=== PATIENT | male | born 1940 | race Caucasian/White ===

== ENCOUNTER → 2017-12-24 09:13 | Outpatient (CLI) | payer MEDICARE, SELFPAY ==
--- NOTE | 2017-12-24 09:21 | RAD_ITS ---
STUDY: X-RAY - LEFT SHOULDER REASON FOR EXAM: Male, 77 years old. Pain following recent fall. TECHNIQUE: 4 view(s) of the shoulder. COMPARISON: None. FINDINGS: There is mild degenerative arthrosis of the glenohumeral articulation. There is no widening of the coracoclavicular distance. There is widening of the AC joint, but without displacement of the clavicle or widening of the coracoclavicular distance, consistent with a Type II acromioclavicular joint separation. Normal acromion. Anchors are seen in the humeral head most likely secondary to prior rotator cuff surgery. Normal humeral head and visualized proximal humerus. The soft tissue structures are unremarkable. Normal visualized pulmonary apex. RAD/Shoulder min 2 Views IMPRESSION: Degenerative changes. 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 Electronically Signed: Riky Knapp MD at 12:51 EST Tel [phone], Service support ,
== END ==
PROVIDERS: Family Provider Family Medicine; PCP Family Medicine; Visit Provider Family Medicine
DX: S43.112A Subluxation of left acromioclavicular joint, initial encounter (principal); S46.012A Strain of muscle(s) and tendon(s) of the rotator cuff of left shoulder, initial encounter; S40.012A Contusion of left shoulder, initial encounter; W19.XXXA Unspecified fall, initial encounter; M19.012 Primary osteoarthritis, left shoulder
CPT/HCPCS: 73030

== ENCOUNTER → 2018-04-04 09:30 | Outpatient (CLI) | payer MEDICARE, SELFPAY ==
[2018-04-04 12:31] LABS: Microalbumin,Random Urine 8.6 mg/L (NO RANGE EST.); Microalbumin:Creatinine Ratio 5.6 mg/g CRE (<30 mg/g CRE)
[2018-04-04 12:41] LABS: Anion Gap 7 (5-15); BUN 23 mg/dL (7-18); BUN/Creat Ratio 24.9 RATIO (10-20); Calcium,Total 8.6 mg/dL (8.5-10.1); Chloride 107 mmol/L (98-107); Cholesterol 167 mg/dL (200); Creatinine, Serum 0.92 mg/dL (0.70-1.30); EST Glomerular Filtration Rate 84 mL/min (>60); Est Glom Filt Rate - Afr Amer 102 mL/min (>60); Glucose 91 mg/dL (74-106); High Density Lipoprotein 32 mg/dL; PSA,Total - Annual Screen 1.92 ng/mL (0.00-4.00); Potassium 4.1 mmol/L (3.5-5.1); Sodium Level 140 mmol/L (136-145); Triglycerides 128 mg/dL; Very Low Density Lipoprotein 26 mg/dL (5-40)
== END ==
PROVIDERS: Family Provider Family Medicine; PCP Family Medicine; Visit Provider Family Medicine
DX: Z12.5 Encounter for screening for malignant neoplasm of prostate (principal); I10 Essential (primary) hypertension
CPT/HCPCS: 36415; 80048; 80061; 82043; 82570; 84153; G0103

== ENCOUNTER → 2018-07-12 15:24 | Outpatient (CLI) | payer MEDICARE, SELFPAY | PROVIDERS: Family Provider Family Medicine; PCP Family Medicine; Visit Provider Family Medicine | DX: S46.811A Strain of other muscles, fascia and tendons at shoulder and upper arm level, right arm, initial encounter (principal); X58.XXXA Exposure to other specified factors, initial encounter; M19.011 Primary osteoarthritis, right shoulder | CPT/HCPCS: 73221 ==

== ENCOUNTER → 2018-09-26 14:01 | Outpatient (CLI) | payer MEDICARE, SELFPAY ==
[2018-09-26 15:57] LABS: PSA,Total- Diagnostic 2.48 ng/mL (0.0-4.0)
[2018-09-28 11:28] LABS: PSA, Free 0.04 ng/mL; PSA, Free % 2.1 % (.); PSA, Total Ultrasensitive 1.9 ng/mL (0.0-4.0)
== END ==
PROVIDERS: Family Provider Family Medicine; PCP Family Medicine; Visit Provider Family Medicine
DX: Z85.46 Personal history of malignant neoplasm of prostate (principal)
CPT/HCPCS: 36415; 84153; 84154

== ENCOUNTER → 2019-10-09 12:18 | Outpatient (CLI) | payer MEDICARE, SELFPAY ==
[2019-10-09 14:36] LABS: Absolute Neutrophil Count 3.7 X10^3/uL (2.0-7.7); Basophil# 0.04 X10^3/uL; Basophil% 0.6 % (0-1); Eosinophil# 0.16 X10^3/uL; Eosinophils% 2.5 % (0-5); Hematocrit 46.1 % (40-54); Hemoglobin 15.7 g/dL (13.0-16.5); Lymphocyte % 29.5 % (19-41); Mean Corp Hgb Conc 34.1 g/dL (32-36); Mean Corpuscular Hgb 31.9 pg (27.0-32.0); Mean Corpuscular Volume 93.7 fL (80-94); Mean Platelet Vol. 10.1 fl (6.2-12.0); Monocyte# 0.58 X10^3/uL; NRBC Flagged by Analyzer 0 % (0-5); Neutrophil # 3.74 X10^3/uL (2.7-7.7); Neutrophil % 58.2 % (47-70); Platelet Count 307 K/mm3 (150-450); RBC Distribution Width CV 12.6 % (11.6-14.6); RBC Distribution Width SD 43.4 fl (35.1-43.9); Red Blood Count 4.92 M/mm3 (4.6-6.2); White Blood Count 6.4 K/mm3 (4.4-11.0)
[2019-10-09 14:40] LABS: Microalbumin,Random Urine 5.4 mg/L (NO RANGE EST.)
[2019-10-09 15:20] LABS: ALB/GLOB Ratio 1.1 RATIO (0.9-2.4); AST(SGOT) 18 U/L (15-37); Alanine Aminotransfer ALT/SGPT 20 U/L (16-61); Albumin, Serum 3.8 g/dL (3.2-5.0); Alkaline Phosphatase 87 U/L (45-117); Anion Gap 9 (5-15); BUN 17 mg/dL (7-18); BUN/Creat Ratio 17.7 RATIO (10-20); Chloride 108 mmol/L (98-107); Creatinine, Serum 0.96 mg/dL (0.70-1.30); EST Glomerular Filtration Rate 80 mL/min (>60); Est Glom Filt Rate - Afr Amer 97 mL/min (>60); Globulin 3.6 g/dL (2.2-4.2); Glucose 79 mg/dL (74-106); PSA,Total- Diagnostic 3.63 ng/mL (0.0-4.0); Potassium 3.7 mmol/L (3.5-5.1); Protein, Total 7.4 g/dL (6.4-8.2); Sodium Level 141 mmol/L (136-145)
== END ==
PROVIDERS: Family Provider Family Medicine; PCP Family Medicine; Referring Provider Family Medicine; Visit Provider Family Medicine
DX: I10 Essential (primary) hypertension (principal); C61 Malignant neoplasm of prostate
CPT/HCPCS: 36415; 80053; 82043; 84153; 85025

== ENCOUNTER → 2020-03-14 10:06 | Outpatient (CLI) | payer MEDICARE, SELFPAY ==
[2020-03-14 12:19] LABS: PSA,Total- Diagnostic 4.54 ng/mL (0.0-4.0)
== END ==
PROVIDERS: PCP Family Medicine; Referring Provider Urology; Visit Provider Urology
DX: C61 Malignant neoplasm of prostate (principal)
CPT/HCPCS: 36415; 84153

== ENCOUNTER → 2020-04-02 12:26 | Outpatient (CLI) | payer MEDICARE, SELFPAY ==
--- NOTE | 2020-04-02 12:32 | CT_ITS ---
STUDY: CT ABDOMEN AND PELVIS WITH CONTRAST REASON FOR EXAM: Male, 80 years old. ELEVATED PSA -- BRACHYTHERAPY X15 YEARS AGO -- SURG-L4/L5 DISCECTOMY RADIATION DOSAGE (If Supplied By Facility): CTDIvol = ( 17.14 ) mGy, DLP = ( 1089.15 ) mGycm TECHNIQUE: Transaxial images were obtained from the dome of the diaphragm to the symphysis pubis without oral contrast. IV 100mL Isovue-300 was administered. Sagittal and coronal images were reconstructed. Individualized dose optimization techniques were used for this CT. COMPARISON: None. FINDINGS: Minimal increased linear markings in the posterior medial segments of both lower lobes suggestive of mild scarring. Coronary artery calcification. There is decreased attenuation of the liver consistent with steatosis. Normal gallbladder and extrahepatic biliary system. Normal spleen. Normal pancreas. Normal bilateral adrenal glands. Normal right kidney. Normal left kidney. Normal visualized stomach. Normal small intestine. There are multiple colonic diverticula consistent with diverticulosis. The appendix is visualized and appears normal. There is scattered atherosclerotic calcification of the abdominal aorta and major visceral branches, without a demonstrated aneurysm. Normal inferior vena cava. Normal retroperitoneum. Mild degree of diffuse bladder wall thickening although the urinary bladder is not completely distended. The prostate is not enlarged. 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 There is a small umbilical hernia containing fat. Small benign-appearing bilateral inguinal lymph nodes. There are diffuse degenerative changes of the visualized lumbar spine. 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 Sigmoid diverticulosis. Bladder wall thickening although the bladder is not completely distended at this time. Electronically Signed: Riky Knapp, at 13:15 EDT , Service support ,
[2020-04-02 13:01] LABS: CREATININE FINGERSTICK 0.7 mg/dL (0.70-1.30)
== END ==
PROVIDERS: PCP Family Medicine; Referring Provider Urology; Visit Provider Urology
DX: C61 Malignant neoplasm of prostate (principal)
CPT/HCPCS: 74177; Q9967

== ENCOUNTER → 2020-04-08 10:26 | Outpatient (CLI) | payer MEDICARE, SELFPAY ==
--- NOTE | 2020-04-08 10:38 | NM_ITS ---
CLINICAL: 80-year-old male with reported history of carcinoma of the prostate. WHOLE BODY 99m Tc MDP RADIONUCLIDE BONE SCINTIGRAPHY COMPARISON: CT of the abdomen-pelvis report 04/02/2020 FINDINGS: Following the intravenous administration of 25.0 mCi of 99m Tc MDP, whole body bone images reveal: 1. Increased radiopharmaceutical concentration is identified in the sternoclavicular and acromioclavicular compartments of both shoulders, mid cervical spine posteriorly on the left and right, ninth thoracic vertebra posteriorly on the left, the right elbow, left wrist, knees bilaterally, fifth lumbar vertebra and sacrum, right midfoot, the right ankle, forefoot bilaterally. 2. Subtle increased tracer concentration is observed in the left posterior lateral 10th-11th ribs. 3. The remaining skeletal structures are scintigraphically unremarkable with normal-appearing renal images and urinary bladder activity identified. There is calcification of the costochondral junction. NM/Bone Scan Whole Body IMPRESSION: 1. The increase in radiopharmaceutical concentration defined in the left posterior lateral 10th-11th ribs is consistent with trauma-fracture. 2. Degenerative arthritis appears expressed in the cervical and thoracic spine, lumbar spine and sacrum, bilateral shoulders, right elbow, left wrist, right-left knees, the right mid foot, right ankle and forefoot bilaterally. 3. There is no definitive typical scintigraphic evidence of diffuse axial skeletal metastatic disease on the current examination. Electronically Signed: Mamadou Blunt DO at 19:52 EDT Tel , Service support ,
== END ==
PROVIDERS: PCP Family Medicine; Referring Provider Urology; Visit Provider Urology
DX: C61 Malignant neoplasm of prostate (principal)
CPT/HCPCS: 78306

== ENCOUNTER → 2020-06-20 14:25 | Outpatient (CLI) | payer MEDICARE, SELFPAY ==
[2020-06-20 17:56] LABS: PSA,Total- Diagnostic 5.55 ng/mL (0.0-4.0)
== END ==
PROVIDERS: PCP Family Medicine; Referring Provider Urology; Visit Provider Urology
DX: C61 Malignant neoplasm of prostate (principal)
CPT/HCPCS: 36415; 84153

== ENCOUNTER → 2020-07-09 13:50 | Outpatient (CLI) | payer MEDICARE, SELFPAY ==
--- NOTE | 2020-07-09 14:30 | PET_ITS ---
EXAMINATION: 18F Fluciclovine PET/CT CLINICAL HISTORY: A 80-year-old male with reported history of carcinoma of the prostate presenting for restaging examination. COMPARISON EXAMINATION: None available. PROCEDURE: The patient received an intravenous bolus injection of 9.96 mCi of Axumin (fluciclovine F-18) via the right hand, on the imaging table with the patient in the supine position followed by an intravenous normal saline flush. The patient in the supine position with arms above the head, CT scan for attenuation correction was performed immediately following the bolus injection and left up for 1-2 minutes. The PET scan acquisition was begun within 3-5 minutes following injection from mid thigh to the base of the skull. The total scan time was registered between 20-30 minutes. Axumin (fluciclovine F-18) injection is indicated for positron emission tomography PET imaging in men with suspected prostate cancer recurrence based on elevation of the serum prostatic surface antigen (PSA) levels following prior treatment intervention. HEIGHT: 66 inches. WEIGHT: 198 lbs. REFERENCE SUVs: LIVER: 13.1 BONE MARROW: 2.4 BLOOD POOL: 1.5 FINDINGS: Head/Neck: There is symmetric radiopharmaceutical concentration defined in the bilateral parotid and submandibular glands. Facilitated uptake is noted in the midline skull base associated with physiologic tracer distribution within the pituitary gland. CHEST: There is no quantitative scintigraphic evidence of abnormal increased metabolism within the context of the bilateral hemithorax pulmonary parenchyma, right and left hemithoracic pleural interface, mediastinal structures and thoracic perihilum. No definitive abnormal increased metabolism is noted on review of three axis reconstructions on meticulous inspection of the chest. Normal mediastinal and cardiac blood pool distribution of the radiopharmaceutical is defined. Pertinent chest CT findings are as follows. There is atherosclerotic calcification defined in the thoracic aorta without evidence of dilatation-aneurysm formation. Coronary arterial calcification is observed. Bilateral axillary soft tissue densities with fatty hilus are non-tracer active. Scattered mediastinal soft tissue demonstrates no evidence of increased fluciclovine uptake. There are no parenchymal densities-nodules observed in the right and left hemithorax with discernible increase in radiopharmaceutical concentration. Abdomen/Pelvis: Normal physiologic distribution of the radiopharmaceutical is apparent in the hepatic and splenic parenchyma, pancreas, pancreatic head-tail, both renal units, bladder and visualized intestinal tract. Pertinent abdomen and pelvis CT findings are as follows. Seed placement is defined within the prostate gland without evidence of facilitated 18-F fluciclovine uptake. Colonic diverticulosis is noted without evidence of diverticulitis. Bilateral subcentimeter inguinal soft tissue densities with fatty hilus reveal no evidence of increased radiotracer distribution. There is atherosclerotic calcification defined in the abdominal aorta without evidence of dilatation-aneurysm formation. Pelvic arterial calcification is demonstrated. Skeletal: Degenerative changes are noted in the cervical, thoracic and lumbar spine. There are no sclerotic, mixed sclerotic-lytic and/or primarily lytic changes defined in the appendicular and axial skeletal structures manifesting an increase in radiopharmaceutical uptake. PET/PET/CT Tumor Base -Thigh Subs IMPRESSION: 1. NEGATIVE EXAMINATION. There is no definitive quantitative scintigraphic evidence of recurrent-metastatic/viable neoplasm attributed to the patient?s known prostate carcinoma. (Katherine et al, Journal of Nuclear Medicine 55:1986, 2014). Electronic Signature Mamadou Blunt D.O. Electronically Signed: Mamadou Blunt DO at 10:18 EDT Tel , Service support ,
== END ==
PROVIDERS: PCP Family Medicine; Referring Provider Urology; Visit Provider Urology
DX: C61 Malignant neoplasm of prostate (principal)
CPT/HCPCS: 78815; A9588

== ENCOUNTER → 2020-10-10 11:27 | Outpatient (CLI) | payer MEDICARE, SELFPAY | PROVIDERS: PCP Family Medicine; Referring Provider Urology; Visit Provider Urology | DX: R97.20 Elevated prostate specific antigen [PSA] (principal) | CPT/HCPCS: 36415; 84153 ==

== ENCOUNTER 2020-11-04 05:09 | Day surgery (SDC) | payer MEDICARE, SELFPAY ==
[2020-10-29 14:08] VITALS: BMI 31.8
--- NOTE | 2020-11-04 | COLBX_PTH ---
PATIENT: EMPERATRIZ EPPS LOC: EN U#:[id number] AGE/SX: 80/M ROOM: RE11/04/[address]: Dr. Gregor Crowley MD : 1940 BED: DIS: 11/04/2020 SPEC #: [id number] RECD: 11/04/20 12:28 STATUS: SHERON MARRY #: [id number] ILYA: 11/04/20 00:[address]: Gregor Crowley DEPT: SURGICAL PATHOLOGY RECD BY: Kilo Ingram ENTERED: 11/04/20 12:29 SP TYPE: COLON BX OT DR: Dr. Anurag Dolan MD Tissues: Sigmoid colon biopsy Procedures: Surgery Specimen Level IV HEADER OPERATION: Colonoscopy (MAC) PRE-OP DIAGNOSIS: Colon polyps TISSUE SUBMITTED: Proximal sigmoid biopsy MICROSCOPIC DIAGNOSIS Proximal sigmoid colon, biopsy: Acute colitis. See comment. AM:scott 11/05/20 COMMENT Acute inflammatory cells increased in the mucosa; however, no cryptitis or crypt abscesses are seen. The inflammatory cells are present in the stroma surrounding the glands. Clinical correlation is suggested. MICROSCOPIC DESCRIPTION Slides are reviewed. GROSS DESCRIPTION Received in fixative is one container labeled with the patient's name and designated proximal sigmoid biopsy. The specimen consists of multiple irregular fragments of light riojas soft tissue that in aggregate measure 0.8 x 0.3 x 0.1 cm. The specimen is totally submitted in one cassette. / AM:rg 11/04/20 TC:2 CPT: 15290
[2020-11-04 05:42] VITALS: BP 127/76; PULSE 70; RESP 16; TEMP 36.6; O2SAT 95; BMI 31.6
--- NOTE | 2020-11-04 05:55 | PCM.HP.BLA ---
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 Is patient in pain?: No Allergies No Known Allergies Allergy (Verified 10/29/20 14:11) Medications aspirin 81 mg tablet,delayed release 81 mg PO DAILY 10/29/20 [History Confirmed 10/29/20] bisoprolol fumarate 5 mg tablet 2.5 mg PO DAILY tab 10/29/20 [History Confirmed 10/29/20] ipratropium bromide 0.03 % nasal spray 2 spray INTRANASAL ONCE ml 10/29/20 [History Confirmed 10/29/20] omeprazole 40 mg capsule,delayed release 40 mg PO DAILY cap 10/29/20 [History Confirmed 10/29/20] quinapril 20 mg tablet 20 mg PO DAILY tab 10/29/20 [History Confirmed 10/29/20] PFS Medical History (Updated 10/29/20 @ 14:[address] Gregor Crowley MD) Personal history of colonic polyps (Acute) Hemorrhoids (Acute) Rheumatoid arthritis (Acute) Arthritis (Acute) Osteoarthritis of left knee (Acute) Melnedrez's palsy (Acute) GERD (gastroesophageal reflux disease) (Acute) Hx of malignant neoplasm of prostate (Acute) Hypertension (Chronic) Benign prostate hyperplasia (Acute) Hypercholesterolemia (Acute) Sleep disorder (Acute) Surgical History (Updated 10/29/20 @ 14:06 by Megan Omalley) Hx of colonoscopy (Acute) Hx of hemorrhoidectomy (Acute) Hx of rotator cuff surgery (Acute) Hx of discectomy (Acute) Family History Brother Prostate cancer CVA (cerebral vascular accident) Brother Leukemia Father Hypertension Myocardial infarction Mother CHF (congestive heart failure) Social History (Updated 10/29/20 @ 14:[address] Gregor Crowley MD) Smoking Status: Never smoker second hand exposure: No alcohol intake: current alcohol intake frequency: a few times a month substance use type: does not use caffeine: Yes what type of physical activity do you participate in: bicycling frequency: 3-4 times per week HPI HPI HPI: EMPERATRIZ EPPS, is a 80 M who presents to the office today for surgical consultation regarding surveillance colonoscopy. Patient is 80 years of age. By verbal report he had a colonoscopy performed 2014. By report a polyp was identified at that time. The patient currently does not have any bright red blood per rectum or melena. No abdominal pain. 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 He is very active. He is enjoying a good quality of life. He thinks his paternal grandfather had colon cancer. The patient is referred by Dr. Anurag Dolan and a written copy of my surgical consult and recommendations will return to him HPI HPI HPI: EMPERATRIZ EPPS, is a 80 M who presents to the office today for ROS General General: No weight change, appetite, fatigue, colon cancer or breast cancer Endo Endocrine: No thyroid disease, diabetes mellitus, thyroid cancer, Hair loss, heat intolerance or cold intolerance Skin Skin: No rash or changing moles Musc Musculoskeletal: Yes arthritis and rheumatoid arthritis; no back problems, gout or joint pain Cardio Cardiovascular: Yes high blood pressure; no murmur, pacemaker, heart disease, atrial fibrillation, heart attack, heart stent, palpitations, shortness of breat with exertion or chest pain Psych Psychiatric: No depression, anxiety or hearing voices Resp Respiratory: No shortness of breath, No sleep apnea, No cough, No COPD, No asthma, No emphysema, No wheezing Gastro Gastrointestinal: No abdominal pain, No nausea or vomiting, No diarrhea, No constipation, No blood in stool, Yes acid reflux, Yes hemorrhoids, No ulcers, No gallbladder problem, No black,tarry stools Armani Hematologic: No blood thinners, No blood disorders, No bleeding, No anemia, No blood clots Exam Const General: cooperative, healthy appearing, comfortable, no acute distress Nutritional Appearance: obese Orientation: alert, awake [facility] Head: normal to inspection Resp Effort & Inspection: normal respiratory effort Auscultation: clear to auscultation bilaterally Cardio Rate: regular rate Rhythm: regular rhythm Heart Sounds: no murmurs GI Palpation: soft, no hepatosplenomegaly Auscultation: normal bowel sounds Skin General: no rashes or lesions noted Neuro Cognition: normal cognition Extrem General: no calf tenderness Psych Thought Process: normal Assessment & Plan Problems 1. Personal history of colonic polyps Z86.010 Plan 80-year-old gentleman enjoying a very high quality of life. Reported personal history of colon polyp. I propose for him a colonoscopy with possible biopsy or polypectomy as indicated. He is aware of the technique, benefit, risk, alternatives. He has had an opportunity to ask and have questions answered. Previous colonoscopy was January 2015 by verbal report. Diverticulosis was identified. It was felt to be a sigmoid polyp was identified. Patient has a history of prostate cancer. April 02, 2020 at [facility] scan was obtained showing metallic radiation seen within a nonenlarged prostate. Sigmoid diverticulosis. I propose for the patient a colonoscopy with possible biopsy or polypectomy as indicated. He is aware of the technique, benefit, risk and alternatives. He has had an opportunity to ask and have questions answered. We will schedule procedure at his discretion. He performed well under previous IV sedation. Copy: Dr. Anurag Crowley M.D., F.A.C.S. I have re-examined the patient. There are no clinical changes since date of exam. Procedure Criteria Procedure Type: Elective COVID Risk Discussion: The surgeon/proceduralist and patient have discussed in detail the risk of exposure to and/or potential harm posed by the COVID-19 virus with having a surgery/procedure at this time versus the risk of delaying the surgery/procedure. It is not possible to know either the risk of delaying the surgery or procedure or chance of getting an infection with perfect accuracy, but a joint decision was made between the patient and the surgeon/proceduralist to proceed at this time with the scheduled surgery/procedure as indicated on the consent form.
[2020-11-04] MEDS: Lactated Ringers 1,000 ML 100 ML IV (05:58)
[2020-11-04 06:45] VITALS: BP 100/68; BP 127/76; PULSE 65; RESP 16; TEMP 36.2; O2SAT 95
[2020-11-04 06:50] VITALS: BP 103/71; BP 127/76; PULSE 64; RESP 16; O2SAT 95
--- NOTE | 2020-11-04 06:50 | OP.COLON_ITS ---
Patient Name: Sal Kaur Procedure Date: 11/04/2020 6:12 AM Date of : 1940 Age: 80 Procedure: Colonoscopy Indications: High risk colon cancer surveillance: Personal history of colonic polyps Providers: Gregor Crowley MD Referring MD: Anurag Dolan Medicines: See the Anesthesia note for documentation of the administered medications Patient Profile: Last Colonoscopy: January 2015. Complications: No immediate complications. Procedure: Pre-Anesthesia Assessment: - Prior to the procedure, a History and Physical was performed, and patient medications and allergies were reviewed. The patient's tolerance of previous anesthesia was also reviewed. The risks and benefits of the procedure and the sedation options and risks were discussed with the patient. All questions were answered, and informed consent was obtained. Prior Anticoagulants: The patient has taken no previous anticoagulant or antiplatelet agents. ASA Grade Assessment: II - A patient with mild systemic disease. After reviewing the risks and benefits, the patient was deemed in satisfactory condition to undergo the procedure. After I obtained informed consent, the scope was passed under direct vision. Throughout the procedure, the patient's blood pressure, pulse, and oxygen saturations were monitored continuously. The colonoscope was introduced through the anus and advanced to the cecum, identified by appendiceal orifice and ileocecal valve. The colonoscopy was performed without difficulty. The patient tolerated the procedure well. The quality of the bowel preparation was good. The ileocecal valve and the appendiceal orifice were photographed. Scope In: 6:29:16 AM Scope Withdrawal Time 0 hours 9 minutes 34 seconds Scope Out: 6:41:44 AM Total Procedure Duration Time 0 hours 12 minutes 28 seconds Findings: The digital rectal exam findings include non-thrombosed external hemorrhoids, non-thrombosed internal hemorrhoids, internal hemorrhoids that prolapse with straining, but spontaneously regress to the resting position (Grade II) and flat/ absent prostate. Multiple diverticula were found in the sigmoid colon and descending colon. A localized area of mildly erythematous mucosa was found in the proximal sigmoid colon. This was biopsied with a cold forceps for histology. The exam was otherwise without abnormality. Impression: - Non-thrombosed external hemorrhoids, non-thrombosed internal hemorrhoids, internal hemorrhoids that prolapse with straining, but spontaneously regress to the resting position (Grade II) and a surgically absent prostate found on digital rectal exam. - Diverticulosis in the sigmoid colon and in the descending colon. - Erythematous mucosa in the proximal sigmoid colon. Biopsied. - The examination was otherwise normal. Recommendation: - Discharge patient to home. - Resume previous diet. - Continue present medications. - Repeat colonoscopy is not recommended due to current age (66 years or older) for screening purposes. - Telephone my office for pathology results in 1 week. Procedure Code(s): --- Professional --- 26997, Colonoscopy, flexible; with biopsy, single or multiple Diagnosis Code(s): --- Professional --- Z86.010, Personal history of colonic polyps Z90.79, Acquired absence of other genital organ(s) K64.1, Second degree hemorrhoids K64.4, Residual hemorrhoidal skin tags K63.89, Other specified diseases of intestine K57.30, Diverticulosis of large intestine without perforation or abscess without bleeding CPT copyright 2017 [employer]. All rights reserved. The codes documented in this report are preliminary and upon java developer consultant review may be revised to meet current compliance requirements. Gregor Crowley MD 11/04/2020 6:49:29 AM This report has been signed electronically. Number of Addenda: 0 Note Initiated On: 11/04/2020 6:12 AM
--- NOTE | 2020-11-04 06:50 | OP.CCLET_ITS ---
11/04/2020 Anurag Dolan [address] [facility] [address] [place] [address] Re : Colonoscopy procedure for Sal Kaur Dear Dr. Dolan This procedure was performed on Wednesday, November 04, 2020. My impressions and recommendations are as follows: Impressions : - Non-thrombosed external hemorrhoids, non-thrombosed internal hemorrhoids, internal hemorrhoids that prolapse with straining, but spontaneously regress to the resting position (Grade II) and a surgically absent prostate found on digital rectal exam. - Diverticulosis in the sigmoid colon and in the descending colon. - Erythematous mucosa in the proximal sigmoid colon. Biopsied. - The examination was otherwise normal. Recommendations : - Discharge patient to home. - Resume previous diet. - Continue present medications. - Repeat colonoscopy is not recommended due to current age (66 years or older) for screening purposes. - Telephone my office for pathology results in 1 week. My findings are described in the full procedure note, which is enclosed. If I can be of further assistance, please feel free to contact me at Doctor phone number(s): Work: . Sincerely, Gregor Crowley MD 11/04/2020 6:49:29 AM This report has been signed electronically.
[2020-11-04 06:55] VITALS: BP 103/61; BP 127/76; PULSE 66; RESP 16; O2SAT 93
[2020-11-04 07:00] VITALS: BP 105/94; BP 127/76; PULSE 65; RESP 16; TEMP 36.7; O2SAT 93
[2020-11-04 07:25] VITALS: BP 127/76
== END 2020-11-04 07:30 | disposition home or self-care (01) ==
LOC: EN 05:09 → AC 05:11
PROVIDERS: PCP Family Medicine; Referring Provider Family Medicine; Visit Provider Surgery
PROC: 0DJD8ZZ Inspection of Lower Intestinal Tract, Via Natural or Artificial Opening Endoscopic (ICD-10-PCS; CPT 45378; principal; 2020-11-04 06:25)
DX: Z12.11 Encounter for screening for malignant neoplasm of colon (principal); Z86.010 Personal history of colon polyps; K64.1 Second degree hemorrhoids; K64.4 Residual hemorrhoidal skin tags; K57.30 Diverticulosis of large intestine without perforation or abscess without bleeding; K52.9 Noninfective gastroenteritis and colitis, unspecified; K21.9 Gastro-esophageal reflux disease without esophagitis; Z90.79 Acquired absence of other genital organ(s); Z85.46 Personal history of malignant neoplasm of prostate; Z80.0 Family history of malignant neoplasm of digestive organs; I10 Essential (primary) hypertension; E78.00 Pure hypercholesterolemia, unspecified; M06.9 Rheumatoid arthritis, unspecified; E66.9 Obesity, unspecified; Z68.31 Body mass index [BMI] 31.0-31.9, adult; Z79.82 Long term (current) use of aspirin; Z79.899 Other long term (current) drug therapy; Z20.828 Contact with and (suspected) exposure to other viral communicable diseases
CPT/HCPCS: 45380; 87426; 88305; C9803; J7120; J2405

== ENCOUNTER → 2021-02-12 11:52 | Outpatient (CLI) | payer MEDICARE, SELFPAY ==
[2021-02-12 15:50] LABS: PSA,Total- Diagnostic 5.84 ng/mL (0.0-4.0)
== END ==
PROVIDERS: PCP Family Medicine; Referring Provider Urology; Visit Provider Urology
DX: C61 Malignant neoplasm of prostate (principal)
CPT/HCPCS: 36415; 84153

== ENCOUNTER → 2021-04-23 13:48 | Outpatient (CLI) | payer MEDICARE, SELFPAY ==
[2021-04-14 15:59] VITALS: BMI 32.3
--- NOTE | 2021-04-23 13:51 | EKG12_ITS ---
Test Reason : PRE OP Blood Pressure : / mmHG Vent. Rate : 075 BPM Atrial Rate : 075 BPM P-R Int : 178 ms QRS Dur : 082 ms QT Int : 384 ms P-R-T Axes : 046 -01 022 degrees QTc Int : 428 ms Sinus rhythm with frequent Premature ventricular complexes Otherwise normal ECG Confirmed by JUVENCIO ANDREW, SHANNEN ([id number]), story editor KORTNEY MYERS ([id number]) on 04/24/2021 11:17:14 AM Referred By: Charles Bennett Confirmed By:SHANNEN HENNING MD
== END ==
PROVIDERS: PCP Family Medicine
DX: C43.71 Malignant melanoma of right lower limb, including hip (principal)
CPT/HCPCS: 93005

== ENCOUNTER 2021-06-01 18:59 | Emergency (ER) | payer MEDICARE, SELFPAY ==
[2021-05-29 14:37] VITALS: BMI 31.8
[2021-06-01] VITALS (10 sets, daily range): BP systolic 92–135; BP diastolic 50–85; PULSE 69–84; RESP 15–20; TEMP 36.8–37.9; O2SAT 95–99; BMI 31.3
--- NOTE | 2021-06-01 19:24 | EKG12_ITS ---
Test Reason : DYSRHYTHMIA Blood Pressure : / mmHG Vent. Rate : 078 BPM Atrial Rate : 078 BPM P-R Int : 168 ms QRS Dur : 086 ms QT Int : 384 ms P-R-T Axes : 041 -02 -05 degrees QTc Int : 437 ms Sinus rhythm with Premature atrial complexes Otherwise normal ECG Confirmed by NESTOR ANDREW, BEE ([id number]), dictionary editor KIMBERLY SANCHEZ ([id number]) on 06/04/2021 1:24:49 PM Referred By: MONA Confirmed By:BEE BAEZ MD
--- NOTE | 2021-06-01 19:26 | EX.ED.DYSGE1 ---
HPI History of Present Illness Chief Complaint: Fever Informant: patient and family Onset/Context/Timing Onset: Today Current Severity: Mild Maximum Severity: Mild Narrative Narrative: 81-year-old male being treated at [facility] for melanoma. He had a melanoma resected from his right foot. He did have metastatic spread regionally to his lymph nodes. He had a right inguinal lymph node resection. This was in early April. He has since developed an infection in his right groin. Was hospitalized for 5 days at and was discharged this past Wednesday. He is currently on oral Bactrim. He started getting a fever and feeling worse again today. He denies any cough. He denies any shortness of breath. He denies any abdominal pain. He denies any dysuria. He denies any diarrhea. Prior similar symptoms: Yes Recent Illness/Hospitalization: Yes PFSH PFS Medical History Arthritis Melendrez's palsy Benign prostate hyperplasia GERD (gastroesophageal reflux disease) Hemorrhoids Hx of malignant neoplasm of prostate Hypercholesterolemia Hypertension Malignant melanoma of right heel Osteoarthritis of left knee Personal history of colonic polyps Regional lymph node metastasis present Rheumatoid arthritis Sleep disorder Home Medications aspirin 81 mg tablet,delayed release 81 mg PO DAILY 10/29/20 [History Last Taken 10/28/20] bisoprolol fumarate 5 mg tablet 2.5 mg PO QHS tab 10/29/20 [History Last Taken Unknown] ipratropium bromide 21 mcg (0.03 %) nasal spray 2 spray INTRANASAL PRN PRN ml 10/29/20 [History Last Taken Unknown] omeprazole 40 mg capsule,delayed release 40 mg PO DAILY cap 10/29/20 [History Last Taken Unknown] quinapril 20 mg tablet 20 mg PO DAILY tab 10/29/20 [History Last Taken Unknown] Prostagenics 1 cap PO TID 10/31/20 [History Last Taken Unknown] multivitamin with minerals 1 ea PO DAILY 10/31/20 [History Last Taken Unknown] sulfamethoxazole 800 mg-trimethoprim 160 mg tablet 1 tab PO BID 05/29/21 [History Last Taken Unknown] tramadol 50 mg tablet 50 mg PO Q6H PRN 05/29/21 [History Last Taken Unknown] Allergy/AdvReac Type Severity Reaction Status Date / Time No Known Allergies Allergy Verified 05/29/21 14:48 Family History Brother Prostate cancer CVA (cerebral vascular accident) Brother Leukemia Father Hypertension Myocardial infarction Mother CHF (congestive heart failure) Surgical History Hx of colonoscopy Hx of discectomy Hx of hemorrhoidectomy Hx of rotator cuff surgery Social History Smoking Status: Never smoker second hand exposure: No alcohol intake: current alcohol intake frequency: a few times a month details: OCCASIONALLY substance use type: does not use well-balanced diet: about half the time caffeine: Yes Type: coffee Number of servings: 1 eating out: 1-3 times/week what type of physical activity do you participate in: bicycling frequency: 3-4 times per week duration: 15-30 minutes/day melany/synagogue: Anabaptism seatbelt use: always do you feel safe at home: Yes ROS ROS ED ROS Narrative Fever. Review of Systems ROS Unobtainable: Denies due to encephalopathy Constitutional Constitutional ED: Reports fever(s) Eyes Eyes: Denies change in vision ENT ENT ED: Denies ear pain Cardiovascular Cardiovascular: Denies chest pain Respiratory/Chest Respiratory/Chest: Denies cough or dyspnea Gastrointestinal Gastrointestinal: Denies abdominal pain, diarrhea, nausea or vomiting Genitourinary Genitourinary ED: Denies dysuria Musculoskeletal Musculoskeletal: Denies myalgias Integumentary Denies rash Neurologic Neurologic: Denies headache(s) Psychiatric Psychiatric: Denies depression Endocrine Endocrinology: Denies polyuria Allergic/Immunologic Allergic/Immunologic ED: Denies urticaria EXAM Physical Exam Narrative Exam Narrative: Older male no acute distress. Vital signs stable temperature 100.2. He does not look septic or toxic. He does not look dehydrated. HEENT exam unremarkable. Moist remembers. Neck nontender. Lungs clear to auscultation bilaterally. Heart regular rhythm rate in the 80s. Abdomen soft nontender. Normal bowel sounds no peritoneal signs. Moving all 4 extremities. He has a wound VAC on his right heel appears to be healing nicely there was a prior melanoma resection. His right groin has mild redness and tenderness when he has a known infection. Neurologically is awake and alert. Const Vital Signs: 06/01/21 18:59 06/01/21 19:02 06/01/21 19:17 Temperature 100.2 F H 100.2 F H Temperature Source Temporal Temporal Pulse Rate 84 84 Respiratory Rate 20 H 20 H Respiratory Effort Normal Non-Labored Respiratory Pattern Normal Blood Pressure 134/80 H 134/80 H Blood Pressure Mean 98 98 Pulse Ox 95 95 Oxygen Delivery Method Room Air Room Air 06/01/21 19:36 06/01/21 20:00 06/01/21 20:02 Temperature 100.3 F H 100.1 F H Temperature Source Temporal Temporal Pulse Rate 78 79 79 Respiratory Rate 16 15 Respiratory Effort Respiratory Pattern Blood Pressure 135/77 H Blood Pressure Mean 96 Pulse Ox 99 99 99 Oxygen Delivery Method Room Air Room Air Room Air 06/01/21 21:00 06/01/21 21:33 06/01/21 22:00 Temperature 98.3 F 98.3 F 98.3 F Temperature Source Temporal Temporal Temporal Pulse Rate 70 69 Respiratory Rate 15 16 Respiratory Effort Respiratory Pattern Blood Pressure 111/75 92/67 Blood Pressure Mean 87 75 Pulse Ox 99 99 Oxygen Delivery Method Room Air Room Air 06/01/21 22:24 06/01/21 23:00 Temperature 98.3 F Temperature Source Temporal Pulse Rate 71 Respiratory Rate 16 Respiratory Effort Respiratory Pattern Blood Pressure 116/50 L 116/85 H Blood Pressure Mean 72 95 Pulse Ox 95 Oxygen Delivery Method Room Air Positive well nourished and well developed General Appearance ED: well developed HEENT Reports moist mucous membranes trauma; Negative for tenderness Eyes PERRL and EOMs intact bilaterally Neck no lymphadenopathy, supple and no JVD General: Negative for tenderness Chest Wall inspection of chest normal and palpation of chest normal Resp normal respiratory effort and clear to auscultation bilaterally Cardio regular rate, regular rhythm, S1 normal heart sound, S2 normal heart sound and no murmurs GI normal to inspection, nondistended, normoactive bowel sounds, non-tender, non-distended and no masses Auscultation: normoactive bowel sounds Palpation: soft; Negative for tender Back/Spine no CVA tenderness Extremity normal to inspection Extremity Narrative: Right groin mildly tender. There is a surgical drain in place. There is a wound VAC on his right heel. Calves are nontender without edema or cords. Neuro oriented x3 and CN's II-XII intact bilaterally Sensorium / Orientation: alert; Negative for lethargic or stuporous Motor Exam: strength 5/5 throughout Psych mental status grossly normal Skin no rashes or lesions noted MDM MDM MDM Narrative Medical decision making narrative: 81-year-old male with a fever undergoing a septic work-up. I receive IV fluids and p.o. Tylenol. He has had a recent melanoma resection with an infected lymph node surgical site in his right groin. Repeat exam at 1144 patient is doing well. We discussed all his test results. He has a follow-up appointment scheduled with [facility] on Wednesday. Impression: Fever uncertain etiology History of right groin infection status post lymph node resection History of melanoma resection right foot Lab Data Attestation: I reviewed the patient's lab results. Lab results narrative: Labs are pretty unremarkable. White count of 6.9. Hemoglobin 12.8. PT/INR unremarkable. Electrolytes sodium 131. Normal gap is 7. Creatinine 1.31. Liver enzymes are normal. Lactic acid is normal at 1.2 and UA is normal. Chest x-ray unremarkable. Labs: Laboratory Results - last 24 hr 06/01/21 06/01/21 06/01/21 17:30 19:20 19:20 WBC 6.9 RBC 4.09 L Hgb 12.8 L Hct 37.6 L MCV 91.9 MCH 31.3 MCHC 34.0 RDW Std Deviation 42.9 RDW Coeff of Halley 12.7 Plt Count 454 H MPV 8.6 Immature Gran % (Auto) 0.300 Neut % (Auto) 79.7 H Lymph % (Auto) 11.5 L Lasalle % (Auto) 7.9 Eos % (Auto) 0.3 Baso % (Auto) 0.3 Absolute Neuts (auto) 5.5 Absolute Lymphs (auto) 0.79 L Nucleated RBC % 0 PT 14.4 INR 1.2 APTT 36.2 Sodium 131 L Potassium 4.1 Chloride 100 Carbon Dioxide 24.0 Anion Gap 7 BUN 14 Creatinine 1.31 H Estim Creat Clear Calc 40.59 Est GFR (MDRD) Af Amer 68 Est GFR (MDRD) Non-Af 56 L BUN/Creatinine Ratio 10.7 Glucose 126 H Lactic Acid Calcium 8.6 Total Bilirubin 0.40 AST 24 ALT 39 Alkaline Phosphatase 103 Total Protein 7.4 Albumin 3.1 L Globulin 4.3 H Albumin/Globulin Ratio 0.7 L Urine Color Urine Clarity Urine pH Ur Specific Kincaid Urine Protein Urine Glucose (UA) Urine Ketones Urine Occult Blood Urine Nitrite Urine Bilirubin Urine Urobilinogen Ur Leukocyte Esterase Urine RBC Urine WBC Ur Squamous Epith Cells Urine Bacteria Urine Mucus 06/01/21 06/01/21 19:20 20:10 WBC RBC Hgb Hct MCV MCH MCHC RDW Std Deviation RDW Coeff of Halley Plt Count MPV Immature Gran % (Auto) Neut % (Auto) Lymph % (Auto) Lasalle % (Auto) Eos % (Auto) Baso % (Auto) Absolute Neuts (auto) Absolute Lymphs (auto) Nucleated RBC % PT INR APTT Sodium Potassium Chloride Carbon Dioxide Anion Gap BUN Creatinine Estim Creat Clear Calc Est GFR (MDRD) Af Amer Est GFR (MDRD) Non-Af BUN/Creatinine Ratio Glucose Lactic Acid 1.2 Calcium Total Bilirubin AST ALT Alkaline Phosphatase Total Protein Albumin Globulin Albumin/Globulin Ratio Urine Color Yellow Urine Clarity Sl. Cloudy Urine pH 7.0 Ur Specific Kincaid 1.010 Urine Protein 15 H Urine Glucose (UA) Normal Urine Ketones Negative Urine Occult Blood 25 H Urine Nitrite Negative Urine Bilirubin Negative Urine Urobilinogen Normal Ur Leukocyte Esterase Negative Urine RBC 0 SEEN Urine WBC 0-5 SEEN Ur Squamous Epith Cells 0-5 SEEN Urine Bacteria RARE Urine Mucus 0 SEEN Radiography Chest X-Ray - ED: 1 View, Read by ED Physician, Read by Radiologist, Heart, Lungs, Mediastinum, Bony Structures, No Acute Disease and Chronic Changes Diagnostic Testing: Radiology Impression Chest X-Ray 06/01/21 19:38 IMPRESSION: No radiographic evidence of acute cardiopulmonary disease. at 2006 Reported and signed by: Devin Castro MD Electronically Signed: Devin Castro MD at 20:05 EDT Tel , Service support , Rhythm Strip Rhythm Strip: Sinus Rhythm Rate: 78 Ectopy: PAC(s) EKG Initial EKG: Attestation: I personally reviewed and interpreted this EKG as follows: Interpretation: Sinus Rhythm and No Acute Injury Pattern Comments: Sinus rhythm with PACs. Rate is 78. No acute signs of MS or ischemia. No old EKG available for comparison. Prior EKG tracings: not available for review Prior: No Prior Discharge Plan Triage Chief Complaint: Fever ED Provider: Tesfaye Mckeon Dx/Rx/DC Orders Instructions: ED FUO Adult Prescriptions: No Action omeprazole 40 mg capsule,delayed release(DR/EC) 40 mg PO DAILY RF: 0 bisoprolol fumarate 5 mg tablet 2.5 mg PO QHS RF: 0 ipratropium bromide 0.03 % spray,non-aerosol 2 spray INTRANASAL PRN PRN (Reason: Congestion) RF: 0 quinapril 20 mg tablet 20 mg PO DAILY RF: 0 aspirin [Adult Low Dose Aspirin] 81 mg tablet,delayed release (DR/EC) 81 mg PO DAILY RF: 0 tramadol 50 mg tablet 50 mg PO Q6H PRN (Reason: Pain) RF: 0 sulfamethoxazole-trimethoprim [Bactrim DS] 800-160 mg tablet 1 tab PO BID RF: 0 multivitamin with minerals 1 EACH tablet 1 ea PO DAILY RF: 0 Prostagenics 1 cap PO TID RF: 0 Primary Care Provider: Anurag Dolan Referrals: Anurag Dolan MD [Primary Care Provider] - As Needed Activity Restrictions/Additional Instructions: Plenty of fluids and rest. Tylenol for fever. Follow-up with your physician at on Wednesday. Return if feeling worse. Your test tonight looked real good. Disposition Disposition: Home, Self Care
[2021-06-01] MEDS: 0.9% Normal Saline 1,000 ML 999 ML IV (19:33)
[2021-06-01] MEDS: Acetaminophen 500 MG Tablet 1000 MG PO (19:33)
[2021-06-01 19:35] LABS: Absolute Lymphocyte Count 0.79 X10^3/uL (0.83-4.51); Absolute Neutrophil Count 5.5 X10^3/uL (2.0-7.7); Basophil# 0.02 X10^3/uL; Basophil% 0.3 % (0-1); Eosinophil# 0.02 X10^3/uL; Eosinophils% 0.3 % (0-5); Hematocrit 37.6 % (40-54); Hemoglobin 12.8 g/dL (13.0-16.5); Lymphocyte # 0.79 X10^3/ul (0.83-4.51); Lymphocyte % 11.5 % (19-41); Mean Corpuscular Hgb 31.3 pg (27.0-32.0); Mean Corpuscular Volume 91.9 fL (80-94); Mean Platelet Vol. 8.6 fl (6.2-12.0); Monocyte# 0.54 X10^3/uL; Monocyte% 7.9 % (0-10); NRBC Flagged by Analyzer 0 % (0-5); Neutrophil # 5.47 X10^3/uL (2.7-7.7); Neutrophil % 79.7 % (47-70); Platelet Count 454 K/mm3 (150-450); RBC Distribution Width CV 12.7 % (11.6-14.6); RBC Distribution Width SD 42.9 fl (35.1-43.9); Red Blood Count 4.09 M/mm3 (4.6-6.2); White Blood Count 6.9 K/mm3 (4.4-11.0)
--- NOTE | 2021-06-01 19:38 | RAD_ITS ---
HISTORY: fever EXAMINATION/TECHNIQUE: XR Chest 1 View: Portable upright AP chest x-ray COMPARISON: None FINDINGS: LINES/DEVICES: None. LUNGS: No consolidation, edema or effusion. No pneumothorax. MEDIASTINUM AND CARDIOVASCULAR STRUCTURES: Cardiac silhouette not enlarged. Central airways and mediastinal contour are unremarkable. BONES AND SOFT TISSUES: No acute bony abnormalities. RAD/Chest 1 View (Portable) IMPRESSION: No radiographic evidence of acute cardiopulmonary disease. at 2006 Reported and signed by: Devin Castro MD Electronically Signed: Devin Castro MD at 20:05 EDT Tel , Service support ,
[2021-06-01 19:46] LABS: ALB/GLOB Ratio 0.7 RATIO (0.9-2.4); AST(SGOT) 24 U/L (15-37); Alanine Aminotransfer ALT/SGPT 39 U/L (16-61); Albumin, Serum 3.1 g/dL (3.2-5.0); Alkaline Phosphatase 103 U/L (45-117); Anion Gap 7 (5-15); BUN 14 mg/dL (7-18); BUN/Creat Ratio 10.7 RATIO (10-20); Calcium,Total 8.6 mg/dL (8.5-10.1); Chloride 100 mmol/L (98-107); Creatinine, Serum 1.31 mg/dL (0.70-1.30); EST Glomerular Filtration Rate 56 mL/min (>60); Est Glom Filt Rate - Afr Amer 68 mL/min (>60); Estimated Creatinine Clearance 40.59 ml/min; Globulin 4.3 g/dL (2.2-4.2); Glucose 126 mg/dL (74-106); Potassium 4.1 mmol/L (3.5-5.1); Protein, Total 7.4 g/dL (6.4-8.2); Sodium Level 131 mmol/L (136-145)
[2021-06-01 19:51] LABS: International Normalized Ratio 1.2; Partial Thromboplast Time 36.2 Seconds (24.1-36.2); Prothrombin Time (Protime)PT. 14.4 SECONDS (11.7-14.9)
[2021-06-01 20:19] LABS: Lactic Acid 1.2 mmol/L (0.4-1.9)
[2021-06-01 20:23] LABS: Mucous, Urine 0 SEEN /hpf (<or=2+); Red Blood Cells-Urine 0 SEEN /hpf (0-5)
[2021-06-01 20:30] LABS: Color, Urine Yellow (Yellow); Glucose, Dipstick Normal (Normal); Ketone-Dipstick Negative (Negative); Leukocyte Esterase-Dipstick Negative /ul (Negative); Nitrite-Dipstick Negative (Negative); Occult Blood-Urine 25 /ul (Negative); Protein-Dipstick 15 mg/dl (Negative); Urine Bilirubin Dipstick Negative (Negative); Urine Clarity Sl. Cloudy (Clear); Urine Urobilinogen Normal (Normal)
[2021-06-01 20:43] LABS: Bacteria RARE /hpf (None Seen); Squamous Epithelial Cells - UA 0-5 SEEN /hpf (0-5); White Blood Cells 0-5 SEEN /hpf (0-5)
== END 2021-06-02 00:01 | disposition home or self-care (01) ==
PROVIDERS: Emergency Provider Emergency Medicine; PCP Family Medicine
DX: R50.9 Fever, unspecified (principal); I10 Essential (primary) hypertension; K21.9 Gastro-esophageal reflux disease without esophagitis; Z79.82 Long term (current) use of aspirin; Z79.899 Other long term (current) drug therapy
CPT/HCPCS: 71045; 80053; 81001; 83605; 85025; 85610; 85730; 87040; 87086; 93005; 96360; 96361; 99285; J7030; A4216

== ENCOUNTER 2021-06-19 09:48 | Day surgery (SDC) | payer MEDICARE, SELFPAY ==
[2021-06-10 09:47] VITALS: BMI 31.4
[2021-06-19] VITALS (9 sets, daily range): BP systolic 74–146; BP diastolic 51–76; PULSE 68–79; RESP 16–18; TEMP 36.1–36.4; O2SAT 94–98; BMI 30.3
--- NOTE | 2021-06-19 10:45 | PCM.HP.BLA ---
History and Physical Date of Admission: 06/19/21 Date of Service: 06/10/21 MR#:[id number]: EMPERATRIZ EPPS [facility] #:[id number]:1940 Provider:Rishi Franco/Sex: 81/M [facility] Int[facility] Vital Signs 06/10/21 09:44 06/10/21 09:47 Height 5 ft 6 in Weight: 188 lb BMI 30.3 31.4 BP 116/81 H Blood Pressure Location Rt brachial Position Sitting Respiration 16 Pulse 83 Pulse Source Monitor Temp 97.5 F L Temp Source Temporal Pulse Oximetry (%) 96 Oxygen Delivery Method room air Intake Visit Reasons: PORT PLACEMENT Chief Complaint: Discuss Port placement Dextrine Mixer Required: No Accompanied by: Daughter Is patient in pain?: No Allergies No Known Allergies Allergy (Verified 06/10/21 09:44) Medications aspirin 81 mg tablet,delayed release 81 mg PO DAILY 10/29/20 [History Confirmed 06/10/21] bisoprolol fumarate 5 mg tablet 2.5 mg PO QHS tab 10/29/20 [History Confirmed 06/10/21] ipratropium bromide 21 mcg (0.03 %) nasal spray 2 spray INTRANASAL PRN PRN ml 10/29/20 [History Confirmed 06/10/21] omeprazole 40 mg capsule,delayed release 40 mg PO DAILY cap 10/29/20 [History Confirmed 06/10/21] quinapril 20 mg tablet 20 mg PO DAILY tab 10/29/20 [History Confirmed 06/10/21] Prostagenics 1 cap PO TID 10/31/20 [History Confirmed 06/10/21] multivitamin with minerals 1 ea PO DAILY 10/31/20 [History Confirmed 06/10/21] acetaminophen 500 mg tablet 500 mg PO Q6H PRN 06/05/21 [History Confirmed 06/10/21] lidocaine-prilocaine 2.5 %-2.5 % topical cream 1 applic TOPICAL ONCE PRN 30 Days #30 g 06/05/21 [Rx Confirmed 06/10/21] PFSH Medical History Arthritis Melendrez's palsy Benign prostate hyperplasia GERD (gastroesophageal reflux disease) Hemorrhoids Hx of malignant neoplasm of prostate Hypercholesterolemia Hypertension Malignant melanoma of right heel Osteoarthritis of left knee Personal history of colonic polyps Regional lymph node metastasis present Rheumatoid arthritis Sleep disorder Surgical History History of root canal procedure Hx of colonoscopy Hx of discectomy Hx of hemorrhoidectomy Hx of rotator cuff surgery Family History Brother Prostate cancer CVA (cerebral vascular accident) Brother Leukemia Father Hypertension Myocardial infarction Mother CHF (congestive heart failure) Social History Smoking Status: Never smoker second hand exposure: No alcohol intake: current alcohol intake frequency: a few times a month details: OCCASIONALLY substance use type: does not use well-balanced diet: about half the time caffeine: Yes Type: coffee Number of servings: 1 eating out: 1-3 times/week what type of physical activity do you participate in: bicycling frequency: 3-4 times per week duration: 15-30 minutes/day melany/voodoo: Rastafari seatbelt use: always do you feel safe at home: Yes HPI HPI HPI: EMPERATRIZ EPPS, is a 81 M who presents to the office today for port placement due to malignant melanoma of the right heel with regional lymph node metastasis. Patient states he did suggest complete antibiotics on Wednesday due to infection in the groin were not the lymph nodes were taken. Patient currently has a wound VAC on his right heel states that it is healing well. Is seeing Dr. Souza for immunotherapy. ROS General General: Yes weight change and fatigue; No appetite, colon cancer, breast cancer or weakness HEENT HEENT: No difficulty swallowing, eye injury, eye surgery, swollen glands or hoarseness Endo Endocrine: No thyroid disease, diabetes mellitus, thyroid cancer, Hair loss, heat intolerance or cold intolerance Skin Skin: No rash or changing moles Musc Musculoskeletal: Yes arthritis; No back problems, rheumatoid arthritis, gout or joint pain Cardio Cardiovascular: Yes high blood pressure; No murmur, pacemaker, heart disease, atrial fibrillation, heart attack, heart stent, palpitations, shortness of breat with exertion or chest pain Psych Psychiatric: No depression, anxiety or hearing voices Resp Respiratory: No shortness of breath, No sleep apnea, No cough, No COPD, No asthma, No emphysema and No wheezing Gastro Gastrointestinal: No abdominal pain, Yes nausea or vomiting, No diarrhea, No constipation, No blood in stool, Yes acid reflux, Yes hemorrhoids, No ulcers, No gallbladder problem and No black,tarry stools Armani Hematologic: Yes blood thinners, No blood disorders, No bleeding, No anemia and No blood clots Additional Details: ASA 81mg Neuro Neurologic: Yes numbness, Yes tingling and No weakness Exam Const General: cooperative, healthy appearing, comfortable and no acute distress Neck Neck: normal visual inspection Chest Other: Normal palpation to the bilateral upper chest Resp Effort & Inspection: normal respiratory effort Cardio Rate: regular rate GI Inspection: non-distended Palpation: soft Musc Other: Right groin incision healing well some induration no obvious infection., Right heel with wound VAC in place Skin General: no rashes or lesions noted Neuro General: patient oriented x3 Psych Affect: normal affect COVID (Procedure Consent) Procedure Criteria Procedure Criteria: Yes Elective The surgeon/proceduralist and patient have discussed in detail the risk of exposure to and/or potential harm posed by the COVID-19 virus with having a surgery/procedure at this time versus the risk of delaying the surgery/procedure. It is not possible to know either the risk of delaying the surgery or procedure or chance of getting an infection with perfect accuracy, but a joint decision was made between the patient and the surgeon/proceduralist to proceed at this time with the scheduled surgery/procedure as indicated on the consent form. Assessment and Plan Assessment and Plan (1) Admission for fitting and adjustment of vascular catheter: Status: Acute (2) Malignant melanoma of right heel: Status: Acute (3) Regional lymph node metastasis present: Status: Acute Plan - Dr. Molly Nance MD: I have discussed above with the patient- Port-a-Cath placement. Right IJ possible left --we will plan for June 19 or . Patient is to follow-up with his surgeon on the in [place]. Patient has been counseled as to the risks/benefits of the procedure. I have explained the risks of the surgery, including but not limited to: infection, bleeding, injury to any blood vessels/nerves, injury to lungs (such as pneumothorax or hemothorax and need for chest tube), not having any access, nonfunctioning of port due to thrombosis, infection of port, etc. the patient understands and agrees to proceed. I have answered all the patient's questions to the patient?s satisfaction and the patient has no further questions. Molly Nance M.D. Pager: [phone] [facility] [address] [place] [address], [address] [place] [address] Office: [phone] Plan Details Follow Up: We will schedule port placement Coding Level of Care Code Off vis,new,level 3 Diagnoses Admission for fitting and adjustment of vascular catheter Z45.2 Malignant melanoma of right heel C43.71 Regional lymph node metastasis present C77.9 06/10/21 1022<Electronically signed by Molly Nance MD>Date Molly Nance MD
[2021-06-19] MEDS: Lactated Ringers 1,000 ML 100 ML IV ×2 (10:51→13:10)
[2021-06-19] MEDS: Cefazolin 2 GM in 0.9% Normal Saline 100 ML IV (11:51)
[2021-06-19] MEDS: Bupivacaine Mpf 0.5% 30 ML VIAL (12:20)
[2021-06-19] MEDS: Lidocaine 1% /Epi 1:100 (50ml) 50 ML VIAL (12:20)
--- NOTE | 2021-06-19 12:31 | PCM.OPRPT ---
Report of Operation Date of Procedure: 06/19/21 Pre-Operative Diagnosis: Z 45.2, malignant melanoma Post-Operative Diagnosis: Same Surgery/Procedure Performed:: 1. Placement of right IJ Port-A-Cath 2. Use of fluoroscopy 3. Use of ultrasound. Surgeon: Molly Nance Type of Anesthesia: General/Supplemental Anesthesiologist: Anurag Worthington Special Medications: Ancef 2 g IV x1 Specimen's removed: None Estimated Blood Loss (mL): < 10 cc Description of Procedure: After informed consent was given, the patient was brought to the operating room and placed in the supine position. Appropriate time out protocol was followed. Patient was then given IV conscious sedation for anesthesia. The patient's right upper chest and neck were then prepped with a surgical skin preparation and sterile surgical drapes were placed. After proper landmarks were ascertained, the skin at the upper right chest area was then infiltrated with 1:1 mixture of 1% lidocaine with epinephrine and 0.5% marcaine. A needle trocar was then inserted into the right internal jugular vein with ultrasound guidance-multiple vessels were viewed with u/s and the right IJ was chosen-- and there was good aspiration of venous blood. A wire was then threaded into the needle trocar and this was visualized under fluoroscopy to ensure that the wire was in the superior vena cava. Once this was done, then the needle trocar was removed. A small skin sriram was made with an 11 blade knife at the wire entrance site. The dilator with the introducer sheath attached was then placed over the wire into the right internal jugular vein via the Seldinger technique and this was visualized under fluoroscopy. The dilator and sheath were in proper position as visualized by fluoroscopy. A subcutaneous pocket was then created caudad to the catheter insertion site. A transverse skin incision was made after the skin and subcutaneous tissues were infiltrated with local anesthetic. Blunt dissection was then used to create a space large enough for placement of the subcutaneous port. The catheter was then tunneled into the subcutaneous pocket. The wire and dilator were then removed. The catheter was then threaded into the introducer sheath and was positioned with its tip at the junction of the superior vena cava and the right atrium as visualized under fluoroscopy. The excess catheter was transected. The catheter was then attached to the subcutaneous port using manufacturers guidelines. The catheter was flushed with a heparin saline mixture prior to placement. Hemostasis was carefully controlled with electrocautery. The port was sutured to the subcutaneous fascia using 2-0 Vicryl suture at two sites. The port was then placed in the subcutaneous pocket. The incision were reapproximated with interrupted subdermal 3-0 vicryl sutures. The skin was reapproximated with 3-0 nylon suture in a interrupted fashion. Steristrips were used for reinforcement of the skin closure at IJ insertion site and a sterile opsite dressings were applied. The patient tolerated the procedure well. Implants Used: [employer] PowerPort isp M.R.I. 6Fr Lot lot [id number] Grafts/Implants Used: [employer] PowerPort isp M.R.I. 6Fr Lot lot [id number] Complications none
--- NOTE | 2021-06-19 12:34 | EX.PCM.DISCH ---
Discharge Instructions Procedure Port-A-Cath Diet Discharge Diet: Light diet - advance as tolerated Activity May shower in (days): 5 (Keep port site clean and dry x5 days. Neck incision okay to get wet after 1 day. Okay to lower shower and upper sponge bath. OR okay to taper off port site with a Ziploc bag to shower) Lifting Restrictions: No lifting > 15 pounds for 3 days with the arm on the side of the port Dressing / Incision Call your doctor if your incision/area has: Continuous Slow Oozing, Sudden Increased Bleeding, Increased Pain/ Swelling, Increased Redness, Foul Smelling Discharge and Swelling at the incision site Call your doctor if you observe: Fever of 101 or Higher Change Dressing in: 2 days Follow Up Care Please Follow Up With: Molly Nance MD When: In 10 days for permanent suture removal?call office for appointment Test Results: Test results from this visit will be discussed in further detail at your follow-up appointment, if applicable. Discharge Plan Admission Attending Provider: Molly Nance Primary Care Provider: Anurag Dolan Discharge Orders/Prescriptions Prescriptions: Continued omeprazole 40 mg capsule,delayed release(DR/EC) 40 mg PO DAILY RF: 0 bisoprolol fumarate 5 mg tablet 2.5 mg PO QHS RF: 0 ipratropium bromide 0.03 % spray,non-aerosol 2 spray INTRANASAL PRN PRN (Reason: Congestion) RF: 0 quinapril 20 mg tablet 20 mg PO DAILY RF: 0 aspirin [Adult Low Dose Aspirin] 81 mg tablet,delayed release (DR/EC) 81 mg PO DAILY RF: 0 acetaminophen [Tylenol Extra Strength] 500 mg tablet 500 mg PO Q6H PRN (Reason: Pain) RF: 0 lidocaine-prilocaine 2.5-2.5 % cream 1 applic topical ONCE PRN (Reason: Port access ) 30 Days Qty: 30 RF: 2 multivitamin with minerals 1 EACH tablet 1 ea PO DAILY RF: 0 Prostagenics 1 cap PO BID RF: 0 glucosamine sulfate [Glucosamine] 500 mg Tablet 500 mg PO BID RF: 0 Referrals / Follow Up: Anurag Dolan MD [Primary Care Provider] - Disposition Disposition (needs filled in before D/C Order can be placed): Home, Self Care
--- NOTE | 2021-06-19 12:45 | RAD_ITS ---
STUDY: X-RAY CHEST REASON FOR EXAM: Male, 81 years old. Port -- pacu TECHNIQUE: Single AP portable view of the chest. COMPARISON: Comparison is made with prior study dated 06/01/2021. FINDINGS: A right-sided Port-A-Cath has been placed. The tip is at the junction of the superior vena cava and right atrium. The lungs are clear and expanded. There is no demonstrated pleural abnormality. Normal size heart. Normal mediastinum and jonah. Normal visualized pulmonary arteries. Normal visualized aortic arch and descending thoracic aorta. Normal visualized thoracic spine. Normal visualized ribs, clavicles, and shoulders. There is no demonstrated abnormality of the visualized soft tissue structures of the upper abdomen. RAD/CXR for Line Placement IMPRESSION: The tip of the right-sided portacatheter is at the junction of the superior vena cava and right atrium. Electronically Signed: Riky Knapp MD at 13:06 EDT , Service support ,
== END 2021-06-19 14:09 | disposition home or self-care (01) ==
LOC: SDC 09:48 → AC 09:53
PROVIDERS: PCP Family Medicine; Referring Provider Surgery; Visit Provider Surgery
PROC: (CPT 36561; principal; 2021-06-19 11:10)
DX: Z45.2 Encounter for adjustment and management of vascular access device (principal); C43.71 Malignant melanoma of right lower limb, including hip; C77.9 Secondary and unspecified malignant neoplasm of lymph node, unspecified; I10 Essential (primary) hypertension; E78.00 Pure hypercholesterolemia, unspecified; K21.9 Gastro-esophageal reflux disease without esophagitis; M06.9 Rheumatoid arthritis, unspecified; Z79.82 Long term (current) use of aspirin; Z79.899 Other long term (current) drug therapy
CPT/HCPCS: 00532; 36561; 71045; 77001; J7120

== ENCOUNTER → 2021-09-08 11:09 | Outpatient (CLI) | payer MEDICARE, SELFPAY ==
[2021-06-19 10:26] VITALS: BMI 30.3
--- NOTE | 2021-09-08 11:12 | US_ITS ---
STUDY: ULTRASOUND - US Lower Extremity, limited, joint or other nonvascular extremity 09/09/2021 5:07 PM REASON FOR EXAM: Male, 81 years old. LYMPH NODES R GROIN TECHNIQUE: A superficial ultrasound was performed with real-time and static chappell-scale imaging. COMPARISON: None. FINDINGS: There is no fluid collection. There is no abscess. Multiple right lymph nodes. These measure 10 x 7 mm, 10 x 8 mm, 11 x 9 mm, 20 x 8 mm, 19 x 10 mm, and 19 x 9 mm. US/Ext Non Vasc Limited/Soft Tiss IMPRESSION: Multiple right inguinal lymph nodes. Electronically Signed: Nigel Meredith MD at 17:09 EDT , Service support ,
== END ==
PROVIDERS: PCP Family Medicine
DX: C43.71 Malignant melanoma of right lower limb, including hip (principal)
CPT/HCPCS: 76882

== ENCOUNTER → 2021-10-22 12:26 | Outpatient (CLI) | payer MEDICARE, SELFPAY ==
--- NOTE | 2021-10-22 12:27 | MRI_ITS ---
EXAM: MR HEAD WITHOUT AND WITH INTRAVENOUS CONTRAST CLINICAL INDICATION: NEW ONSET BLURRING OF RIGHT EYE/ H/O MELANOMA TECHNIQUE: Multiplanar and multisequence MR images of the brain were obtained without and with intravenous contrast. This report was created using [employer] report [employer] technology. CONTRAST: IV 18ML Dotarem. COMPARISON: None. FINDINGS: BRAIN AND EXTRA-AXIAL SPACES: No diffusion restriction throughout the brain parenchyma. Abnormal T2 FLAIR hyperintensity foci in the subcortical white matter and periventricular white matter of both cerebral hemispheres, left more than right. Some of the left periventricular white matter T2 FLAIR hyperintense foci are perpendicular to the body of the left lateral ventricle. No intra- or extra-axial hemorrhage. No evidence of acute infarct. No intracranial mass or mass effect. There is preservation of the chappell/white matter interface. Posterior fossa structures are unremarkable. No hydrocephalus. Basal cisterns are patent. SELLA: Unremarkable. Normal sella turcica, pituitary gland, infundibular stalk, optic chiasm and hypothalamus. AUDITORY SYSTEM: Unremarkable. The internal auditory canals are patent. BONES/JOINTS: Unremarkable. No discrete lytic or blastic abnormalities. SINUSES: Unremarkable as visualized. Clear. MASTOID AIR CELLS: Unremarkable as visualized. Clear. ORBITS: Normal orbital globes, extraocular muscles and optic nerve sheath complexes. No abnormal enhancement of the optic nerve sheaths and optic nerves. VASCULATURE: Unremarkable as visualized. Normal flow voids in the major intracranial circulation. OTHER FINDINGS: No enhancing lesions following IV contrast administration. MRI/Brain W/WO Contrast IMPRESSION: 1. Abnormal white matter in both cerebral hemispheres. Considering his age, these are most likely chronic white matter ischemic changes rather than MS plaques. 2. No MRI evidence of intracranial metastatic disease or orbital metastatic disease. 3. No MRI evidence of active MS plaques. 4. Normal MRI of the orbits with and without contrast. 5. No MRI evidence of intracranial metastatic disease or orbital metastases. Electronically Signed: Mati Ahuja MD at 10:58 EST , Service support ,
[2021-10-22] MEDS: 0.9% Saline Lock 10 ML Syringe IV (13:31)
== END ==
PROVIDERS: PCP Family Medicine; Referring Provider Internal Medicine Hematology & Oncology; Visit Provider Internal Medicine Hematology & Oncology
DX: H53.8 Other visual disturbances (principal); C43.71 Malignant melanoma of right lower limb, including hip; C77.9 Secondary and unspecified malignant neoplasm of lymph node, unspecified
CPT/HCPCS: 70553; A9575; A4216

== ENCOUNTER → 2021-11-18 14:36 | Outpatient (CLI) | payer MEDICARE, SELFPAY ==
--- NOTE | 2021-11-18 14:39 | RAD_ITS ---
STUDY: X-RAY CHEST REASON FOR EXAM: Male, 81 years old. COUGH TECHNIQUE: PA and lateral views of the chest. COMPARISON: 06/19/2021 FINDINGS: Right IJ port remains. The lungs are clear and expanded. There is no demonstrated pleural abnormality. Normal size heart. Normal mediastinum and jonah. Normal visualized pulmonary arteries. Normal visualized aortic arch and descending thoracic aorta. There is no demonstrated abnormality of the visualized soft tissue structures of the upper abdomen. RAD/Chest PA and Lateral IMPRESSION: No acute abnormal cardiopulmonary finding. Electronically Signed: Aaron Ritchie MD at 5:38 EST Tel , Service support ,
== END ==
PROVIDERS: PCP Family Medicine; Referring Provider Nurse Practitioner Family; Visit Provider Nurse Practitioner Family
DX: R05.9 Cough, unspecified (principal)
CPT/HCPCS: 71046

== ENCOUNTER 2021-12-30 13:51 | Outpatient (CLI) | payer MEDICARE, SELFPAY ==
--- NOTE | 2021-12-30 14:15 | CT_ITS ---
STUDY: CT CHEST, ABDOMEN T PELVIS WITH CONTRAST REASON FOR EXAM: Male, 81 years old. MELANOMA ON RX RADIATION DOSAGE (If Supplied By Facility): CTDIvol = ( 14.64 ) mGy, DLP = ( 1386.71 ) mGycm TECHNIQUE: Transaxial imaging was performed following intravenous administration of IV 100mL Isovue-300. Individualized dose optimization techniques were used for this CT. COMPARISON: Comparison is made with prior CT scan of the abdomen and pelvis dated 04/02/2020 and prior PET scan dated 04/22/2021. FINDINGS: CHEST A right-sided Port-A-Cath is seen with the tip in the superior vena cava. Mild degree of emphysematous changes. Minimal scarring is seen in the posterior medial segment of the right lower lobe. There is no demonstrated pleural abnormality. There are calcifications of the coronary arteries. There are multiple small lymph nodes within the mediastinum, which are normal in size and morphology most compatible with reactive lymph hyperplasia. Normal hilar regions. Normal unenhanced pulmonary arteries. Normal aorta arch and descending thoracic aorta. There are degenerative changes of the thoracic spine. There is no demonstrated abnormality of the visualized upper abdomen. ABDOMEN Normal liver. Normal gallbladder and extrahepatic biliary system. Normal spleen. Normal pancreas. Normal bilateral adrenal glands. Normal right kidney. Normal left kidney. Normal visualized stomach. Normal small intestine. There are multiple colonic diverticula consistent with diverticulosis. The appendix is visualized and appears normal. There is diffuse atherosclerotic calcification of the abdominal aorta and its major visceral branches, without a demonstrated aneurysm. Normal inferior vena cava. Normal retroperitoneum. Normal abdominal wall. There are degenerative changes of the visualized lumbar spine. Loss of the normal lumbar lordosis. PELVIS Normal urinary bladder. Metallic seeds are seen within the prostate. The prostate is not enlarged. There is no pelvic fluid. There is no pelvic lymphadenopathy or mass lesion. Normal visualized pelvic arteries. CT/CT Chest, Abd, Pel w/Contrast IMPRESSION: Hyperinflation and mild emphysematous changes. No acute abnormality is seen. Electronically Signed: Riky Knapp MD at 14:40 EST ,
== END 2021-12-30 23:59 | disposition short-term general hospital (02) ==
PROVIDERS: PCP Family Medicine; Referring Provider Internal Medicine Hematology & Oncology; Visit Provider Internal Medicine Hematology & Oncology
DX: C43.71 Malignant melanoma of right lower limb, including hip (principal)
CPT/HCPCS: 71260; 74177; J7040; Q9967; A4216

== ENCOUNTER 2021-12-31 09:40 | Outpatient (RCR) | payer MEDICARE, SELFPAY ==
[2021-12-31 10:17] VITALS: BP 114/95; PULSE 73; RESP 16; TEMP 36.1; BMI 32.3
--- NOTE | 2021-12-31 12:21 | HP.PCM_ITS ---
History of Present Illness Date of Service: 12/31/21 Chief Complaint: Follow-up on the right heel wound History of Wound: 81-year-old white male, that had been treated for plantar wart to the right heel x2. The staff development coordinator rn then thought something was finally biopsied it and ended up being melanoma. Patient had a big extraction of the heel down to the dermis and sentinel nodes in the right groin removed. This was back in 2020 he then proceeded with a wound VAC that closed him and now he is closed with some dry skin over the area. Patient is concerned that this is not good tissue and that may be something is wrong with it. Patient does have some hardened skin and over it very thin callu s developing. I told the patient its more of an overactive skin I suggested he use these growth but nothing bad. Pads when he is walking that could be irritating it. And I also suggested he start smearing AmLactin cream on it to soften the skin. Otherwise it is closed and he is does not really need to come here anymore he can follow-up as needed. [facility] Medical History (Updated 12/31/21 @ 12:27 by Kylah López NP, [facility]) Alcohol use Arthritis Melendrez's palsy Benign prostate hyperplasia Cancer Cough Creatinine elevation CRF (chronic renal failure) Drug rash Encounter for immunotherapy Gastric reflux GERD (gastroesophageal reflux disease) Hemorrhoids History of brachytherapy Hx of malignant neoplasm of prostate Hypercholesterolemia Hypertension Hypothyroidism (acquired) Injury of back Malignant melanoma of right heel Non-smoker Open wound of right heel Osteoarthritis of left knee Personal history of colonic polyps Regional lymph node metastasis present Rheumatoid arthritis Sleep disorder Squamous cell carcinoma of skin Wears glasses Home Medications aspirin 81 mg tablet,delayed release 81 mg PO DAILY 10/29/20 [History Last Taken 10/28/20] bisoprolol fumarate 5 mg tablet 2.5 mg PO QHS tab 10/29/20 [History Last Taken Unknown] ipratropium bromide 21 mcg (0.03 %) nasal spray 2 spray INTRANASAL PRN PRN ml 10/29/20 [History Last Taken Unknown] omeprazole 40 mg capsule,delayed release 40 mg PO DAILY cap 10/29/20 [History Last Taken 06/19/21 08:00 40 MG] multivitamin with minerals 1 ea PO DAILY 10/31/20 [History Last Taken Unknown] acetaminophen 500 mg tablet 500 mg PO Q6H PRN 06/05/21 [History Last Taken Unknown] lidocaine-prilocaine 2.5 %-2.5 % topical cream 1 applic TOPICAL ONCE PRN 30 Days #30 g 06/05/21 [Rx Last Taken Unknown] triamcinolone acetonide 0.1 % topical cream applic TOPICAL 09/15/21 [History Last Taken Unknown] amlodipine 5 mg tablet 5 mg PO DAILY 10/06/21 [History Last Taken Unknown] glucosamine sulfate 500 mg tablet 500 mg PO DAILY tab 11/04/21 [History Last Taken Unknown] levothyroxine 75 mcg tablet 75 mcg PO DAILY #30 tab 11/04/21 [Rx Last Taken Un known] zinc 50 mg tablet 50 mg PO DAILY 12/29/21 [History Last Taken Unknown] Allergy/AdvReac Type Severity Reaction Status Date / Time No Known Allergies Allergy Verified 12/29/21 10:26 Family History Brother Prostate cancer CVA (cerebral vascular accident) Brother Leukemia Father Hypertension Myocardial infarction Mother CHF (congestive heart failure) Surgical History History of root canal procedure Hx of colonoscopy Hx of discectomy Hx of foot operation Hx of hemorrhoidectomy Hx of rotator cuff surgery Social History Smoking Status: Never smoker second hand exposure: No alcohol intake: current alcohol intake frequency: a few times a month details: OCCASIONALLY substance use type: does not use well-balanced diet: about half the time caffeine: Yes Type: coffee Number of servings: 1 eating out: 1-3 times/week what type of physical activity do you participate in: bicycling frequency: 3-4 times per week duration: 15-30 minutes/day melany/congregation: [employer] seatbelt use: always do you feel safe at home: Yes ROS Constitutional Constitutional: Reports systems reviewed and no addt'l complaints, except as documented Eyes Eyes: Reports systems reviewed and no addt'l complaints, except as documented ENT HEENT: Reports systems reviewed and no addt'l complaints, except as documented Cardiovascular Cardiovascular: Reports systems reviewed and no addt'l complaints, except as documented Respiratory/Chest Respiratory/Chest: Reports systems reviewed and no addt'l complaints, except as documented Gastrointestinal Gastrointestinal: Reports systems reviewed and no addt'l complaints, except as documented Genitourinary Genitourinary: Reports systems reviewed and no addt'l complaints, except as documented Musculoskeletal Musculoskeletal: Reports systems reviewed and no addt'l complaints, except as documented Integumentary Integumentary: Reports skin ulcer Neurologic Neurologic: Reports systems reviewed and no addt'l complaints, except as documented Psychiatric Psychiatric: Reports systems reviewed and no addt'l complaints, except as documented Endocrine Endocrinology: Reports systems reviewed and no addt'l complaints, except as documented Hematologic/Lymphatic Hematologic/Lymphatic: Reports systems reviewed and no addt'l complaints, except as documented Allergic/Immunologic Allergic/Immunologic: Reports systems reviewed and no addt'l complaints, except as documented Vital Signs Vital Signs Vital Signs: 12/31/21 10:17 Temperature 97 F L Temperature Source Temporal Pulse Rate 73 Respiratory Rate 16 Blood Pressure 114/95 H Blood Pressure Mean 101 Blood Pressure Source Monitor Blood Pressure Position Supine Blood Pressure Location Right Arm Oxygen Delivery Method Room Air Weight Weight: 200 lb Body Mass Index (BMI) 32.3 Physical Exam Const oriented x3 General Appearance: cooperative Exam Limitations: no limitations HEENT normocephalic Head and Scalp: normal to inspection Face and Sinus: normal facial exam Nose: external nose normal General Ear: hearing grossly impaired External Ear: external ears normal Mouth: oral and palatal mucosa normal Eyes PERRL General Eye: normal appearance of both eyes Neck full ROM General: normal visual inspection Resp normal respiratory effort Effort and Inspection: able to speak in complete sentences Auscultation: clear to auscultation bilaterally Cardio regular rate and regular rhythm Palpation: normal PMI Rate: regular rate Rhythm: regular rhythm GI Auscultation: normoactive bowel sounds Palpation: soft and no hepatosplenomegaly external exam normal Back/Spine Cervical Spine: cervical ROM normal Thoracic Spine / Upper Back: normal to inspection Lumbar Spine / Lower Back: normal to inspection Extremity normal to inspection General Extremity: normal exam except as noted Skin no rashes or lesions noted General Skin Exam: other Well-healed ulcer of the right heel with xerosis Neuro oriented x3 Psych Appearance: grossly normal Speech: normal speech Thought Content: normal thought content Judgement: judgement good Debridement Note Debridement Note Wound debrided: Right heel No debridement was completed: No debridement was completed today Post-Debridement Measurements and Additional Note: Post-Debridement Measurements/Treatment WC - Nurse 1 - General Ulcer Assessment Start: 12/31/21 10:16 Freq: Status: Active Protocol: SHAYNE Activity Type Activity Date Activity User E-Sign Co-Sign Detail Recorded Client Recorded Date Recorded By Document 12/31/21 10:[address] [facility] [id number] 12/31/21 10:[address] [facility] 12/31/21 10:17 WC - Today's Visit Information Type of service Initial Visit Arrival Mode Ambulatory Transfer Assistance None Patient Identification Verified (Name & Yes ) Patient Requires Transmission-Based No Precautions Height and Weight Height 5 ft 6 in Weight 200 lb Weight in Pounds 200.0 lbs Weight Measurement Method Estimated by Patient Body Mass Index (BMI) 32.3 BMI Classification Obese BSA - Sharon 2.00 Vital Signs Temperature (97.8 F-99.1 F) 97 F L Temperature Source Temporal Pulse Rate (60-100) 73 Pulse Location Monitor Respiratory Rate (12-18) 16 Respiratory rate source Observation Oxygen Delivery Method Room Air Blood Pressure (90/60-120/80) 114/95 H Blood Pressure Mean 101 Source Monitor Position Supine Blood Pressure Location Right Arm History Since Last Visit- (Skip if this is Patient's initial visit) Left Footwear Regular Shoe Right Footwear Regular Shoe Pain Scale: 0-10 Numeric Is Patient Pain Free? Yes Communication Assessment Preferred language Estonian Interior Wirer Required No Able to Read Yes Able to Write Yes Communication Tools None Right Hearing Abillity Normal Left Hearing Abillity Normal Visual Assistive Devices Glasses Teaching Assessment Preferences Verbal,Written, Audio/Visual, Demonstration Barriers to Learning None Readiness To Learn Excellent Willingness to Engage in Self Management High Activies Readiness to Engage in Self Management High Activities Anxiety Level Calm Cooperation Cooperative Perception Coherent Interest in Health Problem Asks Questions Education Importance Acknowledges Need Does Patient Smoke tobacco or other No substances Smoking Status Never smoker Is Patient Diabetic No Functional Assessment Recent Decline in Ability to Perform Denies Any Declines Culture/Samaritan/C[employer] Cultural/Samaritan Needs that may affect No Treatment Plan Teaching: Wound Center *Welcome to the Wound Center -Person Taught Patient -Teaching Method Discussion -Response to teaching Verbalize understanding Welcome to the Wound Care Center English BAHENA - Nurse 1 - General Ulcer Measurement Start: 12/31/21 10:16 Freq: Status: Active Protocol: Activity Type Activity Date Activity User E-Sign Co-Sign Detail Recorded Client Recorded Date Recorded By Document 12/31/21 10:17 BMF [id number] 12/31/21 10:25 BMF Edit Result 12/31/21 10:17 BMF (1) [id number] 12/31/21 10:35 BMF (1) #1- R HEEL - Wound Comment(s) => MT RN TO COMPLETE REMAINDER OF PT ASSESSMENTS 12/31/21 10:17 Wound Center Nurse 1 #1- R HEEL -Combined with other wound No -Current Size (cm) - Length 0.1 -Current Size (cm) - Width 0.1 -Current Size (cm) - Depth 0.1 -Total Square Cm 0.01 -Date of Last Picture (Recall this 12/31/21 field) -Photo Taken Yes -Epithelialization None Present -Tunneling No -Undermining/Tunneling No -Circular Undermining No -Exudate Amt None Present -Wound Margin Distinct, Outline Attached -Texture (Cee-wound Skin Appearance) Assessed,Callus ,Scarring -Moisture (Cee-wound Skin Appearance) Assessed,Dry/ Scaly -Color (Cee-wound Skin Appearance) Assessed -Temperature (Cee-wound Skin No Abnormality Appearance) (Pt Warm) -Tenderness on Palpation (Cee-wound No Skin Appearance) -Ulcer Cleansing Rinsed/ Irrigated with Saline -Foul Odor after Cleansing No -Anesthetic Used 5% Lidocaine Gel -Wound Comment(s) MT RN TO COMPLETE REMAINDER OF PT ASSESSMENTS WC - Nurse 2 - General Ulcer CM Notes Start: 12/31/21 10:16 Freq: Status: Active Protocol: Activity Type Activity Date Activity User E-Sign Co-Sign Detail Recorded Client Recorded Date Recorded By Document 12/31/21 11:03 MW [id number] 12/31/21 11:09 MW 12/31/21 11:03 Wound Center Nurse 2 -Time 11:03 -Correct Patient Yes -Correct Side, Site, Position Yes -Correct Procedure Yes -Procedure Performed No -Post Debridement (cm) - Length 0 -Post Debridement (cm) - Width 0 -Post Debridement (cm) - Depth 0 -Total Square (Post) (cm) 0 -Tunneling No -Undermining/Tunneling No -Circular Undermining No -Wound/Ulcer Outcome Healed- Epithelialized Pain Scale: 0-10 Numeric Is Patient Pain Free? Yes WC - Nurse 3 - General Ulcer D/C NN Start: 12/31/21 10:16 Freq: Status: Active Protocol: Activity Type Activity Date Activity User E-Sign Co-Sign Detail Recorded Client Recorded Date Recorded By Document 12/31/21 11:[address] [facility] [id number] 12/31/21 11:[address] [facility] 12/31/21 11:21 Wound Care Nurse 3 #1- R HEEL -Primary Dressing Applied Mepilex Border -Mepilex Border 1 Pain Scale: 0-10 Numeric Is Patient Pain Free? Yes WC - Visit Discharge Discharge Condition Stable Ambulatory Status Ambulatory Transportation Private Auto Lab / Micro Data Attestation: I reviewed the patient's lab results. Assessment/Plan Assessment/Plan (1) Malignant melanoma of right heel: CODE(S): C43.71 - Malignant melanoma of right lower limb, including hip (2) Open wound of right heel: CODE(S): S91.301A - Unspecified open wound, right foot, initial encounter QUALIFIERS: Encounter type: initial encounter Qualified Code(s): S91.301A - Unspecified open wound, right foot, initial encounter PLAN: Right heel resolved has developed some xerosis. Suggested heel pads, and AmLactin cream to the right heel every day. Patient is discharged from the wound center and can follow-up as needed
== END 2021-12-31 13:15 | disposition home or self-care (01) ==
LOC: WC 09:40
PROVIDERS: PCP Family Medicine; Visit Provider Nurse Practitioner
DX: Z09 Encounter for follow-up examination after completed treatment for conditions other than malignant neoplasm (principal); C79.89 Secondary malignant neoplasm of other specified sites; M06.9 Rheumatoid arthritis, unspecified; C43.71 Malignant melanoma of right lower limb, including hip; Z79.82 Long term (current) use of aspirin; I12.9 Hypertensive chronic kidney disease with stage 1 through stage 4 chronic kidney disease, or unspecified chronic kidney disease; E78.00 Pure hypercholesterolemia, unspecified; N18.9 Chronic kidney disease, unspecified; Z79.899 Other long term (current) drug therapy; N40.0 Benign prostatic hyperplasia without lower urinary tract symptoms; M19.90 Unspecified osteoarthritis, unspecified site; K21.9 Gastro-esophageal reflux disease without esophagitis; E03.9 Hypothyroidism, unspecified; Z79.890 Hormone replacement therapy; L85.3 Xerosis cutis
CPT/HCPCS: 99203; G0463

== ENCOUNTER 2022-02-20 18:19 | Observation (INO) | payer MEDICARE, SELFPAY ==
[2022-02-20 18:22] VITALS: BP 170/119; PULSE 84; PULSE 95; RESP 17; TEMP 36.5; O2SAT 95; O2SAT 97; BMI 32.4
--- NOTE | 2022-02-20 18:38 | EKG12_ITS ---
Test Reason : WEKANESS Blood Pressure : / mmHG Vent. Rate : 093 BPM Atrial Rate : 070 BPM P-R Int : 000 ms QRS Dur : 090 ms QT Int : 384 ms P-R-T Axes : 000 002 -44 degrees QTc Int : 477 ms Atrial fibrillation Nonspecific ST and T wave abnormality Prolonged QT Abnormal ECG Confirmed by JUVENCIO ANDREW, SHANNEN ([id number]), department editor KORTNEY MYERS ([id number]) on 02/24/2022 11:06:59 AM Referred By: Confirmed By:SHANNEN HENNING MD
--- NOTE | 2022-02-20 18:39 | EDS_ITS ---
HPI History of Present Illness Chief Complaint: Weakness Informant: patient Onset/Context/Timing Onset: Today Current Severity: Mild Maximum Severity: Moderate Narrative Narrative: Patient present secondary to weakness along with nausea and vomiting. He states he felt well when he went to bed last evening. When he woke up this morning he just felt off and weak. Approximate 2 hours prior to arrival he developed nausea and vomiting. He does report a slight dizziness or vertigo sensation when he first stands. He denies chest pain or palpitations. He denies abdominal pain. No urinary symptoms. [facility] Medical History Alcohol use Arthritis Melendrez's palsy Benign prostate hyperplasia Cancer Cough Creatinine elevation CRF (chronic renal failure) Drug rash Encounter for immunotherapy Gastric reflux GERD (gastroesophageal reflux disease) Hemorrhoids History of brachytherapy Hx of malignant neoplasm of prostate Hypercholesterolemia Hypertension Hypothyroidism (acquired) Injury of back Malignant melanoma of right heel Non-smoker Open wound of right heel Osteoarthritis of left knee Personal history of colonic polyps Regional lymph node metastasis present Rheumatoid arthritis Sleep disorder Squamous cell carcinoma of skin Wears glasses Home Medications aspirin 81 mg tablet,delayed release 81 mg PO DAILY 10/29/20 [History Last Taken 10/28/20] bisoprolol fumarate 5 mg tablet 2.5 mg PO QHS tab 10/29/20 [History Last Taken Unknown] ipratropium bromide 21 mcg (0.03 %) nasal spray 2 spray INTRANASAL PRN PRN ml 10/29/20 [History Last Taken Unknown] omeprazole 40 mg capsule,delayed release 40 mg PO DAILY cap 10/29/20 [History Last Taken 06/19/21 08:00 40 MG] multivitamin with minerals 1 ea PO DAILY 10/31/20 [History Last Taken Unknown] acetaminophen 500 mg tablet 500 mg PO Q6H PRN 06/05/21 [History Last Taken Unknown] triamcinolone acetonide 0.1 % topical cream 1 applic TOPICAL DAILY PRN 09/15/21 [History Last Taken Unknown] amlodipine 5 mg tablet 5 mg PO DAILY 10/06/21 [History Last Taken Unknown] glucosamine sulfate 500 mg tablet 500 mg PO DAILY tab 11/04/21 [History Last Taken Unknown] zinc 50 mg tablet 50 mg PO DAILY 12/29/21 [History Last Taken Unknown] calcium carbonate 600 mg calcium (1,500 mg) tablet 600 mg PO DAILY 01/20/22 [History Last Taken Unknown] lidocaine-prilocaine 2.5 %-2.5 % topical cream 1 applic TOPICAL ONCE PRN 30 Days #30 g 02/09/22 [Rx Last Taken Unknown] levothyroxine 112 mcg tablet 112 mcg PO DAILY #30 tab 02/10/22 [Rx Last Taken Unknown] Allergy/AdvReac Type Severity Reaction Status Date / Time No Known Allergies Allergy Verified 02/20/22 18:20 Family History Brother Prostate cancer CVA (cerebral vascular accident) Brother Leukemia Father Hypertension Myocardial infarction Mother CHF (congestive heart failure) Surgical History History of root canal procedure Hx of colonoscopy Hx of discectomy Hx of foot operation Hx of hemorrhoidectomy Hx of rotator cuff surgery Social History Smoking Status: Never smoker second hand exposure: No alcohol intake: current alcohol intake frequency: a few times a month details: OCCASIONALLY substance use type: does not use well-balanced diet: about half the time caffeine: Yes Type: coffee Number of servings: 1 eating out: 1-3 times/week what type of physical activity do you participate in: bicycling frequency: 3-4 times per week duration: 15-30 minutes/day melany/temple: Restoration seatbelt use: always do you feel safe at home: Yes ROS ROS ED Constitutional Constitutional ED: Denies chills or fever(s) Eyes Eyes: Denies change in vision ENT ENT ED: Denies sore throat Cardiovascular Cardiovascular: Denies chest pain Respiratory/Chest Respiratory/Chest: Denies cough or dyspnea Gastrointestinal Gastrointestinal: Reports nausea and vomiting; Denies abdominal pain or diarrhea Genitourinary Genitourinary ED: Denies dysuria Musculoskeletal Musculoskeletal: Denies back pain or neck pain Integumentary Denies rash Neurologic Neurologic: Reports weakness; Denies headache(s) Allergic/Immunologic Allergic/Immunologic ED: Denies urticaria EXAM Physical Exam Const Vital Signs: 02/20/22 18:22 02/20/22 19:54 Temperature 97.7 F L Temperature Source Oral Pulse Rate 95 87 Respiratory Rate 17 25 H Respiratory Effort Normal Non-Labored Respiratory Pattern Normal Blood Pressure 170/119 H 125/96 H Blood Pressure Mean 136 105 Pulse Ox 97 97 Oxygen Delivery Method Room Air Room Air Positive well nourished and well developed General Appearance ED: well developed HEENT Reports moist mucous membranes Eyes PERRL and EOMs intact bilaterally Neck supple Chest Wall inspection of chest normal and palpation of chest normal Resp normal respiratory effort and clear to auscultation bilaterally Cardio regular rate and regular rhythm GI non-tender Auscultation: normoactive bowel sounds Palpation: soft Extremity normal to inspection Neuro oriented x3 Sensorium / Orientation: alert Psych mental status grossly normal Skin no rashes or lesions noted MDM MDM MDM Narrative Medical decision making narrative: EKG, chest x-ray, urinalysis, lab work obtained. Patient given Reglan for nausea. Lab Data Attestation: I reviewed the patient's lab results. Labs: Laboratory Results - last 24 hr 02/20/22 02/20/22 02/20/22 18:40 19:40 19:40 WBC 6.9 RBC 4.29 L Hgb 14.4 Hct 39.7 L MCV 92.5 MCH 33.6 H MCHC 36.3 H RDW Std Deviation 39.8 RDW Coeff of Halley 11.8 Plt Count 292 MPV 9.2 Immature Gran % (Auto) 0.400 Neut % (Auto) 73.7 H Lymph % (Auto) 18.3 L [place] % (Auto) 5.6 Eos % (Auto) 1.6 Baso % (Auto) 0.4 Absolute Neuts (auto) 5.1 Absolute Lymphs (auto) 1.27 Nucleated RBC % 0 Sodium 137 Potassium 3.1 L Chloride 104 Carbon Dioxide 27.0 Anion Gap 6 BUN 19 H Creatinine 1.19 Estim Creat Clear Calc 43.93 Est GFR (MDRD) Af Amer 75 Est GFR (MDRD) Non-Af 62 BUN/Creatinine Ratio 16.0 Glucose 153 H Calcium 8.9 Total Bilirubin 0.50 Direct Bilirubin 0.14 AST 20 ALT 19 Alkaline Phosphatase 90 Troponin I High Sens 9 Total Protein 7.6 Albumin 3.7 Globulin 3.9 Lipase 79 Urine Color Yellow Urine Clarity Clear Urine pH 7.0 Ur Specific [place] 1.010 Urine Protein Negative Urine Glucose (UA) Normal Urine Ketones 5 H Urine Occult Blood Negative Urine Nitrite Negative Urine Bilirubin Negative Urine Urobilinogen Normal Ur Leukocyte Esterase Negative Urine RBC 0-5 SEEN Urine WBC 0 SEEN Ur Squamous Epith Cells 0 SEEN Urine Bacteria 0 SEEN Urine Mucus 0 SEEN Radiography Chest X-Ray - ED: 1 View, Read by ED Physician, Chronic Changes and No Infiltrates EKG Initial EKG: Attestation: I personally reviewed and interpreted this EKG as follows: Interpretation: Atrial Fibrillation (Atrial fibrillation with ventricular rate of 93 bpm. Nonspecific T wave flattening in the lateral leads.) Treatment and Re-Evaluation Narrative: On repeat evaluation patient feels improved. He denies nausea but states he still feels woozy. We discussed atrial fibrillation. He states he has had some palpitations in the past but is never been diagnosed with A. fib. Other lab work is remarkable only for potassium low at 3.1. Urinalysis negative. Patient will get IV potassium replacement as well as a dose of Lovenox. His heart rate is well controlled in the 80s. I will speak with hospitalist regarding admission. Discharge Plan Triage Chief Complaint: Weakness ED Provider: Mecca Fall Dx/Rx/DC Orders Clinical Impression: Atrial fibrillation, new onset, Vomiting, Hypokalemia Prescriptions: No Action omeprazole 40 mg capsule,delayed release(DR/EC) 40 mg PO DAILY RF: 0 bisoprolol fumarate 5 mg tablet 2.5 mg PO QHS RF: 0 ipratropium bromide 0.03 % spray,non-aerosol 2 spray INTRANASAL PRN PRN (Reason: Congestion) RF: 0 aspirin [Adult Low Dose Aspirin] 81 mg tablet,delayed release (DR/EC) 81 mg PO DAILY RF: 0 acetaminophen [Tylenol Extra Strength] 500 mg tablet 500 mg PO Q6H PRN (Reason: Pain) RF: 0 triamcinolone acetonide 0.1 % cream 1 applic topical DAILY PRN (Reason: affected area) RF: 0 amlodipine 5 mg tablet 5 mg PO DAILY RF: 0 zinc 50 mg tablet 50 mg PO DAILY RF: 0 calcium carbonate [Calcium 600] 600 mg calcium (1,500 mg) tablet 600 mg PO DAILY RF: 0 lidocaine-prilocaine 2.5-2.5 % cream 1 applic topical ONCE PRN (Reason: Port access ) 30 Days Qty: 30 RF: 2 multivitamin with minerals 1 EACH tablet 1 ea PO DAILY RF: 0 glucosamine sulfate [Glucosamine] 500 mg tablet 500 mg PO DAILY RF: 0 levothyroxine 112 mcg tablet 112 mcg PO DAILY Qty: 30 RF: 6 Primary Care Provider: Anurag Dolan Referrals: Anurag Dolan MD [Primary Care Provider] - Disposition Disposition: Acute Care Hospital [facility]
[2022-02-20 18:54] LABS: Bacteria 0 SEEN /hpf (None Seen); Mucous, Urine 0 SEEN /hpf (<or=2+); Squamous Epithelial Cells - UA 0 SEEN /hpf (0-5); White Blood Cells 0 SEEN /hpf (0-5)
[2022-02-20 18:58] LABS: Color, Urine Yellow (Yellow); Glucose, Dipstick Normal (Normal); Ketone-Dipstick 5 mg/dl (Negative); Leukocyte Esterase-Dipstick Negative /ul (Negative); Nitrite-Dipstick Negative (Negative); Occult Blood-Urine Negative /ul (Negative); Protein-Dipstick Negative (Negative); Urine Bilirubin Dipstick Negative (Negative); Urine Clarity Clear (Clear); Urine Urobilinogen Normal (Normal)
[2022-02-20 19:06] LABS: Red Blood Cells-Urine 0-5 SEEN /hpf (0-5)
[2022-02-20 19:49] LABS: Absolute Lymphocyte Count 1.27 X10^3/uL (0.83-4.51); Absolute Neutrophil Count 5.1 X10^3/uL (2.0-7.7); Basophil# 0.03 X10^3/uL; Basophil% 0.4 % (0-1); Eosinophil# 0.11 X10^3/uL; Eosinophils% 1.6 % (0-5); Hematocrit 39.7 % (40-54); Hemoglobin 14.4 g/dL (13.0-16.5); Lymphocyte # 1.27 X10^3/ul (0.83-4.51); Lymphocyte % 18.3 % (19-41); Mean Corp Hgb Conc 36.3 g/dL (32-36); Mean Corpuscular Hgb 33.6 pg (27.0-32.0); Mean Corpuscular Volume 92.5 fL (80-94); Mean Platelet Vol. 9.2 fl (6.2-12.0); Monocyte# 0.39 X10^3/uL; Monocyte% 5.6 % (0-10); NRBC Flagged by Analyzer 0 % (0-5); Neutrophil % 73.7 % (47-70); Platelet Count 292 K/mm3 (150-450); RBC Distribution Width CV 11.8 % (11.6-14.6); RBC Distribution Width SD 39.8 fl (35.1-43.9); Red Blood Count 4.29 M/mm3 (4.6-6.2); White Blood Count 6.9 K/mm3 (4.4-11.0)
[2022-02-20] MEDS: 0.9% Normal Saline 1,000 ML 150 ML IV (19:49)
[2022-02-20] MEDS: Metoclopramide 10 MG/2 ML Vial 5 MG IV (19:49)
[2022-02-20 19:54] VITALS: BP 125/96; PULSE 87; RESP 25; O2SAT 97
--- NOTE | 2022-02-20 19:57 | RAD_ITS ---
STUDY: AP PORTABLE UPRIGHT CHEST X-RAY OF 1952 HOURS ON 02/20/2022 REASON FOR EXAM: 82-year-old male with shortness of breath. TECHNIQUE: An AP portable upright chest x-ray was performed per protocol. COMPARISON: 11/18/2021. FINDINGS: Lordotic view. Normal osseous structures are age. Left ventricular cardiac configuration without cardiomegaly or heart failure. No pulmonary infiltrates, atelectasis, effusion, or pulmonary mass lesions. Right-sided Port-A-Cath with its distal tip in the distal superior vena cava. Mildly tortuous thoracic aorta. No interval change since the previous study of 11/18/2021. RAD/Chest 1 View (Portable) IMPRESSION: 1. Left ventricular cardiac progression without cardiomegaly or heart failure. 2. No other evidence of active cardiopulmonary disease. 3. Right-sided Port-A-Cath with its distal tip in the superior vena cava. 4. No interval change since previous study of 11/18/2021. Electronically Signed: Aaron Gil MD at 20:36 EDT ,
[2022-02-20 20:09] LABS: AST(SGOT) 20 U/L (15-37); Alanine Aminotransfer ALT/SGPT 19 U/L (16-61); Albumin, Serum 3.7 g/dL (3.2-5.0); Alkaline Phosphatase 90 U/L (45-117); Anion Gap 6 (5-15); BUN 19 mg/dL (7-18); Bilirubin, Direct 0.14 mg/dL (0.00-0.30); Calcium,Total 8.9 mg/dL (8.5-10.1); Chloride 104 mmol/L (98-107); Creatinine, Serum 1.19 mg/dL (0.70-1.30); EST Glomerular Filtration Rate 62 mL/min (>60); Est Glom Filt Rate - Afr Amer 75 mL/min (>60); Estimated Creatinine Clearance 43.93 ml/min; Globulin 3.9 g/dL (2.2-4.2); Glucose 153 mg/dL (74-106); Lipase 79 U/L (73-393); Potassium 3.1 mmol/L (3.5-5.1); Protein, Total 7.6 g/dL (6.4-8.2); Sodium Level 137 mmol/L (136-145); Troponin-I HS 9 pg/mL (3.0-78.0)
[2022-02-20 21:00] VITALS: BP 142/83; PULSE 75; RESP 16; TEMP 36.6; O2SAT 98
[2022-02-20 21:28] VITALS: BMI 32.4
--- NOTE | 2022-02-20 21:58 | HP.PCM.HOS_ITS ---
[facility] - General General Date of Admission: 02/20/22 Date of Service: 02/20/22 Chief Complaint: Nausea mainly dry heaving, vomiting. HPI Narrative EMPERATRIZ EPPS, is a 82 M with history of melanoma status post excision on Keytruda IV infusion every 3-week and prostate cancer being managed by oncologist was brought by EMS for weakness, nausea mainly driving and some vomiting. Patient not feeling good since morning. Patient also feeling dizzy and lightheaded and vertigo. Denies any focal symptoms of strokelike weakness, numbness, dysarthria, dysphagia, language deficit or blurry vision or loss of vision. Patient has history of Melendrez's palsy for long time. Left-sided facial droop. Patient also has hypothyroidism. In ED he was found to have A. fib with RVR. EMS vitals shows heart rate 116/min. No hypotension. No chest pain, shortness of breath, palpitation or irregular heartbeat. He denies previous history of A. fib but he states he had some dizziness in the past. Twelve-lead EKG shows A. fib with nonspecific ST-T abnormality at 93 bpm. QTc 477 ms. Patient not on anticoagulant at home, only takes baby aspirin. [facility] Medical History Alcohol use Arthritis Melendrez's palsy Benign prostate hyperplasia Cancer Cough Creatinine elevation CRF (chronic renal failure) Drug rash Encounter for immunotherapy Gastric reflux GERD (gastroesophageal reflux disease) Hemorrhoids History of brachytherapy Hx of malignant neoplasm of prostate Hypercholesterolemia Hypertension Hypothyroidism (acquired) Injury of back Malignant melanoma of right heel Non-smoker Open wound of right heel Osteoarthritis of left knee Personal history of colonic polyps Regional lymph node metastasis present Rheumatoid arthritis Sleep disorder Squamous cell carcinoma of skin Wears glasses Home Medications aspirin 81 mg tablet,delayed release 81 mg PO DAILY 10/29/20 [History Last Taken 10/28/20] bisoprolol fumarate 5 mg tablet 2.5 mg PO QHS tab 10/29/20 [History Last Taken Unknown] ipratropium bromide 21 mcg (0.03 %) nasal spray 2 spray INTRANASAL PRN PRN ml 10/29/20 [History Last Taken Unknown] omeprazole 40 mg capsule,delayed release 40 mg PO DAILY cap 10/29/20 [History Last Taken 06/19/21 08:00 40 MG] multivitamin with minerals 1 ea PO DAILY 10/31/20 [History Last Taken Unknown] acetaminophen 500 mg tablet 500 mg PO Q6H PRN 06/05/21 [History Last Taken Unknown] triamcinolone acetonide 0.1 % topical cream 1 applic TOPICAL DAILY PRN 09/15/21 [History Last Taken Unknown] amlodipine 5 mg tablet 5 mg PO DAILY 10/06/21 [History Last Taken Unknown] glucosamine sulfate 500 mg tablet 500 mg PO DAILY tab 11/04/21 [History Last Taken Unknown] zinc 50 mg tablet 50 mg PO DAILY 12/29/21 [History Last Taken Unknown] calcium carbonate 600 mg calcium (1,500 mg) tablet 600 mg PO DAILY 01/20/22 [History Last Taken Unknown] lidocaine-prilocaine 2.5 %-2.5 % topical cream 1 applic TOPICAL ONCE PRN 30 Days #30 g 02/09/22 [Rx Last Taken Unknown] levothyroxine 112 mcg tablet 112 mcg PO DAILY #30 tab 02/10/22 [Rx Last Taken Unknown] Allergy/AdvReac Type Severity Reaction Status Date / Time No Known Allergies Allergy Verified 02/20/22 18:20 Family History Brother Prostate cancer CVA (cerebral vascular accident) Brother Leukemia Father Hypertension Myocardial infarction Mother CHF (congestive heart failure) Surgical History History of root canal procedure Hx of colonoscopy Hx of discectomy Hx of foot operation Hx of hemorrhoidectomy Hx of rotator cuff surgery Social History Smoking Status: Never smoker second hand exposure: No alcohol intake: current alcohol intake frequency: a few times a month details: OCCASIONALLY substance use type: does not use well-balanced diet: about half the time caffeine: Yes Type: coffee Number of servings: 1 eating out: 1-3 times/week what type of physical activity do you participate in: bicycling frequency: 3-4 times per week duration: 15-30 minutes/day melany/druze: Oriental Orthodox seatbelt use: always do you feel safe at home: Yes ROS ROS Narrative Constitutional: Reports fatigue and weakness, dizziness and vertigo HEENT: Reports systems reviewed and no addt'l complaints, except as documented Respiratory/Chest: Denies chest pain, shortness of breath at rest or with exertion Gastrointestinal: Nausea, dry heaving. Small amount of vomiting. No abdominal pain. No GI bleed. Genitourinary: Denies burning urination or new urinary tract symptoms Musculoskeletal: No new joint pain and limited range of motion. Rheumatoid arthritis and degenerative joint arthritis. Neurologic: Melendrez's palsy. Denies seizure-like activity skin: Right heel melanoma excision scar. Endocrinology: Reports systems reviewed and no addt'l complaints, except as documented Hematologic/Lymphatic: Reports systems reviewed and no addt'l complaints, except as documented Rest 14 ROS are negative except as mentioned in HPI Vital Signs Vital Signs Vital Signs: 02/20/22 18:22 02/20/22 19:54 02/20/22 21:00 Temperature 97.7 F L 97.8 F Temperature Source Oral Temporal Pulse Rate 95 87 75 Respiratory Rate 17 25 H 16 Respiratory Effort Normal Non-Labored Respiratory Pattern Normal Blood Pressure 170/119 H 125/96 H 142/83 H Blood Pressure Mean 136 105 102 Pulse Ox 97 97 98 Oxygen Delivery Method Room Air Room Air Room Air Weight Weight: 200 lb 13.4 oz Body Mass Index (BMI) 32.4 Physical Exam Narrative General: Alert, Oriented x3, Cooperative HEENT: Atraumatic, PERRLA, EOMI, Normocephalic Oral: No Gingival or Mucosal Lesions/ Ulcerations Neck: Supple, No JVD, Negative Carotid Bruits Lungs: Air entry diminished in bilateral lung bases. No crepitation/rhonchi Cardiovascular: Irregular rate and rhythm, A. fib, heart rate is controlled, Normal S1, Normal S2, No murmurs Abdomen: Bowel Sounds Present, Soft, Non Tender, Non-Distended : No renal angle tenderness. No suprapubic tenderness. No dysuria or new lower urinary tract symptoms. Extremities: No edema, Capillary Refill Less than 3 Seconds Skin: Scar over right heel. Healed Musculoskeletal:, Degenerative changes at major joints hip and knees. No Tenderness to Palpation of Joints or Extremities Neurological: Left-sided facial droop. Melendrez's palsy. DTR 2+/4 and Symmetrical, Neuro grossly intact. Muscle strength 5/5 at major joints. NIH scale 1 from Melendrez's palsy. Psych/Mental Status: Normal Affect, Appropriate Results Lab / Micro Data Result Diagrams: 02/20/22 19:40 02/20/22 19:40 Labs: Laboratory Results - last 24 hr 02/20/22 18:40: Urine Color Yellow, Urine Clarity Clear, Urine pH 7.0, Ur Specific [place] 1.010, Urine Protein Negative, Urine Glucose (UA) Normal, Urine Ketones 5 H, Urine Occult Blood Negative, Urine Nitrite Negative, Urine Bilirubin Negative, Urine Urobilinogen Normal, Ur Leukocyte Esterase Negative, Urine RBC 0-5 SEEN, Urine WBC 0 SEEN, Ur Squamous Epith Cells 0 SEEN, Urine Bacteria 0 SEEN, Urine Mucus 0 SEEN 02/20/22 19:40: WBC 6.9, RBC 4.29 L, Hgb 14.4, Hct 39.7 L, MCV 92.5, MCH 33.6 H, MCHC 36.3 H, RDW Std Deviation 39.8, RDW Coeff of Halley 11.8, Plt Count 292, MPV 9.2, Immature Gran % (Auto) 0.400, Neut % (Auto) 73.7 H, Lymph % (Auto) 18.3 L, [place] % (Auto) 5.6, Eos % (Auto) 1.6, Baso % (Auto) 0.4, Absolute Neuts (auto) 5.1, Absolute Lymphs (auto) 1.27, Nucleated RBC % 0 02/20/22 19:40: Sodium 137, Potassium 3.1 L, Chloride 104, Carbon Dioxide 27.0, Anion Gap 6, BUN 19 H, Creatinine 1.19, Estim Creat Clear Calc 43.93, Est GFR (MDRD) Af Amer 75, Est GFR (MDRD) Non-Af 62, BUN/Creatinine Ratio 16.0, Glucose 153 H, Calcium 8.9, Total Bilirubin 0.50, Direct Bilirubin 0.14, AST 20, ALT 19, Alkaline Phosphatase 90, Troponin I High Sens 9, Total Protein 7.6, Albumin 3.7, Globulin 3.9, Lipase 79 Radiology Impression Chest X-Ray 02/20/22 19:57 IMPRESSION: 1. Left ventricular cardiac progression without cardiomegaly or heart failure. 2. No other evidence of active cardiopulmonary disease. 3. Right-sided Port-A-Cath with its distal tip in the superior vena cava. 4. No interval change since previous study of 11/18/2021. Electronically Signed: Aaron Gil MD at 20:36 EDT , Assessment & Plan Assessment/Plan (1) Atrial fibrillation, new onset: (2) Hypokalemia: PLAN: 1. A. fib with RVR, new onset: Patient is being admitted in PCU as observation. Patient does not have chest pain or shortness of breath or any new cardiopulmonary symptoms. Troponin is negative. Heart rate is controlled. Had 1 dose of therapeutic dose of Lovenox in ED. Started on Eliquis 5 mg p.o. twice daily. Discontinue baby aspirin. Discussed with the scale attendant Dr. Trotter and consult requested. Started metoprolol 12.5 mg p.o. twice daily. TSH, A1c tomorrow a.m. 2D echo tomorrow a.m. 2. Hypokalemia: Potassium is getting replaced. Serum magnesium and phosphorus ordered. 3. Hypothyroidism: TSH tomorrow a.m. Patient saw Dr. Martín Ventura for hypothyroidism in October 2021. Hyperglycemia 153 in BMP. Patient does not have history of diabetes. Last recorded 95 on 02/09/2022. 4. Prostate cancer, history of malignant melanoma status post resection on IV Keytruda. Patient follows Dr. Souza. He asked me about interaction of Keytruda with DOAC with Keytruda and I do not see any significant interaction with Xarelto or Eliquis. 5. Hypertension: Patient on bisoprolol which is on hold as patient started on metoprolol. 6. Rheumatoid arthritis, history of rotator cuff surgery, details went arthritis and Melendrez's palsy: Patient on multivitamin zinc glucosamine sulfate and calcium carbonate which is held because of nonformulary. VT prophylaxis: On apixaban. Living will/advanced directive/end of life care: Patient does have living will or advanced directive. After discussion of benefits/risks procedures involved with full code, DNR CC arrest and DNR CC, the patient opted for full code. Patient doesn't want artificial life support including intubation, tube feed, ventilator and/chest compression, central venous catheter, vasopressor and DC shock if needed Total time spent in [id number] encounter in discussion of advanced directive 16 minutes. Charges/Coding Visit Charges OBSV E&M: 23376 Initial observation care L3 Procedures Hospitalists Procedures: 75959 Advncd Care Plan 30 Min
[2022-02-20 22:21] LABS: Phosphorus 1.9 mg/dL (2.5-4.9)
[2022-02-20] MEDS: Potassium Chloride 10mEq/100mL 10 MEQ/100 ML IV.SOLN. 100 MEQ IV BOLUS ×2 (22:37→23:45)
[2022-02-20] MEDS: Potassium Chloride Oral Tablet 20 MEQ 40 MEQ PO (22:37)
[2022-02-20] MEDS: Enoxaparin 100 MG/ML Syringe 90 MG SC (22:37)
[2022-02-20 22:57] VITALS: PULSE 76
[2022-02-20] MEDS: Metoprolol Tartrate 25 MG Tablet 12.5 MG PO (22:57)
[2022-02-20 23:50] LABS: Troponin-I HS 11 pg/mL (3.0-78.0)
[2022-02-21] VITALS (16 sets, daily range): BP systolic 123–180; BP diastolic 85–99; PULSE 60–77; RESP 16–20; TEMP 36.5–37.2; O2SAT 95–100
[2022-02-21] MEDS: Potassium Chloride 10mEq/100mL 10 MEQ/100 ML IV.SOLN. 100 MEQ IV BOLUS ×2 (00:50→01:56)
[2022-02-21] MEDS: Lactated Ringers 1,000 ML 75 ML IV (02:52)
[2022-02-21] MEDS: Levothyroxine 112 MCG Tablet PO (05:19)
--- NOTE | 2022-02-21 05:55 | ECHOD_ITS ---
Reason For Study: AFIB W/ RVR Procedure This was a 2D Doppler, Color Flow transthoracic echocardiogram. Exam performed portable in patient room. Left Ventricle Normal left ventricle. The estimated ejection fraction is 55-60 %. Right Ventricle Normal right ventricle. Normal systolic function. Atria Normal left atrium. Normal right atrium. Mitral Valve The mitral valve is structurally normal. No prolapse or stenosis seen. Mild (1+) mitral valve insufficiency. Tricuspid Valve Normal tricuspid valve. No tricuspid valve insufficiency. Aortic Valve Moderate diffuse aortic valve calcification. Mild aortic stenosis. Pulmonic Valve The pulmonic valve is not well visualized. Great Vessels Normal aortic root. Pericardium/Pleural No pericardial effusion. MMode/2D Measurements & Calculations LVIDd: 4.6 cm IVSd: 0.87 cm LVOT diam: 2.0 cm LVIDs: 3.0 cm LVPWd: 0.85 cm LVOT area: 3.1 cm2 RVDd: 2.8 cm FS: 33.7 % Ao root diam: 4.1 cm LAV(MOD-bp): 72.0 ml LA A4 area: 24.2 cm2 LA dimension: 4.1 cm LAV(MOD-bp) Indexed: 36.0 ml/m2 LAV(MOD-sp2): 64.5 ml LAV(MOD-sp4): 65.2 ml RA A4 area: 19.8 cm2 Time Measurements MV dec time: 0.26 sec Doppler Measurements & Calculations MV E max william: 85.8 cm/sec Lat Peak E' William: 11.6 cm/sec Med Peak E' William: 6.2 cm/sec MV A max william: 79.0 cm/sec E/E' lat: 7.4 E/E' med: 13.8 MV E/A: 1.1 Ao V2 max: 189.5 cm/sec LV V1 max: 93.2 cm/sec SV(LVOT): 69.2 ml Ao max P.4 mmHg LV V1 max P.5 mmHg Ao V2 mean: 136.9 cm/sec LV V1 mean P.0 mmHg Ao mean P.3 mmHg LV V1 mean: 67.4 cm/sec Ao V2 VTI: 40.3 cm LV V1 VTI: 22.0 cm THEO(I,D): 1.7 cm2 THEO(V,D): 1.5 cm2 PA V2 max: 120.7 cm/sec TR max william: 275.9 cm/sec TR max P.4 mmHg ECHO/Echo Complete Interpretation Summary The estimated ejection fraction is 55-60 %. Normal LV systolic function Mild As mild MR Ordering Physician: Samuel Joel Referring Physician: GUS SIMS Performed By: Lorrie Turner, BASSAM, RVT
[2022-02-21 07:28] LABS: Anion Gap 4 (5-15); BUN 15 mg/dL (7-18); BUN/Creat Ratio 15.3 RATIO (10-20); Calcium,Total 8.2 mg/dL (8.5-10.1); Chloride 109 mmol/L (98-107); Cholesterol 193 mg/dL (200); Creatinine, Serum 0.98 mg/dL (0.70-1.30); EST Glomerular Filtration Rate 78 mL/min (>60); Est Glom Filt Rate - Afr Amer 94 mL/min (>60); Estimated Creatinine Clearance 53.35 ml/min; Glucose 105 mg/dL (74-106); High Density Lipoprotein 29 mg/dL; Potassium 3.4 mmol/L (3.5-5.1); Sodium Level 138 mmol/L (136-145); Thyroid Stim Hormone (TSH) 7.59 uIU/mL (0.358-3.74); Triglycerides 151 mg/dL; Very Low Density Lipoprotein 30 mg/dL (5-40)
[2022-02-21] MEDS: Aspirin E.C. 81 MG Tablet PO (08:11)
[2022-02-21] MEDS: APIXABAN 5 MG TABLET PO ×2 (08:11→21:37)
[2022-02-21] MEDS: amLODIPine 5 MG Tablet PO (08:11)
[2022-02-21] MEDS: Pantoprazole Sodium 40 MG Tablet PO (08:11)
[2022-02-21] MEDS: Metoprolol Tartrate 25 MG Tablet 12.5 MG PO ×2 (08:11→21:36)
[2022-02-21 08:24] LABS: T4 Free Direct 1.27 ng/dL (0.76-1.46)
[2022-02-21 09:21] LABS: Hemoglobin A1c 5.4 % (3.8-5.6)
[2022-02-21] MEDS: 0.9% Saline Lock 10 ML Syringe IV ×3 (09:36→16:25)
[2022-02-21] MEDS: Ondansetron 4 MG/2 ML Vial IV (09:48)
--- NOTE | 2022-02-21 10:59 | PCM.PN.HOSP ---
Documented by User: Donna Andrew ELECTRONIC SERVICE TECHNICIAN, ELECTRONIC SERVICE TECHNICIAN-C 02/21/22 11:05 Subjective Subjective Patient seen and examined. Reports dizziness with nausea and vomiting. Worse with moving head. Feels like the room is spinning. Denies chest pain, palpitations. Objective Data Objective Data Vital Signs: Vital Signs Temp Pulse Resp BP Pulse Ox 98.8 F 70 16 145/98 H 98 02/21/22 08:00 02/21/22 08:11 02/21/22 08:00 02/21/22 08:11 02/21/22 08:20 Oxygen Delivery Method Room Air Weight: 200 lb 13.458 oz Body Mass Index (BMI) 32.4 Intake & Output: Intake and Output for Last 24 Hours 02/19/22 02/20/22 02/21/22 23:59 23:59 23:59 Intake Total 100 / 650 2355 / 2355 Output Total 650 / 650 Balance 100 / 0 1705 / 1705 Lab / Micro Data Result Diagrams: 02/20/22 19:40 02/21/22 06:30 Labs: Laboratory Results - last 24 hr 02/20/22 18:40: Urine Color Yellow, Urine Clarity Clear, Urine pH 7.0, Ur Specific [place] 1.010, Urine Protein Negative, Urine Glucose (UA) Normal, Urine Ketones 5 H, Urine Occult Blood Negative, Urine Nitrite Negative, Urine Bilirubin Negative, Urine Urobilinogen Normal, Ur Leukocyte Esterase Negative, Urine RBC 0-5 SEEN, Urine WBC 0 SEEN, Ur Squamous Epith Cells 0 SEEN, Urine Bacteria 0 SEEN, Urine Mucus 0 SEEN 02/20/22 19:40: WBC 6.9, RBC 4.29 L, Hgb 14.4, Hct 39.7 L, MCV 92.5, MCH 33.6 H, MCHC 36.3 H, RDW Std Deviation 39.8, RDW Coeff of Halley 11.8, Plt Count 292, MPV 9.2, Immature Gran % (Auto) 0.400, Neut % (Auto) 73.7 H, Lymph % (Auto) 18.3 L, [place] % (Auto) 5.6, Eos % (Auto) 1.6, Baso % (Auto) 0.4, Absolute Neuts (auto) 5.1, Absolute Lymphs (auto) 1.27, Nucleated RBC % 0 02/20/22 19:40: Sodium 137, Potassium 3.1 L, Chloride 104, Carbon Dioxide 27.0, Anion Gap 6, BUN 19 H, Creatinine 1.19, Estim Creat Clear Calc 43.93, Est GFR (MDRD) Af Amer 75, Est GFR (MDRD) Non-Af 62, BUN/Creatinine Ratio 16.0, Glucose 153 H, Calcium 8.9, Total Bilirubin 0.50, Direct Bilirubin 0.14, AST 20, ALT 19, Alkaline Phosphatase 90, Troponin I High Sens 9, Total Protein 7.6, Albumin 3.7, Globulin 3.9, Lipase 79 02/20/22 19:40: Phosphorus 1.9 L, Magnesium 2.0 02/20/22 23:23: Troponin I High Sens 11 02/21/22 04:30: Free T4 1.27 02/21/22 06:30: Sodium 138, Potassium 3.4 L, Chloride 109 H, Carbon Dioxide 25.0, Anion Gap 4 L, BUN 15, Creatinine 0.98, Estim Creat Clear Calc 53.35, Est GFR (MDRD) Af Amer 94, Est GFR (MDRD) Non-Af 78, BUN/Creatinine Ratio 15.3, Glucose 105, Calcium 8.2 L, Triglycerides 151, Cholesterol 193, LDL Cholesterol 134 H, VLDL Cholesterol 30, HDL Cholesterol 29 L, TSH 7.59 H 02/21/22 06:30: Hemoglobin A1c 5.4 Radiography Diagnostic Testing: Radiology Impression Chest X-Ray 02/20/22 19:57 IMPRESSION: 1. Left ventricular cardiac progression without cardiomegaly or heart failure. 2. No other evidence of active cardiopulmonary disease. 3. Right-sided Port-A-Cath with its distal tip in the superior vena cava. 4. No interval change since previous study of 11/18/2021. Electronically Signed: Aaron Gil MD at 20:36 EDT , Physical Exam Const alert, oriented x3 and no apparent distress Constitutional Narrative: Nauseated Orientation / Consciousness: awake, oriented to person, oriented to place and oriented to time HEENT normocephalic and moist oral mucous membranes Eyes PERRL, EOMs intact bilaterally and conjunctivae normal Neck no lymphadenopathy Resp normal respiratory effort and clear to auscultation bilaterally Cardio regular rate, regular rhythm and no murmurs Peripheral Pulses: pulses 2+ throughout GI normal to inspection, nondistended, normoactive bowel sounds, non-tender and non-distended Extremity normal to inspection Skin no rashes or lesions noted Lesions: no lesions Rashes: no rashes Trauma: no lacerations or abrasions Neuro CN's II-XII intact bilaterally, no focal motor deficits, no sensory deficits noted and deep tendon reflexes 2+ bilaterally Psych mental status grossly normal and affect normal Assessment & Plan Assessment/Plan (1) Atrial fibrillation, new onset: PLAN: 1. New onset A. fib with RVR-converted to sinus rhythm. Continue metoprolol, Eliquis. Echocardiogram completed, report pending. 2. Hypokalemia-replace per protocol, trend BMP. 3. Vertigo with intractable nausea/vomiting-as needed antiemetics. As needed meclizine. PT/OT. If symptoms are persistent, may need additional imaging. 4. Hypothyroidism-TSH 7.5, free T4 1.2. Continue home Synthroid regimen. Continue outpatient follow-up with endocrinology. 5. Malignant melanoma status post resection/history of prostate cancer-follows with Dr. Souza. On Keytruda through May 2022 for melanoma. 6. Hypertension-transition to metoprolol for A. fib. Continue amlodipine. Stable. 7. Rheumatoid arthritis-not on regimen. As needed Tylenol. On glucosamine. 8. GERD-continue PPI. DVT prophylaxis- Eliquis This patient was seen by SONJA Kwong under the supervision of Dr. Griffith. Time spent examining patient, reviewing data and subsequent management of care: 13 Minutes Documented by User: Dr. Erica Griffith MD 02/21/22 14:26 Objective Data Lab / Micro Data Result Diagrams: 02/20/22 19:40 02/21/22 06:30
[2022-02-21] MEDS: Meclizine HCl 25 MG Tablet PO (11:36)
--- NOTE | 2022-02-21 13:45 | CON.PCM.CA_ITS ---
Assessment & Plan Assessment/Plan (1) CRF (chronic renal failure): QUALIFIERS: Chronic kidney disease stage: stage 3 (moderate) Chronic kidney disease stage 3 subtype: unspecified whether 3a or 3b Qualified Code(s): N18.30 - Chronic kidney disease, stage 3 unspecified (2) Hypothyroidism (acquired): (3) Malignant melanoma of right heel: (4) Atrial fibrillation, new onset: PLAN: This patient with multiple medical comorbidities, presented with symptoms of dizziness lightheadedness Mild palpitation He does not have active chest pain. Patient denies any prior cardiac history Noted to have atrial fibrillation with rapid ventricular rate Converted to normal sinus rhythm Cardiac care plan and recommendations; 1. The echo evaluation showed LV function preserved with mild AAS, mild MR Continue anticoagulation with Eliquis based on the creatinine clearance/dose adjustment 2. To continue on beta-ryder bisoprolol If he remains stable he can be evaluated with event monitor and myocardial perfusion study/Lexiscan sestamibi as an outpatient And to follow-up with the cardiology at [facility]. HPI Consult Data Date of Consult: 02/21/22 HPI Narrative Reason for Consultation: A. fib with RVR HPI Narrative: EMPERATRIZ EPPS, is a 82 M who presents [facility] Medical History Alcohol use Arthritis Melendrez's palsy Benign prostate hyperplasia Cancer Cough Creatinine elevation CRF (chronic renal failure) Drug rash Encounter for immunotherapy Gastric reflux GERD (gastroesophageal reflux disease) Hemorrhoids History of brachytherapy Hx of malignant neoplasm of prostate Hypercholesterolemia Hypertension Hypothyroidism (acquired) Injury of back Malignant melanoma of right heel Non-smoker Open wound of right heel Osteoarthritis of left knee Personal history of colonic polyps Regional lymph node metastasis present Rheumatoid arthritis Sleep disorder Squamous cell carcinoma of skin Wears glasses Home Medications aspirin 81 mg tablet,delayed release 81 mg PO DAILY 10/29/20 [History Last Taken 10/28/20] bisoprolol fumarate 5 mg tablet 2.5 mg PO QHS tab 10/29/20 [History Last Taken Unknown] ipratropium bromide 21 mcg (0.03 %) nasal spray 2 spray INTRANASAL PRN PRN ml 10/29/20 [History Last Taken Unknown] omeprazole 40 mg capsule,delayed release 40 mg PO DAILY cap 10/29/20 [History Last Taken 06/19/21 08:00 40 MG] multivitamin with minerals 1 ea PO DAILY 10/31/20 [History Last Taken Unknown] acetaminophen 500 mg tablet 500 mg PO Q6H PRN 06/05/21 [History Last Taken Unknown] triamcinolone acetonide 0.1 % topical cream 1 applic TOPICAL DAILY PRN 09/15/21 [History Last Taken Unknown] amlodipine 5 mg tablet 5 mg PO DAILY 10/06/21 [History Last Taken Unknown] glucosamine sulfate 500 mg tablet 500 mg PO DAILY tab 11/04/21 [History Last Taken Unknown] zinc 50 mg tablet 50 mg PO DAILY 12/29/21 [History Last Taken Unknown] calcium carbonate 600 mg calcium (1,500 mg) tablet 600 mg PO DAILY 01/20/22 [History Last Taken Unknown] lidocaine-prilocaine 2.5 %-2.5 % topical cream 1 applic TOPICAL ONCE PRN 30 Days #30 g 02/09/22 [Rx Last Taken Unknown] levothyroxine 112 mcg tablet 112 mcg PO DAILY #30 tab 02/10/22 [Rx Last Taken Unknown] Allergy/AdvReac Type Severity Reaction Status Date / Time No Known Allergies Allergy Verified 02/20/22 18:20 Family History Brother Prostate cancer CVA (cerebral vascular accident) Brother Leukemia Father Hypertension Myocardial infarction Mother CHF (congestive heart failure) Surgical History History of root canal procedure Hx of colonoscopy Hx of discectomy Hx of foot operation Hx of hemorrhoidectomy Hx of rotator cuff surgery Social History Smoking Status: Never smoker second hand exposure: No alcohol intake: current alcohol intake frequency: a few times a month details: OCCASIONALLY substance use type: does not use well-balanced diet: about half the time caffeine: Yes Type: coffee Number of servings: 1 eating out: 1-3 times/week what type of physical activity do you participate in: bicycling frequency: 3-4 times per week duration: 15-30 minutes/day melany/pentecostal: Nondenominational seatbelt use: always do you feel safe at home: Yes Physical Exam Narrative Patient seen evaluated at bedside Review of the cardiac telemetry showed underlying atrial fibrillation converted to normal sinus rhythm Cardiovascular exam S1-S2 regular, soft systolic murmur in the aortic valve area Chest exam clear to auscultation bilateral Abdomen soft Examination lower extremity no clubbing no lower extremity edema noted pedal pulses palpable Risk Stratification Risk Stratification Applicable: Yes Age >/= 65: Yes >/= 3 CAD Risk Factors (HTN, HLD, DM, family hx of CAD, or current smoker): No Aspirin Use in the Past 7 Days: Yes Severe Angina (>/= episodes in 24 hours): No EKG ST Changes >/= 0.5mm: No Positive Cardiac Marker: No SUNITHA Risk Stratification Score: 2 SUNITHA % Risk: 8% Risk Objective Data Vital Signs: Vital Signs Temp Pulse Resp BP Pulse Ox 98.8 F 70 16 145/98 H 98 02/21/22 08:00 02/21/22 08:11 02/21/22 08:00 02/21/22 08:11 02/21/22 08:20 Oxygen Delivery Method Room Air Weight: 200 lb 13.458 oz Body Mass Index (BMI) 32.4 Intake & Output: Intake and Output for Last 24 Hours 02/19/22 02/20/22 02/21/22 23:59 23:59 23:59 Intake Total 100 / 650 2775 / 2775 Output Total 650 / 650 Balance 100 / 0 2125 / 2125 Lab / Micro Data Result Diagrams: 02/20/22 19:40 02/21/22 06:30 Labs: Laboratory Results - last 24 hr 02/20/22 18:40: Urine Color Yellow, Urine Clarity Clear, Urine pH 7.0, Ur Specific [place] 1.010, Urine Protein Negative, Urine Glucose (UA) Normal, Urine Ketones 5 H, Urine Occult Blood Negative, Urine Nitrite Negative, Urine Bilirubin Negative, Urine Urobilinogen Normal, Ur Leukocyte Esterase Negative, Urine RBC 0-5 SEEN, Urine WBC 0 SEEN, Ur Squamous Epith Cells 0 SEEN, Urine Bacteria 0 SEEN, Urine Mucus 0 SEEN 02/20/22 19:40: WBC 6.9, RBC 4.29 L, Hgb 14.4, Hct 39.7 L, MCV 92.5, MCH 33.6 H, MCHC 36.3 H, RDW Std Deviation 39.8, RDW Coeff of Halley 11.8, Plt Count 292, MPV 9.2, Immature Gran % (Auto) 0.400, Neut % (Auto) 73.7 H, Lymph % (Auto) 18.3 L, [place] % (Auto) 5.6, Eos % (Auto) 1.6, Baso % (Auto) 0.4, Absolute Neuts (auto) 5.1, Absolute Lymphs (auto) 1.27, Nucleated RBC % 0 02/20/22 19:40: Sodium 137, Potassium 3.1 L, Chloride 104, Carbon Dioxide 27.0, Anion Gap 6, BUN 19 H, Creatinine 1.19, Estim Creat Clear Calc 43.93, Est GFR (MDRD) Af Amer 75, Est GFR (MDRD) Non-Af 62, BUN/Creatinine Ratio 16.0, Glucose 153 H, Calcium 8.9, Total Bilirubin 0.50, Direct Bilirubin 0.14, AST 20, ALT 19, Alkaline Phosphatase 90, Troponin I High Sens 9, Total Protein 7.6, Albumin 3.7, Globulin 3.9, Lipase 79 02/20/22 19:40: Phosphorus 1.9 L, Magnesium 2.0 02/20/22 23:23: Troponin I High Sens 11 02/21/22 04:30: Free T4 1.27 02/21/22 06:30: Sodium 138, Potassium 3.4 L, Chloride 109 H, Carbon Dioxide 25.0, Anion Gap 4 L, BUN 15, Creatinine 0.98, Estim Creat Clear Calc 53.35, Est GFR (MDRD) Af Amer 94, Est GFR (MDRD) Non-Af 78, BUN/Creatinine Ratio 15.3, Glucose 105, Calcium 8.2 L, Triglycerides 151, Cholesterol 193, LDL Cholesterol 134 H, VLDL Cholesterol 30, HDL Cholesterol 29 L, TSH 7.59 H 02/21/22 06:30: Hemoglobin A1c 5.4 Cardiology Labs/Tests 02/20/22 18:40: Urine Color Yellow, Urine Clarity Clear, Urine pH 7.0, Ur Specific [place] 1.010, Urine Protein Negative, Urine Glucose (UA) Normal, Urine Ketones 5 H, Urine Occult Blood Negative, Urine Nitrite Negative, Urine Bilirubin Negative, Urine Urobilinogen Normal, Ur Leukocyte Esterase Negative, Urine RBC 0-5 SEEN, Urine WBC 0 SEEN 02/20/22 19:40: WBC 6.9, RBC 4.29 L, Hgb 14.4, Hct 39.7 L, MCV 92.5, MCH 33.6 H, MCHC 36.3 H, Plt Count 292, MPV 9.2, Immature Gran % (Auto) 0.400, Neut % (Auto) 73.7 H, Lymph % (Auto) 18.3 L, [place] % (Auto) 5.6, Eos % (Auto) 1.6, Baso % (Auto) 0.4, Absolute Neuts (auto) 5.1, Nucleated RBC % 0 02/20/22 19:40: Sodium 137, Potassium 3.1 L, Chloride 104, Carbon Dioxide 27.0, Anion Gap 6, BUN 19 H, Creatinine 1.19, Est GFR (MDRD) Af Amer 75, Est GFR (MDRD) Non-Af 62, BUN/Creatinine Ratio 16.0, Glucose 153 H, Calcium 8.9, Total Bilirubin 0.50, Direct Bilirubin 0.14 02/20/22 19:40: Phosphorus 1.9 L, Magnesium 2.0 02/21/22 06:30: Sodium 138, Potassium 3.4 L, Chloride 109 H, Carbon Dioxide 25.0, Anion Gap 4 L, BUN 15, Creatinine 0.98, Est GFR (MDRD) Af Amer 94, Est GFR (MDRD) Non-Af 78, BUN/Creatinine Ratio 15.3, Glucose 105, Calcium 8.2 L, Triglycerides 151, Cholesterol 193, LDL Cholesterol 134 H, VLDL Cholesterol 30, HDL Cholesterol 29 L 02/21/22 06:30: Hemoglobin A1c 5.4 Rhythm: A. fib with RVR converted to sinus rhythm EKG: Underlying atrial fibrillation no significant ST?T abnormalities noted ECHO: LV function preserved ejection fraction 55-60% Mild Mild MR Radiography Diagnostic Testing: Radiology Impression Chest X-Ray 02/20/22 19:57 IMPRESSION: 1. Left ventricular cardiac progression without cardiomegaly or heart failure. 2. No other evidence of active cardiopulmonary disease. 3. Right-sided Port-A-Cath with its distal tip in the superior vena cava. 4. No interval change since previous study of 11/18/2021. Electronically Signed: Aaron Gil MD at 20:36 EDT , Echocardiogram 02/21/22 05:55 Interpretation Summary The estimated ejection fraction is 55-60 %. Normal LV systolic function Mild As mild MR Ordering Physician: Samuel Joel Referring Physician: GUS SIMS Performed By: Lorrie Turner, BASSAM, RVT
[2022-02-21] MEDS: proMETHazine 25 MG Tablet 12.5 MG PO (14:07)
--- NOTE | 2022-02-21 14:45 | CASEMGMT ---
RN CM GUEST RELATIONS ASSOCIATE CM to room to meet with patient for initial transition planning/care coordination assessment. RN SLIM introduced self and role at [facility]. Pt voices understanding and consents to assessment at this time. Pt resting in bed. Pt w/intermitent dizziness, but states is willing and able to speak w/RN CM at this time. Pt is A/O at this time and answers all questions appropriately. Care providers, pharmacy, and demographics verified/updated at this time. PCP: Dr Dolan Specialists:Dr Souza--oncology, Dr Figueredo-urology, Dr Mcgarry-nephrology, Dr Ventura-endocrinology [facility]erred Pharmacy: [facility] Insurance:[employer] [facility] Prescription Benefit: Yes. Pt to d/c home on Eliquis. 30-day savings card provided to pt and instructed on use. Pt made aware, if refills are not affordable, to discuss other options w/PCP. He voices understanding. Living Will/HPOA: has completed both LW and HPOA, who is his daughter, Mecca LNOK:Mecca Robles/Margaret JENSEN, Karey, Tariq Yoo Living Arrangements: Lives alone in one-story home w/1 step to enter. Independent prior to hospitalization. BrotherTariq, is traveling from [place] and plans to stay w/pt for awhile. Pt states, He'll stay as long as I need. Transportation: Pt states drives self and states no transportation concerns at this time. BrothTariq her, will take pt home @ d/c DME: Denies using any DME and denies needs. Has a cane available, but does not use. HHC/SNF: No hx of SNF. Has had HHC in the past. Denies need for HHC and no needs identified. [facility] form explained re: Observation status for treatment of A-Fib w/RVR. Explained hospitalization will be paid per his insurance policy for Outpatient billing and condition will continue to be evaluated for Inpt necessity. Also let pt know that [facility] sends paper in the billing packet with their phone number if questions arise. Discussed Pharmacy section of [facility] form and self administered medication guideline. Pt verbalizes understanding and does not have further questions. Form signed, copy made and placed in chart, and original given to pt. Pt wishes to return home. Pt states does not smoke and he drinks occasional ETOH--less than once a month. Advised pt to ask for CM if any further questions/concerns/needs arise. Voices understanding. PLAN: Home w/discharge plans in place. Cornelius NUGENTN RN CM
--- NOTE | 2022-02-21 15:12 | MRI_ITS ---
STUDY: MRI BRAIN WITHOUT CONTRAST REASON FOR EXAM: Male, 82 years old. r/o stroke TECHNIQUE: Standardized multiplanar fat and water weighted pulse sequences were obtained. COMPARISON: CT head 10/22/2021, MRI 10/22/2021. FINDINGS: No intracranial mass, mass effect, or midline shift. No hemorrhage, territorial infarct or acute ischemia. There is mild cerebral atrophy with widening of the extra-axial spaces and ventricular dilatation. Multiple T2 hyperintense foci in the periventricular and deep white matter, without significant change from the prior study. These are most consistent with microvascular ischemia given the patient''s age. Demyelination is less likely but not excluded. Normal bilateral basal ganglia. Normal thalami. There is no extra-axial fluid accumulation. Normal flow voids within the major intracranial circulation suggesting patency by spin echo criteria. Normal sella turcica, pituitary gland, infundibular stalk, optic chiasm and hypothalamus. Normal midbrain, jerson and medulla. Normal cerebellum. Normal basal cisterns. Normal bilateral temporal bones. Normal bilateral internal auditory canals. Normal visualized paranasal sinuses. Normal calvarium and skull base. Normal visualized soft tissue structures. MRI/Brain without Contrast IMPRESSION: No acute findings. Stable white matter lesions for which chronic vascular ischemia is favored over demyelination. Electronically Signed: Aby Head MD at 16:09 EDT Reading Location ID and State: [id number] / Tel , Service support ,
[2022-02-22] VITALS (10 sets, daily range): BP systolic 122–151; BP diastolic 72–99; PULSE 56–72; RESP 16–18; TEMP 36.6–37.3; O2SAT 94–99
[2022-02-22] MEDS: Levothyroxine 112 MCG Tablet PO (05:09)
[2022-02-22 06:59] LABS: Anion Gap 4 (5-15); BUN 15 mg/dL (7-18); BUN/Creat Ratio 12.8 RATIO (10-20); Calcium,Total 8.7 mg/dL (8.5-10.1); Chloride 111 mmol/L (98-107); Creatinine, Serum 1.17 mg/dL (0.70-1.30); EST Glomerular Filtration Rate 64 mL/min (>60); Est Glom Filt Rate - Afr Amer 77 mL/min (>60); Estimated Creatinine Clearance 44.68 ml/min; Glucose 89 mg/dL (74-106); Potassium 3.4 mmol/L (3.5-5.1); Sodium Level 139 mmol/L (136-145)
[2022-02-22] MEDS: Meclizine HCl 25 MG Tablet PO (08:08)
[2022-02-22] MEDS: Ondansetron 4 MG/2 ML Vial IV ×2 (08:15→21:04)
[2022-02-22] MEDS: 0.9% Saline Lock 10 ML Syringe IV ×3 (08:15→21:04)
[2022-02-22] MEDS: Pantoprazole Sodium 40 MG Tablet PO (08:16)
[2022-02-22] MEDS: Aspirin E.C. 81 MG Tablet PO (08:16)
[2022-02-22] MEDS: amLODIPine 5 MG Tablet PO (09:45)
[2022-02-22] MEDS: Metoprolol Tartrate 25 MG Tablet 12.5 MG PO (09:45)
[2022-02-22] MEDS: diazePAM 2 MG Tablet 4 MG PO ×3 (10:08→21:04)
[2022-02-22] MEDS: Potassium Chloride 10mEq/100mL 10 MEQ/100 ML IV.SOLN. 100 MEQ IV BOLUS ×2 (10:08→11:27)
[2022-02-22] MEDS: APIXABAN 5 MG TABLET PO ×2 (10:08→21:05)
--- NOTE | 2022-02-22 11:18 | PN.HOSP_ITS ---
Documented by User: Donna Andrew NP, PACKAGE COLLECTOR-C 02/22/22 11:29 Subjective Subjective Patient seen and examined. Continues to have intractable dizziness with nausea. Reports increased dizziness with any movement. He has only been drinking liquids as he is afraid if he eats he will vomit. Patient tearful as he states these symptoms are miserable. Denies chest pain, shortness of breath. Denies other symptoms or complaints. Objective Data Objective Data Vital Signs: Vital Signs Temp Pulse Resp BP Pulse Ox 98.1 F 70 16 147/72 H 99 02/22/22 09:44 02/22/22 09:45 02/22/22 09:44 02/22/22 09:45 02/22/22 09:44 Oxygen Delivery Method Room Air Weight: 201 lb 11.567 oz Body Mass Index (BMI) 32.4 Intake & Output: Intake and Output for Last 24 Hours 02/20/22 02/21/22 02/22/22 23:59 23:59 23:59 Intake Total 100 / 650 3890.0 / 4130.0 300 / 300 Output Total 1100 / 1750 1175 / 1175 Balance 100 / 0 2790.0 / 2380.0 -875 / -875 Lab / Micro Data Result Diagrams: 02/20/22 19:40 02/22/22 06:14 Labs: Laboratory Results - last 24 hr 02/22/22 06:14: Sodium 139, Potassium 3.4 L, Chloride 111 H, Carbon Dioxide 24.0, Anion Gap 4 L, BUN 15, Creatinine 1.17, Estim Creat Clear Calc 44.68, Est GFR (MDRD) Af Amer 77, Est GFR (MDRD) Non-Af 64, BUN/Creatinine Ratio 12.8, Glucose 89, Calcium 8.7 Radiography Diagnostic Testing: Radiology Impression Echocardiogram 02/21/22 05:55 Interpretation Summary The estimated ejection fraction is 55-60 %. Normal LV systolic function Mild As mild MR Ordering Physician: Samuel Joel Referring Physician: GUS SIMS Performed By: Lorrie Turner, BASSAM, RVT Brain MRI 02/21/22 15:12 IMPRESSION: No acute findings. Stable white matter lesions for which chronic vascular ischemia is favored over demyelination. Electronically Signed: Aby Head MD at 16:09 EDT , Physical Exam Const alert, oriented x3 and no apparent distress Constitutional Narrative: Appears uncomfortable, lying on left side to avoid vertigo symptoms Orientation / Consciousness: awake, oriented to person, oriented to place and oriented to time HEENT normocephalic Mouth: dry mucous membranes Eyes PERRL, EOMs intact bilaterally and conjunctivae normal Neck no lymphadenopathy Resp normal respiratory effort and clear to auscultation bilaterally Cardio regular rate, regular rhythm and no murmurs Peripheral Pulses: pulses 2+ throughout GI normal to inspection, nondistended, normoactive bowel sounds, non-tender and non-distended Extremity normal to inspection Skin no rashes or lesions noted Lesions: no lesions Rashes: no rashes Trauma: no lacerations or abrasions Neuro CN's II-XII intact bilaterally, no focal motor deficits, no sensory deficits noted and deep tendon reflexes 2+ bilaterally Psych Mood & Affect: tearful Assessment & Plan Assessment/Plan (1) Atrial fibrillation, new onset: (2) Vertigo: PLAN: 1. New onset A. fib with RVR-converted to sinus rhythm. Continue metoprolol, Eliquis. Echocardiogram demonstrates an EF of 55 to 60%. 2. Hypokalemia-replace per protocol, trend BMP. 3. Vertigo with intractable nausea/vomiting-as needed antiemetics. As needed meclizine, scheduled Valium. PT/OT. MRI of brain with stable white matter lesions, no acute findings. 4. Hypothyroidism-TSH 7.5, free T4 1.2. Continue home Synthroid regimen. Continue outpatient follow-up with endocrinology. 5. Malignant melanoma status post resection/history of prostate cancer-follows trang Souza. On Keytruda through May 2022 for melanoma. 6. Hypertension-transition to metoprolol for A. fib. Continue amlodipine. Stable. 7. Rheumatoid arthritis-not on regimen. As needed Tylenol. On glucosamine. 8. GERD-continue PPI. DVT prophylaxis- Eliquis This patient was seen by SONJA Kwong under the supervision of Dr. Griffith. Time spent examining patient, reviewing data and subsequent management of care: 12 Minutes Documented by User: Dr. Erica Griffith MD 02/22/22 13:23 Objective Data Lab / Micro Data Result Diagrams: 02/20/22 19:40 02/22/22 06:14
[2022-02-22 21:41] LABS: Magnesium 2.2 mg/dL (1.6-2.6); Phosphorus 2.5 mg/dL (2.5-4.9)
[2022-02-23] VITALS (9 sets, daily range): BP systolic 93–143; BP diastolic 58–88; PULSE 63–75; RESP 16–18; TEMP 36.2–37; O2SAT 92–98
[2022-02-23] MEDS: Na Biphos/Potassium Phosphate PACKET 1 PACKET PO ×2 (00:09→05:14)
[2022-02-23] MEDS: diazePAM 2 MG Tablet 4 MG PO (05:14)
[2022-02-23] MEDS: Levothyroxine 112 MCG Tablet PO (05:14)
[2022-02-23 07:52] LABS: Anion Gap 5 (5-15); BUN 16 mg/dL (7-18); BUN/Creat Ratio 12.5 RATIO (10-20); Calcium,Total 8.7 mg/dL (8.5-10.1); Chloride 109 mmol/L (98-107); Creatinine, Serum 1.28 mg/dL (0.70-1.30); EST Glomerular Filtration Rate 57 mL/min (>60); Est Glom Filt Rate - Afr Amer 69 mL/min (>60); Estimated Creatinine Clearance 40.84 ml/min; Glucose 94 mg/dL (74-106); Potassium 3.3 mmol/L (3.5-5.1); Sodium Level 140 mmol/L (136-145)
[2022-02-23] MEDS: amLODIPine 5 MG Tablet PO (08:49)
[2022-02-23] MEDS: APIXABAN 5 MG TABLET PO (08:50)
[2022-02-23] MEDS: Metoprolol Tartrate 25 MG Tablet 12.5 MG PO (08:50)
[2022-02-23] MEDS: Aspirin E.C. 81 MG Tablet PO (08:50)
[2022-02-23] MEDS: Pantoprazole Sodium 40 MG Tablet PO (08:50)
--- NOTE | 2022-02-23 10:32 | CASEMGMT ---
Addendum entered by Lela Villanueva 02/23/22 13:12: Pt also to be sent home home on Eliquis and med e-scribed to [facility]. Call to [facility] and per tech, pt's co-pay is $44. Pt was already provided with Eliquis 30day free trial card. Pt voices no further questions/concerns/needs. Shorty MON CM Original Note: Per therapy, pt would benefit from WW and OP vestibular therapy. Pt is agreeable to [facility](preferred provider for insurance) for WW and states would like [facility] for OP therapy. Orders faxed to [facility] and [facility] at this time. Pt voices no further questions/concerns/needs. Shorty MON CM
--- NOTE | 2022-02-23 10:56 | PCM.DC ---
Discharge Instructions Diet Discharge Diet: No restrictions Activity Discharge Activity: Return to Normal Activity Dressing / Incision Call your doctor if you observe: Shortness of breath, Dizziness and Chest pain Follow Up Care Test Results: Test results from this visit will be discussed in further detail at your follow-up appointment, if applicable. Discharge Plan Admission Admit Date/Time: 02/20/22 20:28 Primary Reason for Your Visit: New onset A. fib, vertigo Attending Provider: Anurag Parekh Primary Care Provider: Anurag Dolan Consulting Providers: Manuel Penny Instructions Additional Instructions / Restrictions: Outpatient vestibular therapy. Discharge Orders/Prescriptions Prescriptions: New Eliquis 5 mg Tablet 5 mg PO BID Qty: 60 RF: 0 meclizine 25 mg Tablet 25 mg PO TID PRN PRN (Reason: vertigo) Qty: 20 RF: 0 metoprolol tartrate 25 mg Tablet 12.5 mg PO BID 30 Days Qty: 30 RF: 0 ondansetron 4 mg tablet,disintegrating 4 mg PO Q8H PRN (Reason: nausea and vomiting) Qty: 10 RF: 0 Continued omeprazole 40 mg capsule,delayed release(DR/EC) 40 mg PO DAILY RF: 0 ipratropium bromide 0.03 % spray,non-aerosol 2 spray INTRANASAL PRN PRN (Reason: Congestion) RF: 0 aspirin [Adult Low Dose Aspirin] 81 mg tablet,delayed release (DR/EC) 81 mg PO DAILY RF: 0 acetaminophen [Tylenol Extra Strength] 500 mg tablet 500 mg PO Q6H PRN (Reason: Pain) RF: 0 triamcinolone acetonide 0.1 % cream 1 applic topical DAILY PRN (Reason: affected area) RF: 0 amlodipine 5 mg tablet 5 mg PO DAILY RF: 0 zinc 50 mg tablet 50 mg PO DAILY RF: 0 calcium carbonate [Calcium 600] 600 mg calcium (1,500 mg) tablet 600 mg PO DAILY RF: 0 lidocaine-prilocaine 2.5-2.5 % cream 1 applic topical ONCE PRN (Reason: Port access ) 30 Days Qty: 30 RF: 2 multivitamin with minerals 1 EACH tablet 1 ea PO DAILY RF: 0 glucosamine sulfate [Glucosamine] 500 mg tablet 500 mg PO DAILY RF: 0 levothyroxine 112 mcg tablet 112 mcg PO DAILY Qty: 30 RF: 6 Discontinued bisoprolol fumarate 5 mg tablet 2.5 mg PO QHS RF: 0 Referrals / Follow Up: Anurag Dolan MD [Primary Care Provider] - In 1 Week Ab Ventura MD [STAFF PHYSICIAN] - See Referral Note (As scheduled 04/07/22) Caterina Bosch PA [PHYSICIAN UROGYNAECOLOGIST] - Within 2 Weeks (Follow up with [facility] in 2 weeks. ) Disposition Disposition (needs filled in before D/C Order can be placed): Home, Self Care
--- NOTE | 2022-02-23 11:34 | DS.PCM_ITS ---
Documented by User: Donna Andrew NP, DEPUTY ADMINISTRATOR-C 02/23/22 11:40 Providers Date of Admission: 02/20/22 Date of Discharge: 02/23/22 Primary Care Physician: Dr. Anurag Dolan MD Consultations 02/20/22 22:18 Consult: Cardiology Routine Consulting Provider: Manuel Penny Reason for Consult: New onset A fib EMERGENT Consult: No MD Notified: Yes Date Notified: 02/20/22 Time Notified: 22:00 Method of Notification: Verbal Reason For Visit: AFIB WITH RVR Diagnosis Discharge Diagnosis (1) Atrial fibrillation, new onset: Status: Acute Code(s): I48.91 - Unspecified atrial fibrillation (2) Vertigo: Status: Acute Code(s): R42 - Dizziness and giddiness Medications at Discharge Home Medications aspirin 81 mg tablet,delayed release 81 mg PO DAILY 10/29/20 ipratropium bromide 21 mcg (0.03 %) nasal spray 2 spray INTRANASAL PRN PRN ml 10/29/20 omeprazole 40 mg capsule,delayed release 40 mg PO DAILY cap 10/29/20 multivitamin with minerals 1 ea PO DAILY 10/31/20 acetaminophen 500 mg tablet 500 mg PO Q6H PRN 06/05/21 triamcinolone acetonide 0.1 % topical cream 1 applic TOPICAL DAILY PRN 09/15/21 amlodipine 5 mg tablet 5 mg PO DAILY 10/06/21 glucosamine sulfate 500 mg tablet 500 mg PO DAILY tab 11/04/21 zinc 50 mg tablet 50 mg PO DAILY 12/29/21 calcium carbonate 600 mg calcium (1,500 mg) tablet 600 mg PO DAILY 01/20/22 lidocaine-prilocaine 2.5 %-2.5 % topical cream 1 applic TOPICAL ONCE PRN 30 Days #30 g 02/09/22 levothyroxine 112 mcg tablet 112 mcg PO DAILY #30 tab 02/10/22 apixaban [Eliquis] 5 mg PO BID #60 tab 02/23/22 meclizine 25 mg PO TID PRN PRN #20 tab 02/23/22 metoprolol tartrate 12.5 mg PO BID 30 Days #30 tab 02/23/22 ondansetron 4 mg PO Q8H PRN #10 tab 02/23/22 Hospital Course Operations None Procedures 2-D Echocardiogram Summary of Care Provided Hospital Course: Patient is an 82-year-old male admitted 02/20/2022 due to nausea and vomiting. 1. New onset A. fib with RVR-converted to sinus rhythm. Continue metoprolol, Eliquis. Echocardiogram demonstrates an EF of 55 to 60%. Follow-up with cardiology in 2 weeks. Cardiology recommends evaluation for event monitor and stress test as outpatient. 2. Hypokalemia-replace per protocol, trend BMP. 3. Vertigo with intractable nausea/vomiting-as needed antiemetics. As needed meclizine. MRI of brain with stable white matter lesions, no acute findings. Symptoms improved. Outpatient vestibular therapy. 4. Hypothyroidism-TSH 7.5, free T4 1.2. Continue home Synthroid regimen. Continue outpatient follow-up with endocrinology. 5. Malignant melanoma status post resection/history of prostate cancer-follows with Dr. Souza. On truda through May 2022 for melanoma. 6. Hypertension-transition to metoprolol for A. fib. Continue amlodipine. Stable. 7. Rheumatoid arthritis-not on regimen. On glucosamine. 8. GERD-continue PPI. Physical Exam Const alert, oriented x3 and no apparent distress Constitutional Narrative: Appears uncomfortable, lying on left side to avoid vertigo symptoms Orientation / Consciousness: awake, oriented to person, oriented to place and oriented to time HEENT normocephalic Mouth: dry mucous membranes Eyes PERRL, EOMs intact bilaterally and conjunctivae normal Neck no lymphadenopathy Resp normal respiratory effort and clear to auscultation bilaterally Cardio regular rate, regular rhythm and no murmurs Peripheral Pulses: pulses 2+ throughout GI normal to inspection, nondistended, normoactive bowel sounds, non-tender and non-distended Extremity normal to inspection Skin no rashes or lesions noted Lesions: no lesions Rashes: no rashes Trauma: no lacerations or abrasions Neuro CN's II-XII intact bilaterally, no focal motor deficits, no sensory deficits noted and deep tendon reflexes 2+ bilaterally Psych Mood & Affect: tearful Patient seen and examined prior to discharge. Physical assessment as noted above. Patient is stable for discharge with follow up recommendations as noted above. This patient was seen by SONJA Kwong under the supervision of Dr. Parekh. Time spent examining patient, reviewing data and subsequent management of care: 16 Minutes Weight / BMI Weight Weight: 197 lb 12.074 oz Body Mass Index (BMI) 32.4 ABG / Lab / Microbiology Data Result Diagrams: 02/20/22 19:40 02/23/22 06:45 Laboratory: Laboratory Results - last 24 hr 02/22/22 06:14: Phosphorus Cancelled, Magnesium Cancelled 02/22/22 21:14: Phosphorus 2.5, Magnesium 2.2 02/23/22 06:45: Sodium 140, Potassium 3.3 L, Chloride 109 H, Carbon Dioxide 26.0, Anion Gap 5, BUN 16, Creatinine 1.28, Estim Creat Clear Calc 40.84, Est GFR (MDRD) Af Amer 69, Est GFR (MDRD) Non-Af 57 L, BUN/Creatinine Ratio 12.5, Glucose 94, Calcium 8.7 D/C Instructions Discharge Diet: No restrictions Call your doctor if you observe: Shortness of breath, Dizziness and Chest pain Meaningful Use Info Meaningful Use Diagnoses (Choose all that apply): None applicable Discharge Plan Admission Admit Date/Time: 02/20/22 20:28 Primary Reason for Your Visit: New onset A. fib, vertigo Attending Provider: Anurag Parekh Primary Care Provider: Anurag Dolan Consulting Providers: Manuel Penny Instructions Patient Instructions: Understanding Atrial Fibrillation Additional Instructions / Restrictions: Outpatient vestibular therapy. Discharge Orders/Prescriptions Prescriptions: New Eliquis 5 mg Tablet 5 mg PO BID Qty: 60 RF: 0 meclizine 25 mg Tablet 25 mg PO TID PRN PRN (Reason: vertigo) Qty: 20 RF: 0 metoprolol tartrate 25 mg Tablet 12.5 mg PO BID 30 Days Qty: 30 RF: 0 ondansetron 4 mg tablet,disintegrating 4 mg PO Q8H PRN (Reason: nausea and vomiting) Qty: 10 RF: 0 Continued omeprazole 40 mg capsule,delayed release(DR/EC) 40 mg PO DAILY RF: 0 ipratropium bromide 0.03 % spray,non-aerosol 2 spray INTRANASAL PRN PRN (Reason: Congestion) RF: 0 aspirin [Adult Low Dose Aspirin] 81 mg tablet,delayed release (DR/EC) 81 mg PO DAILY RF: 0 acetaminophen [Tylenol Extra Strength] 500 mg tablet 500 mg PO Q6H PRN (Reason: Pain) RF: 0 triamcinolone acetonide 0.1 % cream 1 applic topical DAILY PRN (Reason: affected area) RF: 0 amlodipine 5 mg tablet 5 mg PO DAILY RF: 0 zinc 50 mg tablet 50 mg PO DAILY RF: 0 calcium carbonate [Calcium 600] 600 mg calcium (1,500 mg) tablet 600 mg PO DAILY RF: 0 lidocaine-prilocaine 2.5-2.5 % cream 1 applic topical ONCE PRN (Reason: Port access ) 30 Days Qty: 30 RF: 2 multivitamin with minerals 1 EACH tablet 1 ea PO DAILY RF: 0 glucosamine sulfate [Glucosamine] 500 mg tablet 500 mg PO DAILY RF: 0 levothyroxine 112 mcg tablet 112 mcg PO DAILY Qty: 30 RF: 6 Discontinued bisoprolol fumarate 5 mg tablet 2.5 mg PO QHS RF: 0 Referrals / Follow Up: Anurag Dolan MD [Primary Care Provider] - In 1 Week Ab Ventura MD [STAFF PHYSICIAN] - See Referral Note (As scheduled 04/07/22) Caterina Bosch PA [PHYSICIAN WELL SERVICE DERRICK WORKER] - Within 2 Weeks (Follow up with [facility] in 2 weeks. ) Disposition Disposition (needs filled in before D/C Order can be placed): Home, Self Care Documented by User: Dr. Anurag Parekh DO 02/23/22 15:06 Providers Date of Admission: 02/20/22 Reason For Visit: AFIB WITH RVR Medications at Discharge Home Medications aspirin 81 mg tablet,delayed release 81 mg PO DAILY 10/29/20 ipratropium bromide 21 mcg (0.03 %) nasal spray 2 spray INTRANASAL PRN PRN ml 10/29/20 omeprazole 40 mg capsule,delayed release 40 mg PO DAILY cap 10/29/20 multivitamin with minerals 1 ea PO DAILY 10/31/20 acetaminophen 500 mg tablet 500 mg PO Q6H PRN 06/05/21 triamcinolone acetonide 0.1 % topical cream 1 applic TOPICAL DAILY PRN 09/15/21 amlodipine 5 mg tablet 5 mg PO DAILY 10/06/21 glucosamine sulfate 500 mg tablet 500 mg PO DAILY tab 11/04/21 zinc 50 mg tablet 50 mg PO DAILY 12/29/21 calcium carbonate 600 mg calcium (1,500 mg) tablet 600 mg PO DAILY 01/20/22 lidocaine-prilocaine 2.5 %-2.5 % topical cream 1 applic TOPICAL ONCE PRN 30 Days #30 g 02/09/22 levothyroxine 112 mcg tablet 112 mcg PO DAILY #30 tab 02/10/22 apixaban [Eliquis] 5 mg PO BID #60 tab 02/23/22 meclizine 25 mg PO TID PRN PRN #20 tab 02/23/22 metoprolol tartrate 12.5 mg PO BID 30 Days #30 tab 02/23/22 ondansetron 4 mg PO Q8H PRN #10 tab 02/23/22 Hospital Course Operations None Procedures 2-D Echocardiogram Summary of Care Provided Minutes Spent on Discharge: 35 Hospital Course: Patient seen and examined independently. Data and vitals reviewed. I agree with the above note by the nurse practitioner. This is a 82-year-old male presents with dizziness. Symptoms were consistent with benign paroxysmal positional vertigo. MRI of his brain was negative for any stroke. Symptoms were consistent with benign paroxysmal positional vertigo. Patient was seen by therapy and overall his symptoms are better but not completely resolved. Patient still has some issues in regards to looking over his left shoulder. Does have residual left sided nystagmus with lateral gaze. Patient was kept here because he had new diagnosis of atrial fibrillation. Did convert to normal sinus rhythm. EF on echocardiogram was 55 to 60%. Cardiology saw the patient recommended event monitor as outpatient. Patient continue with metoprolol as well as rivaroxaban. Upon further discussion with the patient sounds like he may have had some transient episodes of A. fib with never diagnosed previously. Did discuss in detail with the patient and his brother about how anticoagulation does not literally thin the blood but inhibits parts of the coagulation cascade to make it less likely that he can form clots. Discussed the risks and benefits of anticoagulation with atrial fibrillation. Physical Exam Const alert HEENT normocephalic, head/scalp atraumatic and hearing grossly normal bilaterally HEENT Narrative: Left lateral nystagmus Resp normal respiratory effort, no retractions, no use of accessory muscles and clear to auscultation bilaterally Neuro oriented x3 Sensorium / Orientation: awake, alert and oriented to person ABG / Lab / Microbiology Data Result Diagrams: 02/20/22 19:40 02/23/22 06:45 Discharge Plan Admission Admit Date/Time: 02/20/22 20:28 Primary Reason for Your Visit: New onset A. fib, vertigo Attending Provider: Anruag Parekh Primary Care Provider: Anurag Dolan Consulting Providers: Manuel Penny Instructions Patient Instructions: Understanding Atrial Fibrillation Additional Instructions / Restrictions: Outpatient vestibular therapy. Discharge Orders/Prescriptions Prescriptions: New Eliquis 5 mg Tablet 5 mg PO BID Qty: 60 RF: 0 meclizine 25 mg Tablet 25 mg PO TID PRN PRN (Reason: vertigo) Qty: 20 RF: 0 metoprolol tartrate 25 mg Tablet 12.5 mg PO BID 30 Days Qty: 30 RF: 0 ondansetron 4 mg tablet,disintegrating 4 mg PO Q8H PRN (Reason: nausea and vomiting) Qty: 10 RF: 0 Continued omeprazole 40 mg capsule,delayed release(DR/EC) 40 mg PO DAILY RF: 0 ipratropium bromide 0.03 % spray,non-aerosol 2 spray INTRANASAL PRN PRN (Reason: Congestion) RF: 0 aspirin [Adult Low Dose Aspirin] 81 mg tablet,delayed release (DR/EC) 81 mg PO DAILY RF: 0 acetaminophen [Tylenol Extra Strength] 500 mg tablet 500 mg PO Q6H PRN (Reason: Pain) RF: 0 triamcinolone acetonide 0.1 % cream 1 applic topical DAILY PRN (Reason: affected area) RF: 0 amlodipine 5 mg tablet 5 mg PO DAILY RF: 0 zinc 50 mg tablet 50 mg PO DAILY RF: 0 calcium carbonate [Calcium 600] 600 mg calcium (1,500 mg) tablet 600 mg PO DAILY RF: 0 lidocaine-prilocaine 2.5-2.5 % cream 1 applic topical ONCE PRN (Reason: Port access ) 30 Days Qty: 30 RF: 2 multivitamin with minerals 1 EACH tablet 1 ea PO DAILY RF: 0 glucosamine sulfate [Glucosamine] 500 mg tablet 500 mg PO DAILY RF: 0 levothyroxine 112 mcg tablet 112 mcg PO DAILY Qty: 30 RF: 6 Discontinued bisoprolol fumarate 5 mg tablet 2.5 mg PO QHS RF: 0 Referrals / Follow Up: Anurag Dolan MD [Primary Care Provider] - In 1 Week Ab Ventura MD [STAFF PHYSICIAN] - See Referral Note (As scheduled 04/07/22) Caterina Bosch PA [PHYSICIAN WELL SERVICE DERRICK WORKER] - Within 2 Weeks (Follow up with [facility] in 2 weeks. ) Disposition Disposition (needs filled in before D/C Order can be placed): Home, Self Care Charges/Coding Visit Charges OBSV E&M: 64417 Observation care discharge
[2022-02-23] MEDS: Potassium Chloride Oral Tablet 20 MEQ 40 MEQ PO (12:31)
== END 2022-02-23 11:19 | disposition home or self-care (01) ==
LOC: ED 20:26 → PCU 20:56
PROVIDERS: Family Medicine; Nurse Practitioner Family; Admitting Provider Internal Medicine; Emergency Provider Emergency Medicine; PCP Family Medicine
DX: I48.0 Paroxysmal atrial fibrillation (principal); M06.9 Rheumatoid arthritis, unspecified; C43.71 Malignant melanoma of right lower limb, including hip; N18.30 Chronic kidney disease, stage 3 unspecified; R42 Dizziness and giddiness; E78.5 Hyperlipidemia, unspecified; E03.9 Hypothyroidism, unspecified; K21.9 Gastro-esophageal reflux disease without esophagitis; E87.6 Hypokalemia; I12.9 Hypertensive chronic kidney disease with stage 1 through stage 4 chronic kidney disease, or unspecified chronic kidney disease; R29.810 Facial weakness; M19.90 Unspecified osteoarthritis, unspecified site; N40.0 Benign prostatic hyperplasia without lower urinary tract symptoms; Z79.01 Long term (current) use of anticoagulants; Z79.899 Other long term (current) drug therapy; Z79.82 Long term (current) use of aspirin; Z79.890 Hormone replacement therapy
CPT/HCPCS: 36415; 70551; 71045; 80048; 80061; 80076; 81001; 83036; 83690; 83735; 84100; 84439; 84443; 84484; 85025; 93005; 93306; 96361; 96365; 96366; 96372; 96375; 96376; 97161; 97164; 97166; 99218; 99285; J7030; J7040; J7050; J7120; A4216; G0378; J2405

== ENCOUNTER 2022-03-10 10:30 | Outpatient (RCR) | payer MEDICARE, SELFPAY ==
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
--- NOTE | 2022-03-10 11:02 | HP.PTDCSUM ---
It has been my pleasure to treat EMPERATRIZ EPPS referred by Dr. Anurag Dolan MD, with the diagnosis of BPPV for a total of 2 visit(s). Discharge Date: 03/10/22 Please see the following information for a summary of their discharge status. Subjective: Pt is walking without his walker. He feels that he is back to normal. He feels that his eyesight was seeing double at times before this episode. He has some increase neck pain from moving his neck. As he is talking to me he is moving head horizontal and not getting dizzy. He is back to walking his miles back in. Neck pain Pain Intensity (Out of 10): 1 % Improvement: 99 Objective/Function: VOR X 1 horizontal and vertical X 45 seconds normal and no dizziness. Smooth pursuit vertical and horizontal X 45 seconds each improved and no dizziness. VOR Cx X 45 seconds no dizziness or issue. FGA: Goal 1:: I HEP Goal Progress: Goal Met Goal 2:: Be able to move head and eyes together R and L without feeling like he was going to fall over Goal Progress: Goal Met Goal 3:: Be able to turn 180 degrees to the L without veering and having to catch himself due to LOB Goal Progress: Goal Met Goal 4:: Increase CATSIB score by 20 points to decrease fall risk (at time of the eval CATSIB score was 90) Goal 5:: Improve FGA score by 5 points to decrease fall risk (score was 9 at eval) Goal Progress: Goal Met Goal 6:: Be able to move head and eyes in opposite direction without feeling of unsteadiness Goal Progress: Goal Met Plan: DC PT to HEP. Encourage pt to walk with head turns each day Discharge Comments: DC PT to HEP If there are questions or concerns regarding this patient's physical therapy, please feel free to call me at [phone]. Thank you for the referral of this patient. Sincerely, Sherlyn Parnell, MPT Balance/Gait/Functional tests - Balance/Special Test Scores Functional Gait Assessment Score: 28 % Disability: 6.6700 CATSIB Score (Max score 120 seconds): 90 Dizziness Score: 0
== END 2022-03-10 13:54 | disposition home or self-care (01) ==
LOC: PT 10:30
PROVIDERS: PCP Family Medicine; Referring Provider Nurse Practitioner Family; Visit Provider Family Medicine
DX: H81.10 Benign paroxysmal vertigo, unspecified ear (principal)
CPT/HCPCS: 97162; 97530

== ENCOUNTER → 2022-03-19 | Outpatient (CLI) | payer MEDICARE, SELFPAY | END | disposition home or self-care (01) | LOC: LABSPEC 15:30 | PROVIDERS: PCP Family Medicine; Referring Provider Family Medicine; Visit Provider Family Medicine | DX: Z20.822 Contact with and (suspected) exposure to COVID-19 (principal) | CPT/HCPCS: 87635; U0003; U0005 ==

== ENCOUNTER → 2022-03-27 | Outpatient (CLI) | payer MEDICARE, SELFPAY ==
--- NOTE | 2022-03-27 13:07 | STRESSREP ---
Stress Test Report Date: 03-27-2022 Procedure: Exercise tolerance test/imaging study Indications: Atrial fibrillation Consent: Per the patient Procedure: The patient exercised on a Greg protocol for 6 minutes and 30 seconds completing Stage II and 30 seconds of Stage III achieving a peak heart rate of 129 bpm (92% predicted maximal heart rate) with a peak blood pressure 150/70 mmHg and a peak MET capacity of 8 METs. The baseline ECG demonstrated sinus rhythm. The peak exercise ECG demonstrated somatic/motion artifact with no obvious ECG changes. There were occasional PVCs during exercise and recovery and a isolated multiform ventricular triplet during recovery. The functional capacity was considered good. There was no complaint of chest discomfort during exercise or recovery. The examination was discontinued secondary to dyspnea. Impression: 1. Technically adequate (percent predicted maximal heart rate greater than 85%) exercise tolerance test 2. Peak exercise ECG with somatic/motion artifact with no obvious ECG changes 3. There were occasional PVCs during exercise and recovery and an isolated multiform ventricular triplet during recovery 4. Nuclear images pending Myocardial perfusion imaging study: Technique: The patient was injected with 12.0 mCi of technetium 99m Cardiolite and subsequently rest SPECT Cardiolite nuclear imaging was obtained in the horizontal long, vertical long, and short axis views. The patient exercised on a Greg protocol for 6 minutes and 30 seconds completing Stage II and 30 seconds of Stage III achieving a peak heart rate of 129 bpm (92% predicted maximal heart rate) with a peak blood pressure 150/70 mmHg and a peak MET capacity of 8 METs. The patient was injected with 33.3 mCi of technetium 99m Cardiolite and subsequently stress SPECT Cardiolite nuclear imaging was obtained in the horizontal long, vertical long, and short axis views. A gated Cardiolite study at peak stress was obtained. Interpretation: Rest and stress SPECT Cardiolite nuclear imaging status post realignment, normalization, and attenuation correction, demonstrates the appearance of relative uniform tracer uptake and myocardial perfusion appearing within normal limits. There is end systolic thickening and brightening. The gated Cardiolite study demonstrates myocardial thickening and inward wall motion. The reported LVEF is 70%. Impression: 1. Rest and stress SPECT Cardiolite nuclear imaging demonstrate relative uniform tracer uptake and myocardial perfusion appearing within normal limits. 2. The gated Cardiolite study reports an LVEF of 70%. This note was generated with [employer] software. It may contain incorrect words, spelling, and punctuation that were not noted in checking the note before signing.
== END | disposition home or self-care (01) ==
LOC: CVS 06:52
PROVIDERS: PCP Family Medicine; Referring Provider Physician Assistant Medical; Visit Provider Physician Assistant Medical
DX: R07.9 Chest pain, unspecified (principal); I48.91 Unspecified atrial fibrillation
CPT/HCPCS: 78452; 93017; A9500; A4216

== ENCOUNTER 2022-06-25 11:00 | Outpatient (RCR) | payer MEDICARE, SELFPAY ==
--- NOTE | 2022-05-26 17:01 | HP.OTEVAL ---
Patient's Visit Information EMPERATRIZ EPPS is a 82 year old M, referred to Occupational Therapy by Dr. Charles Bennett MD, with a diagnosis of malignant melanoma of right leg/ lymphedema. Date of Evaluation: 05/26/22 Occupational Therapist: Caterina Pham, USHAR/Eitan, CHT - Subjective This 82 year old male was seen for OT eval with dx of malignant melanoma of right heal- pt states 03/28/21 pt underwent lymph node removal- pt states possible 2 removals from groin and one or two from the knee- pt states he feels swelling initiated about that time- pt is active and typically bikes 5 miles in AM and PM- pt ambulates with antalgic gait pattern states due to knee OA and since sx. pt would like to know what he can do to assist in mtg. the swelling. - Lymphedema (Circumferential Measure) Mid-foot: right 24.5cm left 24.5cm Ankle: right 26cm left 24cm Lower calf: right 25 left 22.5cm Largest calf: right 39cm left 37cm Below knee: right 36cm left 34cm Lower Exremity Comments: stage I - Lower Limb Functional Index Lower Extremity Functional Score: 64 - Goals Demonstrate a 20% reduction in edema by d/c: Yes Demonstrate adequate knowledge of self-massage by 2nd week: Yes Demonstrate adequate knowledge skin care/prec by 2nd week: Yes Demonstrate adequate knowledge therapeutic exercises by d/c: Yes Select approp compression garment w/donning/care/wear by d/c: Yes Voice need to replace compression garment every 4-6mo by dc: Yes - Rehabilitation General Assessment: pt demo with edema in right LE after lymph node removal- pt would benefit from skilled OT services 3-4 visits to ed. pt on lymph mtg and self mt. - pt agrees to POC. Rehabilitation Potential: Good - Anticipated Interventions Education re Diagnosis, Manual Lymph Drainage, Education re Life-long lymphedema Management, Education re Skin Care and Precautions, Education re Self Massage Techniques, Education re Correct Donning Tech,Care&Wearing Sched Comp Garments, Home Program - Visit Plan TEXT: Thank you for the opportunity to evaluate your patient. For Medicare and Medicare HMO plans, please review the plan of care and approve it. It will need to be FAXED BACK to us at [phone] for Medicare purposes. Please let me know if there are questions or concerns regarding this plan of care. Physician Signature: Date:
--- NOTE | 2022-05-27 09:13 | HP.PTEVAL_ITS ---
Patient's Visit Information EMPERATRIZ EPPS is a 82 year old M referred to Physical Therapy by Dr. Charles Bennett MD with a diagnosis of MALIGNANT MELANOMA OF RIGHT HEEL. Date of Evaluation: 05/26/22 Physical Therapist: Kodak Haines PT, Cert MDT, OCS - Visit Plan Frequency: 2x /Week Duration: 4 Weeks Plan: PT INTERVETIONS ROM/FLEXABILITY KNEE, STRENGTHNEING RLE ESPECIALLY HIP ,AND FUNCTIONAL STRENGTHNEING - Subjective This 82 y/o male presents to physical therapy right lower leg pain and weakness. Patient developed malignant melanoma bottom of heel calcaneus. Patient was seen by condenser winder, did a biopsy came back + with melanoma. Patient was to DR Bennett oncologist who on May 072020 removed malignant melonoma with excision moderate along with removal of lymph nodes behind knee and groin which showed trace. Developed infection 2 weeks after surgery developed in the groin . Patient was hospitalized for 4 days [facility] . Patient was in a boot for ~ ~ ~ 2 weeks and a wound vac on heel for 2 months. Seen doing good. Recently developed A-Fib ~ January 2022 was hospitalized 3 days. Patient has difficulty with walking , ,stairs one step at a time ,unable to squat and kneeling . Patient seen OT due to swelling in lower leg. Patient has difficulty sleeping. Patient enjoys biking. 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 SOCIAL: . C/O paresthesia/tingling h/o lumbar discectomy. Patient has DJD knee is contributing factor. - Pain Right Knee Pain Intensity (Out of 10): 4 Pain Intensity Range: 10 Comment: walking - Objective POSTURE: WFL. GAIT: antalgic gait right leg with decrease stance time. STAIRS: one step time with rails. NUERO: c/o paresthesia/tingling. PALPATION: tender knee medial lateral. EDEMA: mild effusion knee. AROM: supine knee flexion 0- 125 degrees ,0 -135 degrees. MMT: quads/hams 4/5 ,hip flexion 4/5,hip abduction 12.8 right ,ankle 4/5 - Balance/Special Test Scores CATSIB Score (Max score 120 seconds): 115 Lower Extremity Functional Score: 29 - Goals Goal 1:: This patient to be I with HEP Goal Time Frame: 4-6 Weeks Goal 2:: Patient to demonstrate 60 % improvement with improved function Goal Time Frame: 4-6 Weeks Goal 3:: This patient to increase strength of hip abductors by 5-10 peak force to improve gait Goal Time Frame: 4-6 Weeks Goal 4:: Patient to improve knee ROM by 5 decrease to ease with transfers sit- stand and stairs Goal Time Frame: 4-6 Weeks Goal 5:: Patient to improve LFES score by 5 points to improve QOL Goal Time Frame: 4-6 Weeks - Rehabilitation Potential Physical Therapy Diagnosis: This patient developed malignant melanoma thus had to get it excision large and removed 2 lymph nodes with current impairments with increase pain knee ,weakness right hip glut Medius impairs gait stairs and function thus benefit from skilled PT Rehabilitation Potential: Good - Anticipated Interventions Patient/Client Instruction: Educate patient on: Condition, Plan of Care For the Purpose of:: To decrease pain, To increase ROM, To improve muscle performance and motor function, To improve ability to perform ADL's, To increase tolerance to activity/condition/position, To improve ability of physical actions for home/community/work/leisure, To improve health of tissue, To decrease soft tissue restriction, To increase flexibility/ROM, To improve balance, To prevent re-injury Therapeutic Exercise to Include: Strength training, Balance training, Postural training, Flexibilty training, Passive ROM, Active ROM Comment: BLE For the Purpose of:: To decrease pain, To increase ROM, To improve muscle perfo rmance and motor function, To increase tolerance to activity/condition/position, To improve ability of physical actions for home/community/work/leisure, To improve health of tissue, To decrease soft tissue restriction, To increase flexibility/ROM Thank you for the opportunity to evaluate your patient. For Medicare and Medicare HMO plans, please review the plan of care and approve it. It will need to be FAXED BACK to us at [phone] for Medicare purposes. For Medicare only, by signing this I certify the plan of care. Please let me know if there are questions or concerns regarding this plan of care. Physician Signature: Date:
--- NOTE | 2022-06-25 10:59 | HP.PTDCSUM_ITS ---
It has been my pleasure to treat EMPERATRIZ EPPS referred by Dr. Charles Bennett MD, with the diagnosis of MALIGNANT MELANOMA OF RIGHT HEEL for a total of 5 visit(s). Discharge Date: 06/25/22 Please see the following information for a summary of their discharge status. Subjective: Doing good no pain Right Knee Pain Intensity (Out of 10): 1 % Improvement: 75 Objective/Function: EDEMA: mild effusion. AROM: 0-130 DEGREES. MMT: PEAK FORSEC BY 10 WITH HAMS/HIP. GAIT: RECIPROPCAL PATTERN Goal 1:: This patient to be I with HEP Goal 2:: Patient to demonstrate 60 % improvement with improved function Goal Progress: Goal Met Goal 3:: This patient to increase strength of hip abductors by 5-10 peak force to improve gait Goal Progress: Goal Met Goal 4:: Patient to improve knee ROM by 5 decrease to ease with transfers sit- stand and stairs Goal Progress: Goal Met Goal 5:: Patient to improve LFES score by 5 points to improve QOL Goal Progress: Goal Met Plan: D/C Discharge Comments: HEP If there are questions or concerns regarding this patient's physical therapy, please feel free to call me at [phone]. Thank you for the referral of this patient. Sincerely, Kodak Haines, PT, Cert MDT, OCS Balance/Gait/Functional tests - Balance/Special Test Scores CATSIB Score (Max score 120 seconds): 115 Lower Extremity Functional Score: 53
--- NOTE | 2022-06-25 11:26 | HP.OTDCSUM ---
It has been my pleasure to treat EMPERATRIZ EPPS under orders from Dr. Charles Bennett MD, for the diagnosis of malignant melanoma of right leg/ lymphedema for a total of 2 visit(s). Please see the following information for a summary of their discharge status. % Improvement: 80 Objective/Function: Pt has met OT goals and is d.c at this time Patient Goals: Learn how to Manage Lymphedema, Learn how to Apply Compression Stockings Demonstrate a 20% reduction in edema by d/c: Yes Demonstrate adequate knowledge of self-massage by 2nd week: Yes Demonstrate adequate knowledge skin care/prec by 2nd week: Yes Demonstrate adequate knowledge therapeutic exercises by d/c: Yes Select approp compression garment w/donning/care/wear by d/c: Yes Voice need to replace compression garment every 4-6mo by dc: Yes Plan: D/C Discharge Comments: Pt was seen for 2 visits for lymphedema- pt has met goals and is d.c at this time. pt states he is comfortable in his compression socks as well as demo understanding of his lymph stim ex and self manual lymph massage. pt agrees with d.c. If there are questions or concerns regarding this patient's occupational therapy, please fell free to call me at [phone]. Thank you for the referral of this patient. Sincerely, Caterina Pham, OTR/L, CHT
== END 2022-06-25 19:00 | disposition home or self-care (01) ==
LOC: OT 11:00
PROVIDERS: PCP Family Medicine
DX: C43.71 Malignant melanoma of right lower limb, including hip (principal)
CPT/HCPCS: 97110; 97162; 97166; 97530

== ENCOUNTER → 2022-07-07 | Outpatient (CLI) | payer MEDICARE, SELFPAY | END | disposition home or self-care (01) | LOC: PSN 10:55 | PROVIDERS: PCP Family Medicine; Referring Provider Physician Assistant Medical; Visit Provider Physician Assistant Medical | DX: I48.0 Paroxysmal atrial fibrillation (principal); I49.3 Ventricular premature depolarization | CPT/HCPCS: 93225; 93226 ==

== ENCOUNTER → 2022-07-08 | Outpatient (CLI) | payer MEDICARE, SELFPAY ==
--- NOTE | 2022-07-08 12:41 | CT_ITS ---
STUDY: CT CHEST, ABDOMEN T PELVIS WITH CONTRAST REASON FOR EXAM: Male, 82 years old. MELANOMA AND PROSTATE CANCER RESTAGING, END OF RX RADIATION DOSAGE (If Supplied By Facility): CTDIvol = ( 20.45 ) mGy, DLP = ( 2006.22 ) mGycm TECHNIQUE: Transaxial imaging was performed following intravenous administration of IV 100mL Isovue-370. Multiplanar coronal and sagittal images were reformatted. Individualized dose optimization techniques were used for this CT. COMPARISON: Comparison is made with prior examination dated 12/30/2021. FINDINGS: CHEST A right-sided portacatheter is seen with the tip in the superior vena cava. The lungs are normal. There is no demonstrated pleural abnormality. There are calcifications of the coronary arteries. There are multiple small lymph nodes within the mediastinum, which are normal in size and morphology most compatible with reactive lymph hyperplasia. Normal hilar regions. Normal unenhanced pulmonary arteries. Normal aorta arch and descending thoracic aorta. There are multi-level degenerative changes of the thoracic spine. There is no demonstrated abnormality of the visualized upper abdomen. ABDOMEN The visualized lung bases are unremarkable. Coronary artery calcification. Tiny cyst in the posterior aspect of the right lobe of the liver in the region of the dome. Normal gallbladder and extrahepatic biliary system. Normal spleen. Normal pancreas. Normal bilateral adrenal glands. There is a 1.9 cm cyst in the medial inferior pole of the right kidney. Normal left kidney. Normal visualized stomach. Normal small intestine. There are multiple colonic diverticula consistent with diverticulosis. The appendix is visualized and appears normal. There is diffuse atherosclerotic calcification of the abdominal aorta and its major visceral branches, without a demonstrated aneurysm. Normal inferior vena cava. Normal retroperitoneum. PELVIS Normal urinary bladder. 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 There is no pelvic fluid. There is no pelvic lymphadenopathy or mass lesion. Normal visualized pelvic arteries. Surgical clips are seen in the right inguinal region. Postoperative scarring is seen at that site. There are diffuse degenerative changes of the visualized lumbar spine. CT/CT Chest, Abd, Pel w/Contrast IMPRESSION: Stable examination. No acute abnormality is seen. Electronically Signed: Riky Knapp MD at 14:20 EDT ,
[2022-07-08] MEDS: 0.9% Saline Lock 10 ML Syringe IV (13:30)
== END | disposition home or self-care (01) ==
LOC: CT 12:41
PROVIDERS: PCP Family Medicine; Referring Provider Internal Medicine Hematology & Oncology; Visit Provider Internal Medicine Hematology & Oncology
DX: C43.71 Malignant melanoma of right lower limb, including hip (principal)
CPT/HCPCS: 71260; 74177; Q9967; A4216

== ENCOUNTER → 2022-07-23 | Outpatient (CLI) | payer MEDICARE, SELFPAY ==
--- NOTE | 2022-07-23 09:08 | NM_ITS ---
CLINICAL: Male, 82 years old. MELANOMA AND PROSTATE CANCER RESTAGING -- MELANOMA SPREAD TO RT CALCANEOUS AND LYMPH NODES IN RT GROIN -- RT KNEE PAIN WHOLE BODY NUCLEAR BONE SCAN TECHNIQUE: Following the IV administration of 26.8 mCi of Tc MDP, whole body bone imaging was performed with a gamma camera following a three hour delay. COMPARISON STUDIES : Comparison is made with prior examination of 04/08/2020. FINDINGS: Increased uptake seen in the 3 compartments of both knee joints suggestive of osteoarthritis. Mild degree of radiopharmaceutical uptake in the sternoclavicular joints more prominent on the right side as well as the cervical spine although there has been improvement as compared to prior study. This is suggestive of a osteoarthritis. Mild uptake is also seen in the mid and lower dorsal vertebrae suggestive of degenerative change. NM/Bone Scan Whole Body IMPRESSION: Findings suggestive of degenerative changes as described. No evidence of bony metastasis. Electronically Signed: Riky Knapp MD at 14:29 EDT ,
[2022-07-23] MEDS: 0.9% Saline Lock 10 ML Syringe IV (09:25)
== END | disposition home or self-care (01) ==
LOC: NM 09:07
PROVIDERS: PCP Family Medicine; Referring Provider Internal Medicine Hematology & Oncology; Visit Provider Internal Medicine Hematology & Oncology
DX: C43.71 Malignant melanoma of right lower limb, including hip (principal)
CPT/HCPCS: 78306; A9503; A4216

== ENCOUNTER → 2022-10-07 | Outpatient (CLI) | payer MEDICARE, SELFPAY | END | disposition home or self-care (01) | LOC: PSN 09:32 | PROVIDERS: PCP Family Medicine; Referring Provider Physician Assistant Medical; Visit Provider Physician Assistant Medical | DX: I48.0 Paroxysmal atrial fibrillation (principal); I49.3 Ventricular premature depolarization | CPT/HCPCS: 93225; 93226 ==

== ENCOUNTER → 2022-11-16 | Outpatient (CLI) | payer MEDICARE, SELFPAY ==
--- NOTE | 2022-11-16 | IMM_PTH ---
PATIENT: EMPERATRIZ EPPS LOC: [facility] U#:[id number] AGE/SX: 82/M ROOM: RE11/16/[address]: Dr. Molly Nance MD : 1940 BED: DIS: 11/16/2022 SPEC #: [id number] RECD: 11/17/22 12:34 STATUS: SHERON REQ #: [id number] ILYA: 11/16/22 00:[address]: Molly Nance DEPT: IMMUNOHISTOCHEMISTRY RECD BY: Ibeth Smith ENTERED: 11/17/22 12:35 SP TYPE: IMMUNO OTHR DR: Dr. Anurag Dolan MD Tissues: Inguinal lymph node, NOS Procedures: CD45 (add) KI-67 (add) MACRO (add) P53 (add) Vimentin (add) Pankeratin (initial) MELAN-A (add) S-100 (add) PHYSICIAN & INSTITUTION [address] [address] SPECIMEN INFORMATION: Tissue Source: Right groin lymph node tissue Clinical Info: History of right heel melanoma Specimen Number: [id number] CPT code: 13403, 02952 x7 METHODOLOGY: Deparaffinized sections of prefer/formalin-fixed tissue or PAP/DQ stained slides are incubated with monoclonal/polyclonal antibodies/oligonucleotide probes. Localization is made via biotin free immunoperoxidase method. Appropriate controls are performed and reacted as expected. Results on target cell population are indicated in the following table: RESULTS: ANTIBODY / CLONE RESULT AE1-3 (AE1/AE3/PCK26) negative CD45 (RP2/18) negative Vimentin (V9) positive Macro (HAM-56) negative Melan A (A103) positive S-100 (4C4.9) positive, dim P53 (DO-7) negative Ki-67 (30-9) positive, 40% These tests were developed and their performance characteristics determined by [facility]. They may not have been cleared or approved by the U.S. Food and Drug Administration. The FDA has determined that such clearance or approval is not necessary. The above immunohistochemical/dualISH markers are ordered and reviewed by the Pathologist. INTERPRETATION: Right groin lymph node tissue, biopsy: Consistent with metastatic malignant melanoma. AM:scott 11/18/2022
--- NOTE | 2022-11-16 12:35 | LYMN_PTH ---
PATIENT: EMPERATRIZ EPPS LOC: [facility] U#:[id number] AGE/SX: 82/M ROOM: RE11/16/[address]: Dr. Molly Nance MD : 1940 BED: DIS: 11/16/2022 SPEC #: [id number] RECD: 11/16/22 14:26 STATUS: SHERON REJanice #: [id number] ILYA: 11/16/22 12:[address]: Molly Nance DEPT: SURGICAL PATHOLOGY RECD BY: Ibeth Smith ENTERED: 11/17/22 08:56 SP TYPE: LYMPH NODE OTHR DR: Dr. Anurag Dolan MD Tissues: Inguinal lymph node, NOS Procedures: Surgery Specimen Level IV HEADER OPERATION: Biopsy right groin lymph node PRE-OP DIAGNOSIS: History right heel melanoma TISSUE SUBMITTED: Right groin lymph node tissue MICROSCOPIC DIAGNOSIS Right groin lymph node, needle core biopsy: Metastatic malignant melanoma. See comment. AM:scott 11/17/2022 COMMENT Immunohistochemistry ([id number]) supports the above diagnosis. This case was discussed with Dr. Nance by Dr. Bassett 11/17/22. Case has been reviewed in consultation with Dr. Bassett who concurs with the above diagnosis. ALEJANDRO:NAYLA MICROSCOPIC DESCRIPTION Slides are reviewed. GROSS DESCRIPTION Received in fixative is one container labeled with the patient's name and designated right groin lymph node tissue. The specimen consists of multiple irregular fragments of kjg-bdxswmml-otnhh soft tissue that in aggregate measure 2 x 0.2 x 0.1 cm. The specimen is totally submitted in one cassette. / NAYLA:scott 11/16/2022 TC:0 CPT: 76541 ADDENDUM ADDENDUM ADDENDUM ADDENDUM ADDENDUM ADDENDUM ADDENDUM ADDENDUM ADDENDUM ADDENDUM ADDENDUM ADDENDUM ADDENDUM ADDENDUM ADDENDUM ADDENDUM 12/14/2022 10:09 ADDENDUM 04/27/2025 08:31 ADDENDUM 12/14/2022 10:09 ADDENDUM 12/14/2022 10:09 ADDENDUM 12/14/2022 10:09 ADDENDUM 12/14/2022 10:09 [facility] FROM [employer] RESULT SUMMARY: Abnormal Immunotherapy Biomarkers: Tumor Mutation [place]: Low (1.6 Mutations / Mb) Microsatellite Instability: MSI Negative (3.2 % PERTINENT NEGATIVE RESULTS: The following genes are NEGATIVE for clinically relevant mutations. Mutational hotspots and surrounding exonic regions were interrogated for DNA level point mutations and indels (fusions not assayed). BAP1, BRAF, BRCA2, CDK4, CDKN2A, CTNNB1, EIF1AX, GNA11, GNAQ, GNAS, KIT, MAP2K1, MITF, NBN, NF1, NTRK1, PALB2, PDGFRA, PIK3CA, PTEN, RB1, SF3B1, SMO, SRC, TERT, TP53 Please see complete report in e-chart or EMR This addendum is added to incorporate an outside pathology consultation report. The case was examined at [facility] by Dr. Martinez (#[id number]) and the following diagnosis was rendered. A. Lymph node, right groin, needle core biopsy: Metastatic melanoma. See comment. COMMENT: Histologic sections show a proliferation of atypical epitheloid cells associated with lymphoid and fibroadipose tissue. The lesional cells are arranged in large nodules and sheets with a haphazard growth pattern. The cells display moderately enlarged ovoid nuclei, frequent prominent nucleoi, and a small amount of pale eosinophilic cytoplasm. There is scattered intracytoplasmic pigment as well as numerous associated pigmented macrophages. Please see complete above mentioned consultation report in EMR
== END | disposition home or self-care (01) ==
LOC: LABSPEC 14:40
PROVIDERS: PCP Family Medicine; Referring Provider Surgery; Visit Provider Surgery
DX: C43.71 Malignant melanoma of right lower limb, including hip (principal)
CPT/HCPCS: 88305; 88341; 88342

== ENCOUNTER → 2022-11-26 | Outpatient (CLI) | payer MEDICARE, SELFPAY ==
--- NOTE | 2022-11-26 13:28 | MRI_ITS ---
INDICATION: MELANOMA EXAMINATION: MRI - MR Brain WO/W Contrast TECHNIQUE: Multiplanar and multisequence MR images of the brain were obtained without and with gadolinium. IV Contrast Dosage and Agent: 18 cc Clariscan COMPARISON: 10/22/2021, 02/21/2022 FINDINGS: BRAIN PARENCHYMA: No MRI evidence of hemorrhage. No evidence of acute infarct. No intracranial mass or mass effect. Similar left more than right centrum semiovale FLAIR hyperintensities. There is preservation of the chappell/white matter interface. Normal sella turcica, pituitary gland, infundibular stalk, optic chiasm and hypothalamus. Posterior fossa structures are unremarkable. INTERNAL AUDITORY CANALS: The internal auditory canals are well visualized and patent. No mass identified. CSF SPACES: Appropriate for degree of cerebral volume loss. No hydrocephalus. Basal cisterns are patent. VASCULAR SYSTEM: Normal flow voids in the major intracranial circulation. CALVARIUM, SKULL BASE, PARANASAL SINUSES AND MASTOID AIR CELLS: Left mastoid effusion. ORBITS: Both globes, extraocular muscles, optic nerves and retrobulbar fat appear unremarkable. MRI/Brain W/WO Contrast IMPRESSION: No finding of intracranial metastasis. No acute abnormal finding in the brain. Electronically Signed: Aaron Ritchie MD at 18:44 EST ,
[2022-11-26] MEDS: 0.9% Saline Lock 10 ML Syringe IV (14:05)
== END | disposition home or self-care (01) ==
LOC: MRI 13:04
PROVIDERS: PCP Family Medicine; Referring Provider Internal Medicine Hematology & Oncology; Visit Provider Internal Medicine Hematology & Oncology
DX: C43.71 Malignant melanoma of right lower limb, including hip (principal)
CPT/HCPCS: 70553; A9575; A4216

== ENCOUNTER 2022-12-14 10:17 | Outpatient (CLI) | payer MEDICARE, SELFPAY ==
[2022-12-14 11:15] LABS: Hematocrit 39.9 % (40-54); Hemoglobin 13.4 g/dL (13.0-16.5); Mean Corp Hgb Conc 33.6 g/dL (32-36); Mean Corpuscular Hgb 31.5 pg (27.0-32.0); Mean Corpuscular Volume 93.9 fL (80-94); Mean Platelet Vol. 9.5 fl (6.2-12.0); Platelet Count 250 K/mm3 (150-450); RBC Distribution Width CV 12.4 % (11.6-14.6); RBC Distribution Width SD 42.8 fl (35.1-43.9); Red Blood Count 4.25 M/mm3 (4.6-6.2)
[2022-12-14 11:29] LABS: Anion Gap 7 (5-15); BUN 27 mg/dL (7-18); BUN/Creat Ratio 21.8 RATIO (10-20); Chloride 106 mmol/L (98-107); Creatinine, Serum 1.24 mg/dL (0.70-1.30); EST Glomerular Filtration Rate 59 mL/min (>60); Est Glom Filt Rate - Afr Amer 72 mL/min (>60); Glucose 94 mg/dL (74-106); Potassium 4.2 mmol/L (3.5-5.1); Sodium Level 139 mmol/L (136-145)
== END 2022-12-14 23:59 | disposition home or self-care (01) ==
LOC: MEDOUTP 10:18
PROVIDERS: PCP Family Medicine
DX: C43.71 Malignant melanoma of right lower limb, including hip (principal)
CPT/HCPCS: 36592; 80048; 85027; A4216

== ENCOUNTER 2022-12-21 09:57 | Outpatient (CLI) | payer MEDICARE, SELFPAY | END 2022-12-21 23:59 | disposition home or self-care (01) | LOC: LAB 09:59 | PROVIDERS: PCP Family Medicine; Visit Provider Family Medicine | DX: Z20.822 Contact with and (suspected) exposure to COVID-19 (principal) | CPT/HCPCS: 87635; U0003; U0005 ==

== ENCOUNTER 2023-01-18 10:25 | Emergency (ER) | payer MEDICARE, SELFPAY ==
[2023-01-18 10:26] VITALS: PULSE 72; RESP 14; TEMP 36.9; O2SAT 98; BMI 31.1
[2023-01-18 11:06] VITALS: BP 131/94; PULSE 69; RESP 18; O2SAT 98
[2023-01-18 11:11] LABS: Absolute Lymphocyte Count 0.65 X10^3/uL (0.83-4.51); Absolute Neutrophil Count 14.4 X10^3/uL (2.0-7.7); Basophil# 0.03 X10^3/uL; Basophil% 0.2 % (0-1); Eosinophil# 0.01 X10^3/uL; Eosinophils% 0.1 % (0-5); Hemoglobin 13.6 g/dL (13.0-16.5); Lymphocyte # 0.65 X10^3/ul (0.83-4.51); Mean Corpuscular Hgb 32.2 pg (27.0-32.0); Mean Corpuscular Volume 94.6 fL (80-94); Mean Platelet Vol. 9.3 fl (6.2-12.0); Monocyte# 1.07 X10^3/uL; Monocyte% 6.5 % (0-10); NRBC Flagged by Analyzer 0 % (0-5); Neutrophil # 14.42 X10^3/uL (2.7-7.7); Neutrophil % 87.9 % (47-70); Platelet Count 378 K/mm3 (150-450); RBC Distribution Width CV 12.1 % (11.6-14.6); RBC Distribution Width SD 42.3 fl (35.1-43.9); Red Blood Count 4.23 M/mm3 (4.6-6.2); White Blood Count 16.4 K/mm3 (4.4-11.0)
--- NOTE | 2023-01-18 11:20 | RAD_ITS ---
STUDY: X-RAY CHEST REASON FOR EXAM: Male, 83 years old. Pleuritic anterior left upper chest pain TECHNIQUE: PA and lateral views of the chest. COMPARISON: Comparison is made with prior study dated 02/20/2022. FINDINGS: A right-sided portacatheter is seen with the tip at the junction of the superior vena cava and right atrium. EKG electrodes are seen. Increased markings at the lung bases suggestive of a poor inspiratory effort. There is no demonstrated pleural abnormality. Normal size heart. Normal mediastinum and jonah. Normal visualized pulmonary arteries. There is atherosclerotic tortuosity of the aortic arch and descending thoracic aorta. There are diffuse degenerative changes of the visualized thoracic spine. Normal visualized ribs, clavicles, and shoulders. There is no demonstrated abnormality of the visualized soft tissue structures of the upper abdomen. RAD/Chest PA and Lateral IMPRESSION: Mild degree of increased markings at the lung bases suggestive of limited inspiratory effort. Electronically Signed: Riky Knapp MD at 12:33 EST ,
[2023-01-18 11:21] LABS: D-Dimer Quantitative (DVT/PE) 0.44 FEU/ug/m (0.27-0.49)
[2023-01-18 11:25] LABS: Anion Gap 7 (5-15); BUN 32 mg/dL (7-18); BUN/Creat Ratio 31.1 RATIO (10-20); Calcium,Total 9.2 mg/dL (8.5-10.1); Chloride 105 mmol/L (98-107); Creatinine, Serum 1.03 mg/dL (0.70-1.30); EST Glomerular Filtration Rate 74 mL/min (>60); Est Glom Filt Rate - Afr Amer 89 mL/min (>60); Glucose 123 mg/dL (74-106); Potassium 3.9 mmol/L (3.5-5.1); Sodium Level 137 mmol/L (136-145)
--- NOTE | 2023-01-18 12:19 | EDS_ITS ---
HPI History of Present Illness Chief Complaint: Upper Extremity Injury Detail of Chief Complaint: Anterior left upper chest pain and shoulder pain Informant: patient Occured/Mechanism Comment: Patient presents with atraumatic anterior upper left chest pain and shoulder pain that started yesterday. Onset/Context/Timing Context: Sudden Onset Timing: Intermittent Quality of Pain: Aching Location: Anterior left chest and shoulder Current Severity: Gone Maximum Severity: Moderate Worsened by: Movement of left upper extremity and breathing Relieved by: Remaining ill Associated Symptoms Associated Symptoms: Negative for Parasthesia, Weakness or Loss of Funtion Narrative Narrative: Patient is an 83-year-old male with history of melanoma left heel diagnosed several years ago. He had follow-up with his oncologist at [facility]. He felt a left inguinal node. The node was biopsied. He has recurrence of his melanoma. He had surgery within the past month. He presently is on no chemo or radiation. He does have a port right subclavian noted. He denies fever, chills night sweats. He denies weight loss or weight gain. He denies headache, visual, ocular auditory symptoms. He denies rhinorrhea, congestion, postnasal drainage sore throat. He denies cough. He denies [place] exertion, orthopnea or PND. He denies abdominal pain, nausea, vomit diarrhea. He denies dysuria, frequency, urgency or hematuria. Patient states there is no change in the color of the fluid noted in his [place]avan-Dawkins drains. He has 2. Tetanus Immunization: 5-10 years Prior similar symptoms: Yes Recent Illness/Hospitalization: Yes [facility] Medical History Alcohol use Arthritis Melendrez's palsy Benign prostate hyperplasia Cancer Cough Creatinine elevation CRF (chronic renal failure) Drug rash Encounter for immunotherapy Essential hypertension Gastric reflux GERD (gastroesophageal reflux disease) Hemorrhoids History of brachytherapy Hx of malignant neoplasm of prostate Hypercholesterolemia Hypertension Hypokalemia Hypothyroidism (acquired) Hypothyroidism (acquired) Injury of back Malignant melanoma of right heel Mitral valve insufficiency Non-smoker Open wound of right heel Osteoarthritis of left knee PAF (paroxysmal atrial fibrillation) Personal history of colonic polyps PVC (premature ventricular contraction) Regional lymph node metastasis present Rheumatoid arthritis Sleep disorder Squamous cell carcinoma of skin Wears glasses Home Medications ipratropium bromide 21 mcg (0.03 %) nasal spray 2 spray intranasal PRN PRN Congestion 10/29/20 [History Last Taken Unknown] omeprazole 40 mg capsule,delayed release 40 mg PO DAILY 10/29/20 [History Last Taken 06/19/21 08:00 40 MG] multivitamin with minerals 1 ea PO DAILY 10/31/20 [History Last Taken Unknown] acetaminophen 500 mg tablet (Tylenol Extra Strength) 500 mg PO Q6H PRN Pain 06/05/21 [History Last Taken Unknown] triamcinolone acetonide 0.1 % topical cream 1 applic topical DAILY PRN affected area 09/15/21 [History Last Taken Unknown] amlodipine 5 mg tablet 5 mg PO DAILY 10/06/21 [History Last Taken Unknown] zinc 50 mg tablet 50 mg PO DAILY 12/29/21 [History Last Taken Unknown] calcium carbonate 600 mg calcium (1,500 mg) tablet (Calcium) 600 mg PO DAILY 01/20/22 [History Last Taken Unknown] apixaban 5 mg tablet (Eliquis) 5 mg PO BID #60 tabs 03/13/22 [Rx Last Taken Unknown] glucosamine sulfate 500 mg tablet (Glucosamine) 1,000 mg PO DAILY 03/13/22 [History Last Taken Unknown] betamethasone dipropionate 0.05 % topical cream 1 applic topical DAILY 05/05/22 [History Last Taken Unknown] diphenhydramine HCl 25 mg capsule (Benadryl) 25 mg PO QHS PRN 07/15/22 [History Last Taken Unknown] fexofenadine 60 mg tablet (Amina Allergy) 60 mg PO DAILY PRN 07/15/22 [History Last Taken Unknown] metoprolol tartrate 25 mg tablet 25 mg PO BID this is a dose increase. [place]! #180 tabs 07/16/22 [Rx Last Taken Unknown] alfuzosin 10 mg tablet,extended release 24 hr 10 mg PO DAILY 09/28/22 [History Last Taken Unknown] acetylcysteine 600 mg capsule ea PO 10/13/22 [History Last Taken Unknown] aflibercept 2 mg/0.05 mL intravitreal solution for injection (Eylea) 2 mg intravitreal ONCE 10/14/22 [History Last Taken Unknown] levothyroxine 112 mcg tablet 112 mcg PO DAILY #30 tabs 11/06/22 [Rx Last Taken Unknown] camphor-menthol 0.5 %-0.5 % lotion (Sarna Original) 1 applic topical BID-TID PRN 11/12/22 [History Last Taken Unknown] cholecalciferol (vitamin D3) 25 mcg (1,000 unit) capsule 25 mcg PO DAILY 11/12/22 [History Last Taken Unknown] lidocaine-prilocaine 2.5 %-2.5 % topical cream 1 applic topical ONCE PRN Port access 30 days #30 grams 11/12/22 [Rx Last Taken Unknown] prednisone 20 mg tablet 60 mg PO DAILY #15 TABLETS 01/18/23 [Rx Last Taken Unknown] Allergy/AdvReac Type Severity Reaction Status Date / Time No Known Allergies Allergy Verified 01/18/23 10:30 Family History Brother Prostate cancer CVA (cerebral vascular accident) Brother Leukemia Father Hypertension Myocardial infarction Mother CHF (congestive heart failure) Surgical History History of root canal procedure Hx of colonoscopy Hx of discectomy Hx of foot operation Hx of hemorrhoidectomy Hx of rotator cuff surgery Social History Smoking Status: Never smoker second hand exposure: No alcohol intake: current alcohol intake frequency: a few times a month details: OCCASIONALLY substance use type: does not use well-balanced diet: about half the time caffeine: Yes Type: coffee Number of servings: 1 eating out: 1-3 times/week what type of physical activity do you participate in: bicycling frequency: 3-4 times per week duration: 15-30 minutes/day melany/lutheran: Adventist seatbelt use: always do you feel safe at home: Yes ROS ROS ED Constitutional Constitutional ED: Denies chills, fever(s), subjective, sweats or weight loss Eyes Eyes: Denies blurry vision, change in vision or diplopia ENT ENT ED: Denies ear pain, rhinorrhea or sore throat Cardiovascular Cardiovascular: Reports chest pain; Denies orthopnea, palpitations, paroxysmal nocturnal dyspnea or racing heartbeat Respiratory/Chest Respiratory/Chest: Denies cough, dyspnea, dyspnea on exertion, orthopnea or paroxysmal nocturnal dyspnea Gastrointestinal Gastrointestinal: Denies abdominal pain, diarrhea, nausea or vomiting Genitourinary Genitourinary ED: Denies dysuria, hematuria or urinary frequency Musculoskeletal Musculoskeletal: Reports other Details: Left shoulder pain with movement. ; Denies back pain, myalgias or neck pain Integumentary Denies Abrasions or rash Neurologic Neurologic: Denies headache(s), paresthesias or weakness Endocrine Endocrinology: Denies cold intolerance or heat intolerance Hematologic/Lymphatic Hematologic/Lymphatic: Denies easy bleeding, easy bruising or lymphadenopathy Allergic/Immunologic Allergic/Immunologic ED: Denies mouth swelling, tongue swelling or urticaria EXAM Physical Exam Const Vital Signs: 01/18/23 10:26 01/18/23 10:31 01/18/23 11:06 Temperature 98.5 F Temperature Source Oral Pulse Rate 72 69 Respiratory Rate 14 18 Respiratory Effort Normal Blood Pressure 131/94 H Blood Pressure Mean 106 Pulse Ox 98 98 Oxygen Delivery Method Room Air Room Air Positive well nourished, well developed and obese General Appearance ED: well developed and NAD; Negative for cyanotic or diaphoretic Nutritional Appearance: obese HEENT Reports moist mucous membranes HEENT Narrative: Ears normal. Nares patent. There is no drainage. Posterior pharynx is normal. normocephalic and atraumatic Eyes PERRL and EOMs intact bilaterally Neck full ROM and supple Neck Narrative: Trachea is midline. There is no cervical lymphadenopathy. Chest Wall inspection of chest normal and palpation of chest normal Chest Narrative: Patient reports reproducible chest pain anterior left upper chest and left shoulder. Resp normal respiratory effort and clear to auscultation bilaterally Effort and Inspection: pain with movement LUE Cardio regular rate, regular rhythm, S1 normal heart sound, S2 normal heart sound and no murmurs GI non-tender, non-distended and no masses Palpation: soft Back/Spine no CVA tenderness Cervical Spine: Negative for cervical spine tenderness Thoracic Spine / Upper Back: Negative for thoracic spinal tenderness Extremity normal to inspection and full ROM Extremity Narrative: Axillary, median, radial and ulnar function intact. Radial pulses palpable. Neuro oriented x3, CN's II-XII intact bilaterally and moves all extremities Sensorium / Orientation: alert Psych mental status grossly normal Skin General Skin Exam: Negative for petechiae Lesions: no lesions Rashes: no rashes Trauma: no lacerations or abrasions MDM MDM MDM Narrative Medical decision making narrative: With pleuritic chest pain recent surgery history of melanoma need to consider pulmonary embolus. Pretest probability low to moderate. For this reason D- dimer was ordered. CBC was obtained to assess for white count and differential as well as H&H. Basic metabolic panel was ordered. This was obtained to assess glucose, CO2 anion gap. This was obtained to determine if CTA is contraindicated if needed. Prior records were obtained to confirm patient's recent surgery and diagnosis of melanoma. Also to evaluate his lab results compared to most recent obtained at outside facility. EKG was not obtained since symptoms are not consistent with cardiac. Because patient is on long-term anticoagulant he was treated with prednisone for his pleurisy versus NSAIDs. Also, patient has prerenal azotemia. Lab Data Attestation: I reviewed the patient's lab results. Lab results narrative: White count is elevated which is nonspecific. D-dimer is normal at 0.44. Basic metabolic panel is remarked for glucose of 123 and a BUN/creatinine ratio of 31:1. Patient has evidence of prerenal azotemia. Labs: Laboratory Results - last 24 hr 01/18/23 01/18/23 01/18/23 11:05 11:05 11:05 WBC 16.4 H RBC 4.23 L Hgb 13.6 Hct 40.0 MCV 94.6 H MCH 32.2 H MCHC 34.0 RDW Std Deviation 42.3 RDW Coeff of Halley 12.1 Plt Count 378 MPV 9.3 Immature Gran % (Auto) 1.300 H Neut % (Auto) 87.9 H Lymph % (Auto) 4.0 L [place] % (Auto) 6.5 Eos % (Auto) 0.1 Baso % (Auto) 0.2 Absolute Neuts (auto) 14.4 H Absolute Lymphs (auto) 0.65 L Nucleated RBC % 0 D-Dimer Quant (PE/DVT) 0.44 Sodium 137 Potassium 3.9 Chloride 105 Carbon Dioxide 25.0 Anion Gap 7 BUN 32 H Creatinine 1.03 Estim Creat Clear Calc 49.90 Est GFR (MDRD) Af Amer 89 Est GFR (MDRD) Non-Af 74 BUN/Creatinine Ratio 31.1 H Glucose 123 H Calcium 9.2 Radiography Diagnostic Testin view chest x-ray reveals port right subclavian. There is no effusion, infiltrate or cephalization. Inspiration is limited. Cardiac silhouette and size unremarkable. There is no evidence of pneumothorax. Rhythm Strip Rhythm Strip: Sinus Rhythm Rate: 66 Ectopy: None Discharge Plan Triage Chief Complaint: Upper Extremity Injury Other Complaint: Chest Pain General Illness ED Provider: Samson Ngo Dx/Rx/DC Orders Clinical Impression: Pleuritic chest pain, Rheumatoid arthritis, Hypercholesterolemia, Hypertension, Acute pain of left shoulder, History of melanoma, Acute prerenal azotemia, Anticoagulant long-term use Instructions: ED Pleurisy Prescriptions: New prednisone 20 mg tablet 60 mg PO DAILY Qty: 15 0RF No Action omeprazole 40 mg capsule,delayed release(DR/EC) 40 mg PO DAILY ipratropium bromide 0.03 % spray,non-aerosol 2 spray INTRANASAL PRN PRN (Reason: Congestion) acetaminophen [Tylenol Extra Strength] 500 mg tablet 500 mg PO Q6H PRN (Reason: Pain) triamcinolone acetonide 0.1 % cream 1 applic topical DAILY PRN (Reason: affected area) amlodipine 5 mg tablet 5 mg PO DAILY zinc 50 mg tablet 50 mg PO DAILY calcium carbonate [Calcium 600] 600 mg calcium (1,500 mg) tablet 600 mg PO DAILY Eliquis 5 mg tablet 5 mg PO BID Qty: 60 11RF acetylcysteine 600 mg capsule PO Label Comments: TAKE 1 CAPSULE BY MOUTH TWICE DAILY fexofenadine [Amina Allergy] 60 mg tablet 60 mg PO DAILY PRN diphenhydramine HCl [Benadryl] 25 mg capsule 25 mg PO QHS PRN alfuzosin 10 mg tablet extended release 24 hr 10 mg PO DAILY Rx Instructions: administer after the same meal each day Eylea 2 mg/0.05 mL solution 2 mg intravitreal ONCE Sarna Original 0.5-0.5 % lotion 1 applic topical BID-TID PRN cholecalciferol (vitamin D3) 25 mcg (1,000 unit) capsule 25 mcg PO DAILY multivitamin with minerals 1 EACH tablet 1 ea PO DAILY betamethasone dipropionate 0.05 % Cream 1 applic TOPICAL DAILY glucosamine sulfate [Glucosamine] 500 mg tablet 1,000 mg PO DAILY metoprolol tartrate 25 mg tablet 25 mg PO BID Qty: 180 3RF levothyroxine 112 mcg tablet 112 mcg PO DAILY Qty: 30 11RF lidocaine-prilocaine 2.5-2.5 % cream 1 applic topical ONCE PRN (Reason: Port access ) 30 Days Qty: 30 2RF Primary Care Provider: Anurag Dolan Referrals: Anurag Dolan MD [Primary Care Provider] - 1 Week if not improving Disposition Disposition: Home, Self Care
== END 2023-01-18 13:01 | disposition home or self-care (01) ==
PROVIDERS: Emergency Provider Emergency Medicine; PCP Family Medicine; Visit Provider Emergency Medicine
DX: R07.81 Pleurodynia (principal); M06.012 Rheumatoid arthritis without rheumatoid factor, left shoulder; N18.9 Chronic kidney disease, unspecified; I12.9 Hypertensive chronic kidney disease with stage 1 through stage 4 chronic kidney disease, or unspecified chronic kidney disease; R79.89 Other specified abnormal findings of blood chemistry; E66.9 Obesity, unspecified; Z79.01 Long term (current) use of anticoagulants
CPT/HCPCS: 71046; 80048; 85025; 85379; 99285; A4216

== ENCOUNTER 2023-01-26 13:43 | Emergency (ER) | payer MEDICARE, SELFPAY ==
[2023-01-26] VITALS (8 sets, daily range): BP systolic 113–141; BP diastolic 79–84; PULSE 86–102; RESP 14–22; TEMP 36.1–36.8; O2SAT 91–98; BMI 30.9
--- NOTE | 2023-01-26 15:16 | EKG12_ITS ---
Test Reason : L SHOULDER PAIN Blood Pressure : / mmHG Vent. Rate : 086 BPM Atrial Rate : 086 BPM P-R Int : 156 ms QRS Dur : 084 ms QT Int : 344 ms P-R-T Axes : 040 -02 029 degrees QTc Int : 411 ms Sinus rhythm with occasional Premature ventricular complexes Low voltage QRS Borderline ECG Confirmed by NESTOR ANDREW, BEE ([id number]), editor sound KORTNEY YMERS ([id number]) on 01/28/2023 9:37:27 AM Referred By: Confirmed By:BEE BAEZ MD
--- NOTE | 2023-01-26 15:16 | CT_ITS ---
STUDY: CTA CHEST REASON FOR EXAM: Male, 83 years old. LEFT SIDED NECK AND CHEST PAIN RADIATION DOSAGE (If Supplied By Facility): CTDIvol = ( 14.23 ) mGy, DLP = ( 1050.27 ) mGycm TECHNIQUE: The examination was performed with the intravenous administration of IV 75mL Isovue-370. Post-processing of the angiographic images was performed, with multiplanar reformation and 3D reconstruction. Individualized dose optimization techniques were used for this CT. COMPARISON: 07/08/2022 FINDINGS: Right chest port. Normal enhancement of the main pulmonary artery and right and left pulmonary arteries. Normal enhancement of the bilateral peripheral pulmonary arteries. There is no demonstrated pulmonary embolism. Evaluation of the lower lobe pulmonary arteries is complicated by respiratory motion artifact. Normal thoracic aorta and visualized great vessels. There is no demonstrated aortic dissection. Normal heart and pericardium. Normal mediastinum. Normal hilar regions. Normal visualized trachea and bronchi. The lungs are well expanded. Normal pulmonary parenchyma. 9.2 x 5.6 x 7.7 cm left apical pleural fluid and gas collection, with associated left upper lobe compressive atelectasis, appears to communicate with a fluid distended left sternoclavicular joint. There is also a 4.7 cm left infraclavicular rim-enhancing fluid collection. Small left pleural effusion with overlying left lower lobe atelectasis. Normal thoracic vertebral alignment. Normal visualized upper abdomen. CT/CTA Chest W/WO Contrast IMPRESSION: 9.2 cm of apical pleural abscess may originate from a septic left sternoclavicular joint. Associated left empyema. 4.7 cm supraclavicular abscess. Normal CTA chest examination, without a demonstrated pulmonary embolism or arterial dissection. Electronically Signed: Aaron Ritchie MD at 18:23 EST ,
--- NOTE | 2023-01-26 15:19 | CT_ITS ---
INDICATION: LEFT SIDED NECK AND CHEST PAIN EXAMINATION: CT NECK WITH CONTRAST - CT Soft Tissue Neck W/ Contrast Injection TECHNIQUE: Helically acquired images were obtained of the neck following IV contrast. A radiation dose optimization technique was used for this scan. IV Contrast dosage and agent: 75 mL Isovue-370 COMPARISON: 07/08/2022; 01/18/2023 chest x-ray FINDINGS: NASOPHARYNX: Unremarkable. SUPRAHYOID NECK: Unremarkable oropharynx, oral cavity, parapharyngeal space, and retropharyngeal space. INFRAHYOID NECK: Unremarkable larynx, hypopharynx, and supraglottis. THYROID: No focal lesions. SALIVARY GLANDS: Unremarkable. LYMPH NODES: No cervical or supraclavicular lymphadenopathy. VASCULAR STRUCTURES: Unremarkable. VISUALIZED PORTIONS OF THE ORBITS, PARANASAL SINUSES, MASTOID AIR CELLS AND SKULL BASE: Unremarkable. BONES: Cervical spine degenerative change. THORACIC INLET: Partial visualization of anterior left pleural encapsulated fluid and gas collection. This appears to communicate with a rim-enhancing fluid collection in the left sternoclavicular joint. There is also a 4.7 x 1.7 x 2.3 cm left infraclavicular rim-enhancing fluid collection. CT/Soft Tissue Neck WITH Contrast IMPRESSION: Abscesses involving the left sternoclavicular joint, left infraclavicular soft tissues, and left pleural detailed above. Electronically Signed: Aaron Ritchie MD at 17:55 EST ,
--- NOTE | 2023-01-26 15:22 | EX.ED.GENINJ ---
HPI History of Present Illness Chief Complaint: Chest Other Narrative Narrative: Patient presents with left-sided chest pain shoulder and arm pain as well as left-sided neck pain. He was seen last week and had work-up for his chest pain however his pain is no better. He tells me he has no weakness in his arm or leg but just pain in his left arm along with the neck pain. The pain also extends into the left chest region. Patient also tells me that there is increased prominence in the proximal clavicle region. He has no difficulty breathing but he does have pain when he takes a deep breath. He has a history of malignant melanoma. [facility] Medical History Alcohol use Arthritis Melendrez's palsy Benign prostate hyperplasia Cancer Cough Creatinine elevation CRF (chronic renal failure) Drug rash Encounter for immunotherapy Essential hypertension Gastric reflux GERD (gastroesophageal reflux disease) Hemorrhoids History of brachytherapy Hx of malignant neoplasm of prostate Hypercholesterolemia Hypertension Hypokalemia Hypothyroidism (acquired) Hypothyroidism (acquired) Injury of back Malignant melanoma of right heel Mitral valve insufficiency Non-smoker Open wound of right heel Osteoarthritis of left knee PAF (paroxysmal atrial fibrillation) Personal history of colonic polyps PVC (premature ventricular contraction) Regional lymph node metastasis present Rheumatoid arthritis Sleep disorder Squamous cell carcinoma of skin Wears glasses Home Medications ipratropium bromide 21 mcg (0.03 %) nasal spray 2 spray intranasal PRN PRN Congestion 10/29/20 [History Last Taken Unknown] omeprazole 40 mg capsule,delayed release 40 mg PO DAILY 10/29/20 [History Last Taken 06/19/21 08:00 40 MG] multivitamin with minerals 1 ea PO DAILY 10/31/20 [History Last Taken Unknown] acetaminophen 500 mg tablet (Tylenol Extra Strength) 500 mg PO Q6H PRN Pain 06/05/21 [History Last Taken Unknown] triamcinolone acetonide 0.1 % topical cream 1 applic topical DAILY PRN affected area 09/15/21 [History Last Taken Unknown] amlodipine 5 mg tablet 5 mg PO DAILY 10/06/21 [History Last Taken Unknown] zinc 50 mg tablet 50 mg PO DAILY 12/29/21 [History Last Taken Unknown] calcium carbonate 600 mg calcium (1,500 mg) tablet (Calcium) 600 mg PO DAILY 01/20/22 [History Last Taken Unknown] apixaban 5 mg tablet (Eliquis) 5 mg PO BID #60 tabs 03/13/22 [Rx Last Taken Unknown] glucosamine sulfate 500 mg tablet (Glucosamine) 1,000 mg PO DAILY 03/13/22 [History Last Taken Unknown] betamethasone dipropionate 0.05 % topical cream 1 applic topical DAILY 05/05/22 [History Last Taken Unknown] diphenhydramine HCl 25 mg capsule (Benadryl) 25 mg PO QHS PRN 07/15/22 [History Last Taken Unknown] fexofenadine 60 mg tablet (Amina Allergy) 60 mg PO DAILY PRN 07/15/22 [History Last Taken Unknown] metoprolol tartrate 25 mg tablet 25 mg PO BID this is a dose increase. [place] #180 tabs 07/16/22 [Rx Last Taken Unknown] alfuzosin 10 mg tablet,extended release 24 hr 10 mg PO DAILY 09/28/22 [History Last Taken Unknown] acetylcysteine 600 mg capsule ea PO 10/13/22 [History Last Taken Unknown] aflibercept 2 mg/0.05 mL intravitreal solution for injection (Eylea) 2 mg intravitreal ONCE 10/14/22 [History Last Taken Unknown] levothyroxine 112 mcg tablet 112 mcg PO DAILY #30 tabs 11/06/22 [Rx Last Taken Unknown] camphor-menthol 0.5 %-0.5 % lotion (Sarna Original) 1 applic topical BID-TID PRN 11/12/22 [History Last Taken Unknown] cholecalciferol (vitamin D3) 25 mcg (1,000 unit) capsule 25 mcg PO DAILY 11/12/22 [History Last Taken Unknown] lidocaine-prilocaine 2.5 %-2.5 % topical cream 1 applic topical ONCE PRN Port access 30 days #30 grams 11/12/22 [Rx Last Taken Unknown] prednisone 20 mg tablet 60 mg PO DAILY #15 TABLETS 01/18/23 [Rx Last Taken Unknown] Allergy/AdvReac Type Severity Reaction Status Date / Time No Known Allergies Allergy Verified 01/26/23 13:48 Family History Brother Prostate cancer CVA (cerebral vascular accident) Brother Leukemia Father Hypertension Myocardial infarction Mother CHF (congestive heart failure) Surgical History History of root canal procedure Hx of colonoscopy Hx of discectomy Hx of foot operation Hx of hemorrhoidectomy Hx of rotator cuff surgery Social History Smoking Status: Never smoker second hand exposure: No alcohol intake: current alcohol intake frequency: a few times a month details: OCCASIONALLY substance use type: does not use well-balanced diet: about half the time caffeine: Yes Type: coffee Number of servings: 1 eating out: 1-3 times/week what type of physical activity do you participate in: bicycling frequency: 3-4 times per week duration: 15-30 minutes/day melany/mormon: Protestant seatbelt use: always do you feel safe at home: Yes ROS ROS ED ROS Narrative Past medical history: Reviewed Medications: Reviewed Social history: Noncontributory Review of systems: All systems negative except as indicated General: No fever Eyes: No visual changes ENT: No upper airway congestion, normal voice Neck: Neck pain as in HPI Cardiovascular: Chest pain as in HPI Respiratory: No shortness of breath or cough Gastrointestinal: No abdominal pain, nausea vomiting or diarrhea Genitourinary: No dysuria Musculoskeletal: Left arm pain Skin: No rash Neurological negative he tells me there is no weakness of his left arm and left leg, just left arm pain, no sensory deficits EXAM Physical Exam Narrative Exam Narrative: Physical exam General: Patient appears uncomfortable Head: Normocephalic, Atraumatic Eyes: Conjunctiva not pale ENT: Moist mucous membranes Neck: No C-spine tenderness, he is quite bit of pain over the left paraspinal muscles, left side and anterior part of his neck I do not see any deformities. He has a normal voice. Cardiovascular: Regular rate, Regular rhythm Chest wall: Exquisitely tender over the upper part of the left chest wall region there is a prominence over the proximal clavicle, that is somewhat different than the right. Respiratory: No distress, CTA bilaterally Abdomen: Soft, Nontender, Nondistended Back: Nontender, Normal Inspection. Negative for: CVA tenderness Extremities: Nontender, No edema Skin: Normal color, No rash Neurological: Alert, patient does have strength in his left upper extremity that is about the same as the right, however as I palpate the wrist to the extremity or move it it is quite tender throughout. Const Vital Signs: 01/26/23 13:44 01/26/23 14:55 01/26/23 14:58 Temperature 97.8 F 98.2 F Temperature Source Temporal Oral Pulse Rate 97 87 87 Respiratory Rate 18 16 18 Blood Pressure 113/83 H 118/82 H Blood Pressure Mean 93 94 Pulse Ox 98 96 96 Oxygen Delivery Method Room Air Room Air Room Air 01/26/23 18:03 01/26/23 18:38 Temperature 97 F L Temperature Source Temporal Pulse Rate 88 86 Respiratory Rate 18 14 Blood Pressure 124/81 H 122/84 H Blood Pressure Mean 95 96 Pulse Ox 96 91 Oxygen Delivery Method Room Air Room Air MDM MDM MDM Narrative Medical decision making narrative: A. Problems addressed Patient is found to have leukocytosis however it somewhat decreased from last week. Because of the amount of pain he had a CT of the chest and neck, this shows a significant intrathoracic abscess, see radiology report. Antibiotics were given. This hospital does not have a CT surgery therefore we will transfer. I talked to Dr. Oliver at [facility] who accepted the patient on the thoracic service. B. Amount and/or complexity of the data 1. CBC CMP ordered interpreted by me I discussed the patient with both daughters who were in the room 2. Independent interpretation of test Telemetry: Sinus rhythm with a rate in the 80s without ectopy 3. Discussion of management with thoracic surgeon see above C. 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 All these were ruled out. Lab Data Labs: Laboratory Results - last 24 hr 01/26/23 01/26/23 14:55 14:55 WBC 14.9 H RBC 3.62 L Hgb 11.4 L Hct 34.3 L MCV 94.8 H MCH 31.5 MCHC 33.2 RDW Std Deviation 47.4 H RDW Coeff of Halley 13.7 Plt Count 418 MPV 8.9 Sodium 138 Potassium 4.0 Chloride 107 Carbon Dioxide 24.0 Anion Gap 7 BUN 32 H Creatinine 0.95 Estim Creat Clear Calc 54.10 Est GFR (MDRD) Af Amer 98 Est GFR (MDRD) Non-Af 81 BUN/Creatinine Ratio 33.8 H Glucose 120 H Calcium 9.2 Total Bilirubin 0.50 AST 21 ALT 66 H Alkaline Phosphatase 219 H Troponin I High Sens 9 Total Protein 6.2 L Albumin 1.6 L Globulin 4.6 H Albumin/Globulin Ratio 0.3 L Radiography Diagnostic Testing: Clinical Impression(s) from Imaging Studies Chest CTA 01/26/23 15:16 IMPRESSION: 9.2 cm of apical pleural abscess may originate from a septic left sternoclavicular joint. Associated left empyema. 4.7 cm supraclavicular abscess. Normal CTA chest examination, without a demonstrated pulmonary embolism or arterial dissection. Electronically Signed: Aaron Ritchie MD at 18:23 EST , Soft Tissue Neck CT 01/26/23 15:19 IMPRESSION: Abscesses involving the left sternoclavicular joint, left infraclavicular soft tissues, and left pleural detailed above. Electronically Signed: Aaron Ritchie MD at 17:55 EST , EKG Initial EKG: Comments: Sinus rhythm with a rate of 86. Normal MN and QTc intervals. No ischemic changes. Interpreted by emergency doctor Discharge Plan Triage Chief Complaint: Chest Other ED Provider: Aaron Rivas Dx/Rx/DC Orders Clinical Impression: Abscess of thorax, Hx of melanoma of skin, Atrial fibrillation Prescriptions: No Action omeprazole 40 mg capsule,delayed release(DR/EC) 40 mg PO DAILY ipratropium bromide 0.03 % spray,non-aerosol 2 spray INTRANASAL PRN PRN (Reason: Congestion) acetaminophen [Tylenol Extra Strength] 500 mg tablet 500 mg PO Q6H PRN (Reason: Pain) triamcinolone acetonide 0.1 % cream 1 applic topical DAILY PRN (Reason: affected area) amlodipine 5 mg tablet 5 mg PO DAILY zinc 50 mg tablet 50 mg PO DAILY calcium carbonate [Calcium 600] 600 mg calcium (1,500 mg) tablet 600 mg PO DAILY Eliquis 5 mg tablet 5 mg PO BID Qty: 60 11RF acetylcysteine 600 mg capsule PO Label Comments: TAKE 1 CAPSULE BY MOUTH TWICE DAILY fexofenadine [Amina Allergy] 60 mg tablet 60 mg PO DAILY PRN diphenhydramine HCl [Benadryl] 25 mg capsule 25 mg PO QHS PRN alfuzosin 10 mg tablet extended release 24 hr 10 mg PO DAILY Rx Instructions: administer after the same meal each day Eylea 2 mg/0.05 mL solution 2 mg intravitreal ONCE Sarna Original 0.5-0.5 % lotion 1 applic topical BID-TID PRN cholecalciferol (vitamin D3) 25 mcg (1,000 unit) capsule 25 mcg PO DAILY multivitamin with minerals 1 EACH tablet 1 ea PO DAILY betamethasone dipropionate 0.05 % Cream 1 applic TOPICAL DAILY glucosamine sulfate [Glucosamine] 500 mg tablet 1,000 mg PO DAILY prednisone 20 mg tablet 60 mg PO DAILY Qty: 15 0RF metoprolol tartrate 25 mg tablet 25 mg PO BID Qty: 180 3RF levothyroxine 112 mcg tablet 112 mcg PO DAILY Qty: 30 11RF lidocaine-prilocaine 2.5-2.5 % cream 1 applic topical ONCE PRN (Reason: Port access ) 30 Days Qty: 30 2RF Primary Care Provider: Anurag Dolan Referrals: Anurag Dolan MD [Primary Care Provider] - Disposition Disposition: DC/Tx to Another Type of HCF
[2023-01-26] MEDS: Morphine 4 MG/ML Syringe IV (15:58)
[2023-01-26] MEDS: Ondansetron 4 MG/2 ML Vial IV (15:58)
[2023-01-26 16:11] LABS: Hematocrit 34.3 % (40-54); Hemoglobin 11.4 g/dL (13.0-16.5); Mean Corp Hgb Conc 33.2 g/dL (32-36); Mean Corpuscular Hgb 31.5 pg (27.0-32.0); Mean Corpuscular Volume 94.8 fL (80-94); Mean Platelet Vol. 8.9 fl (6.2-12.0); Platelet Count 418 K/mm3 (150-450); RBC Distribution Width CV 13.7 % (11.6-14.6); RBC Distribution Width SD 47.4 fl (35.1-43.9); Red Blood Count 3.62 M/mm3 (4.6-6.2); White Blood Count 14.9 K/mm3 (4.4-11.0)
[2023-01-26 16:36] LABS: ALB/GLOB Ratio 0.3 RATIO (0.9-2.4); AST(SGOT) 21 U/L (15-37); Alanine Aminotransfer ALT/SGPT 66 U/L (16-61); Albumin, Serum 1.6 g/dL (3.2-5.0); Alkaline Phosphatase 219 U/L (45-117); Anion Gap 7 (5-15); BUN 32 mg/dL (7-18); BUN/Creat Ratio 33.8 RATIO (10-20); Calcium,Total 9.2 mg/dL (8.5-10.1); Chloride 107 mmol/L (98-107); Creatinine, Serum 0.95 mg/dL (0.70-1.30); EST Glomerular Filtration Rate 81 mL/min (>60); Est Glom Filt Rate - Afr Amer 98 mL/min (>60); Globulin 4.6 g/dL (2.2-4.2); Glucose 120 mg/dL (74-106); Protein, Total 6.2 g/dL (6.4-8.2); Sodium Level 138 mmol/L (136-145); Troponin-I HS 9 pg/mL (3.0-78.0)
[2023-01-26] MEDS: HYDROmorphone 1 MG/ML Syringe IV (18:31)
[2023-01-26] MEDS: Benzonatate 100 MG Capsule PO (22:05)
[2023-01-27] VITALS: BP 102/63; PULSE 99; RESP 20; TEMP 37.3; O2SAT 96
== END 2023-01-27 00:18 | disposition other institution (70) ==
PROVIDERS: Emergency Provider Emergency Medicine; PCP Family Medicine; Visit Provider Emergency Medicine
DX: J86.9 Pyothorax without fistula (principal); I48.0 Paroxysmal atrial fibrillation; N18.9 Chronic kidney disease, unspecified
CPT/HCPCS: 36591; 70491; 71275; 80053; 84484; 85027; 87811; 93005; 96365; 96367; 96375; 99285; J7050; Q9967; A4216; J2405

== ENCOUNTER 2023-02-03 21:10 | Inpatient (IN) | payer MEDICARE, SELFPAY ==
[2023-02-03 21:41] VITALS: BP 137/94; PULSE 83; RESP 18; TEMP 36.9; O2SAT 96; BMI 29.9
--- NOTE | 2023-02-03 22:17 | PCM.HP.STD ---
HPI - General General Date of Admission: 02/03/23 Date of Service: 02/04/23 Chief Complaint: Here for rehabilitation, intravenous antibiotics. HPI Narrative 01/26/2023 EMPERATRIZ EPPS, is a 83 Male who presents to [facility] Emergency Department with left chest pain, left shoulder pain, left arm pain, left neck pain. WBC 14.9. CT chest showed large left intrathoracic abscess. Transfer to [facility]. 01/26/2023 Admit to [facility]. Large extra pleural apical abscess in communication with left sternoclavicular joint. Cellulitis overlying abscess. 01/27/2023 IR drainage of abscess, drain in place with purulent output, culture growing group B strep. 01/28/2023 1. Incision and drainage of left sternoclavicular abscess. 2. Debridement of left clavicle, left sternum. 3. Wound VAC placed. 01/30/2023 Wound debridement, closure anterior chest. FARNAZ in place draining cloudy serosanguinous fluid. 02/01/2023 PICC line placed left upper extremity. Plan 6 weeks of IV antibiotics. With FARNAZ drain in place. 02/03/2023 Admit to TCU with debility, here for rehabilitation, strengthening, intravenous antibiotics, prior to discharge home alone. [facility] Medical History (Updated 02/04/23 @ 00:01 by Sara Mcgraw) Alcohol use Arthritis Melendrez's palsy Benign prostate hyperplasia Cancer Cough Creatinine elevation CRF (chronic renal failure) Drug rash Encounter for immunotherapy Essential hypertension Gastric reflux GERD (gastroesophageal reflux disease) Hemorrhoids History of brachytherapy Hx of malignant neoplasm of prostate Hypercholesterolemia Hypertension Hypokalemia Hypothyroidism (acquired) Hypothyroidism (acquired) Injury of back Malignant melanoma of right heel Mitral valve insufficiency Non-smoker Open wound of right heel Osteoarthritis of left knee PAF (paroxysmal atrial fibrillation) Personal history of colonic polyps PVC (premature ventricular contraction) Regional lymph node metastasis present Rheumatoid arthritis Sleep disorder Squamous cell carcinoma of skin Wears glasses Home Medications omeprazole 40 mg capsule,delayed release 40 mg PO DAILY acid reflux 10/29/20 [History Last Taken 06/19/21 08:00 40 MG] multivitamin with minerals 1 ea PO BREAKFAST supplement 10/31/20 [History Last Taken Unknown] acetaminophen 500 mg tablet (Tylenol Extra Strength) 1,000 mg PO Q6H pain 06/05/21 [History Last Taken Unknown] amlodipine 5 mg tablet 5 mg PO DAILY blood pressure 10/06/21 [History Last Taken Unknown] calcium carbonate 600 mg calcium (1,500 mg) tablet (Calcium) 600 mg PO DAILY supplement 01/20/22 [History Last Taken Unknown] glucosamine sulfate 500 mg tablet (Glucosamine) 1,000 mg PO DAILY joint supplement 03/13/22 [History Last Taken Unknown] alfuzosin 10 mg tablet,extended release 24 hr 10 mg PO DAILY@1000 urinary retention 09/28/22 [History Last Taken Unknown] acetylcysteine 600 mg capsule 600 mg PO BID mucus 10/13/22 [History Last Taken Unknown] cholecalciferol (vitamin D3) 25 mcg (1,000 unit) capsule 25 mcg PO DAILY vitamin 11/12/22 [History Last Taken Unknown] apixaban 5 mg tablet (Eliquis) 5 mg PO BIDCM blood thinner 02/03/23 [History Last Taken Unknown] ceftriaxone 2 gram intravenous piggyback 2 g IV Q24H antibiotic 02/03/23 [History Last Taken 02/03/23 14:00] levothyroxine 112 mcg tablet 112 mcg PO DAILY thyroid 02/03/23 [History Last Taken Unknown] metoprolol tartrate 25 mg tablet 25 mg PO BID blood pressure/heart 02/03/23 [History Last Taken Unknown] oxycodone 5 mg tablet 5 mg PO Q4H PRN Pain 02/03/23 [History Last Taken Unknown] polyethylene glycol 3350 17 gram oral powder packet 17 g PO DAILY constipation 02/03/23 [History Last Taken Unknown] zinc 50 mg tablet 50 mg PO DAILY suppplement 02/03/23 [History Last Taken Unknown] Allergy/AdvReac Type Severity Reaction Status Date / Time No Known Allergies Allergy Verified 01/26/23 13:48 Family History Brother Prostate cancer CVA (cerebral vascular accident) Brother Leukemia Father Hypertension Myocardial infarction Mother CHF (congestive heart failure) Surgical History (Updated 02/03/23 @ 22:[address] Kevin Candelaria MD) History of incision and drainage History of root canal procedure Hx of colonoscopy Hx of discectomy Hx of foot operation Hx of hemorrhoidectomy Hx of rotator cuff surgery Social History (Updated 02/03/23 @ 22:[address] Kevin Candelaria MD) household members: none Smoking Status: Former smoker second hand exposure: No alcohol intake: current alcohol intake frequency: a few times a month details: OCCASIONALLY substance use type: does not use well-balanced diet: about half the time caffeine: Yes Type: coffee Number of servings: 1 eating out: 1-3 times/week what type of physical activity do you participate in: bicycling frequency: 3-4 times per week duration: 15-30 minutes/day melany/sikh: Rastafari seatbelt use: always do you feel safe at home: Yes ROS Constitutional Constitutional: Denies chills, fever(s) or weight gain ENT HEENT: Denies headache(s), nasal congestion or nasal discharge Cardiovascular Cardiovascular: Denies chest pain or palpitations Respiratory/Chest Respiratory/Chest: Denies cough, excessive phlegm production or shortness of breath with exertion Gastrointestinal Gastrointestinal: Denies abdominal pain, nausea or vomiting Genitourinary Genitourinary: Denies dysuria Musculoskeletal Musculoskeletal: Denies joint pain or joint swelling Integumentary Integumentary: Denies rash or wounds Neurologic Neurologic: Denies focal weakness, numbness or tingling Psychiatric Psychiatric: Denies anxiety, auditory hallucinations, depression, homicidal ideation or suicidal ideation Vital Signs Vital Signs Vital Signs: Weight Weight: 85.7 kg Body Mass Index (BMI) 29.9 Physical Exam Const alert General Appearance: cooperative HEENT normocephalic Eyes PERRL and EOMs intact bilaterally Neck supple, no JVD and no carotid bruits Chest Chest Narrative: Left upper chest clean, dry, sutures intact. FARNAZ drain with serosanguinous fluid. Resp normal respiratory effort, normal air movement and clear to auscultation bilaterally Cardio regular rate and regular rhythm GI normal to inspection, nondistended, normoactive bowel sounds, non-tender and non-distended Extremity normal capillary refill Extremity Narrative: Left upper extremity PICC line. General Extremity: Negative for edema Skin no rashes or lesions noted General Skin Exam: no breakdown Psych affect normal Appearance: appropriate Results Lab / Micro Data Result Diagrams: 02/04/23 05:11 02/04/23 05:11 Assessment & Plan Assessment/Plan (1) Debility: (2) Thoracic abscess: (3) Cellulitis of chest wall: (4) Metastatic melanoma: (5) Allergic rhinitis: (6) GERD (gastroesophageal reflux disease): (7) Hypertension: (8) Atrial fibrillation: (9) BPH (benign prostatic hyperplasia): (10) Macular degeneration: (11) Prostate cancer: (12) Hypothyroidism: (13) Rheumatoid arthritis: PLAN: Plan 83 year old male with below past medical history hospitalized for left apical thoracic abscess, status post incision and drainage 01/28/2023, admitted to TCU with debility, here for rehabilitation, strengthening, intravenous antibiotics, prior to discharge home alone. Debility - PT/OT. Pain - Tylenol 1000mg q6, Oxycodone 5mg q4h prn pain (4-10). Bowel - Miralax 17gm daily, senna/colace 1 tablet bid, Dulcolax 10mg pr x 1 prn, MOM 30ml po x 1 prn. Adult immunization - Administer pneumonia vaccine, covid19 vaccine, flu vaccine as appropriate. DVT prophylaxis - Not necessary, already on Eliquis. Hypertension - Metoprolol 25mg bid, Amlodipine 5mg daily. Atrial fibrillation - Metoprolol 25mg bid, Eliquis 5mg bid. Left thoracic abscess s/p incision/drainage - Ceftriaxone 2gm iv q24h thru 03/15/2023, consult Dr. Roach. Hypothyroidism - Levothyroxine 112mcg daily. GERD - Pantoprazole 40mg daily. BPH - Tamsulosin 0.4mg daily.
[2023-02-03 22:26] VITALS: BMI 29.9
[2023-02-03] MEDS: Acetaminophen 500 MG Tablet 1000 MG PO (23:27)
[2023-02-03] MEDS: oxyCODONE 5 MG Tablet PO (23:31)
[2023-02-04 05:02] VITALS: BP 126/83; PULSE 94
[2023-02-04] MEDS: Polyethylene Glycol 3350 17 GM PACKET PO (05:02)
[2023-02-04] MEDS: Levothyroxine 112 MCG Tablet PO (05:02)
[2023-02-04] MEDS: Metoprolol Tartrate 25 MG Tablet PO ×2 (05:02→17:19)
[2023-02-04] MEDS: amLODIPine 5 MG Tablet PO (05:02)
[2023-02-04] MEDS: Acetaminophen 500 MG Tablet 1000 MG PO ×3 (05:02→17:19)
[2023-02-04] MEDS: Pantoprazole Sodium 40 MG Tablet PO (05:02)
[2023-02-04] MEDS: Senna/Docusate Sodium 1 Tablet PO (05:10)
[2023-02-04 05:33] LABS: Absolute Lymphocyte Count 1.43 X10^3/uL (0.83-4.51); Absolute Neutrophil Count 3.2 X10^3/uL (2.0-7.7); Basophil# 0.04 X10^3/uL; Basophil% 0.7 % (0-1); Eosinophil# 0.48 X10^3/uL; Eosinophils% 8.3 % (0-5); Hematocrit 30.6 % (40-54); Lymphocyte # 1.43 X10^3/ul (0.83-4.51); Lymphocyte % 24.8 % (19-41); Mean Corp Hgb Conc 32.7 g/dL (32-36); Mean Corpuscular Hgb 32.2 pg (27.0-32.0); Mean Corpuscular Volume 98.4 fL (80-94); Mean Platelet Vol. 8.3 fl (6.2-12.0); Monocyte# 0.58 X10^3/uL; Monocyte% 10.1 % (0-10); NRBC Flagged by Analyzer 0 % (0-5); Neutrophil # 3.18 X10^3/uL (2.7-7.7); Neutrophil % 55.2 % (47-70); Platelet Count 646 K/mm3 (150-450); RBC Distribution Width SD 49.3 fl (35.1-43.9); Red Blood Count 3.11 M/mm3 (4.6-6.2); White Blood Count 5.8 K/mm3 (4.4-11.0)
[2023-02-04 05:58] LABS: Anion Gap 5 (5-15); BUN 12 mg/dL (7-18); BUN/Creat Ratio 10.8 RATIO (10-20); Chloride 105 mmol/L (98-107); Creatinine, Serum 1.11 mg/dL (0.70-1.30); EST Glomerular Filtration Rate 67 mL/min (>60); Est Glom Filt Rate - Afr Amer 82 mL/min (>60); Glucose 94 mg/dL (74-106); Potassium 3.4 mmol/L (3.5-5.1); Sodium Level 140 mmol/L (136-145)
[2023-02-04] MEDS: APIXABAN 5 MG TABLET PO ×2 (07:46→17:18)
[2023-02-04] MEDS: Potassium Chloride Oral Tablet 20 MEQ PO (08:43)
[2023-02-04 08:50] VITALS: PULSE 83; RESP 18; O2SAT 94
[2023-02-04] MEDS: Menthol/Lanolin/Calamine/Znox 113 GM Tube 1 APPLIC TOPICAL ×2 (08:57→20:42)
[2023-02-04] MEDS: Nystatin Powder 15gm Bottle 1 APPLIC TOPICAL (08:58)
[2023-02-04] MEDS: 0.9% Saline Lock 10 ML Syringe IV (09:17)
[2023-02-04] MEDS: Tuberculin,Purif.prot.deriv. 50 TU/ML Vial 0.1 ML ID (09:51)
--- NOTE | 2023-02-04 10:40 | PCM.CONS.GEN ---
Assessment & Plan Assessment/Plan (1) Metastatic melanoma: (2) Thoracic abscess: PLAN: With SC joint involvement. Now s/p OR 01/28/23 at . Reviewed records. Cxs with GBS. On ceftriaxone with stop date 03/12/23. Will need repeat CT chest prior to stopping abx. Will follow, thank you HPI Consult Data Date of Consult: 02/04/23 HPI Narrative Reason for Consultation: empyema HPI Narrative: EMPERATRIZ EPPS, is a 83 M with h/o metastatic melanoma on keytruda, presented 01/26 to [facility] ED with 1-2 weeks progressive L upper chest pain, swelling, redness. No inciting events. No issues with R chest port. Had some fever and chills. Some associated LUE weakness. C showed large abscess, empyema. Transferred to . Given vanc/zosyn, taken to IR drain placement 01/27 then OR 01/28 for I&D of abscess and sternum/clavicle. Cxs with GBS, discharge with picc on ceftriaxone for planned 6 week course. Drain still in place in chest. Feeling ok, no n/v/d, no fever. Full ROS performed and neg except as noted above. FORMERLY [facility], [facility]1983 Medical History Alcohol use Arthritis Melendrez's palsy Benign prostate hyperplasia Cancer Cough Creatinine elevation CRF (chronic renal failure) Drug rash Encounter for immunotherapy Essential hypertension Gastric reflux GERD (gastroesophageal reflux disease) Hemorrhoids History of brachytherapy Hx of malignant neoplasm of prostate Hypercholesterolemia Hypertension Hypokalemia Hypothyroidism (acquired) Hypothyroidism (acquired) Injury of back Malignant melanoma of right heel Mitral valve insufficiency Non-smoker Open wound of right heel Osteoarthritis of left knee PAF (paroxysmal atrial fibrillation) Personal history of colonic polyps PVC (premature ventricular contraction) Regional lymph node metastasis present Rheumatoid arthritis Sleep disorder Squamous cell carcinoma of skin Wears glasses Home Medications omeprazole 40 mg capsule,delayed release 40 mg PO DAILY acid reflux 10/29/20 [History Last Taken 06/19/21 08:00 40 MG] multivitamin with minerals 1 ea PO BREAKFAST supplement 10/31/20 [History Last Taken Unknown] acetaminophen 500 mg tablet (Tylenol Extra Strength) 1,000 mg PO Q6H pain 06/05/21 [History Last Taken Unknown] amlodipine 5 mg tablet 5 mg PO DAILY blood pressure 10/06/21 [History Last Taken Unknown] calcium carbonate 600 mg calcium (1,500 mg) tablet (Calcium) 600 mg PO DAILY supplement 01/20/22 [History Last Taken Unknown] glucosamine sulfate 500 mg tablet (Glucosamine) 1,000 mg PO DAILY joint supplement 03/13/22 [History Last Taken Unknown] alfuzosin 10 mg tablet,extended release 24 hr 10 mg PO DAILY@1000 urinary retention 09/28/22 [History Last Taken Unknown] acetylcysteine 600 mg capsule 600 mg PO BID mucus 10/13/22 [History Last Taken Unknown] cholecalciferol (vitamin D3) 25 mcg (1,000 unit) capsule 25 mcg PO DAILY vitamin 11/12/22 [History Last Taken Unknown] apixaban 5 mg tablet (Eliquis) 5 mg PO BIDCM blood thinner 02/03/23 [History Last Taken Unknown] ceftriaxone 2 gram intravenous piggyback 2 g IV Q24H antibiotic 02/03/23 [History Last Taken 02/03/23 14:00] levothyroxine 112 mcg tablet 112 mcg PO DAILY thyroid 02/03/23 [History Last Taken Unknown] metoprolol tartrate 25 mg tablet 25 mg PO BID blood pressure/heart 02/03/23 [History Last Taken Unknown] oxycodone 5 mg tablet 5 mg PO Q4H PRN Pain 02/03/23 [History Last Taken Unknown] polyethylene glycol 3350 17 gram oral powder packet 17 g PO DAILY constipation 02/03/23 [History Last Taken Unknown] zinc 50 mg tablet 50 mg PO DAILY suppplement 02/03/23 [History Last Taken Unknown] Allergy/AdvReac Type Severity Reaction Status Date / Time No Known Allergies Allergy Verified 01/26/23 13:48 Family History Brother Prostate cancer CVA (cerebral vascular accident) Brother Leukemia Father Hypertension Myocardial infarction Mother CHF (congestive heart failure) Surgical History (Updated 02/03/23 @ 22:[address] Kevin Candelaria MD) History of incision and drainage History of root canal procedure Hx of colonoscopy Hx of discectomy Hx of foot operation Hx of hemorrhoidectomy Hx of rotator cuff surgery Social History (Updated 02/03/23 @ 22:[address] Kevin Candelaria MD) household members: none Smoking Status: Former smoker second hand exposure: No alcohol intake: current alcohol intake frequency: a few times a month details: OCCASIONALLY substance use type: does not use well-balanced diet: about half the time caffeine: Yes Type: coffee Number of servings: 1 eating out: 1-3 times/week what type of physical activity do you participate in: bicycling frequency: 3-4 times per week duration: 15-30 minutes/day melany/mormonism: Orthodoxy seatbelt use: always do you feel safe at home: Yes Physical Exam Const alert, oriented x3 and no apparent distress General Appearance: cooperative HEENT normocephalic and head/scalp atraumatic Eyes PERRL and EOMs intact bilaterally Neck supple and No nodes Resp Auscultation: wheezes Cardio regular rate and regular rhythm GI soft to palpation, non-tender and non-distended Extremity General Extremity: Negative for edema Skin no rashes or lesions noted Skin Narrative: L chest incision healing well. R chest port and LUE picc, no inflammation Neuro CN's II-XII intact bilaterally Lab / Micro Data Attestation: I reviewed the patient's lab results. Result Diagrams: 02/04/23 05:11 02/04/23 05:11 Labs: Laboratory Results - last 24 hr 02/04/23 05:11: WBC 5.8, RBC 3.11 L, Hgb 10.0 L, Hct 30.6 L, MCV 98.4 H, MCH 32.2 H, MCHC 32.7, RDW Std Deviation 49.3 H, RDW Coeff of Halley 14.0, Plt Count 646 H, MPV 8.3, Immature Gran % (Auto) 0.900, Neut % (Auto) 55.2, Lymph % (Auto) 24.8, [place] % (Auto) 10.1 H, Eos % (Auto) 8.3 H, Baso % (Auto) 0.7, Absolute Neuts (auto) 3.2, Absolute Lymphs (auto) 1.43, Nucleated RBC % 0 02/04/23 05:11: Sodium 140, Potassium 3.4 L, Chloride 105, Carbon Dioxide 30.0, Anion Gap 5, BUN 12, Creatinine 1.11, Estim Creat Clear Calc 46.30, Est GFR (MDRD) Af Amer 82, Est GFR (MDRD) Non-Af 67, BUN/Creatinine Ratio 10.8, Glucose 94, Calcium 9.0 Micro: Microbiology 02/03/23 23:00 Nasal Secretion SARS-CoV-2 Antigen (Rapid) - Final
--- NOTE | 2023-02-04 11:25 | CASEMGMT ---
Social Work SW met with pt for initial assessment. SW discussed code status and MOLST form with pt and assisted in completing MOLST. Pt wishes are full code with intubation. MOLST placed in folder for physician and will be placed on pt chart. SW explained [employer] Medicare benefit briefly and that continued stay is not guaranteed. Visitor entering room and pt requesting that SW meet with him another day to discuss insurance benefit and returning home with IV ATB. SW will continue to follow for discharge planning and to assist with insurance information. ARABELLA Lehman
[2023-02-04 14:45] VITALS: BP 103/66; PULSE 80; RESP 16; TEMP 36.2; O2SAT 97
[2023-02-04 16:55] VITALS: O2SAT 95
[2023-02-04 17:18] VITALS: BP 133/79; PULSE 82
[2023-02-04 17:19] VITALS: BP 133/79; PULSE 82
[2023-02-04] MEDS: Tamsulosin HCl 0.4 MG Capsule PO (17:20)
[2023-02-04] MEDS: oxyCODONE 5 MG Tablet PO (20:41)
[2023-02-05] MEDS: Acetaminophen 500 MG Tablet 1000 MG PO ×5 (00:11→23:20)
[2023-02-05 05:53] VITALS: BP 116/79; PULSE 81
[2023-02-05] MEDS: Metoprolol Tartrate 25 MG Tablet PO ×2 (05:53→17:52)
[2023-02-05] MEDS: Levothyroxine 112 MCG Tablet PO (05:53)
[2023-02-05] MEDS: amLODIPine 5 MG Tablet PO (05:53)
[2023-02-05] MEDS: oxyCODONE 5 MG Tablet PO ×3 (05:54→23:20)
[2023-02-05] MEDS: Pantoprazole Sodium 40 MG Tablet PO (05:54)
[2023-02-05] MEDS: Senna/Docusate Sodium 1 Tablet PO ×2 (05:54→17:52)
[2023-02-05 06:25] LABS: Anion Gap 7 (5-15); BUN 14 mg/dL (7-18); BUN/Creat Ratio 13.5 RATIO (10-20); Calcium,Total 8.6 mg/dL (8.5-10.1); Chloride 107 mmol/L (98-107); Creatinine, Serum 1.04 mg/dL (0.70-1.30); EST Glomerular Filtration Rate 73 mL/min (>60); Est Glom Filt Rate - Afr Amer 88 mL/min (>60); Estimated Creatinine Clearance 49.42 ml/min; Glucose 98 mg/dL (74-106); Potassium 3.4 mmol/L (3.5-5.1); Sodium Level 144 mmol/L (136-145)
[2023-02-05] MEDS: APIXABAN 5 MG TABLET PO ×2 (08:38→17:52)
[2023-02-05] MEDS: Potassium Chloride Oral Tablet 20 MEQ PO (08:38)
[2023-02-05] MEDS: Menthol/Lanolin/Calamine/Znox 113 GM Tube 1 APPLIC TOPICAL ×2 (10:23→20:38)
[2023-02-05] MEDS: Nystatin Powder 15gm Bottle 1 APPLIC TOPICAL ×2 (10:23→20:38)
[2023-02-05] MEDS: 0.9% Saline Lock 10 ML Syringe IV (10:23)
--- NOTE | 2023-02-05 10:49 | NS ---
Provided copy of daily specials/first choice menu w/ instructions on how to order. Food dislikes: raisins and overly sweet foods.
--- NOTE | 2023-02-05 11:54 | NURSING ---
Grey Roll Man Note; Activity Asset: Alejandrina Huang also goes by 'Adalid He is independent in all his daily activities and is her for IV only. He has a tablet, smartphone and will use them daily. Adalid will watch tv, walk the halls and visit w/family and friends. 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
[2023-02-05 16:00] VITALS: BP 107/68; PULSE 87; RESP 16; TEMP 36.7; O2SAT 94
[2023-02-05 17:52] VITALS: PULSE 87
[2023-02-05] MEDS: Tamsulosin HCl 0.4 MG Capsule PO (17:53)
[2023-02-05 21:15] VITALS: O2SAT 96
[2023-02-06] MEDS: oxyCODONE 5 MG Tablet PO ×2 (05:44→17:49)
[2023-02-06 05:45] VITALS: BP 123/79; PULSE 76
[2023-02-06] MEDS: Senna/Docusate Sodium 1 Tablet PO ×2 (05:45→17:47)
[2023-02-06] MEDS: amLODIPine 5 MG Tablet PO (05:45)
[2023-02-06] MEDS: Levothyroxine 112 MCG Tablet PO (05:45)
[2023-02-06] MEDS: Pantoprazole Sodium 40 MG Tablet PO (05:45)
[2023-02-06] MEDS: Metoprolol Tartrate 25 MG Tablet PO ×2 (05:45→17:06)
[2023-02-06] MEDS: Acetaminophen 500 MG Tablet 1000 MG PO ×3 (05:46→17:47)
[2023-02-06] MEDS: Potassium Chloride Oral Tablet 20 MEQ PO (08:42)
[2023-02-06] MEDS: APIXABAN 5 MG TABLET PO ×2 (08:42→17:07)
[2023-02-06 09:45] VITALS: PULSE 68; RESP 18; O2SAT 96
[2023-02-06] MEDS: 0.9% Saline Lock 10 ML Syringe IV (09:45)
[2023-02-06] MEDS: Nystatin Powder 15gm Bottle 1 APPLIC TOPICAL ×2 (09:49→20:51)
[2023-02-06] MEDS: Menthol/Lanolin/Calamine/Znox 113 GM Tube 1 APPLIC TOPICAL ×2 (09:49→20:51)
--- NOTE | 2023-02-06 12:33 | NURSING ---
pt called stating that my drain is leaking yellow fluid, pt pants soiled, 40cc yellow fluid noted in bulb and emptied but also noted a large pinkish-whitish chunk of tissue blocking drain hole. able to remove tissue but could not get it expelled out of drain bulb. clean pants applied and split gauze placed around drain & suture site. pt getting ready to work with therapy. pt sitting in recliner chair visiting with friend.
[2023-02-06 15:38] VITALS: BP 137/72; PULSE 57; RESP 17; TEMP 36.6; O2SAT 97
[2023-02-06 17:06] VITALS: BP 137/72; PULSE 93
[2023-02-06] MEDS: Tamsulosin HCl 0.4 MG Capsule PO (17:07)
[2023-02-06 17:11] VITALS: PULSE 93
[2023-02-07] MEDS: Acetaminophen 500 MG Tablet 1000 MG PO ×4 (00:04→18:33)
[2023-02-07] MEDS: Senna/Docusate Sodium 1 Tablet PO (04:47)
[2023-02-07] MEDS: Levothyroxine 112 MCG Tablet PO (04:47)
[2023-02-07] MEDS: amLODIPine 5 MG Tablet PO (04:47)
[2023-02-07 04:48] VITALS: BP 117/77; PULSE 77
[2023-02-07] MEDS: Metoprolol Tartrate 25 MG Tablet PO ×2 (04:48→18:32)
[2023-02-07] MEDS: Pantoprazole Sodium 40 MG Tablet PO (04:49)
[2023-02-07] MEDS: 0.9% Saline Lock 10 ML Syringe IV ×2 (04:50→09:46)
[2023-02-07] MEDS: APIXABAN 5 MG TABLET PO ×2 (07:58→18:32)
[2023-02-07] MEDS: Potassium Chloride Oral Tablet 20 MEQ PO (07:58)
[2023-02-07] MEDS: Menthol/Lanolin/Calamine/Znox 113 GM Tube 1 APPLIC TOPICAL ×2 (09:40→22:48)
[2023-02-07] MEDS: Nystatin Powder 15gm Bottle 1 APPLIC TOPICAL ×2 (09:41→22:48)
--- NOTE | 2023-02-07 14:24 | NURSING ---
CLOTS AND SEDIMENT CLOGGING UP THE HOLES TO BOTH FARNAZ DRAIN BULBS. DRAIN TO RIGHT THIGH WAS LEAKING FLUID. FLUSHED HOLES TO BULBS WITH NS TO REMOVE DEBRE. WILL CONTINUE TO MONITOR.RN AWARE
[2023-02-07 16:00] VITALS: BP 107/73; PULSE 85; RESP 16; TEMP 36.9; O2SAT 94
[2023-02-07 18:32] VITALS: BP 107/73; PULSE 85
[2023-02-07] MEDS: Tamsulosin HCl 0.4 MG Capsule PO (18:32)
[2023-02-07 23:36] VITALS: PULSE 85; RESP 18
[2023-02-07 23:43] VITALS: BP 113/57; PULSE 85; RESP 18; TEMP 36.8; O2SAT 93
[2023-02-08] MEDS: Acetaminophen 500 MG Tablet 1000 MG PO ×3 (00:12→22:55)
[2023-02-08 05:58] VITALS: BP 112/65; PULSE 77
[2023-02-08] MEDS: Pantoprazole Sodium 40 MG Tablet PO (05:58)
[2023-02-08] MEDS: amLODIPine 5 MG Tablet PO (05:58)
[2023-02-08] MEDS: Senna/Docusate Sodium 1 Tablet PO ×2 (05:58→17:09)
[2023-02-08] MEDS: Metoprolol Tartrate 25 MG Tablet PO ×2 (05:58→17:08)
[2023-02-08] MEDS: oxyCODONE 5 MG Tablet PO ×3 (05:58→23:01)
[2023-02-08] MEDS: Levothyroxine 112 MCG Tablet PO (05:59)
[2023-02-08 06:24] LABS: Anion Gap 5 (5-15); BUN 27 mg/dL (7-18); BUN/Creat Ratio 30.3 RATIO (10-20); Calcium,Total 8.7 mg/dL (8.5-10.1); Chloride 108 mmol/L (98-107); Creatinine, Serum 0.89 mg/dL (0.70-1.30); EST Glomerular Filtration Rate 87 mL/min (>60); Est Glom Filt Rate - Afr Amer 105 mL/min (>60); Estimated Creatinine Clearance 57.75 ml/min; Glucose 92 mg/dL (74-106); Potassium 3.3 mmol/L (3.5-5.1); Sodium Level 143 mmol/L (136-145)
[2023-02-08] MEDS: APIXABAN 5 MG TABLET PO ×2 (09:37→17:09)
[2023-02-08] MEDS: Potassium Chloride Oral Tablet 20 MEQ PO ×2 (09:37→17:08)
[2023-02-08] MEDS: 0.9% Saline Lock 10 ML Syringe IV (09:42)
[2023-02-08] MEDS: Menthol/Lanolin/Calamine/Znox 113 GM Tube 1 APPLIC TOPICAL ×2 (09:45→23:01)
[2023-02-08 10:00] VITALS: PULSE 85; RESP 16; O2SAT 98
--- NOTE | 2023-02-08 10:27 | NUR.TO.PHY ---
Offered Covid 19 booster and provided education on vaccine. Resident refuses at this time.
[2023-02-08] MEDS: Nystatin Powder 15gm Bottle 1 APPLIC TOPICAL ×2 (10:30→23:01)
--- NOTE | 2023-02-08 11:35 | PCM.PN.DRR ---
TCU RX Drug Regimen Review Subjective: TCU Admission. 83 YOM presented to the ER with left shoulder/arm/neck pain. Hospitalized for left apical thoracic abscess, status post incision and drainage 01/28/2023. Admitted to TCU with debility for IV antibiotics, strengthening and rehabilitation. Objective: Allergies No Known Allergies Allergy (Verified 01/26/23 13:48) Current Medications Generic Name Dose Route Start Last Admin Trade Name Freq PRN Reason Stop Dose Admin Acetaminophen 1,000 mg 02/03/23 22:15 02/08/23 06:02 Acetaminophen 500 Mg Tablet PO Not Given Q6 SAAD Amlodipine Besylate 5 mg 02/04/23 06:00 02/08/23 05:58 Amlodipine 5 Mg Tablet PO 5 mg DAILY SAAD Administration Apixaban 5 mg 02/04/23 08:00 02/08/23 09:37 Apixaban 5 Mg Tablet PO 5 mg BIDCM SAAD Administration Bisacodyl 10 mg 02/03/23 22:43 Bisacodyl 10 Mg Suppository RC X1 PRN Constipation Calamine/Phenol 1 applic 02/04/23 10:00 02/08/23 09:45 Menthol/Lanolin/Calamine/Znox 113 Gm Tube TOPICAL 02/11/23 10:01 1 applic 1000,2200 SAAD Administration Protocol Heparin Sodium (Beef Lung) 50 units 02/03/23 22:20 Heparin Pf Lock 10 Units/Ml 50 Units/5 Ml Syringe IV UD PRN PICC Line Heparin Flush Sodium Chloride 250 mls @ 15 mls/hr 02/03/23 22:20 02/08/23 09:42 IV 15 mls/hr .[id number] PRN Administration Saline Flush Sodium Chloride 250 mls @ 15 mls/hr 02/03/23 22:20 IV .[id number] PRN Additional IVPB Infusion Ceftriaxone Sodium 2 gm/ 50 mls @ 100 mls/hr 02/04/23 10:00 02/08/23 11:05 Sodium Chloride IV Infused Q24 SAAD Infusion Levothyroxine Sodium 112 mcg 02/04/23 06:00 02/08/23 05:59 Levothyroxine 112 Mcg Tablet PO 112 mcg DAILY SAAD Administration Magnesium Hydroxide 30 ml 02/03/23 22:43 Magnesium Hydroxide 30 Ml Udc PO X1 PRN Constipation Metoprolol Tartrate 25 mg 02/04/23 06:00 02/08/23 05:58 Metoprolol Tartrate 25 Mg Tablet PO 25 mg BID SAAD Administration Nystatin 1 applic 02/04/23 10:00 02/08/23 10:30 Nystatin Powder 15gm Bottle TOPICAL 02/11/23 10:01 1 applic 1000,2200 SAAD Administration Protocol Oxycodone HCl 5 mg 02/03/23 22:07 02/08/23 10:29 Oxycodone 5 Mg Tablet PO 5 mg Q4H PRN PRN Administration Pain Score 4-10 Pantoprazole Sodium 40 mg 02/04/23 06:00 02/08/23 05:58 Pantoprazole Sodium 40 Mg Tablet PO 40 mg DAILY SAAD Administration Polyethylene Glycol 17 gm 02/04/23 06:00 02/08/23 05:54 Polyethylene Glycol 3350 17 Gm Packet PO Not Given DAILY [facility] Potassium Chloride 20 meq 02/08/23 08:00 02/08/23 09:37 Potassium Chloride Oral Tablet 20 Meq PO 20 meq BIDCM SAAD Administration Senna/Docusate Sodium 1 tablet 02/03/23 22:45 02/08/23 05:58 Senna/Docusate Sodium 1 Tablet PO 1 tablet BID [facility] Administration Sodium Chloride 10 - 40 ml 02/03/23 22:20 02/08/23 09:42 0.9% Saline Lock 10 Ml Syringe IV 30 ml UD PRN Administration Open End PICC Flush Sodium Chloride 10 - 40 ml 02/03/23 22:20 0.9 % Nacl (Sterile) Posiflush 10 Ml IV UD PRN Port access or dressing change Tamsulosin HCl 0.4 mg 02/04/23 17:30 02/07/23 18:32 Tamsulosin Hcl 0.4 Mg Capsule PO 0.4 mg DAILY@1730 [facility] Administration Tuberculin PPD 0.1 ml 02/11/23 10:00 Tuberculin,Purif.Prot.Deriv. 50 Tu/Ml Vial ID 02/11/23 10:01 X1 ONE Problem List (Last Reviewed 02/04/23 @ 10:[address] Gregor Roach MD) Rheumatoid arthritis (Acute) Hypothyroidism (Acute) Prostate cancer (Acute) Macular degeneration (Acute) BPH (benign prostatic hyperplasia) (Acute) Atrial fibrillation (Acute) Hypertension (Chronic) GERD (gastroesophageal reflux disease) (Acute) Allergic rhinitis (Acute) Metastatic melanoma (Acute) Cellulitis of chest wall (Acute) Thoracic abscess (Acute) Debility (Acute) Vital Signs Temp Pulse Resp BP Pulse Ox O2 Del Method 98.2 F 85 16 112/65 98 Room Air 02/07/23 23:43 02/08/23 10:00 02/08/23 10:00 02/08/23 05:58 02/08/23 10:00 02/08/23 10:00 Oxygen Delivery Method Room Air Weight: 85.7 kg Body Mass Index (BMI) 29.9 Sodium 143 mmol/L (136-145) 02/08/23 05:20 Potassium 3.3 mmol/L (3.5-5.1) L 02/08/23 05:20 Chloride 108 mmol/L (98-107) H 02/08/23 05:20 Carbon Dioxide 30.0 mmol/L (21.0-32.0) 02/08/23 05:20 Anion Gap 5 (5-15) 02/08/23 05:20 BUN 27 mg/dL (7-18) H 02/08/23 05:20 Creatinine 0.89 mg/dL (0.70-1.30) 02/08/23 05:20 Est GFR (MDRD) Af Amer 105 mL/min (>60) 02/08/23 05:20 Est GFR (MDRD) Non-Af 87 mL/min (>60) 02/08/23 05:20 BUN/Creatinine Ratio 30.3 RATIO (10-20) H 02/08/23 05:20 Glucose 92 mg/dL (74-106) 02/08/23 05:20 Assessment/Plan: 1. Pain: acetaminophen 1000mg PO Q6 and oxycodone 5mg PO Q4H PRN pain 4-10. Resident has had 9 doses of oxycodone for pain scores of 4-7 in the chest/shoulder/arm. Please continue to monitor for increased pain, PRN usage, constipation and respiratory depression. 2. Bowel: Miralax 17gm PO daily, senna/docusate 1T PO BID, bisacodyl 10mg RC x1 PRN constipation and MOM 30mL PO x1 PRN constipation. Resident has not had any PRN doses. Please consider changing Miralax from scheduled to PRN as the resident has refused 4 out of the last 5 doses. Thanks. Please continue to monitor for constipation (last documented bowel movement 02/06) and PRN usage. 3. Left thoracic abscess s/p I&D: ceftriaxone 2gm IV daily thru 03/15/23. ID consulted. Please continue to monitor for S/S of infection and diarrhea. 4. Hypertension/atrial fibrillation: metoprolol tartrate 25mg PO BID, amlodipine 5mg PO daily and apixaban 5mg PO BID. Please continue to monitor for S/S of bleeding, hemoglobin (last 10g/dL), BP (last 112/65), and HR (last 85). 5. Hypothyroidism: levothyroxine 112mcg PO daily. Please continue to monitor TSH (last 10/14/22) and S/S of hypo/hyperthyroidism. 6. GERD: pantoprazole 40mg PO daily. Please continue to monitor for S/S of GERD and diarrhea (BEERs criteria due to increased risk of C. diff infections). 7. BPH: tamsulosin 0.4mg PO daily. Please continue to monitor for S/S of BPH and BP. 8. Hypokalemia (per potassium 3.3mmol/L): potassium chloride 20mEq PO BID. Please continue to monitor potassium. Assessment/Plan for indications treated with psychotropic medications: None Medical chart and medication regimen reviewed. The following medication irregularities or issues were identified: 1. Please consider changing Miralax from scheduled to PRN as the resident has refused 4 out of the last 5 doses. Thanks. Date of Note:: 02/08/23
[2023-02-08 15:22] VITALS: BP 129/73; PULSE 85; RESP 18; TEMP 36.9; O2SAT 97
--- NOTE | 2023-02-08 16:04 | NURSING ---
Contacted Dr Oliver's office, spoke with nurse Veroniak. Notified them of several blood clots to chest drain tubing. Veronika stated as long as the tubing is still draining, that this is fine. Also questioned if Dr. Oliver wants sutures to chest to remain in place until the February 25 appt, they stated yes.
[2023-02-08 17:08] VITALS: PULSE 100
[2023-02-08] MEDS: Tamsulosin HCl 0.4 MG Capsule PO (17:08)
[2023-02-09] MEDS: oxyCODONE 5 MG Tablet PO ×2 (05:45→23:07)
[2023-02-09] MEDS: Levothyroxine 112 MCG Tablet PO (05:46)
[2023-02-09] MEDS: Senna/Docusate Sodium 1 Tablet PO ×2 (05:46→17:44)
[2023-02-09] MEDS: Pantoprazole Sodium 40 MG Tablet PO (05:46)
[2023-02-09] MEDS: Acetaminophen 500 MG Tablet 1000 MG PO ×4 (05:46→23:07)
[2023-02-09] MEDS: amLODIPine 5 MG Tablet PO (05:46)
[2023-02-09 05:47] VITALS: BP 125/83; PULSE 82
[2023-02-09] MEDS: Metoprolol Tartrate 25 MG Tablet PO ×2 (05:47→17:45)
[2023-02-09] MEDS: APIXABAN 5 MG TABLET PO ×2 (08:58→17:45)
[2023-02-09] MEDS: Potassium Chloride Oral Tablet 20 MEQ PO ×2 (08:58→17:45)
[2023-02-09] MEDS: Menthol/Lanolin/Calamine/Znox 113 GM Tube 1 APPLIC TOPICAL ×2 (08:59→23:10)
[2023-02-09] MEDS: 0.9% Saline Lock 10 ML Syringe IV (09:02)
[2023-02-09] MEDS: Nystatin Powder 15gm Bottle 1 APPLIC TOPICAL ×2 (09:06→23:10)
[2023-02-09 14:29] VITALS: BMI 30.2
[2023-02-09 15:35] VITALS: BP 124/68; PULSE 84; RESP 16; TEMP 36.3; O2SAT 96
[2023-02-09] MEDS: Tamsulosin HCl 0.4 MG Capsule PO (17:44)
[2023-02-09 17:45] VITALS: PULSE 84
[2023-02-09 21:30] VITALS: O2SAT 96
[2023-02-10] MEDS: Pantoprazole Sodium 40 MG Tablet PO (05:41)
[2023-02-10] MEDS: Polyethylene Glycol 3350 17 GM PACKET PO (05:41)
[2023-02-10] MEDS: Acetaminophen 500 MG Tablet 1000 MG PO ×4 (05:42→23:34)
[2023-02-10 05:43] VITALS: BP 125/86; PULSE 80
[2023-02-10] MEDS: amLODIPine 5 MG Tablet PO (05:43)
[2023-02-10] MEDS: Levothyroxine 112 MCG Tablet PO (05:43)
[2023-02-10] MEDS: Metoprolol Tartrate 25 MG Tablet PO ×2 (05:43→17:03)
[2023-02-10] MEDS: Senna/Docusate Sodium 1 Tablet PO ×2 (05:44→17:03)
[2023-02-10 06:38] LABS: Anion Gap 4 (5-15); BUN 28 mg/dL (7-18); BUN/Creat Ratio 30.2 RATIO (10-20); Calcium,Total 8.8 mg/dL (8.5-10.1); Chloride 111 mmol/L (98-107); Creatinine, Serum 0.93 mg/dL (0.70-1.30); EST Glomerular Filtration Rate 83 mL/min (>60); Est Glom Filt Rate - Afr Amer 100 mL/min (>60); Estimated Creatinine Clearance 55.26 ml/min; Glucose 103 mg/dL (74-106); Potassium 3.6 mmol/L (3.5-5.1); Sodium Level 143 mmol/L (136-145)
[2023-02-10] MEDS: Potassium Chloride Oral Tablet 20 MEQ PO ×2 (07:42→17:01)
[2023-02-10] MEDS: APIXABAN 5 MG TABLET PO ×2 (07:42→17:03)
--- NOTE | 2023-02-10 08:50 | NURSING ---
Voice Teacher Note; MDS Complete
[2023-02-10] MEDS: Nystatin Powder 15gm Bottle 1 APPLIC TOPICAL ×2 (10:08→20:56)
[2023-02-10] MEDS: Menthol/Lanolin/Calamine/Znox 113 GM Tube 1 APPLIC TOPICAL ×2 (10:08→20:56)
--- NOTE | 2023-02-10 13:49 | CASEMGMT ---
Social Work IDT met with patient and dtr via conference call for care plan meeting. Discussed patient's progress in PT/OT/SN. Educated to [facility] insurance with NRD 02/17 and continued stay is not guaranteed. Therapy will DC 02/17, as pt is adlib. Pt remains in IV ATB through 03/15. Inquired about having administering IV ATB himself, but pt declined and stated he was not comfortable. Pt states he does not have any assistance at home either. Discussed other options - DC home with HHC or DC home going to the infusion center without HHC. Pt requesting pricing for IV ABT at home. SW to refer to [facility]. Confirmed stop date is 03/12. SW to follow for DC planning. Jackie Escamilla, LONG TERM CARE PHLEBOTOMIST HYDROGRAPHIC SURVEYOR
[2023-02-10 15:36] VITALS: BP 123/70; PULSE 79; RESP 16; TEMP 36.4; O2SAT 94
--- NOTE | 2023-02-10 15:57 | CASEMGMT ---
Social Work BIMS () and PHQ-9 (09/24) completed for MDS assessment. SW explored positive responses. 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 Pt reports to food not tasting good, resulting i poor appetite. Pt is receiving IV ATB that could impact his taste buds and appetite. Pt reports to speaking differently (more hoarse) since intubation and having trouble concentrating on things. Pt explains that is another reason why he doesn't trust himself administering the ATB. SW offered ST consult to assist with exercises. Pt agreeable. Pt explained feeling nervous being home alone since he was alone when the incident occurred and had to call his cousin to come over. SW also explained and provided resources for medical alert buttons and watches since pt lives home alone. Pt appreciative. Pt expressed overall, he is improving with continued therapy and nursing assistance. ST order entered. Jackie Escamilla, ELECTRICAL SIGN WIRER THERAPY TEACHER
[2023-02-10 17:03] VITALS: PULSE 83
[2023-02-10] MEDS: Tamsulosin HCl 0.4 MG Capsule PO (17:03)
[2023-02-10] MEDS: oxyCODONE 5 MG Tablet PO (20:54)
--- NOTE | 2023-02-10 22:12 | NURSING ---
split gauze tape pulling at hair on legs around FARNAZ drain to RT groin. Removed, cleaned area with soap and H2O. applied fresh split gauze and wrapped with GELY wrap to hold dressing on. pt very satisfied with that instead of tape on skin. old split gauze dry, no drng noted. Emptied FARANZ drain 30cc yellow fluid.
[2023-02-11 05:33] VITALS: BP 127/79; PULSE 83
[2023-02-11] MEDS: Metoprolol Tartrate 25 MG Tablet PO ×2 (05:33→17:22)
[2023-02-11] MEDS: Pantoprazole Sodium 40 MG Tablet PO (05:34)
[2023-02-11] MEDS: amLODIPine 5 MG Tablet PO (05:34)
[2023-02-11] MEDS: Polyethylene Glycol 3350 17 GM PACKET PO (05:34)
[2023-02-11] MEDS: Levothyroxine 112 MCG Tablet PO (05:34)
[2023-02-11] MEDS: Senna/Docusate Sodium 1 Tablet PO ×2 (05:34→17:22)
[2023-02-11] MEDS: Acetaminophen 500 MG Tablet 1000 MG PO ×4 (05:47→23:11)
[2023-02-11 05:51] LABS: Absolute Lymphocyte Count 1.71 X10^3/uL (0.83-4.51); Absolute Neutrophil Count 2.4 X10^3/uL (2.0-7.7); Basophil# 0.06 X10^3/uL; Basophil% 1.1 % (0-1); Eosinophil# 0.78 X10^3/uL; Eosinophils% 13.7 % (0-5); Hematocrit 29.6 % (40-54); Hemoglobin 9.4 g/dL (13.0-16.5); Lymphocyte # 1.71 X10^3/ul (0.83-4.51); Lymphocyte % 30.1 % (19-41); Mean Corp Hgb Conc 31.8 g/dL (32-36); Mean Corpuscular Hgb 31.2 pg (27.0-32.0); Mean Corpuscular Volume 98.3 fL (80-94); Mean Platelet Vol. 8.7 fl (6.2-12.0); Monocyte# 0.76 X10^3/uL; Monocyte% 13.4 % (0-10); NRBC Flagged by Analyzer 0 % (0-5); Neutrophil # 2.35 X10^3/uL (2.7-7.7); Neutrophil % 41.2 % (47-70); Platelet Count 530 K/mm3 (150-450); RBC Distribution Width CV 13.7 % (11.6-14.6); RBC Distribution Width SD 48.7 fl (35.1-43.9); Red Blood Count 3.01 M/mm3 (4.6-6.2); White Blood Count 5.7 K/mm3 (4.4-11.0)
[2023-02-11 06:25] LABS: ALB/GLOB Ratio 0.5 RATIO (0.9-2.4); AST(SGOT) 16 U/L (15-37); Alanine Aminotransfer ALT/SGPT 22 U/L (16-61); Albumin, Serum 2.1 g/dL (3.2-5.0); Alkaline Phosphatase 104 U/L (45-117); Anion Gap 4 (5-15); BUN 27 mg/dL (7-18); BUN/Creat Ratio 27.5 RATIO (10-20); Calcium,Total 8.8 mg/dL (8.5-10.1); Chloride 109 mmol/L (98-107); Creatinine, Serum 0.98 mg/dL (0.70-1.30); EST Glomerular Filtration Rate 78 mL/min (>60); Est Glom Filt Rate - Afr Amer 94 mL/min (>60); Estimated Creatinine Clearance 52.44 ml/min; Glucose 96 mg/dL (74-106); Potassium 3.5 mmol/L (3.5-5.1); Protein, Total 6.1 g/dL (6.4-8.2); Sodium Level 141 mmol/L (136-145)
[2023-02-11 07:15] LABS: Erythrocyte Sedimentation Rate 88 mm/hr (0-20)
[2023-02-11] MEDS: APIXABAN 5 MG TABLET PO ×2 (07:44→17:22)
[2023-02-11] MEDS: Potassium Chloride Oral Tablet 20 MEQ PO ×2 (07:45→17:22)
--- NOTE | 2023-02-11 08:34 | NURSING ---
Faxed all recent labs to Dr. Ponce.
--- NOTE | 2023-02-11 10:04 | NURSING ---
PT WANTING A SHOWER AND WAS GOING TO GET IN ONE TODAY. THIS NURSE STATED WE DONT HAVE ANY ORDERS ON WHEN HE IS ALLOWED TO GET ONE. THIS NURSE STATED SHE WOULD CALL HIS SURGEON AND FIND OUT. PT THANKED THIS NURSE. THIS NURSE MADE CALL TO ,GOT ANSWER MACHINE AND LEFT MESSAGE.
[2023-02-11] MEDS: Nystatin Powder 15gm Bottle 1 APPLIC TOPICAL (10:38)
[2023-02-11] MEDS: 0.9% Saline Lock 10 ML Syringe IV ×2 (10:48→12:31)
[2023-02-11] MEDS: Tuberculin,Purif.prot.deriv. 50 TU/ML Vial 0.1 ML ID (11:39)
[2023-02-11 15:46] VITALS: BP 116/71; PULSE 89; RESP 18; TEMP 36.3; O2SAT 95
[2023-02-11 17:22] VITALS: BP 116/71; PULSE 89
[2023-02-11] MEDS: Tamsulosin HCl 0.4 MG Capsule PO (17:22)
--- NOTE | 2023-02-11 17:55 | NURSING ---
PT CONTINUES TO HAVE A LARGE AMOUNT OF YELLOW DRAINAGE AT SITE OF FARNAZ TUBE IN GROIN AREA. HAD DR. VAZQUEZ LOOK AT IT. THIS NURSE AND PRIVATE EQUITY ASSOCIATE LEFT 3 MESSAGES TO OFFICE TODAY WITH NO RESPONSE. PT CALLED DR. MACIAS HIS SELF AT 1730 AND LEFT MESSAGE TO CALL TCU. WILL CONTINUE TO MONITOR.
[2023-02-11 21:00] VITALS: O2SAT 97
[2023-02-11] MEDS: oxyCODONE 5 MG Tablet PO (23:08)
[2023-02-12] MEDS: Acetaminophen 500 MG Tablet 1000 MG PO ×4 (06:20→23:28)
[2023-02-12] MEDS: Pantoprazole Sodium 40 MG Tablet PO (06:20)
[2023-02-12 06:21] VITALS: BP 121/83; PULSE 91
[2023-02-12] MEDS: Senna/Docusate Sodium 1 Tablet PO ×2 (06:21→17:49)
[2023-02-12] MEDS: amLODIPine 5 MG Tablet PO (06:21)
[2023-02-12] MEDS: Metoprolol Tartrate 25 MG Tablet PO ×2 (06:21→17:49)
[2023-02-12] MEDS: Levothyroxine 112 MCG Tablet PO (06:21)
[2023-02-12] MEDS: APIXABAN 5 MG TABLET PO ×2 (08:36→17:49)
[2023-02-12] MEDS: Potassium Chloride Oral Tablet 20 MEQ PO ×2 (08:37→17:49)
--- NOTE | 2023-02-12 08:47 | NURSING ---
Addendum entered by Ab Meyers 02/12/23 10:35: FAM FROM OFFICE CALLED BACK AND STATED THAT PT CAN SHOWER,ONLY LET WATER AND SOAP RUN OVER FARNAZ DRAIN AREAS AND MAKE SURE AREAS ARE SECURED. SHE ALSO STATED SHE WILL GET A HOLD OF DR. MACIAS AND SEE IF HE CAN SEE PT ON 02/25/23 WHEN PT COMES TO SEE DR. BOGGS FOR FOLLOW UPS AND WILL CALL BACK TO LET US KNOW TODAY OR WEDNESDAY. ALSO DISCUSSED FARNAZ DRAIN IN RIGHT GROIN THAT HAS BEEN LEAKING AROUND SITE. FAM STATED TO MILK THE TUBING WITH OUT PULLING DRAIN OUT, CAUSE SOME TIMES TISSUE WILL BLOCK THE OPENING OF TUBE. ALSO THE HOLE CAN GET BIGGER IN TIME. IF ANY PROBLEMS TO CALL BACK. RN AWARE Original Note: THIS NURSE CALLED OFFICE AGAIN AND NO ANSWER SO LEFT MESSAGE FOR THEM TO GET BACK WITH US DUE TO PT HAVING ISSUES WITH GROIN DRAIN AND NEED TO SCHEDULE A FOLLOW UP APPOINTMENT.
[2023-02-12] MEDS: 0.9% Saline Lock 10 ML Syringe IV (10:00)
[2023-02-12 10:35] VITALS: PULSE 89; RESP 17; O2SAT 98
[2023-02-12 15:55] VITALS: BP 113/78; PULSE 97; RESP 20; TEMP 36.8; O2SAT 97
--- NOTE | 2023-02-12 16:35 | CASEMGMT ---
Social Work Received return call from Anusha at [facility] with pricing of $125/wk for ATB and supply cost. Jackie Escamilla MANAGER CUSTOMS CHEMICAL APPLICATOR
[2023-02-12 17:49] VITALS: BP 113/78; PULSE 97
[2023-02-12] MEDS: Tamsulosin HCl 0.4 MG Capsule PO (17:49)
--- NOTE | 2023-02-12 18:40 | NURSING ---
Right FARNAZ drain emptied with 50ml clear straw yellow drainage. Right FARNAZ drain emptied with 15ml of serosanguineous drainage.
--- NOTE | 2023-02-12 20:01 | NURSING ---
Pt has +1 pitting edema noted to lower right extremity, around the wrist. IV patent and good blood return. No noted infiltration to IV site, no swelling to IV site. RN aware and noted
[2023-02-13 05:28] VITALS: BP 109/69; PULSE 87
[2023-02-13] MEDS: amLODIPine 5 MG Tablet PO (05:28)
[2023-02-13] MEDS: Metoprolol Tartrate 25 MG Tablet PO ×2 (05:28→16:46)
[2023-02-13] MEDS: Acetaminophen 500 MG Tablet 1000 MG PO ×3 (05:29→17:01)
[2023-02-13] MEDS: Pantoprazole Sodium 40 MG Tablet PO (05:29)
[2023-02-13] MEDS: Levothyroxine 112 MCG Tablet PO (05:29)
[2023-02-13] MEDS: Senna/Docusate Sodium 1 Tablet PO ×2 (05:29→16:46)
[2023-02-13] MEDS: Potassium Chloride Oral Tablet 20 MEQ PO ×2 (07:43→16:46)
[2023-02-13] MEDS: APIXABAN 5 MG TABLET PO ×2 (07:43→16:46)
[2023-02-13] MEDS: 0.9% Saline Lock 10 ML Syringe IV (09:56)
[2023-02-13] MEDS: oxyCODONE 5 MG Tablet PO (12:04)
[2023-02-13 15:57] VITALS: BP 111/61; PULSE 94; RESP 14; TEMP 36.9; O2SAT 92
[2023-02-13 16:46] VITALS: PULSE 94
[2023-02-13] MEDS: Tamsulosin HCl 0.4 MG Capsule PO (16:46)
[2023-02-14] MEDS: Acetaminophen 500 MG Tablet 1000 MG PO ×4 (00:12→18:32)
[2023-02-14] MEDS: oxyCODONE 5 MG Tablet PO ×2 (00:13→22:51)
[2023-02-14 07:00] VITALS: BP 118/76; PULSE 93
[2023-02-14] MEDS: Pantoprazole Sodium 40 MG Tablet PO (07:00)
[2023-02-14] MEDS: amLODIPine 5 MG Tablet PO (07:00)
[2023-02-14] MEDS: APIXABAN 5 MG TABLET PO ×2 (07:00→18:32)
[2023-02-14] MEDS: Metoprolol Tartrate 25 MG Tablet PO ×2 (07:00→18:35)
[2023-02-14] MEDS: Polyethylene Glycol 3350 17 GM PACKET PO (07:00)
[2023-02-14] MEDS: Levothyroxine 112 MCG Tablet PO (07:00)
[2023-02-14] MEDS: Senna/Docusate Sodium 1 Tablet PO ×2 (07:01→18:32)
[2023-02-14] MEDS: Potassium Chloride Oral Tablet 20 MEQ PO ×2 (09:11→18:32)
[2023-02-14 14:58] VITALS: BP 123/74; PULSE 94; RESP 16; TEMP 36.8; O2SAT 95
[2023-02-14] MEDS: Tamsulosin HCl 0.4 MG Capsule PO (18:32)
[2023-02-14 18:35] VITALS: BP 144/117; PULSE 97
[2023-02-14 23:10] VITALS: O2SAT 97
[2023-02-15] MEDS: Acetaminophen 500 MG Tablet 1000 MG PO ×4 (06:22→22:46)
[2023-02-15 06:23] VITALS: BP 118/73; PULSE 91
[2023-02-15] MEDS: Metoprolol Tartrate 25 MG Tablet PO ×2 (06:23→17:09)
[2023-02-15] MEDS: Pantoprazole Sodium 40 MG Tablet PO (06:23)
[2023-02-15] MEDS: amLODIPine 5 MG Tablet PO (06:24)
[2023-02-15] MEDS: Senna/Docusate Sodium 1 Tablet PO ×2 (06:24→17:10)
[2023-02-15] MEDS: Levothyroxine 112 MCG Tablet PO (06:24)
[2023-02-15] MEDS: APIXABAN 5 MG TABLET PO ×2 (08:17→17:10)
[2023-02-15] MEDS: Potassium Chloride Oral Tablet 20 MEQ PO ×2 (08:17→17:10)
--- NOTE | 2023-02-15 08:36 | NURSING ---
CALLED AFM NEWSPAPER CARRIERS SUPERVISOR TO TO SEE IF THE DOCTOR WILL SEE PT THE SAME DAY . FAM STATED IS ON VACATION AND WILL MASOUD HIM, SHE WILL GET BACK WITH US WHEN SHE HERES FROM HIM. HE MAY SEE PT DUE TO PT WILL BE 8 WEEKS OUT FROM SURGERY.
[2023-02-15] MEDS: 0.9% Saline Lock 10 ML Syringe IV ×3 (09:54→09:56)
[2023-02-15 10:11] VITALS: PULSE 86; RESP 18; O2SAT 98
[2023-02-15 14:35] VITALS: BP 117/63; PULSE 82; RESP 18; TEMP 36.6; O2SAT 93
--- NOTE | 2023-02-15 16:40 | CASEMGMT ---
Social Work SW spoke with pt to review pricing for IV ATB at home. Pt stated he used [facility] prior for SN 2x/wk. Pt will think about it further. SW left message with Anusha at [facility] to update. Will continue to follow. Jackie Escamilla, DRY CHAIN OFFBEARER COOK HELPER FRUIT
[2023-02-15 17:09] VITALS: BP 117/63; PULSE 81
[2023-02-15] MEDS: Tamsulosin HCl 0.4 MG Capsule PO (17:10)
[2023-02-15] MEDS: Glycerin/Hypromellose/PEG400 15 ml Bottle 2 DRP EACH EYE ×2 (18:32→22:47)
--- NOTE | 2023-02-15 22:15 | NURSING ---
PICC dressing changed. Lumen flushed well and blood return noted. No drainage, bleeding, redness, or edema noted. Patient tolerated fair.
--- NOTE | 2023-02-15 22:30 | NURSING ---
PICC line dressing changed.
[2023-02-16] MEDS: Levothyroxine 112 MCG Tablet PO (06:30)
[2023-02-16 06:31] VITALS: BP 137/82; PULSE 88
[2023-02-16] MEDS: Acetaminophen 500 MG Tablet 1000 MG PO ×4 (06:31→23:29)
[2023-02-16] MEDS: amLODIPine 5 MG Tablet PO (06:31)
[2023-02-16] MEDS: Pantoprazole Sodium 40 MG Tablet PO (06:31)
[2023-02-16] MEDS: Senna/Docusate Sodium 1 Tablet PO ×2 (06:31→17:43)
[2023-02-16] MEDS: Metoprolol Tartrate 25 MG Tablet PO ×2 (06:31→17:43)
[2023-02-16] MEDS: APIXABAN 5 MG TABLET PO ×2 (07:46→17:43)
[2023-02-16] MEDS: Glycerin/Hypromellose/PEG400 15 ml Bottle 2 DRP EACH EYE ×3 (07:46→17:41)
[2023-02-16] MEDS: Potassium Chloride Oral Tablet 20 MEQ PO ×2 (07:46→17:43)
--- NOTE | 2023-02-16 08:46 | NURSING ---
PT REQUESTING STAFF TO CALL TO SEE IF HE SHOULD GET HIS RETINOL INJECTION FOR MACULAR DEGENERATION. THIS NURSE CALLED DR. SARAH AND THEY SAID THEY WOULD CALL BACK TO LET US KNOW IF PT SHOULD WAIT OR MAKE APPOINTMENT. RN AWARE
--- NOTE | 2023-02-16 09:01 | MDS.RN ---
Information for the mds was obtained from review of the clinical record, interview of resident, staff, and direct observation of resident's care.
[2023-02-16] MEDS: 0.9% Saline Lock 10 ML Syringe IV (09:26)
[2023-02-16 11:15] VITALS: BMI 29.6
[2023-02-16 15:34] VITALS: BP 116/76; PULSE 84; RESP 18; TEMP 36.9; O2SAT 99
--- NOTE | 2023-02-16 16:52 | CASEMGMT ---
Social Work Pt presented to this worker's office and explained information about insurance coverage. Pt stated he called [facility] and was informed that he has SNF copays beginning day 21 at $196/day. ABA educated that IV ATB at home are $125/wk. Day 21 in TCU is 02/23. Pt is electing to DC home and will administer own IVs. Pt used [facility] prior for SN and requesting to use at DC. Pt denies therapy or DME needs. Family to transport. ABA entered nursing communication nonorder to begin teaching with pt. Spoke with Doreen at [facility] for infusion referral. Referred to [facility] via [employer]. Plan: DC home alone 02/23, IV ATB through [facility] Option Care, [facility] MAT Chakraborty
[2023-02-16 17:43] VITALS: BP 116/76; PULSE 84
[2023-02-16] MEDS: Tamsulosin HCl 0.4 MG Capsule PO (17:43)
--- NOTE | 2023-02-16 19:31 | DS.PCM_ITS ---
Providers Date of Admission: 02/03/23 Primary Care Physician: Dr. Anurag Dolan MD Consultations 02/03/23 22:43 Consult: Infectious Disease Routine Consulting Provider: Gregor Roach Reason for Consult: Left thoracic abscess s/p I&D, group B strep. EMERGENT Consult: No MD Notified: Yes Date Notified: 02/03/23 Time Notified: 22:44 Method of Notification: Text Reason For Visit: THORACIC ABSCESS Diagnosis Discharge Diagnosis (1) Metastatic melanoma: Status: Acute Code(s): C43.9 - Malignant melanoma of skin, unspecified (2) Thoracic abscess: Status: Acute Code(s): J86.9 - Pyothorax without fistula (3) Debility: Status: Acute Code(s): R53.81 - Other malaise (4) Cellulitis of chest wall: Status: Acute Code(s): L03.313 - Cellulitis of chest wall (5) Allergic rhinitis: Status: Acute Code(s): J30.9 - Allergic rhinitis, unspecified (6) GERD (gastroesophageal reflux disease): Status: Acute Code(s): K21.9 - Gastro-esophageal reflux disease without esophagitis (7) Hypertension: Status: Chronic Code(s): I10 - Essential (primary) hypertension (8) Atrial fibrillation: Status: Acute Code(s): I48.91 - Unspecified atrial fibrillation (9) BPH (benign prostatic hyperplasia): Status: Acute Code(s): N40.0 - Benign prostatic hyperplasia without lower urinary tract symptoms (10) Macular degeneration: Status: Acute Code(s): H35.30 - Unspecified macular degeneration (11) Prostate cancer: Status: Acute Code(s): C61 - Malignant neoplasm of prostate (12) Hypothyroidism: Status: Acute Code(s): E03.9 - Hypothyroidism, unspecified (13) Rheumatoid arthritis: Status: Acute Code(s): M06.9 - Rheumatoid arthritis, unspecified Plan 83 year old male with below past medical history hospitalized for left apical thoracic abscess, status post incision and drainage 01/28/2023, admitted to TCU with debility, here for rehabilitation, strengthening, intravenous antibiotics, prior to discharge home alone. * Debility - PT/OT. * Pain - Tylenol 1000mg q6, Oxycodone 5mg q4h prn pain (4-10). * Bowel - Miralax 17gm daily, senna/colace 1 tablet bid, Dulcolax 10mg pr x 1 prn, MOM 30ml po x 1 prn. * Adult immunization - Administer pneumonia vaccine, covid19 vaccine, flu vaccine as appropriate. * DVT prophylaxis - Not necessary, already on Eliquis. * Hypertension - Metoprolol 25mg bid, Amlodipine 5mg daily. * Atrial fibrillation - Metoprolol 25mg bid, Eliquis 5mg bid. * Left thoracic abscess s/p incision/drainage - Ceftriaxone 2gm iv q24h thru 03/15/2023, consult Dr. Roach. * Hypothyroidism - Levothyroxine 112mcg daily. * GERD - Pantoprazole 40mg daily. * BPH - Tamsulosin 0.4mg daily. Medications at Discharge Home Medications omeprazole 40 mg capsule,delayed release 40 mg PO DAILY acid reflux 10/29/20 acetaminophen 500 mg tablet (Tylenol Extra Strength) 1,000 mg PO Q6H pain 06/05/21 amlodipine 5 mg tablet 5 mg PO DAILY blood pressure 10/06/21 calcium carbonate 600 mg calcium (1,500 mg) tablet (Calcium) 600 mg PO DAILY supplement 01/20/22 alfuzosin 10 mg tablet,extended release 24 hr 10 mg PO DAILY@1000 urinary retention 09/28/22 apixaban 5 mg tablet (Eliquis) 5 mg PO BIDCM blood thinner 02/03/23 levothyroxine 112 mcg tablet 112 mcg PO DAILY thyroid 02/03/23 metoprolol tartrate 25 mg tablet 25 mg PO BID blood pressure/heart 02/03/23 polyethylene glycol 3350 17 gram oral powder packet 17 g PO DAILY constipation 02/03/23 oxycodone 5 mg tablet 5 mg PO Q4H PRN PRN Pain Score 4-10 7 days #42 tabs 02/16/23 peg [id number] 1 %-0.2 %-0.2 % eye drops (Artificial Tears (pg400 -hypromell-glycerin)) 2 drp EACH EYE Q1H PRN DRY EYES #0 mL 02/16/23 potassium chloride 20 mEq tablet,extended release(part/cryst) (Klor-Con M) 20 meq PO BIDCM 30 days #60 tabs 02/16/23 Hospital Course Operations - (See below.) Procedures None Summary of Care Provided Minutes Spent on Discharge: 35 Hospital Course: 83 year old male with below past medical history hospitalized for left apical thoracic abscess, status post incision and drainage 01/28/2023, admitted to TCU with debility, here for rehabilitation, strengthening, intravenous antibiotics, prior to discharge home alone. Discharge home alone 02/23/2023, IV ATB through [facility]. Physical Exam Const alert General Appearance: cooperative HEENT normocephalic Eyes PERRL and EOMs intact bilaterally Neck supple, no JVD and no carotid bruits Resp normal respiratory effort, normal air movement and clear to auscultation bilaterally Cardio regular rate and regular rhythm Cardio Narrative: Left upper chest drain. GI normal to inspection, nondistended, normoactive bowel sounds, non-tender and non-distended GI Narrative: Right groin drain. Extremity normal capillary refill Extremity Narrative: LUE PICC line. General Extremity: Negative for edema Skin no rashes or lesions noted General Skin Exam: no breakdown Psych affect normal Appearance: appropriate Weight / BMI Weight Weight: 84.623 kg Body Mass Index (BMI) 29.6 ABG / Lab / Microbiology Data Result Diagrams: 02/11/23 05:11 02/11/23 05:11 Microbiology: Microbiology 02/07/23 04:56 Nasal Secretion SARS-CoV-2 Antigen (Rapid) - Final 02/05/23 06:00 Nasal Secretion SARS-CoV-2 Antigen (Rapid) - Final 02/03/23 23:00 Nasal Secretion SARS-CoV-2 Antigen (Rapid) - Final D/C Instructions Discharge Diet: No restrictions Discharge Activity: Return to Normal Activity, May Shower and Use Walker Weight Bearing Status: Weight bearing as tolerated Call your doctor if you observe: Fever of 101 or Higher, Inability to urinate, Inability to have a bowel movement, Shortness of breath, Dizziness, Fainting spells, Swelling in the ankles, Chest pain and Uncontrolled pain Additional Instructions: Discharge home alone 02/23/2023, IV ATB through [facility], [facility]. Please Follow Up With: Dr. Oliver When: As scheduled. Meaningful Use Info Meaningful Use Diagnoses (Choose all that apply): None applicable Discharge Plan Admission Admit Date/Time: 02/03/23 21:10 Primary Reason for Your Visit: Debility. Attending Provider: Kevin Candelaria Chi Primary Care Provider: Anurag Dolan Consulting Providers: Gregor Roach Instructions Additional Instructions / Restrictions: Discharge home alone 02/23/2023, IV ATB through [facility]. Discharge Orders/Prescriptions Prescriptions: New oxycodone 5 mg Tablet 5 mg PO Q4H PRN PRN (Reason: Pain Score 4-10) 7 Days Qty: 42 0RF Artificial Tears(cz-iagy-maxh) 1-0.2-0.2 % Drops 2 drp EACH EYE Q1H PRN (Reason: DRY EYES) Qty: 0 0RF potassium chloride [Klor-Con M20] 20 mEq Tablet,Er Particles/Crystals 20 meq PO BIDCM 30 Days Qty: 60 0RF Continued omeprazole 40 mg capsule,delayed release(DR/EC) 40 mg PO DAILY acetaminophen [Tylenol Extra Strength] 500 mg tablet 1,000 mg PO Q6H amlodipine 5 mg tablet 5 mg PO DAILY calcium carbonate [Calcium 600] 600 mg calcium (1,500 mg) tablet 600 mg PO DAILY alfuzosin 10 mg tablet extended release 24 hr 10 mg PO DAILY@1000 Rx Instructions: administer after the same meal each day polyethylene glycol 3350 17 gram Powder In Packet 17 g PO DAILY levothyroxine 112 mcg tablet 112 mcg PO DAILY metoprolol tartrate 25 mg tablet 25 mg PO BID Eliquis 5 mg tablet 5 mg PO BIDCM Discontinued acetylcysteine 600 mg capsule 600 mg PO BID Label Comments: TAKE 1 CAPSULE BY MOUTH TWICE DAILY cholecalciferol (vitamin D3) 25 mcg (1,000 unit) capsule 25 mcg PO DAILY multivitamin with minerals 1 EACH tablet 1 ea PO BREAKFAST glucosamine sulfate [Glucosamine] 500 mg tablet 1,000 mg PO DAILY zinc 50 mg Tablet 50 mg PO DAILY oxycodone 5 mg Tablet 5 mg PO Q4H PRN (Reason: Pain) ceftriaxone 2 gram Piggyback 2 g IV Q24H Rx Instructions: stop date 03/15/23 Referrals / Follow Up: Anurag Dolan MD [Primary Care Provider] - (Please make appt luis after DC as Dr. Dolan will not follow [facility] orders until pt is seen in office - ARABELLA Mejia ) Disposition Disposition (needs filled in before D/C Order can be placed): Home Health Service
[2023-02-16 20:53] VITALS: PULSE 81; RESP 18; O2SAT 97
[2023-02-16 20:58] VITALS: BP 104/70; PULSE 81; RESP 18; TEMP 36.4; O2SAT 97
[2023-02-17 04:57] VITALS: BP 118/79; PULSE 89
[2023-02-17] MEDS: Pantoprazole Sodium 40 MG Tablet PO (04:57)
[2023-02-17] MEDS: Senna/Docusate Sodium 1 Tablet PO ×2 (04:57→17:06)
[2023-02-17] MEDS: Polyethylene Glycol 3350 17 GM PACKET PO (04:57)
[2023-02-17] MEDS: amLODIPine 5 MG Tablet PO (04:57)
[2023-02-17] MEDS: Metoprolol Tartrate 25 MG Tablet PO ×2 (04:57→17:06)
[2023-02-17] MEDS: Levothyroxine 112 MCG Tablet PO (05:00)
[2023-02-17] MEDS: Acetaminophen 500 MG Tablet 1000 MG PO ×3 (06:01→17:05)
[2023-02-17] MEDS: Potassium Chloride Oral Tablet 20 MEQ PO ×2 (08:16→17:05)
[2023-02-17] MEDS: APIXABAN 5 MG TABLET PO ×2 (08:16→17:05)
[2023-02-17] MEDS: Glycerin/Hypromellose/PEG400 15 ml Bottle 2 DRP EACH EYE (14:10)
[2023-02-17 14:33] VITALS: BP 105/69; PULSE 98; RESP 18; TEMP 36.9; O2SAT 94
--- NOTE | 2023-02-17 16:24 | CASEMGMT ---
Social Work SW recevied call from Chaz at [facility] ([phone]) and they are able to accept pt with start of care on 02/24. SW received call from Doreen at [facility] and they are able to accept pt and requested clinical information be sent on Wednesday. Pt updated and agreeable to discharge plan. ARABELLA Lehman
[2023-02-17] MEDS: Tamsulosin HCl 0.4 MG Capsule PO ×2 (17:05)
[2023-02-17 17:06] VITALS: PULSE 68
[2023-02-18] MEDS: Acetaminophen 500 MG Tablet 1000 MG PO ×4 (00:06→21:33)
[2023-02-18 05:58] LABS: Absolute Lymphocyte Count 1.58 X10^3/uL (0.83-4.51); Absolute Neutrophil Count 2.8 X10^3/uL (2.0-7.7); Basophil# 0.04 X10^3/uL; Basophil% 0.7 % (0-1); Eosinophil# 0.71 X10^3/uL; Eosinophils% 11.9 % (0-5); Hematocrit 31.3 % (40-54); Hemoglobin 10.3 g/dL (13.0-16.5); Lymphocyte # 1.58 X10^3/ul (0.83-4.51); Lymphocyte % 26.5 % (19-41); Mean Corp Hgb Conc 32.9 g/dL (32-36); Mean Corpuscular Hgb 31.4 pg (27.0-32.0); Mean Corpuscular Volume 95.4 fL (80-94); Mean Platelet Vol. 8.9 fl (6.2-12.0); Monocyte# 0.78 X10^3/uL; Monocyte% 13.1 % (0-10); NRBC Flagged by Analyzer 0 % (0-5); Neutrophil # 2.84 X10^3/uL (2.7-7.7); Neutrophil % 47.5 % (47-70); Platelet Count 340 K/mm3 (150-450); RBC Distribution Width CV 13.6 % (11.6-14.6); RBC Distribution Width SD 48.4 fl (35.1-43.9); Red Blood Count 3.28 M/mm3 (4.6-6.2)
[2023-02-18 06:37] VITALS: BP 117/70; PULSE 85
[2023-02-18] MEDS: Levothyroxine 112 MCG Tablet PO (06:37)
[2023-02-18] MEDS: Metoprolol Tartrate 25 MG Tablet PO ×2 (06:37→17:12)
[2023-02-18 06:38] LABS: ALB/GLOB Ratio 0.6 RATIO (0.9-2.4); AST(SGOT) 16 U/L (15-37); Alanine Aminotransfer ALT/SGPT 25 U/L (16-61); Albumin, Serum 2.5 g/dL (3.2-5.0); Alkaline Phosphatase 113 U/L (45-117); Anion Gap 4 (5-15); BUN 25 mg/dL (7-18); BUN/Creat Ratio 28.4 RATIO (10-20); Chloride 109 mmol/L (98-107); Creatinine, Serum 0.88 mg/dL (0.70-1.30); EST Glomerular Filtration Rate 88 mL/min (>60); Est Glom Filt Rate - Afr Amer 107 mL/min (>60); Globulin 4.1 g/dL (2.2-4.2); Glucose 102 mg/dL (74-106); Potassium 3.8 mmol/L (3.5-5.1); Protein, Total 6.6 g/dL (6.4-8.2); Sodium Level 140 mmol/L (136-145)
[2023-02-18] MEDS: Senna/Docusate Sodium 1 Tablet PO (06:38)
[2023-02-18] MEDS: Pantoprazole Sodium 40 MG Tablet PO (06:38)
[2023-02-18] MEDS: amLODIPine 5 MG Tablet PO (06:38)
[2023-02-18] MEDS: Glycerin/Hypromellose/PEG400 15 ml Bottle 2 DRP EACH EYE (06:44)
[2023-02-18 07:03] LABS: Erythrocyte Sedimentation Rate 54 mm/hr (0-20)
[2023-02-18] MEDS: APIXABAN 5 MG TABLET PO ×2 (08:08→17:10)
[2023-02-18] MEDS: Potassium Chloride Oral Tablet 20 MEQ PO ×2 (08:09→17:11)
--- NOTE | 2023-02-18 08:22 | NURSING ---
Labs faxed to Dr Ponce.
[2023-02-18] MEDS: 0.9% Saline Lock 10 ML Syringe IV (09:50)
[2023-02-18 10:05] VITALS: PULSE 89; RESP 18; O2SAT 97
--- NOTE | 2023-02-18 11:00 | NURSING ---
CALLED TO GET A PRESCRIPTION FOR PT ANTIBIOTIC FOR WHEN PT GOES HOME. STATED HE WILL WRITE IT TOMORROW..
[2023-02-18 13:57] VITALS: BP 120/74; PULSE 74; RESP 22; TEMP 36.6; O2SAT 96
[2023-02-18 17:12] VITALS: BP 120/74; PULSE 74
[2023-02-19 04:55] VITALS: BP 114/75; PULSE 82
[2023-02-19] MEDS: Metoprolol Tartrate 25 MG Tablet PO ×2 (04:55→17:47)
[2023-02-19] MEDS: amLODIPine 5 MG Tablet PO (04:55)
[2023-02-19] MEDS: Levothyroxine 112 MCG Tablet PO (04:56)
[2023-02-19] MEDS: Acetaminophen 500 MG Tablet 1000 MG PO ×3 (04:56→21:16)
[2023-02-19] MEDS: Pantoprazole Sodium 40 MG Tablet PO (04:56)
[2023-02-19] MEDS: APIXABAN 5 MG TABLET PO ×2 (08:24→17:47)
[2023-02-19] MEDS: Potassium Chloride Oral Tablet 20 MEQ PO ×2 (08:24→17:47)
[2023-02-19] MEDS: Glycerin/Hypromellose/PEG400 15 ml Bottle 2 DRP EACH EYE ×2 (13:14→17:51)
--- NOTE | 2023-02-19 13:55 | CASEMGMT ---
Social Work IV ATB order received from ID Dr. Alvarenga stated a test will be ordered to determine if pt needs continued IV ATB. SW faxed labs and order to [facility] and [facility]. Jackie Escamilla, [employer] DIRECTOR SOCIAL WELFARE
--- NOTE | 2023-02-19 14:06 | NURSING ---
Called insurance company and was connected from them to [employer] for auth for CT scans. Case #[id number], scans approved- authorization #[id number]
--- NOTE | 2023-02-19 14:28 | PCM.PN.ID ---
Physical Exam Narrative Feeling ok, no fever, no n/v/d, no SOB. Still with drainage from L chest tube. Const alert and no apparent distress Resp normal air movement and clear to auscultation bilaterally Cardio regular rate and regular rhythm GI soft to palpation, non-tender and non-distended Skin no rashes or lesions noted ID ID: Route of nutrition/ use of supplements: [] Nutritional Intake: [] IV Site: [] Young Catheter: [] Assessment & Plan Assessment/Plan (1) Metastatic melanoma: (2) Thoracic abscess: PLAN: With SC joint involvement. Now s/p OR 01/28/23 at . Cxs with GBS. On ceftriaxone with stop date 03/12/23. Will order CT chest and neck. Still with fair amount of drain output. Wrote rx for him to cont outpt ceftriaxone with weekly labs. Followup with me or prior ID in 2 weeks. Will follow
[2023-02-19 14:30] VITALS: BP 124/80; PULSE 91; RESP 14; TEMP 36.4; O2SAT 97
[2023-02-19 17:47] VITALS: BP 122/82; PULSE 84
[2023-02-19] MEDS: Senna/Docusate Sodium 1 Tablet PO (17:47)
[2023-02-19] MEDS: Tamsulosin HCl 0.4 MG Capsule PO (17:47)
[2023-02-19 21:00] VITALS: PULSE 85; RESP 16; O2SAT 98
[2023-02-19] MEDS: oxyCODONE 5 MG Tablet PO (21:13)
[2023-02-20 05:26] VITALS: BP 104/73; PULSE 80
[2023-02-20] MEDS: Pantoprazole Sodium 40 MG Tablet PO (05:26)
[2023-02-20] MEDS: Senna/Docusate Sodium 1 Tablet PO ×2 (05:26→17:51)
[2023-02-20] MEDS: Levothyroxine 112 MCG Tablet PO (05:26)
[2023-02-20] MEDS: Acetaminophen 500 MG Tablet 1000 MG PO ×3 (05:26→21:48)
[2023-02-20] MEDS: Metoprolol Tartrate 25 MG Tablet PO ×2 (05:26→17:51)
[2023-02-20] MEDS: Glycerin/Hypromellose/PEG400 15 ml Bottle 2 DRP EACH EYE ×2 (05:27→10:47)
[2023-02-20] MEDS: Potassium Chloride Oral Tablet 20 MEQ PO ×2 (07:59→17:51)
[2023-02-20] MEDS: amLODIPine 5 MG Tablet PO (07:59)
[2023-02-20] MEDS: APIXABAN 5 MG TABLET PO ×2 (07:59→17:51)
[2023-02-20 08:02] VITALS: PULSE 84; RESP 14; O2SAT 98
--- NOTE | 2023-02-20 10:57 | NURSING ---
Addendum entered by Christina Hoffmann 02/20/23 11:20: also sent CT results Original Note: last set of labs on 02/18 faxed at this time to ID Dr Ponce per his requst
--- NOTE | 2023-02-20 11:41 | NURSING ---
dr jasso updated on CT results, wants Dr Roach notified since he ordered them.
[2023-02-20 13:59] VITALS: BP 120/82; PULSE 90; RESP 18; TEMP 36.3; O2SAT 97
[2023-02-20 17:51] VITALS: BP 120/82; PULSE 90
[2023-02-20] MEDS: Tamsulosin HCl 0.4 MG Capsule PO (17:51)
[2023-02-20] MEDS: oxyCODONE 5 MG Tablet PO (21:47)
[2023-02-21 05:52] VITALS: BP 131/82; PULSE 89
[2023-02-21] MEDS: Acetaminophen 500 MG Tablet 1000 MG PO ×3 (05:52→20:32)
[2023-02-21] MEDS: Pantoprazole Sodium 40 MG Tablet PO (05:52)
[2023-02-21] MEDS: Senna/Docusate Sodium 1 Tablet PO ×2 (05:52→17:45)
[2023-02-21] MEDS: Metoprolol Tartrate 25 MG Tablet PO ×2 (05:52→17:45)
[2023-02-21] MEDS: Levothyroxine 112 MCG Tablet PO (05:53)
[2023-02-21] MEDS: 0.9% Saline Lock 10 ML Syringe IV (05:54)
[2023-02-21] MEDS: amLODIPine 5 MG Tablet PO (09:02)
[2023-02-21] MEDS: Potassium Chloride Oral Tablet 20 MEQ PO ×2 (09:02→17:40)
[2023-02-21] MEDS: APIXABAN 5 MG TABLET PO ×2 (09:02→17:43)
--- NOTE | 2023-02-21 10:47 | NURSING ---
0800-pt out at nurses desk c/o of lt chest incision site being more swollen, reddened and painful. pt with no fevers or drng from. sutures intact. garcía drain rehooked higher up on pt gown as nurse was concerned that was irritating from pulling at. will look up surgeons number on chart to see if want to see sooner for f/u.
--- NOTE | 2023-02-21 10:49 | NURSING ---
0830-spoke with brand ambassador promotional model from dr. farah at and told to have nurse take picture of site on his cell phone and text it to him for evaluation text received and recommended cbc with diff and if nothing acutely different then to keep same f/u appt after dc. pt wanting VAD to be accessed before going home and flushed stated, i dont use it but they flush it every month normally to keep it open dr. jasso paged for orders and cbc ordered.
[2023-02-21 11:35] LABS: Absolute Lymphocyte Count 1.72 X10^3/uL (0.83-4.51); Absolute Neutrophil Count 3.1 X10^3/uL (2.0-7.7); Basophil# 0.04 X10^3/uL; Basophil% 0.6 % (0-1); Eosinophil# 0.65 X10^3/uL; Eosinophils% 10.3 % (0-5); Hematocrit 33.3 % (40-54); Hemoglobin 10.9 g/dL (13.0-16.5); Lymphocyte # 1.72 X10^3/ul (0.83-4.51); Lymphocyte % 27.2 % (19-41); Mean Corp Hgb Conc 32.7 g/dL (32-36); Mean Corpuscular Hgb 31.5 pg (27.0-32.0); Mean Corpuscular Volume 96.2 fL (80-94); Mean Platelet Vol. 8.8 fl (6.2-12.0); Monocyte# 0.82 X10^3/uL; NRBC Flagged by Analyzer 0 % (0-5); Neutrophil # 3.08 X10^3/uL (2.7-7.7); Neutrophil % 48.6 % (47-70); Platelet Count 327 K/mm3 (150-450); RBC Distribution Width CV 13.6 % (11.6-14.6); RBC Distribution Width SD 48.1 fl (35.1-43.9); Red Blood Count 3.46 M/mm3 (4.6-6.2); White Blood Count 6.3 K/mm3 (4.4-11.0)
--- NOTE | 2023-02-21 12:28 | NURSING ---
Patient results from CBC reviewed, no drastic elevation of WBC, patient given results. Ok w/ results and ok w/ following up w/ surgeon post discharge on already scheduled day. Patient given tylenol for comfort measures.
[2023-02-21 13:26] VITALS: BP 109/71; PULSE 64; RESP 18; TEMP 36.6; O2SAT 92
[2023-02-21] MEDS: oxyCODONE 5 MG Tablet PO (13:30)
[2023-02-21] MEDS: Glycerin/Hypromellose/PEG400 15 ml Bottle 2 DRP EACH EYE ×2 (13:32→17:43)
[2023-02-21] MEDS: Tamsulosin HCl 0.4 MG Capsule PO (17:44)
[2023-02-21 17:45] VITALS: PULSE 82
--- NOTE | 2023-02-21 19:15 | NURSING ---
vad accessed to rt chest with no blood return noticed and unable to flush. per pt they had hard time before and one time they couldnt get
--- NOTE | 2023-02-21 20:38 | NURSING ---
Requested HS medication at this time
[2023-02-21 21:02] VITALS: PULSE 80; RESP 18; O2SAT 97
[2023-02-22 05:47] VITALS: BP 136/79; PULSE 87
[2023-02-22] MEDS: Levothyroxine 112 MCG Tablet PO (05:47)
[2023-02-22] MEDS: Acetaminophen 500 MG Tablet 1000 MG PO ×3 (05:47→20:51)
[2023-02-22] MEDS: Pantoprazole Sodium 40 MG Tablet PO (05:47)
[2023-02-22] MEDS: Senna/Docusate Sodium 1 Tablet PO (05:47)
[2023-02-22] MEDS: Metoprolol Tartrate 25 MG Tablet PO ×2 (05:47→17:20)
[2023-02-22] MEDS: Potassium Chloride Oral Tablet 20 MEQ PO ×2 (07:48→17:19)
[2023-02-22] MEDS: amLODIPine 5 MG Tablet PO (07:48)
[2023-02-22] MEDS: APIXABAN 5 MG TABLET PO ×2 (07:48→17:19)
[2023-02-22] MEDS: Glycerin/Hypromellose/PEG400 15 ml Bottle 2 DRP EACH EYE ×2 (07:54→17:22)
[2023-02-22] MEDS: 0.9% Saline Lock 10 ML Syringe IV ×2 (10:17→11:30)
--- NOTE | 2023-02-22 11:23 | NURSING ---
Teaching provided regarding PICC line infection assessment and how to flush. Patient reported feeling he would be unable to flush PICC himself unless extension tubing placed to PICC. Reported understanding on how to flush PICC line. This nurse also demonstrated how to prime IV tubing.
--- NOTE | 2023-02-22 12:54 | NURSING ---
Infusion center flushed port this AM and de-accessed.
[2023-02-22 15:17] VITALS: BP 120/75; PULSE 89; RESP 14; TEMP 36.6; O2SAT 95
--- NOTE | 2023-02-22 15:31 | PCM.PN.ID ---
Physical Exam Narrative Feeling ok, no dyspnea, still good drain output, no fever Const alert and no apparent distress Resp normal air movement and clear to auscultation bilaterally Cardio regular rate and regular rhythm GI soft to palpation, non-tender and non-distended Skin no rashes or lesions noted ID ID: Route of nutrition/ use of supplements: [] Nutritional Intake: [] IV Site: [] Young Catheter: [] Assessment & Plan Assessment/Plan (1) Metastatic melanoma: (2) Thoracic abscess: PLAN: With SC joint involvement. Now s/p OR 01/28/23 at . Cxs with GBS. On ceftriaxone with stop date 03/12/23. Repeat CT chest and neck shows ongoing collections. Still with fair amount of drain output. Wrote rx for him to cont outpt ceftriaxone with weekly labs. Followup with me or prior ID in 2 weeks. Sees surgeon later this week. Will follow
--- NOTE | 2023-02-22 16:18 | NURSING ---
Updated patient in room and daughter by phone of staff member that tested covid positive.
[2023-02-22] MEDS: Tamsulosin HCl 0.4 MG Capsule PO (17:19)
[2023-02-22 17:20] VITALS: BP 112/76; PULSE 94
[2023-02-23] MEDS: Acetaminophen 500 MG Tablet 1000 MG PO (06:34)
[2023-02-23 06:35] VITALS: BP 117/75; PULSE 95
[2023-02-23] MEDS: Metoprolol Tartrate 25 MG Tablet PO (06:35)
[2023-02-23] MEDS: Levothyroxine 112 MCG Tablet PO (06:35)
[2023-02-23] MEDS: Pantoprazole Sodium 40 MG Tablet PO (06:35)
[2023-02-23] MEDS: Senna/Docusate Sodium 1 Tablet PO (06:36)
[2023-02-23] MEDS: Glycerin/Hypromellose/PEG400 15 ml Bottle 2 DRP EACH EYE (06:37)
[2023-02-23] MEDS: APIXABAN 5 MG TABLET PO (07:54)
[2023-02-23] MEDS: amLODIPine 5 MG Tablet PO (07:55)
[2023-02-23] MEDS: Potassium Chloride Oral Tablet 20 MEQ PO (07:55)
[2023-02-23] MEDS: 0.9% Saline Lock 10 ML Syringe IV (09:36)
[2023-02-23 09:45] VITALS: PULSE 80; RESP 16; O2SAT 94
--- NOTE | 2023-02-23 10:43 | CASEMGMT ---
Social Work BIMS () and PHQ-9 (02/22) completed for MDS assessment. Jackie Escamilla MSW OCCUPATIONAL HEALTH RN
[2023-02-23 11:00] VITALS: BP 110/70; PULSE 84; RESP 18; TEMP 36.4; O2SAT 94
== END 2023-02-23 11:45 | disposition home health service (06) | DRG 602 ==
PROVIDERS: Admitting Provider Family Medicine Geriatric Medicine; PCP Family Medicine; Visit Provider Family Medicine Geriatric Medicine
DX: L03.313 Cellulitis of chest wall (principal); J86.9 Pyothorax without fistula; C43.9 Malignant melanoma of skin, unspecified; E03.9 Hypothyroidism, unspecified; E78.00 Pure hypercholesterolemia, unspecified; B95.1 Streptococcus, group B, as the cause of diseases classified elsewhere; I48.0 Paroxysmal atrial fibrillation; M06.9 Rheumatoid arthritis, unspecified; I12.9 Hypertensive chronic kidney disease with stage 1 through stage 4 chronic kidney disease, or unspecified chronic kidney disease; N18.9 Chronic kidney disease, unspecified; K21.9 Gastro-esophageal reflux disease without esophagitis; H35.30 Unspecified macular degeneration; E87.6 Hypokalemia; Z87.891 Personal history of nicotine dependence; Z79.01 Long term (current) use of anticoagulants; N40.0 Benign prostatic hyperplasia without lower urinary tract symptoms; Z79.899 Other long term (current) drug therapy; Z79.890 Hormone replacement therapy
CPT/HCPCS: 36415; 80048; 80053; 85025; 85652; 86140; 87426; 87811; 92507; 92524; 94667; 94668; 97110; 97116; 97162; 97166; 97530; 97535; J7050; A4216; J0696

== ENCOUNTER → 2023-02-19 | Outpatient (CLI) | payer MEDICARE, SELFPAY ==
--- NOTE | 2023-02-19 14:42 | CT_ITS ---
INDICATION: Empyema. EXAMINATION: CT CHEST WITH CONTRAST - CT Chest W/ Contrast Injection TECHNIQUE: Helically acquired images were obtained of the chest following IV contrast. A radiation dose optimization technique was used for this scan. IV Contrast dosage and agent: COMPARISON: None. FINDINGS: Mediport catheter right anterior chest wall. There is a left-sided central venous access catheter with its tip extending into the superior vena cava. There are 2 wires projecting in the left anterior chest wall question pacemaker wires. There is soft tissue density adjacent to the left clavicular head which could represent hematoma or phlegmon. Neoplastic disease cannot be excluded. This measures 4.48 x 3.16 cm. LUNGS, PLEURA AND LARGE AIRWAYS: Mild fibrosis anterior segment left upper lobe. Mild fibrosis posterior medial right lower lobe. No pleural effusion or thickening. No pneumothorax. THYROID: No thyroid lesions. HEART AND PERICARDIUM: Heart size is normal. No pericardial effusion. VESSELS: Thoracic aorta is not dilated. No aortic dissection. No obvious central pulmonary embolism although this study was not performed with the pulmonary embolism protocol. MEDIASTINUM AND MEG: AP window lymph node 0.8 x 1.0 cm. Left hilar lymph node 0.7 x 0.7 cm. Right hilar lymph node 1.1 x 1.0 cm. Esophagus is unremarkable. No hiatal hernia. UPPER ABDOMEN: No acute pathology. BONES: Partial fusion anteriorly at T9-10 which could be degenerative or developmental. Moderate degenerative disc disease with mild spondylosis mid and lower thoracic spine. CT/Chest WITH Contrast IMPRESSION: Mediport catheter right anterior chest wall. Soft tissue density left upper chest wall adjacent to the clavicular head. This measures 4.48 x 3.16 cm. This could represent hematoma, phlegmon or neoplastic disease. Pulmonary fibrosis as above. Borderline pathologic size mediastinal and hilar lymph nodes. These could be reactive, metastatic disease or lymphoma cannot be excluded. Correlation is advised. Consider PET/CT if clinically warranted. Degenerative changes of the thoracic spine. Electronically Signed: Kishan Davey MD, [place] at 15:47 EDT ,
--- NOTE | 2023-02-19 14:42 | CT_ITS ---
INDICATION: NECK ABSCESS EXAMINATION: CT NECK WITH CONTRAST - CT Soft Tissue Neck W/ Contrast Injection TECHNIQUE: Helically acquired images were obtained of the neck following IV contrast. A radiation dose optimization technique was used for this scan. IV Contrast dosage and agent: COMPARISON: None. FINDINGS: Skin marker projects at the level of the hyoid bone. In this region there is some mild cutaneous thickening but no evidence of discrete abscess or mass. This may represent dermatitis. However at the base of the neck extending into the upper chest region adjacent to the clavicular head there is a soft tissue density visualized. This measures 6.7 cm transverse by 3.9 cm AP. This appears more prominent than on the CT chest of cirrhosis measurement includes the lower neck region. Soft tissue density surrounds the drainage catheter. On chest CT this density was thought to represent 2 wires. This soft tissue density likely represents phlegmon less likely abscess. Neoplastic disease cannot be excluded. NASOPHARYNX: Unremarkable. SUPRAHYOID NECK: Unremarkable oropharynx, oral cavity, parapharyngeal space, and retropharyngeal space. INFRAHYOID NECK: Unremarkable larynx, hypopharynx, and supraglottis. THYROID: No focal lesions. SALIVARY GLANDS: Unremarkable. LYMPH NODES: No cervical or supraclavicular lymphadenopathy. VASCULAR STRUCTURES: Unremarkable. VISUALIZED PORTIONS OF THE ORBITS, PARANASAL SINUSES, MASTOID AIR CELLS AND SKULL BASE: Unremarkable. BONES: Diffuse degenerative disc disease throughout the cervical spine with severe loss of disc space height C4-T1 with diffuse disc osteophyte. THORACIC INLET: Clear lung apices. CT/Soft Tissue Neck WITH Contrast IMPRESSION: Findings most consistent with phlegmon less likely abscess or neoplastic disease left upper anterior chest wall extending to base of neck. Drainage catheter extends through the central portion of this process. Skin thickening subjacent to the skin marker right-sided neck. This may represent dermatitis. Degenerative changes of the cervical spine. Electronically Signed: Kishan Davey MD, [place] at 15:51 EDT ,
== END | disposition home or self-care (01) ==
LOC: CT 14:33
PROVIDERS: PCP Family Medicine; Visit Provider Family Medicine Geriatric Medicine
DX: J86.9 Pyothorax without fistula (principal); L02.11 Cutaneous abscess of neck
CPT/HCPCS: 70491; 71260; Q9967; A4216

== ENCOUNTER → 2023-03-11 | Outpatient (CLI) | payer MEDICARE, SELFPAY ==
[2023-03-11 11:54] LABS: BUN 21 mg/dL (7-18); Calcium,Total 9.4 mg/dL (8.5-10.1); Chloride 107 mmol/L (98-107); EST Glomerular Filtration Rate 76 mL/min (>60); Est Glom Filt Rate - Afr Amer 92 mL/min (>60); Glucose 82 mg/dL (74-106); Phosphorus 3.2 mg/dL (2.5-4.9); Potassium 4.3 mmol/L (3.5-5.1); Sodium Level 138 mmol/L (136-145)
[2023-03-11 11:58] LABS: PSA,Total- Diagnostic 7.85 ng/mL (0.0-4.0)
[2023-03-11 12:27] LABS: Free T3 1.9 pg/mL (2.18-3.98); T4 Free Direct 0.85 ng/dL (0.76-1.46); Thyroid Stim Hormone (TSH) 2.65 uIU/mL (0.358-3.74)
== END | disposition home or self-care (01) ==
LOC: MEDOUTP 11:05
PROVIDERS: Urology; PCP Family Medicine; Referring Provider Internal Medicine Nephrology; Visit Provider Internal Medicine Nephrology
DX: E03.9 Hypothyroidism, unspecified (principal); C61 Malignant neoplasm of prostate; N18.2 Chronic kidney disease, stage 2 (mild)
CPT/HCPCS: 36592; 80069; 84153; 84439; 84443; 84481; A4216

== ENCOUNTER → 2023-03-23 | Outpatient (CLI) | payer MEDICARE, SELFPAY ==
--- NOTE | 2023-03-23 07:57 | CT_ITS ---
STUDY: CT CHEST WITHOUT CONTRAST REASON FOR EXAM: Male, 83 years old. Abscess OF CHEST. History of squamous cell carcinoma. RADIATION DOSAGE (If Supplied By Facility): CTDIvol = ( 13.94 ) mGy, DLP = ( 480.79 ) mGycm TECHNIQUE: Transaxial imaging was performed without the administration of intravenous contrast material. Multiplanar coronal and sagittal images were reformatted. Individualized dose optimization techniques were used for this CT. COMPARISON: Comparison is made with prior study February 19, 2023. FINDINGS: CHEST A right-sided portacatheter is seen with the tip in the superior vena cava. There is a 5 cm x 6.5 cm soft tissue mass with destruction of the medial portion of the left clavicle. The previously seen on drainage catheter as been removed. Small benign-appearing bilateral axillary lymph nodes. The lungs are normal. There is no demonstrated pleural abnormality. There are calcifications of the coronary arteries. There are multiple small lymph nodes within the mediastinum, which are normal in size and morphology most compatible with reactive lymph hyperplasia. Normal hilar regions. Normal unenhanced pulmonary arteries. There is atherosclerotic calcification of the aortic arch with tortuosity and elongation of the aortic arch and descending thoracic aorta. There are multi-level degenerative changes of the thoracic spine. Heterogeneous appearance of the thoracic vertebrae. Correlation with a bone scan is recommended. There is no demonstrated abnormality of the visualized upper abdomen. CT/Chest without Contrast IMPRESSION: 5 cm x 6.5 cm soft tissue mass with distraction of the medial portion of the left clavicle. A neoplastic process should be ruled out. The remainder of the examination is unchanged. Electronically Signed: Riky Knapp MD at 14:39 EDT ,
== END | disposition home or self-care (01) ==
LOC: CT 07:55
PROVIDERS: PCP Family Medicine; Referring Provider Internal Medicine Infectious Disease; Visit Provider Internal Medicine Infectious Disease
DX: R22.2 Localized swelling, mass and lump, trunk (principal)
CPT/HCPCS: 71250

== ENCOUNTER → 2023-03-29 | Outpatient (CLI) | payer MEDICARE, SELFPAY ==
--- NOTE | 2023-03-29 14:10 | MRI_ITS ---
STUDY: MRI BRAIN WITH AND WITHOUT CONTRAST REASON FOR EXAM: Male, 83 years old. r/o mets; recurrent melanoma TECHNIQUE: Multiplanar multisequence imaging of the brain was performed without and following the administration of intravenous contrast. COMPARISON: 11/26/2022 FINDINGS: The ventricles, cisterns, and sulci are prominent for patients age. There is no restricted diffusion to suggest acute ischemia or infarction. No succeptibility artifict to suggest intracranial hemorrhage or mineralization. Major intracranial signal voids are preserved. Stable high T2 signal changes in the periventricular and deep white matter. There is no midline shift, mass effect, or extra axial fluid collections are seen. No CP angle or IAC mass is seen. The orbits are unremarkable. The sella turcica and craniovertebral junction are within normal limits. The visualized paranasal sinuses are clear. Stable left otomastoiditis changes. No abnormal enhancement is seen. MRI/Brain W/WO Contrast IMPRESSION: Stable changes of volume loss with chronic microvascular vascular ischemia. No acute intracranial findings or evidence of metastatic disease. Electronically Signed: Devin Castro MD at 15:54 EDT ,
== END | disposition home or self-care (01) ==
LOC: MRI 13:54
PROVIDERS: PCP Family Medicine; Referring Provider Nurse Practitioner Family; Visit Provider Nurse Practitioner Family
DX: C77.9 Secondary and unspecified malignant neoplasm of lymph node, unspecified (principal); C43.9 Malignant melanoma of skin, unspecified
CPT/HCPCS: 70553; A9575

== ENCOUNTER → 2023-04-29 | Outpatient (CLI) | payer MEDICARE, SELFPAY ==
--- NOTE | 2023-04-29 13:04 | CT_ITS ---
STUDY: CT CHEST WITHOUT CONTRAST REASON FOR EXAM: Male, 83 years old. Follow-up of left pulmonary abscess. RADIATION DOSAGE (If Supplied By Facility): CTDIvol = ( 13.42 ) mGy, DLP = ( 509.85 ) mGycm TECHNIQUE: Transaxial imaging was performed without the administration of intravenous contrast material. Individualized dose optimization techniques were used for this CT. COMPARISON: Comparison is made with prior study dated March 23, 2023. FINDINGS: CHEST A right-sided florence catheter seen with the tip in the superior vena cava. Persistent 6.4 cm x 3.7 cm soft tissue mass in the left anterior chest wall with destruction of the medial portion of the left clavicle. There is been minimal decrease in size of the mass. The lungs are normal. There is no demonstrated pleural abnormality. There are calcifications of the coronary arteries. Normal mediastinum. Normal hilar regions. Normal unenhanced pulmonary arteries. Normal aorta arch and descending thoracic aorta. There are multi-level degenerative changes of the thoracic spine. There is no demonstrated abnormality of the visualized upper abdomen. CT/Chest without Contrast IMPRESSION: Persistent soft tissue mass in the left anterior chest wall with a structure in the medial portion of the left clavicle. The soft tissue masses minimally decreased in size as compared to prior study. Electronically Signed: Riky Knapp MD at 13:50 EDT ,
== END | disposition home or self-care (01) ==
LOC: CT 13:03
PROVIDERS: PCP Family Medicine; Referring Provider Internal Medicine Infectious Disease; Visit Provider Internal Medicine Infectious Disease
DX: L02.213 Cutaneous abscess of chest wall (principal)
CPT/HCPCS: 71250

== ENCOUNTER 2023-05-06 12:00 | Outpatient (RCR) | payer MEDICARE, SELFPAY ==
--- NOTE | 2023-04-14 10:56 | HP.OTEVAL ---
Patient's Visit Information EMPERATRIZ EPPS is a 83 year old M, referred to Occupational Therapy by SONJA Tam, with a diagnosis of . Date of Evaluation: Occupational Therapist: Caterina Pham, BRICE/Eitan, CHT - Visit Plan TEXT: Thank you for the opportunity to evaluate your patient. For Medicare and Medicare HMO plans, please review the plan of care and approve it. It will need to be FAXED BACK to us at [phone] for Medicare purposes. Please let me know if there are questions or concerns regarding this plan of care. Physician Signature: Date:
--- NOTE | 2023-04-15 16:03 | HP.OTEVAL_ITS ---
Patient's Visit Information EMPERATRIZ EPPS is a 83 year old M, referred to Occupational Therapy by Kena Heredia, ASH-C, with a diagnosis of malignant melanoma. 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 10 days at [facility] due to infection and he also underwent lymph node removal 03/08 lymph node positive-. finished radiant on 04/12/23. pt states he had about a inch and a half off of is clavicle- and developed infection- now still on oral antibiotics-. is here to see therapist about mtg. LE lymphedema following the lymph node removal and radiation. pt reports swelling in groin and pelvis region will travel down his leg but swelling goes down at night and with elevation. pt want to know what more he can do to mtg swelling and his scar at his groin. - Lymphedema (Circumferential Measure) Below knee: right 32cm left 31cm Above knee: right 36cm left 34cm Mid-thigh: right 56cm left 54cm Groin: right 54cm left 52cm Lower Exremity Comments: waist 105 cm. buttocks 103. - Lower Limb Functional Index Lower Extremity Functional Score: 42 - Goals Demonstrate a 20% reduction in edema by d/c: Yes Demonstrate adequate knowledge of self-massage by 2nd week: Yes Demonstrate adequate knowledge skin care/prec by 2nd week: Yes Demonstrate adequate knowledge therapeutic exercises by d/c: Yes Select approp compression garment w/donning/care/wear by d/c: Yes Goal:: pt will demo understanding of scar mtg to decrease scar sensitivity. - Rehabilitation General Assessment: pt demo stage I lymphedema need for skilled OT services 1-2x week for 2 weeks to ed. pt on LE lymphedema- scar mtg. along with compression bike shorts and use of knee high compression socks. Therapist discussed in length beneficial ex., lymph ex, and self manual lymph massage. Today pt demo understanding and agree to POC. Rehabilitation Potential: Good - Anticipated Interventions A/AAROM/PROM, Scar Care, Education re Diagnosis, Education re Life-long lymphedema Management, Education re Skin Care and Precautions, Education re Self Massage Techniques, Education re Correct Donning Tech,Care&Wearing Sched Comp Ga rments, Home Program - Visit Plan Frequency: 1-2x /Week Duration: 2-4 Weeks TEXT: Thank you for the opportunity to evaluate your patient. For Medicare and Medicare HMO plans, please review the plan of care and approve it. It will need to be FAXED BACK to us at [phone] for Medicare purposes. Please let me know if there are questions or concerns regarding this plan of care. Physician Signature: Date:
--- NOTE | 2023-04-22 14:23 | HP.PTEVAL_ITS ---
Patient's Visit Information EMPERATRIZ EPPS is a 83 year old M referred to Physical Therapy by SONJA Tam with a diagnosis of Left shoulder and neck pain. Date of Evaluation: 04/22/23 Physical Therapist: Jack Hull - Visit Plan Frequency: 1-2x /Week Duration: 6 Weeks Plan: Continue with neck and RTC/scapular strengthening. Use manual therapy as needed. - Subjective Pt. is a 83 y.o. male who was diagnosed with melanoma on his right heel last March and then had lymph nodes removed removed from his groin. Pt. has been having infusions and PICC line in his left arm and developed an infection last past December and then in January he had surgery for the infection and had left clavicle resection. His PLOF includes history of left shoulder RTC repair over ten years ago. Pt. is right handed. He also gets occasional neck pain as well. Pt. denies any radicular symptoms down his left arm or chest pain. He has difficulty with reaching overhead, reaching out to the side, lifting things, pushing/pulling, carrying things, occasionally sleeping, and UE bathing. Pt. is retired. His goal with physical therapy is to improve his shoulder strength and decrease pain. Pt. denies any pain currently, at worst 3/10 and describes the pain as dull. His PMH includes A-fib, HBP controlled with medication, prostate cancer, melanoma, left RTC repair, hemorrhoidectomy, lymph nodes removed. Pt. lives alone in a condo. His hobbies include biking and flying. - Objective Posture- Good posture in standing. Palpation- Mild tenderness over left scapular area. Neck AROM- WFL for all motions. Mild pain with all motions. Left shoulder AROM flexion 175 degrees pain, abduction 182 degrees pain, ER 81 degrees, IR 70 degrees. Right shoulder AROM flexion 178 degrees, abduction 183 degrees, ER 80 degrees, IR 65 degrees. Left shoulder strength flexion 4/5, abduction 4/5, ER 3/5, IR 4+/5. Right shoulder strength flexion 5/5, abduction 4+/5, ER 5/5, IR 5/5. Special tests- Painful arc [+], Drop arm [-], Full can /Empty can [+], Barth Les [+], Infraspinatus test [+] - Balance/Special Test Scores Quick DASH Score: 25.0000 - Goals Goal 1:: Pt. will improve left shoulder strength to 4/5 for all motions in order to complete ADL's. Goal Time Frame: 4-6 Weeks Goal 2:: Pt. will be able to lift at least 15# overhead with left shoulder pain < 3/10. Goal Time Frame: 4-6 Weeks Goal 3:: Pt. will be able to reach overhead and out to the side with no left shoulder pain. Goal Time Frame: 4-6 Weeks Goal 4:: Pt. will be able to complete UE bathing with no left shoulder pain. Goal Time Frame: 4-6 Weeks Goal 5:: Pt. will rate left shoulder pain at worst at 3/10 with ADL's. Goal Time Frame: 4-6 Weeks Goal 6:: Pt. will improve Quick Dash score < 20% impairment in order to improve ADL's. Goal Time Frame: 4-6 Weeks - Rehabilitation Potential Physical Therapy Diagnosis: Decreased neck/shoulder strength and pain. Pt. presents at this time with full thickness tear of left RTC and cervicalgia. Rehabilitation Potential: Good - Anticipated Interventions Patient/Client Instruction: Educate patient on: Condition, Plan of Care For the Purpose of:: To decrease pain, To improve ability to perform ADL's, To improve performance and independence with ADL's, To assume or resume ADL's, To improve tolerance to ADL's Therapeutic Exercise to Include: Strength training, Postural training, Active ROM, Scapular Strength/Stabilization Comment: Continue with neck and RTC/scapular strengthening. For the Purpose of:: To decrease pain, To improve ability to perform ADL's, To improve performance and independence with ADL's, To assume or resume ADL's, To improve tolerance to ADL's Functional Training to Include: ADL Training For the Purpose of:: To decrease pain, To increase ROM, To improve ability to perform ADL's, To improve performance and independence with ADL's, To assume or resume ADL's, To improve tolerance to ADL's Manual Therapy Techniques to Include: Mobilization, Soft tissue mobilization For the Purpose of:: To decrease pain, To improve ability to perform ADL's, To improve performance and independence with ADL's, To assume or resume ADL's, To improve tolerance to ADL's Cryotherapy (ice pack, ice massage): Yes For the Purpose of:: To decrease pain, To decrease swelling/inflammation Thank you for the opportunity to evaluate your patient. For Medicare and Medicare HMO plans, please review the plan of care and approve it. It will need to be FAXED BACK to us at [phone] for Medicare purposes. For Medicare only, by signing this I certify the plan of care. Please let me know if there are questions or concerns regarding this plan of care. Physician Signature:_ Date:
== END 2023-05-06 19:00 | disposition home or self-care (01) ==
LOC: PT 12:00
PROVIDERS: PCP Family Medicine; Referring Provider Nurse Practitioner Family; Visit Provider Nurse Practitioner Family
DX: C43.71 Malignant melanoma of right lower limb, including hip (principal); C77.9 Secondary and unspecified malignant neoplasm of lymph node, unspecified; M25.512 Pain in left shoulder; M54.2 Cervicalgia
CPT/HCPCS: 97110; 97162; 97166; 97530

== ENCOUNTER → 2023-05-19 | Outpatient (CLI) | payer MEDICARE, SELFPAY ==
[2023-05-19] VITALS (7 sets, daily range): BP systolic 110–140; BP diastolic 73–90; PULSE 56–64; RESP 13–18; TEMP 36.4–36.6; O2SAT 94–98; BMI 30.9
--- NOTE | 2023-05-19 | IMM_PTH ---
PATIENT: EMPERATRIZ EPPS LOC: CT U#:[id number] AGE/SX: 83/M ROOM: RE05/19/[address]: Dr. Brianna Souza MD : 1940 BED: DIS: 05/19/2023 SPEC #: [id number] RECD: 05/20/23 12:47 STATUS: SHERON REQ #: [id number] ILYA: 05/19/23 00:[address]: Brianna Souza DEPT: IMMUNOHISTOCHEMISTRY RECD BY: Ibeth Smith ENTERED: 05/20/23 12:49 SP TYPE: IMMUNO OTHR DR: Dr. Anurag Dolan MD Tissues: Sternum, NOS Procedures: SMA (add) Jewel Ret (add) CD34 (add) CD45 (add) CK5-6 (add) CK8 (add) MIGUEL (add) KI-67 (add) P53 (add) Vimentin (add) NEUROFIL (add) Pankeratin (initial) P40 (add) CD68 (ADD) S-100 (add) PHYSICIAN & [address] [address] SPECIMEN INFORMATION: Tissue Source: Sternal mass Clinical Info: Sternal mass Specimen Number: [id number] CPT code: 04455, 22913 x14 METHODOLOGY: Deparaffinized sections of prefer/formalin-fixed tissue or PAP/DQ stained slides are incubated with monoclonal/polyclonal antibodies/oligonucleotide probes. Localization is made via biotin free immunoperoxidase method. Appropriate controls are performed and reacted as expected. Results on target cell population are indicated in the following table: RESULTS: ANTIBODY / CLONE RESULT AE1-3 (AE1/AE3/PCK26) negative CK8 (10unipZ47) negative CD45 (RP2/18) positive, rare lymphocytes Vimentin (V9) positive CD34 (QBEnd-10) positive, vessels only CD68 (KP-1) positive Actin (1A4) positive, focal S-100 (4C4.9) negative Neurofil (2F11) negative CALRET (polyclonal) negative CK5-6 (D5 & 1684) negative P40 (BC28) negative MIGUEL (E29) negative P53 (DO-7) negative Ki-67 (30-9) positive, focal These tests were developed and their performance characteristics determined by [facility]. They may not have been cleared or approved by the U.S. Food and Drug Administration. The FDA has determined that such clearance or approval is not necessary. The above immunohistochemical/dualISH markers are ordered and reviewed by the Pathologist. INTERPRETATION: Sternal mass, CT-guided biopsy: Consistent with benign fibrocollagenous tissue. No evidence of malignancy. AM:scott 05/24/2023 Case has been reviewed in consultation with Dr. Bassett who concurs with the above diagnosis. IDC:SJ
--- NOTE | 2023-05-19 | MISC_PTH ---
PATIENT: EMPERATRIZ EPPS LOC: [facility] U#:[id number] AGE/SX: 83/M ROOM: RE05/19/[address]: Dr. Brianna Suoza MD : 1940 BED: DIS: 05/19/2023 SPEC #: [id number] RECD: 05/19/23 12:48 STATUS: SHERON REJanice #: [id number] ILYA: 05/19/23 00:[address]: Brianna Souza DEPT: SURGICAL PATHOLOGY RECD BY: Kilo Ingram ENTERED: 05/19/23 12:50 SP TYPE: [facility] DR: Dr. Anurag Dolan MD Tissues: Sternal region Procedures: Surgery Specimen Level V HEADER OPERATION: CT-guided sternal mass biopsy PRE-OP DIAGNOSIS: Sternal mass TISSUE SUBMITTED: Sternal mass 18-gauge x4 MICROSCOPIC DIAGNOSIS Sternal mass, CT-guided biopsy: Collagenized tissue with degenerative change. Fibrous tissue with mild chronic inflammation, benign histiocytic reaction. No evidence of malignancy. See comment. AM:scott 05/20/2023 COMMENT Immunohistochemistry ([id number]) supports the above diagnosis. Case has been reviewed in consultation with Dr. Bassett who concurs with the above diagnosis. IDC:SJ MICROSCOPIC DESCRIPTION Slides are reviewed. GROSS DESCRIPTION Received is one container labeled with the patient's name and not further designated. The specimen consists of multiple elongated fragments of riojas tissue that in aggregate measure 1.2 x 0.2 x 0.1 cm. The specimen is totally submitted in one cassette. / AM:scott 05/19/2023 TC:5 CPT: 86184
[2023-05-19 08:02] LABS: Absolute Lymphocyte Count 0.89 X10^3/uL (0.83-4.51); Basophil# 0.04 X10^3/uL; Eosinophil# 0.71 X10^3/uL; Eosinophils% 17.5 % (0-5); Hematocrit 39.7 % (40-54); Hemoglobin 12.8 g/dL (13.0-16.5); Lymphocyte # 0.89 X10^3/ul (0.83-4.51); Lymphocyte % 21.9 % (19-41); Mean Corp Hgb Conc 32.2 g/dL (32-36); Mean Corpuscular Hgb 29.9 pg (27.0-32.0); Mean Corpuscular Volume 92.8 fL (80-94); Mean Platelet Vol. 8.8 fl (6.2-12.0); Monocyte# 0.44 X10^3/uL; Monocyte% 10.8 % (0-10); NRBC Flagged by Analyzer 0 % (0-5); Neutrophil # 1.97 X10^3/uL (2.7-7.7); Neutrophil % 48.6 % (47-70); Platelet Count 265 K/mm3 (150-450); RBC Distribution Width CV 13.3 % (11.6-14.6); RBC Distribution Width SD 45.4 fl (35.1-43.9); Red Blood Count 4.28 M/mm3 (4.6-6.2); White Blood Count 4.1 K/mm3 (4.4-11.0)
--- NOTE | 2023-05-19 08:05 | CT_ITS ---
PROCEDURE: CT-guided chest wall mass biopsy. DATE: 05/19/2023 INDICATION: 83-year-old male with left chest wall mass PHYSICIAN: Luc Plummer D.O. MEDICATIONS: 5 cc of 2% lidocaine was administered subcutaneously for local anesthesia. 1 mg of Versed and 50 mcg of fentanyl were utilized for sedation. Sedation start time: 9:05 AM. Sedation stop time: 9:35 AM. BIOPSY NEEDLE: 20 gauge Corvocet biopsy needle RADIATION DOSAGE (if supplied): Total exam DLP: 365.98 FINDINGS: The risks, benefits, and alternatives to the procedure were explained to the patient. The specific risks of bleeding, infection, and pneumothorax were detailed and accepted. Witnessed informed consent was obtained. The patient was placed in a supine position in the CT scanner. An initial side sawyer CT was performed to evaluate for approach of the lesion. A suitable approach was selected. The skin surface was prepared in the usual sterile fashion. 5 cc of local lidocaine was injected utilizing a 25-gauge injection needle. A 19-gauge introducer needle was then advanced into the mass utilizing CT fluoroscopic guidance. After confirmation of needle position within the mass, 4 core biopsy samples were obtained utilizing a 20-gauge Corvocet biopsy needle and sent to pathology for further testing. The needle was then withdrawn.. The patient tolerated the procedure well and remained in stable condition throughout the procedure. There were no immediate complications. The patient was discharged home in stable condition after [address]/Biopsy/Inj or Needle Placement IMPRESSION: Successful CT-guided left chest wall mass biopsy. Electronically Signed: Luc Plummer DO at 13:08 EDT ,
[2023-05-19 08:22] LABS: International Normalized Ratio 1.1; Prothrombin Time (Protime)PT. 13.8 SECONDS (11.7-14.9)
[2023-05-19 08:23] LABS: Partial Thromboplast Time 31.8 Seconds (24.1-36.2)
[2023-05-19] MEDS: fentaNYL 100 MCG/2 ML Ampul IV (09:05)
[2023-05-19] MEDS: Midazolam 2 MG/2 ML Syringe IV (09:05)
[2023-05-19] MEDS: Lidocaine 2% (20 ml mdv) 20 ML Vial INFILT (09:21)
[2023-05-19] MEDS: 0.9% Saline Lock 10 ML Syringe IV (10:20)
== END | disposition home or self-care (01) ==
PROVIDERS: PCP Family Medicine; Referring Provider Internal Medicine Hematology & Oncology; Visit Provider Internal Medicine Hematology & Oncology
DX: R22.2 Localized swelling, mass and lump, trunk (principal); C77.9 Secondary and unspecified malignant neoplasm of lymph node, unspecified; I48.0 Paroxysmal atrial fibrillation; E03.9 Hypothyroidism, unspecified; Z87.891 Personal history of nicotine dependence; Z85.46 Personal history of malignant neoplasm of prostate; Z79.01 Long term (current) use of anticoagulants
CPT/HCPCS: 21550; 36415; 77012; 85025; 85610; 85730; 88305; 88307; 88341; 88342; 99156; 99157; J7050; A4216

== ENCOUNTER → 2023-07-23 | Outpatient (CLI) | payer MEDICARE, SELFPAY ==
--- NOTE | 2023-07-23 08:44 | NM_ITS ---
CLINICAL: 83-year-old male with history of malignant melanoma. WHOLE BODY 99m Tc MDP RADIONUCLIDE BONE SCINTIGRAPHY COMPARISON: Previous whole body bone scintigraphy study dated 07/23/2022 FINDINGS: Following the intravenous administration of 26.7 mCi of 99m Tc MDP, whole body bone images reveal: 1. Newly visualized increased uptake is noted in the left proximal clavicle. 2. Enhanced uptake is redemonstrated in the acromioclavicular and sternoclavicular compartments of both shoulders, the glenohumeral compartment of the left shoulder, the left wrist, the cervical, thoracic and lumbar spine, both knees, the bilateral midfoot and right forefoot. 3. The remaining skeletal structures are scintigraphically unremarkable with normal-appearing renal images and urinary bladder activity identified. NM/Bone Scan Whole Body IMPRESSION: 1. The increase in tracer uptake noted in the left proximal clavicle may represent trauma-fracture. In the setting of malignant melanoma, plain film radiography correlation is recommended. 2. 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 3. Overall compared to the examination dated 07/23/2022, newly identified increased uptake noted in the left proximal clavicle warrants further radiologic investigation. Electronically Signed: Mamadou Blnut, at 10:14 EDT ,
[2023-07-23] MEDS: 0.9% Saline Lock 10 ML Syringe IV (08:58)
== END | disposition home or self-care (01) ==
LOC: NM 08:43
PROVIDERS: PCP Family Medicine; Referring Provider Internal Medicine Hematology & Oncology; Visit Provider Internal Medicine Hematology & Oncology
DX: C43.71 Malignant melanoma of right lower limb, including hip (principal)
CPT/HCPCS: 78306; A9503; A4216

== ENCOUNTER → 2023-07-27 | Outpatient (CLI) | payer MEDICARE, SELFPAY ==
--- NOTE | 2023-07-27 14:52 | CT_ITS ---
STUDY: CT CHEST, ABDOMEN T PELVIS WITH CONTRAST REASON FOR EXAM: Male, 83 years old. RESTAGING METS MELANOMA RADIATION DOSAGE (If Supplied By Facility): CTDIvol = ( 18.20 ) mGy, DLP = ( 1712.93 ) mGycm TECHNIQUE: Transaxial imaging was performed following intravenous administration of IV 100mL Isovue-300. Multiplanar coronal and sagittal images were reformatted. Individualized dose optimization techniques were used for this CT. COMPARISON: 04/29/2023. FINDINGS: CHEST There is a right-sided chest port in place. Previously seen left anterior chest mass at the sternoclavicular articulation is again demonstrated with hypodensity which may indicate neoplasm versus infectious process. Trace bilateral lower lobe bronchiectasis with mild bilateral lower lobe atelectasis. Otherwise normal lung parenchyma with no nodule or mass. There is no demonstrated pleural abnormality. Normal cardiac size with coronary artery calcifications. Normal mediastinum. Normal hilar regions. Normal unenhanced pulmonary arteries. Mild atherosclerosis of aorta with no aneurysm or dissection. Normal enhancement of the pulmonary arteries with no filling defect to suggest pulmonary embolus. Multilevel degenerative disease of the spine. Possible osteopenia. No distinct bony lesion or acute fracture seen. Upper abdominal structures are described in detail in the accompanying CT of the abdomen and pelvis report. ABDOMEN Lung bases as described above. The visualized portions of the heart are within normal limits. Multiple small low-attenuation lesions within the liver, largest averaging approximately 5.4 mm and difficult to characterize. Normal gallbladder and extrahepatic biliary system. Normal spleen. Normal pancreas. Normal bilateral adrenal glands. Mild bilateral perinephric stranding. Right upper renal simple cyst measuring 1.7 cm. Otherwise normal right kidney. Tiny low-attenuation structure measuring 6 mm in the upper pole of the left kidney consistent with a simple cyst. Otherwise normal left kidney. Normal visualized stomach. Normal small intestine. There are multiple colonic diverticula consistent with diverticulosis. The appendix is visualized and appears normal. There is diffuse atherosclerotic calcification of the abdominal aorta with elongation and tortuosity, but without a demonstrated aneurysm. Normal inferior vena cava. Normal retroperitoneum. Normal abdominal wall. Normal osseous structures. PELVIS Normal urinary bladder. Prostate metallic seed implants for the purpose of therapy. Normal visualized small intestine. Normal visualized colon. There is no pelvic fluid. There is no pelvic lymphadenopathy or mass lesion. There is diffuse atherosclerotic calcification of the pelvic arteries. There is a fluid collection at the level of the left anterior groin with thickened wall and mild enhancement measuring 4.9 x 2.2 x 8.0 cm. Normal osseous structures. CT/CT Chest, Abd, Pel w/Contrast IMPRESSION: The left anterior chest mass with hypodensity is unchanged which may indicate inflammatory process/abscess versus neoplasm. Mild bilateral lower lobe atelectasis otherwise no acute cardiopulmonary disease. Right anterior groin fluid collection with thickening of the wall and enhancement raising the concern of abscess measuring 4.9 x 2.2 x 8.0 cm. If indicated, this can be assessed with ultrasound. Indeterminate low-attenuation lesions within the liver, too small to characterize and largest measuring 5.4 mm. Follow-up recommended to evaluate stability. Diverticulosis with no signs of diverticulitis. No bowel obstruction. Electronically Signed: Jayna Cardona, at 20:28 EDT ,
[2023-07-27 15:21] LABS: EGFR FINGERSTICK > 60.0000 mL/min (>60)
[2023-07-27] MEDS: 0.9 % NaCl (Sterile) Posiflush 10 mL IV (15:30)
== END | disposition home or self-care (01) ==
LOC: CT 14:51
PROVIDERS: PCP Family Medicine; Referring Provider Internal Medicine Hematology & Oncology; Visit Provider Internal Medicine Hematology & Oncology
DX: C43.71 Malignant melanoma of right lower limb, including hip (principal)
CPT/HCPCS: 71260; 74177; Q9967; A4216

== ENCOUNTER → 2023-08-10 | Outpatient (CLI) | payer MEDICARE, SELFPAY ==
--- NOTE | 2023-08-10 10:19 | US_ITS ---
STUDY: SUPERFICIAL ULTRASOUND - RIGHT INGUINAL REGION REASON FOR EXAM: Male, 83 years old. Palpable lump, pain TECHNIQUE: A superficial ultrasound was performed with real-time and static chappell-scale imaging. COMPARISON: None. TECHNIQUE: Limited sonographic evaluation of the right inguinal region without and with compression. FINDINGS: There is a well-defined multiseptated fluid collection in the right inguinal region corresponding to the area of concern measuring 5.9 x 4.0 x 1.6 cm. There is no evidence of hyperemia to suspect inflammation, this area is separate from the common femoral artery and vein. There are no associated enlarged or abnormal lymph nodes, but patient reports history of previous surgery or lymph node removal from this area. This collection may be sequela from that procedure. US/Ext Non Vasc Limited/Soft Tiss IMPRESSION: Palpable lump corresponds to a multiseptated fluid collection measuring 5.9 x 4.0 x 1.6 cm, likely sequela from previous surgery to remove lymph nodes from the right inguinal region No sonographic evidence of abscess or hyperemia to suspect this is an acute inflammatory process Electronically Signed: Lopez Alvarado MD at 17:14 EDT ,
== END | disposition home or self-care (01) ==
LOC: US 10:18
PROVIDERS: PCP Family Medicine; Referring Provider Internal Medicine Hematology & Oncology; Visit Provider Internal Medicine Hematology & Oncology
DX: R19.09 Other intra-abdominal and pelvic swelling, mass and lump (principal)
CPT/HCPCS: 76882

== ENCOUNTER → 2023-09-15 | Outpatient (CLI) | payer MEDICARE, SELFPAY ==
[2023-09-15 14:31] LABS: PSA,Total - Annual Screen 5.65 ng/mL (0.00-4.00)
[2023-09-16 08:51] LABS: PSA,Total- Diagnostic 5.65 ng/mL (0.0-4.0)
== END | disposition home or self-care (01) ==
PROVIDERS: PCP Family Medicine; Referring Provider Registered Nurse; Visit Provider Registered Nurse
DX: C61 Malignant neoplasm of prostate (principal); Z12.5 Encounter for screening for malignant neoplasm of prostate
CPT/HCPCS: 36415; 36591; 84153; A4216; G0103

== ENCOUNTER → 2023-10-26 | Outpatient (CLI) | payer MEDICARE, SELFPAY ==
--- NOTE | 2023-10-26 12:57 | CT_ITS ---
STUDY: CT ABDOMEN AND PELVIS WITH CONTRAST REASON FOR EXAM: Male, 83 years old. METS MELANOMA F/U LIVER LESIONS -- IV CONTRAST ONLY RADIATION DOSAGE (If Supplied By Facility): CTDIvol = ( 15.87 ) mGy, DLP = ( 1110.54 ) mGycm TECHNIQUE: Transaxial images were obtained from the dome of the diaphragm to the symphysis pubis without oral contrast. IV 100mL Isovue-370 was administered. Sagittal and coronal images were reconstructed. Individualized dose optimization techniques were used for this CT. COMPARISON: Comparison is made with prior study dated July 27, 2023. FINDINGS: There is a new 1.1 cm x 1.1 cm noncalcified nodule in the left lower lobe abutting the left hemidiaphragm. Coronary artery calcification. Since prior study, there has been a progression of multiple hypodense nodules throughout both the right and left lobes of the liver in keeping with the patient''s history of metastatic deposits. The largest hypodense mass is in the central portion of the right lobe of the liver. This measures 4.5 cm x 2.4 cm. Peripheral enhancement is seen. Normal gallbladder and extrahepatic biliary system. Normal spleen. Normal pancreas. Normal bilateral adrenal glands. Normal right kidney. Normal left kidney. Normal visualized stomach. Normal small intestine. There are multiple colonic diverticula consistent with diverticulosis. The appendix is visualized and appears normal. There is diffuse atherosclerotic calcification of the abdominal aorta and its major visceral branches, without a demonstrated aneurysm. Normal inferior vena cava. Normal retroperitoneum. Normal urinary bladder. Metallic densities are seen within the prostate suggestive of a radiation seeds. Postsurgical changes are seen in the right groin. At the operative site, there is a 3.4 cm x 1.8 cm well-defined fluid collection most likely representing a postoperative seroma. Clinical correlation is recommended. This has decreased slightly as compared to prior study. There are diffuse degenerative changes of the visualized lumbar spine. CT/Abdomen/Pelvis WITH Contrast IMPRESSION: New 1.1 cm x 1.1 cm noncalcified nodule in the left lower lobe abutting the left hemidiaphragm. Progressive hepatic metastasis. Postoperative changes in the right groin as described. Electronically Signed: Riky Knapp MD at 7:57 EST ,
[2023-10-26 13:44] LABS: CREATININE FINGERSTICK < 0.9 mg/dL (0.70-1.30); EGFR FINGERSTICK > 60.0000 mL/min (>60)
== END | disposition home or self-care (01) ==
LOC: CT 12:57
PROVIDERS: PCP Family Medicine; Referring Provider Internal Medicine Hematology & Oncology; Visit Provider Internal Medicine Hematology & Oncology
DX: K76.9 Liver disease, unspecified (principal); C77.9 Secondary and unspecified malignant neoplasm of lymph node, unspecified; C43.71 Malignant melanoma of right lower limb, including hip
CPT/HCPCS: 74177; Q9967

== ENCOUNTER → 2023-11-03 | Outpatient (CLI) | payer MEDICARE, SELFPAY ==
[2023-11-03] VITALS (11 sets, daily range): BP systolic 88–149; BP diastolic 60–91; PULSE 63–72; RESP 14–19; TEMP 36.7; O2SAT 92–99; BMI 31.9
--- NOTE | 2023-11-03 | IMM_PTH ---
PATIENT: EMPERATRIZ EPPS LOC: CT U#:[id number] AGE/SX: 83/M ROOM: RE11/03/[address]: Dr. Brianna Souza MD : 1940 BED: DIS: 11/03/2023 SPEC #: [id number] RECD: 11/03/23 14:12 STATUS: SHERON REQ #: [id number] ILYA: 11/03/23 00:[address]: Brianna Souza DEPT: IMMUNOHISTOCHEMISTRY RECD BY: Ibeth Smith ENTERED: 11/03/23 14:14 SP TYPE: IMMUNO OTHR DR: Dr. Anurag Dolan MD Tissues: Liver, NOS Procedures: CK8 (add) KI-67 (add) P53 (add) Vimentin (add) Pankeratin (initial) MELAN-A (add) S-100 (add) PHYSICIAN & INSTITUTION [place] [id number] SPECIMEN INFORMATION: Tissue Source: Liver Clinical Info: Liver mass Specimen Number: [id number] CPT code: 95953, 33429 x6 METHODOLOGY: Deparaffinized sections of prefer/formalin-fixed tissue or PAP/DQ stained slides are incubated with monoclonal/polyclonal antibodies/oligonucleotide probes. Localization is made via biotin free immunoperoxidase method. Appropriate controls are performed and reacted as expected. Results on target cell population are indicated in the following table: RESULTS: ANTIBODY / CLONE RESULT AE1-3 (AE1/AE3/PCK26) negative CK8 ([id number]) negative Vimentin (V9) positive Melan A (A103) positive S-100 (4C4.9) negative P53 (DO-7) negative (null pattern) Ki-67 (30-9) positive, moderate These tests were developed and their performance characteristics determined by [facility]. They may not have been cleared or approved by the U.[place]. Food and Drug Administration. The FDA has determined that such clearance or approval is not necessary. The above immunohistochemical/dualISH markers are ordered and reviewed by the Pathologist. INTERPRETATION: Liver, CT-guided core biopsy: Metastatic malignant melanoma. NAYLA:scott 11/04/2023
--- NOTE | 2023-11-03 | ASPIGT_PTH ---
PATIENT: EMPERATRIZ EPPS LOC: CT U#:[id number] AGE/SX: 83/M ROOM: RE11/03/[address]: Dr. Brianna Souza MD : 1940 BED: DIS: 11/03/2023 SPEC #: [id number] RECD: 11/03/23 10:49 STATUS: SHERON REJanice #: [id number] ILYA: 11/03/23 00:[address]: Brianna Souza DEPT: SURGICAL PATHOLOGY RECD BY: Daisha Vanegas ENTERED: 11/03/23 10:49 SP TYPE: ASP RAD OTHR DR: Dr. Anurag Dolan MD Tissues: Liver, NOS Procedures: FNA Specimen Adequacy Special Stain Group II Surgery Specimen Level V Imprint (control) HEADER OPERATION: CT-guided core biopsy liver PRE-OP DIAGNOSIS: Liver mass TISSUE SUBMITTED: Liver 18-gauge x5 MICROSCOPIC DIAGNOSIS Liver, CT-guided core biopsy: Metastatic malignant melanoma. See comment. NAYLA:scott 11/04/2023 COMMENT The specimen is evaluated at the time of biopsy by Dr. Bassett. Immediate Evaluation = Malignant cells present. Immunohistochemistry ([id number]) supports the above diagnosis. Molecular studies on the tumor can be performed if clinically indicated. Please notify the laboratory if they are needed. Please make reference to previous specimen ([id number]) right groin lymph node, needle core biopsy with diagnosis of metastatic malignant melanoma. Case has been reviewed in consultation with Dr. Hernandez who concurs with the above diagnosis. IDC:AM MICROSCOPIC DESCRIPTION Slides are reviewed. GROSS DESCRIPTION Received in fixative is one container labeled with the patient's name and designated liver biopsy. The specimen consists of multiple irregular and elongated fragments of riojas tissue that in aggregate measure 1.0 x 0.5 x <0.1 cm. The specimen is totally submitted in one cassette. Two touch imprints are prepared at the time of core biopsy. / AM:scott 11/03/2023 TC:0 CPT: 13286, 55245
--- NOTE | 2023-11-03 08:56 | CT_ITS ---
PROCEDURE: CT DIRECTED CORE LIVER BIOPSY INDICATION: Male, 83 years old. METS MELANOMA RESTAGING PHYSICIAN: Dr. Ra Aparicio CONSENT: Written informed consent was obtained having explained the risks, benefits and alternatives in detail with the patient who accepted the risks and agreed to proceed. Laboratory review and clinical assessment was performed. CONSCIOUS SEDATION PROTOCOL: The Drugs used were: 2 mg Versed, IV., and 50 mcg Fentanyl, IV. The sedation time was: 20 minutes. Conscious sedation was started at 9:59 AM and terminated at 10:19 AM. The conscious sedation protocol was independently monitored. RADIATION DOSAGE (If Supplied By Facility): CTDIvol = ( 25 ) mGy, DLP = ( 661.0 ) mGycm Individualized dose optimization techniques were used for this CT. TECHNIQUE: Using CT image guidance with image documentation, a suitable location in the right lobe of the liver was identified. Using an anterior approach, puncture of the liver was uneventful with an 18-gauge core needle system. 4, 18-gauge core samples were obtained, and submitted in formalin to the pathologist for further assessment. Followup CT scan revealed no distinct sequelae. CT/Biopsy/Inj or Needle Placement IMPRESSION: 1. CT directed core needle biopsy of the liver, using CT image guidance with image documentation as described. 2. Conscious Sedation protocol utilized with independent monitoring. Electronically Signed: Riky Knapp MD at 10:55 EST ,
--- NOTE | 2023-11-03 08:56 | CT_ITS ---
STUDY: CT CHEST WITH CONTRAST REASON FOR EXAM: Male, 83 years old. METS MELANOMA RESTAGING -- IV CONTRAST ONLY RADIATION DOSAGE (If Supplied By Facility): CTDIvol = ( 14.46 ) mGy, DLP = ( 591.84 ) mGycm TECHNIQUE: Transaxial imaging was performed following intravenous administration of IV 100mL Isovue-300. Multiplanar coronal and sagittal images were reformatted. Individualized dose optimization techniques were used for this CT. COMPARISON: Comparison is made with prior study July 27, 2023. FINDINGS: CHEST A right-sided portacatheter is seen with the tip in the superior vena cava. The previously seen left anterior chest mass at the sternoclavicular junction has decreased in size. The lungs are normal. There is no demonstrated pleural abnormality. There are calcifications of the coronary arteries. There are small lymph nodes within the mediastinum, which are normal in size and morphology most compatible with reactive lymph hyperplasia. Normal hilar regions. Normal unenhanced pulmonary arteries. There is atherosclerotic calcification of the aortic arch. Heterogeneous appearance of the visualized thoracic and upper lumbar vertebrae suggests a possible metastasis. Multiple hypodense nodules are seen in both lobes of the liver in keeping with metastatic disease. CT/Chest WITH Contrast IMPRESSION: Diffuse liver metastasis. The previously seen mass in the right anterior chest wall at the level of the left sternoclavicular joint has decreased in size. Electronically Signed: Riky Knapp MD at 10:59 EST ,
[2023-11-03] MEDS: 0.9% Normal Saline (250mL Bag) 250 ML 15 ML IV (09:38)
[2023-11-03] MEDS: Midazolam 2 MG/2 ML Syringe IV (09:59)
[2023-11-03] MEDS: fentaNYL 100 MCG/2 ML Ampul IV (10:01)
[2023-11-03] MEDS: Lidocaine 2% (20 ml mdv) 20 ML Vial INFILT (10:12)
[2023-11-03] MEDS: 0.9 % NaCl (Sterile) Posiflush 10 mL IV (11:30)
[2023-11-03] MEDS: 0.9% Saline Lock 10 ML Syringe IV (11:30)
== END | disposition home or self-care (01) ==
LOC: CT 08:54
PROVIDERS: PCP Family Medicine; Referring Provider Internal Medicine Hematology & Oncology; Visit Provider Internal Medicine Hematology & Oncology
DX: C78.7 Secondary malignant neoplasm of liver and intrahepatic bile duct (principal); C78.00 Secondary malignant neoplasm of unspecified lung; C77.9 Secondary and unspecified malignant neoplasm of lymph node, unspecified; C43.9 Malignant melanoma of skin, unspecified; Z79.01 Long term (current) use of anticoagulants; K76.9 Liver disease, unspecified
CPT/HCPCS: 47000; 71260; 77012; 88172; 88305; 88307; 88313; 88341; 88342; 99156; J7050; Q9967; A4216

== ENCOUNTER → 2023-11-19 | Outpatient (CLI) | payer MEDICARE, SELFPAY ==
--- NOTE | 2023-11-19 07:13 | NM_ITS ---
CLINICAL: 83-year-old male with history of malignant melanoma. WHOLE BODY 99m Tc MDP RADIONUCLIDE BONE SCINTIGRAPHY COMPARISON: Previous whole body bone scintigraphy study dated 07/23/2023 FINDINGS: Following the intravenous administration of 27.0 mCi of 99m Tc MDP, whole body bone images reveal: 1. Increased radiopharmaceutical concentration remains apparent in the left proximal clavicle and caudal aspect of the left sacroiliac joint. 2. Facilitated uptake remains apparent in the mid cervical spine posteriorly on the left and right, the upper and lower thoracic and lower lumbar spine, the right elbow, left hand and wrist, knee articulations bilaterally, both ankles, the right-left mid and forefoot. 3. The remaining skeletal structures are scintigraphically unremarkable with normal-appearing renal images and urinary bladder activity identified. There is calcification of the bilateral costochondral junction. NM/Bone Scan Whole Body IMPRESSION: 1. The increase in radiopharmaceutical concentration identified in the left proximal clavicle and caudal aspect of the left sacroiliac joint may reflect limited osseous metastatic disease. If not previously obtained, correlation with plain film radiography may be of benefit. 2. 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 Electronically Signed: Mamadou Blunt DO at 11:20 EST ,
== END | disposition home or self-care (01) ==
LOC: NM 07:11
PROVIDERS: PCP Family Medicine; Referring Provider Internal Medicine Hematology & Oncology; Visit Provider Internal Medicine Hematology & Oncology
DX: C43.9 Malignant melanoma of skin, unspecified (principal); C78.00 Secondary malignant neoplasm of unspecified lung; C78.7 Secondary malignant neoplasm of liver and intrahepatic bile duct; C77.9 Secondary and unspecified malignant neoplasm of lymph node, unspecified; K76.9 Liver disease, unspecified
CPT/HCPCS: 78306; A9503; A4216

== ENCOUNTER → 2024-02-07 | Outpatient (CLI) | payer MEDICARE, SELFPAY ==
--- NOTE | 2024-02-07 08:47 | NM_ITS ---
CLINICAL: 84-year-old male with history of primary prostate carcinoma. WHOLE BODY 99m Tc MDP RADIONUCLIDE BONE SCINTIGRAPHY COMPARISON: Previous whole body bone scintigraphy study dated 11/19/2023 FINDINGS: Following the intravenous administration of 28.0 mCi of 99m Tc MDP, whole body bone images reveal: 1. Persistent increased tracer uptake is noted in the left proximal clavicle. 2. Enhanced tracer distribution is noted in the acromioclavicular and sternoclavicular compartments of both shoulders, glenohumeral compartment of the left shoulder, the left wrist, the knees bilaterally, the mid cervical spine posteriorly on the left and right, the ninth thoracic vertebra, the right hip involving the inferior acetabulum anteriorly. 3. The remaining skeletal structures are scintigraphically unremarkable with normal-appearing renal images and urinary bladder activity identified. The previously defined left sacroiliac increase in uptake is not apparent on the present evaluation. NM/Bone Scan Whole Body IMPRESSION: 1. The increase in radiopharmaceutical concentration redefined in the left proximal clavicle consistent with trauma-fracture. 2. Degenerative arthritis is currently demonstrated in the bilateral shoulders, the left wrist, both knee articulations, the cervical and thoracic spine, the right hip. 3. There is interim resolution of the prior defined left sacroiliac joint increase in tracer uptake. 4. Overall compared to the previous whole body bone scintigraphy study dated 11/19/2023, there is continued demonstration of diffuse degenerative arthritic change with interim resolution of the previously demonstrated left sacroiliac abnormality. Electronically Signed: Mamadou Blunt DO at 9:24 EDT ,
[2024-02-07] MEDS: 0.9% Saline Lock 10 ML Syringe IV (08:55)
== END | disposition home or self-care (01) ==
LOC: NM 08:47
PROVIDERS: PCP Family Medicine; Referring Provider Internal Medicine Hematology & Oncology; Visit Provider Internal Medicine Hematology & Oncology
DX: C43.71 Malignant melanoma of right lower limb, including hip (principal)
CPT/HCPCS: 78306; A9503

== ENCOUNTER → 2024-02-11 | Outpatient (CLI) | payer MEDICARE, SELFPAY ==
--- NOTE | 2024-02-11 07:58 | CT_ITS ---
STUDY: CT CHEST, ABDOMEN T PELVIS WITH CONTRAST REASON FOR EXAM: Male, 84 years old. F/U METS MELANOMA RADIATION DOSAGE (If Supplied By Facility): CTDIvol = ( 18.81 ) mGy, DLP = ( 1925.30 ) mGycm TECHNIQUE: Transaxial imaging was performed following intravenous administration of IV 100mL Isovue-370. Multiplanar coronal and sagittal images were reformatted. Individualized dose optimization techniques were used for this CT. COMPARISON: Comparison is made with prior study dated November 03, 2023 and July 27, 2023. FINDINGS: CHEST A right-sided portacatheter is seen with the tip in the superior vena cava. Interval decrease in size of the previously seen nodule in the posterolateral aspect of the left lower lobe abutting the minor fissure. There is no demonstrated pleural abnormality. There are calcifications of the coronary arteries. There are multiple small lymph nodes within the mediastinum, which are normal in size and morphology most compatible with reactive lymph hyperplasia. Normal hilar regions. Normal unenhanced pulmonary arteries. There is atherosclerotic calcification of the aortic arch. Stable heterogeneous appearance of the visualized thoracic vertebrae. ABDOMEN Multiple hypodense nodules are seen throughout the liver. These nodules have decreased in size and number as compared to prior examination. Normal gallbladder and extrahepatic biliary system. Normal spleen. There is diffuse atrophy of the pancreas. Normal bilateral adrenal glands. Stable right renal cyst. Normal left kidney. Normal visualized stomach. Normal small intestine. There are multiple colonic diverticula consistent with diverticulosis. The appendix is visualized and appears normal. There is scattered atherosclerotic calcification of the abdominal aorta, without a demonstrated aneurysm. Normal inferior vena cava. Normal retroperitoneum. Residual postoperative changes are seen in the right groin. The previously seen fluid collection has almost completely cleared. There are diffuse degenerative changes of the visualized lumbar spine. Straightening of the normal cervical lordosis. PELVIS Normal urinary bladder. Normal visualized small intestine. Normal visualized colon. There is no pelvic fluid. There is no pelvic lymphadenopathy or mass lesion. Normal visualized pelvic arteries. CT/CT Chest, Abd, Pel w/Contrast IMPRESSION: Interval decrease in size and number of the previously seen perihepatic lesions. Interval decrease in size of the previously seen nodule in the posterior aspect of the lingular segment of the left lower lobe. Electronically Signed: Riky Knapp MD at 13:22 EDT ,
--- OUTSIDE RECORDS SUMMARY | 2024-02-11 08:12 | XMS RPT_ITS | CCD ---
Author Name Unknown Address [address] [place] [address] Organization [facility] Care Team Providers Care Hot Knife Foxing Cutter Name Role Phone Remy Tejeda MD Unavailable Unknown, Referring Provider Unavailable Unav ailable Unavailable Unavailable Gus Dolan Unavailable Gus Dolan Unavailable Charles Bennett Unavailable Unavailable Adolfo Pond Unavailable Unavailable Kiki Walton Unavailable Unavailable Luis F Service - Surg Onc Unavailable Unava ilable María Boggs Unavailable GUS DOLAN MD Primary Care Physician Marcus PT, Shy Unavailable Unavailable Dr. Gus Dolan A Primary Care Unavailable Markus NGUYEN Attending Unavailable MD MARÍA BOGGS Referring Unavailable Dr. Gus Dolan Primary Care Unavailable MD COLLEEN,MPH CHARLES QUINTEROS Attending Un available MD COLLEEN,MPH CHARLES QUINTEROS Attending Un available Dr. Gus Dolan A Primary Care Unavailable MD COLLEEN,MPH CHARLES QUINTEROS Attending Un available Dr. Gus Dolan A Primary Care Unavailable MD COLLEEN,MPH CHARLES QUINTEROS Attending Un available Dr. Gus Dolan Primary Care Unavailable Dr. Gus Dolan A Primary Care Unavailable MD COLLEEN,MPH CHARLES QUINTEROS Attending Un available MD COLLEEN,MPH CHARLES QUINTEROS Attending Un available Dr. Gus Dolan Primary Care Unavailable MD COLLEEN,MPH CHARLES QUINTEROS Attending Un available Dr. Gus Dolan A Primary Care Unavailable MD COLLEEN,MPH CHARLES QUINTEROS Attending Un available Dr. Gus Dolan Primary Care Unavailable Dr. Gus Dolan Primary Care Unavailable Patient, Unavailable Referring Unavailable MD MARÍA BOGGS Admitting Unavailable MD MARÍA BOGGS Attending Unavailable Dr. Gus Dolan Referring Unavailable Dr. Gus Dolan A Primary Care Unavailable MD MARÍA BOGGS Attending Unavailable Dr. Gus Dolan Primary Care Unavailable MD MARÍA BOGGS Attending Unavailable MD COLLEEN,MPH CHARLES QUINTEROS Referring Un available MD COLLEEN,MPH CHARLES QUINTEROS Admitting Un available MD COLLEEN,MPH CHARLES QUINTEROS Attending Un available Dr. Gus Dolan Primary Care Unavailable Gus Dolan Primary Care Provider [phone] Aaron Baez MD Unavailable MAGDALENO ANDREW, GUS A Primary Care Unavailable TETO ANDREW, DR CHUCK Rogers Attending Unavailab Elma ANDREW, CHARLES Hubbard Attending Unavailable MAGDALENO ANDREW, GUS A Primary Care Unavailable MAGDALENO ANDREW, GUS A Primary Care Unavailable MAGDALENO ANDREW, GUS Rogers Attending Unavailable GILMAR ANDREW, DR MELANIE Ugalde Attending Tony DOLAN MD, GUS A Primary Care Unavailable TETO ANDREW, DR CHUCK Rogers Attending Unavailab Carrillo ANDREW, GUS A Primary Care Unavailable TETO ANDREW, DR CHUCK Rogers Attending Unavailab Carrillo ANDREW, GUS A Primary Care Unavailable GILMAR ANDREW, DR MELANIE Ugalde Attending Tony DOLAN MD, GUS A Primary Care Unavailable TETO ANDREW, DR CHUCK Rogers Attending Unavailab Carrillo ANDREW, GUS A Primary Care Unavailable KILO DOLAN Attending Unavailable GUS DOLAN Primary Care Unavailable STEPHANIE ARIAS Attending Unavailable AARON BAEZ Referring Unavailable GUS DOLAN Primary Care Unavailable Allergies Allergy Classification Reported Allergen(s) Allergy Type Date of Onset Reaction(s) Facility (3 sources) No Alert Propensity to adverse reactions to drug 1 [facility] (2 sources) pembrolizumab Drug Allergy 2 Itching [facility] Medications Current Medications Medication Drug Class(es) Dates Sig (Normalized) Sig (Original) acetaminophen 325 mg oral tablet (18 sources) Start: 01-26-2023 take 2 tablets by mouth every six hours acetaminophen 325 mg oral tablet ; 2 tab(s) orally every 6 hours Quantity: 0 Refills: 0 Ordered: 24-Dec-2022 Aspen Benton Start: 24-Dec-2022 Generic Substitution Allowed Completed/Discontinued Medications Medication Drug Class(es) Dates Sig (Normalized) Sig (Original) acetaminophen 325 mg / oxyCODONE hydrochloride 5 mg oral tablet (11 sources) Opioid Agonist Start: 05-06-2021 take 1 tablet by mouth every six hours as needed oxyCODONE-Acetam inophen 5-325 MG Oral Tablet TAKE 1 TABLET EVERY 6 HOURS NEEDED. Quantity: 20 Refills: 0 Ordered: 06-May-2021 Charles Bennett MPH Start : 06-May-2021 Active 24 hr alfuzosin hydrochloride 10 mg extended release oral tablet (9 sources) alpha-Adrenergic Ryder Start: 08-18-2022 take 1 tablet by mouth once daily Alfuzosin HCl ER 10 MG Oral Tablet Extended Release 24 Hour take 1 tablet by mouth once daily Quantity: 30 Refills: 0 Ordered: 30-Nov-2022 DO Start : 18-Aug-2022 Active amLODIPine 5 mg oral tablet (18 sources) Dihydropyridine Calcium Channel Ryder Start: 10-07-2021 take 1 tablet by mouth once daily amLODIPine Besylate 5 MG Oral Tablet TAKE 1 TABLET DAILY. Quantity: 0 Refills: 0 Ordered: 07-Oct-2021 DO Start : 07-Oct-2021 Active Problems Active Problems Problem Classification Problem Date Documented Date Episodic/Chronic Bacterial infection; unspecified site (2 sources) Streptococcus, group A, as the cause of diseases classified elsewhere; Translations: [Streptococcus, group B, as the cause of diseases classified elsewhere] Onset: 02-03-2023 Episodic Cancer of prostate (2 sources) Carcinoma of prostate; Translations: [Malignant neoplasm of prostate] Onset: 05-05-2023 05-05-2023 Chronic Cancer of prostate (1 source) Personal history of malignant neoplasm of prostate; Translations: [Personal history of malignant neoplasm of prostate] Onset: 02-03-2023 Episodic Cardiac dysrhythmias (15 sources) Paroxysmal atrial fibrillation; Translations: [Paroxysmal atrial fibrillation] Onset: 02-03-2023 01-27-2023 Chronic Chronic kidney disease (2 sources) Chronic kidney disease stage 2; Translations: [Chronic kidney disease, stage 2 (mild)] Onset: 05-05-2023 05-05-2023 Chronic Complications of surgical procedures or medical care (4 sources) Postoperative seroma; Translations: [Seroma complicating a procedure] Onset: 03-05-2023 Episodic Deficiency and other anemia (2 sources) Deficiency and other anemia 02-01-2023 Disorders of lipid metabolism (1 source) Hyperlipidemia, unspecified; Translations: [Hyperlipidemia, unspecified] Onset: 02-03-2023 Chronic Esophageal disorders (3 sources) Gastro-esophageal reflux disease without esophagitis; Translations: [Gastroesophageal reflux disease] Onset: 02-03-2023 05-05-2023 Chronic Essential hypertension (1 source) Essential (primary) hypertension; Translations: [Essential (primary) hypertension] Onset: 02-03-2023 Chronic Heart valve disorders (2 sources) Mitral valve regurgitation; Translations: [Nonrheumatic mitral (valve) insufficiency] Onset: 09-28-2022 05-05-2023 Chronic Hyperplasia of prostate (2 sources) Benign prostatic hyperplasia; Translations: [Benign prostatic hyperplasia without lower urinary tract symptoms] Onset: 05-25-2022 05-05-2023 Chronic Immunizations and screening for infectious disease (2 sources) Contact with or exposure to other viral diseases Onset: 05-26-2021 05-26-2021 Episodic Infective arthritis and osteomyelitis (except that caused by tuberculosis or sexually transmitted disease) (2 sources) Infective arthritis; Translations: [Pyogenic arthritis, shoulder region] Onset: 02-03-2023 01-28-2023 Episodic Melanomas of skin (20 sources) Malignant melanoma of heel; Translations: [Malignant melanoma of skin of lower limb, including hip] Onset: 06-02-2022 Chronic Other aftercare (1 source) [employer] customer service (current) use of anticoagulants; Translations: [intermodal customer service (current) use of anticoagulants] Onset: 02-03-2023 Episodic Other aftercare (1 source) [employer] customer service (current) use of systemic steroids; Translations: [intermodal customer service (current) use of systemic steroids] Onset: 02-03-2023 Episodic Other connective tissue disease (1 source) Disorder of rotator cuff; Translations: [Unspecified rotator cuff tear or rupture of right shoulder, not specified as traumatic] Onset: 07-25-2018 07-25-2018 Episodic Other connective tissue disease (2 sources) Seroma due to trauma; Translations: [Post-traumatic seroma] 05-26-2021 Episodic Other lower respiratory disease (1 source) Abscess of lung without pneumonia; Translations: [Abscess of lung without pneumonia] Onset: 02-03-2023 Episodic Other non-epithelial cancer of skin (1 source) Personal history of other malignant neoplasm of skin; Translations: [Personal history of other malignant neoplasm of skin] Onset: 12-24-2022 Episodic Other skin disorders (2 sources) Disorder of the skin and subcutaneous tissue, unspecified; Translations: [Disorder of the skin and subcutaneous tissue, unspecified] Onset: 12-24-2022 Episodic Residual codes; unclassified (3 sources) No current problems or disability; Translations: [Other specified conditions influencing health status] Onset: 05-06-2021 Episodic Residual codes; unclassified (1 source) Other specified postprocedural states; Translations: [Other specified postprocedural states] Onset: 02-25-2023 Episodic Retinal detachments; defects; vascular occlusion; and retinopathy (2 sources) Degenerative disorder of macula ; Translations: [Unspecified macular degeneration] Onset: 05-05-2023 05-05-2023 Chronic Rheumatoid arthritis and related disease (3 sources) Rheumatoid arthritis, unspecified; Translations: [Rheumatoid arthritis] Onset: 02-03-2023 05-05-2023 Chronic Screening and history of mental health and substance abuse codes (1 source) Personal history of nicotine dependence; Translations: [Personal history of nicotine dependence] Onset: 12-24-2022 Episodic Secondary malignancies (4 sources) 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; Translations: [Sec and unsp malig neoplasm of inguinal and lower limb nodes] Onset: 12-23-2022 Chronic Secondary malignancies (2 sources) Regional lymph node metastasis present ; Translations: [Secondary and unspecified malignant neoplasm of lymph node, unspecified] Onset: 04-13-2023 05-05-2023 Chronic Thyroid disorders (3 sources) Hypothyroidism, unspecified; Translations: [Unspecified acquired hypothyroidism] Onset: 02-03-2023 05-05-2023 Chronic Unclassified (4 sources) TRAUMATIC SEROMA OF THIGH, INITIAL ENCOUNTER T79.2XXA 05-24-2021 Past or Other Problems Problem Classification Problem Date Documented Da te Episodic/Chronic Abdominal hernia (2 sources) Umbilical hernia; Translations: [Umbilical hernia without obstruction or gangrene] Onset: 01-28-2015 05-05-2023 Episodic Deficiency and other anemia (4 sources) Iron deficiency anemia; Translations: [Iron deficiency anemia, unspecified] Onset: 05-05-2023 02-01-2023 Episodic Lymphadenitis (3 sources) Localized enlarged lymph nodes; Translations: [Inguinal lymphadenopathy] Onset: 11-10-2022 05-05-2023 Episodic Other aftercare (2 sources) senior living (current) use of antibiotics; Translations: [intermodal customer service (current) use of antibiotics] Onset: 03-08-2023 Episodic Other aftercare (2 sources) [employer] customer service (current) use of non-steroidal anti-inflammatories (NSAID); Translations: [inter[employer] customer service (current) use of non-steroidal anti-inflammatories (NSAID)] Onset: 03-08-2023 Episodic Other aftercare (2 sources) Encounter for adjustment and management of vascular access device; Translations: [Encounter for adjustment and management of vascular access device] Onset: 03-08-2023 Episodic Other connective tissue disease (2 sources) Contusion of thigh; Translations: [Post-traumatic seroma] Resolved: 05-24-2021 05-24-2021 Episodic Other nervous system disorders (2 sources) Melendrez's palsy; 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] Onset: 05-05-2023 05-05-2023 Episodic Other screening for suspected conditions (not mental disorders or infectious disease) (2 sources) Encounter for screening for other metabolic disorders; Translations: [Encounter for screening for other metabolic disorders] Onset: 03-01-2023 Episodic Residual codes; unclassified (2 sources) Other general symptoms and signs; Translations: [Other general symptoms and signs] Onset: 03-01-2023 Episodic Skin and subcutaneous tissue infections (18 sources) Cellulitis; Translations: [Cellulitis and abscess of unspecified sites] Onset: 02-25-2023 05-24-2021 Episodic Unclassified (1 source) Problem Unclassified (2 sources) POST OP INFECTION 05-24-2021 Results Test Name Value Interpretation Reference Range Facil ity Vital Signs Date Time Vital Sign Value Performing Clinician Facility 01-19-2024 09:01-0500 Body mass index (BMI) [Ratio] 31.57 kg/m2 Kilo Dolna MD Work Phone: [facility] [employer] 01-19-2024 09:01-0500 Body weight 90.08 kg Kilo Dolan MD Work Phone: [facility] [employer] 01-19-2024 09:01-0500 Diastolic blood pressure 86 mm[Hg] Kilo Dolan MD Work Phone: [facility] [employer] 01-19-2024 09:01-0500 Heart rate 61 /min Kilo Dolan MD Work Phone: [facility] [employer] 01-19-2024 09:01-0500 SaO2% (BldA) [Mass fraction] 97 % Kilo Dolan MD Work Phone: [facility] [employer] 01-19-2024 09:01-0500 Systolic blood pressure 110 mm[Hg] Kilo Dolan MD Work Phone: [facility] [employer] 05-05-2023 10:20-0400 Body mass index (BMI) [Ratio] 31.03 kg/m2 Stephanie O'Shell TEACHER ADVISOR - FILTER PRESS OPERATOR Work Phone: [facility] [employer] 05-05-2023 10:20-0400 Body weight 88.54 kg Stephanie O'Shell TEACHER ADVISOR - FILTER PRESS OPERATOR Work Phone: [facility] [employer] 05-05-2023 10:20-0400 Diastolic blood pressure 86 mm[Hg] Stephanie O'Shell TEACHER ADVISOR - FILTER PRESS OPERATOR Work Phone: [facility] [employer] 05-05-2023 10:20-0400 Heart rate 66 /min Stephanie O'Shell TEACHER ADVISOR - FILTER PRESS OPERATOR Work Phone: [facility] [employer] 05-05-2023 10:20-0400 SaO2% (BldA) [Mass fraction] 98 % Stephanie O'Shell TEACHER ADVISOR - FILTER PRESS OPERATOR Work Phone: [facility] [employer] 05-05-2023 10:20-0400 Systolic blood pressure 130 mm[Hg] Stephanie O'Shell TEACHER ADVISOR - FILTER PRESS OPERATOR Work Phone: [facility] [employer] 03-12-2023 10:40-0400 Body mass index (BMI) [Ratio] 31.99 kg/m2 Gus Sue [employer] Work Phone: [facility] DO Work Phone: 03-12-2023 10:40-0400 Body surface area Derived from formula 1.95 m2 Gus A [employer] Work Phone: [facility] [address] DO Work Phone: 03-12-2023 10:40-0400 Body temperature 97.9 [degF] Gus Sue [employer] Work Phone: [facility] [address] DO Work Phone: 03-12-2023 10:40-0400 Body weight 87.2 kg Gus A [employer] Work Phone: [facility] [address] DO Work Phone: 03-12-2023 10:40-0400 Diastolic blood pressure 80 mm[Hg] Gus Sue [employer] Work Phone: [facility] [address] DO Work Phone: 03-12-2023 10:40-0400 Heart rate 73 /min Gus Sue [employer] Work Phone: [facility] [address] DO Work Phone: 03-12-2023 10:40-0400 Respiratory rate 18 /min Gus Sue [employer] Work Phone: [facility] [address] DO Work Phone: 03-12-2023 10:40-0400 SaO2% (BldA) [Mass fraction] 97 % Gus A [employer] Work Phone: [facility] [address] DO Work Phone: 03-12-2023 10:40-0400 Systolic blood pressure 121 mm[Hg] Gus Sue [employer] Work Phone: [facility] DO Work Phone: 03-12-2023 10:40-0400 0 1 Gus Dolan Work Phone: [facility] Burnette DO Work Phone: Encounters Encounter Date Encounter Type Care Provider Facility Start: 01-19-2024 End: 01-19-2024 ambulatory KILO DOLAN [facility] Start: 01-19-2024 End: 01-19-2024 Office outpatient visit 25 minutes Kilo Dolan MD Work Phone: [facility] Procedures Date Procedure Procedure Detail Performing Clinician Start: 01-19-2024 Ecg routine ecg w/le ast 12 lds trcg only w/o i&r Kilo Dolan MD Work Phone: Start: 05-05-2023 Ecg routine ecg w/le ast 12 lds trcg only w/o i&r Kilo Dolan MD Work Phone: Start: 01-27-[address] Xuan Dolan Plan of Treatment Date Care Activity Detail Author Start: 11-30-2023 End: 11-30-2023 Patient encounter procedure 11/30/2023 1:00 PM EST Office Visit [facility] [address] [place] [address] Kilo Dolan MD [address] [place] [address] [phone] [facility] Start: 07-30-2023 COVID-19 Vaccine ( season) COVID-19 Vaccine ( season) [facility] Start: 07-30-2023 Influenza vaccination Influenza Vacc ine (#1) [facility] Start: 02-25-2023 [facility] Start: 01-08-2023 POV, Provider: Charles Bennett, Status: Pen, Time: 1:30 PM POV, Provider: Charles Bennett, Status: Pen, Time: 1:30 [facility] Work Phone: Start: 12-23-2022 [facility] Provider: Charles Bennett, Status: Pen, Time: 11:15 AM [facility], Provider: Charles Bennett, Status: Pen, Time: 11:15 AM [facility] Work Phone: Start: 11-10-2022 FUV, Provider: Charles Bennett, Status: Pen, Time: 11:00 AM [facility]UV, Provider: Charles Bennett, Status: Pen, Time: 11:00 AM [facility] Work Phone: Start: 05-12-2022 FUV, Provider: Charles Bennett, Status: Pen, Time: 10:30 AM FUV, Provider: Charles Bennett, Status: Pen, Time: 10:30 AM TU-Bqxtzay-Djbge Main Work Phone: Start: 01-13-2022 FUV, Provider: Charles Bennett, Status: Pen, Time: 10:30 AM FUV, Provider: Charles Bennett, Status: Pen, Time: 10:30 AM [facility] [address] Work Phone: Start: 12-05-2021 COVID-19 Vaccine (5 - Booster for Moderna series) COVID-19 Vaccine (5 - Booster for Moderna series) [facility] Start: 09-16-2021 FUV, Provider: Charles Bennett, Status: Pen, Time: 11:00 AM FUV, Provider: Charles Bennett, Status: Pen, Time: 11:00 AM JV-Lyxbxva-Iklja Main Work Phone: Start: 06-03-2021 Patient encounter procedure [facility] Start: 05-27-2021 POV, Provider: Charles Bennett, Status: Pen, Time: 9:30 AM POV, Provider: Charles Bennett, Status: Pen, Time: 9:30 AM AX-Qgjvpii-Pnxypmqb 150 Work Phone: Start: 05-24-2021 Functional Risk Scre en Request for COMPENSATION CONSULTING MANAGER Eval/Tx [facility] Functional Risk Screen Request for COMPENSATION CONSULTING MANAGER Eval/Tx [facility] Start: :47 Request Comments: Order entered from Admission Screens. [facility] Immunizations Immunization Date Immunization Notes Care Provider Rufina yesistephany 11-03-2022 zoster vaccine recombinant Gus A [employer] Work Phone: [facility] Work Phone: 09-11-2022 Fluzone High-Dose Quadrivalent 0.7 ML Intramuscular Suspension Prefilled Syringe Gus A [employer] Work Phone: [facility] Work Phone: 09-11-2022 zoster vaccine recombinant Gus A [employer] Work Phone: [facility] Work Phone: 09-11-2022 influenza virus vaccine, unspecified formulation Kilo Dolan MD Work Phone: [facility] 10-10-2021 Moderna COVID-19 Vaccine 100 MCG/0.5ML Intramuscular Suspension Gus A [employer] Work Phone: [facility] Work Phone: 08-26-2021 Fluzone High-Dose Quadrivalent 0.7 ML Intramuscular Suspension Prefilled Syringe Gus A [employer] Work Phone: [facility] Work Phone: 02-19-2021 COVID-19, mRNA, LNP- S, PF, 100 mcg or 50 mcg dose; Translations: [Moderna COVID-19 Vaccine] DR MELANIE SCHAFER MD [facility] Vaccine [facility] 01-22-2021 COVID-19, mRNA, LNP- S, PF, 100 mcg or 50 mcg dose; Translations: [Moderna COVID-19 Vaccine] DR MELANIE SCHAFER MD [facility] Vaccine [facility] 08-26-2020 Fluzone High-Dose Quadrivalent 0.7 ML Intramuscular Suspension Prefilled Syringe Gus A [employer] Work Phone: [facility] Work Phone: 08-22-2019 influenza, high dose seasonal, preservative-free Gus Sue Dolan Work Phone: [facility] Work Phone: 09-06-2018 influenza, high dose seasonal, preservative-free Gus Dolan Work Phone: [facility] Work Phone: 09-06-2018 pneumococcal conjuga te vaccine, 13 valent Gus A Magdaleno Work Phone: [facility] Work Phone: 09-30-2017 pneumococcal conjuga te vaccine, 13 valent Gus Dolan Work Phone: LF[facility]dmbvx[facility] Work Phone: 09-06-2017 influenza, high dose seasonal, preservative-free Gus Sue Dolan Work Phone: [facility] Work Phone: 10-01-2015 influenza, high dose seasonal, preservative-free Gus Dolan Work Phone: CE[facility] Work Phone: 01-19-2014 zoster vaccine, live Gus Dolan Work Phone: RX[facility]ghtmpt[facility] Work Phone: 10-18-2007 influenza virus vaccine, whole virus Gus Dolan Work Phone: CJ[facility]Mscbtmz[facility]Spq[facility] Work Phone: 1940 pneumococcal conjuga te vaccine, 7 valent Adolfo Pond Dept[facility] of [facility]atology No information available. [place] [facility] Work Phone: Payers Date Payer Category Payer Medicare [id number] 2021 Medicare [id number] 2021 Medicare [employer] SECURE [id number] 2021-Present [address] [place] [address] Medicare HMO [id number] 1941 Unknown [id number] [id number] 1941 Unknown [id number] [id number] 1941 Unknown [id number] [id number] 1941 Unknown [id number] 2.16.840.1.084877.3.579.2.356 1941 Unknown [id number] 2.16.840.1.481813.3.579.2.356 1941 Unknown [id number] 2.16.840.1.079661.3.579.2.356 1941 Unknown [id number] 2.16.840.1.322204.3.579.2.356 1941 Unknown [id number] 2.16.840.1.163572.3.579.2.356 1941 Unknown [id number] 2.16.840.1.900610.3.579.2.356 1941 Unknown [id number] 2.16.840.1.915859.3.579.2.356 1941 Unknown [id number] 2.16.840.1.283708.3.579.2.356 1941 Unknown [id number] 2.16.840.1.184502.3.579.2.356 1941 Unknown [id number] 2.16.840.1.584732.3.579.2.356 1941 Unknown [id number] 2.16.840.1.327314.3.579.2.627 1941 Unknown [id number] 2.16.840.1.413921.3.579.2.627 1941 Unknown [id number] 2.16.840.1.025336.3.579.2.627 1941 Unknown [id number] 2.16.840.1.984029.3.579.2.627 1941 Unknown [id number] [id number] 1941 Unknown [id number] [id number] Unknown Social History Date Type Detail Facility Start: 07-25-2018 End: 07-25-2018 Assertion Unknown if ever smoked [facility] Work Phone: Start: 1940 Sex Assigned At Male [facility] Start: 05-05-[address] [facility] Ex-smoker [facility] History of tobacco use Current smoker [facility] History of tobacco use Cigarette Smoker [facility] Start: 05-05-2023 Tobacco use and exposure Smokeless tobacco non-user [facility] Start: 05-05-2023 Alcohol intake Current drinke r of alcohol (finding) [facility] Start: 05-05-2023 Tobacco Comment Very rarely smoked S [facility] Start: 05-05-2023 Alcohol Comment no more than o nce a month [facility] Start: 1940 Sex Assigned At Not on file [facility] Start: 05-05-2023 Gender identity Not on file [facility] Start: 04-25-2023 End: 05-05-2023 Exposure to SARS-CoV-2 (event) Not sure [facility] Start: 05-05-2023 History of Social function [facility] [facility] Date Patient Goal Desired Activity /State Functional Status Date Assessment Result Facility Functional observable [facility] Mental Status Date Assessment Result Facility 01-29-2023 Cognitive functions 30-Jan-20 239:02 [facility] 05-26-2021 Cognitive functi ons [id number] [facility] Clinical Notes 03-04-2021 to 01-19-2024 Kilo Dolan MD - 01/19/2024 9:00 AM ESTAssessment & Plan Note - Stephanie Arias APRN - [facility] - 05/05/2023 11:01 AM Parris Arias APRN - [facility] - 05/05/2023 10:30 AM EDTPatient Instructions<item> Note Date & Type Note Facility 01-19-2024 History of Present illness Narrative [facility] Cardiology Note Chief Complaint: Chief Complaint Patient presents with 6 Month Follow-up History of Present Illness: Emperatriz Epps is a 84 y.o. male presenting for follow-up of PVCs atrial fibrillation and nocturnal bradycardia. From a cardiac standpoint he is feeling fine. He denies any significant palpitation. He had an awareness of the PVCs there were to 10% burden. There is no lightheadedness presyncope or syncope. Energy level is good. He is maintaining a beta-ryder not sure which 1 at low-dose. We reviewed again his Holter monitor demonstrating type I second-degree AV block at night. Past Medical History: Past Medical History: Diagnosis Date Melendrez's palsy BPH (benign prostatic hyperplasia) CKD (chronic kidney disease) stage 3 ETOH abuse GERD (gastroesophageal reflux disease) HTN (hypertension) Hypercholesteremia Hypothyroid Melanoma (HCC) right heel OA (osteoarthritis) of knee PAF (paroxysmal atrial fibrillation) ([facility]/HCC) (HCC) Past Surgical History Past Surgical History: Procedure Laterality Date HEMORRHOID SURGERY LUMBAR DISCECTOMY ROTATOR CUFF REPAIR Family History No family history on file. Social History Social History Tobacco Use Smoking status: Former Types: Cigarettes Smokeless tobacco: Never Tobacco comments: Very rarely smoked Substance Use Topics Alcohol use: Yes Comment: no more than once a month Allergies: Allergies Allergen Reactions Keytruda [Pembrolizumab] Itching Medications: Current Outpatient Medications: acetaminophen (Tylenol) 500 MG tablet, Take by mouth every 6 hours as needed for mild pain (1-3)., Disp: , Rfl: aflibercept (Eylea) 2 MG/0.05ML intra-ocular injection, 2 mg by Intravitreal route Once., Disp: , Rfl: alfuzosin ER (Uroxatral) 10 MG 24 hr tablet, Take 10 mg by mouth daily. Do not crush, chew, or split., Disp: , Rfl: amLODIPine (Norvasc) 5 MG tablet, Take 5 mg by mouth daily., Disp: , Rfl: calcium carbonate (Os-Jewel) 1250 (500 Ca) MG tablet, Take 600 mg by mouth daily., Disp: , Rfl: cholecalciferol (Vitamin D-3) 125 MCG (5000 UT) capsule, Take 1,000 Units by mouth daily. Vitamin D not D3, Disp: , Rfl: Eliquis 5 MG tablet, Take 5 mg by mouth in the morning and 5 mg before bedtime., Disp: , Rfl: glucosamine-chondroitin 500-400 MG tablet, Take 2 tablets by mouth 1 (one) time each day., Disp: , Rfl: ibuprofen 200 MG tablet, Take by mouth See administration instructions. prn, Disp: , Rfl: levothyroxine (Tirosint) 100 MCG capsule, Take by mouth every other day., Disp: , Rfl: levothyroxine (Tirosint) 112 MCG capsule, Take by mouth every other day., Disp: , Rfl: metoprolol tartrate (Lopressor) 25 MG tablet, Take 12.5 mg by mouth 2 times daily., Disp: , Rfl: Multiple Vitamins-Minerals (multivitamin with minerals) tablet, Take 2 tablets by mouth daily., Disp: , Rfl: NAC 600 MG capsule, Take 1 capsule by mouth in the morning and 1 capsule before bedtime., Disp: , Rfl: nivolumab (Opdivo) 100 mg/10 mL chemo injection, Infuse into a venous catheter Once., Disp: , Rfl: omeprazole (PriLOSEC) [address] capsule, Take 40 mg by mouth every morning (before breakfast). Do not crush or chew., Disp: , Rfl: triamcinolone (Kenalog) 0.1 % lotion, Apply topically as needed., Disp: , Rfl: zinc gluconate 50 MG tablet, Take 50 mg by mouth daily., Disp: , Rfl: bisoprolol (Zebeta) 5 MG tablet, Take 2.5 mg by mouth Nightly., Disp: , Rfl: cephalexin (Keflex) 250 MG capsule, Take 250 mg by mouth 3 times daily., Disp: , Rfl: ipratropium-albuterol (Combivent Respimat) 20-100 MCG/ACT inhaler, Inhale 1 puff 4 times daily as needed., Disp: , Rfl: Iron-Vitamin C 65-125 MG tablet, Take 65 mg by mouth daily., Disp: , Rfl: Review of Systems: Review of Systems Constitutional: Negative. Negative for activity change, chills, diaphoresis, fatigue and fever. HENT: Negative. Negative for nosebleeds and trouble swallowing. Eyes: Negative. Negative for discharge and visual disturbance. Respiratory: Negative. Negative for apnea, cough, chest tightness, shortness of breath and wheezing. Cardiovascular: Negative. Negative for chest pain, palpitations and leg swelling. Gastrointestinal: Negative. Negative for abdominal distention, abdominal pain, blood in stool, diarrhea, nausea and vomiting. Endocrine: Negative. Negative for cold intolerance and heat intolerance. Genitourinary: Negative. Negative for hematuria. Musculoskeletal: Negative. Negative for gait problem and myalgias. Skin: Negative. Negative for color change and rash. Neurological: Negative. Negative for dizziness, seizures, syncope, facial asymmetry, speech difficulty, weakness, light-headedness, numbness and headaches. Hematological: Negative. Does not bruise/bleed easily. Psychiatric/Behavioral: Negative. Negative for dysphoric mood. Physical Examination: Vitals: Vitals: 01/19/24 0901 BP: 110/86 BP Location: Right arm Patient Position: Sitting BP Cuff Size: Adult Pulse: 61 SpO2: 97% Weight: 198 lb 9.6 oz (90.1 kg) Body mass index is 31.57 kg/m . Physical Exam Vitals reviewed. Constitutional: Appearance: Normal appearance. HENT: Head: Normocephalic. Right Ear: External ear normal. Left Ear: External ear normal. Nose: Nose normal. Mouth/Throat: Mouth: Mucous membranes are moist. Eyes: Pupils: Pupils are equal, round, and reactive to light. Cardiovascular: Rate and Rhythm: Normal rate and regular rhythm. Heart sounds: No murmur heard. Pulmonary: Effort: No respiratory distress. Musculoskeletal: General: Normal range of motion. Right lower leg: No edema. Left lower leg: No edema. Skin: General: Skin is warm and dry. Coloration: Skin is not jaundiced. Neurological: General: No focal deficit present. Mental Status: He is alert. Motor: No weakness. Gait: Gait normal. Psychiatric: Mood and Affect: Mood normal. Behavior: Behavior normal. Thought Content: Thought content normal. Judgment: Judgment normal. Laboratory Tests: No results found for: WBC , HGB , HCT , MCV , PLT No results found for: GLUCOSE , CALCIUM , NA , K , CO2 , CL , BUN , CREATININE @LASTCMP@ No results found for: CHLPL , CHOL No results found for: TRIG No results found for: HDL No results found for: LDLCALC Assessment and Plan: PVCs: In 5 minutes of palpation auscultation I did not detect any. ECG demonstrates sinus rhythm without ectopy. He will continue his low-dose beta-rydre. He will contact our office later today so we can accurately notate which 1. Atrial fibrillation: Paroxysmal. Would not recommend antiarrhythmic drug. Would recommend continuing anticoagulation with Eliquis and his low-dose beta-ryder. Nocturnal bradycardia: Remains asymptomatic. ECG today is normal. He will now follow-up in [place] and establish with a engineering operator there. documented in this encounter [facility] 05-05-2023 Evaluation + Plan note Associated Problem(s): PVC (premature ventricular contraction) He denies any more palpitations. For now we will continue metoprolol tartrate 25 mg twice daily. He is questioning if he needs to continue following here or if he can just follow-up in [place] I have advised him that we will schedule a 6-month follow-up with Dr. Dolan and if he feels in 6 months that he remains stable from a cardiac standpoint he can cancel that appointment and continue following with his primary cardiology team. [facility] 05-05-2023 Miscellaneous Notes Associated Problem(s): PVC (premature ventricular contraction) He denies any more palpitations. For now we will continue metoprolol tartrate 25 mg twice daily. He is questioning if he needs to continue following here or if he can just follow-up in [place] I have advised him that we will schedule a 6-month follow-up with Dr. Dolan and if he feels in 6 months that he remains stable from a cardiac standpoint he can cancel that appointment and continue following with his primary cardiology team. Associated Problem(s): Paroxysmal atrial fibrillation (CMS/HCC) (HCC) He has not had recurrence even through his 4-week hospital stay with a strep infection into his clavicle bone. He denies any further palpitations at all. For now we will wait and watch and he will continue Eliquis 5 mg twice a day for stroke prevention. We will also continue low-dose metoprolol. documented in this encounter [facility] 05-05-2023 Evaluation + Plan note Associated Problem(s): Paroxysmal atrial fibrillation (CMS/HCC) (HCC) He has not had recurrence even through his 4-week hospital stay with a strep infection into his clavicle bone. He denies any further palpitations at all. For now we will wait and watch and he will continue Eliquis 5 mg twice a day for stroke prevention. We will also continue low-dose metoprolol. [facility] 05-05-2023 History of Present illness Narrative Images from the original note were not included. [facility] [address] [id number] Dept: [phone] Dept Loc: [phone] Visit type: Established : 1940 Reason for Visit: 6 Month Follow-up Assessment and Plan 1. PVC (premature ventricular contraction) Assessment & Plan: He denies any more palpitations. For now we will continue metoprolol tartrate 25 mg twice daily. He is questioning if he needs to continue following here or if he can just follow-up in [place] I have advised him that we will schedule a 6-month follow-up with Dr. Dolan and if he feels in 6 months that he remains stable from a cardiac standpoint he can cancel that appointment and continue following with his primary cardiology team. 2. PAF (paroxysmal atrial fibrillation) (CMS/HCC) ([facility]) - ECG 12 lead - CLINIC PERFORMED 3. Paroxysmal atrial fibrillation (CMS/HCC) ([facility]) Assessment & Plan: He has not had recurrence even through his 4-week hospital stay with a strep infection into his clavicle bone. He denies any further palpitations at all. For now we will wait and watch and he will continue Eliquis 5 mg twice a day for stroke prevention. We will also continue low-dose metoprolol. Follow up in about 6 months (around 11/04/2023), or JKS. Subjective Emperatriz Epps is a 82 y.o. male known to Dr Dolan who presented in Oct 2022 for evaluation of PVCs atrial fibrillation and abnormal Holter monitor. He is very pleasant gentleman who is status post melanoma resection from his right heel. He has intermittent palpitation intermittent sense of needing to catch his breath. He has had extensive evaluation under the direction of Dr. Baez. These records are reviewed in detail today with the patient. LV function is normal with an ejection fraction of 55 to 60% with 1+ MR. On a stress test he performed well achieving 93% of the age-predicted maximal heart rate. There is no ischemia. Ejection fraction was 70% by nuclear study. Holter monitor was obtained on 2 occasions most recently September 2022 demonstrating a 10% PVC burden and nocturnal bradycardia with sinus pause as well as type I second-degree AV block and 2 beats of 2-1 AV block at 3:25 AM. He had an episode of atrial fibrillation spontaneously converting to sinus rhythm. It was at this time he was placed on Eliquis and low-dose beta-blockade. He presents for his 6-month follow-up Emperatriz Epps for evaluation. He states from a cardiac standpoint he has no complaints. He states that his palpitations have completely resolved and he has not had any issues. He does share that since he was last seen he has had recurrence of his melanoma and also had lymph involvement in his right inguinal area which he underwent surgery and radiation. He then somehow developed an infection just under his left clavicle and had to have surgery and part of his clavicle removed and has been on oral antibiotics after spending 4 weeks in the hospital and a transitional care unit on IV antibiotics. He denies any recent fever or chills but states that his GI tract has had a rough time with the antibiotics and he is on probiotic treatment. He currently follows with a nurse practitioner in [place] that worked with Dr. Baez since he left. Review of Systems Constitutional: Negative for chills, diaphoresis and fever. HENT: Negative for nosebleeds. Eyes: Negative for visual disturbance. Respiratory: Negative for chest tightness, shortness of breath and wheezing. Cardiovascular: Negative for chest pain, palpitations and leg swelling. Gastrointestinal: Negative for abdominal pain, blood in stool and diarrhea. Genitourinary: Negative for hematuria. Musculoskeletal: Negative for myalgias. Neurological: Negative for dizziness and syncope. Hematological: Does not bruise/bleed easily. Allergies Allergen Reactions Keytruda [Pembrolizumab] Itching Outpatient Medications Prior to Visit Medication Sig Dispense Refill acetaminophen (Tylenol) 500 MG tablet Take by mouth every 6 hours as needed for mild pain (1-3). aflibercept (Eylea) 2 MG/0.05ML intra-ocular injection 2 mg by Intravitreal route Once. alfuzosin ER (Uroxatral) 10 MG 24 hr tablet Take 10 mg by mouth daily. Do not crush, chew, or split. amLODIPine (Norvasc) 5 MG tablet Take 5 mg by mouth daily. cephalexin (Keflex) 250 MG capsule Take 250 mg by mouth 3 times daily. cholecalciferol (Vitamin D-3) 125 MCG (5000 UT) capsule Take 1,000 Units by mouth daily. Vitamin D not D3 Eliquis 5 MG tablet Take 5 mg by mouth in the morning and 5 mg before bedtime. glucosamine-chondroitin 500-400 MG tablet Take 1 tablet by mouth in the morning and 1 tablet at noon and 1 tablet before bedtime. Iron-Vitamin C 65-125 MG tablet Take 65 mg by mouth daily. levothyroxine (Tirosint) 112 MCG capsule Take by mouth every morning (before breakfast). metoprolol tartrate (Lopressor) 25 MG tablet Take 25 mg by mouth in the morning and 25 mg before bedtime. Multiple Vitamins-Minerals (multivitamin with minerals) tablet Take 2 tablets by mouth daily. NAC 600 MG capsule Take 1 capsule by mouth in the morning and 1 capsule before bedtime. omeprazole (PriLOSEC) [address] capsule Take 40 mg by mouth every morning (before breakfast). Do not crush or chew. zinc gluconate 50 MG tablet Take 50 mg by mouth daily. aspirin 81 MG EC tablet Take 81 mg by mouth daily. bisoprolol (Zebeta) 5 MG tablet Take 2.5 mg by mouth Nightly. calcium carbonate (Os-Jewel) 1250 (500 Ca) MG tablet Take 600 mg by mouth daily. ipratropium-albuterol (Combivent Respimat) 20-100 MCG/ACT inhaler Inhale 1 puff 4 times daily as needed. triamcinolone (Kenalog) 0.1 % lotion Apply topically as needed. No facility-administered medications prior to visit. Past Medical History: Diagnosis Date Melendrez's palsy BPH (benign prostatic hyperplasia) CKD (chronic kidney disease) stage 3 ETOH abuse GERD (gastroesophageal reflux disease) HTN (hypertension) Hypercholesteremia Hypothyroid Melanoma (HCC) right heel OA (osteoarthritis) of knee PAF (paroxysmal atrial fibrillation) (CMS/HCC) (HCC) Social History Tobacco Use Smoking status: Former Types: Cigarettes Smokeless tobacco: Never Tobacco comments: Very rarely smoked Substance Use Topics Alcohol use: Yes Comment: no more than once a month Past Surgical History: Procedure Laterality Date HEMORRHOID SURGERY LUMBAR DISCECTOMY ROTATOR CUFF REPAIR No family history on file. Objective Vitals: 05/05/23 1020 BP: 130/86 BP Location: Right arm Patient Position: Sitting BP Cuff Size: Adult Pulse: 66 SpO2: 98% Weight: 195 lb 3.2 oz (88.5 kg) Physical Exam Constitutional: General: He is not in acute distress. Appearance: He is not diaphoretic. HENT: Head: Normocephalic. Nose: Nose normal. Mouth/Throat: Mouth: Mucous membranes are moist. Pharynx: No oropharyngeal exudate. Eyes: General: No scleral icterus. Right eye: No discharge. Left eye: No discharge. Neck: Thyroid: No thyromegaly. Vascular: No carotid bruit or JVD. Cardiovascular: Rate and Rhythm: Normal rate and regular rhythm. Pulses: Normal pulses. Heart sounds: Normal heart sounds. Pulmonary: Effort: Pulmonary effort is normal. Breath sounds: Normal breath sounds. Abdominal: General: Bowel sounds are normal. There is no distension. Palpations: There is no hepatomegaly. Tenderness: There is no abdominal tenderness. Musculoskeletal: General: Normal range of motion. Cervical back: Normal range of motion. Right lower leg: No edema. Left lower leg: No edema. Skin: General: Skin is warm and dry. Neurological: Mental Status: He is oriented to person, place, and time. Psychiatric: Mood and Affect: Mood normal. Behavior: Behavior normal. Data Reviewed and Summarized No results found for: EFBP, PLVEF, LVEFPHYS, LVEF2D, EF Review of tests/labs done/ordered within my specialty: EKG in office: His EKG reveals a normal sinus rhythm at 66 bpm. No PVCs are seen. Review of tests/labs done/ordered outside my specialty: Independent interpretation of tests: JEREMIAH Martinez CNP documented in this encounter [facility] 05-05-2023 Instructions JEREMIAH Martinez CNP - 05/05/2023 10:30 AM EDT No changes documented in this encounter [facility] 03-06-2023 History of Present illness Narrative 83-year-old man with right heel melanoma underwent wide local excision followed by right inguinal lymphadenectomy with sartorius flap for of 10 positive nodes course complicated by recurrent seroma for which pigtail catheter was placed on 03/06. He presents for drain/wound check. CARROLL Burnette DO Work Phone: 02-04-2023 Hospital Discharge instructions Vascular Access Port: top entry, single lumenVascular Access Port: right infraclavicular fossaLabs 1 (Modify Template):Lab Test(s): CBC with dif, Comprehensive Metabolic Panel, CRP, ESRDate To Be Drawn: weeklyFax Results To: [phone], Attn Dr Wagoner Care (Gold Form or Patient Managed):Line Care for Adults. Access Type: PICC. Site: Left. FLUSH INSTRUCTIONS. Heparin flush 10 unit/mL Injectable 5 mL intravenous every 8 hours and as needed- via PICC. Sodium Chloride 0.9% Injectable 10 mL Intravenous flush every 8 hours and as needed - via PICC. PICC/MIDLINE INSTRUCTIONS. Avoid using syringes smaller than 6 mLs. Notify MD of inability to obtain blood return or flush catheter. Notify MD if line becomes sluggish to draw or flush. Do not use arm that contains the line for BP or phlebotomy. Do not use PICC line w/ power injector unless PICC is power injectable. Warm compress to arm containing line, intermittently every 4 hours for 24 hours post insertion and as needed. Notify MD of pain and/or swelling in PICC arm, shoulder and/or neck. Notify MD of temp > 100.2 F, shortness of breath, elevated heart rate or abnormal rhythm. Notify MD of bleeding, swelling, purluent draining at exit site, and/or catheter dislodgement. Change transparent dressing, stat lock and biopatch every 7 days and as needed. Cleanse with chloraprep. Use betadine only if patient has allergy to chloraprep. Change 24 hours after initial insertion. Change transparent dressing and stat lock every 7 days and as needed. Gauze and tape dressing every 48 hours as needed. Flush PICC before and after intermittent medication infusion with 0.9% saline. Use SASH method for lines without fluids continuously infusing: Saline, Administer Med, Saline, Heparin flush. Measure mid-upper arm circumference. Measure external catheter length. GENERAL LINE CARE INSTRUCTIONS. Tubing change: every 4 days and as needed. Exception: lipids and blood products change within 24 hours of infusion. Cap change: every 7 days and as needed. Change within 24 hours of blood or lipid infusion. Gloves should be worn with handling of central venous catheter. Call Physician if presence of redness, swelling, drainage or purulence at insertion site. May draw labs from line.Drain/Tube Care 1:Type: FARNAZ (Donavan Dawkins)Site: groinSuction: continuous, selfCleanse With: soap and waterDress With: 2x2 gauze dressingOther Instructions: To empty the drain, open the cap, tip into cup and squeeze to empty. Squeeze drain flat then replace the cap. Please empty the drain and record its output _3_ times a day and bring these numbers to your follow up appointment. The drain output should decrease and the color of the drainage should become electric refrigerator servicer (red to pink to yellow). This drain is sutured into place. Keep the area around the drain clean and dry. You may use mild soap and water to cleanse around the drain. It is ok to shower; do not soak in a tub. Change the gauze around the drain as needed. Call the office if you notice drastic changes in drain output, bloody drain output, or redness/drainage around insertion site.Drain/Tube Care 2:Type: FARNAZ (Donavan Dawkins)Site: left anterior chestSuction: continuousCleanse With: soap and waterDress With: 2x2 gauze dressingOther Instructions: To empty the drain, open the cap, tip into cup and squeeze to empty. Squeeze drain flat then replace the cap. Please empty the drain and record its output _3_ times a day and bring these numbers to your follow up appointment. The drain output should decrease and the color of the drainage should become electric refrigerator servicer (red to pink to yellow). This drain is sutured into place. Keep the area around the drain clean and dry. You may use mild soap and water to cleanse around the drain. It is ok to shower; do not soak in a tub. Change the gauze around the drain as needed. Call the office if you notice drastic changes in drain output, bloody drain output, or redness/drainage around insertion site.Activity:- Continue increasing activity and using incentive spirometer, cough and deep breathe. - No pushing, pulling or lifting objects over 15 lbs for 3 weeks. - No flying for 3 weeks. - No jogging or heavy aerobics for 3 weeks. - No swimming or bath tub until incisions well healed, 1 week. - Notify Thoracic Surgery of redness, increased drainage, bleeding or other problems. - Take Roxicet 5 to 10 mL every 4-6 hours as needed for pain. - No driving while on pain medications (narcotics).Wound Care:- Wound Care: Cleanse incision site with soap and water daily. No dressing required; leave open to air. Do not use lotions, creams or tub soaks. - May shower 48 hours after last chest tube removal. - Surgical Incision Care: Maintain occlusive dressing intact on chest tube for 48 hours after last chest tube removal; then remove and apply band-aid if any oozing. - Enteral Feeding Water Flush: 60 ml via JT (Jejunostomy Tube) 3 times a day. - Enteral Feeding Water Flush: 20 ml via JT (Jejunostomy Tube) on demand , before and after each medication. - Surgical Incision Care: Cover site around j-tube with Dry Clean Dressing daily and as needed. Monitor for signs of oozing and infection, report any symptoms to Thoracic surgery.Patient Instructions:- Go to Emergency room for severe chest pain or shortness of breath. - Elevate head of bed at least 30 degrees. - If it feels like food is catching in your throat, call the office.Activity:- Activity as tolerated. - Continue increasing activity and using incentive spirometer, cough and deep breathe. - No flying for 3 weeks. - No jogging or heavy aerobics for 3 weeks. - No driving while on pain medications (narcotics). - No pushing, pulling or lifting objects over 15 lbs for 3 weeks.Wound Care:- Maintain occlusive dressing intact on chest tube sites for 48 hours after last chest tube removal, then remove. Apply dry band-aid if any oozing. - May shower 48 hours after last chest tube removal. - No swimming or bath tub until incisions well healed, 1 week. - Cleanse incisions with soap and water daily. No dressing required; leave open to air. Do not use lotions, creams or tub soaks. - Notify thoracic surgery of redness, increased drainage, bleeding or other problems.Patient Instructions:- Return to emergency room for severe chest pain or shortness of breath.Follow-Up - Primary Care Physician:Physician/Dept/Service: Primary Care PhysicianCall to Schedule in: 1 weekFollow-Up 2:Physician/Dept/Service: Dr. Boggs (thoracic surgery)Scheduled Date/Time: 25-Feb-2023 10:00Location: [address] floorPhone Number: [phone]: chest x-ray at 0930 followed by appointment at 1000, call office with questions pleaseCare Recommendation:I recommend that INPATIENT care is required at: SkilledEstimated Stay: 30 - 180 daysPrognosis: GoodRehab Potential/Function: MaintainTherapy Orders:Occupational Therapy Orders: Eval and Treat ([facility])Physical Therapy Orders: Eval and Treat ([facility])Provider Follow Up:Physician To Follow at Skilled/Rehab[facility] Send Summary: Discharge Summary Providers: Provider RoleProvider Name ReferringCorrect Info, Needed María Posada [facility] Service - Surg Onc Nurse PractitionerHorace Mcintosh Eric A Note Recipients: Correct Info, NeededMD Magdaleno Eric A, MD - [phone] [] Discharge: Summary: Admission Date: .27-Jan-2023 01:57:00 Discharge Date: 03-Feb-2023 Attending Physician at Discharge: María Boggs Admission Reason: SC joint abscess Final Discharge Diagnoses: SC joint abscess Procedures: Date: 27-Jan-2023 13:05:00 Procedure Name: Drain Placement Date: 28-Jan-2023 16:51:00 Procedure Name: 1. incision and drainage of left sternoclavicular abscess 2. debridement of left clavicle and sternum 3. wound vac placement Date: 30-Jan-2023 11:59:00 Procedure Name: 1. wound debridement 2. wound closure Condition at Discharge: Satisfactory Disposition at Discharge: Longterm Facility (SNF) Vital Signs: T PRBPMAPSpO2 [id number]% Date/Time02/03 9:173/8 9:173/8 9:1738 9:173/7 9:503/8 9:17 Range(35.9C - 37C ) (67 - 90 ) (16 - 18 ) (78 - 147 )/ (39 - 86 ) (64 - 100 ) (94% - 100% ) Highest temp of 37 C was recorded at 37 1:15 Date: Weight/Scale Type:Height: 01-Feb-2023 02:4988.6 kg / standing Hospital Course: 83 year old man with hx of recent melanoma surgery, RA, Recent COVID Infection, who presents with 1 week of pleuritic chest pain and fevers. CTA chest done at OSH reveals Large Extrapleural Apical abscess in communication with Left Sternoclavicular joint. Patient does have overlying cellulitis.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 Wednesday May not return to school/work. May not drive while taking narcotics. No pushing, pulling, or lifting objects greater than 10 pounds. Lymphedema exercises 3x day Nutrition/Diet: resume normal diet Wound Care: Wound Site: groin Wound Type: surgical incision Cleanse With: soap and water Instructions: no lotions, creams, or tub soaks Other Instructions: You have surgical glue over your incision. You may shower and use soap and water over your incision. Pat dry. The surgical glue with slowly dissolve and fall away. Drain/Tube Care: Type: FARNAZ (Donavan Dawkins) Site: groin Suction: continuous self Cleanse With: soap and water Dress With: 2x2 gauze dressing Other Instructions: To empty the drain, open the cap, tip into cup and squeeze to empty. Squeeze drain flat then replace the cap. Please empty the drain and record its output _3_ times a day and bring these numbers to your follow up appointment. The drain output should decrease and the color of the drainage should become electric refrigerator servicer (red to pink to yellow). This drain is sutured into place. Keep the area around the drain clean and dry. You may use mild soap and water to cleanse around the drain. It is ok to shower; do not soak in a tub. Change the gauze around the drain as needed. Call the office if you notice drastic changes in drain output, bloody drain output, or redness/drainage around insertion site. Additional Orders: Additional Instructions: Please send Dr. Bennett images of drains and wound on Wednesday12/26/2022 to determine resumption of Eliquis. Home Care Certification: Home Care Agency: Other (with phone number) [facility] Skilled Disciplines Ordered: RN/POWDER CUTTING OPERATOR Home Care Services: Home Care Skilled Service: assessment, drain care, follow up teaching, Rehab (PT/OT/SP eval and treat), wound care Follow Up Appointments: Follow-Up Appointment 01: Physician/Dept/Service: Dr Bennett Reason for Referral: post-op appointment Call to Schedule in: 2 weeks Discharge Medications: Home Medication omeprazole 40 mg oral delayed release capsule - 1 cap(s) orally once a day amLODIPine 5 mg oral tablet - 1 tab(s) orally once a day glucosamine 1000 mg oral capsule - 2 cap(s) orally once a day levothyroxine 112 mcg (0.112 mg) oral tablet - 1 tab(s) orally once a day multivitamin - 1 tab(s) orally once a day Zinc 140 mg (as elemental zinc 50 mg) oral tablet - 1 tab(s) orally once a day alfuzosin 10 mg oral tablet, extended release - 1 tab(s) orally once a day calcium (as carbonate) 600 mg oral tablet - 1 tab(s) orally once a day Metoprolol Tartrate 25 mg oral tablet - 1 tab(s) orally 2 times a day NAC 600 mg oral capsule - 1 cap(s) orally 2 times a day Vitamin D3 25 mcg (1000 intl units) oral tablet - 1 tab(s) orally once a day acetaminophen 325 mg oral tablet - 2 tab(s) orally every 6 hours apixaban 5 mg oral tablet - 1 tab(s) orally 2 times a day RESTART 12/31/22 PRN Medication traMADol 50 mg oral tablet - 1 tab(s) orally every 4 to 6 hours x 7 days, As Needed -for pain Dx: G89.18 DNR Status: Code StatusCode Status order at time of discharge: Full Code Electronic Signatures: Aspen Benton (TEACHER ADVISOR-FILTER PRESS OPERATOR) (Signed 24-Dec-2022 12:59) (more content not included)... [facility] 12-24-2022 Note Clinical Note - Phar devi v2: Education: Document TopicMedication Education MedicationMeds to Beds: Patient declines Meds to Beds service at discharge. Sources used to confirm home medication list: Med list pulled from ambulatory EMR. Electronic fill history, HIE ([facility] note on 12/08/22), and [place]ARRS were all checked. Patient was interviewed and had hand-written list in room. Additional comments: Patient had hand-written med list. Acetaminophen is in the OMR, because that is a future discharge medication. OARRS shows tramadol and oxycodone-acetaminophen were both filled in 04/2021 for short-courses. Medication reconciliation complete Please reach out via [employer] for questions Yves Mcgarry RPh, PharmD, PGY1 Director [employer] [facility] Is This Intervention Medication Reconciliation Relatedyes Time Oughyqel02-10 minutes Additional NotesHome Medications Review Status for Reconciliation: Complete Med Status: Patient Currently Takes Medications Drug Name: omeprazole 40 mg oral delayed release capsule Instructions: 1 cap(s) orally once a day Drug Name: amLODIPine 5 mg oral tablet Instructions: 1 tab(s) orally once a day Drug Name: apixaban 5 mg oral tablet Instructions: 1 tab(s) orally 2 times a day Drug Name: glucosamine 1000 mg oral capsule Instructions: 2 cap(s) orally once a day Drug Name: levothyroxine 112 mcg (0.112 mg) oral tablet Instructions: 1 tab(s) orally once a day Drug Name: multivitamin Instructions: 1 tab(s) orally once a day Drug Name: Zinc 140 mg (as elemental zinc 50 mg) oral tablet Instructions: 1 tab(s) orally once a day Drug Name: alfuzosin 10 mg oral tablet, extended release Instructions: 1 tab(s) orally once a day Drug Name: calcium (as carbonate) 600 mg oral tablet Instructions: 1 tab(s) orally once a day Drug Name: Metoprolol Tartrate 25 mg oral tablet Instructions: 1 tab(s) orally 2 times a day Drug Name: NAC 600 mg oral capsule Instructions: 1 cap(s) orally 2 times a day Drug Name: Vitamin D3 25 mcg (1000 intl units) oral tablet Instructions: 1 tab(s) orally once a day Allergy: Allergies Summary No Known Allergies Electronic Signatures: Yves Mcgarry ([facility]) (Signed 24-Dec-2022 10:06) Entered: Allergy, Education Authored: Education, Allergy Felicitas Madrid ([facility]) (Signed 28-Dec-2022 09:16) Co-Signer: Allergy, Education Last Updated: 28-Dec-2022 09:16 by Felicitas Madrid ([facility]) [facility] 12-23-2022 Note PROCEDURE DETAILS 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 Bennett Resident/Fellow/Other Electronic Warfare Technician: MD Shy Sharif, MS 4 Procedure: 1. Right inguinal lymph node dissection 2. Sartorius flap reconstruction 3. Excision of skin lesion - concerning for in transit lesion Anesthesia: GETA Estimated Blood Loss: 25 cc Findings: Palpable nodes in the right inguinal basin. Dermal pigmented lesion - concerning for in transit met Specimens(s) Collected: yes, Right inguinal silvia contents Right inguinal skin lesion Complications: None Drains and/or Catheters: 2x 19Fr flat drains Patient Returned To/Condition: PACU Operative Report: Indications: Mr. 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 He was found to have palpable clinical silvia recurrence in the right inguinal basin recently. Staging imaging did not identify any evidence of distant metastatic disease. He was recommended for right inguinal lymphadenectomy. He understood the risks, benefits, and alternatives. Informed consent was obtained. Description of the procedure: The patient was brought to the operating room and placed supine on the table. Lovenox was administered and sequential compression devices were applied. General anesthesia was smoothly induced. The operative sites were prepped and draped in the usual fashion. Timeout was performed and preoperative antibiotics given. A curvilinear incision was made in the right inguinal basin crossing the groin crease and excising the prior sentinel lymph node biopsy scar. The scar was left en bloc with the underlying silvia tissue. The skin was incised sharply and skin flaps were then raised in all directions. Superiorly this included dissection of all tissue about 5 cm above the inguinal ligament onto the external oblique fascia. Medially the spermatic cord was identified and preserved and then all tissue was dissected off of the adductor longus musculature down to the apex of the femoral triangle at which the sartorius and adductor longus cross. The distal aspect of the saphenous vein was also identified and ligated. Laterally the dissection carried to the lateral border of the sartorius muscle allowing clearance of all tissue. In the more superior part of the incision this dissection included all tissue out of the ASIS. It was in this lateral aspect of the dissection that we identified the palpable lymph node. This was dissected carefully ensuring clear margins however there was a pigmented tract of tissue that extended to the dermis about 3 cm adjacent to the prior sentinel node biopsy scar. As such the skin overlying this pigmented area was excised with a 5 mm margin and sent as a separate specimen. My intention is to rule out in-transit disease. At this point the tissue of the inguinal basin was then dissected off of the tensor fascia nicol up to the fossa ovalis where in the Femoral artery and vein were identified. Tissue was cleared off of the sartorius muscle including its fascia. The adductor longus was also cleared. The external oblique down to the inguinal ligament was also cleared of all tissue allowing meticulous dissection along the inguinal ligament anterior to the femoral vessels. This dissection proceeded medially to include [place]'s node and tissue medial to the femoral vein. The last portion of this dissection included ligation of the saphenous vein at its origin. Two 2-0 silk sutures were used for this ligation. At this point the wound was irrigated and hemostasis was assured. The sartorius muscle was then encircled and dissected at its origin along the iliac crest to allow for rotational flap. The lateral aspect of the sartorius muscle was incised and this allowed for flipping of the muscle medially to cover the femoral vessels. This was then sutured to the inguinal ligament with 2-0 PDS sutures. At this point 2 x 19 Palauan channel drains were placed into the resection cavity and connected to bulb suction. The skin was then closed with numerous 3-0 Vicryl deep dermal sutures followed by a 4-0 Monocryl suture for the skin. This closure was also repeated for the lateral skin excision site. Skin glue was used as a dressing. The entirety of the right lower extremity was wrapped with Kerlix and an Derrick bandage to give gentle compression from the foot to the lower thigh. A straight catheterization was performed at the end of the case without any difficulty. The patient tolerated the procedure well without any apparent intraoperative complications. All sponge, needle, and instrument counts were correct. As the attending surgeon I was scrubbed for all putnam portions of the procedure. Note (more content not included)... [facility] 12-23-2022 Note History & Physical R eviewed: I have reviewed the History and Physical dated: 08-Dec-2022 History and Physical reviewed and relevant findings noted. Patient examined to review pertinent physical findings.: No significant changes Home Medications Reviewed: no changes noted Allergies Reviewed: no changes noted ERAS (Enhanced Recovery After Surgery): ERAS Patient: no Consent: COVID-19 Consent: COVID-19 Risk ConsentSurgeon has reviewed putnam risks related to the risk of niraj COVID-19 and if they contract COVID-19 what the risks are. Electronic Signatures: Charles Bennett) (Signed 23-Dec-2022 13:30) Authored: History & Physical Reviewed, ERAS, Consent, Note Completion Last Updated: 23-Dec-2022 13:30 by Charles Bennett) [facility] 12-18-2022 Evaluation + Plan note Future Scheduled TestsCT Knee w/o Contrast Right 12/18/22 [facility] 12-13-2022 History of Present illness Narrative Mr. Epps presented as a 81-year-old male referred by Dr. 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 The patient reports that he has had a lesion on his heel for about a year that was treated as a plantar wart by his clock and watch hands painter. Due to lack of healing and an episode of bleeding 3 months ago, this was treated with biopsy and Curettage. The biopsy returned as malignant melanoma of at least 2.5 mm in depth. Ulceration was not identified although this was difficult to assess in the setting of prior treatments. Currently he has a 2 x 2.3 cm wound on his heel that is superficial and has been healing well. There does appear to be some residual pigmentation surrounding this biopsy site. The patient has not seen a wind tunnel mechanic but denies any other lesions of concern on his lower extremity or elsewhere on his body.Surgery 05/07/2021 wide excision right heel melanoma with a 2 cm margin, Integra graft placement, VAC placement. Right inguinal sentinel lymph node biopsy.Pathology residual melanoma at the right heel with a depth of 1.3 mm. No microsatellitosis. 1 of 2 inguinal sentinel lymph nodes were involved, 0.02 mm deposit with no extracapsular extension. 0/1 popliteal lymph nodes involvedCompleted adjuvant KeytrudaSurgery 12/23/2022 right inguinal lymphadenectomy with sartorius flap reconstruction; excision pigmented dermal lesionPathology 4 of 10 lymph nodes involved with melanoma. Extracapsular extension seen in the largest lesion. The dermal pigmented lesion did not represent in-transit disease02/25/2023 - Drain assessment. The patient returns after recent hospitalization with an intrathoracic abscess operated on by Dr. María Boggs. He is recovering well after that procedure. Continues on Antibiotics03/05/2023 -seroma drain placed to decompress the seroma cavity due to upcoming Radiation Therapy with Dr. Chuck Howell03/12/2023 drainage around the newly placed seroma catheter left concern for undrained fluid collections or and malfunctioning drain. He was seen in clinic today and his drain is not kinked and was flushed gently noting the there was easy return of fluid. He has no undrained fluid collections. There is some fluid that leaks around the drain with pressureROS:The patient has good performance status and is active daily.Cardiac: No chest pain, palpitations or heart attacksPulmonary: No asthma, bronchitis, or COPD. Left chest incision is well approximatedHEENT: right eye vision changeGI: No constipation, diarrhea, or bloody bowel movementsGU: No changes in his urinary habits recentlyMusculoskeletal: Ambulating well. Decreased right lower extremity edema. RIght knee is sore againSkin: Heel has healed very well. Multiple nonmelanoma skin cancers in the pastHeme: No bleeding or thrombosis issuesEndo: hypothyroidLymph: Right inguinal incision healed. Seroma catheter with some leakage noted. Skin breakdown due to tapePsych: No reported anxiety or depressionAll other systems reviewed and negativePhysical exam:General: No acute distress. Healthy appearingHEENT: Moist oral mucosa, normocephalicCV: RRR, Vitals reviewedPulmonary: No respiratory distress. No use of accessory muscles. No audible wheeze. Left chest incision is healing appropriately. Improved redness of the overlying skinLymphatics: No undrained fluid collection in the right groin. Expressible serous fluid around the drain site with pressure. The drain itself seems to be working.Skin: Skin breakdown around the drain due to tape injuryNeuro: No gross sensorimotor deficitsExtremities: Bilateral lower extremity edema is mild but improved since preop CB-Mtwxrfd-EqcyyubApex [facility] Center Work Phone: 12-06-2022 History of Present illness Narrative Mr. Epps presented as a 81-year-old male referred by Dr. 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 The patient reports that he has had a lesion on his heel for about a year that was treated as a plantar wart by his clock and watch hands painter. Due to lack of healing and an episode of bleeding 3 months ago, this was treated with biopsy and Curettage. The biopsy returned as malignant melanoma of at least 2.5 mm in depth. Ulceration was not identified although this was difficult to assess in the setting of prior treatments. Currently he has a 2 x 2.3 cm wound on his heel that is superficial and has been healing well. There does appear to be some residual pigmentation surrounding this biopsy site. The patient has not seen a wind tunnel mechanic but denies any other lesions of concern on his lower extremity or elsewhere on his body.Surgery 05/07/2021 wide excision right heel melanoma with a 2 cm margin, Integra graft placement, VAC placement. Right inguinal sentinel lymph node biopsy.Pathology residual melanoma at the right heel with a depth of 1.3 mm. No microsatellitosis. 1 of 2 inguinal sentinel lymph nodes were involved, 0.02 mm deposit with no extracapsular extension. 0/1 popliteal lymph nodes involvedCompleted adjuvant KeytrudaSurgery 12/23/2022 right inguinal lymphadenectomy with sartorius flap reconstruction; excision pigmented dermal lesionPathology 4 of 10 lymph nodes involved with melanoma. Extracapsular extension seen in the largest lesion. The dermal pigmented lesion did not represent in-transit disease02/25/2023 - Drain assessment. The patient returns after recent hospitalization with an intrathoracic abscess operated on by Dr. María Boggs. He is recovering well after that procedure. Continues on Antibiotics03/05/2023 - After recent inguinal drain removal, the patient developed a recurrent seroma. Asymptomatic.Due to upcoming Radiation Therapy with Dr. Chuck Howell, plan was for placement of a drain to decompress this cavityROS:The patient has good performance status and is active daily.Cardiac: No chest pain, palpitations or heart attacksPulmonary: No asthma, bronchitis, or COPD. Left chest incision is well approximatedHEENT: right eye vision changeGI: No constipation, diarrhea, or bloody bowel movementsGU: No changes in his urinary habits recentlyMusculoskeletal: Ambulating well. Decreased right lower extremity edema. RIght knee is sore againSkin: Heel has healed very well. Multiple nonmelanoma skin cancers in the pastHeme: No bleeding or thrombosis issuesEndo: hypothyroidLymph: Right inguinal incision healed. Large soft seroma palpablePsych: No reported anxiety or depressionAll other systems reviewed and negativePhysical exam:General: No acute distress. Healthy appearingHEENT: Moist oral mucosa, normocephalicCV: RRR, Vitals reviewedPulmonary: No respiratory distress. No use of accessory muscles. No audible wheeze. Left chest incision is healing appropriately. Some redness of the overlying skin.Lymphatics: Right inguinal incision is healed. Large soft palpable seroma noted.Skin: No rashes or lesionsNeuro: No gross sensorimotor deficitsExtremities: Bilateral lower extremity edema is mild but improved since preop QV-Vvrhaeq-AlxhywyApex Medical Center Work Phone: 09-08-2022 History of Present illness Narrative Mr. Epps presented as a 81-year-old male referred by Dr. 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 The patient reports that he has had a lesion on his heel for about a year that was treated as a plantar wart by his clock and watch hands painter. Due to lack of healing and an episode of bleeding 3 months ago, this was treated with biopsy and Curettage. The biopsy returned as malignant melanoma of at least 2.5 mm in depth. Ulceration was not identified although this was difficult to assess in the setting of prior treatments. Currently he has a 2 x 2.3 cm wound on his heel that is superficial and has been healing well. There does appear to be some residual pigmentation surrounding this biopsy site. The patient has not seen a wind tunnel mechanic but denies any other lesions of concern on his lower extremity or elsewhere on his body.Surgery 05/07/2021 wide excision right heel melanoma with a 2 cm margin, Integra graft placement, VAC placement. Right inguinal sentinel lymph node biopsy.Pathology residual melanoma at the right heel with a depth of 1.3 mm. No microsatellitosis. 1 of 2 inguinal sentinel lymph nodes were involved, 0.02 mm deposit with no extracapsular extension. 0/1 popliteal lymph nodes involvedCompleted adjuvant Keytruda12/08/2022 follow-up right inguinal melanoma recurrence. The patient had a whole-body PET/CT and brain MRI in [place] the identified PET avidity in the right inguinal basin concurrent with the palpable node. No other distant metastatic disease. Biopsy proved recurrence. The patient presents now for discussion of surgical planning.ROS:The patient has good performance status and is active daily.Cardiac: No chest pain, palpitations or heart attacksPulmonary: No asthma, bronchitis, or COPDHEENT: right eye vision changeGI: No constipation, diarrhea, or bloody bowel movementsGU: No changes in his urinary habits recentlyMusculoskeletal: Ambulating well. Bilateral lower extremity edema, right greater than left. MildSkin: Heel has healed very well. Multiple nonmelanoma skin cancers in the pastHeme: No bleeding or thrombosis issuesEndo: hypothyroidLymph: Right inguinal swellingPsych: No reported anxiety or depressionAll other systems reviewed and negativePhysical exam:General: No acute distress. Healthy appearingHEENT: Moist oral mucosa, normocephalicCV: RRR, Vitals reviewedPulmonary: No respiratory distress. No use of accessory muscles. No audible wheezeLymphatics: Palpable node lateral to the prior inguinal biopsy scar that is transverse just below the inguinal crease. No other palpable nodes.Skin: No rashes or lesionsNeuro: No gross sensorimotor deficitsExtremities: Bilateral lower extremity edema is mild. Compression socks are being used [facility]ofReg[facility] 8[facility] Work Phone: 02-11-2022 History of Present illness Narrative Mr. Epps presented as a 81-year-old male referred by Dr. 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 The patient reports that he has had a lesion on his heel for about a year that was treated as a plantar wart by his clock and watch hands painter. Due to lack of healing and an episode of bleeding 3 months ago, this was treated with biopsy and Curettage. The biopsy returned as malignant melanoma of at least 2.5 mm in depth. Ulceration was not identified although this was difficult to assess in the setting of prior treatments. Currently he has a 2 x 2.3 cm wound on his heel that is superficial and has been healing well. There does appear to be some residual pigmentation surrounding this biopsy site. The patient has not seen a wind tunnel mechanic but denies any other lesions of concern on his lower extremity or elsewhere on his body.Surgery 05/07/2021 wide excision right heel melanoma with a 2 cm margin, Integra graft placement, VAC placement. Right inguinal sentinel lymph node biopsy.Pathology residual melanoma at the right heel with a depth of 1.3 mm. No microsatellitosis. 1 of 2 inguinal sentinel lymph nodes were involved, 0.02 mm deposit with no extracapsular extension. 0/1 popliteal lymph nodes involved01/13/2022 - Routine follow up. The patient continues with Dr. Souza in Medical Oncology for Adjuvant Keytruda. 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 He has 2 more treatments remaining. He will have imaging likely in June. He will also be due for a surveillance ultrasound around that time for his right popliteal and inguinal basins. Notably, the patient also reports some increased ankle and lower leg swelling at the end of the day right greater than left. This has improved some compression hose that he purchased, but seems to have persisted. The patient was also hospitalized for new onset atrial fibrillation and is currently on Eliquis.ROS:The patient has good performance status and is active daily.Cardiac: No chest pain, palpitations or heart attacksPulmonary: No asthma, bronchitis, or COPDHEENT: right eye vision changeGI: No constipation, diarrhea, or bloody bowel movementsGU: No changes in his urinary habits recentlyMusculoskeletal: Ambulating well. Bilateral lower extremity edema, right greater than left. MildSkin: Heel has healed very well. Multiple biopsies of the skin noted since the last visit - NMSCHeme: No bleeding or thrombosis issuesEndo: hypothyroidLymph: No swollen lymph glandsPsych: No reported anxiety or depressionAll other systems reviewed and negativePhysical exam:General: No acute distress. Healthy appearingHEENT: Moist oral mucosa, normocephalicCV: RRR, Vitals reviewedPulmonary: No respiratory distress. No use of accessory muscles. No audible wheezeLymphatics: No palpable lymphadenopathy in the right popliteal or inguinal basinsSkin: Well healed heel wound by secondary intention. no evidence of pigmentation or nodularity to suggest in-transit diseaseNeuro: No gross sensorimotor deficitsExtremities: Bilateral lower extremity swelling which is new. This is mild however the right is greater than the left. The patient is wearing compression hose as a result and thinks this is VF-Fdrydkh-RwiwviiWest [facility] [id number] Work Phone: 02-09-2022 History of Present illness Narrative Mr. Epps presented as a 81-year-old male referred by Dr. 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 The patient reports that he has had a lesion on his heel for about a year that was treated as a plantar wart by his clock and watch hands painter. Due to lack of healing and an episode of bleeding 3 months ago, this was treated with biopsy and Curettage. The biopsy returned as malignant melanoma of at least 2.5 mm in depth. Ulceration was not identified although this was difficult to assess in the setting of prior treatments. Currently he has a 2 x 2.3 cm wound on his heel that is superficial and has been healing well. There does appear to be some residual pigmentation surrounding this biopsy site. The patient has not seen a wind tunnel mechanic but denies any other lesions of concern on his lower extremity or elsewhere on his body.Surgery 05/07/2021 wide excision right heel melanoma with a 2 cm margin, Integra graft placement, VAC placement. Right inguinal sentinel lymph node biopsy.Pathology residual melanoma at the right heel with a depth of 1.3 mm. No microsatellitosis. 1 of 2 inguinal sentinel lymph nodes were involved, 0.02 mm deposit with no extracapsular extension. 0/1 popliteal lymph nodes involved01/13/2022 - Routine follow up. The patient continues with Dr. Souza in Medical Oncology for Adjuvant Keytruda. 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 He has 2 more treatments remaining. He will have imaging likely in June. He will also be due for a surveillance ultrasound around that time for his right popliteal and inguinal basins. Notably, the patient also reports some increased ankle and lower leg swelling at the end of the day right greater than left. This has improved some compression hose that he purchased, but seems to have persisted. The patient was also hospitalized for new onset atrial fibrillation and is currently on Eliquis.ROS:The patient has good performance status and is active daily.Cardiac: No chest pain, palpitations or heart attacksPulmonary: No asthma, bronchitis, or COPDHEENT: right eye vision changeGI: No constipation, diarrhea, or bloody bowel movementsGU: No changes in his urinary habits recentlyMusculoskeletal: Ambulating well. Bilateral lower extremity edema, right greater than left. MildSkin: Heel has healed very well. Multiple biopsies of the skin noted since the last visit - NMSCHeme: No bleeding or thrombosis issuesEndo: hypothyroidLymph: No swollen lymph glandsPsych: No reported anxiety or depressionAll other systems reviewed and negativePhysical exam:General: No acute distress. Healthy appearingHEENT: Moist oral mucosa, normocephalicCV: RRR, Vitals reviewedPulmonary: No respiratory distress. No use of accessory muscles. No audible wheezeLymphatics: No palpable lymphadenopathy in the right popliteal or inguinal basinsSkin: Well healed heel wound by secondary intention. no evidence of pigmentation or nodularity to suggest in-transit diseaseNeuro: No gross sensorimotor deficitsExtremities: Bilateral lower extremity swelling which is new. This is mild however the right is greater than the left. The patient is wearing compression hose as a result and thinks this is NS-Ysjrweb-HrahnwhWest [facility] Services 2942 Work Phone: 10-23-2021 History of Present illness Narrative Mr. Epps presented as a 81-year-old male referred by Dr. 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 The patient reports that he has had a lesion on his heel for about a year that was treated as a plantar wart by his clock and watch hands painter. Due to lack of healing and an episode of bleeding 3 months ago, this was treated with biopsy and Curettage. The biopsy returned as malignant melanoma of at least 2.5 mm in depth. Ulceration was not identified although this was difficult to assess in the setting of prior treatments. Currently he has a 2 x 2.3 cm wound on his heel that is superficial and has been healing well. There does appear to be some residual pigmentation surrounding this biopsy site. The patient has not seen a wind tunnel mechanic but denies any other lesions of concern on his lower extremity or elsewhere on his body.Surgery 05/07/2021 wide excision right heel melanoma with a 2 cm margin, Integra graft placement, VAC placement. Right inguinal sentinel lymph node biopsy.Pathology residual melanoma at the right heel with a depth of 1.3 mm. No microsatellitosis. 1 of 2 inguinal sentinel lymph nodes were involved, 0.02 mm deposit with no extracapsular extension. 0/1 popliteal lymph nodes involved01/13/2022 - Routine follow up. The patient continues with Dr. Souza in Medical Oncology for Adjuvant Keytruda. 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 Still doing well overall. Recent CT 12/30/2021 report reviewed - no evidence for metastatic concerns. Multiple Derm visits and biopsies since my last visit - NMSCROS:The patient has good performance status and is active daily.Cardiac: No chest pain, palpitations or heart attacksPulmonary: No asthma, bronchitis, or COPDHEENT: right eye vision changeGI: No constipation, diarrhea, or bloody bowel movementsGU: No changes in his urinary habits recentlyMusculoskeletal: Ambulating well.Skin: Heel has healed very well. Multiple biopsies of the skin noted since the last visit - NMSCHeme: No bleeding or thrombosis issuesEndo: hypothyroidLymph: No swollen lymph glandsPsych: No reported anxiety or depressionAll other systems reviewed and negativePhysical exam:General: No acute distress. Healthy appearing 82-year-old manHEENT: Moist oral mucosa, normocephalicCV: RRR, Vitals reviewedPulmonary: No respiratory distress. No use of accessory muscles. No audible wheezeGI: Soft, non-distended.Lymphatics: No palpable lymphadenopathy in the right popliteal or inguinal basinsSkin: Well healed heel wound by secondary intention. Some callous. no evidence of pigmentation or nodularity to suggest in-transit diseaseNeuro: No gross sensorimotor deficitsExtremities: No leg swelling BR-Yfxdylq-EjejqpgWest River [facility] Services 0144 Work Phone: 10-22-2021 History of Present illness Narrative Mr. Epps presented as a 81-year-old male referred by Dr. 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 The patient reports that he has had a lesion on his heel for about a year that was treated as a plantar wart by his clock and watch hands painter. Due to lack of healing and an episode of bleeding 3 months ago, this was treated with biopsy and Curettage. The biopsy returned as malignant melanoma of at least 2.5 mm in depth. Ulceration was not identified although this was difficult to assess in the setting of prior treatments. Currently he has a 2 x 2.3 cm wound on his heel that is superficial and has been healing well. There does appear to be some residual pigmentation surrounding this biopsy site. The patient has not seen a wind tunnel mechanic but denies any other lesions of concern on his lower extremity or elsewhere on his body.Surgery 05/07/2021 wide excision right heel melanoma with a 2 cm margin, Integra graft placement, VAC placement. Right inguinal sentinel lymph node biopsy.Pathology residual melanoma at the right heel with a depth of 1.3 mm. No microsatellitosis. 1 of 2 inguinal sentinel lymph nodes were involved, 0.02 mm deposit with no extracapsular extension. 0/1 popliteal lymph nodes involved01/13/2022 - Routine follow up. The patient continues with Dr. Souza in Medical Oncology for Adjuvant Keytruda. 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 Still doing well overall. Recent CT 12/30/2021 report reviewed - no evidence for metastatic concerns. Multiple Derm visits and biopsies since my last visit - NMSCROS:The patient has good performance status and is active daily.Cardiac: No chest pain, palpitations or heart attacksPulmonary: No asthma, bronchitis, or COPDHEENT: right eye vision changeGI: No constipation, diarrhea, or bloody bowel movementsGU: No changes in his urinary habits recentlyMusculoskeletal: Ambulating well.Skin: Heel has healed very well. Multiple biopsies of the skin noted since the last visit - NMSCHeme: No bleeding or thrombosis issuesEndo: hypothyroidLymph: No swollen lymph glandsPsych: No reported anxiety or depressionAll other systems reviewed and negativePhysical exam:General: No acute distress. Healthy appearing 82-year-old manHEENT: Moist oral mucosa, normocephalicCV: RRR, Vitals reviewedPulmonary: No respiratory distress. No use of accessory muscles. No audible wheezeGI: Soft, non-distended.Lymphatics: No palpable lymphadenopathy in the right popliteal or inguinal basinsSkin: Well healed heel wound by secondary intention. Some callous. no evidence of pigmentation or nodularity to suggest in-transit diseaseNeuro: No gross sensorimotor deficitsExtremities: No leg swelling LO-Ybwscxp-Grsss Main Work Phone: 10-13-2021 History of Present illness Narrative Mr. Epps presented as a 81-year-old male referred by Dr. 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 The patient reports that he has had a lesion on his heel for about a year that was treated as a plantar wart by his clock and watch hands painter. Due to lack of healing and an episode of bleeding 3 months ago, this was treated with biopsy and Curettage. The biopsy returned as malignant melanoma of at least 2.5 mm in depth. Ulceration was not identified although this was difficult to assess in the setting of prior treatments. Currently he has a 2 x 2.3 cm wound on his heel that is superficial and has been healing well. There does appear to be some residual pigmentation surrounding this biopsy site. The patient has not seen a wind tunnel mechanic but denies any other lesions of concern on his lower extremity or elsewhere on his body.Surgery 05/07/2021 wide excision right heel melanoma with a 2 cm margin, Integra graft placement, VAC placement. Right inguinal sentinel lymph node biopsy.Pathology residual melanoma at the right heel with a depth of 1.3 mm. No microsatellitosis. 1 of 2 inguinal sentinel lymph nodes were involved, 0.02 mm deposit with no extracapsular extension. 0/1 popliteal lymph nodes involved01/13/2022 - Routine follow up. The patient continues with Dr. Souza in Medical Oncology for Adjuvant Keytruda. 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 Still doing well overall. Recent CT 12/30/2021 report reviewed - no evidence for metastatic concerns. Multiple Derm visits and biopsies since my last visit - NMSCROS:The patient has good performance status and is active daily.Cardiac: No chest pain, palpitations or heart attacksPulmonary: No asthma, bronchitis, or COPDHEENT: right eye vision changeGI: No constipation, diarrhea, or bloody bowel movementsGU: No changes in his urinary habits recentlyMusculoskeletal: Ambulating well.Skin: Heel has healed very well. Multiple biopsies of the skin noted since the last visit - NMSCHeme: No bleeding or thrombosis issuesEndo: hypothyroidLymph: No swollen lymph glandsPsych: No reported anxiety or depressionAll other systems reviewed and negativePhysical exam:General: No acute distress. Healthy appearing 82-year-old manHEENT: Moist oral mucosa, normocephalicCV: RRR, Vitals reviewedPulmonary: No respiratory distress. No use of accessory muscles. No audible wheezeGI: Soft, non-distended.Lymphatics: No palpable lymphadenopathy in the right popliteal or inguinal basinsSkin: Well healed heel wound by secondary intention. Some callous. no evidence of pigmentation or nodularity to suggest in-transit diseaseNeuro: No gross sensorimotor deficitsExtremities: No leg swelling YQ-Gxvg-Ysmqwxeg-Alyson hubbard Work Phone: 07-07-2021 History of Present illness Narrative Mr. Epps is a 81-year-old male referred by Dr. 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 The patient reports that he has had a lesion on his heel for about a year that was treated as a plantar wart by his clock and watch hands painter. Due to lack of healing and an episode of bleeding 3 months ago, this was treated with biopsy and Curettage. The biopsy returned as malignant melanoma of at least 2.5 mm in depth. Ulceration was not identified although this was difficult to assess in the setting of prior treatments. Currently he has a 2 x 2.3 cm wound on his heel that is superficial and has been healing well. There does appear to be some residual pigmentation surrounding this biopsy site. The patient has not seen a wind tunnel mechanic but denies any other lesions of concern on his lower extremity or elsewhere on his body.Surgery 05/07/2021 wide excision right heel melanoma with a 2 cm margin, Integra graft placement, VAC placement. Right inguinal sentinel lymph node biopsy.Pathology residual melanoma at the right heel with a depth of 1.3 mm. No microsatellitosis. 1 of 2 inguinal sentinel lymph nodes were involved, 0.02 mm deposit with no extracapsular extension. 0/1 popliteal lymph nodes [id number]/9/2021 - Routine Follow up. Reports that he is doing very well. heel wound has contracted well except for a small ulcer the size of a pencil eraser. No significant pain. No groin swelling.Recent ultrasound performed. I will need to obtain the images to evaluate the morphology of these nodes. Continues on immunotherapy with Dr. Souza. New changes in thyroid function, renal function, and right eye vision that are being evaluated.ROS:The patient has good performance status and is active daily.Cardiac: No chest pain, palpitations or heart attacksPulmonary: No asthma, bronchitis, or COPDHEENT: right eye vision changeGI: No constipation, diarrhea, or bloody bowel movementsGU: No changes in his urinary habits recentlyMusculoskeletal: Ambulating well.Skin: Healing heel wound with small residual ulcerHeme: No bleeding or thrombosis issuesEndo: hypothyroidLymph: No swollen lymph glandsPsych: No reported anxiety or depressionAll other systems reviewed and negativePhysical exam:General: No acute distress. Healthy appearing 81-year-old manHEENT: Moist oral mucosa, normocephalicCV: RRR, Vitals reviewedPulmonary: No respiratory distress. No use of accessory muscles. No audible wheezeGI: Soft, non-distended.Lymphatics: No palpable lymphadenopathy in the right popliteal or inguinal basinsSkin: 5x8mm ulceration remains on the posterior heel. Surrounding callous. No evidnece for surrounding pigmentation or nodularity.Neuro: No gross sensorimotor deficitsExtremities: No leg swelling KM-Qobypji-WnurblhWest River Health Services 4400 Work Phone: 05-07-2021 Note PROCEDURE DETAILS Preoperative Diagnosis: Right heel melanoma Postoperative Diagnosis: Right heel melanoma Surgeon: Dr. Bennett Resident/Fellow/Other Electronic Warfare Technician: Jose Procedure: Wide excision of melanoma, right heel, 2cm margins VAC Placement 5.5cm x 5.3cm wound Stonewall lymph node biopsy x2, right inguinal [place]wall lymph node biopsy x1, right popliteal Anesthesia: GETA Estimated Blood Loss: 20 Findings: Right heel melanoma excised with 2cm margins. Residual melanoma suspected. Popliteal and inguinal sentinel node drainage Specimens(s) Collected: yes, Right heel melanoma Short proximal 12:00; Long lateral 3:00, right inguinal lymph node x2, right popliteal lymph node Complications: None Additional Details: Right inguinal SLN #1 - blue, ct 32 SLN #2 - ct 60 Right popliteal SLN - ct 32 Patient Returned To/Condition: PACU/Satisfactory Operative Report: Indications: Mr. Epps is a 81-year-old male diagnosed with right heel melanoma. Biopsy demonstrated at least a 2.5 mm Breslow depth, nonulcerated specimen. The patient had residual disease surrounding this. He saw his medical oncologist Dr. Souza who understandably performed a PET/CT prior to surgery to rule out metastatic disease. This did not identify any distant metastatic disease and therefore the patient and I discussed options for local therapy with sentinel node biopsy. The patient also saw plastic surgery for consideration of wound closure options. Decision was made to perform an excision with 2 cm margins and placement of an Integra graft as well as a VAC dressing and to perform sentinel lymph node biopsy at the same time. The patient understood the risks, benefits, and alternatives to this recommendation. Informed consent was obtained. Lymphoscintigraphy and SPECT-CT was performed prior to the operation. Description of the procedure: The patient was brought to the operating room and placed supine on the table. Sequential compression devices were applied. General anesthesia was smoothly induced. Isosulfan blue was injected peritumorally in an intradermal fashion prior to the operation. The operative sites were prepped and draped in the usual fashion. Timeout was performed and preoperative antibiotics given. I began with the sentinel lymph node. Direction was turned to the right groin. Incision was made, dissection was carried deeply into the lymphatic basin. Using the probe, 1 sentinel lymph node was identified and excised at the location below the inguinal crease. An additional sentinel lymph node was identified above the inguinal crease and a separate transverse incision was made in this region so as to minimize the morbidity of an incision that would cross the crease. Once all the sentinel lymph nodes were removed, the wound was irrigated, hemostasis was assured, local anesthesia was infiltrated, and the wound was closed in layers. 3-0 vicryl was used for the Vik's fascia layer and the deep dermal layers. 4-0 monocryl was used on the skin. Surgical glue was applied as a dressing. At this point, the drapes were removed and the patient's position was changed to prone with all pressure points padded. He was reprepped and draped in sterile fashion. Due to the lymphoscintigraphy and SPECT-CT identifying a node in the popliteal fossa at the proximal aspect, an incision was made at the lateral aspect of the proximal popliteal fossa and dissection was carried into the lymphatic basin. Care was taken to avoid injury to the peroneal and sciatic nerves. Dissection identified the tibial artery and was able to isolate the lymphatic tissue surrounding this. 1 hot sentinel lymph node was identified in this region and excised in its entirety. Once all lymphatic tissue was removed the wound was irrigated and hemostasis was assured. Mati was used for additional hemostasis. The wound was then closed in layers with 3-0 Vicryl and the muscular fascial layer as well as in the deep dermal layer. 4-0 Monocryl was used in a subcuticular fashion for the skin. Skin glue was placed over top of the incision. I now directed my attention to the right heel. 2 cm. margins were marked around the primary melanoma. This resulted in a 5.5 x 5.3 cm wound markings. Skin incision was made with a knife and dissection carried to the deep subcutaneous tissues overlying the calcaneus.. The wound was irrigated and hemostasis was assured. At this point and Integra bilayer was obtained and placed over top of the wound. This was secured in place with 3-0 chromic sutures in interrupted fashion. This had good apposition to the base of the wound. An Adaptic was placed over top of this and then a wound VAC. The wound VAC was cut to fill the entirety of the wound and was secured in place with adhesive. At the end of the case the foot and VAC were wrapped with Kerlix and an Derrick bandage. The patient was put into a surg (more content not included)... [facility] 05-07[facility]2021 Note Pre-procedure Verifi cation and Time Out: Pre-Procedure Verification and Time Out: Procedure Locationprocedure area HUDDLE - Pre-procedure Verificationcompleted TIME OUT - Final Verificationcompleted DEBRIEFcompleted General Information: Anesthesia Critical Care: Non-Anesthesia Date/Time of Procedure: 07-May-2021 Post-Procedure Diagnosis: Melanoma Procedure Name: Radiotracer injection for lymphoscintigraphy Findings: grossly normal anatomy Procedure performed by: Electronic Warfare Technician(s): none Estimated Blood Loss (mL): none Specimen: no Indication(s): Melanoma lymphoscintigraphy Informed Consent: verbal consent obtained Procedure Details: Procedure Details: After obtaining verbal informed consent, timeout was performed. The dose of radiotracer was confirmed at 500 Ci in 0.4 mL of solution. The patient had EMLA placed on the heel for 5 minutes prior to the injection. The peritumoral skin was then cleansed with alcohol and 4 sites of injection were performed. Due to discomfort in this particular area, I suspect that 0.3 mL of the solution was able to be injected successfully. After the procedure the patient was in no distress. 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 Mr. Epps had a PET/CT Scan done on 04/22/21 with following assessment- 1. ABNORMAL EXAMINATION INDICATIVE OF MALIGNANT VIABLE NEOPLASM. 2. 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 3. No other quantitatively significant hypermetabolic abnormalities are noted. There is no definitive scintigraphic evidence of distant metastatic disease. Mr. Epps discussed treatment plan options with his oncologic surgeon, Dr. Charles Bennett, and has elected to have a wide excision of his right heel melanoma along with a sentinel lymph node biopsy for staging as recommended. Mr Epps states to otherwise be in his usual state of health with no recent fever, illness, hospitalizations, or injuries. Denies problems with anesthesia in the past such as PONV, prolonged sedation, awareness, dental damage, aspiration, cardiac arrest, difficult intubation, or unexpected hospital admissions. 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 Social History , father of 2 daughters. Former light cigarette smoker quit over 40 years ago. Allergies: No Known Allergies: Medications Prior to Admission: see EMR. Review of Systems: Eyes: COMMENTS: Glasses Cardiac: COMMENTS: Hypertension Gastrointestinal: COMMENTS: Gerd - stable on daily omeprazole taken in the evening. Genitourinary: COMMENTS: h/o prostate cancer treated with brachytherapy Musculoskeletal: COMMENTS: Osteoarthritis multiple sites, bilateral knee pain Skin: COMMENTS: Melanoma right heel - see HPI Allergic/Immunologic: COMMENTS: Seasonal allergies All Other Systems: All other systems reviewed and are negative Objective: Objective Information: Vitals reviewed and stable. Physical Exam by System: Constitutional: Alert/oriented x3, no distress Eyes: PERRL ENMT: pharynx clear no erythema or exudate noted Head/Neck: Normocephalic, neck supple, no apparent injury, thyroid without mass or tenderness, no carotid bruits detected Respiratory/Thorax: CTAB Cardiovascular: Regular rate and rhythm, no murmurs detected Gastrointestinal: Soft, non-tender, no rebound tenderness or guarding, no masses palpable Genitourinary: defer Musculoskeletal: No gross deformities Extremities: normal extremities, no pedal edema noted, DP pulses palpable Neurological: cranial nerves grossly intact Breast: defer Lymphatic: defer Psychological: Appropriate mood and behavior Skin: Warm and dry, no lesions, no rashes, good color Recent Lab Results: Results: I have reviewed these laboratory results: Coronavirus 2019, Screen Asymptomatic 05-May-2021 08:44:00 ResultValue Fluid Source Nasal, Nasopharyngeal Coronavirus 2019,PCR NOT DETECTED Reference Range: Not Detected . This assay is designed to detect the N, ORF1ab and/or S genes of SARS-CoV-2 via nucleic acid amplification. A Negative (NOT DETECTED) result does not preclude 2019-nCoV infection since the adequacy Assessment and Plan: Impression 1: Right heel acral lentiginous melanoma Plan for Impression 1: Wide excision right heel melanoma with sentinel lymph node biopsy and VAC placement Plan for Impression 2: Records reviewed including any recent labs +/or EKG. Patient evaluated, and record sent to anesthesia. Signatures/Attestation/Certificatio n: Note Completion: I am a: Advanced Practice Provider Attending Only - Shared Visit with Advanced Practice ProviderThis is a shared visit. I have reviewed the Advanced Practice Providers encounter note, approve the Advanced Practice Providers documentation, and provide the following additional information from my personal encounter. Comments/ Additional Findings Plan for Wide excision right heel melanoma and SLNB. Integra graft, and VAC placement. The [id number] had a PET/CT that did not identify distant disease. He was seen by Dr. Penaloza in Plastic Surgery for consideration of wound closure options. The (more content not included)... [facility] 04-12-2021 History of Present illness Narrative Evaluate right heel, H/O malignant melanoma of right heel. Combo case with Dr. Beltran.Patient presents for discussion of reconstructive options. He has diagnosis of malignant melanoma which will require excision by Dr. Beltran. He presents for review of surgical options. In brief this has been growing over the last months to year and biopsy shows lesion that will require resection with wide margins. He is otherwise quite healthy and active.He is a non smokerConstitutional: Patient is in no acute distress, conversant , well groomedEyes: anicteric sclerae, moist conjunctivae, EOMIENT/Face: Mucous membranes moist, Nares patent without evidence of external obstructionNeck: Trachea midline; Full range of motion at neckLungs: normal respiratory effort, no wheezing or abnormal breath sounds on room airMSK: No contractures or spasticity of upper or lower extremities, no gross muscle wasting noted in upper or lower extremitiesSkin: Normal temperature, turgor and texture; no lesions noted other than described, heel lesion with small area of ulceration, pigment changes noted, he has no other surgical scars on lower leg or footPsych: Appropriate affect, no aberrant thought process on discussion of primary complaintsDiagnosis: heel melanomaPlanned Intervention:We discussed options for reconstruction including secondary intention, grafting and flaps. I will discuss more with Dr. Bennett and will likely plan for a staged reconstruction. I will have the patient back in office prior to definitive reconstruction.A total of 30 minutes were spent with the patient during this encounter and over half of that time was spent on counseling and coordination of care. This included face to face time and non face to face time on day of visit reviewing medical history and chart.The indications and contraindications for the proposed intervention were discussed with the patient. The natural history of pathology if untreated was also reviewed with the patient. The option for no intervention was discussed with the patient, including the likely course if no intervention was performed.Risks of the intervention including bleeding, infection, damage to neurovascular structures, need for revision or re-operation were discussed. Risks of anesthesia up to and including mortality were reviewed. [facility] Work Phone: 03-24-2021 History of Present illness Narrative Mr. Epps is a 81-year-old male referred by Dr. 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 The patient reports that he has had a lesion on his heel for about a year that was treated as a plantar wart by his clock and watch hands painter. Due to lack of healing and an episode of bleeding 3 months ago, this was treated with biopsy and Curettage. The biopsy returned as malignant melanoma of at least 2.5 mm in depth. Ulceration was not identified although this was difficult to assess in the setting of prior treatments. Currently he has a 2 x 2.3 cm wound on his heel that is superficial and has been healing well. There does appear to be some residual pigmentation surrounding this biopsy site. The patient has not seen a wind tunnel mechanic but denies any other lesions of concern on his lower extremity or elsewhere on his body.Surgery 05/07/2021 wide excision right heel melanoma with a 2 cm margin, Integra graft placement, VAC placement. Right inguinal sentinel lymph node biopsy.Pathology residual melanoma at the right heel with a depth of 1.3 mm. No microsatellitosis. 1 of 2 inguinal sentinel lymph nodes were involved, 0.02 mm deposit with no extracapsular extension. 01 popliteal lymph nodes involved7/ wound check. The patient returns reporting improvement in his right groin swelling and erythema. Additionally his wound has been managed with a wound VAC on his heel which has not had any significant complications. He is very interested to have the VAC removed and be done with that form of therapy. He continues to work with Dr. Souza who will be treating with adjuvant immunotherapyROS:The patient has good performance status and is active daily.Cardiac: No chest pain, palpitations or heart attacksPulmonary: No asthma, bronchitis, or COPDHEENT: Seasonal allergies that cause sneezing fits every morningGI: No constipation, diarrhea, or bloody bowel movementsGU: No changes in his urinary habits recentlyMusculoskeletal: The patient continues with the surgical boot and VAC dressingSkin: Groin redness and swelling has resolved. Small swelling at the drain siteHeme: No bleeding or thrombosis issuesLymph: No swollen lymph glandsPsych: No reported anxiety or depressionAll other systems reviewed and negativePhysical exam:General: No acute distress. Healthy appearing 81-year-old manHEENT: Moist oral mucosa, normocephalicCV: RRR, Vitals reviewedPulmonary: No respiratory distress. No use of accessory muscles. No audible wheezeGI: Soft, non-distended.Lymphatics: Small swelling in the right groin without tenderness or erythema.Skin: The VAC was taken down and the heel wound was evaluated. The base of the wound is healing very well. He has a good base of granulation without evidence of infection. Redressed with vaseline gauzeNeuro: No gross sensorimotor deficitsExtremities: No leg swelling [facility] Work Phone: 03-23-2021 History of Present illness Narrative Mr. Epps is a 81-year-old male referred by Dr. 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 The patient reports that he has had a lesion on his heel for about a year that was treated as a plantar wart by his clock and watch hands painter. Due to lack of healing and an episode of bleeding 3 months ago, this was treated with biopsy and Curettage. The biopsy returned as malignant melanoma of at least 2.5 mm in depth. Ulceration was not identified although this was difficult to assess in the setting of prior treatments. Currently he has a 2 x 2.3 cm wound on his heel that is superficial and has been healing well. There does appear to be some residual pigmentation surrounding this biopsy site. The patient has not seen a wind tunnel mechanic but denies any other lesions of concern on his lower extremity or elsewhere on his body.Surgery 05/07/2021 wide excision right heel melanoma with a 2 cm margin, Integra graft placement, VAC placement. Right inguinal sentinel lymph node biopsy.Pathology residual melanoma at the right heel with a depth of 1.3 mm. No microsatellitosis. 1 of 2 inguinal sentinel lymph nodes were involved, 0.02 mm deposit with no extracapsular extension. 01 popliteal lymph nodes involved06/17/2021 wound check. The patient returns reporting improvement in his right groin swelling and erythema. Additionally his wound has been managed with a wound VAC on his heel which has not had any significant complications. He is very interested to have the VAC removed and be done with that form of therapy. He continues to work with Dr. Souza who will be treating with adjuvant immunotherapyROS:The patient has good performance status and is active daily.Cardiac: No chest pain, palpitations or heart attacksPulmonary: No asthma, bronchitis, or COPDHEENT: Seasonal allergies that cause sneezing fits every morningGI: No constipation, diarrhea, or bloody bowel movementsGU: No changes in his urinary habits recentlyMusculoskeletal: The patient continues with the surgical boot and VAC dressingSkin: Groin redness and swelling has resolved. Small swelling at the drain siteHeme: No bleeding or thrombosis issuesLymph: No swollen lymph glandsPsych: No reported anxiety or depressionAll other systems reviewed and negativePhysical exam:General: No acute distress. Healthy appearing 81-year-old manHEENT: Moist oral mucosa, normocephalicCV: RRR, Vitals reviewedPulmonary: No respiratory distress. No use of accessory muscles. No audible wheezeGI: Soft, non-distended.Lymphatics: Small swelling in the right groin without tenderness or erythema.Skin: The VAC was taken down and the heel wound was evaluated. The base of the wound is healing very well. He has a good base of granulation without evidence of infection. Redressed with vaseline gauzeNeuro: No gross sensorimotor deficitsExtremities: No leg swelling [facility] Work Phone: 03-04-2021 History of Present illness Narrative Mr. Epps is a 81-year-old male referred by Dr. 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 The patient reports that he has had a lesion on his heel for about a year that was treated as a plantar wart by his clock and watch hands painter. Due to lack of healing and an episode of bleeding 3 months ago, this was treated with biopsy and Curettage. The biopsy returned as malignant melanoma of at least 2.5 mm in depth. Ulceration was not identified although this was difficult to assess in the setting of prior treatments. Currently he has a 2 x 2.3 cm wound on his heel that is superficial and has been healing well. There does appear to be some residual pigmentation surrounding this biopsy site. The patient has not seen a wind tunnel mechanic but denies any other lesions of concern on his lower extremity or elsewhere on his body.Surgery 05/07/2021 wide excision right heel melanoma with a 2 cm margin, Integra graft placement, VAC placement. Right inguinal sentinel lymph node biopsy.Pathology residual melanoma at the right heel with a depth of 1.3 mm. No microsatellitosis. 1 of 2 inguinal sentinel lymph nodes were involved, 0.02 mm deposit with no extracapsular extension. 01 popliteal lymph nodes involved06/03/2021 post hospital visit. The patient was admitted to the hospital after her last clinic visit due to infection of his right groin. A seroma catheter was placed and he was treated with IV antibiotics. Cultures returned as MRSA and he was discharged home on Bactrim to which this was sensitive. The seroma catheter was putting out less than 15 mL/day and the erythema of the surrounding tissues has improved. The patient does report that he has occasional fevers up to 101F and was seen in the emergency room recently for evaluation of this noting a negative work-up per the patient's report.The patient continues with heel VAC dressings twice a week.The patient also saw Dr. Souza in medical oncology who will plan to start adjuvant immunotherapy after complete resolution of the groin infection.ROS:The patient has good performance status and is active daily.Cardiac: No chest pain, palpitations or heart attacksPulmonary: No asthma, bronchitis, or COPDHEENT: Seasonal allergies that cause sneezing fits every morningGI: No constipation, diarrhea, or bloody bowel movementsGU: No changes in his urinary habits recentlyMusculoskeletal: The patient continues with toe-touch weightbearing on the right lower extremity although he is allowed to put some weight on the heel.Skin: Groin redness and swelling has decreased. Right groin seroma catheterHeme: No bleeding or thrombosis issuesLymph: No swollen lymph glandsPsych: No reported anxiety or depressionAll other systems reviewed and negativePhysical exam:General: No acute distress. Healthy appearing 81-year-old manHEENT: Moist oral mucosa, normocephalicCV: RRR, Vitals reviewedPulmonary: No respiratory distress. No use of accessory muscles. No audible wheezeGI: Soft, non-distended.Lymphatics: The patient had a seroma catheter removed today due to low output. His surrounding tissues still have a small amount of fullness along the prior incision however no fluctuance. This appears to be induration. The surrounding skin is resolving its redness and is much better than at the time of discharge from the hospitalSkin: The VAC was taken down and the heel wound was evaluated. The base of the wound is healing very well. He has a good base of granulation without evidence of infection.Neuro: No gross sensorimotor deficitsExtremities: No leg swelling [id number] Work Phone: Evaluation note Skin: Right groin wi th worsening area of erythema and induration, tender to palpation. Right groin Seroma-Cath with serous output. Right groin incision well healed. Right popliteal incision well healed. Right heel with wound vac in place, holding suctionEyes: EOMI, sclera anictericRespiratory/Thorax: Nonlabored respirations on RAExtremities: No LE edemaGastrointestinal: Soft, nontender, nondistendedMusculoskeletal: MAENeurological: No focal deficitsCardiovascular: RRRConstitutional: Awake, alert, uncomfortable [facility] Evaluation note N/A Dept. of Dermato logy Evaluation note Skin: warm and dryEy es: clear scleraENMT: moist mucus membranesHead/Neck: midline tracheaRespiratory/Thorax: L chest jersey wiithout erythema, crepitus, or fluctuance. Thin serosang output in drain. Breathing and conversation unlaboured on room air.Extremities: no deformities, no edema. R groin incision well approximated w/o erythema, crepitus, or fluctance. c/d/i. R groin FARNAZ with serous output.Gastrointestinal: soft, nontender, non distendedGenitourinary: deferredMusculoskeletal: MAENeurological: AOx4, no focal deficitsPsychological: appropriate mood and affectCardiovascular: regularConstitutional: no acute distress, resting comfortably in bed. pleasant, conversant. [facility] Diagnosis PAF (paroxysmal atrial fibrillation) (HCC) Atrial fibrillation [facility] Narr[facility] No data available for this section [facility] Discharge instructions* Activity:activity as tolerated. May shower. May not return to school/work Instructions:. May not drive while taking narcotics. No pushing, pulling, or lifting objects greater than 10 pounds. Weight-bearing Instructions: weight-bearing as tolerated. * Wound Care 1:Wound Site: right heelChange Dressin times, a weekCleanse With: soap and waterCover With: wound vacInstructions: no lotions, creams, or tub soaks * VAC 1:Vac Site: right heelChange Dressin times a weekContact Layer: AdapticDressing Type: VAC granu foam dressingTarget Pressure: 125VAC Cycle: continuousWound Measurements: 5.0x5.5Date of Wound Measurements: 05/27/21 * Drain/Tube Care 1:Type: FARNAZ (Donavan Dawkins)Site: right groinSuction: continuous, selfCleanse With: soap and waterDress With: 2x2 gauze dressingOther Instructions: To empty the drain, open the cap, tipinto cup and squeeze to empty. Squeeze drain flat then replace the cap. Please empty the drain and record its output _3_ times a day and bring these numbers to your follow up appointment. The drain output should decrease and the color of the drainage should become electric refrigerator servicer (red to pink to yellow). This drain is sutured into place. Keep the area around the drain clean and dry. You may use mild soapand water to cleanse around the drain. It is ok to shower; do not soak in a tub. Change the gauze around the drain as needed. Call the office if you notice drastic changes in drain output, bloody drain output, or redness/drainage around insertion site. * Home Care Face to Face Certification:Home Care Services Needed: yesHome Care Agency: Other (with phone number), [facility] Ordered: RN/LPNFace to Face Encounter Completed: yesDate of Encounter: [id number] Necessity for Homecare (based on clinical findings):Short-term nursing care needed for incision/drain care s/p WE c/b groin seroma.Homebound Status: homeboundHomebound Due to: Pt is temporarily homebound requiring wound care and drain care.Face to Face Completed and Home Care Orders Reviewed: I certify that this patient is under my care. I have reviewed the information included in the face to face and certify that the home care services ordered are medically necessary for this patient. * Home Care Skilled Service:Home Care Skilled Service: assessment, drain care, follow up teaching, wound careAssessment: [facility] Visit: day after dischargeDrain Care: [facility] Visit: dayafter dischargeTeaching: [facility] Visit: day after dischargeWound Care: [facility] Visit: day after discharge * Follow Up Appointment 1:Physician/Dept/Service: Dr Stoddard for Referral: follow up appointmentScheduled Date/Time: 03-Jun-2021 14:30Location: [facility]: [address] [place] [address]Phone Number: [phone] [facility] No data available for this section [facility] Progress note No data available for this section [facility] Reason for referral (narrative)* Name Reason for referral FELICIANO WIGGINS Dept. of Dermatology Reason for referral (narrative)* Reason for Referral: incision and drainage of left sternoclavicular abscess, debridement of left clavicle and sternum [facility] Summary Purpose Family History No Family History Records FoundThere may be information available, but it has not been provided by the sender.No Family History Records FoundNo Family History Records FoundNo Family History Records FoundNo Family History Records FoundNo Family History Records Found Advance Directives No Advanced Directives Records FoundThere may be information available, but it has not been provided by the sender.No Advanced Directives Records FoundNo Advanced Directives Records FoundNo Advanced Directives Records FoundNo Advanced Directives Records FoundNo Advanced Directives Records Found Instructions Instruction Description Start Date Patient advised to follow-up with Primary Care Physician for BMI management. Assessments There may be information available, but it has not been provided by the sender. Review of System There may be information available, but it has not been provided by the sender. Chief Complaint Evaluate right heel, H/O malignant melanoma of right heel. Combo case with Dr. Beltran.Evaluate right heel, H/O malignant melanoma of right heel. Combo case with Dr. Beltran.Right heel melanomaRight heel melanomaRight heel melanoma Right heel melanomaRight heel melanomaRight heel melanomaRight heel melanoma Right heel melanomaRight heel melanomaRight heel melanoma* Right heel melanoma * Right inguinal silvia recurrence * Seroma after drain removal Drain check following seromaDrain check following seroma Additional Source Comments (unrecognized sect ion and content) No Status Records FoundNo Status Records FoundNo Status Records FoundNo Status Records FoundNo Status Records FoundNo Status Records Found INFORMATION SOURCE (unrecogn ized section and content) DATE CREATED AUTHOR AUTHOR'S ORGANIZ ATION 05/16/2021 [facility] DATE CREATED AUTHOR AUTHOR'S ORGANIZ ATION 03/13/2023 [facility] DATE CREATED AUTHOR AUTHOR'S ORGANIZ ATION 03/23/2023 [facility] DATE CREATED AUTHOR AUTHOR'S ORGANIZ ATION 11/12/2023 [facility] ([place]) DATE CREATED AUTHOR AUTHOR'S ORGANIZ ATION 01/26/2024 [facility] [employer] [facility] <item><item><item> Privacy Markings (unrecogniz ed section and content) Section Author: Dina Gan PROHIBITION ON REDISCLOSURE OF CONFIDENTIAL INFORMATION This notice accompanies a disclosure of information concerning a client made to you with the consent of such client. Section Author: Dina Gan PROHIBITION ON REDISCLOSURE OF CONFIDENTIAL INFORMATION This notice accompanies a disclosure of information concerning a client made to you with the consent of such client. Section Author: Dina Gan PROHIBITION ON REDISCLOSURE OF CONFIDENTIAL INFORMATION This notice accompanies a disclosure of information concerning a client made to you with the consent of such client. Patient Care team informatio n (unrecognized section and content) [employer] Relationship Specialty Start Date End Date Gus Dolan [address] [facility] [address] [place] [address] PCP - General 03/23/17 Aaron Baez MD [address] [place] [address] Consulting Physician Internal Medicine Cardiovascular Disease 11/17/22 Reason for Visit (unrecogniz ed section and content) Specialty Diagnoses / Procedures Referred By Contact Referred To Contact Cardiac Electrophysiology / Cardiology Diagnoses ventricular premature depolarization/PAF - referral Dr. Baez Procedures NEW PATIENT Aaron Baez MD [address] [place] [address] Kilo Dolan MD [address] [place] [address] Referral ID Status Reason Start Date Expiration Date Visits Re quested Visits Authorized [id number] Closed 11/09/2022 05/08/2023 1 1 FOR RECORDS PERTAINING TO PATIENTS WHO ARE OR HAVE BEEN ENROLLED IN A CHEMICAL DEPENDENCY/SUBSTANCEABUSE PROGRAM, SOME INFORMATION MAY BE OMITTED. This clinical summary was aggregated from multiple sources. Caution should be exercised in using it in the provision of clinical care. This summary normalizes information from multiple sources, and as a consequence, information in this document may materially change the coding, format and clinical context of patient data. In addition, data may be omitted in some cases. CLINICAL DECISIONS SHOULD BE BASED ON THE PRIMARY CLINICAL RECORDS. [employer] provides no warranty or guarantee of the accuracy or completeness of information in this document.
[2024-02-11] MEDS: 0.9% Saline Lock 10 ML Syringe IV (08:20)
== END | disposition home or self-care (01) ==
LOC: CT 07:57
PROVIDERS: PCP Family Medicine; Referring Provider Internal Medicine Hematology & Oncology; Visit Provider Internal Medicine Hematology & Oncology
DX: C43.71 Malignant melanoma of right lower limb, including hip (principal)
CPT/HCPCS: 71260; 74177; Q9967; A4216

== ENCOUNTER → 2024-05-11 | Outpatient (CLI) | payer MEDICARE, SELFPAY ==
--- NOTE | 2024-05-11 14:01 | RAD_ITS ---
STUDY: X-RAY - LEFT KNEE REASON FOR EXAM: Male, 84 years old. Injury and pain. TECHNIQUE: 2 view(s) of the knee. COMPARISON: None. FINDINGS: Marked osteopenia. Moderate to marked arthrosis of the medial compartment with osteophytes and subchondral sclerosis. Mild arthrosis of the lateral compartment. Mild arthrosis of the patellofemoral compartment. Tripartite patella. Small joint effusion. RAD/Knee 1 or 2 Views IMPRESSION: Osteopenia with tricompartmental arthrosis, most marked medially and tripartite patella, a normal variant. Small joint effusion. No acute finding. Electronically Signed: Carlos Robledo MD at 14:54 EDT ,
== END | disposition home or self-care (01) ==
LOC: RAD 14:01
PROVIDERS: PCP Family Medicine; Referring Provider Nurse Practitioner Family; Visit Provider Nurse Practitioner Family
DX: S89.92XA Unspecified injury of left lower leg, initial encounter (principal); M25.562 Pain in left knee
CPT/HCPCS: 73560

== ENCOUNTER → 2024-05-29 | Outpatient (CLI) | payer MEDICARE, SELFPAY ==
--- NOTE | 2024-05-29 13:51 | CT_ITS ---
STUDY: CT CHEST, ABDOMEN T PELVIS WITH CONTRAST REASON FOR EXAM: Male, 84 years old. Metastatic melanoma; assess response to treatment RADIATION DOSAGE (If Supplied By Facility): CTDIvol = ( 19.75 ) mGy, DLP = ( 1957.56 ) mGycm TECHNIQUE: Transaxial imaging was performed following intravenous administration of IV 100mL Isovue-300. The protocol utilizes one or more of the following dose reduction techniques: automated exposure control, adjustment of mA and/or kV according to patient size,and/or use of iterative reconstruction technique. COMPARISON: No relevant prior comparison study available FINDINGS: CHEST Minimal nodular changes in the right lower lobe measuring up to 2 mm. No evidence of focal pulmonary nodules. Mild atelectasis or scarring right lower lobe. No focal infiltrate is seen. There is no demonstrated pleural abnormality. Normal heart and pericardium. There are calcifications of the coronary arteries. Few small normal-sized nodes. Prominent right hilar node measuring about 1.5 cm and left hilar node measuring about 1.3 cm. No evidence of central pulmonary embolism. Tortuosity of the thoracic aorta without evidence of aneurysm. Mild degenerative changes of the spine. ABDOMEN Multiple liver lesions concerning for metastases, the largest measures about 2.8 cm. Normal gallbladder and extrahepatic biliary system. Unremarkable spleen. Small adjacent splenule. Normal pancreas. Normal bilateral adrenal glands. Simple cyst in the upper pole of the right kidney measuring about 2 cm for which no further follow-up exam is needed. No evidence of hydronephrosis. Normal visualized stomach. Normal small intestine. Colonic diverticulosis without evidence of acute diverticulitis. The appendix is visualized and appears normal. There is diffuse atherosclerotic calcification of the abdominal aorta with elongation and tortuosity, but without a demonstrated aneurysm. Normal inferior vena cava. Normal retroperitoneum. There is a right-sided inguinal hernia containing adipose tissue. Degenerative changes of the spine. PELVIS Impression thickening of the bladder wall likely due to underdistention. Cystitis cannot be excluded. Radiation seeds in the region of the prostate. There is no pelvic lymphadenopathy or mass lesion. CT/CT Chest, Abd, Pel w/Contrast IMPRESSION: 1. Multiple liver lesions concerning for metastases. 2. Slightly prominent bilateral hilar nodes.. 3. Diverticulosis without evidence of acute diverticulitis. 4. Thickening of the bladder wall likely due to underdistention. Cystitis is less likely. 5. Radiation seeds in the region of the prostate. Electronically Signed: Lizandro Aguilar MD at 15:08 EDT ,
[2024-05-29] MEDS: 0.9 % NaCl (Sterile) Posiflush 10 mL IV (14:25)
[2024-05-29] MEDS: 0.9% Saline Lock 10 ML Syringe IV ×2 (14:25→14:35)
== END | disposition home or self-care (01) ==
LOC: CT 13:51
PROVIDERS: PCP Family Medicine; Referring Provider Nurse Practitioner Family; Visit Provider Nurse Practitioner Family
DX: C43.71 Malignant melanoma of right lower limb, including hip (principal); C78.7 Secondary malignant neoplasm of liver and intrahepatic bile duct; C77.9 Secondary and unspecified malignant neoplasm of lymph node, unspecified; C43.9 Malignant melanoma of skin, unspecified
CPT/HCPCS: 71260; 74177; Q9967; A4216

== ENCOUNTER → 2024-06-02 | Outpatient (CLI) | payer MEDICARE, SELFPAY ==
--- NOTE | 2024-06-02 08:43 | NM_ITS ---
CLINICAL: 84-year-old male with history of primary prostate carcinoma and malignant melanoma. WHOLE BODY 99m Tc MDP RADIONUCLIDE BONE SCINTIGRAPHY COMPARISON: Previous whole body bone scintigraphy study dated 02/07/2024 FINDINGS: Following the intravenous administration of 25.4 mCi of 99m Tc MDP, whole body bone images reveal: 1. Increased tracer concentration is redefined in the left proximal clavicle and subtly asymmetrically apparent in the left sacroiliac joint. 2. Facilitated uptake remains apparent in the bilateral knees, the right-left mid and forefoot, the right and left wrist articulations, the left hand, the acromioclavicular and sternoclavicular compartments of both shoulders, the lateral glenohumeral compartment of the left shoulder, the 10th thoracic vertebra posteriorly on the left, the third through fifth lumbar vertebra, the mid to lower cervical spine posteriorly on the left. 3. The remaining skeletal structures are scintigraphically unremarkable with normal-appearing renal images and urinary bladder activity identified. NM/Bone Scan Whole Body IMPRESSION: 1. The increase in tracer uptake redefined in the left proximal clavicle is most consistent with trauma-fracture. Plain film radiography correlation may be of benefit. 2. Enhanced pharmaceutical demonstrated in the left sacroiliac joint may represent an inflammatory process. In the setting of known prostate carcinoma and malignant melanoma, correlation with plain film radiography is recommended. 3. Degenerative arthritis is defined in the right and left knee articulations, the bilateral mid and forefoot, the wrists bilaterally, left hand, both shoulders, the cervical, thoracic and lumbar spine. 4. Overall compared to the post recent whole body bone scintigraphy study dated 02/07/2024, there is minimal interval change. The film x-ray may be of assistance in the further evaluation of the left proximal clavicle and left sacroiliac joint. Electronically Signed: Mamadou Blunt DO at 10:24 EDT ,
[2024-06-02] MEDS: 0.9% Saline Lock 10 ML Syringe IV (08:58)
== END | disposition home or self-care (01) ==
LOC: NM 08:42
PROVIDERS: PCP Family Medicine; Referring Provider Nurse Practitioner Family; Visit Provider Nurse Practitioner Family
DX: C43.71 Malignant melanoma of right lower limb, including hip (principal); C78.7 Secondary malignant neoplasm of liver and intrahepatic bile duct; C77.9 Secondary and unspecified malignant neoplasm of lymph node, unspecified; C43.9 Malignant melanoma of skin, unspecified
CPT/HCPCS: 78306; A9503; A4216

== ENCOUNTER 2024-06-29 11:30 | Outpatient (RCR) | payer MEDICARE, SELFPAY ==
--- NOTE | 2024-05-22 12:58 | HP.PTEVAL ---
Patient's Visit Information Visit Information Visit Information: EMPERATRIZ EPPS is a 84 year old M referred to Physical Therapy by Dr. Anurag Dolan MD with a diagnosis of LEFT KNEE OSTEOARTHRITIS. Date of Evaluation: 05/22/24 Physical Therapist: Kodak Haines PT, Cert MDT, OCS Visit Plan Frequency: 2x /Week Duration: 4 Weeks Plan: PT INTERVENTIONS AQUATIC THERAPY WITH ROM ,FLEXABILITY ,STRENGTHENING QUADS/HAMS/HIP AND ACTIVITY MODIFICATION Subjective Subjective: This 84 y/o male presents physical therapy with left knee OA. Patient has knee pain for many years. 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 Patient seen DR recommended Aquatic PT . Patient pain global knee described as ache . Aggravating factors walking/standing and has difficulty with stairs. Patient is unable to squat /kneeling. Patient denies paresthesia/tingling. Patient Patient sleeping okay. Patient goals to decrease pain and walk better. Patient condition affects QOL and function. SOCIAL: lives assisted living VOVATION: retired Pain Left Knee: Pain Intensity (Out of 10): 6 Pain Intensity Range: 10 Right Knee: Pain Intensity (Out of 10): 4 Pain Intensity Range: 10 Objective Objective: POSTURE:mild forward hips/knees flexed GAIT: reciprocal pattern antalgic gait PALAPTION: medial/lateral joint line NEURO: denies paresthesia/tingling AROM: supine left knee flexion 5 -110 degrees ,right knee 5-125 degrees MMT: ( peak force) quas left 20.9 ,right 22.8 ,hamstrings left 13.8 ,right 10.7 ,hip flexion right 21.1 ,left 22.9 STAIRS: one step at a time Balance/Special Test Scores Lower Extremity Functional Score: 21 Goals Goal 1:: Patient to be I with HEP for knee Goal Time Frame: 4-6 Weeks Goal 2:: Patient to improve AROM supine knee flexion by 5-10 degrees to improve gait Goal Time Frame: 4-6 Weeks Goal 3:: Patient to demonstrate 40% improvement with less pain and improved function Goal Time Frame: 4-6 Weeks Goal 4:: Patient to improve peak force quads/hams by 5-10 # to improve function Goal Time Frame: 4-6 Weeks Goal 5:: Patient to improve LFES score by 5 points to improve QOL Goal Time Frame: 4-6 Weeks Rehabilitation Potential Physical Therapy Diagnosis: This patient has left knee pain due to DJD with pain decreased ROM ,weakness quads/hams ,impairs gait and stairs thus benefit from skilled PT Rehabilitation Potential: Good Anticipated Interventions Patient/Client Instruction: Educate patient on: Condition and Plan of Care For the Purpose of:: To decrease pain, To increase ROM, To improve muscle performance and motor function, To improve ability to perform ADL's, To increase tolerance to activity/condition/position, To improve ability of physical actions for home/community/work/leisure, To improve health of tissue, To decrease soft tissue restriction, To increase flexibility/ROM, To improve endurance, To improve balance and To improve tolerance to ADL's Therapeutic Exercise to Include: Strength training, Endurance training, Balance training, Postural training, In an aquatic setting, Passive ROM and Dynamic Lumbar Stabilization For the Purpose of:: To decrease pain, To increase ROM, To improve nutrient delivery to tissue, To increase oxygenation perfusion, To improve muscle performance and motor function, To increase tolerance to activity/condition/position, To improve ability of physical actions for home/community/work/leisure, To improve gait and locomotor functions, To improve health of tissue, To decrease soft tissue restriction and To increase flexibility/ROM Text: Thank you for the opportunity to evaluate your patient. For Medicare and Medicare HMO plans, please review the plan of care and approve it. It will need to be FAXED BACK to us at [phone] for Medicare purposes. For Medicare only, by signing this I certify the plan of care. Please let me know if there are questions or concerns regarding this plan of care. Physician Signature: Date:
--- NOTE | 2024-06-29 11:53 | HP.PTDCSUM ---
Discharge Summary D/C summary: It has been my pleasure to treat EMPERATRIZ EPPS referred by Dr. Anurag Dolan MD, with the diagnosis of LEFT KNEE OSTEOARTHRITIS for a total of 10 visit(s). Discharge Date: 06/29/24 Please see the following information for a summary of their discharge status. Subjective Subjective: Patient states knee is better Pain Left Knee: Pain Intensity (Out of 10): 2 Right Knee: Pain Intensity (Out of 10): 1 Overall Improvement % Improvement: 20 Objective Objective/Function: POSTURE:mild forward hips/knees flexed GAIT: reciprocal pattern antalgic gait PALAPTION: medial/lateral joint line NEURO: denies paresthesia/tingling AROM: supine left knee flexion 5 -125 degrees ,right knee 5-130 degrees MMT: ( peak force) quas left 54,7 ,right52.8 ,hamstrings left 43.8 ,right 44.8 ,hip flexion right 38.1 ,left 32.9 STAIRS: one step at a time Goals Goal 1:: Patient to be I with HEP for knee Goal Progress: Goal Met Goal 2:: Patient to improve AROM supine knee flexion by 5-10 degrees to improve gait Goal Progress: Goal Met Goal 3:: Patient to demonstrate 40% improvement with less pain and improved function Goal Progress: Goal Met Goal 4:: Patient to improve peak force quads/hams by 5-10 # to improve function Goal Progress: Goal Met Goal 5:: Patient to improve LFES score by 5 points to improve QOL Goal Progress: Goal Met Plan Plan: D/C D/C Information Discharge Comments: HEP d/c sentence: If there are questions or concerns regarding this patient's physical therapy, please feel free to call me at [phone]. Thank you for the referral of this patient. Sincerely, Kodak Haines, PT, Cert MDT, OCS Balance/Gait/Functional tests Balance/Special Test Scores Lower Extremity Functional Score: 43 Improvement % Improvement: 20
== END 2024-06-29 19:00 | disposition home or self-care (01) ==
LOC: PT 11:30
PROVIDERS: PCP Family Medicine; Referring Provider Family Medicine; Visit Provider Family Medicine
DX: M17.12 Unilateral primary osteoarthritis, left knee (principal)
CPT/HCPCS: 97113; 97162; 97530

== ENCOUNTER → 2024-08-30 | Outpatient (CLI) | payer MEDICARE, SELFPAY ==
--- NOTE | 2024-08-30 13:51 | CT_ITS ---
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 currently on immunotherapy TECHNIQUE: Helically acquired images were obtained of the chest, abdomen and pelvis with intravenous contrast. This CT exam was performed using one or more of the following dose reduction techniques: automated exposure control, adjustment of the mA and/or kV according to patient size, and/or use of iterative reconstruction technique. CONTRAST: IV 100mL Isovue-300 COMPARISON: 05/29/2024 FINDINGS: CHEST: LUNGS AND PLEURAL SPACES: Unremarkable. No mass. No consolidation or edema. No pleural effusion or thickening. No pneumothorax. HEART: Unremarkable. Heart size is normal. No pericardial effusion. MEDIASTINUM: There are small mediastinal lymph nodes which are stable. Esophagus is unremarkable. No hiatal hernia. THYROID: Unremarkable. No thyroid lesions. ABDOMEN: LIVER: Multiple hypodense masses are again seen throughout the liver the largest measuring 2.8 cm. GALLBLADDER AND BILE DUCTS: Unremarkable. No calcified gallstones. No gallbladder distention or wall edema. No intra- or extrahepatic biliary ductal dilation. PANCREAS: Unremarkable. No focal cystic or solid mass. SPLEEN: Unremarkable. Normal size without focal cystic or solid mass. ADRENALS: Unremarkable. No nodules. KIDNEYS AND URETERS: There is a low-density mass on the right kidney compatible with a cyst which is stable. No follow-up imaging is necessary. No hydronephrosis. STOMACH AND BOWEL: Unremarkable. No stomach or bowel distention. No focal inflammatory change. PELVIS: APPENDIX: No evidence of acute appendicitis. BLADDER: Unremarkable. REPRODUCTIVE: There are radioactive seeds in the prostate gland. CHEST, ABDOMEN and PELVIS: INTRAPERITONEAL SPACE: Unremarkable. No ascites or other fluid collection. No free air. BONES/JOINTS: Unremarkable. No suspicious lytic or blastic abnormality. SOFT TISSUES: Unremarkable. No discrete abdominal or pelvic wall hernia. VASCULATURE: Unremarkable. Aorta is non-dilated. No aortic dissection. No obvious central pulmonary embolism although this study was not performed with the pulmonary embolism protocol. LYMPH NODES: See above. CT/CT Chest, Abd, Pel w/Contrast IMPRESSION: 1. Multiple low-density masses seen throughout the liver which are stable from the reference exam compatible with metastatic disease. 2. There are stable small mediastinal lymph nodes. There has been no significant change from the reference. Electronically Signed: Daryl Torres MD at 16:11 EDT ,
[2024-08-30] MEDS: 0.9% Saline Lock 10 ML Syringe IV (14:20)
== END | disposition home or self-care (01) ==
LOC: CT 13:51
PROVIDERS: PCP Family Medicine; Referring Provider Internal Medicine Hematology & Oncology; Visit Provider Internal Medicine Hematology & Oncology
DX: C43.9 Malignant melanoma of skin, unspecified (principal); C78.7 Secondary malignant neoplasm of liver and intrahepatic bile duct; C77.9 Secondary and unspecified malignant neoplasm of lymph node, unspecified; Z85.46 Personal history of malignant neoplasm of prostate
CPT/HCPCS: 71260; 74177; Q9967; A4216

== ENCOUNTER → 2024-09-05 | Outpatient (CLI) | payer MEDICARE, SELFPAY ==
--- NOTE | 2024-09-05 08:50 | NM_ITS ---
CLINICAL: 84-year-old male with history of primary prostate carcinoma and malignant melanoma. WHOLE BODY 99m Tc MDP RADIONUCLIDE BONE SCINTIGRAPHY COMPARISON: Previous whole body bone scintigraphy study dated 06/02/2024 FINDINGS: Following the intravenous administration of 27.1 mCi of 99m Tc MDP, whole body bone images reveal: 1. Persistent increased uptake remains apparent in the left proximal clavicle and left sacroiliac joint. 2. Facilitated radiopharmaceutical concentration remains apparent in the acromioclavicular and sternoclavicular compartments of both shoulders, the glenohumeral compartment of the left shoulder, the left wrist, both knee articulations, the bilateral midfoot and forefoot. 3. The remaining skeletal structures are scintigraphically unremarkable with normal-appearing renal images and urinary bladder activity identified. NM/Bone Scan Whole Body IMPRESSION: 1. The increase in tracer uptake redefined in the left proximal clavicle and left sacroiliac joint may be further investigated with plain film radiography if not previously obtained. 2. Degenerative arthritis is redemonstrated in the bilateral shoulders, both knees, the left wrist, the right-left midfoot and forefoot. Electronically Signed: Mamadou Blunt DO at 13:20 EDT ,
== END | disposition home or self-care (01) ==
LOC: NM 08:49
PROVIDERS: PCP Family Medicine; Referring Provider Internal Medicine Hematology & Oncology; Visit Provider Internal Medicine Hematology & Oncology
DX: C78.7 Secondary malignant neoplasm of liver and intrahepatic bile duct (principal); C77.9 Secondary and unspecified malignant neoplasm of lymph node, unspecified; C61 Malignant neoplasm of prostate; C43.9 Malignant melanoma of skin, unspecified
CPT/HCPCS: 78306; A9503; A4216

== ENCOUNTER 2024-09-14 09:22 | Outpatient (CLI) | payer MEDICARE, SELFPAY | END 2024-09-14 23:59 | disposition home or self-care (01) | LOC: MEDOUTP 09:22 | PROVIDERS: PCP Family Medicine; Referring Provider Urology; Visit Provider Urology | DX: C61 Malignant neoplasm of prostate (principal) | CPT/HCPCS: 36591; 84153; A4216 ==

== ENCOUNTER → 2025-01-08 | Outpatient (CLI) | payer MEDICARE, SELFPAY ==
--- NOTE | 2025-01-08 10:30 | NM_ITS ---
PROCEDURE: BONE SCAN WHOLE BODY REASON FOR EXAM: Metastatic melanoma. Assess response to therapy. TECHNIQUE: Whole-body bone scan with anterior and posterior views. Imaging at 3.5 hours. RADIOPHARMACEUTICAL: 27 mCi Technetium-99m MDP IV COMPARISON: Whole-body bone scan 09/05/2024. FINDINGS: Bones: Stable degenerative changes are seen about the knees, left wrist, spine, sacroiliac joints, sternoclavicular joints, and acromioclavicular joints. Stable nonspecific increased uptake at the proximal left clavicle. No new or worsened osseous uptake is seen. Kidneys: Normal activity is identified at both kidneys. NM/Bone Scan Whole Body IMPRESSION: Stable examination. No new or worsened abnormality is seen [facility]. Reading Location: [id number]
[2025-01-08] MEDS: 0.9% Saline Lock 10 ML Syringe IV (10:46)
== END | disposition home or self-care (01) ==
LOC: NM 10:28
PROVIDERS: PCP Family Medicine; Referring Provider Nurse Practitioner Family; Visit Provider Nurse Practitioner Family
DX: C43.71 Malignant melanoma of right lower limb, including hip (principal); C78.7 Secondary malignant neoplasm of liver and intrahepatic bile duct; C77.9 Secondary and unspecified malignant neoplasm of lymph node, unspecified
CPT/HCPCS: 78306; A9503; A4216

== ENCOUNTER → 2025-01-11 | Outpatient (CLI) | payer MEDICARE, SELFPAY ==
--- NOTE | 2025-01-11 07:16 | CT_ITS ---
EXAM: CT Chest, Abdomen and Pelvis With Intravenous Contrast CLINICAL INDICATION: TECHNIQUE: Axial computed tomography images of the chest, abdomen and pelvis with intravenous contrast. This CT exam was performed using one or more of the following dose reduction techniques: automated exposure control, adjustment of the mA and/or kV according to patient size, and/or use of iterative reconstruction technique. COMPARISON: CT Chest Abdomen Pelvis dated 08/30/2024 FINDINGS: CHEST: LUNGS AND PLEURAL SPACES: 1.0 cm nodule of the lingula, stable. No consolidation. No significant effusion. No pneumothorax. No areas lung emphysema. HEART: Unremarkable. No cardiomegaly. No significant pericardial effusion. No significant coronary artery calcifications. MEDIASTINUM: Scattered mediastinal lymph nodes some of which are upper limits of normal in size and are most likely reactive lymph nodes. Small esophageal hiatal hernia. ABDOMEN: LIVER: Multiple hypodense lesions, too small to characterize with a isodense lesion in the right hepatic lobe measuring up to 2.4 cm, stable. Fatty infiltration of the liver. GALLBLADDER AND BILE DUCTS: Unremarkable. No calcified stones. No ductal dilation. PANCREAS: Unremarkable. No ductal dilation. No mass. SPLEEN: Unremarkable. No splenomegaly. ADRENALS: Unremarkable. No mass. KIDNEYS AND URETERS: Bilateral hyperdense lesions of the kidneys, largest measuring up to 1.6 cm, likely cyst. No hydronephrosis. No solid mass. STOMACH AND BOWEL: Mild constipation. Colonic diverticulosis without acute diverticulitis. No obstruction. PELVIS: APPENDIX: No findings to suggest acute appendicitis. BLADDER: Unremarkable. No mass. REPRODUCTIVE: Unremarkable as visualized. CHEST, ABDOMEN and PELVIS: INTRAPERITONEAL SPACE: Unremarkable. No significant fluid collection. No free air. BONES/JOINTS: Unremarkable. No acute fracture. No dislocation. SOFT TISSUES: Bilateral inguinal hernias. VASCULATURE: Scattered calcified atherosclerotic disease of aorta. No aortic aneurysm. LYMPH NODES: See above. CT/CT Chest, Abd, Pel w/Contrast IMPRESSION: 1. Multiple hypodense lesions, too small to characterize with a isodense lesio n in the right hepatic lobe measuring up to 2.4 cm, stable. 2. Scattered mediastinal lymph nodes some of which are upper limits of normal in size and are most likely reactive lymph nodes. 3. Small esophageal hiatal hernia. 4. 1.0 cm nodule of the lingula, stable. 5. No significant change from the prior exam. 6. Colonic diverticulosis without acute diverticulitis. Reading Location: [id number]
[2025-01-11] MEDS: 0.9 % NaCl (Sterile) Posiflush 10 mL IV (07:30)
== END | disposition home or self-care (01) ==
LOC: CT 07:14
PROVIDERS: PCP Family Medicine; Referring Provider Nurse Practitioner Family; Visit Provider Nurse Practitioner Family
DX: C43.71 Malignant melanoma of right lower limb, including hip (principal); C77.9 Secondary and unspecified malignant neoplasm of lymph node, unspecified
CPT/HCPCS: 71260; 74177; Q9967; A4216

== ENCOUNTER 2025-02-28 10:35 | Outpatient (CLI) | payer MEDICARE, SELFPAY ==
[2025-02-28 11:19] LABS: Hemoglobin 10.8 g/dL (13.0-16.5)
[2025-02-28 11:41] LABS: Anion Gap 12 (5-15); BUN 34 mg/dL (4-19); BUN/Creat Ratio 8.7 RATIO (10-20); Calcium,Total 9.2 mg/dL (7.6-11.0); Carbon Dioxide 19.4 mmol/L (21.0-32.0); Chloride 105 mmol/L (98-108); Creatinine, Serum 3.86 mg/dL (0.70-1.20); EST Glomerular Filtration Rate 15 (>60); Glucose 98 mg/dL (70-99); Potassium 4.1 mmol/L (3.3-5.1); Sodium Level 137 mmol/L (133-145)
== END 2025-02-28 23:59 | disposition home or self-care (01) ==
LOC: MEDOUTP 10:35
PROVIDERS: PCP Family Medicine; Referring Provider Internal Medicine Nephrology; Visit Provider Internal Medicine Nephrology
DX: N17.9 Acute kidney failure, unspecified (principal); Z45.2 Encounter for adjustment and management of vascular access device
CPT/HCPCS: 36591; 80048; 85018; A4216

== ENCOUNTER 2025-04-30 15:23 | Emergency (ER) | payer MEDICARE, SELFPAY ==
[2025-04-30 15:24] VITALS: BP 136/86; PULSE 100; RESP 18; TEMP 36.7; O2SAT 95
[2025-04-30 15:26] VITALS: BMI 30.6
--- NOTE | 2025-04-30 15:53 | EX.ED.DYSGE1 ---
HPI History of Present Illness Chief Complaint: Fever Narrative Narrative: 85-year-old male past medical history of melanoma, has a Mediport presents at the direction of his primary care provider, Dr. Dolan. This is secondary to him having fevers every morning for the last week. He states that where he resides, they have a nurse that can take vital signs. It was recommended that he come to the emergency department for further evaluation of his reported fevers every morning. He states his fever was as high as 101 ?F. He will take Tylenol, but stated that the nurse did not like or did not feel that it was controlling his fever. He states has had a cough with chills. He was tested for COVID yesterday which was negative. States he has problems with urinary frequency as well but this is secondary to drinking plenty of oral fluids. He presents for hydration of his daily fevers for a week. 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 Depression Melanoma Left shoulder pain Left flank pain Imbalance Mitral valve insufficiency PVC (premature ventricular contraction) PAF (paroxysmal atrial fibrillation) Hypothyroidism (acquired) Essential hypertension Hypokalemia Squamous cell carcinoma of skin Drug rash Cough Hypothyroidism (acquired) CRF (chronic renal failure) Creatinine elevation Open wound of right heel Encounter for immunotherapy Wears glasses Cancer Alcohol use Injury of back Gastric reflux Non-smoker History of brachytherapy Regional lymph node metastasis present Malignant melanoma of right heel Personal history of colonic polyps Hemorrhoids Rheumatoid arthritis Arthritis Osteoarthritis of left knee Melendrez's palsy GERD (gastroesophageal reflux disease) Hx of malignant neoplasm of prostate Hypertension Benign prostate hyperplasia Hypercholesterolemia Sleep disorder Home Medications ?Medication ?Instructions ?Recorded ?Last Taken ?Type omeprazole 40 mg capsule,delayed 40 mg PO DAILY acid reflux 10/29/20 04/30/25 History release amlodipine 5 mg tablet 5 mg PO DAILY blood pressure 10/06/21 04/30/25 History calcium carbonate (Calcium 600) 600 mg PO DAILY supplement 01/20/22 04/30/25 History alfuzosin 10 mg tablet,extended 10 mg PO QHS urinary retention 09/28/22 04/29/25 History release 24 hr peg [id number] 1 2 drp EACH EYE Q1H PRN DRY EYES #0 02/16/23 Unknown Rx %-0.2 %-0.2 % eye drops mL (Artificial Tears ([id number])) finasteride 5 mg tablet 5 mg PO QHS 10/12/23 04/29/25 History glucosamine sulfate 500 mg tablet 1,000 mg PO DAILY 10/28/23 04/30/25 History (Glucosamine) multivitamin 1 tab PO DAILY 10/28/23 04/30/25 History lidocaine-prilocaine 2.5 %-2.5 % 1 applic topical ONCE PRN Port 03/15/24 Unknown Rx topical cream access 30 days #30 grams triamcinolone acetonide 0.1 % 1 applic topical BID-TID 07/26/24 Unknown History topical cream acetaminophen 500 mg tablet 1,000 mg PO Q8H PRN PRN pain 12/21/24 Unknown History (Tylenol Extra Strength) bismuth subsalicylate 262 mg/15 mL 524 mg PO TID PRN diarrhea 12/21/24 Unknown History oral suspension (Pepto-Bismol) cholecalciferol (vitamin D3) 25 25 mcg PO QDAY 12/21/24 04/30/25 History mcg (1,000 unit) tablet diphenhydramine HCl 25 mg capsule 50 mg PO QHS PRN allergy symptoms 12/21/24 Unknown History (Allergy Relief (diphenhydramine)) levothyroxine 112 mcg tablet 112 mcg PO QDAY thyroid 12/21/24 04/30/25 History loratadine 10 mg tablet 10 mg PO QDAY PRN allergy symptoms 12/21/24 Unknown History apixaban 5 mg tablet (Eliquis) 2.5 mg PO BID blood thinner 03/09/25 04/30/25 History guaifenesin 1,200 mg tablet, 1,200 mg PO BID 03/09/25 04/30/25 History extended release 12 hr (Mucinex) ondansetron HCl 4 mg tablet 4 mg PO Q8H PRN nausea and vomiting 03/09/25 Unknown History Lactobacillus acidophilus 20 100 mmu cells PO TIDCM 03/12/25 04/30/25 History billion cell capsule (Florajen Acidophilus) cyproheptadine 4 mg tablet 4 mg PO QHS PRN insomnia 04/30/25 Unknown History melatonin 3 mg capsule 3 mg PO QHS 04/30/25 04/29/25 History metoprolol tartrate 25 mg tablet 25 mg PO DAILY blood pressure/heart 04/30/25 04/29/25 History prednisone 10 mg tablet 10 mg PO DAILY 04/30/25 Unknown History prednisone 20 mg tablet 20 mg PO QDAY 04/30/25 Unknown History sennosides 8.6 mg tablet 8.6 mg PO BID 04/30/25 04/30/25 History (Black-Draught Lax-Senna) Allergy/AdvReac Type Severity Reaction Status Date / Time No Known Allergies Allergy Verified 03/26/25 10:28 Family History Brother Prostate cancer CVA (cerebral vascular accident) Brother Leukemia Father Hypertension Myocardial infarction Mother CHF (congestive heart failure) Surgical History History of cataract extraction History of incision and drainage Hx of foot operation History of root canal procedure Hx of colonoscopy Hx of hemorrhoidectomy Hx of rotator cuff surgery Hx of discectomy Social History household members: none Smoking Status: Former smoker second hand exposure: No alcohol intake: current alcohol intake frequency: a few times a month details: OCCASIONALLY substance use type: does not use well-balanced diet: about half the time caffeine: Yes Type: coffee Number of servings: 1 eating out: 1-3 times/week what type of physical activity do you participate in: bicycling frequency: 3-4 times per week duration: 15-30 minutes/day melany/christianity: Restorationism seatbelt use: always do you feel safe at home: Yes ROS ROS ED ROS Narrative Review of systems positive for fever and chills. Fever happens every morning. Patient takes an antipyretic which she thinks was controlling his fever. Has had cough as well, no shortness of breath. No nausea or vomiting. Positive urinary frequency but no dysuria. No exacerbating or alleviating factors. EXAM Physical Exam Narrative Exam Narrative: Afebrile. Vital signs noted. Nontoxic-appearing. Cardiovascular examination of is a regular rate and rhythm. Lungs are clear to auscultation bilaterally. Abdomen is soft and nontender with normoactive bowel sounds. Positive Mediport right chest. Neurological examination nonfocal, nonlateralizing. Const Vital Signs: 04/30/25 15:24 04/30/25 15:45 04/30/25 17:56 Temperature 98.1 F 98.3 F Temperature Source Oral Oral Pulse Rate 100 85 Respiratory Rate 18 12 Respiratory Effort Normal Non-Labored Respiratory Pattern Normal Blood Pressure 136/86 H 138/87 H Blood Pressure Mean 102 104 Pulse Ox 95 99 Oxygen Delivery Method Room Air Room Air 04/30/25 17:57 Temperature 98.3 F Temperature Source Oral Pulse Rate 85 Respiratory Rate 12 Respiratory Effort Respiratory Pattern Blood Pressure 138/87 H Blood Pressure Mean 104 Pulse Ox 99 Oxygen Delivery Method Room Air MDM MDM MDM Narrative Medical decision making narrative: The differential diagnosis includes but not limited to viral syndrome versus pneumonia versus urinary tract infection. With concern for bacteremia as well, blood cultures will be taken. Chest x-ray in 2 views will be obtained as well as respiratory swab for COVID, influenza, and RSV. Patient is afebrile here. I will obtain basic laboratory work as well given his multiple comorbidities. Reviewed his laboratory work and he has normal white count of 5.8 with hemoglobin stable at 8.8, hematocrit 26.2. Platelet count 186. Potassium is slightly decreased at 3.1 which was replaced orally with 40 mill equivalents. BUN of 40 and creatinine 2.9, but in review of prior laboratories he has chronic kidney disease. He states this is from the medication that he had been taking. LFTs are grossly unremarkable. Urinalysis shows no evidence of infection with negative nitrites 0 bacteria and 0 WBCs. Chest x-ray interpreted by myself independently shows no evidence of consolidation or pneumonia. I reviewed the radiology report which confirms my independent interpretation. I reviewed his respiratory swabs and he is negative for COVID, influenza, and RSV. At this point in time, I am unsure as to the cause of his reported fever every morning, but he is afebrile here and his fever has been controlled. He states that he is generally fatigued, but I do not feel that his hypokalemia is at extreme that would cause his symptoms. Regardless, I do feel he can be discharged to follow-up with his primary care provider, and that he does not require hospitalization at this time. Return instructions to the emergency department were reviewed. Disposition is discharged home in stable condition. History & Record Review Discussion w/independent historian: Patient Lab Data Attestation: I reviewed the patient's lab results. Labs: Laboratory Results - last 24 hr 04/30/25 04/30/25 16:22 17:50 WBC 5.8 RBC 2.72 L Hgb 8.8 L Hct 26.2 L MCV 96.3 H MCH 32.4 H MCHC 33.6 RDW Std Deviation 51.2 H RDW Coeff of Halley 14.6 Plt Count 186 MPV 9.1 Immature Gran % (Auto) 0.900 Neut % (Auto) 90.0 H Lymph % (Auto) 6.8 L Marshall % (Auto) 2.3 Eos % (Auto) 0.0 Baso % (Auto) 0.0 Absolute Neuts (auto) 5.2 Absolute Lymphs (auto) 0.39 L Nucleated RBC % 0 Sodium 135 Potassium 3.1 L Chloride 103 Carbon Dioxide 21.0 Anion Gap 12 BUN 40 H Creatinine 2.90 H Estim Creat Clear Calc 19.50 L Est GFR (MDRD) Non-Af 21 L BUN/Creatinine Ratio 13.9 Glucose 183 H Calcium 8.6 Total Bilirubin 0.27 AST 14 ALT 17 Alkaline Phosphatase 73 Total Protein 5.5 L Albumin 3.1 L Globulin 2.5 Albumin/Globulin Ratio 1.3 Urine Color Yellow Urine Clarity Clear Urine pH 6.5 Ur Specific Gabbs 1.010 Urine Protein 30 H Urine Glucose (UA) Normal Urine Ketones Negative Urine Occult Blood 10 H Urine Nitrite Negative Urine Bilirubin Negative Urine Urobilinogen Normal Ur Leukocyte Esterase Negative Urine RBC 0 SEEN Urine WBC 0 SEEN Ur Squamous Epith Cells 0 SEEN Urine Bacteria 0 SEEN Urine Mucus 0 SEEN Radiography Diagnostic Testing: Clinical Impression(s) from Imaging Studies Chest X-Ray 04/30/25 16:55 IMPRESSION: No definite evidence for an acute cardiopulmonary abnormality. Linear opacities at the right lateral lung base are likely external to the patient, correlate with findings on exam. Reading Location: [id number] Discharge Plan Triage Chief Complaint: Fever ED Provider: Mati Castellano Dx/Rx/DC Orders Clinical Impression: Fever, Hypokalemia, Fatigue Instructions: ED FUO Adult, ED Hypokalemia Prescriptions: No Action omeprazole 40 mg capsule,delayed release(DR/EC) 40 mg PO DAILY acetaminophen [Tylenol Extra Strength] 500 mg tablet 1,000 mg PO Q8H PRN PRN (Reason: pain) amlodipine 5 mg tablet 5 mg PO DAILY calcium carbonate [Calcium 600] 600 mg calcium (1,500 mg) tablet 600 mg PO DAILY alfuzosin 10 mg tablet extended release 24 hr 10 mg PO QHS Rx Instructions: administer after the same meal each day finasteride 5 mg tablet 5 mg PO QHS multivitamin Tablet 1 tab PO DAILY glucosamine sulfate [Glucosamine] 500 mg tablet 1,000 mg PO DAILY Rx Instructions: administer with a meal levothyroxine 112 mcg tablet 112 mcg PO QDAY bismuth subsalicylate [Pepto-Bismol] 262 mg/15 mL suspension 524 mg PO TID PRN (Reason: diarrhea) Rx Instructions: do not exceed 8 doses in a 24 hour period cholecalciferol (vitamin D3) 25 mcg (1,000 unit) tablet 25 mcg PO QDAY diphenhydramine HCl [Allergy Relief(diphenhydramin)] 25 mg capsule 50 mg PO QHS PRN (Reason: allergy symptoms) loratadine 10 mg tablet 10 mg PO QDAY PRN (Reason: allergy symptoms) triamcinolone acetonide 0.1 % cream 1 applic topical BID-TID Florajen Acidophilus 20 billion cell capsule 100 mmu cells PO TIDCM guaifenesin [Mucinex] 1,200 mg tablet extended release 12hr 1,200 mg PO BID ondansetron HCl 4 mg tablet 4 mg PO Q8H PRN (Reason: nausea and vomiting) Eliquis 5 mg tablet 2.5 mg PO BID Artificial Tears([id number]) 1-0.2-0.2 % Drops 2 drp EACH EYE Q1H PRN (Reason: DRY EYES) Qty: 0 0RF cyproheptadine 4 mg tablet 4 mg PO QHS PRN (Reason: insomnia) melatonin 3 mg capsule 3 mg PO QHS prednisone 10 mg tablet 10 mg PO DAILY Rx Instructions: IN ADDITION TO 20MG PER [facility] MED LIST sennosides [Black-Draught Lax-Senna] 8.6 mg tablet 8.6 mg PO BID prednisone 20 mg tablet 20 mg PO QDAY Rx Instructions: IN ADDITION TO 10MG PER [facility] MED LIST metoprolol tartrate 25 mg tablet 25 mg PO DAILY lidocaine-prilocaine 2.5-2.5 % cream 1 applic topical ONCE PRN (Reason: Port access ) 30 Days Qty: 30 2RF Primary Care Provider: Anurag Dolan Referrals: Anurag Dolan MD [Primary Care Provider] - 3-5 Days if not improving Activity Restrictions/Additional Instructions: Follow-up with your primary care provider in 3 to 5 days if not improving. You may need to have your potassium rechecked as well. Your blood cultures and urine cultures are currently pending. If you do not hear from the hospital in a few days, assume that they are negative. Return with sustained high fever, new or worsening symptoms. Print Language: Mongolian Disposition Disposition: Home, Self Care
[2025-04-30 16:40] LABS: Absolute Lymphocyte Count 0.39 X10^3/uL (0.83-4.51); Absolute Neutrophil Count 5.2 X10^3/uL (2.0-7.7); Hematocrit 26.2 % (40-54); Hemoglobin 8.8 g/dL (13.0-16.5); Lymphocyte # 0.39 X10^3/ul (0.83-4.51); Lymphocyte % 6.8 % (19-41); Mean Corp Hgb Conc 33.6 g/dL (32-36); Mean Corpuscular Hgb 32.4 pg (27.0-32.0); Mean Corpuscular Volume 96.3 fL (80-94); Mean Platelet Vol. 9.1 fl (6.2-12.0); Monocyte# 0.13 X10^3/uL; Monocyte% 2.3 % (0-10); NRBC Flagged by Analyzer 0 % (0-5); POSITIVE DIFFERENTIAL YES; Platelet Count 186 K/mm3 (150-450); RBC Distribution Width CV 14.6 % (11.6-14.6); RBC Distribution Width SD 51.2 fl (35.1-43.9); Red Blood Count 2.72 M/mm3 (4.6-6.2); White Blood Count 5.8 K/mm3 (4.4-11.0)
[2025-04-30] MEDS: 0.9% Normal Saline (1000mL) 1,000 ML 1000 ML IV (16:42)
--- NOTE | 2025-04-30 16:55 | RAD_ITS ---
PROCEDURE: CHEST PA AND LATERAL 04/30/2025 REASON FOR EXAM: FEVER TECHNIQUE: Frontal and lateral views of the chest. COMPARISON: CT chest on 01/11/2025, chest radiograph 01/18/2023 FINDINGS: Hardware: Right chest port with tip terminating at the superior cavoatrial junction. Heart: Heart is not significantly enlarged. Mediastinum: The mediastinal contour is stable. Aortic atherosclerosis. Lungs: No focal consolidation or significant pleural effusion. Linear opacities projecting over the right lateral lung base are presumed external to the patient. Bones: Degenerative changes are identified within the thoracic spine. RAD/Chest PA and Lateral IMPRESSION: No definite evidence for an acute cardiopulmonary abnormality. Linear opacitie s at the right lateral lung base are likely external to the patient, correlate with findings on exam. Reading Location: [id number]
[2025-04-30 17:07] LABS: ALB/GLOB Ratio 1.3 RATIO (0.9-2.4); AST(SGOT) 14 U/L (<=37); Alanine Aminotransfer ALT/SGPT 17 U/L (<=46); Albumin, Serum 3.1 g/dL (3.4-4.8); Alkaline Phosphatase 73 U/L (40-129); Anion Gap 12 (5-15); BUN 40 mg/dL (4-19); BUN/Creat Ratio 13.9 RATIO (10-20); Calcium,Total 8.6 mg/dL (7.6-11.0); Chloride 103 mmol/L (98-108); EST Glomerular Filtration Rate 21 (>60); Globulin 2.5 g/dL (2.2-4.2); Glucose 183 mg/dL (70-99); Potassium 3.1 mmol/L (3.3-5.1); Protein, Total 5.5 g/dL (5.9-8.4); Sodium Level 135 mmol/L (133-145); Total Bilirubin 0.27 mg/dL (0.00-1.30)
[2025-04-30 17:56] VITALS: BP 138/87; PULSE 85; RESP 12; TEMP 36.8; O2SAT 99
[2025-04-30 17:57] VITALS: BP 138/87; PULSE 85; RESP 12; TEMP 36.8; O2SAT 99
[2025-04-30 17:59] LABS: Bacteria 0 SEEN /hpf (None Seen); Mucous, Urine 0 SEEN /hpf (<or=2+); Red Blood Cells-Urine 0 SEEN /hpf (0-5); Squamous Epithelial Cells - UA 0 SEEN /hpf (0-5); White Blood Cells 0 SEEN /hpf (0-5)
[2025-04-30 18:01] LABS: Color, Urine Yellow (Yellow); Glucose, Dipstick Normal (Normal); Ketone-Dipstick Negative (Negative); Leukocyte Esterase-Dipstick Negative /ul (Negative); Nitrite-Dipstick Negative (Negative); Occult Blood-Urine 10 /ul (Negative); Protein-Dipstick 30 mg/dl (Negative); Urine Bilirubin Dipstick Negative (Negative); Urine Clarity Clear (Clear); Urine Urobilinogen Normal (Normal); Urine pH 6.5 (5.0 - 8.0)
[2025-04-30] MEDS: Potassium Chloride Oral Tablet 20 MEQ 40 MEQ PO (18:46)
[2025-04-30 18:59] VITALS: BP 103/78; PULSE 68; RESP 15; TEMP 36.8; O2SAT 97
== END 2025-04-30 18:59 | disposition home or self-care (01) ==
PROVIDERS: Emergency Provider Emergency Medicine; PCP Family Medicine; Visit Provider Emergency Medicine
DX: R50.9 Fever, unspecified (principal); I48.0 Paroxysmal atrial fibrillation; E87.6 Hypokalemia; I12.9 Hypertensive chronic kidney disease with stage 1 through stage 4 chronic kidney disease, or unspecified chronic kidney disease; N18.9 Chronic kidney disease, unspecified; R53.83 Other fatigue; Z79.01 Long term (current) use of anticoagulants; Z79.899 Other long term (current) drug therapy; Z87.891 Personal history of nicotine dependence
CPT/HCPCS: 99283; 71046; 80053; 81001; 85025; 87040; 87086; 87631; A4216

== ENCOUNTER 2025-05-02 14:18 | Inpatient (IN) | payer MEDICARE, SELFPAY ==
[2025-05-02] VITALS (13 sets, daily range): BP systolic 110–155; BP diastolic 69–99; PULSE 74–104; RESP 16–22; TEMP 36.6–37.2; O2SAT 93–99; BMI 30.2; BMI 31.3
[2025-05-02 14:56] LABS: Absolute Neutrophil Count 4.8 X10^3/uL (2.0-7.7); Hematocrit 25.7 % (40-54); Hemoglobin 8.7 g/dL (13.0-16.5); Lymphocyte % 7.5 % (19-41); Mean Corp Hgb Conc 33.9 g/dL (32-36); Mean Corpuscular Hgb 32.6 pg (27.0-32.0); Mean Corpuscular Volume 96.3 fL (80-94); Mean Platelet Vol. 8.8 fl (6.2-12.0); Monocyte# 0.15 X10^3/uL; Monocyte% 2.8 % (0-10); NRBC Flagged by Analyzer 0 % (0-5); Neutrophil # 4.75 X10^3/uL (2.7-7.7); POSITIVE DIFFERENTIAL YES; Platelet Count 204 K/mm3 (150-450); RBC Distribution Width CV 14.6 % (11.6-14.6); RBC Distribution Width SD 51.1 fl (35.1-43.9); Red Blood Count 2.67 M/mm3 (4.6-6.2); White Blood Count 5.3 K/mm3 (4.4-11.0)
[2025-05-02 15:18] LABS: International Normalized Ratio 1.1; Prothrombin Time (Protime)PT. 14.2 SECONDS (11.7-14.9)
[2025-05-02 15:19] LABS: Partial Thromboplast Time 32.4 Seconds (24.1-36.2)
--- NOTE | 2025-05-02 15:34 | EKG12_ITS ---
Test Reason : Blood Pressure : */* mmHG Vent. Rate : 89 BPM Atrial Rate : 89 BPM P-R Int : 158 ms QRS Dur : 92 ms QT Int : 336 ms P-R-T Axes : 23 -19 9 degrees QTcB Int : 408 ms Normal sinus rhythm Normal ECG Confirmed by NASH ANDREW, ALFREDO ([id number]), state editor KORTNEY MYERS ([id number]) on 05/07/2025 6:19:57 AM Referred By: TB Confirmed By: ALFREDO CAO MD
--- NOTE | 2025-05-02 15:56 | EX.ED.DYSGE1 ---
HPI History of Present Illness Chief Complaint: Weakness Narrative Narrative: Patient is a 85-year-old male with past medical history of melanoma, hypertension, BPH, hypercholesteremia who presents to the emergency department chief complaint of generalized weakness. According to the patient he was here on Wednesday for a very similar instance and was ultimately sent home. He states that today he had a doctor's appointment and that he states that it took everything for him to make it there and back. He states that he has been having fevers off and on of the 100.5. Individual at bedside notes that he has no family numbers in town as his daughters are out of town. He states that when he saw the patient earlier today he looked extremely pale/white and seemed very weak. 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 Depression Melanoma Left shoulder pain Left flank pain Imbalance Mitral valve insufficiency PVC (premature ventricular contraction) PAF (paroxysmal atrial fibrillation) Hypothyroidism (acquired) Essential hypertension Hypokalemia Squamous cell carcinoma of skin Drug rash Cough Hypothyroidism (acquired) CRF (chronic renal failure) Creatinine elevation Open wound of right heel Encounter for immunotherapy Wears glasses Cancer Alcohol use Injury of back Gastric reflux Non-smoker History of brachytherapy Regional lymph node metastasis present Malignant melanoma of right heel Personal history of colonic polyps Hemorrhoids Rheumatoid arthritis Arthritis Osteoarthritis of left knee Melendrez's palsy GERD (gastroesophageal reflux disease) Hx of malignant neoplasm of prostate Hypertension Benign prostate hyperplasia Hypercholesterolemia Sleep disorder Home Medications ?Medication ?Instructions ?Recorded ?Last Taken ?Type omeprazole 40 mg capsule,delayed 40 mg PO DAILY acid reflux 10/29/20 04/30/25 History release amlodipine 5 mg tablet 5 mg PO DAILY blood pressure 10/06/21 04/30/25 History calcium carbonate (Calcium 600) 600 mg PO DAILY supplement 01/20/22 04/30/25 History alfuzosin 10 mg tablet,extended 10 mg PO QHS urinary retention 09/28/22 04/29/25 History release 24 hr peg [id number] 1 2 drp EACH EYE Q1H PRN DRY EYES #0 02/16/23 Unknown Rx %-0.2 %-0.2 % eye drops mL (Artificial Tears ([id number])) finasteride 5 mg tablet 5 mg PO QHS 10/12/23 04/29/25 History glucosamine sulfate 500 mg tablet 1,000 mg PO DAILY 10/28/23 04/30/25 History (Glucosamine) multivitamin 1 tab PO DAILY 10/28/23 04/30/25 History lidocaine-prilocaine 2.5 %-2.5 % 1 applic topical ONCE PRN Port 03/15/24 Unknown Rx topical cream access 30 days #30 grams triamcinolone acetonide 0.1 % 1 applic topical BID-TID 07/26/24 Unknown History topical cream acetaminophen 500 mg tablet 1,000 mg PO Q8H PRN pain 12/21/24 Unknown History (Tylenol Extra Strength) bismuth subsalicylate 262 mg/15 mL 524 mg PO TID PRN diarrhea 12/21/24 Unknown History oral suspension (Pepto-Bismol) cholecalciferol (vitamin D3) 25 25 mcg PO DAILY 12/21/24 04/30/25 History mcg (1,000 unit) tablet diphenhydramine HCl 25 mg capsule 50 mg PO QHS PRN allergy symptoms 12/21/24 Unknown History (Allergy Relief (diphenhydramine)) levothyroxine 112 mcg tablet 112 mcg PO DAILY thyroid 12/21/24 04/30/25 History loratadine 10 mg tablet 10 mg PO DAILY PRN allergy symptoms 12/21/24 Unknown History guaifenesin 1,200 mg tablet, 1,200 mg PO BID 03/09/25 04/30/25 History extended release 12 hr (Mucinex) ondansetron HCl 4 mg tablet 4 mg PO Q8H PRN nausea and vomiting 03/09/25 Unknown History Lactobacillus acidophilus 20 100 mmu cells PO TIDCM 03/12/25 04/30/25 History billion cell capsule (Florajen Acidophilus) cyproheptadine 4 mg tablet 4 mg PO QHS PRN insomnia 04/30/25 Unknown History melatonin 3 mg capsule 3 mg PO QHS 04/30/25 04/29/25 History metoprolol tartrate 25 mg tablet 25 mg PO DAILY blood pressure/heart 04/30/25 04/29/25 History prednisone 10 mg tablet 10 mg PO DAILY 04/30/25 Unknown History prednisone 20 mg tablet 20 mg PO QDAY 04/30/25 Unknown History sennosides 8.6 mg tablet 8.6 mg PO BID 04/30/25 04/30/25 History (Black-Draudestinyt Lax-Senna) apixaban 2.5 mg tablet (Eliquis) 2.5 mg PO BID 05/02/25 Unknown History Allergy/AdvReac Type Severity Reaction Status Date / Time No Known Allergies Allergy Verified 05/02/25 14:21 Family History Brother Prostate cancer CVA (cerebral vascular accident) Brother Leukemia Father Hypertension Myocardial infarction Mother CHF (congestive heart failure) Surgical History History of cataract extraction History of incision and drainage Hx of foot operation History of root canal procedure Hx of colonoscopy Hx of hemorrhoidectomy Hx of rotator cuff surgery Hx of discectomy Social History household members: none Smoking Status: Former smoker second hand exposure: No alcohol intake: current alcohol intake frequency: a few times a month details: OCCASIONALLY substance use type: does not use well-balanced diet: about half the time caffeine: Yes Type: coffee Number of servings: 1 eating out: 1-3 times/week what type of physical activity do you participate in: bicycling frequency: 3-4 times per week duration: 15-30 minutes/day melany/gnosticist: Taoist seatbelt use: always do you feel safe at home: Yes ROS ROS ED ROS Narrative Constitutional: Complains of fever and chills noted above denies headache, lightness, dizziness Eyes: Denies change in vision double vision blurry vision Cardiovascular: Denies chest pain or palpitations Respiratory: Complains of cough states that this is been going on for significant time Abdomen: Denies abdominal pain nausea vomit diarrhea : Denies urinary symptoms Neurological: Complains of generalized weakness as noted above denies numbness, tingling Musculoskeletal: Denies back pain Skin: Denies rashes or lesions EXAM Physical Exam Narrative Exam Narrative: General: Patient lying in bed rest comfortably did not appear to be acute distress Head: Atraumatic, normocephalic Eyes: PERRL bilaterally, EOMI bilaterally, no conjunctival injection noted Neck: Soft, supple, trachea midline Cardiovascular: Patient tachycardic with a regular rhythm no murmurs gallops rubs noted Respiratory: Clear to auscultation bilaterally Abdomen: Soft, nondistended, nontender to palpation Extremities: +4/5 strength noted in the bilateral upper and lower extremities, no pedal edema on exam Neurological: Patient following commands knew that he was at [facility] year is 2024. NIH of 0 GCS 15 Skin: Warm, dry, tact no rashes or lesions noted Const Vital Signs: 05/02/25 14:22 05/02/25 14:25 05/02/25 14:26 Temperature 98.9 F 98.9 F Temperature Source Oral Oral Pulse Rate 104 H 104 H Respiratory Rate 18 18 Respiratory Effort Respiratory Pattern Blood Pressure 135/70 H 135/70 H Blood Pressure Mean 91 91 Pulse Ox 94 94 Oxygen Delivery Method Room Air Room Air Room Air 05/02/25 14:26 05/02/25 15:34 05/02/25 16:18 Temperature Temperature Source Pulse Rate 90 Respiratory Rate 18 Respiratory Effort Respiratory Pattern Blood Pressure 130/86 H Blood Pressure Mean 100 Pulse Ox 98 93 Oxygen Delivery Method Room Air Room Air Room Air 05/02/25 16:27 05/02/25 16:27 05/02/25 17:00 Temperature 98.1 F 98.2 F Temperature Source Oral Oral Pulse Rate 85 94 Respiratory Rate 17 20 H Respiratory Effort Normal Respiratory Pattern Normal Blood Pressure 130/86 H 134/78 H Blood Pressure Mean 100 96 Pulse Ox 94 98 Oxygen Delivery Method Room Air Room Air 05/02/25 18:00 05/02/25 18:08 05/02/25 19:00 Temperature 98.1 F 98.1 F Temperature Source Oral Oral Pulse Rate 94 87 85 Respiratory Rate 19 H 22 H 17 Respiratory Effort Respiratory Pattern Blood Pressure 123/74 H 145/91 H 145/72 H Blood Pressure Mean 90 109 96 Pulse Ox 94 96 97 Oxygen Delivery Method Room Air Room Air Room Air MDM MDM MDM Narrative Medical decision making narrative: Patient is a 85-year-old male who presents to the Emergency Department chief complaint of generalized weakness, fevers and not feeling well. On the differential diagnosis includes but not limited to UTI, pneumonia, worsening metastatic melanoma, electrolyte abnormality, dehydration. Once workup is obtained reviewed he will be reevaluated. Patient be given 30 cc/kg bolus of IV fluids which was ordered at 1535 Patient's CBC reviewed showed no evidence leukocytosis white blood count normal at 5.3, hemoglobin 8.7, plate count of 204. Patient's absolute neutrophil count normal at 4.8, INR 1.1, PT of 14.2. Patient sodium is 136, Tessman normal at 3.6, creatinine was elevated at 3.05 which has worsened since his recent visit here in the emergency department on 04/30/2025. Patient's lactic acid elevated 2.2 repeat lactic acid increased to 2.7. Patient's AST and ALT were 18 and 19 respectively, troponin was 66 delta troponin pending. Patient's EKG was reviewed which showed sinus rhythm with a rate of 89 bpm this is likely secondary to his renal function and type II myocardial infarction. He does not have any chest pain. Patient TSH normal at 2.58, free T4 and T3 were 1 and 1.2 respectively. Patient's microscopic urinalysis pending however negative leukocyte esterase negative nitrates he does not have any urinary symptoms. Patient CT chest abdomen pelvis without contrast reviewed showed no acute abnormalities noted in the chest abdomen or pelvis stable thickening of the left fissure. Right inguinal region small density which is similar to prior and may represent scarring internal fluid cannot be excluded. Colonic diverticulosis dense colonic stool which may suggest constipation. Patient tested negative for COVID flu RSV. Reperfusion assessment was performed at 1800 patient remains normotensive therefore no vasopressors indicated. Patient was given vancomycin and cefepime at 1740. Will discuss case with hospitalist for admission for fevers of unknown etiology, generalized weakness, worsening renal function. Discussed case with hospitalist Dr. Mcgarry who accept patient for admission. Patient notified is agreeable to plan all question concerns answered. Lab Data Labs: Laboratory Results - last 24 hr 05/02/25 05/02/25 05/02/25 14:04 14:40 17:06 WBC 5.3 RBC 2.67 L Hgb 8.7 L Hct 25.7 L MCV 96.3 H MCH 32.6 H MCHC 33.9 RDW Std Deviation 51.1 H RDW Coeff of Halley 14.6 Plt Count 204 MPV 8.8 Immature Gran % (Auto) 0.700 Neut % (Auto) 89.0 H Lymph % (Auto) 7.5 L [place] % (Auto) 2.8 Eos % (Auto) 0.0 Baso % (Auto) 0.0 Absolute Neuts (auto) 4.8 Absolute Lymphs (auto) 0.40 L Nucleated RBC % 0 PT 14.2 INR 1.1 APTT 32.4 Sodium 136 Potassium 3.6 Chloride 105 Carbon Dioxide 18.9 L Anion Gap 13 BUN 36 H Creatinine 3.05 H Est GFR (MDRD) Non-Af 19 L BUN/Creatinine Ratio 11.7 Glucose 172 H Lactic Acid 2.2 H* 2.7 H* Calcium 9.3 Total Bilirubin 0.20 AST 18 ALT 19 Alkaline Phosphatase 74 Troponin T High Sens 66 H* Troponin T Hi Sens 2 Hr Total Protein 5.6 L Albumin 3.2 L Globulin 2.4 Albumin/Globulin Ratio 1.3 TSH 2.580 Cancelled Free T4 1.00 Cancelled Free T3 pg/dL 1.2 L Cancelled Urine Color Straw Urine Clarity Clear Urine pH 6.0 Ur Specific [place] 1.010 Urine Protein 15 H Urine Glucose (UA) Normal Urine Ketones Negative Urine Occult Blood 10 H Urine Nitrite Negative Urine Bilirubin Negative Urine Urobilinogen Normal Ur Leukocyte Esterase Negative Urine RBC 0-5 SEEN Urine WBC 0 SEEN Ur Squamous Epith Cells 0 SEEN Urine Bacteria 0 SEEN Urine Mucus 0 SEEN 05/02/25 18:05 WBC RBC Hgb Hct MCV MCH MCHC RDW Std Deviation RDW Coeff of Halley Plt Count MPV Immature Gran % (Auto) Neut % (Auto) Lymph % (Auto) [place] % (Auto) Eos % (Auto) Baso % (Auto) Absolute Neuts (auto) Absolute Lymphs (auto) Nucleated RBC % PT INR APTT Sodium Potassium Chloride Carbon Dioxide Anion Gap BUN Creatinine Est GFR (MDRD) Non-Af BUN/Creatinine Ratio Glucose Lactic Acid Calcium Total Bilirubin AST ALT Alkaline Phosphatase Troponin T High Sens Troponin T Hi Sens 2 Hr 60 H* Total Protein Albumin Globulin Albumin/Globulin Ratio TSH Free T4 Free T3 pg/dL Urine Color Urine Clarity Urine pH Ur Specific [place] Urine Protein Urine Glucose (UA) Urine Ketones Urine Occult Blood Urine Nitrite Urine Bilirubin Urine Urobilinogen Ur Leukocyte Esterase Urine RBC Urine WBC Ur Squamous Epith Cells Urine Bacteria Urine Mucus Radiography Diagnostic Testing: Clinical Impression(s) from Imaging Studies Chest/Abdomen/Pelvis CT 05/02/25 16:15 IMPRESSION: 1. No acute abnormalities of the chest, abdomen, or pelvis. 2. Stable thickening of the left fissure. 3. Right inguinal region small density which is similar to the prior and may represent scarring. Internal fluid can not be excluded. Further characterization with right inguinal hernia is recommended. 4. Colonic diverticulosis. 5. Dense colonic stool which may suggest constipation. 6. Additional chronic and ancillary findings as above. Reading Location: [place] [id number] Discharge Plan Triage Chief Complaint: Weakness ED Provider: Benjamin Mccoy Dx/Rx/DC Orders Clinical Impression: Fever, Acute kidney injury superimposed on chronic kidney disease, Acidosis, lactic, Suppression of immune system subtherapeutic, Myocardial infarction type 2 Prescriptions: No Action omeprazole 40 mg capsule,delayed release(DR/EC) 40 mg PO DAILY acetaminophen [Tylenol Extra Strength] 500 mg tablet 1,000 mg PO Q8H PRN (Reason: pain) amlodipine 5 mg tablet 5 mg PO DAILY calcium carbonate [Calcium 600] 600 mg calcium (1,500 mg) tablet 600 mg PO DAILY alfuzosin 10 mg tablet extended release 24 hr 10 mg PO QHS Rx Instructions: administer after the same meal each day finasteride 5 mg tablet 5 mg PO QHS multivitamin Tablet 1 tab PO DAILY glucosamine sulfate [Glucosamine] 500 mg tablet 1,000 mg PO DAILY Rx Instructions: administer with a meal levothyroxine 112 mcg tablet 112 mcg PO DAILY bismuth subsalicylate [Pepto-Bismol] 262 mg/15 mL suspension 524 mg PO TID PRN (Reason: diarrhea) Rx Instructions: do not exceed 8 doses in a 24 hour period cholecalciferol (vitamin D3) 25 mcg (1,000 unit) tablet 25 mcg PO DAILY diphenhydramine HCl [Allergy Relief(diphenhydramin)] 25 mg capsule 50 mg PO QHS PRN (Reason: allergy symptoms) loratadine 10 mg tablet 10 mg PO DAILY PRN (Reason: allergy symptoms) triamcinolone acetonide 0.1 % cream 1 applic topical BID-TID Florajen Acidophilus 20 billion cell capsule 100 mmu cells PO TIDCM guaifenesin [Mucinex] 1,200 mg tablet extended release 12hr 1,200 mg PO BID ondansetron HCl 4 mg tablet 4 mg PO Q8H PRN (Reason: nausea and vomiting) Artificial Tears([id number]) 1-0.2-0.2 % Drops 2 drp EACH EYE Q1H PRN (Reason: DRY EYES) Qty: 0 0RF cyproheptadine 4 mg tablet 4 mg PO QHS PRN (Reason: insomnia) melatonin 3 mg capsule 3 mg PO QHS prednisone 10 mg tablet 10 mg PO DAILY Rx Instructions: IN ADDITION TO 20MG PER [facility] MED LIST sennosides [Black-Draught Lax-Senna] 8.6 mg tablet 8.6 mg PO BID prednisone 20 mg tablet 20 mg PO QDAY Rx Instructions: IN ADDITION TO 10MG PER [facility] MED LIST metoprolol tartrate 25 mg tablet 25 mg PO DAILY Eliquis 2.5 mg tablet 2.5 mg PO BID lidocaine-prilocaine 2.5-2.5 % cream 1 applic topical ONCE PRN (Reason: Port access ) 30 Days Qty: 30 2RF Primary Care Provider: Anurag Dolan Referrals: Anurag Dolan MD [Primary Care Provider] - Print Language: Mohawk Disposition Disposition: Acute Care Hospital [facility]
[2025-05-02 15:57] LABS: ALB/GLOB Ratio 1.3 RATIO (0.9-2.4); AST(SGOT) 18 U/L (<=37); Alanine Aminotransfer ALT/SGPT 19 U/L (<=46); Albumin, Serum 3.2 g/dL (3.4-4.8); Alkaline Phosphatase 74 U/L (40-129); Anion Gap 13 (5-15); BUN 36 mg/dL (4-19); BUN/Creat Ratio 11.7 RATIO (10-20); Calcium,Total 9.3 mg/dL (7.6-11.0); Carbon Dioxide 18.9 mmol/L (21.0-32.0); Chloride 105 mmol/L (98-108); Creatinine, Serum 3.05 mg/dL (0.70-1.20); EST Glomerular Filtration Rate 19 (>60); Globulin 2.4 g/dL (2.2-4.2); Glucose 172 mg/dL (70-99); Potassium 3.6 mmol/L (3.3-5.1); Protein, Total 5.6 g/dL (5.9-8.4); Sodium Level 136 mmol/L (133-145)
[2025-05-02 15:58] LABS: Lactic Acid 2.7 mmol/L (0.0-2.0)
--- NOTE | 2025-05-02 16:15 | CT_ITS ---
PROCEDURE: CT CHEST, ABD, PELVIS WO CONT 05/02/2025 REASON FOR EXAM: FEVER, UNKONWN ETIOLOGY, LLQ PAIN TECHNIQUE: Chest, abdomen and pelvis CT without intravenous contrast. Coronal and Sagittal reconstruction series were provided. One or more dose reduction techniques were used (e.g., Automated exposure control, adjustment of the mA and/or kV according to patient size, use of iterative reconstruction technique. RADIATION DOSE SUMMARY: CTDlvol: 14.17+ 18.60 mGy DLP: 1499.81 mGycm COMPARISON: 01/11/2025 CT. FINDINGS: The peripheral soft tissues are unremarkable. Degenerative changes of the thoracic spine. The thyroid is unremarkable. The esophagus is normal in caliber. Mild atherosclerosis of a normal caliber thoracic aorta. No suspicious lymphadenopathy. Coronary artery calcifications are present. No pericardial effusion. Stable thickening of the left fissure. CT ABDOMEN / PELVIS: Noncontrast technique limits evaluation of the abdominal and pelvic viscera. Small fat containing umbilical hernia. Degenerative changes of the lumbar spine. Right inguinal region increased density which measures 29 x 8 mm which is similar to the prior and may represent scarring. Moderate atherosclerosis. Normal caliber abdominal aorta. No suspicious lymphadenopathy. Stable hypodense tiny lesions within the liver favored to be benign. Right kidney cyst. No hydroureteronephrosis. The urinary bladder is unremarkable. Prostatic seeds are present. Colonic diverticulosis. No surrounding inflammatory change. Dense colonic stool. CT/CT Chest, Abd, Pelvis WO Cont IMPRESSION: 1. No acute abnormalities of the chest, abdomen, or pelvis. 2. Stable thickening of the left fissure. 3. Right inguinal region small density which is similar to the prior and may re present scarring. Internal fluid can not be excluded. Further characterization with right inguinal hernia is recommended. 4. Colonic diverticulosis. 5. Dense colonic stool which may suggest constipation. 6. Additional chronic and ancillary findings as above. Reading Location: [place] [id number]
[2025-05-02] MEDS: 0.9% Normal Saline (1000mL) 1,000 ML 999 ML IV ×3 (16:38→19:36)
[2025-05-02 16:59] LABS: Lactic Acid 2.2 mmol/L (0.0-2.0); Troponin T High Sensitivity 66 ng/L (<=22)
[2025-05-02 17:10] LABS: Bacteria 0 SEEN /hpf (None Seen); Mucous, Urine 0 SEEN /hpf (<or=2+); Squamous Epithelial Cells - UA 0 SEEN /hpf (0-5); White Blood Cells 0 SEEN /hpf (0-5)
[2025-05-02 17:11] LABS: Glucose, Dipstick Normal (Normal); Ketone-Dipstick Negative (Negative); Leukocyte Esterase-Dipstick Negative /ul (Negative); Nitrite-Dipstick Negative (Negative); Occult Blood-Urine 10 /ul (Negative); Urine Bilirubin Dipstick Negative (Negative); Urine Clarity Clear (Clear); Urine Urobilinogen Normal (Normal)
[2025-05-02 17:37] LABS: Free T3 1.2 pg/mL (2.18-3.98)
[2025-05-02 18:07] LABS: Color, Urine Straw (Yellow); Protein-Dipstick 15 mg/dl (Negative)
[2025-05-02 18:46] LABS: Red Blood Cells-Urine 0-5 SEEN /hpf (0-5)
[2025-05-02] MEDS: Cefepime HCl 2 GM in 0.9% Normal Saline (100mL MB+) 100 ML IV (18:50)
[2025-05-02 18:51] LABS: Reflex Lactate? Y
[2025-05-02 18:58] LABS: Troponin T High Sens 2 HR 60 ng/L (<=22)
--- NOTE | 2025-05-02 19:10 | ED.RN ---
attempted to do med list. chanelle Stout in at this time. unable to access.
[2025-05-02] MEDS: Vancomycin HCl 2,000 MG in 0.9% Normal Saline (500mL Bag) 500 ML 250 MG IV (19:42)
[2025-05-02 20:14] LABS: Reflex Lactate? Y
--- NOTE | 2025-05-02 20:21 | PCM.HP.STD ---
HPI - General General Date of Admission: 05/02/25 Date of Service: 05/02/25 Chief Complaint: General malaise and fatigue HPI Narrative EMPERATRIZ EPPS, is a 85 M who presented to the emergency department at [facility] on 05/02/2025 with general malaise and fatigue. He has had fatigue ongoing since about mid December to mid January. He has a history of metastatic melanoma and had been on immunotherapy up until January at that point therapy was discontinued due to worsening renal function on biologics. He has not been on any therapy since that point in time. He had a follow-up at [facility] late in March to see if he was a candidate for any trials. He states he is not a candidate however the oncologist at [facility] Main ma[place]go thinks his disease process may be in remission at this time and is monitoring him with serial imaging. He did state about 1-1/2 to 2 weeks ago he started feeling a little bit worse. He had low-grade temperatures at home with a Tmax of 100.5. He has developed a cough and stated there was something going around at the assisted living environment he lives in that involves cough. He has had a persistent cough for about a week now and felt like he was getting a cold about 2 weeks ago. He has not been feeling well since that point in time and been fatigued since that he was diagnosed with renal failure related to his biologic therapy for his multiple myeloma. Vital signs at the time of presentation showed temperature of 98.9, heart rate 104, respiratory rate 18, blood pressure was 135/70 and pulse ox was 94% on room air. CBC shows a normal white count with a stable anemia. He does have a left shift with an 89.0% neutrophilia but he is on chronic steroids. His chemistry panel shows a mildly low serum bicarbonate normal anion gap. He has abnormal renal function with a BUN of 36 and a serum creatinine of 3.05 which is slightly up from 04/30/2025 at which time it was 2.9. Patient reported a clean clinic he was 2.75. Lactic acid was initially 2.7 with a repeat of 2.4. Liver functions are normal. His initial troponin was 66 with a repeat of 60 and the patient's not having any chest pain or other cardiac related symptoms. TSH was within normal limits. His UA is unremarkable. CT of the chest abdomen pelvis shows bronchiectasis with no significant acute abnormalities otherwise, stable thickening of the left fissure, colonic diverticulosis dense colonic stool. Given his immunosuppression, history of cancer I do feel he warrants admission for IV antibiotics and further workup at this time given he has had ongoing symptoms. 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 Depression Melanoma Left shoulder pain Left flank pain Imbalance Mitral valve insufficiency PVC (premature ventricular contraction) PAF (paroxysmal atrial fibrillation) Hypothyroidism (acquired) Essential hypertension Hypokalemia Squamous cell carcinoma of skin Drug rash Cough Hypothyroidism (acquired) CRF (chronic renal failure) Creatinine elevation Open wound of right heel Encounter for immunotherapy Wears glasses Cancer Alcohol use Injury of back Gastric reflux Non-smoker History of brachytherapy Regional lymph node metastasis present Malignant melanoma of right heel Personal history of colonic polyps Hemorrhoids Rheumatoid arthritis Arthritis Osteoarthritis of left knee Melendrez's palsy GERD (gastroesophageal reflux disease) Hx of malignant neoplasm of prostate Hypertension Benign prostate hyperplasia Hypercholesterolemia Sleep disorder Home Medications ?Medication ?Instructions ?Recorded ?Last Taken ?Type omeprazole 40 mg capsule,delayed 40 mg PO DAILY acid reflux 10/29/20 04/30/25 History release amlodipine 5 mg tablet 5 mg PO DAILY blood pressure 10/06/21 04/30/25 History calcium carbonate (Calcium 600) 600 mg PO DAILY supplement 01/20/22 04/30/25 History alfuzosin 10 mg tablet,extended 10 mg PO QHS urinary retention 09/28/22 04/29/25 History release 24 hr peg [id number] 1 2 drp EACH EYE Q1H PRN DRY EYES #0 02/16/23 Unknown Rx %-0.2 %-0.2 % eye drops mL (Artificial Tears ([id number])) finasteride 5 mg tablet 5 mg PO QHS 10/12/23 04/29/25 History glucosamine sulfate 500 mg tablet 1,000 mg PO DAILY 10/28/23 04/30/25 History (Glucosamine) multivitamin 1 tab PO DAILY 10/28/23 04/30/25 History lidocaine-prilocaine 2.5 %-2.5 % 1 applic topical ONCE PRN Port 03/15/24 Unknown Rx topical cream access 30 days #30 grams triamcinolone acetonide 0.1 % 1 applic topical BID-TID 07/26/24 Unknown History topical cream acetaminophen 500 mg tablet 1,000 mg PO Q8H PRN pain 12/21/24 Unknown History (Tylenol Extra Strength) bismuth subsalicylate 262 mg/15 mL 524 mg PO TID PRN diarrhea 12/21/24 Unknown History oral suspension (Pepto-Bismol) cholecalciferol (vitamin D3) 25 25 mcg PO DAILY 12/21/24 04/30/25 History mcg (1,000 unit) tablet diphenhydramine HCl 25 mg capsule 50 mg PO QHS PRN allergy symptoms 12/21/24 Unknown History (Allergy Relief (diphenhydramine)) levothyroxine 112 mcg tablet 112 mcg PO DAILY thyroid 12/21/24 04/30/25 History loratadine 10 mg tablet 10 mg PO DAILY PRN allergy symptoms 12/21/24 Unknown History guaifenesin 1,200 mg tablet, 1,200 mg PO BID 03/09/25 04/30/25 History extended release 12 hr (Mucinex) ondansetron HCl 4 mg tablet 4 mg PO Q8H PRN nausea and vomiting 03/09/25 Unknown History Lactobacillus acidophilus 20 100 mmu cells PO TIDCM 03/12/25 04/30/25 History billion cell capsule (Florajen Acidophilus) cyproheptadine 4 mg tablet 4 mg PO QHS PRN insomnia 04/30/25 Unknown History melatonin 3 mg capsule 3 mg PO QHS 04/30/25 04/29/25 History metoprolol tartrate 25 mg tablet 25 mg PO DAILY blood pressure/heart 04/30/25 04/29/25 History prednisone 10 mg tablet 10 mg PO DAILY 04/30/25 Unknown History prednisone 20 mg tablet 20 mg PO QDAY 04/30/25 Unknown History sennosides 8.6 mg tablet 8.6 mg PO BID 04/30/25 04/30/25 History (Black-Draught Lax-Senna) apixaban 2.5 mg tablet (Eliquis) 2.5 mg PO BID 05/02/25 Unknown History Allergy/AdvReac Type Severity Reaction Status Date / Time No Known Allergies Allergy Verified 05/02/25 14:21 Family History Brother Prostate cancer CVA (cerebral vascular accident) Brother Leukemia Father Hypertension Myocardial infarction Mother CHF (congestive heart failure) Surgical History History of cataract extraction History of incision and drainage Hx of foot operation History of root canal procedure Hx of colonoscopy Hx of hemorrhoidectomy Hx of rotator cuff surgery Hx of discectomy Social History household members: none Smoking Status: Former smoker second hand exposure: No alcohol intake: current alcohol intake frequency: a few times a month details: OCCASIONALLY substance use type: does not use well-balanced diet: about half the time caffeine: Yes Type: coffee Number of servings: 1 eating out: 1-3 times/week what type of physical activity do you participate in: bicycling frequency: 3-4 times per week duration: 15-30 minutes/day melany/adventist: Congregational seatbelt use: always do you feel safe at home: Yes ROS Constitutional Constitutional: Reports chills, fatigue, fever(s), malaise and weakness; Denies anorexia, change in weight, night sweats or other Eyes Eyes: Denies blurry vision, change in eye color, change in vision, discharge from eye(s), double vision, erythema, eye pain, loss of vision or other ENT HEENT: Denies abnormal hearing, dysphagia, ear pain, epistaxis, headache(s), hearing loss, nasal congestion, nasal discharge, post nasal drip, sinus pressure, sore throat or other Cardiovascular Cardiovascular: Reports edema; Denies chest pain, claudication, dyspnea on exertion, lightheadedness, orthopnea, palpitations, paroxysmal nocturnal dyspnea, rapid heart rate, syncope or other Respiratory/Chest Respiratory/Chest: Reports cough and wheezing; Denies dyspnea, excessive phlegm production, hemoptysis, productive cough, shortness of breath at rest, shortness of breath with exertion or other Gastrointestinal Gastrointestinal: Denies abdominal pain, coffee ground emesis, constipation, diarrhea, dyspepsia, hematemesis, hematochezia, loose stools, melena, nausea, vomiting or other Genitourinary Genitourinary: Reports urinary frequency; Denies burning urination, difficulty urinating, dysuria, hematuria, nocturia, urinary hesitancy, urinary incontinence, urinary urgency or other Musculoskeletal Musculoskeletal: Denies arthralgias, back pain, joint pain, joint stiffness, joint swelling, myalgias, neck pain or other Neurologic Neurologic: Denies abnormal gait, abnormal speech, confusion, disequilibrium, dizziness, focal weakness, headache(s), numbness, paresthesias, seizure-like activity, seizures, syncope, tingling, tremor(s) or other Psychiatric Psychiatric: Denies anxiety, depression, homicidal ideation, suicidal ideation or other Endocrine Endocrinology: Denies change in body appearance, cold intolerance, excessive sweating, heat intolerance, polydipsia, polyuria or other Hematologic/Lymphatic Hematologic/Lymphatic: Denies anemia, easy bleeding, easy bruising, lymphadenopathy or other Allergic/Immunologic Allergic/Immunologic: Denies rhinitis, hives, eczemia, asthma or other Vital Signs Vital Signs Vital Signs: 05/02/25 14:22 05/02/25 14:25 05/02/25 14:26 Temperature 98.9 F 98.9 F Temperature Source Oral Oral Pulse Rate 104 H 104 H Respiratory Rate 18 18 Respiratory Effort Respiratory Pattern Blood Pressure 135/70 H 135/70 H Blood Pressure Mean 91 91 Pulse Ox 94 94 Oxygen Delivery Method Room Air Room Air Room Air 05/02/25 14:26 05/02/25 15:34 05/02/25 16:18 Temperature Temperature Source Pulse Rate 90 Respiratory Rate 18 Respiratory Effort Respiratory Pattern Blood Pressure 130/86 H Blood Pressure Mean 100 Pulse Ox 98 93 Oxygen Delivery Method Room Air Room Air Room Air 05/02/25 16:27 05/02/25 16:27 05/02/25 17:00 Temperature 98.1 F 98.2 F Temperature Source Oral Oral Pulse Rate 85 94 Respiratory Rate 17 20 H Respiratory Effort Normal Respiratory Pattern Normal Blood Pressure 130/86 H 134/78 H Blood Pressure Mean 100 96 Pulse Ox 94 98 Oxygen Delivery Method Room Air Room Air 05/02/25 18:00 05/02/25 18:08 05/02/25 19:00 Temperature 98.1 F 98.1 F Temperature Source Oral Oral Pulse Rate 94 87 85 Respiratory Rate 19 H 22 H 17 Respiratory Effort Respiratory Pattern Blood Pressure 123/74 H 145/91 H 145/72 H Blood Pressure Mean 90 109 96 Pulse Ox 94 96 97 Oxygen Delivery Method Room Air Room Air Room Air 05/02/25 20:00 Temperature 98.3 F Temperature Source Oral Pulse Rate 92 Respiratory Rate 20 H Respiratory Effort Respiratory Pattern Blood Pressure 155/99 H Blood Pressure Mean 117 Pulse Ox 95 Oxygen Delivery Method Room Air Weight Weight: 86.1 kg Body Mass Index (BMI) 30.2 Physical Exam Const alert, oriented x3, no apparent distress and well nourished; Negative for average body habitus Constitutional Narrative: Obese, elderly, white male, sitting up in bed, family at bedside, appears nontoxic, appears comfortable, very pleasant General Appearance: cooperative HEENT normocephalic, head/scalp atraumatic, hearing grossly normal bilaterally and moist oral mucous membranes HEENT Narrative: Mallampati 2-3, no thrush Eyes EOMs intact bilaterally and conjunctivae normal Eyes Narrative: No scleral icterus Neck supple Neck Narrative: Trachea midline, no lymphadenopathy, no thyroid enlargement Resp normal respiratory effort, no retractions, no use of accessory muscles and No clear to auscultation bilaterally Resp Narrative: Scattered wheezes with at bases bilaterally with intermittent cough Auscultation: wheezes; Negative for rales or rhonchi Cardio regular rate, regular rhythm, S1 normal heart sound, S2 normal heart sound, no murmurs, no rub, no gallops and no clicks GI normal to inspection, nondistended, normoactive bowel sounds, soft to palpation and non-tender Extremity Extremity Narrative: 1+ right lower extremity edema that is pitting in nature, trace left lower extremity pitting edema Skin Skin Narrative: [facility] right upper chest is clean dry and intact and currently accessed, no drainage, no rashes Neuro oriented x3, moves all extremities and no focal motor deficits Neuro Narrative: Mild generalized weakness noted but no focal deficits Speech: speech normal Psych affect normal Psych Narrative: Extremely pleasant, eye contact is good, patient interacts appropriately Results Lab / Micro Data 05/02/25 14:40 05/02/25 14:40 Labs: Laboratory Results - last 24 hr 05/02/25 14:04: Lactic Acid 2.2 H*, Troponin T High Sens 66 H*, TSH 2.580, Free T4 1.00, Free T3 pg/dL 1.2 L 05/02/25 14:40: WBC 5.3, RBC 2.67 L, Hgb 8.7 L, Hct 25.7 L, MCV 96.3 H, MCH 32.6 H, MCHC 33.9, RDW Std Deviation 51.1 H, RDW Coeff of Halley 14.6, Plt Count 204, MPV 8.8, Immature Gran % (Auto) 0.700, Neut % (Auto) 89.0 H, Lymph % (Auto) 7.5 L, [place] % (Auto) 2.8, Eos % (Auto) 0.0, Baso % (Auto) 0.0, Absolute Neuts (auto) 4.8, Absolute Lymphs (auto) 0.40 L, Nucleated RBC % 0, PT 14.2, INR 1.1, APTT 32.4, Sodium 136, Potassium 3.6, Chloride 105, Carbon Dioxide 18.9 L, Anion Gap 13, BUN 36 H, Creatinine 3.05 H, Est GFR (MDRD) Non-Af 19 L, BUN/Creatinine Ratio 11.7, Glucose 172 H, Lactic Acid 2.7 H*, Calcium 9.3, Total Bilirubin 0.20, AST 18, ALT 19, Alkaline Phosphatase 74, Total Protein 5.6 L, Albumin 3.2 L, Globulin 2.4, Albumin/Globulin Ratio 1.3, TSH Cancelled, Free T4 Cancelled, Free T3 pg/dL Cancelled 05/02/25 17:06: Urine Color Straw, Urine Clarity Clear, Urine pH 6.0, Ur Specific [place] 1.010, Urine Protein 15 H, Urine Glucose (UA) Normal, Urine Ketones Negative, Urine Occult Blood 10 H, Urine Nitrite Negative, Urine Bilirubin Negative, Urine Urobilinogen Normal, Ur Leukocyte Esterase Negative, Urine RBC 0-5 SEEN, Urine WBC 0 SEEN, Ur Squamous Epith Cells 0 SEEN, Urine Bacteria 0 SEEN, Urine Mucus 0 SEEN 05/02/25 18:05: Troponin T Hi Sens 2 Hr 60 H* Micro: Microbiology 05/02/25 16:56 Mucosa - Nose SARS-CoV-2, Influenza & RSV (PCR) - Final Imaging Radiology Impression Chest/Abdomen/Pelvis CT 05/02/25 16:15 IMPRESSION: 1. No acute abnormalities of the chest, abdomen, or pelvis. 2. Stable thickening of the left fissure. 3. Right inguinal region small density which is similar to the prior and may represent scarring. Internal fluid can not be excluded. Further characterization with right inguinal hernia is recommended. 4. Colonic diverticulosis. 5. Dense colonic stool which may suggest constipation. 6. Additional chronic and ancillary findings as above. Reading Location: [place] [id number] Assessment & Plan Assessment/Plan (1) Acidosis, lactic: (2) Elevated troponin: (3) Cough: (4) Fever: (5) Fatigue: (6) Generalized weakness: PLAN: Plan Fever of unknown origin - Patient with low-grade fevers Tmax 100.5 - Seems that there was a respiratory infection going around at the assisted living place he resides - COVID/flu/RSV negative - Check respiratory viral panel - Blood and urine cultures are pending -check sputum if patient able to produce - Patient has been on prednisone so will not give any further for now as would like to avoid immunosuppression - Aggressive pulmonary toilet - I-S and Acapella Essential hypertension - Continue home amlodipine - Continue home metoprolol Bilateral lower extremity edema - Will check bilateral lower extremity Dopplers to rule out DVT as source of fever - Patient is on anticoagulation with apixaban however dose is reduced at 2.5 mg due to renal function and age Lactic acidosis - Etiology is unclear - Patient is not hypotensive - Does not appear to be on any medications that cause lactic acidosis - Patient was given some IV fluids and this is resolving Generalized weakness and fatigue - This has been ongoing since his renal function has been poor - Suspect may be related to decreased clearance of medications - PT/OT consultation Cough - Workup as above - Continue home Mucinex - Aerosols as ordered Metastatic malignant melanoma - Patient had been on a biologic agent but this was discontinued in January due to interstitial nephritis - Currently is following at [facility] and suspicion is he may be in remission - Current plan is to follow imaging serially - Current metastatic disease to 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 - Continue home afluzosin GERD - Continue home omeprazole Paroxysmal atrial fibrillation - Patient is currently in sinus rhythm - Continue home apixaban - continue metoprolol Hypothyroidism - Continue home levothyroxine CKD stage IV - Patient with recent diagnosis of interstitial nephritis from biologic agent - New baseline for serum creatinine may be around 3.0 - Previous baseline was about 1.4-1.6 - Patient has been on prednisone taper however this medication is not yet been verified will reinitiate if we can figure out what dose used to be on if he is still taking it DVT prophylaxis - Continue home apixaban CODE STATUS -DNR CCA okay for short-term intubation as clarified prior to admission Charges/Coding Visit Charges Inpatient E&M: 02826 Init Hosp L2
[2025-05-02 20:30] LABS: Lactic Acid 2.4 mmol/L (0.0-2.0)
[2025-05-02 21:15] LABS: Lactic Acid 1.8 mmol/L (0.0-2.0)
[2025-05-02 21:18] LABS: Troponin T High Sens 4 HR 56 ng/L (<=22)
--- OUTSIDE RECORDS SUMMARY | 2025-05-02 21:50 | XMS RPT_ITS | CCD ---
Author Organization [facility] Care Team Providers Care Hospitality Coordinator Name Role Phone Remy Tejeda MD Unavailable Unknown, Referring Provider Unavailable Unav ailable Unavailable Unavailable Anurag Dolan Unavailable Anurag Dolan Unavailable Hussein Bennett Unavailable Unavailable Adolfo Pond Unavailable Unavailable Kiki Walton Unavailable Unavailable Dr. Anurag Dolan Primary Care Provider Dr. Anurag Dolan Referring Provider [phone] Dr. Brianna Souza Attending Provider Dr. Ab Ventura Attending Provider Giovanna ORE DRESSING ENGINEER, ORE DRESSING ENGINEER-C Kena Attending Provider Dr. Mecca Fall Emergency Provider Dr. Samuel Joel Admit Provider Dr. Samuel Joel Attending Provider Dr. Samuel Joel Other Provider Dr. Manuel Penny Attending Provider Dr. Manuel Penny Other Provider Dr. Erica Griffith Other Provider Kamran ALEMAN, ASH-C Donna Attending Provider Dr. Anurag Dolan Primary Care Provider Dr. Anurag Dolan Referring Provider Dr. Brianna Souza Attending Provider Dr. Erica Griffith Attending Provider Dr. Anurag Parekh Attending Provider Dr. Anurag Parekh Other Provider Dr. Anurag Dolan Primary Care Provider Dr. Anurag Dolan Referring Provider Giovanna ORE DRESSING ENGINEER, ORE DRESSING ENGINEER-C Kena Attending Provider Hiro LION PA Caterina M Attending Provider Hiro LION PA Caterina Isaacs Referring Provider Hiro LION PA Caterina Isaacs Other Provider Dr. Bee Pickens Attending Provider Dr. Anurag Dolan Primary Care Provider Dr. Anurag Dolan Referring Provider Dr. Brianna Souza Attending Provider Dr. Ab Ventura Attending Provider Giovanna ORE DRESSING ENGINEER, ORE DRESSING ENGINEER-C Kena Attending Provider AMISHA Barbosa Attending Provider Dr. Anurag Dolan Primary Care Provider Dr. Anurag Dolan Referring Provider Dr. Brianna Souza Attending Provider Dr. Bee Pickens Attending Provider AMISHA Barbosa Referring Provider Dr. Anurag Dolan Primary Care Provider Dr. Anurag Dolan Referring Provider Dr. Brianna Souza Attending Provider AMISHA Barbosa Attending Provider Dr. Bee Pickens Attending Provider AMISHA Barbosa Referring Provider Dr. Anurag Dolan Primary Care Provider Dr. Anurag Dolan Referring Provider Hiro LION, AMISHA Isaacs Attending Provider Dr. Ab Ventura Attending Provider [phone] Dr. Brianna Souza Attending Provider Dr. Molly Nance Attending Provider Dr. Anurag Dolan Primary Care Provider Dr. Anurag Dolan Referring Provider [phone] Luis F Service - Surg Onc Unavailable Unava ilable María Boggs Unavailable Dr. Anurag Dolan Primary Care Provider Dr. Anurag Dolan Referring Provider Dr. Brianna Souza Attending Provider Dr. Molly Nance Attending Provider Dr. Elliot Howell Attending Provider [phone] ANURAG DOLAN MD A Primary Care Physician [facility] PT, Shy Unavailable Unavailable Dr. Anurag Dolan A Primary Care Unavailable Markus NGUYEN Attending Unavailable MD MARÍA BOGGS Referring Unavailable Dr. Anurag Dolan A Primary Care Unavailable MD COLLEEN,MPH HUSSEIN QUINTEROS Attending Un available MD COLLEEN,MPH HUSSEIN QUINTEROS Attending Un available Dr. Anurag Dolan A Primary Care Unavailable MD COLLEEN,MPH HUSSEIN QUINTEROS Attending Un available Dr. Anurag Dolan A Primary Care Unavailable MD COLLEEN,MPH HUSSEIN QUINTEROS Attending Un available Dr. Anurag Dolan A Primary Care Unavailable Dr. Anurag Dolan A Primary Care Unavailable MD COLLEEN,MPH HUSSEIN QUINTEROS Attending Un available MD COLLEEN,MPH HUSSEIN QUINTEROS Attending Un available Dr. Anurag Dolan A Primary Care Unavailable MD COLLEEN,MPH HUSSEIN QUINTEROS Attending Un available Dr. Anurag Dolan A Primary Care Unavailable MD COLLEEN,MPH HUSSEIN QUINTEROS Attending Un available Dr. Anurag Dolan A Primary Care Unavailable Dr. Anurag Dolan A Primary Care Unavailable Patient, Unavailable Referring Unavailable MD MARÍA BOGGS Admitting Unavailable MD MARÍA BOGGS Attending Unavailable Bethany, Dr. Anurag Rogers Referring Unavailable Bethany, Dr. Osborn A Primary Care Unavailable MD MARÍA BOGGS Attending Unavailable Bethany, Dr. Anurag Rogers Primary Care Unavailable MD MARÍA BOGGS Attending Unavailable MD COLLEEN,MPH HUSSEIN QUINTEROS Referring Un available MD COLLEEN,MPH HUSSEIN QUINTEROS Admitting Un available MD COLLEEN,MPH HUSSEIN QUINTEROS Attending Un available Bethany, Dr. Osborn A Primary Care Unavailable Bethany, Dr. Osborn Primary Care Provider Dr. Anurag Dolan Referring Provider Dr. Brianna Souza Attending Provider Dr. Elliot Howell Referring Provider Dr. Alfa Sprague Attending Provider Maya Gutiérrez Attending Provider Unavailable Giovanna ORE DRESSING ENGINEER, ORE DRESSING ENGINEER-C Kena Attending Provider Dr. Anurag Dolan Primary Care Provider [phone] Anurag Dolan Referring Provider Dr. Brianna Souza Attending Provider Anurag Dolan Primary Care Provider Celio ANDREW, Bee Daniels Unavailable Dr. Anurag Dolan Primary Care Provider [phone] Elliot Howell Attending Provider Dr. Elliot Howell Referring Provider Dr. nAurag Dolan Referring Provider Dr. Anurag Dolan Primary Care Provider Dr. Elliot Howell Attending Provider Dr. Elliot Howell Referring Provider Dr. Anurag Dolan Primary Care Provider [phone] Elliot Howell Attending Provider Dr. Elliot Howell Referring Provider Dr. Anurag Dolan Primary Care Provider Dr. Elliot Howell Attending Provider Dr. Anurag Dolan Primary Care Provider Dr. Anurag Dolan Referring Provider Dr. Brianna Souza Attending Provider AMISHA Barbosa Attending Provider Dr. Ab Ventura Attending Provider BETHANY ANDREW, ANURAG A Primary Care Unavailable MELISSA ANDREW, DR CHUCK Rogers Attending Garret Wills MD, HUSSEIN Reagan Attending Unavailable BETHANY ANDREW, ANURAG A Primary Care Unavailable BETHANY ANDREW, ANURAG A Primary Care Unavailable BETHANY ANDREW, ANURAG A Attending Unavailable GILMAR ANDREW, DR MELANIE Ugalde Attending Tony DOLAN MD, ANURAG A Primary Care Unavailable MELISSA ANDREW, DR CHUCK Rogers Attending Garret Vizcaino MD, ANURAG A Primary Care Unavailable MELISSA ANDREW, DR CHUCK Rogers Attending Unavailab Carrillo ANDREW, ANURAG A Primary Care Unavailable GILMAR ANDREW, DR MELANIE Ugalde Attending Tony DOLAN MD, ANURAG A Primary Care Unavailable MELISSA ANDREW, DR CHUCK Rogers Attending Garret Vizcaino MD, ANURAG A Primary Care Unavailable KILO DOLAN Attending Unavailable BETHANY, ANURAG Primary Care Unavailable STEPHANIE PACK Attending Unavailable BEE PICKENS Referring Unavailable BETHANY, ANURAG Primary Care Unavailable Dr. Anurag Dolan Primary Care Provider [phone] Anurag Dolan Referring Provider [phone] Dr. Brianna Souza Attending Provider Giovanna ORE DRESSING ENGINEER, ORE DRESSING ENGINEER-C Kena Attending Provider Dr. Anurag Dolan MD Primary Care Provider Dr. Anurag Dolan MD Referring Provider Dr. Ankush Lynch DO Attending Provider Dr. Ankush Simons MD Attending Provider Caterina Barbosa Attending Provider Giovanna ORE DRESSING ENGINEER-C, Kena Attending Provider Giovanna ORE DRESSING ENGINEER-C, Kena Referring Provider Harley ANDREW, Dr. Reed Attending Provider Sydney Kelly Attending Provider Unavailable Harley ANDREW, Dr. Reed Referring Provider Harry ANDREW, Dr. Jemal Ashraf Other Provider Dr. Nilda Mcgarry DO Attending Provider Dr. Nilda Mcgarry DO Referring Provider SELF, SELF Referring Unavailable Bethany ANDREW, Dr. Osborn Primary Care Provider [phone] Bethany ANDREW, Dr. Osborn Referring Provider [phone] Harley ANDREW, Dr. Reed Referring Provider Harry ANDREW, Dr. Jemal Ashraf Other Provider Bethany ANDREW, Anurag A Primary Care Provider Edis Rodrigez MD Unavailable Burgess MON, [facility] Unavailable Unavailable EDIS RODRIGEZ Referring Unavailabl e BETHANY, ANURAG A Primary Care Unavailable BETHANY, ANURAG A Primary Care Unavailable SELF Referring Unavailable SELF Referring Unavailable EDIS RODRIGEZ Attending Unavailabl e DOLAN, ANURAG A Primary Care Unavailable Bethany ANDREW, Dr. Osborn Primary Care Provider Giovanna ORE DRESSING ENGINEER-C, Kena Attending Provider Bethany ANDREW, Dr. Osborn Referring Provider Mati Castellano MD Emergency Provider [phone] Dolan, Anurag Attending Unavailable Dolan, Anurag Referring Unavailable Dolan, Anurag Primary Care Unavailable Chuck Irene Unavailable Dolan, Anurag Primary Care Unavailable Giovanna ORE DRESSING ENGINEER, Kena Referring Unavailable Giovanna ORE DRESSING ENGINEER, Kena Attending Unavailable Dolan, Anurag Primary Care Unavailable Brianna Souza Referring Unavailable Brianna Souza Attending Unavailable Dolan, Anurag Referring Unavailable Dolan, Anurag Primary Care Unavailable Ankush Lynch Attending Unavailable Mati Castellano Attending Unavailable Dolan, Anurag Primary Care Unavailable Dolan, Anurag Primary Care Unavailable Giovanna ORE DRESSING ENGINEER, Kena Referring Unavailable Giovanna ORE DRESSING ENGINEER, Kean Attending Unavailable Dolan, Anurag Primary Care Unavailable Giovanna ORE DRESSING ENGINEER, Kena Attending Unavailable Giovanna ORE DRESSING ENGINEER, Kena Referring Unavailable Dolan, Anurag Primary Care Unavailable Giovanna ORE DRESSING ENGINEER, Kena Referring Unavailable Giovanna ORE DRESSING ENGINEER, Kena Attending Unavailable Dolan, Anurag Primary Care Unavailable Isckarus, Mansour Referring Unavailable Isckarus, Mansour Attending Unavailable Dolan, Anurag Referring Unavailable Dolan, Anurag Primary Care Unavailable Giovanna ORE DRESSING ENGINEER, Kena Attending Unavailable Dolan, Anurag Referring Unavailable Isckarus, Mansour Attending Unavailable Dolan, Anurag Primary Care Unavailable Dolan, Anurag Referring Unavailable Isckarus, Mansour Attending Unavailable Dolan, Anurag Primary Care Unavailable Dolan, Anurag Referring Unavailable Dolan, Anurag Primary Care Unavailable Isckarus, Mansour Attending Unavailable Dolan, Anurag Referring Unavailable Dolan, Anurag Primary Care Unavailable Isckarus, Mansour Attending Unavailable Dolan, Anurag Referring Unavailable Dolan, Anurag Primary Care Unavailable Giovanna ORE DRESSING ENGINEER, Kena Attending Unavailable Dolan, Anurag Referring Unavailable Dolan, Anurag Primary Care Unavailable Ankush Simons Attending Unavailable Dolan, Anurag Referring Unavailable Dolan, Anurag Primary Care Unavailable Isckarus, Mansour Attending Unavailable Maximiliano Aguilar Attending Unavailable Dolan, Anurag Referring Unavailable Dolan, Anurag Primary Care Unavailable Jemal Mcdonald Consulting Unavailable Dolan, Anurag Primary Care Unavailable Isckarus, Donavanour Attending Unavailable Isckarus, Mansour Referring Unavailable Dolan, Anurag Primary Care Unavailable Sydney Kelly Attending Unavailable Dolan, Anurag Referring Unavailable Dolan, Anurag Primary Care Unavailable Ankush Lynch Attending Unavailable Dolan, Anurag Referring Unavailable Dolan, Anurag Primary Care Unavailable Isckarus, Mansour Attending Unavailable Nilda Mcgarry Attending Unavailable Zeferino Nilda Referring Unavailable Dolan, Anurag Primary Care Unavailable Dolan, Anurag Primary Care Unavailable Giovanna ORE DRESSING ENGINEER, Kena Referring Unavailable Giovanna ORE DRESSING ENGINEER, Kena Attending Unavailable Dolan, Anurag Referring Unavailable Dolan, Anurag Primary Care Unavailable Giovanna ORE DRESSING ENGINEER, Kena Attending Unavailable Erni Adair Consulting Unavailable Jemal Mcdonald Attending Unavailable Jemal Mcdonald Referring Unavailable Dolan, Anurag Primary Care Unavailable Dolan, Anurag Referring Unavailable Dolan, Anurag Primary Care Unavailable Caterina Barbosa Attending Unavail able Dolan, Anurag Referring Unavailable Dolan, Anurag Primary Care Unavailable Giovanna ORE DRESSING ENGINEER, Kena Attending Unavailable Dolan, Anurag Referring Unavailable Brianna Souza Attending Unavailable Dolan, Anurag Primary Care Unavailable Dolan, Anurag Referring Unavailable Dolan, Anurag Primary Care Unavailable Giovanna ORE DRESSING ENGINEER, Kena Attending Unavailable Dolan, Anurag Referring Unavailable Dolan, Anurag Primary Care Unavailable Giovanna ORE DRESSING ENGINEER, Kena Attending Unavailable Dolan, Anurag Referring Unavailable Brianna Souza Attending Unavailable Dolan, Anurag Primary Care Unavailable Ankush Lynch Attending Unavailable Dolan, Anurag Referring Unavailable Dolan, Anurag Primary Care Unavailable Allergies Allergy Classification Reported Allergen(s) Allergy Type Date of Onset Reaction(s) Facility (3 sources) No Alert Propensity to adverse reactions to drug 1 [facility] (2 sources) pembrolizumab Drug Allergy 2 [facility] (3 sources) environmental [Other] Propensity to adverse reactions 8 [facility] Work Phone: (1 source) OTHER; Translations: [OTHER] Propensity to adverse reactions (disorder) 8 [facility] Repository Medications Current Medications Medication Drug Class(es) Dates Sig (Normalized) Sig (Original) acetaminophen 500 mg oral tablet (20 sources) Start: 12-21-2024 take 2 tablets by mouth every eight hours as needed for pain Acetaminophen (Tylenol Extra Strength) 500 mg tablet Active 1000 mg PO EVERY 8 HOURS NEEDED as needed for pain December 21, 2024 12:34pm Start: 12-24-2022 take 2 tablets by mo uth every six hours acetaminophen 325 mg oral tablet ; 2 tab(s) orally every 6 hours Quantity: 0 Refills: 0 Ordered: 24-Dec-2022 Aspen Benton Start: 24-Dec-2022 Generic Substitution Allowed Start: 10-07-2021 Tylenol Extra Strength 500 MG Oral Tablet Quantity: 0 Refills: 0 Ordered: 07-Oct-2021 DO Start : 07-Oct-2021 Active Start: 06-05-2021 End: 12-21-2024 take 2 tablets by mouth every six hours as needed for pain Acetaminophen (Tylenol Extra Strength) 500 mg tablet Discontinued 1000 mg PO EVERY 6 HOURS as needed for pain August 25, 2023 1:33pm December 21, 2024 12:38pm Start: 06-05-2021 take 1 tablet by breanne th every six hours Acetaminophen (Tylenol Extra Strength) 500 mg tablet Active 500 MG PO EVERY 6 HOURS June 04, 2021 11:00pm Start: 05-26-2021 take 2 tablets by mo uth every six hours acetaminophen 325 mg oral tablet ; 2 tab(s) orally every 6 hours Quantity: 0 Refills: 0 Ordered: 26-May-2021 Aspen Benton Start: 26-May-2021 Generic Substitution Allowed take 1 tablet by breanne th every eight hours as needed acetaminophen (TYLENOL) 500 mg tablet Take 500 mg by mouth every 8 hours as needed. Active Tylenol ; 650 or ally 2 times a day Quantity: 0 Refills: 0 Ordered: 23-May-2021 Johana Guido Generic Substitution Allowed 0.05 ml aflibercept 40 mg/ml injection (8 sources) Vascular Endothelial Growth Factor Inhibitor Start: 10-14-2022 Aflibercept (Eylea) 2 mg/0.05 mL solution Active 2 MG INTRAVIT ONCE October 14, 2022 12:00am 120 actuat albuterol 0.1 mg/actuat / ipratropium bromide 0.02 mg/actuat inhalation spray (2 sources) Anticholinergic, beta2-Adrenergic Agonist take 20-100 ug by inhalation four times daily as needed ipratropium-albut fareed (Combivent Respimat) 20-100 MCG/ACT inhaler Inhale 1 puff 4 times daily as needed. 0 Active 24 hr alfuzosin hydrochloride 10 mg extended release oral tablet (20 sources) alpha-Adrenergic Ryder Start: 09-28-2022 take 1 tablet by mouth every twenty-four hours at mealtime Alfuzosin 10 mg tablet extended release 24 hr Active 10 mg PO AT BEDTIME September 28, 2022 12:00am administer after the same meal each day Start: 08-18-2022 End: 04-22-2025 take 10 mg by mouth once daily at mealtime Alfuzosin Active 10 MG PO DAILY@1000 September 28, 2022 12:00am administer after the same meal each day apixaban 5 mg oral tablet (20 sources) Factor Xa Inhibitor Start: 03-09-2025 take 2.5 mg by mouth twice daily Apixaban (Eliquis) 5 mg tablet Active 2.5 mg PO TWICE A DAY March 09, 2025 12:00am Start: 03-01-2025 take 1 tablet by breanne th twice daily apixaban (ELIQUIS) 2.5 mg tab(s) Take 2.5 mg by mouth two times a day. 03/01/2025 Active Start: 02-23-2022 End: 03-09-2025 take 1 tablet by mouth twice daily Apixaban (Eliquis) 5 mg tablet Discontinued 5 mg PO TWICE A DAY 180 October 01, 2023 1:20pm March 09, 2025 9:21am ascorbic acid 125 mg / iron carbonyl 65 mg oral tablet (2 sources) Vitamin C take 1 tablet by mouth once daily Iron-Vitamin C 65-125 MG tablet Take 65 mg by mouth daily. 0 Active betamethasone 0.5 mg/ml topical cream (10 sources) Corticosteroid Start: 05-05-2022 Betamethasone Dipropionate Active 1 APPLIC TOPICAL DAILY May 04, 2022 11:00pm Start: 04-21-2022 Betamethasone Dipropionate Aug 0.05 % External Cream APPLY CREAM TO THE BACK TWICE DAILY FOR 2 WEEKS, THEN DO NOT APPLY FOR ONE WEEK. Quantity: 100 Refills: 0 Ordered: 21-Apr-2022 DO Start : 21-Apr-2022 Active bismuth subsalicylate 17.5 mg/ml oral suspension (6 sources) Bismuth Start: 12-21-2024 Bismuth Subsal icylate (Pepto-Bismol) 262 mg/15 mL suspension Active 524 mg PO THREE TIMES A DAY as needed for diarrhea December 21, 2024 1:00am do not exceed 8 doses in a 24 hour period bismuth subsalic ylate (PEPTO-BISMOL ORAL) Take 40 mg by mouth as needed. Active calcium carbonate 1500 mg or al tablet (20 sources) Start: 09-13-2012 CALCIUM 600 TA BS 1 tablet daily CALCIUM CARBONATE TABS [id number] Shy Pacheco LPN Start: 01-31-2009 End: 04-22-2025 take 1 tablet by mouth once daily Calcium Carbonate (Calcium 600) 600 mg calcium (1,500 mg) tablet Active 600 mg PO DAILY January 20, 2022 1:00am calcium carbonat e (Os-Jewel) 1250 (500 Ca) MG tablet Take 600 mg by mouth daily. 0 Active camphor 5 mg/ml / menthol 5 mg/ml topical lotion (6 sources) Start: 11-12-2022 Camphor-Mentho l (Sarna Original) 0.5-0.5 % lotion Active 1 APPLIC TOPICAL 2 to 3 times per day November 12, 2022 12:00am cefTRIAXone (20 sources) Cephalosporin Antibacterial Start: 02-19-2023 Ceftriaxone Active 2 GM IV Q24H February 19, 2023 12:00am dx: empyema stop date 03/12/23 weekly bmp and cbc. Fax to [phone] Start: 02-03-2023 End: 02-16-2023 take 2 g intravenously every twenty-four hours Ceftriaxone Discontinued 2 GM IV Q24H February 03, 2023 12:00am February 16, 2023 6:35pm stop date 03/15/23 Start: 02-03-2023 End: 02-16-2023 take 2 g intravenously every twenty-four hours Ceftriaxone Discontinued 2 GM IV Q24H February 03, 2023 1:00am February 16, 2023 7:35pm stop date 03/15/23 Start: 02-02-2023 cefTRIAXone 2 g/50 [id number] dextrose intravenous solution ; intravenous every 24 hours for 6 weeks; stop date 03/15/2023* Quantity: 0 Refills: 0 Ordered: 02-Feb-2023 Kilo Yadav Start: 02-Feb-2023 Generic Substitution Allowed cephalexin 250 mg oral capsule (3 sources) Cephalosporin Antibacterial Start: 04-29-2023 take 250 mg by mouth every eight hours Cephalexin Active 250 MG PO Q8H April 29, 2023 12:00am take 1 capsule by [facility] three times daily cephalexin (Keflex) 250 MG capsule Take 250 mg by mouth 3 times daily. 0 Active cholecalciferol 0.025 mg oral tablet (20 sources) Vitamin D Start: 12-21-2024 take 1 tablet by mouth once daily Cholecalciferol (Vitamin D3) 25 mcg (1,000 unit) tablet Active 25 ug PO daily December 21, 2024 1:00am Start: 06-22-2024 End: 12-21-2024 take 1 capsule by mouth once daily Cholecalciferol (Vitamin D3) 50 mcg (2,000 unit) capsule Discontinued 25 ug PO DAILY June 22, 2024 10:49am December 21, 2024 12:33pm Start: 10-28-2023 End: 06-22-2024 take 1 capsule by mouth once daily Cholecalciferol (Vitamin D3) 50 mcg (2,000 unit) capsule Discontinued 50 ug PO DAILY October 28, 2023 1:00am June 22, 2024 10:49am Start: 11-12-2022 End: 02-16-2023 take 1 capsule by mouth once daily Cholecalciferol (Vitamin D3) 25 mcg (1,000 unit) capsule Discontinued 25 ug PO DAILY November 12, 2022 1:00am February 16, 2023 7:35pm take 1 tablet by mouth once chol ecalciferol (VITAMIN D) 1,000 unit tab tablet Take 1,000 Units by mouth every afternoon. Active take 1 capsule by [facility] once daily cholecalciferol (Vitamin D-3) 125 MCG (5000 UT) capsule Take 1,000 Units by mouth daily. Vitamin D not D3 0 Active chondroitin sulfates 400 mg / glucosamine sulfate 500 mg oral tablet (2 sources) take 2 tablets by mouth once daily glucosamine-chondroitin 500-400 MG tablet Take 2 tablets by mouth 1 (one) time each day. 0 Active glucosamine-lucía droitin 500-400 MG tablet Take 1 tablet by mouth in the morning and 1 tablet at noon and 1 tablet before bedtime. 0 Active cyproheptadine hydrochloride 4 mg oral tablet (4 sources) Start: 04-30-2025 take 1 tablet by mouth at bedtime as needed Cyproheptadine 4 mg tablet Active 4 mg PO AT BEDTIME as needed for insomnia April 30, 2025 12:00am take 1 tablet by mouth once cypr oheptadine (PERIACTIN) 4 mg tablet Take 4 mg by mouth one time only. Active diphenhydrAMINE hydrochloride 25 mg oral capsule (14 sources) Histamine-1 Receptor Antagonist Start: 12-21-2024 Diphenhydramine Hcl (Allergy Relief(Diphenhydramin)) 25 mg capsule Active 50 mg PO AT BEDTIME as needed for allergy symptoms December 21, 2024 1:00am Start: 07-15-2022 take 1 capsule by [facility] at bedtime Diphenhydramine Hcl (Benadryl) 25 mg capsule Active 25 MG PO AT BEDTIME July 14, 2022 11:00pm take 1 tablet by breanne th every six hours as needed diphenhydrAMINE (BENADRYL ALLERGY) 25 mg tablet Take 25 mg by mouth every 6 hours as needed. Active fexofenadine hydrochloride 60 mg oral tablet (20 sources) Histamine-1 Receptor Antagonist Start: 07-15-2022 take 1 tablet by mouth once daily Fexofenadine (Amina Allergy) 60 mg tablet Active 60 MG PO DAILY July 14, 2022 11:00pm Start: 05-25-2022 End: 06-22-2022 take 1 tablet by mouth twice daily as needed Fexofenadine (Amina Allergy) 60 mg tablet Discontinued 60 mg PO TWICE A DAY as needed for itching May 25, 2022 12:00am June 22, 2022 2:05pm Start: 05-12-2022 Fexofenadine H Cl - 180 MG Oral Tablet TAKE TABLET Quantity: 0 Refills: 0 Ordered: 12-May-2022 DO Start : 12-May-2022 Active finasteride 5 mg oral tablet (10 sources) 5-alpha Reductase Inhibitor Start: 10-12-2023 take 1 tablet by mouth at bedtime Finasteride 5 mg tablet Active 5 mg PO AT BEDTIME October 12, 2023 1:00am Start: 10-12-2023 Finasteride Ac tive MG PO October 12, 2023 12:00am gabapentin 600 mg oral tablet (1 source) Anti-epileptic Agent gabapentin 600 mg oral tablet ; 0.5 tab(s) orally once a day (in the morning) and 1 tablet at night Quantity: 0 Refills: 0 Ordered: 27-Jan-2023 Donna Acuna Generic Substitution Allowed glucosamine sulfate 500 mg oral tablet (20 sources) Start: take 2 tablets by mouth once daily Glucosamine Sulfate (Glucosamine) 500 mg tablet Active 1000 mg PO DAILY October 28, 2023 1:00am administer with a meal Start: 10-28-2023 take 1 tablet by breanne th once daily Glucosamine Sulfate (Glucosamine) 500 mg tablet Active 500 MG PO DAILY October 28, 2023 1:00am administer with a meal Start: 03-13-2022 End: 02-16-2023 take 2 tablets by mouth once daily Glucosamine Sulfate (Glucosamine) 500 mg tablet Discontinued 1000 mg PO DAILY March 13, 2022 9:26am February 16, 2023 7:35pm Start: 11-04-2021 End: 03-13-2022 take 1 tablet by mouth once daily Glucosamine Sulfate (Glucosamine) 500 mg tablet Discontinued 500 mg PO DAILY November 04, 2021 4:34pm March 13, 2022 9:31am Start: 06-13-2021 End: 11-04-2021 take 1 tablet by mouth twice daily Glucosamine Sulfate (Glucosamine) 500 mg Tablet Discontinued 500 mg PO TWICE A DAY June 13, 2021 12:00am November 04, 2021 4:35pm Start: 09-13-2012 GLUCOSAMINE BANDA LFATE 500 MG TABS 3 tablets daily GLUCOSAMINE SULFATE [id number] Shy Junior KUMAR Start: 06-27-2007 End: 04-22-2025 take 1 tablet by mouth three times daily Glucosamine Sulfate (GLUCOSAMINE) 500 mg ORAL Tab Take one tab three times daily 1 0 06/27/2007 04/22/2025 Discontinued Glucosamine 500 MG Oral Capsule TAKE DIRECTED. Quantity: 0 Refills: 0 Ordered: 26-Feb-2023 DO Active Glucosamine 500 MG Oral Capsule Quantity: 0 Refills: 0 Ordered: 08-Jan-2023 DO Active Glucosamine 500 MG Oral Capsule Quantity: 0 Refills: 0 Ordered: 10-Nov-2022 DO Active Glucosamine 500 MG Oral Capsule Quantity: 0 Refills: 0 Ordered: 21-Apr-2021 DO Active take 1 capsule by mo inh twice daily glucosamine 500 mg oral capsule ; 1 cap(s) orally 2 times a day Quantity: 0 Refills: 0 Ordered: 23-May-2021 Johana Guido Generic Substitution Allowed glycerin 2 mg/ml / hypromellose 2 mg/ml / polyethylene glycol 400 10 mg/ml ophthalmic solution (17 sources) Non-Standardized Chemical Allergen Start: 02-16-2023 Peg 472-[id number] n (Artificial Tears(Ru-Epvj-Mvfe)) 1-0.2-0.2 % Drops Active 2 NMA EACH EYE Q1H as needed for DRY EYES 0 February 16, 2023 12:00am Start: 02-16-2023 Peg 400-Hyprom ellose-Glycerin (Artificial Tears(Rp-Lupw-Ulcg)) 1-0.2-0.2 % Drops Active 2 DRP EACH EYE Q1H 0 February 16, 2023 12:00am 12 hr guaiFENesin 1200 mg extended release oral tablet (5 sources) Start: 03-09-2025 take 1 tablet by mouth twice daily, then take 1 tablet by mouth every twelve hours Guaifenesin (Mucinex) 1,200 mg tablet extended release 12hr Active 1200 mg PO TWICE A DAY March 09, 2025 12:00am guaiFENesin (MUC INEX) 600 mg 12 hr tablet Take 1,200 mg by mouth two times a day as needed for cold/allergy symptoms. Active lactobacillus acidophilus 46 0 mg oral capsule (19 sources) Start: 03-12-2025 Lactobacillus Acidophilus (Florajen Acidophilus) 20 billion cell capsule Active 100 NMA PO 3 TIMES DAILY WITH MEALS March 12, 2025 12:00am Start: 03-12-2025 Lactobacillus Acidophilus (Florajen Acidophilus) 20 billion cell capsule Active 100 NMA PO daily March 12, 2025 12:00am Start: 03-29-2023 End: 10-28-2023 Lactobacillus Acidophilus (P robiotic Acidophilus) 1.5 mg (250 million cell) capsule Discontinued 1000 NMA PO DAILY March 29, 2023 12:00am October 28, 2023 12:27pm take 1 capsule by [facility] at mealtime Lactobacillus acidophilus (FLORAJEN ACIDOPHILUS ORAL) Take 1 capsule by mouth with meals. Active levothyroxine sodium 0.112 mg oral tablet (20 sources) l-Thyroxine Start: 12-21-2024 take 1 tablet by mouth once daily Levothyroxine 112 mcg tablet Active 112 ug PO daily December 21, 2024 12:36pm Start: 01-06-2024 End: 12-21-2024 take 1 tablet by mouth every other day Levothyroxine 112 mcg tablet Discontinued 112 ug PO .QOD January 06, 2024 11:49am December 21, 2024 12:38pm Start: 01-06-2024 End: 12-21-2024 take 1 tablet by mouth every other day Levothyroxine 100 mcg tablet Discontinued 100 ug PO .QOD January 06, 2024 1:00am December 21, 2024 12:36pm Start: 02-10-2022 End: 01-06-2024 take 1 tablet by mouth once daily Levothyroxine 112 mcg tablet Discontinued 112 ug PO DAILY November 06, 2022 10:56am February 03, 2023 11:04pm Start: 11-04-2021 End: 02-10-2022 take 1 tablet by mouth once daily Levothyroxine 75 mcg tablet Discontinued 75 ug PO DAILY November 04, 2021 1:00am February 10, 2022 7:28am Start: 10-07-2021 Levothyroxine Sodium 25 MCG Oral Capsule Quantity: 0 Refills: 0 Ordered: 07-Oct-2021 DO Start : 07-Oct-2021 Active Start: 09-23-2021 End: 11-04-2021 take 1 tablet by mouth once daily Levothyroxine 25 mcg tablet Discontinued 25 ug PO DAILY September 23, 2021 12:00am November 04, 2021 4:59pm Take on an empty stomach levothyroxine (T irosint) 112 MCG capsule Take by mouth every other day. 0 Active levothyroxine (T irosint) 100 MCG capsule Take by mouth every other day. 0 Active levothyroxine (T irosint) 112 MCG capsule Take by mouth every morning (before breakfast). 0 Active take 1 tablet by once daily levothyroxine 112 mcg (0.112 mg) oral tablet ; 1 tab(s) orally once a day Quantity: 0 Refills: 0 Ordered: 24-Dec-2022 Yves Mcgarry Generic Substitution Allowed lidocaine 25 mg/ml / prilocaine 25 mg/ml topical cream (20 sources) Antiarrhythmic, Amide Local Anesthetic Start: 11-18-2023 End: 03-15-2024 Lidocaine-Prilocaine 2.5-2.5 % cream Active 1 NMA TOPICAL ONCE as needed for Port access March 15, 2024 3:26pm Start: 11-18-2023 Lidocaine-Pril ocaine Active 1 APPLIC TOPICAL ONCE November 18, 2023 2:12pm Start: 06-05-2021 End: 11-12-2022 Lidocaine-Prilocaine 2.5-2.5 % cream Discontinued 1 NMA TOPICAL ONCE as needed for Port access February 09, 2022 1:35pm November 12, 2022 2:29pm Start: 06-05-2021 End: 11-12-2022 Lidocaine-Prilocaine Discont inued 1 APPLIC TOPICAL ONCE February 09, 2022 1:35pm November 12, 2022 2:29pm lidocaine-priloc zohra (EMLA) 2.5-2.5 % cream 1 application as needed. Active loratadine 10 mg oral tablet (6 sources) Start: 12-21-2024 take 1 tablet by mouth once daily as needed Loratadine 10 mg tablet Active 10 mg PO daily as needed for allergy symptoms December 21, 2024 1:00am take 10 mg by mouth once daily l oratadine (CLARITIN) 5 mg/5 mL syrup Take 10 mg by mouth once daily. Active melatonin 3 mg oral capsule (4 sources) Start: 04-30-2025 take 1 capsule by mouth at bedtime Melatonin 3 mg capsule Active 3 mg PO AT BEDTIME April 30, 2025 12:00am take 1 capsule by [facility] once daily at bedtime melatonin 3 mg capsules Take 3 mg by breanne th daily at bedtime. Active metoprolol tartrate 25 mg oral tablet (20 sources) beta-Adrenergic Ryder Start: 04-30-2025 take 1 tablet by mouth once daily Metoprolol Tartrate 25 mg tablet Active 25 mg PO DAILY April 30, 2025 12:00am Start: 05-12-2022 End: 04-30-2025 take 1 tablet by mouth twice daily Metoprolol Tartrate 25 mg tablet Discontinued 25 mg PO TWICE A DAY July 16, 2022 2:41pm February 03, 2023 11:04pm Start: 02-23-2022 End: 07-10-2022 Metoprolol Tartrate 25 mg ta blet Discontinued 12.5 mg PO TWICE A DAY March 13, 2022 11:34am July 10, 2022 9:01am Start: 02-23-2022 End: 07-10-2022 take 12.5 mg by mouth twice daily Metoprolol Tartrate Discontinued 12.5 MG PO TWICE A DAY March 13, 2022 11:34am July 10, 2022 9:01am take 1 tablet by breanne th once daily in the evening metoprolol tartrate, short acting, (LOPRESSOR) 25 mg tablet Take 25 mg by mouth every evening. Active Multiple Vitamins-Minerals (multivitamin with minerals) tablet (2 sources) take 2 tablets by mouth once daily Multiple Vitamins-Minerals (multivitamin with minerals) tablet Take 2 tablets by mouth daily. 0 Active Multivitamin preparation (7 sources) Start: 10-28-2023 take 1 tablet by mouth once daily Multivitamin Active 1 TABLET PO DAILY October 28, 2023 1:00am Start: 10-28-2023 take 1 tablet by breanne th once daily Multivitamin Active 1 TABLET PO DAILY October 28, 2023 12:00am take 1 tablet by breanne th once daily Multiple Vitamins oral tablet ; 1 tab(s) orally once a day Quantity: 0 Refills: 0 Ordered: 27-Jan-2023 Donna Acuna Generic Substitution Allowed multivitamin Clem ntity: 0 Refills: 0 Ordered: 07-May-2021 Roque Travis Generic Substitution Allowed Multivitamin tablet (3 sources) Start: 10-28-2023 Multivitamin t ablet Active 1 {tbl} PO DAILY October 28, 2023 1:00am multivitamin tablet (3 sources) take 1 tablet by mouth once daily multivitamin tablet Take 1 tablet by mouth once daily. Active Multivitamin With Minerals (20 sources) Start: 10-31-2020 Multivitamin W ith Minerals Active 1 EACH PO DAILY October 31, 2020 9:23am Start: 10-31-2020 End: 02-16-2023 Multivitamin With Minerals D iscontinued 1 EACH PO WITH BREAKFAST October 31, 2020 12:00am February 16, 2023 6:35pm Start: 10-31-2020 End: 02-16-2023 Multivitamin With Minerals D iscontinued 1 EACH PO WITH BREAKFAST October 31, 2020 1:00am February 16, 2023 7:35pm Start: 10-31-2020 Multivitamin W ith Minerals Active 1 EACH PO DAILY October 31, 2020 12:00am Start: 10-31-2020 Multivitamin W ith Minerals Active 1 EACH PO DAILY October 31, 2020 1:00am 10 ml nivolumab 10 mg/ml injection (1 source) Programmed Receptor-1 Blocking Antibody nivolumab (Opdivo) 100 mg/10 mL chemo injection Infuse into a venous catheter Once. 0 Active ondansetron 4 mg oral tablet (20 sources) Serotonin-3 Receptor Antagonist Start: take 1 tablet by mouth every eight hours as needed for nausea and vomiting Ondansetron Hcl 4 mg tablet Active 4 mg PO Q8H as needed for nausea and vomiting March 09, 2025 12:00am Start: 02-23-2022 End: 03-13-2022 take 1 tablet by mouth every eight hours as needed for nausea and vomiting Ondansetron 4 mg tablet,disintegrating Discontinued 4 mg PO Q8H as needed for nausea and vomiting February 23, 2022 12:00am March 13, 2022 9:29am polyethylene glycol 3350 [id number] mg powder for oral solution (6 sources) Osmotic Laxative Start: 02-02-2023 take 17 g by mouth once daily Polyethylene Glycol 3350 Active 17 GM PO DAILY February 03, 2023 1:00am Polyvinyl Alcohol / Povidone (3 sources) take 1 drop(s) into the eye(s) once daily polyvinyl alcohol/povidone (ARTIFICIAL TEARS OPHTHALMIC) Use 1 drop in eyes once daily. Active microencapsulated potassium chloride 20 meq extended release oral tablet (20 sources) Start: 02-16-2023 Potassium Chlo ride (Klor-Con M20) 20 mEq Tablet,Er Particles/Crystals Active 20 MEQ PO TWICE DAILY WITH MEALS 60 February 16, 2023 12:00am Start: 03-02-2022 End: 06-22-2022 take 1 tablet by mouth once daily Potassium Chloride 10 mEq tablet,ER particles/crystals Discontinued 10 meq PO DAILY March 02, 2022 12:14pm June 22, 2022 2:06pm POTASSIUM-99 ORAL (3 sources) take 1 tablet by mouth once daily POTASSIUM-99 ORAL Take 1 tablet by mouth once daily. Active predniSONE 10 mg oral tablet (11 sources) Start: 04-30-2025 take 2 tablets by mouth once daily Prednisone 10 mg tablet Active 10 mg PO DAILY April 30, 2025 12:00am IN ADDITION TO 20MG PER [facility]CF MED LIST Start: 04-30-2025 take 10 mg by mouth once daily Prednisone 20 mg tablet Active 20 mg PO daily April 30, 2025 12:00am IN ADDITION TO 10MG PER ECF MED LIST Start: 03-07-2025 End: 04-30-2025 take 4 tablets by mouth once daily Prednisone 20 mg tablet Discontinued 80 mg PO daily March 07, 2025 11:19am April 30, 2025 4:12pm Start: 01-18-2023 take 60 mg by mouth once daily Prednisone Active 60 MG PO DAILY January 18, 2023 12:00am INV PREDNISONE 1 0 mg TABLET (IRB 23-471) Take 20 mg by mouth once daily. For Investigational Drug Use Only, PI: Charlie Sandra. Active prostagenix (2 sources) prostagenix ; 2 times a day Quantity: 0 Refills: 0 Ordered: 23-May-2021 Johana Guido Generic Substitution Allowed Sennosides (Black-Draught Lax-Senna) 8.6 mg tablet (1 source) Start: 04-30-2025 take 1 tablet by mouth twice daily Sennosides (Black-Draught Lax-Senna) 8.6 mg tablet Active 8.6 mg PO TWICE A DAY April 30, 2025 12:00am sennosides, halfway 8.6 mg oral tablet (3 sources) take 1 tablet by mouth twice daily Senna 8.6 mg tab Take 8.6 mg by mouth two times a day. Active triamcinolone acetonide 1 mg/ml topical cream (20 sources) Corticosteroid Start: 07-26-2024 Triamcinolone Acetonide 0.1 % cream Active 1 NMA TOPICAL 2 to 3 times per day July 26, 2024 12:00am Start: 10-07-2021 Triamcinolone Acetonide 0.1 % External Cream Quantity: 0 Refills: 0 Ordered: 07-Oct-2021 DO Start : 07-Oct-2021 Active Start: 09-15-2021 Triamcinolone Acetonide Active 1 APPLIC TOPICAL DAILY September 14, 2021 11:00pm triamcinolone ac etonide (KENALOG) 0.1 % cream Apply 1 application to affected area as needed. Active triamcinolone (K enalog) 0.1 % lotion Apply topically as needed. 0 Active Zinc Sulfate (1 source) take 1 tablet by once daily Zinc 140 mg (as elemental zinc 50 mg) oral tablet ; 1 tab(s) orally once a day Quantity: 0 Refills: 0 Ordered: 24-Dec-2022 Yves Mcgarry Generic Substitution Allowed Completed/Discontinued Medications Medication Drug Class(es) Dates Sig (Normalized) Sig (Original) acetaminophen 325 mg / oxyCODONE hydrochloride 5 mg oral tablet (11 sources) Opioid Agonist Start: 05-06-2021 take 1 tablet by mouth every six hours as needed oxyCODONE-Acetamino phen 5-325 MG Oral Tablet TAKE 1 TABLET EVERY 6 HOURS NEEDED. Quantity: 20 Refills: 0 Ordered: 06-May-2021 Colleen BLACK, Hussein Start : 06-May-2021 Active acetylcysteine 600 mg oral capsule (20 sources) Antidote, Mucolytic, Antidote for Acetaminophen Overdose Start: 09-18-2022 End: 02-16-2023 take 1 capsule by mouth twice daily Acetylcysteine 600 mg capsule Discontinued 600 mg PO TWICE A DAY October 13, 2022 1:00am February 16, 2023 7:34pm amLODIPine 5 mg oral tablet (20 sources) Dihydropyridine Calcium Channel Ryder Start: 10-07-2021 amLODIPine Besylate 5 MG Oral Tablet Quantity: 0 Refills: 0 Ordered: 07-Oct-2021 DO Start : 07-Oct-2021 Active Start: 10-06-2021 End: 04-22-2025 take 1 tablet by mouth once daily Amlodipine 5 mg tablet Active 5 mg PO DAILY October 06, 2021 1:00am Amoxicillin-Pot Clavulanate 500-125 mg tablet (2 sources) Start: 03-12-2025 End: 03-26-2025 Amoxicillin-Pot Clavulanate 500-125 mg tablet Discontinued {tbl} PO March 12, 2025 12:00am March 26, 2025 10:29am aspirin 81 mg delayed release oral tablet (20 sources) Nonsteroidal Anti-inflammatory Drug Start: 10-07-2021 Aspirin EC 81 MG Ora l Tablet Delayed Release Quantity: 0 Refills: 0 Ordered: 07-Oct-2021 DO Start : 07-Oct-2021 Active Start: 09-13-2012 ADULT ASPIRIN REGIMEN 81 MG TBEC 1 tablet daily ASPIRIN [id number] Shy Pacheco LPN Start: 01-30-2008 End: 04-22-2025 Aspirin (Adult Low Dose Aspi rin) 81 mg tablet,delayed release (DR/EC) Discontinued 81 mg PO DAILY October 29, 2020 1:00am March 13, 2022 9:27am bisoprolol fumarate 5 mg oral tablet (20 sources) beta-Adrenergic Ryder Start: 01-02-2021 Bisopr olol Fumarate 5 MG Oral Tablet Quantity: 45 Refills: 0 Ordered: 26-Mar-2021 DO Start : 02-Jan-2021 Active Start: 10-29-2020 End: 01-19-2024 take 2.5 mg by mouth at bedtime Bisoprolol Fumarate 5 mg tablet Discontinued 2.5 mg PO AT BEDTIME October 29, 2020 1:00am February 23, 2022 11:30am Start: 10-29-2020 End: 02-23-2022 take 2.5 mg by mouth at bedtime Bisoprolol Fumarate Di scontinued 2.5 MG PO AT BEDTIME October 29, 2020 1:00am February 23, 2022 11:30am Start: 07-04-2018 BISOPROLOL FUM ARATE 5 MG TABS 1/2 tablet at bedtime BISOPROLOL FUMARATE [id number] Shy Pacheco LPN Start: 01-14-2015 End: 04-22-2025 take 1 tablet by mouth once daily bisoprolol (ZEBETA) 5 mg tablet Indications: Special screening for malignant neoplasms, colon Take 5 mg by mouth once daily. 01/14/2015 04/22/2025 Discontinued Bromfenac 0.07 % drops (3 sources) Start: 06-08-2024 End: 07-26-2024 take 0.07 drop(s) into the eye(s) once daily Bromfenac 0.07 % drops Discontinued 1 NMA OPHTHALMIC DAILY June 08, 2024 12:00am July 26, 2024 10:19am left eye Ceftriaxone 2 gram Piggyback (3 sources) Start: 02-03-2023 End: 02-16-2023 take 2 g intravenously every twenty-four hours Ceftriaxone 2 gram Piggyback Discontinued 2 g IV Q24H February 03, 2023 1:00am February 16, 2023 7:35pm stop date 03/15/23 dextromethorphan hydrobromide 3 mg/ml / promethazine hydrochloride 1.25 mg/ml oral solution (3 sources) Phenothiazine, Uncompetitive D-fkfhyg-S-aspart ate Receptor Antagonist, Sigma-1 Agonist Start: 12-21-2024 End: 04-30-2025 take 1 mL by mouth every six hours as needed for nausea Promethazine-Dm 6.25-15 mg/5 mL syrup Discontinued 5 mL PO EVERY 6 HOURS as needed for nausea December 21, 2024 1:00am April 30, 2025 4:12pm doxycycline hyclate 100 mg oral capsule (20 sources) Tetracycline-clas s Drug Start: 01-03-2023 take 1 capsule by mouth every twelve hours Doxycycline Hyclate 100 MG Oral Capsule TAKE 1 CAPSULE EVERY 12 HOURS UNTIL GONE. Quantity: 14 Refills: 0 Ordered: 03-Jan-2023 Colleen BLACK, Hussein Start : 03-Jan-2023 Active Start: 12-08-2021 End: 12-29-2021 take 1 capsule by mouth twice daily Doxycycline Hyclate 100 mg capsule Discontinued 100 mg PO TWICE A DAY December 08, 2021 1:00am December 29, 2021 11:30am Rx by PCP, will finish on evening of 12/09/21 Ecotrin TBEC (10 sources) Ecotrin TBEC Quantity: 0 Refills: 0 Ordered: 21-Apr-2021 DO Active ferrous sulfate 325 mg oral tablet (14 sources) Start: 3 End: 3 take 1 tablet by mouth once daily Ferrous Sulfate (Iron) 325 mg (65 mg iron) tablet Discontinued 325 mg PO DAILY March 29, 2023 12:00am August 25, 2023 1:35pm ibuprofen 200 mg oral tablet (2 sources) Nonsteroidal Anti-inflammatory Drug Start: 2 IBUPROFEN 200 MG TABS as directed as needed IBUPROFEN [id number] Shy Pacheco LPN ibuprofen 200 MG tablet Take by mouth See administration instructions. prn 0 Active ipratropium bromide 0.021 mg/actuat metered dose nasal spray (20 sources) Anticholinergic Start: 10-07-2021 Ipratropium Br omide 0.03 % Nasal Solution Quantity: 0 Refills: 0 Ordered: 07-Oct-2021 DO Start : 07-Oct-2021 Active Start: 10-07-2021 Ipratropium Br omide 0.03 % Nasal Solution Quantity: 0 Refills: 0 Ordered: 07-Oct-2021 DO Start : 07-Oct-2021 Active Start: 10-29-2020 Ipratropium Br omide Active 2 SPRAY INTRANASAL NEEDED October 29, 2020 12:00am ketorolac tromethamine 5 mg/ml ophthalmic solution (6 sources) Nonsteroidal Anti-inflammatory Drug, Cyclooxygenase Inhibitor Start: 12-21-2024 End: 04-30-2025 Ketorolac 0.5 % drops Discontinued NMA OPHTHALMIC as needed December 21, 2024 1:57pm April 30, 2025 4:12pm Start: 07-26-2024 End: 12-21-2024 Ketorolac 0.5 % drops Discon tinued NMA OPHTHALMIC July 26, 2024 12:00am December 21, 2024 1:58pm levocetirizine dihydrochloride 5 mg oral tablet (3 sources) Histamine-1 Receptor Antagonist Start: 11-08-2024 End: 12-21-2024 take 1 tablet by mouth once daily Levocetirizine 5 mg tablet Discontinued 5 mg PO daily November 08, 2024 1:00am December 21, 2024 12:38pm lidocaine 0.05 mg/mg topical ointment (15 sources) Antiarrhythmic, Amide Local Anesthetic Start: 05-02-2021 Lidocaine 5 % External Ointment APPLY TO AFFECTED AREAS DIRECTED. Quantity: 1 Refills: 0 Ordered: 02-May-2021 Hussein Bennett MPH Start : 02-May-2021 Active apply to right heel 15 minutes prior to heel injection lidocaine 5% top ical ointment Quantity: 0 Refills: 0 Ordered: 07-May-2021 Roque Travis Status: Other Generic Substitution Allowed lisinopril 20 mg oral tablet (1 source) Angiotensin Converting Enzyme Inhibitor Start: 01-31-2009 End: 04-22-2025 LISINOPRIL 20 MG TAB Take one(1) tablet daily. 0 01/31/2009 04/22/2025 Discontinued meclizine hydrochloride 25 mg oral tablet (20 sources) Antiemetic Start: 02-23-2022 End: 06-15-2022 take 1 tablet by mouth three times daily as needed Meclizine 25 mg Tablet Discontinued 25 mg PO 3 TIMES DAILY NEEDED as needed for vertigo February 23, 2022 12:00am June 15, 2022 10:15am mometasone furoate 0.001 mg/mg topical ointment (1 source) Corticosteroid Start: 01-22-2015 End: 04-22-2025 mometasone (ELOCON) 0.1 % ointment Indications: Special screening for malignant neoplasms, colon Apply 1 application to affected area once daily. 01/22/2015 04/22/2025 Discontinued Multi Vitamin Mens TABS (20 sources) Multi Vitamin Me ns TABS TAKE 1 TABLET DAILY. Quantity: 0 Refills: 0 Ordered: 26-Feb-2023 DO Active Multi Vitamin Me ns TABS Quantity: 0 Refills: 0 Ordered: 10-Nov-2022 DO Active Multi Vitamin Me ns TABS Quantity: 0 Refills: 0 Ordered: 21-Apr-2021 DO Active Multivitamin With Minerals 1 EACH tablet (3 sources) Start: 10-31-2020 End: 02-16-2023 take 1 tablet by mouth at breakfast Multivitamin With Minerals 1 EACH tablet Discontinued 1 NMA PO WITH BREAKFAST October 31, 2020 1:00am February 16, 2023 7:35pm ofloxacin 3 mg/ml ophthalmic solution (3 sources) Quinolone Antimicrobial Start: 06-08-2024 End: 07-26-2024 take 0.3 drop(s) into the eye(s) four times daily Ofloxacin 0.3 % drops Discontinued 0 OPHTHALMIC .COMPLEX June 08, 2024 12:00am July 26, 2024 10:19am left eye 4 times a day for cataract [place]-3 Fatty Acids-Vitamin E (FISH OIL) 1,000 mg cap (1 source) End: 04-22-2025 [place]-3 Fatty Acids-Vitamin E (FISH OIL) 1,000 mg cap Indications: Special screening for malignant neoplasms, colon Take 1 capsule by mouth. 04/22/2025 Discontinued omeprazole 40 mg delayed release oral capsule (20 sources) Proton Pump Inhibitor Start: 12-26-2020 Omeprazole 40 MG Oral Capsule Delayed Release Quantity: 90 Refills: 0 Ordered: 26-Mar-2021 DO Start : 26-Dec-2020 Active Start: 09-13-2012 [facility] 1 capsule [facility] once daily Omeprazole 40 mg capsule,delayed release(DR/EC) Active 40 mg PO DAILY October 29, 2020 1:00am Start: 01-31-2009 End: 04-22-2025 omeprazole magnesium(PRILOSE C OTC 20 MG TAB) Take 40 mg by mouth every morning. 0 01/31/2009 04/22/2025 Discontinued oxyCODONE hydrochloride 5 mg oral tablet (20 sources) Opioid Agonist Start: 02-02-2023 End: 02-16-2023 take 1 tablet by mouth every four hours as needed for pain Oxycodone 5 mg Tablet Discontinued 5 mg PO Q4H as needed for Pain February 03, 2023 1:00am February 16, 2023 7:35pm potassium 99 mg extended release oral tablet (2 sources) Start: 03-07-2025 End: 04-30-2025 Potassium 99 mg tablet Discontinued mg PO March 07, 2025 12:00am April 30, 2025 4:12pm Prostagenics (20 sources) Start: 10-31-2020 End: 10-06-2021 take 1 capsule by mouth twice daily Prostagenics Discontinued 1 CAP PO TWICE A DAY October 31, 2020 9:23am October 06, 2021 11:45am Start: 10-31-2020 End: 10-06-2021 Prostagenics Discontinued 1 NMA PO TWICE A DAY October 31, 2020 1:00am October 06, 2021 11:45am Start: 10-31-2020 End: 10-06-2021 take 1 capsule by mouth twice daily Prostagenics Discontinued 1 CAP PO TWICE A DAY October 31, 2020 12:00am October 06, 2021 10:45am Start: 10-31-2020 End: 10-06-2021 take 1 capsule by mouth twice daily Prostagenics Discontinued 1 CAP PO TWICE A DAY October 31, 2020 1:00am October 06, 2021 11:45am quinapril 20 mg oral tablet (20 sources) Angiotensin Converting Enzyme Inhibitor Start: 02-24-2021 Quinapril HCl - 20 M G Oral Tablet Quantity: 90 Refills: 0 Ordered: 24-Feb-2021 DO Start : 24-Feb-2021 Active Start: 07-04-2018 End: 10-06-2021 take 1 tablet by mouth once daily Quinapril 20 mg tablet Discontinued 20 mg PO DAILY October 29, 2020 1:00am October 06, 2021 11:44am sulfamethoxazole 800 mg / trimethoprim 160 mg oral tablet (20 sources) Dihydrofolate Reductase Inhibitor Antibacterial, Sulfonamide Antimicrobial Start: 05-27-2021 End: 06-10-2021 Sulfamethoxazole-Trimethopri m (Bactrim Ds) 800-160 mg tablet Discontinued 1 {tbl} PO TWICE A DAY May 29, 2021 12:00am June 10, 2021 9:43am Comment on above: Avoid prolonged or e xcessive exposure to direct and/or artificial sunlight while taking this medication.Finish all this medication unless otherwise directed by prescriber.Medication should be taken with plenty of water. traMADol hydrochloride 50 mg oral tablet (20 sources) Opioid Agonist Start: 05-26-2021 End: 06-10-2021 take 1 tablet by mouth every six hours as needed for pain Tramadol 50 mg tablet Discontinued 50 mg PO EVERY 6 HOURS as needed for Pain May 29, 2021 12:00am June 10, 2021 9:43am Comment on above: Caution federal law prohibits the transfer of this drug to any person other than the person for whom it was prescribed.May cause drowsiness. Alcohol may intensify this effect. Use care when operating dangerous machinery.Obtain medical advice before taking any non-prescription drugs as some may affect the action of this medication. Zinc (20 sources) Start: 02-03-2023 End: 02-16-2023 take 1 tablet by mouth once daily Zinc 50 mg Tablet Discontinued 50 mg PO DAILY February 03, 2023 1:00am February 16, 2023 7:35pm Start: 02-03-2023 End: 02-16-2023 take 50 mg by mouth once daily Zinc Discontinued 50 MG PO DAILY February 03, 2023 12:00am February 16, 2023 6:35pm Start: 02-03-2023 End: 02-16-2023 take 50 mg by mouth once daily Zinc Discontinued 50 MG PO DAILY February 03, 2023 1:00am February 16, 2023 7:35pm Start: 12-29-2021 take 50 mg by mouth once daily Zinc Active 50 MG PO DAILY December 29, 2021 11:30am Start: 12-29-2021 take 50 mg by mouth once daily Zinc Active 50 MG PO DAILY December 29, 2021 12:00am Start: 12-29-2021 take 50 mg by mouth once daily Zinc Active 50 MG PO DAILY December 29, 2021 1:00am zinc gluconate 50 mg oral tablet (19 sources) Start: 05-12-2022 End: 04-30-2025 take 1 tablet by mouth once daily Zinc Gluconate 50 mg tablet Discontinued 50 mg PO DAILY October 28, 2023 1:00am April 30, 2025 4:12pm Zinc Oxide (20 sources) Start: 04-13-2022 End: 06-15-2022 Zinc Oxide ointment Discontinued 1 NMA TOPICAL TWICE A DAY as needed for Rash April 13, 2022 12:00am June 15, 2022 10:16am Start: 04-13-2022 End: 06-15-2022 Zinc Oxide Discontinued 1 AP PLIC TOPICAL TWICE A DAY April 12, 2022 11:00pm June 15, 2022 9:16am Start: 04-13-2022 End: 06-15-2022 Zinc Oxide Discontinued 1 AP PLIC TOPICAL TWICE A DAY April 13, 2022 12:00am June 15, 2022 10:16am Problems Active Problems Problem Classification Problem Date Documented Date Episodic/Chronic Abdominal pain (17 sources) Left flank pain; Translations: [Unspecified abdominal pain] 03-29-2023 Episodic Acute and unspecified renal failure (19 sources) Prerenal azotemia; Translations: [Unspecified kidney failure] 01-18-2023 Chronic Acute and unspecified renal failure (9 sources) Acute renal failure syndrome; Translations: [Acute kidney failure, unspecified] Onset: 03-01-2025 03-12-2025 Episodic Administrative/socia l admission (2 sources) Counseling, unspecified; Translations: [Counseling NOS] 11-10-2023 Episodic Allergic reactions (20 sources) Eruption due to drug; Translations: [Generalized skin eruption due to drugs and medicaments taken internally] Episodic Comment on above: Unlikely andry Shelby ersists months after cessation of therapy Bacterial infection; unspecified site (2 sources) Streptococcus, group A, as the cause of diseases classified elsewhere; Translations: [Streptococcus, group B, as the cause of diseases classified elsewhere] Onset: 02-03-2023 Episodic Blindness and vision defects (20 sources) Blurring of visual image; Translations: [Other visual disturbances] Episodic Cancer of prostate (20 sources) Malignant tumor of prostate; Translations: [Malignant neoplasm of prostate] Onset: 06-27-2007 02-03-2023 Chronic Cardiac dysrhythmias (20 sources) Atrial fibrillation; Translations: [Unspecified atrial fibrillation] Onset: 02-03-2023 Chronic Chronic kidney disease (17 sources) Chronic renal failure; Translations: [Chronic kidney disease, unspecified] Onset: 05-05-2023 Chronic Complications of surgical procedures or medical care (4 sources) Postoperative seroma; Translations: [Seroma complicating a procedure] Onset: 03-05-2023 Episodic Conditions associated with dizziness or vertigo (20 sources) Vertigo; Translations: [Dizziness and giddiness] Episodic Deficiency and other anemia (2 sources) Deficiency and other anemia 02-01-2023 Disorders of lipid metabolism (20 sources) Hypercholesterolemia; Translations: [Pure hypercholesterolemia, unspecified] Onset: 02-03-2023 11-04-2020 Chronic Esophageal disorders (20 sources) Gastroesophageal reflux disease; Translations: [Gastro-esophageal reflux disease without esophagitis] Onset: 02-03-2023 11-04-2020 Chronic Essential hypertension (20 sources) Hypertensive disorder; Translations: [Essential (primary) hypertension] Onset: 02-03-2023 Chronic Comment on above: CONTROLLED ON MED Fever of unknown origin (1 source) Fever; Translations: [Fever, unspecified] 04-30-2025 Episodic Fluid and electrolyte disorders (20 sources) Hypokalemia; Translations: [Hypokalemia] Onset: 04-11-2025 Episodic Heart valve disorders (20 sources) Mitral valve regurgitation; Translations: [Nonrheumatic mitral (valve) insufficiency] Onset: 09-28-2022 Chronic Hemorrhoids (20 sources) Hemorrhoids; Translations: [Unspecified hemorrhoids] Onset: 01-26-2007 11-04-2020 Episodic Hyperplasia of prostate (20 sources) Benign prostatic hyperplasia; Translations: [Benign prostatic hyperplasia without lower urinary tract symptoms] Onset: 05-25-2022 11-04-2020 Chronic Immunizations and screening for infectious disease (2 sources) Contact with or exposure to other viral diseases Onset: 05-26-2021 05-26-2021 Episodic Infective arthritis and osteomyelitis (except that caused by tuberculosis or sexually transmitted disease) (2 sources) Infective arthritis; Translations: [Pyogenic arthritis, shoulder region] Onset: 02-03-2023 01-28-2023 Episodic Lymphadenitis (20 sources) Inguinal lymphadenopathy; Translations: [Localized enlarged lymph nodes] Onset: 11-10-2022 Episodic Maintenance chemotherapy; radiotherapy (1 source) Encounter for antineoplastic chemotherapy; Translations: [Encounter for antineoplastic chemotherapy] Onset: 04-11-2025 Chronic Malaise and fatigue (20 sources) Asthenia; Translations: [Other malaise] 02-03-2023 Episodic Melanomas of skin (20 sources) Malignant melanoma of heel; Translations: [Malignant melanoma of skin of lower limb, including hip] Onset: 06-02-2022 Chronic Melanomas of skin (20 sources) H/O Malignant melanoma; Translations: [Personal history of malignant melanoma of skin] 01-18-2023 Episodic Nausea and vomiting (4 sources) Vomiting; Translations: [Vomiting, unspecified] Episodic Nephritis; nephrosis; renal sclerosis (5 sources) Nephritis; Translations: [Unspecified nephritic syndrome with unspecified morphologic changes] Onset: 04-11-2025 03-08-2025 Chronic Nonspecific chest pain (20 sources) Chest pain; Translations: [Chest pain, unspecified] Episodic Open wounds of extremities (20 sources) Open wound, heel; Translations: [Unspecified open wound, right foot, initial encounter] Episodic Osteoarthritis (20 sources) Arthritis; Translations: [Unspecified osteoarthritis, unspecified site] 11-04-2020 Chronic Other aftercare (20 sources) Patient encounter status; Translations: [Encounter for adjustment and management of vascular access device] 07-01-2021 Episodic Other aftercare (19 sources) Long-term current use of anticoagulant; Translations: [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) use of anticoagulants] 01-18-2023 Episodic Other aftercare (1 source) 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) use of anticoagulants; Translations: [correction (current) use of anticoagulants] Onset: 02-03-2023 Episodic Other aftercare (1 source) 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) use of systemic steroids; Translations: [correction (current) use of systemic steroids] Onset: 02-03-2023 Episodic Other and unspecified benign neoplasm (20 sources) History of polyp of colon; Translations: [Personal history of colonic polyps] 10-29-2020 Episodic Other connective tissue disease (1 source) Disorder of rotator cuff; Translations: [Unspecified rotator cuff tear or rupture of right shoulder, not specified as traumatic] Onset: 07-25-2018 07-25-2018 Episodic Other connective tissue disease (2 sources) Seroma due to trauma; Translations: [Post-traumatic seroma] 05-26-2021 Episodic Other diseases of bladder and urethra (3 sources) Bladder neck obstruction; Translations: [Bladder-neck obstruction] Onset: 06-27-2007 03-27-2025 Chronic Other injuries and conditions due to external causes (3 sources) Injury of left knee; Translations: [Unspecified injury of left lower leg, initial encounter] 05-11-2024 Episodic Other liver diseases (6 sources) Lesion of liver; Translations: [Liver disease, unspecified] 08-05-2023 Chronic Other liver diseases (4 sources) Liver disease, unspecified; Translations: [Other specified disorders of liver] 08-05-2023 Chronic Other lower respiratory disease (20 sources) Cough; Translations: [Cough] Episodic Other lower respiratory disease (19 sources) Pleuritic pain; Translations: [Pleurodynia] 01-18-2023 Episodic Other lower respiratory disease (1 source) Abscess of lung without pneumonia; Translations: [Abscess of lung without pneumonia] Onset: 02-03-2023 Episodic Other nervous system disorders (20 sources) Melendrez's palsy; 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] Onset: 05-05-2023 10-06-2021 Episodic Comment on above: Right face Other nervous system disorders (14 sources) Impairment of balance; Translations: [Other abnormalities of gait and mobility] 03-29-2023 Episodic Other nervous system disorders (3 sources) Other abnormalities of gait and mobility; Translations: [Abnormality of gait] 03-29-2023 Episodic Other non-epithelial cancer of skin (1 source) Personal history of other malignant neoplasm of skin; Translations: [Personal history of other malignant neoplasm of skin] Onset: 12-24-2022 Episodic Other non-traumatic joint disorders (8 sources) Shoulder pain; Translations: [Pain in left shoulder] 01-18-2023 Episodic Other non-traumatic joint disorders (20 sources) Pain in left shoulder; Translations: [Acute pain of left shoulder] 01-26-2023 Episodic Other screening for suspected conditions (not mental disorders or infectious disease) (20 sources) Prerenal azotemia; Translations: [Other specified abnormal findings of blood chemistry] Onset: 03-01-2023 08-26-2021 Episodic Other skin disorders (2 sources) Disorder of the skin and subcutaneous tissue, unspecified; Translations: [Disorder of the skin and subcutaneous tissue, unspecified] Onset: 12-24-2022 Episodic Other upper respiratory disease (17 sources) Allergic rhinitis; Translations: [Allergic rhinitis, unspecified] 02-03-2023 Chronic Other upper respiratory disease (6 sources) Allergic rhinitis, unspecified; Translations: [Allergic rhinitis, cause unspecified] 02-23-2023 Chronic Pleurisy; pneumothorax; pulmonary collapse (20 sources) Abscess of thorax; Translations: [Pyothorax without fistula] 01-26-2023 Episodic Residual codes; unclassified (3 sources) No current problems or disability; Translations: [Other specified conditions influencing health status] Onset: 05-06-2021 Episodic Residual codes; unclassified (20 sources) H/O Spinal surgery; Translations: [Other specified postprocedural states] 11-04-2020 Episodic Residual codes; unclassified (20 sources) Sleep disorder; Translations: [Sleep disorder, unspecified] 11-04-2020 Episodic Residual codes; unclassified (20 sources) History of colonoscopy; Translations: [Other specified postprocedural states] 06-13-2021 Episodic Comment on above: 02/13/2015, 11/04/20 Residual codes; unclassified (9 sources) Encounter for other specified prophylactic measures; Translations: [Need for prophylactic immunotherapy] Episodic Residual codes; unclassified (1 source) Other specified postprocedural states; Translations: [Other specified postprocedural states] Onset: 02-25-2023 Episodic Residual codes; unclassified (3 sources) Creatinine level - finding 09-15-2021 Episodic Comment on above: May be due Keytruda. Discussed holding therapy, Pt declined. Retinal detachments; defects; vascular occlusion; and retinopathy (20 sources) Degenerative disorder of macula ; Translations: [Unspecified macular degeneration] Onset: 05-05-2023 02-03-2023 Chronic Rheumatoid arthritis and related disease (20 sources) Rheumatoid arthritis; Translations: [Rheumatoid arthritis, unspecified] Onset: 02-03-2023 11-04-2020 Chronic Screening and history of mental health and substance abuse codes (1 source) Personal history of nicotine dependence; Translations: [Personal history of nicotine dependence] Onset: 12-24-2022 Episodic Secondary malignancies (20 sources) Regional lymph node metastasis present ; Translations: [Secondary and unspecified malignant neoplasm of lymph node, unspecified] Onset: 04-13-2023 03-23-2022 Chronic Secondary malignancies (20 sources) Secondary and unspecified malignant neoplasm of lymph node, unspecified; Translations: [Secondary and unspecified malignant neoplasm of lymph nodes, site unspecified] Onset: 12-21-2024 Chronic Secondary malignancies (4 sources) 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; Translations: [Sec and unsp malig neoplasm of inguinal and lower limb nodes] Onset: 12-23-2022 Chronic Secondary malignancies (16 sources) Metastatic malignant melanoma ; Translations: [Secondary and unspecified malignant neoplasm of lymph node, unspecified] 03-02-2023 Chronic Secondary malignancies (1 source) Secondary malignant neoplasm of lung; Translations: [Secondary malignant neoplasm of unspecified lung] 10-28-2023 Chronic Secondary malignancies (20 sources) Secondary malignant neoplasm of liver; Translations: [Secondary malignant neoplasm of liver and intrahepatic bile duct] 10-28-2023 Chronic Secondary malignancies (20 sources) Secondary malignant neoplasm of liver and intrahepatic bile duct; Translations: [Malignant neoplasm of liver, secondary] Onset: 12-21-2024 10-28-2023 Chronic Secondary malignancies (1 source) Secondary malignant neoplasm of unspecified lung; Translations: [Secondary malignant neoplasm of lung] 10-28-2023 Chronic Skin and subcutaneous tissue infections (20 sources) Cellulitis; Translations: [Cellulitis and abscess of unspecified sites] Onset: 02-25-2023 05-24-2021 Episodic Thyroid disorders (20 sources) Acquired hypothyroidism; Translations: [Hypothyroidism, unspecified] Onset: 02-03-2023 Chronic Unclassified (4 sources) TRAUMATIC SEROMA OF THIGH, INITIAL ENCOUNTER T79.2XXA 05-24-2021 Comment on above: TRAUMATIC SEROMA OF THIGH, INITIAL ENCOUNTER T79.2XXA Unclassified (2 sources) POST OP VISIT PER ASPEN 05-27-2021 Comment on above: POST OP VISIT PER KEV MONTEIRO Unclassified (2 sources) Close exposure to severe acute respiratory syndrome coronavirus 2 (SARS-CoV-2) 05-26-2021 Unclassified (2 sources) Seroma due to trauma 05-26-2021 Unclassified (2 sources) THORACIC ABSCESS; DR. BOGGS: 01-28-23: DEBRIDEMENT, NEGATIVE PRESSURE WOUND THERAPY, DEBR/SEE SOARIAN 01-29-2023 Comment on above: THORACIC ABSCESS; DR Bruce BOGGS: 01-28-23: DEBRIDEMENT, NEGATIVE PRESSURE WOUND THERAPY, DEBR/SEE SOARIAN Unclassified (1 source) POV, CXR PRIOR AT 9:30 AM 02-01-2023 Comment on above: POV, CXR PRIOR AT 9: 30 AM Unclassified (1 source) Septic arthritis of sternoclavicular joint 01-28-2023 Unclassified (1 source) Contact with and (suspected) exposure to COVID-19; Translations: [Contact with and (suspected) exposure to COVID-19] Onset: 02-03-2023 Unclassified (1 source) Personal history of COVID-19; Translations: [Personal history of COVID-19] Onset: 02-03-2023 Unclassified (2 sources) Creatinine level - finding; Translations: [High creatinine] 09-15-2021 Unclassified (2 sources) R79.89 - Other specified abnormal findings of blood chemistry,N05.9 - Unspecified nephritic syndrome with unspecified morphologic changes Unclassified (2 sources) C78.7 - Secondary malignant neoplasm of liver and intrahepatic bile duct,C43.9 - Malignant melanoma of skin, unspecified,C77.9 - Secondary and unspecified malignant neoplasm of lymph node, unspecified,C43.71 - Malignant melanoma of right lower limb, including hip Past or Other Problems Problem Classification Problem Date Documented Da te Episodic/Chronic Abdominal hernia (5 sources) Umbilical hernia; Translations: [Umbilical hernia without obstruction or gangrene] Onset: 01-28-2015 05-05-2023 Episodic Cancer of prostate (20 sources) History of malignant neoplasm of prostate; Translations: [Personal history of malignant neoplasm of prostate] Onset: 02-03-2023 Episodic Deficiency and other anemia (4 sources) Iron deficiency anemia; Translations: [Iron deficiency anemia, unspecified] Onset: 05-05-2023 02-01-2023 Episodic Other aftercare (2 sources) 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) use of antibiotics; Translations: [correction (current) use of antibiotics] Onset: 03-08-2023 Episodic Other aftercare (2 sources) correction (current) use of non-steroidal anti-inflammatories (NSAID); Translations: [correction (current) use of non-steroidal anti-inflammatories (NSAID)] Onset: 03-08-2023 Episodic Other aftercare (2 sources) Encounter for adjustment and management of vascular access device; Translations: [Encounter for adjustment and management of vascular access device] Onset: 03-08-2023 Episodic Other connective tissue disease (2 sources) Contusion of thigh; Translations: [Post-traumatic seroma] Resolved: 05-24-2021 05-24-2021 Episodic Other injuries and conditions due to external causes (1 source) Unspecified injury of left lower leg, initial encounter; Translations: [Unspecified injury of left lower leg, initial encounter] Onset: 05-16-2024 Episodic Other non-traumatic joint disorders (4 sources) Pain in left knee; Translations: [Left knee pain] Onset: 05-11-2024 05-11-2024 Episodic Residual codes; unclassified (2 sources) Other general symptoms and signs; Translations: [Other general symptoms and signs] Onset: 03-01-2023 Episodic Unclassified (1 source) Problem Unclassified (2 sources) POST OP INFECTION 05-24-2021 Comment on above: POST OP INFECTION Unclassified (1 source) THORACIC ABSCESS 01-29-2023 Comment on above: THORACIC ABSCESS Results Test Name Value Interpretation Reference Range Facility Absolute lymphocyte countOrd ered By: Mati Castellano on 04-30-2025 Lymphocytes Auto (Unsp spec) [#/Vol] 0.39 10*3/uL Low 0.83-4.51 [facility] Absolute neutrophil countOrd ered By: Mati Castellano on 04-30-2025 Neutrophils (Bld) [#/Vol] 5.2 10*3/uL 2.0-7.7 [facility] Anion gap in Serum or Plasma Ordered By: Mati Castellano on 04-30-2025 Anion gap [Moles/Vol] 12 mmol/L 5-15 [facility] Automated lymphocyte count a s percentage of total leukocytesOrdered By: Mati Castellano on 04-30-2025 Lymphocytes/100 WBC Auto (Unsp spec) 6.8 % Low 19-41 [facility] BUN/creatinine ratioOrdered By: Mati Castellano on 04-30-2025 Urea nitrogen/Creatinine [Mass ratio] 13.9 mg/mg 10-20 [facility] Basophil percentageOrdered B y: Mati Castellano on 04-30-2025 Basophils/100 WBC (Bld) 0.0 % 0-[address] [facility] Bilirubin Test strip Ql (U)O rdered By: Mati Gray on 04-30-2025 Bilirubin Ql (U) Negative Negative [facility] Bilirubin, totalOrdered By: Mati Personvincent on 04-30-2025 Bilirubin [Mass/Vol] 0.27 mg/dL 0.00-1.30 [facility] CBC W/Diff, Automatedon Absolute Lymph 0.39 X10 3/uL Low 0.83-4.51 [facility] Comment on above: Performed By: #### L 100.0100, L500.4050 ####[facility] [address] [place], [address] Absolute Neut 5.2 X10 3/uL Normal 2.0-7.7 [facility] Comment on above: Performed By: #### L 100.0100, L500.4050 ####[facility] [address] [place], [address] Basophils/100 WBC (Bld) 0.0 % Normal 0-[address] [facility] Comment on above: Performed By: #### L 100.0100, L500.4050 ####[facility] [address] [place], [address] Eosinophils/100 WBC (Bld) 0.0 % Normal 0-5 [facility] Comment on above: Performed By: #### L 100.0100, L500.4050 ####[facility] [address] [place], [address] Erythrocyte distribution width (RBC) [Ratio] 14.6 % Normal 11.6-14.6 [facility] Comment on above: Performed By: #### L 100.0100, L500.4050 ####[facility] [address] [place], [address] Hematocrit (Bld) [Volume fraction] 26.2 % Low 40-54 [facility] Comment on above: Performed By: #### L 100.0100, L500.4050 ####[facility] [address] [place], [address] Hemoglobin (Bld) [Mass/Vol] 8.8 g/dL Low 13.0-16.5 [facility] Comment on above: Performed By: #### L 100.0100, L500.4050 ####[facility] [address] [place], [address] IG% 0.900 Normal 0.0-0.9 [facility] Comment on above: Result Comment: IG% - Immature Granulocytes (promyelocytes, myelocytes andmetamyelocytes) > 1% indicates that a LEFT SHIFT is Present. Performed By: #### L 100.0100, L500.4050 ####[facility] [address] [place], [address] Lymphocytes/100 WBC (Bld) 6.8 % Low 19-41 [facility] Comment on above: Performed By: #### L 100.0100, L500.4050 ####[facility] [address] [place], [address] MCH (RBC) [Entitic mass] 32.4 pg High 27.0-32.0 [facility] Comment on above: Performed By: #### L 100.0100, L500.4050 ####[facility] [address] [place], [address] MCHC (RBC) [Mass/Vol] 33.6 g/dL Normal 32-36 [facility] Comment on above: Performed By: #### L 100.0100, L500.4050 ####[facility] [address] [place], [address] MCV (RBC) [Entitic vol] 96.3 fL High 80-[address] [facility] Comment on above: Performed By: #### L 100.0100, L500.4050 ####[facility] [address] [place], [address] Monocytes/100 WBC (Bld) 2.3 % Normal 0-[address] [facility] Comment on above: Performed By: #### L 100.0100, L500.4050 ####[facility] [address] [place], [address] Neutrophils/100 WBC (Bld) 90.0 % High 47-70 [facility] Comment on above: Performed By: #### L 100.0100, L500.4050 ####[facility] [address] [place], [address] Nucleated RBC (Bld) [#/Vol] 0 10*3/uL Normal 0-5 [facility] Comment on above: Performed By: #### L 100.0100, L500.4050 ####[facility] [address] [place], [address] Platelet mean volume (Bld) [Entitic vol] 9.1 fL Normal 6.2-12.0 [facility] Comment on above: Performed By: #### L 100.0100, L500.4050 ####[facility] [address] [place], [address] Platelets (Bld) [#/Vol] 186 10*3/uL Normal 150-450 [facility] Comment on above: Performed By: #### L 100.0100, L500.4050 ####[facility] [address] [place], [address] RBC (Bld) [#/Vol] 2.72 10*6/uL Low 4.6-6.2 [facility] Comment on above: Performed By: #### L 100.0100, L500.4050 ####[facility] [address] [place], [address] RDW SD 51.2 fl High 35.1-43.9 [facility] Comment on above: Performed By: #### L 100.0100, L500.4050 ####[facility] [address] [place], [address] WBC (Bld) [#/Vol] 5.8 10*3/uL Normal 4.4-11.0 [facility] Comment on above: Performed By: #### L 100.0100, L500.4050 ####[facility] [address] [place], [address] Carbon dioxide, total [Moles /volume] in Central venous bloodOrdered By: Mati Castellano on 04-30-2025 CO2 [Moles/Vol] 21.0 mmol/L 21.0-32.0 [facility] Chest PA and Lateralon 04-30 Chest PA and Lateral Normal [facility] Chloride assayOrdered By: Eric Castellano on 04-30-2025 Chloride [Moles/Vol] 103 mmol/L 98-108 [facility] Comprehensive Metabolic Prof ilon 04-30-2025 Albumin [Mass/Vol] 3.1 g/dL Low 3.4-4.8 [facility] Comment on above: Performed By: #### L 100.0100, L500.4050 ####[facility] [address] [place], [address] Albumin/Globulin [Mass ratio] 1.3 {ratio} Normal 0.9-2.4 [facility] Comment on above: Performed By: #### L 100.0100, L500.4050 ####[facility] [address] [place], [address] ALK PHOS 73 U/L Normal 40-129 [facility] Comment on above: Performed By: #### L 100.0100, L500.4050 ####[facility] [address] [place], [address] ALT [Catalytic activity/Vol] 17 U/L Normal <=46 [facility] Comment on above: Performed By: #### L 100.0100, L500.4050 ####[facility] [address] [place], [address] AST [Catalytic activity/Vol] 14 U/L Normal <=37 [facility] Comment on above: Performed By: #### L 100.0100, L500.4050 ####[facility] [address] [place], [address] Bilirubin [Mass/Vol] 0.27 mg/dL Normal 0.00-1.30 [facility] Comment on above: Performed By: #### L 100.0100, L500.4050 ####[facility] [address] [place], [address] BUN/CRE 13.9 RATIO Normal 10-20 [facility] Comment on above: Performed By: #### L 100.0100, L500.4050 ####[facility] [address] [place], [address] Calcium [Mass/Vol] 8.6 mg/dL Normal 7.6-11.0 [facility] Comment on above: Performed By: #### L 100.0100, L500.4050 ####[facility] [address] [place], [address] Chloride [Moles/Vol] 103 mmol/L Normal 98-108 [facility] Comment on above: Performed By: #### L 100.0100, L500.4050 ####[facility] [address] [place], [address] CO2 [Moles/Vol] 21.0 mmol/L Normal 21.0-32.0 [facility] Comment on above: Performed By: #### L 100.0100, L500.4050 ####[facility] [address] [place], [address] Creatinine [Mass/Vol] 2.90 mg/dL High 0.70-1.20 [facility] Comment on above: Performed By: #### L 100.0100, L500.4050 ####[facility] [address] [place], [address] ECRCL 19.50 ml/min Low 50-250 [facility] Comment on above: Performed By: #### L 100.0100, L500.4050 ####[facility] [address] [place], [address] GAP 12 Normal 5-15 [facility] Comment on above: Performed By: #### L 100.0100, L500.4050 ####[facility] [address] [place], [address] GFR/1.73 sq M.predicted among non-blacks MDRD (S/P/Bld) [Vol rate/Area] 21 mL/min/{1.73_m2} Low >60 [facility] Comment on above: Result Comment: mL/m in/1.73m2 CKD-EPI Creatinine Equation (2020) Performed By: #### L 100.0100, L500.4050 ####[facility] [address] [place], [address] Globulin (S) [Mass/Vol] 2.5 g/dL Normal 2.2-4.2 [facility] Comment on above: Performed By: #### L 100.0100, L500.4050 ####[facility] [address] [place], [address] Glucose [Mass/Vol] 183 mg/dL High 70-99 [facility] Comment on above: Performed By: #### L 100.0100, L500.4050 ####[facility] [address] [place], [address] Potassium [Moles/Vol] 3.1 mmol/L Low 3.3-5.1 [facility] Comment on above: Performed By: #### L 100.0100, L500.4050 ####[facility] [address] [place], [address] Sodium [Moles/Vol] 135 mmol/L Normal 133-145 [facility] Comment on above: Performed By: #### L 100.0100, L500.4050 ####[facility] [address] [place], [address] T PROT 5.5 g/dL Low 5.9-8.4 [facility] Comment on above: Performed By: #### L 100.0100, L500.4050 ####[facility] [address] [place], [address] Urea nitrogen [Mass/Vol] 40 mg/dL High 4-19 [facility] Comment on above: Performed By: #### L 100.0100, L500.4050 ####[facility] [address] [place], [address] Emergency Department Summary on 04-30-2025 Emergency Department Summary Normal [facility] Eosinophil percentageOrdered By: Mati Castellano on 04-30-2025 Eosinophils/100 WBC (Bld) 0.0 % 0-5 [facility] Erythrocyte distribution wid th ratioOrdered By: Mati Castellano on 04-30-2025 Erythrocyte distribution width (RBC) [Ratio] 14.6 % 11.6-14.6 [facility] Erythrocyte distribution wid th standard deviationOrdered By: Mati Castellano on 04-30-2025 Erythrocyte distribution width (RBC) [Ratio] 51.2 fl High 35.1-43.9 [facility] Glomerular filtration rate ( GFR) estimation/1.73 sq m using serum, plasma, or whole bOrdered By: Mati Castellano on 04-30-2025 GFR/1.73 sq M.predicted among non-blacks MDRD (S/P/Bld) [Vol rate/Area] 21 mL/min/{1.73_m2} Low >60 [facility] Comment on above: mL/min/1.73m2 CKD-EP I Creatinine Equation (2020) Hematocrit Auto (Bld) [Volum e fraction]Ordered By: Mati Castellano on 04-30-2025 Hematocrit (Bld) [Volume fraction] 26.2 % Low 40-54 [facility] Hemoglobin measurementOrdere d By: Mati Castellano on 04-30-2025 Hemoglobin (Bld) [Mass/Vol] 8.8 g/dL Low 13.0-16.5 [facility] Immature granulocytes/100 WB C Auto (Bld)Ordered By: Mati Castellano on 04-30-2025 Immature granulocytes/100 WBC (Bld) 0.900 % 0.0-0.9 [facility] Comment on above: IG% - Immature Granu locytes (promyelocytes, myelocytes and metamyelocytes) > 1% indicates that a LEFT SHIFT is Present. Influenza virus A and B and SARS-CoV-2 (COVID-19) and Respiratory syncytial virus RNAOrdered By: Mati Castellano on 04-30-2025 SARS-CoV-2 (COVID-19) RNA KACIE+probe Ql (Unsp spec) [facility] Ketones Test strip Ql (U)Ord ered By: Mati Castellano on 04-30-2025 Ketones Ql (U) Negative Negative [facility] Laboratory - Chemistry and C hemistry - challengeOrdered By: Mati Castellano on 04-30-2025 AST [Catalytic activity/Vol] 14 U/L <38 [facility] M100.678on 04-30-2025 M100.678 Pending SARS-CoV-2 (COVID 19) Negative INFLUENZA A Negative INFLUENZA B Negative RSV PCR Negative Normal [facility] Comment on above: Performed By: #### M 100.678 ####[facility] [address] [place], [place], [id number] MCV (mean corpuscular volume ) determinationOrdered By: Mati Castellano on 04-30-2025 MCV (RBC) [Entitic vol] 96.3 fL High 80-[address] [facility] Mean corpuscular hemoglobin (MCH) determinationOrdered By: Mati Castellano on 04-30-2025 MCH (RBC) [Entitic mass] 32.4 pg High 27.0-32.0 [facility] Mean corpuscular hemoglobin concentration (MCHC) determinationOrdered By: Mati Castellano on 04-30-2025 MCHC (RBC) [Mass/Vol] 33.6 g/dL 32-36 [facility] Mean platelet volume determi nationOrdered By: Mati Castellano on 04-30-2025 Platelet mean volume (Bld) [Entitic vol] 9.1 fL 6.2-12.0 [facility] Microscopic analysis of urin e for red blood cells (RBC)Ordered By: Mati Castellano on 04-30-2025 Microscopic analysis of urine for red blood cells (RBC) 0 SEEN /hpf 0-5 [facility] Monocyte percentageOrdered B y: Mati Castellano on 04-30-2025 Monocytes/100 WBC (Bld) 2.3 % 0-[address] [facility] Mucus LM Ql (Urine sed)Order ed By: Mati Castellano on 04-30-2025 Mucus Ql (Urine sed) 0 SEEN /hpf [facility] Neutrophil percentageOrdered By: Mati Castellano on 04-30-2025 Neutrophils/100 WBC (Bld) 90.0 % High 47-70 [facility] Nitrite Test strip Ql (U)Ord ered By: Mati Castellano on 04-30-2025 Nitrite Ql (U) Negative Negative [facility] Nucleated red blood cell per centageOrdered By: Mati Castellano on 04-30-2025 Nucleated RBC/100 WBC (Bld) [Ratio] 0 % 0-5 [facility] Platelet countOrdered By: Eric Castellano on 04-30-2025 Platelets (Bld) [#/Vol] 186 10*3/uL 150-450 [facility] Potassium measurement (mass/ volume)Ordered By: Mati Castellano on 04-30-2025 Potassium (Unsp spec) [Mass/Vol] 3.1 mmol/L Low 3.3-5.1 [facility] Protein Test strip Ql (U)Ord ered By: Mati Castellano on 04-30-2025 Protein Ql (U) 30 mg/dl High Negative [facility] RBC Auto (Bld) [#/Vol]Ordere d By: Mati Castellano on 04-30-2025 RBC (Bld) [#/Vol] 2.72 10*6/uL Low 4.6-6.2 [facility] Serum creatinine measurement (mass/volume)Ordered By: Mati Castellano on 04-30-2025 Creatinine [Mass/Vol] 2.90 mg/dL High 0.70-1.20 [facility] Serum globulin measurementOr dered By: Mati Castellano on 04-30-2025 Globulin (S) [Mass/Vol] 2.5 g/dL 2.2-4.[address] [facility] Serum glucose measurement (m ass/volume)Ordered By: Mati Castellano on 04-30-2025 Glucose [Mass/Vol] 183 mg/dL High 70-99 [facility] Serum or plasma alanine oro otransferase (ALT) measurementOrdered By: Mati Castellano on 04-30-2025 ALT [Catalytic activity/Vol] 17 U/L <47 [facility] Serum or plasma albumin arian urement (mass/volume)Ordered By: Mati Castellano on 04-30-2025 Albumin [Mass/Vol] 3.1 g/dL Low 3.4-4.8 [facility] Serum or plasma albumin/glob ulin mass ratioOrdered By: Mati Castellano on 04-30-2025 Albumin/Globulin [Mass ratio] 1.3 {ratio} 0.9-2.4 [facility] Serum or plasma alkaline leidy sphatase measurementOrdered By: Mati Castellano on 04-30-2025 ALP [Catalytic activity/Vol] 73 U/L 40-129 [facility] Serum or plasma calcium arian urement (mass/volume)Ordered By: Mati Castellano on 04-30-2025 Calcium [Mass/Vol] 8.6 mg/dL 7.6-11.0 [facility] Serum or plasma urea nitroge n measurement (mass/volume)Ordered By: Mati Castellano on 06-02-2025 Urea nitrogen [Mass/Vol] 40 mg/dL High 4-19 [facility] Sodium levelOrdered By: Mati Castellano on 04-30-2025 Sodium [Moles/Vol] 135 mmol/L 133-145 [facility] Squamous epithelial cells de tection in urine sediment by light microscopyOrdered By: Mati Castellano on 04-30-2025 Epithelial cells.squamous LM Ql (Urine sed) 0 SEEN /hpf 0-5 [facility] Total proteinOrdered By: Manuela Castellano on 04-30-2025 Protein [Mass/Vol] 5.5 g/dL Low 5.9-8.4 [facility] Urinalysis, Completeon 04-30 BACTERIA 0 SEEN Normal None Seen [facility] Comment on above: Order Comment: CLEAN CATCH Performed By: #### L 400.0001 ####[facility] [address] [place], [address] EPI,SQUAMOUS 0 SEEN Normal 0-5 [facility] Comment on above: Order Comment: CLEAN CATCH Performed By: #### L 400.0001 ####[facility] [address] [place], [address] Mucus Ql (Urine sed) 0 SEEN Normal [facility] Comment on above: Order Comment: CLEAN CATCH Performed By: #### L 400.0001 ####[facility] [address] [place], [address] RBC 0 SEEN Normal 0-[address] [place] [address] Comment on above: Order Comment: CLEAN CATCH Performed By: #### L 400.0001 ####[facility] [address] [place], [address] WBC 0 SEEN Normal 0-[address] [place] [address] Comment on above: Order Comment: CLEAN CATCH Performed By: #### L 400.0001 ####[facility] [address] [place], [address] Urine clarityOrdered By: Manuela Castellano on 04-30-2025 Clarity (U) Clear Clear [facility] Urine color determinationOrd ered By: Mati Castellano on 04-30-2025 Color (U) Yellow Yellow [facility] Urine glucose detectionOrder ed By: Mati Castellano on 04-30-2025 Glucose Ql (U) Normal mg/dl Normal [facility] Urine leukocyte esterase det ection by dipstickOrdered By: Mati Castellano on 04-30-2025 Leukocyte esterase Test strip Ql (U) Negative Negative [facility] Urine pHOrdered By: Mati stewart on 04-30-2025 pH (U) 6.5 [pH] 5.0 - 8.0 [facility] Urine sediment bacteria coun t by microscopy (number/high power field)Ordered By: Mati Castellano on 04-30-2025 Bacteria LM.HPF (Urine sed) [#/Area] 0 /[HPF] None Seen [facility] Urine specific gravity measu rementOrdered By: Mati Castellano on 04-30-2025 Specific gravity (U) [Rel density] 1.010 1.002-1.03 0 [facility] Urine urobilinogen measureme ntOrdered By: Mati Castellano on 04-30-2025 Urobilinogen Ql (U) Normal mg/dl Normal [facility] White blood cell (WBC) count Ordered By: Mati Castellano on 04-30-2025 WBC (Bld) [#/Vol] 5.8 10*3/uL 4.4-11.0 [facility] White blood cell countOrdere d By: Mati Castellano on 04-30-2025 White blood cell count 0 SEEN /hpf 0-[address] [facility] Basic metabolic 2000 panelon 04-27-2025 Anion gap [Moles/Vol] 11 mmol/L Normal 8-15 [facility] Comment on above: Order Comment: Speci men Type: BLOOD SPECIMEN Ordering Facility: [facility] Address: [address] [place] [address] Performed By: #### 2 4321-2 #### [facility] CLIA [id number] [address] [place] [address] [place] Calcium [Mass/Vol] 9.1 mg/dL Normal 8.5-10.2 [facility] Comment on above: Order Comment: Speci men Type: BLOOD SPECIMEN Ordering Facility: [facility] Address: [address] [place] [address] Performed By: #### 2 4321-2 #### [facility] CLIA [id number] [address] [place] [address] [place] Chloride [Moles/Vol] 106 mmol/L Normal 98-107 [facility] Comment on above: Order Comment: Speci men Type: BLOOD SPECIMEN Ordering Facility: [facility] Address: [address] [place] [address] Performed By: #### 2 4321-2 #### [facility] CLIA [id number] [address] [place] [address] [place] CO2 [Moles/Vol] 20 mmol/L Low 22-30 [facility] Comment on above: Order Comment: Speci men Type: BLOOD SPECIMEN Ordering Facility: [facility] Address: [address] [place] [address] Performed By: #### 2 4321-2 #### [facility] CLIA [id number] [address] [place] [address] [place] Creatinine [Mass/Vol] 2.75 mg/dL High 0.73-1.22 [facility] Comment on above: Order Comment: Speci men Type: BLOOD SPECIMEN Ordering Facility: [facility] Address: [address] [place] [address] Performed By: #### 2 4321-2 #### [facility] CLIA [id number] [address] [place] [address] [place] Creatinine and Glomerular filtration rate.predicted panel (S/P/Bld) 22 mL/min/1.73m??? Low >=60 [facility] Comment on above: Order Comment: Speci men Type: BLOOD SPECIMEN Ordering Facility: [facility] Address: [address] [place] [address] Result Comment: Margarita mated Glomerular Filtration Rate (eGFR) is calculated using the 2020 CKD-EPI creatinine equation. This equation utilizes serum creatinine, sex, and age as parameters. The creatinine assay has traceable calibration to isotope dilution-mass spectrometry. Refer to KDIGO guidelines for clinical interpretation. In patients with unstable renal function, e.g. those with acute kidney injury, the eGFR may not accurately reflect actual GFR. Performed By: #### 2 4321-2 #### [facility] CLIA [id number] [address] [place] [address] [place] Glucose [Mass/Vol] 105 mg/dL High 74-99 [facility] Comment on above: Order Comment: Mona snyder Type: BLOOD SPECIMEN Ordering Facility: [facility] Address: [address] [place] [address] Result Comment: The [place] Diabetes Association (ADA) provides guidance for cutoff values for fasting glucose and random glucose. The ADA defines fasting as no caloric intake for at least 8 hours. Fasting plasma glucose results between 100 to 125 mg/dL indicate increased risk for diabetes (prediabetes). Fasting plasma glucose results greater than or equal to 126 mg/dL meet the criteria for diagnosis of diabetes. In the absence of unequivocal hyperglycemia, results should be confirmed by repeat testing. In a patient with classic symptoms of hyperglycemia or hyperglycemic crisis, random plasma glucose results greater than or equal to 200 mg/dL meet the criteria for diagnosis of diabetes. Reference: Standards of Medical Care in Diabetes 2016, [place] Diabetes Association. Diabetes Care. 2016.39(Suppl 1). Performed By: #### 2 4321-2 #### [facility] CLIA [id number] [address] [place] [address] [place] Potassium [Moles/Vol] 3.2 mmol/L Low 3.7-5.1 [facility] Comment on above: Order Comment: Mona snyder Type: BLOOD SPECIMEN Ordering Facility: [facility] Address: [address] [place] [address] Performed By: #### 2 4321-2 #### [facility] CLIA [id number] [address] [place] [address] [place] Sodium [Moles/Vol] 137 mmol/L Normal 136-144 [facility] Comment on above: Order Comment: Specso snyder Type: BLOOD SPECIMEN Ordering Facility: [facility] Address: [address] [place], [place] [address] Performed By: #### 2 4321-2 #### [facility] CLIA [id number] [address] [place] [address] [place] Urea nitrogen [Mass/Vol] 44 mg/dL High 9-24 [facility] Comment on above: Order Comment: Speci men Type: BLOOD SPECIMEN Ordering Facility: [facility] Address: [address] [place] [address] Performed By: #### 2 4321-2 #### [facility] CLIA [id number] [address] [place] [address] [facility] CNPKaycee 04-26-2025 [facility] Telephone ([place]MAC[place]) -------- EMPERATRIZ EPPS ([id number]) 1940 M Date Time Provider Department 04/26/25 EDIS RODRIGEZ During your visit today, we recorded the following information about you: Lianna Eldridge 04/26/2025 9:05 AM Signed Emperatriz Epps is calling Edis Rodrigez 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 He states he should be having labs done weekly. Would like a call back. Patient has been identified by name and birthdate. Requesting response back: [phone] (work) [phone] (cell) Lianna Eldridge April 26, 2025 Celeste Denny, ELIESER 04/26/2025 10:27 AM Signed RN[facility] returned the patient's call. He is supposed to get a BMP weekly per provider but there is no order for it. Patient was assured that an order will be pended to the provider for his approval. Patient will go and get lab completed tomorrow. RN[facility] pended an order for standing BMP and routed it to the provider for his approval. 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 - apixaban (ELIQUIS) 2.5 mg tab(s) Take 2.5 mg by mouth two times a day. - polyvinyl alcohol/povidone (ARTIFICIAL TEARS OPHTHALMIC) Use 1 drop in eyes once daily. - diphenhydrAMINE (BENADRYL ALLERGY) 25 mg tablet Take 25 mg by mouth every 6 hours as needed. - cyproheptadine (PERIACTIN) 4 mg tablet Take 4 mg by mouth one time only. - finasteride (PROSCAR) 5 mg tablet Take 5 mg by mouth daily at bedtime. - Lactobacillus acidophilus (FLORAJEN ACIDOPHILUS ORAL) Take 1 capsule by mouth with meals. - levothyroxine (LEVOXYL) 112 mcg tablet Take 112 mcg by mouth daily before breakfast. - lidocaine-prilocaine (EMLA) 2.5-2.5 % cream 1 application as needed. - loratadine (CLARITIN) 5 mg/5 mL syrup Take 10 mg by mouth once daily. - melatonin 3 mg capsules Take 3 mg by mouth daily at bedtime. - metoprolol tartrate, short acting, (LOPRESSOR) 25 mg tablet Take 25 mg by mouth every evening. - guaiFENesin (MUCINEX) 600 mg 12 hr tablet Take 1,200 mg by mouth two times a day as needed for cold/allergy symptoms. - ondansetron (ZOFRAN) 4 mg tablet Take 4 mg by mouth every 8 hours as needed. - bismuth subsalicylate (PEPTO-BISMOL ORAL) Take 40 mg by mouth as needed. - POTASSIUM-99 ORAL Take 1 tablet by mouth once daily. - INV PREDNISONE 10 mg TABLET (IRB 23-471) Take 20 mg by mouth once daily. For Investigational Drug Use Only, PI: Charlie Sandra. - Senna 8.6 mg tab Take 8.6 mg by mouth two times a day. - triamcinolone acetonide (KENALOG) 0.1 % cream Apply 1 application to affected area as needed. - cholecalciferol (VITAMIN D) 1,000 unit tab tablet Take 1,000 Units by mouth every afternoon. - multivitamin tablet Take 1 tablet by mouth once daily. 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] 06/27/2007 BLADDER NECK OBSTRUCTION [N32.0] 06/27/2007 Umbilical hernia without mention of obstruction*01/28/2015 Encounter Status:Closed by CELESTE DENNY on 04/26/25 Normal [facility] CBC W Auto Differential pane l (Bld)on 04-20-2025 Basophils (Bld) [#/Vol] [facility] C [facility] Basophils/100 WBC (Bld) 0 % C [facility] Differential cell count method Nom (Bld) Auto [facility] Eosinophils (Bld) [#/Vol] [facility] Eosinophils/100 WBC (Bld) 0 % [facility] Erythrocyte distribution width (RBC) [Ratio] 15.1 % High 11.5 - 15.0 % [facility] Hematocrit (Bld) [Volume fraction] 29.8 % Low 39.0 - 51.0 % [facility] Hemoglobin (Bld) [Mass/Vol] 9.9 g/dL Low 13.0 - 17.0 g/dL [facility] Immature granulocytes (Bld) [#/Vol] 0.08 10*3/uL [facility] Immature granulocytes/100 WBC (Bld) 1 % [facility] Interpretation and review of laboratory results Abnormal [facility] Lymphocytes (Bld) [#/Vol] 0.34 10*3/uL Low [facility] Lymphocytes/100 WBC (Bld) 4.4 % [facility] MCH (RBC) [Entitic mass] 31.8 pg 26. 0 - 34.0 pg [facility] MCHC (RBC) [Mass/Vol] 33.2 g/dL 30.5 - 36.0 g/dL [facility] MCV (RBC) [Entitic vol] 95.8 fL 80.0 - 100.0 fL [facility] Monocytes (Bld) [#/Vol] 0.14 10*3/uL [facility] Monocytes/100 WBC (Bld) 1.8 % [facility] Neut[facility] (Bld) [#/Vol] 7.22 10*3/uL [facility] Neutrophils/100 WBC (Bld) 92.8 % [facility] Nucleated RBC (Bld) [#/Vol] NINF [facility] Nucleated RBC/100 WBC (Bld) [Ratio] 0 % /100 WBC [facility] Platelet mean volume (Bld) [Entitic vol] 9.3 fL 9.0 - 12.7 fL [facility] Platelets (Bld) [#/Vol] 174 10*3/uL [facility] RBC (Bld) [#/Vol] 3.11 10*6/uL Low 4.20 - 6.00 m/uL [facility] WBC (Bld) [#/Vol] 7.78 10*3/uL [facility] [facility] Bas[facility] (Bld) [#/Vol] 10*3/uL Normal <0.11 [facility] [place] Comment on above: Order Comment: Speci men Type: BLOOD SPECIMEN Ordering Facility: [facility] Address: [address] [place] [address] Performed By: #### 5 7021-8 #### [facility] [id number] [address] [place] [address] [facility] Basophils/100 WBC (Bld) 0.0 % Normal [facility] [place] Comment on above: Order Comment: Speci men Type: BLOOD SPECIMEN Ordering Facility: [facility] Address: [address] [place] [address] Performed By: #### 5 7021-8 #### [facility] [place] [id number] [address] [id number] [address] [place] Differential cell count method Nom (Bld) Auto Normal [facility] Comment on above: Order Comment: Speci men Type: BLOOD SPECIMEN Ordering Facility: [facility] Address: [address] [place] [address] Performed By: #### 5 7021-8 #### [facility] [id number] [address] [place] [address] [place] Eosinophils (Bld) [#/Vol] 10*3/uL Normal <0.46 [facility] Comment on above: Order Comment: Speci men Type: BLOOD SPECIMEN Ordering Facility: [facility] Address: [address] [place] [address] Performed By: #### 5 7021-8 #### [facility] [id number] [address] [place] [address] [place] Eosinophils/100 WBC (Bld) 0.0 % Normal [facility] Comment on above: Order Comment: Speci men Type: BLOOD SPECIMEN Ordering Facility: [facility] Address: [address] [place] [address] Performed By: #### 5 7021-8 #### [facility] [id number] [address] [place] [address] [place] Erythrocyte distribution width (RBC) [Ratio] 15.1 % High 11.5-15.0 [facility] Comment on above: Order Comment: Speci men Type: BLOOD SPECIMEN Ordering Facility: [facility] Address: [address] [place] [address] Performed By: #### 5 7021-8 #### [facility] [id number] [address] [place] [address] [place] Hematocrit (Bld) [Volume fraction] 29.8 % Low 39.0-51.0 [facility] Comment on above: Order Comment: Speci men Type: BLOOD SPECIMEN Ordering Facility: [facility] Address: [address] [place] [address] Performed By: #### 5 7021-8 #### [facility] [id number] [address] [place] [address] [place] Hemoglobin (Bld) [Mass/Vol] 9.9 g/dL Low 13.0-17.0 [facility] Comment on above: Order Comment: Speci men Type: BLOOD SPECIMEN Ordering Facility: [facility] Address: [address] [place] [address] Performed By: #### 5 7021-8 #### [facility] [id number] [address] [place] [address] [place] Immature granulocytes (Bld) [#/Vol] 0.08 10*3/uL Normal <0.10 [facility] Comment on above: Order Comment: Speci men Type: BLOOD SPECIMEN Ordering Facility: [facility] Address: [address] [place] [address] Performed By: #### 5 7021-8 #### [facility] [place] [id number] [address] [place] [address] [place] Immature granulocytes/100 WBC (Bld) 1.0 % Normal [facility] Comment on above: Order Comment: Speci men Type: BLOOD SPECIMEN Ordering Facility: [facility] Address: [address] [place] [address] Performed By: #### 5 7021-8 #### [facility] [id number] [address] [place] [address] [place] Lymphocytes (Bld) [#/Vol] 0.34 10*3/uL Low 1.00-4.00 [facility] Comment on above: Order Comment: Speci men Type: BLOOD SPECIMEN Ordering Facility: [facility] Address: [address] [place] [address] Performed By: #### 5 7021-8 #### [facility] [id number] [address] [place] [address] [place] Lymphocytes/100 WBC (Bld) 4.4 % Normal [facility] Comment on above: Order Comment: Speci men Type: BLOOD SPECIMEN Ordering Facility: [facility] Address: [address] [place] [address] Performed By: #### 5 7021-8 #### [facility] [id number] [address] [place] [address] [place] MCH (RBC) [Entitic mass] 31.8 pg Normal 26.0-34.0 [facility] Comment on above: Order Comment: Speci men Type: BLOOD SPECIMEN Ordering Facility: [facility] Address: [address] [place] [address] Performed By: #### 5 7021-8 #### [facility] [id number] [address] [place] [address] [place] MCHC (RBC) [Mass/Vol] 33.2 g/dL Normal 30.5-36.0 [facility] Comment on above: Order Comment: Speci men Type: BLOOD SPECIMEN Ordering Facility: [facility] Address: [address] [place] [address] Performed By: #### 5 7021-8 #### [facility] [id number] [address] [place] [address] [place] MCV (RBC) [Entitic vol] 95.8 fL Normal 80.0-100.0 [facility] [place] Comment on above: Order Comment: Speci men Type: BLOOD SPECIMEN Ordering Facility: [facility] Address: [address] [place] [address] Performed By: #### 5 7021-8 #### [facility] [id number] [address] [place] [address] [place] Monocytes (Bld) [#/Vol] 0.14 10*3/uL Normal <0.87 [facility] Comment on above: Order Comment: Speci men Type: BLOOD SPECIMEN Ordering Facility: [facility] Address: [address] [place] [address] Performed By: #### 5 7021-8 #### [facility] [id number] [address] [place] [address] [place] Monocytes/100 WBC (Bld) 1.8 % Normal [facility] Comment on above: Order Comment: Speci men Type: BLOOD SPECIMEN Ordering Facility: [facility] Address: [address] [place] [address] Performed By: #### 5 7021-8 #### [facility] [id number] [address] [place] [address] [place] Neutrophils (Bld) [#/Vol] 7.22 10*3/uL Normal 1.45-7.50 [facility] Comment on above: Order Comment: Speci men Type: BLOOD SPECIMEN Ordering Facility: [facility] Address: [address] [place] [address] Performed By: #### 5 7021-8 #### [facility] [id number] [address] [place] [address] [place] Neutrophils/100 WBC (Bld) 92.8 % Normal [facility] Comment on above: Order Comment: Speci men Type: BLOOD SPECIMEN Ordering Facility: [facility] Address: [address] [place] [address] Performed By: #### 5 7021-8 #### [facility] [id number] [address] [place] [address] [place] Nucleated RBC (Bld) [#/Vol] 10*3/uL Normal <0.01 [facility] Comment on above: Order Comment: Speci men Type: BLOOD SPECIMEN Ordering Facility: [facility] Address: [address] [place] [address] Performed By: #### 5 7021-8 #### [facility] [place] [id number] [address] [place] [address] [place] Nucleated RBC/100 WBC (Bld) [Ratio] 0.0 /100 WBC Normal [facility] Comment on above: Order Comment: Speci men Type: BLOOD SPECIMEN Ordering Facility: [facility] Address: [address] [place] [address] Performed By: #### 5 7021-8 #### [facility] [id number] [address] [place] [address] [place] Platelet mean volume (Bld) [Entitic vol] 9.3 fL Normal 9.0-12.7 [facility] Comment on above: Order Comment: Speci men Type: BLOOD SPECIMEN Ordering Facility: [facility] Address: [address] [place] [address] Performed By: #### 5 7021-8 #### [facility] [id number] [address] [place] [address] [place] Platelets (Bld) [#/Vol] 174 10*3/uL Normal 150-400 [facility] Comment on above: Order Comment: Speci men Type: BLOOD SPECIMEN Ordering Facility: [facility] Address: [address] [place] [address] Performed By: #### 5 7021-8 #### [facility] [id number] [address] [place] [address] [place] RBC (Bld) [#/Vol] 3.11 10*6/uL Low 4.20-6.00 [facility] Comment on above: Order Comment: Speci men Type: BLOOD SPECIMEN Ordering Facility: [facility] Address: [address] [place] [address] Performed By: #### 5 7021-8 #### [facility] [id number] [address] [place] [address] [place] WBC (Bld) [#/Vol] 7.78 10*3/uL Normal 3.70-11.00 [facility] Comment on above: Order Comment: Speci men Type: BLOOD SPECIMEN Ordering Facility: [facility] Address: [address] [place] [address] Performed By: #### 5 7021-8 #### [facility] [place] [id number] [address] [place] [address] [place] [address] [place] CNOVSPon 04-20-2025 CNOVSP Visit (SP) Office ([facility]) -------- EMPERATRIZ EPPS ([id number]) 1940 M Date Time Provider Department 04/20/25 1:00 PM EDIS RODRIGEZ [facility] During your visit today, we recorded the following information about you: Temperature Pulse Respiration Blood pressure 98.2 degrees 74/minute 20/minute 141/87 Weight Height 89.8 kg 1.711 m Maryan Yadav RN 04/22/2025 2:14 PM Signed Additional intake questions: Has the patient had fever, nausea, vomiting, diarrhea, constipation, fatigue for > 1 week? No Does the patient have a decreased appetite? No Does patient want to see a Hydrogeologist? No (yes to any of above refer patient to schedulers for dietitian appointment) ) Does patient have any new or increased numbness or tingling of extremities? No Is patient interested in fertility information? No Does patient need any prescription refills? No Does patient have an advanced directive in place? No, Patient refused referral to Social Work or Resource Center Electronically Signed By: ELIESER Adhikari James Michael, MD 04/22/2025 2:14 PM Signed [facility] Patient name: Emperatriz Epps Date of service: 04/20/25 Reason for evaluation: Request for medical oncology opinion by Self for metastatic melanoma. Diagnosis Metastatic Melanoma Oncology History 05/07/2021- WLE And SLNB - Heel lesion, acral melanoma, 2.5 mm, non ulcerated, 1/4 lymph nodes positive (.02 mm), T3N1a May 2021- May 2022- Adjuvant Pembrolizumab Dec 23, 2022- R inguinal lymph node dissection 03/08 lymph nodes positive for metastatic melanoma recurrence, with extracapsular extension March 16- April 12, 2023- Adjuvant RT to inguinal lymph node basin 4800 cGy Sep 2023 - Bx of liver lesion positive for metastatic melanoma Nov 18 2023- Jan 27 2024- Ipilimumab + Nivolumab with MS in liver January 2024- Dec 2024- Nivolumab monotherapy, 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 Mr Epps was dx with stage IIIa melanoma in 2020 followed by regional recurrence in 2022, and metastatic recurrence in the liver in Sep. He has had a significant partial response in the liver after ipi/nivo and was on maintenance nivolumab for a year until he developed nephritis and therapy has been on hold since Dec 2024 as he is completing a steroid taper. He has had general fatigue. 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 Prostate cancer Hemorrhoids Osteoarthritis Unspecified essential hypertension Essential hypertension Surgical History PAST SURGICAL HISTORY Procedure Laterality Date COLONOSCOP W/ OR W/O [facility] 2002 COLONOSCOP W/ OR W/O [facility] 02-13-15 HEMORRHOID;BAND LIGAT, SNGL/MUL 2012 Hemorrhoidectomy HEMORRHOIDECT INTER/EXTER SIMP 1994 LAMINECTOMY,LUMBAR 2000 Laminectomy, lumbar L4-L5 RADIATION TREATMENT MANAGEMENT 12/01/2005 Radiation therapy Prostate cancer REPAIR ROTATOR CUFF,ACUTE Rotator cuff repair-- left VASECTOMY Family History FAMILY HISTORY Problem Relation Age of Onset Allergies Brother Ischemic Heart Disease Mother Hypertension Mother Psychiatry Brother Social History Social History Tobacco Use Smoking status: Never Substance Use Topics Alcohol use: Yes Comment: occasional Drug use: No Medications Current Outpatient Medications Medication Sig Dispense Refill acetaminophen (TYLENOL) 500 mg tablet Take 500 mg by mouth every 8 hours as needed. apixaban (ELIQUIS) 2.5 mg tab(s) Take 2.5 mg by mouth two times a day. polyvinyl alcohol/povidone (ARTIFICIAL TEARS OPHTHALMIC) Use 1 drop in eyes once daily. diphenhydrAMINE (BENADRYL ALLERGY) 25 mg tablet Take 25 mg by mouth every 6 hours as needed. cyproheptadine (PERIACTIN) 4 mg tablet Take 4 mg by mouth one time only. finasteride (PROSCAR) 5 mg tablet Take 5 mg by mouth daily at bedtime. Lactobacillus acidophilus (FLORAJEN ACIDOPHILUS ORAL) Take 1 capsule by mouth with meals. levothyroxine (LEVOXYL) 112 mcg tablet Take 112 mcg by mouth daily before breakfast. lidocaine-prilocaine (EMLA) 2.5-2.5 % cream 1 application as needed. loratadine (CLARITIN) 5 mg/5 mL syrup Take 10 mg by mouth once daily. melatonin 3 mg capsules Take 3 mg by mouth daily at bedtime. metoprolol tartrate, short acting, (LOPRESSOR) 25 mg tablet Take 25 mg by mouth every evening. guaiFENesin (MUCINEX) 600 mg 12 hr tablet Take 1,200 mg by mouth two times a day as needed for cold/allergy symptoms. ondansetron (ZOFRAN) 4 mg tablet Take 4 mg by (more content not included)... Normal [facility] Comprehensive metabolic 2000 panelon 04-20-2025 Albumin [Mass/Vol] 3.6 g/dL Low 3.9 - 4.9 g/dL [facility] ALP [Catalytic activity/Vol] 77 U/L 38 - 113 U/L [facility] ALT [Catalytic activity/Vol] 18 U/L 10 - 54 U/L [facility] Anion gap [Moles/Vol] 14 mmol/L 8 - 15 mmol/L [facility] AST [Catalytic activity/Vol] 12 U/L Low 14 - 40 U/L [facility] Bilirubin [Mass/Vol] 0.4 mg/dL 0.2 - 1 .3 mg/dL [facility] Calcium [Mass/Vol] 8.2 mg/dL Low 8.5 - 10. 2 mg/dL [facility] Chloride [Moles/Vol] 108 mmol/L High 98 - 10 7 mmol/L [facility] CO2 [Moles/Vol] 19 mmol/L Low 22 - 30 mmol/L [facility] Creatinine [Mass/Vol] 2.78 mg/dL High 0.73 - 1.22 mg/dL [facility] GFR/1.73 sq M.predicted among non-blacks MDRD (S/P/Bld) [Vol rate/Area] 22 mL/min/{1.73_m2} Low - PINF [facility] Comment on above: Estimated Glomerular Filtration Rate (eGFR) is calculated using the 2020 CKD-EPI creatinine equation. This equation utilizes serum creatinine, sex, and age as parameters. The creatinine assay has traceable calibration to isotope dilution-mass spectrometry. Refer to KDIGO guidelines for clinical interpretation. In patients with unstable renal function, e.g. those with acute kidney injury, the eGFR may not accurately reflect actual GFR. Glucose [Mass/Vol] 152 mg/dL High 74 - 99 mg/dL [facility] Comment on above: The [place] Diab[employer] s Association (ADA) provides guidance for cutoff values for fasting glucose and random glucose. The ADA defines fasting as no caloric intake for at least 8 hours. Fasting plasma glucose results between 100 to 125 mg/dL indicate increased risk for diabetes (prediabetes). Fasting plasma glucose results greater than or equal to 126 mg/dL meet the criteria for diagnosis of diabetes. In the absence of unequivocal hyperglycemia, results should be confirmed by repeat testing. In a patient with classic symptoms of hyperglycemia or hyperglycemic crisis, random plasma glucose results greater than or equal to 200 mg/dL meet the criteria for diagnosis of diabetes. Reference: Standards of Medical Care in Diabetes 2016, [place] Diabetes Association. Diabetes Care. 2016.39(Suppl 1). Interpretation and review of laboratory results Abnormal [facility] Potassium [Moles/Vol] 3.4 mmol/L Low 3.7 - 5.1 mmol/L [facility] Protein [Mass/Vol] 6 g/dL Low 6.3 - 8.0 g/dL [facility] Sodium [Moles/Vol] 141 mmol/L 136 - 144 mmol/L [facility] Urea nitrogen [Mass/Vol] 45 mg/dL High 9 - 24 mg/dL [facility] Albumin [Mass/Vol] 3.6 g/dL Low 3.9-4.9 [facility] Comment on above: Order Comment: Speci men Type: BLOOD SPECIMEN Ordering Facility: [facility] Address: [facility] [place] [address] Performed By: #### 2 4323-8 #### [facility] CLIA [id number] [address] [place] [address] [place] ALP [Catalytic activity/Vol] 77 U/L Normal 38-113 [facility] Comment on above: Order Comment: Speci men Type: BLOOD SPECIMEN Ordering Facility: [facility] Address: [address] [place] [address] Performed By: #### 2 4323-8 #### [facility] [place] [id number] [address] [place] [address] [place] ALT [Catalytic activity/Vol] 18 U/L Normal 10-54 [facility] Comment on above: Order Comment: Speci men Type: BLOOD SPECIMEN Ordering Facility: [facility] Address: [address] [place] [address] Performed By: #### 2 4323-8 #### [facility] [id number] [address] [place] [address] [place] Anion gap [Moles/Vol] 14 mmol/L Normal 8-15 [facility] Comment on above: Order Comment: Speci men Type: BLOOD SPECIMEN Ordering Facility: [facility] Address: [address] [place] [address] Performed By: #### 2 4323-8 #### [facility] [id number] [address] [place] [address] [place] AST [Catalytic activity/Vol] 12 U/L Low 14-40 [facility] Comment on above: Order Comment: Speci men Type: BLOOD SPECIMEN Ordering Facility: [facility] Address: [address] [place] [address] Performed By: #### 2 4323-8 #### [facility] [id number] [address] [place] [address] [place] Bilirubin [Mass/Vol] 0.4 mg/dL Normal 0.2-1.3 [facility] Comment on above: Order Comment: Speci men Type: BLOOD SPECIMEN Ordering Facility: [facility] Address: [address] [place] [address] Performed By: #### 2 4323-8 #### [facility] [id number] [address] [place] [address] [place] Calcium [Mass/Vol] 8.2 mg/dL Low 8.5-10.2 [facility] Comment on above: Order Comment: Speci men Type: BLOOD SPECIMEN Ordering Facility: [facility] Address: [address] [place] [address] Performed By: #### 2 4323-8 #### [facility] [id number] [address] [place] [address] [place] Chloride [Moles/Vol] 108 mmol/L High 98-107 [facility] Comment on above: Order Comment: Speci men Type: BLOOD SPECIMEN Ordering Facility: [facility] Address: [address] [place] [address] Performed By: #### 2 4323-8 #### [facility] [id number] [address] [place] [address] [place] CO2 [Moles/Vol] 19 mmol/L Low 22-30 [facility] Comment on above: Order Comment: Speci men Type: BLOOD SPECIMEN Ordering Facility: [facility] Address: [address] [place] [address] Performed By: #### 2 4323-8 #### [facility] [id number] [address] [place] [address] [place] Creatinine [Mass/Vol] 2.78 mg/dL High 0.73-1.22 [facility] Comment on above: Order Comment: Speci men Type: BLOOD SPECIMEN Ordering Facility: [facility] Address: [address] [place], [place] [address] Performed By: #### 2 4323-8 #### [facility] [id number] [address] [place], [place] [id number] [place] Creatinine and Glomerular filtration rate.predicted panel (S/P/Bld) 22 mL/min/1.73m??? Low >=60 [facility] Comment on above: Order Comment: Mona snyder Type: BLOOD SPECIMEN Ordering Facility: [facility] Address: [address] [place] [address] Result Comment: Margarita mated Glomerular Filtration Rate (eGFR) is calculated using the 2020 CKD-EPI creatinine equation. This equation utilizes serum creatinine, sex, and age as parameters. The creatinine assay has traceable calibration to isotope dilution-mass spectrometry. Refer to KDIGO guidelines for clinical interpretation. In patients with unstable renal function, e.g. those with acute kidney injury, the eGFR may not accurately reflect actual GFR. Performed By: #### 2 4323-8 #### [facility] CLIA [id number] [address] [place] [address] [place] Glucose [Mass/Vol] 152 mg/dL High 74-99 [facility] Comment on above: Order Comment: Mona snyder Type: BLOOD SPECIMEN Ordering Facility: [facility] Address: [address] [place] [address] Result Comment: The [place] Diabetes Association (ADA) provides guidance for cutoff values for fasting glucose and random glucose. The ADA defines fasting as no caloric intake for at least 8 hours. Fasting plasma glucose results between 100 to 125 mg/dL indicate increased risk for diabetes (prediabetes). Fasting plasma glucose results greater than or equal to 126 mg/dL meet the criteria for diagnosis of diabetes. In the absence of unequivocal hyperglycemia, results should be confirmed by repeat testing. In a patient with classic symptoms of hyperglycemia or hyperglycemic crisis, random plasma glucose results greater than or equal to 200 mg/dL meet the criteria for diagnosis of diabetes. Reference: Standards of Medical Care in Diabetes 2016, [place] [employer] Association. [facility]. 2016.39(Suppl 1). Performed By: #### 2 4323-8 #### [facility] CLIA [id number] [address] [place] [address] [place] Potassium [Moles/Vol] 3.4 mmol/L Low 3.7-5.1 [facility] Comment on above: Order Comment: Speci men Type: BLOOD SPECIMEN Ordering Facility: [facility] Address: [address] [place] [address] Performed By: #### 2 4323-8 #### [facility] [id number] [address] [place] [address] [place] Protein [Mass/Vol] 6.0 g/dL Low 6.3-8.0 [facility] Comment on above: Order Comment: Speci men Type: BLOOD SPECIMEN Ordering Facility: [facility] Address: [address] [place] [address] Performed By: #### 2 4323-8 #### [facility] [id number] [address] [place] [address] [place] Sodium [Moles/Vol] 141 mmol/L Normal 136-144 [facility] Comment on above: Order Comment: Speci men Type: BLOOD SPECIMEN Ordering Facility: [facility] Address: [address] [place] [address] Performed By: #### 2 4323-8 #### [facility] [id number] [address] [place] [address] [place] Urea nitrogen [Mass/Vol] 45 mg/dL High 9-24 [facility] Comment on above: Order Comment: Speci men Type: BLOOD SPECIMEN Ordering Facility: [facility] Address: [address] [place] [address] Performed By: #### 2 4323-8 #### [facility] [id number] [address] [place] [address] [place] LACTATE DEHYDROGENASEon 03-30 LDH [Catalytic activity/Vol] 318 U/L High 135 - 225 U/L [facility] LDH SerPl-cCncon 04-20-2025 LDH [Catalytic activity/Vol] 318 U/L High 135-225 [facility] Comment on above: Order Comment: Speci men Type: BLOOD SPECIMEN Ordering Facility: [facility] Address: [address] [place] [address] Performed By: #### 2 532-0 #### [facility] CLIA [id number] [address] [place] [address] [place] LDH [Catalytic activity/Vol] on 04-20-2025 Interpretation and review of laboratory results Abnormal [facility] OUTSIDE SURG PATH SLIDE REVI EWon 04-18-2025 AP DISCLAIMER Normal [facility] Comment on above: Order Comment: Speci men Type: FORMALIN-FIXED PARAFFIN-EMBEDDED TISSUE SPECIMEN Ordering Facility: AP Outside Review Address: , , Result Comment: Adolfo smith Developed Test (LDT) Disclaimer: Performance characteristics of immunohistochemical, immunofluorescent, and chromogenic in-situ hybridization tests have been determined by the performing laboratory within [facility]'s [facility] Pathology and Laboratory Medicine Department ([facility], [facility], [facility], [facility], [facility], [facility], or [facility]) in a manner consistent with CLIA requirements. One or more of these tests may not have been cleared or approved by the FDA. [facility] is regulated under CLIA as qualified to perform high-complexity testing. These tests are used for clinical purposes. These should not be regarded as investigational or for research. Positive and negative controls stain appropriately. Performed By: #### L [id number] #### [facility] CLIA [id number] [address] [place] [address] [place] [facility] CLIA [id number] [address] [place] [address] [place] CASE REPORT Normal [facility] Comment on above: Order Comment: Speci men Type: FORMALIN-FIXED PARAFFIN-EMBEDDED TISSUE SPECIMEN Ordering Facility: [facility] Outside Review Address: , , Result Comment: Surg ica Pathology Report Case: [id number] Authorizing Provider: Edis Rodrigez MD Collected: 04/18/2025 11:39 AM Ordering Location: [facility] Received: 04/18/2025 11:35 AM [facility] Pathologist: Monalisa Martinez MD Specimen: Slide(s), 11 SLIDES, [id number] Performed By: #### L [id number] #### [facility] CLIA [id number] [address] [facility] CLIA [id number] [address] [place] [address] DIAGNOSIS COMMENT Normal [facility] Comment on above: Order Comment: Speci men Type: FORMALIN-FIXED PARAFFIN-EMBEDDED TISSUE SPECIMEN Ordering Facility: [facility] Outside Review Address: , , Result Comment: A. H istologic sections show a proliferation of atypical epithelioid cells associated with lymphoid and fibroadipose tissue. The lesional cells are arranged in large nodules and sheets with a haphazard growth pattern. The cells display moderately enlarged ovoid nuclei, frequent prominent nucleoli, and a small amount of pale eosinophilic cytoplasm. There is scattered intracytoplasmic pigment as well as numerous associated pigmented macrophages. The enclosed immunohistochemical stains are reviewed at the [facility] along with the provided appropriate controls. The neoplastic cells are strongly and diffusely positive for MART-1, weakly positive for S100, and negative for pancytokeratin. CD45 highlights inflammatory cells. Overall, these features are consistent with metastatic melanoma. Per the provided addendum report, molecular testing was negative for clinically relevant point mutations (including in the BRAF, KIT and NF1 genes), showed a low tumor mutation burden (1.6 mutations/MB), and showed microsatellite stability. Performed By: #### L [id number] #### [facility] [place] [id number] [address] [place] [address] OF [facility] CLIA [id number] [address] [place] [address] FINAL DIAGNOSIS Normal [facility] Comment on above: Order Comment: Speci men Type: FORMALIN-FIXED PARAFFIN-EMBEDDED TISSUE SPECIMEN Ordering Facility: [facility] Outside Review Address: , , Result Comment: Marguerite Laird ymph node, right groin, needle core biopsy ([id number], 11/16/2022): - Metastatic melanoma, see comment. /ANA 04/26/2025 at 1414 EDT Performed By: #### L [id number] #### [facility] CLIA [id number] OF [facility] CLIA [id number] [address] [place] [address] FINAL PERFORMING LAB Normal [facility] Comment on above: Order Comment: Speci men Type: FORMALIN-FIXED PARAFFIN-EMBEDDED TISSUE SPECIMEN Ordering Facility: Outside Review Address: , , Result Comment: Diag nostic interpretation performed at: [facility], [address] [place] [address], [place] [address] CLIA# [id number] Data Entry Operator: Jean Claude Villa MD Performed By: #### L [id number] #### [facility] CLIA [id number] [address] STATES OF [facility] CLIA [id number] [address] [place] [address] Absolute lymphocyte countOrd ered By: Brianna Souza on 04-11-2025 Lymphocytes Auto (Unsp spec) [#/Vol] 0.49 10*3/uL Low 0.83-4.51 [facility] Absolute neutrophil countOrd ered By: Brianna Souza on 04-11-2025 Neutrophils (Bld) [#/Vol] 5.7 10*3/uL 2.0-7.7 [facility] Anion gap in Serum or Plasma Ordered By: Brianna Souza on 04-11-2025 Anion gap [Moles/Vol] 10 mmol/L - [facility] Automated lymphocyte count a s percentage of total leukocytesOrdered By: Brianna Souza on 04-11-2025 Lymphocytes/100 WBC Auto (Unsp spec) 7.3 % Low -41 [facility] BUN/creatinine ratioOrdered By: Brianna Souza on 04-11-2025 Urea nitrogen/Creatinine [Mass ratio] 15.9 mg/mg - [facility] Basic Metabolic Profile (BMP )on 04-11-2025 BUN/CRE 15.9 RATIO Normal 10-20 [facility] Comment on above: Performed By: #### L 100.0100, L501.5200, L500.2500, L501.2300 ####[facility] [address] [place], [address] Calcium [Mass/Vol] 8.1 mg/dL Normal 7.6-11.0 [facility] Comment on above: Performed By: #### L 100.0100, L501.5200, L500.2500, L501.2300 ####[facility] [address] [place], [address] Chloride [Moles/Vol] 110 mmol/L High 98-108 [facility] Comment on above: Performed By: #### L 100.0100, L501.5200, L500.2500, L501.2300 ####[facility] [address] [place], [address] CO2 [Moles/Vol] 17.2 mmol/L Low 21.0-32.0 [facility] Comment on above: Performed By: #### L 100.0100, L501.5200, L500.2500, L501.2300 ####[facility] [address] [place], [address] Creatinine [Mass/Vol] 3.01 mg/dL High 0.70-1.20 [facility] Comment on above: Performed By: #### L 100.0100, L501.5200, L500.2500, L501.2300 ####[facility] [address] [place], [address] ECRCL 19.37 ml/min Low 50-250 [facility] Comment on above: Performed By: #### L 100.0100, L501.5200, L500.2500, L501.2300 ####[facility] [address] [place], [address] GAP 10 Normal 5-15 [facility] Comment on above: Performed By: #### L 100.0100, L501.5200, L500.2500, L501.2300 ####[facility] [address] [place], [address] GFR/1.73 sq M.predicted among non-blacks MDRD (S/P/Bld) [Vol rate/Area] 20 mL/min/{1.73_m2} Low >60 [facility] Comment on above: Result Comment: mL/m in/1.73m2 CKD-EPI Creatinine Equation (2020) Performed By: #### L 100.0100, L501.5200, L500.2500, L501.2300 ####[facility] [address] [place], [address] Glucose [Mass/Vol] 116 mg/dL High 70-99 [facility] Comment on above: Performed By: #### L 100.0100, L501.5200, L500.2500, L501.2300 ####[facility] [address] [place], [address] Potassium [Moles/Vol] 3.3 mmol/L Normal 3.3-5.1 [facility] Comment on above: Performed By: #### L 100.0100, L501.5200, L500.2500, L501.2300 ####[facility] [address] [place], [address] Sodium [Moles/Vol] 137 mmol/L Normal 133-145 [facility] Comment on above: Performed By: #### L 100.0100, L501.5200, L500.2500, L501.2300 ####[facility] [address] [place], [address] Urea nitrogen [Mass/Vol] 48 mg/dL High 4-19 [facility] Comment on above: Performed By: #### L 100.0100, L501.5200, L500.2500, L501.2300 ####[facility] [address] [place], [address] Basophil percentageOrdered B y: Brianna Souza on 04-11-2025 Basophils/100 WBC (Bld) 0.1 % 0-[address] [facility] CBC W/Diff, Automatedon 03-29 Absolute Lymph 0.49 X10 3/uL Low 0.83-4.51 [facility] Comment on above: Performed By: #### L 100.0100, L501.5200, L500.2500, L501.2300 ####[facility] [address] [place], [address] Absolute Neut 5.7 X10 3/uL Normal 2.0-7.7 [facility] Comment on above: Performed By: #### L 100.0100, L501.5200, L500.2500, L501.2300 ####[facility] [address] [place], [address] Basophils/100 WBC (Bld) 0.1 % Normal 0-[address] [facility] Comment on above: Performed By: #### L 100.0100, L501.5200, L500.2500, L501.2300 ####[facility] [address] [place], [address] Eosinophils/100 WBC (Bld) 0.3 % Normal 0-5 [facility] Comment on above: Performed By: #### L 100.0100, L501.5200, L500.2500, L501.2300 ####[facility] [address] [place], [address] Erythrocyte distribution width (RBC) [Ratio] 14.6 % Normal 11.6-14.6 [facility] Comment on above: Performed By: #### L 100.0100, L501.5200, L500.2500, L501.2300 ####[facility] [address] [place], [address] Hematocrit (Bld) [Volume fraction] 27.9 % Low 40-54 [facility] Comment on above: Performed By: #### L 100.0100, L501.5200, L500.2500, L501.2300 ####[facility] [address] [place], [address] Hemoglobin (Bld) [Mass/Vol] 9.4 g/dL Low 13.0-16.5 [facility] Comment on above: Performed By: #### L 100.0100, L501.5200, L500.2500, L501.2300 ####[facility] [address] [place], [address] IG% 1.200 High 0.0-0.9 [facility] Comment on above: Result Comment: IG% - Immature Granulocytes (promyelocytes, myelocytes andmetamyelocytes) > 1% indicates that a LEFT SHIFT is Present. Performed By: #### L 100.0100, L501.5200, L500.2500, L501.2300 ####[facility] [address] [place], [address] Lymphocytes/100 WBC (Bld) 7.3 % Low 19-41 [facility] Comment on above: Performed By: #### L 100.0100, L501.5200, L500.2500, L501.2300 ####[facility] [address] [place], [address] MCH (RBC) [Entitic mass] 32.4 pg High 27.0-32.0 [facility] Comment on above: Performed By: #### L 100.0100, L501.5200, L500.2500, L501.2300 ####[facility] [address] [place], [address] MCHC (RBC) [Mass/Vol] 33.7 g/dL Normal 32-36 [facility] Comment on above: Performed By: #### L 100.0100, L501.5200, L500.2500, L501.2300 ####[facility] [address] [place], [address] MCV (RBC) [Entitic vol] 96.2 fL High 80-94 [facility] Comment on above: Performed By: #### L 100.0100, L501.5200, L500.2500, L501.2300 ####[facility] [address] [place], [address] Monocytes/100 WBC (Bld) 6.1 % Normal 0-10 [facility] Comment on above: Performed By: #### L 100.0100, L501.5200, L500.2500, L501.2300 ####[facility] [address] [place], [address] Neutrophils/100 WBC (Bld) 85.0 % High 47-70 [facility] Comment on above: Performed By: #### L 100.0100, L501.5200, L500.2500, L501.2300 ####[facility] [address] [place], [address] Nucleated RBC (Bld) [#/Vol] 0 10*3/uL Normal 0-5 [facility] Comment on above: Performed By: #### L 100.0100, L501.5200, L500.2500, L501.2300 ####[facility] [address] [place], [address] Platelet mean volume (Bld) [Entitic vol] 8.8 fL Normal 6.2-12.0 [facility] Comment on above: Performed By: #### L 100.0100, L501.5200, L500.2500, L501.2300 ####[facility] [address] [place], [address] Platelets (Bld) [#/Vol] 163 10*3/uL Normal 150-450 [facility] Comment on above: Performed By: #### L 100.0100, L501.5200, L500.2500, L501.2300 ####[facility] [address] [place], [address] RBC (Bld) [#/Vol] 2.90 10*6/uL Low 4.6-6.2 [facility] Comment on above: Performed By: #### L 100.0100, L501.5200, L500.2500, L501.2300 ####[facility] [address] [place], [address] RDW SD 51.3 fl High 35.1-43.9 [facility] Comment on above: Performed By: #### L 100.0100, L501.5200, L500.2500, L501.2300 ####[facility] [address] [place], [address] WBC (Bld) [#/Vol] 6.7 10*3/uL Normal 4.4-11.0 [facility] Comment on above: Performed By: #### L 100.0100, L501.5200, L500.2500, L501.2300 ####[facility] [address] [place], [address] Carbon dioxide, total [Moles /volume] in Central venous bloodOrdered By: Brianna Souza on 04-11-2025 CO2 [Moles/Vol] 17.2 mmol/L Low 21.0-32.0 [facility] Chloride assayOrdered By: Balta Souza on 04-11-2025 Chloride [Moles/Vol] 110 mmol/L High 98-108 [facility] Eosinophil percentageOrdered By: Brianna Souza on 04-11-2025 Eosinophils/100 WBC (Bld) 0.3 % 0-5 [facility] Erythrocyte distribution wid th ratioOrdered By: Brianna Souza on 04-11-2025 Erythrocyte distribution width (RBC) [Ratio] 14.6 % 11.6-14.6 [facility] Erythrocyte distribution wid th standard deviationOrdered By: Brianna Souza on 04-11-2025 Erythrocyte distribution width (RBC) [Ratio] 51.3 fl High 35.1-43.9 [facility] Glomerular filtration rate ( GFR) estimation/1.73 sq m using serum, plasma, or whole bOrdered By: [facility] on 04-11-2025 GFR/1.73 sq M.predicted among non-blacks MDRD (S/P/Bld) [Vol rate/Area] 20 mL/min/{1.73_m2} Low >60 [facility] Comment on above: mL/min/1.73m2 CKD-EP I Creatinine Equation (2020) Hematocrit Auto (Bld) [Volum e fraction]Ordered By: Brianna Souza on 04-11-2025 Hematocrit (Bld) [Volume fraction] 27.9 % Low 40-54 [facility] Hemoglobin measurementOrdere d By: [facility] on 04-11-2025 Hemoglobin (Bld) [Mass/Vol] 9.4 g/dL Low 13.0-16.5 [facility] Immature granulocytes/100 WB C Auto (Bld)Ordered By: Brianna Souza on 04-11-2025 Immature granulocytes/100 WBC (Bld) 1.200 % High 0.0-0.9 [facility] Comment on above: IG% - Immature Granu locytes (promyelocytes, myelocytes and metamyelocytes) > 1% indicates that a LEFT SHIFT is Present. MCV (mean corpuscular volume ) determinationOrdered By: Brianna Souza on 04-11-2025 MCV (RBC) [Entitic vol] 96.2 fL High 80-[address] [facility] Magnesiumon 04-11-2025 Magnesium [Mass/Vol] 2.2 mg/dL Normal 1.5-2.2 [facility] Comment on above: Performed By: #### L 100.0100, L501.5200, L500.2500, L501.2300 ####[facility] [address] [place], [place], [address] Magnesium measurement (mass/ volume)Ordered By: Brianna Souza on 04-11-2025 Magnesium (Unsp spec) [Mass/Vol] 2.2 mg/dL 1.5-2.2 [facility] Mean corpuscular hemoglobin (MCH) determinationOrdered By: Brianna Souza on 04-11-2025 MCH (RBC) [Entitic mass] 32.4 pg High 27.0-32.0 [facility] Mean corpuscular hemoglobin concentration (MCHC) determinationOrdered By: Brianna Souza on 04-11-2025 MCHC (RBC) [Mass/Vol] 33.7 g/dL 32-36 [facility] Mean platelet volume determi nationOrdered By: Brianna Souza on 04-11-2025 Platelet mean volume (Bld) [Entitic vol] 8.8 fL 6.2-12.0 [facility] Monocyte percentageOrdered B y: Brianna Souza on 04-11-2025 Monocytes/100 WBC (Bld) 6.1 % 0-[address] [facility] Neutrophil percentageOrdered By: Brianna Souza on 04-11-2025 Neutrophils/100 WBC (Bld) 85.0 % High 47-70 [facility] Nucleated red blood cell per centageOrdered By: Brianna Souza on 04-11-2025 Nucleated RBC/100 WBC (Bld) [Ratio] 0 % 0-5 [facility] Oncology Visit Reporton 03-29 Oncology Visit Report Normal [facility] Phosphoruson 04-11-2025 Phosphate [Mass/Vol] 2.7 mg/dL Normal 2.7-4.5 [facility] Comment on above: Performed By: #### L 100.0100, L501.5200, L500.2500, L501.2300 ####[facility] [address] [place], [address] Platelet countOrdered By: Balta Souza on 04-11-2025 Platelets (Bld) [#/Vol] 163 10*3/uL 150-450 [facility] Potassium measurement (mass/ volume)Ordered By: Brianna Souza on 04-11-2025 Potassium (Unsp spec) [Mass/Vol] 3.3 mmol/L 3.3-5.1 [facility] RBC Auto (Bld) [#/Vol]Ordere d By: Brianna Souza on 04-11-2025 RBC (Bld) [#/Vol] 2.90 10*6/uL Low 4.6-6.2 [facility] Serum creatinine measurement (mass/volume)Ordered By: Brianna Souza on 04-11-2025 Creatinine [Mass/Vol] 3.01 mg/dL High 0.70-1.20 [facility] Serum glucose measurement (m ass/volume)Ordered By: [facility] on 04-11-2025 Glucose [Mass/Vol] 116 mg/dL High 70-99 [facility] Serum or plasma calcium arian urement (mass/volume)Ordered By: Brianna Souza on 04-11-2025 Calcium [Mass/Vol] 8.1 mg/dL 7.6-11.0 [facility] Serum or plasma urea nitroge n measurement (mass/volume)Ordered By: Brianna Souza on 04-11-2025 Urea nitrogen [Mass/Vol] 48 mg/dL High 4-19 [facility] Sodium levelOrdered By: Donavan Souza on 04-11-2025 Sodium [Moles/Vol] 137 mmol/L 133-145 [facility] White blood cell (WBC) count Ordered By: Brianna Souza on 04-11-2025 WBC (Bld) [#/Vol] 6.7 10*3/uL 4.4-11.0 [facility] CBC W/Diff, Automatedon 02-28 Absolute Lymph 0.74 X10 3/uL Low 0.83-4.51 [facility] Comment on above: Performed By: #### L 500.4050, L100.0100 ####[facility] [address] [place], [address] Absolute Neut 9.2 X10 3/uL High 2.0-7.7 [facility] Comment on above: Performed By: #### L 500.4050, L100.0100 ####[facility] [address] [place], [address] Basophils/100 WBC (Bld) 0.0 % Normal 0-[address] [facility] Comment on above: Performed By: #### L 500.4050, L100.0100 ####[facility] [address] [place], [address] Eosinophils/100 WBC (Bld) 0.1 % Normal 0-5 [facility] Comment on above: Performed By: #### L 500.4050, L100.0100 ####[facility] [address] [place], [address] Erythrocyte distribution width (RBC) [Ratio] 13.5 % Normal 11.6-14.6 [facility] Comment on above: Performed By: #### L 500.4050, L100.0100 ####[facility] [address] [place], [address] Hematocrit (Bld) [Volume fraction] 28.3 % Low 40-54 [facility] Comment on above: Performed By: #### L 500.4050, L100.0100 ####[facility] [address] [place], [address] Hemoglobin (Bld) [Mass/Vol] 9.7 g/dL Low 13.0-16.5 [facility] Comment on above: Performed By: #### L 500.4050, L100.0100 ####[facility] [address] [place], [address] IG% 0.500 Normal 0.0-0.9 [facility] Comment on above: Result Comment: IG% - Immature Granulocytes (promyelocytes, myelocytes andmetamyelocytes) > 1% indicates that a LEFT SHIFT is Present. Performed By: #### L 500.4050, L100.0100 ####[facility] [address] [place], [address] Lymphocytes/100 WBC (Bld) 7.0 % Low 19-41 [facility] Comment on above: Performed By: #### L 500.4050, L100.0100 ####[facility] [address] [place], [address] MCH (RBC) [Entitic mass] 32.8 pg High 27.0-32.0 [facility] Comment on above: Performed By: #### L 500.4050, L100.0100 ####[facility] [address] [place], [address] MCHC (RBC) [Mass/Vol] 34.3 g/dL Normal 32-36 [facility] Comment on above: Performed By: #### L 500.4050, L100.0100 ####[facility] [address] [place], [address] MCV (RBC) [Entitic vol] 95.6 fL High 80-[address] [facility] Comment on above: Performed By: #### L 500.4050, L100.0100 ####[facility] [address] [place], [address] Monocytes/100 WBC (Bld) 4.6 % Normal 0-10 [facility] Comment on above: Performed By: #### L 500.4050, L100.0100 ####[facility] [address] [place], [address] Neutrophils/100 WBC (Bld) 87.8 % High 47-70 [facility] Comment on above: Performed By: #### L 500.4050, L100.0100 ####[facility] [address] [place], [address] Nucleated RBC (Bld) [#/Vol] 0 10*3/uL Normal 0-5 [facility] Comment on above: Performed By: #### L 500.4050, L100.0100 ####[facility] [address] [place], [address] Platelet mean volume (Bld) [Entitic vol] 9.6 fL Normal 6.2-12.0 [facility] Comment on above: Performed By: #### L 500.4050, L100.0100 ####[facility] [address] [place], [address] Platelets (Bld) [#/Vol] 161 10*3/uL Normal 150-450 [facility] Comment on above: Performed By: #### L 500.4050, L100.0100 ####[facility] [address] [place], [address] RBC (Bld) [#/Vol] 2.96 10*6/uL Low 4.6-6.2 [facility] Comment on above: Performed By: #### L 500.4050, L100.0100 ####[facility] [address] [place], [address] RDW SD 47.5 fl High 35.1-43.9 [facility] Comment on above: Performed By: #### L 500.4050, L100.0100 ####[facility] [address] [place], [address] WBC (Bld) [#/Vol] 10.5 10*3/uL Normal 4.4-11.0 [facility] Comment on above: Performed By: #### L 500.4050, L100.0100 ####[facility] [address] [place], [address] Comprehensive Metabolic Prof ilon 03-26-2025 Albumin [Mass/Vol] 3.4 g/dL Normal 3.4-4.8 [facility] Comment on above: Performed By: #### L 500.4050, L100.0100 ####[facility] [address] [place], [address] Albumin/Globulin [Mass ratio] 1.4 {ratio} Normal 0.9-2.4 [facility] Comment on above: Performed By: #### L 500.4050, L100.0100 ####[facility] [address] [place], [address] ALK PHOS 59 U/L Normal 40-129 [facility] Comment on above: Performed By: #### L 500.4050, L100.0100 ####[facility] [address] [place], [address] ALT [Catalytic activity/Vol] 19 U/L Normal <=46 [facility] Comment on above: Performed By: #### L 500.4050, L100.0100 ####[facility] [address] [place], [address] AST [Catalytic activity/Vol] 16 U/L Normal <=37 [facility] Comment on above: Performed By: #### L 500.4050, L100.0100 ####[facility] [address] [place], [address] Bilirubin [Mass/Vol] 0.36 mg/dL Normal 0.00-1.30 [facility] Comment on above: Performed By: #### L 500.4050, L100.0100 ####[facility] [address] [place], [address] BUN/CRE 21.5 RATIO High 10-20 [facility] Comment on above: Performed By: #### L 500.4050, L100.0100 ####[facility] [address] [place], [address] Calcium [Mass/Vol] 8.1 mg/dL Normal 7.6-11.0 [facility] Comment on above: Performed By: #### L 500.4050, L100.0100 ####[facility] [address] [place], [address] Chloride [Moles/Vol] 110 mmol/L High 98-108 [facility] Comment on above: Performed By: #### L 500.4050, L100.0100 ####[facility] [address] [place], [address] CO2 [Moles/Vol] 13.3 mmol/L Low 21.0-32.0 [facility] Comment on above: Performed By: #### L 500.4050, L100.0100 ####[facility] [address] [place], [address] Creatinine [Mass/Vol] 3.37 mg/dL High 0.70-1.20 [facility] Comment on above: Performed By: #### L 500.4050, L100.0100 ####[facility] [address] [place], [address] ECRCL 17.30 ml/min Low 50-250 [facility] Comment on above: Performed By: #### L 500.4050, L100.0100 ####[facility] [address] [place], [address] GAP 12 Normal 5-15 [facility] Comment on above: Performed By: #### L 500.4050, L100.0100 ####[facility] [address] [place], [address] GFR/1.73 sq M.predicted among non-blacks MDRD (S/P/Bld) [Vol rate/Area] 17 mL/min/{1.73_m2} Low >60 [facility] Comment on above: Result Comment: mL/m in/1.73m2 CKD-EPI Creatinine Equation (2020) Performed By: #### L 500.4050, L100.0100 ####[facility] [address] [place], [address] Globulin (S) [Mass/Vol] 2.4 g/dL Normal 2.2-4.[address] [facility] Comment on above: Performed By: #### L 500.4050, L100.0100 ####[facility] [address] [place], [address] Glucose [Mass/Vol] 132 mg/dL High 70-99 [facility] Comment on above: Performed By: #### L 500.4050, L100.0100 ####[facility] [address] [place], [address] Potassium [Moles/Vol] 3.4 mmol/L Normal 3.3-5.1 [facility] Comment on above: Performed By: #### L 500.4050, L100.0100 ####[facility] [address] [place], [address] Sodium [Moles/Vol] 136 mmol/L Normal 133-145 [facility] Comment on above: Performed By: #### L 500.4050, L100.0100 ####[facility] [address] [place], [address] T PROT 5.7 g/dL Low 5.9-8.4 [facility] Comment on above: Performed By: #### L 500.4050, L100.0100 ####[facility] [address] [place], [address] Urea nitrogen [Mass/Vol] 72 mg/dL High 4-19 [facility] Comment on above: Performed By: #### L 500.4050, L100.0100 ####[facility] [address] [place], [address] Magnesiumon 03-26-2025 Magnesium [Mass/Vol] 2.1 mg/dL Normal 1.5-2.2 [facility] Comment on above: Performed By: #### L 501.5200, L501.2300 ####[facility] [address] [place], [place], [address] Oncology Visit Reporton 02-28 Oncology Visit Report Normal [facility] Phosphoruson 03-26-2025 Phosphate [Mass/Vol] 3.9 mg/dL Normal 2.7-4.5 [facility] Comment on above: Performed By: #### L 501.5200, L501.2300 ####[facility] [address] [place], [address] Bilirubin, totalOrdered By: Brianna Souza on 03-22-2025 Bilirubin [Mass/Vol] 0.36 mg/dL 0.00-1.30 [facility] Laboratory - Chemistry and C hemistry - challengeOrdered By: Brianna Souza on 03-22-2025 AST [Catalytic activity/Vol] 16 U/L <38 [facility] Serum globulin measurementOr dered By: Brianna Souza on 03-22-2025 Globulin (S) [Mass/Vol] 2.4 g/dL 2.2-4.2 [facility] Serum or plasma alanine oro otransferase (ALT) measurementOrdered By: Brianna Souza on 03-22-2025 ALT [Catalytic activity/Vol] 19 U/L <47 [facility] Serum or plasma albumin arian urement (mass/volume)Ordered By: Brianna Souza on 03-22-2025 Albumin [Mass/Vol] 3.4 g/dL 3.4-4.8 [facility] Serum or plasma albumin/glob ulin mass ratioOrdered By: Brianna Souza on 03-22-2025 Albumin/Globulin [Mass ratio] 1.4 {ratio} 0.9-2.4 [facility] Serum or plasma alkaline leidy sphatase measurementOrdered By: Brianna Souza on 03-22-2025 ALP [Catalytic activity/Vol] 59 U/L 40-129 [facility] Total proteinOrdered By: Rohit Souza on 03-22-2025 Protein [Mass/Vol] 5.7 g/dL Low 5.9-8.4 [facility] Basic Metabolic Profile (BMP )on 03-12-2025 BUN/CRE 16.0 RATIO Normal 10-20 [facility] Comment on above: Performed By: #### L 500.2500 ####[facility] [address] [place], [address] Calcium [Mass/Vol] 8.4 mg/dL Normal 7.6-11.0 [facility] Comment on above: Performed By: #### L 500.2500 ####[facility] [address] [place], [address] Chloride [Moles/Vol] 112 mmol/L High 98-108 [facility] Comment on above: Performed By: #### L 500.2500 ####[facility] [address] [place], [address] CO2 [Moles/Vol] 14.8 mmol/L Low 21.0-32.0 [facility] Comment on above: Performed By: #### L 500.2500 ####[facility] [address] [place], [address] Creatinine [Mass/Vol] 4.67 mg/dL High 0.70-1.20 [facility] Comment on above: Performed By: #### L 500.2500 ####[facility] [address] [place], [address] ECRCL 12.30 ml/min Low 50-250 [facility] Comment on above: Performed By: #### L 500.2500 ####[facility] [address] [place], [address] GAP 11 Normal 5-15 [facility] Comment on above: Performed By: #### L 500.2500 ####[facility] [address] [place], [address] GFR/1.73 sq M.predicted among non-blacks MDRD (S/P/Bld) [Vol rate/Area] 12 mL/min/{1.73_m2} Low >60 [facility] Comment on above: Result Comment: mL/m in/1.73m2 CKD-EPI Creatinine Equation (2020) Performed By: #### L 500.2500 ####[facility] [address] [place], [address] Glucose [Mass/Vol] 126 mg/dL High 70-99 [facility] Comment on above: Performed By: #### L 500.2500 ####[facility] [address] [place], [address] Potassium [Moles/Vol] 4.6 mmol/L Normal 3.3-5.1 [facility] Comment on above: Performed By: #### L 500.2500 ####[facility] [address] [place], [address] Sodium [Moles/Vol] 137 mmol/L Normal 133-145 [facility] Comment on above: Performed By: #### L 500.2500 ####[facility] [address] [place], [address] Urea nitrogen [Mass/Vol] 75 mg/dL High 4-19 [facility] Comment on above: Performed By: #### L 500.2500 ####[facility] [address] [place], [address] Oncology Visit Reporton 02-27 Oncology Visit Report Normal [facility] Basic Metabolic Profile (BMP )on 03-09-2025 BUN/CRE 10.6 RATIO Normal 10-20 [facility] Comment on above: Performed By: #### L 500.2500 ####[facility] [address] [place], [address] Calcium [Mass/Vol] 8.8 mg/dL Normal 7.6-11.0 [facility] Comment on above: Performed By: #### L 500.2500 ####[facility] [address] [place], [address] Chloride [Moles/Vol] 107 mmol/L Normal 98-108 [facility] Comment on above: Performed By: #### L 500.2500 ####[facility] [address] [place], [address] CO2 [Moles/Vol] 15.4 mmol/L Low 21.0-32.0 [facility] Comment on above: Performed By: #### L 500.2500 ####[facility] [address] [place], [address] Creatinine [Mass/Vol] 5.57 mg/dL High 0.70-1.20 [facility] Comment on above: Performed By: #### L 500.2500 ####[facility] [address] [place], [address] ECRCL 10.31 ml/min Low 50-250 [facility] Comment on above: Performed By: #### L 500.2500 ####[facility] [address] [place], [address] GAP 14 Normal 5-15 [facility] Comment on above: Performed By: #### L 500.2500 ####[facility] [address] [place], [address] GFR/1.73 sq M.predicted among non-blacks MDRD (S/P/Bld) [Vol rate/Area] 9 mL/min/{1.73_m2} Low >60 [facility] Comment on above: Result Comment: mL/m in/1.73m2 CKD-EPI Creatinine Equation (2020) Performed By: #### L 500.2500 ####[facility] [address] [place], [address] Glucose [Mass/Vol] 158 mg/dL High 70-99 [facility] Comment on above: Performed By: #### L 500.2500 ####[facility] [address] [place], [address] Potassium [Moles/Vol] 4.6 mmol/L Normal 3.3-5.1 [facility] Comment on above: Performed By: #### L 500.2500 ####[facility] [address] [place], [address] Sodium [Moles/Vol] 136 mmol/L Normal 133-145 [facility] Comment on above: Performed By: #### L 500.2500 ####[facility] [address] [place], [address] Urea nitrogen [Mass/Vol] 59 mg/dL High 4-19 [facility] Comment on above: Performed By: #### L 500.2500 ####[facility] [address] [place], [address] Basic Metabolic Profile (BMP )on 03-08-2025 BUN/CRE 8.0 RATIO Low 10-20 [facility] Comment on above: Performed By: #### L 500.2500 ####[facility] [address] [place], [address] Calcium [Mass/Vol] 8.8 mg/dL Normal 7.6-11.0 [facility] Comment on above: Performed By: #### L 500.2500 ####[facility] [address] [place], [address] Chloride [Moles/Vol] 102 mmol/L Normal 98-108 [facility] Comment on above: Performed By: #### L 500.2500 ####[facility] [address] [place], [address] CO2 [Moles/Vol] 15.1 mmol/L Low 21.0-32.0 [facility] Comment on above: Performed By: #### L 500.2500 ####[facility] [address] [place], [address] Creatinine [Mass/Vol] 5.91 mg/dL High 0.70-1.20 [facility] Comment on above: Performed By: #### L 500.2500 ####[facility] [address] [place], [address] ECRCL 9.72 ml/min Invalid Interpretation Code 50-250 [facility] Comment on above: Performed By: #### L 500.2500 ####[facility] [address] [place], [address] GAP 15 Normal 5-15 [facility] Comment on above: Performed By: #### L 500.2500 ####[facility] [address] [place], [address] GFR/1.73 sq M.predicted among non-blacks MDRD (S/P/Bld) [Vol rate/Area] 9 mL/min/{1.73_m2} Low >60 [facility] Comment on above: Result Comment: mL/m in/1.73m2 CKD-EPI Creatinine Equation (2020) Performed By: #### L 500.2500 ####[facility] [address] [place], [address] Glucose [Mass/Vol] 210 mg/dL High 70-99 [facility] Comment on above: Performed By: #### L 500.2500 ####[facility] [address] [place], [address] Potassium [Moles/Vol] 4.5 mmol/L Normal 3.3-5.1 [facility] Comment on above: Performed By: #### L 500.2500 ####[facility] [address] [place], [address] Sodium [Moles/Vol] 132 mmol/L Low 133-145 [facility] Comment on above: Performed By: #### L 500.2500 ####[facility] [address] [place], [address] Urea nitrogen [Mass/Vol] 48 mg/dL High 4-19 [facility] Comment on above: Performed By: #### L 500.2500 ####[facility] [address] [place], [address] Protein Electroph, Son 03-08 Albumin [Mass/Vol] 3.3 g/dL Normal 2.9-4.4 [facility] Comment on above: Order Comment: Order Date: 03/05/25Order Info: 0060-1 - PROEL Performed By: #### L 3100.3450, L100.0100 ####[facility] [address] [place], [address] Albumin/Globulin [Mass ratio] 0.9 {ratio} Normal 0.7-1.7 [facility] Comment on above: Order Comment: Order Date: 03/05/25Order Info: 0060-1 - PROEL Performed By: #### L 3100.3450, L100.0100 ####[facility] [address] [place], [address] ALPHA-1 GLOBUL 0.3 g/dL Normal 0.0-0.4 [facility] Comment on above: Order Comment: Order Date: 03/05/25Order Info: 0060-1 - PROEL Performed By: #### L 3100.3450, L100.0100 ####[facility] [address] [place], [address] ALPHA-2 GLOBUL 0.8 g/dL Normal 0.4-1.0 [facility] Comment on above: Order Comment: Order Date: 03/05/25Order Info: 0060-1 - PROEL Performed By: #### L 3100.3450, L100.0100 ####[facility] [address] [place], [address] BETA GLOBULIN 0.9 g/dL Normal 0.7-1.3 [facility] Comment on above: Order Comment: Order Date: 03/05/25Order Info: 0060-1 - PROEL Performed By: #### L 3100.3450, L100.0100 ####[facility] [address] [place], [address] GAMMA GLOBULIN 1.6 g/dL Normal 0.4-1.8 [facility] Comment on above: Order Comment: Order Date: 03/05/25Order Info: 0060-1 - PROEL Performed By: #### L 3100.3450, L100.0100 ####[facility] [address] [place], [address] Globulin (S) [Mass/Vol] 3.5 g/dL Normal 2.2-3.9 [facility] Comment on above: Order Comment: Order Date: 03/05/25Order Info: 0060-1 - PROEL Performed By: #### L 3100.3450, L100.0100 ####[facility] [address] [place], [address] INTERPRETATION Comment Normal . [facility] Comment on above: Order Comment: Order Date: 03/05/25Order Info: 0060-1 - PROEL Result Comment: Prot ein electrophoresis scan will follow via computer,mail, or outsoles channel opener delivery. Performed By: #### L 3100.3450, L100.0100 ####[facility] [address] [place], [address] M-SPIKE Not Observed Normal Not Observed [facility] Comment on above: Order Comment: Order Date: 03/05/25Order Info: 0060-1 - PROEL Performed By: #### L 3100.3450, L100.0100 ####[facility] [address] [place], [address] NOTE: Comment Normal . [facility] Comment on above: Order Comment: Order Date: 03/05/25Order Info: 0060-1 - PROEL Result Comment: The SPE pattern appears unremarkable. Evidence ofmonoclonal protein is not apparent.Performed at: [address] [id number] Director: Jair Lewis PhD, Phone: [phone] Performed By: #### L 3100.3450, L100.0100 ####[facility] [address] [place], [address] Protein [Mass/Vol] 6.8 g/dL Normal 6.0-8.5 [facility] Comment on above: Order Comment: Order Date: 03/05/25Order Info: 0060- - PROEL Performed By: #### L 3100.3450, L100.0100 ####[facility] [address] [place], [address] Albumin Elph [Mass/Vol]Order ed By: Anurag Dolan on 03-07-2025 Albumin [Mass/Vol] 3.3 g/dL 2.9-4.4 [facility] Basic Metabolic Profile (BMP )on 03-07-2025 BUN/CRE 7.7 RATIO Low 10-20 [facility] Comment on above: Order Comment: Order Date: 03/05/25Order Info: 0790-1 - RENAL Performed By: #### L 500.2500, L501.2300, L506.1001 ####[facility] [facility] [address] [place], [address] Calcium [Mass/Vol] 8.6 mg/dL Normal 7.6-11.0 [facility] Comment on above: Order Comment: Order Date: 03/05/25Order Info: 0790-1 - RENAL Performed By: #### L 500.2500, L501.2300, L506.1001 ####[facility] [address] [place], [address] Chloride [Moles/Vol] 101 mmol/L Normal 98-108 [facility] Comment on above: Order Comment: Order Date: 03/05/25Order Info: 0790-1 - RENAL Performed By: #### L 500.2500, L501.2300, L506.1001 ####[facility] [address] [place], [address] CO2 [Moles/Vol] 19.1 mmol/L Low 21.0-32.0 [facility] Comment on above: Order Comment: Order Date: 03/05/25Order Info: 0790-1 - RENAL Performed By: #### L 500.2500, L501.2300, L506.1001 ####[facility] [address] [place], [address] Creatinine [Mass/Vol] 5.72 mg/dL High 0.70-1.20 [facility] Comment on above: Order Comment: Order Date: 03/05/25Order Info: 0790-1 - RENAL Performed By: #### L 500.2500, L501.2300, L506.1001 ####[facility] [address] [place], [address] ECRCL 10.04 ml/min Low 50-250 [facility] Comment on above: Order Comment: Order Date: 03/05/25Order Info: 0790-1 - RENAL Performed By: #### L 500.2500, L501.2300, L506.1001 ####[facility] [address] [place], [address] GAP 12 Normal 5-15 [facility] Comment on above: Order Comment: Order Date: 03/05/25Order Info: 0790-1 - RENAL Performed By: #### L 500.2500, L501.2300, L506.1001 ####[facility] [address] [place], [address] GFR/1.73 sq M.predicted among non-blacks MDRD (S/P/Bld) [Vol rate/Area] 9 mL/min/{1.73_m2} Low >60 [facility] Comment on above: Order Comment: Order Date: 03/05/25Order Info: 0790-1 - RENAL Result Comment: mL/m in/1.73m2 CKD-EPI Creatinine Equation (2020) Performed By: #### L 500.2500, L501.2300, L506.1001 ####[facility] [address] [place], [address] Glucose [Mass/Vol] 112 mg/dL High 70-99 [facility] Comment on above: Order Comment: Order Date: 03/05/25Order Info: 0790-1 - RENAL Performed By: #### L 500.2500, L501.2300, L506.1001 ####[facility] [address] [place], [address] Potassium [Moles/Vol] 4.3 mmol/L Normal 3.3-5.1 [facility] Comment on above: Order Comment: Order Date: 03/05/25Order Info: 0790-1 - RENAL Performed By: #### L 500.2500, L501.2300, L506.1001 ####[facility] [address] [place], [address] Sodium [Moles/Vol] 132 mmol/L Low 133-145 [facility] Comment on above: Order Comment: Order Date: 03/05/25Order Info: 0790-1 - RENAL Performed By: #### L 500.2500, L501.2300, L506.1001 ####[facility] [address] [place], [address] Urea nitrogen [Mass/Vol] 44 mg/dL High 4-19 [facility] Comment on above: Order Comment: Order Date: 03/05/25Order Info: 0790-1 - RENAL Performed By: #### L 500.2500, L501.2300, L506.1001 ####[facility] [address] [place], [address] CBC W/Diff, Automatedon 04-0 9-2025 Absolute Lymph 1.40 X10 3/uL Normal 0.83-4.51 [facility] Comment on above: Order Comment: Order Date: 03/05/25Order Info: 0184-1 - CBCD Performed By: #### L 3100.3450, L100.0100 ####[facility] [address] [place], [address] Absolute Neut 5.1 X10 3/uL Normal 2.0-7.7 [facility] Comment on above: Order Comment: Order Date: 03/05/25Order Info: 0184-1 - CBCD Performed By: #### L 3100.3450, L100.0100 ####[facility] [address] [place], [address] Basophils/100 WBC (Bld) 0.4 % Normal 0-[address] [facility] Comment on above: Order Comment: Order Date: 03/05/25Order Info: 0184-1 - CBCD Performed By: #### L 3100.3450, L100.0100 ####[facility] [address] [place], [address] Eosinophils/100 WBC (Bld) 8.0 % High 0-5 [facility] Comment on above: Order Comment: Order Date: 03/05/25Order Info: 0184-1 - CBCD Performed By: #### L 3100.3450, L100.0100 ####[facility] [address] [place], [address] Erythrocyte distribution width (RBC) [Ratio] 12.3 % Normal 11.6-14.6 [facility] Comment on above: Order Comment: Order Date: 03/05/25Order Info: 0184-1 - CBCD Performed By: #### L 3100.3450, L100.0100 ####[facility] [address] [place], [address] Hematocrit (Bld) [Volume fraction] 29.3 % Low 40-54 [facility] Comment on above: Order Comment: Order Date: 03/05/25Order Info: 0184-1 - CBCD Performed By: #### L 3100.3450, L100.0100 ####[facility] [address] [place], [address] Hemoglobin (Bld) [Mass/Vol] 9.9 g/dL Low 13.0-16.5 [facility] Comment on above: Order Comment: Order Date: 03/05/25Order Info: 018- - CBCD Performed By: #### L 3100.3450, L100.0100 ####[facility] [address] [place], [address] IG% 0.200 Normal 0.0-0.9 [facility] Comment on above: Order Comment: Order Date: 03/05/25Order Info: 0184-1 - CBCD Result Comment: IG% - Immature Granulocytes (promyelocytes, myelocytes andmetamyelocytes) > 1% indicates that a LEFT SHIFT is Present. Performed By: #### L 3100.3450, L100.0100 ####[facility] [address] [place], [address] Lymphocytes/100 WBC (Bld) 17.5 % Low 19-41 [facility] Comment on above: Order Comment: Order Date: 03/05/25Order Info: 0184-1 - CBCD Performed By: #### L 3100.3450, L100.0100 ####[facility] [address] [place], [address] MCH (RBC) [Entitic mass] 32.1 pg High 27.0-32.0 [facility] Comment on above: Order Comment: Order Date: 03/05/25Order Info: 0184-1 - CBCD Performed By: #### L 3100.3450, L100.0100 ####[facility] [address] [place], [address] MCHC (RBC) [Mass/Vol] 33.8 g/dL Normal 32-36 [facility] Comment on above: Order Comment: Order Date: 03/05/25Order Info: 0184-1 - CBCD Performed By: #### L 3100.3450, L100.0100 ####[facility] [address] [place], [address] MCV (RBC) [Entitic vol] 95.1 fL High 80-94 [facility] Comment on above: Order Comment: Order Date: 03/05/25Order Info: 0184-1 - CBCD Performed By: #### L 3100.3450, L100.0100 ####[facility] [address] [place], [address] Monocytes/100 WBC (Bld) 10.2 % High 0-10 [facility] Comment on above: Order Comment: Order Date: 03/05/25Order Info: 0184-1 - CBCD Performed By: #### L 3100.3450, L100.0100 ####[facility] [address] [place], [address] Neutrophils/100 WBC (Bld) 63.7 % Normal 47-70 [facility] Comment on above: Order Comment: Order Date: 03/05/25Order Info: 0184-1 - CBCD Performed By: #### L 3100.3450, L100.0100 ####[facility] [address] [place], [address] Nucleated RBC (Bld) [#/Vol] 0 10*3/uL Normal 0-5 [facility] Comment on above: Order Comment: Order Date: 03/05/25Order Info: 0184-1 - CBCD Performed By: #### L 3100.3450, L100.0100 ####[facility] [address] [place], [address] Platelet mean volume (Bld) [Entitic vol] 9.0 fL Normal 6.2-12.0 [facility] Comment on above: Order Comment: Order Date: 03/05/25Order Info: 0184-1 - CBCD Performed By: #### L 3100.3450, L100.0100 ####[facility] [address] [place], [address] Platelets (Bld) [#/Vol] 261 10*3/uL Normal 150-450 [facility] Comment on above: Order Comment: Order Date: 03/05/25Order Info: 0184-1 - CBCD Performed By: #### L 3100.3450, L100.0100 ####[facility] [address] [place], [address] RBC (Bld) [#/Vol] 3.08 10*6/uL Low 4.6-6.2 [facility] Comment on above: Order Comment: Order Date: 03/05/25Order Info: 0184-1 - CBCD Performed By: #### L 3100.3450, L100.0100 ####[facility] [address] [place], [address] RDW SD 42.7 fl Normal 35.1-43.9 [facility] Comment on above: Order Comment: Order Date: 03/05/25Order Info: 0184-1 - CBCD Performed By: #### L 3100.3450, L100.0100 ####[facility] [address] [place], [address] WBC (Bld) [#/Vol] 8.0 10*3/uL Normal 4.4-11.0 [facility] Comment on above: Order Comment: Order Date: 03/05/25Order Info: 0184-1 - CBCD Performed By: #### L 3100.3450, L100.0100 ####[facility] [address] [place], [place], [id number] No Panel InformationOrdered By: Anurag Dolan on 03-07-2025 Addendum Document Comment . [facility] Comment on above: The SPE pattern appe ars unremarkable. Evidence ofmonoclonal protein is not apparent.Performed at: - [facility] [id number] Director: Jair Lewis PhD, Phone: [phone] Oncology Visit Reporton Oncology Visit Report Normal [facility] Phosphoruson 03-07-2025 Phosphate [Mass/Vol] 4.5 mg/dL Normal 2.7-4.5 [facility] Comment on above: Order Comment: Order Date: 03/05/25Order Info: 0790-1 - RENAL Performed By: #### L 500.2500, L501.2300, L506.1001 ####[facility] [address] [place], [place], [id number] Protein Fractions Elph [Inte rp]Ordered By: Anurag Dolan on 03-07-2025 Protein Fractions [Interp] Comment . [facility] Comment on above: Protein electrophore sis scan will follow via computer,mail, or outsoles channel opener delivery. Serum albumin to globulin ra abelardo by protein electrophoresisOrdered By: Anurag Dolan on 03-07-2025 Albumin/Globulin Elph [Mass ratio] 0.9 0.7-1.7 [facility] Serum globulin measurement ( mass/volume)Ordered By: Anurag Dolan on 03-07-2025 Globulin (S) [Mass/Vol] 3.5 g/dL 2.2-3.[address] [facility] Serum or plasma beta globuli n measurement by electrophoresis (mass/volume)Ordered By: Anurag Dolan on 03-07-2025 Beta globulin Elph [Mass/Vol] 0.9 g/dL 0.7-1.3 [facility] Serum or plasma protein arian urement (mass/volume)Ordered By: Anurag Dolan on 03-07-2025 Protein [Mass/Vol] 6.8 g/dL 6.0-8.5 [facility] Serum or plasma protein mono clonal measurement by electrophoresis (mass/volume)Ordered By: Anurag Dolan on 03-07-2025 Protein.monoclonal Elph [Mass/Vol] Not Observed g/dL Not Observed [facility] Vitamin D,25 Hydroxyon 03-07 Vitamin D 25-OH 49.9 ng/mL Normal 30-100 [facility] Comment on above: Order Comment: Order Date: 03/05/25Order Info: 0790-1 - RENAL Result Comment: Katrin min D StatusDeficiency: <20 ng/mL (50nmol/L)Insufficiency: 20-30 ng/mL (50-75 nmol/L)Sufficiency: 30-100 ng/mL (75-250 nmol/L)Toxicity: >100 ng/mL (>250 nmol/L) Performed By: #### L 500.2500, L501.2300, L506.1001 ####[facility] [address] [place], [address] Anion gap in Serum or Plasma Ordered By: Nilda Mcgarry on 02-28-2025 Anion gap [Moles/Vol] 12 mmol/L 5-15 [facility] BUN/creatinine ratioOrdered By: Nidla Mcgarry on 02-28-2025 Urea nitrogen/Creatinine [Mass ratio] 8.7 mg/mg Low 10-20 [facility] Basic Metabolic Profile (BMP )on 02-28-2025 BUN/CRE 8.7 RATIO Low 10-20 [facility] Comment on above: Performed By: #### L 100.1300, L500.2500 ####[facility] [address] [place], [address] Calcium [Mass/Vol] 9.2 mg/dL Normal 7.6-11.0 [facility] Comment on above: Performed By: #### L 100.1300, L500.2500 ####[facility] [address] [place], [address] Chloride [Moles/Vol] 105 mmol/L Normal 98-108 [facility] Comment on above: Performed By: #### L 100.1300, L500.2500 ####[facility] [address] [place], [address] CO2 [Moles/Vol] 19.4 mmol/L Low 21.0-32.0 [facility] Comment on above: Performed By: #### L 100.1300, L500.2500 ####[facility] [address] [place], [address] Creatinine [Mass/Vol] 3.86 mg/dL High 0.70-1.20 [facility] Comment on above: Performed By: #### L 100.1300, L500.2500 ####[facility] [address] [place], [address] GAP 12 Normal 5-15 [facility] Comment on above: Performed By: #### L 100.1300, L500.2500 ####[facility] [address] [place], [address] GFR/1.73 sq M.predicted among non-blacks MDRD (S/P/Bld) [Vol rate/Area] 15 mL/min/{1.73_m2} Low >60 [facility] Comment on above: Result Comment: mL/m in/1.73m2 CKD-EPI Creatinine Equation (2020) Performed By: #### L 100.1300, L500.2500 ####[facility] [address] [place], [address] Glucose [Mass/Vol] 98 mg/dL Normal 70-99 [facility] Comment on above: Performed By: #### L 100.1300, L500.2500 ####[facility] [address] [place], [address] Potassium [Moles/Vol] 4.1 mmol/L Normal 3.3-5.1 [facility] Comment on above: Performed By: #### L 100.1300, L500.2500 ####[facility] [address] [place], [address] Sodium [Moles/Vol] 137 mmol/L Normal 133-145 [facility] Comment on above: Performed By: #### L 100.1300, L500.2500 ####[facility] [address] [place], [address] Urea nitrogen [Mass/Vol] 34 mg/dL High 4-19 [facility] Comment on above: Performed By: #### L 100.1300, L500.2500 ####[facility] [address] [place], [address] Carbon dioxide, total [Moles /volume] in Central venous bloodOrdered By: Nilda Mcgarry on 02-28-2025 CO2 [Moles/Vol] 19.4 mmol/L Low 21.0-32.0 [facility] Chloride assayOrdered By: Rafa Mcgarry on 02-28-2025 Chloride [Moles/Vol] 105 mmol/L 98-108 [facility] GFR/1.73 sq M.predicted yue g non-blacks MDRD (S/P/Bld) [Vol rate/Area]Ordered By: Nilda Mcgarry on 02-28-2025 Estimated GFR (MDRD) Non-Af Amer 15 Low >60 [facility] Comment on above: mL/min/1.73m2 CKD-EP I Creatinine Equation (2020) Glomerular filtration rate ( GFR) estimation/1.73 sq m using serum, plasma, or whole bOrdered By: Nilda Mcgarry on 02-28-2025 GFR/1.73 sq M.predicted among non-blacks MDRD (S/P/Bld) [Vol rate/Area] 15 mL/min/{1.73_m2} Low >60 [facility] Comment on above: mL/min/1.73m2 CKD-EP I Creatinine Equation (2020) Hemoglobinon 02-28-2025 Hemoglobin (Bld) [Mass/Vol] 10.8 g/dL Low 13.0-16.5 [facility] Comment on above: Performed By: #### L 100.1300, L500.2500 ####[facility] [address] [place], [address] Hemoglobin measurementOrdere d By: Nilda Mcgarry on 02-28-2025 Hemoglobin (Bld) [Mass/Vol] 10.8 g/dL Low 13.0-16.5 [facility] Potassium (Unsp spec) [Mass/ Vol]Ordered By: Nilda Mcgarry on 02-28-2025 Potassium [Moles/Vol] 4.1 mmol/L 3.3-5.1 [facility] Potassium measurement (mass/ volume)Ordered By: Nilda Mcgarry on 02-28-2025 Potassium (Unsp spec) [Mass/Vol] 4.1 mmol/L 3.3-5.1 [facility] Serum creatinine measurement (mass/volume)Ordered By: Nilda Mcgarry on 02-28-2025 Creatinine [Mass/Vol] 3.86 mg/dL High 0.70-1.20 [facility] Serum glucose measurement (m ass/volume)Ordered By: Nilda Mcgarry on 02-28-2025 Glucose [Mass/Vol] 98 mg/dL 70-99 [facility] Serum or plasma calcium arian urement (mass/volume)Ordered By: Nilda Mcgarry on 02-28-2025 Calcium [Mass/Vol] 9.2 mg/dL 7.6-11.0 [facility] Serum or plasma urea nitroge n measurement (mass/volume)Ordered By: Nilda Mcgarry on 02-28-2025 Urea nitrogen [Mass/Vol] 34 mg/dL High 4-19 [facility] Sodium levelOrdered By: Mercedes Mcgarry on 02-28-2025 Sodium [Moles/Vol] 137 mmol/L 133-145 [facility] CBC W/Diff, Automatedon 01-28 Absolute Neut Normal 2.0-7.7 [facility] Comment on above: Result Comment: LABS WERE NOT NEEDED Performed By: #### L 500.4050, L100.0100 ####[facility] [address] [place], [address] HCT Normal 40-54 [facility] Comment on above: Result Comment: LABS WERE NOT NEEDED Performed By: #### L 500.4050, L100.0100 ####[facility] [address] [place], [address] HGB Normal 13.0-16.5 [facility] Comment on above: Result Comment: LABS WERE NOT NEEDED Performed By: #### L 500.4050, L100.0100 ####[facility] [address] [place], [address] MCH Normal 27.0-32.0 [facility] Comment on above: Result Comment: LABS WERE NOT NEEDED Performed By: #### L 500.4050, L100.0100 ####[facility] [address] [place], [address] MCHC Normal 32-36 [facility] Comment on above: Result Comment: LABS WERE NOT NEEDED Performed By: #### L 500.4050, L100.0100 ####[facility] [address] [place], [address] MCV Normal 80-94 [facility] Comment on above: Result Comment: LABS WERE NOT NEEDED Performed By: #### L 500.4050, L100.0100 ####[facility] [address] [place], [address] NEUT% Normal 47-70 [facility] Comment on above: Result Comment: LABS WERE NOT NEEDED Performed By: #### L 500.4050, L100.0100 ####[facility] [address] [place], [address] PLT Normal 150-450 [facility] Comment on above: Result Comment: LABS WERE NOT NEEDED Performed By: #### L 500.4050, L100.0100 ####[facility] [address] [place], [address] RBC Normal 4.6-6.2 [facility] Comment on above: Result Comment: LABS WERE NOT NEEDED Performed By: #### L 500.4050, L100.0100 ####[facility] [address] [place], [address] RDW CV Normal 11.6-14.6 [facility] Comment on above: Result Comment: LABS WERE NOT NEEDED Performed By: #### L 500.4050, L100.0100 ####[facility] [address] [place], [address] RDW SD Normal 35.1-43.9 [facility] Comment on above: Result Comment: LABS WERE NOT NEEDED Performed By: #### L 500.4050, L100.0100 ####[facility] [address] [place], [address] WBC Normal 4.4-11.0 [facility] Comment on above: Result Comment: LABS WERE NOT NEEDED Performed By: #### L 500.4050, L100.0100 ####[facility] [address] [place], [address] Comprehensive Metabolic Prof ilon 02-22-2025 ALB Normal 3.4-4.8 [facility] Comment on above: Result Comment: LABS WERE NOT NEEDED Performed By: #### L 500.4050, L100.0100 ####[facility] [address] [place], [address] ALK PHOS Normal 40-129 [facility] Comment on above: Result Comment: LABS WERE NOT NEEDED Performed By: #### L 500.4050, L100.0100 ####[facility] [address] [place], [address] ALT Normal <=46 [facility] Comment on above: Result Comment: LABS WERE NOT NEEDED Performed By: #### L 500.4050, L100.0100 ####[facility] [address] [place], [address] AST Normal <=37 [facility] Comment on above: Result Comment: LABS WERE NOT NEEDED Performed By: #### L 500.4050, L100.0100 ####[facility] [address] [place], [address] BUN Normal 4-19 [facility] Comment on above: Result Comment: LABS WERE NOT NEEDED Performed By: #### L 500.4050, L100.0100 ####[facility] [address] [place], [address] BUN/CRE Normal 10-20 [facility] Comment on above: Result Comment: LABS WERE NOT NEEDED Performed By: #### L 500.4050, L100.0100 ####[facility] [address] [place], [address] Calcium Normal 7.6-11.0 [facility] Comment on above: Result Comment: LABS WERE NOT NEEDED Performed By: #### L 500.4050, L100.0100 ####[facility] [address] [place], [address] CL Normal 98-108 [facility] Comment on above: Result Comment: LABS WERE NOT NEEDED Performed By: #### L 500.4050, L100.0100 ####[facility] [address] [place], [address] CO2 Normal 21.0-32.0 [facility] Comment on above: Result Comment: LABS WERE NOT NEEDED Performed By: #### L 500.4050, L100.0100 ####[facility] [address] [place], [address] CREAT,SERUM Normal 0.70-1.20 [facility] Comment on above: Result Comment: LABS WERE NOT NEEDED Performed By: #### L 500.4050, L100.0100 ####[facility] [address] [place], [address] eGFR Normal >60 [facility] Comment on above: Result Comment: LABS WERE NOT NEEDED Performed By: #### L 500.4050, L100.0100 ####[facility] [address] [place], [address] GAP Normal 5-15 [facility] Comment on above: Result Comment: LABS WERE NOT NEEDED Performed By: #### L 500.4050, L100.0100 ####[facility] [address] [place], [address] GLU Normal 70-99 [facility] Comment on above: Result Comment: LABS WERE NOT NEEDED Performed By: #### L 500.4050, L100.0100 ####[facility] [address] [place], [address] Potassium Normal 3.3-5.1 [facility] Comment on above: Result Comment: LABS WERE NOT NEEDED Performed By: #### L 500.4050, L100.0100 ####[facility] [address] [place], [address] T BILI Normal 0.00-1.30 [facility] Comment on above: Result Comment: LABS WERE NOT NEEDED Performed By: #### L 500.4050, L100.0100 ####[facility] [address] [place], [address] T PROT Normal 5.9-8.4 [facility] Comment on above: Result Comment: LABS WERE NOT NEEDED Performed By: #### L 500.4050, L100.0100 ####[facility] [address] [place], [address] Comprehensive Metabolic Profil Normal 133-145 [facility] Comment on above: Result Comment: LABS WERE NOT NEEDED Performed By: #### L 500.4050, L100.0100 ####[facility] [address] [place], [place], [id number] Anion gap in Serum or Plasma Ordered By: Brianna Souza on 02-20-2025 Anion gap [Moles/Vol] 9 mmol/L 5-15 [facility] BUN/creatinine ratioOrdered By: Brianna Souza on 02-20-2025 Urea nitrogen/Creatinine [Mass ratio] 11.7 mg/mg - [facility] Basic Metabolic Profile (BMP )on 02-20-2025 BUN/CRE 11.7 RATIO Normal - [facility] Comment on above: Performed By: #### L 500.2500 ####[facility] [address] [place], [place], [id number] Urea nitrogen [Mass/Vol] 35 mg/dL High - [facility] Comment on above: Performed By: #### L 500.2500 ####[facility] [address] [place], [place], [id number] Bilirubin Test strip Ql (U)O rdered By: Kena Heredia on 02-20-2025 Bilirubin Ql (U) Negative Negative [facility] Carbon dioxide, total [Moles /volume] in Central venous bloodOrdered By: Brianna Souza on 02-20-2025 CO2 [Moles/Vol] 21.8 mmol/L 21.0-32.0 [facility] Chloride assayOrdered By: Balta Souza on 02-20-2025 Chloride [Moles/Vol] 105 mmol/L 98-108 [facility] Epithelial cells.squamous LM Ql (Urine sed)Ordered By: Kena Heredia on 02-20-2025 Epithelial cells.squamous LM.HPF (Urine sed) [#/Area] 0 /[HPF] 0-5 [facility] Estimation of creatinine becky aranceOrdered By: Brianna Souza on 02-20-2025 Estimated Creatinine Clearance Calc 19.37 ml/min Low 50-250 [facility] GFR/1.73 sq M.predicted yue g non-blacks MDRD (S/P/Bld) [Vol rate/Area]Ordered By: Brianna Souza on 02-20-2025 Estimated GFR (MDRD) Non-Af Amer 20 Low >60 [facility] Comment on above: mL/min/1.73m2 CKD-EP I Creatinine Equation (2020) Glucose Ql (U)Ordered By: Jude Heredia on 02-20-2025 Urine Glucose (UA) Normal mg/dl Normal [facility] Ketones Test strip Ql (U)Ord ered By: Kena Heredia on 02-20-2025 Ketones Ql (U) Negative Negative [facility] Microscopic analysis of urin e for red blood cells (RBC)Ordered By: Kena Heredia on 02-20-2025 Microscopic analysis of urine for red blood cells (RBC) 0 SEEN /hpf 0-5 [facility] Urine RBC 0 SEEN /hpf 0-5 [facility] Mucus LM Ql (Urine sed)Order ed By: Kena Heredia on 02-20-2025 Mucus Ql (Urine sed) 0 SEEN /hpf [facility] Nitrite Test strip Ql (U)Ord ered By: Kena Heredia on 02-20-2025 Nitrite Ql (U) Negative Negative [facility] Potassium (Unsp spec) [Mass/ Vol]Ordered By: Brianna Souza on 02-20-2025 Potassium [Moles/Vol] 3.6 mmol/L 3.3-5.1 [facility] Protein Test strip Ql (U)Ord ered By: Kena Heredia on 02-20-2025 Protein Ql (U) 15 mg/dl High Negative [facility] Serum creatinine measurement (mass/volume)Ordered By: Brianna Souza on 02-20-2025 Creatinine [Mass/Vol] 2.99 mg/dL High 0.70-1.20 [facility] Serum glucose measurement (m ass/volume)Ordered By: Brianna Souza on 02-20-2025 Glucose [Mass/Vol] 121 mg/dL High 70-99 [facility] Serum or plasma calcium arian urement (mass/volume)Ordered By: Brianna Souza on 02-20-2025 Calcium [Mass/Vol] 8.6 mg/dL 7.6-11.0 [facility] Serum or plasma urea nitroge n measurement (mass/volume)Ordered By: Brianna Souza on 02-20-2025 Urea nitrogen [Mass/Vol] 35 mg/dL High 4-19 [facility] Sodium levelOrdered By: Donavan Souza on 02-20-2025 Sodium [Moles/Vol] 136 mmol/L 133-145 [facility] Squamous epithelial cells de tection in urine sediment by light microscopyOrdered By: Kena Heredia on 02-20-2025 Epithelial cells.squamous LM Ql (Urine sed) 0 SEEN /hpf 0-5 [facility] Urinalysis, Completeon 02-20 RBC 0 SEEN Normal 0-5 [facility] Comment on above: Order Comment: DRE CTOR TO SPECIFY Performed By: #### L 400.0001 ####[facility] [address] [place], [address] WBC 0-5 SEEN Normal 0-5 [facility] Comment on above: Order Comment: DRE CTOR TO SPECIFY Performed By: #### L 400.0001 ####[facility] [address] [place], [address] BACTERIA 0 SEEN Normal None Seen [facility] Comment on above: Order Comment: DRE CTOR TO SPECIFY Performed By: #### L 400.0001 ####[facility] [address] [place], [address] EPI,SQUAMOUS 0 SEEN Normal 0-5 [facility] Comment on above: Order Comment: DRE CTOR TO SPECIFY Performed By: #### L 400.0001 ####[facility] [address] [place], [address] Mucus Ql (Urine sed) 0 SEEN Normal [facility] Comment on above: Order Comment: DRE CTOR TO SPECIFY Performed By: #### L 400.0001 ####[facility] [address] [place], [place], [address] Urine blood detectionOrdered By: Kena Heredia on 02-20-2025 Urine Occult Blood Negative Negative [facility] Urine clarityOrdered By: Neel Heredia on 02-20-2025 Clarity (U) Clear Clear [facility] Urine color determinationOrd ered By: Kena Heredia on 02-20-2025 Color (U) Straw Yellow [facility] Urine glucose detectionOrder ed By: Kena Heredia on 02-20-2025 Glucose Ql (U) Normal mg/dl Normal [facility] Urine leukocyte esterase det ection by dipstickOrdered By: Kena Heredia on 02-20-2025 Leukocyte esterase Test strip Ql (U) 25 /ul High Negative [facility] Urine pHOrdered By: Kena ohng on 02-20-2025 pH (U) 6.0 [pH] 5.0 - 8.0 [facility] Urine sediment bacteria coun t by microscopy (number/high power field)Ordered By: Kena Heredia on 02-20-2025 Bacteria LM.HPF (Urine sed) [#/Area] 0 /[HPF] None Seen [facility] Urine specific gravity measu rementOrdered By: Kena Heredia on 02-20-2025 Specific gravity (U) [Rel density] 1.010 1.002-1.03 0 [facility] Urine urobilinogen measureme ntOrdered By: Kena Heredia on 02-20-2025 Urobilinogen Ql (U) Normal mg/dl Normal [facility] Urobilinogen Ql (U)Ordered B y: Kena Heredia on 02-20-2025 Urine Urobilinogen Normal mg/dl Normal [facility] White blood cell countOrdere d By: Kena Heredia on 02-20-2025 Urine WBC 0-5 SEEN /hpf 0-5 [facility] White blood cell count 0-5 SEEN /hpf 0-5 [facility] Absolute neutrophil countOrd ered By: Brianna Souza on 02-15-2025 Neutrophils (Bld) [#/Vol] 4.2 10*3/uL 2.0-7.7 [facility] Basophil percentageOrdered B y: Brianna Souza on 02-15-2025 Basophils/100 WBC (Bld) 0.9 % 0-[address] [facility] Bilirubin, totalOrdered By: Brianna Souza on 02-15-2025 Bilirubin [Mass/Vol] 0.33 mg/dL 0.00-1.30 [facility] CBC W/Diff, Automatedon 01-28 0-2024 Absolute Lymph 0.94 X10 3/uL Normal 0.83-4.51 [facility] Comment on above: Performed By: #### L 509.6001, L100.0100, L506.0400, L501.9520, L500.4050 ####[facility] [address] [place], [address] Absolute Neut 4.2 X10 3/uL Normal 2.0-7.7 [facility] Comment on above: Performed By: #### L 509.6001, L100.0100, L506.0400, L501.9520, L500.4050 ####[facility] [address] [place], [address] Basophils/100 WBC (Bld) 0.9 % Normal 0-[address] [facility] Comment on above: Performed By: #### L 509.6001, L100.0100, L506.0400, L501.9520, L500.4050 ####[facility] [address] [place], [address] Eosinophils/100 WBC (Bld) 18.9 % High 0-5 [facility] Comment on above: Performed By: #### L 509.6001, L100.0100, L506.0400, L501.9520, L500.4050 ####[facility] [address] [place], [address] Erythrocyte distribution width (RBC) [Ratio] 12.2 % Normal 11.6-14.6 [facility] Comment on above: Performed By: #### L 509.6001, L100.0100, L506.0400, L501.9520, L500.4050 ####[facility] [address] [place], [address] Hematocrit (Bld) [Volume fraction] 33.4 % Low 40-54 [facility] Comment on above: Performed By: #### L 509.6001, L100.0100, L506.0400, L501.9520, L500.4050 ####[facility] [address] [place], [address] Hemoglobin (Bld) [Mass/Vol] 11.5 g/dL Low 13.0-16.5 [facility] Comment on above: Performed By: #### L 509.6001, L100.0100, L506.0400, L501.9520, L500.4050 ####[facility] [address] [place], [address] IG% 0.400 Normal 0.0-0.9 [facility] Comment on above: Result Comment: IG% - Immature Granulocytes (promyelocytes, myelocytes andmetamyelocytes) > 1% indicates that a LEFT SHIFT is Present. Performed By: #### L 509.6001, L100.0100, L506.0400, L501.9520, L500.4050 ####[facility] [address] [place], [address] Lymphocytes/100 WBC (Bld) 13.4 % Low 19-41 [facility] Comment on above: Performed By: #### L 509.6001, L100.0100, L506.0400, L501.9520, L500.4050 ####[facility] [address] [place], [address] MCH (RBC) [Entitic mass] 32.8 pg High 27.0-32.0 [facility] Comment on above: Performed By: #### L 509.6001, L100.0100, L506.0400, L501.9520, L500.4050 ####[facility] [address] [place], [address] MCHC (RBC) [Mass/Vol] 34.4 g/dL Normal 32-36 [facility] Comment on above: Performed By: #### L 509.6001, L100.0100, L506.0400, L501.9520, L500.4050 ####[facility] [address] [place], [address] MCV (RBC) [Entitic vol] 95.2 fL High 80-[address] [facility] Comment on above: Performed By: #### L 509.6001, L100.0100, L506.0400, L501.9520, L500.4050 ####[facility] [address] [place], [address] Monocytes/100 WBC (Bld) 7.1 % Normal 0-10 [facility] Comment on above: Performed By: #### L 509.6001, L100.0100, L506.0400, L501.9520, L500.4050 ####[facility] [address] [place], [address] Neutrophils/100 WBC (Bld) 59.3 % Normal 47-70 [facility] Comment on above: Performed By: #### L 509.6001, L100.0100, L506.0400, L501.9520, L500.4050 ####[facility] [address] [place], [address] Nucleated RBC (Bld) [#/Vol] 0 10*3/uL Normal 0-5 [facility] Comment on above: Performed By: #### L 509.6001, L100.0100, L506.0400, L501.9520, L500.4050 ####[facility] [address] [place], [address] Platelet mean volume (Bld) [Entitic vol] 8.8 fL Normal 6.2-12.0 [facility] Comment on above: Performed By: #### L 509.6001, L100.0100, L506.0400, L501.9520, L500.4050 ####[facility] [address] [place], [address] Platelets (Bld) [#/Vol] 291 10*3/uL Normal 150-450 [facility] Comment on above: Performed By: #### L 509.6001, L100.0100, L506.0400, L501.9520, L500.4050 ####[facility] [address] [place], [address] RBC (Bld) [#/Vol] 3.51 10*6/uL Low 4.6-6.2 [facility] Comment on above: Performed By: #### L 509.6001, L100.0100, L506.0400, L501.9520, L500.4050 ####[facility] [address] [place], [address] RDW SD 42.3 fl Normal 35.1-43.9 [facility] Comment on above: Performed By: #### L 509.6001, L100.0100, L506.0400, L501.9520, L500.4050 ####[facility] [address] [place], [address] WBC (Bld) [#/Vol] 7.0 10*3/uL Normal 4.4-11.0 [facility] Comment on above: Performed By: #### L 509.6001, L100.0100, L506.0400, L501.9520, L500.4050 ####[facility] [address] [place], [address] Absolute Neut Normal 2.0-7.7 [facility] Comment on above: Result Comment: ON O THER ORDER Performed By: #### L 100.0100, L500.4050 ####[facility] [address] [place], [address] HCT Normal 40-54 [facility] Comment on above: Result Comment: ON O THER ORDER Performed By: #### L 100.0100, L500.4050 ####[facility] [address] [place], [address] HGB Normal 13.0-16.5 [facility] Comment on above: Result Comment: ON O THER ORDER Performed By: #### L 100.0100, L500.4050 ####[facility] [address] [place], [address] MCH Normal 27.0-32.0 [facility] Comment on above: Result Comment: ON O THER ORDER Performed By: #### L 100.0100, L500.4050 ####[facility] [address] [place], [address] MCHC Normal 32-36 [facility] Comment on above: Result Comment: ON O THER ORDER Performed By: #### L 100.0100, L500.4050 ####[facility] [address] [place], [address] MCV Normal 80-94 [facility] Comment on above: Result Comment: ON O THER ORDER Performed By: #### L 100.0100, L500.4050 ####[facility] [address] [place], [address] NEUT% Normal 47-70 [facility] Comment on above: Result Comment: ON O THER ORDER Performed By: #### L 100.0100, L500.4050 ####[facility] [address] [place], [address] PLT Normal 150-450 [facility] Comment on above: Result Comment: ON O THER ORDER Performed By: #### L 100.0100, L500.4050 ####[facility] [address] [place], [address] RBC Normal 4.6-6.2 [facility] Comment on above: Result Comment: ON O THER ORDER Performed By: #### L 100.0100, L500.4050 ####[facility] [address] [place], [address] RDW CV Normal 11.6-14.6 [facility] Comment on above: Result Comment: ON O THER ORDER Performed By: #### L 100.0100, L500.4050 ####[facility] [address] [place], [address] RDW SD Normal 35.1-43.9 [facility] Comment on above: Result Comment: ON O THER ORDER Performed By: #### L 100.0100, L500.4050 ####[facility] [address] [place], [address] WBC Normal 4.4-11.0 [facility] Comment on above: Result Comment: ON O THER ORDER Performed By: #### L 100.0100, L500.4050 ####[facility] [address] [place], [address] Comprehensive Metabolic Prof [facility] 02-15-2025 Albumin [Mass/Vol] 3.8 g/dL Normal 3.4-4.8 [facility] Comment on above: Performed By: #### L 509.6001, L100.0100, L506.0400, L501.9520, L500.4050 ####[facility] [address] [place], [address] Albumin/Globulin [Mass ratio] 1.1 {ratio} Normal 0.9-2.4 [facility] Comment on above: Performed By: #### L 509.6001, L100.0100, L506.0400, L501.9520, L500.4050 ####[facility] [address] [place], [address] ALK PHOS 99 U/L Normal 40-129 [facility] Comment on above: Performed By: #### L 509.6001, L100.0100, L506.0400, L501.9520, L500.4050 ####[facility] [address] [place], [address] ALT [Catalytic activity/Vol] U/L Normal <=46 [facility] Comment on above: Performed By: #### L 509.6001, L100.0100, L506.0400, L501.9520, L500.4050 ####[facility] [address] [place], [address] AST [Catalytic activity/Vol] 15 U/L Normal <=37 [facility] Comment on above: Performed By: #### L 509.6001, L100.0100, L506.0400, L501.9520, L500.4050 ####[facility] [address] [place], [address] Bilirubin [Mass/Vol] 0.33 mg/dL Normal 0.00-1.30 [facility] Comment on above: Performed By: #### L 509.6001, L100.0100, L506.0400, L501.9520, L500.4050 ####[facility] [address] [place], [address] BUN/CRE 9.5 RATIO Low 10-20 [facility] Comment on above: Performed By: #### L 509.6001, L100.0100, L506.0400, L501.9520, L500.4050 ####[facility] [address] [place], [address] Calcium [Mass/Vol] 9.0 mg/dL Normal 7.6-11.0 [facility] Comment on above: Performed By: #### L 509.6001, L100.0100, L506.0400, L501.9520, L500.4050 ####[facility] [address] [place], [address] Chloride [Moles/Vol] 105 mmol/L Normal 98-108 [facility] Comment on above: Performed By: #### L 509.6001, L100.0100, L506.0400, L501.9520, L500.4050 ####[facility] [address] [place], [address] CO2 [Moles/Vol] 21.9 mmol/L Normal 21.0-32.0 [facility] Comment on above: Performed By: #### L 509.6001, L100.0100, L506.0400, L501.9520, L500.4050 ####[facility] [address] [place], [address] Creatinine [Mass/Vol] 2.71 mg/dL High 0.70-1.20 [facility] Comment on above: Performed By: #### L 509.6001, L100.0100, L506.0400, L501.9520, L500.4050 ####[facility] [address] [place], [address] ECRCL 21.38 ml/min Low 50-250 [facility] Comment on above: Performed By: #### L 509.6001, L100.0100, L506.0400, L501.9520, L500.4050 ####[facility] [address] [place], [address] GAP 11 Normal 5-15 [facility] Comment on above: Performed By: #### L 509.6001, L100.0100, L506.0400, L501.9520, L500.4050 ####[facility] [address] [place], [address] GFR/1.73 sq M.predicted among non-blacks MDRD (S/P/Bld) [Vol rate/Area] 22 mL/min/{1.73_m2} Low >60 [facility] Comment on above: Result Comment: mL/m in/1.73m2 CKD-EPI Creatinine Equation (2020) Performed By: #### L 509.6001, L100.0100, L506.0400, L501.9520, L500.4050 ####[facility] [address] [place], [address] Globulin (S) [Mass/Vol] 3.4 g/dL Normal 2.2-4.2 [facility] Comment on above: Performed By: #### L 509.6001, L100.0100, L506.0400, L501.9520, L500.4050 ####[facility] [address] [place], [address] Glucose [Mass/Vol] 132 mg/dL High 70-99 [facility] Comment on above: Performed By: #### L 509.6001, L100.0100, L506.0400, L501.9520, L500.4050 ####[facility] [address] [place], [address] Potassium [Moles/Vol] 3.8 mmol/L Normal 3.3-5.1 [facility] Comment on above: Performed By: #### L 509.6001, L100.0100, L506.0400, L501.9520, L500.4050 ####[facility] [address] [place], [address] Sodium [Moles/Vol] 138 mmol/L Normal 133-145 [facility] Comment on above: Performed By: #### L 509.6001, L100.0100, L506.0400, L501.9520, L500.4050 ####[facility] [address] [place], [address] T PROT 7.2 g/dL Normal 5.9-8.4 [facility] Comment on above: Performed By: #### L 509.6001, L100.0100, L506.0400, L501.9520, L500.4050 ####[facility] [address] [place], [address] Urea nitrogen [Mass/Vol] 26 mg/dL High 4-19 [facility] Comment on above: Performed By: #### L 509.6001, L100.0100, L506.0400, L501.9520, L500.4050 ####[facility] [address] [place], [address] ALB Normal 3.4-4.8 [facility] Comment on above: Result Comment: ON O THER ORDER Performed By: #### L 100.0100, L500.4050 ####[facility] [address] [place], [address] ALK PHOS Normal 40-129 [facility] Comment on above: Result Comment: ON O THER ORDER Performed By: #### L 100.0100, L500.4050 ####[facility] [address] [place], [address] ALT Normal <=46 [facility] Comment on above: Result Comment: ON O THER ORDER Performed By: #### L 100.0100, L500.4050 ####[facility] [address] [place], [address] AST Normal <=37 [facility] Comment on above: Result Comment: ON O THER ORDER Performed By: #### L 100.0100, L500.4050 ####[facility] [address] [place], [address] BUN Normal 4-19 [facility] Comment on above: Result Comment: ON O THER ORDER Performed By: #### L 100.0100, L500.4050 ####[facility] [address] [place], [address] BUN/CRE Normal 10-20 [facility] Comment on above: Result Comment: ON O THER ORDER Performed By: #### L 100.0100, L500.4050 ####[facility] [address] [place], [address] Calcium Normal 7.6-11.0 [facility] Comment on above: Result Comment: ON O THER ORDER Performed By: #### L 100.0100, L500.4050 ####[facility] [address] [place], [address] CL Normal 98-108 [facility] Comment on above: Result Comment: ON O THER ORDER Performed By: #### L 100.0100, L500.4050 ####[facility] [address] [place], [address] CO2 Normal 21.0-32.0 [facility] Comment on above: Result Comment: ON O THER ORDER Performed By: #### L 100.0100, L500.4050 ####[facility] [address] [place], [address] CREAT,SERUM Normal 0.70-1.20 [facility] Comment on above: Result Comment: ON O THER ORDER Performed By: #### L 100.0100, L500.4050 ####[facility] [address] [place], [address] eGFR Normal >60 [facility] Comment on above: Result Comment: ON O THER ORDER Performed By: #### L 100.0100, L500.4050 ####[facility] [address] [place], [address] GAP Normal 5-15 [facility] Comment on above: Result Comment: ON O THER ORDER Performed By: #### L 100.0100, L500.4050 ####[facility] [address] [place], [address] GLU Normal 70-99 [facility] Comment on above: Result Comment: ON O THER ORDER Performed By: #### L 100.0100, L500.4050 ####[facility] [address] [place], [address] Potassium Normal 3.3-5.1 [facility] Comment on above: Result Comment: ON O THER ORDER Performed By: #### L 100.0100, L500.4050 ####[facility] [address] [place], [address] T BILI Normal 0.00-1.30 [facility] Comment on above: Result Comment: ON O THER ORDER Performed By: #### L 100.0100, L500.4050 ####[facility] [address] [place], [address] T PROT Normal 5.9-8.4 [facility] Comment on above: Result Comment: ON O THER ORDER Performed By: #### L 100.0100, L500.4050 ####[facility] [address] [place], [address] Comprehensive Metabolic Profil Normal 133-145 [facility] Comment on above: Result Comment: ON O THER ORDER Performed By: #### L 100.0100, L500.4050 ####[facility] [address] [place], [address] Eosinophil percentageOrdered By: Brianna Souza on 02-15-2025 Eosinophils/100 WBC (Bld) 18.9 % High 0-5 [facility] Erythrocyte distribution wid th (RBC) [Ratio][facility]: [facility] 02-[facility]-2025 Erythrocyte distribution width (RBC) [Entitic vol] 42.3 fL 35.1-43.9 [facility] Erythrocyte distribution wid th ratioOrdered By: [facility] on 02-15-2025 Erythrocyte distribution width (RBC) [Ratio] 12.2 % 11.6-14.6 [facility] Hematocrit Auto (Bld) [Volum e fraction]Ordered By: [facility] on 02-15-2025 Hematocrit (Bld) [Volume fraction] 33.4 % Low 40-54 [facility] Hemoglobin measurementOrdere d By: [facility] on 02-15-2025 Hemoglobin (Bld) [Mass/Vol] 11.5 g/dL Low 13.0-16.5 [facility] Immature granulocytes/100 WB C Auto (Bld)Ordered By: [facility] on 02-15-2025 Immature granulocytes/100 WBC (Bld) 0.400 % 0.0-0.9 [facility] Comment on above: IG% - Immature Granu locytes (promyelocytes, myelocytes and metamyelocytes) > 1% indicates that a LEFT SHIFT is Present. L509.6001on 02-15-2025 CORTISOL 9.37 ug/dL Normal 6.02-18.40 [facility] Comment on above: Performed By: #### L 509.6001, L100.0100, L506.0400, L501.9520, L500.4050 ####[facility] [address] [place], [address] Laboratory - Chemistry and C hemistry - challengeOrdered By: [facility] on 02-15-2025 AST [Catalytic activity/Vol] 15 U/L <38 [facility] Lymphocytes Auto (Unsp spec) [#/Vol]Ordered By: [facility] on 02-15-2025 Lymphocytes (Bld) [#/Vol] 0.94 10*3/uL 0.83-4.51 [facility] Lymphocytes/100 WBC Auto (Un sp spec)Ordered By: Brianna Souza on 02-15-2025 Lymphocytes/100 WBC (Bld) 13.4 % Low 19-41 [facility] MCV (mean corpuscular volume ) determinationOrdered By: Brianna Souza on 02-15-2025 MCV (RBC) [Entitic vol] 95.2 fL High 80-[address] [facility] Mean corpuscular hemoglobin (MCH) determinationOrdered By: Brianna Souza on 02-15-2025 MCH (RBC) [Entitic mass] 32.8 pg High 27.0-32.0 [facility] Mean corpuscular hemoglobin concentration (MCHC) determinationOrdered By: Brianna Souza on 02-15-2025 MCHC (RBC) [Mass/Vol] 34.4 g/dL 32-36 [facility] Mean platelet volume determi nationOrdered By: Brianna Souza on 02-15-2025 Platelet mean volume (Bld) [Entitic vol] 8.8 fL 6.2-12.0 [facility] Monocyte percentageOrdered B y: Brianna Souza on 02-15-2025 Monocytes/100 WBC (Bld) 7.1 % 0-[address] [facility] Neutrophil percentageOrdered By: Brianna Souza on 02-15-2025 Neutrophils/100 WBC (Bld) 59.3 % 47-70 [facility] No Panel InformationOrdered By: Brianna Souza on 02-15-2025 Cortisol AM Sample 9.37 ug/dL 6.02-18.40 [facility] Nucleated red blood cell per centageOrdered By: Brianna Souza on 02-15-2025 Nucleated RBC/100 WBC (Bld) [Ratio] 0 % 0-5 [facility] Oncology Visit Reporton 01-28 Oncology Visit Report Normal [facility] Platelet countOrdered By: Balta Souza on 02-15-2025 Platelets (Bld) [#/Vol] 291 10*3/uL 150-450 [facility] RBC Auto (Bld) [#/Vol]Ordere d By: Brianna Souza on 02-15-2025 RBC (Bld) [#/Vol] 3.51 10*6/uL Low 4.6-6.2 [facility] Serum globulin measurementOr dered By: Brianna Souza on 02-15-2025 Globulin (S) [Mass/Vol] 3.4 g/dL 2.2-4.2 [facility] Serum or plasma alanine oro otransferase (ALT) measurementOrdered By: Brianna Souza on 02-15-2025 ALT [Catalytic activity/Vol] U/L <47 [facility] Serum or plasma albumin arian urement (mass/volume)Ordered By: Brianna Souza on 02-15-2025 Albumin [Mass/Vol] 3.8 g/dL 3.4-4.8 [facility] Serum or plasma albumin/glob ulin mass ratioOrdered By: Brianna Souza on 02-15-2025 Albumin/Globulin [Mass ratio] 1.1 {ratio} 0.9-2.4 [facility] Serum or plasma alkaline leidy sphatase measurementOrdered By: Brianna Souza on 02-15-2025 ALP [Catalytic activity/Vol] 99 U/L 40-129 [facility] T4 Free Directon 02-15-2025 T4 FREE DIRECT 1.20 ng/dL Normal 0.76-1.46 [facility] Comment on above: Performed By: #### L 509.6001, L100.0100, L506.0400, L501.9520, L500.4050 ####[facility] [address] [place], [address] T4 freeOrdered By: Brianna carter on 02-15-2025 Free T4 [Mass/Vol] 1.20 ng/dL 0.76-1.46 [facility] TSH DL <= 0.005 mIU/L QnOrde red By: Brianna Souza on 02-15-2025 Thyroid Stimulating Hormone (TSH) 7.480 uIU/mL High 0.300-4.20 0 [facility] TSH Qn 7.480 uIU/mL High 0.300-4.20 0 [facility] Thyroid Stim Hormone (TSH)on 02-15-2025 TSH 7.480 uIU/mL High 0.300-4.20 0 [facility] Comment on above: Performed By: #### L 509.6001, L100.0100, L506.0400, L501.9520, L500.4050 ####[facility] [address] [place], [address] Total proteinOrdered By: Rohit Souza on 02-15-2025 Protein [Mass/Vol] 7.2 g/dL 5.9-8.4 [facility] White blood cell (WBC) count Ordered By: Brianna Peacockilia on 02-15-2025 WBC (Bld) [#/Vol] 7.0 10*3/uL 4.4-11.0 [facility] CBC W/Diff, Automatedon 2 Absolute Lymph 0.83 X10 3/uL Normal 0.83-4.51 [facility] Comment on above: Performed By: #### L 100.0100, L500.4050 ####[facility] [address] [place], [address] Absolute Neut 4.2 X10 3/uL Normal 2.0-7.7 [facility] Comment on above: Performed By: #### L 100.0100, L500.4050 ####[facility] [address] [place], [address] Basophils/100 WBC (Bld) 0.5 % Normal 0-[address] [facility] Comment on above: Performed By: #### L 100.0100, L500.4050 ####[facility] [address] [place], [address] Eosinophils/100 WBC (Bld) 8.0 % High 0-5 [facility] Comment on above: Performed By: #### L 100.0100, L500.4050 ####[facility] [address] [place], [address] Erythrocyte distribution width (RBC) [Ratio] 12.6 % Normal 11.6-14.6 [facility] Comment on above: Performed By: #### L 100.0100, L500.4050 ####[facility] [address] [place], [address] Hematocrit (Bld) [Volume fraction] 34.6 % Low 40-54 [facility] Comment on above: Performed By: #### L 100.0100, L500.4050 ####[facility] [address] [place], [address] Hemoglobin (Bld) [Mass/Vol] 11.9 g/dL Low 13.0-16.5 [facility] Comment on above: Performed By: #### L 100.0100, L500.4050 ####[facility] [address] [place], [address] IG% 0.300 Normal 0.0-0.9 [facility] Comment on above: Result Comment: IG% - Immature Granulocytes (promyelocytes, myelocytes andmetamyelocytes) > 1% indicates that a LEFT SHIFT is Present. Performed By: #### L 100.0100, L500.4050 ####[facility] [address] [place], [address] Lymphocytes/100 WBC (Bld) 13.8 % Low 19-41 [facility] Comment on above: Performed By: #### L 100.0100, L500.4050 ####[facility] [address] [place], [address] MCH (RBC) [Entitic mass] 32.9 pg High 27.0-32.0 [facility] Comment on above: Performed By: #### L 100.0100, L500.4050 ####[facility] [address] [place], [address] MCHC (RBC) [Mass/Vol] 34.4 g/dL Normal 32-36 [facility] Comment on above: Performed By: #### L 100.0100, L500.4050 ####[facility] [address] [place], [address] MCV (RBC) [Entitic vol] 95.6 fL High 80-[address] [facility] Comment on above: Performed By: #### L 100.0100, L500.4050 ####[facility] [address] [place], [address] Monocytes/100 WBC (Bld) 8.0 % Normal 0-10 [facility] Comment on above: Performed By: #### L 100.0100, L500.4050 ####[facility] [address] [place], [address] Neutrophils/100 WBC (Bld) 69.4 % Normal 47-70 [facility] Comment on above: Performed By: #### L 100.0100, L500.4050 ####[facility] [address] [place], [address] Nucleated RBC (Bld) [#/Vol] 0 10*3/uL Normal 0-5 [facility] Comment on above: Performed By: #### L 100.0100, L500.4050 ####[facility] [address] [place], [address] Platelet mean volume (Bld) [Entitic vol] 9.4 fL Normal 6.2-12.0 [facility] Comment on above: Performed By: #### L 100.0100, L500.4050 ####[facility] [address] [place], [address] Platelets (Bld) [#/Vol] 265 10*3/uL Normal 150-450 [facility] Comment on above: Performed By: #### L 100.0100, L500.4050 ####[facility] [address] [place], [address] RBC (Bld) [#/Vol] 3.62 10*6/uL Low 4.6-6.2 [facility] Comment on above: Performed By: #### L 100.0100, L500.4050 ####[facility] [address] [place], [address] RDW SD 44.1 fl High 35.1-43.9 [facility] Comment on above: Performed By: #### L 100.0100, L500.4050 ####[facility] [address] [place], [address] WBC (Bld) [#/Vol] 6.0 10*3/uL Normal 4.4-11.0 [facility] Comment on above: Performed By: #### L 100.0100, L500.4050 ####[facility] [address] [place], [address] Comprehensive Metabolic Prof [facility] 01-18-2025 Albumin [Mass/Vol] 3.3 g/dL Normal 3.2-5.0 [facility] Comment on above: Performed By: #### L 100.0100, L500.4050 ####[facility] [address] [place], [address] Albumin/Globulin [Mass ratio] 0.9 {ratio} Normal 0.9-2.4 [facility] Comment on above: Performed By: #### L 100.0100, L500.4050 ####[facility] [address] [place], [address] ALK P 96 U/L Normal 45-117 [facility] Comment on above: Performed By: #### L 100.0100, L500.4050 ####[facility] [address] [place], [address] ALT [Catalytic activity/Vol] 14 U/L Low 16-61 [facility] Comment on above: Performed By: #### L 100.0100, L500.4050 ####[facility] [address] [place], [address] AST [Catalytic activity/Vol] 13 U/L Low 15-37 [facility] Comment on above: Performed By: #### L 100.0100, L500.4050 ####[facility] [address] [place], [address] Bilirubin [Mass/Vol] 0.50 mg/dL Normal 0.20-1.00 [facility] Comment on above: Result Comment: For patients on eltrombopag therapy, use of Dimension [place] TBIL is not recommended. Performed By: #### L 100.0100, L500.4050 ####[facility] [address] [place], [address] BUN/CRE 10.7 RATIO Normal 10-20 [facility] Comment on above: Performed By: #### L 100.0100, L500.4050 ####[facility] [address] [place], [address] CA,Total 9.0 mg/dL Normal 8.5-10.1 [facility] Comment on above: Performed By: #### L 100.0100, L500.4050 ####[facility] [address] [place], [address] Chloride [Moles/Vol] 110 mmol/L High 98-107 [facility] Comment on above: Performed By: #### L 100.0100, L500.4050 ####[facility] [address] [place], [address] CO2 [Moles/Vol] 24.0 mmol/L Normal 21.0-32.0 [facility] Comment on above: Performed By: #### L 100.0100, L500.4050 ####[facility] [address] [place], [address] Creatinine [Mass/Vol] 1.97 mg/dL High 0.70-1.30 [facility] Comment on above: Result Comment: The validity of the calculated GFR GFRAA in patients over70 years has not been determined. Clinical correlation isessential. Performed By: #### L 100.0100, L500.4050 ####[facility] [address] [place], [address] ECRCL 29.81 ml/min Normal [facility] Comment on above: Performed By: #### L 100.0100, L500.4050 ####[facility] [address] [place], [address] EST GFR - AA 42 mL/min Low >60 [facility] Comment on above: Result Comment: Afri can [place] GFR Calc Performed By: #### L 100.0100, L500.4050 ####[facility] [address] [place], [address] GAP 8 Normal 5-15 [facility] Comment on above: Performed By: #### L 100.0100, L500.4050 ####[facility] [address] [place], [address] GFR/1.73 sq M.predicted among non-blacks MDRD (S/P/Bld) [Vol rate/Area] 35 mL/min/{1.73_m2} Low >60 [facility] Comment on above: Result Comment: Non- GFR Calc Performed By: #### L 100.0100, L500.4050 ####[facility] [address] [place], [address] Globulin (S) [Mass/Vol] 3.7 g/dL Normal 2.2-4.2 [facility] Comment on above: Performed By: #### L 100.0100, L500.4050 ####[facility] [address] [place], [address] Glucose [Mass/Vol] 136 mg/dL High 74-106 [facility] Comment on above: Result Comment: Fast ing Glucose result greater than or equal to 126 mg/dLsuggests DIABETES MELLITUS per A.D.A. criteria. Performed By: #### L 100.0100, L500.4050 ####[facility] [address] [place], [address] Potassium [Moles/Vol] 3.1 mmol/L Low 3.5-5.1 [facility] Comment on above: Performed By: #### L 100.0100, L500.4050 ####[facility] [address] [place], [address] Sodium [Moles/Vol] 141 mmol/L Normal 136-145 [facility] Comment on above: Performed By: #### L 100.0100, L500.4050 ####[facility] [address] [place], [address] T PROT 7.0 g/dL Normal 6.4-8.2 [facility] Comment on above: Performed By: #### L 100.0100, L500.4050 ####[facility] [address] [place], [address] Urea nitrogen [Mass/Vol] 21 mg/dL High 7-18 [facility] Comment on above: Performed By: #### L 100.0100, L500.4050 ####[facility] [address] [place], [address] Estimated glomerular filtrat ion rate (GFR) AmericanOrdered By: Brianna Souza on 01-18-2025 Estimated GFR (MDRD) Amer 42 mL/min Low >60 [facility] Comment on above: GFR Calc Oncology Visit Reporton 12-31 Oncology Visit Report Normal [facility] CT Chest, Abd, Pel w/Contras ton 01-11-2025 CT Chest, Abd, Pel w/Contrast Normal [facility] Bone Scan Whole Bodyon 01-08 Bone Scan Whole Body Normal [facility] CBC W/Diff, Automatedon 11-30 Absolute Lymph 1.71 X10 3/uL Normal 0.83-4.51 [facility] Comment on above: Performed By: #### L 100.0100, L500.4050 ####[facility] [address] [place], [address] Absolute Neut 3.5 X10 3/uL Normal 2.0-7.7 [facility] Comment on above: Performed By: #### L 100.0100, L500.4050 ####[facility] [address] [place], [address] Basophils/100 WBC (Bld) 0.8 % Normal 0-[address] [facility] Comment on above: Performed By: #### L 100.0100, L500.4050 ####[facility] [address] [place], [address] Eosinophils/100 WBC (Bld) 8.3 % High 0-5 [facility] [facility] Comment on above: Performed By: #### L 100.0100, L500.4050 ####[facility] [address] [place], [address] Erythrocyte distribution width (RBC) [Ratio] 12.7 % Normal 11.6-14.6 [facility] Comment on above: Performed By: #### L 100.0100, L500.4050 ####[facility] [address] [place], [address] Hematocrit (Bld) [Volume fraction] 36.4 % Low 40-54 [facility] Comment on above: Performed By: #### L 100.0100, L500.4050 ####[facility] [address] [place], [address] Hemoglobin (Bld) [Mass/Vol] 12.7 g/dL Low 13.0-16.5 [facility] Comment on above: Performed By: #### L 100.0100, L500.4050 ####[facility] [address] [place], [address] IG% 0.300 Normal 0.0-0.9 [facility] Comment on above: Result Comment: IG% - Immature Granulocytes (promyelocytes, myelocytes andmetamyelocytes) > 1% indicates that a LEFT SHIFT is Present. Performed By: #### L 100.0100, L500.4050 ####[facility] [address] [place], [address] Lymphocytes/100 WBC (Bld) 26.7 % Normal 19-41 [facility] Comment on above: Performed By: #### L 100.0100, L500.4050 ####[facility] [address] [place], [address] MCH (RBC) [Entitic mass] 32.9 pg High 27.0-32.0 [facility] Comment on above: Performed By: #### L 100.0100, L500.4050 ####[facility] [address] [place], [address] MCHC (RBC) [Mass/Vol] 34.9 g/dL Normal 32-36 [facility] Comment on above: Performed By: #### L 100.0100, L500.4050 ####[facility] [address] [place], [address] MCV (RBC) [Entitic vol] 94.3 fL High 80-94 [facility] Comment on above: Performed By: #### L 100.0100, L500.4050 ####[facility] [address] [place], [address] Monocytes/100 WBC (Bld) 9.5 % Normal 0-10 [facility] Comment on above: Performed By: #### L 100.0100, L500.4050 ####[facility] [address] [place], [address] Neutrophils/100 WBC (Bld) 54.4 % Normal 47-70 [facility] Comment on above: Performed By: #### L 100.0100, L500.4050 ####[facility] [address] [place], [address] Nucleated RBC (Bld) [#/Vol] 0 10*3/uL Normal 0-5 [facility] Comment on above: Performed By: #### L 100.0100, L500.4050 ####[facility] [address] [place], [address] Platelet mean volume (Bld) [Entitic vol] 9.3 fL Normal 6.2-12.0 [facility] Comment on above: Performed By: #### L 100.0100, L500.4050 ####[facility] [address] [place], [address] Platelets (Bld) [#/Vol] 272 10*3/uL Normal 150-450 [facility] Comment on above: Performed By: #### L 100.0100, L500.4050 ####[facility] [address] [place], [address] RBC (Bld) [#/Vol] 3.86 10*6/uL Low 4.6-6.2 [facility] Comment on above: Performed By: #### L 100.0100, L500.4050 ####[facility] [address] [place], [address] RDW SD 43.7 fl Normal 35.1-43.9 [facility] Comment on above: Performed By: #### L 100.0100, L500.4050 ####[facility] [address] [place], [address] WBC (Bld) [#/Vol] 6.4 10*3/uL Normal 4.4-11.0 [facility] Comment on above: Performed By: #### L 100.0100, L500.4050 ####[facility] [address] [place], [address] Cardiology Visit Reporton Cardiology Visit Report Normal [facility] Comprehensive Metabolic Prof ilon 12-21-2024 Albumin [Mass/Vol] 3.5 g/dL Normal 3.2-5.0 [facility] Comment on above: Performed By: #### L 100.0100, L500.4050 ####[facility] [address] [place], [address] Albumin/Globulin [Mass ratio] 0.9 {ratio} Normal 0.9-2.4 [facility] Comment on above: Performed By: #### L 100.0100, L500.4050 ####[facility] [address] [place], [address] ALK P 88 U/L Normal 45-117 [facility] Comment on above: Performed By: #### L 100.0100, L500.4050 ####[facility] [address] [place], [address] ALT [Catalytic activity/Vol] 15 U/L Low 16-61 [facility] Comment on above: Performed By: #### L 100.0100, L500.4050 ####[facility] [address] [place], [address] AST [Catalytic activity/Vol] 14 U/L Low 15-37 [facility] Comment on above: Performed By: #### L 100.0100, L500.4050 ####[facility] [address] [place], [address] Bilirubin [Mass/Vol] 0.50 mg/dL Normal 0.20-1.00 [facility] Comment on above: Result Comment: For patients on eltrombopag therapy, use of Dimension [place] TBIL is not recommended. Performed By: #### L 100.0100, L500.4050 ####[facility] [address] [place], [address] BUN/CRE 11.7 RATIO Normal 10-20 [facility] Comment on above: Performed By: #### L 100.0100, L500.4050 ####[facility] [address] [place], [address] CA,Total 9.3 mg/dL Normal 8.5-10.1 [facility] Comment on above: Performed By: #### L 100.0100, L500.4050 ####[facility] [address] [place], [address] Chloride [Moles/Vol] 108 mmol/L High 98-107 [facility] Comment on above: Performed By: #### L 100.0100, L500.4050 ####[facility] [address] [place], [address] CO2 [Moles/Vol] 27.0 mmol/L Normal 21.0-32.0 [facility] Comment on above: Performed By: #### L 100.0100, L500.4050 ####[facility] [address] [place], [address] Creatinine [Mass/Vol] 1.79 mg/dL High 0.70-1.30 [facility] Comment on above: Result Comment: The validity of the calculated GFR GFRAA in patients over70 years has not been determined. Clinical correlation isessential. Performed By: #### L 100.0100, L500.4050 ####[facility] [address] [place], [address] ECRCL 33.39 ml/min Normal [facility] Comment on above: Performed By: #### L 100.0100, L500.4050 ####[facility] [address] [place], [address] EST GFR - AA 47 mL/min Low >60 [facility] Comment on above: Result Comment: Afri can [place] GFR Calc Performed By: #### L 100.0100, L500.4050 ####[facility] [address] [place], [address] GAP 5 Normal 5-15 [facility] Comment on above: Performed By: #### L 100.0100, L500.4050 ####[facility] [address] [place], [address] GFR/1.73 sq M.predicted among non-blacks MDRD (S/P/Bld) [Vol rate/Area] 39 mL/min/{1.73_m2} Low >60 [facility] Comment on above: Result Comment: Non- GFR Calc Performed By: #### L 100.0100, L500.4050 ####[facility] [address] [place], [address] Globulin (S) [Mass/Vol] 3.8 g/dL Normal 2.2-4.2 [facility] Comment on above: Performed By: #### L 100.0100, L500.4050 ####[facility] [address] [place], [address] Glucose [Mass/Vol] 84 mg/dL Normal 74-106 [facility] Comment on above: Performed By: #### L 100.0100, L500.4050 ####[facility] [address] [place], [address] Potassium [Moles/Vol] 3.4 mmol/L Low 3.5-5.1 [facility] Comment on above: Performed By: #### L 100.0100, L500.4050 ####[facility] [address] [place], [address] Sodium [Moles/Vol] 140 mmol/L Normal 136-145 [facility] Comment on above: Performed By: #### L 100.0100, L500.4050 ####[facility] [address] [place], [address] T PROT 7.3 g/dL Normal 6.4-8.2 [facility] Comment on above: Performed By: #### L 100.0100, L500.4050 ####[facility] [address] [place], [address] Urea nitrogen [Mass/Vol] 21 mg/dL High 7-18 [facility] Comment on above: Performed By: #### L 100.0100, L500.4050 ####[facility] [address] [place], [address] Oncology Visit Reporton 11-30 Oncology Visit Report Normal [facility] CBC W/Diff, Automatedon 10-30 Absolute Lymph 1.24 X10 3/uL Normal 0.83-4.51 [facility] Comment on above: Performed By: #### L 500.4050, L100.0100 ####[facility] [address] [place], [address] Absolute Neut 2.6 X10 3/uL Normal 2.0-7.7 [facility] Comment on above: Performed By: #### L 500.4050, L100.0100 ####[facility] [address] [place], [address] Basophils/100 WBC (Bld) 0.8 % Normal 0-[address] [facility] Comment on above: Performed By: #### L 500.4050, L100.0100 ####[facility] [address] [place], [address] Eosinophils/100 WBC (Bld) 10.7 % High 0-5 [facility] Comment on above: Performed By: #### L 500.4050, L100.0100 ####[facility] [address] [place], [address] Erythrocyte distribution width (RBC) [Ratio] 13.2 % Normal 11.6-14.6 [facility] Comment on above: Performed By: #### L 500.4050, L100.0100 ####[facility] [address] [place], [address] Hematocrit (Bld) [Volume fraction] 35.4 % Low 40-54 [facility] Comment on above: Performed By: #### L 500.4050, L100.0100 ####[facility] [address] [place], [address] Hemoglobin (Bld) [Mass/Vol] 12.3 g/dL Low 13.0-16.5 [facility] Comment on above: Performed By: #### L 500.4050, L100.0100 ####[facility] [address] [place], [address] IG% 0.600 Normal 0.0-0.9 [facility] Comment on above: Result Comment: IG% - Immature Granulocytes (promyelocytes, myelocytes andmetamyelocytes) > 1% indicates that a LEFT SHIFT is Present. Performed By: #### L 500.4050, L100.0100 ####[facility] [address] [place], [address] Lymphocytes/100 WBC (Bld) 24.6 % Normal 19-41 [facility] Comment on above: Performed By: #### L 500.4050, L100.0100 ####[facility] [address] [place], [address] MCH (RBC) [Entitic mass] 32.9 pg High 27.0-32.0 [facility] Comment on above: Performed By: #### L 500.4050, L100.0100 ####[facility] [address] [place], [address] MCHC (RBC) [Mass/Vol] 34.7 g/dL Normal 32-36 [facility] Comment on above: Performed By: #### L 500.4050, L100.0100 ####[facility] [address] [place], [address] MCV (RBC) [Entitic vol] 94.7 fL High 80-[address] [facility] Comment on above: Performed By: #### L 500.4050, L100.0100 ####[facility] [address] [place], [address] Monocytes/100 WBC (Bld) 11.5 % High 0-[address] [facility] Comment on above: Performed By: #### L 500.4050, L100.0100 ####[facility] [address] [place], [address] Neutrophils/100 WBC (Bld) 51.8 % Normal 47-70 [facility] Comment on above: Performed By: #### L 500.4050, L100.0100 ####[facility] [address] [place], [address] Nucleated RBC (Bld) [#/Vol] 0 10*3/uL Normal 0-5 [facility] Comment on above: Performed By: #### L 500.4050, L100.0100 ####[facility] [address] [place], [address] Platelet mean volume (Bld) [Entitic vol] 9.3 fL Normal 6.2-12.0 [facility] Comment on above: Performed By: #### L 500.4050, L100.0100 ####[facility] [address] [place], [address] Platelets (Bld) [#/Vol] 244 10*3/uL Normal 150-450 [facility] Comment on above: Performed By: #### L 500.4050, L100.0100 ####[facility] [address] [place], [address] RBC (Bld) [#/Vol] 3.74 10*6/uL Low 4.6-6.2 [facility] Comment on above: Performed By: #### L 500.4050, L100.0100 ####[facility] [address] [place], [address] RDW SD 45.4 fl High 35.1-43.9 [facility] Comment on above: Performed By: #### L 500.4050, L100.0100 ####[facility] [address] [place], [address] WBC (Bld) [#/Vol] 5.1 10*3/uL Normal 4.4-11.0 [facility] Comment on above: Performed By: #### L 500.4050, L100.0100 ####[facility] [address] [place], [address] CORTISOL SERUMon 11-23-2024 CORTISOL 6.80 ug/dL Normal 3.44-22.45 [facility] Comment on above: Result Comment: Adul t (AM) 5.27 - 22.45 ug/dL Adult (PM) 3.44 - 16.76 ug/dL Performed By: #### L 509.6000, L501.9520, L506.0400 ####[facility] [address] [place], [address] Comprehensive Metabolic Prof ilon 11-23-2024 Albumin [Mass/Vol] 3.4 g/dL Normal 3.2-5.0 [facility] Comment on above: Performed By: #### L 500.4050, L100.0100 ####[facility] [address] [place], [address] Albumin/Globulin [Mass ratio] 1.0 {ratio} Normal 0.9-2.4 [facility] Comment on above: Performed By: #### L 500.4050, L100.0100 ####[facility] [address] [place], [address] ALK P 86 U/L Normal 45-117 [facility] Comment on above: Performed By: #### L 500.4050, L100.0100 ####[facility] [address] [place], [address] ALT [Catalytic activity/Vol] 17 U/L Normal 16-61 [facility] Comment on above: Performed By: #### L 500.4050, L100.0100 ####[facility] [address] [place], [address] AST [Catalytic activity/Vol] 14 U/L Low 15-37 [facility] Comment on above: Performed By: #### L 500.4050, L100.0100 ####[facility] [address] [place], [address] Bilirubin [Mass/Vol] 0.40 mg/dL Normal 0.20-1.00 [facility] Comment on above: Result Comment: For patients on eltrombopag therapy, use of Dimension [place] TBIL is not recommended. Performed By: #### L 500.4050, L100.0100 ####[facility] [address] [place], [address] BUN/CRE 14.1 RATIO Normal 10-20 [facility] Comment on above: Performed By: #### L 500.4050, L100.0100 ####[facility] [address] [place], [address] CA,Total 9.0 mg/dL Normal 8.5-10.1 [facility] Comment on above: Performed By: #### L 500.4050, L100.0100 ####[facility] [address] [place], [address] Chloride [Moles/Vol] 107 mmol/L Normal 98-107 [facility] Comment on above: Performed By: #### L 500.4050, L100.0100 ####[facility] [address] [place], [address] CO2 [Moles/Vol] 30.0 mmol/L Normal 21.0-32.0 [facility] Comment on above: Performed By: #### L 500.4050, L100.0100 ####[facility] [address] [place], [address] Creatinine [Mass/Vol] 1.49 mg/dL High 0.70-1.30 [facility] Comment on above: Result Comment: The validity of the calculated GFR GFRAA in patients over70 years has not been determined. Clinical correlation isessential. Performed By: #### L 500.4050, L100.0100 ####[facility] [address] [place], [address] ECRCL 40.49 ml/min Normal [facility] Comment on above: Performed By: #### L 500.4050, L100.0100 ####[facility] [address] [place], [address] EST GFR - AA 58 mL/min Low >60 [facility] Comment on above: Result Comment: Afri can [place] GFR Calc Performed By: #### L 500.4050, L100.0100 ####[facility] [address] [place], [address] GAP 3 Low 5-15 [facility] Comment on above: Performed By: #### L 500.4050, L100.0100 ####[facility] [address] [place], [address] GFR/1.73 sq M.predicted among non-blacks MDRD (S/P/Bld) [Vol rate/Area] 48 mL/min/{1.73_m2} Low >60 [facility] Comment on above: Result Comment: Non- GFR Calc Performed By: #### L 500.4050, L100.0100 ####[facility] [address] [place], [address] Globulin (S) [Mass/Vol] 3.5 g/dL Normal 2.2-4.[address] [facility] Comment on above: Performed By: #### L 500.4050, L100.0100 ####[facility] [address] [place], [address] Glucose [Mass/Vol] 117 mg/dL High 74-106 [facility] Comment on above: Result Comment: Fast ing Glucose result from 100 to 125 mg/dLsuggests IMPAIRED HOMEOSTASIS per A.D.A. criteria. Performed By: #### L 500.4050, L100.0100 ####[facility] [address] [place], [address] Potassium [Moles/Vol] 3.2 mmol/L Low 3.5-5.1 [facility] Comment on above: Performed By: #### L 500.4050, L100.0100 ####[facility] [address] [place], [address] Sodium [Moles/Vol] 139 mmol/L Normal 136-145 [facility] Comment on above: Performed By: #### L 500.4050, L100.0100 ####[facility] [address] [place], [address] T PROT 6.9 g/dL Normal 6.4-8.2 [facility] Comment on above: Performed By: #### L 500.4050, L100.0100 ####[facility] [address] [place], [address] Urea nitrogen [Mass/Vol] 21 mg/dL High 7-18 [facility] Comment on above: Performed By: #### L 500.4050, L100.0100 ####[facility] [address] [place], [address] Cortisol [Mass/Vol]Ordered B y: Brianna Souza on 11-23-2024 Cortisol 6.80 ug/dL 3.44-22.45 [facility] Comment on above: Adult (AM) 5.27 - 22 .45 ug/dL Adult (PM) 3.44 - 16.76 ug/dL Oncology Visit Reporton 10-30 Oncology Visit Report Normal [facility] Serum or plasma cortisol karon surement (mass/volume)Ordered By: Brianna Souza on 11-23-2024 Cortisol [Mass/Vol] 6.80 ug/dL 3.44-22.45 [facility] Comment on above: Adult (AM) 5.27 - 22 .45 ug/dL Adult (PM) 3.44 - 16.76 ug/dL T4 Free Directon 11-23-2024 T4 FREE DIRECT 0.97 ng/dL Normal 0.76-1.46 [facility] Comment on above: Performed By: #### L 509.6000, L501.9520, L506.0400 ####[facility] [address] [place], [address] Thyroid Stim Hormone (TSH)on 11-23-2024 TSH 9.840 uIU/mL High 0.358-3.74 0 [facility] Comment on above: Performed By: #### L 509.6000, L501.9520, L506.0400 ####[facility] [address] [place], [address] Orthopedic Visit Reporton Orthopedic Visit Report Normal [facility] CBC W/Diff, Automatedon 09-30 Absolute Lymph 1.21 X10 3/uL Normal 0.83-4.51 [facility] Comment on above: Performed By: #### L 501.5200, L501.2300, L100.0100, L509.6000, L500.4050 ####[facility] [address] [place], [address] Absolute Neut 2.7 X10 3/uL Normal 2.0-7.7 [facility] Comment on above: Performed By: #### L 501.5200, L501.2300, L100.0100, L509.6000, L500.4050 ####[facility] [address] [place], [address] Basophils/100 WBC (Bld) 0.8 % Normal 0-[address] [facility] Comment on above: Performed By: #### L 501.5200, L501.2300, L100.0100, L509.6000, L500.4050 ####[facility] [address] [place], [address] Eosinophils/100 WBC (Bld) 11.1 % High 0-5 [facility] Comment on above: Performed By: #### L 501.5200, L501.2300, L100.0100, L509.6000, L500.4050 ####[facility] [address] [place], [address] Erythrocyte distribution width (RBC) [Ratio] 13.0 % Normal 11.6-14.6 [facility] Comment on above: Performed By: #### L 501.5200, L501.2300, L100.0100, L509.6000, L500.4050 ####[facility] [address] [place], [address] Hematocrit (Bld) [Volume fraction] 35.0 % Low 40-54 [facility] Comment on above: Performed By: #### L 501.5200, L501.2300, L100.0100, L509.6000, L500.4050 ####[facility] [address] [place], [address] Hemoglobin (Bld) [Mass/Vol] 12.3 g/dL Low 13.0-16.5 [facility] Comment on above: Performed By: #### L 501.5200, L501.2300, L100.0100, L509.6000, L500.4050 ####[facility] [address] [place], [address] IG% 0.200 Normal 0.0-0.9 [facility] Comment on above: Result Comment: IG% - Immature Granulocytes (promyelocytes, myelocytes andmetamyelocytes) > 1% indicates that a LEFT SHIFT is Present. Performed By: #### L 501.5200, L501.2300, L100.0100, L509.6000, L500.4050 ####[facility] [address] [place], [address] Lymphocytes/100 WBC (Bld) 24.0 % Normal 19-41 [facility] Comment on above: Performed By: #### L 501.5200, L501.2300, L100.0100, L509.6000, L500.4050 ####[facility] [address] [place], [address] MCH (RBC) [Entitic mass] 32.5 pg High 27.0-32.0 [facility] Comment on above: Performed By: #### L 501.5200, L501.2300, L100.0100, L509.6000, L500.4050 ####[facility] [address] [place], [address] MCHC (RBC) [Mass/Vol] 35.1 g/dL Normal 32-36 [facility] Comment on above: Performed By: #### L 501.5200, L501.2300, L100.0100, L509.6000, L500.4050 ####[facility] [address] [place], [address] MCV (RBC) [Entitic vol] 92.6 fL Normal 80-[address] [facility] Comment on above: Performed By: #### L 501.5200, L501.2300, L100.0100, L509.6000, L500.4050 ####[facility] [address] [place], [address] Monocytes/100 WBC (Bld) 10.9 % High 0-[address] [facility] Comment on above: Performed By: #### L 501.5200, L501.2300, L100.0100, L509.6000, L500.4050 ####[facility] [address] [place], [address] Neutrophils/100 WBC (Bld) 53.0 % Normal 47-70 [facility] Comment on above: Performed By: #### L 501.5200, L501.2300, L100.0100, L509.6000, L500.4050 ####[facility] [address] [place], [address] Nucleated RBC (Bld) [#/Vol] 0 10*3/uL Normal 0-5 [facility] Comment on above: Performed By: #### L 501.5200, L501.2300, L100.0100, L509.6000, L500.4050 ####[facility] [address] [place], [address] Platelet mean volume (Bld) [Entitic vol] 9.2 fL Normal 6.2-12.0 [facility] Comment on above: Performed By: #### L 501.5200, L501.2300, L100.0100, L509.6000, L500.4050 ####[facility] [address] [place], [address] Platelets (Bld) [#/Vol] 246 10*3/uL Normal 150-450 [facility] Comment on above: Performed By: #### L 501.5200, L501.2300, L100.0100, L509.6000, L500.4050 ####[facility] [address] [place], [address] RBC (Bld) [#/Vol] 3.78 10*6/uL Low 4.6-6.2 [facility] Comment on above: Performed By: #### L 501.5200, L501.2300, L100.0100, L509.6000, L500.4050 ####[facility] [address] [place], [address] RDW SD 44.3 fl High 35.1-43.9 [facility] Comment on above: Performed By: #### L 501.5200, L501.2300, L100.0100, L509.6000, L500.4050 ####[facility] [address] [place], [address] WBC (Bld) [#/Vol] 5.1 10*3/uL Normal 4.4-11.0 [facility] Comment on above: Performed By: #### L 501.5200, L501.2300, L100.0100, L509.6000, L500.4050 ####[facility] [address] [place], [address] Absolute Neut Normal 2.0-7.7 [facility] Comment on above: Result Comment: DUPL ICATE TO INTERNAL ORDERS Performed By: #### L 100.0100, L500.4050 ####[facility] [address] [place], [address] HCT Normal 40-54 [facility] Comment on above: Result Comment: DUPL ICATE TO INTERNAL ORDERS Performed By: #### L 100.0100, L500.4050 ####[facility] [address] [place], [address] HGB Normal 13.0-16.5 [facility] Comment on above: Result Comment: DUPL ICATE TO INTERNAL ORDERS Performed By: #### L 100.0100, L500.4050 ####[facility] [address] [place], [address] MCH Normal 27.0-32.0 [facility] Comment on above: Result Comment: DUPL ICATE TO INTERNAL ORDERS Performed By: #### L 100.0100, L500.4050 ####[facility] [address] [place], [address] MCHC Normal 32-36 [facility] Comment on above: Result Comment: DUPL ICATE TO INTERNAL ORDERS Performed By: #### L 100.0100, L500.4050 ####[facility] [address] [place], [address] MCV Normal 80-94 [facility] Comment on above: Result Comment: DUPL ICATE TO INTERNAL ORDERS Performed By: #### L 100.0100, L500.4050 ####[facility] [address] [place], [address] NEUT% Normal 47-70 [facility] Comment on above: Result Comment: DUPL ICATE TO INTERNAL ORDERS Performed By: #### L 100.0100, L500.4050 ####[facility] [address] [place], [address] PLT Normal 150-450 [facility] Comment on above: Result Comment: DUPL ICATE TO INTERNAL ORDERS Performed By: #### L 100.0100, L500.4050 ####[facility] [address] [place], [address] RBC Normal 4.6-6.2 [facility] Comment on above: Result Comment: DUPL ICATE TO INTERNAL ORDERS Performed By: #### L 100.0100, L500.4050 ####[facility] [address] [place], [address] RDW CV Normal 11.6-14.6 [facility] Comment on above: Result Comment: DUPL ICATE TO INTERNAL ORDERS Performed By: #### L 100.0100, L500.4050 ####[facility] [address] [place], [address] RDW SD Normal 35.1-43.9 [facility] Comment on above: Result Comment: DUPL ICATE TO INTERNAL ORDERS Performed By: #### L 100.0100, L500.4050 ####[facility] [address] [place], [address] WBC Normal 4.4-11.0 [facility] Comment on above: Result Comment: DUPL ICATE TO INTERNAL ORDERS Performed By: #### L 100.0100, L500.4050 ####[facility] [address] [place], [address] CORTISOL SERUMon 10-25-2024 CORTISOL 9.30 ug/dL Normal 3.44-22.45 [facility] Comment on above: Result Comment: Adul t (AM) 5.27 - 22.45 ug/dL Adult (PM) 3.44 - 16.76 ug/dL Performed By: #### L 501.5200, L501.2300, L100.0100, L509.6000, L500.4050 ####[facility] [address] [place], [address] Comprehensive Metabolic Prof ilon 10-25-2024 Albumin [Mass/Vol] 3.5 g/dL Normal 3.2-5.0 [facility] Comment on above: Performed By: #### L 501.5200, L501.2300, L100.0100, L509.6000, L500.4050 ####[facility] [address] [place], [address] Albumin/Globulin [Mass ratio] 1.0 {ratio} Normal 0.9-2.4 [facility] Comment on above: Performed By: #### L 501.5200, L501.2300, L100.0100, L509.6000, L500.4050 ####[facility] [address] [place], [address] ALK P 86 U/L Normal 45-117 [facility] Comment on above: Performed By: #### L 501.5200, L501.2300, L100.0100, L509.6000, L500.4050 ####[facility] [address] [place], [address] ALT [Catalytic activity/Vol] 17 U/L Normal 16-61 [facility] Comment on above: Performed By: #### L 501.5200, L501.2300, L100.0100, L509.6000, L500.4050 ####[facility] [address] [place], [address] AST [Catalytic activity/Vol] 18 U/L Normal 15-37 [facility] Comment on above: Performed By: #### L 501.5200, L501.2300, L100.0100, L509.6000, L500.4050 ####[facility] [address] [place], [address] Bilirubin [Mass/Vol] 0.40 mg/dL Normal 0.20-1.00 [facility] Comment on above: Result Comment: For patients on eltrombopag therapy, use of Dimension [place] TBIL is not recommended. Performed By: #### L 501.5200, L501.2300, L100.0100, L509.6000, L500.4050 ####[facility] [address] [place], [address] BUN/CRE 14.4 RATIO Normal 10-20 [facility] Comment on above: Performed By: #### L 501.5200, L501.2300, L100.0100, L509.6000, L500.4050 ####[facility] [address] [place], [address] CA,Total 8.5 mg/dL Normal 8.5-10.1 [facility] Comment on above: Performed By: #### L 501.5200, L501.2300, L100.0100, L509.6000, L500.4050 ####[facility] [address] [place], [address] Chloride [Moles/Vol] 109 mmol/L High 98-107 [facility] Comment on above: Performed By: #### L 501.5200, L501.2300, L100.0100, L509.6000, L500.4050 ####[facility] [address] [place], [address] CO2 [Moles/Vol] 27.0 mmol/L Normal 21.0-32.0 [facility] Comment on above: Performed By: #### L 501.5200, L501.2300, L100.0100, L509.6000, L500.4050 ####[facility] [address] [place], [address] Creatinine [Mass/Vol] 1.46 mg/dL High 0.70-1.30 [facility] Comment on above: Result Comment: The validity of the calculated GFR GFRAA in patients over70 years has not been determined. Clinical correlation isessential. Performed By: #### L 501.5200, L501.2300, L100.0100, L509.6000, L500.4050 ####[facility] [address] [place], [address] ECRCL 41.12 ml/min Normal [facility] Comment on above: Performed By: #### L 501.5200, L501.2300, L100.0100, L509.6000, L500.4050 ####[facility] [address] [place], [address] EST GFR - AA 59 mL/min Low >60 [facility] Comment on above: Result Comment: Afri can [place] GFR Calc Performed By: #### L 501.5200, L501.2300, L100.0100, L509.6000, L500.4050 ####[facility] [address] [place], [address] GAP 4 Low 5-15 [facility] Comment on above: Performed By: #### L 501.5200, L501.2300, L100.0100, L509.6000, L500.4050 ####[facility] [address] [place], [address] GFR/1.73 sq M.predicted among non-blacks MDRD (S/P/Bld) [Vol rate/Area] 49 mL/min/{1.73_m2} Low >60 [facility] Comment on above: Result Comment: Non- GFR Calc Performed By: #### L 501.5200, L501.2300, L100.0100, L509.6000, L500.4050 ####[facility] [address] [place], [address] Globulin (S) [Mass/Vol] 3.5 g/dL Normal 2.2-4.[address] [facility] Comment on above: Performed By: #### L 501.5200, L501.2300, L100.0100, L509.6000, L500.4050 ####[facility] [address] [place], [address] Glucose [Mass/Vol] 94 mg/dL Normal 74-106 [facility] Comment on above: Performed By: #### L 501.5200, L501.2300, L100.0100, L509.6000, L500.4050 ####[facility] [address] [place], [address] Potassium [Moles/Vol] 3.1 mmol/L Low 3.5-5.1 [facility] Comment on above: Performed By: #### L 501.5200, L501.2300, L100.0100, L509.6000, L500.4050 ####[facility] [address] [place], [address] Sodium [Moles/Vol] 140 mmol/L Normal 136-145 [facility] Comment on above: Performed By: #### L 501.5200, L501.2300, L100.0100, L509.6000, L500.4050 ####[facility] [address] [place], [address] T PROT 7.0 g/dL Normal 6.4-8.2 [facility] Comment on above: Performed By: #### L 501.5200, L501.2300, L100.0100, L509.6000, L500.4050 ####[facility] [address] [place], [address] Urea nitrogen [Mass/Vol] 21 mg/dL High 7-18 [facility] Comment on above: Performed By: #### L 501.5200, L501.2300, L100.0100, L509.6000, L500.4050 ####[facility] [address] [place], [address] ALB Normal 3.2-5.0 [facility] Comment on above: Result Comment: DUPL ICATE TO INTERNAL ORDERS Performed By: #### L 100.0100, L500.4050 ####[facility] [address] [place], [address] ALK P Normal 45-117 [facility] Comment on above: Result Comment: DUPL ICATE TO INTERNAL ORDERS Performed By: #### L 100.0100, L500.4050 ####[facility] [address] [place], [address] ALT Normal 16-61 [facility] Comment on above: Result Comment: DUPL ICATE TO INTERNAL ORDERS Performed By: #### L 100.0100, L500.4050 ####[facility] [address] [place], [address] AST Normal 15-37 [facility] Comment on above: Result Comment: DUPL ICATE TO INTERNAL ORDERS Performed By: #### L 100.0100, L500.4050 ####[facility] [address] [place], [address] BUN Normal 7-18 [facility] Comment on above: Result Comment: DUPL ICATE TO INTERNAL ORDERS Performed By: #### L 100.0100, L500.4050 ####[facility] [address] [place], [address] BUN/CRE Normal 10-20 [facility] Comment on above: Result Comment: DUPL ICATE TO INTERNAL ORDERS Performed By: #### L 100.0100, L500.4050 ####[facility] [address] [place], [address] CA,Total Normal 8.5-10.1 [facility] Comment on above: Result Comment: DUPL ICATE TO INTERNAL ORDERS Performed By: #### L 100.0100, L500.4050 ####[facility] [address] [place], [address] CL Normal 98-107 [facility] Comment on above: Result Comment: DUPL ICATE TO INTERNAL ORDERS Performed By: #### L 100.0100, L500.4050 ####[facility] [address] [place], [address] CO2 Normal 21.0-32.0 [facility] Comment on above: Result Comment: DUPL ICATE TO INTERNAL ORDERS Performed By: #### L 100.0100, L500.4050 ####[facility] [address] [place], [address] CREAT,SERUM Normal 0.70-1.30 [facility] Comment on above: Result Comment: DUPL ICATE TO INTERNAL ORDERS Performed By: #### L 100.0100, L500.4050 ####[facility] [address] [place], [address] EST GFR Normal >60 [facility] Comment on above: Result Comment: DUPL ICATE TO INTERNAL ORDERS Performed By: #### L 100.0100, L500.4050 ####[facility] [address] [place], [address] EST GFR - AA Normal >60 [facility] Comment on above: Result Comment: DUPL ICATE TO INTERNAL ORDERS Performed By: #### L 100.0100, L500.4050 ####[facility] [address] [place], [address] GAP Normal 5-15 [facility] Comment on above: Result Comment: DUPL ICATE TO INTERNAL ORDERS Performed By: #### L 100.0100, L500.4050 ####[facility] [address] [place], [address] GLU Normal 74-106 [facility] Comment on above: Result Comment: DUPL ICATE TO INTERNAL ORDERS Performed By: #### L 100.0100, L500.4050 ####[facility] [address] [place], [address] Potassium Normal 3.5-5.1 [facility] Comment on above: Result Comment: DUPL ICATE TO INTERNAL ORDERS Performed By: #### L 100.0100, L500.4050 ####[facility] [address] [place], [address] T BILI Normal 0.20-1.00 [facility] Comment on above: Result Comment: DUPL ICATE TO INTERNAL ORDERS Performed By: #### L 100.0100, L500.4050 ####[facility] [address] [place], [address] T PROT Normal 6.4-8.2 [facility] Comment on above: Result Comment: DUPL ICATE TO INTERNAL ORDERS Performed By: #### L 100.0100, L500.4050 ####[facility] [address] [place], [address] Comprehensive Metabolic Profil Normal 136-145 [facility] Comment on above: Result Comment: DUPL ICATE TO INTERNAL ORDERS Performed By: #### L 100.0100, L500.4050 ####[facility] [address] [place], [address] Magnesiumon 10-25-2024 Magnesium [Mass/Vol] 2.2 mg/dL Normal 1.6-2.6 [facility] Comment on above: Performed By: #### L 501.5200, L501.2300, L100.0100, L509.6000, L500.4050 ####[facility] [address] [place], [address] Magnesium measurementOrdered By: Brianna Souza on 10-25-2024 Magnesium [Mass/Vol] 2.2 mg/dL 1.6-2.6 [facility] Oncology Visit Reporton 09-30 Oncology Visit Report Normal [facility] Phosphoruson 10-25-2024 Phosphate [Mass/Vol] 3.0 mg/dL Normal 2.5-4.9 [facility] Comment on above: Performed By: #### L 501.5200, L501.2300, L100.0100, L509.6000, L500.4050 ####[facility] [address] [place], [address] Phosphorus measurementOrdere d By: Brianna Souza on 10-25-2024 Phosphorus Level 3.0 mg/dL 2.5-4.9 [facility] CBC W/Diff, Automatedon 10-3 Absolute Lymph 1.35 X10 3/uL Normal 0.83-4.51 [facility] Comment on above: Performed By: #### L 100.0100, L500.4050 ####[facility] [address] [place], [address] Absolute Neut 2.4 X10 3/uL Normal 2.0-7.7 [facility] Comment on above: Performed By: #### L 100.0100, L500.4050 ####[facility] [address] [place], [address] Basophils/100 WBC (Bld) 0.8 % Normal 0-[address] [facility] Comment on above: Performed By: #### L 100.0100, L500.4050 ####[facility] [address] [place], [address] Eosinophils/100 WBC (Bld) 13.0 % High 0-5 [facility] Comment on above: Performed By: #### L 100.0100, L500.4050 ####[facility] [address] [place], [address] Erythrocyte distribution width (RBC) [Ratio] 12.9 % Normal 11.6-14.6 [facility] Comment on above: Performed By: #### L 100.0100, L500.4050 ####[facility] [address] [place], [address] Hematocrit (Bld) [Volume fraction] 34.8 % Low 40-54 [facility] Comment on above: Performed By: #### L 100.0100, L500.4050 ####[facility] [address] [place], [address] Hemoglobin (Bld) [Mass/Vol] 11.9 g/dL Low 13.0-16.5 [facility] Comment on above: Performed By: #### L 100.0100, L500.4050 ####[facility] [address] [place], [address] IG% 0.200 Normal 0.0-0.9 [facility] Comment on above: Result Comment: IG% - Immature Granulocytes (promyelocytes, myelocytes andmetamyelocytes) > 1% indicates that a LEFT SHIFT is Present. Performed By: #### L 100.0100, L500.4050 ####[facility] [address] [place], [address] Lymphocytes/100 WBC (Bld) 28.0 % Normal 19-41 [facility] Comment on above: Performed By: #### L 100.0100, L500.4050 ####[facility] [address] [place], [address] MCH (RBC) [Entitic mass] 32.4 pg High 27.0-32.0 [facility] Comment on above: Performed By: #### L 100.0100, L500.4050 ####[facility] [address] [place], [address] MCHC (RBC) [Mass/Vol] 34.2 g/dL Normal 32-36 [facility] Comment on above: Performed By: #### L 100.0100, L500.4050 ####[facility] [address] [place], [address] MCV (RBC) [Entitic vol] 94.8 fL High 80-[address] [facility] Comment on above: Performed By: #### L 100.0100, L500.4050 ####[facility] [address] [place], [address] Monocytes/100 WBC (Bld) 8.7 % Normal 0-10 [facility] Comment on above: Performed By: #### L 100.0100, L500.4050 ####[facility] [address] [place], [address] Neutrophils/100 WBC (Bld) 49.3 % Normal 47-70 [facility] Comment on above: Performed By: #### L 100.0100, L500.4050 ####[facility] [address] [place], [address] Nucleated RBC (Bld) [#/Vol] 0 10*3/uL Normal 0-5 [facility] Comment on above: Performed By: #### L 100.0100, L500.4050 ####[facility] [address] [place], [address] Platelet mean volume (Bld) [Entitic vol] 9.1 fL Normal 6.2-12.0 [facility] Comment on above: Performed By: #### L 100.0100, L500.4050 ####[facility] [address] [place], [address] Platelets (Bld) [#/Vol] 217 10*3/uL Normal 150-450 [facility] Comment on above: Performed By: #### L 100.0100, L500.4050 ####[facility] [address] [place], [address] RBC (Bld) [#/Vol] 3.67 10*6/uL Low 4.6-6.2 [facility] Comment on above: Performed By: #### L 100.0100, L500.4050 ####[facility] [address] [place], [address] RDW SD 44.6 fl High 35.1-43.9 [facility] Comment on above: Performed By: #### L 100.0100, L500.4050 ####[facility] [address] [place], [address] WBC (Bld) [#/Vol] 4.8 10*3/uL Normal 4.4-11.0 [facility] Comment on above: Performed By: #### L 100.0100, L500.4050 ####[facility] [address] [place], [address] Comprehensive Metabolic Prof [facility] 09-28-2024 Albumin [Mass/Vol] 3.2 g/dL Normal 3.2-5.0 [facility] Comment on above: Performed By: #### L 100.0100, L500.4050 ####[facility] [address] [place], [address] Albumin/Globulin [Mass ratio] 1.0 {ratio} Normal 0.9-2.4 [facility] Comment on above: Performed By: #### L 100.0100, L500.4050 ####[facility] [address] [place], [address] ALK P 78 U/L Normal 45-117 [facility] Comment on above: Performed By: #### L 100.0100, L500.4050 ####[facility] [address] [place], [address] ALT [Catalytic activity/Vol] 20 U/L Normal 16-61 [facility] Comment on above: Performed By: #### L 100.0100, L500.4050 ####[facility] [address] [place], [address] AST [Catalytic activity/Vol] 16 U/L Normal 15-37 [facility] Comment on above: Performed By: #### L 100.0100, L500.4050 ####[facility] [address] [place], [address] Bilirubin [Mass/Vol] 0.50 mg/dL Normal 0.20-1.00 [facility] Comment on above: Result Comment: For patients on eltrombopag therapy, use of Dimension [place] TBIL is not recommended. Performed By: #### L 100.0100, L500.4050 ####[facility] [address] [place], [address] BUN/CRE 16.8 RATIO Normal 10-20 [facility] Comment on above: Performed By: #### L 100.0100, L500.4050 ####[facility] [address] [place], [address] CA,Total 8.5 mg/dL Normal 8.5-10.1 [facility] Comment on above: Performed By: #### L 100.0100, L500.4050 ####[facility] [address] [place], [address] Chloride [Moles/Vol] 108 mmol/L High 98-107 [facility] Comment on above: Performed By: #### L 100.0100, L500.4050 ####[facility] [address] [place], [address] CO2 [Moles/Vol] 25.0 mmol/L Normal 21.0-32.0 [facility] Comment on above: Performed By: #### L 100.0100, L500.4050 ####[facility] [address] [place], [address] Creatinine [Mass/Vol] 1.37 mg/dL High 0.70-1.30 [facility] Comment on above: Result Comment: The validity of the calculated GFR GFRAA in patients over70 years has not been determined. Clinical correlation isessential. Performed By: #### L 100.0100, L500.4050 ####[facility] [address] [place], [address] ECRCL 43.30 ml/min Normal [facility] Comment on above: Performed By: #### L 100.0100, L500.4050 ####[facility] [address] [place], [address] EST GFR - AA 64 mL/min Normal >60 [facility] Comment on above: Result Comment: Afri can [place] GFR Calc Performed By: #### L 100.0100, L500.4050 ####[facility] [address] [place], [address] GAP 6 Normal 5-15 [facility] Comment on above: Performed By: #### L 100.0100, L500.4050 ####[facility] [address] [place], [address] GFR/1.73 sq M.predicted among non-blacks MDRD (S/P/Bld) [Vol rate/Area] 53 mL/min/{1.73_m2} Low >60 [facility] Comment on above: Result Comment: Non- GFR Calc Performed By: #### L 100.0100, L500.4050 ####[facility] [address] [place], [address] Globulin (S) [Mass/Vol] 3.1 g/dL Normal 2.2-4.[address] [facility] Comment on above: Performed By: #### L 100.0100, L500.4050 ####[facility] [address] [place], [address] Glucose [Mass/Vol] 120 mg/dL High 74-106 [facility] Comment on above: Result Comment: Fast ing Glucose result from 100 to 125 mg/dLsuggests IMPAIRED HOMEOSTASIS per A.D.A. criteria. Performed By: #### L 100.0100, L500.4050 ####[facility] [address] [place], [address] Potassium [Moles/Vol] 3.3 mmol/L Low 3.5-5.1 [facility] Comment on above: Performed By: #### L 100.0100, L500.4050 ####[facility] [address] [place], [address] Sodium [Moles/Vol] 139 mmol/L Normal 136-145 [facility] Comment on above: Performed By: #### L 100.0100, L500.4050 ####[facility] [address] [place], [address] T PROT 6.3 g/dL Low 6.4-8.2 [facility] Comment on above: Performed By: #### L 100.0100, L500.4050 ####[facility] [address] [place], [address] Urea nitrogen [Mass/Vol] 23 mg/dL High 7-18 [facility] Comment on above: Performed By: #### L 100.0100, L500.4050 ####[facility] [address] [place], [address] Oncology Visit Reporton 08-31 Oncology Visit Report Normal [facility] PSA,Total- Diagnosticon 08-29 PSA, DIAGNOSTIC 4.30 ng/mL High 0.0-4.0 [facility] Comment on above: Result Comment: This test was performed using the TPSA assay method for the[facility]. Values obtained with differentassay methods cannot be used interchangably.When changing PSA assays in the course of monitoring apatient, additional sequential testing should be carriedout to confirm baseline values. Performed By: #### L 501.9972 ####[facility] [address] [place], [address] Bone Scan Whole Bodyon 09-05 Bone Scan Whole Body Normal [facility] CBC W/Diff, Automatedon 10- Absolute Lymph 1.22 X10 3/uL Normal 0.83-4.51 [facility] Comment on above: Performed By: #### L 100.0100, L500.4050 ####[facility] [address] [place], [address] Absolute Neut 3.2 X10 3/uL Normal 2.0-7.7 [facility] Comment on above: Performed By: #### L 100.0100, L500.4050 ####[facility] [address] [place], [address] Basophils/100 WBC (Bld) 0.8 % Normal 0-[address] [facility] Comment on above: Performed By: #### L 100.0100, L500.4050 ####[facility] [address] [place], [address] Eosinophils/100 WBC (Bld) 5.1 % High 0-5 [facility] Comment on above: Performed By: #### L 100.0100, L500.4050 ####[facility] [address] [place], [address] Erythrocyte distribution width (RBC) [Ratio] 12.7 % Normal 11.6-14.6 [facility] Comment on above: Performed By: #### L 100.0100, L500.4050 ####[facility] [address] [place], [address] Hematocrit (Bld) [Volume fraction] 37.1 % Low 40-54 [facility] Comment on above: Performed By: #### L 100.0100, L500.4050 ####[facility] [address] [place], [address] Hemoglobin (Bld) [Mass/Vol] 12.7 g/dL Low 13.0-16.5 [facility] Comment on above: Performed By: #### L 100.0100, L500.4050 ####[facility] [address] [place], [address] IG% 0.400 Normal 0.0-0.9 [facility] Comment on above: Result Comment: IG% - Immature Granulocytes (promyelocytes, myelocytes andmetamyelocytes) > 1% indicates that a LEFT SHIFT is Present. Performed By: #### L 100.0100, L500.4050 ####[facility] [address] [place], [address] Lymphocytes/100 WBC (Bld) 23.1 % Normal 19-41 [facility] Comment on above: Performed By: #### L 100.0100, L500.4050 ####[facility] [address] [place], [address] MCH (RBC) [Entitic mass] 31.8 pg Normal 27.0-32.0 [facility] Comment on above: Performed By: #### L 100.0100, L500.4050 ####[facility] [address] [place], [address] MCHC (RBC) [Mass/Vol] 34.2 g/dL Normal 32-36 [facility] Comment on above: Performed By: #### L 100.0100, L500.4050 ####[facility] [address] [place], [address] MCV (RBC) [Entitic vol] 93.0 fL Normal 80-[address] [facility] Comment on above: Performed By: #### L 100.0100, L500.4050 ####[facility] [address] [place], [address] Monocytes/100 WBC (Bld) 10.8 % High 0-[address] [facility] Comment on above: Performed By: #### L 100.0100, L500.4050 ####[facility] [address] [place], [address] Neutrophils/100 WBC (Bld) 59.8 % Normal 47-70 [facility] Comment on above: Performed By: #### L 100.0100, L500.4050 ####[facility] [address] [place], [address] Nucleated RBC (Bld) [#/Vol] 0 10*3/uL Normal 0-5 [facility] Comment on above: Performed By: #### L 100.0100, L500.4050 ####[facility] [address] [place], [address] Platelet mean volume (Bld) [Entitic vol] 9.2 fL Normal 6.2-12.0 [facility] Comment on above: Performed By: #### L 100.0100, L500.4050 ####[facility] [address] [place], [address] Platelets (Bld) [#/Vol] 216 10*3/uL Normal 150-450 [facility] Comment on above: Performed By: #### L 100.0100, L500.4050 ####[facility] [address] [place], [address] RBC (Bld) [#/Vol] 3.99 10*6/uL Low 4.6-6.2 [facility] Comment on above: Performed By: #### L 100.0100, L500.4050 ####[facility] [address] [place], [address] RDW SD 43.2 fl Normal 35.1-43.9 [facility] Comment on above: Performed By: #### L 100.0100, L500.4050 ####[facility] [address] [place], [address] WBC (Bld) [#/Vol] 5.3 10*3/uL Normal 4.4-11.0 [facility] Comment on above: Performed By: #### L 100.0100, L500.4050 ####[facility] [address] [place], [address] Comprehensive Metabolic Prof ilon 08-31-2024 Albumin [Mass/Vol] 3.5 g/dL Normal 3.2-5.0 [facility] Comment on above: Performed By: #### L 100.0100, L500.4050 ####[facility] [address] [place], [address] Albumin/Globulin [Mass ratio] 1.0 {ratio} Normal 0.9-2.4 [facility] Comment on above: Performed By: #### L 100.0100, L500.4050 ####[facility] [address] [place], [address] ALK P 85 U/L Normal 45-117 [facility] Comment on above: Performed By: #### L 100.0100, L500.4050 ####[facility] [address] [place], [address] ALT [Catalytic activity/Vol] 18 U/L Normal 16-61 [facility] Comment on above: Performed By: #### L 100.0100, L500.4050 ####[facility] [address] [place], [address] AST [Catalytic activity/Vol] 17 U/L Normal 15-37 [facility] Comment on above: Performed By: #### L 100.0100, L500.4050 ####[facility] [address] [place], [address] Bilirubin [Mass/Vol] 0.50 mg/dL Normal 0.20-1.00 [facility] Comment on above: Result Comment: For patients on eltrombopag therapy, use of Dimension [place] TBIL is not recommended. Performed By: #### L 100.0100, L500.4050 ####[facility] [address] [place], [address] BUN/CRE 13.2 RATIO Normal 10-20 [facility] Comment on above: Performed By: #### L 100.0100, L500.4050 ####[facility] [address] [place], [address] CA,Total 9.1 mg/dL Normal 8.5-10.1 [facility] Comment on above: Performed By: #### L 100.0100, L500.4050 ####[facility] [address] [place], [address] Chloride [Moles/Vol] 107 mmol/L Normal 98-107 [facility] Comment on above: Performed By: #### L 100.0100, L500.4050 ####[facility] [address] [place], [address] CO2 [Moles/Vol] 26.0 mmol/L Normal 21.0-32.0 [facility] Comment on above: Performed By: #### L 100.0100, L500.4050 ####[facility] [address] [place], [address] Creatinine [Mass/Vol] 1.29 mg/dL Normal 0.70-1.30 [facility] Comment on above: Result Comment: The validity of the calculated GFR GFRAA in patients over70 years has not been determined. Clinical correlation isessential. Performed By: #### L 100.0100, L500.4050 ####[facility] [address] [place], [address] ECRCL 47.23 ml/min Normal [facility] Comment on above: Performed By: #### L 100.0100, L500.4050 ####[facility] [address] [place], [address] EST GFR - AA 68 mL/min Normal >60 [facility] Comment on above: Result Comment: Afri can [place] GFR Calc Performed By: #### L 100.0100, L500.4050 ####[facility] [address] [place], [address] GAP 5 Normal 5-15 [facility] Comment on above: Performed By: #### L 100.0100, L500.4050 ####[facility] [address] [place], [address] GFR/1.73 sq M.predicted among non-blacks MDRD (S/P/Bld) [Vol rate/Area] 56 mL/min/{1.73_m2} Low >60 [facility] Comment on above: Result Comment: Non- GFR Calc Performed By: #### L 100.0100, L500.4050 ####[facility] [address] [place], [address] Globulin (S) [Mass/Vol] 3.5 g/dL Normal 2.2-4.[address] [facility] Comment on above: Performed By: #### L 100.0100, L500.4050 ####[facility] [address] [place], [address] Glucose [Mass/Vol] 107 mg/dL High 74-106 [facility] Comment on above: Result Comment: Fast ing Glucose result from 100 to 125 mg/dLsuggests IMPAIRED HOMEOSTASIS per A.D.A. criteria. Performed By: #### L 100.0100, L500.4050 ####[facility] [address] [place], [address] Potassium [Moles/Vol] 3.4 mmol/L Low 3.5-5.1 [facility] Comment on above: Performed By: #### L 100.0100, L500.4050 ####[facility] [address] [place], [address] Sodium [Moles/Vol] 138 mmol/L Normal 136-145 [facility] Comment on above: Performed By: #### L 100.0100, L500.4050 ####[facility] [address] [place], [address] T PROT 7.0 g/dL Normal 6.4-8.2 [facility] Comment on above: Performed By: #### L 100.0100, L500.4050 ####[facility] [address] [place], [address] Urea nitrogen [Mass/Vol] 17 mg/dL Normal 7-18 [facility] Comment on above: Performed By: #### L 100.0100, L500.4050 ####[facility] [address] [place], [address] Magnesiumon 08-31-2024 Magnesium [Mass/Vol] 2.3 mg/dL Normal 1.6-2.6 [facility] Comment on above: Performed By: #### L 501.5200, L501.2300 ####[facility] [address] [place], [address] Oncology Visit Reporton Oncology Visit Report Normal [facility] Phosphoruson 08-31-2024 Phosphate [Mass/Vol] 3.3 mg/dL Normal 2.5-4.9 [facility] Comment on above: Performed By: #### L 501.5200, L501.2300 ####[facility] [address] [place], [address] CT Chest, Abd, Pel w/Contras ton 08-30-2024 CT Chest, Abd, Pel w/Contrast Normal [facility] CBC W/Diff, Automatedon 09-0 5-2024 Absolute Lymph 1.04 X10 3/uL Normal 0.83-4.51 [facility] Comment on above: Performed By: #### L 500.4050, L100.0100 ####[facility] [address] [place], [address] Absolute Neut 3.4 X10 3/uL Normal 2.0-7.7 [facility] Comment on above: Performed By: #### L 500.4050, L100.0100 ####[facility] [address] [place], [address] Basophils/100 WBC (Bld) 0.6 % Normal 0-[address] [facility] Comment on above: Performed By: #### L 500.4050, L100.0100 ####[facility] [address] [place], [address] Eosinophils/100 WBC (Bld) 4.6 % Normal 0-5 [facility] Comment on above: Performed By: #### L 500.4050, L100.0100 ####[facility] [address] [place], [address] Erythrocyte distribution width (RBC) [Ratio] 12.5 % Normal 11.6-14.6 [facility] Comment on above: Performed By: #### L 500.4050, L100.0100 ####[facility] [address] [place], [address] Hematocrit (Bld) [Volume fraction] 35.3 % Low 40-54 [facility] Comment on above: Performed By: #### L 500.4050, L100.0100 ####[facility] [address] [place], [address] Hemoglobin (Bld) [Mass/Vol] 12.0 g/dL Low 13.0-16.5 [facility] Comment on above: Performed By: #### L 500.4050, L100.0100 ####[facility] [address] [place], [address] IG% 0.200 Normal 0.0-0.9 [facility] Comment on above: Result Comment: IG% - Immature Granulocytes (promyelocytes, myelocytes andmetamyelocytes) > 1% indicates that a LEFT SHIFT is Present. Performed By: #### L 500.4050, L100.0100 ####[facility] [address] [place], [address] Lymphocytes/100 WBC (Bld) 20.1 % Normal 19-41 [facility] Comment on above: Performed By: #### L 500.4050, L100.0100 ####[facility] [address] [place], [address] MCH (RBC) [Entitic mass] 32.6 pg High 27.0-32.0 [facility] Comment on above: Performed By: #### L 500.4050, L100.0100 ####[facility] [address] [place], [address] MCHC (RBC) [Mass/Vol] 34.0 g/dL Normal 32-36 [facility] Comment on above: Performed By: #### L 500.4050, L100.0100 ####[facility] [address] [place], [address] MCV (RBC) [Entitic vol] 95.9 fL High 80-[address] [facility] Comment on above: Performed By: #### L 500.4050, L100.0100 ####[facility] [address] [place], [address] Monocytes/100 WBC (Bld) 9.7 % Normal 0-[address] [facility] Comment on above: Performed By: #### L 500.4050, L100.0100 ####[facility] [address] [place], [address] Neutrophils/100 WBC (Bld) 64.8 % Normal 47-70 [facility] Comment on above: Performed By: #### L 500.4050, L100.0100 ####[facility] [address] [place], [address] Nucleated RBC (Bld) [#/Vol] 0 10*3/uL Normal 0-5 [facility] Comment on above: Performed By: #### L 500.4050, L100.0100 ####[facility] [address] [place], [address] Platelet mean volume (Bld) [Entitic vol] 8.8 fL Normal 6.2-12.0 [facility] Comment on above: Performed By: #### L 500.4050, L100.0100 ####[facility] [address] [place], [address] Platelets (Bld) [#/Vol] 237 10*3/uL Normal 150-450 [facility] Comment on above: Performed By: #### L 500.4050, L100.0100 ####[facility] [address] [place], [address] RBC (Bld) [#/Vol] 3.68 10*6/uL Low 4.6-6.2 [facility] Comment on above: Performed By: #### L 500.4050, L100.0100 ####[facility] [address] [place], [address] RDW SD 43.8 fl Normal 35.1-43.9 [facility] Comment on above: Performed By: #### L 500.4050, L100.0100 ####[facility] [address] [place], [address] WBC (Bld) [#/Vol] 5.2 10*3/uL Normal 4.4-11.0 [facility] Comment on above: Performed By: #### L 500.4050, L100.0100 ####[facility] [address] [place], [address] Comprehensive Metabolic Prof ilon 08-03-2024 Albumin [Mass/Vol] 3.1 g/dL Low 3.2-5.0 [facility] Comment on above: Performed By: #### L 500.4050, L100.0100 ####[facility] [address] [place], [address] Albumin/Globulin [Mass ratio] 0.9 {ratio} Normal 0.9-2.4 [facility] Comment on above: Performed By: #### L 500.4050, L100.0100 ####[facility] [address] [place], [address] ALK P 89 U/L Normal 45-117 [facility] Comment on above: Performed By: #### L 500.4050, L100.0100 ####[facility] [address] [place], [address] ALT [Catalytic activity/Vol] 18 U/L Normal 16-61 [facility] Comment on above: Performed By: #### L 500.4050, L100.0100 ####[facility] [address] [place], [address] AST [Catalytic activity/Vol] 15 U/L Normal 15-37 [facility] Comment on above: Performed By: #### L 500.4050, L100.0100 ####[facility] [address] [place], [address] Bilirubin [Mass/Vol] 0.40 mg/dL Normal 0.20-1.00 [facility] Comment on above: Result Comment: For patients on eltrombopag therapy, use of Dimension [place] TBIL is not recommended. Performed By: #### L 500.4050, L100.0100 ####[facility] [address] [place], [address] BUN/CRE 12.6 RATIO Normal 10-20 [facility] Comment on above: Performed By: #### L 500.4050, L100.0100 ####[facility] [address] [place], [address] CA,Total 8.6 mg/dL Normal 8.5-10.1 [facility] Comment on above: Performed By: #### L 500.4050, L100.0100 ####[facility] [address] [place], [address] Chloride [Moles/Vol] 107 mmol/L Normal 98-107 [facility] Comment on above: Performed By: #### L 500.4050, L100.0100 ####[facility] [address] [place], [address] CO2 [Moles/Vol] 27.0 mmol/L Normal 21.0-32.0 [facility] Comment on above: Performed By: #### L 500.4050, L100.0100 ####[facility] [address] [place], [address] Creatinine [Mass/Vol] 1.27 mg/dL Normal 0.70-1.30 [facility] Comment on above: Result Comment: The validity of the calculated GFR GFRAA in patients over70 years has not been determined. Clinical correlation isessential. Performed By: #### L 500.4050, L100.0100 ####[facility] [address] [place], [address] ECRCL 47.97 ml/min Normal [facility] Comment on above: Performed By: #### L 500.4050, L100.0100 ####[facility] [address] [place], [address] EST GFR - AA 70 mL/min Normal >60 [facility] Comment on above: Result Comment: Afri can [place] GFR Calc Performed By: #### L 500.4050, L100.0100 ####[facility] [address] [place], [address] GAP 4 Low 5-15 [facility] Comment on above: Performed By: #### L 500.4050, L100.0100 ####[facility] [address] [place], [address] GFR/1.73 sq M.predicted among non-blacks MDRD (S/P/Bld) [Vol rate/Area] 58 mL/min/{1.73_m2} Low >60 [facility] Comment on above: Result Comment: Non- GFR Calc Performed By: #### L 500.4050, L100.0100 ####[facility] [address] [place], [address] Globulin (S) [Mass/Vol] 3.5 g/dL Normal 2.2-4.2 [facility] Comment on above: Performed By: #### L 500.4050, L100.0100 ####[facility] [address] [place], [address] Glucose [Mass/Vol] 110 mg/dL High 74-106 [facility] Comment on above: Result Comment: Fast ing Glucose result from 100 to 125 mg/dLsuggests IMPAIRED HOMEOSTASIS per A.D.A. criteria. Performed By: #### L 500.4050, L100.0100 ####[facility] [address] [place], [address] Potassium [Moles/Vol] 3.6 mmol/L Normal 3.5-5.1 [facility] Comment on above: Performed By: #### L 500.4050, L100.0100 ####[facility] [address] [place], [address] Sodium [Moles/Vol] 138 mmol/L Normal 136-145 [facility] Comment on above: Performed By: #### L 500.4050, L100.0100 ####[facility] [address] [place], [address] T PROT 6.6 g/dL Normal 6.4-8.2 [facility] Comment on above: Performed By: #### L 500.4050, L100.0100 ####[facility] [address] [place], [address] Urea nitrogen [Mass/Vol] 16 mg/dL Normal 7-18 [facility] Comment on above: Performed By: #### L 500.4050, L100.0100 ####[facility] [address] [place], [address] Oncology Visit Reporton Oncology Visit Report Normal [facility] Orthopedic Visit Reporton Orthopedic Visit Report Normal [facility] CBC W/Diff, Automatedon Absolute Lymph 1.25 X10 3/uL Normal 0.83-4.51 [facility] Comment on above: Performed By: #### L 500.4050, L501.9520, L506.0400, L100.0100, L509.6000 ####[facility] [address] [place], [address] Absolute Neut 2.7 X10 3/uL Normal 2.0-7.7 [facility] Comment on above: Performed By: #### L 500.4050, L501.9520, L506.0400, L100.0100, L509.6000 ####[facility] [address] [place], [address] Basophils/100 WBC (Bld) 0.6 % Normal 0-[address] [facility] Comment on above: Performed By: #### L 500.4050, L501.9520, L506.0400, L100.0100, L509.6000 ####[facility] [address] [place], [address] Eosinophils/100 WBC (Bld) 10.9 % High 0-5 [facility] Comment on above: Performed By: #### L 500.4050, L501.9520, L506.0400, L100.0100, L509.6000 ####[facility] [address] [place], [address] Erythrocyte distribution width (RBC) [Ratio] 12.6 % Normal 11.6-14.6 [facility] Comment on above: Performed By: #### L 500.4050, L501.9520, L506.0400, L100.0100, L509.6000 ####[facility] [address] [place], [address] Hematocrit (Bld) [Volume fraction] 36.3 % Low 40-54 [facility] Comment on above: Performed By: #### L 500.4050, L501.9520, L506.0400, L100.0100, L509.6000 ####[facility] [address] [place], [address] Hemoglobin (Bld) [Mass/Vol] 12.5 g/dL Low 13.0-16.5 [facility] Comment on above: Performed By: #### L 500.4050, L501.9520, L506.0400, L100.0100, L509.6000 ####[facility] [address] [place], [address] IG% 0.200 Normal 0.0-0.9 [facility] Comment on above: Result Comment: IG% - Immature Granulocytes (promyelocytes, myelocytes andmetamyelocytes) > 1% indicates that a LEFT SHIFT is Present. Performed By: #### L 500.4050, L501.9520, L506.0400, L100.0100, L509.6000 ####[facility] [address] [place], [address] Lymphocytes/100 WBC (Bld) 24.8 % Normal 19-41 [facility] Comment on above: Performed By: #### L 500.4050, L501.9520, L506.0400, L100.0100, L509.6000 ####[facility] [address] [place], [address] MCH (RBC) [Entitic mass] 33.0 pg High 27.0-32.0 [facility] Comment on above: Performed By: #### L 500.4050, L501.9520, L506.0400, L100.0100, L509.6000 ####[facility] [address] [place], [address] MCHC (RBC) [Mass/Vol] 34.4 g/dL Normal 32-36 [facility] Comment on above: Performed By: #### L 500.4050, L501.9520, L506.0400, L100.0100, L509.6000 ####[facility] [address] [place], [address] MCV (RBC) [Entitic vol] 95.8 fL High 80-[address] [facility] Comment on above: Performed By: #### L 500.4050, L501.9520, L506.0400, L100.0100, L509.6000 ####[facility] [address] [place], [address] Monocytes/100 WBC (Bld) 10.3 % High 0-[address] [facility] Comment on above: Performed By: #### L 500.4050, L501.9520, L506.0400, L100.0100, L509.6000 ####[facility] [address] [place], [address] Neutrophils/100 WBC (Bld) 53.2 % Normal 47-70 [facility] Comment on above: Performed By: #### L 500.4050, L501.9520, L506.0400, L100.0100, L509.6000 ####[facility] [address] [place], [address] Nucleated RBC (Bld) [#/Vol] 0 10*3/uL Normal 0-5 [facility] Comment on above: Performed By: #### L 500.4050, L501.9520, L506.0400, L100.0100, L509.6000 ####[facility] [address] [place], [address] Platelet mean volume (Bld) [Entitic vol] 9.0 fL Normal 6.2-12.0 [facility] Comment on above: Performed By: #### L 500.4050, L501.9520, L506.0400, L100.0100, L509.6000 ####[facility] [address] [place], [address] Platelets (Bld) [#/Vol] 246 10*3/uL Normal 150-450 [facility] Comment on above: Performed By: #### L 500.4050, L501.9520, L506.0400, L100.0100, L509.6000 ####[facility] [address] [place], [address] RBC (Bld) [#/Vol] 3.79 10*6/uL Low 4.6-6.2 [facility] Comment on above: Performed By: #### L 500.4050, L501.9520, L506.0400, L100.0100, L509.6000 ####[facility] [address] [place], [address] RDW SD 43.6 fl Normal 35.1-43.9 [facility] Comment on above: Performed By: #### L 500.4050, L501.9520, L506.0400, L100.0100, L509.6000 ####[facility] [address] [place], [address] WBC (Bld) [#/Vol] 5.0 10*3/uL Normal 4.4-11.0 [facility] Comment on above: Performed By: #### L 500.4050, L501.9520, L506.0400, L100.0100, L509.6000 ####[facility] [address] [place], [address] CORTISOL SERUMon 07-06-2024 CORTISOL 4.50 ug/dL Normal 3.44-22.45 [facility] Comment on above: Result Comment: Adul t (AM) 5.27 - 22.45 ug/dL Adult (PM) 3.44 - 16.76 ug/dLPlease note revised CORTISOL reference range ftzkzzzey13/25/2020. Performed By: #### L 500.4050, L501.9520, L506.0400, L100.0100, L509.6000 ####[facility] [address] [place], [address] Comprehensive Metabolic Prof ilon 07-06-2024 Albumin [Mass/Vol] 3.4 g/dL Normal 3.2-5.0 [facility] Comment on above: Performed By: #### L 500.4050, L501.9520, L506.0400, L100.0100, L509.6000 ####[facility] [address] [place], [address] Albumin/Globulin [Mass ratio] 1.0 {ratio} Normal 0.9-2.4 [facility] Comment on above: Performed By: #### L 500.4050, L501.9520, L506.0400, L100.0100, L509.6000 ####[facility] [address] [place], [address] ALK P 84 U/L Normal 45-117 [facility] Comment on above: Performed By: #### L 500.4050, L501.9520, L506.0400, L100.0100, L509.6000 ####[facility] [address] [place], [address] ALT [Catalytic activity/Vol] 15 U/L Low 16-61 [facility] Comment on above: Performed By: #### L 500.4050, L501.9520, L506.0400, L100.0100, L509.6000 ####[facility] [address] [place], [address] AST [Catalytic activity/Vol] 15 U/L Normal 15-37 [facility] Comment on above: Performed By: #### L 500.4050, L501.9520, L506.0400, L100.0100, L509.6000 ####[facility] [address] [place], [address] Bilirubin [Mass/Vol] 0.50 mg/dL Normal 0.20-1.00 [facility] Comment on above: Result Comment: For patients on eltrombopag therapy, use of Dimension [place] TBIL is not recommended. Performed By: #### L 500.4050, L501.9520, L506.0400, L100.0100, L509.6000 ####[facility] [address] [place], [address] BUN/CRE 15.2 RATIO Normal 10-20 [facility] Comment on above: Performed By: #### L 500.4050, L501.9520, L506.0400, L100.0100, L509.6000 ####[facility] [address] [place], [address] CA,Total 8.8 mg/dL Normal 8.5-10.1 [facility] Comment on above: Performed By: #### L 500.4050, L501.9520, L506.0400, L100.0100, L509.6000 ####[facility] [address] [place], [address] Chloride [Moles/Vol] 106 mmol/L Normal 98-107 [facility] Comment on above: Performed By: #### L 500.4050, L501.9520, L506.0400, L100.0100, L509.6000 ####[facility] [address] [place], [address] CO2 [Moles/Vol] 26.0 mmol/L Normal 21.0-32.0 [facility] Comment on above: Performed By: #### L 500.4050, L501.9520, L506.0400, L100.0100, L509.6000 ####[facility] [address] [place], [address] Creatinine [Mass/Vol] 1.25 mg/dL Normal 0.70-1.30 [facility] Comment on above: Result Comment: The validity of the calculated GFR GFRAA in patients over70 years has not been determined. Clinical correlation isessential. Performed By: #### L 500.4050, L501.9520, L506.0400, L100.0100, L509.6000 ####[facility] [address] [place], [address] ECRCL 48.24 ml/min Normal [facility] Comment on above: Performed By: #### L 500.4050, L501.9520, L506.0400, L100.0100, L509.6000 ####[facility] [address] [place], [address] EST GFR - AA 71 mL/min Normal >60 [facility] Comment on above: Result Comment: Afri can [place] GFR Calc Performed By: #### L 500.4050, L501.9520, L506.0400, L100.0100, L509.6000 ####[facility] [address] [place], [address] GAP 6 Normal 5-15 [facility] Comment on above: Performed By: #### L 500.4050, L501.9520, L506.0400, L100.0100, L509.6000 ####[facility] [address] [place], [address] GFR/1.73 sq M.predicted among non-blacks MDRD (S/P/Bld) [Vol rate/Area] 59 mL/min/{1.73_m2} Low >60 [facility] Comment on above: Result Comment: Non- GFR Calc Performed By: #### L 500.4050, L501.9520, L506.0400, L100.0100, L509.6000 ####[facility] [address] [place], [address] Globulin (S) [Mass/Vol] 3.5 g/dL Normal 2.2-4.2 [facility] Comment on above: Performed By: #### L 500.4050, L501.9520, L506.0400, L100.0100, L509.6000 ####[facility] [address] [place], [address] Glucose [Mass/Vol] 100 mg/dL Normal 74-106 [facility] Comment on above: Result Comment: Fast ing Glucose result from 100 to 125 mg/dLsuggests IMPAIRED HOMEOSTASIS per A.D.A. criteria. Performed By: #### L 500.4050, L501.9520, L506.0400, L100.0100, L509.6000 ####[facility] [address] [place], [address] Potassium [Moles/Vol] 3.7 mmol/L Normal 3.5-5.1 [facility] Comment on above: Performed By: #### L 500.4050, L501.9520, L506.0400, L100.0100, L509.6000 ####[facility] [address] [place], [address] Sodium [Moles/Vol] 138 mmol/L Normal 136-145 [facility] Comment on above: Performed By: #### L 500.4050, L501.9520, L506.0400, L100.0100, L509.6000 ####[facility] [address] [place], [address] T PROT 6.9 g/dL Normal 6.4-8.2 [facility] Comment on above: Performed By: #### L 500.4050, L501.9520, L506.0400, L100.0100, L509.6000 ####[facility] [address] [place], [address] Urea nitrogen [Mass/Vol] 19 mg/dL High 7-18 [facility] Comment on above: Performed By: #### L 500.4050, L501.9520, L506.0400, L100.0100, L509.6000 ####[facility] [address] [place], [address] Magnesiumon 07-06-2024 Magnesium [Mass/Vol] 2.4 mg/dL Normal 1.6-2.6 [facility] Comment on above: Performed By: #### L 501.5200, L501.2300 ####[facility] [address] [place], [address] Oncology Visit Reporton 08-0 Oncology Visit Report Normal [facility] Phosphoruson 07-06-2024 Phosphate [Mass/Vol] 3.0 mg/dL Normal 2.5-4.9 [facility] Comment on above: Performed By: #### L 501.5200, L501.2300 ####[facility] [address] [place], [address] T4 Free Directon 07-06-2024 T4 FREE DIRECT 1.05 ng/dL Normal 0.76-1.46 [facility] Comment on above: Performed By: #### L 500.4050, L501.9520, L506.0400, L100.0100, L509.6000 ####[facility] [address] [place], [address] Thyroid Stim Hormone (TSH)on 07-06-2024 TSH 3.10 uIU/mL Normal 0.358-3.74 [facility] Comment on above: Performed By: #### L 500.4050, L501.9520, L506.0400, L100.0100, L509.6000 ####[facility] [address] [place], [address] PT D/C Summary (1)on 024 PT D/C Summary (1) Normal [facility] Cardiology Visit Reporton Cardiology Visit Report Normal [facility] CBC W/Diff, Automatedon 05-29 Absolute Lymph 1.16 X10 3/uL Normal 0.83-4.51 [facility] Comment on above: Performed By: #### L 500.4050, L506.0400, L501.9520, L509.6000, L100.0100 ####[facility] [address] [place], [address] Absolute Neut 2.8 X10 3/uL Normal 2.0-7.7 [facility] Comment on above: Performed By: #### L 500.4050, L506.0400, L501.9520, L509.6000, L100.0100 ####[facility] [address] [place], [address] Basophils/100 WBC (Bld) 0.8 % Normal 0-[address] [facility] Comment on above: Performed By: #### L 500.4050, L506.0400, L501.9520, L509.6000, L100.0100 ####[facility] [address] [place], [address] Eosinophils/100 WBC (Bld) 13.2 % High 0-5 [facility] Comment on above: Performed By: #### L 500.4050, L506.0400, L501.9520, L509.6000, L100.0100 ####[facility] [address] [place], [address] Erythrocyte distribution width (RBC) [Ratio] 12.9 % Normal 11.6-14.6 [facility] Comment on above: Performed By: #### L 500.4050, L506.0400, L501.9520, L509.6000, L100.0100 ####[facility] [address] [place], [address] Hematocrit (Bld) [Volume fraction] 34.3 % Low 40-54 [facility] Comment on above: Performed By: #### L 500.4050, L506.0400, L501.9520, L509.6000, L100.0100 ####[facility] [address] [place], [address] Hemoglobin (Bld) [Mass/Vol] 11.8 g/dL Low 13.0-16.5 [facility] Comment on above: Performed By: #### L 500.4050, L506.0400, L501.9520, L509.6000, L100.0100 ####[facility] [address] [place], [address] IG% 0.400 Normal 0.0-0.9 [facility] Comment on above: Result Comment: IG% - Immature Granulocytes (promyelocytes, myelocytes andmetamyelocytes) > 1% indicates that a LEFT SHIFT is Present. Performed By: #### L 500.4050, L506.0400, L501.9520, L509.6000, L100.0100 ####[facility] [address] [place], [address] Lymphocytes/100 WBC (Bld) 22.3 % Normal 19-41 [facility] Comment on above: Performed By: #### L 500.4050, L506.0400, L501.9520, L509.6000, L100.0100 ####[facility] [address] [place], [address] MCH (RBC) [Entitic mass] 32.3 pg High 27.0-32.0 [facility] Comment on above: Performed By: #### L 500.4050, L506.0400, L501.9520, L509.6000, L100.0100 ####[facility] [address] [place], [address] MCHC (RBC) [Mass/Vol] 34.4 g/dL Normal 32-36 [facility] Comment on above: Performed By: #### L 500.4050, L506.0400, L501.9520, L509.6000, L100.0100 ####[facility] [address] [place], [address] MCV (RBC) [Entitic vol] 94.0 fL Normal 80-[address] [facility] Comment on above: Performed By: #### L 500.4050, L506.0400, L501.9520, L509.6000, L100.0100 ####[facility] [address] [place], [address] Monocytes/100 WBC (Bld) 9.2 % Normal 0-[address] [facility] Comment on above: Performed By: #### L 500.4050, L506.0400, L501.9520, L509.6000, L100.0100 ####[facility] [address] [place], [address] Neutrophils/100 WBC (Bld) 54.1 % Normal 47-70 [facility] Comment on above: Performed By: #### L 500.4050, L506.0400, L501.9520, L509.6000, L100.0100 ####[facility] [address] [place], [address] Nucleated RBC (Bld) [#/Vol] 0 10*3/uL Normal 0-5 [facility] Comment on above: Performed By: #### L 500.4050, L506.0400, L501.9520, L509.6000, L100.0100 ####[facility] [address] [place], [address] Platelet mean volume (Bld) [Entitic vol] 9.1 fL Normal 6.2-12.0 [facility] Comment on above: Performed By: #### L 500.4050, L506.0400, L501.9520, L509.6000, L100.0100 ####[facility] [address] [place], [address] Platelets (Bld) [#/Vol] 252 10*3/uL Normal 150-450 [facility] Comment on above: Performed By: #### L 500.4050, L506.0400, L501.9520, L509.6000, L100.0100 ####[facility] [address] [place], [address] RBC (Bld) [#/Vol] 3.65 10*6/uL Low 4.6-6.2 [facility] Comment on above: Performed By: #### L 500.4050, L506.0400, L501.9520, L509.6000, L100.0100 ####[facility] [address] [place], [address] RDW SD 44.5 fl High 35.1-43.9 [facility] Comment on above: Performed By: #### L 500.4050, L506.0400, L501.9520, L509.6000, L100.0100 ####[facility] [address] [place], [address] WBC (Bld) [#/Vol] 5.2 10*3/uL Normal 4.4-11.0 [facility] Comment on above: Performed By: #### L 500.4050, L506.0400, L501.9520, L509.6000, L100.0100 ####[facility] [address] [place], [address] CORTISOL SERUMon 06-08-2024 CORTISOL 6.90 ug/dL Normal 3.44-22.45 [facility] Comment on above: Result Comment: Adul t (AM) 5.27 - 22.45 ug/dL Adult (PM) 3.44 - 16.76 ug/dLPlease note revised CORTISOL reference range [id number]/25/2020. Performed By: #### L 500.4050, L506.0400, L501.9520, L509.6000, L100.0100 ####[facility] [address] [place], [address] Comprehensive Metabolic Prof ilon 06-08-2024 Albumin [Mass/Vol] 3.2 g/dL Normal 3.2-5.0 [facility] Comment on above: Performed By: #### L 500.4050, L506.0400, L501.9520, L509.6000, L100.0100 ####[facility] [address] [place], [address] Albumin/Globulin [Mass ratio] 0.9 {ratio} Normal 0.9-2.4 [facility] Comment on above: Performed By: #### L 500.4050, L506.0400, L501.9520, L509.6000, L100.0100 ####[facility] [address] [place], [address] ALK P 83 U/L Normal 45-117 [facility] Comment on above: Performed By: #### L 500.4050, L506.0400, L501.9520, L509.6000, L100.0100 ####[facility] [address] [place], [address] ALT [Catalytic activity/Vol] 16 U/L Normal 16-61 [facility] Comment on above: Performed By: #### L 500.4050, L506.0400, L501.9520, L509.6000, L100.0100 ####[facility] [address] [place], [address] AST [Catalytic activity/Vol] 16 U/L Normal 15-37 [facility] Comment on above: Performed By: #### L 500.4050, L506.0400, L501.9520, L509.6000, L100.0100 ####[facility] [address] [place], [address] Bilirubin [Mass/Vol] 0.50 mg/dL Normal 0.20-1.00 [facility] Comment on above: Result Comment: For patients on eltrombopag therapy, use of Dimension [place] TBIL is not recommended. Performed By: #### L 500.4050, L506.0400, L501.9520, L509.6000, L100.0100 ####[facility] [address] [place], [address] BUN/CRE 12.3 RATIO Normal 10-20 [facility] Comment on above: Performed By: #### L 500.4050, L506.0400, L501.9520, L509.6000, L100.0100 ####[facility] [address] [place], [address] CA,Total 8.6 mg/dL Normal 8.5-10.1 [facility] Comment on above: Performed By: #### L 500.4050, L506.0400, L501.9520, L509.6000, L100.0100 ####[facility] [address] [place], [address] Chloride [Moles/Vol] 106 mmol/L Normal 98-107 [facility] Comment on above: Performed By: #### L 500.4050, L506.0400, L501.9520, L509.6000, L100.0100 ####[facility] [address] [place], [address] CO2 [Moles/Vol] 26.0 mmol/L Normal 21.0-32.0 [facility] Comment on above: Performed By: #### L 500.4050, L506.0400, L501.9520, L509.6000, L100.0100 ####[facility] [address] [place], [address] Creatinine [Mass/Vol] 1.38 mg/dL High 0.70-1.30 [facility] Comment on above: Result Comment: The validity of the calculated GFR GFRAA in patients over70 years has not been determined. Clinical correlation isessential. Performed By: #### L 500.4050, L506.0400, L501.9520, L509.6000, L100.0100 ####[facility] [address] [place], [address] ECRCL 43.70 ml/min Normal [facility] Comment on above: Performed By: #### L 500.4050, L506.0400, L501.9520, L509.6000, L100.0100 ####[facility] [address] [place], [address] EST GFR - AA 63 mL/min Normal >60 [facility] Comment on above: Result Comment: Afri can [place] GFR Calc Performed By: #### L 500.4050, L506.0400, L501.9520, L509.6000, L100.0100 ####[facility] [address] [place], [address] GAP 7 Normal 5-15 [facility] Comment on above: Performed By: #### L 500.4050, L506.0400, L501.9520, L509.6000, L100.0100 ####[facility] [address] [place], [address] GFR/1.73 sq M.predicted among non-blacks MDRD (S/P/Bld) [Vol rate/Area] 52 mL/min/{1.73_m2} Low >60 [facility] Comment on above: Result Comment: Non- GFR Calc Performed By: #### L 500.4050, L506.0400, L501.9520, L509.6000, L100.0100 ####[facility] [address] [place], [address] Globulin (S) [Mass/Vol] 3.4 g/dL Normal 2.2-4.2 [facility] Comment on above: Performed By: #### L 500.4050, L506.0400, L501.9520, L509.6000, L100.0100 ####[facility] [address] [place], [address] Glucose [Mass/Vol] 121 mg/dL High 74-106 [facility] Comment on above: Result Comment: Fast ing Glucose result from 100 to 125 mg/dLsuggests IMPAIRED HOMEOSTASIS per A.D.A. criteria. Performed By: #### L 500.4050, L506.0400, L501.9520, L509.6000, L100.0100 ####[facility] [address] [place], [address] Potassium [Moles/Vol] 3.5 mmol/L Normal 3.5-5.1 [facility] Comment on above: Performed By: #### L 500.4050, L506.0400, L501.9520, L509.6000, L100.0100 ####[facility] [address] [place], [address] Sodium [Moles/Vol] 139 mmol/L Normal 136-145 [facility] Comment on above: Performed By: #### L 500.4050, L506.0400, L501.9520, L509.6000, L100.0100 ####[facility] [address] [place], [address] T PROT 6.6 g/dL Normal 6.4-8.2 [facility] Comment on above: Performed By: #### L 500.4050, L506.0400, L501.9520, L509.6000, L100.0100 ####[facility] [address] [place], [address] Urea nitrogen [Mass/Vol] 17 mg/dL Normal 7-18 [facility] Comment on above: Performed By: #### L 500.4050, L506.0400, L501.9520, L509.6000, L100.0100 ####[facility] [address] [place], [address] Oncology Visit Reporton 05-29 Oncology Visit Report Normal [facility] T4 Free Directon 06-08-2024 T4 FREE DIRECT 1.14 ng/dL Normal 0.76-1.46 [facility] Comment on above: Performed By: #### L 500.4050, L506.0400, L501.9520, L509.6000, L100.0100 ####[facility] [address] [place], [address] Thyroid Stim Hormone (TSH)on 06-08-2024 TSH 3.79 uIU/mL High 0.358-3.74 [facility] Comment on above: Performed By: #### L 500.4050, L506.0400, L501.9520, L509.6000, L100.0100 ####[facility] [address] [place], [address] Bone Scan Whole Bodyon 06-02 Bone Scan Whole Body Normal [facility] CT Chest, Abd, Pel w/Contras ton 05-29-2024 CT Chest, Abd, Pel w/Contrast Normal [facility] Inital Evaluation (1) - PTon 05-22-2024 Inital Evaluation (1) - PT Normal [facility] CBC W/Diff, Automatedon 04-29 Absolute Lymph 0.97 X10 3/uL Normal 0.83-4.51 [facility] Comment on above: Performed By: #### L 501.9520, L100.0100, L509.6000, L506.0400, L500.4050 ####[facility] [address] [place], [address] Absolute Neut 2.6 X10 3/uL Normal 2.0-7.7 [facility] Comment on above: Performed By: #### L 501.9520, L100.0100, L509.6000, L506.0400, L500.4050 ####[facility] [address] [place], [address] Basophils/100 WBC (Bld) 0.5 % Normal 0-[address] [facility] Comment on above: Performed By: #### L 501.9520, L100.0100, L509.6000, L506.0400, L500.4050 ####[facility] [address] [place], [address] Eosinophils/100 WBC (Bld) 7.1 % High 0-5 [facility] Comment on above: Performed By: #### L 501.9520, L100.0100, L509.6000, L506.0400, L500.4050 ####[facility] [address] [place], [address] Erythrocyte distribution width (RBC) [Ratio] 12.5 % Normal 11.6-14.6 [facility] Comment on above: Performed By: #### L 501.9520, L100.0100, L509.6000, L506.0400, L500.4050 ####[facility] [address] [place], [address] Hematocrit (Bld) [Volume fraction] 35.2 % Low 40-54 [facility] Comment on above: Performed By: #### L 501.9520, L100.0100, L509.6000, L506.0400, L500.4050 ####[facility] [address] [place], [address] Hemoglobin (Bld) [Mass/Vol] 12.0 g/dL Low 13.0-16.5 [facility] Comment on above: Performed By: #### L 501.9520, L100.0100, L509.6000, L506.0400, L500.4050 ####[facility] [address] [place], [address] IG% 0.200 Normal 0.0-0.9 [facility] Comment on above: Result Comment: IG% - Immature Granulocytes (promyelocytes, myelocytes andmetamyelocytes) > 1% indicates that a LEFT SHIFT is Present. Performed By: #### L 501.9520, L100.0100, L509.6000, L506.0400, L500.4050 ####[facility] [address] [place], [address] Lymphocytes/100 WBC (Bld) 22.1 % Normal 19-41 [facility] Comment on above: Performed By: #### L 501.9520, L100.0100, L509.6000, L506.0400, L500.4050 ####[facility] [address] [place], [address] MCH (RBC) [Entitic mass] 32.6 pg High 27.0-32.0 [facility] Comment on above: Performed By: #### L 501.9520, L100.0100, L509.6000, L506.0400, L500.4050 ####[facility] [address] [place], [address] MCHC (RBC) [Mass/Vol] 34.1 g/dL Normal 32-36 [facility] Comment on above: Performed By: #### L 501.9520, L100.0100, L509.6000, L506.0400, L500.4050 ####[facility] [address] [place], [address] MCV (RBC) [Entitic vol] 95.7 fL High 80-94 [facility] Comment on above: Performed By: #### L 501.9520, L100.0100, L509.6000, L506.0400, L500.4050 ####[facility] [address] [place], [address] Monocytes/100 WBC (Bld) 10.5 % High 0-[address] [facility] Comment on above: Performed By: #### L 501.9520, L100.0100, L509.6000, L506.0400, L500.4050 ####[facility] [address] [place], [address] Neutrophils/100 WBC (Bld) 59.6 % Normal 47-70 [facility] Comment on above: Performed By: #### L 501.9520, L100.0100, L509.6000, L506.0400, L500.4050 ####[facility] [address] [place], [address] Nucleated RBC (Bld) [#/Vol] 0 10*3/uL Normal 0-5 [facility] Comment on above: Performed By: #### L 501.9520, L100.0100, L509.6000, L506.0400, L500.4050 ####[facility] [address] [place], [address] Platelet mean volume (Bld) [Entitic vol] 9.0 fL Normal 6.2-12.0 [facility] Comment on above: Performed By: #### L 501.9520, L100.0100, L509.6000, L506.0400, L500.4050 ####[facility] [address] [place], [address] Platelets (Bld) [#/Vol] 264 10*3/uL Normal 150-450 [facility] Comment on above: Performed By: #### L 501.9520, L100.0100, L509.6000, L506.0400, L500.4050 ####[facility] [address] [place], [address] RBC (Bld) [#/Vol] 3.68 10*6/uL Low 4.6-6.2 [facility] Comment on above: Performed By: #### L 501.9520, L100.0100, L509.6000, L506.0400, L500.4050 ####[facility] [address] [place], [address] RDW SD 43.8 fl Normal 35.1-43.9 [facility] Comment on above: Performed By: #### L 501.9520, L100.0100, L509.6000, L506.0400, L500.4050 ####[facility] [address] [place], [address] WBC (Bld) [#/Vol] 4.4 10*3/uL Normal 4.4-11.0 [facility] Comment on above: Performed By: #### L 501.9520, L100.0100, L509.6000, L506.0400, L500.4050 ####[facility] [address] [place], [address] CORTISOL SERUMon 05-11-2024 CORTISOL 8.00 ug/dL Normal 3.44-22.45 [facility] Comment on above: Result Comment: Adul t (AM) 5.27 - 22.45 ug/dL Adult (PM) 3.44 - 16.76 ug/dLPlease note revised CORTISOL reference range [id number]/25/2020. Performed By: #### L 501.9520, L100.0100, L509.6000, L506.0400, L500.4050 ####[facility] [address] [place], [address] Comprehensive Metabolic Prof ilon 05-11-2024 Albumin [Mass/Vol] 3.3 g/dL Normal 3.2-5.0 [facility] Comment on above: Performed By: #### L 501.9520, L100.0100, L509.6000, L506.0400, L500.4050 ####[facility] [address] [place], [address] Albumin/Globulin [Mass ratio] 0.9 {ratio} Normal 0.9-2.4 [facility] Comment on above: Performed By: #### L 501.9520, L100.0100, L509.6000, L506.0400, L500.4050 ####[facility] [address] [place], [address] ALK P 88 U/L Normal 45-117 [facility] Comment on above: Performed By: #### L 501.9520, L100.0100, L509.6000, L506.0400, L500.4050 ####[facility] [address] [place], [address] ALT [Catalytic activity/Vol] 19 U/L Normal 16-61 [facility] Comment on above: Performed By: #### L 501.9520, L100.0100, L509.6000, L506.0400, L500.4050 ####[facility] [address] [place], [address] AST [Catalytic activity/Vol] 20 U/L Normal 15-37 [facility] Comment on above: Performed By: #### L 501.9520, L100.0100, L509.6000, L506.0400, L500.4050 ####[facility] [address] [place], [address] Bilirubin [Mass/Vol] 0.60 mg/dL Normal 0.20-1.00 [facility] Comment on above: Result Comment: For patients on eltrombopag therapy, use of Dimension [place] TBIL is not recommended. Performed By: #### L 501.9520, L100.0100, L509.6000, L506.0400, L500.4050 ####[facility] [address] [place], [address] BUN/CRE 12.2 RATIO Normal 10-20 [facility] Comment on above: Performed By: #### L 501.9520, L100.0100, L509.6000, L506.0400, L500.4050 ####[facility] [address] [place], [address] CA,Total 8.9 mg/dL Normal 8.5-10.1 [facility] Comment on above: Performed By: #### L 501.9520, L100.0100, L509.6000, L506.0400, L500.4050 ####[facility] [address] [place], [address] Chloride [Moles/Vol] 104 mmol/L Normal 98-107 [facility] Comment on above: Performed By: #### L 501.9520, L100.0100, L509.6000, L506.0400, L500.4050 ####[facility] [address] [place], [address] CO2 [Moles/Vol] 27.0 mmol/L Normal 21.0-32.0 [facility] Comment on above: Performed By: #### L 501.9520, L100.0100, L509.6000, L506.0400, L500.4050 ####[facility] [address] [place], [address] Creatinine [Mass/Vol] 1.31 mg/dL High 0.70-1.30 [facility] Comment on above: Result Comment: The validity of the calculated GFR GFRAA in patients over70 years has not been determined. Clinical correlation isessential. Performed By: #### L 501.9520, L100.0100, L509.6000, L506.0400, L500.4050 ####[facility] [address] [place], [address] ECRCL 45.95 ml/min Normal [facility] Comment on above: Performed By: #### L 501.9520, L100.0100, L509.6000, L506.0400, L500.4050 ####[facility] [address] [place], [address] EST GFR - AA 67 mL/min Normal >60 [facility] Comment on above: Result Comment: Afri can [place] GFR Calc Performed By: #### L 501.9520, L100.0100, L509.6000, L506.0400, L500.4050 ####[facility] [address] [place], [address] GAP 7 Normal 5-15 [facility] Comment on above: Performed By: #### L 501.9520, L100.0100, L509.6000, L506.0400, L500.4050 ####[facility] [address] [place], [address] GFR/1.73 sq M.predicted among non-blacks MDRD (S/P/Bld) [Vol rate/Area] 56 mL/min/{1.73_m2} Low >60 [facility] Comment on above: Result Comment: Non- GFR Calc Performed By: #### L 501.9520, L100.0100, L509.6000, L506.0400, L500.4050 ####[facility] [address] [place], [address] Globulin (S) [Mass/Vol] 3.5 g/dL Normal 2.2-4.2 [facility] Comment on above: Performed By: #### L 501.9520, L100.0100, L509.6000, L506.0400, L500.4050 ####[facility] [address] [place], [address] Glucose [Mass/Vol] 135 mg/dL High 74-106 [facility] Comment on above: Result Comment: Fast ing Glucose result greater than or equal to 126 mg/dLsuggests DIABETES MELLITUS per A.D.A. criteria. Performed By: #### L 501.9520, L100.0100, L509.6000, L506.0400, L500.4050 ####[facility] [address] [place], [address] Potassium [Moles/Vol] 3.5 mmol/L Normal 3.5-5.1 [facility] Comment on above: Performed By: #### L 501.9520, L100.0100, L509.6000, L506.0400, L500.4050 ####[facility] [address] [place], [address] Sodium [Moles/Vol] 138 mmol/L Normal 136-145 [facility] Comment on above: Performed By: #### L 501.9520, L100.0100, L509.6000, L506.0400, L500.4050 ####[facility] [address] [place], [address] T PROT 6.8 g/dL Normal 6.4-8.2 [facility] Comment on above: Performed By: #### L 501.9520, L100.0100, L509.6000, L506.0400, L500.4050 ####[facility] [address] [place], [address] Urea nitrogen [Mass/Vol] 16 mg/dL Normal 7-18 [facility] Comment on above: Performed By: #### L 501.9520, L100.0100, L509.6000, L506.0400, L500.4050 ####[facility] [address] [place], [address] Knee 1 or 2 Viewson 05-11-20 24 Knee 1 or 2 Views Normal [facility] Oncology Visit Reporton 04-29 Oncology Visit Report Normal [facility] T4 Free Directon 05-11-2024 T4 FREE DIRECT 1.00 ng/dL Normal 0.76-1.46 [facility] Comment on above: Performed By: #### L [id number], L100.0100, L509.6000, L506.0400, L500.4050 ####[facility] [id number] [place], [address] Thyroid Stim Hormone (TSH)on 05-11-2024 TSH 5.83 uIU/mL High 0.358-3.74 [facility] Comment on above: Performed By: #### L [id number], L100.0100, L509.6000, L506.0400, L500.4050 ####[facility] [id number] [place], [place], [id number] Diagnostic total prostate sp ecific antigen (PSA) measurementOrdered By: Erin Adair on 03-16-2024 Prostate Specific Antigen Total 3.09 ng/mL 0.0-4.0 [facility] Comment on above: This test was perfor med using the TPSA assay method for the[employer] chemistry system. Values obtained with differentassay methods cannot be used interchangably.When changing PSA assays in the course of monitoring apatient, additional sequential testing should be carriedout to confirm baseline values. Absolute lymphocyte countOrd ered By: Brianna Souza on 01-27-2024 Lymphocytes Auto (Unsp spec) [#/Vol] 1.22 10*3/uL 0.83-4.51 [facility] Automated lymphocyte count a s percentage of total leukocytesOrdered By: Brianna Souza on 01-27-2024 Lymphocytes/100 WBC Auto (Unsp spec) 30.3 % 19-41 [facility] Basophil percentageOrdered B y: Brianna Souza on 01-27-2024 Basophils/100 WBC (Bld) 0.7 % 0-[address] [facility] Bilirubin [Mass/Vol] 0.40 mg/dL 0.20-1.00 [facility] Comment on above: For patients on eltr ombopag therapy, use of Dimension [place] TBIL is not recommended. Chloride [Moles/Vol] 106 mmol/L 98-107 [facility] Eosinophils/100 WBC (Bld) 10.2 % 0-5 [facility] Glucose [Mass/Vol] 93 mg/dL 74-106 [facility] Hemoglobin (Bld) [Mass/Vol] 11.9 g/dL 13.0-16.5 [facility] Monocytes/100 WBC (Bld) 12.7 % 0-[address] [facility] Neutrophils (Bld) [#/Vol] 1.8 10*3/uL 2.0-7.7 [facility] Neutrophils/100 WBC (Bld) 45.9 % 47-70 [facility] Potassium [Moles/Vol] 3.7 mmol/L 3.5-5.1 [facility] Protein [Mass/Vol] 6.7 g/dL 6.4-8.2 [facility] Sodium [Moles/Vol] 137 mmol/L 136-145 [facility] WBC (Bld) [#/Vol] 4.0 10*3/uL 4.4-11.0 [facility] Determination of erythrocyte mean corpuscular volume (MCV)Ordered By: Brianna Souza on 01-27-2024 MCV (RBC) [Entitic vol] 94.0 fL 80-[address] [facility] Erythrocyte distribution wid th ratioOrdered By: [facility] Harley on 01-27-2024 Erythrocyte distribution width (RBC) [Ratio] 13.2 % 11.6-14.6 [facility] Erythrocyte distribution wid th standard deviationOrdered By: [facility] 01-27-2024 Erythrocyte distribution width (RBC) [Entitic vol] 45.2 fL 35.1-43.9 [facility] Hematocrit Auto (Bld) [Volum e fraction]Ordered By: [facility] Harley on 01-27-2024 Hematocrit (Bld) [Volume fraction] 34.3 % 40-54 [facility] Immature granulocytes/100 WB C Auto (Bld)Ordered By: [facility] Harley on 01-27-2024 Immature granulocytes/100 WBC (Bld) 0.200 % 0.0-0.9 [facility] Comment on above: IG% - Immature Granu locytes (promyelocytes, myelocytes and metamyelocytes) > 1% indicates that a LEFT SHIFT is Present. Laboratory - Chemistry and C hemistry - challengeOrdered By: Brianna Souza on 01-27-2024 Albumin/Globulin [Mass ratio] 0.9 {ratio} 0.9-2.4 [facility] ALP [Catalytic activity/Vol] 93 U/L 45-117 [facility] ALT [Catalytic activity/Vol] 24 U/L 16-61 [facility] CO2 [Moles/Vol] 27.0 mmol/L 21.0-32.0 [facility] Globulin (S) [Mass/Vol] 3.5 g/dL 2.2-4.2 [facility] Urea nitrogen/Creatinine [Mass ratio] 15.7 mg/mg 10-20 [facility] Laboratory - Hematology and Cell countsOrdered By: Brianna Souza on 01-27-2024 MCH (RBC) [Entitic mass] 32.6 pg 27.0-32.0 [facility] MCHC (RBC) [Mass/Vol] 34.7 g/dL 32-36 [facility] Nucleated RBC/100 WBC (Bld) [Ratio] 0 % 0-5 [facility] Platelet mean volume (Bld) [Entitic vol] 8.8 fL 6.2-12.0 [facility] Platelets (Bld) [#/Vol] 231 10*3/uL 150-450 [facility] No Panel InformationOrdered By: Brianna Souza on 01-27-2024 Estimated Creatinine Clearance Calc 47.05 ml/min [facility] Estimated GFR (MDRD) Amer 70 mL/min >60 [facility] Comment on above: GFR Calc Estimated GFR (MDRD) Non-Af Amer 58 mL/min >60 [facility] Comment on above: Non- GFR Calc RBC Auto (Bld) [#/Vol]Ordere d By: Brianna Souza on 01-27-2024 RBC (Bld) [#/Vol] 3.65 10*6/uL 4.6-6.2 [facility] Serum or plasma calcium arian urement (mass/volume)Ordered By: Brianna Souza on 01-27-2024 Calcium [Mass/Vol] 8.7 mg/dL 8.5-10.1 [facility] Serum or plasma cortisol karon surement (mass/volume)Ordered By: Brianna Souza on 01-27-2024 Cortisol [Mass/Vol] 8.90 ug/dL 3.44-22.45 [facility] Comment on above: Adult (AM) 5.27 - 22 .45 ug/dL Adult (PM) 3.44 - 16.76 ug/dLPlease note revised CORTISOL reference range effective 2020. Serum or plasma creatinine m easurement (mass/volume)Ordered By: Brianna Souza on 01-27-2024 Creatinine [Mass/Vol] 1.27 mg/dL 0.70-1.30 [facility] Comment on above: The validity of the calculated GFR & GFRAA in patients over 70 years has not been determined. Clinical correlation is essential. Serum or plasma thyroid stim ulating hormone (TSH) measurement (units/volume)Ordered By: Brianna Souza on 01-27-2024 TSH Qn 9.82 uIU/mL 0.358-3.74 [facility] Serum or plasma urea nitroge n measurement (mass/volume)Ordered By: Brianna Souza on 01-27-2024 Urea nitrogen [Mass/Vol] 20 mg/dL 7-18 [facility] Thin prep Papanicolaou smear with manual screeningOrdered By: [facility] on 01-27-2024 Thin prep Papanicolaou smear with manual screening 3.2 g/dL 3.2-5.0 [facility] Thin prep Papanicolaou smear with manual screening 20 U/L 15-37 [facility] Thin prep Papanicolaou smear with manual screening 4 5-15 [facility] Thin prep Papanicolaou smear with manual screening 0.96 ng/dL 0.76-1.46 [facility] 36on 01-19-2024 [address] [facility] 36 HAd to call pt back asking about other med's Confirmed off bisoprolol Taking lopressor [address] [facility] 36 Pt calling in with update on medication. Pt states he takes metoprolol 25 mg bid. Normal [facility] Office Visiton 01-19-2024 Follow-up visit [id number] VincentAndrasta ferris 1940 M Date Provider Department Center 01/19/2024 [id number]-[facility]AYBY[facility]ILO DOLAN [facility] [address] No family history on file Level of Service:29303 MS OFFICE/OUTPATIENT ESTABLISHED MOD MDM 30 MIN Reason for Visit and Comments: 6 Month Follow-up [671] Normal [facility] Progress Noteon 01-19-2024 Progress Note [facility] Cardiology Note Chief Complaint: Chief [...] knee PAF (paroxysmal atrial fibrillation) (CMS/HCC) (HCC) Past Surgical History Past Surgical History: [...] Examination: Vitals: Vitals: 01/19/24 0901 BP: 110/86 (more content not included)... Normal [facility] Basophil percentageOrdered B y: Brianna Souza on 01-06-2024 Basophil percentage 2.8 mg/dL 2.5-4.9 [facility] Laboratory - Chemistry and C hemistry - challengeOrdered By: [facility] on 01-06-2024 Magnesium [Mass/Vol] 2.1 mg/dL 1.6-2.6 [facility] Absolute lymphocyte countOrd ered By: [facility] on 10-28-2023 Lymphocytes Auto (Unsp spec) [#/Vol] 0.91 10*3/uL 0.83-4.51 [facility] Basophil percentageOrdered B y: [facility] Ayushjaime on 10-28-2023 Basophils/100 WBC (Bld) 0.6 % 0-1 [facility] Bilirubin [Mass/Vol] 0.60 mg/dL 0.20-1.00 [facility] Comment on above: For patients on eltr ombopag therapy, use of Dimension [place] TBIL is not recommended. Chloride [Moles/Vol] 106 mmol/L 98-107 [facility] Eosinophils/100 WBC (Bld) 4.5 % 0-5 [facility] Glucose [Mass/Vol] 124 mg/dL 74-106 [facility] Comment on above: Fasting Glucose resu lt from 100 to 125 mg/dL suggests IMPAIRED HOMEOSTASIS per A.D.A. criteria. Neutrophils (Bld) [#/Vol] 2.2 10*3/uL 2.0-7.7 [facility] Neutrophils/100 WBC (Bld) 60.9 % 47-70 [facility] Potassium [Moles/Vol] 3.5 mmol/L 3.5-5.1 [facility] Protein [Mass/Vol] 7.4 g/dL 6.4-8.2 [facility] Sodium [Moles/Vol] 141 mmol/L 136-145 [facility] WBC (Bld) [#/Vol] 3.5 10*3/uL 4.4-11.0 [facility] Blood erythrocytes count (nu mber/volume)Ordered By: Brianna Souza on 10-28-2023 RBC (Bld) [#/Vol] 4.04 10*6/uL 4.6-6.2 [facility] Blood hemoglobin measurement (mass/volume)Ordered By: Brianna Souza on 10-28-2023 Hemoglobin (Bld) [Mass/Vol] 13.1 g/dL 13.0-16.5 [facility] Blood lymphocytes/100 leukoc ytesOrdered By: Brianna Souza on 10-28-2023 Lymphocytes/100 WBC (Bld) 25.8 % 19-41 [facility] Blood monocytes/100 leukocyt esOrdered By: Brianna Souza on 10-28-2023 Monocytes/100 WBC (Bld) 7.9 % 0-[address] [facility] Blood platelet mean volumeOr dered By: Brianna Souza on 10-28-2023 Platelet mean volume (Bld) [Entitic vol] 8.9 fL 6.2-12.0 [facility] Determination of erythrocyte mean corpuscular volume (MCV)Ordered By: Brianna Souza on 10-28-2023 MCV (RBC) [Entitic vol] 95.8 fL 80-[address] [facility] Hematocrit Auto (Bld) [Volum e fraction]Ordered By: Brianna Souza on 10-28-2023 Hematocrit (Bld) [Volume fraction] 38.7 % 40-54 [facility] INR in Blood by Coagulation assayOrdered By: Brianna Souza on 10-28-2023 INR Coag (Bld) [Relative time] 1.3 {INR} [facility] Laboratory - Chemistry and C hemistry - challengeOrdered By: Brianna Souza on 10-28-2023 ALP [Catalytic activity/Vol] 116 U/L 45-117 [facility] ALT [Catalytic activity/Vol] 21 U/L 16-61 [facility] CO2 [Moles/Vol] 28.0 mmol/L 21.0-32.0 [facility] Globulin (S) [Mass/Vol] 4.0 g/dL 2.2-4.2 [facility] Urea nitrogen/Creatinine [Mass ratio] 17.6 mg/mg 10-20 [facility] Laboratory - CoagulationOrde red By: Brianna Souza on 10-28-2023 aPTT Coag (Bld) [Time] 37.7 s High 24.1-36.2 [facility] PT Coag (PPP) [Time] 15.9 s High 11.7-14.9 [facility] Laboratory - Hematology and Cell countsOrdered By: Brianna Souza on 10-28-2023 Erythrocyte distribution width (RBC) [Entitic vol] 43.5 fL 35.1-43.9 [facility] Erythrocyte distribution width (RBC) [Ratio] 12.4 % 11.6-14.6 [facility] Immature granulocytes/100 WBC (Bld) 0.300 % 0.0-0.9 [facility] Comment on above: IG% - Immature Granu locytes (promyelocytes, myelocytes and metamyelocytes) > 1% indicates that a LEFT SHIFT is Present. MCH (RBC) [Entitic mass] 32.4 pg 27.0-32.0 [facility] Nucleated RBC/100 WBC (Bld) [Ratio] 0 % 0-5 [facility] MCHC Auto (RBC) [Mass/Vol]Or dered By: Brianna Souza on 10-28-2023 MCHC (RBC) [Mass/Vol] 33.9 g/dL 32-36 [facility] No Panel InformationOrdered By: Brianna Souza on 10-28-2023 Estimated Creatinine Clearance Calc 49.30 ml/min [facility] Estimated GFR (MDRD) Amer 84 mL/min >60 [facility] Comment on above: GFR Calc Estimated GFR (MDRD) Non-Af Amer 69 mL/min >60 [facility] Comment on above: Non- GFR Calc Platelets bldOrdered By: Rohit Souza on 10-28-2023 Platelets (Bld) [#/Vol] 276 10*3/uL 150-450 [facility] Serum or plasma albumin arian urement (mass/volume)Ordered By: [facility] Sou[facility] on 10-28-2023 Albumin [Mass/Vol] 3.4 g/dL 3.2-5.0 [facility] Serum or plasma albumin/glob ulin mass ratioOrdered By: [facility] on 10-28-2023 Albumin/Globulin [Mass ratio] 0.8 {ratio} 0.9-2.4 [facility] Serum or plasma calcium arian urement (mass/volume)Ordered By: [facility] Harley on 10-28-2023 Calcium [Mass/Vol] 8.9 mg/dL 8.5-10.1 [facility] Serum or plasma creatinine m easurement (mass/volume)Ordered By: [facility] Harley on 10-28-2023 Creatinine [Mass/Vol] 1.08 mg/dL 0.70-1.30 [facility] Comment on above: The validity of the calculated GFR & GFRAA in patients over 70 years has not been determined. Clinical correlation is essential. Serum or plasma urea nitroge n measurement (mass/volume)Ordered By: [facility] Souza on 10-28-2023 Urea nitrogen [Mass/Vol] 19 mg/dL 7-18 [facility] Thin prep Papanicolaou smear with manual screeningOrdered By: [facility] on 10-28-2023 Thin prep Papanicolaou smear with manual screening 16 U/L 15-37 [facility] Thin prep Papanicolaou smear with manual screening 7 5-15 [facility] Basophil percentageOrdered B y: Brianna Souza on 10-26-2023 Basophil percentage < 0.9 mg/dL 0.70-1.30 [facility] No Panel InformationOrdered By: Brianna Souza on 10-26-2023 Bedside Estimated GFR (eGFR) > 60.0000 mL/min >60 [facility] No Panel InformationOrdered By: ASH Hernandez on 09-15-2023 Prostate Specific Antigen Screen 5.65 ng/mL 0.00-4.00 [facility] Comment on above: This test was perfor med using the TPSA assay method [facility] the[facility]. Values obtained with differentassay methods cannot be used interchangably.When changing PSA assays in the course of monitoring apatient, additional sequential testing should be carriedout to confirm baseline values. Prostate Specific Antigen Total 5.65 ng/mL 0.0-4.0 [facility] Comment on above: This test was perfor med using the TPSA assay method for the[employer] chemistry system. Values obtained with differentassay methods cannot be used interchangably.When changing PSA assays in the course of monitoring apatient, additional sequential testing should be carriedout to confirm baseline values. Absolute lymphocyte countOrd ered By: Brianna Souza on 08-05-2023 Lymphocytes Auto (Unsp spec) [#/Vol] 1.10 10*3/uL 0.83-4.51 [facility] Basophil percentageOrdered B y: Brianna Souza on 08-05-2023 Basophils/100 WBC (Bld) 0.7 % 0-1 [facility] Bilirubin [Mass/Vol] 0.70 mg/dL 0.20-1.00 [facility] Comment on above: For patients on eltr ombopag therapy, use of Dimension [place] TBIL is not recommended. Chloride [Moles/Vol] 110 mmol/L 98-107 [facility] Eosinophils/100 WBC (Bld) 5.2 % 0-5 [facility] Glucose [Mass/Vol] 92 mg/dL 74-106 [facility] Neutrophils (Bld) [#/Vol] 3.8 10*3/uL 2.0-7.7 [facility] Neutrophils/100 WBC (Bld) 65.3 % 47-70 [facility] Potassium [Moles/Vol] 4.0 mmol/L 3.5-5.1 [facility] Protein [Mass/Vol] 7.1 g/dL 6.4-8.2 [facility] Sodium [Moles/Vol] 140 mmol/L 136-145 [facility] WBC (Bld) [#/Vol] 5.8 10*3/uL 4.4-11.0 [facility] Blood erythrocytes count (nu mber/volume)Ordered By: Brianna Souza on 08-05-2023 RBC (Bld) [#/Vol] 3.90 10*6/uL 4.6-6.2 [facility] Blood hemoglobin measurement (mass/volume)Ordered By: Brianna Souza on 08-05-2023 Hemoglobin (Bld) [Mass/Vol] 12.5 g/dL 13.0-16.5 [facility] Blood lymphocytes/100 leukoc ytesOrdered By: Brianna Souza on 08-05-2023 Lymphocytes/100 WBC (Bld) 19.1 % 19-41 [facility] Blood monocytes/100 leukocyt esOrdered By: Brianna Souza on 08-05-2023 Monocytes/100 WBC (Bld) 9.4 % 0-[address] [facility] Blood platelet mean volumeOr dered By: Brianna Souza on 08-05-2023 Platelet mean volume (Bld) [Entitic vol] 9.2 fL 6.2-12.0 [facility] Determination of erythrocyte mean corpuscular volume (MCV)Ordered By: Brianna Souza on 08-05-2023 MCV (RBC) [Entitic vol] 95.9 fL 80-[address] [facility] Hematocrit Auto (Bld) [Volum e fraction]Ordered By: Brianna Souza on 08-05-2023 Hematocrit (Bld) [Volume fraction] 37.4 % 40-54 [facility] Laboratory - Chemistry and C hemistry - challengeOrdered By: [facility] on 08-05-2023 ALP [Catalytic activity/Vol] 95 U/L 45-117 [facility] ALT [Catalytic activity/Vol] 20 U/L 16-61 [facility] CO2 [Moles/Vol] 27.0 mmol/L 21.0-32.0 [facility] Globulin (S) [Mass/Vol] 3.7 g/dL 2.2-4.[address] [facility] Urea nitrogen/Creatinine [Mass ratio] 20.7 mg/mg 10-20 [facility] Laboratory - Hematology and Cell countsOrdered By: Brianna Souza on 08-05-2023 Erythrocyte distribution width (RBC) [Entitic vol] 47.2 fL 35.1-43.9 [facility] Erythrocyte distribution width (RBC) [Ratio] 13.4 % 11.6-14.6 [facility] Immature granulocytes/100 WBC (Bld) 0.300 % 0.0-0.9 [facility] Comment on above: IG% - Immature Granu locytes (promyelocytes, myelocytes and metamyelocytes) > 1% indicates that a LEFT SHIFT is Present. MCH (RBC) [Entitic mass] 32.1 pg 27.0-32.0 [facility] Nucleated RBC/100 WBC (Bld) [Ratio] 0 % 0-5 [facility] MCHC Auto (RBC) [Mass/Vol]Or dered By: Brianna Souza on 08-05-2023 MCHC (RBC) [Mass/Vol] 33.4 g/dL 32-36 [facility] No Panel InformationOrdered By: Brianna Souza on 08-05-2023 Estimated Creatinine Clearance Calc 54.89 ml/min [facility] Estimated GFR (MDRD) Amer 95 mL/min >60 [facility] Comment on above: GFR Calc Estimated GFR (MDRD) Non-Af Amer 79 mL/min >60 [facility] Comment on above: Non- GFR Calc Platelets bldOrdered By: Rohit Souza on 08-05-2023 Platelets (Bld) [#/Vol] 261 10*3/uL 150-450 [facility] Serum or plasma albumin arian urement (mass/volume)Ordered By: Brianna Souza on 08-05-2023 Albumin [Mass/Vol] 3.4 g/dL 3.2-5.0 [facility] Serum or plasma albumin/glob ulin mass ratioOrdered By: Brianna Souza on 08-05-2023 Albumin/Globulin [Mass ratio] 0.9 {ratio} 0.9-2.4 [facility] Serum or plasma calcium arian urement (mass/volume)Ordered By: Brianna Souza on 08-05-2023 Calcium [Mass/Vol] 8.7 mg/dL 8.5-10.1 [facility] Serum or plasma creatinine m easurement (mass/volume)Ordered By: Brianna Souza on 08-05-2023 Creatinine [Mass/Vol] 0.97 mg/dL 0.70-1.30 [facility] Comment on above: The validity of the calculated GFR & GFRAA in patients over 70 years has not been determined. Clinical correlation is essential. Serum or plasma urea nitroge n measurement (mass/volume)Ordered By: Brianna Souza on 08-05-2023 Urea nitrogen [Mass/Vol] 20 mg/dL 7-18 [facility] Thin prep Papanicolaou smear with manual screeningOrdered By: Brianna Souza on 08-05-2023 Thin prep Papanicolaou smear with manual screening 16 U/L 15-37 [facility] Thin prep Papanicolaou smear with manual screening 3 5-15 [facility] Basophil percentageOrdered B y: Brianna Souza on 07-27-2023 Creatinine [Mass/Vol] 1.0 mg/dL 0.70-1.30 [facility] No Panel InformationOrdered By: Brianna Souza on 07-27-2023 Bedside Estimated GFR (eGFR) > 60.0000 mL/min >60 [facility] Absolute lymphocyte countOrd ered By: Dr. Souza on 05-19-2023 Lymphocytes Auto (Unsp spec) [#/Vol] 0.89 10*3/uL 0.83-4.51 [facility] Basophil percentageOrdered B y: Dr. Souza on 05-19-2023 Basophils/100 WBC (Bld) 1.0 % 0-1 [facility] Eosinophils/100 WBC (Bld) 17.5 % 0-5 [facility] Neutrophils (Bld) [#/Vol] 2.0 10*3/uL 2.0-7.7 [facility] Neutrophils/100 WBC (Bld) 48.6 % 47-70 [facility] WBC (Bld) [#/Vol] 4.1 10*3/uL 4.4-11.0 [facility] Blood erythrocytes count (nu mber/volume)Ordered By: Dr. Souza on 05-19-2023 RBC (Bld) [#/Vol] 4.28 10*6/uL 4.6-6.2 [facility] Blood hemoglobin measurement (mass/volume)Ordered By: Dr. Souza on 05-19-2023 Hemoglobin (Bld) [Mass/Vol] 12.8 g/dL 13.0-16.5 [facility] Blood lymphocytes/100 leukoc ytesOrdered By: Dr. Souza on 05-19-2023 Lymphocytes/100 WBC (Bld) 21.9 % 19-41 [facility] Blood monocytes/100 leukocyt esOrdered By: Dr. Souza on 05-19-2023 Monocytes/100 WBC (Bld) 10.8 % 0-[address] [facility] Blood platelet mean volumeOr dered By: Dr. Souza on 05-19-2023 Platelet mean volume (Bld) [Entitic vol] 8.8 fL 6.2-12.0 [facility] Determination of erythrocyte mean corpuscular volume (MCV)Ordered By: Dr. Souza on 05-19-2023 MCV (RBC) [Entitic vol] 92.8 fL 80-[address] [facility] Hematocrit Auto (Bld) [Volum e fraction]Ordered By: Dr. Souza on 05-19-2023 Hematocrit (Bld) [Volume fraction] 39.7 % 40-54 [facility] INR in Blood by Coagulation assayOrdered By: Dr. Souza on 05-19-2023 INR Coag (Bld) [Relative time] 1.1 {INR} [facility] Laboratory - CoagulationOrde red By: Dr. Souza on 05-19-2023 aPTT Coag (Bld) [Time] 31.8 s 24.1-36.2 [facility] PT Coag (PPP) [Time] 13.8 s 11.7-14.9 [facility] Laboratory - Hematology and Cell countsOrdered By: Dr. Souza on 05-19-2023 Erythrocyte distribution width (RBC) [Entitic vol] 45.4 fL 35.1-43.9 [facility] Erythrocyte distribution width (RBC) [Ratio] 13.3 % 11.6-14.6 [facility] Immature granulocytes/100 WBC (Bld) 0.200 % 0.0-0.9 [facility] Comment on above: IG% - Immature Granu locytes (promyelocytes, myelocytes and metamyelocytes) > 1% indicates that a LEFT SHIFT is Present. MCH (RBC) [Entitic mass] 29.9 pg 27.0-32.0 [facility] Nucleated RBC/100 W[facility] (Bld) [[facility]] [facility] [Mass/Vol]Or dered By: Dr. Souza on 05-19-2023 MCHC (RBC) [Mass/Vol] 32.2 g/dL 32-36 [facility] Platelets bldOrdered By: Dr. Souza on 05-19-2023 Platelets (Bld) [#/Vol] 265 10*3/uL 150-450 [facility] Office Visiton 05-05-2023 Follow-up visit [id number] VincentAndrasta ew 1940 M Date Provider Department Center 05/05/2023 59531-QSTEPHANIE PACK [facility] [address] No family history on file Level of Service:94907 MS OFFICE/OUTPATIENT ESTABLISHED MOD MDM 30-39 MIN Reason for Visit and Comments: 6 Month Follow-up [671] Normal [facility] PATINSon 05-05-2023 PATINS No changes Normal [facility] Progress Noteon 05-05-2023 Progress Note He denies any more palpitations. For now we will continue metoprolol tartrate 25 mg twice daily. He is questioning if he needs to continue following here or if he can just follow-up in [place] I have advised him that we will schedule a 6-month follow-up with Dr. Dolan and if he feels in 6 months that he remains stable from a cardiac standpoint he can cancel that appointment and continue following with his primary cardiology team. Normal [facility] Progress Note He has not had recurrence even through his 4-week hospital stay with a strep infection into his clavicle bone. He denies any further palpitations at all. For now we will wait and watch and he will continue Eliquis 5 mg twice a day for stroke prevention. We will also continue low-dose metoprolol. Normal [facility] Progress Note [facility] [address] [address] Dept: [phone] Dept Loc: [phone] Visit type: Established : 1940 Reason for Visit: 6 Month Follow-up Assessment and Plan 1. PVC (premature ventricular contraction) Assessment & Plan: He denies any more palpitations. For now we will continue metoprolol tartrate 25 mg twice daily. He is questioning if he needs to continue following here or if he can just follow-up in [place] I have advised him that we will schedule a 6-month follow-up with Dr. Dolan and if he feels in 6 months that he remains stable from a cardiac standpoint he can cancel that appointment and continue following with his primary cardiology team. 2. PAF (paroxysmal atrial fibrillation) (CMS/HCC) ([facility]) - ECG 12 lead - CLINIC PERFORMED 3. Paroxysmal atrial fibrillation (CMS/HCC) ([facility]) Assessment & Plan: He has not had [...] extensive evaluation under the direction of Dr. Pickens. These records are reviewed in detail today [...] currently follows with a nurse practitioner in [place] that worked with Dr. Pickens since he left. Review of Systems Constitutional: [...] tartrate (Lopressor) 25 MG tablet Take 25 (more content not included)... Normal [facility] Absolute lymphocyte countOrd ered By: Dr. Souza on 04-29-2023 Lymphocytes Auto (Unsp spec) [#/Vol] 0.58 10*3/uL 0.83-4.51 [facility] Basophil percentageOrdered B y: Dr. Souza on 04-29-2023 Basophils/100 WBC (Bld) 0.7 % 0-[address] [facility] Bilirubin [Mass/Vol] 0.30 mg/dL 0.20-1.00 [facility] Comment on above: For patients on eltr ombopag therapy, use of Dimension [place] TBIL is not recommended. Chloride [Moles/Vol] 109 mmol/L 98-107 [facility] Eosinophils/100 WBC (Bld) 13.6 % 0-5 [facility] Glucose [Mass/Vol] 120 mg/dL 74-106 [facility] Comment on above: Fasting Glucose resu lt from 100 to 125 mg/dL suggests IMPAIRED HOMEOSTASIS per A.D.A. criteria. Neutrophils (Bld) [#/Vol] 2.3 10*3/uL 2.0-7.7 [facility] Neutrophils/100 WBC (Bld) 56.0 % 47-70 [facility] Potassium [Moles/Vol] 3.6 mmol/L 3.5-5.1 [facility] Protein [Mass/Vol] 6.6 g/dL 6.4-8.2 [facility] Sodium [Moles/Vol] 140 mmol/L 136-145 [facility] WBC (Bld) [#/Vol] 4.0 10*3/uL 4.4-11.0 [facility] Blood erythrocytes count (nu mber/volume)Ordered By: Dr. Souza on 04-29-2023 RBC (Bld) [#/Vol] 3.79 10*6/uL 4.6-6.2 [facility] Blood hemoglobin measurement (mass/volume)Ordered By: Dr. Souza on 04-29-2023 Hemoglobin (Bld) [Mass/Vol] 11.9 g/dL 13.0-16.5 [facility] Blood lymphocytes/100 leukoc ytesOrdered By: Dr. Souza on 04-29-2023 Lymphocytes/100 WBC (Bld) 14.4 % 19-41 [facility] Blood manual differential co mment interpretation (narrative result)Ordered By: Dr. Souza on 04-29-2023 Manual differential comment Dawson (Bld) [Interp] SCANNED [facility] Blood monocytes/100 leukocyt esOrdered By: Dr. Souza on 04-29-2023 Monocytes/100 WBC (Bld) 15.1 % 0-[address] [facility] Blood platelet mean volumeOr dered By: Dr. Souza on 04-29-2023 Platelet mean volume (Bld) [Entitic vol] 9.1 fL 6.2-12.0 [facility] Determination of erythrocyte mean corpuscular volume (MCV)Ordered By: Dr. Souza on 04-29-2023 MCV (RBC) [Entitic vol] 93.4 fL 80-[address] [facility] Hematocrit Auto (Bld) [Volum e fraction]Ordered By: Dr. Souza on 04-29-2023 Hematocrit (Bld) [Volume fraction] 35.4 % 40-54 [facility] Iron (Unsp spec) [Mass/Mass] Ordered By: Brianna Souza on 04-29-2023 Iron [Mass/Vol] 67 ug/dL 65-175 [facility] Iron measurement (mass/mass) Ordered By: Dr. Souza on 04-29-2023 Iron (Unsp spec) [Mass/Mass] 67 ug/dL 65-175 [facility] Iron saturation [Mass fracti on]Ordered By: Brianna Souza on 04-29-2023 Iron Saturation 30.6 % 15.0-55.0 [facility] Laboratory - Chemistry and C hemistry - challengeOrdered By: Dr. Souza on 04-29-2023 ALP [Catalytic activity/Vol] 106 U/L 45-117 [facility] ALT [Catalytic activity/Vol] 18 U/L 16-61 [facility] CO2 [Moles/Vol] 25.0 mmol/L 21.0-32.0 [facility] Cobalamin (Vitamin B12) [Mass/Vol] 340 pg/mL 211-911 [facility] Free T4 [Mass/Vol] 0.98 ng/dL 0.76-1.46 [facility] Globulin (S) [Mass/Vol] 3.6 g/dL 2.2-4.[address] [facility] Urea nitrogen/Creatinine [Mass ratio] 17.8 mg/mg 10-20 [facility] Laboratory - Hematology and Cell countsOrdered By: Dr. Souza on 04-29-2023 Erythrocyte distribution width (RBC) [Entitic vol] 46.7 fL 35.1-43.9 [facility] Erythrocyte distribution width (RBC) [Ratio] 13.7 % 11.6-14.6 [facility] Immature granulocytes/100 WBC (Bld) 0.200 % 0.0-0.9 [facility] Comment on above: IG% - Immature Granu locytes (promyelocytes, myelocytes and metamyelocytes) > 1% indicates that a LEFT SHIFT is Present. MCH (RBC) [Entitic mass] 31.4 pg 27.0-32.0 [facility] Nucleated RBC/100 WBC (Bld) [Ratio] 0 % 0-5 [facility] MCHC Auto (RBC) [Mass/Vol]Or dered By: Dr. Souza on 04-29-2023 MCHC (RBC) [Mass/Vol] 33.6 g/dL 32-36 [facility] Manual differential comment Dawson (Bld) [Interp]Ordered By: Brianna Souza on 04-29-2023 Differential Comment SCANNED [facility] No Panel InformationOrdered By: Dr. Souza on 04-29-2023 Estimated Creatinine Clearance Calc 52.72 ml/min [facility] Estimated GFR (MDRD) Amer 91 mL/min >60 [facility] Comment on above: GFR Calc Estimated GFR (MDRD) Non-Af Amer 75 mL/min >60 [facility] Comment on above: Non- GFR Calc Thyroid Stimulating Hormone (TSH) 1.36 uIU/mL 0.358-3.74 [facility] Total Iron Binding Capacity 219 ug/dL Low 250-450 [facility] Pathologist review Dawson (Unsp spec) [Interp]Ordered By: Brianna Souza on 04-29-2023 Differential Pathologist's Review Reviewed [facility] Comment on above: Previous reported re sult: May foll Edited by: RGOOD on 04/30/23:1403Leukopenia and Normocytic anemia.Luis Bassett M.D. 04/30/23 AMENDED REPORT 04/30/231402 PATH REV previously reported as: March shanna Platelets bldOrdered By: Dr. Souza on 04-29-2023 Platelets (Bld) [#/Vol] 229 10*3/uL 150-450 [facility] Review by pathologistOrdered By: Dr. Souza on 04-29-2023 Pathologist review Dawson ([facility] spec) [Interp] Reviewed [facility] Comment on above: Previous reported re sult: May foll Edited by: ROLY on 04/30/23:1403Leukopenia and Normocytic anemia.Luis Bassett M.D. 04/30/23 AMENDED REPORT 04/30/231402 PATH REV previously reported as: March shanna Serum or plasma albumin arian urement (mass/volume)Ordered By: Dr. Souza on 04-29-2023 Albumin [Mass/Vol] 3.0 g/dL 3.2-5.0 [facility] Serum or plasma albumin/glob ulin mass ratioOrdered By: Dr. Souza on 04-29-2023 Albumin/Globulin [Mass ratio] 0.8 {ratio} 0.9-2.4 [facility] Serum or plasma calcium arian urement (mass/volume)Ordered By: Dr. Souza on 04-29-2023 Calcium [Mass/Vol] 8.8 mg/dL 8.5-10.1 [facility] Serum or plasma cortisol karon surement (mass/volume)Ordered By: Dr. Souza on 04-29-2023 Cortisol [Mass/Vol] 7.90 ug/dL 3.44-22.45 [facility] Comment on above: Adult (AM) 5.27 - 22 .45 ug/dL Adult (PM) 3.44 - 16.76 ug/dLPlease note revised CORTISOL reference range effective 2020. Serum or plasma creatinine m easurement (mass/volume)Ordered By: Dr. Souza on 04-29-2023 Creatinine [Mass/Vol] 1.01 mg/dL 0.70-1.30 [facility] Comment on above: The validity of the calculated GFR & GFRAA in patients over 70 years has not been determined. Clinical correlation is essential. Serum or plasma ferritin karon surement (mass/volume)Ordered By: Dr. Souza on 04-29-2023 Ferritin [Mass/Vol] 45 ng/mL 26-388 [facility] Serum or plasma iron saturat ion measurement (mass fraction)Ordered By: Dr. Souza on 04-29-2023 Iron saturation [Mass fraction] 30.6 % 15.0-55.0 [facility] Serum or plasma urea nitroge n measurement (mass/volume)Ordered By: Dr. Souza on 04-29-2023 Urea nitrogen [Mass/Vol] 18 mg/dL 7-18 [facility] Thin prep Papanicolaou smear with manual screeningOrdered By: Dr. Souza on 04-29-2023 Thin prep Papanicolaou smear with manual screening 16 U/L 15-37 [facility] Thin prep Papanicolaou smear with manual screening 6 5-15 [facility] Absolute lymphocyte countOrd ered By: Kena Heredia on 03-29-2023 Lymphocytes Auto (Unsp spec) [#/Vol] 1.05 10*3/uL 0.83-4.51 [facility] Basophil percentageOrdered B y: Kena Heredia on 03-29-2023 Basophils/100 WBC (Bld) 0.4 % 0-[address] [facility] Bilirubin [Mass/Vol] 0.50 mg/dL 0.20-1.00 [facility] Comment on above: For patients on eltr ombopag therapy, use of Dimension [place] TBIL is not recommended. Chloride [Moles/Vol] 107 mmol/L 98-107 [facility] Eosinophils/100 WBC (Bld) 9.3 % 0-5 [facility] Glucose [Mass/Vol] 92 mg/dL 74-106 [facility] Neutrophils (Bld) [#/Vol] 2.9 10*3/uL 2.0-7.7 [facility] Neutrophils/100 WBC (Bld) 58.1 % 47-70 [facility] Potassium [Moles/Vol] 4.2 mmol/L 3.5-5.1 [facility] Protein [Mass/Vol] 7.1 g/dL 6.4-8.2 [facility] Sodium [Moles/Vol] 138 mmol/L 136-145 [facility] WBC (Bld) [#/Vol] 5.0 10*3/uL 4.4-11.0 [facility] Blood erythrocytes count (nu mber/volume)Ordered By: Kena Heredia on 03-29-2023 RBC (Bld) [#/Vol] 3.90 10*6/uL 4.6-6.2 [facility] Blood hemoglobin measurement (mass/volume)Ordered By: Kena Heredia on 03-29-2023 Hemoglobin (Bld) [Mass/Vol] 12.1 g/dL 13.0-16.5 [facility] Blood lymphocytes/100 leukoc ytesOrdered By: Kena Heredia on 03-29-2023 Lymphocytes/100 WBC (Bld) 20.9 % 19-41 [facility] Blood monocytes/100 leukocyt esOrdered By: Kena Heredia on 03-29-2023 Monocytes/100 WBC (Bld) 11.1 % 0-[address] [facility] Blood platelet mean volumeOr dered By: Kena Heredia on 03-29-2023 Platelet mean volume (Bld) [Entitic vol] 9.4 fL 6.2-12.0 [facility] Determination of erythrocyte mean corpuscular volume (MCV)Ordered By: Kena Heredia on 03-29-2023 MCV (RBC) [Entitic vol] 95.6 fL 80-[address] [facility] Hematocrit Auto (Bld) [Volum e fraction]Ordered By: Kena Heredia on 03-29-2023 Hematocrit (Bld) [Volume fraction] 37.3 % 40-54 [facility] Laboratory - Chemistry and C hemistry - challengeOrdered By: Kena Heredia on 03-29-2023 ALP [Catalytic activity/Vol] 109 U/L 45-117 [facility] ALT [Catalytic activity/Vol] 17 U/L 16-61 [facility] CO2 [Moles/Vol] 25.0 mmol/L 21.0-32.0 [facility] Globulin (S) [Mass/Vol] 3.9 g/dL 2.2-4.[address] [facility] Urea nitrogen/Creatinine [Mass ratio] 24.9 mg/mg 10-20 [facility] Laboratory - Hematology and Cell countsOrdered By: Kena Heredia on 03-29-2023 Erythrocyte distribution width (RBC) [Entitic vol] 47.2 fL 35.1-43.9 [facility] Erythrocyte distribution width (RBC) [Ratio] 13.4 % 11.6-14.6 [facility] Immature granulocytes/100 WBC (Bld) 0.200 % 0.0-0.9 [facility] Comment on above: IG% - Immature Granu locytes (promyelocytes, myelocytes and metamyelocytes) > 1% indicates that a LEFT SHIFT is Present. MCH (RBC) [Entitic mass] 31.0 pg 27.0-32.0 [facility] Nucleated RBC/100 WBC (Bld) [Ratio] 0 % 0-5 [facility] MCHC Auto (RBC) [Mass/Vol]Or dered By: Kena Heredia on 03-29-2023 MCHC (RBC) [Mass/Vol] 32.4 g/dL 32-36 [facility] No Panel InformationOrdered By: Kena Heredia on 03-29-2023 Estimated Creatinine Clearance Calc 55.47 ml/min [facility] Estimated GFR (MDRD) Amer 96 mL/min >60 [facility] Comment on above: GFR Calc Estimated GFR (MDRD) Non-Af Amer 80 mL/min >60 [facility] Comment on above: Non- GFR Calc Platelets bldOrdered By: Neel Heredia on 03-29-2023 Platelets (Bld) [#/Vol] 268 10*3/uL 150-450 [facility] Serum or plasma albumin arian urement (mass/volume)Ordered By: Kena Heredia on 03-29-2023 Albumin [Mass/Vol] 3.2 g/dL 3.2-5.0 [facility] Serum or plasma albumin/glob ulin mass ratioOrdered By: Kena Heredia on 03-29-2023 Albumin/Globulin [Mass ratio] 0.8 {ratio} 0.9-2.4 [facility] Serum or plasma calcium arian urement (mass/volume)Ordered By: Kena Heredia on 03-29-2023 Calcium [Mass/Vol] 9.3 mg/dL 8.5-10.1 [facility] Serum or plasma creatinine m easurement (mass/volume)Ordered By: Kena Heredia on 03-29-2023 Creatinine [Mass/Vol] 0.96 mg/dL 0.70-1.30 [facility] Comment on above: The validity of the calculated GFR & GFRAA in patients over 70 years has not been determined. Clinical correlation is essential. Serum or plasma urea nitroge n measurement (mass/volume)Ordered By: Kena Heredia on 03-29-2023 Urea nitrogen [Mass/Vol] 24 mg/dL 7-18 [facility] Thin prep Papanicolaou smear with manual screeningOrdered By: [facility] Hospital[facility] on [facility]23 Thin prep Papanicolaou smear with manual screening 14 U/L 15-37 [facility] Thin prep Papanicolaou smear with manual screening 6 5-15 [facility] Office Visit (Oncology Surge ry)on 03-12-2023 Follow-up visit Diagnoses/Problems Assessed Seroma of skin or subcutaneous tissue after non-dermatologic procedure (998.13) (L76.34) Orders Seroma of skin or subcutaneous tissue after non-dermatologic procedure Angio Consult for Body Angiography; Status:Active; Requested for:19Mar2023; Patient taking Metformin or Derivatives? : Unknown Radiologist to Determine Optimal Study : Y What are the patient's signs and symptoms? : right groin seroma needs sclerotherapy. Patient Discussion/Summary Mr. Epps is an exceptionally nice 83-year-old male from [facility] presenting with a right heel acral lentiginous melanoma. This is at least 2.5 mm in Breslow depth and there is evidence of residual pigmentation surrounding the biopsy site. The current wound is 2 x 2.5 cm in size. The patient has no clinically palpable lymphadenopathy. The patient's pathology was reviewed and dermatopathology and his case will be presented in multidisciplinary tumor board. The patient was seen by Dr. Souza in medical oncology and had a whole-body PET/CT which did not demonstrate metastatic disease. Surgery 05/07/2021?wide excision right heel melanoma with a 2 cm margin, Integra graft placement, VAC placement. Right inguinal sentinel lymph node biopsy. Pathology?residual melanoma at the right heel with a depth of 1.3 mm. No microsatellitosis. 1 of 2 inguinal sentinel lymph nodes were involved, 0.02 mm deposit with no extracapsular extension. 0/1 popliteal lymph nodes involved Surgery 12/23/2022?right inguinal lymphadenectomy with sartorius flap reconstruction; excision pigmented dermal lesion Pathology?4 of 10 lymph nodes involved with melanoma. Extracapsular extension seen in the largest lesion. The dermal pigmented lesion did not represent in-transit disease [ ] Keep drain in place and change the overlying dressing to prevent saturation and maceration of the surrounding skin. Will refer to Dr Ava Salazar in IR to perform sclerotherapy or other indicated procedures. Okay to proceed with RT with Dr. Howell while the drain is in place. [ ] Follow-up with Dr. Souza in medical oncology [ ] I will continue to be available for the patient at any time. The patient asked very appropriate questions that were answered to the best of my ability with the current information at hand. He knows to call with any questions or concerns that arise in the interim. A total of 20 minutes was spent evaluating the patient's drain and counseling the patient regarding the plan Chief Complaint Drain check following seroma History of Present IllnessMr. Epps presented as a 81-year-old male referred by Dr. 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 Due to lack of healing and an [...] site. The patient has not seen a caving guide but denies any other lesions of concern on his lower extremity or elsewhere on his body. Surgery 05/07/2021?wide excision right heel melanoma with a 2 cm margin, Integra graft placement, VAC placement. Right inguinal sentinel lymph node biopsy. Pathology?residual melanoma at the right heel with a depth of 1.3 mm. No microsatellitosis. 1 of 2 inguinal sentinel lymph nodes were involved, 0.02 mm deposit with no extracapsular extension. 0/1 popliteal lymph nodes involved Completed adjuvant Keytruda Surgery 12/23/2022?right inguinal lymphadenectomy with sartorius flap reconstruction; excision pigmented dermal lesion Pathology?4 of 10 lymph nodes involved with melanoma. Extracapsular extension seen in the largest lesion. The dermal pigmented lesion did not represent in-transit disease 02/25/2023 - Drain assessment. The patient returns after recent hospitalization with an intrathoracic abscess operated on by Dr. María Boggs. He is recovering well after that procedure. Continues on Antibiotics 03/05/2023 -seroma drain placed to decompress the seroma cavity due to upcoming Radiation Therapy with Dr. Chuck Howell 03/12/2023?drainage around the newly placed seroma catheter left concern for undrained fluid collections or and malfunctioning drain. He was seen in clinic today and his drain is not kinked and was flushed gently noting the there was easy return of fluid. He has no undrained fluid collections. There is some fluid that leaks around the drain with pressure ROS: The patient has good performance status and is active daily. Cardiac: No chest pain, palpitations or heart attacks Pu (more content not included)... Normal [facility] Tobacco Screening.on 023 Fall risk assessment a) No falls within the last year [facility] [employer]avo and Lisa [address] DO Work Phone: Tobacco use status [facility] b) No M -[employer]iqu[employer] Gustavo and Lisa [address] DO Work Phone: Tobacco Screening. Adult [facility] [employer] [address] DO Work Phone: Basophil percentageOrdered B y: Dr. Mcgarry on 03-11-2023 Basophil percentage 3.2 mg/dL 2.5-4.9 [facility] Chloride [Moles/Vol] 107 mmol/L 98-107 [facility] Glucose [Mass/Vol] 82 mg/dL 74-106 [facility] Potassium [Moles/Vol] 4.3 mmol/L 3.5-5.1 [facility] Sodium [Moles/Vol] 138 mmol/L 136-145 [facility] Laboratory - Chemistry and C hemistry - challengeOrdered By: Dr. Mcgarry on 03-11-2023 CO2 [Moles/Vol] 28.0 mmol/L 21.0-32.0 [facility] Urea nitrogen/Creatinine [Mass ratio] 21.0 mg/mg 10-20 [facility] Laboratory - Chemistry and C hemistry - challengeOrdered By: Dr. Dolan on 03-11-2023 Free T4 [Mass/Vol] 0.85 ng/dL 0.76-1.46 [facility] No Panel InformationOrdered By: Dr. Mcgarry on 03-11-2023 Estimated GFR (MDRD) Amer 92 mL/min >60 [facility] Comment on above: GFR Calc Estimated GFR (MDRD) Non-Af Amer 76 mL/min >60 [facility] Comment on above: Non- GFR Calc No Panel InformationOrdered By: Dr. Dolan on 03-11-2023 Free Triiodothyronine (T3) pg/dL 1.9 pg/mL 2.18-3.98 [facility] Thyroid Stimulating Hormone (TSH) 2.65 uIU/mL 0.358-3.74 [facility] No Panel InformationOrdered By: Dr. Mcdonald on 03-11-2023 Prostate Specific Antigen Total 7.85 ng/mL 0.0-4.0 [facility] Comment on above: This test was perfor med using the TPSA assay method [facility]. Values obtained with differentassay methods cannot be used interchangably.When changing PSA assays in the course of monitoring apatient, additional sequential testing should be carriedout to confirm baseline values. Serum or plasma albumin arian urement (mass/volume)Ordered By: Dr. Mcgarry on 03-11-2023 Albumin [Mass/Vol] 3.0 g/dL 3.2-5.0 [facility] Serum or plasma calcium arian urement (mass/volume)Ordered By: Dr. Mcgarry on 03-11-2023 Calcium [Mass/Vol] 9.4 mg/dL 8.5-10.1 [facility] Serum or plasma creatinine m easurement (mass/volume)Ordered By: Dr. Mcgarry on 03-11-2023 Creatinine [Mass/Vol] 1.00 mg/dL 0.70-1.30 [facility] Comment on above: The validity of the calculated GFR & GFRAA in patients over 70 years has not been determined. Clinical correlation is essential. Serum or plasma urea nitroge n measurement (mass/volume)Ordered By: Dr. Mcgarry on 03-11-2023 Urea nitrogen [Mass/Vol] 21 mg/dL 7-18 [facility] .Auto Diffon 03-08-2023 Basophil, Absolute 0.0 10 3/mcL Normal 0.0-0.3 [facility] ([place] Comment on above: Performed By: #### G FR, ADIFF, ANEU, CBC, BMP #### [address] [address] Basophils/100 WBC (Bld) 0.7 % Normal 0.0-2.5 [facility] ([place] Comment on above: Performed By: #### Alex FR, ADIFF, ANEU, CBC, BMP #### [address] [address] Eosinophil, Absolute 1.0 10 3/mcL High 0.0-0.7 [facility] ([place] Comment on above: Performed By: #### Alex FR, ADIFF, ANEU, CBC, BMP #### [address] [address] Eosinophils/100 WBC (Bld) 16.1 % High 0.0-6.0 [facility] ([place]) Comment on above: Performed By: #### G FR, ADIFF, ANEU, CBC, BMP #### [address] [address] Lymphocyte, Absolute 1.8 10 3/mcL Normal 0.9-4.3 [facility] ([place] Comment on above: Performed By: #### Alex FR, ADIFF, ANEU, CBC, BMP #### [address] [address] Lymphocytes/100 WBC (Bld) 29.3 % Normal 20.0-40.0 [facility] ([place] Comment on above: Performed By: #### G FR, ADIFF, ANEU, CBC, BMP #### [address] [address] Monocyte, Absolute 0.6 10 3/mcL Normal 0.1-1.4 [facility] ([place] Comment on above: Performed By: #### G FR, ADIFF, ANEU, CBC, BMP #### [address] [address] Monocytes/100 WBC (Bld) 10.1 % Normal 2.0-13.0 [facility] ([place] Comment on above: Performed By: #### G FR, ADIFF, ANEU, CBC, BMP #### [address] [address] Neutrophils/100 WBC (Bld) 43.8 % Low 50.0-75.0 [facility] ([place] Comment on above: Performed By: #### G FR, ADIFF, ANEU, CBC, BMP #### [address] [address] .GFRon 03-08-2023 GFR >60 Normal [facility] ([place] Comment on above: Result Comment: GFR Population mean for , Non- Americans Ages 20-29 = 116 mL/min/1.73 sq.m. Ages 30-39 = 107 mL/min/1.73 sq.m. Ages 40-49 = 99 mL/min/1.73 sq.m. Ages 50-59 = 93 mL/min/1.73 sq.m. Ages 60-69 = 85 mL/min/1.73 sq.m. Ages 70+ = 75 mL/min/1.73 sq.m. Chronic Kidney Disease: Less than 60 mL/min/1.73 square meters End Stage Renal Disease: Less than 15 mL/min/1.73 square meters Performed By: #### G FR, ADIFF, ANEU, CBC, BMP #### [address] [address] GFR Non- >60 Normal [facility] ([place] Comment on above: Result Comment: GFR Population mean for , Non- Americans Ages 20-29 = 116 mL/min/1.73 sq.m. Ages 30-39 = 107 mL/min/1.73 sq.m. Ages 40-49 = 99 mL/min/1.73 sq.m. Ages 50-59 = 93 mL/min/1.73 sq.m. Ages 60-69 = 85 mL/min/1.73 sq.m. Ages 70+ = 75 mL/min/1.73 sq.m. Chronic Kidney Disease: Less than 60 mL/min/1.73 square meters End Stage Renal Disease: Less than 15 mL/min/1.73 square meters Performed By: #### G FR, ADIFF, ANEU, CBC, BMP #### [address] [address] .NEUABSon 03-08-2023 Neutrophil, Absolute 2.7 10 3/mcL Normal 2.3-8.1 [facility] ([place] Comment on above: Performed By: #### G FR, ADIFF, ANEU, CBC, BMP #### [address] [address] [facility] BUN/Creatinine Ratio 18.4 ratio Normal 10.0-22.0 [facility] ([place] Comment on above: Performed By: #### G FR, ADIFF, ANEU, CBC, BMP #### [address] [address] Calcium [Mass/Vol] 9.1 mg/dL Normal 8.7-10.4 [facility] [place] Comment on above: Performed By: #### G FR, ADIFF, ANEU, CBC, BMP #### [address] [address] Chloride [Moles/Vol] 104 mmol/L Normal 98-110 [facility] ([place] Comment on above: Performed By: #### G FR, ADIFF, ANEU, CBC, BMP #### [address] [address] CO2 [Moles/Vol] 26 mmol/L Normal 22-32 [facility] ([place] Comment on above: Performed By: #### Alex TONEY, MATTHEW ANEU, CBC, BMP #### [address] [address] Creatinine [Mass/Vol] 0.98 mg/dL Normal 0.60-1.40 [facility] ([place]) Comment on above: Performed By: #### Alex TONEY, ADJUNIOR, ANEU, CBC, BMP #### [address] [address] Electrolyte Balance 9.0 mEq/L Normal 4.0-15.0 [facility] ([place]) Comment on above: Performed By: #### Alex TONEY, MATTHEW ANEU, CBC, BMP #### [address] [address] Glucose [Mass/Vol] 98 mg/dL Normal 82-115 [facility] [place] Comment on above: Performed By: #### Alex TONEY, MATTHEW, ANEU, CBC, BMP #### [address] [address] Potassium [Moles/Vol] 4.4 mmol/L Normal 3.5-5.0 [facility] ([place] Comment on above: Performed By: #### Alex FR, ADJUNIOR, ANEU, CBC, BMP #### [address] [address] Sodium [Moles/Vol] 139 mmol/L Normal 136-145 [facility] [place] Comment on above: Performed By: #### Alex FR, ADIFF, ANEU, CBC, BMP #### [address] [address] Urea nitrogen [Mass/Vol] 18.0 mg/dL Normal 8.0-22.0 [facility] ([place] Comment on above: Performed By: #### lAex FR, ADIFF, ANEU, CBC, BMP #### [address] [address] CBCon 03-08-2023 Erythrocyte distribution width (RBC) [Ratio] 14.0 % Normal 11.5-15.5 [facility] ([place] Comment on above: Performed By: #### G FR, ADIFF, ANEU, CBC, BMP #### [place] [address] Hematocrit (Bld) [Volume fraction] 32.5 % Low 40.0-52.0 [facility] ([place] Comment on above: Performed By: #### Alex FR, ADIFF, ANEU, CBC, BMP #### [place] [address] Hgb 10.9 G/dL Low 13.0-17.5 [facility] ([place] Comment on above: Performed By: #### Alex FR, ADIFF, ANEU, CBC, BMP #### [place] [address] MCH (RBC) [Entitic mass] 31.1 pg Normal 27.0-33.0 [facility] ([place] Comment on above: Performed By: #### Alex FR, ADIFF, ANEU, CBC, BMP #### [place] [address] MCHC 33.5 G/dL Normal 32.0-36.0 [facility] ([place] Comment on above: Performed By: #### Alex FR, ADIFF, ANEU, CBC, BMP #### [place] [address] MCV (RBC) [Entitic vol] 92.9 fL Normal 81.0-100.0 [facility] ([place] Comment on above: Performed By: #### Alex FR, ADIFF, ANEU, CBC, BMP #### [place] [address] Platelet 364 10 3/mcL Normal 150-450 [facility] ([place] Comment on above: Performed By: #### G FR, ADIFF, ANEU, CBC, BMP #### [place] [address] Platelet mean volume (Bld) [Entitic vol] 7.6 fL Normal 6.4-10.5 [facility] ([place] Comment on above: Performed By: #### G FR, ADIFF, ANEU, CBC, BMP #### [facility] [address] [place] [address] RBC 3.50 10 6/mcL Low 4.50-6.00 [facility] ([place] Comment on above: Performed By: #### G , MATTHEW ANEU, CBC, BMP #### [facility] [address] [place] [address] WBC 6.2 10 3/mcL Normal 4.5-10.8 [facility] ([place] Comment on above: Performed By: #### G FR, ADJUNIOR, ANEU, CBC, BMP #### [facility] [address] [place] [address] Blood Pressure Cuff Sizeon 0 03-05-2023 Fall risk assessment a) No falls within the last year [facility] Work Phone: Tobacco use status CPHS b) No M [facility] Work Phone: Blood Pressure Cuff Size Adult [facility] Work Phone: Office Visit (Oncology Surge ry)on 03-05-2023 Follow-up visit Diagnoses/Problems Assessed Postoperative seroma of subcutaneous tissue after non-dermatologic procedure (998.13) (L76.34) Patient Discussion/Summary Mr. Epps is an exceptionally nice 83-year-old male from [facility] presenting with a right heel acral lentiginous melanoma. This is at least 2.5 mm in Breslow depth and there is evidence of residual pigmentation surrounding the biopsy site. The current wound is 2 x 2.5 cm in size. The patient has no clinically palpable lymphadenopathy. The patient's pathology was reviewed and dermatopathology and his case will be presented in multidisciplinary tumor board. The patient was seen by Dr. Souza in medical oncology and had a whole-body PET/CT which did not demonstrate metastatic disease. Surgery 05/07/2021?wide excision right heel melanoma with a 2 cm margin, Integra graft placement, VAC placement. Right inguinal sentinel lymph node biopsy. Pathology?residual melanoma at the right heel with a depth of 1.3 mm. No microsatellitosis. 1 of 2 inguinal sentinel lymph nodes were involved, 0.02 mm deposit with no extracapsular extension. 0/1 popliteal lymph nodes involved Surgery 12/23/2022?right inguinal lymphadenectomy with sartorius flap reconstruction; excision pigmented dermal lesion Pathology?4 of 10 lymph nodes involved with melanoma. Extracapsular extension seen in the largest lesion. The dermal pigmented lesion did not represent in-transit disease [ ] Drain replaced for seroma. Okay to proceed with RT with Dr. Howell while the drain is in place. The patient will update me weekly on outputs to determine the appropriate time for drain removal [ ] Follow-up with Dr. Souza in medical oncology [ ] I will continue to be available for the patient at any time. The patient asked very appropriate questions that were answered to the best of my ability with the current information at hand. He knows to call with any questions or concerns that arise in the interim. A total of 30 minutes was spent evaluating the patient's seroma with ultrasound and placing his drain. Chief Complaint Right heel melanoma Right inguinal silvia recurrence Seroma after drain removal History of Present IllnessMr. Epps presented as a 81-year-old male referred by Dr. 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 Due to lack of healing and an [...] site. The patient has not seen a caving guide but denies any other lesions of concern on his lower extremity or elsewhere on his body. Surgery 05/07/2021?wide excision right heel melanoma with a 2 cm margin, Integra graft placement, VAC placement. Right inguinal sentinel lymph node biopsy. Pathology?residual melanoma at the right heel with a depth of 1.3 mm. No microsatellitosis. 1 of 2 inguinal sentinel lymph nodes were involved, 0.02 mm deposit with no extracapsular extension. 0/1 popliteal lymph nodes involved Completed adjuvant Keytruda Surgery 12/23/2022?right inguinal lymphadenectomy with sartorius flap reconstruction; excision pigmented dermal lesion Pathology?4 of 10 lymph nodes involved with melanoma. Extracapsular extension seen in the largest lesion. The dermal pigmented lesion did not represent in-transit disease 02/25/2023 - Drain assessment. The patient returns after recent hospitalization with an intrathoracic abscess operated on by Dr. María Boggs. He is recovering well after that procedure. Continues on Antibiotics 03/05/2023 - After recent inguinal drain removal, the patient developed a recurrent seroma. Asymptomatic.Due to upcoming Radiation Therapy with Dr. Chuck Howell, plan was for placement of a drain to decompress this cavity ROS: The patient has good performance status and is active daily. Cardiac: No chest pain, palpitations or heart attacks Pulmonary: No asthma, bronchitis, or COPD. Left chest incision is well approximated HEENT: right eye vision change GI: No constipation, diarrhea, or bloody bowel movements : No changes in his urinary habits recently Musculoskeletal: Ambulating well. Decreased right lower extremity edema. RIght knee is sore again Skin: Heel has healed very well. Multiple nonmelanoma skin cancers in the past Heme: No bleeding or thrombosis issues Endo: hypothyroid Lymph: Right inguinal incision healed. Large soft seroma palpable Psych: No reported anxiety or depression All other systems reviewed and negative Physical exa (more content not included)... Normal [facility] .Auto Diffon 03-01-2023 Basophil, Absolute 0.0 10 3/mcL Normal 0.0-0.2 [facility] ([place] Comment on above: Performed By: #### B MP, ADIFF, GFR, ANEU, CBC #### [address] [address] Basophils/100 WBC (Bld) 0.4 % Normal 0.0-2.5 [facility] ([place] Comment on above: Performed By: #### B MP, ADIFF, GFR, ANEU, CBC #### [address] [address] Eosinophil, Absolute 1.1 10 3/mcL High 0.0-0.4 [facility] ([place]) Comment on above: Performed By: #### B MP, ADIFF, GFR, ANEU, CBC #### [address] [address] Eosinophils/100 WBC (Bld) 14.5 % High 0.0-7.0 [facility] ([place] Comment on above: Performed By: #### B MP, ADIFF, GFR, ANEU, CBC #### [address] [address] Lymphocyte, Absolute 1.9 10 3/mcL Normal 0.8-3.9 [facility] ([place] Comment on above: Performed By: #### B MP, ADIFF, GFR, ANEU, CBC #### [address] [address] Lymphocytes/100 WBC (Bld) 24.3 % Normal 10.0-50.0 [facility] ([place] Comment on above: Performed By: #### B MP, ADIFF, GFR, ANEU, CBC #### [address] [address] Monocyte, Absolute 0.7 10 3/mcL Normal 0.2-1.0 [facility] ([place] Comment on above: Performed By: #### B MP, ADIFF, GFR, ANEU, CBC #### [address] [address] Monocytes/100 WBC (Bld) 9.1 % Normal 1.7-13.0 [facility] [place] Comment on above: Performed By: #### B MP, ADIFF, GFR, ANEU, CBC #### [address] [address] Neutrophils/100 WBC (Bld) 51.7 % Normal 37.0-80.0 [facility] ([place] Comment on above: Performed By: #### B MP, ADIFF, GFR, ANEU, CBC #### [address] [address] .GFRon 03-01-2023 GFR Non- 65 ml/min/1.73sqm Normal [facility] ([place] Comment on above: Result Comment: GFR Population mean for , Non- Americans Ages 20-29 = 116 mL/min/1.73 sq.m. Ages 30-39 = 107 mL/min/1.73 sq.m. Ages 40-49 = 99 mL/min/1.73 sq.m. Ages 50-59 = 93 mL/min/1.73 sq.m. Ages 60-69 = 85 mL/min/1.73 sq.m. Ages 70+ = 75 mL/min/1.73 sq.m. Chronic Kidney Disease: Less than 60 mL/min/1.73 square meters End Stage Renal Disease: Less than 15 mL/min/1.73 square meters Performed By: #### B MP, ADIFF, GFR, ANEU, CBC #### [address] [address] GFR 79 ml/min/1.73sqm Normal [facility] ([place] Comment on above: Result Comment: GFR Population mean for , Non- Americans Ages 20-29 = 116 mL/min/1.73 sq.m. Ages 30-39 = 107 mL/min/1.73 sq.m. Ages 40-49 = 99 mL/min/1.73 sq.m. Ages 50-59 = 93 mL/min/1.73 sq.m. Ages 60-69 = 85 mL/min/1.73 sq.m. Ages 70+ = 75 mL/min/1.73 sq.m. Chronic Kidney Disease: Less than 60 mL/min/1.73 square meters End Stage Renal Disease: Less than 15 mL/min/1.73 square meters Performed By: #### B MP, ADIFF, GFR, ANEU, CBC #### [address] [address] .NEUABSon 03-01-2023 Neutrophil, Absolute 4.1 10 3/mcL Normal 2.9-6.2 [facility] ([place] Comment on above: Performed By: #### B MP, ADIFF, GFR, ANEU, CBC #### [address] [address] BMPon 03-01-2023 BUN/Creatinine Ratio 12 ratio Normal 7-27 [facility] ([place] Comment on above: Performed By: #### B MP, ADIFF, GFR, ANEU, CBC #### [address] [address] Calcium [Mass/Vol] 8.7 mg/dL Normal 8.4-10.2 [facility] [place] Comment on above: Performed By: #### B MP, ADIFF, GFR, ANEU, CBC #### [place] [address] Chloride [Moles/Vol] 101 mmol/L Normal 98-107 [facility] ([place] Comment on above: Performed By: #### B MP, ADIFF, GFR, ANEU, CBC #### [place] [address] CO2 [Moles/Vol] 26 mmol/L Normal 23-31 [facility] ([place] Comment on above: Performed By: #### B MP, ADIFF, GFR, ANEU, CBC #### [place] [address] Creatinine [Mass/Vol] 1.08 mg/dL Normal 0.70-1.30 [facility] ([place]) Comment on above: Performed By: #### B MP, ADIFF, GFR, ANEU, CBC #### [place] [address] Electrolyte Balance 0.0 mEq/L Low 4.0-15.0 [facility] ([place] Comment on above: Performed By: #### B MP, ADIFF, GFR, ANEU, CBC #### [place] [address] Glucose [Mass/Vol] 118 mg/dL High 83-110 [facility] [place] Comment on above: Performed By: #### B MP, ADIFF, GFR, ANEU, CBC #### [place] [address] Potassium [Moles/Vol] 4.3 mmol/L Normal 3.5-5.1 [facility] ([place] Comment on above: Performed By: #### B MP, ADIFF, GFR, ANEU, CBC #### [place] [address] Sodium [Moles/Vol] 127 mmol/L Low 136-145 [facility] [place] Comment on above: Performed By: #### B MP, ADIFF, GFR, ANEU, CBC #### [place] [address] Urea nitrogen [Mass/Vol] 13 mg/dL Normal 7-18 [facility] ([place] Comment on above: Performed By: #### B MP, ADIFF, GFR, ANEU, CBC #### [place] [id number] CBCon 03-01-2023 Erythrocyte distribution width (RBC) [Ratio] 13.9 % Normal 11.5-14.5 [facility] ([place] Comment on above: Performed By: #### B MP, ADIFF, GFR, ANEU, CBC #### [place] [address] Hematocrit (Bld) [Volume fraction] 32.8 % Low 42.0-52.0 [facility] ([place] Comment on above: Performed By: #### B MP, ADIFF, GFR, ANEU, CBC #### [place] [address] Hgb 11.1 G/dL Low 14.0-18.0 [facility] ([place] Comment on above: Performed By: #### B MP, ADIFF, GFR, ANEU, CBC #### [place] [address] MCH (RBC) [Entitic mass] 30.9 pg Normal 27.0-31.2 [facility] ([place] Comment on above: Performed By: #### B MP, ADIFF, GFR, ANEU, CBC #### [place] [address] MCHC 33.8 G/dL Normal 31.8-35.4 [facility] ([place] Comment on above: Performed By: #### B MP, ADIFF, GFR, ANEU, CBC #### [place] [address] MCV (RBC) [Entitic vol] 91.7 fL Normal 80.0-94.0 [facility] [place] Comment on above: Performed By: #### B MP, ADIFF, GFR, ANEU, CBC #### [address] [address] Platelet 388 10 3/mcL Normal 130-400 [facility] ([place] Comment on above: Performed By: #### B MP, ADIFF, GFR, ANEU, CBC #### [address] [address] Platelet mean volume (Bld) [Entitic vol] 7.9 fL Normal 7.4-10.4 [facility] ([place] Comment on above: Performed By: #### B MP, ADIFF, GFR, ANEU, CBC #### [address] [address] RBC 3.57 10 6/mcL Low 4.04-6.13 [facility] ([place] Comment on above: Performed By: #### B MP, ADIFF, GFR, ANEU, CBC #### [address] [address] WBC 7.9 10 3/mcL Normal 4.6-10.8 [facility] ([place] Comment on above: Performed By: #### B MP, ADIFF, GFR, ANEU, CBC #### [address] [address] LABORATORYOrdered By: Rommel Gomez on 03-01-2023 Basophil, Absolute 0.0 103/mcL Invalid Interpretation Code 0.0 - 0.2 10^3/mcL AO Workflow SS Basophils/100 WBC (Bld) 0.4 % Invalid Interpretation Code 0.0 - 2.5 % AO Workflow SS Eosinophil, Absolute 1.1 103/mcL Invalid Interpretation Code 0.0 - 0.4 10^3/mcL AO Workflow SS Eosinophils/100 WBC (Bld) 14.5 % Invalid Interpretation Code 0.0 - 7.0 % AO Workflow SS Erythrocyte distribution width (RBC) [Ratio] 13.9 % Invalid Interpretation Code 11.5 - 14.5 % AO Workflow SS Hematocrit (Bld) [Volume fraction] 32.8 % Invalid Interpretation Code 42.0 - 52.0 % AO Workflow SS Hemoglobin (Bld) [Mass/Vol] 11.1 G/dL Invalid Interpretation Code 14.0 - 18.0 G/dL AO Workflow SS Lymphocyte, Absolute 1.9 103/mcL Invalid Interpretation Code 0.8 - 3.9 10^3/mcL AO Workflow SS Lymphocytes/100 WBC (Bld) 24.3 % Invalid Interpretation Code 10.0 - 50.0 % AO Workflow SS MCH (RBC) [Entitic mass] 30.9 pg Invalid Interpretation Code 27.0 - 31.2 pg AO Workflow SS MCHC 33.8 G/dL Invalid Interpretation Code 31.8 - 35.4 G/dL AO Workflow SS MCV (RBC) [Entitic vol] 91.7 fL Invalid Interpretation Code 80.0 - 94.0 fL AO Workflow SS Monocyte, Absolute 0.7 103/mcL Invalid Interpretation Code 0.2 - 1.0 10^3/mcL AO Workflow SS Monocytes/100 WBC (Bld) 9.1 % Invalid Interpretation Code 1.7 - 13.0 % AO Workflow SS Neutrophil, Absolute 4.1 103/mcL Invalid Interpretation Code 2.9 - 6.2 10^3/mcL AO Workflow SS Neutrophils/100 WBC (Bld) 51.7 % Invalid Interpretation Code 37.0 - 80.0 % AO Workflow SS Platelet mean volume (Bld) [Entitic vol] 7.9 fL Invalid Interpretation Code 7.4 - 10.4 fL AO Workflow SS Platelets (Bld) [#/Vol] 388 103/mcL Invalid Interpretation Code 130 - 400 10^3/mcL AO Workflow SS RBC (Bld) [#/Vol] 3.57 106/mcL Invalid Interpretation Code 4.04 - 6.13 10^6/mcL AO Workflow SS WBC (Bld) [#/Vol] 7.9 103/mcL Invalid Interpretation Code 4.6 - 10.8 10^3/mcL AO Workflow SS LABORATORYOrdered By: SYSTEM SYSTEM on 03-01-2023 Calcium [Mass/Vol] 8.7 mg/dL Invalid Interpretation Code 8.4 - 10.2 mg/dL AO ADM SS Chloride [Moles/Vol] 101 mmol/L Invalid Interpretation Code 98 - 107 mmol/L AO ADM SS CO2 [Moles/Vol] 26 mmol/L Invalid Interpretation Code 23 - 31 mmol/L AO ADM SS Creatinine [Mass/Vol] 1.08 mg/dL Invalid Interpretation Code 0.70 - 1.30 mg/dL AO ADM SS Electrolyte Balance 0.0 mEq/L Invalid Interpretation Code 4.0 - 15.0 mEq/L AO ADM SS GFR 79 ml/min/1.73sqm Invalid Interpretation Code AO Chemistry S GFR Non- 65 ml/min/1.73sqm Inval id Interpretation Code AO Chemistry S Glucose [Mass/Vol] 118 mg/dL Invalid Interpretation Code 83 - 110 mg/dL AO ADM SS Potassium [Moles/Vol] 4.3 mmol/L Invalid Interpretation Code 3.5 - 5.1 mmol/L AO ADM SS Sodium [Moles/Vol] 127 mmol/L Invalid Interpretation Code 136 - 145 mmol/L AO ADM SS Urea nitrogen [Mass/Vol] 13 mg/dL Invalid Interpretation Code 7 - 18 mg/dL AO ADM SS Urea nitrogen/Creatinine [Mass ratio] 12 ratio Invalid Interpretation Code 7 - 27 ratio AO ADM SS ID - Hospital Follow Upon ID - Hospital Follow Up Chief Complaint Visit For: Other A telephone visit (audio only) between the patient (at the originating site) and the provider (at the distant site) was utilized to provide this telehealth service. 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 Doing well after 20 day SNF stay and is now at home. No fevers, diarrhea, abd pain, rashes. Weekly safety labs stable. Seen recently by his thoracic surgeon (Dr. Boggs) 1 who removed drain and F/U CXR revealing improved RUL pleural involvement. Overall much better. Other issues are 1. Hx metastatic melanoma (primary heel lesion with + inguinal lymph nodes) for which he has received immunotherapy through 2. a L mediport (last infusion 06/19). Plan: 1. Continue ceftriaxone 2gms/day via R PICC through 03/12 to complete 6 wk course 2. PICC to be removed after last dose 01/12. 3. Continue with weekly CBC, BMP and ESR 4. Pt updated on his ID plan and he understands 5. Spoke with [facility] Pharmacist ([phone]) to confirm plan for antibiotics/picc/weekly labs. 6. F/U with ID as needed 1 Amended By: Mohamud Nguyen; Feb 26 2023 8:20 PM ESTActive Problems Abscess of sternal region (682.2) (L02.213) Cellulitis of right lower extremity (682.6) (L03.115) Malignant melanoma of right heel (172.7) (C43.71) Allergies No Known Drug Allergies Recorded By: Hussein Bennett; 04/22/2021 8:02:18 AM Current Meds Alfuzosin HCl ER 10 MG Oral Tablet Extended Release 24 Hour; take 1 tablet by mouth once daily; Therapy: 18Aug2022 to Recorded Rx By: HARRY; Dispense: 30 Days ; #:30; Refill: 0; GISELE = N; Record; Last Updated By: Toñito Watson; 01/08/2023 1:45:17 PM amLODIPine Besylate 5 MG Oral Tablet; TAKE 1 TABLET DAILY; Therapy: 07Oct2021 to Recorded Dispense: 0 Days ; #: Sufficient Tablet; Refill: 0; GISELE = N; Record; Last Updated By: Meghan Edmondson; 02/26/2023 2:40:54 PM Betamethasone Dipropionate Aug 0.05 % External Cream; APPLY CREAM TO THE BACK TWICE DAILY FOR 2 WEEKS, THEN DO NOT APPLY FOR ONE WEEK; Therapy: 21Apr2022 to Recorded Rx By: SHARDA; Dispense: 30 Days ; #:100; Refill: 0; GISELE = N; Record; Last Updated By: Toñito Watson; 01/08/2023 1:45:17 PM Eliquis 5 MG Oral Tablet; Take 1 tablet twice daily; Therapy: 12May2022 to Recorded Dispense: 0 Days ; #:180 Tablet; Refill: 3; GISELE = N; Record; Last Updated By: Meghan Edmondson; 02/26/2023 2:40:54 PM Glucosamine 500 MG Oral Capsule; TAKE DIRECTED; Therapy: (Recorded:26Feb2023) to Recorded Dispense: 0 Days ; #: Sufficient Capsule; Refill: 0; GISELE = N; Record; Last Updated By: Meghan Edmondson; 02/26/2023 2:40:53 PM Levothyroxine Sodium 112 MCG Oral Tablet; TAKE 1 TABLET BY MOUTH ONCE DAILY; Therapy: 06Nov2022 to Recorded Rx By: ; Dispense: 30 Days ; #:30; Refill: 0; GISELE = N; Record; Last Updated By: Meghan Edmondson; 02/26/2023 2:40:54 PM Multi Vitamin Mens TABS; TAKE 1 TABLET DAILY; Therapy: (Recorded:26Feb2023) to Recorded Dispense: 0 Days ; #: Sufficient Each; Refill: 0; GISELE = N; Record; Last Updated By: Meghan Edmondson; 02/26/2023 2:40:53 PM NAC 600 MG Oral Capsule; TAKE 1 CAPSULE BY MOUTH TWICE DAILY; Therapy: 18Sep2022 to Recorded Rx By: BETHANY; Dispense: 90 Days ; #:180; Refill: 0; GISELE = N; Record; Last Updated By: Cierra Wallace; 01/08/2023 12:13:33 PM Omeprazole 40 MG Oral Capsule Delayed Release; take 1 capsule by mouth once daily NEEDED; Therapy: 26Dec2020 to Recorded Rx By: BETHANY; Dispense: 0 Days ; #: Sufficient Capsule; Refill: 0; GISELE = N; Record; Last Updated By: Meghan Edmondson; 02/26/2023 2:40:53 PM oxyCODONE HCl - 5 MG Oral Tablet; TAKE 1 TABLET BY MOUTH EVERY 4 HOURS NEEDED FOR PAIN SCORE 4-10 FOR 7 DAYS; Therapy: 16Feb2023 to Recorded Rx By: GEORGE; Dispense: 7 Days ; #:42; Refill: 0; GISELE = N; Record; Last Updated By: Meghan Edmondson; 02/26/2023 2:40:54 PM Potassium Chloride Jaimie ER 20 MEQ Oral Tablet Extended Release; TAKE 1 TABLET BY MOUTH TWICE DAILY WITH MEALS FOR 30 DAYS; Therapy: 16Feb2023 to Recorded Rx By: GEORGE; Dispense: 30 Days ; #:60; Refill: 0; GISELE = N; Record; Last Updated By: Meghan Edmondson; 02/26/2023 2:40:54 PM Zinc 50 MG Oral Tablet; TAKE TABLET; Therapy: 12May2022 to Recorded Dispense: 0 Days ; #: Sufficient Tablet; Refill: 0; GISELE = N; Record; Last Updated By: Alena Merritt; 11/10/2022 11:11:03 AM Provider Impressions See HPI Time Time Stamp_: Prep time on date of the patient encounter: 10 minutes. Time spent directly with patient/family/caregiver : 30 minutes. Additional time spent on patient care activities: 10 minutes. Documentation time: 15 minutes. Total time on date of patient encounter: 65 minutes. 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 Epps is an exceptionally nice 83-year-old male from [facility] presenting with a right heel acral lentiginous melanoma. This is at least 2.5 mm in Breslow depth and there is evidence of residual pigmentation surrounding the biopsy site. The current wound is 2 x 2.5 cm in size. The patient has no clinically palpable lymphadenopathy. The patient's pathology was reviewed and dermatopathology and his case will be presented in multidisciplinary tumor board. The patient was seen by Dr. Souza in medical oncology and had a whole-body PET/CT which did not demonstrate metastatic disease. Surgery 05/07/2021?wide excision right heel melanoma with a 2 cm margin, Integra graft placement, VAC placement. Right inguinal sentinel lymph node biopsy. Pathology?residual melanoma at the right heel with a depth of 1.3 mm. No microsatellitosis. 1 of 2 inguinal sentinel lymph nodes were involved, 0.02 mm deposit with no extracapsular extension. 0/1 popliteal lymph nodes involved Surgery 12/23/2022?right inguinal lymphadenectomy with sartorius flap reconstruction; excision pigmented dermal lesion Pathology?4 of 10 lymph nodes involved with melanoma. Extracapsular extension seen in the largest lesion. The dermal pigmented lesion did not represent in-transit disease [ ] Final drain removed. The patient will return to Dr. Howell and radiation oncology for adjuvant radiation to the inguinal basin. [ ] Follow-up with Dr. Souza in medical oncology [ ] I will continue to be available for the patient at any time. He has my personal number and should not hesitate to call me The patient asked very appropriate questions that were answered to the best of my ability with the current information at hand. He knows to call with any questions or concerns that arise in the interim. A total of 12 minutes was spent evaluating the patient's case including discussing his hospitalization and recovery. He was counseled on returning to Dr. Howell for radiation Chief Complaint Right heel melanoma Right inguinal silvia recurrence - Presenting for Drain removal History of Present IllnessMr. Epps presented as a 81-year-old male referred by Dr. 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 Due to lack of healing and an [...] site. The patient has not seen a caving guide but denies any other lesions of concern on his lower extremity or elsewhere on his body. Surgery 05/07/2021?wide excision right heel melanoma with a 2 cm margin, Integra graft placement, VAC placement. Right inguinal sentinel lymph node biopsy. Pathology?residual melanoma at the right heel with a depth of 1.3 mm. No microsatellitosis. 1 of 2 inguinal sentinel lymph nodes were involved, 0.02 mm deposit with no extracapsular extension. 0/1 popliteal lymph nodes involved Completed adjuvant Keytruda Surgery 12/23/2022?right inguinal lymphadenectomy with sartorius flap reconstruction; excision pigmented dermal lesion Pathology?4 of 10 lymph nodes involved with melanoma. Extracapsular extension seen in the largest lesion. The dermal pigmented lesion did not represent in-transit disease 02/25/2023 - Drain assessment. The patient returns after recent hospitalization with an intrathoracic abscess operated on by Dr. María Boggs. He is recovering well after that procedure. One of the patient's 2 inguinal drains were removed in the hospital due to low output while he was recovering from the thoracic issue. He presents today for thoracic follow-up and his drain output for the remaining drain has been less than 30 mL/day. He does get some drainage around the tube. Overall doing well ROS: The patient has good performance status and is active daily. Cardiac: No chest pain, palpitations or heart attacks Pulmonary: No asthma, bronchitis, or COPD. Left chest incision is well approximated HEENT: right eye vision change GI: No constipation, diarrhea, or bloody bowel movements : No changes in his urinary habits recently Musculoskeletal: Ambulating well. Decreased right lower extremity edema Skin: Heel has healed very well. Multiple nonmelanoma skin cancers in the past Heme: No bleeding or thrombosis issues Endo: hypothyroid Lymph: Right inguinal incision healing appropriately. Single drain in place Psych: No reported anxiet (more content not included)... [facility] Office Visit (Thoracic and E sophageal Surgery)on 02-25-2023 Follow-up visit Diagnoses/Problems Assessed Abscess of sternal region (682.2) (L02.213) Provider Impressions Mr. EMPERATRIZ EPPS is a 83 year-old man who presents for postoperative evaluation after debridement of clavicle for sternoclavicular abscess. I believe the patient is making appropriate postoperative recovery. He is certainly clinically much better. Radiographic imaging suggest improved aeration at the left apex with minimal drain output. Therefore I removed the FARNAZ drain in the office today. I encouraged the patient to continue his antibiotics, which I believe are scheduled for another 14 days. I also encouraged him to follow-up with infectious disease regarding any ongoing antimicrobial treatment required. Assuming excellent ongoing recovery, I have asked the patient to follow-up in this office on an as-needed basis. Plan: Follow-up as needed Chief Complaint Sternal abscess History of Present IllnessMr. EMPERATRIZ EPPS is a 83 year-old man who presents for postoperative evaluation after debridement of clavicle for a sternoclavicular abscess. This patient presented to medical attention with an abscess near his left clavicle which extended into his pleural space. He was taken to the operating room in January 2023 for debridement. He was brought back to the operating room on 01/30/2023 for wound closure, and at that time a Jersey drain was left in the pleural space. Ultimately, he was discharged home with his Jersey drain in place and long-term antibiotic treatment. Since discharge, the patient reports feeling much better. He notes no pain. He denies fevers chills or sweats. His breathing is normal, and he reports now being able to take a deep breath without difficulty. FARNAZ drain outputs have been quite minimal. 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 Calcium 600 600 MG Oral TabletTAKE TABLET Doxycycline Hyclate 100 MG Oral CapsuleTAKE 1 CAPSULE EVERY 12 HOURS UNTIL GONE. Eliquis 5 MG Oral TabletTAKE TABLET Glucosamine 500 MG Oral Capsule Multi Vitamin Mens TABS NAC 600 MG Oral CapsuleTAKE 1 CAPSULE BY MOUTH TWICE DAILY Omeprazole 40 MG Oral Capsule Delayed Release Zinc 50 MG Oral TabletTAKE TABLET Vitals Vital Signs Recorded: 25Feb2023 10:13AM Vedhneqjxwx38.1 C Heart Rate91 Gbwlrlnnkkd35 Etvkwotr001 Ggayewidm31 Height5 ft 5 in Ahvnla639 lb 3 oz BMI Lpaqhhzhrv77.82 kg/m2 BSA Calculated1.91 Tobacco Useb) No Falls Screening (Age 18+)a) No falls within the last year O2 Squlqvhxqu84 Pain Scale1 Physical Exam The patient is well-appearing and in no acute distress. The trachea is midline and there is no crepitus. The lungs were clear to auscultation grossly. There was good effort and excursion. The heart had a regular rate and rhythm. The abdomen was soft, nontender and nondistended. The extremities had no edema or gross deformities. Mood and affect are appropriate. FARNAZ drain with scant thin serous material. Results/Data I reviewed the pathology result which shows group B strep. I reviewed her chest x-ray which shows improved aeration at the left lung apex Signatures Electronically signed by : María Boggs MD; Feb 25 2023 10:46AM EST (Author) Normal [facility] TH CHEST 2 VIEW PA AND LATon 02-25-2023 CHEST 2 VIEW PA AND LAT Patient Name: EMPERATRIZ EPPS STUDY: TH CHEST 2 VIEW PA AND LAT; INDICATION: POST-OP L02.213: Abscess of sternal region. COMPARISON: 02/03/2023. ACCESSION NUMBER(S): [id number] ORDERING CLINICIAN: MARÍA BOGGS FINDINGS: Right chest wall MediPort with tip in the cavoatrial junction. Left-sided chest tube noted in similar position, terminating in the left upper thorax. The cardiac silhouette size is within normal limits. There is no focal consolidation, edema or pneumothorax. No sizeable pleural effusion. Irregularity of the anterior cortex of the mid sternum which may represent postsurgical change. IMPRESSION: 1. No acute cardiopulmonary process. 2. Life-support devices positions as above. Electronically signed by: HEATH ARGUETA MD Normal [facility] Tobacco Screening.on 023 Fall risk assessment a) No falls within the last year [facility] Work Phone: Tobacco use status [facility] b) No [facility] Work Phone: COVID-19 virus antigen assay Ordered By: Dr. Candelaria on 02-23-2023 SARS-CoV-2 (COVID-19) Ag IA.rapid Ql (Resp) [facility] Absolute lymphocyte countOrd ered By: Dr. Candelaria on 02-21-2023 Lymphocytes Auto (Unsp spec) [#/Vol] 1.72 10*3/uL 0.83-4.51 [facility] Basophil percentageOrdered B y: Dr. Candelaria on 02-21-2023 Basophils/100 WBC (Bld) 0.6 % 0-[address] [facility] Eosinophils/100 WBC (Bld) 10.3 % 0-5 [facility] Neutrophils (Bld) [#/Vol] 3.1 10*3/uL 2.0-7.7 [facility] Neutrophils/100 WBC (Bld) 48.6 % 47-70 [facility] WBC (Bld) [#/Vol] 6.3 10*3/uL 4.4-11.0 [facility] Blood erythrocytes count (nu mber/volume)Ordered By: Dr. Candelaria on 02-21-2023 RBC (Bld) [#/Vol] 3.46 10*6/uL 4.6-6.2 [facility] Blood hemoglobin measurement (mass/volume)Ordered By: Dr. Candelaria on 02-21-2023 Hemoglobin (Bld) [Mass/Vol] 10.9 g/dL 13.0-16.5 [facility] Blood lymphocytes/100 leukoc ytesOrdered By: Dr. Candelaria on 02-21-2023 Lymphocytes/100 WBC (Bld) 27.2 % 19-41 [facility] Blood monocytes/100 leukocyt esOrdered By: Dr. Candelaria on 02-21-2023 Monocytes/100 WBC (Bld) 13.0 % 0-[address] [facility] Blood platelet mean volumeOr dered By: Dr. Candelaria on 02-21-2023 Platelet mean volume (Bld) [Entitic vol] 8.8 fL 6.2-12.0 [facility] Determination of erythrocyte mean corpuscular volume (MCV)Ordered By: Dr. Candelaria on 02-21-2023 MCV (RBC) [Entitic vol] 96.2 fL 80-[address] [facility] Hematocrit Auto (Bld) [Volum e fraction]Ordered By: Dr. Candelaria on 02-21-2023 Hematocrit (Bld) [Volume fraction] 33.3 % 40-54 [facility] Laboratory - Hematology and Cell countsOrdered By: Dr. Candelaria on 02-21-2023 Erythrocyte distribution width (RBC) [Entitic vol] 48.1 fL 35.1-43.9 [facility] Erythrocyte distribution width (RBC) [Ratio] 13.6 % 11.6-14.6 [facility] Immature granulocytes/100 WBC (Bld) 0.300 % 0.0-0.9 [facility] Comment on above: IG% - Immature Granu locytes (promyelocytes, myelocytes and metamyelocytes) > 1% indicates that a LEFT SHIFT is Present. MCH (RBC) [Entitic mass] 31.5 pg 27.0-32.0 [facility] Nucleated RBC/100 WBC (Bld) [Ratio] 0 % 0-5 [facility] MCHC Auto (RBC) [Mass/Vol]Or dered By: Dr. Candelaria on 02-21-2023 MCHC (RBC) [Mass/Vol] 32.7 g/dL 32-36 [facility] Platelets bldOrdered By: Dr. Candelaria on 02-21-2023 Platelets (Bld) [#/Vol] 327 10*3/uL 150-450 [facility] Basophil percentageOrdered B y: Dr. Candelaria on 02-18-2023 Bilirubin [Mass/Vol] 0.30 mg/dL 0.20-1.00 [facility] Comment on above: For patients on eltr ombopag therapy, use of Dimension [place] TBIL is not recommended. Chloride [Moles/Vol] 109 mmol/L 98-107 [facility] Glucose [Mass/Vol] 102 mg/dL 74-106 [facility] Comment on above: Fasting Glucose resu lt from 100 to 125 mg/dL suggests IMPAIRED HOMEOSTASIS per A.D.A. criteria. Potassium [Moles/Vol] 3.8 mmol/L 3.5-5.1 [facility] Protein [Mass/Vol] 6.6 g/dL 6.4-8.2 [facility] Sodium [Moles/Vol] 140 mmol/L 136-145 [facility] Erythrocyte sedimentation ra teOrdered By: Dr. Candelaria on 02-18-2023 ESR (Bld) [Velocity] 54 mm/h 0-20 [facility] Laboratory - Chemistry and C hemistry - challengeOrdered By: Dr. Candelaria on 02-18-2023 ALP [Catalytic activity/Vol] 113 U/L 45-117 [facility] ALT [Catalytic activity/Vol] 25 U/L 16-61 [facility] CO2 [Moles/Vol] 27.0 mmol/L 21.0-32.0 [facility] Globulin (S) [Mass/Vol] 4.1 g/dL 2.2-4.2 [facility] Urea nitrogen/Creatinine [Mass ratio] 28.4 mg/mg 10-20 [facility] No Panel InformationOrdered By: Dr. Candelaria on 02-18-2023 Estimated Creatinine Clearance Calc 58.40 ml/min [facility] Estimated GFR (MDRD) Amer 107 mL/min >60 [facility] Comment on above: GFR Calc Estimated GFR (MDRD) Non-Af Amer 88 mL/min >60 [facility] Comment on above: Non- GFR Calc Serum or plasma C reactive p rotein measurement (mass/volume)Ordered By: Dr. Candelaria on 02-18-2023 CRP [Mass/Vol] 23.00 mg/L 0.0-3.0 [facility] Comment on above: C-Reactive Protein ( CRP) provides useful information for thediagnosis, therapy and monitoring of inflammatory processesand associated diseases. For the evaluation of Relative Riskfor Cardiovascular Disease, a High Sensitivity CRP (HSCRP)should be ordered. Serum or plasma albumin arian urement (mass/volume)Ordered By: Dr. Candelaria on 02-18-2023 Albumin [Mass/Vol] 2.5 g/dL 3.2-5.0 [facility] Serum or plasma albumin/glob ulin mass ratioOrdered By: Dr. Candelaria on 02-18-2023 Albumin/Globulin [Mass ratio] 0.6 {ratio} 0.9-2.4 [facility] Serum or plasma calcium arian urement (mass/volume)Ordered By: Dr. Candelaria on 02-18-2023 Calcium [Mass/Vol] 9.0 mg/dL 8.5-10.1 [facility] Serum or plasma creatinine m easurement (mass/volume)Ordered By: Dr. Candelaria on 02-18-2023 Creatinine [Mass/Vol] 0.88 mg/dL 0.70-1.30 [facility] Comment on above: The validity of the calculated GFR & GFRAA in patients over 70 years has not been determined. Clinical correlation is essential. Serum or plasma urea nitroge n measurement (mass/volume)Ordered By: Dr. Candelaria on 02-18-2023 Urea nitrogen [Mass/Vol] 25 mg/dL 7-18 [facility] Thin prep Papanicolaou smear with manual screeningOrdered By: Dr. Candelaria on 02-18-2023 Thin prep Papanicolaou smear with manual screening 16 U/L 15-37 [facility] Thin prep Papanicolaou smear with manual screening 4 5-15 [facility] BASIC METABOLIC PANELon 03-0 ANION GAP Canceled Normal [facility] Comment on above: Order Comment: TEST BASIC METABOLIC PANEL WAS CANCELLED, 02/04/2023 07:10 Performed By: #### B MP #### [facility] [id number] [place] [address] BICARBONATE Canceled Normal [facility] Comment on above: Order Comment: TEST BASIC METABOLIC PANEL WAS CANCELLED, 02/04/2023 07:10 Performed By: #### B MP #### [facility] [address] [place] [address] CALCIUM Canceled Normal [facility] Comment on above: Order Comment: TEST BASIC METABOLIC PANEL WAS CANCELLED, 02/04/2023 07:10 Performed By: #### B MP #### [facility] [address] [place] [address] CHLORIDE Canceled Normal [facility] Comment on above: Order Comment: TEST BASIC METABOLIC PANEL WAS CANCELLED, 02/04/2023 07:10 Performed By: #### B MP #### [facility] [address] [place] [address] CREATININE Canceled Normal [facility] Comment on above: Order Comment: TEST BASIC METABOLIC PANEL WAS CANCELLED, 02/04/2023 07:10 Performed By: #### B MP #### [facility] [address] [place] [address] eGFR FEMALE Canceled Normal [facility] Comment on above: Order Comment: TEST BASIC METABOLIC PANEL WAS CANCELLED, 02/04/2023 07:10 Result Comment: CALC ULATIONS OF ESTIMATED GFR ARE PERFORMED USING THE 2020 CKD-EPI STUDY REFIT EQUATION WITHOUT THE RACE VARIABLE FOR THE IDMS-TRACEABLE CREATININE METHODS. https://jasn.asnjournals.org/content/early//ASN.095 1762375 Performed By: #### B MP #### [facility] [address] [place] [address] eGFR MALE Canceled Normal [facility] Comment on above: Order Comment: TEST BASIC METABOLIC PANEL WAS CANCELLED, 02/04/2023 07:10 Result Comment: CALC ULATIONS OF ESTIMATED GFR ARE PERFORMED USING THE 2020 CKD-EPI STUDY REFIT EQUATION WITHOUT THE RACE VARIABLE FOR THE IDMS-TRACEABLE CREATININE METHODS. https://jasn.asnjournals.org/content/early/ASN.853 3769989 Performed By: #### B MP #### [facility] [address] [place] [address] GLUCOSE Canceled Normal [facility] Comment on above: Order Comment: TEST BASIC METABOLIC PANEL WAS CANCELLED, 02/04/2023 07:10 Performed By: #### B MP #### [facility] [address] [place] [address] POTASSIUM Canceled Normal [facility] Comment on above: Order Comment: TEST BASIC METABOLIC PANEL WAS CANCELLED, 02/04/2023 07:10 Performed By: #### B MP #### [facility] [address] [place] [address] SODIUM Canceled Normal [facility] Comment on above: Order Comment: TEST BASIC METABOLIC PANEL WAS CANCELLED, 02/04/2023 07:10 Performed By: #### B MP #### [facility] [address] [place] [address] UREA NITROGEN Canceled Normal [facility] Comment on above: Order Comment: TEST BASIC METABOLIC PANEL WAS CANCELLED, 02/04/2023 07:10 Performed By: #### B MP #### [facility] [address] [place] [address] CBCon 02-04-2023 HCT Canceled Normal [facility] Comment on above: Order Comment: TEST CBC WAS CANCELLED, 02/04/2023 07:10 Performed By: #### C BC ####[id number] [place] [address] HGB Canceled Normal [facility] Comment on above: Order Comment: TEST CBC WAS CANCELLED, 02/04/2023 07:10 Performed By: #### C BC ####[id number] [place] [address] MCHC Canceled Normal [facility] Comment on above: Order Comment: TEST CBC WAS CANCELLED, 02/04/2023 07:10 Performed By: #### C BC ####[id number] [place] [address] MCV Canceled Normal [facility] Comment on above: Order Comment: TEST CBC WAS CANCELLED, 02/04/2023 07:10 Performed By: #### C BC ####[id number] [place] [address] NUCLEATED RBC Canceled Normal [facility] Comment on above: Order Comment: TEST CBC WAS CANCELLED, 02/04/2023 07:10 Performed By: #### C BC ####[id number] [place] [address] PLT Canceled Normal [facility] Comment on above: Order Comment: TEST CBC WAS CANCELLED, 02/04/2023 07:10 Performed By: #### C BC ####[id number] [place] [address] RBC Canceled Normal [facility] Comment on above: Order Comment: TEST CBC WAS CANCELLED, 02/04/2023 07:10 Performed By: #### C BC ####[id number] [place] [address] RDW-CV Canceled Normal [facility] Comment on above: Order Comment: TEST CBC WAS CANCELLED, 02/04/2023 07:10 Performed By: #### C BC ####[id number] [place] [address] WBC Canceled Normal [facility] Comment on above: Order Comment: TEST CBC WAS CANCELLED, 02/04/2023 07:10 Performed By: #### C BC ####[id number] [place] [address] Covid 19 Resultson 3 SARS-CoV-2 (COVID-19) RNA KACIE+probe Ql (Unsp spec) NEGATIVE COVID-19 Test Coronaviruses are common world-wide and are the cause of many common colds. SARS-COV2 is a new coronavirus that began circulating worldwide in 2019 so we are calling it COVID-19. It has been estimated that four out of five patients with COVID-19 will recover at home without the need for medical attention. Symptoms of COVID-19 may include cough, fever, shortness of breath, loss of taste or smell and other flu-like symptoms including chills, sore muscles, sore throat, and headache. Severe illness is more common in older people and people with other health problems such as high blood pressure, obesity, and immune system problems. If the test is positive, you have COVID-19. You will be contacted by the ordering physicians office and instructed to remain on home isolation, in accordance with CDC guidelines. You may also be contacted by the [facility] to see if any of your close contacts may have been exposed to the virus and need to quarantine. If the test is negative, you likely do not have COVID-19 at this time, but you still may have a different illness that can spread to other people (like Influenza, or the Flu) and could still be at risk for getting COVID-19. We recommend that you stay away from other people to limit the spread of illness until your symptoms are improving and you are fever-free for 24 hours without the use of fever lowering medications such as acetaminophen or ibuprofen. No test is 100% accurate so if you are still concerned you may have COVID-19, talk to your doctor about the need to continue to stay away from others. Medicines Unless your provider told you not to use the following: Acetaminophen (Tylenol and others) is generally safe. Anti-inflammatory medications, such as Ibuprofen (Advil or Motrin) or Naproxen (Aleve) can also be used. Vrpn-xlm-uazfwyq cough and cold medicines can be used according to the instructions on the package. Some enah-vzm-dxlavuk medicines also contain acetaminophen. Make sure you are not taking more than your recommended dose. For those not hospitalized, there is no specific treatment available for this illness. Antibiotics do not treat Coronaviruses. Follow-Up Follow up with your doctor by scheduling a virtual visit or consider follow-up at one of our urgent care fever clinics. If you are having difficulty breathing, or are very weak and having difficulty standing, this is a medical emergency. Call 911 or have someone take you to the nearest emergency room immediately. If possible, wear a facemask. Additional guidance from the CDC for patients who tested POSITIVE for COVID-19 How to isolate: Isolate yourself in a specific room at home and limit your contact with others. Use a separate bathroom from other members of the household, when possible. Leave home only to get essential medical care. Do not go to work, school or public areas. Avoid using public transportation, ride-sharing, or taxis. Restrict contact with pets and other animals. If you must care for your pet or be around animals while you are sick, wash your hands before and after your interaction and wear a facemask. Make sure that shared spaces in the home have good airflow, such as by an air conditioner or an opened window, weather permitting. Personal Hygiene Procedures: Wear a face mask when in the same room as other people or pets. If a face mask interferes with your breathing, others should wear a mask when sharing space with you. Frequent hand-washing: wash your hands with soap and water for at least 20 seconds. If soap and water are not available, use alcohol-based hand presser machine. Avoid touching your eyes, nose, and mouth with unwashed hands. Household Hygiene Procedures: Avoid sharing personal household items such as dishes, glassware, cups, eating utensils, towels or bedding with other people or pets in your home. After use, these items should be washed with soap and hot water. Disinfect all high-touch surfaces every day with antibacterial cleaning solutions such as Lysol wipes, bleach, cleansers, etc. High-touch surfaces include tabletops, doorknobs, bathroom fixtures, toilets, phones, keyboards, tablets and bedside tables. Immediately clean any surfaces that may have blood, poop or body fluids on them, using antibacterial cleaning solutions such as Lysol wipes, bleach, cleansers, etc. If clothing or bedding come into contact with blood, poop or body fluids, they should be washed immediately. Follow the directions on the laundry detergent and clothing labels but hot water is recommended when possible. Stopping home isolation precautions: If possible, consult your doctor before stopping home isolation precautions. According to the CDC, you can discontinue home isolation precautions when you have met both of these criteria: Your fever and respiratory symptoms have been gone for 24 delia (more content not included)... Normal [facility] MAGNESIUMon 02-04-2023 MAGNESIUM Canceled Normal [facility] Comment on above: Order Comment: TEST MAGNESIUM WAS CANCELLED, 02/04/2023 07:10 Performed By: #### M G #### [facility] [id number] [place] [address] BASIC METABOLIC PANELon Anion gap [Moles/Vol] 10 mmol/L Normal 10 - 20 [facility] Comment on above: Performed By: #### B MP #### [facility] [address] [place] [address] Calcium [Mass/Vol] 8.4 mg/dL Low 8.6 - 10.6 [facility] Comment on above: Performed By: #### B MP #### [facility] [address] [place] [address] Chloride [Moles/Vol] 104 mmol/L Normal 98 - 107 [facility] Comment on above: Performed By: #### B MP #### [facility] [address] [place] [address] Creatinine [Mass/Vol] 0.93 mg/dL Normal 0.50 - 1.30 [facility] Comment on above: Performed By: #### B MP #### [facility] [address] [place] [address] GFR/1.73 sq M.predicted among non-blacks MDRD (S/P/Bld) [Vol rate/Area] 82 mL/min/{1.73_m2} Normal >90 [facility] Comment on above: Result Comment: CALC ULATIONS OF ESTIMATED GFR ARE PERFORMED USING THE 2020 CKD-EPI STUDY REFIT EQUATION WITHOUT THE RACE VARIABLE FOR THE IDMS-TRACEABLE CREATININE METHODS. https://jasn.asnjournals.org/content/early//ASN.248 6468890 Performed By: #### B MP #### [facility] [address] [place] [address] Glucose [Mass/Vol] 88 mg/dL Normal 74 - 99 [facility] Comment on above: Performed By: #### B MP #### [facility] [address] [place] [address] HCO3 (Bld) [Moles/Vol] 29 mmol/L Normal 21 - 32 [facility] Comment on above: Performed By: #### B MP #### [facility] [address] [place] [address] Potassium [Moles/Vol] 3.8 mmol/L Normal 3.5 - 5.3 [facility] Comment on above: Performed By: #### B MP #### [facility] [address] [place] [address] Sodium [Moles/Vol] 139 mmol/L Normal 136 - 145 [facility] Comment on above: Performed By: #### B MP #### [facility] [address] [place] [address] Urea nitrogen [Mass/Vol] 11 mg/dL Normal 6 - 23 [facility] Comment on above: Performed By: #### B MP #### [facility] [address] [place] [address] CBCon 02-03-2023 Erythrocyte distribution width (RBC) [Ratio] 13.8 % Normal 11.5 - 14.5 [facility] Comment on above: Performed By: #### C BC #### [place] [address] [place] [address] Hematocrit (Bld) [Volume fraction] 29.6 % Low 41.0 - 52.0 [facility] Comment on above: Performed By: #### C BC #### [facility] [address] [place] [address] Hemoglobin (Bld) [Mass/Vol] 9.4 g/dL Low 13.5 - 17.5 [facility] Comment on above: Performed By: #### C BC #### [facility] [address] [place] [address] MCHC (RBC) [Mass/Vol] 31.8 g/dL Low 32.0 - 36.0 [facility] Comment on above: Performed By: #### C BC #### [facility] [address] [place] [address] MCV (RBC) [Entitic vol] 97 fL Normal 80 - 100 [facility] Comment on above: Performed By: #### C BC #### [facility] [address] [place] [address] NUCLEATED RBC 0.0 /100 WBC Normal 0.0-0.0 [facility] Comment on above: Performed By: #### C BC #### [facility] [address] [place] [address] Platelets (Bld) [#/Vol] 653 10*3/uL High 150 - 450 [facility] Comment on above: Performed By: #### C BC #### [facility] [address] [place] [address] RBC 3.04 x10E12/L Low 4.50 - 5.90 [facility] Comment on above: Performed By: #### C BC #### [facility] [address] [place] [address] WBC (Bld) [#/Vol] 6.2 10*3/uL Normal 4.4 - 11.3 [facility] Comment on above: Performed By: #### C BC #### [facility] [address] [place] [address] CORONAVIRUS 2019, SCREEN ASY MPTOMATICon 02-03-2023 SARS-CoV-2 (COVID-19) RNA KACIE+probe Ql (Unsp spec) Not detected Normal Not Detected [facility] Comment on above: Result Comment: . This assay is designed to detect the ORF1ab and/or S genes of SARS-CoV-2 via nucleic acid amplification. A Not Detected result does not preclude 2019-nCoV infection since the adequacy of sample collection and/or low viral burden may result in presence of viral nucleic acids below the clinical sensitivity of this test method. Fact sheet for providers: www.fda.gov/media/520861/download Fact sheet for patients: www.fda.gov/media/384918/download This test has received FDA Emergency Use Authorization (EUA) and has been verified by [facility] ([facility]). This test is only authorized for the duration of time that circumstances exist to justify the authorization of the emergency use of in vitro diagnostic tests for the detection of SARS-CoV-2 virus and/or diagnosis of COVID-19 infection under section 564(b)(1) of the Act, 21 U.S.C. 360bbb-3(b)(1), unless the authorization is terminated or revoked sooner. [facility] is certified under CLIA-88 as qualified to perform high complexity testing. Testing is performed in the [facility] laboratories [place] [address] [place] [address]. Performed By: #### C OVSC ####[id number] [facility] [place] [address] Lab Specimen Source Nasal, Nasopharyngeal Normal [facility] Comment on above: Performed By: #### C OVSC ####[id number] [facility] [place] [address] Daily Progress Note-Surgical Oncologyon 02-03-2023 Daily Progress Note-Surgical Oncology Service: Surgical Oncology Subjective Data: EMPERATRIZ EPPS is a 83 year old Male who is Hospital Day # 8 and POD #4 for 1. sternal wound debridement;2. sternal wound primary closure. Additional Information: No acute events over night. No immediate complaints. Denies LEDESMA, CP, SOB, N/V, F/C, bowel/bladder changes, new focal neural deficits afebrile, HDstable overnight R groin FARNAZ 185 --> 125 --> 235cc today L chest jersey 90--> 80 --> 85cc today UOP 2500 --> 3375 --> 2725cc today BM x1 overnight Plans for discharged today to SNF Objective Data: Objective Information: T PRBPMAPSpO2 [id number]% Date/Time02/03 9: 9: 9: 9: 9: 9:17 Range(35.9C - 37C ) (67 - 90 ) (16 - 18 ) (78 - 147 )/ (39 - 86 ) (64 - 100 ) (94% - 100% ) Highest temp of 37 C was recorded at 02/02 1:15 Pain reported at 02/03 10:00: 0 = None ---- Intake and Output ----- Mn/Dy/Year TimeIntakeOutputNet Feb 03, 2023 6:00 [id number] Feb 02, 2023 10:00 [id number] Feb 02, 2023 2:00 [id number] The Intake and Output Totals for the last 24 hours are: IntakeOutunm cancer centerNet [id number] Physical Exam by System: Constitutional: no acute distress, resting comfortably in bed. pleasant, conversant. Eyes: clear sclera ENMT: moist mucus membranes Head/Neck: midline trachea Respiratory/Thorax: L chest jersey wiithout erythema, crepitus, or fluctuance. Thin serosang output in drain. Breathing and conversation unlaboured on room air. Cardiovascular: regular Gastrointestinal: soft, nontender, non distended Genitourinary: deferred Musculoskeletal: CBAALLERO Extremities: no deformities, no edema. R groin incision well approximated w/o erythema, crepitus, or fluctance. c/d/i. R groin FARNAZ with serous output. Neurological: AOx4, no focal deficits Psychological: appropriate mood and affect Skin: warm and dry Medication: Medications: Continuous Medications -------- No continuous medications are active Scheduled Medications -------- 1. Acetaminophen: 650 mg Oral Every 4 Hours 2. Alfuzosin Extended Release: 10 mg Oral Every 24 Hours 3. Apixaban: 5 mg Oral Every 12 Hours 4. cefTRIAXone 2 gram/Dextrose 5% IVPB Premixed Soln 50 mL: 50 mL IntraVenous Piggyback Every 24 Hours 5. Levothyroxine: 112 microgram(s) Oral Daily 6. Metoprolol Tartrate: 25 mg Oral 2 Times a Day 7. Pantoprazole: 40 mg Oral Daily 8. Polyethylene Glycol: 17 gram(s) Oral Daily 9. Sodium Chloride 0.9% Injectable Flush: 10 mL IntraVenous Flush Every 12 Hours PRN Medications -------- 1. Heparin Flush 10 unit/ mL PF Injectable: 5 mL IntraVenous Flush Every 12 Hours 2. Heparin Flush 10 unit/ mL PF Injectable PRN: 5 mL IntraVenous Flush According to Flush Policy 3. HYDROmorphone Injectable: 0.2 mg IntraVenous Push Every 4 Hours 4. Ondansetron Injectable: 4 mg IntraVenous Push Every 6 Hours 5. oxyCODONE Immediate Release: 2.5 mg Oral Every 4 Hours 6. oxyCODONE Immediate Release: 5 mg Oral Every 4 Hours 7. Sodium Chloride 0.9% Injectable Flush PRN: 10 mL IntraVenous Flush According to Flush Policy 8. Sodium Chloride 0.9% Injectable Flush PRN: 20 mL IntraVenous Flush According to Flush Policy Currently Suspended Medications -------- 1. amLODIPine (NORVASC): 5 mg Oral Daily Recent Lab Results: Results: CBC: 02/03/2023 06:06 \ Hgb / \ 9.4 L / WBC Plt 6.2 653 H / Hct \ / 29.6 L \ RBC: 3.04 L MCV: 97 BMP: 02/03/2023 06:06 NA+ Cl- BUN / 139 104 11 / -------- Glucose --- 88 K+ HCO3- Creat \ 3.8 29 0.93 \ Calcium : 8.4 L Anion Gap : 10 Assessment and Plan: Daily Risk Screen: Does patient have a central linen/a consulting service Code Status: Code StatusFull Code Assessment: 83M with metastatic melanoma s/p R inguinal LN dissection sartorius flap reconstruction, excision of skin lesion on 12/23/[address] Bennett. R groin healing appropriately without signs of infections. PICC placed 02/01 for home going antibiotics for sternal cavity per ID. Pt remains HDstable and afebrile on RNF. Plan - patient to be discharged with RIGHT groin drain until follow up with Dr Bennett in 1-2 weeks. Pt seen and discussed with fellow Dr. Vargas, and SeniorDr Fady MD [facility] PGY1 General Surgery Surgical Oncology [id number] Attestation: Note Completion: I am a: Resident/Fellow Attending AttestationI saw and evaluated the patient. I personally obtained the putnam and critical portions of the history and physical exam or was physically present for putnam and critical portions performed by the resident/fellow. I reviewed the resident/fellows documentation and discussed the patient with the resident/fellow. I agree with the resident/ (more content not included)... Normal [facility] Daily Progress Note-Thoracic and Esophageal Surgeryon 02-03-2023 Daily Progress Note-Thoracic and Esophageal Surgery Service: Thoracic & Esophageal Surgery Subjective Data: EMPERATRIZ EPPS is a 83 year old Male who is Hospital Day # 8 and POD #4 for 1. sternal wound debridement;2. sternal wound primary closure. Additional Information: left chest tenderness and left arm discomfort improving no significant events overnight chest FARNAZ with cloudy fluid - ~85cc in 24hrs Objective Data: Objective Information: T PRBPMAPSpO2 [id number]% Date/Time02/03 9: 9: 9: 9: 9: 9:17 Range(35.9C - 37C ) (67 - 90 ) (16 - 18 ) (78 - 147 )/ (39 - 86 ) (64 - 100 ) (94% - 100% ) Highest temp of 37 C was recorded at 02/02 1:15 Pain reported at 02/03 10:00: 0 = None ---- Intake and Output ----- Mn/Dy/Year TimeIntakeOutputNet Feb 03, 2023 6:00 [id number] Feb 02, 2023 10:00 [id number] Feb 02, 2023 2:00 [id number] The Intake and Output Totals for the last 24 hours are: IntakeOutputNet [id number] Physical Exam by System: Constitutional: Well developed, awake/alert/oriented x3, no distress, alert and cooperative Respiratory/Thorax: clear bilaterally, oxygenating well on room air Cardiovascular: RRR, telemetry with NSR Gastrointestinal: large, soft , not tender, tolerating diet well, BM daily Extremities: no edema or calf tenderness Psychological: Appropriate mood and behavior Skin: left chest wound with small redness and edema, moderate tenderness minima drainage right groin FARNAZ drain with serosanguinous fluid 135cc in 24hrs left anterior chest FARNAZ 85 cc of cloudy sero sanguinous output Medication: Medications: Continuous Medications -------- No continuous medications are active Scheduled Medications -------- 1. Acetaminophen: 650 mg Oral Every 4 Hours 2. Alfuzosin Extended Release: 10 mg Oral Every 24 Hours 3. Apixaban: 5 mg Oral Every 12 Hours 4. cefTRIAXone 2 gram/Dextrose 5% IVPB Premixed Soln 50 mL: 50 mL IntraVenous Piggyback Every 24 Hours 5. Levothyroxine: 112 microgram(s) Oral Daily 6. Metoprolol Tartrate: 25 mg Oral 2 Times a Day 7. Pantoprazole: 40 mg Oral Daily 8. Polyethylene Glycol: 17 gram(s) Oral Daily 9. Sodium Chloride 0.9% Injectable Flush: 10 mL IntraVenous Flush Every 12 Hours PRN Medications -------- 1. Heparin Flush 10 unit/ mL PF Injectable: 5 mL IntraVenous Flush Every 12 Hours 2. Heparin Flush 10 unit/ mL PF Injectable PRN: 5 mL IntraVenous Flush According to Flush Policy 3. HYDROmorphone Injectable: 0.2 mg IntraVenous Push Every 4 Hours 4. Ondansetron Injectable: 4 mg IntraVenous Push Every 6 Hours 5. oxyCODONE Immediate Release: 2.5 mg Oral Every 4 Hours 6. oxyCODONE Immediate Release: 5 mg Oral Every 4 Hours 7. Sodium Chloride 0.9% Injectable Flush PRN: 10 mL IntraVenous Flush According to Flush Policy 8. Sodium Chloride 0.9% Injectable Flush PRN: 20 mL IntraVenous Flush According to Flush Policy Currently Suspended Medications -------- 1. amLODIPine (NORVASC): 5 mg Oral Daily Recent Lab Results: Results: CBC: 02/03/2023 06:06 \ Hgb / \ 9.4 L / WBC Plt 6.2 653 H / Hct \ / 29.6 L \ RBC: 3.04 L MCV: 97 BMP: 02/03/2023 06:06 NA+ Cl- BUN / 139 104 11 / -------- Glucose --- 88 K+ HCO3- Creat \ 3.8 29 0.93 \ Calcium : 8.4 L Anion Gap : 10 Radiology Results: Results: Impression: 1. Mild leftapical opacity, similar to previous. This could be due to previous consolidation, pleural fluid, or postoperative change. 2. Medical devices as above. Xray Chest 1 View [Feb 01 2023 11:34AM] Assessment and Plan: Daily Risk Screen: Does patient have a central lineyes Central Line TypePICC Plan for PICC removal todayno The patient continues to require a PICC forparenteral medication Code Status: Code StatusFull Code Assessment: 83 year old man with hx [...] wound vac placement 01/30/23 wound debridement and closure , anterior chest FARNAZ in place, cloudy serosanguinous fluid 02/01/23 L PICC line PLAN: Neuro: incisional discomfort Good pain management on scheduled Tylenol and Oxy 2.5/5 mg as needed for pain Monitor effectiveness and adjust dose as needed Bowel regimen while on narcotic (more content not included)... Normal [facility] MAGNESIUMon 02-03-2023 Magnesium [Mass/Vol] 2.27 mg/dL Normal 1.60 - 2.40 [facility] Comment on above: Performed By: #### M G ####[id number] [place] [address] Rehab Note-individual therap yon 02-03-2023 Rehab Note-individual therapy Rehab: Info: Disciplineoccupational therapist Mode of Treatmentindividual therapy Time IN09:12 Time OUT09:40 Total Treatment [id number] Patient in ... at end of sessionchair; alarm off; not on at start of visit Communicated with ... at end of sessionbedside nurse Patient Effortgood Symptoms Noted During/After Treatmentnone Treatment Considerations/CommentsJ P drain x2 Patient Response to TreatmentRN cleared pt to participate in OT. Pt seated in chair on arrival, willing to participate in OT. Pre Treatment Patient Positionsupine Pre Treatment Blood Pressure [id number] mmHg Pre Treatment Diastolic (mm Hg)71 mmHg Pre Treatment Heart Rate (beats/min)87 During Treatment Patient Positionsitting During Treatment Blood Pressure [id number] mmHg During Treatment Diastolic (mm Hg)81 mmHg During Treatment Heart Rate (beats/min)96 Post Treatment Patient Positionstanding Post Treatment Blood Pressure [id number] Post Treatment Diastolic (mm Hg)76 mmHg Post Treatment Heart Rate (beats/min)96 Vision/Cognition: Affect/Mental Status (Cognitive)WFL Orientation Status (Cognition)oriented x 3 Able to Follow Commands (Receptive)WFL Mobility/Tone: Bed Mobility Assessment/Interventions supine to sit; sit to supine Gihckp-af-Rij [place] (Bed Mobility)contact guard Utz-sy-Zvcyjc [place] (Bed Mobility)contact guard Transfer Assessment/Interventions sit to stand transfer; stand to sit transfer; toilet transfer Sit-Stand [place] (Transfers)contact guard Stand-Sit [place] (Transfers)contact guard Toilet [place] (Transfers)contact guard ADL: BADL Assessment/Interventiont oileting; grooming [place] Level (Grooming)standby assist Comment (Grooming)hand hygiene standing sink side [place] Level (Toileting)contact guard Motor: Sitting, Static (Balance)good balance Sitting, Dynamic (Balance)good balance Qlb-dm-Xtgbz (Balance)good balance Standing, Static (Balance)good balance Standing, Dynamic (Balance)good balance Pt participated in functional mobility in room and hallway with CGA Sensory: Comment, Pre/Post Treatment Painpt reporting soreness in L shld with ROM TherEx: Therapeutic ExercisePt completed AAROM L shld flex/abd/add/IR/ER within pain tolerance Outcomes Tools: Putting on and taking off regular lower body clothinga little Bathing (including washing, rinsing, drying)a little Toileting, which includes using toilet, bedpan or urinala little Putting on and taking off regular upper body clothinga little Taking care of personal grooming such as brushing teetha little Eating Mealsnone AM-PAC (OT) Total Score19 Electronic Signatures: Pam Willard (OT) (Signed 03-Feb-2023 11:32) Authored: Info, Vision/Cognition, Mobility/Tone, ADL, Motor, Sensory, TherEx, Outcomes Tools, Short Term Goals Last Updated: 03-Feb-2023 11:32 by Pam Willard (OT) Normal [facility] TH CHEST 1 VIEWon 02-03-2023 TH CHEST 1 VIEW Patient Name: EMPERATRIZ EPPS STUDY: CHEST 1 VIEW; INDICATION: infection . COMPARISON: Chest radiograph on 02/01/2023 ACCESSION NUMBER(S): [id number] ORDERING CLINICIAN: JORGE LUIS LEBLANC FINDINGS: Single AP view of the chest. Right chest wall MediPort again seen with tip overlying the mid SVC. Left upper extremity PICC again seen with tip overlying the mid SVC. Stable positioning of left-sided chest tube. The cardiomediastinal silhouette is stable in size and configuration. Mild residual opacity at the left pulmonary apex, similar to prior exam. Otherwise no new consolidation, pleural effusion, or pneumothorax. No acute osseous abnormality. IMPRESSION: 1. Mild left apical opacity, similar to prior exam, which may be secondary to previous consolidation or postoperative change. 2. Medical devices as above. I personally reviewed the images/study and I agree with the findings as stated. This study was interpreted at [place], [place]. Electronically signed by: LELO AHN MD Normal [facility] BASIC METABOLIC PANELon Anion gap [Moles/Vol] 10 mmol/L Normal 10 - 20 [facility] Comment on above: Performed By: #### B MP ####[id number] [place] [address] Calcium [Mass/Vol] 7.9 mg/dL Low 8.6 - 10.6 [facility] Comment on above: Performed By: #### B MP ####[id number] [place] [address] Chloride [Moles/Vol] 105 mmol/L Normal 98 - 107 [facility] Comment on above: Performed By: #### B MP ####[id number] [place] [address] Creatinine [Mass/Vol] 0.98 mg/dL Normal 0.50 - 1.30 [facility] Comment on above: Performed By: #### B MP ####[id number] [place] [address] GFR/1.73 sq M.predicted among non-blacks MDRD (S/P/Bld) [Vol rate/Area] 77 mL/min/{1.73_m2} Normal >90 [facility] Comment on above: Result Comment: CALC ULATIONS OF ESTIMATED GFR ARE PERFORMED USING THE 2020 CKD-EPI STUDY REFIT EQUATION WITHOUT THE RACE VARIABLE FOR THE IDMS-TRACEABLE CREATININE METHODS. https://jasn.asnjournals.org/content//ASN.644 6578079 Performed By: #### B MP ####[id number] [place] [address] Glucose [Mass/Vol] 79 mg/dL Normal 74 - 99 [facility] Comment on above: Performed By: #### B MP ####[id number] [place] [address] HCO3 (Bld) [Moles/Vol] 30 mmol/L Normal 21 - 32 [facility] Comment on above: Performed By: #### B MP ####[id number] [place] [address] Potassium [Moles/Vol] 3.7 mmol/L Normal 3.5 - 5.3 [facility] Comment on above: Performed By: #### B MP ####[id number] [place] [address] Sodium [Moles/Vol] 141 mmol/L Normal 136 - 145 [facility] Comment on above: Performed By: #### B MP ####[id number] [place] [address] Urea nitrogen [Mass/Vol] 13 mg/dL Normal 6 - 23 [facility] Comment on above: Performed By: #### B MP ####[id number] [place] [address] C-REACTIVE PROTEINon 023 C-REACTIVE PROTEIN 3.31 mg/dL Abnormal [facility] Comment on above: Result Comment: REF VALUE < 1.00 Performed By: #### B MP #### [id number] [place] [address] CBCon 02-02-2023 Erythrocyte distribution width (RBC) [Ratio] 13.6 % Normal 11.5 - 14.5 [facility] Comment on above: Performed By: #### C BC ####[id number] [place] [address] Hematocrit (Bld) [Volume fraction] 29.1 % Low 41.0 - 52.0 [facility] Comment on above: Performed By: #### C BC ####[id number] [place] [address] Hemoglobin (Bld) [Mass/Vol] 9.1 g/dL Low 13.5 - 17.5 [facility] Comment on above: Performed By: #### C BC ####[id number] [place] [address] MCHC (RBC) [Mass/Vol] 31.3 g/dL Low 32.0 - 36.0 [facility] Comment on above: Performed By: #### C BC ####[id number] [place] [address] MCV (RBC) [Entitic vol] 99 fL Normal 80 - 100 [facility] Comment on above: Performed By: #### C BC ####[id number] [place] [address] NUCLEATED RBC 0.0 /100 WBC Normal 0.0-0.0 [facility] Comment on above: Performed By: #### C BC ####[id number] [place] [address] Platelets (Bld) [#/Vol] 613 10*3/uL High 150 - 450 [facility] Comment on above: Performed By: #### C BC ####[id number] [place] [address] RBC 2.94 x10E12/L Low 4.50 - 5.90 [facility] Comment on above: Performed By: #### C BC ####[id number] [place] [address] WBC (Bld) [#/Vol] 6.0 10*3/uL Normal 4.4 - 11.3 [facility] Comment on above: Performed By: #### C BC ####[id number] [place] [address] Daily Progress Note-Surgical Oncologyon 02-02-2023 Daily Progress Note-Surgical Oncology Service: Surgical Oncology Subjective Data: EMPERATRIZ EPPS is a 83 year old Male who is Hospital Day # 7 and POD #3 for 1. sternal wound debridement;2. sternal wound primary closure. Additional Information: No acute events over night. No immediate complaints. Denies LEDESMA, CP, SOB, N/V, F/C, bowel/bladder changes, new focal neural deficits Aferbile, BPs 114-138/74-82, HR 60s-80 PICC placed yesterday for homegoing CTX 2g q24h IV x6w (01/30 - 03/12) R groin FARNAZ 120 --> 185 --> 125 cc today L chest wall 85 --> 90 --> 80cc today UOP 1825 --> 2500 --> 3375cc today BM x3 overnight Objective Data: Objective Information: T PRBPMAPSpO2 [id number] % Date/Time02/02 6: 6: 6: 6: 6: 6:18 Range(36.1C - 37.3C ) (65 - 89 ) (16 - 20 ) (114 - 138 )/ (67 - 82 ) (83 - 100 ) (94% - 96% ) Highest temp of 37.3 C was recorded at 02/01 2:49 Pain reported at 02/02 5:56: 2 = Mild ---- Intake and Output ----- Mn/Dy/[facility] Feb 02, 2023 6:00 [id number] Feb 01, 2023 10:00 [id number] Feb 01, 2023 2:00 [id number] The Intake and Output Totals for the last 24 hours are: [facility] [id number] Physical Exam by System: Constitutional: Resting comfortably in bed, doing well. No acute distress Eyes: clear sclera ENMT: no deformaties, moist mucus membranes Head/Neck: non tender neck Respiratory/Thorax: unlaboured on room air. LEFT chest wall drain with thin serosang output Cardiovascular: regular, no edema in extremities Gastrointestinal: soft, non distended, nontender, non peritonitic Genitourinary: deferred Musculoskeletal: CABALLERO Extremities: R groin incision well approximated without erythema, crepitus, or fluctuance. Clean/dry/intact. R groin FARNAZ with 25cc serous output to bulb suction. Neurological: AOx4 Psychological: appropriate mood and affect Skin: warm and dry Medication: Medications: Continuous Medications -------- No continuous medications are active Scheduled Medications -------- 1. Acetaminophen: 650 mg Oral Every 4 Hours 2. Alfuzosin Extended Release: 10 mg Oral Every 24 Hours 3. amLODIPine (NORVASC): 5 mg Oral Daily 4. Levothyroxine: 112 microgram(s) Oral Daily 5. Metoprolol Tartrate: 25 mg Oral 2 Times a Day 6. Pantoprazole: 40 mg Oral Daily 7. Piperacillin - Tazobactam 3.375 gram/Iso-osmotic 50 mL Premix IVPB: 50 mL IntraVenous Piggyback Every 6 Hours 8. Polyethylene Glycol: 17 gram(s) Oral Daily 9. Sodium Chloride 0.9% Injectable Flush: 10 mL IntraVenous Flush Every 12 Hours PRN Medications -------- 1. Heparin Flush 10 unit/ mL PF Injectable: 5 mL IntraVenous Flush Every 12 Hours 2. Heparin Flush 10 unit/ mL PF Injectable PRN: 5 mL IntraVenous Flush According to Flush Policy 3. HYDROmorphone Injectable: 0.2 mg IntraVenous Push Every 4 Hours 4. Ondansetron Injectable: 4 mg IntraVenous Push Every 6 Hours 5. oxyCODONE Immediate Release: 2.5 mg Oral Every 4 Hours 6. oxyCODONE Immediate Release: 5 mg Oral Every 4 Hours 7. Sodium Chloride 0.9% Injectable Flush PRN: 10 mL IntraVenous Flush According to Flush Policy 8. Sodium Chloride 0.9% Injectable Flush PRN: 20 mL IntraVenous Flush According to Flush Policy Currently Suspended Medications -------- 1. Apixaban: 5 mg Oral Every 12 Hours Recent Lab Results: Results: I have reviewed these laboratory results: C Reactive Protein, Serum 01-Feb-2023 21:08:00 ResultValue C Reactive Protein, Serum 3.31 A Sedimentation Rate, Erythrocyte 01-Feb-2023 21:08:00 ResultValue Sedimentation Rate, Erythrocyte 93 H Assessment and Plan: Daily Risk Screen: Does patient have a central lineyes Central Line TypePICC Plan for PICC removal todayno The patient continues to require a PICC forparenteral medication Code Status: Code StatusFull Code Assessment: 83M with metastatic melanoma s/p R inguinal LN dissection sartorius flap reconstruction, excision of skin lesion on 12/23/22. R groin healing appropriately without signs of infections. PICC placed yesterday for home going antibiotics for sternal cavity per ID. Pt remains HDstable and afebrile on RNF. Plan - will continue to monitor drain output - per additions from yesterdays progress note, patient to be discharged with RIGHT groin drain until follow up with Dr Bennett in 1-2 weeks. Pt seen and discussed with fellow Dr. Vargas, and Senior, Dr Fady Boland MD [facility] PGY1 General Surgery Surgical Oncology [id number] Attestation: Note Completion: I am a: Resident/Fellow Attending AttestationI reviewed the resident/fellows documentation and discussed the patient with the resident/fellow. I agree with the resident/fellows medical decision making as documented in the note. Electronic Signatures: D (more content not included)... Normal [facility] Daily Progress Note-Thoracic and Esophageal Surgeryon 02-02-2023 Daily Progress Note-Thoracic and Esophageal Surgery Service: Thoracic & Esophageal Surgery Subjective Data: EMPERATRIZ EPPS is a 83 year old Male who is Hospital Day # 7 and POD #3 for 1. sternal wound debridement;2. sternal wound primary closure. Overnight Events: Patient had an uneventful night. Objective Data: Objective Information: T PRBPMAPSpO2 [id number]% Date/Time02/02 9: 9: 9: 9: 9: 9:50 Range(35.9C - 37.3C ) (65 - 89 ) (16 - 20 ) (86 - 138 )/ (52 - 82 ) (64 - 100 ) (94% - 96% ) Highest temp of 37.3 C was recorded at 02/01 2:49 Pain reported at 02/02 10:59: 1 = Mild ---- Intake and Output ----- Mn/Dy/Year TimeInt[facility]OutCar[facility] Feb 02, 2023 6:00 [id number] Feb 01, 2023 10:00 [id number] Feb 01, 2023 2:00 [id number] The Intake and Output Totals for the last 24 hours are: IntakeOutputNet [id number] Physical Exam by System: Constitutional: A&Ox3, NAD Respiratory/Thorax: CTA B; L sternoclavicular jersey x1 to bulb sxn; 80ml drainage last 24 hrs Cardiovascular: S1S2 reg; tele shows NSR with rate in 70s Gastrointestinal: soft, ND, NT, +BS, Extremities: no LE edema no calf tenderness Psychological: Appropriate mood and behavior Medication: Medications: Continuous Medications -------- No continuous medications are active Scheduled Medications -------- 1. Acetaminophen: 650 mg Oral Every 4 Hours 2. Alfuzosin Extended Release: 10 mg Oral Every 24 Hours 3. amLODIPine (NORVASC): 5 mg Oral Daily 4. Apixaban: 5 mg Oral Every 12 Hours 5. Lactated Ringers IV Bolus: 500 mL IntraVenous Piggyback Once 6. Levothyroxine: 112 microgram(s) Oral Daily 7. Metoprolol Tartrate: 25 mg Oral 2 Times a Day 8. Pantoprazole: 40 mg Oral Daily 9. Piperacillin - Tazobactam 3.375 gram/Iso-osmotic 50 mL Premix IVPB: 50 mL IntraVenous Piggyback Every 6 Hours 10. Polyethylene Glycol: 17 gram(s) Oral Daily 11. Sodium Chloride 0.9% Injectable Flush: 10 mL IntraVenous Flush Every 12 Hours PRN Medications -------- 1. Heparin Flush 10 unit/ mL PF Injectable: 5 mL IntraVenous Flush Every 12 Hours 2. Heparin Flush 10 unit/ mL PF Injectable PRN: 5 mL IntraVenous Flush According to Flush Policy 3. HYDROmorphone Injectable: 0.2 mg IntraVenous Push Every 4 Hours 4. Ondansetron Injectable: 4 mg IntraVenous Push Every 6 Hours 5. oxyCODONE Immediate Release: 2.5 mg Oral Every 4 Hours 6. oxyCODONE Immediate Release: 5 mg Oral Every 4 Hours 7. Sodium Chloride 0.9% Injectable Flush PRN: 10 mL IntraVenous Flush According to Flush Policy 8. Sodium Chloride 0.9% Injectable Flush PRN: 20 mL IntraVenous Flush According to Flush Policy Recent Lab Results: Results: CBC: 02/02/2023 06:05 \ Hgb / \ 9.1 L / WBC Plt 6.0 613 H / Hct \ / 29.1 L \ RBC: 2.94 L MCV: 99 BMP: 02/02/2023 06:05 NA+ Cl- BUN / 141 105 13 / -------- Glucose --- 79 K+ HCO3- Creat \ 3.7 30 0.98 \ Calcium : 7.9 L Anion Gap : 10 Radiology Results: Results: PICC Line Radiology Placement (patient 5yrs or older) [Feb 01 2023 5:57PM] Xray Chest 1 View [Feb 01 2023 11:34AM] Xray Chest 1 View [Jan 31 2023 9:35AM] Assessment and Plan: Daily Risk Screen: Does patient have a central lineyes Central Line TypePICC Plan for PICC removal todayno The patient continues to require a PICC forparenteral medication Code Status: Code StatusFull Code Assessment: Pt is an 83 year old man with hx of [...] FARNAZ in place, cloudy serosanguinous fluid PLAN: Neuro: incisional discomfort -cont PO analgesics -Bowel regimen while on narcotics -Encourage OOB ambulation Pulm: FARNAZ drain management; -daily CXR -cont IS -Maintain chest FARNAZ to bulb suction -monitor drainage Q-shift CV: hx of a- fib on Metoprolol and Eliquis at home -Continue home metoprolol 25mg BID -cont home Amlodipine today -cont home Eliquis today since no additional surgical plans -Continuous telemetry and VS every 4hrs while hospitalized -Replace electrolytes as needed GI: hx of GERD, on Omeprazole at home -cont regular diet -cont Bowel Regimen -cont Home PPI Equivalent for GERD : hx of prostate c (more content not included)... Normal [facility] MAGNESIUMon 02-02-2023 Magnesium [Mass/Vol] 2.20 mg/dL Normal 1.60 - 2.40 [facility] Comment on above: Performed By: #### M G ####[id number] [place] [address] Order Reconciliationon 02-02 Order Reconciliation Page 1 Discharge Reconciliation Document Reconciliation Type: Discharge requested on behalf of Kilo Yadav (Physician A R Specialist) done by Kilo Yadav (PA (PHYSICIAN)) Discharge - Reconciliation: 02-Feb-2023 11:39 by: Kilo Yadav (PA (PHYSICIAN)) Home Medications EnteredHOME MEDICATIONS AT DISCHARGE DateReconciliation Comment/ Additional Information acetaminophen 325 mg oral tablet 2 tab(s) orally every 6 hours 24-Dec-2022 10:04 acetaminophen 325 mg oral tablet 2 tab(s) orally every 6 hours 24-Dec-2022 10:04 acetaminophen 325 mg oral tablet is continued as acetaminophen 325 mg oral tablet acetylcysteine 600 mg oral capsule 1 cap(s) orally 2 times a day 27-Jan-2023 13:14 acetylcysteine 600 mg oral capsule 1 cap(s) orally 2 times a day 27-Jan-2023 13:14 acetylcysteine 600 mg oral capsule is continued as acetylcysteine 600 mg oral capsule alfuzosin 10 mg oral tablet, extended release 1 tab(s) orally once a day 24-Dec-2022 09:57 alfuzosin 10 mg oral tablet, extended release 1 tab(s) orally once a day 24-Dec-2022 09:57 alfuzosin 10 mg oral tablet, extended release is continued as alfuzosin 10 mg oral tablet, extended release amLODIPine 5 mg oral tablet 1 tab(s) orally once a day 23-Dec-2022 15:09 amLODIPine 5 mg oral tablet 1 tab(s) orally once a day 23-Dec-2022 15:09 amLODIPine 5 mg oral tablet is continued as amLODIPine 5 mg oral tablet apixaban 5 mg oral tablet 1 tab(s) orally 2 times a day 24-Dec-2022 10:07 apixaban 5 mg oral tablet 1 tab(s) orally 2 times a day 24-Dec-2022 10:07 apixaban 5 mg oral tablet is continued as apixaban 5 mg oral tablet calcium (as carbonate) 600 mg oral tablet 1 tab(s) orally once a day 24-Dec-2022 09:58 calcium (as carbonate) 600 mg oral tablet 1 tab(s) orally once a day 24-Dec-2022 09:58 calcium (as carbonate) 600 mg oral tablet is continued as calcium (as carbonate) 600 mg oral tablet gabapentin 600 mg oral tablet 0.5 tab(s) orally once a day (in the morning) and 1 tablet at night 27-Jan-2023 13:21 gabapentin 600 mg oral tablet 0.5 tab(s) orally once a day (in the morning) and 1 tablet at night 27-Jan-2023 13:21 gabapentin 600 mg oral tablet is continued as gabapentin 600 mg oral tablet levothyroxine 112 mcg (0.112 mg) oral tablet 1 tab(s) orally once a day 24-Dec-2022 09:56 levothyroxine 112 mcg (0.112 mg) oral tablet 1 tab(s) orally once a day 24-Dec-2022 09:56 levothyroxine 112 mcg (0.112 mg) oral tablet is continued as levothyroxine 112 mcg (0.112 mg) oral tablet metoprolol tartrate 25 mg oral tablet 1 tab(s) orally 2 times a day 27-Jan-2023 13:07 metoprolol tartrate 25 mg oral tablet 1 tab(s) orally 2 times a day 27-Jan-2023 13:07 metoprolol tartrate 25 mg oral tablet is continued as metoprolol tartrate 25 mg oral tablet Multiple Vitamins oral tablet 1 tab(s) orally once a day 27-Jan-2023 13:08 Multiple Vitamins oral tablet 1 tab(s) orally once a day 27-Jan-2023 13:08 Multiple Vitamins oral tablet is continued as Multiple Vitamins oral tablet omeprazole 40 mg oral delayed release capsule 1 cap(s) orally once a day 07-May-2021 06:25 omeprazole 40 mg oral delayed release capsule 1 cap(s) orally once a day 07-May-2021 06:25 omeprazole 40 mg oral delayed release capsule is continued as omeprazole 40 mg oral delayed release capsule Zinc 140 mg (as elemental zinc 50 mg) oral tablet 1 tab(s) orally once a day 24-Dec-2022 09:57 Zinc 140 mg (as elemental zinc 50 mg) oral tablet 1 tab(s) orally once a day 24-Dec-2022 09:57 Zinc 140 mg (as elemental zinc 50 mg) oral tablet is continued as Zinc 140 mg (as elemental zinc 50 mg) oral tablet Current OrdersDateHOME MEDICATIONS AT DISCHARGE DateReconciliation Comment/ Additional Information Acetaminophen Tablet (TYLENOL)DOSE = 650 mg Oral Every 4 Hours 30-Jan-2023 16:40 Acetaminophen is not required Alfuzosin Extended Release Tablet, Extended Release (UROXATRAL)DOSE = 10 mg Oral Every 24 Hours 30-Jan-2023 11:48 Alfuzosin Extended Release is not required amLODIPine (NORVASC) TabletDOSE = 5 mg Oral Daily 01-Feb-2023 12:07 amLODIPine (NORVASC) is not required Apixaban Tablet (ELIQUIS)DOSE = 5 mg Oral Every 12 Hours 01-Feb-2023 12:07 Apixaban is not required cefTRIAXone 2 gram/Dextrose 5% IVPB Premixed Soln 50 mL (ROCEPHIN)Every 24 HoursRecommended Infusion Time: 30 minute(s) 02-Feb-2023 11:24 cefTRIAXone 2 g/50 [id number] dextrose intravenous solution intravenous every 24 hours for 6 weeks; stop date 03/15/2023* 02-Feb-2023 11:36 cefTRIAXone 2 gram/Dextrose 5% IVPB Premixed Soln 50 mL is continued as cefTRIAXone 2 g/50 [id number] dextrose intravenous solution Heparin Flush 10 unit/ mL PF Injectable via PICC LineVolume = 5 mL IntraVenous Flush Every 12 HoursClinician Notes: When patient has double lumen, flush both lumens 01-Feb-2023 14:04 Heparin Flush 10 unit/ mL PF Injectable is not required Heparin Flush 10 unit/ mL PF Injectable PRN via PICC LineVolume = 5 mL IntraVen (more content not included)... Normal [facility] SEDIMENTATION RATE, ERYTHROC YTEon 02-02-2023 SEDIMENTATION RATE, ERYTHROCYTE 93 mm/h High 0 - 20 [facility] Comment on above: Performed By: #### B MP #### [facility] [address] [place] [address] BASIC METABOLIC PANELon 03-0 Anion gap [Moles/Vol] 12 mmol/L Normal 10 - 20 [facility] Comment on above: Performed By: #### B MP #### [facility] [address] [place] [address] Calcium [Mass/Vol] 7.9 mg/dL Low 8.6 - 10.6 [facility] Comment on above: Performed By: #### B MP #### [facility] [address] [place] [address] Chloride [Moles/Vol] 103 mmol/L Normal 98 - 107 [facility] Comment on above: Performed By: #### B MP #### [facility] [address] [place] [address] Creatinine [Mass/Vol] 1.04 mg/dL Normal 0.50 - 1.30 [facility] Comment on above: Performed By: #### B MP #### [facility] [address] [place] [address] GFR/1.73 sq M.predicted among non-blacks MDRD (S/P/Bld) [Vol rate/Area] 72 mL/min/{1.73_m2} Normal >90 [facility] Comment on above: Result Comment: CALC ULATIONS OF ESTIMATED GFR ARE PERFORMED USING THE 2020 CKD-EPI STUDY REFIT EQUATION WITHOUT THE RACE VARIABLE FOR THE IDMS-TRACEABLE CREATININE METHODS. https://jasn.asnjournals.org/content/early/ASN.960 4098560 Performed By: #### B MP #### [facility] [address] [place] [address] Glucose [Mass/Vol] 77 mg/dL Normal 74 - 99 [facility] Comment on above: Performed By: #### B MP #### [facility] [address] [place] [address] HCO3 (Bld) [Moles/Vol] 31 mmol/L Normal 21 - 32 [facility] Comment on above: Performed By: #### B MP #### [facility] [address] [place] [address] Potassium [Moles/Vol] 4.1 mmol/L Normal 3.5 - 5.3 [facility] Comment on above: Performed By: #### B MP #### [facility] [address] [place] [address] Sodium [Moles/Vol] 142 mmol/L Normal 136 - 145 [facility] Comment on above: Performed By: #### B MP #### [place] [address] [place] [address] Urea nitrogen [Mass/Vol] 15 mg/dL Normal 6 - 23 [facility] Comment on above: Performed By: #### B MP #### [facility] [address] [place] [address] CBCon 02-01-2023 Erythrocyte distribution width (RBC) [Ratio] 13.4 % Normal 11.5 - 14.5 [facility] Comment on above: Performed By: #### B MP #### [facility] [address] [place] [address] Hematocrit (Bld) [Volume fraction] 27.8 % Low 41.0 - 52.0 [facility] Comment on above: Performed By: #### B MP #### [facility] [address] [place] [address] Hemoglobin (Bld) [Mass/Vol] 8.8 g/dL Low 13.5 - 17.5 [facility] Comment on above: Performed By: #### B MP #### [facility] [address] [place] [address] MCHC (RBC) [Mass/Vol] 31.7 g/dL Low 32.0 - 36.0 [facility] Comment on above: Performed By: #### B MP #### [facility] [address] [place] [address] MCV (RBC) [Entitic vol] 98 fL Normal 80 - 100 [facility] Comment on above: Performed By: #### B MP #### [facility] [address] [place] [address] NUCLEATED RBC 0.0 /100 WBC Normal 0.0-0.0 [facility] Comment on above: Performed By: #### B MP #### [facility] [address] [place] [address] Platelets (Bld) [#/Vol] 481 10*3/uL High 150 - 450 [facility] Comment on above: Performed By: #### B MP #### [facility] [address] [place] [address] RBC 2.85 x10E12/L Low 4.50 - 5.90 [facility] Comment on above: Performed By: #### B MP #### [facility] [address] [place] [address] WBC (Bld) [#/Vol] 5.9 10*3/uL Normal 4.4 - 11.3 [facility] Comment on above: Performed By: #### B MP #### [facility] [address] [place] [address] Clinical Event Note-infectio us disease - OPAT details.on 02-01-2023 Clinical Event Note-infectious disease - OPAT details. Clinical Event: Clinical Event Note: Topicinfectious disease - OPAT details. Details - Ceftriaxone 2g q24hrs IV x 6 ws (01/30 - 03/12). - Pt will need PICC line/midline - Please obtain weekly CBC with diff, CMP, CRP, ESR, and fax results to: [phone]; attn: Dr Nguyen. - Will schedule f/u with Dr Nguyen. - Will need f/u imaging OP to assess infection. Case discussed with Dr Nguyen, who agrees with assessment/recommendatio ns. Brenda Hirsch MD PGY-5, ID fellow. Team A pager [phone] For new consults, [place] [phone] Electronic Signatures: Brenda Hirsch (Fellow)) (Signed 01-Feb-2023 17:07) Authored: Clinical Event Note Mohamud Nguyen) (Signed 02-Feb-2023 11:26) Authored: Clinical Event Note Co-Signer: Clinical Event Note Last Updated: 02-Feb-2023 11:26 by Mohamud Nguyen) Normal [facility] Consult-Infectious Diseaseon 02-01-2023 Consult-Infectious Disease Service: Service: Infectious Disease Consult: Consult requested by (Attending Name): María Boggs Reason: management of abscess cavity in the sternoclavicular joint that tracked posteriorly to the clavicle with nonviable bone History of Present Illness: HPI: HPI: Emperatriz Epps is a 83 yo M with Hx of metastatic melanoma s/p recent groin LN resection (also s/p Keytruda course last dose 05/2022) and recent COVID infxn who presented 01/26/23 after 1 week of pleuritic CP and fevers and was subsequently found to have an infectious left extrapleural apical abscess extending to the sternoclavicular joint. Infectious Disease has been consulted for outpatient management plan for GBS SSTI/joint infection upon discharge today. Pt noted experiencing sharp pain in his left anterior chest for ~1 week when his home nurse who checks his recent groin operation site noticed redness and swelling near the left clavicle. According to the patient, this area had been bothering him and was notable extremely tender to palpation. He described the skin findings as a large, round, red patch that felt like there was fluid underneath. After his nurse suggested he present to the ED, the patient was diagnosed with pleurisy at an OSH based on CXR and was sent home on prednisone. During that course, he noted his symptoms dramatically worsening, at which point he presented again to the hospital, received a CT chest, and was diagnosed with the aforementioned abscess and transferred to [facility] for management. Upon arrival, patient had WBC of 15.5 and was started on vancomycin/Zosyn upon admission. His leukocytosis quickly resolved the next day after abx and the beginning of source control (see below). Today, the patient was in good spirits and is feeling significantly better than on admission. He denies fevers/chills/significan t pain. Procedures: 01/27/23 IR drainage of abscess 01/28/23 I&D of left sternoclavicular abscess, debridement of left clavicle and sternum, wound vac left 01/30/23 sternoclavicular wound debridement and closure Microbiology: Abscess fluid (from 01/27 drainage): PCN-sensitive GBS Surgical wound from sternoclavicular joint (from 01/28 I&D): PCN and ceftriaxone-susceptible GBS Antibiotics to date: Vancomycin, 01/27-01/30 Piperacillin/Tazobactam, 01/27-present Allergies: No Known Allergies: Objective: Objective Information: T PRBPMAPSpO2 Value36.36804602/7796% Date/Time02/01 13: 13: 13: 13: 13:10 Range(36.6C - 37.5C ) (65 - 89 ) (17 - 20 ) (114 - 149 )/ (60 - 85 ) (93% - 96% ) Highest temp of 37.5 C was recorded at 01/31 18:31 Physical Exam by System: Constitutional: Well developed, awake/alert/oriented x3, no distress, alert and cooperative Eyes: PERRL, EOMI, clear sclera Respiratory/Thorax: Patent airways, CTAB, normal breath sounds with good chest expansion, thorax symmetric, no pain with respiration Cardiovascular: Extremities well-perfused Gastrointestinal: Nondistended, soft, non-tender, no rebound tenderness or guarding, no masses palpable Neurological: alert and oriented x3, intact senses, motor, response and reflexes, normal strength Psychological: Appropriate mood and behavior, moments of tearfulness due to situation Skin: Left shoulder debridement site wound clean, dry, non-erythematous though slightly edematous Right groin excision site would clean, dry, well-healing Medications: Medications: Continuous Medications -------- No continuous medications are active Scheduled Medications -------- 1. Acetaminophen: 650 mg Oral Every 4 Hours 2. Alfuzosin Extended Release: 10 mg Oral Every 24 Hours 3. amLODIPine (NORVASC): 5 mg Oral Daily 4. Apixaban: 5 mg Oral Every 12 Hours 5. Levothyroxine: 112 microgram(s) Oral Daily 6. Metoprolol Tartrate: 25 mg Oral 2 Times a Day 7. Pantoprazole: 40 mg Oral Daily 8. Piperacillin - Tazobactam 3.375 gram/Iso-osmotic 50 mL Premix IVPB: 50 mL IntraVenous Piggyback Every 6 Hours 9. Polyethylene Glycol: 17 gram(s) Oral Daily 10. Sodium Chloride 0.9% Injectable Flush: 10 mL IntraVenous Flush Every 12 Hours PRN Medications -------- 1. Heparin Flush 10 unit/ mL PF Injectable: 5 mL IntraVenous Flush Every 12 Hours 2. Heparin Flush 10 unit/ mL PF Injectable PRN: 5 mL IntraVenous Flush According to Flush Policy 3. HYDROmorphone Injectable: 0.2 mg IntraVenous Push Every 4 Hours 4. Lidocaine 1% Injectable (PICC KIT): 1 mL IntraDermal Once 5. Ondansetron Injectable: 4 mg IntraVenous Push Every 6 Hours 6. oxyCODONE Immediate Release: 2.5 mg Oral Every 4 Hours 7. oxyCODONE Immediate Release: 5 mg Oral Every 4 Hours 8. Sodium Chloride 0.9% Injectable Flush PRN: 10 mL IntraVenous Flush According to Flush Policy 9. Sodium Chloride 0.9% Injectable Flush PRN: 20 mL IntraVenous Flush According (more content not included)... Normal [facility] Daily Progress Note-Surgical Oncologyon 02-01-2023 Daily Progress Note-Surgical Oncology Service: Surgical Oncology Subjective Data: EMPERATRIZ EPPS is a 83 year old Male who is Hospital Day # 6 and POD #2 for 1. sternal wound debridement;2. sternal wound primary closure. Additional Information: No acute events over night. No immediate complaints. Denies LEDESMA, CP, SOB, N/V, F/C, bowel/bladder changes, new focal neural deficits R groin 185cc (from 120cc); L chest wall [id number] (from 85cc) Last BM 01/30/2023, UOP 2.5L Tmax 37.3, no tachycardia or hypotension Objective Data: Objective Information: T PRBPMAPSpO2 [id number]/8294% Date/Time02/01 6: 6: 6: 6: 6:23 Range(36.8C - 37.5C ) (65 - 84 ) (17 - 20 ) (117 - 149 )/ (60 - 85 ) (93% - 96% ) Highest temp of 37.5 C was recorded at 01/31 18:31 Pain reported at 02/01 6:42: 4 = Moderate ---- Intake and Output ----- Mn/Dy/[facility] Feb 01, 2023 6:00 [id number] Jan 31, 2023 10:00 [id number] Jan 31, 2023 2:00 [id number] The Intake and Output Totals for the last 24 hours are: [facility] [id number] Physical Exam by System: Constitutional: resting comfortably in bed, no acute distress Eyes: clear sclera ENMT: moist mucus membranes Head/Neck: atraumatic, normocephalic Respiratory/Thorax: unlaboured on room air Cardiovascular: regular. Extremities warm and well perfused Gastrointestinal: abdomen non tender, non distended, soft, non peritonitic. Genitourinary: deferred Musculoskeletal: moves all extremities Extremities: R groin incision well approximated clean dry and intact without erythema, fluctuance, or crepitus. R groin drain to FARNAZ suction with ~20cc serous output. L neck drain with 50cc serosang output Neurological: No focal deficits Psychological: appropriate mood and affect Skin: warm well perfused. R groin incision well approximated clean dry and intact without erythema, fluctuance, or crepitus Medication: Medications: Continuous Medications -------- No continuous medications are active Scheduled Medications -------- 1. Acetaminophen: 650 mg Oral Every 4 Hours 2. Alfuzosin Extended Release: 10 mg Oral Every 24 Hours 3. Enoxaparin SubCutaneous: 40 mg SubCutaneous Every 24 Hours 4. Levothyroxine: 112 microgram(s) Oral Daily 5. Metoprolol Tartrate: 25 mg Oral 2 Times a Day 6. Pantoprazole: 40 mg Oral Daily 7. Piperacillin - Tazobactam 3.375 gram/Iso-osmotic 50 mL Premix IVPB: 50 mL IntraVenous Piggyback Every 6 Hours 8. Polyethylene Glycol: 17 gram(s) Oral Daily PRN Medications -------- 1. HYDROmorphone Injectable: 0.2 mg IntraVenous Push Every 4 Hours 2. Ondansetron Injectable: 4 mg IntraVenous Push Every 6 Hours 3. oxyCODONE Immediate Release: 2.5 mg Oral Every 4 Hours 4. oxyCODONE Immediate Release: 5 mg Oral Every 4 Hours Recent Lab Results: Results: CBC: 02/01/2023 04:04 \ Hgb / \ 8.8 L / WBC Plt 5.9 481 H / Hct \ / 27.8 L \ RBC: 2.85 L MCV: 98 BMP: 02/01/2023 04:04 NA+ Cl- BUN / 142 103 15 / -------- Glucose --- 77 K+ HCO3- Creat \ 4.1 31 1.04 \ Calcium : 7.9 L Anion Gap : 12 Assessment and Plan: Daily Risk Screen: Does patient have an indwelling urinary cathetern/a consulting service Does patient have a central linen/a consulting service Comorbidities: Comorbidityanemia Anemiaanemia of chronic disease, iron deficiency anemia Code Status: Code StatusFull Code Assessment: 83M with metastatic melanoma s/p R inguinal LN dissection sartorius flap reconstruction, excision of skin lesion on 12/23/22. R groin healing appropriately without signs of infections. Pt remains HDstable and afebrile on RNF. Plan - no changes to plan today - will continue to monitor drain output - tentatively plan to remove when output <50cc for atleast 2d Will continue to follow Pt seen and discussed with attending Dr Bennett, fellow Dr. Vargas, and Senior, Dr Fady Boland MD MAS[facility] PGY1 General Surgery Surgical Oncology [id number] Attestation: Note Completion: I am a: Resident/Fellow Attending AttestationI reviewed the resident/fellows documentation and discussed the patient with the resident/fellow. I agree with the resident/fellows medical decision making as documented in the note. Comments/ Additional Findings Maintain the one last Right groin drain until follow up with me (1-2 weeks). I can coordinate with Thoracic follow up if needed. Electronic Signatures: Janie Boland (Resident)) (Signed 01-Feb-2023 07:41) Authored: Service, Subjective Data, Objective Data, Assessment and Plan, Note Completion Hussein Bennett) (Signed 01-Feb-2023 13:11) Authored: Note Completion Co-Signer: Assessment and Plan Last Updated: 01-Feb-2023 13:11 by Hussein Bennett (more content not included)... Normal [facility] Daily Progress Note-Thoracic and Esophageal Surgeryon 02-01-2023 Daily Progress Note-Thoracic and Esophageal Surgery Service: Thoracic & Esophageal Surgery Subjective Data: EMPERATRIZ EPPS is a 83 year old Male who is Hospital Day # 6 and POD #2 for 1. sternal wound debridement;2. sternal wound primary closure. Additional Information: left chest tenderness and left arm discomfort chest FARNAZ with cloudy fluid - ~90cc in 24hrs Objective Data: Objective Information: T PRBPMAPSpO2 Value36.49820209/7495% Date/Time02/01 10: 10: 10: 10: 10:48 Range(36.6C - 37.5C ) (65 - 89 ) (17 - 20 ) (114 - 149 )/ (60 - 85 ) (93% - 96% ) Highest temp of 37.5 C was recorded at 01/31 18:31 Pain reported at 02/01 9:40: 4 = Moderate ---- Intake and Output ----- Mn/Dy/Year TimeIntakeOutputNet Feb 01, 2023 6:00 [id number] Jan 31, 2023 10:00 [id number] Jan 31, 2023 2:00 [id number] The Intake and Output Totals for the last 24 hours are: IntakeOutputNet [id number] T PRBPMAPSpO2 Value36.37060664/7495% Date/Time02/01 10: 10: 10: 10: 10:48 Range(36.6C - 37.5C ) (65 - 89 ) (17 - 20 ) (114 - 149 )/ (60 - 85 ) (93% - 96% ) Highest temp of 37.5 C was recorded at 01/31 18:31 Pain reported at 02/01 9:40: 4 = Moderate Weights 02/01 2:49: Weight in kg (Weight (kg)) 88.6 02/01 2:49: Weight in lbs ((lbs)) 195.3 ---- Intake and Output ----- Mn/Dy/[facility] TimeInt[facility]Out[facility] Feb 01, 2023 6:00 [id number] Jan 31, 2023 10:00 [id number] Jan 31, 2023 2:00 [id number] The Intake and Output Totals for the last 24 hours are: [facility] [id number] Physical Exam by System: Constitutional: Well developed, awake/alert/oriented x3, no distress, alert and cooperative Respiratory/Thorax: clear bilaterally, oxygenating well on room air Cardiovascular: RRR, telemetry with NSR Gastrointestinal: large, soft , not tender, tolerating diet well, BM yesterday Extremities: no edema or calf tenderness Psychological: Appropriate mood and behavior Skin: left chest wound with redness and edema, tenderness right groin FARNAZ drain with serosanguinous fluid 185cc in 24hrs left anterior chest FARNAZ 90 cc of cloudy sero sanguinous output Medication: Medications: Continuous Medications -------- No continuous medications are active Scheduled Medications -------- 1. Acetaminophen: 650 mg Oral Every 4 Hours 2. Alfuzosin Extended Release: 10 mg Oral Every 24 Hours 3. Enoxaparin SubCutaneous: 40 mg SubCutaneous Every 24 Hours 4. Levothyroxine: 112 microgram(s) Oral Daily 5. Metoprolol Tartrate: 25 mg Oral 2 Times a Day 6. Pantoprazole: 40 mg Oral Daily 7. Piperacillin - Tazobactam 3.375 gram/Iso-osmotic 50 mL Premix IVPB: 50 mL IntraVenous Piggyback Every 6 Hours 8. Polyethylene Glycol: 17 gram(s) Oral Daily PRN Medications -------- 1. HYDROmorphone Injectable: 0.2 mg IntraVenous Push Every 4 Hours 2. Ondansetron Injectable: 4 mg IntraVenous Push Every 6 Hours 3. oxyCODONE Immediate Release: 2.5 mg Oral Every 4 Hours 4. oxyCODONE Immediate Release: 5 mg Oral Every 4 Hours Recent Lab Results: Results: CBC: 02/01/2023 04:04 \ Hgb / \ 8.8 L / WBC Plt 5.9 481 H / Hct \ / 27.8 L \ RBC: 2.85 L MCV: 98 BMP: 02/01/2023 04:04 NA+ Cl- BUN / 142 103 15 / -------- Glucose --- 77 K+ HCO3- Creat \ 4.1 31 1.04 \ Calcium : 7.9 L Anion Gap : 12 I have reviewed these laboratory results: Complete Blood Count 01-Feb-2023 04:04:00 ResultValue White Blood Cell Count 5.9 Nucleated Erythrocyte Count 0.0 Red Blood Cell Count 2.85 L HGB 8.8 L HCT 27.8 L MCV 98 MCHC 31.7 L PLT 481 H RDW-CV 13.4 Basic Metabolic Panel 01-Feb-2023 04:04:00 ResultValue Glucose, Serum 77 NA 142 K 4.1 CL 103 Bicarbonate, Serum 31 Anion Gap, Serum 12 BUN 15 CREAT 1.04 GFR Male 72 Calcium, Serum 7.9 L Magnesium, Serum 01-Feb-2023 04:04:00 ResultValue Magnesium, Serum 2.24 Vancomycin Level, Trough 31-Jan-2023 08:17:00 ResultValue Vancomycin Level, Trough 12.5 Radiology Results: Results: Impression: 1. Mild leftapical opacity, similar to previous. This could be due to previous consolidation, pleural fluid, or postoperative change. 2. Medical devices as above. Xray Chest 1 View [Feb 01 2023 11:34AM] Assessment and Plan: Code Status: Code StatusFull Code Assessment: 83 year old man with hx [...] drain in pace with purulent output , cu (more content not included)... Normal [facility] MAGNESIUMon 02-01-2023 Magnesium [Mass/Vol] 2.24 mg/dL Normal 1.60 - 2.40 [facility] Comment on above: Performed By: #### C OVSC #### [facility] [id number] [place] [address] OT Evaluation v2-individual therapyon 02-01-2023 OT Evaluation v2-individual therapy Rehab: Info: Mode of Treatmentoccupational therapy; individual therapy Time IN11:06 Time OUT11:42 Total Treatment [id number] Patient in ... at end of sessionsitting at EOB Communicated with ... at end of sessionbedside nurse Patient Effortexcellent Symptoms Noted During/After Treatmentsignificant change in vital signs; dizziness Patient Profile Reviewedyes Onset of Illness/Injury or Date of [id number] Reason for Referralincision and drainage of left sternoclavicular abscess, debridement of left clavicle and sternum General Observations of PatientPt in supine on approach, cooperative and willing to participate in OT. Pt c/o lightheadedness with amb to and from bathroom, Vitals obtained, BP low, pt returned back to supine and RN was notified. 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, prostate Ca s/p brachytherapy, GERD, HTN, HLD, Paroxysmal AFIB, Rheumatoid Arthritis Hand Dominanceright Precautions/Limitationsn o known precautions/limitations Ambulation Skills - Previous Level of Functionindependent Transfer Skills - Previous Level of Functionindependent ADL Skills - Previous Level of Functionindependent; Pt is indep at baseline, had assistance form cousin d/t pain for last few weeks Work/Leisure Activity - Previous Level of Functionindependent; reports had assistance with driving for last 2 weeks Living Arrangementshouse Lives Withalone; has support from friend Home Accessibilityno concerns Type of Equipment Currently In the Homestraight cane; grab bar; shower chair; rolling walker Line and Tubestelemetry; FARNAZ x2 During Treatment Patient Positionsitting During Treatment Blood Pressure [id number] mmHg During Treatment Diastolic (mm Hg)61 mmHg During Treatment Heart Rate (beats/min)70 During Treatment SpO2 (%)95 % During Treatment Oxygen Deliveryroom air Post Treatment Patient Positionsupine Post Treatment Blood Pressure [id number] Post Treatment Diastolic (mm Hg)69 mmHg Post Treatment Heart Rate (beats/min)63 Post Treatment SpO2 (%)93 % Post Treatment Oxygen Deliveryroom air Vision/Cognition: Affect/Mental Status (Cognitive)WFL Orientation Status (Cognition)oriented x 3 Cognition Testsb CAM negative Able to Follow Commands (Receptive)WFL ROM: Upper Extremity: Range of Motionright upper extremity ROM WFL; L shld flex limited to ~ 30 degree AROM, able to get to ~ 90 degree shld flex with active assist with gravity eliminated remainder of L UE WFL Lower Extremity: Range of Motionleft lower extremity ROM WFL; right lower extremity ROM WFL MMT: Upper Extremity: Manual Muscle Testing (MMT)formal MMT deferred d/t surgery, pt appears to be WFL Mobility/Tone: Bed Mobility Assessment/Interventions supine to sit; sit to supine [id number]-Jry [place] (Bed Mobility)contact guard Gfh-xc-Telnxp [place] (Bed Mobility)contact guard Transfer Assessment/Interventions sit to stand transfer; stand to sit transfer Sit-Stand [place] (Transfers)contact guard Stand-Sit [place] (Transfers)contact guard ADL: BADL Assessment/Interventiont oileting; feeding; grooming; lower body dressing; upper body dressing; bathing [place] Level (Bathing)minimum assist (75% patient effort) Comment (Bathing)anticipate [place] Level (Upper Body Dressing)upper body dressing skills; minimum assist (75% patient effort) [place] Level (Lower Body Dressing)moderate assist (50% patient effort) Comment (Lower Body Dressing)pt educated on LH AE use [place] Level (Grooming)set up Position (Grooming)sitting [place] Level (Feeding)independent [place] Level (Toileting)contact guard Motor: Sitting, Static (Balance)good balance Sitting, Dynamic (Balance)good balance Two-yu-Bvnhu (Balance)good balance Standing, Static (Balance)good balance Standing, Dynamic (Balance)fair balance CGA/min A d/t c/o dizziness/lightheadednes s and low BP Sensory: Comment, Pre/Post Treatment PainL shld pain wit ROM Sensory General Assessmentno sensation deficits identified Impression: Criteria for Skilled Therapeutic Interventions Met (OT Eval)yes; treatment indicated OT Diagnosisimpaired ADLs Patient/Family Goals Statement (OT Eval)pt wants to remain indep Rehab Potential (OT Eval)good, to achieve stated therapy goals Therapy Frequency (OT Eval)3 times/wk Planned Therapy Interventions (OT Eval)ADL retraining; balance training; bed mobility training; ROM (range of motion); transfer training Outcomes Tools: Putting on and taking off regular lower body clothinga lot Bathing (including washing, rinsing, drying)a lot Toileting, which includes using toilet, bedpan or urinala little Putting on and taking off regular upper body clothinga little Taking care of personal grooming such as brushing teetha little Eating Mealsnone AM-PAC (OT) Total Score17 Short Te (more content not included)... Normal [facility] TH CHEST 1 VIEWon 02-01-2023 CHEST 1 VIEW Patient Name: EMPERATRIZ EPPS STUDY: CHEST 1 VIEW; INDICATION: S/p debridement of SC joint. . COMPARISON: Chest radiographs since 01/27/2023. ACCESSION NUMBER(S): [id number] ORDERING CLINICIAN: GISELA ARORA FINDINGS: Single AP view of the chest. Right chest wall MediPort again seen with tip overlying the superior cavoatrial junction. Left-sided chest tube again seen with tip projecting over the left upper lung zone. The cardiomediastinal silhouette is stable in size and configuration. There is mild residual opacity of the left pulmonary apex, the appearance of which is similar to previous. Remaining lung thomas are otherwise clear of significant new mass or infiltrate. There is no significant pleural fluid or pneumothorax. No acute osseous abnormality. IMPRESSION: 1. Mild left apical opacity, similar to previous. This could be due to previous consolidation, pleural fluid, or postoperative change. 2. Medical devices as above. I personally reviewed the images/study and I agree with the findings as stated. This study was interpreted at [facility], [place], [place]. Electronically signed by: LELO AHN MD Normal [facility] CBCon 01-31-2023 Erythrocyte distribution width (RBC) [Ratio] 13.3 % Normal 11.5 - 14.5 [facility] Comment on above: Performed By: #### B MP #### [facility] [address] [place] [address] Hematocrit (Bld) [Volume fraction] 26.9 % Low 41.0 - 52.0 [facility] Comment on above: Performed By: #### B MP #### [facility] [address] [place] [address] Hemoglobin (Bld) [Mass/Vol] 8.7 g/dL Low 13.5 - 17.5 [facility] Comment on above: Performed By: #### B MP #### [facility] [address] [place] [address] MCHC (RBC) [Mass/Vol] 32.3 g/dL Normal 32.0 - 36.0 [facility] Comment on above: Performed By: #### B MP #### [facility] [address] [place] [address] MCV (RBC) [Entitic vol] 96 fL Normal 80 - 100 U [facility] Comment on above: Performed By: #### B MP #### [facility] [address] [place] [address] NUCLEATED RBC 0.0 /100 WBC Normal 0.0-0.0 [facility] Comment on above: Performed By: #### B MP #### [facility] [address] [place] [address] Platelets (Bld) [#/Vol] 462 10*3/uL High 150 - 450 [facility] Comment on above: Performed By: #### B MP #### [facility] [address] [place] [address] RBC 2.79 x10E12/L Low 4.50 - 5.90 [facility] Comment on above: Performed By: #### B MP #### [facility] [address] [place] [address] WBC (Bld) [#/Vol] 6.6 10*3/uL Normal 4.4 - 11.3 [facility] Comment on above: Performed By: #### B MP #### [facility] [address] [place] [address] Daily Progress Note-Thoracic and Esophageal Surgeryon 01-31-2023 Daily Progress Note-Thoracic and Esophageal Surgery Service: Thoracic & Esophageal Surgery Subjective Data: EMPERATRIZ EPPS is a 83 year old Male who is Hospital Day # 5 and POD #1 for 1. sternal wound debridement;2. sternal wound primary closure. Overnight Events: Patient had an uneventful night. Objective Data: Objective Information: T PRBPMAPSpO2 Value36.30725626/7095% Date/Time01/31 10: 10: 10:403 10:403 10:40 Range(36.2C - 37.4C ) (66 - 99 ) (17 - 20 ) (99 - 148 )/ (60 - 84 ) (93% - 96% ) As of 30-Jan-2023 10:51:00, patient is on 2 L/min of oxygen via room air. Highest temp of 37.4 C was recorded at 01/30 2:18 Pain reported at 01/31 10:01: 1 = Mild ---- Intake and Output ----- Mn/Dy/Year TimeIntakeOutputNet Jan 31, 2023 6:00 [id number] Jan 30, 2023 10:00 [id number] Jan 30, 2023 2:00 [id number] The Intake and Output Totals for the last 24 hours are: IntakeOutputNet [id number] Physical Exam by System: Constitutional: Well developed, awake/alert/oriented x3, no distress, alert and cooperative Respiratory/Thorax: clear bilaterally, oxygenating well on room air Cardiovascular: RRR Gastrointestinal: large, soft , not tender, tolerating diet well Extremities: no edema or calf tenderness. right inguinal drain in place with Psychological: Appropriate mood and behavior Skin: left chest wound covered island dressing. left jersey surgical drain with minimal output Medication: Medications: Continuous Medications -------- No continuous medications are active Scheduled Medications -------- 1. Acetaminophen: 650 mg Oral Every 4 Hours 2. Alfuzosin Extended Release: 10 mg Oral Every 24 Hours 3. Enoxaparin SubCutaneous: 40 mg SubCutaneous Every 24 Hours 4. Levothyroxine: 112 microgram(s) Oral Daily 5. Metoprolol Tartrate: 25 mg Oral 2 Times a Day 6. Pantoprazole: 40 mg Oral Daily 7. Piperacillin - Tazobactam 3.375 gram/Iso-osmotic 50 mL Premix IVPB: 50 mL IntraVenous Piggyback Every 6 Hours 8. Polyethylene Glycol: 17 gram(s) Oral Daily PRN Medications -------- 1. HYDROmorphone Injectable: 0.2 mg IntraVenous Push Every 4 Hours 2. Ondansetron Injectable: 4 mg IntraVenous Push Every 6 Hours 3. oxyCODONE Immediate Release: 2.5 mg Oral Every 4 Hours 4. oxyCODONE Immediate Release: 5 mg Oral Every 4 Hours Recent Lab Results: Results: CBC: 01/31/2023 05:36 \ Hgb / \ 8.7 L / WBC Plt 6.6 462 H / Hct \ / 26.9 L \ RBC: 2.79 L MCV: 96 RFP: 01/31/2023 05:36 NA+ Cl- BUN / 139 102 17 / -------- Glucose --- 93 K+ HCO3- Creat \ 3.8 31 1.40 H \ Calcium : 7.9 LAnion Gap : 10 Albumin : 2.2 L Phos : 3.1 Radiology Results: Results: Impression: 1. Interval improvement in the aeration of the lungs with mild residual atelectasis. 2. Medical appliances as described above Xray Chest 1 View [Jan 31 2023 9:35AM] Assessment and Plan: Code Status: Code StatusFull Code Assessment: 83 year old man with hx [...] clavicle and sternum 3. wound vac placement 01/30: s/p sternoclavicular wound debridement and closure PLAN: Neuro: incisional discomfort Good pain management on scheduled Tylenol and Oxy 2.5/5 mg as needed for pain Monitor effectiveness and adjust dose as needed Bowel regimen while on narcotics Encourage OOB ambulation Respiratory Large Left Extra Pleural Abscess in Communication with Sternoclavicular Joint 01/[address], purulent output, culture growing groups B strep 01/28 surgical Washout/Debridement of Left Sternoclavicular Joint, maintain wound connected to wound vac 125mmHg, plan OR tomorrow for wound vac exchange +/- closure over FARNAZ drain 01/29 wound debridement and primary closure with jersey placement IS Daily CXR or as clinical status dictates Oxygenating well on room air monitor jersey output CV hx of a- fib on Metoprolol and Eliquis at home Continue home metoprolol 25mg BID Hold Home Amlodipine, resume once BP allows Hold Home Eliquis, plan to resume post surgery Continuous telemetry and VS every 4hrs while hospitalized Replace electrolytes as needed GI hx of GERD on Omeprazole at home Tolerating regular diet, Bowel Regimen Home PPI Equivalent for GERD Renal hx of prostate ca. on Al (more content not included)... Normal [facility] MAGNESIUMon 01-31-2023 Magnesium [Mass/Vol] 2.20 mg/dL Normal 1.60 - 2.40 [facility] Comment on above: Performed By: #### C OVSC #### [facility] [address] [address] PT Evaluation v2-individual therapyon 01-31-2023 PT Evaluation v2-individual therapy Rehab: Info: Mode of Treatmentphysical therapy; individual therapy Time IN09:02 Time OUT09:22 Total Treatment [id number] Patient in ... at end of sessionsitting at EOB Communicated with ... at end of sessionbedside nurse Patient Effortexcellent Symptoms Noted During/After Treatmentnone Patient Profile Reviewedyes Onset of Illness/Injury or Date of [id number] Reason for Referraladm with L sided chest, neck and arm pain, found to have Large Extrapleural Apical abscess in communication with Left Sternoclavicular joint. 3/2 s/p I&D L sternoclavicular abscess, debridement L clavicle and sternum, wound vac placement. 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 Occasional assist for meals Living Arrangementshouse Lives Withalone; has support from friend Home Accessibilityno concerns Type of Equipment Currently In the Homestraight cane; grab bar; shower chair; rolling walker Line and Tubestelemetry; FARNAZ x2 Vision/Cognition: Affect/Mental Status (Cognitive)WNL Orientation Status (Cognition)oriented x 4 Able to Follow Commands (Receptive)WNL ROM: Lower Extremity: Range of Motionleft lower extremity ROM WNL; right lower extremity ROM WNL MMT: Lower Extremity: Manual Muscle Testing (MMT)left lower extremity strength WNL; right lower extremity strength WNL Mobility/Tone: Bed Mobility Assessment/Interventions supine to sit [id number]-[id number] [place] (Bed Mobility)modified independence Comment, Bed MobilityHOB elevated ~30 degrees Transfer Assessment/Interventions sit to stand transfer; stand to sit transfer Comment, Transferscompleted x2 Sit-Stand [place] (Transfers)independent Stand-Sit [place] (Transfers)independent Gait/Stairs Locomotiongait/ambulatio n independence; distance ambulated; gait/ambulation assistive device; gait deviations Gait Locomotion (Gait)modified independence Assistive Device (Gait Training)with and without RW Distance in Feet (Gait Training)175ft x1 with RW, 15ft x1 without device Gait Deviations Identified (Gait)steady pace, equal step length bilaterally, no acute LOB or instability Motor: Sitting, Static (Balance)normal balance Sitting, Dynamic (Balance)normal balance [id number] (Balance)normal balance Standing, Static (Balance)normal balance Initially pt quickly went from supine to standing with reports of mild dizziness, improved with inc time sitting at EOB and then resolved with second standing trial Standing, Dynamic (Balance)normal balance Sensory: Pre-Treatment Pain Rating1/10 Post-Treatment Pain Rating1/10 Comment, Pre/Post Treatment Painincision Impression: Criteria for Skilled Therapeutic Interventions Met (PT Eval)no; no problems identified which require skilled intervention Patient/Family Goals Statement (PT Eval)Return home Assessment (PT Eval)Pt tolerated PT eval well. At baseline he is indep with all mobility without AD. Has support as needed upon d/c despite living alone. Pt demo'd good control with all functional mobility with and without RW. Initially pt went from supine to standing quickly and reports some mild dizziness, improved with return to sitting and then resolved with second trial of standing. As a result pt wanting to attempt initial ambulation using RW but then later demo'd amb without device indep. Pt with no additional acute PT needs, will d/c orders Therapy Frequency (PT Eval)evaluation only Outcomes Tools: Turning from your back to your side while in a flat bed without using bedrails none Moving from lying on your back to sitting on the side of a flat bed without using bedrailsnone Moving to and from bed to chair (including a wheelchair)none Standing up from a chair using your arms (e.g. wheelchair or bedside chair) none To walk in hospital roomnone Climbing 3-5 steps with railingnone AM-PAC (PT) Total Score24 Education: Learnerpatient Barriers to Learningno barrier Methodverbal Outcome Evaluation2=meets goals/outcomes Topicrehab plan of care DC Recommendations: Discharge RecommendationPt with no additional PT needs upon d/c, assist from family/friends as needed Electronic Signatures: Chasity Jose (PT) (Signed 31-Jan-2023 09:31) Authored: Info, Vision/Cognition, ROM, MMT, Mobility/Tone, Motor, Sensory, Impression, Outcomes Tools, Educat (more content not included)... Normal [facility] RENAL FUNCTION PANELon 01-31 Albumin [Mass/Vol] 2.2 g/dL Low 3.4 - 5.0 [facility] Comment on above: Performed By: #### R ENAL #### [facility] [address] [place] [address] Anion gap [Moles/Vol] 10 mmol/L Normal 10 - 20 [facility] Comment on above: Performed By: #### R ENAL #### [facility] [address] [place] [address] Calcium [Mass/Vol] 7.9 mg/dL Low 8.6 - 10.6 [facility] Comment on above: Performed By: #### R ENAL #### [facility] [address] [place] [address] Chloride [Moles/Vol] 102 mmol/L Normal 98 - 107 [facility] Comment on above: Performed By: #### R ENAL #### [facility] [address] [place] [address] Creatinine [Mass/Vol] 1.40 mg/dL High 0.50 - 1.30 [facility] Comment on above: Performed By: #### R ENAL #### [facility] [address] [place] [address] GFR/1.73 sq M.predicted among non-blacks MDRD (S/P/Bld) [Vol rate/Area] 50 mL/min/{1.73_m2} Abnormal >90 [facility] Comment on above: Result Comment: CALC ULATIONS OF ESTIMATED GFR ARE PERFORMED USING THE 2020 CKD-EPI STUDY REFIT EQUATION WITHOUT THE RACE VARIABLE FOR THE IDMS-TRACEABLE CREATININE METHODS. https://jasn.asnjournals.org/content/early/ASN.872 1467511 Performed By: #### R ENAL #### [facility] [address] [place] [address] Glucose [Mass/Vol] 93 mg/dL Normal 74 - 99 [facility] Comment on above: Performed By: #### R ENAL #### [place] [address] [place] [address] HCO3 (Bld) [Moles/Vol] 31 mmol/L Normal 21 - 32 [facility] Comment on above: Performed By: #### R ENAL #### [facility] [address] [place] [address] Phosphate [Mass/Vol] 3.1 mg/dL Normal 2.5 - 4.9 [facility] Comment on above: Result Comment: The performance characteristics of phosphorus testing in heparinized plasma have been validated by the individual laboratory site where testing is performed. Testing on heparinized plasma is not approved by the FDA; however, such approval is not necessary. Performed By: #### R ENAL #### [facility] [address] [place] [address] Potassium [Moles/Vol] 3.8 mmol/L Normal 3.5 - 5.3 [facility] Comment on above: Performed By: #### R ENAL #### [facility] [address] [place] [address] Sodium [Moles/Vol] 139 mmol/L Normal 136 - 145 [facility] Comment on above: Performed By: #### R ENAL #### [facility] [address] [place] [address] Urea nitrogen [Mass/Vol] 17 mg/dL Normal 6 - 23 [facility] Comment on above: Performed By: #### R ENAL #### [facility] [address] [place] [address] TH CHEST 1 VIEWon 01-31-2023 TH CHEST 1 VIEW Patient Name: EMPERATRIZ EPPS STUDY: CHEST 1 VIEW; 01/31/2023 4:56 am INDICATION: s/p debridement of sternoclavicular abscess . COMPARISON: Radiograph dated 01/30/2023 ACCESSION NUMBER(S): [id number] ORDERING CLINICIAN: BELTRAN LOYA FINDINGS: A presumed surgical drain is projecting over the left upper chest. Right IJ approach access MediPort is in place with the tip projecting over upper right atrium/cavoatrial junction. The cardiac silhouette size is within normal limits. Interval improvement in the aeration of the lungs with mild residual atelectasis. No sizable pleural effusion, celso edema or sizable pneumothorax. No acute osseous abnormality. IMPRESSION: 1. Interval improvement in the aeration of the lungs with mild residual atelectasis. 2. Medical appliances as described above Electronically signed by: DWAIN HAIRSTON MD Normal [facility] VANCOMYCIN,TROUGHon 02-01-20 VANCOMYCIN,TROUGH 12.5 ug/mL Normal 5.0 - 20.0 [facility] Comment on above: Order Comment: TEST BASIC METABOLIC PANEL WAS CANCELLED, 02/04/2023 07:10 Result Comment: Vanc omycin levels should be interpreted in conjunction with the dose, disease being treated, vancomycin SIDDHARTH, time of draw (trough concentrations should be obtained just before the next dose at steady-state), and other clinical information. Trough concentrations of 15-20 ug/mL are desired for severe infections. Ref.: Am J Health-Syst Pharm 66: 83-98, 2009. Performed By: #### B MP #### [facility] [address] [place] [address] BASIC METABOLIC PANELon Anion gap [Moles/Vol] 11 mmol/L Normal 10 - 20 [facility] Comment on above: Performed By: #### B MP #### [facility] [address] [place] [address] Calcium [Mass/Vol] 8.0 mg/dL Low 8.6 - 10.6 [facility] Comment on above: Performed By: #### B MP #### [facility] [address] [place] [address] Chloride [Moles/Vol] 104 mmol/L Normal 98 - 107 [facility] Comment on above: Performed By: #### B MP #### [facility] [address] [place] [address] Creatinine [Mass/Vol] 1.06 mg/dL Normal 0.50 - 1.30 [facility] Comment on above: Performed By: #### B MP #### [facility] [address] [place] [address] GFR/1.73 sq M.predicted among non-blacks MDRD (S/P/Bld) [Vol rate/Area] 70 mL/min/{1.73_m2} Normal >90 [facility] Comment on above: Result Comment: CALC ULATIONS OF ESTIMATED GFR ARE PERFORMED USING THE 2020 CKD-EPI STUDY REFIT EQUATION WITHOUT THE RACE VARIABLE FOR THE IDMS-TRACEABLE CREATININE METHODS. https://jasn.asnjournals.org/content/early//ASN.116 2205882 Performed By: #### B MP #### [facility] [address] [place] [address] Glucose [Mass/Vol] 81 mg/dL Normal 74 - 99 [facility] Comment on above: Performed By: #### B MP #### [facility] [address] [place] [address] HCO3 (Bld) [Moles/Vol] 29 mmol/L Normal 21 - 32 [facility] Comment on above: Performed By: #### B MP #### [facility] [address] [place] [address] Potassium [Moles/Vol] 4.1 mmol/L Normal 3.5 - 5.3 [facility] Comment on above: Performed By: #### B MP #### [place] [address] [place] [address] Sodium [Moles/Vol] 140 mmol/L Normal 136 - 145 [facility] Comment on above: Performed By: #### B MP #### [facility] [address] [place] [address] Urea nitrogen [Mass/Vol] 17 mg/dL Normal 6 - 23 [facility] Comment on above: Performed By: #### B MP #### [facility] [address] [place] [address] CBCon 01-30-2023 Erythrocyte distribution width (RBC) [Ratio] 13.5 % Normal 11.5 - 14.5 [facility] Comment on above: Performed By: #### M G #### [facility] [address] [place] [address] Hematocrit (Bld) [Volume fraction] 32.4 % Low 41.0 - 52.0 [facility] Comment on above: Performed By: #### M G #### [facility] [address] [place] [address] Hemoglobin (Bld) [Mass/Vol] 10.4 g/dL Low 13.5 - 17.5 [facility] Comment on above: Performed By: #### M G #### [facility] [address] [place] [address] MCHC (RBC) [Mass/Vol] 32.1 g/dL Normal 32.0 - 36.0 [facility] Comment on above: Performed By: #### M G #### [facility] [address] [place] [address] MCV (RBC) [Entitic vol] 96 fL Normal 80 - 100 [facility] Comment on above: Performed By: #### M G #### [facility] [address] [place] [address] NUCLEATED RBC 0.0 /100 WBC Normal 0.0-0.0 [facility] Comment on above: Performed By: #### M G #### [facility] [address] [place] [address] Platelets (Bld) [#/Vol] 477 10*3/uL High 150 - 450 [facility] Comment on above: Performed By: #### M G #### [facility] [address] [place] [address] RBC 3.39 x10E12/L Low 4.50 - 5.90 [facility] Comment on above: Performed By: #### M G #### [facility] [address] [place] [address] WBC (Bld) [#/Vol] 6.9 10*3/uL Normal 4.4 - 11.3 [facility] Comment on above: Performed By: #### M G #### [facility] [address] [place] [address] Daily Progress Note-Thoracic and Esophageal Surgeryon 01-30-2023 Daily Progress Note-Thoracic and Esophageal Surgery Service: Thoracic & Esophageal Surgery Subjective Data: EMPERATRIZ EPPS is a 83 year old Male who is Hospital Day # 4 and POD #0 for 1. sternal wound debridement;2. sternal wound primary closure. OR today for debridement and closure. Objective Data: Objective Information: T PRBPMAPSpO2 [id number]/7395% Date/Time3/ 17:153/ 17:153/4 17:153/4 17:153/ 17:15 Range(36.2C - 37.4C ) (67 - 99 ) (17 - 18 ) (99 - 148 )/ (64 - 84 ) (93% - 96% ) As of 30-Jan-2023 10:51:00, patient is on 2 L/min of oxygen via nasal cannula. Highest temp of 37.4 C was recorded at 3/4 2:18 Pain reported at 3/4 10:25: 0 = None ---- Intake and Output ----- Mn/Dy/Year TimeIntakeOutputNet Jan 30, 2023 2:00 [id number] Jan 30, 2023 6:00 [id number] Jan 29, 2023 10:00 [id number] The Intake and Output Totals for the last 24 hours are: IntakeOutputNet [id number] Physical Exam by System: Constitutional: Well developed, awake/alert/oriented x3, no distress, alert and cooperative Respiratory/Thorax: clear bilaterally, oxygenating well on room air Cardiovascular: RRR Gastrointestinal: large, soft , not tender, tolerating diet well Extremities: no edema or calf tenderness. right inguinal drain in place with Psychological: Appropriate mood and behavior Skin: left chest wound covered island dressing. left jersey surgical drain with minimal output Recent Lab Results: Results: CBC: 01/30/2023 05:54 \ Hgb / \ 10.4 L / WBC Plt 6.9 477 H / Hct \ / 32.4 L \ RBC: 3.39 L MCV: 96 BMP: 01/30/2023 05:54 NA+ Cl- BUN / 140 104 17 / -------- Glucose --- 81 K+ HCO3- Creat \ 4.1 29 1.06 \ Calcium : 8.0 L Anion Gap : 11 Radiology Results: Results: Impression: 1. Interval increase in interstitial prominence of bilateral lungs, left more than right which may be due to edema. 2. Medical devices as above. 3. Low lung volumes and left greater than right mild bibasilar atelectasis. Small left pleural effusion. Xray Chest 1 View [Jan 30 2023 11:23AM] Impression: [Medical devices as above. ] [ Low lung volumesand left greater than right mild bibasilar atelectasis.] UNSIGNED REPOR Xray Chest 1 View [Jan 30 2023 10:10AM] Impression: 1. No focal infiltrate, pleural effusion, edema or sizable pneumothorax. 2. Medical appliances as described above. Xray Chest 1 View [Jan 30 2023 9:53AM] Assessment and Plan: Code Status: Code StatusFull Code Assessment: 83 year old man with hx [...] clavicle and sternum 3. wound vac placement 01/30: s/p sternoclavicular wound debridement and closure PLAN: Neuro: incisional discomfort Good pain management on scheduled Tylenol and Oxy 2.5/5 mg as needed for pain Monitor effectiveness and adjust dose as needed Bowel regimen while on narcotics Encourage OOB ambulation Respiratory Large Left Extra Pleural Abscess in Communication with Sternoclavicular Joint 01/[address], purulent output, culture growing groups B strep 01/28 surgical Washout/Debridement of Left Sternoclavicular Joint, maintain wound connected to wound vac 125mmHg, plan OR tomorrow for wound vac exchange +/- closure over FARNAZ drain 01/29 wound debridement and primary closure with jersey placement IS Daily CXR or as clinical status dictates Oxygenating well on room air monitor jersey output CV hx of a- fib on Metoprolol and Eliquis at home Continue home metoprolol 25mg BID Hold Home Amlodipine, resume once BP allows Hold Home Eliquis, plan to resume post surgery Continuous telemetry and VS every 4hrs while hospitalized Replace electrolytes as needed GI hx of GERD on Omeprazole at home Tolerating regular diet, Bowel Regimen Home PPI Equivalent for GERD Renal hx of prostate ca. on Alfuzosin at home Voiding spontaneously Monitor urine output and renal fce Continue home Alfuzosin ID Extra Pleural Abscess with Sternoclavicular Joint s/p drainage Resolved leukocytosis, afebrile Trend temps, daily CBC Continue Vancomycin/Zosyn for now, deescalate based on sensitivity (culture positive for group B strep, awaiting sensitivity) Heme Holding Eliquis, last dose 01/26/23 am, plan to resume post surgery Monitor H&H DVT prophylaxis with ambulation, SCD's and SQ Emmanuel (more content not included)... Normal [facility] MAGNESIUMon 01-30-2023 Magnesium [Mass/Vol] 2.06 mg/dL Normal 1.60 - 2.40 [facility] Comment on above: Performed By: #### B MP #### [facility] [address] [place] [address] TH CHEST 1 VIEWon 01-30-2023 TH CHEST 1 VIEW Patient Name: EMPERATRIZ EPPS STUDY: CHEST 1 VIEW; 01/30/2023 4:00 am INDICATION: infection . COMPARISON: Radiograph dated 01/29/2023 ACCESSION NUMBER(S): [id number] ORDERING CLINICIAN: JORGE LUIS LEBLANC FINDINGS: Right IJ central venous catheter is in place with the tip projecting over cavoatrial junction. Left apical pigtail chest tube is stable. The cardiac silhouette size is within normal limits. No focal infiltrate, pleural effusion, edema or sizable pneumothorax No acute osseous abnormality. IMPRESSION: 1. No focal infiltrate, pleural effusion, edema or sizable pneumothorax. 2. Medical appliances as described above. Electronically signed by: DWAIN HAIRSTON MD Normal [facility] TH CHEST; 1 VIEWon 3 TH CHEST; 1 VIEW Patient Name: EMPERATRIZ EPPS STUDY: CHEST; 1 VIEW; 01/30/2023 9:59 am INDICATION: s/p sternal wound debridment . COMPARISON: Multiple prior radiographs, most recently 01/30/2023 3:51 a.m. ACCESSION NUMBER(S): [id number] ORDERING CLINICIAN: BELTRAN LOYA FINDINGS: Frontal radiograph of the chest was provided Right IJ MediPort tip projects over the superior cavoatrial junction. Interval exchange of a left apical chest tube. CARDIOMEDIASTINAL SILHOUETTE: Cardiac silhouette is normal in size. LUNGS: Low lung volumes contributing to bronchovascular crowding. Mild bibasilar atelectasis, left greater than right. Increased interstitial markings of the lungs more on the left side. Small left pleural effusion. ABDOMEN: No remarkable upper abdominal findings. BONES: No acute osseous changes. IMPRESSION: 1. Interval increase in interstitial prominence of bilateral lungs, left more than right which may be due to edema. 2. Medical devices as above. 3. Low lung volumes and left greater than right mild bibasilar atelectasis. Small left pleural effusion. I personally reviewed the images/study and I agree with the findings as stated. Electronically signed by: DWAIN HAIRSTON MD Normal [facility] CBCon 01-29-2023 Erythrocyte distribution width (RBC) [Ratio] 13.5 % Normal 11.5 - 14.5 [facility] Comment on above: Performed By: #### B MP #### [facility] [address] [place] [address] Hematocrit (Bld) [Volume fraction] 29.4 % Low 41.0 - 52.0 [facility] Comment on above: Performed By: #### B MP #### [facility] [address] [place] [address] Hemoglobin (Bld) [Mass/Vol] 9.4 g/dL Low 13.5 - 17.5 [facility] Comment on above: Performed By: #### B MP #### [facility] [address] [place] [address] MCHC (RBC) [Mass/Vol] 32.0 g/dL Normal 32.0 - 36.0 [facility] Comment on above: Performed By: #### B MP #### [facility] [address] [place] [address] MCV (RBC) [Entitic vol] 96 fL Normal 80 - 100 [facility] Comment on above: Performed By: #### B MP #### [facility] [address] [place] [address] NUCLEATED RBC 0.0 /100 WBC Normal 0.0-0.0 [facility] Comment on above: Performed By: #### B MP #### [facility] [address] [place] [address] Platelets (Bld) [#/Vol] 474 10*3/uL High 150 - 450 [facility] Comment on above: Performed By: #### B MP #### [facility] [address] [place] [address] RBC 3.05 x10E12/L Low 4.50 - 5.90 [facility] Comment on above: Performed By: #### B MP #### [facility] [address] [place] [address] WBC (Bld) [#/Vol] 8.8 10*3/uL Normal 4.4 - 11.3 [facility] Comment on above: Performed By: #### B MP #### [facility] [address] [place] [address] Daily Progress Note-Surgical Oncologyon 01-29-2023 Daily Progress Note-Surgical Oncology Service: Surgical Oncology Subjective Data: EMPERATRIZ EPPS is a 83 year old Male who is Hospital Day # 3 and POD #1 for 1. incision and drainage of left sternoclavicular abscess;2. debridement of left clavicle and sternum;3. wound vac placement. UNderwentr abscess I&D yesterday. Groin Drain output serous. Objective Data: Objective Information: T PRBPMAPSpO2 [id number] % Date/Time3 5:403/3 5:4033 5:4033 5:403/2 18:123/3 5:40 Range(36.2C - 37.2C ) (74 - 102 ) (16 - 20 ) (119 - 154 )/ (71 - 88 ) (87 - 110 ) (92% - 96% ) As of 28-Jan-2023 20:53:00, patient is on 1 L/min of oxygen via nasal cannula. Highest temp of 37.2 C was recorded at 01/28 1:52 Weights 01/29 5:58: Weight in kg (Weight (kg)) 87.9 01/29 5:58: Weight in lbs ((lbs)) 193.7 Pain reported at 01/29 5:58: 3 = Mild Physical Exam Narrative: Physical Exam: Constitutional: Awake, Alert, Mild Distress with occasional painful coughing fits, patient with self applied cervical collar Eyes: EOMI, No jaundice ENMT: MMM Head/Neck: NCAT, Neck with some tenderness at Left Base, IR drain with purulent output Respiratory/Thorax: No dyspnea, Bilateral Breath Sound Present Cardiovascular: Regular rate and rhythm, Good distal Pulses Gastrointestinal: Soft, NT, ND Genitourinary: Right Groin Incision with some breakdown and fibrinous exudate in medial area, no erythema, drainage or tenderness. two drains with serous output Neurological: No deficits, AAOX3 Medication: Medications: Continuous Medications -------- No continuous medications are active Scheduled Medications -------- 1. Acetaminophen: 650 mg Oral Every 6 Hours 2. Alfuzosin Extended Release: 10 mg Oral Every 24 Hours 3. Docusate 50 mg - Senna 8.6 m tablet(s) Oral At Bedtime 4. Levothyroxine: 112 microgram(s) Oral Daily 5. Metoprolol Tartrate: 12.5 mg Oral 2 Times a Day 6. Pantoprazole: 40 mg Oral Daily 7. Piperacillin - Tazobactam 3.375 gram/Iso-osmotic 50 mL Premix IVPB: 50 mL IntraVenous Piggyback Every 6 Hours 8. Polyethylene Glycol: 17 gram(s) Oral Daily 9. Vancomycin - RPh to Dose - IV Piggy Back: 1 each As Specified Variable 10. Vancomycin IV Piggy Back: 1500 mg IntraVenous Piggyback Every 24 Hours PRN Medications -------- 1. oxyCODONE Immediate Release: 2.5 mg Oral Every 4 Hours 2. oxyCODONE Immediate Release: 5 mg Oral Every 4 Hours Recent Lab Results: Results: I have reviewed these laboratory results: Complete Blood Count 29-Jan-2023 06:19:00 ResultValue White Blood Cell Count 8.8 Nucleated Erythrocyte Count 0.0 Red Blood Cell Count 3.05 L HGB 9.4 L HCT 29.4 L MCV 96 MCHC 32.0 PLT 474 H RDW-CV 13.5 Vancomycin Level, Trough 29-Jan-2023 06:19:00 ResultValue Vancomycin Level, Trough 7.0 Radiology Results: Results: Impression: Xray Chest 1 View [Jan 29 2023 6:33AM] Assessment and Plan: Code Status: Code StatusFull Code Advance Care Planning: Advance Care Planning: I evaluated the patient and determined the patient's capacity to understand the risks, benefits and alternatives to treatment. I elicited the patient's goals for treatment and reviewed advance directives and medical orders for life sustaining treatment. The patient was given an opportunity to review a blank advance directive as appropriate. 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 Patient now presented with left lung abscess. Groin wound has no evidence of infection, though some breakdown. Drain output has been ranging from 10ml to 90ml per day. We will continue to monitor and management groin wound and drain whole patient in house. Plan: - likely remove drain 1 today. Plan has been discussed with Dr. Bennett Attestation: Note Completion: I am a: Resident/Fellow [...] the note. I personally evaluated the patient [id number] Comments/ Additional Findings I was able to see the patient this morning. He is doing well after his debridement and abscess washout of his left sternoclavicular abscess. His right groin is healing well and wound drain #1 was removed at bedside. Drain #2 will be removed when output is <50ml/day for at least two days Electronic Signatures: Sedrick Pavon (Resident)) (Signed 29-Jan-2023 07:38) Authored: Se (more content not included)... Normal [facility] Daily Progress Note-Thoracic and Esophageal Surgeryon 01-29-2023 Daily Progress Note-Thoracic and Esophageal Surgery Service: Thoracic & Esophageal Surgery Subjective Data: EMPERATRIZ EPPS is a 83 year old Male who is Hospital Day # 3 and POD #1 for 1. incision and drainage of left sternoclavicular abscess;2. debridement of left clavicle and sternum;3. wound vac placement. Additional Information: feels better, able to move his arm , minimal surgical pain wound vac in place to 125mmHg Objective Data: Objective Information: T PRBPMAPSpO2 [id number] % Date/Time01/29 10: 10: 10: 10: 18:123/3 10:46 Range(36.2C - 37.2C ) (74 - 102 ) (16 - 20 ) (119 - 154 )/ (71 - 88 ) (87 - 110 ) (92% - 96% ) As of 28-Jan-2023 20:53:00, patient is on 1 L/min of oxygen via room air. Highest temp of 37.2 C was recorded at 01/28 1:52 Pain reported at 01/29 8:42: 2 = Mild T PRBPMAPSpO2 Value36.47769986/[id number] % Date/Time01/29 10: 10:4601/29 10:4601/29 10:4601/28 18:123/3 10:46 Range(36.2C - 37.2C ) (74 - 102 ) (16 - 20 ) (119 - 154 )/ (71 - 88 ) (87 - 110 ) (92% - 96% ) As of 28-Jan-2023 20:53:00, patient is on 1 L/min of oxygen via room air. Highest temp of 37.2 C was recorded at 01/28 1:52 Pain reported at 01/29 8:42: 2 = Mild Weights 01/29 5:58: Weight in kg (Weight (kg)) 87.9 01/29 5:58: Weight in lbs ((lbs)) 193.7 Physical Exam by System: Constitutional: Well developed, awake/alert/oriented x3, no distress, alert and cooperative Respiratory/Thorax: clear bilaterally, oxygenating well on room air Cardiovascular: RRR Gastrointestinal: large, soft , not tender, tolerating diet well Extremities: no edema or calf tenderness Psychological: Appropriate mood and behavior Skin: left chest wound covered with wound vac - serosanguinous fluid right groin FARNAZ drains x2 with serosanguinous fluid 150/2cc in 24hrs left anterior chest FARNAZ 55cc of purulent output Medication: Medications: Continuous Medications -------- No continuous medications are active Scheduled Medications -------- 1. Acetaminophen: 650 mg Oral Every 6 Hours 2. Alfuzosin Extended Release: 10 mg Oral Every 24 Hours 3. Docusate 50 mg - Senna 8.6 m tablet(s) Oral At Bedtime 4. Levothyroxine: 112 microgram(s) Oral Daily 5. Metoprolol Tartrate: 12.5 mg Oral 2 Times a Day 6. Pantoprazole: 40 mg Oral Daily 7. Piperacillin - Tazobactam 3.375 gram/Iso-osmotic 50 mL Premix IVPB: 50 mL IntraVenous Piggyback Every 6 Hours 8. Polyethylene Glycol: 17 gram(s) Oral Daily 9. Vancomycin - RPh to Dose - IV Piggy Back: 1 each As Specified Variable 10. Vancomycin IV Piggy Back: 1500 mg IntraVenous Piggyback Every 24 Hours PRN Medications -------- 1. oxyCODONE Immediate Release: 2.5 mg Oral Every 4 Hours 2. oxyCODONE Immediate Release: 5 mg Oral Every 4 Hours Recent Lab Results: Results: CBC: 01/29/2023 06:19 \ Hgb / \ 9.4 L / WBC Plt 8.8 474 H / Hct \ / 29.4 L \ RBC: 3.05 L MCV: 96 RFP: 01/29/2023 06:19 NA+ Cl- BUN / 139 103 20 / -------- Glucose --- 110 H K+ HCO3- Creat \ 4.4 29 1.04 \ Calcium : 8.0 LAnion Gap : 11 Albumin : 2.2 L Phos : 3.2 I have reviewed these laboratory results: Complete Blood Count 29-Jan-2023 06:19:00 ResultValue White Blood Cell Count 8.8 Nucleated Erythrocyte Count 0.0 Red Blood Cell Count 3.05 L HGB 9.4 L HCT 29.4 L MCV 96 MCHC 32.0 PLT 474 H RDW-CV 13.5 Renal Function Panel 29-Jan-2023 06:19:00 ResultValue Glucose, Serum 110 H NA 139 K 4.4 CL 103 Bicarbonate, Serum 29 Anion Gap, Serum 11 BUN 20 CREAT 1.04 GFR Male 72 Calcium, Serum 8.0 L Phosphorus, Serum 3.2 ALB 2.2 L Vancomycin Level, Trough 29-Jan-2023 06:19:00 ResultValue Vancomycin Level, Trough 7.0 Culture, Miscellaneous, includes Gram Stain Trending View [id number] 15:26:00 28-Jan-2023 15:25:00 Gram Stain2+ GRANULOCYTES. 3+ GRAM (+) COCCI 3+ GRANULOCYTES. 3+ GRAM (+) COCCI Culture, Fungus + Fungus Stain Trending View [id number] 15:26:00 28-Jan-2023 15:25:00 Culture, Fungus + Fungus StainCULTURE IS IN PROGRESS A REPORT WILL BE ISSUED EITHER WHEN POSITIVE OR AFTER TWO WEEKS INCUBATION. CULTURE IS IN PROGRESS A REPORT WILL BE ISSUED EITHER WHEN POSITIVE OR AFTER TWO WEEKS INCUBATION. Radiology Results: Results: Impression: 1. Interval increase of the left apical residual fluid or abscess.. 2. Otherwise, clear both lungs. Xray Chest 1 View [Jan 29 2023 9:30AM] Impression: Xray Chest 1 View [Jan 29 2023 6:33AM] Assessment and Plan: Code Status: Code StatusFull Code Assessment: 83 year old man with hx of recent melanoma surgery, RA, Recent COVID Infection, who presents with 1 week of pleuritic chest pain and fevers. CTA chest done at OSH reveals Large Extrapleural Apical abs (more content not included)... Normal [facility] Discharge [id number] Discharge Profile2 Discharge Orders: Anticipated Discharge Date: Anticipated Discharge [id number] Problem List: Admitting Dx: Lung abscess: Catalog Name: Abscess of lung without pneumonia Significant Events: Surgical Procedure: Clinical Events This Visit, 30-Jan-2023, 1. sternal wound debridement;2. sternal wound primary closure Surgical Procedure: Clinical Events This Visit, 28-Jan-2023, 1. incision and drainage of left sternoclavicular abscess;2. debridement of left clavicle and sternum;3. wound vac placement Hospital Providers: Provider RoleProvider Name María [facility] - Surg Onc Anurag Tony DNAR: Code Status at Discharge: Full Code Labs 1: Lab Test(s)CBC with dif, Comprehensive Metabolic Panel, CRP, ESR Date To Be Drawnweekly Fax Results [phone], Attn Dr Nguyen Line Care (Gold Form or Patient Managed): Line Care for Adults. Access Type: PICC. Site: [...] to chloraprep. Change 24 hours after initial insertion.. Change transparent dressing and stat lock every 7 days and as needed.. Gauze and tape dressing every 48 hours [...] blood products change within 24 hours of infusion.. Cap change: every 7 days and as needed. Change within 24 hours of blood or lipid infusion.. Gloves should be worn with handling of central venous catheter. Call Physician if presence of redness, swelling, drainage or purulence at insertion site. May draw labs from line. Drain/Tube Care 1: TypeJP (oDnavan Dawkins) Sitegroin Suctioncontinuous self Cleanse Withsoap and water Dress [id number] gauze dressing Other InstructionsTo empty the drain, open the cap, tip into cup and squeeze to empty. Squeeze drain flat then replace the cap. Please empty the drain and record its output _3_ times a day and bring these numbers to your follow up appointment. The drain output should decrease and the color of the drainage should become lead generator (red to pink to yellow). This drain [...] drain output, or redness/drainage around insertion site. Drain/Tube Care 2: TypeJP (Donavan Dawkins) Siteleft anterior chest Suctioncontinuous Cleanse Withsoap and water Dress [id number] gauze dressing Other InstructionsTo empty the drain, open the cap, tip into cup and squeeze to empty. Squeeze drain flat then replace the cap. Please empty the drain and record its output _3_ times a day and bring these numbers to your follow up appointment. The drain output should decrease and the color of the drainage should become lead generator (red to pink to yellow). This drain [...] drain output, or redness/drainage around insertion site. Esophagectomy: Activity: - Continue increasing activity and using incentive spirometer, cough and deep breathe. - No pushing, pulling or lifting objects over 15 lbs for 3 weeks. - No flying for 3 weeks. - No jogging or heav (more content not included)... Normal [facility] RENAL FUNCTION PANELon 01-29 Albumin [Mass/Vol] 2.2 g/dL Low 3.4 - 5.0 [facility] Comment on above: Performed By: #### C OVSC #### [facility] [address] [place] [address] Anion gap [Moles/Vol] 11 mmol/L Normal 10 - 20 [facility] Comment on above: Performed By: #### C OVSC #### [facility] [address] [place] [address] Calcium [Mass/Vol] 8.0 mg/dL Low 8.6 - 10.6 [facility] Comment on above: Performed By: #### C OVSC #### [facility] [address] [place] [address] Chloride [Moles/Vol] 103 mmol/L Normal 98 - 107 [facility] Comment on above: Performed By: #### C OVSC #### [facility] [address] [place] [address] Creatinine [Mass/Vol] 1.04 mg/dL Normal 0.50 - 1.30 [facility] Comment on above: Performed By: #### C OVSC #### [place] [address] [place] [address] GFR/1.73 sq M.predicted among non-blacks MDRD (S/P/Bld) [Vol rate/Area] 72 mL/min/{1.73_m2} Normal >90 [facility] Comment on above: Result Comment: CALC ULATIONS OF ESTIMATED GFR ARE PERFORMED USING THE 2020 CKD-EPI STUDY REFIT EQUATION WITHOUT THE RACE VARIABLE FOR THE IDMS-TRACEABLE CREATININE METHODS. https://jasn.asnjournals.org/content/early/ASN.519 8221624 Performed By: #### C OVSC #### [facility] [address] [place] [address] Glucose [Mass/Vol] 110 mg/dL High 74 - 99 [facility] Comment on above: Performed By: #### C OVSC #### [facility] [address] [place] [address] HCO3 (Bld) [Moles/Vol] 29 mmol/L Normal 21 - 32 [facility] Comment on above: Performed By: #### C OVSC #### [facility] [address] [place] [address] Phosphate [Mass/Vol] 3.2 mg/dL Normal 2.5 - 4.9 [facility] Comment on above: Result Comment: The performance characteristics of phosphorus testing in heparinized plasma have been validated by the individual laboratory site where testing is performed. Testing on heparinized plasma is not approved by the FDA; however, such approval is not necessary. Performed By: #### C OVSC #### [facility] [address] [place] [address] Potassium [Moles/Vol] 4.4 mmol/L Normal 3.5 - 5.3 [facility] Comment on above: Performed By: #### C OVSC #### [facility] [address] [place] [address] Sodium [Moles/Vol] 139 mmol/L Normal 136 - 145 [facility] Comment on above: Performed By: #### C OVSC #### [facility] [address] [place] [address] Urea nitrogen [Mass/Vol] 20 mg/dL Normal 6 - 23 [facility] Comment on above: Performed By: #### C OVSC #### [facility] [address] [place] [address] CHEST 1 VIEWon 01-29-2023 CHEST 1 VIEW Patient Name: EMPERATRIZ EPPS STUDY: CHEST 1 VIEW; 01/29/2023 7:21 am INDICATION: chest wall abscess . COMPARISON: 01/28/2023 ACCESSION NUMBER(S): [id number] ORDERING CLINICIAN: STANISLAW CARO FINDINGS: AP upright chest. Left apical pigtail catheter in same position. Right chest wall MediPort with its right IJ catheter tip in the superior cavoatrial junction. CARDIOMEDIASTINAL SILHOUETTE: Cardiomediastinal silhouette is normal in size and configuration. LUNGS: Interval increase left apical opacity in size, suggesting residual fluid or abscess. No pneumothorax. ABDOMEN: No remarkable upper abdominal findings. BONES: No acute osseous changes. IMPRESSION: 1. Interval increase of the left apical residual fluid or abscess.. 2. Otherwise, clear both lungs. Electronically signed by: MORENO RAMSAY MD Normal [facility] VANCOMYCIN,TROUGHon 01-30-20 23 VANCOMYCIN,TROUGH 7.0 ug/mL Normal 5.0 - 20.0 [facility] Comment on above: Result Comment: Vanc omycin levels should be interpreted in conjunction with the dose, disease being treated, vancomycin SIDDHARTH, time of draw (trough concentrations should be obtained just before the next dose at steady-state), and other clinical information. Trough concentrations of 15-20 ug/mL are desired for severe infections. Ref.: Am J Health-Syst Pharm 66: 83-98, 2008. Performed By: #### C OVSC #### [place] [address] [place] [address] ABO/RH GROUP TESTon 01-29-20 23 ABO TYPE A Normal [facility] Comment on above: Performed By: #### C OVSC #### [facility] [address] [place] [address] RH TYPE Positive Normal [facility] Comment on above: Performed By: #### C OVSC #### [facility] [address] [place] [address] BASIC METABOLIC PANELon Anion gap [Moles/Vol] 13 mmol/L Normal 10 - 20 [facility] Comment on above: Performed By: #### C OVSC #### [facility] [address] [place] [address] Calcium [Mass/Vol] 8.4 mg/dL Low 8.6 - 10.6 [facility] Comment on above: Performed By: #### C OVSC #### [facility] [address] [place] [address] Chloride [Moles/Vol] 104 mmol/L Normal 98 - 107 [facility] Comment on above: Performed By: #### C OVSC #### [facility] [address] [place] [address] Creatinine [Mass/Vol] 0.97 mg/dL Normal 0.50 - 1.30 [facility] Comment on above: Performed By: #### C OVSC #### [facility] [address] [place] [address] GFR/1.73 sq M.predicted among non-blacks MDRD (S/P/Bld) [Vol rate/Area] 78 mL/min/{1.73_m2} Normal >90 [facility] Comment on above: Result Comment: CALC ULATIONS OF ESTIMATED GFR ARE PERFORMED USING THE 2020 CKD-EPI STUDY REFIT EQUATION WITHOUT THE RACE VARIABLE FOR THE IDMS-TRACEABLE CREATININE METHODS. https://jasn.asnjournals.org/content/early/ASN.094 8045938 Performed By: #### C OVSC #### [facility] [address] [place] [address] Glucose [Mass/Vol] 87 mg/dL Normal 74 - 99 [facility] Comment on above: Performed By: #### C OVSC #### [facility] [address] [place] [address] HCO3 (Bld) [Moles/Vol] 26 mmol/L Normal 21 - 32 [facility] Comment on above: Performed By: #### C OVSC #### [facility] [address] [place] [address] Potassium [Moles/Vol] 4.0 mmol/L Normal 3.5 - 5.3 [facility] Comment on above: Performed By: #### C OVSC #### [facility] [address] [place] [address] Sodium [Moles/Vol] 139 mmol/L Normal 136 - 145 [facility] Comment on above: Performed By: #### C OVSC #### [facility] [address] [place] [address] Urea nitrogen [Mass/Vol] 20 mg/dL Normal 6 - 23 [facility] Comment on above: Performed By: #### C OVSC #### [facility] [address] [place] [address] CBCon 01-28-2023 Erythrocyte distribution width (RBC) [Ratio] 13.8 % Normal 11.5 - 14.5 [facility] Comment on above: Performed By: #### C OVSC #### [facility] [address] [place] [address] Hematocrit (Bld) [Volume fraction] 30.6 % Low 41.0 - 52.0 [facility] Comment on above: Performed By: #### C OVSC #### [facility] [address] [place] [address] Hemoglobin (Bld) [Mass/Vol] 9.9 g/dL Low 13.5 - 17.5 [facility] Comment on above: Performed By: #### C OVSC #### [facility] [address] [place] [address] MCHC (RBC) [Mass/Vol] 32.4 g/dL Normal 32.0 - 36.0 [facility] Comment on above: Performed By: #### C OVSC #### [facility] [address] [place] [address] MCV (RBC) [Entitic vol] 96 fL Normal 80 - 100 [facility] Comment on above: Performed By: #### C OVSC #### [facility] [address] [place] [address] NUCLEATED RBC 0.0 /100 WBC Normal 0.0-0.0 [facility] Comment on above: Performed By: #### C OVSC #### [facility] [address] [place] [address] Platelets (Bld) [#/Vol] 427 10*3/uL Normal 150 - 450 [facility] Comment on above: Performed By: #### C OVSC #### [facility] [address] [place] [address] RBC 3.20 x10E12/L Low 4.50 - 5.90 [facility] Comment on above: Performed By: #### C OVSC #### [facility] [address] [place] [address] WBC (Bld) [#/Vol] 8.1 10*3/uL Normal 4.4 - 11.3 [facility] Comment on above: Performed By: #### C OVSC #### [facility] [address] [place] [address] Cult, Fungus +smearon 2022 Fungus identified Cx Nom (Unsp spec) [facility] Work Phone: Fungus identified Cx Nom (Unsp spec) [facility] Work Phone: Daily Progress Note-Surgical Oncologyon 01-28-2023 Daily Progress Note-Surgical Oncology Service: Surgical Oncology Subjective Data: EMPERATRIZ EPPS is a 83 year old Male who is Hospital Day # 2. No acute overnight events. Patient states he feels drain output for inguinal drains has decreased. Otherwise doing well. Objective Data: Objective Information: T PRBPMAPSpO2 Value36.57639148/[id number]% Date/Time01/28 8: 8: 8: 8: 8: 8:00 Range(36.2C - 37.9C ) (81 - 99 ) (18 - 20 ) (103 - 128 )/ (67 - 89 ) (90 - 90 ) (92% - 95% ) As of 27-Jan-2023 14:44:00, patient is on 2 L/min of oxygen via nasal cannula. Highest temp of 37.9 C was recorded at 01/27 21:20 Pain reported at 01/28 8:00: 2 = Mild ---- Intake and Output ----- Mn/Dy/Year TimeInt[facility]OutputAt[facility] Jan 28, 2023 6:00 [id number] Jan 27, 2023 10:00 [id number] Jan 27, 2023 2:00 [id number] The Intake and Output Totals for the last 24 hours are: IntakeOutputNet [id number] Physical Exam Narrative: Physical Exam: Constitutional: Awake, Alert, Mild Distress with occasional painful coughing fits, patient with self applied cervical collar Eyes: EOMI, No jaundice ENMT: MMM Head/Neck: NCAT, Neck with some tenderness at Left Base, IR drain with purulent output Respiratory/Thorax: No dyspnea, Bilateral Breath Sound Present Cardiovascular: Regular rate and rhythm, Good distal Pulses Gastrointestinal: Soft, NT, ND Genitourinary: Right Groin Incision with some breakdown and fibrinous exudate in medial area, no erythema, drainage or tenderness. two drains with serous output Neurological: No deficits, AAOX3 Recent Lab Results: Results: CBC: 01/28/2023 06:24 \ Hgb / \ 9.9 L / WBC Plt 8.1 427 / Hct \ / 30.6 L \ RBC: 3.20 L MCV: 96 BMP: 01/28/2023 06:24 NA+ Cl- BUN / 139 104 20 / -------- Glucose --- 87 K+ HCO3- Creat \ 4.0 26 0.97 \ Calcium : 8.4 L Anion Gap : 13 Radiology Results: Results: Impression: 1. There is left apical parenchymal soft tissue. Correlate with a component of upper lobe volume loss loculated fluid. Correlate with any concern for left upper lobe lung mass. Follow-up with PA and lateral x-ray as clinically indicated Xray Chest 1 View [Jan 27 2023 4:29PM] Impression: Successful successful ultrasound guided placement of a 10 [place] pigtail drainage catheterinto the left apical lung abscess with removal of approximally 150 cc of purulent material. Specimen(s) Sent to laboratory/pathology. I was present for and/or performed the critical portions of the procedure and immediately available throughout the entire procedure. 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 Patient now presented with left lung abscess. Groin wound has no evidence of infection, though some breakdown. Drain output has been ranging from 10ml to 90ml per day. We will continue to monitor and management groin wound and drain whole patient in house. Dr. Bennett to see wound today. Recommendations: - Continue to monitor wound and drain output - Both inguinal drains currently with serous output Seen by surgical oncology team Final recommendations pending, will discuss today with Dr. Bennett Attestation: Note Completion: I am a: Resident/Fellow Attending AttestationI reviewed the resident/fellows documentation and discussed the patient with the resident/fellow. I agree with the resident/fellows medical decision making as documented in the note. Electronic Signatures: Hussein Bennett () (Signed 29-Jan-2023 09:15) Authored: Note Completion Co-Signer: Service, Subjective Data, Objective Data, Assessment and Plan, Note Completion Black Love (Resident)) (Signed 28-Jan-2023 08:27) Authored: Service, Subjective Data, Objective Data, Assessment and Plan, Note Completion Last Updated: 29-Jan-2023 09:15 by Hussein Bennett () Normal [facility] FUNGAL CULTURE/SM, MISCount Includes [facility] FUNGAL CULTURE/SM, [facility] PATIENT: EMPERATRIZ EPPS LOCATION: BILL#: [id number] : 42 AGE: SEX: M ORDERED BY: MARÍA BOGGS SOURCE: BIOPSY COLLECTED: 01/28/23 15:26 ANTIBIOTICS AT ILYA.: RECEIVED : 01/28/23 23:48 SITE: CLAVICLE ABSCESS R E S U L T S FUNGAL SMEAR FINAL 01/29/23 14:46 FLUORESCENT FUNGAL STAIN: NEGATIVE FUNGAL CULTURE/, [facility] FINAL 02/15/23 10:54 NO FUNGI ISOLATED. Normal [facility] Comment on above: Performed By: #### F [facility] ####[id number] [place] [address] FUNGAL CULTURE/SM, [facility] PATIENT: EMPERATRIZ EPPS LOCATION: BILL#: [id number] : 42 AGE: SEX: M ORDERED BY: MARÍA BOGGS SOURCE: SURGICAL WOUND COLLECTED: 01/28/23 15:25 ANTIBIOTICS AT ILYA.: RECEIVED : 01/28/23 23:46 SITE: STERNO-CLAVICULAR JOINT R E S U L T S FUNGAL SMEAR FINAL 01/29/23 14:46 FLUORESCENT FUNGAL STAIN: NEGATIVE FUNGAL CULTURE/, MISC FINAL 02/15/23 10:57 NO FUNGI ISOLATED. Normal [facility] Comment on above: Performed By: #### M G #### [facility] [address] [place] [address] MAGNESIUMon 01-28-2023 Magnesium [Mass/Vol] 2.10 mg/dL Normal 1.60 - 2.40 [facility] Comment on above: Performed By: #### C OVSC #### [facility] [address] [place] [address] MISCELLANEOUS CULT./SM.BACT. on 01-28-2023 MISCELLANEOUS CULT./SM.BACT. PATIENT: EMPERATRIZ EPPS LOCATION: [place] [address] BILL#: [id number] : 42 AGE: SEX: M ORDERED BY: MARÍA BOGGS SOURCE: BIOPSY COLLECTED: 01/28/23 15:26 ANTIBIOTICS AT ILYA.: RECEIVED : 01/28/23 23:47 SITE: CLAVICLE ABSCESS Supplemental Report R E S U L T S GRAM STAIN FINAL 01/29/23 10:24 2+ GRANULOCYTES. 3+ GRAM (+) COCCI MISCELLANEOUS CULT./SM.BACT. FINAL 02/01/23 11:28 THIS REPORT CONTAINS ADDITIONAL INFORMATION NOT INCLUDED IN PREVIOUS FINAL REPORT. CEFTRIAXONE SUSCEPTIBILITY INCLUDED PER ID REQUEST ISOLATE1 : Group B streptococcus 3+ Organism Group B strep Antibiotic BP INTRP Ceftriaxone S Clindamycin R Erythromycin R Penicillin S S=SUSCEPTIBLE I=INTERMEDIATE R=RESISTANT SDD=SUSCEPTIBLE DOSE DEPENDENT NS=NONSUSCEPTIBLE X=REPORTED IN ERROR Normal [facility] Comment on above: Performed By: #### C OVSC #### [facility] [address] [place] [address] MISCELLANEOUS CULT./SM.BACT. PATIENT: EMPERATRIZ EPPS LOCATION: [place] [address] BILL#: [id number] : 42 AGE: SEX: M ORDERED BY: MARÍA BOGGS SOURCE: SURGICAL WOUND COLLECTED: 01/28/23 15:25 ANTIBIOTICS AT ILYA.: RECEIVED : 01/28/23 23:45 SITE: STERNO-CLAVICULAR JOINT R E S U L T S GRAM STAIN FINAL 01/29/23 10:33 3+ GRANULOCYTES. 3+ GRAM (+) COCCI MISCELLANEOUS CULT./SM.BACT. FINAL 01/31/23 11:40 ISOLATE1 : Group B streptococcus 4+ Organism Group B strep Antibiotic BP INTRP Clindamycin R Erythromycin R Penicillin S S=SUSCEPTIBLE I=INTERMEDIATE R=RESISTANT SDD=SUSCEPTIBLE DOSE DEPENDENT NS=NONSUSCEPTIBLE X=REPORTED IN ERROR Normal [facility] Comment on above: Performed By: #### B #### [facility] [address] [address] TH CHEST 1 VIEWon 01-28-2023 TH CHEST 1 VIEW Patient Name: EMPERATRIZ EPPS STUDY: CHEST 1 VIEW; 01/28/2023 4:01 am INDICATION: eval lung thomas . COMPARISON: 01/27/2023. ACCESSION NUMBER(S): [id number] ORDERING CLINICIAN: AZUCENA GERMAN FINDINGS: Interval placement of left-sided apical pigtail catheter. CARDIOMEDIASTINAL SILHOUETTE: Cardiomediastinal silhouette is normal in size and configuration. LUNGS: Interval improvement in the left apical soft tissue opacities/effusion. Residual left apical fluid/atelectasis. No pneumothorax. ABDOMEN: No remarkable upper abdominal findings. BONES: No acute osseous changes. IMPRESSION: 1. There has been interval decrease in a left apical infiltrate/loculated effusion. There is residual left apical pleural fluid. No pneumothorax. Follow-up as clinically indicated Electronically signed by: Rasta SHARMA MD Normal [facility] Surgical Pathology Depar tmenton 01-28-2023 [facility] Surgical Pathology Department Name EMPERATRIZ EPPS Pathologist: BHARGAV ZEPEDA MD Date of Procedure: 01/28/2023 Date Received: 01/28/2023 Date Reported 02/17/2023 Submitting Physician: MARÍA BOGGS MD Location: [place] [address] Other External # FINAL DIAGNOSIS A. CLAVICLE ABSCESS: --ACUTE INFLAMMATION, FIBROSIS AND GRANULATION TISSUE INVOLVING FIBROUS AND ADIPOSE TISSUE. --BONE, NO SIGNIFICANT PATHOLOGIC ABNORMALITY. Electronically Signed Out By BHARGAV ZEPEDA MD/JACLYN By the signature on this report, the individual or group listed as making the Final Interpretation/Diagnosis certifies that they have reviewed this case. Diagnostic interpretation performed at [facility] [address] [place] [address] Clinical History: Physician Contact Number: [id number] Fixative (A): Formalin Clinical Diagnosis History: EMPERATRIZ EPPS is a 83 year old [...] 25 mg BID Alfuzosin Prednisone--> Acutely for Pleurisy, no chronic steroid use ROS 13 Point Review of Systems Complete and Negative Except as Noted in HPI Specimens Submitted As: A: CLAVICLE ABSCESS Gross Description: Received in formalin, labeled with the patient's name and hospital number and A, clavicle abscess, are multiple fragments of bone and soft tissue aggregating to 7.6 x 5.4 x 1.2 centimeter. Caisson Worker sections are submitted in 1 cassette. EXO exo/02/10/2023 [facility] Department of Pathology [address] [place] [address] Normal [facility] Comment on above: Performed By: #### [facility] #### [facility] Surgical Pathology Department [id number] [place] [address] Admission Risk Screen - Adul ton 01-27-2023 Admission Risk Screen - Adult Allergies: Allergies: No Known Allergies: Patient Verification: New W ID Band Applied in my Departmentyes Patient Identity Verified Bypatient ID Band FULL Name, include Middle, spelling matches patient's ID used for verificationyes ID Band Matches Patient ID used for Verficationyes ID Band MRN Matches EMR MRNyes Visitor Restriction: Coronavirus Visitor Restriction: Reasonable restrictions to in-person visitors will be observed due to current coronavirus pandemic. Travel History: COVID-19 Screening CompletedCOVID positive 14 or more days ago Travel or Exposure Past 30 DaysNO travel to International locations in the past 30 days Ebola AlertFor Ebola-like Symptoms: Isolate Patient and Notify Provider/Pharmaceutical Operator For Contact: Notify Provider/Pharmaceutical Operator Advance Directive: Advance Directive/DNRyes Advance Directive typeDurable Power of Automotive Sales Specialist for Healthcare Durable Power of Automotive Sales Specialist AvailabilityDPOA not available now Durable Power of Automotive Sales Specialist [id number] Durable Power of Automotive Sales Specialist contact (name and number)na Mir Fall Screen: History of falling (immediate or previous)no (0) Secondary Diagnosisyes (15) Intravenous Therapy/ Heparin/Saline Lockyes (20) Gait/Transferringnormal/ bedrest/wheelchair (0) Ambulatory Aidscrutches/walker/cane (15) Mental Statusoriented to own ability (0) Score: Low risk (<25). Moderate risk (25-44). High risk (>44).50 Mri InterventionsHIGH INTERVENTIONS *Low and Moderate Interventions Plus: * supervised toileting at all times Family Violence Screen: Are you or have you been threatened or abused physically, emotionally, or sexually by anyoneno Has anyone ever threatened to hurt your family or your petsno Does anyone try to keep you from having/contacting other friends or doing things outside your homeno Do you feel UNSAFE going back to the place where you are livingno Do you feel anyone has exploited or taken advantage of you financially or of your personal propertyno Clinical assessment: Are there any apparent signs of injuries/behaviors that could be related to abuse/neglectno Social Service Consult for abuse/neglect needed this visitno Functional Screen: Functional Screen: In the recent/past 2-4 weeks, patient or family have noticedno issues that require a speech/language consult at this time AM-PAC- Basic Mobility/Daily Activity: Patient baseline bedboundno Turning from your back to your side while in a flat bed without using bedrailsa little Moving from lying on your back to sitting on the side of a flat bed without using bedrailsa little Moving to and from bed to chair (including a wheelchair)a little Standing up from a chair using your arms (e.g. wheelchair or bedside chair)a little To walk in hospital rooma little Climbing 3-5 steps with railinga little Basic Mobility - Total Score18 Putting on and taking off regular lower body clothinga lot Bathing (including washing, rinsing, drying)a lot Putting on and taking off regular upper body clothinga lot Toileting, which includes using toilet, bedpan or urinala lot Taking care of personal grooming such as brushing teetha lot Eating Mealsa little Daily Activity - Total Score13 Learning Assessment (Patient): Patient is Able to be Assessed for Learningyes Factors Influencing Readiness to Learnpain Factors that Impact Ability to Learnnone Devices/Methods Used to Communicatenone Learning Preferencesverbal instruction Cultural Considerationsnone Developmental Considerationsnone Jain Considerationsnone Learning Assessment (Other Learner): Other learner availableno Depression Screen: During the past month, have you often been bothered by feeling down, depressed or hopelessyes During the past month, have you often had little interest or pleasure in doing thingsyes Have you had any thoughts of harming anyone elseno [place] Suicide: Risk Screen Not Applicable/Able to Answerable to be screened In the Past Month: Have you wished you were or could go to sleep and not wake upno In the Past Month: Have you had any actual thoughts of killing yourselfno Lifetime: Have you ever done, started to do, or prepared to do anything to end your lifeno [place] Suicide Risknegative Adult Nutrition Screen: Have you recently lost weight without tryingyes; 2-13 lb Have you been eating poorly because of a decreased appetiteno Malnutrition Screening Tool Score1 Malnutrition Screening Tool RiskMST = 0 or 1 Not at risk. Eating well with little or no weight loss Nutrition Consult needed this visitno Can Patient Participate in Room Serviceyes Patient requires Paper Dishes/Plastic Utensilsno Pain Screen: Pain Scalenumerical 0-10 Pain Scale Educationteaching provided Current Pain Level4 = Moderate Acceptable Pain Level0 = None Expression of Pain (nonverbal)verbalization Chronic (more content not included)... Normal [facility] BLOOD CULTURE, BACTERIALon 0 01-27-2023 BLOOD CULTURE, BACTERIAL PATIENT: EMPERATRIZ EPPS LOCATION: BILL#: [id number] : 42 AGE: SEX: M ORDERED BY: STANISLAW CARO SOURCE: Blood COLLECTED: 01/27/23 08:47 ANTIBIOTICS AT ILYA.: RECEIVED : 01/27/23 09:56 SITE: CENTRAL LINE R E S U L T S BLOOD CULTURE, BACTERIAL FINAL 01/31/23 11:42 No Growth at 1 days No Growth at 2 days No Growth at 3 days NO GROWTH at 4 days - FINAL REPORT Normal [facility] Comment on above: Performed By: #### C OVSC #### [facility] [address] [place] [id number] BLOOD CULTURE, BACTERIAL PATIENT: EMPERATRIZ EPPS LOCATION: BILL#: [id number] : 42 AGE: SEX: M ORDERED BY: STANISLAW CARO SOURCE: Blood COLLECTED: 01/27/23 08:47 ANTIBIOTICS AT ILYA.: RECEIVED : 01/27/23 09:56 SITE: PERIPHERAL R E S U L T S BLOOD CULTURE, BACTERIAL FINAL 01/31/23 11:42 No Growth at 1 days No Growth at 2 days No Growth at 3 days NO GROWTH at 4 days - FINAL REPORT Normal [facility] Comment on above: Performed By: #### B MP #### [facility] [address] [place] [address] BLOOD CULTURE, BACTERIAL PATIENT: EMPERATRIZ EPPS LOCATION: [place] [address] BILL#: [id number] : 42 AGE: SEX: M ORDERED BY: STANISLAW CARO SOURCE: Blood COLLECTED: 01/27/23 08:47 ANTIBIOTICS AT ILYA.: RECEIVED : 01/27/23 09:58 SITE: PERIPHERAL R E S U L T S BLOOD CULTURE, BACTERIAL FINAL 01/31/23 11:42 No Growth at 1 days No Growth at 2 days No Growth at 3 days NO GROWTH at 4 days - FINAL REPORT Normal [facility] Comment on above: Performed By: #### B MP #### [facility] [address] [place] [address] CBCon 01-27-2023 Erythrocyte distribution width (RBC) [Ratio] 13.8 % Normal 11.5 - 14.5 [facility] Comment on above: Performed By: #### C BC ####[id number] [place] [address] Hematocrit (Bld) [Volume fraction] 31.1 % Low 41.0 - 52.0 [facility] Comment on above: Performed By: #### C BC ####[id number] [place] [address] Hemoglobin (Bld) [Mass/Vol] 10.4 g/dL Low 13.5 - 17.5 [facility] Comment on above: Performed By: #### C BC ####[id number] [place] [address] MCHC (RBC) [Mass/Vol] 33.4 g/dL Normal 32.0 - 36.0 [facility] Comment on above: Performed By: #### C BC ####[id number] [place] [address] MCV (RBC) [Entitic vol] 94 fL Normal 80 - 100 U [facility] Comment on above: Performed By: #### C BC ####[id number] [place] [address] NUCLEATED RBC 0.0 /100 WBC Normal 0.0-0.0 [facility] Comment on above: Performed By: #### C BC ####[id number] [place] [address] Platelets (Bld) [#/Vol] 413 10*3/uL Normal 150 - 450 [facility] Comment on above: Performed By: #### C BC ####[id number] [place] [address] RBC 3.30 x10E12/L Low 4.50 - 5.90 [facility] Comment on above: Performed By: #### C BC ####[id number] [place] [address] WBC (Bld) [#/Vol] 15.5 10*3/uL High 4.4 - 11.3 [facility] Comment on above: Performed By: #### C BC ####[id number] [place] [address] CELL COUNT AND DIFF, FLUIDon 01-27-2023 BASOPHILS Canceled Normal [facility] Comment on above: Order Comment: TEST MAGNESIUM WAS CANCELLED, 02/04/2023 07:10 Performed By: #### M G #### [facility] [address] [place] [address] BLASTS Canceled Normal [facility] Comment on above: Order Comment: TEST MAGNESIUM WAS CANCELLED, 02/04/2023 07:10 Performed By: #### M G #### [facility] [address] [place] [address] CELLS COUNTED Canceled Normal [facility] Comment on above: Order Comment: TEST MAGNESIUM WAS CANCELLED, 02/04/2023 07:10 Performed By: #### M G #### [facility] [address] [place] [address] Clarity (U) Canceled Normal [facility] Comment on above: Order Comment: TEST MAGNESIUM WAS CANCELLED, 02/04/2023 07:10 Performed By: #### M G #### [facility] [address] [place] [address] Color (U) Canceled Normal [facility] Comment on above: Order Comment: TEST MAGNESIUM WAS CANCELLED, 02/04/2023 07:10 Performed By: #### M G #### [facility] [address] [place] [address] EOSINOPHILS Canceled Normal [facility] Comment on above: Order Comment: TEST MAGNESIUM WAS CANCELLED, 02/04/2023 07:10 Performed By: #### M G #### [facility] [address] [place] [address] FLUID COMMENT Canceled Normal [facility] Comment on above: Order Comment: TEST MAGNESIUM WAS CANCELLED, 02/04/2023 07:10 Performed By: #### M G #### [facility] [address] [place] [address] IMMATURE GRANS Canceled Normal [facility] [place] Comment on above: Order Comment: TEST MAGNESIUM WAS CANCELLED, 02/04/2023 07:10 Performed By: #### M G #### [facility] [address] [place] [address] LYMPHOCYTES Canceled Normal [facility] Comment on above: Order Comment: TEST MAGNESIUM WAS CANCELLED, 02/04/2023 07:10 Performed By: #### M G #### [facility] [address] [place] [address] MONONUCLEAR CELLS Canceled Normal [facility] Comment on above: Order Comment: TEST MAGNESIUM WAS CANCELLED, 02/04/2023 07:10 Performed By: #### M G #### [facility] [address] [place] [address] NEUTROPHILS Canceled Normal [facility] Comment on above: Order Comment: TEST MAGNESIUM WAS CANCELLED, 02/04/2023 07:10 Performed By: #### M G #### [facility] [address] [place] [address] PLASMA CELLS Canceled Normal [facility] Comment on above: Order Comment: TEST MAGNESIUM WAS CANCELLED, 02/04/2023 07:10 Performed By: #### M G #### [facility] [address] [place] [address] RBC COUNT Canceled Normal [facility] Comment on above: Order Comment: TEST MAGNESIUM WAS CANCELLED, 02/04/2023 07:10 Performed By: #### M G #### [facility] [address] [place] [id number] UNCLASSIFIED CELLS Canceled Normal [facility] Comment on above: Order Comment: TEST MAGNESIUM WAS CANCELLED, 02/04/2023 07:10 Performed By: #### M G #### [facility] [address] [place] [id number] WBC COUNT Canceled Normal [facility] Comment on above: Order Comment: TEST MAGNESIUM WAS CANCELLED, 02/04/2023 07:10 Performed By: #### M G #### [facility] [address] [place] [id number] Lab Specimen Source Pleural fluid (thoracentesis fld) Normal [facility] Comment on above: Order Comment: TEST MAGNESIUM WAS CANCELLED, 02/04/2023 07:10 Performed By: #### M G #### [facility] [address] [place] [address] Performed By: #### B MP #### [facility] [address] [place] [address] COAGULATION SCREENon 023 aPTT Coag (Bld) [Time] 30 s Normal 26 - 39 [facility] Comment on above: Result Comment: THE APTT IS NO LONGER USED FOR MONITORING UNFRACTIONATED HEPARIN THERAPY. FOR MONITORING HEPARIN THERAPY, USE THE HEPARIN ASSAY. Performed By: #### B MP #### [facility] [address] [place] [address] PT Coag (PPP) [Time] 16.1 s High 9.8 - 13.4 [facility] Comment on above: Performed By: #### B MP #### [facility] [address] [place] [address] PT, INR 1.4 High 0.9 - 1.1 [facility] Comment on above: Performed By: #### B MP #### [facility] [address] [place] [id number] CORONAVIRUS 2019, SCREEN ASY MPTOMATICon 01-27-2023 SARS-CoV-2 (COVID-19) RNA KACIE+probe Ql (Unsp spec) Not detected Normal Not Detected [facility] Comment on above: Result Comment: . This test has received FDA Emergency Use Authorization (EUA) and has been verified by [facility] ([facility]). This test is only authorized for the duration of time that circumstances exist to justify the authorization of the emergency use of in vitro diagnostic tests for the detection of SARS-CoV-2 virus and/or diagnosis of COVID-19 infection under section 564(b)(1) of the Act, 21 U.S.C. 360bbb-3(b)(1), unless the authorization is terminated or revoked sooner. [facility] is certified under CLIA-88 as qualified to perform high complexity testing. Testing is performed in the [facility] located at [address] [place] [address]. SARS-CoV-2/Flu/RSV Multiplex Test: Fact sheet for providers: https://www.fda.gov/media/090533/download Fact sheet for patients: https://www.fda.gov/media/611172/download Performed By: #### C OVSC #### [address] [place] [address] Lab Specimen Source Nasal, Nasopharyngeal Normal [facility] Comment on above: Performed By: #### C OVSC #### [address] [place] [address] Consult-Surgical Oncologyon 01-27-2023 Consult-Surgical Oncology Service: Service: Surgical Oncology Consult: Consult requested by (Attending Name): María Boggs Reason: s/p inguinal lymph node dissection. FARNAZ drain x 2. History of Present Illness: HPI: EMPERATRIZ EPPS is a 83 year old Male who had metastetic melanomma s/p right inguinal lymph node dissection, sartorius flap reconstruction excision of skin lesion on 12/23/22. Patient now presented with left lung abscess. We are consulted for groin wound and drain management. PMH Melanoma Prostate CA GERD HTN HLD PAFIB [...] smoking Occasional ETOH Denies Illicits Allergies NKDA Review Family/Social History and ROS: Social History: Smoking Status: never smoker (1) Allergies: No Known Allergies: Objective: Objective Information: T PRBPMAPSpO2 [id number]/6893% Date/Time01/27 14: 14: 14: 14: 14:44 Range(37C - 37.6C ) (83 - 99 ) (18 - 20 ) (103 - 124 )/ (67 - 89 ) (93% - 95% ) As of 27-Jan-2023 11:02:00, patient is on 2 L/min of oxygen via nasal cannula. Highest temp of 37.6 C was recorded at 01/27 11:02 Pain reported at 01/27 15:31: 1 = Mild Weights 01/27 11:46: Weight in kg (Weight (kg)) 89.4 01/27 11:46: Weight in lbs ((lbs)) 197 01/27 11:46: BMI (kg/m2) (BMI (kg/m2)) 31.902 ---- Intake and Output ----- Mn/Dy/[facility] Jan 27, 2023 2:00 [id number] Physical Exam Narrative: Physical Exam: Constitutional: Awake, Alert, Mild Distress with occasional painful coughing fits, patient with self applied cervical collar Eyes: EOMI, No jaundice ENMT: MMM Head/Neck: NCAT, Neck with some tenderness at Left Base, IR drain with purulent output Respiratory/Thorax: No dyspnea, Bilateral Breath Sound Present Cardiovascular: Regular rate and rhythm, Good distal Pulses Gastrointestinal: Soft, NT, ND Genitourinary: Right Groin Incision with some breakdown and fibrinous exudate in medial area, no erythema, drainage or tenderness. two drains with serous output Neurological: No deficits, AAOX3 Medications: Medications: Continuous Medications -------- No continuous medications are active Scheduled Medications -------- 1. Acetaminophen: 650 mg Oral Every 4 Hours 2. Alfuzosin Extended Release: 10 mg Oral Every 24 Hours 3. Docusate 50 mg - Senna 8.6 m tablet(s) Oral At Bedtime 4. Levothyroxine: 112 microgram(s) Oral Daily 5. Metoprolol Tartrate: 12.5 mg Oral 2 Times a Day 6. Pantoprazole: 40 mg Oral Daily 7. Piperacillin - Tazobactam 3.375 gram/Iso-osmotic 50 mL Premix IVPB: 50 mL IntraVenous Piggyback Every 6 Hours 8. Polyethylene Glycol: 17 gram(s) Oral Daily 9. Vancomycin - RPh to Dose - IV Piggy Back: 1 each As Specified Variable PRN Medications -------- 1. oxyCODONE Immediate Release: 2.5 mg Oral Every 4 Hours 2. oxyCODONE Immediate Release: 5 mg Oral Every 4 Hours 3. Sore Throat Lozenge: 1 lozenge(s) Oral Every 3 Hours Recent Lab Results: Results: I have reviewed these laboratory results: Lactate Dehydrogenase, Fluid 27-Jan-2023 12:49:00 ResultValue Fluid Source Pleural fluid (thoracentesis fld) Lactate Dehydrogenase, Fluid >36618 Cell Count + Differential, Body Fluid 27-Jan-2023 12:49:00 ResultValue Fluid Source Pleural fluid (thoracentesis fld) Culture, Blood 27-Jan-2023 08:47:00 ResultValue Culture, Blood NEGATIVE TO DATE, CULTURE IN PROGRESS. Coronavirus 2019, Screen Asymptomatic 27-Jan-2023 04:30:00 ResultValue Fluid Source Nasal, Nasopharyngeal Coronavirus 2019,PCR NOT DETECTED Reference Range: Not Detected .This test has received FDA Emergency Use Authorization (EUA) and has been verified by [facility] ([facility]). This test is only authorized for the duration of time josé Complete Blood Count 27-Jan-2023 04:27:00 ResultValue White Blood Cell Count 15.5 H Nucleated Erythrocyte Count 0.0 Red Blood Cell Count 3.30 L HGB 10.4 L HCT 31.1 L MCV 94 MCHC 33.4 PLT 413 RDW-CV 13.8 Renal Function Panel 27-Jan-2023 04:27:00 ResultValue Glucose, Serum 83 NA 133 L K 4.2 CL 101 Bicarbonate, Serum 25 Anion Gap, Serum 11 BUN 30 H CREAT 0.91 GFR Male 84 Calcium, Serum 8.3 L Phosphorus, Serum 3.5 ALB 2.3 L Coagulation Screen 27-Jan-2023 04:27:00 ResultValue Prothrombin Time, Plasma 16.1 H International Normalized Ratio, Plasma 1.4 H Activated Partial Thromboplastin Time 30 Radiology Res (more content not included)... Normal [facility] Covid 19 Resultson 3 SARS-CoV-2 (COVID-19) RNA KCAIE+probe Ql (Unsp spec) NEGATIVE COVID-19 Test Coronaviruses are common world-wide and are the cause of many common colds. SARS-COV2 is a new coronavirus that began circulating worldwide in 2019 so we are calling it COVID-19. It has been estimated that four out of five patients with COVID-19 will recover at home without the need for medical attention. Symptoms of COVID-19 may include cough, fever, shortness of breath, loss of taste or smell and other flu-like symptoms including chills, sore muscles, sore throat, and headache. Severe illness is more common in older people and people with other health problems such as high blood pressure, obesity, and immune system problems. If the test is positive, you have COVID-19. You will be contacted by the ordering physicians office and instructed to remain on home isolation, in accordance with CDC guidelines. You may also be contacted by the [facility] to see if any of your close contacts may have been exposed to the virus and need to quarantine. If the test is negative, you likely do not have COVID-19 at this time, but you still may have a different illness that can spread to other people (like Influenza, or the Flu) and could still be at risk for getting COVID-19. We recommend that you stay away from other people to limit the spread of illness until your symptoms are improving and you are fever-free for 24 hours without the use of fever lowering medications such as acetaminophen or ibuprofen. No test is 100% accurate so if you are still concerned you may have COVID-19, talk to your doctor about the need to continue to stay away from others. Medicines Unless your provider told you not to use the following: Acetaminophen (Tylenol and others) is generally safe. Anti-inflammatory medications, such as Ibuprofen (Advil or Motrin) or Naproxen (Aleve) can also be used. Jvvc-lwe-uaafbts cough and cold medicines can be used according to the instructions on the package. Some ynxd-mzt-vlzysto medicines also contain acetaminophen. Make sure you are not taking more than your recommended dose. For those not hospitalized, there is no specific treatment available for this illness. Antibiotics do not treat Coronaviruses. Follow-Up Follow up with your doctor by scheduling a virtual visit or consider follow-up at one of our urgent care fever clinics. If you are having difficulty breathing, or are very weak and having difficulty standing, this is a medical emergency. Call 911 or have someone take you to the nearest emergency room immediately. If possible, wear a facemask. Additional guidance from the CDC for patients who tested POSITIVE for COVID-19 How to isolate: Isolate yourself in a specific room at home and limit your contact with others. Use a separate bathroom from other members of the household, when possible. Leave home only to get essential medical care. Do not go to work, school or public areas. Avoid using public transportation, ride-sharing, or taxis. Restrict contact with pets and other animals. If you must care for your pet or be around animals while you are sick, wash your hands before and after your interaction and wear a facemask. Make sure that shared spaces in the home have good airflow, such as by an air conditioner or an opened window, weather permitting. Personal Hygiene Procedures: Wear a face mask when in the same room as other people or pets. If a face mask interferes with your breathing, others should wear a mask when sharing space with you. Frequent hand-washing: wash your hands with soap and water for at least 20 seconds. If soap and water are not available, use alcohol-based hand presser machine. Avoid touching your eyes, nose, and mouth with unwashed hands. Household Hygiene Procedures: Avoid sharing personal household items such as dishes, glassware, cups, eating utensils, towels or bedding with other people or pets in your home. After use, these items should be washed with soap and hot water. Disinfect all high-touch surfaces every day with antibacterial cleaning solutions such as Lysol wipes, bleach, cleansers, etc. High-touch surfaces include tabletops, doorknobs, bathroom fixtures, toilets, phones, keyboards, tablets and bedside tables. Immediately clean any surfaces that may have blood, poop or body fluids on them, using antibacterial cleaning solutions such as Lysol wipes, bleach, cleansers, etc. If clothing or bedding come into contact with blood, poop or body fluids, they should be washed immediately. Follow the directions on the laundry detergent and clothing labels but hot water is recommended when possible. Stopping home isolation precautions: If possible, consult your doctor before stopping home isolation precautions. According to the CDC, you can discontinue home isolation precautions when you have met both of these criteria: Your fever and respiratory symptoms have been gone for 24 delia (more content not included)... Normal [facility] DRAINAGE OF PERITONEAL ABSCE SS, PERCUTANEOUSon 01-27-2023 DRAINAGE OF PERITONEAL ABSCESS, PERCUTANEOUS Patient Name: EMPERATRIZ EPPS STUDY: DRAINAGE OF PERITONEAL ABSCESS, PERCUTANEOUS; 01/27/2023 12:50 pm INDICATION: Patient with large Left Chest/Lung Abscess, Would benefit from image guided drainage prior to operative debridement . COMPARISON: CTA chest 01/26/2023 ACCESSION NUMBER(S): [id number] ORDERING CLINICIAN: NATASHA LION TECHNIQUE: INTERVENTIONALIST(S): Dr. Juan Manuel Li CONSENT: The patient/patient's POA/next of kin was informed of the nature of the proposed procedure. The purposes, alternatives, risks, and benefits were explained and discussed. All questions were answered and consent was obtained. SEDATION: Anesthesia was provided by the physician performing the procedure with intravenous fentanyl 50mcg. The physician was assisted by an independent trained observer, an interventional radiology nurse, in the continuous monitoring of patient level of consciousness and physiologic status. MEDICATION/CONTRAST: No additional. TIME OUT: A time out was performed immediately prior to procedure start with the interventional team, correctly identifying the patient name, date of , MRN, procedure, anatomy (including marking of site and side), patient position, procedure consent form, relevant laboratory and imaging test results, antibiotic administration, safety precautions, and procedure-specific equipment needs. COMPLICATIONS: No immediate adverse events identified. FINDINGS: The patient was placed in the supine position and the area of concern (left lung apex) was prepped and draped under sterile technique. Limited sonographic images of the left lung were obtained for purposes of needle guidance, which demonstrated a partially well-formed complex fluid collection within the anterior left lung apex. 1% lidocaine was injected subcutaneously and then into the deeper tissues surrounding the targeted area for biopsy. Subsequently a 5 [place] Yueh catheter was inserted into the collection under direct ultrasound guidance. A small amount of purulent fluid was aspirated to help confirm catheter position. Subsequently a 035 Amplatz wire was advanced into the collection. The Yueh catheter was exchanged for a 10 [place] dilator to dilate the tract. Afterwards a 10 [place] pigtail catheter was advanced into the collection over the wire. The wire and stiffener were removed and the pigtail formed and locked within the collection. Ultrasound demonstrated the pigtail well-positioned within the collection. Additional purulent fluid was aspirated for a total of 150 mL. A FARNAZ drain was attached. The patient tolerated the procedure well and there were no immediate complications. Specimen(s) sent to laboratory/pathology. IMPRESSION: Successful successful ultrasound guided placement of a 10 [place] pigtail drainage catheter into the left apical lung abscess with removal of approximally 150 cc of purulent material. Specimen(s) Sent to laboratory/pathology. I was present for and/or performed the critical portions of the procedure and immediately available throughout the entire procedure. I personally reviewed the image(s) / study and interpretation. I agree with the findings as stated. Performed and dictated at [facility]. Electronically signed by: JAMES LI MD [facility] Discharge Planning [id number] 01-27-2023 Discharge Planning Note2 Discharge Plann ing: Needs Prior to Discharge (ex. Home Care Orders, IV/O2 prescriptions) gold form Discharge Barriersinsurance authorization Planned Dispositionsnf [facility] P[facility]/Next Provider Follow Up Scheduledyes Discharge Transportation Needed from [facility] [place] of Choice Explainedno Anticipated Discharge [id number] Discharge Planning Transitional Shipping Track Supervisor Note: 01/27/2023@ 09:58. Met with patient to introduce myself, role and discuss discharge planning s/p re-admission for thoracic surgery. Patient is alert and oriented lives alone. Independent in all ADL's. Requires a walker to assist with mobility. Patient denies active home care and feels that he requires 24 hour care. Unable to care for himself at this time. Demographics and contact information confirmed. Will continue to monitor patient for all home going needs. Torito Young RN [facility] [phone] 01/30/3023@ 12:23 Transitional Care Coordination Progress Note: Patient discussed during interdisciplinary rounds. Team members present: (TCC ) Plan per Medical/Surgical team: (Thoracic surgery) Discharge disposition: (Home with HC blanket referral sent) Status- In patient Payer- [facility] Care Potential Barriers: (Surgical debridement) ADOD: (1-2 days) .Torito Young RN [facility] [phone] 02/02/2023@ 11:06 Patient is medically ready for discharge. Final HC orders shall be submitted to [facility] for home care. .Torito Young RN [facility] [phone] 02/01/23 1517 Patient Pickling Solution Maker Note Notified by ORE DRESSING ENGINEER that patient has been recommended for SNF for drain care and IV ATBs. Provided shelter list to patient at the bedside from [facility] directory that includes facilities that are within Post - Acute Quality Network, as well as meeting patients medical needs, and are in-network for patients insurance; while also in discharge geographic area patient prefers, and identifies each facilities [facility] star rating. Facilities in order of preference are 1. [facility] 2. [facility]. Referral will be submitted to above facilities for review. -Luisa Mcnulty LPN [employer]ling Solution Maker [phone] or Doc Halo 02/02/23 0820 Patient Pickling Solution Maker Note Patient updated on acceptance at [facility]. This is facility of preference. Patient will need precert and being initiated this am. TCC aware. UPDATE 5859- Attached updates and sent to [facility]. Patient pending precert. -Luisa Mcnulty LPN [employer] [phone] or Doc Halo 02/03/23 0952 Patient Pickling Solution Maker Note Attached updates and sent to [facility]. Patient pending precert, precert escalated. Will continue to follow. UPDATE 1058- Notified that precert was obtained and ride placed in roundtrip. Team to order STAT covid. UPDATE 1155- Notified by team patient medically ready to discharge today Patient will discharge today to: SNF Facility name: [facility] Christmas Tree Grader aware and given blue transport slip Bedside nurse aware Phone number for report: [phone] Ambulance transport arranged with via stretcher with [facility] [phone] supervisor publications time: 4:30pm Patient and family aware of transport time and potential costs -Luisa Mcnulty LPN [employer] Maker [phone] or Leonardo Flynn AxOx3,NAD, VSS, d/c instructions obtained and delivered to PT with daughter as witness via facetime, drainages intact, nutrition, activities and appointments accounted for, all questions resolved, telebox accounted for with PIV catheter intact upon removal, report given to [facility] PT to be transported home via [facility] [phone] supervisor publications time: 19:10pm Assessment: Discharge Planning Assessment [id number] Discharge Planning Assessment Completed byLeonardo Srinivasan Primary Contact Name and NumberJennbanner [phone] Prior Level of FunctioningIndependent in all adl's. Lives Withalone(1) Living Arrangementshouse(1) Stated Reason for Admissionpain(1) [facility] PCPDr. Anurag D[facility]/ Injury/ Need Assist with AmbulationN/A Equipment Currently Used at [facility] Home Care Agency/Support ServicesN/A Diabetic/Supplies NeededN/A Hemodialysis ScheduleN/A Resource/Environmental Concernsnone(1) Anticipated Transition [facility]inpatient rehabilitation facility [facility] Care Anticipated Changes Related to Illnessinability to care for self Discharge Planning CommentsPatient feels safe at home and denies any issues with making follow up appointments or getting his medications. Patient feels he needs 24 hour care unable to care for himself at this time. Social Determinants of Health IdentifiedN/A Transportation Home Who/HowFamily will assist with transportation Medication Adherence/Afford/Obtainy es O2 LPMN/A Discharge Documentation: (more content not included)... Normal [facility] FLUID CULTURE/SM.,BACTERIALo n 01-27-2023 FLUID CULTURE/SM.,BACTERIAL TEST FLUID CULTURE/SM.,BACTERIAL WAS CANCELLED, 01/27/2023 16:51 ROCKET ENGINE COMPONENT MECHANIC ERROR. SEE#[id number] FOR CULTURE. PATIENT: EMPERATRIZ EPPS LOCATION: [place] [address] BILL#: [id number] : 42 AGE: SEX: M ORDERED BY: NATASHA LION SOURCE: FLUID COLLECTED: 01/27/23 12:49 ANTIBIOTICS AT ILYA.: RECEIVED : SITE: PLEURAL R E S U L T S GRAM STAIN CANCELLED 01/27/23 16:51 FLUID CULTURE/SM.,BACTERIAL CANCELLED 01/27/23 16:51 Normal [facility] Comment on above: Performed By: #### B MP #### [facility] [address] [place] [address] LD,FLUIDon 01-27-2023 LD,FLUID >21419 Normal [facility] Comment on above: Result Comment: REF VALUE NOT ESTABLISHED The performance characteristics of this test have been validated by the [facility] laboratory. This test has not been approved by the FDA; however, such approval is not necessary. Performed By: #### B MP #### [facility] [address] [place] [address] MAGNESIUMon 01-27-2023 Magnesium [Mass/Vol] 1.93 mg/dL Normal 1.60 - 2.40 [facility] Comment on above: Performed By: #### B MP #### [facility] [address] [place] [address] MISCELLANEOUS CULT./SM.BACT. on 01-27-2023 MISCELLANEOUS CULT./SM.BACT. PATIENT: EMPERATRIZ EPPS LOCATION: [place] [address] BILL#: [id number] : 42 AGE: SEX: M ORDERED BY: NATASHA LION SOURCE: WOUND/ABSCESS COLLECTED: 01/27/23 12:50 ANTIBIOTICS AT ILYA.: RECEIVED : 01/27/23 16:50 SITE: L LUNG ABSCESS R E S U L T S GRAM STAIN FINAL 01/27/23 19:59 4+ GRANULOCYTES. 4+ GRAM (+) COCCI IN PAIRS & CHAINS. MISCELLANEOUS CULT./SM.BACT. FINAL 01/29/23 15:42 ISOLATE1 : Group B streptococcus 4+ Organism Group B strep Antibiotic BP INTRP Clindamycin R Erythromycin R Penicillin S S=SUSCEPTIBLE I=INTERMEDIATE R=RESISTANT SDD=SUSCEPTIBLE DOSE DEPENDENT NS=NONSUSCEPTIBLE X=REPORTED IN ERROR Normal [facility] Comment on above: Performed By: #### B MP #### [facility] [address] [place] [address] Order Reconciliationon 01-27 Order Reconciliation Page 1 Admission Reconciliation Document Reconciliation Type: Admission requested on behalf of Natasha Lion (Resident) done by Natasha Lion ( (Resident)) Admission - Partial Reconciliation: 27-Jan-2023 02:24 by: Natasha Lion ( (Resident)) Admission - Reconciliation: 27-Jan-2023 02:25 by: Natasha Lion (Resident)) Home MedicationsEnteredLast Dose TakenReconciled with current Order Reconciliation Comment/ Additional Information acetaminophen 325 mg oral tablet 2 tab(s) orally every 6 [id number] Reviewed and Held alfuzosin 10 mg oral tablet, extended release 1 tab(s) orally once a day 27-Jan-2023 Alfuzosin Extended Release Tablet, Extended Release (UROXATRAL)DOSE = 10 mg Oral Every 24 Hoursalfuzosin 10 mg oral tablet, extended release continued as the inpatient order Alfuzosin Extended Release amLODIPine 5 mg oral tablet 1 tab(s) orally once a [id number] Reviewed and Held apixaban 5 mg oral tablet 1 tab(s) orally 2 times a day, RESTART 12/31/2227-Jan-2023 Reviewed and Held calcium (as carbonate) 600 mg oral tablet 1 tab(s) orally once a day 27-Jan-2023 Reviewed and Held glucosamine 1000 mg oral capsule 2 cap(s) orally once a [id number]-2751 Reviewed and Held levothyroxine 112 mcg (0.112 mg) oral tablet 1 tab(s) orally once a day 27-Jan-2023 Levothyroxine TabletDOSE = 112 microgram(s) Oral Daily levothyroxine 112 mcg (0.112 mg) oral tablet continued as the inpatient order Levothyroxine Metoprolol Tartrate 25 mg oral tablet 1 tab(s) orally 2 times a [id number] Reviewed and Held multivitamin 1 tab(s) orally once a [id number] Reviewed and Held NAC 600 mg oral capsule 1 cap(s) orally 2 times a [id number] Reviewed and Held omeprazole 40 mg oral delayed release capsule 1 cap(s) orally once a day 27-Jan-2023 Pantoprazole Enteric Coated Tablet (PROTONIX)DOSE = 40 mg Oral Dailyomeprazole 40 mg oral delayed release capsule continued as the inpatient order Pantoprazole traMADol 50 mg oral tablet 1 tab(s) orally every 4 to 6 hours x 7 days, As Needed -for pain , Dx: [id number] Reviewed and Held Vitamin D3 25 mcg (1000 intl units) oral tablet 1 tab(s) orally once a day 27-Jan-2023 Reviewed and Held Zinc 140 mg (as elemental zinc 50 mg) oral tablet 1 tab(s) orally once a day 27-Jan-2023 Reviewed and Held Additional Current Orders Acetaminophen Tablet (TYLENOL)DOSE = 650 mg Oral Every 6 Hours Lactated Ringers Infusion IV Bag Volume = 1,000 mL Run at: 60 mL/hr IntraVenous Metoprolol Tartrate Tablet (LOPRESSOR)DOSE = 12.5 mg Oral 2 Times a DayClinician Notes: Hold for HR less than 55, Systolic BP less than 100 oxyCODONE Immediate Release Tablet (OXYIR, ROXICODONE)DOSE = 2.5 mg Oral Every 4 Hours, PRN Pain - Mod (4-6) oxyCODONE Immediate Release Tablet (OXYIR, ROXICODONE)DOSE = 5 mg Oral Every 4 Hours, PRN Pain - Severe (7-10) Piperacillin - Tazobactam 3.375 gram/Iso-osmotic 50 mL Premix IVPB (ZOSYN)Every 6 HoursRecommended Infusion Time: 30 minute(s) Vancomycin - RPh to Dose - IV Piggy Back Indication: Bone and JointGoal Trough: 15-20 Normal [facility] Patient Profile - Adult v2on 01-27-2023 Patient Profile - Adult v2 Profile: Initial Info: How to be AddressedAndy(1) Spoken Language PreferredEnglish (1) Source of Informationpatient Stated Reason for Admissionpain Wants Family/Rep Notified of Admissionn/a; family present Notify PCPnotify PCP Informed of Patient Visiting Rightsyes Arrived Fromhospital Patient Belongingsremains with patient Medications Brought to Hospitalno General Health: Blood Avoidance/Restrictionsno ne(1) Previous Transfusion Reactionno(1) Weight in kg89.4 kilogram(s)(2) Weight in tdo123 pound(s) Weight Methodactual (measured) (2) Scale Typestanding (2) Height in cm167.5 centimeter(s) Height in feet5 feet Height in inches5.98 inch(es) Height Methodstated BMI (kg/m2)31.864 square meter RSP Based Care: How would you like to participate in your careinclude in bedside report What is the number one concern for you during this hospitalizationpain management What is the most important thing we can do to support you during this hospitalizationconstipat ion control Is there anything we need to know to best care for youna Substance: Smoking Statusnever smoker Health Mgmt: Symptoms/Conditions Managed at Homecancer Cancer Symptoms/Conditionsmelan xochitl Cancer Managementmanaged Relationship/Environ: Resource/Environmental Concernsnone Primary Source of Support/Comfortchild(pepe ) Lives Withalone Living Arrangementshouse Services Anticipated at Transitionnone [facility]ated [facility] Significant IndicatorsComplete Information Review: Allergies, Home Meds and Significant Events have been Reviewed and Verified with Patient/Familyyes ALLERGY, INTOLERANCE, ADVERSE EVENT: Allergies: No Known Allergies: Active Electronic Signatures: Malina Beltran (RN) (Signed 27-Jan-2023 07:51) Authored: Initial Info, General Health, RSP Based Care, Substance, Health Mgmt, Relationship/Environ, Additional Information Last Updated: 27-Jan-2023 07:51 by Malina Beltran (ELIESER) References: 1. Data Referenced From Patient Profile - Adult v2 23-Dec-2022 20:10 2. Data Referenced From 1. Vital Signs 27-Jan-2023 04:27 Normal [facility] RENAL FUNCTION PANELon 01-27 Albumin [Mass/Vol] 2.3 g/dL Low 3.4 - 5.0 [facility] Comment on above: Performed By: #### M G #### [place] [address] [place] [address] Anion gap [Moles/Vol] 11 mmol/L Normal 10 - 20 [facility] Comment on above: Performed By: #### M G #### [facility] [address] [place] [address] Calcium [Mass/Vol] 8.3 mg/dL Low 8.6 - 10.6 [facility] Comment on above: Performed By: #### M G #### [facility] [address] [place] [address] Chloride [Moles/Vol] 101 mmol/L Normal 98 - 107 [facility] Comment on above: Performed By: #### M G #### [facility] [address] [place] [address] Creatinine [Mass/Vol] 0.91 mg/dL Normal 0.50 - 1.30 [facility] Comment on above: Performed By: #### M G #### [facility] [address] [place] [address] GFR/1.73 sq M.predicted among non-blacks MDRD (S/P/Bld) [Vol rate/Area] 84 mL/min/{1.73_m2} Normal >90 [facility] Comment on above: Result Comment: CALC ULATIONS OF ESTIMATED GFR ARE PERFORMED USING THE 2020 CKD-EPI STUDY REFIT EQUATION WITHOUT THE RACE VARIABLE FOR THE IDMS-TRACEABLE CREATININE METHODS. https://jasn.asnjournals.org/content/ASN.554 6738302 Performed By: #### M G #### [facility] [address] [place] [address] Glucose [Mass/Vol] 83 mg/dL Normal 74 - 99 [facility] Comment on above: Performed By: #### M G #### [facility] [address] [place] [address] HCO3 (Bld) [Moles/Vol] 25 mmol/L Normal 21 - 32 [facility] Comment on above: Performed By: #### M G #### [facility] [address] [place] [address] Phosphate [Mass/Vol] 3.5 mg/dL Normal 2.5 - 4.9 [facility] Comment on above: Result Comment: The performance characteristics of phosphorus testing in heparinized plasma have been validated by the individual laboratory site where testing is performed. Testing on heparinized plasma is not approved by the FDA; however, such approval is not necessary. Performed By: #### M G #### [facility] [address] [place] [address] Potassium [Moles/Vol] 4.2 mmol/L Normal 3.5 - 5.3 [facility] Comment on above: Performed By: #### M G #### [facility] [address] [place] [address] Sodium [Moles/Vol] 133 mmol/L Low 136 - 145 [facility] Comment on above: Performed By: #### M G #### [facility] [address] [place] [address] Urea nitrogen [Mass/Vol] 30 mg/dL High 6 - 23 [facility] Comment on above: Performed By: #### M G #### [facility] [address] [place] [address] TH CHEST 1 VIEWon 01-27-2023 TH CHEST 1 VIEW Patient Name: EMPERATRIZ EPPS STUDY: CHEST 1 VIEW; 01/27/2023 3:48 am INDICATION: New Admit, Please Obtain for Thoracic AM Rounds . COMPARISON: None. ACCESSION NUMBER(S): [id number] ORDERING CLINICIAN: NATASHA LION FINDINGS: Right IJ line overlies the cavoatrial junction. CARDIOMEDIASTINAL SILHOUETTE: Cardiomediastinal silhouette is normal in size and configuration. LUNGS: Left apical consolidation/mass. Correlate with concern for loculated fluid. ABDOMEN: No remarkable upper abdominal findings. BONES: No acute osseous changes. IMPRESSION: 1. There is left apical parenchymal soft tissue. Correlate with a component of upper lobe volume loss loculated fluid. Correlate with any concern for left upper lobe lung mass. Follow-up with PA and lateral x-ray as clinically indicated Electronically signed by: Rasta SHARMA MD Normal [facility] TYPE + SCREENon 01-27-2023 ABO TYPE A Normal [facility] Comment on above: Performed By: #### B MP #### [facility] [address] [place] [address] RH TYPE Positive Normal [facility] Comment on above: Performed By: #### B MP #### [facility] [address] [place] [address] Basophil percentageOrdered B y: Dr. Rivas on 01-26-2023 Bilirubin [Mass/Vol] 0.50 mg/dL 0.20-1.00 [facility] Comment on above: For patients on eltr ombopag therapy, use of Dimension [place] TBIL is not recommended. Chloride [Moles/Vol] 107 mmol/L 98-107 [facility] Glucose [Mass/Vol] 120 mg/dL 74-106 [facility] Comment on above: Fasting Glucose resu lt from 100 to 125 mg/dL suggests IMPAIRED HOMEOSTASIS per A.D.A. criteria. Potassium [Moles/Vol] 4.0 mmol/L 3.5-5.1 [facility] Protein [Mass/Vol] 6.2 g/dL 6.4-8.2 [facility] Sodium [Moles/Vol] 138 mmol/L 136-145 [facility] WBC (Bld) [#/Vol] 14.9 10*3/uL 4.4-11.0 [facility] Blood erythrocytes count (nu mber/volume)Ordered By: Dr. Rivas on 01-26-2023 RBC (Bld) [#/Vol] 3.62 10*6/uL 4.6-6.2 [facility] Blood hemoglobin measurement (mass/volume)Ordered By: Dr. Rivas on 01-26-2023 Hemoglobin (Bld) [Mass/Vol] 11.4 g/dL 13.0-16.5 [facility] Blood platelet mean volumeOr dered By: Dr. Rivas on 01-26-2023 Platelet mean volume (Bld) [Entitic vol] 8.9 fL 6.2-12.0 [facility] COVID-19 virus antigen assay Ordered By: Dr. Rivas on 01-26-2023 SARS-CoV-2 (COVID-19) Ag IA.rapid Ql (Resp) [facility] Determination of erythrocyte mean corpuscular volume (MCV)Ordered By: Dr. Rivas on 01-26-2023 MCV (RBC) [Entitic vol] 94.8 fL 80-[address] [facility] Hematocrit Auto (Bld) [Volum e fraction]Ordered By: Dr. Rivsa on 01-26-2023 Hematocrit (Bld) [Volume fraction] 34.3 % 40-54 [facility] Laboratory - Chemistry and C hemistry - challengeOrdered By: Dr. Rivas on 01-26-2023 ALP [Catalytic activity/Vol] 219 U/L 45-117 [facility] ALT [Catalytic activity/Vol] 66 U/L 16-61 [facility] CO2 [Moles/Vol] 24.0 mmol/L 21.0-32.0 [facility] Globulin (S) [Mass/Vol] 4.6 g/dL 2.2-4.[address] [facility] Urea nitrogen/Creatinine [Mass ratio] 33.8 mg/mg 10-20 [facility] Laboratory - Hematology and Cell countsOrdered By: Dr. Rivas on 01-26-2023 Erythrocyte distribution width (RBC) [Entitic vol] 47.4 fL 35.1-43.9 [facility] Erythrocyte distribution width (RBC) [Ratio] 13.7 % 11.6-14.6 [facility] MCH (RBC) [Entitic mass] 31.5 pg 27.0-32.0 [facility] MCHC Auto (RBC) [Mass/Vol]Or dered By: Dr. Rivas on 01-26-2023 MCHC (RBC) [Mass/Vol] 33.2 g/dL 32-36 [facility] No Panel InformationOrdered By: Dr. Rivas on 01-26-2023 Estimated Creatinine Clearance Calc 54.10 ml/min [facility] Estimated GFR (MDRD) Amer 98 mL/min >60 [facility] Comment on above: GFR Calc Estimated GFR (MDRD) Non-Af Amer 81 mL/min >60 [facility] Comment on above: Non- GFR Calc Troponin I High Sensitivity 9 pg/mL 3.0-78.0 [facility] Comment on above: Please Note: New Guille t Units and Gender Specific Reference Ranges. For more information see Policy Stat Procedure [place] High Sensitivity Troponin (TNIH) and attachments. Platelets bldOrdered By: Dr. Rivas on 01-26-2023 Platelets (Bld) [#/Vol] 418 10*3/uL 150-450 [facility] Serum or plasma albumin arian urement (mass/volume)Ordered By: Dr. Rivas on 01-26-2023 Albumin [Mass/Vol] 1.6 g/dL 3.2-5.0 [facility] Serum or plasma albumin/glob ulin mass ratioOrdered By: Dr. Rivas on 01-26-2023 Albumin/Globulin [Mass ratio] 0.3 {ratio} 0.9-2.4 [facility] Serum or plasma calcium arian urement (mass/volume)Ordered By: Dr. Rivas on 01-26-2023 Calcium [Mass/Vol] 9.2 mg/dL 8.5-10.1 [facility] Serum or plasma creatinine m easurement (mass/volume)Ordered By: Dr. Rivas on 01-26-2023 Creatinine [Mass/Vol] 0.95 mg/dL 0.70-1.30 [facility] Comment on above: The validity of the calculated GFR & GFRAA in patients over 70 years has not been determined. Clinical correlation is essential. Serum or plasma urea nitroge n measurement (mass/volume)Ordered By: Dr. Rivas on 01-26-2023 Urea nitrogen [Mass/Vol] 32 mg/dL 7-18 [facility] Thin prep Papanicolaou smear with manual screeningOrdered By: Dr. Rivas on 01-26-2023 Thin prep Papanicolaou smear with manual screening 21 U/L 15-37 [facility] Thin prep Papanicolaou smear with manual screening 7 5-15 [facility] Absolute lymphocyte countOrd ered By: Dr. Ngo on 01-18-2023 Lymphocytes Auto (Unsp spec) [#/Vol] 0.65 10*3/uL 0.83-4.51 [facility] Basophil percentageOrdered B y: Dr. Ngo on 01-18-2023 Basophils/100 WBC (Bld) 0.2 % 0-1 [facility] Chloride [Moles/Vol] 105 mmol/L 98-107 [facility] Eosinophils/100 WBC (Bld) 0.1 % 0-5 [facility] Glucose [Mass/Vol] 123 mg/dL 74-106 [facility] Comment on above: Fasting Glucose resu lt from 100 to 125 mg/dL suggests IMPAIRED HOMEOSTASIS per A.D.A. criteria. Neutrophils (Bld) [#/Vol] 14.4 10*3/uL 2.0-7.7 [facility] Neutrophils/100 WBC (Bld) 87.9 % 47-70 [facility] Potassium [Moles/Vol] 3.9 mmol/L 3.5-5.1 [facility] Sodium [Moles/Vol] 137 mmol/L 136-145 [facility] WBC (Bld) [#/Vol] 16.4 10*3/uL 4.4-11.0 [facility] Blood erythrocytes count (nu mber/volume)Ordered By: Dr. Ngo on 01-18-2023 RBC (Bld) [#/Vol] 4.23 10*6/uL 4.6-6.2 [facility] Blood hemoglobin measurement (mass/volume)Ordered By: Dr. Ngo on 01-18-2023 Hemoglobin (Bld) [Mass/Vol] 13.6 g/dL 13.0-16.5 [facility] Blood lymphocytes/100 leukoc ytesOrdered By: Dr. Ngo on 01-18-2023 Lymphocytes/100 WBC (Bld) 4.0 % 19-41 [facility] Blood monocytes/100 leukocyt esOrdered By: Dr. Ngo on 01-18-2023 Monocytes/100 WBC (Bld) 6.5 % 0-[address] [facility] Blood platelet mean volumeOr dered By: Dr. Ngo on 01-18-2023 Platelet mean volume (Bld) [Entitic vol] 9.3 fL 6.2-12.0 [facility] Determination of erythrocyte mean corpuscular volume (MCV)Ordered By: Dr. Ngo on 01-18-2023 MCV (RBC) [Entitic vol] 94.6 fL 80-[address] [facility] Hematocrit Auto (Bld) [Volum e fraction]Ordered By: Dr. Ngo on 01-18-2023 Hematocrit (Bld) [Volume fraction] 40.0 % 40-54 [facility] Laboratory - Chemistry and C hemistry - challengeOrdered By: Dr. Ngo on 01-18-2023 CO2 [Moles/Vol] 25.0 mmol/L 21.0-32.0 [facility] Urea nitrogen/Creatinine [Mass ratio] 31.1 mg/mg 10-20 [facility] Laboratory - Hematology and Cell countsOrdered By: Dr. Ngo on 01-18-2023 Erythrocyte distribution width (RBC) [Entitic vol] 42.3 fL 35.1-43.9 [facility] Erythrocyte distribution width (RBC) [Ratio] 12.1 % 11.6-14.6 [facility] Immature granulocytes/100 WBC (Bld) 1.300 % 0.0-0.9 [facility] Comment on above: IG% - Immature Granu locytes (promyelocytes, myelocytes and metamyelocytes) > 1% indicates that a LEFT SHIFT is Present. MCH (RBC) [Entitic mass] 32.2 pg 27.0-32.0 [facility] Nucleated RBC/100 WBC (Bld) [Ratio] 0 % 0-5 [facility] Auto (RBC) [Mass/Vol]Or dered By: Dr. Ngo on 01-18-2023 MCHC (RBC) [Mass/Vol] 34.0 g/dL 32-36 [facility] No Panel InformationOrdered By: Dr. Ngo on 01-18-2023 D-Dimer Quantitative (PE/DVT) 0.44 FEU/ug/m 0.27-0.49 [facility] Comment on above: NORMAL D-Dimer level (<0.50) indicates no DVT or PE. Estimated Creatinine Clearance Calc 49.90 ml/min [facility] Estimated GFR (MDRD) Amer 89 mL/min >60 [facility] Comment on above: GFR Calc Estimated GFR (MDRD) Non-Af Amer 74 mL/min >60 [facility] Comment on above: Non- GFR Calc Platelets bldOrdered By: Dr. Ngo on 01-18-2023 Platelets (Bld) [#/Vol] 378 10*3/uL 150-450 [facility] Serum or plasma calcium arian urement (mass/volume)Ordered By: Dr. Ngo on 01-18-2023 Calcium [Mass/Vol] 9.2 mg/dL 8.5-10.1 [facility] Serum or plasma creatinine m easurement (mass/volume)Ordered By: Dr. Ngo on 01-18-2023 Creatinine [Mass/Vol] 1.03 mg/dL 0.70-1.30 [facility] Comment on above: The validity of the calculated GFR & GFRAA in patients over 70 years has not been determined. Clinical correlation is essential. Serum or plasma urea nitroge n measurement (mass/volume)Ordered By: Dr. Ngo on 01-18-2023 Urea nitrogen [Mass/Vol] 32 mg/dL 7-18 [facility] Thin prep Papanicolaou smear with manual screeningOrdered By: Dr. 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 Epps is an exceptionally nice 82-year-old male from [facility] presenting with a right heel acral lentiginous melanoma. This is at least 2.5 mm in Breslow depth and there is evidence of residual pigmentation surrounding the biopsy site. The current wound is 2 x 2.5 cm in size. The patient has no clinically palpable lymphadenopathy. The patient's pathology was reviewed and dermatopathology and his case will be presented in multidisciplinary tumor board. The patient was seen by Dr. Souza in medical oncology and had a whole-body PET/CT which did not demonstrate metastatic disease. Surgery 05/07/2021?wide excision right heel melanoma with a 2 cm margin, Integra graft placement, VAC placement. Right inguinal sentinel lymph node biopsy. Pathology?residual melanoma at the right heel with a depth of 1.3 mm. No microsatellitosis. 1 of 2 inguinal sentinel lymph nodes were involved, 0.02 mm deposit with no extracapsular extension. 0/1 popliteal lymph nodes involved Surgery 12/23/2022?right inguinal lymphadenectomy with sartorius flap reconstruction; excision pigmented dermal lesion Pathology?4 of 10 lymph nodes involved with melanoma. Extracapsular extension seen in the largest lesion. The dermal pigmented lesion did not represent in-transit disease [ ] We will present in multidisciplinary cutaneous oncology tumor board. Consideration will be made for adjuvant radiation therapy due to extracapsular extension [ ] I anticipate that I will follow-up the patient in 2 weeks for drain removal. He will keep me updated on the output and if this should be sooner that we will be acceptable. The patient asked very appropriate questions that were answered to the best of my ability with the current information at hand. He knows to call with any questions or concerns that arise in the interim. Chief Complaint Right heel melanoma Right inguinal silvia recurrence History of Present IllnessMr. Epps presented as a 81-year-old male referred by Dr. 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 Due to lack of healing and an [...] site. The patient has not seen a caving guide but denies any other lesions of concern on his lower extremity or elsewhere on his body. Surgery 05/07/2021?wide excision right heel melanoma with a 2 cm margin, Integra graft placement, VAC placement. Right inguinal sentinel lymph node biopsy. Pathology?residual melanoma at the right heel with a depth of 1.3 mm. No microsatellitosis. 1 of 2 inguinal sentinel lymph nodes were involved, 0.02 mm deposit with no extracapsular extension. 0/1 popliteal lymph nodes involved Completed adjuvant Keytruda Surgery 12/23/2022?right inguinal lymphadenectomy with sartorius flap reconstruction; excision pigmented dermal lesion Pathology?4 of 10 lymph nodes involved with melanoma. Extracapsular extension seen in the largest lesion. The dermal pigmented lesion did not represent in-transit disease 01/08/2023?postop visit. The patient is improving in his recovery. His drain output is over 300 mL/day with both drains collecting more than 100/day. He has noticed decreased leg swelling since surgery which may be accounted for by the drain output. His knee is only somewhat bothering him. He was started on doxycycline for redness around his groin last weekend and states that things resolved ROS: The patient has good performance status and is active daily. Cardiac: No chest pain, palpitations or heart attacks Pulmonary: No asthma, bronchitis, or COPD HEENT: right eye vision change GI: No constipation, diarrhea, or bloody bowel movements : No changes in his urinary habits recently Musculoskeletal: Ambulating well. Decreased right lower extremity edema Skin: Heel has healed very well. Multiple no (more content not included)... Normal [employer] 12-25-2022 MAGNESIUM Canceled Normal [facility] Comment on above: Order Comment: TEST MAGNESIUM WAS CANCELLED, 12/25/2022 01:53 Performed By: #### M G ####[id number] [place] [address] RENAL FUNCTION PANELon 12-25 ALBUMIN Canceled Normal [facility] Comment on above: Order Comment: TEST MAGNESIUM WAS CANCELLED, 02/04/2023 07:10 Performed By: #### M G #### [facility] [address] [place] [address] ANION GAP Canceled Normal [facility] Comment on above: Order Comment: TEST MAGNESIUM WAS CANCELLED, 02/04/2023 07:10 Performed By: #### M G #### [facility] [address] [place] [address] BICARBONATE Canceled Normal [facility] Comment on above: Order Comment: TEST MAGNESIUM WAS CANCELLED, 02/04/2023 07:10 Performed By: #### M G #### [facility] [address] [place] [address] CALCIUM Canceled Normal [facility] Comment on above: Order Comment: TEST MAGNESIUM WAS CANCELLED, 02/04/2023 07:10 Performed By: #### M G #### [facility] [id number] [place] [address] CHLORIDE Canceled Normal [facility] Comment on above: Order Comment: TEST MAGNESIUM WAS CANCELLED, 02/04/2023 07:10 Performed By: #### M G #### [facility] [address] [place] [address] CREATININE Canceled Normal [facility] Comment on above: Order Comment: TEST MAGNESIUM WAS CANCELLED, 02/04/2023 07:10 Performed By: #### M G #### [facility] [address] [place] [address] eGFR FEMALE Canceled Normal [facility] Comment on above: Order Comment: TEST MAGNESIUM WAS CANCELLED, 02/04/2023 07:10 Result Comment: CALC ULATIONS OF ESTIMATED GFR ARE PERFORMED USING THE 2020 CKD-EPI STUDY REFIT EQUATION WITHOUT THE RACE VARIABLE FOR THE IDMS-TRACEABLE CREATININE METHODS. https://jasn.asnjournals.org/content/earlyASN.758 2953449 Performed By: #### M G #### [facility] [address] [place] [address] eGFR MALE Canceled Normal [facility] Comment on above: Order Comment: TEST MAGNESIUM WAS CANCELLED, 02/04/2023 07:10 Result Comment: CALC ULATIONS OF ESTIMATED GFR ARE PERFORMED USING THE 2020 CKD-EPI STUDY REFIT EQUATION WITHOUT THE RACE VARIABLE FOR THE IDMS-TRACEABLE CREATININE METHODS. https://jasn.asnjournals.org/content/ASN.184 6900028 Performed By: #### M G #### [facility] [address] [place] [address] GLUCOSE Canceled Normal [facility] Comment on above: Order Comment: TEST MAGNESIUM WAS CANCELLED, 02/04/2023 07:10 Performed By: #### M G #### [facility] [address] [place] [address] PHOSPHORUS Canceled Normal [facility] Comment on above: Order Comment: TEST MAGNESIUM WAS CANCELLED, 02/04/2023 07:10 Result Comment: The performance characteristics of phosphorus testing in heparinized plasma have been validated by the individual laboratory site where testing is performed. Testing on heparinized plasma is not approved by the FDA; however, such approval is not necessary. Performed By: #### M G #### [facility] [address] [place] [address] POTASSIUM Canceled Normal [facility] Comment on above: Order Comment: TEST MAGNESIUM WAS CANCELLED, 02/04/2023 07:10 Performed By: #### M G #### [facility] [address] [place] [address] SODIUM Canceled Normal [facility] Comment on above: Order Comment: TEST MAGNESIUM WAS CANCELLED, 02/04/2023 07:10 Performed By: #### M G #### [facility] [address] [place] [address] UREA NITROGEN Canceled Normal [facility] Comment on above: Order Comment: TEST MAGNESIUM WAS CANCELLED, 02/04/2023 07:10 Performed By: #### M G #### [facility] [address] [place] [address] CBCon 12-24-2022 Erythrocyte distribution width (RBC) [Ratio] 12.3 % Normal 11.5 - 14.5 [facility] Comment on above: Performed By: #### C BC ####[id number] [place] [address] Hematocrit (Bld) [Volume fraction] 35.2 % Low 41.0 - 52.0 [facility] Comment on above: Performed By: #### C BC ####[id number] [place] [address] Hemoglobin (Bld) [Mass/Vol] 11.8 g/dL Low 13.5 - 17.5 [facility] Comment on above: Performed By: #### C BC ####[id number] [place] [address] MCHC (RBC) [Mass/Vol] 33.5 g/dL Normal 32.0 - 36.0 [facility] Comment on above: Performed By: #### C BC ####[id number] [place] [address] MCV (RBC) [Entitic vol] 94 fL Normal 80 - 100 U [facility] Comment on above: Performed By: #### C BC ####[id number] [place] [address] NUCLEATED RBC 0.0 /100 WBC Normal 0.0-0.0 [facility] Comment on above: Performed By: #### C BC ####[id number] [place] [address] Platelets (Bld) [#/Vol] 240 10*3/uL Normal 150 - 450 [facility] Comment on above: Performed By: #### C BC ####[id number] [place] [address] RBC 3.73 x10E12/L Low 4.50 - 5.90 [facility] Comment on above: Performed By: #### C BC ####[id number] [place] [address] WBC (Bld) [#/Vol] 6.7 10*3/uL Normal 4.4 - 11.3 [facility] Comment on above: Performed By: #### C BC ####[id number] [place] [address] Clinical Event Note-Post op checkon 12-24-2022 Clinical Event Note-Post op check Clinical Event: Clinical Event Note: TopicPost op check Details Patient laying in bed comfortably. Denies nausea, vomiting, and shortness of breath. Focused physical exam: Gen: Lying supine in bed, no acute distress Pulm: Nonlabored respirations on 2L NC Ext: Moves arms without assistance, R groin incision soft, covered with dermabond, no signs of bleeding, two FARNAZ drains in place with minimal sanguinous output A/P: POD 0 s/p right inguinal lymph node dissection and sartorius flap. Recuperating well on regular nursing floor. No changes to plan. Donna Churchill MD General Surgery, PGY-1 Objective Information T [id number] [id number]/5094% Date/Time12/24 1:5312/24 1:5312/24 1:5312/24 1:5312/24 1:53 Range(36.6C - 37.2C ) (79 - 83 ) (18 - 18 ) (96 - 133 )/ (50 - 84 ) (94% - 95% ) Highest temp of 37.2 C was recorded at 12/24 1:53 Electronic Signatures: Donna Churchill (Resident)) (Signed 24-Dec-2022 02:41) Authored: Clinical Event Note Last Updated: 24-Dec-2022 02:41 by Donna Churchill (Resident)) Normal [facility] Discharge [id number] Discharge Profile2 Discharge Orders: Anticipated Discharge Date: Anticipated Discharge [id number] Problem List: Additional Dx: Malignant melanoma of right heel: Catalog Name: Malignant melanoma of right lower limb, including hip Significant Events: Surgical Procedure: Clinical Events This Visit, 23-Dec-2022, Right inguinal lymph node dissection and sartorius flap Hospital Providers: Provider RoleProvider Name Hussein Roland Eric A DNAR: Code Status at Discharge: Full Code Activity: activity as tolerated. May shower. Wednesday. May not return to school/work Instructions: May not drive while taking narcotics. No pushing, pulling, or lifting objects greater than 10 pounds. Other activity instructions: Lymphedema exercises 3x day. Diet: Dietresume normal diet Wound Care 1: Wound Sitegroin Wound Typesurgical incision Cleanse Withsoap and water Instructionsno lotions, creams, or tub soaks Other InstructionsYou have surgical glue over your incision. You may shower and use soap and water over your incision. Pat dry. The surgical glue with slowly dissolve and fall away. Drain/Tube Care 1: TypeJP (Donavan Dawkins) Sitegroin Suctioncontinuous self Cleanse Withsoap and water Dress [id number] gauze dressing Other InstructionsTo empty the drain, open the cap, tip into cup and squeeze to empty. Squeeze drain flat then replace the cap. Please empty the drain and record its output _3_ times a day and bring these numbers to your follow up appointment. The drain output should decrease and the color of the drainage should become lead generator (red to pink to yellow). This drain [...] redness/drainage around insertion site. Additional Orders: Additional Instructions Please send Dr. Bennett images of drains and wound on Wednesday12/26/2022 to determine resumption of Eliquis. Call Provider If (Homegoing Patients): Any new concerning symptoms. - fever >102/chills - increased pain not relieved with medication - redness/drainage from incision(s) or drain insertion site(s) - drastic change in drain output/bloody drain output - numbness/tingling/swelli ng of affected leg. 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 Bennett on 12/23. Transferred to [facility] post-op. Post-op course uncomplicated. Diet advanced as tolerated. Surgical drains remained in place upon discharge. [facility] POD #1. Home Care Orders: Face to Face Certification: Home Care Services Needed: yes Home Care Agency: Other (with phone number) [facility] Provider to Follow After Discharge: Primary Surgeon Skilled Disciplines Ordered: RN/EXTENSION CLERK Face to Face Encounter Completed: yes Date of Encounter: 24-Dec-2022 Medical Necessity for Homecare (based on clinical findings): Short-term nursing care needed for incision/drain care; Physical therapy needed to restore pt to previous level of functioning s/p ILND Homebound Status: homebound Homebound Due to:: Pt is temporarily homebound s/p ILND Face to Face Completed and Home Care Orders Reviewed: I certify that this patient is under my care. I have reviewed the information included in the face to face and certify that the home care services ordered are medically necessary for this patient. Home Care Services: Home Care Skilled Serviceassessment, drain care, follow up teaching, Rehab (PT/OT/SP eval and treat), wound care Assessment: [facility] Visit[facility] after discharge Drain Care: [facility] Visit[facility] after discharge Teaching: [facility] Visitday after discharge Rehab: [facility] Visit[facility] after discharge Wound Care: [facility] Visit[facility] after discharge Provider FINAL REVIEW of Orders: Final Review: Final Review of Medication Reconciliation and Orders Completedby Physician Reviewing Heidy Álvarez MD (Resident) at 24-Dec-2022 11:24:25 Appointments: Follow-Up Appointment 01: Physician/Dept/Fan Bennett Reason for Referralpost-op appointment Call to Schedule in2 weeks Phon (more content not included)... Normal [facility] - Hematology and Cell countson 12-24-2022 Erythrocyte distribution width (RBC) [Ratio] 12.3 % See Below [facility] Work Phone: Comment on above: Reference Range: 11. 5 - 14.5 Hematocrit (Bld) [Volume fraction] 35.2 % below low threshold See Below [facility] Work Phone: [phone] Comment on above: Reference Range: 41. 0 - 52.0 Hemoglobin (Bld) [Mass/Vol] 11.8 g/dL below low threshold See Below [facility] Work Phone: Comment on above: Reference Range: 13. 5 - 17.5 MCHC (RBC) [Mass/Vol] 33.5 g/dL See Below [facility] Work Phone: Comment on above: Reference Range: 32. 0 - 36.0 MCV (RBC) [Entitic vol] 94 fL 80 - 100 M [facility] Work Phone: [phone] Platelets (Bld) [#/Vol] 240 10*3/uL 150 - 450 [facility] Work Phone: [phone] RBC (Bld) [#/Vol] 3.73 {x10E12/L} below low threshold See Below [facility] Work Phone: Comment on above: Reference Range: 4.5 0 - 5.90 WBC (Bld) [#/Vol] 6.7 10*3/uL 4.4 - 11.3 [facility] Work Phone: No Panel Informationon 12-24 0.0 {/100_WBC} 0.0-0.0 [facility] Work Phone: Order Reconciliationon 12-24 Order Reconciliation Page 1 Discharge Reconciliation Document Reconciliation Type: Discharge requested on behalf of Aspen Benton (Advanced Practice Nurse) done by Aspen Benton (CONSTRUCTION CHECKER-[facility]) Discharge - Reconciliation: 24-Dec-2022 10:07 by: Aspen Benton (CONSTRUCTION CHECKER-[facility]) Home Medications EnteredHOME MEDICATIONS AT DISCHARGE DateReconciliation Comment/ Additional Information acetaminophen 325 mg oral tablet 2 tab(s) orally every 6 hours 26-May-2021 10:20 Discontinued; Discontinue from ORM acetaminophen 325 mg oral tablet is not required alfuzosin 10 mg oral tablet, extended release 1 tab(s) orally once a day 24-Dec-2022 09:57 alfuzosin 10 mg oral tablet, extended release 1 tab(s) orally once a day 24-Dec-2022 09:57 alfuzosin 10 mg oral tablet, extended release is continued as alfuzosin 10 mg oral tablet, extended release amLODIPine 5 mg oral tablet 1 tab(s) orally once a day 23-Dec-2022 15:09 amLODIPine 5 mg oral tablet 1 tab(s) orally once a day 23-Dec-2022 15:09 amLODIPine 5 mg oral tablet is continued as amLODIPine 5 mg oral tablet apixaban 5 mg oral tablet 1 tab(s) orally 2 times a day 24-Dec-2022 09:54 apixaban 5 mg oral tablet 1 tab(s) orally 2 times a day, RESTART 12/31/22 Discontinued; Copy/Discontinue apixaban 5 mg oral tablet is continued and modified calcium (as carbonate) 600 mg oral tablet 1 tab(s) orally once a day 24-Dec-2022 09:58 calcium (as carbonate) 600 mg oral tablet 1 tab(s) orally once a day 24-Dec-2022 09:58 calcium (as carbonate) 600 mg oral tablet is continued as calcium (as carbonate) 600 mg oral tablet glucosamine 1000 mg oral capsule 2 cap(s) orally once a day 24-Dec-2022 09:55 glucosamine 1000 mg oral capsule 2 cap(s) orally once a day 24-Dec-2022 09:55 glucosamine 1000 mg oral capsule is continued as glucosamine 1000 mg oral capsule levothyroxine 112 mcg (0.112 mg) oral tablet 1 tab(s) orally once a day 24-Dec-2022 09:56 levothyroxine 112 mcg (0.112 mg) oral tablet 1 tab(s) orally once a day 24-Dec-2022 09:56 levothyroxine 112 mcg (0.112 mg) oral tablet is continued as levothyroxine 112 mcg (0.112 mg) oral tablet Metoprolol Tartrate 25 mg oral tablet 1 tab(s) orally 2 times a day 24-Dec-2022 09:58 Metoprolol Tartrate 25 mg oral tablet 1 tab(s) orally 2 times a day 24-Dec-2022 09:58 Metoprolol Tartrate 25 mg oral tablet is continued as Metoprolol Tartrate 25 mg oral tablet multivitamin 1 tab(s) orally once a day 24-Dec-2022 09:56 multivitamin 1 tab(s) orally once a day 24-Dec-2022 09:56 multivitamin is continued as multivitamin NAC 600 mg oral capsule 1 cap(s) orally 2 times a day 24-Dec-2022 09:59 NAC 600 mg oral capsule 1 cap(s) orally 2 times a day 24-Dec-2022 09:59 NAC 600 mg oral capsule is continued as NAC 600 mg oral capsule omeprazole 40 mg oral delayed release capsule 1 cap(s) orally once a day 07-May-2021 06:25 omeprazole 40 mg oral delayed release capsule 1 cap(s) orally once a day 07-May-2021 06:25 omeprazole 40 mg oral delayed release capsule is continued as omeprazole 40 mg oral delayed release capsule Vitamin D3 25 mcg (1000 intl units) oral tablet 1 tab(s) orally once a day 24-Dec-2022 09:59 Vitamin D3 25 mcg (1000 intl units) oral tablet 1 tab(s) orally once a day 24-Dec-2022 09:59 Vitamin D3 25 mcg (1000 intl units) oral tablet is continued as Vitamin D3 25 mcg (1000 intl units) oral tablet Zinc 140 mg (as elemental zinc 50 mg) oral tablet 1 tab(s) orally once a day 24-Dec-2022 09:57 Zinc 140 mg (as elemental zinc 50 mg) oral tablet 1 tab(s) orally once a day 24-Dec-2022 09:57 Zinc 140 mg (as elemental zinc 50 mg) oral tablet is continued as Zinc 140 mg (as elemental zinc 50 mg) oral tablet Current OrdersDateHOME MEDICATIONS AT DISCHARGE DateReconciliation Comment/ Additional Information Acetaminophen Tablet (TYLENOL)DOSE = 650 mg Oral Every 6 Hours 23-Dec-2022 18:06 acetaminophen 325 mg oral tablet 2 tab(s) orally every 6 hours 24-Dec-2022 10:04 Acetaminophen is continued as acetaminophen 325 mg oral tablet amLODIPine (NORVASC) TabletDOSE = 5 mg Oral Daily 23-Dec-2022 18:06 amLODIPine (NORVASC) is not required Ondansetron Injectable (ZOFRAN)DOSE = 4 mg IntraVenous Push Every 6 Hours, PRN Nausea 23-Dec-2022 18:06 Ondansetron Injectable is not required oxyCODONE Immediate Release Tablet (OXYIR, ROXICODONE)DOSE = 5 mg Oral Every 4 Hours, PRN Pain - Severe (7-10) 24-Dec-2022 09:44 oxyCODONE Immediate Release is not required Pantoprazole Enteric Coated Tablet (PROTONIX)DOSE = 40 mg Oral At BedtimeClinician Notes: For patients with pre-op history of GERD 23-Dec-2022 18:06 Pantoprazole is not required traMADol Tablet (ULTRAM)DOSE = 50 mg Oral Every 6 Hours, PRN Pain - Mod (4-6) 24-Dec-2022 09:44 traMADol is not required Home Medications Added During Discharge Reconciliation traMADol 50 mg oral tablet 1 tab(s) orally every 4 to 6 hours x 7 days, As Needed -for pain , Dx: G89.18 All Active Home Medications at t (more content not included)... Normal [facility] PT Evaluation v2-individual therapyon 12-24-2022 PT Evaluation v2-individual therapy Rehab: Info: Mode of Treatmentindividual therapy; physical therapy Time IN11:29 Time OUT11:48 Total Treatment [id number] Patient in ... at end of sessionPatient met standing in room at start of session and requests to remain standing at end of session. Patient's daughter present in room. RN notified of this. Communicated with ... at end of sessionbedside nurse Patient Effortexcellent Symptoms Noted During/After Treatmentnone Patient Profile Reviewedyes Onset of Illness/Injury or Date of [id number] Reason for ReferralR inguinal lymph node metastatic melanoma s/p lymph node dissection, sartorius flap reconstruction, excision of skin lesion. Patient/Family/Caregiver Comments/ObservationsPat ient denies history of falling. Patient received PT services previously for BPPV in the outpatient setting. Patient denies ongoing issues related to vertigo/dizziness. General Observations of PatientRN cleared. Patient met standing in room at start of session, alert and agreeable to PT services. Pertinent History of Current Functional ProblemPMH: R heel acral lentiginous melanoma s/p excision, VAC Placement, and R inguinal/R popliteal sentinel lymph node biopsy c/b R groin infection requiring drain placement, HTN, GERD, afib on Eliquis Hearing Precautions/LimitationsW FL Precautions/Limitationsn o known precautions/limitations Ambulation Skills - Previous Level of Functionindependent community ambulator front wheeled walker at home, single point cane in community due to R knee pain Transfer Skills - Previous Level of Functionindependent ADL Skills - Previous Level of Functionindependent Work/Leisure Activity - Previous Level of Functionindependent; 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, 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 Living Arrangementscondominium; single level Lives Withalone Home Accessibilitystairs to enter home; Walk-in shower; first floor set up available Number of Stairs to Enter Home0 Type of Equipment Currently In the Homestraight cane; rolling walker Line and TubesIV Pre Treatment Patient Positionstanding Pre Treatment Heart Rate (beats/min)89 Pre Treatment SpO2 (%)95 % During Treatment Patient Positionstanding During Treatment Heart Rate (beats/min)94 During Treatment SpO2 (%)95 % During Treatment Oxygen Deliveryroom air Post Treatment Patient Positionstanding Post Treatment Heart Rate (beats/min)87 Post Treatment SpO2 (%)95 % Post Treatment Oxygen Deliveryroom air Vision/Cognition: Affect/Mental Status (Cognitive)WNL Orientation Status (Cognition)oriented x 4 Cognitive Function (Cognitive)WNL ROM: Lower Extremity: Range of MotionRLE: Hip flexion/adduction limited by pain at surgical site. WFL otherwise. LLE: WFL MMT: Lower Extremity: Manual Muscle Testing (MMT)BLE at least 3+/5 based on observed mobility. Mobility/Tone: Comment, Bed MobilityPatient standing in room at start and end of session. Transfer Assessment/Interventions sit to stand transfer; stand to sit transfer Comment, TransfersPatient performs safely without assistive device or use of BUE. Sit-Stand [place] (Transfers)independent Stand-Sit [place] (Transfers)independent Gait/Stairs Locomotiongait/ambulatio n assistive device; distance ambulated; gait deviations; gait/ambulation independence Gait Locomotion (Gait)modified independence Assistive Device (Gait Training)First with single UE support of IV pole, then with front wheeled walker Distance in Feet (Gait Training)200 ft Gait Deviations Identified (Gait)antalgic; decreased joao; decreased step length; decreased stride length; decreased weight-shifting ability; With single UE support of IV pole: R step length significantly decreased. With front wheeled walker: Overall stability improves, R step length increases, and joao/gait speed increase. Impairments Impacting Function (Mobility)pain; range of motion Motor: Sitting, Static (Balance)normal balance Sitting, Dynamic (Balance)normal balance [id number]-vx-[id number] (Balance)normal balance Patient able to stand with eyes open and closed without sway or loss of balance, with feet in both narrow and wide positions. Standing, Static (Balance)MOD I Standing, Dynamic (Balance)MOD I Systems Impairment Contributing to Balance Disturbance (Balance)somatosensory; musculoskeletal Identified Impairments Contributing to Balance Disturbance (Balance)pain; ROM (range of motion) decreased Sitting Balancesteady and safe Arising from Chairable without using arms Attempts to Ariseable on first try Immediate Standing Balance (first 5 seconds)steady without walker or support Standing Balancenarrow BERE without support Sternal Nudge with Narrow Base of Supportsteady Eyes Closed, with Narrow Base of Supportsteady Turning 360 Degreescontinuous, steady Sitting Downsafe and smooth Tinetti Balance Score16 Gait Initiationno hesitancy Step LengthL swing foot passes R stance leg R swing foot passes L s (more content not included)... Normal [facility] No Panel Informationon 12-23 [facility] Work Phone: Order Reconciliationon 12-23 Order Reconciliation Page 1 Admission Reconciliation Document Reconciliation Type: Admission from OR requested on behalf of Lakhwinder Sharif (Resident) done by Lakhwinder Sharif ( (Resident)) Admission from OR - Reconciliation: 23-Dec-2022 18:06 by: Lakhwinder Sharif ( (Resident)) Home MedicationsEnteredLast Dose TakenReconciled with current Order Reconciliation Comment/ Additional Information acetaminophen 325 mg oral tablet 2 tab(s) orally every 6 [id number] Reviewed and Held amLODIPine 5 mg oral tablet 1 tab(s) orally once a [id number] 3 AM amLODIPine (NORVASC) TabletDOSE = 5 mg Oral DailyamLODIPine 5 mg oral tablet continued as the inpatient order amLODIPine (NORVASC) Eliquis 5 mg oral tablet 1 tab(s) orally once a [id number] 3 Reviewed and Held fexofenadine 180 mg oral tablet 1 tab(s) orally once a [id number]-Dec-2022 AM Reviewed and Held glucosamine 500 mg oral capsule 1 cap(s) orally 2 times a [id number]-Dec-2022 Reviewed and Held levothyroxine 25 mcg (0.025 mg) oral capsule 1 cap(s) orally once a day AM Reviewed and Held multivitamin Reviewed and Held omeprazole 40 mg oral delayed release capsule 1 cap(s) orally once a day [id number] AM Reviewed and Held Zinc 50 milligram(s) [id number]- 2023 AM Reviewed and Held Documentation of outpatient medication history is incomplete. Additional Current Orders Acetaminophen Tablet (TYLENOL)DOSE = 650 mg Oral Every 6 Hours Admit to Inpatient Adult Admitting Diagnosis, C43.71 Malignant melanoma of right heel, Attending Provider: Hussein Bennett Specific Service Requested, Surgical Oncology Level of Care, Med/Surg Ambulate T, Routine, 5 Times a Day, Assistance Level: First time with RN, Restrictions: None, In hallways Call Physician For: BP, diastolic Greater Than 100mmHg Call Physician For: BP, systolic Less Than 80mmHg Greater Than 170mmHg Call Physician For: heart rate Less Than 60 bpm Greater Than 100 bpm Call Physician For: Increase in baseline pain not brought on by activity in duration of 4 hours or greater Call Physician For: pulse-ox Less Than 92% Call Physician For: Respiratory rate Less Than 10 breaths per minute Greater Than 30 breaths per minute Call Physician For: Saturated dressings or purulent drainage Call Physician For: urine output Less Than 250 mL Over 8 hours Chewing Gum OnceInstruct patient to chew gum three times per day. Have patient chew gum for 1 hour. Complete Blood Count ConditionalOrder Lab to Collect - STATLavender EDTA Complete Blood Count Lab to Collect - 1st AM DrawLavender EDTA Clinician Instructions: Post Op Day 1 Compression Device, Sequential Convert IV to Heparin Lock When Taking Oral Fluids Well Once Culture, Blood ConditionalOrder Lab to Collect - STATAEROBIC (Mint or Blue capped) blood culture vial AND Anaerobic (Maroon capped) blood culture vials.-Separate sites for each set of cultures. Clean venipuncture site with alcohol then antiseptic prep. Clean top of culture bottle with Alcohol wipe. Send to microbiology lab immediately at Ambient temperature. Clinician Instructions: 1 of 2 Culture, Blood ConditionalOrder Lab to Collect - STATAEROBIC (Mint or Blue capped) blood culture vial AND Anaerobic (Maroon capped) blood culture vials.-Separate sites for each set of cultures. Clean venipuncture site with alcohol then antiseptic prep. Clean top of culture bottle with Alcohol wipe. Send to microbiology lab immediately at Ambient temperature. Clinician Instructions: 2 of 2 Diet Regular DVT Risk Assessment Complete DVT Risk Score: 5 Highest Risk DVT Risk Factors:Age over 75 years (3), Current Major Surgery > 45 min (2) Education, Incentive Spirometry Electrocardiogram 12 Lead RoutineClinical Indications: ACS SymptomsNotify MD if performed Enoxaparin SubCutaneous (LOVENOX)DOSE = 40 mg SubCutaneous Every 24 Hours Ensure Surgery 3 Times a Day RoutineSpecial Instructions: Drink 3 cartons daily for 5 days. Nutrition services please send 15 cartons ONE TIME only. HYDROmorphone Injectable (DILAUDID)DOSE = 0.2 mg IntraVenous Push Every 2 Hours, PRN Breakthrough pain only HYDROmorphone Injectable (DILAUDID)DOSE = 0.2 mg IntraVenous Push Every 5 Minutes, PRN Pain - Mod (4-6) (PACU) if unable to take oralClinician Notes: Cee-operative order ONLYMax total of 4 mg regardless of dose. HYDROmorphone Injectable (DILAUDID)DOSE = 0.4 mg IntraVenous Push Every 5 Minutes, PRN Pain - Severe (7-10) (PACU)Clinician Notes: Cee-operative order ONLYMax total of 4 mg regardless of dose. Incentive Spirometry Q1H, While Awake Intake & Output Lactate, Level ConditionalOrder Lab to Collect - STATGrey Sodium Fluoride-Draw without stasis and immediately send tube on ice to laboratory Lactated Ringers Infusion IV Bag Volume = 1,000 mL Run at: 100 mL/hr IntraVenous Clinicia (more content not included)... Normal [facility] Surgical Pathology Depar tmenton 12-23-2022 [facility] Surgical Pathology Department Name EMPERATRIZ EPPS Pathologist: DONNA MONTEIRO MD, Board Certified Dermatopathologist Date of Procedure: 12/23/2022 Date Received: 12/23/2022 Date Reported 01/08/2023 Submitting Physician: HUSSEIN BENNETT [place] [facility] [place] External # FINAL DIAGNOSIS A. SKIN, RIGHT LATERAL SKIN LESION? IN TRANSIT, EXCISION: -- FOCAL DERMAL MELANIN PIGMENT WITH FIBROSIS, LYMPHOHISTIOCYTIC INFLAMMATION AND POLARIZABLE FOREIGN MATERIAL, SEE COMMENT COMMENT: Multiple deeper levels and a SOX10 immunostain with adequate controls were reviewed. There is a narrow column of dermal fibrosis with lymphohistiocytic inflammation including focal melanophages and foreign body giant cells with focal polarizable foreign material extending to a cauterized resection margin. Focal perivascular melanophages are present within cauterized skeletal muscle. No melanocytes are seen with SOX10. The findings are favored to be procedural and/or trauma-related. While considered less likely, completely regressed metastatic melanoma cannot be entirely excluded. B. RIGHT INGUINAL CONTENTS, EXCISION: -- METASTATIC MELANOMA INVOLVING AT LEAST FOUR OF TEN LYMPH NODES (4/10), SEE COMMENT -- EXTRACAPSULAR EXTENSION PRESENT COMMENT: Routine and immunostained sections including Melan-A, SOX10 and HMB45 with adequate controls were reviewed. The grossly largest lymph node (4.5 cm in greatest dimension) is almost entirely replaced by metastatic melanoma with extracapsular extension and biopsy site changes, and while counted as one positive lymph node, the possibility of multiple matted lymph nodes cannot be entirely excluded. An isolated subcapsular [id number] cell is identified in one additional lymph node (block A7); however, as this finding is not seen on H AND E, Melan-A and repeat SOX10 stains, it is of uncertain clinical significance and not counted as a positive lymph node. Belt Machine Operator: Dr. Ulises Roque Electronically Signed Out By DONNA MONTEIRO MD, Board Certified Dermatopathologist/CHENG By the signature on this report, the individual or group listed as making the Final Interpretation/Diagnosis certifies that they have reviewed this case. Diagnostic interpretation performed at [address] [facility] [address] Clinical History: Physician Contact Number: [phone] Fixative (A): Formalin Clinical Diagnosis History: MELANOMA Specimens Submitted As: A: RIGHT LATERAL SKIN LESION? IN TRANSIT B: RIGHT INGUINAL CONTENTS Gross Description: A: Received in formalin, labeled with the patient's name and hospital number and Right lateral skin lesion in-transit, is a unoriented elliptical segment of skin with a scant amount of subcutaneous tissue measuring 1.6 x 0.5 excised to a depth of 0.5 cm. The skin surface is lightly pigmented, wrinkled and grossly unremarkable. The resection margin is inked blue. The specimen is serially sectioned and entirely submitted in 2 cassettes. MJR. B: Received in formalin, labeled with the patient's name and hospital number and A right inguinal contents, is an unoriented lobulated segment of adipose tissue measuring 15.0 x 10.1 x 3.1 cm. The specimen is surfaced by an unremarkable ellipse of lightly pigmented skin measuring 3.9 x 1.2 cm. Palpation and dissection of the adipose tissue reveals multiple possible lymph nodes ranging in size from 0.2-4.5 cm in greatest dimension. Caisson Worker sections are submitted 16 cassettes. MJR Summary of Cassettes: Specimen Label Site A 1 tips 2 body of specimen B 1 4 possible intact lymph nodes 2 4 possible intact lymph nodes 3 1 possible lymph node, serially sectioned 4 1 possible lymph node trisected 5 1 possible lymph node, serially sectioned 6 1 possible lymph node, serially sectioned 7 1 possible lymph node, serially sectioned 8 1 possible lymph node, serially sectioned 9-12 1 possible lymph node, serially sectioned 13-15 screening representative sections of largest possible lymph node 16 screening representative section of unoriented skin ellipse r/12/31/2022 The assays/tests were performed with appropriate positive and negative controls which stained appropriately. [facility] Department of Pathology [address] [place] [address] Normal [facility] Comment on above: Performed By: #### R ENAL #### [facility] [address] [place] [address] URINALYSISon 12-23-2022 Appearance (U) CLEAR Normal CLEAR [facility] [place] Comment on above: Performed By: #### U A ####[id number] [place] [address] Bilirubin Ql (U) Negative Normal NEGATIVE [facility] [place] Comment on above: Performed By: #### U A ####[id number] [place] [address] Hemoglobin Ql (U) Negative Normal NEGATIVE [facility] Comment on above: Performed By: #### U A ####[id number] [place] [address] Nitrite Ql (U) Negative Normal NEGATIVE [facility] [place] Comment on above: Performed By: #### U A ####[id number] [place] [address] Protein Ql (U) Negative Normal NEGATIVE [facility] [place] Comment on above: Performed By: #### U A ####[id number] [place] [address] Specific gravity (U) [Rel density] 1.023 Normal 1.005 - 1.035 [facility] Comment on above: Performed By: #### U A ####[id number] [place] [address] Urobilinogen (U) [Mass/Vol] mg/dL Normal 0.0 - 1.9 [facility] Comment on above: Performed By: #### U A ####[id number] [place] [address] Urinalysison 12-23-2022 Color (U) YELLOW Normal STRAW,YELL OW HK-Opwgtgp-T [facility] Work Phone: Comment on above: Reference Range: STR AW,YELLOW Performed By: #### U A ####[id number] [place] [address] Glucose Ql (U) Negative Normal NEGATIVE MG-Surgery -S [facility] Work Phone: Comment on above: Performed By: #### U A ####[id number] [place] [address] Ketones Ql (U) 5 (TRACE) Abnormal NEGATIVE MG-Surgery S [facility] Work Phone: Comment on above: Performed By: #### U A ####[id number] [place] [address] Leukocyte esterase Test strip Ql (U) Negative Normal NEGATIVE DG-Wuiejzk-R [facility] Work Phone: Comment on above: Performed By: #### U A ####[id number] [place] [address] pH (U) 5.0 [pH] Normal 5.0 - 8.0 WV-Csoyiyx-V [facility] Work Phone: Comment on above: Performed By: #### U A ####[id number] [place] [address] Protein (U) [Mass/Vol] Negative NEGATIVE MG -SurgeryS [facility] Work Phone: RBC (U) [#/Vol] Negative NEGATIVE MG-Surger y-S [facility] Work Phone: Specific gravity (U) [Rel density] 1.023 1 See Below GG-Eqqdsux-J [facility] Work Phone: Comment on above: Reference Range: 1.0 05 - 1.035 Urinalysis Negative NEGATIVE TT-Uaizbaf-P [facility] Work Phone: Urinalysis <2.0 0.0 - 1.9 CH-Bezntuu-Y [facility] Work Phone: Urinalysis CLEAR CLEAR CC-Ltmgkyb-G [facility] Work Phone: Laboratory - Microbiology an d Antimicrobial susceptibilityOrdered By: Anurag Dolan on 12-21-2022 SARS-CoV-2 (COVID-19) RNA KACIE+probe Ql (Unsp spec) Not detected Not Detect [facility] Comment on above: Normal Reference Ran ge: Not DetectedMethod:(RT-PCR) real-time reverse transcriptase PCRLuminex ISABEL Instrument*The Food and Drug Administration (FDA) has issued an Emergency Use Authorization (EAU) for the ISABEL SARS-CoV-2 Assay for the rapid detection of the virus that causes COVID-19. This test has been validated, but the FDAs independent review of this validation is pending.*Negative results do not preclude infection and should not be used as the sole basis for treatment or patient management. Optimum specimen types and timing for peak viral levels during infections caused by SARS-CoV-2 have not been determined. Collection of multiple specimens from the same patient may be necessary to detect the virus. The possibility of a false negative result should be considered if the patient has clinical presentation or has had recent exposure. Basophil percentageOrdered B y: Dr. Bennett on 12-14-2022 Chloride [Moles/Vol] 106 mmol/L 98-107 [facility] Glucose [Mass/Vol] 94 mg/dL 74-106 [facility] Potassium [Moles/Vol] 4.2 mmol/L 3.5-5.1 [facility] Sodium [Moles/Vol] 139 mmol/L 136-145 [facility] WBC (Bld) [#/Vol] 6.0 10*3/uL 4.4-11.0 [facility] Blood erythrocytes count (nu mber/volume)Ordered By: Dr. Bennett on 12-14-2022 RBC (Bld) [#/Vol] 4.25 10*6/uL 4.6-6.2 [facility] Blood hemoglobin measurement (mass/volume)Ordered By: Dr. Bennett on 12-14-2022 Hemoglobin (Bld) [Mass/Vol] 13.4 g/dL 13.0-16.5 [facility] Blood platelet mean volumeOr dered By: Dr. Bennett on 12-14-2022 Platelet mean volume (Bld) [Entitic vol] 9.5 fL 6.2-12.0 [facility] Determination of erythrocyte mean corpuscular volume (MCV)Ordered By: Dr. Bennett on 12-14-2022 MCV (RBC) [Entitic vol] 93.9 fL 80-[address] [facility] Hematocrit Auto (Bld) [Volum e fraction]Ordered By: Dr. Bennett on 12-14-2022 Hematocrit (Bld) [Volume fraction] 39.9 % 40-54 [facility] Laboratory - Chemistry and C hemistry - challengeOrdered By: Dr. Bennett on 12-14-2022 CO2 [Moles/Vol] 26.0 mmol/L 21.0-32.0 [facility] Urea nitrogen/Creatinine [Mass ratio] 21.8 mg/mg 10-20 [facility] Laboratory - Hematology and Cell countsOrdered By: Dr. Bennett on 12-14-2022 Erythrocyte distribution width (RBC) [Entitic vol] 42.8 fL 35.1-43.9 [facility] Erythrocyte distribution width (RBC) [Ratio] 12.4 % 11.6-14.6 [facility] MCH (RBC) [Entitic mass] 31.5 pg 27.0-32.0 [facility] MCHC Auto (RBC) [Mass/Vol]Or dered By: Dr. Bennett on 12-14-2022 MCHC (RBC) [Mass/Vol] 33.6 g/dL 32-36 [facility] No Panel InformationOrdered By: Dr. Bennett on 12-14-2022 Estimated GFR (MDRD) Amer 72 mL/min >60 [facility] Comment on above: GFR Calc Estimated GFR (MDRD) Non-Af Amer 59 mL/min >60 [facility] Comment on above: Non- GFR Calc Platelets bldOrdered By: Dr. Bennett on 12-14-2022 Platelets (Bld) [#/Vol] 250 10*3/uL 150-450 [facility] Serum or plasma calcium arian urement (mass/volume)Ordered By: Dr. Bennett on 12-14-2022 Calcium [Mass/Vol] 9.0 mg/dL 8.5-10.1 [facility] Serum or plasma creatinine m easurement (mass/volume)Ordered By: Dr. Bennett on 12-14-2022 Creatinine [Mass/Vol] 1.24 mg/dL 0.70-1.30 [facility] Comment on above: The validity of the calculated GFR & GFRAA in patients over 70 years has not been determined. Clinical correlation is essential. Serum or plasma urea nitroge n measurement (mass/volume)Ordered By: Dr. Bennett on 12-14-2022 Urea nitrogen [Mass/Vol] 27 mg/dL 7-18 [facility] Thin prep Papanicolaou smear with manual screeningOrdered By: Dr. 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 Epps is an exceptionally nice 82-year-old male from [facility] presenting with a right heel acral lentiginous melanoma. This is at least 2.5 mm in Breslow depth and there is evidence of residual pigmentation surrounding the biopsy site. The current wound is 2 x 2.5 cm in size. The patient has no clinically palpable lymphadenopathy. The patient's pathology was reviewed and dermatopathology and his case will be presented in multidisciplinary tumor board. The patient was seen by Dr. Souza in medical oncology and had a whole-body PET/CT which did not demonstrate metastatic disease. Surgery 05/07/2021?wide excision right heel melanoma with a 2 cm margin, Integra graft placement, VAC placement. Right inguinal sentinel lymph node biopsy. Pathology?residual melanoma at the right heel with a depth of 1.3 mm. No microsatellitosis. 1 of 2 inguinal sentinel lymph nodes were involved, 0.02 mm deposit with no extracapsular extension. 0/1 popliteal lymph nodes involved Complicated by groin infection requiring drain placement. 12/08/2022?recurrent right inguinal silvia melanoma. No evidence of distant disease on PET/CT or brain MRI. [ ] Recommend for inguinal lymph node dissection. I recommend that this be done laparoscopically for clearance of his silvia basin. It is possible that with this laparoscopic procedure conversion to open would be needed at which point a sartorius flap reconstruction would also be performed to protect his vessels. I discussed the risks, benefits, and alternatives with the patient. He understands that there is a risk of lymphedema as well as wound infection, seroma, and other inherent portions of the procedure. Informed consent was obtained. [ ] I will plan for surgery on 12/23/2022. We will get cardiac clearance prior to this The patient asked very appropriate questions that were answered to the best of my ability with the current information at hand. He knows to call with any questions or concerns that arise in the interim. A total of 32 minutes were spent evaluating the patient's imaging and path and discussing his ongoing care. The majority of this time was spent in direct counseling and examination of the patient Chief Complaint Right heel melanoma History of Present IllnessMr. Epps presented as a 81-year-old male referred by Dr. 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 Due to lack of healing and an [...] site. The patient has not seen a caving guide but denies any other lesions of concern on his lower extremity or elsewhere on his body. Surgery 05/07/2021?wide excision right heel melanoma with a 2 cm margin, Integra graft placement, VAC placement. Right inguinal sentinel lymph node biopsy. Pathology?residual melanoma at the right heel with a depth of 1.3 mm. No microsatellitosis. 1 of 2 inguinal sentinel lymph nodes were involved, 0.02 mm deposit with no extracapsular extension. 0/1 popliteal lymph nodes involved Completed adjuvant Keytruda 12/08/2022?follow-up right inguinal melanoma recurrence. The patient had a whole-body PET/CT and brain MRI in [place] the identified PET avidity in the right inguinal basin concurrent with the palpable node. No other distant metastatic disease. Biopsy proved recurrence. The patient presents now for discussion of surgical planning. ROS: The patient has good performance status and is active daily. Cardiac: No chest pain, palpitations or heart attacks Pulmonary: No asthma, bronchitis, or COPD HEENT: right eye vision change GI: No constipation, diarrhea, or bloody bowel movements : No changes in his urinary habits recently Musculoskeletal: Ambulating well. Bilateral lower extremity edema, right greater than left. Mild Skin: Heel has healed very well. Multiple nonmelanoma skin cancers in the past Heme: No bleeding or thrombosis issues Endo: hypothyroid Ly (more content not included)... Normal [employer] Scre[facility].on 023 Fall risk assessment a) No falls within the last year [facility] 8587 Work Phone: Tobacco use status [facility] b) [facility] Work Phone: Absolute lymphocyte countOrd ered By: Dr. Souza on 11-12-2022 Lymphocytes Auto (Unsp spec) [#/Vol] 1.42 10*3/uL 0.83-4.51 [facility] Basophil percentageOrdered B y: Dr. Souza on 11-12-2022 Basophils/100 WBC (Bld) 0.4 % 0-[address] [facility] Bilirubin [Mass/Vol] 0.50 mg/dL 0.20-1.00 [facility] Comment on above: For patients on eltr ombopag therapy, use of Dimension [place] TBIL is not recommended. Chloride [Moles/Vol] 109 mmol/L 98-107 [facility] Eosinophils/100 WBC (Bld) 17.1 % 0-5 [facility] Glucose [Mass/Vol] 109 mg/dL 74-106 [facility] Comment on above: Fasting Glucose resu lt from 100 to 125 mg/dL suggests IMPAIRED HOMEOSTASIS per A.D.A. criteria. Neutrophils (Bld) [#/Vol] 2.4 10*3/uL 2.0-7.7 [facility] Neutrophils/100 WBC (Bld) 45.8 % 47-70 [facility] Potassium [Moles/Vol] 4.0 mmol/L 3.5-5.1 [facility] Protein [Mass/Vol] 7.3 g/dL 6.4-8.2 [facility] Sodium [Moles/Vol] 142 mmol/L 136-145 [facility] WBC (Bld) [#/Vol] 5.1 10*3/uL 4.4-11.0 [facility] Blood erythrocytes count (nu mber/volume)Ordered By: Dr. Souza on 11-12-2022 RBC (Bld) [#/Vol] 3.97 10*6/uL 4.6-6.2 [facility] Blood hemoglobin measurement (mass/volume)Ordered By: Dr. Souza on 11-12-2022 Hemoglobin (Bld) [Mass/Vol] 13.0 g/dL 13.0-16.5 [facility] Blood lymphocytes/100 leukoc ytesOrdered By: Dr. Souza on 11-12-2022 Lymphocytes/100 WBC (Bld) 27.6 % 19-41 [facility] Blood monocytes/100 leukocyt esOrdered By: Dr. Souza on 11-12-2022 Monocytes/100 WBC (Bld) 9.1 % 0-[address] [facility] Blood platelet mean volumeOr dered By: Dr. Souza on 11-12-2022 Platelet mean volume (Bld) [Entitic vol] 9.5 fL 6.2-12.0 [facility] Determination of erythrocyte mean corpuscular volume (MCV)Ordered By: Dr. Souza on 11-12-2022 MCV (RBC) [Entitic vol] 94.7 fL 80-[address] [facility] Hematocrit Auto (Bld) [Volum e fraction]Ordered By: Dr. Souza on 11-12-2022 Hematocrit (Bld) [Volume fraction] 37.6 % 40-54 [facility] Laboratory - Chemistry and C hemistry - challengeOrdered By: Dr. Souza on 11-12-2022 ALP [Catalytic activity/Vol] 90 U/L 45-117 [facility] ALT [Catalytic activity/Vol] 20 U/L 16-61 [facility] CO2 [Moles/Vol] 30.0 mmol/L 21.0-32.0 [facility] Globulin (S) [Mass/Vol] 3.9 g/dL 2.2-4.[address] [facility] Urea nitrogen/Creatinine [Mass ratio] 20.4 mg/mg 10-20 [facility] Laboratory - Hematology and Cell countsOrdered By: Dr. Souza on 11-12-2022 Erythrocyte distribution width (RBC) [Entitic vol] 44.9 fL 35.1-43.9 [facility] Erythrocyte distribution width (RBC) [Ratio] 12.9 % 11.6-14.6 [facility] Immature granulocytes/100 WBC (Bld) 0.000 % 0.0-0.9 [facility] Comment on above: IG% - Immature Granu locytes (promyelocytes, myelocytes and metamyelocytes) > 1% indicates that a LEFT SHIFT is Present. MCH (RBC) [Entitic mass] 32.7 pg 27.0-32.0 [facility] Nucleated RBC/100 WBC (Bld) [Ratio] 0 % 0-5 [facility] MCHC Auto (RBC) [Mass/Vol]Or dered By: Dr. Souza on 11-12-2022 MCHC (RBC) [Mass/Vol] 34.6 g/dL 32-36 [facility] No Panel InformationOrdered By: Dr. Souza on 11-12-2022 Estimated Creatinine Clearance Calc 47.93 ml/min [facility] Estimated GFR (MDRD) Amer 80 mL/min >60 [facility] Comment on above: GFR Calc Estimated GFR (MDRD) Non-Af Amer 66 mL/min >60 [facility] Comment on above: Non- GFR Calc Platelets bldOrdered By: Dr. Souza on 11-12-2022 Platelets (Bld) [#/Vol] 249 10*3/uL 150-450 [facility] Serum or plasma albumin arian urement (mass/volume)Ordered By: Dr. Souza on 11-12-2022 Albumin [Mass/Vol] 3.4 g/dL 3.2-5.0 [facility] Serum or plasma albumin/glob ulin mass ratioOrdered By: Dr. Souza on 11-12-2022 Albumin/Globulin [Mass ratio] 0.9 {ratio} 0.9-2.4 [facility] Serum or plasma calcium arian urement (mass/volume)Ordered By: Dr. Souza on 11-12-2022 Calcium [Mass/Vol] 9.1 mg/dL 8.5-10.1 [facility] Serum or plasma creatinine m easurement (mass/volume)Ordered By: Dr. Souza on 11-12-2022 Creatinine [Mass/Vol] 1.13 mg/dL 0.70-1.30 [facility] Comment on above: The validity of the calculated GFR & GFRAA in patients over 70 years has not been determined. Clinical correlation is essential. Serum or plasma urea nitroge n measurement (mass/volume)Ordered By: Dr. Souza on 11-12-2022 Urea nitrogen [Mass/Vol] 23 mg/dL 7-18 [facility] Thin prep Papanicolaou smear with manual screeningOrdered By: Dr. Souza on 11-12-2022 Thin prep Papanicolaou smear with manual screening 13 U/L 15-37 [facility] Thin prep Papanicolaou smear with manual screening 3 5-15 [facility] Blood Pressure Cuff Sizeon 1 01-11-2022 Fall risk assessment a) No falls within the last year [facility] 8728 Work Phone: Tobacco use status [facility]PH[facility] b) No [facility] 4607 Work Phone: Blood Pressure Cuff Size Large [facility] 4608 Work Phone: Office Visit (Oncology Surge ry)on 11-10-2022 Follow-up visit Diagnoses/Problems Assessed 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 : Patient with he metastatic melanoma to the right groin- US surveillance needed- palpated an abnormal node in clinic Patient Discussion/Summary Mr. Epps is an exceptionally nice 82-year-old male from [facility] presenting with a right heel acral lentiginous melanoma. This is at least 2.5 mm in Breslow depth and there is evidence of residual pigmentation surrounding the biopsy site. The current wound is 2 x 2.5 cm in size. The patient has no clinically palpable lymphadenopathy. The patient's pathology was reviewed and dermatopathology and his case will be presented in multidisciplinary tumor board. The patient was seen by Dr. Souza in medical oncology and had a whole-body PET/CT which did not demonstrate metastatic disease. Surgery 05/07/2021?wide excision right heel melanoma with a 2 cm margin, Integra graft placement, VAC placement. Right inguinal sentinel lymph node biopsy. Pathology?residual melanoma at the right heel with a depth of 1.3 mm. No microsatellitosis. 1 of 2 inguinal sentinel lymph nodes were involved, 0.02 mm deposit with no extracapsular extension. 0/1 popliteal lymph nodes involved Complicated by groin infection requiring drain placement. [ ] Ultrasound today. [ ] Plan for biopsy - The patient would like to have this done in [place] and I will talk with Dr. Souza about this after the ultrasound. [ ] If recurrence is noted, he will need new staging imaging. The patient asked very appropriate questions that were answered to the best of my ability with the current information at hand. He knows to call with any questions or concerns that arise in the interim. A total of 26 minutes were spent evaluating the patient and discussing his ongoing care. The majority of this time was spent in direct counseling and examination of the patient Chief Complaint Right heel melanoma History of Present IllnessMr. Epps presented as a 81-year-old male referred by Dr. 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 Due to lack of healing and an [...] site. The patient has not seen a caving guide but denies any other lesions of concern on his lower extremity or elsewhere on his body. Surgery 05/07/2021?wide excision right heel melanoma with a 2 cm margin, Integra graft placement, VAC placement. Right inguinal sentinel lymph node biopsy. Pathology?residual melanoma at the right heel with a depth of 1.3 mm. No microsatellitosis. 1 of 2 inguinal sentinel lymph nodes were involved, 0.02 mm deposit with no extracapsular extension. 0/1 popliteal lymph nodes involved Completed adjuvant Keytruda 11/10/2022?routine follow-up. The patient has no new skin lesions of concern. He continues to follow with Dr. Souza in medical oncology. He reports that he also has swelling and pain in his right great toe. This is gone on for a period of days and has not gotten acutely worse recently. ROS: The patient has good performance status and is active daily. Cardiac: No chest pain, palpitations or heart attacks Pulmonary: No asthma, bronchitis, or COPD HEENT: right eye vision change GI: No constipation, diarrhea, or bloody bowel movements : No changes in his urinary habits recently Musculoskeletal: Ambulating well. Bilateral lower extremity edema, right greater than left. Mild Skin: Heel has healed very well. Multiple nonmelanoma skin cancers in the past Heme: No bleeding or thrombosis issues Endo: hypothyroid Lymph: No swollen lymph glands Psych: No reported anxiety or depression All other systems reviewed and negative Physical exam: General: No acute distress. Healthy appearing HEENT: Moist oral mucosa, normocephalic CV: RRR, Vitals reviewed Pulmonary: No respiratory distress. No use of accessory muscles. No audible wheeze Lymphatics: Palpable mass in the right groin just lateral to the prior sentinel node biopsy scar. The patient has no palpable lymphadenopathy in the popliteal basin. Skin: Well healed heel wound. Some callus noted. The right great toe has evidence of redness and is tender at the medial aspect. This needs to be evaluated by podiatry. Ne (more content not included)... Normal [facility] US, EXTREMITY,NONVASCULAR,RE Al TIME WITH IMAGE DOCUMENTATION,LIMITED,ANATOMIC SPECIFICon 11-10-2022 US, EXTREMITY,NONVASCULAR,RE Al TIME WITH IMAGE DOCUMENTATION,LIMITED,AN ATOMIC SPECIFIC Patient Name: EMPERATRIZ EPPS STUDY: US, EXTREMITY,NONVASCULAR,RE Al TIME WITH IMAGE DOCUMENTATION,LIMITED,AN ATOMIC SPECIFIC 11/10/2022 12:33 pm INDICATION: 82 y/o M with Patient with he metastatic melanoma to the right groin- US surveillance needed C43.71: Malignant melanoma of right heel. LMP: Unknown. COMPARISON: Soft tissue ultrasound 06/02/2022 ACCESSION NUMBER(S): [id number] ORDERING CLINICIAN: HUSSEIN BENNETT TECHNIQUE: Routine ultrasound of the soft tissues of the right groin. Static images were obtained for remote interpretation. FINDINGS: Focused sonographic interrogation of the right groin now reveals a somewhat abnormally enlarged appearing lymph node measuring up to 2.5 x 1.4 x 2.5 cm which demonstrates an abnormal morphologic appearance. Additional smaller lymph nodes, largest which measures up to 2.1 x 1.1 x 1.4 cm which demonstrates appearance of a fatty hilum suggestive of normal morphology. IMPRESSION: Enlarged right groin lymph node measuring up to 2.5 x 1.4 x 2.5 cm demonstrating the appearance of abnormal morphology. Given patient's reported history of metastatic melanoma, correlation with PET-CT is advised for further assessment.. Electronically signed by: PHILLIP MOSQUEDA MD Normal [facility] Ultrasound Non Vasc Extremit y Limitedon 11-10-2022 US Extremity limited Normal [facility] 7434 Work Phone: Laboratory - Chemistry and C hemistry - challengeOrdered By: Dr. Ventura on 10-14-2022 Free T4 [Mass/Vol] 0.98 ng/dL 0.76-1.46 [facility] No Panel InformationOrdered By: Dr. Ventura on 10-14-2022 Thyroid Stimulating Hormone (TSH) 5.60 uIU/mL 0.358-3.74 [facility] Serum or plasma cortisol karon surement (mass/volume)Ordered By: Dr. Souza on 10-14-2022 Cortisol [Mass/Vol] 7.80 ug/dL 3.44-22.45 [facility] Comment on above: Adult (AM) 5.27 - 22 .45 ug/dL Adult (PM) 3.44 - 16.76 ug/dLPlease note revised CORTISOL reference range effective 2020. No Panel InformationOrdered By: Dr. Souza on 08-14-2022 Prostate Specific Antigen Total 7.07 ng/mL 0.0-4.0 [facility] Comment on above: This test was perfor med using the TPSA assay method for theJustRight [employer] chemistry system. Values obtained with differentassay methods cannot be used interchangably.When changing PSA assays in the course of monitoring apatient, additional sequential testing should be carriedout to confirm baseline values. Absolute lymphocyte counton 07-15-2022 Lymphocytes Auto (Unsp spec) [#/Vol] 1.68 10*3/uL 0.83-4.51 [facility] Work Phone: Basophil percentageon 2021 Basophils/100 WBC (Bld) 0.7 % 0-1 [facility] Work Phone: Bilirubin [Mass/Vol] 0.50 mg/dL 0.20-1.00 [facility] Work Phone: Comment on above: For patients on eltr ombopag therapy, use of Dimension [place] TBIL is not recommended. Chloride [Moles/Vol] 106 mmol/L 98-107 [facility] Work Phone: Eosinophils/100 WBC (Bld) 8.3 % 0-5 [facility] Work Phone: Glucose [Mass/Vol] 125 mg/dL 74-106 [facility] Work Phone: Comment on above: Fasting Glucose resu lt from 100 to 125 mg/dL suggests IMPAIRED HOMEOSTASIS per A.D.A. criteria. Neutrophils (Bld) [#/Vol] 2.9 10*3/uL 2.0-7.7 [facility] Work Phone: Neutrophils/100 WBC (Bld) 51.3 % 47-70 [facility] Work Phone: [phone] Potassium [Moles/Vol] 3.7 mmol/L 3.5-5.1 [facility] Work Phone: Protein [Mass/Vol] 7.0 g/dL 6.4-8.2 [facility] Work Phone: Sodium [Moles/Vol] 141 mmol/L 136-145 [facility] Work Phone: [phone] WBC (Bld) [#/Vol] 5.6 10*3/uL 4.4-11.0 [facility] Work Phone: Blood erythrocytes count (nu mber/volume)on 07-15-2022 RBC (Bld) [#/Vol] 4.19 10*6/uL 4.6-6.2 [facility] Work Phone: Blood hemoglobin measurement (mass/volume)on 07-15-2022 Hemoglobin (Bld) [Mass/Vol] 13.5 g/dL 13.0-16.5 [facility] Work Phone: [phone] Blood lymphocytes/100 leukoc yteson 07-15-2022 Lymphocytes/100 WBC (Bld) 30.2 % 19-41 [facility] Work Phone: Blood monocytes/100 leukocyt eson 07-15-2022 Monocytes/100 WBC (Bld) 9.3 % 0-[address] [facility] Work Phone: Blood platelet mean volumeon 07-15-2022 Platelet mean volume (Bld) [Entitic vol] 9.5 fL 6.2-12.0 [facility] Work Phone: Determination of erythrocyte mean corpuscular volume (MCV)on 07-15-2022 MCV (RBC) [Entitic vol] 93.1 fL 80-[address] [facility] Work Phone: Hematocrit Auto (Bld) [Volum e fraction]on 07-15-2022 Hematocrit (Bld) [Volume fraction] 39.0 % 40-54 [facility] Work Phone: [phone] Laboratory - Chemistry and C hemistry - challengeon 07-15-2022 ALP [Catalytic activity/Vol] 81 U/L 45-117 [facility] Work Phone: [phone] ALT [Catalytic activity/Vol] 19 U/L 16-61 [facility] Work Phone: [phone] CO2 [Moles/Vol] 29.0 mmol/L 21.0-32.0 [facility] Work Phone: [phone] Free T4 [Mass/Vol] 1.14 ng/dL 0.76-1.46 [facility] Work Phone: [phone] Globulin (S) [Mass/Vol] 3.7 g/dL 2.2-4.[address] [facility] Work Phone: [phone] Urea nitrogen/Creatinine [Mass ratio] 14.8 mg/mg 10-20 [facility] Work Phone: [phone] Laboratory - Hematology and Cell countson 07-15-2022 Erythrocyte distribution width (RBC) [Entitic vol] 44.1 fL 35.1-43.9 [facility] Work Phone: [phone] Erythrocyte distribution width (RBC) [Ratio] 13.0 % 11.6-14.6 [facility] Work Phone: [phone] Immature granulocytes/100 WBC (Bld) 0.200 % 0.0-0.9 [facility] Work Phone: [phone] Comment on above: IG% - Immature Granu locytes (promyelocytes, myelocytes and metamyelocytes) > 1% indicates that a LEFT SHIFT is Present. MCH (RBC) [Entitic mass] 32.2 pg 27.0-32.0 [facility] Work Phone: [phone] Nucleated RBC/100 WBC (Bld) [Ratio] 0 % 0-5 [facility] Work Phone: [phone] MCHC Auto (RBC) [Mass/Vol]on 07-15-2022 MCHC (RBC) [Mass/Vol] 34.6 g/dL 32-36 [facility] Work Phone: [phone] Panel Informationon 07-15 Estimated Creatinine Clearance Calc 42.32 ml/min [facility] Work Phone: Estimated GFR (MDRD) Amer 69 mL/min >60 [facility] Work Phone: Comment on above: GFR Calc Estimated GFR (MDRD) Non-Af Amer 57 mL/min >60 [facility] Work Phone: Comment on above: Non- GFR Calc Thyroid Stimulating Hormone (TSH) 1.95 uIU/mL 0.358-3.74 [facility] Work Phone: Platelets bldon 07-15-2022 Platelets (Bld) [#/Vol] 276 10*3/uL 150-450 [facility] Work Phone: Serum or plasma albumin arian urement (mass/volume)on 07-15-2022 Albumin [Mass/Vol] 3.3 g/dL 3.2-5.0 [facility] Work Phone: Serum or plasma albumin/glob ulin mass ratioon 07-15-2022 Albumin/Globulin [Mass ratio] 0.9 {ratio} 0.9-2.4 [facility] Work Phone: Serum or plasma calcium arian urement (mass/volume)on 07-15-2022 Calcium [Mass/Vol] 8.8 mg/dL 8.5-10.1 [facility] Work Phone: Serum or plasma cortisol karon surement (mass/volume)on 07-15-2022 Cortisol [Mass/Vol] 7.90 ug/dL 3.44-22.45 [facility] Work Phone: Comment on above: Adult (AM) 5.27 - 22 .45 ug/dL Adult (PM) 3.44 - 16.76 ug/dLPlease note revised CORTISOL reference range effective 2020. Serum or plasma creatinine m easurement (mass/volume)on 07-15-2022 Creatinine [Mass/Vol] 1.28 mg/dL 0.70-1.30 [facility] Work Phone: Comment on above: The validity of the calculated GFR & GFRAA in patients over 70 years has not been determined. Clinical correlation is essential. Serum or plasma urea nitroge n measurement (mass/volume)on 07-15-2022 Urea nitrogen [Mass/Vol] 19 mg/dL 7-18 [facility] Work Phone: Thin prep Papanicolaou smear with manual screeningon 07-15-2022 Thin prep Papanicolaou smear with manual screening 17 U/L 15-37 [facility] Work Phone: [phone] Thin prep Papanicolaou smear with manual screening 6 5-15 [facility] Work Phone: [phone] Absolute lymphocyte counton 06-15-2022 Lymphocytes Auto (Unsp spec) [#/Vol] 1.46 10*3/uL 0.83-4.51 [facility] Work Phone: Basophil percentageOrdered B y: Dr. Souza on 06-15-2022 Basophil percentage 2.3 mg/dL 2.5-4.9 [facility] Basophil percentageon 2021 Basophils/100 WBC (Bld) 0.6 % 0-[address] [facility] Work Phone: Bilirubin [Mass/Vol] 0.30 mg/dL 0.20-1.00 [facility] Work Phone: Comment on above: For patients on eltr ombopag therapy, use of Dimension [place] TBIL is not recommended. Chloride [Moles/Vol] 108 mmol/L 98-107 [facility] Work Phone: Eosinophils/100 WBC (Bld) 15.0 % 0-5 [facility] Work Phone: Glucose [Mass/Vol] 108 mg/dL 74-106 [facility] Work Phone: Comment on above: Fasting Glucose resu lt from 100 to 125 mg/dL suggests IMPAIRED HOMEOSTASIS per A.D.A. criteria. Neutrophils (Bld) [#/Vol] 2.3 10*3/uL 2.0-7.7 [facility] Work Phone: Neutrophils/100 WBC (Bld) 46.7 % 47-70 [facility] Work Phone: Potassium [Moles/Vol] 3.8 mmol/L 3.5-5.1 [facility] Work Phone: [phone] Protein [Mass/Vol] 7.1 g/dL 6.4-8.2 [facility] Work Phone: [phone] Sodium [Moles/Vol] 142 mmol/L 136-145 [facility] Work Phone: [phone] WBC (Bld) [#/Vol] 5.0 10*3/uL 4.4-11.0 [facility] Work Phone: [phone] Blood erythrocytes count (nu mber/volume)on 06-15-2022 RBC (Bld) [#/Vol] 4.17 10*6/uL 4.6-6.2 [facility] Work Phone: [phone] Blood hemoglobin measurement (mass/volume)on 06-15-2022 Hemoglobin (Bld) [Mass/Vol] 13.1 g/dL 13.0-16.5 [facility] Work Phone: [phone] Blood lymphocytes/100 leukoc yteson 06-15-2022 Lymphocytes/100 WBC (Bld) 29.1 % 19-41 [facility] Work Phone: [phone] Blood monocytes/100 leukocyt eson 06-15-2022 Monocytes/100 WBC (Bld) 8.4 % 0-[address] [facility] Work Phone: [phone] Blood platelet mean volumeon 06-15-2022 Platelet mean volume (Bld) [Entitic vol] 9.6 fL 6.2-12.0 [facility] Work Phone: [phone] Determination of erythrocyte mean corpuscular volume (MCV)on 06-15-2022 MCV (RBC) [Entitic vol] 93.0 fL 80-[address] [facility] Work Phone: [phone] Hematocrit Auto (Bld) [Volum e fraction]on 06-15-2022 Hematocrit (Bld) [Volume fraction] 38.8 % 40-54 [facility] Work Phone: Laboratory - Chemistry and C hemistry - challengeon 06-15-2022 ALP [Catalytic activity/Vol] 79 U/L 45-117 [facility] Work Phone: [phone] ALT [Catalytic activity/Vol] 20 U/L 16-61 [facility] Work Phone: [phone] CO2 [Moles/Vol] 28.0 mmol/L 21.0-32.0 [facility] Work Phone: [phone] Globulin (S) [Mass/Vol] 3.6 g/dL 2.2-4.[address] [facility] Work Phone: [phone] Urea nitrogen/Creatinine [Mass ratio] 16.2 mg/mg 10-20 [facility] Work Phone: [phone] Laboratory - Chemistry and C hemistry - challengeOrdered By: Dr. Souza on 06-15-2022 Magnesium [Mass/Vol] 2.5 mg/dL 1.6-2.6 [facility] Laboratory - Hematology and Cell countson 06-15-2022 Erythrocyte distribution width (RBC) [Entitic vol] 45.5 fL 35.1-43.9 [facility] Work Phone: [phone] Erythrocyte distribution width (RBC) [Ratio] 13.3 % 11.6-14.6 [facility] Work Phone: [phone] Immature granulocytes/100 WBC (Bld) 0.200 % 0.0-0.9 [facility] Work Phone: [phone] Comment on above: IG% - Immature Granu locytes (promyelocytes, myelocytes and metamyelocytes) > 1% indicates that a LEFT SHIFT is Present. MCH (RBC) [Entitic mass] 31.4 pg 27.0-32.0 [facility] Work Phone: [phone] Nucleated RBC/100 WBC (Bld) [Ratio] 0 % 0-5 [facility] Work Phone: [phone] MCHC Auto (RBC) [Mass/Vol]on 06-15-2022 MCHC (RBC) [Mass/Vol] 33.8 g/dL 32-36 [facility] Work [facility]: [phone] Panel Informationon 06-15 Estimated Creatinine Clearance Calc 46.30 ml/min [facility] Work Phone: [phone] Estimated GFR (MDRD) Amer 77 mL/min >60 [facility] Work Phone: [phone] Comment on above: GFR Calc Estimated GFR (MDRD) Non-Af Amer 64 mL/min >60 [facility] Work Phone: [phone] Comment on above: Non- GFR Calc Prostate Specific Antigen Total 7.67 ng/mL 0.0-4.0 [facility] Work Phone: [phone] Comment on above: This test was perfor med using the TPSA assay method for [employer] chemistry system. Values obtained with differentassay methods cannot be used interchangably.When changing PSA assays in the course of monitoring apatient, additional sequential testing should be carriedout to confirm baseline values. Platelets bldon 06-15-2022 Platelets (Bld) [#/Vol] 286 10*3/uL 150-450 [facility] Work Phone: [phone] Serum or plasma albumin arian urement (mass/volume)on 06-15-2022 Albumin [Mass/Vol] 3.5 g/dL 3.2-5.0 [facility] Work Phone: [phone] Serum or plasma albumin/glob ulin mass ratioon 06-15-2022 Albumin/Globulin [Mass ratio] 1.0 {ratio} 0.9-2.4 [facility] Work Phone: [phone] Serum or plasma calcium arian urement (mass/volume)on 06-15-2022 Calcium [Mass/Vol] 9.2 mg/dL 8.5-10.1 [facility] Work Phone: [phone] Serum or plasma creatinine m easurement (mass/volume)on 06-15-2022 Creatinine [Mass/Vol] 1.17 mg/dL 0.70-1.30 [facility] Work Phone: Comment on above: The validity of the calculated GFR & GFRAA in patients over 70 years has not been determined. Clinical correlation is essential. Serum or plasma urea nitroge n measurement (mass/volume)on 06-15-2022 Urea nitrogen [Mass/Vol] 19 mg/dL 06-15 [facility] Work Phone: Thin prep Papanicolaou smear with manual screeningon 06-15-2022 Thin prep Papanicolaou smear with manual screening 15 U/L 15-37 [facility] Work Phone: Thin prep Papanicolaou smear with manual screening 6 5-15 [facility] Work Phone: US, EXTREMITY,NONVASCULAR,RE Al TIME WITH IMAGE DOCUMENTATION,LIMITED,ANATOMIC SPECIFICon 06-02-2022 US, EXTREMITY,NONVASCULAR,RE Al TIME WITH IMAGE DOCUMENTATION,LIMITED,AN ATOMIC SPECIFIC Patient Name: EMPERATRIZ EPPS STUDY: US, EXTREMITY,NONVASCULAR,RE Al TIME WITH IMAGE DOCUMENTATION,LIMITED,AN ATOMIC SPECIFIC 06/02/2022 11:10 am INDICATION: 82 y/o M with pt with he melanoma mets to the R groin- US surveillance of R groin needed C43.71: Malignant melanoma of right heel. LMP: Unknown. COMPARISON: None. ACCESSION NUMBER(S): [id number] ORDERING CLINICIAN: HUSSEIN BENNETT TECHNIQUE: Routine ultrasound of the right lower extremity was performed with duplex Doppler (color and spectral) evaluation. Static images were obtained for remote interpretation. FINDINGS: Within the right inguinal region, there are at least 4 small inguinal lymph nodes measuring up to 1 cm in short axis. These maintain their fatty jonah and demonstrate a normal cortical thickness. No sonographically abnormal appearing lymph nodes are noted. IMPRESSION: 4 small right inguinal lymph nodes which do not demonstrate any suspicious sonographic characteristics. Electronically signed by: KEITH ECHEVERRIA MD Normal [facility] Ultrasound Non Vasc Extremit y Limitedon 06-02-2022 US Extremity limited Normal [facility]S urgeryS [facility] Work Phone: Laboratory - Chemistry and C hemistry - challengeon 05-25-2022 Free T4 [Mass/Vol] 1.03 ng/dL 0.76-1.46 [facility] Work Phone: No Panel Informationon 05-25 Thyroid Stimulating Hormone (TSH) 3.62 uIU/mL 0.358-3.74 [facility] Work Phone: Serum or plasma cortisol karon surement (mass/volume)on 05-25-2022 Cortisol [Mass/Vol] 6.90 ug/dL 3.44-22.45 [facility] Work Phone: Comment on above: Adult (AM) 5.27 - 22 .45 ug/dL Adult (PM) 3.44 - 16.76 ug/dLPlease note revised CORTISOL reference range effective 2020. Falls Risk Screeningon 05-12 Fall risk assessment a) No falls within the last year [id number] Work Phone: Office Visit (Oncology Surge ry)on 05-12-2022 Follow-up visit Diagnoses/Problems Assessed Malignant melanoma of right heel (172.7) (C43.71) Patient Discussion/Summary Mr. Epps is an exceptionally nice 82-year-old male from [facility] presenting with a right heel acral lentiginous melanoma. This is at least 2.5 mm in Breslow depth and there is evidence of residual pigmentation surrounding the biopsy site. The current wound is 2 x 2.5 cm in size. The patient has no clinically palpable lymphadenopathy. The patient's pathology was reviewed and dermatopathology and his case will be presented in multidisciplinary tumor board. The patient was seen by Dr. Souza in medical oncology and had a whole-body PET/CT which did not demonstrate metastatic disease. Surgery 05/07/2021?wide excision right heel melanoma with a 2 cm margin, Integra graft placement, VAC placement. Right inguinal sentinel lymph node biopsy. Pathology?residual melanoma at the right heel with a depth of 1.3 mm. No microsatellitosis. 1 of 2 inguinal sentinel lymph nodes were involved, 0.02 mm deposit with no extracapsular extension. 0/1 popliteal lymph nodes involved Complicated by groin infection requiring drain placement. [ ] Referral to lymphedema therapy for assessment of lower extremity swelling. The patient will also need to see his primary care physician to have an evaluation considering his recent cardiac issues and new onset bilateral lower extremity edema. [ ] Continue with silvia surveillance ultrasounds every 4 months for the first 2 years and every 6 months for years 3-5. He can do these locally if desired [ ] Continue with Dr. Souza in Medical Oncology for Adjuvant Immunotherapy and cross-sectional surveillance [ ] Dermatology visits for total body skin examinations. The patient asked very appropriate questions that were answered to the best of my ability with the current information at hand. He knows to call with any questions or concerns that arise in the interim. A total of 190 minutes was spent evaluating the patient and discussing his ongoing care. The majority of this time was spent in direct counseling and examination of the patient Chief Complaint Right heel melanoma History of Present IllnessMr. Epps presented as a 81-year-old male referred by Dr. 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 Due to lack of healing and an [...] site. The patient has not seen a caving guide but denies any other lesions of concern on his lower extremity or elsewhere on his body. Surgery 05/07/2021?wide excision right heel melanoma with a 2 cm margin, Integra graft placement, VAC placement. Right inguinal sentinel lymph node biopsy. Pathology?residual melanoma at the right heel with a depth of 1.3 mm. No microsatellitosis. 1 of 2 inguinal sentinel lymph nodes were involved, 0.02 mm deposit with no extracapsular extension. 0/1 popliteal lymph nodes involved 01/13/2022 - Routine follow up. The patient continues [...] onset atrial fibrillation and is currently on Eliquis. ROS: The patient has good performance status and is active daily. Cardiac: No chest pain, palpitations or heart attacks Pulmonary: No asthma, bronchitis, or COPD HEENT: right eye vision change GI: No constipation, diarrhea, or bloody bowel movements : No changes in his urinary habits recently Musculoskeletal: Ambulating well. Bilateral lower extremity edema, right greater than left. Mild Skin: Heel has healed very well. Multiple biopsies of the skin noted since the last visit - [facility] Heme: No bleeding or thrombosis issues Endo: hypothyroid Lymph: No swollen lymph glands Psych: No reported anxiety or depression All other systems reviewed and negative Physical exam: General: No acute distress. Healthy appearing HEENT: Moist oral mucosa, normocephalic CV: RRR, Vitals reviewed Pulmonary: No respiratory distress (more content not included)... Normal [place] Absolute lymphocyte counton 03-23-2022 Lymphocytes Auto (Unsp spec) [#/Vol] 1.79 10*3/uL 0.83-4.51 [facility] Work Phone: Basophil percentageon 2021 Basophil percentage 2.7 mg/dL 2.5-4.9 [facility] Work Phone: Basophils/100 WBC (Bld) 0.5 % 0-[address] [facility] Work Phone: Bilirubin [Mass/Vol] 0.50 mg/dL 0.20-1.00 [facility] Work Phone: Comment on above: For patients on eltr ombopag therapy, use of Dimension [place] TBIL is not recommended. Chloride [Moles/Vol] 108 mmol/L 98-107 [facility] Work Phone: Eosinophils/100 WBC (Bld) 9.5 % 0-5 [facility] Work Phone: Glucose [Mass/Vol] 100 mg/dL 74-106 [facility] Work Phone: Comment on above: Fasting Glucose resu lt from 100 to 125 mg/dL suggests IMPAIRED HOMEOSTASIS per A.D.A. criteria. Neutrophils (Bld) [#/Vol] 2.8 10*3/uL 2.0-7.7 [facility] Work Phone: [phone] Neutrophils/100 WBC (Bld) 49.3 % 47-70 [facility] Work Phone: [phone] Potassium [Moles/Vol] 3.8 mmol/L 3.5-5.1 [facility] Work Phone: [phone] Protein [Mass/Vol] 7.2 g/dL 6.4-8.2 [facility] Work Phone: [phone] Sodium [Moles/Vol] 137 mmol/L 136-145 [facility] Work Phone: [phone] WBC (Bld) [#/Vol] 5.8 10*3/uL 4.4-11.0 [facility] Work Phone: [phone] Blood erythrocytes count (nu mber/volume)on 03-23-2022 RBC (Bld) [#/Vol] 3.79 10*6/uL 4.6-6.2 [facility] Work Phone: [phone] Blood hemoglobin measurement (mass/volume)on 03-23-2022 Hemoglobin (Bld) [Mass/Vol] 12.1 g/dL 13.0-16.5 [facility] Work Phone: [phone] Blood lymphocytes/100 leukoc yteson 03-23-2022 Lymphocytes/100 WBC (Bld) 31.0 % 19-41 [facility] Work Phone: [phone] Blood monocytes/100 leukocyt eson 03-23-2022 Monocytes/100 WBC (Bld) 9.4 % 0-[address] [facility] Work Phone: [phone] Blood platelet mean volumeon 03-23-2022 Platelet mean volume (Bld) [Entitic vol] 8.9 fL 6.2-12.0 [facility] Work Phone: [phone] Determination of erythrocyte mean corpuscular volume (MCV)on 03-23-2022 MCV (RBC) [Entitic vol] 92.3 fL 80-[address] [facility] Work Phone: [phone] Hematocrit Auto (Bld) [Volum e fraction]on 03-23-2022 Hematocrit (Bld) [Volume fraction] 35.0 % 40-54 [facility] Work Phone: [phone] Laboratory - Chemistry and C hemistry - challengeon 03-23-2022 ALP [Catalytic activity/Vol] 80 U/L 45-117 [facility] Work Phone: [phone] ALT [Catalytic activity/Vol] 23 U/L 16-61 [facility] Work Phone: [phone] CO2 [Moles/Vol] 26.0 mmol/L 21.0-32.0 [facility] Work Phone: [phone] Globulin (S) [Mass/Vol] 3.9 g/dL 2.2-4.[address] [facility] Work Phone: [phone] Urea nitrogen/Creatinine [Mass ratio] 13.3 mg/mg 10-20 [facility] Work Phone: [phone] Laboratory - Hematology and Cell countson 03-23-2022 Erythrocyte distribution width (RBC) [Entitic vol] 40.9 fL 35.1-43.9 [facility] Work Phone: [phone] Erythrocyte distribution width (RBC) [Ratio] 12.0 % 11.6-14.6 [facility] Work Phone: [phone] Immature granulocytes/100 WBC (Bld) 0.300 % 0.0-0.9 [facility] Work Phone: [phone] Comment on above: IG% - Immature Granu locytes (promyelocytes, myelocytes and metamyelocytes) > 1% indicates that a LEFT SHIFT is Present. MCH (RBC) [Entitic mass] 31.9 pg 27.0-32.0 [facility] Work Phone: [phone] Nucleated RBC/100 WBC (Bld) [Ratio] 0 % 0-5 [facility] Work Phone: [phone] MCHC Auto (RBC) [Mass/Vol]on 03-23-2022 MCHC (RBC) [Mass/Vol] 34.6 g/dL 32-36 [facility] Work Phone: No Panel Informationon 03-23 Estimated Creatinine Clearance Calc 45.14 ml/min [facility] Work Phone: Estimated GFR (MDRD) Amer 75 mL/min >60 [facility] Work Phone: Comment on above: GFR Calc Estimated GFR (MDRD) Non-Af Amer 62 mL/min >60 [facility] Work Phone: Comment on above: Non- GFR Calc Platelets bldon 03-23-2022 Platelets (Bld) [#/Vol] 384 10*3/uL 150-450 [facility] Work Phone: Serum or plasma albumin arian urement (mass/volume)on 03-23-2022 Albumin [Mass/Vol] 3.3 g/dL 3.2-5.0 [facility] Work Phone: Serum or plasma albumin/glob ulin mass ratioon 03-23-2022 Albumin/Globulin [Mass ratio] 0.8 {ratio} 0.9-2.4 [facility] Work Phone: Serum or plasma calcium arian urement (mass/volume)on 03-23-2022 Calcium [Mass/Vol] 8.6 mg/dL 8.5-10.1 [facility] Work Phone: [phone] Serum or plasma creatinine m easurement (mass/volume)on 03-23-2022 Creatinine [Mass/Vol] 1.20 mg/dL 0.70-1.30 [facility] Work Phone: Comment on above: The validity of the calculated GFR & GFRAA in patients over 70 years has not been determined. Clinical correlation is essential. Serum or plasma urea nitroge n measurement (mass/volume)on 03-23-2022 Urea nitrogen [Mass/Vol] 16 mg/dL 7-18 [facility] Work Phone: Thin prep Papanicolaou smear with manual screeningon 03-23-2022 Thin prep Papanicolaou smear with manual screening 19 U/L 15-37 [facility] [place] Work Phone: [phone] Thin prep Papanicolaou smear with manual screening 3 5-15 [facility] [place] [facility] Work Phone: [phone] Laboratory - Microbiology an d Antimicrobial susceptibilityon 03-19-2022 SARS-CoV-2 (COVID-19) RNA KACIE+probe Ql (Unsp spec) Negative Not Detect [facility] Work Phone: [phone] Comment on above: Normal Reference Ran ge: Not DetectedMethod:(RT-PCR) real-time reverse transcriptase PCRLuminex ISABEL Instrument*The Food and Drug Administration (FDA) has issued an Emergency Use Authorization (EAU) for the iLike SARS-CoV-2 Assay for the rapid detection of the virus that causes COVID-19. This test has been validated, but the FDAs independent review of this validation is pending.*Negative results do not preclude infection and should not be used as the sole basis for treatment or patient management. Optimum specimen types and timing for peak viral levels during infections caused by SARS-CoV-2 have not been determined. Collection of multiple specimens from the same patient may be necessary to detect the virus. The possibility of a false negative result should be considered if the patient has clinical presentation or has had recent exposure. Absolute lymphocyte counton 03-02-2022 Lymphocytes Auto (Unsp spec) [#/Vol] 1.61 10*3/uL 0.83-4.51 [facility] [place] [facility] Work Phone: [phone] Basophil percentageon 2021 Basophil percentage 1.8 mg/dL 2.5-4.9 [facility] Work Phone: [phone] Basophils/100 WBC (Bld) 0.3 % 0-[address] [facility] Work Phone: [phone] Bilirubin [Mass/Vol] 0.30 mg/dL 0.20-1.00 [facility] Work Phone: [phone] Comment on above: For patients on eltr ombopag therapy, use of Dimension [place] TBIL is not recommended. Chloride [Moles/Vol] 107 mmol/L 98-107 [facility] Work Phone: Eosinophils/100 WBC (Bld) 11.5 % 0-5 [facility] [place] [facility] Work Phone: Glucose [Mass/Vol] 116 mg/dL 74-106 [facility] Work Phone: Comment on above: Fasting Glucose resu lt from 100 to 125 mg/dL suggests IMPAIRED HOMEOSTASIS per A.D.A. criteria. Neutrophils (Bld) [#/Vol] 3.3 10*3/uL 2.0-7.7 [facility] [place] [facility] Work Phone: Neutrophils/100 WBC (Bld) 52.9 % 47-70 [facility] Work Phone: Potassium [Moles/Vol] 3.3 mmol/L 3.5-5.1 [facility] Work Phone: Protein [Mass/Vol] 7.3 g/dL 6.4-8.2 [facility] Work Phone: Sodium [Moles/Vol] 138 mmol/L 136-145 [facility] Work Phone: WBC (Bld) [#/Vol] 6.3 10*3/uL 4.4-11.0 [facility] Work Phone: Blood erythrocytes count (nu mber/volume)on 03-02-2022 RBC (Bld) [#/Vol] 4.15 10*6/uL 4.6-6.2 [facility] Work Phone: Blood hemoglobin measurement (mass/volume)on 03-02-2022 Hemoglobin (Bld) [Mass/Vol] 13.5 g/dL 13.0-16.5 [facility] [place] [facility] Work Phone: Blood lymphocytes/100 leukoc yteson 03-02-2022 Lymphocytes/100 WBC (Bld) 25.7 % 19-41 [facility] [place] [facility] Work Phone: Blood monocytes/100 leukocyt eson 03-02-2022 Monocytes/100 WBC (Bld) 9.4 % 0-[address] [facility] Work Phone: [phone] Blood platelet mean volumeon 03-02-2022 Platelet mean volume (Bld) [Entitic vol] 9.2 fL 6.2-12.0 [facility] [place] [facility] Work Phone: [phone] Determination of erythrocyte mean corpuscular volume (MCV)on 03-02-2022 MCV (RBC) [Entitic vol] 93.0 fL 80-[address] [facility] Work Phone: [phone] Hematocrit Auto (Bld) [Volum e fraction]on 03-02-2022 Hematocrit (Bld) [Volume fraction] 38.6 % 40-54 [facility] [place] [facility] Work Phone: [phone] Laboratory - Chemistry and C hemistry - challengeon 03-02-2022 ALP [Catalytic activity/Vol] 86 U/L 45-117 [facility] [place] [facility] Work Phone: [phone] ALT [Catalytic activity/Vol] 19 U/L 16-61 [facility] [place] [facility] Work Phone: [phone] CO2 [Moles/Vol] 26.0 mmol/L 21.0-32.0 [facility] [place] [facility] Work Phone: [phone] Globulin (S) [Mass/Vol] 3.8 g/dL 2.2-4.[address] [facility] Work Phone: [phone] Urea nitrogen/Creatinine [Mass ratio] 15.2 mg/mg 10-20 [facility] [place] [facility] Work Phone: [phone] Laboratory - Hematology and Cell countson 03-02-2022 Erythrocyte distribution width (RBC) [Entitic vol] 41.1 fL 35.1-43.9 [facility] Work Phone: [phone] Erythrocyte distribution width (RBC) [Ratio] 12.1 % 11.6-14.6 [facility] [place] [facility] Work Phone: [phone] Immature granulocytes/100 WBC (Bld) 0.200 % 0.0-0.9 [facility] [place] [facility] Work Phone: [phone] Comment on above: IG% - Immature Granu locytes (promyelocytes, myelocytes and metamyelocytes) > 1% indicates that a LEFT SHIFT is Present. MCH (RBC) [Entitic mass] 32.5 pg 27.0-32.0 [facility] [place] [facility] Work Phone: [phone] Nucleated RBC/100 WBC (Bld) [Ratio] 0 % 0-5 [facility] [place] [facility] Work Phone: [phone] MCHC Auto (RBC) [Mass/Vol]on 03-02-2022 MCHC (RBC) [Mass/Vol] 35.0 g/dL 32-36 [facility] Work Phone: [phone] Panel Informationon 03-02 Estimated Creatinine Clearance Calc 43.33 ml/min [facility] [place] [facility] Work Phone: [phone] Estimated GFR (MDRD) Amer 71 mL/min >60 [facility] [place] [facility] Work Phone: [phone] Comment on above: GFR Calc Estimated GFR (MDRD) Non-Af Amer 59 mL/min >60 [facility] [place] [facility] Work Phone: [phone] Comment on above: Non- GFR Calc Prostate Specific Antigen Total 7.39 ng/mL 0.0-4.0 [facility] [place] [facility] Work Phone: [phone] Comment on above: This test was perfor med using the TPSA assay method for [employer] chemistry system. Values obtained with differentassay methods cannot be used interchangably.When changing PSA assays in the course of monitoring apatient, additional sequential testing should be carriedout to confirm baseline values. Platelets bldon 03-02-2022 Platelets (Bld) [#/Vol] 286 10*3/uL 150-450 [facility] [place] [facility] Work Phone: [phone] Serum or plasma albumin arian urement (mass/volume)on 03-02-2022 Albumin [Mass/Vol] 3.5 g/dL 3.2-5.0 [facility] Work Phone: [phone] Serum or plasma albumin/glob ulin mass ratioon 03-02-2022 Albumin/Globulin [Mass ratio] 0.9 {ratio} 0.9-2.4 [facility] Work Phone: [phone] Serum or plasma calcium arian urement (mass/volume)on 03-02-2022 Calcium [Mass/Vol] 8.9 mg/dL 8.5-10.1 [facility] Work Phone: Serum or plasma creatinine m easurement (mass/volume)on 03-02-2022 Creatinine [Mass/Vol] 1.25 mg/dL 0.70-1.30 [facility] Work Phone: Comment on above: The validity of the calculated GFR & GFRAA in patients over 70 years has not been determined. Clinical correlation is essential. Serum or plasma urea nitroge n measurement (mass/volume)on 03-02-2022 Urea nitrogen [Mass/Vol] 19 mg/dL 7-18 [facility] [place] [facility] Work Phone: Thin prep Papanicolaou smear with manual screeningon 03-02-2022 Thin prep Papanicolaou smear with manual screening 14 U/L 15-37 [facility] [place] [facility] Work Phone: Thin prep Papanicolaou smear with manual screening 5 5-15 [facility] [place] [facility] Work Phone: Basophil percentageon 2021 Chloride [Moles/Vol] 109 mmol/L 98-107 [facility] Work Phone: Glucose [Mass/Vol] 94 mg/dL 74-106 [facility] Work Phone: Potassium [Moles/Vol] 3.3 mmol/L 3.5-5.1 [facility] Work Phone: Sodium [Moles/Vol] 140 mmol/L 136-145 [facility] Work Phone: Laboratory - Chemistry and C hemistry - challengeon 02-23-2022 CO2 [Moles/Vol] 26.0 mmol/L 21.0-32.0 [facility] Work Phone: Urea nitrogen/Creatinine [Mass ratio] 12.5 mg/mg 10-20 [facility] [place] [facility] Work Phone: No Panel Informationon 02-23 Estimated Creatinine Clearance Calc 40.84 ml/min [facility] [place] [facility] Work Phone: Estimated GFR (MDRD) Amer 69 mL/min >60 [facility] [place] [facility] Work Phone: Comment on above: GFR Calc Estimated GFR (MDRD) Non-Af Amer 57 mL/min >60 [facility] [place] [facility] Work Phone: Comment on above: Non- GFR Calc Serum or plasma calcium arian urement (mass/volume)on 02-23-2022 Calcium [Mass/Vol] 8.7 mg/dL 8.5-10.1 [facility] Work Phone: Serum or plasma creatinine m easurement (mass/volume)on 02-23-2022 Creatinine [Mass/Vol] 1.28 mg/dL 0.70-1.30 [facility] Work Phone: Comment on above: The validity of the calculated GFR & GFRAA in patients over 70 years has not been determined. Clinical correlation is essential. Serum or plasma urea nitroge n measurement (mass/volume)on 02-23-2022 Urea nitrogen [Mass/Vol] 16 mg/dL 7-18 [facility] Work Phone: Thin prep Papanicolaou smear with manual screeningon 02-23-2022 Thin prep Papanicolaou smear with manual screening 5 5-15 [facility] [place] [facility] Work Phone: Basophil percentageon 2021 Basophil percentage 2.5 mg/dL 2.5-4.9 [facility] Work Phone: Laboratory - Chemistry and C hemistry - challengeon 02-22-2022 Magnesium [Mass/Vol] 2.2 mg/dL 1.6-2.6 [facility] Work Phone: Basophil percentageon 2021 Cholesterol [Mass/Vol] 193 mg/dL <[facility] Work Phone: Comment on above: <200 mg/dL Desirable 200-240 mg/dL Borderline >240 mg/dL High Risk Triglyceride [Mass/Vol] 151 mg/dL [facility] Work Phone: Comment on above: The drugs N-Acetylcy steine and Metamizole may falsely depress this assay.Serum Triglycerides Reference Interval Normal <150 mg/dL Borderline high 150 - 199 mg/dL High 200 - 499 mg/dL Very High > or = 500 mg/dL Laboratory - Chemistry and C hemistry - challengeon 02-21-2022 Free T4 [Mass/Vol] 1.27 ng/dL 0.76-1.46 [facility] Work Phone: No Panel Informationon 02-21 Thyroid Stimulating Hormone (TSH) 7.59 uIU/mL 0.358-3.74 [facility] Work Phone: Serum or plasma cholesterol in HDL measurement (mass/volume)on 02-21-2022 Cholesterol in HDL [Mass/Vol] 29 mg/dL [facility] [place] [facility] Work Phone: Comment on above: The drugs N-Acetylcy steine and Metamizole may falsely depress this assay. Reference Range HDL <40 mg/dL Low HDL Cholesterol HDL >or= 60 mg/dL High HDL Cholesterol Serum or plasma cholesterol in VLDL measurement (mass/volume)on 02-21-2022 Cholesterol in VLDL [Mass/Vol] 30 mg/dL 5-40 [facility] [place] [facility] Work Phone: Serum or plasma low density lipoprotein (LDL) cholesterol measurement (mass/volume)on 02-21-2022 Cholesterol in LDL [Mass/Vol] 134 mg/dL 0-130 [facility] [place] [facility] Work Phone: Whole blood hemoglobin A1c/t otal hemoglobin ratio (mass fraction)on 02-21-2022 HbA1c (Bld) [Mass fraction] 5.4 % 3.8-5.6 [facility] Work Phone: Comment on above: Normal < 5.7 % Predi abetic 5.7 - 6.4 % Diabetic >or= 6.5 % Please note range changes. Absolute lymphocyte counton 02-20-2022 Lymphocytes Auto (Unsp spec) [#/Vol] 1.27 10*3/uL 0.83-4.51 [facility] [place] [facility] Work Phone: Basophil percentageon 2021 Basophils/100 WBC (Bld) 0.4 % 0-[address] [facility] Work Phone: Bilirubin [Mass/Vol] 0.50 mg/dL 0.20-1.00 [facility] Work Phone: Comment on above: For patients on eltr ombopag therapy, use of Dimension [place] TBIL is not recommended. Chloride [Moles/Vol] 104 mmol/L 98-107 [facility] Work Phone: Eosinophils/100 WBC (Bld) 1.6 % 0-5 [facility] Work Phone: Glucose [Mass/Vol] 153 mg/dL 74-106 [facility] Work Phone: Comment on above: Fasting Glucose resu lt greater than or equal to 126 mg/dL suggests DIABETES MELLITUS per A.D.A. criteria. Neutrophils (Bld) [#/Vol] 5.1 10*3/uL 2.0-7.7 [facility] [place] [facility] Work Phone: Neutrophils/100 WBC (Bld) 73.7 % 47-70 [facility] Work Phone: Potassium [Moles/Vol] 3.1 mmol/L 3.5-5.1 [facility] Work Phone: Protein [Mass/Vol] 7.6 g/dL 6.4-8.2 [facility] Work Phone: Sodium [Moles/Vol] 137 mmol/L 136-145 [facility] Work Phone: WBC (Bld) [#/Vol] 6.9 10*3/uL 4.4-11.0 [facility] Work Phone: Basophil percentage 0 SEEN /hpf [facility] Work Phone: Bilirubin Test strip Ql (U)o n 02-20-2022 Bilirubin Ql (U) Negative Negative [facility] Work Phone: Blood erythrocytes count (nu mber/volume)on 02-20-2022 RBC (Bld) [#/Vol] 4.29 10*6/uL 4.6-6.2 [facility] Work Phone: Blood hemoglobin measurement (mass/volume)on 02-20-2022 Hemoglobin (Bld) [Mass/Vol] 14.4 g/dL 13.0-16.5 [facility] Work Phone: [phone] Blood lymphocytes/100 leukoc yteson 02-20-2022 Lymphocytes/100 WBC (Bld) 18.3 % 19-41 [facility] [place] [facility] Work Phone: [phone] Blood monocytes/100 leukocyt eson 02-20-2022 Monocytes/100 WBC (Bld) 5.6 % 0-[address] [facility] Work Phone: [phone] Blood platelet mean volumeon 02-20-2022 Platelet mean volume (Bld) [Entitic vol] 9.2 fL 6.2-12.0 [facility] Work Phone: [phone] Determination of erythrocyte mean corpuscular volume (MCV)on 02-20-2022 MCV (RBC) [Entitic vol] 92.5 fL 80-[address] [facility] Work Phone: Direct bilirubinon Bilirubin.direct [Mass/Vol] 0.14 mg/dL 0.00-0.30 [facility] [place] [facility] Work Phone: [phone] Hematocrit Auto (Bld) [Volum e fraction]on 02-20-2022 Hematocrit (Bld) [Volume fraction] 39.7 % 40-54 [facility] [place] [facility] Work Phone: [phone] Ketones Test strip Ql (U)on 02-20-2022 Ketones Ql (U) 5 mg/dl Negative [facility] Work Phone: [phone] Laboratory - Chemistry and C hemistry - challengeon 02-20-2022 ALP [Catalytic activity/Vol] 90 U/L 45-117 [facility] [place] [facility] Work Phone: [phone] ALT [Catalytic activity/Vol] 19 U/L 16-61 [facility] Work Phone: [phone] CO2 [Moles/Vol] 27.0 mmol/L 21.0-32.0 [facility] Work Phone: [phone] Globulin (S) [Mass/Vol] 3.9 g/dL 2.2-4.[address] [facility] Work Phone: [phone] Lipase [Catalytic activity/Vol] 79 U/L 73-393 [facility] Work Phone: [phone] Urea nitrogen/Creatinine [Mass ratio] 16.0 mg/mg 10-20 [facility] Work Phone: [phone] Laboratory - Hematology and Cell countson 02-20-2022 Erythrocyte distribution width (RBC) [Entitic vol] 39.8 fL 35.1-43.9 [facility] Work Phone: [phone] Erythrocyte distribution width (RBC) [Ratio] 11.8 % 11.6-14.6 [facility] [place] [facility] Work Phone: [phone] Immature granulocytes/100 WBC (Bld) 0.400 % 0.0-0.9 [facility] Work Phone: [phone] Comment on above: IG% - Immature Granu locytes (promyelocytes, myelocytes and metamyelocytes) > 1% indicates that a LEFT SHIFT is Present. MCH (RBC) [Entitic mass] 33.6 pg 27.0-32.0 [facility] Work Phone: [phone] Nucleated RBC/100 WBC (Bld) [Ratio] 0 % 0-5 [facility] Work Phone: [phone] MCHC Auto (RBC) [Mass/Vol]on 02-20-2022 MCHC (RBC) [Mass/Vol] 36.3 g/dL 32-36 [facility] Work Phone: [phone] Mucus LM Ql (Urine sed)on Mucus Ql (Urine sed) 0 SEEN /hpf [facility] Work Phone: [phone] Nitrite Test strip Ql (U)on 02-20-2022 Nitrite Ql (U) Negative Negative [facility] Work Phone: [phone] No Panel Informationon 02-20 Troponin I High Sensitivity 11 pg/mL 3.0-78.0 [facility] [place] [facility] Work Phone: [phone] Comment on above: Please Note: New Guille t Units and Gender Specific Reference Ranges. For more information see Policy Stat Procedure [place] High Sensitivity Troponin (TNIH) and attachments. Estimated Creatinine Clearance Calc 43.93 ml/min [facility] [place] [facility] Work Phone: Estimated GFR (MDRD) Amer 75 mL/min >60 [facility] [place] [facility] Work Phone: Comment on above: GFR Calc Estimated GFR (MDRD) Non-Af Amer 62 mL/min >60 [facility] Work Phone: Comment on above: Non- GFR Calc Troponin I High Sensitivity 9 pg/mL 3.0-78.0 [facility] [place] [facility] Work Phone: Comment on above: Please Note: New Guille t Units and Gender Specific Reference Ranges. For more information see Policy Stat Procedure [place] High Sensitivity Troponin (TNIH) and attachments. Platelets bldon 02-20-2022 Platelets (Bld) [#/Vol] 292 10*3/uL 150-450 [facility] Work Phone: Protein Test strip Ql (U)on 02-20-2022 Protein Ql (U) Negative Negative [facility] Work Phone: [phone] Serum or plasma albumin arian urement (mass/volume)on 02-20-2022 Albumin [Mass/Vol] 3.7 g/dL 3.2-5.0 [facility] Work Phone: [phone] Serum or plasma calcium arian urement (mass/volume)on 02-20-2022 Calcium [Mass/Vol] 8.9 mg/dL 8.5-10.1 [facility] Work Phone: [phone] Serum or plasma creatinine m easurement (mass/volume)on 02-20-2022 Creatinine [Mass/Vol] 1.19 mg/dL 0.70-1.30 [facility] Work Phone: Comment on above: The validity of the calculated GFR & GFRAA in patients over 70 years has not been determined. Clinical correlation is essential. Serum or plasma urea nitroge n measurement (mass/volume)on 02-20-2022 Urea nitrogen [Mass/Vol] 19 mg/dL 7-18 [facility] Work Phone: Squamous epithelial cells de tection in urine sediment by light microscopyon 02-20-2022 Epithelial cells.squamous LM Ql (Urine sed) 0 SEEN /hpf [facility] Work Phone: Thin prep Papanicolaou smear with manual screeningon 02-20-2022 Thin prep Papanicolaou smear with manual screening 20 U/L 15-37 [facility] [place] [facility] Work Phone: Thin prep Papanicolaou smear with manual screening 6 5-15 [facility] Work Phone: Urine blood detectionon - RBC Ql (U) Negative Negative [facility] Work Phone: RBC Ql (U) 0-5 SEEN /hpf [facility] [place] [facility] Work Phone: Urine clarityon 02-20-2022 Clarity (U) Clear Clear [facility] [place] [facility] Work Phone: Urine color determinationon 02-20-2022 Color (U) Yellow Yellow [facility] [place] [facility] Work Phone: Urine glucose detectionon Glucose Ql (U) Normal mg/dl Normal [facility] Work Phone: Urine leukocyte esterase det ection by dipstickon 02-20-2022 Leukocyte esterase Test strip Ql (U) Negative Negative [facility] Work Phone: Urine pHon 02-20-2022 pH (U) 7.0 [pH] [facility] [place] [facility] Work Phone: Urine sediment bacteria coun t by microscopy (number/high power field)on 02-20-2022 Bacteria LM.HPF (Urine sed) [#/Area] 0 /[HPF] None Seen [facility] Work Phone: Urine specific gravity measu rementon 02-20-2022 Specific gravity (U) [Rel density] 1.010 [facility] [place] [facility] Work Phone: Urobilinogen Auto test strip Ql (U)on 02-20-2022 Urobilinogen Ql (U) Normal mg/dl Normal [facility] Work Phone: Absolute lymphocyte counton 02-09-2022 Lymphocytes Auto (Unsp spec) [#/Vol] 1.67 10*3/uL 0.83-4.51 [facility] Work Phone: Basophil percentageon 2021 Basophil percentage 2.2 mg/dL 2.5-4.9 [facility] Work Phone: Basophils/100 WBC (Bld) 0.7 % 0-[address] [facility] Work Phone: Bilirubin [Mass/Vol] 0.50 mg/dL 0.20-1.00 [facility] Work Phone: Comment on above: For patients on eltr ombopag therapy, use of Dimension [place] TBIL is not recommended. Chloride [Moles/Vol] 109 mmol/L 98-107 [facility] Work Phone: Eosinophils/100 WBC (Bld) 11.3 % 0-5 [facility] [place] [facility] Work Phone: Glucose [Mass/Vol] 95 mg/dL 74-106 [facility] Work Phone: Neutrophils (Bld) [#/Vol] 3.1 10*3/uL 2.0-7.7 [facility] Work Phone: Neutrophils/100 WBC (Bld) 51.3 % 47-70 [facility] Work Phone: Potassium [Moles/Vol] 3.4 mmol/L 3.5-5.1 [facility] Work Phone: Protein [Mass/Vol] 7.2 g/dL 6.4-8.2 [facility] Work Phone: Sodium [Moles/Vol] 140 mmol/L 136-145 [facility] Work Phone: WBC (Bld) [#/Vol] 6.0 10*3/uL 4.4-11.0 [facility] Work Phone: Blood erythrocytes count (nu mber/volume)on 02-09-2022 RBC (Bld) [#/Vol] 3.91 10*6/uL 4.6-6.2 [facility] Work [facility]: [phone] Blood hemoglobin measurement (mass/volume)on 02-09-2022 Hemoglobin (Bld) [Mass/Vol] 13.1 g/dL 13.0-16.5 [facility] Work Phone: [phone] Blood lymphocytes/100 leukoc yteson 02-09-2022 Lymphocytes/100 WBC (Bld) 27.7 % 19-41 [facility] Work Phone: [phone] Blood monocytes/100 leukocyt eson 02-09-2022 Monocytes/100 WBC (Bld) 8.8 % 0-[address] [facility] Work Phone: [phone] Blood platelet mean volumeon 02-09-2022 Platelet mean volume (Bld) [Entitic vol] 9.4 fL 6.2-12.0 [facility] [place] [facility] Work Phone: [phone] Determination of erythrocyte mean corpuscular volume (MCV)on 02-09-2022 MCV (RBC) [Entitic vol] 94.9 fL 80-[address] [facility] Work Phone: [phone] Hematocrit Auto (Bld) [Volum e fraction]on 02-09-2022 Hematocrit (Bld) [Volume fraction] 37.1 % 40-54 [facility] [place] [facility] Work Phone: [phone] Laboratory - Chemistry and C hemistry - challengeon 02-09-2022 ALP [Catalytic activity/Vol] 89 U/L 45-117 [facility] [place] [facility] Work Phone: [phone] ALT [Catalytic activity/Vol] 22 U/L 16-61 [facility] [place] [facility] Work Phone: [phone] CO2 [Moles/Vol] 28.0 mmol/L 21.0-32.0 [facility] Work Phone: [phone] Free T4 [Mass/Vol] 1.05 ng/dL 0.76-1.46 [facility] Work Phone: [phone] Globulin (S) [Mass/Vol] 3.7 g/dL 2.2-4.[address] [facility] Work Phone: [phone] Magnesium [Mass/Vol] 2.3 mg/dL 1.6-2.6 [facility] Work Phone: [phone] Urea nitrogen/Creatinine [Mass ratio] 17.2 mg/mg 10-20 [facility] Work Phone: [phone] Laboratory - Hematology and Cell countson 02-09-2022 Erythrocyte distribution width (RBC) [Entitic vol] 42.2 fL 35.1-43.9 [facility] Work Phone: [phone] Erythrocyte distribution width (RBC) [Ratio] 12.2 % 11.6-14.6 [facility] Work Phone: [phone] Immature granulocytes/100 WBC (Bld) 0.200 % 0.0-0.9 [facility] Work Phone: [phone] Comment on above: IG% - Immature Granu locytes (promyelocytes, myelocytes and metamyelocytes) > 1% indicates that a LEFT SHIFT is Present. MCH (RBC) [Entitic mass] 33.5 pg 27.0-32.0 [facility] Work Phone: [phone] Nucleated RBC/100 WBC (Bld) [Ratio] 0 % 0-5 [facility] Work Phone: [phone] MCHC Auto (RBC) [Mass/Vol]on 02-09-2022 MCHC (RBC) [Mass/Vol] 35.3 g/dL 32-36 [facility] Work Phone: [phone] Panel Informationon 02-09 Estimated Creatinine Clearance Calc 46.69 ml/min [facility] Work Phone: [phone] Estimated GFR (MDRD) Amer 78 mL/min >60 [facility] Work Phone: [phone] Comment on above: GFR Calc Estimated GFR (MDRD) Non-Af Amer 64 mL/min >60 [facility] Work Phone: [phone] Comment on above: Non- GFR Calc Thyroid Stimulating Hormone (TSH) 10.40 uIU/mL 0.358-3.74 [facility] Work Phone: Platelets bldon 02-09-2022 Platelets (Bld) [#/Vol] 272 10*3/uL 150-450 [facility] Work Phone: Serum or plasma albumin arian urement (mass/volume)on 02-09-2022 Albumin [Mass/Vol] 3.5 g/dL 3.2-5.0 [facility] Work Phone: Serum or plasma albumin/glob ulin mass ratioon 02-09-2022 Albumin/Globulin [Mass ratio] 0.9 {ratio} 0.9-2.4 [facility] Work Phone: Serum or plasma calcium arian urement (mass/volume)on 02-09-2022 Calcium [Mass/Vol] 8.8 mg/dL 8.5-10.1 [facility] Work Phone: Serum or plasma creatinine m easurement (mass/volume)on 02-09-2022 Creatinine [Mass/Vol] 1.16 mg/dL 0.70-1.30 [facility] Work Phone: Comment on above: The validity of the calculated GFR & GFRAA in patients over 70 years has not been determined. Clinical correlation is essential. Serum or plasma urea nitroge n measurement (mass/volume)on 02-09-2022 Urea nitrogen [Mass/Vol] 20 mg/dL 7-18 [facility] Work Phone: Thin prep Papanicolaou smear with manual screeningon 02-09-2022 Thin prep Papanicolaou smear with manual screening 19 U/L 15-37 [facility] Work Phone: Thin prep Papanicolaou smear with manual screening 3 5-15 [facility] Work Phone: Radiologyon 01-28-2022 US Extremity Normal OW-Vfjlqnf-I [facility] Work Phone: Serum or plasma cortisol karon surement (mass/volume)on 01-20-2022 Cortisol [Mass/Vol] 6.50 ug/dL 3.44-22.45 [facility] Work Phone: Comment on above: Adult (AM) 5.27 - 22 .45 ug/dL Adult (PM) 3.44 - 16.76 ug/dLPlease note revised CORTISOL reference range effective 2020. Falls Risk Screeningon 01-13 Fall risk assessment a) No falls within the last year YD-Iatr-Fwjp sly-Alyson reagan Work Phone: No Panel Informationon 10-27 Parathyroid Hormone (Intact) 55.5 pg/mL 18.4-80.1 [facility] [employer] mix RAST testo n 10-06-2021 LDH [Catalytic activity/Vol] 243 U/L High 87-241 [facility] Thin prep Papanicolaou smear with manual screeningon 10-06-2021 Thin prep Papanicolaou smear with manual screening 243 U/L 87-241 [facility] No Panel Informationon 08-05 Haptoglobin 114 mg/dL 34-355 [facility] Comment on above: Performed at: [facility] [address] Director: Jair Lewis PhD, Phone: [phone] Prostate Specific Antigen Total 4.79 ng/mL 0.0-4.0 [facility] Work Phone: Comment on above: This test was perfor med using the TPSA assay method [facility]. Values obtained with differentassay methods cannot be used interchangably.When changing PSA assays in the course of monitoring apatient, additional sequential testing should be carriedout to confirm baseline values. General Foods mix RAST testo n 07-15-2021 Urine Random Microalbumin 5.9 mg/L NO RANGE EST. [facility] No Panel Informationon 07-15 Urine Microalbumin/Creatinine Ratio 5.5 mg/g CRE <30 [facility] Thin prep Papanicolaou smear with manual screeningon 07-15-2021 Thin prep Papanicolaou smear with manual screening 5.9 mg/L NO RANGE EST. [facility] Urine creatinine measurement (mass/volume)on 07-15-2021 Creatinine (U) [Mass/Vol] 107.00 mg/dL NO RANGE EST. [facility] Laboratory - Hematology and Cell countson 05-27-2021 Erythrocyte distribution width (RBC) [Ratio] 13.0 % See Below BL-Zselogq-R [facility] Work Phone: [phone] Comment on above: Reference Range: 11. 5 - 14.5 Hematocrit (Bld) [Volume fraction] 42.0 % See Below OW-Dwtgtnx-Y [facility] Work Phone: [phone] Comment on above: Reference Range: 41. 0 - 52.0 Hemoglobin (Bld) [Mass/Vol] 13.5 g/dL See Below XZ-Vifpnlm-B [facility] Work Phone: [phone] Comment on above: Reference Range: 13. 5 - 17.5 MCHC (RBC) [Mass/Vol] 32.1 g/dL See Below MG- Surgery-R [facility] Work Phone: [phone] Comment on above: Reference Range: 32. 0 - 36.0 MCV (RBC) [Entitic vol] 99 fL 80 - 100 M G-Surgery-R [facility] Work Phone: [phone] Platelets (Bld) [#/Vol] 373 10*3/uL 150 - 450 QO-Xduzvwf-Y [facility] Work Phone: [phone] RBC (Bld) [#/Vol] 4.24 {x10E12/L} below low threshold See Below ME-Xxjqrph-D [facility] Work Phone: [phone] Comment on above: Reference Range: 4.5 0 - 5.90 WBC (Bld) [#/Vol] 9.2 10*3/uL 4.4 - 11.3 MG-Manuel ronak-R [facility] Work Phone: No Panel Informationon 05-27 0.0 {/100_WBC} 0.0-0.0 MG-Surgery -R [facility] Work Phone: Laboratory - Chemistry and C hemistry - challengeon 05-26-2021 Anion gap [Moles/Vol] 13 mmol/L 10 - 20 MG- Surgery-R [facility] Work Phone: Calcium [Mass/Vol] 8.9 mg/dL 8.6 - 10.6 MG-Manuel ronak-R [facility] Work Phone: [phone] Chloride [Moles/Vol] 101 mmol/L 98 - 107 MG-S urgery-R [facility] Work Phone: CO2 [Moles/Vol] 26 mmol/L 21 - 32 MG-Surger y-R [facility] Work Phone: Creatinine [Mass/Vol] 0.96 mg/dL See Below MG- Surgery-R [facility] Work Phone: Comment on above: Reference Range: 0.5 0 - 1.30 Glucose [Mass/Vol] 104 mg/dL above high threshold 74 - 99 VT-Upysljr-U [facility] Work Phone: Potassium [Moles/Vol] 3.7 mmol/L 3.5 - 5.3 MG- Surgery-R [facility] Work Phone: Sodium [Moles/Vol] 136 mmol/L 136 - 145 MG-Manuel ronak-R Sitrionmond 150 Work Phone: Urea nitrogen [Mass/Vol] 18 mg/dL 6 - 23 JP-Ltmulcd-S [facility] Work Phone: Laboratory - Hematology and Cell countson 05-26-2021 Erythrocyte distribution width (RBC) [Ratio] 12.9 % See Below MN-Ujulwlj-F [facility] Work Phone: Comment on above: Reference Range: 11. 5 - 14.5 Hematocrit (Bld) [Volume fraction] 39.9 % below low threshold See Below TR-Uphdmpl-C [facility] Work Phone: Comment on above: Reference Range: 41. 0 - 52.0 Hemoglobin (Bld) [Mass/Vol] 13.0 g/dL below low threshold See Below SH-Hycavtt-Q [facility] Work Phone: Comment on above: Reference Range: 13. 5 - 17.5 MCHC (RBC) [Mass/Vol] 32.6 g/dL See Below MG- Surgery-R [facility] Work Phone: Comment on above: Reference Range: 32. 0 - 36.0 MCV (RBC) [Entitic vol] 98 fL 80 - 100 M G-Surgery-R [facility] Work Phone: [phone] Platelets (Bld) [#/Vol] 295 10*3/uL 150 - 450 BB-Yogpbqh-X [facility] Work Phone: [phone] RBC (Bld) [#/Vol] 4.08 {x10E12/L} below low threshold See Below QW-Fybrfud-P [facility] Work Phone: Comment on above: Reference Range: 4.5 0 - 5.90 WBC (Bld) [#/Vol] 8.1 10*3/uL 4.4 - 11.3 MG-Manuel ronak-R [facility] Work Phone: Magnesium, Serumon Magnesium [Mass/Vol] 2.38 mg/dL See Below MG-S urgery-R [facility] Work Phone: Comment on above: Reference Range: 1.6 0 - 2.40 No Panel Informationon 05-26 >60 >60 OE-Tsatils-T [facility] Work Phone: Comment on above: CALCULATIONS OF MARGARITA MATED GFR ARE PERFORMED USING THE MDRD STUDY EQUATION FOR THE IDMS-TRACEABLE CREATININE METHODS. CLIN CHEM 2007;53:766-72 0.0 {/100_WBC} 0.0-0.0 MG-Surgery -R [facility] Work Phone: Radiologyon 05-26-2021 US Extremity limited Normal MG-S urgery-R [facility] Work Phone: Laboratory - Chemistry and C hemistry - challengeon 05-25-2021 Anion gap [Moles/Vol] 11 mmol/L 10 - 20 MG- Surgery-R [facility] Work Phone: Calcium [Mass/Vol] 8.5 mg/dL below low threshold 8.6 - 10.6 TG-Rownjsh-P [facility] Work Phone: [phone] Chloride [Moles/Vol] 104 mmol/L 98 - 107 MG-S urgery-R [facility] Work Phone: [phone] CO2 [Moles/Vol] 25 mmol/L 21 - 32 MG-Surger y-R [facility] Work Phone: [phone] Creatinine [Mass/Vol] 0.97 mg/dL See Below MG- Surgery-R [facility] Work Phone: Comment on above: Reference Range: 0.5 0 - 1.30 Glucose [Mass/Vol] 132 mg/dL above high threshold 74 - 99 GX-Vibylxh-X [facility] Work Phone: [phone] Potassium [Moles/Vol] 3.6 mmol/L 3.5 - 5.3 MG- Surgery-R [facility] Work Phone: [phone] Sodium [Moles/Vol] 136 mmol/L 136 - 145 MG-Manuel ronak-R Sitrion[facility] Work Phone: [phone] Urea nitrogen [Mass/Vol] 16 mg/dL 6 - 23 XN-Zvcruyy-Q [facility] Work Phone: [phone] Laboratory - Hematology and Cell countson 05-25-2021 Erythrocyte distribution width (RBC) [Ratio] 12.8 % See Below ZK-Iowskat-G [facility] Work Phone: [phone] Comment on above: Reference Range: 11. 5 - 14.5 Hematocrit (Bld) [Volume fraction] 40.8 % below low threshold See Below IA-Ecbspvw-M [facility] Work Phone: [phone] Comment on above: Reference Range: 41. 0 - 52.0 Hemoglobin (Bld) [Mass/Vol] 13.6 g/dL See Below RK-Wolrgkw-E [facility] Work Phone: Comment on above: Reference Range: 13. 5 - 17.5 MCHC (RBC) [Mass/Vol] 33.3 g/dL See Below MG- Surgery-R [facility] Work Phone: Comment on above: Reference Range: 32. 0 - 36.0 MCV (RBC) [Entitic vol] 98 fL 80 - 100 M G-Surgery-R [facility] Work Phone: Platelets (Bld) [#/Vol] 247 10*3/uL 150 - 450 UN-Nkwpxlf-G [facility] Work Phone: RBC (Bld) [#/Vol] 4.18 {x10E12/L} below low threshold See Below SW-Joomtub-V [facility] Work Phone: Comment on above: Reference Range: 4.5 0 - 5.90 WBC (Bld) [#/Vol] 11.5 10*3/uL above high threshold 4.4 - 11.3 UN-Pgaqosc-N [facility] Work Phone: Magnesium, Serumon Magnesium [Mass/Vol] 2.12 mg/dL See Below MG-S urgery-R [facility] Work Phone: Comment on above: Reference Range: 1.6 0 - 2.40 No Panel Informationon 05-25 >60 >60 KL-Llsqiup-P [facility] Work Phone: Comment on above: CALCULATIONS OF MARGARITA MATED GFR ARE PERFORMED USING THE MDRD STUDY EQUATION FOR THE IDMS-TRACEABLE CREATININE METHODS. CLIN CHEM 2007;53:766-72 0.0 {/100_WBC} 0.0-0.0 MG-Surgery -R [facility] Work Phone: Vancomycin Level, Troughon 0 05-25-2021 Vancomycin trough [Mass/Vol] 4.5 ug/mL below low threshold 5.0 - 20.0 TU-Oaqxzor-X [facility] Work Phone: Comment on above: Vancomycin levels sh ould be interpreted in conjunction with the dose, disease being treated, vancomycin SIDDHARTH, time of draw (trough concentrations should be obtained just before the next dose at steady-state), and other clinical information. Trough concentrations of 15-20 ug/mL are desired for severe infections. Ref.: Am J Health-Syst Pharm 66: 83-98, 2009. Complete Blood Count + Diffe rentialon 05-23-2021 Basophils/100 WBC (Bld) 0.2 % 0.0 - 2.0 M G-Surgery-R [facility] Work Phone: Erythrocyte distribution width (RBC) [Ratio] 12.9 % See Below QZ-Erqhtkc-L [facility] Work Phone: [phone] Comment on above: Reference Range: 11. 5 - 14.5 Hematocrit (Bld) [Volume fraction] 41.0 % See Below QT-Rjaawuv-V [facility] Work Phone: [phone] Comment on above: Reference Range: 41. 0 - 52.0 Hemoglobin (Bld) [Mass/Vol] 14.5 g/dL See Below HR-Yqjsiar-D [facility] Work Phone: Comment on above: Reference Range: 13. 5 - 17.5 Lymphocytes/100 WBC (Bld) 8.0 % See Below QZ-Ctienzz-Z [facility] Work Phone: Comment on above: Reference Range: 13. 0 - 44.0 MCHC (RBC) [Mass/Vol] 35.4 g/dL See Below MG- Surgery-R [facility] Work Phone: Comment on above: Reference Range: 32. 0 - 36.0 MCV (RBC) [Entitic vol] 92 fL 80 - 100 M G-Surgery-R [facility] Work Phone: Monocytes/100 WBC (Bld) 6.3 % 2.0 - 10.0 M G-Surgery-R [facility] Work Phone: Neutrophils/100 WBC (Bld) 84.3 % See Below JY-Fofpams-N [facility] Work Phone: Comment on above: Reference Range: 40. 0 - 80.0 Platelets (Bld) [#/Vol] 300 10*3/uL 150 - 450 ET-Ashtoyd-G [facility] Work Phone: RBC (Bld) [#/Vol] 4.46 {x10E12/L} below low threshold See Below UL-Gjitopm-L [facility] Work Phone: [phone] Comment on above: Reference Range: 4.5 0 - 5.90 WBC (Bld) [#/Vol] 12.3 10*3/uL above high threshold 4.4 - 11.3 UD-Lfvccam-J [facility] Work Phone: [phone] Complete Blood Count + Differential 0.03 {x10E9/L} See Below UT-Iptajbx-L [facility] Work Phone: [phone] Comment on above: Reference Range: 0.0 0 - 0.10 Complete Blood Count + Differential 0.08 {x10E9/L} See Below PP-Fltfmcq-S [facility] Work Phone: [phone] Comment on above: Reference Range: 0.0 0 - 0.40 Complete Blood Count + Differential 0.77 {x10E9/L} See Below BK-Mggrmmb-K [facility] Work Phone: [phone] Comment on above: Reference Range: 0.0 5 - 0.80 Complete Blood Count + Differential 0.98 {x10E9/L} See Below VN-Tgsoqvl-P [facility] Work Phone: [phone] Comment on above: Reference Range: 0.8 0 - 3.00 Complete Blood Count + Differential 10.34 {x10E9/L} above high threshold See Below XV-Ggeplha-G [facility] Work Phone: [phone] Comment on above: Reference Range: 1.6 0 - 5.50 Complete Blood Count + Differential 0.7 % 0.0 - 6.0 OL-Oikbohd-L [facility] Work Phone: [phone] Complete Blood Count + Differential 0.5 % 0.0 - 0.9 XW-Bgatteg-M [facility] Work Phone: [phone] Comment on above: Immature Granulocyte Count (IG) includes promyelocytes, myelocytes and metamyelocytes but does not include bands. Percent differential counts (%) should be interpreted in the context of the absolute cell counts (cells/L). Complete Blood Count + Differential 0.0 {/100_WBC} 0.0-0.0 SH-Hepzjtb-F [facility] Work Phone: Coronavirus 2019 RNA by PCR, Symptomaticon 05-23-2021 Coronavirus 2019 RNA by PCR, Symptomatic Not detected Normal See Below KA-Hiajjyu-P [facility] Work Phone: [phone] Comment on above: SOURCE: Nasal, Nasop haryngealReference Range: Not Detected.This assay is designed to detect the ORF1ab and/or S genes of SARS-CoV-2 via nucleic acid amplification. A Not Detected result does not preclude 2019-nCoV infection since the adequacy of sample collection and/or low viral burden may result in presence of viral nucleic acids below the clinical sensitivity of this test method. Fact sheet for providers: www.fda.gov/media/944176/downloadFact sheet for patients: www.fda.gov/media/424517/downloadThis test has received FDA Emergency Use Authorization (EUA) and has been verified by [facility] ([facility]). This test is only authorized for the duration of time that circumstances exist to justify the authorization of the emergency use of in vitro diagnostic tests for the detection of SARS-CoV-2 virus and/or diagnosis of COVID-19 infection under section 564(b)(1) of the Act, 21 U.S.C. 360bbb-3(b)(1), unless the authorization is terminated or revoked sooner. [facility] is certified under CLIA-88 as qualified to perform high complexity testing. Testing is performed in the [facility] laboratories located at [address] [place] [address]. Cult, Bloodon 05-23-2021 Bacteria identified Cx Nom (Bld) XX-Bhnckjy-T [facility] Work Phone: [phone] identified Cx Nom (Bld) IC-Lklhrnx-R [facility] Work Phone: [phone] Cult, Misc + smearon 021 Bacteria identified Cx Nom (Unsp spec) Abnormal NO-Wuknjpd-C [facility] Work Phone: [phone] Laboratory - Chemistry and C hemistry - challengeon 05-23-2021 Anion gap [Moles/Vol] 12 mmol/L 10 - 20 MG- Surgery-R [facility] Work Phone: [phone] Calcium [Mass/Vol] 8.2 mg/dL below low threshold 8.6 - 10.6 UQ-Pxtysug-F [facility] Work Phone: [phone] Chloride [Moles/Vol] 102 mmol/L 98 - 107 MG-S urgery-R [facility] Work Phone: [phone] CO2 [Moles/Vol] 23 mmol/L 21 - 32 MG-Surger y-R [facility] Work Phone: [phone] Creatinine [Mass/Vol] 1.14 mg/dL See Below MG- Surgery-R [facility] Work Phone: [phone] Comment on above: Reference Range: 0.5 0 - 1.30 Glucose [Mass/Vol] 179 mg/dL above high threshold 74 - 99 AR-Pucpszy-P [facility] Work Phone: [phone] Potassium [Moles/Vol] 3.5 mmol/L 3.5 - 5.3 MG- Surgery-R [facility] Work Phone: [phone] Sodium [Moles/Vol] 133 mmol/L below low threshold 136 - 145 FI-Datiwdd-L [facility] Work Phone: [phone] Urea nitrogen [Mass/Vol] 22 mg/dL 6 - 23 LH-Vlvfydb-H [facility] Work Phone: [phone] Albumin BCP dye [Mass/Vol] 4.1 g/dL 3.4 - 5.0 QH-Nhvhqwu-Y [facility] Work Phone: [phone] ALP [Catalytic activity/Vol] 94 U/L 33 - 136 GR-Sdemxow-R [facility] Work Phone: [phone] ALT With P-5'-P [Catalytic activity/Vol] 15 U/L 10 - 52 MG-Surg kitty-R [facility] Work Phone: [phone] Comment on above: Patients treated wit h Sulfasalazine may generate falsely decreased results for ALT. Anion gap [Moles/Vol] 14 mmol/L 10 - 20 MG- Surgery-R [facility] Work Phone: [phone] AST With P-5'-P [Catalytic activity/Vol] 19 U/L 9 - 39 MG-Surg kitty-R [facility] Work Phone: [phone] Bilirubin [Mass/Vol] 1.2 mg/dL 0.0 - 1.2 MG-S urgery-R [facility] Work Phone: [phone] Calcium [Mass/Vol] 9.5 mg/dL 8.6 - 10.6 MG-Manuel ronak-R [facility] Work Phone: [phone] Chloride [Moles/Vol] 103 mmol/L 98 - 107 MG-S urgery-R [facility] Work Phone: [phone] CO2 [Moles/Vol] 26 mmol/L 21 - 32 MG-Surger y-R [facility] Work Phone: [phone] Creatinine [Mass/Vol] 0.97 mg/dL See Below MG- Surgery-R [facility] Work Phone: [phone] Comment on above: Reference Range: 0.5 0 - 1.30 Glucose [Mass/Vol] 101 mg/dL above high threshold 74 - 99 OB-Xnozamn-H [facility] Work Phone: [phone] Potassium [Moles/Vol] 3.5 mmol/L 3.5 - 5.3 MG- Surgery-R [facility] Work Phone: [phone] Protein [Mass/Vol] 7.3 g/dL 6.4 - 8.2 MG-Manuel ronak-R [facility] Work Phone: [phone] Sodium [Moles/Vol] 139 mmol/L 136 - 145 MG-Manuel ronak-R [facility] Work Phone: [phone] Urea nitrogen [Mass/Vol] 21 mg/dL 6 - 23 VZ-Wemiyti-L [facility] Work Phone: [phone] Anion gap (Bld) [Moles/Vol] 11 mmol/L 10 - 25 SA-Yqtniqp-Z [facility] Work Phone: [phone] Calcium.ionized (Bld) [Moles/Vol] 1.20 mmol/L See Below BV-Ljrvsfp-Y [facility] Work Phone: [phone] Comment on above: Reference Range: 1.1 0 - 1.33 Chloride [Moles/Vol] 103 mmol/L 98 - 107 MG-S urgery-R [facility] Work Phone: [phone] CO2 (BldV) [Partial pressure] 44 mm[Hg] 41 - 51 TI-Qysbmjh-W [facility] Work Phone: [phone] Glucose [Mass/Vol] 106 mg/dL above high threshold 74 - 99 OI-Cwirziz-O [facility] Work Phone: HCO3 (Bld) [Moles/Vol] 27.3 mmol/L above hig h threshold See Below RB-Gxzbowk-M [facility] Work Phone: Comment on above: Reference Range: 22. 0 - 26.0 Lactate [Moles/Vol] 1.4 mmol/L 0.4 - 2.0 MG-Banda rgery-R [facility] Work Phone: Oxygen (BldV) [Partial pressure] 25 mm[Hg] below low threshold 35 - 45 LU-Rvldlii-Q [facility] Work Phone: pH (BldV) 7.40 [pH] See Below RG-Hakrhyr-U [facility] Work Phone: Comment on above: Reference Range: 7.3 3 - 7.43 Potassium [Moles/Vol] 3.8 mmol/L 3.5 - 5.3 MG- Surgery-R [facility] Work Phone: Sodium [Moles/Vol] 137 mmol/L 136 - 145 MG-Manuel ronak-R [facility] Work Phone: Laboratory - Hematology and Cell countson 05-23-2021 Erythrocyte distribution width (RBC) [Ratio] 13.0 % See Below VG-Afdddyb-Y [facility] Work Phone: Comment on above: Reference Range: 11. 5 - 14.5 Hematocrit (Bld) [Volume fraction] 35.0 % below low threshold See Below QX-Dhfyuty-C [facility] Work Phone: Comment on above: Reference Range: 41. 0 - 52.0 Hemoglobin (Bld) [Mass/Vol] 12.7 g/dL below low threshold See Below IS-Owdhsuj-G [facility] Work Phone: Comment on above: Reference Range: 13. 5 - 17.5 MCHC (RBC) [Mass/Vol] 36.3 g/dL above high threshold See Below YP-Czcfvke-N [facility] Work Phone: Comment on above: Reference Range: 32. 0 - 36.0 MCV (RBC) [Entitic vol] 91 fL 80 - 100 M G-Surgery-R [facility] Work Phone: [phone] Platelets (Bld) [#/Vol] 251 10*3/uL 150 - 450 SH-Xmgravq-I [facility] Work Phone: [phone] RBC (Bld) [#/Vol] 3.83 {x10E12/L} below low threshold See Below KH-Dripcwm-U [facility] Work Phone: Comment on above: Reference Range: 4.5 0 - 5.90 WBC (Bld) [#/Vol] 12.9 10*3/uL above high threshold 4.4 - 11.3 ZF-Dcfnbex-A [facility] Work Phone: [phone] Hematocrit (Bld) [Volume fraction] 44.0 % See Below XO-Rrpakzt-I [facility] Work Phone: [phone] Comment on above: Reference Range: 41. 0 - 52.0 Hemoglobin (Bld) [Mass/Vol] 15.0 g/dL See Below WV-Nxhgmhy-L [facility] Work Phone: [phone] Comment on above: Reference Range: 13. 5 - 17.5 Magnesium, Serumon Magnesium [Mass/Vol] 1.84 mg/dL See Below MG-S urgery-R [facility] Work Phone: Comment on above: Reference Range: 1.6 0 - 2.40 No Panel Informationon 05-23 >60 >60 TG-Usvyhzz-Y [facility] Work Phone: Comment on above: CALCULATIONS OF MARGARITA MATED GFR ARE PERFORMED USING THE MDRD STUDY EQUATION FOR THE IDMS-TRACEABLE CREATININE METHODS. CLIN CHEM 2007;53:766-72 0.0 {/100_WBC} 0.0-0.0 MG-Surgery -R [facility] Work Phone: >[phone] DG-Cenianm-I [facility] Work Phone: Comment on above: CALCULATIONS OF MARGARITA MATED GFR ARE PERFORMED USING THE MDRD STUDY EQUATION FOR THE IDMS-TRACEABLE CREATININE METHODS. CLIN CHEM 2007;53:766-72 2.0 mmol/L -2.0 - 3.0 JU-Wzzqcro-T [facility] Work Phone: [phone] % below low threshold 45 - 75 OF-Wsrywyb-Q [facility] Work Phone: [phone] {degrees_C} MG-Surge ry-R [facility] Work Phone: [phone] Comment on above: NOTE: PATIENT RESULT S ARE NOT CORRECTED FOR TEMPERATURE. [email or web address] e?LnqghhtDU=[id number]&Da te=23-05-2021&Time=18%3a 02%3a53%3a00&TestType=EC G&Site=1&OutputType=PDF& Ext=PDF FF-Ijkjbfy-U [facility] Work Phone: 1 Please see ED Provid er Note for formal interpretation FN-Zgyhnit-C [facility] Work Phone: [phone] TW-Nllwmqr-J [facility] Work Phone: [phone] HG-Tqbydvi-L [facility] Work Phone: [phone] TG-Dfdabjq-B [facility] Work Phone: [phone] MU-Pjsmapa-F [facility] Work Phone: [phone] IY-Nbwbzud-W [facility] Work Phone: [phone] MK-Odibmxo-S [facility] Work Phone: [phone] IA-Mshrrce-F [facility] Work Phone: [phone] OT-Xgpjzjr-U [facility] Work Phone: [phone] ZO-Nwnxbvb-G [facility] Work Phone: [phone] FK-Dvtbzmw-M [facility] Work Phone: [phone] HO-Pyddgsl-T [facility] Work Phone: [phone] II-Momszvk-G [facility] Work Phone: [phone] UX-Onhytsa-Z [facility] Work Phone: [phone] AS-Sfqipdd-N [facility] Work Phone: LYMPH GLANDon 05-07-2021 LYMPH GLAND Patient Name: EMPERATRIZ EPPS STUDY: LYMPH GLAND; 05/07/2021 9:36 am 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 ACCESSION NUMBER(S): [id number] ORDERING CLINICIAN: HUSSEIN BENNETT TECHNIQUE: DIVISION OF NUCLEAR MEDICINE RADIONUCLIDE SENTINEL LYMPH NODE LYMPHOSCINTIGRAPHY A total of 0.5 millicuries of Tc-99m tilmanocept (Dine perfect) was injected intradermally in a circumferential pattern surrounding the patient's right heel melanoma biopsy site. Sequential images were then acquired. SPECT/low-dose CT imaging of the pelvis an of the knees were acquired. FINDINGS: Irregular, linear activity extended superiorly from the right heel injection site along the right posterior calf, popliteal fossa and posterior thigh. There was a more discrete focus of radiotracer accumulation posterior to the distal femoral diaphysis, with what appeared to be a small corresponding lymph node. SPECT/CT images of the pelvis revealed radiation seeds in the region of the prostate bed. Activity was seen in several right groin lymph nodes, but these are distal to the sentinel lymph node site as described above. IMPRESSION: Successful sentinel lymph node localization posterior to the right distal femoral diaphysis. This was discussed with Dr. Bennett at the time of image interpretation. Caisson Worker saved screen images were sent to PACS. This study was interpreted at [facility]. Electronically signed by: BRUNILDA MEJIA MD [facility] NM Lymph Glandon 05-07-2021 NM Lymph node Views Normal [facility] Work Phone: NM Tumor Loc Spec/CTon 05-07 NM Tumor Loc Spec/CT Normal [facility]P last[facility] Work Phone: No Panel Informationon 05-07 [facility]-Dazuwrp-L [facility] Work Phone: Order Reconciliationon 05-07 Order Reconciliation Page 1 Discharge Reconciliation Document Reconciliation Type: Discharge requested on behalf of Natasha Garcia (Resident) done by Natasha Garcia ( (Resident)) Discharge - Reconciliation: 07-May-2021 14:11 by: Natasha Garcia ( (Resident)) Home Medications EnteredHOME MEDICATIONS AT DISCHARGE DateReconciliation Comment/ Additional Information bisoprolol 5 mg oral tablet 1 tab(s) oral once a day 07-May-2021 09:50 bisoprolol 5 mg oral tablet 1 tab(s) oral once a day 07-May-2021 09:50 bisoprolol 5 mg oral tablet is continued as bisoprolol 5 mg oral tablet Ecotrin Adult Low Strength 81 mg oral delayed release tablet 1 tab(s) orally once a day 07-May-2021 06:25 Ecotrin Adult Low Strength 81 mg oral delayed release tablet 1 tab(s) orally once a day 07-May-2021 06:25 Ecotrin Adult Low Strength 81 mg oral delayed release tablet is continued as Ecotrin Adult Low Strength 81 mg oral delayed release tablet glucosamine 500 mg oral capsule 1 cap(s) orally once a day 07-May-2021 06:23 glucosamine 500 mg oral capsule 1 cap(s) orally once a day 07-May-2021 06:23 glucosamine 500 mg oral capsule is continued as glucosamine 500 mg oral capsule lidocaine 5% topical ointment 07-May-2021 06:21 lidocaine 5% topical ointment 07-May-2021 06:21 lidocaine 5% topical ointment is continued as lidocaine 5% topical ointment multivitamin 07-May-2021 06:26 multivitamin 07-May-2021 06:26 multivitamin is continued as multivitamin omeprazole 40 mg oral delayed release capsule 1 cap(s) orally once a day 07-May-2021 06:25 omeprazole 40 mg oral delayed release capsule 1 cap(s) orally once a day 07-May-2021 06:25 omeprazole 40 mg oral delayed release capsule is continued as omeprazole 40 mg oral delayed release capsule prostagenix 07-May-2021 06:24 prostagenix 07-May-2021 06:24 prostagenix is continued as prostagenix quinapril 20 mg oral tablet 1 tab(s) orally once a day 07-May-2021 06:22 quinapril 20 mg oral tablet 1 tab(s) orally once a day 07-May-2021 06:22 quinapril 20 mg oral tablet is continued as quinapril 20 mg oral tablet Tylenol 07-May-2021 06:26 Tylenol 07-May-2021 06:26 Tylenol is continued as Tylenol Current OrdersDateHOME MEDICATIONS AT DISCHARGE DateReconciliation Comment/ Additional Information Albuterol 2.5 mg/ 3 mL Nebulizer Soln (PROVENTIL)DOSE = 3 mL Inhalation Once via Nebulizer, PRN Wheezing (PACU)Clinician Notes: Cee-operative order ONLY 07-May-2021 08:25 Albuterol 2.5 mg/ 3 mL Nebulizer Soln is not required HYDROmorphone Injectable (DILAUDID)DOSE = 0.2 mg IntraVenous Push Every 5 Minutes, PRN Pain - Mod (4-6) (PACU) if unable to take oralClinician Notes: Cee-operative order ONLYMax total of 4 mg regardless of dose. 07-May-2021 08:25 HYDROmorphone Injectable is not required HYDROmorphone Injectable (DILAUDID)DOSE = 0.4 mg IntraVenous Push Every 5 Minutes, PRN Pain - Severe (7-10) (PACU)Clinician Notes: Cee-operative order ONLYMax total of 4 mg regardless of dose. 07-May-2021 08:25 HYDROmorphone Injectable is not required Lactated Ringers Infusion IV Bag Volume = 1,000 mL Run at: 100 mL/hr IntraVenous Clinician Notes: Cee-operative order ONLY 07-May-2021 08:25 Lactated Ringers Infusion is not required Midazolam Injectable (VERSED)DOSE = 1 mg IntraVenous Push Once, PRN AnxietyClinician Notes: Cee-operative order ONLY 07-May-2021 08:25 Midazolam Injectable is not required Ondansetron Injectable (ZOFRAN)DOSE = 4 mg IntraVenous Push Once, PRN PONV, first lineClinician Notes: Cee-operative order ONLY 07-May-2021 08:25 Ondansetron Injectable is not required oxyCODONE Immediate Release Tablet (OXYIR, ROXICODONE)DOSE = 5 mg Oral Every 4 Hours, PRN Pain - Mod (4-6) (PACU) when able to take OralClinician Notes: Cee-operative order ONLY 07-May-2021 08:25 oxyCODONE Immediate Release is not required Phenazopyridine Tablet (PYRIDIUM)DOSE = 200 mg Oral Once, PRN bladder spasms 07-May-2021 08:25 Phenazopyridine is not required Promethazine IV Piggy Back in Sodium Chloride 0.9% 50 mL (PHENERGAN)DOSE = 6.25 mg Once, PRN persistent PONV if first line ineffectiveRecommended Infusion Time: 15 minute(s)Clinician Notes: Cee-operative order ONLY 07-May-2021 08:25 Promethazine IV Piggy Back is not required All Active Home Medications at time of Discharge Reconciliation: 07-May-2021 14:11 bisoprolol 5 mg oral tablet 1 tab(s) oral once a day Ecotrin Adult Low Strength 81 mg oral delayed release tablet 1 tab(s) orally once a day glucosamine 500 mg oral capsule 1 cap(s) orally once a day lidocaine 5% topical ointment multivitamin omeprazole 40 mg oral delayed release capsule 1 cap(s) orally once a day prostagenix quinapril 20 mg oral tablet 1 tab(s) orally once a day Tylenol Normal [facility] Patient Profile - Preop v2on 05-07-2021 Patient Profile - Preop v2 Profile: Initial Info: How to be AddressedAndy Spoken Language PreferredEnglish Are you currently using the Personal Electronic Health Record or [place] Are you interested in learning more about [facility] for the management of your healthyes, information provided Email [email or web address] [email or web address] Reason for Admissionmelanoma removal R heel Primary Contact Name and Numbervernon friend [phone] Patient Belongingsasu Medications Brought to Hospitalno General Health: Weight in kg90.9 kilogram(s) Weight in all476.4 pound(s) Weight Methodactual (measured) Scale Typestanding Height in feet5 feet Height in inches6 inch(es) Height in cm167.6 centimeter(s) Height Methodstated BMI (kg/m2)32.36 square meter Patient or Family Member Reaction to Anesthesiano previous reaction; no previous family member reaction Blood Avoidance/Restrictionsno ne Previous Transfusion Reactionno Health Mgmt: Symptoms/Conditions Managed at Homecardiovascular; cancer; musculoskeletal Barriers to Managing Healthnone Relationship/Environ: Resource/Environmental Concernsnone Substance: Current or Former Substance Use never: Cigarette/Tobacco, e-Cigarette/Vaping, Alcohol, Street Drugs Risk Screens: COVID-19 Screening Completedno exposure or symptoms Travel or ExposureNO travel to International locations in the past 30 days Advance Directive/DNRyes Advance Directive typeLiving Will, Durable Power of Automotive Sales Specialist for Healthcare Durable Power of Automotive Sales Specialist Availabilityplaced in chart Durable Power of Automotive Sales Specialist Placed on [id number] Advance Directive Mental Healthnot applicable During the past month, have you often been bothered by feeling down, depressed or hopelessno During the past month, have you often had little interest or pleasure in doing thingsno Have you had any thoughts of harming anyone elseno Risk Screen Not Applicable/Able to Answerable to be screened In the Past Month: Have you wished you were or could go to sleep and not wake upno In the Past Month: Have you had any actual thoughts of killing yourselfno Lifetime: Have you ever done, started to do, or prepared to do anything to end your lifeno Are you or have you been threatened or abused physically,emotionally or sexually abused by anyoneno Do you feel UNSAFE going back to the place you are livingno Patient is Able to be Assessed for Learningyes Factors Influencing Readiness to Learnn/a Factors that Impact Ability to Learnnone Devices/Methods Used to Communicateglasses Learning Preferencesverbal instruction; written material Cultural Considerationsnone Developmental Considerationsnone Jain Considerationsnone Other learner availableno Falls RiskPatient location auto qualifies him/her for HIGH RISK. Are there any cultural, spiritual, lutheran practices/values/needs that are important for us to knowno Pain Scalenumerical 0-10 Pain Scale Educationteaching provided Current Pain Level0 = None Acceptable Pain Level2 = Mild Chronic Painno Information Review: Allergies, Home Meds and Significant Events have been Reviewed and Verified with Patient/Familyyes Allergy, Intolerance, Adverse Event: Allergies: No Known Allergies: Active Significant Events: 07-May-2021 hemorrhoidectomy: Past Surgical History, Active 07-May-2021 L shoulder rotator cuff repair: Past Surgical History, Active 07-May-2021 prostate cancer: Past Medical History, Active 07-May-2021 HTN, GERD, seasonal allergies: Past Medical History, Active Electronic Signatures: Roque Travis) (Signed 07-May-2021 06:42) Authored: Initial Info, General Health, Health Mgmt, Relationship/Environ, Substance, Risk Screens, Additional Information Last Updated: 07-May-2021 06:42 by Roque Travis) Normal [facility] Preop Checkliston 05-07-2021 Preop Checklist Preop Checklist: Preop Checklist: Arrival [id number] Arrival Time05:45 Procedure Typewide excision of R heel melanoma NPO [id number] 21:00 ID Band Onyes Allergy Bandno known allergies Consent Signedpending H&P Completepending Anesthesia Assessment Completedpending EKG Performednot ordered Chest X-Ray Performednot ordered HCG Urine TestN/A Chlorhexadine Bath Givennot applicable Nasal Antiseptic Appliednot applicable Hair Washednot applicable Soap and water bath with hair shampoo the night before surgerynot applicable Hat placed on prior to transportnot applicable SCD's Appliedyes FANTASMA Hose Appliednot ordered Denturesnot applicable Prostheticsnot applicable Hearing Aidsnot applicable Valuables Securedplaced in locker Glasses / Contactsplaced in locker Bowel Prepno Cardiovascular Assessment: Apicalregular Radial Pulsespalpable Pedal Pulsespalpable Extremitieswarm Respiratory Assessment: Respirationsregular unlabored Air Exchangeequal, good Breath Soundsclear Neurological Assessment: Level of Consciousnessalert, oriented Mobilitymoves all extremities Able to Express Selfyes Age Appropriateyes Emotional Statuscalm Skin Assessment: Skin Site(s) with Current Compromisenone Preop Education: Surgical Site Infection Preventionyes Pain Scales and Managementyes Language / Communication: Language / CommunicationEnglish Electronic Signatures: Roque Travis) (Signed 07-May-2021 06:30) Authored: Preop Checklist Last Updated: 07-May-2021 06:30 by Roque Travis (ELIESER) Normal [facility] TUMOR LOC SPECT/CTon 021 TUMOR LOC SPECT/CT Patient Name: EMPERATRIZ EPPS STUDY: LYMPH GLAND; 05/07/2021 9:36 am 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 ACCESSION NUMBER(S): [id number] ORDERING CLINICIAN: HUSSEIN BENNETT TECHNIQUE: DIVISION OF NUCLEAR MEDICINE RADIONUCLIDE SENTINEL LYMPH NODE LYMPHOSCINTIGRAPHY A total of 0.5 millicuries of Tc-99m tilmanocept (LymphYoyo) was injected intradermally in a circumferential pattern surrounding the patient's right heel melanoma biopsy site. Sequential images were then acquired. SPECT/low-dose CT imaging of the pelvis an of the knees were acquired. FINDINGS: Irregular, linear activity extended superiorly from the right heel injection site along the right posterior calf, popliteal fossa and posterior thigh. There was a more discrete focus of radiotracer accumulation posterior to the distal femoral diaphysis, with what appeared to be a small corresponding lymph node. SPECT/CT images of the pelvis revealed radiation seeds in the region of the prostate bed. Activity was seen in several right groin lymph nodes, but these are distal to the sentinel lymph node site as described above. IMPRESSION: Successful sentinel lymph node localization posterior to the right distal femoral diaphysis. This was discussed with Dr. Bennett at the time of image interpretation. Caisson Worker saved screen images were sent to PACS. This study was interpreted at [facility]. Electronically signed by: BRUNILDA MEJIA MD [facility] Coronavirus 2019 RNA by PCR, Screening Asymptomticon 05-05-2021 Coronavirus 2019 RNA by PCR, Screening Asymptomtic Not detected Normal See Below [facility] Work Phone: Comment on above: SOURCE: Nasal, Nasop haryngealReference Range: Not Detected.This assay is designed to detect the N, ORF1ab and/or S genes of SARS-CoV-2 via nucleic acid amplification. A Negative (NOT DETECTED) result does not preclude 2019-nCoV infection since the adequacy of sample collection and/or low viral burden may result in presence of viral nucleic acids below the clinical sensitivity of this test method. Negative (NOT DETECTED) result should not be used as the sole basis for treatment or other patient management decisions. Rather negative results should be combined with clinical observations, patient history, and epidemiological information to make patient management decisions.Fact sheet for providers: https://www.fda.gov/media/829364/downloadFact sheet for patients: https://www.fda.gov/media/583337/downloadThis test has received FDA Emergency Use Authorization (EUA) and has been verified by [facility] ([facility]). This test is only authorized for the duration of time that circumstances exist to justify the authorization of the emergency use of in vitro diagnostic tests for the detection of SARS-CoV-2 virus and/or diagnosis of COVID-19 infection under section 564(b)(1) of the Act, 21 U.S.C. 360bbb-3(b)(1), unless the authorization is terminated or revoked sooner. [facility] is certified under CLIA-88 as qualified to perform high complexity testing. Testing is performed in the [facility] laboratories located at [address] [place] [address]. Blood Pressure Cuff Sizeon 0 04-21-2021 Blood Pressure Cuff Size Adult [facility] Work Phone: No Panel Informationon 04-17 -Plastic Surgery[address] Work Phone: Clinical Summary: HMSPatient IDon 07-25-2018 WOP Invalid Interpretation Code [facility] Work Phone: Clinical Summary: Scanned RO S Summaryon 07-25-2018 endocrine ROS Denies Invalid Interpretation Code [facility] Work Phone: genitourinary review of systems, E&M Denies Invalid Interpretation Code [facility] Work Phone: Lymphocytes Auto #/vol (Bld) Denies Invalid Interpretation Code [facility] Work Phone: Review of Systems Neurologic comment Numbness,Tingling Invalid Interpretation Code [facility] Work Phone: Review of Systems Skin comment Itching Invalid Interpretation Code [facility] Work Phone: ROS cardiovascular E&M Denies Invalid Interpretation Code [facility] Work Phone: ROS ENT E&M Denies Invalid Interpretation Code [facility] Work Phone: ROS gastrointestinal E&M Denies Invalid Interpretation Code [facility] Work Phone: ROS general E&M Denies Invalid Interpretation Code [facility] Work Phone: ROS Musculoskeletal comments Muscle Weakness,Joint Pain,Stiffness,Arthritis Invalid Interpretation Code [facility] Work Phone: ROS musculoskeletal E&M Complains Invalid Interpretation Code [facility] Work Phone: ROS neurological E&M Complains Invalid Interpretation Code [facility] Work Phone: ROS Psych comment Difficulty Sleeping Invalid Interpretation Code [facility] Work Phone: ROS psychiatric E&M Complains Invalid Interpretation Code [facility] Work Phone: ROS pulmonary E&M Denies Invalid Interpretation Code [facility] Work Phone: ROS skin E&M Complains Invalid Interpretation Code [facility] Work Phone: Office Visit: New/Est - 1st visit with physician, Rm: 1on 07-25-2018 NEGATED: Highlighted rowMRI (magnetic resonance imaging) history of the right shoulder on 07/12/2018 at [facility] Invalid Interpretation Code [facility] Work Phone: NEGATED: Highlighted rowProtein mass conc Done Invalid Interpretation Code [facility] Work Phone: Vital Signs Date Time Vital Sign Value Performing Clinician Facility 04-30-2025 18:59-0400 Body temperature 98.2 [degF] Dr. Anurag Dolan MD Work Phone: [facility] 04-30-2025 18:59-0400 Diastolic blood pressure 78 mm[Hg] Dr. Anurag Dolan MD Work Phone: [facility] 04-30-2025 18:59-0400 Heart rate 68 /min Dr. Anurag Dolan MD Work Phone: [facility] 04-30-2025 18:59-0400 Respiratory rate 15 /min Dr. Anurag Dolan MD Work Phone: [facility] 04-30-2025 18:59-0400 SaO2% (BldA) [Mass fraction] 97 % Dr. Anurag Dolan MD Work Phone: [facility] 04-30-2025 18:59-0400 Systolic blood pressure 103 mm[Hg] Dr. Anurag Dolan MD Work Phone: [facility] 04-30-2025 15:26-0400 Body mass index (BMI) [Ratio] 30.6 kg/m2 Dr. Anurag Dolan MD Work Phone: [facility] 04-30-2025 15:26-0400 Body weight 86.[address] Anurag Dolan MD Work Phone: [facility] 04-30-2025 15:24-0400 Body height 167.[address] Anurag Dolan MD Work Phone: [facility] 04-20-2025 13:14-0400 Body height 171.1 cm Edis Rodrigez MD Work Phone: [facility] 04-20-2025 13:14-0400 Body mass index (BMI) [Ratio] 30.67 kg/m2 Edis Rodrigez MD Work Phone: [facility] 04-20-2025 13:14-0400 Body temperature 98.2 [degF] Edis Rodrigez MD Work Phone: [facility] 04-20-2025 13:14-0400 Body weight 89.8 kg Edis Rodrigez MD Work Phone: [facility] 04-20-2025 13:14-0400 Diastolic blood pressure 87 mm[Hg] Edis Rodrigez MD Work Phone: [facility] 04-20-2025 13:14-0400 Heart rate 74 /min Edis Rodrigez MD Work Phone: [facility] 04-20-2025 13:14-0400 Respiratory rate 20 /min Edis Rodrigez MD Work Phone: [facility] 04-20-2025 13:14-0400 SaO2% (BldA) [Mass fraction] 99 % Edis Rodrigez MD Work Phone: [facility] 04-20-2025 13:14-0400 Systolic blood pressure 141 mm[Hg] Edis Rodrigez MD Work Phone: [facility] 04-11-2025 11:13-0400 Body height 167.[address] Anurag Dolan MD Work Phone: [facility] 04-11-2025 11:13-0400 Body mass index (BMI) [Ratio] 32.1 kg/m2 Dr. Anurag Dolan MD Work Phone: [facility] 04-11-2025 11:13-0400 Body temperature 97.6 [degF] Dr. Anurag Dolan MD Work Phone: [facility] 04-11-2025 11:13-0400 Body weight 90.[address] Anurag Dolan MD Work Phone: [facility] 04-11-2025 11:13-0400 Diastolic blood pressure 76 mm[Hg] Dr. Anurag Dolan MD Work Phone: [facility] 04-11-2025 11:13-0400 Heart rate 71 /min Dr. Anurag Dolan MD Work Phone: [facility] 04-11-2025 11:13-0400 Respiratory rate 18 /min Dr. Anurag Dolan MD Work Phone: [facility] 04-11-2025 11:13-0400 SaO2% (BldA) [Mass fraction] 97 % Dr. Anurag Dolan MD Work Phone: [facility] 04-11-2025 11:13-0400 Systolic blood pressure 145 mm[Hg] Dr. Anurag Dolan MD Work Phone: 2(255)226-169310 [place] [address] 03-26-2025 10:33-0400 Body mass index (BMI) [Ratio] 32.6 kg/m2 Dr. Anurag Dolan MD Work Phone: 0(353)223-208212 [place] [address] 03-26-2025 10:33-0400 Body temperature 97.3 [degF] Dr. Anurag Dolan MD Work Phone: 7(097)764-938612 [place] [address] 03-26-2025 10:33-0400 Body weight 91.[address] Anurag Dolan MD Work Phone: 3(686)150-666212 [place] [address] 03-26-2025 10:33-0400 Diastolic blood pressure 79 mm[Hg] Dr. Anurag Dolan MD Work Phone: 2(467)640-940212 [place] [address] 03-26-2025 10:33-0400 Heart rate 71 /min Dr. Anurag Dolan MD Work Phone: 3(492)463-352012 [place] [address] 03-26-2025 10:33-0400 Respiratory rate 16 /min Dr. Anurag Dolan MD Work Phone: 1(114)466-729112 [place] [address] 03-26-2025 10:33-0400 SaO2% (BldA) [Mass fraction] 97 % Dr. Anurag Dolan MD Work Phone: 1(377)932-406012 [place] [address] 03-26-2025 10:33-0400 Systolic blood pressure 138 mm[Hg] Dr. Anurag Dolan MD Work Phone: 6(041)585-742512 [place] [address] 03-12-2025 10:30-0400 Body mass index (BMI) [Ratio] 32.8 kg/m2 Dr. Anurag Dolan MD Work Phone: 2(450)945-769710 [place] [address] 03-12-2025 10:30-0400 Body temperature 98 [degF] Dr. Anurag Dolan MD Work Phone: 5(290)575-686310 [place] [address] 03-12-2025 10:30-0400 Body weight 92.[address] Anurag Dolan MD Work Phone: 5(853)359-204510 [place] [address] 03-12-2025 10:30-0400 Diastolic blood pressure 80 mm[Hg] Dr. Anurag Dolan MD Work Phone: 1(090)270-820910 [place] [address] 03-12-2025 10:30-0400 Heart rate 62 /min Dr. Anurag Dolan MD Work Phone: [facility] 03-12-2025 10:30-0400 Respiratory rate 18 /min Dr. Anurag Dolan MD Work Phone: 7(882)627-111610 [place] [address] 03-12-2025 10:30-0400 SaO2% (BldA) [Mass fraction] 94 % Dr. Anurag Dolan MD Work Phone: 3(198)321-320812 [place] [address] 03-12-2025 10:30-0400 Systolic blood pressure 135 mm[Hg] Dr. Anurag Dolan MD Work Phone: 6(185)556-835512 [place] [address] 03-11-2025 10:00-0400 Body temperature 97.7 [degF] Dr. Anurag Dolan MD Work Phone: 2(644)752-723512 [place] [address] 03-11-2025 10:00-0400 Diastolic blood pressure 62 mm[Hg] Dr. Anurag Dolan MD Work Phone: 3(354)537-659312 [place] [address] 03-11-2025 10:00-0400 Heart rate 75 /min Dr. Anurag Dolan MD Work Phone: 5(539)762-09[address] [place] [address] 03-11-2025 10:00-0400 Respiratory rate 18 /min Dr. Anurag Dolan MD Work Phone: 2(766)976-816910 [place] [address] 03-11-2025 10:00-0400 SaO2% (BldA) [Mass fraction] 98 % Dr. Anurag Dolan MD Work Phone: 2(677)412-457710 [place] [address] 03-11-2025 10:00-0400 Systolic blood pressure 120 mm[Hg] Dr. Anurag Dolan MD Work Phone: 8(794)620-387912 [place] [address] 03-09-2025 09:16-0400 Body mass index (BMI) [Ratio] 31.6 kg/m2 Dr. Anurag Dolan MD Work Phone: 5(899)120-133210 [place] [address] 03-07-2025 10:17-0400 Body mass index (BMI) [Ratio] 31.1 kg/m2 Dr. Anurag Dolan MD Work Phone: 8(084)765-032010 [place] [address] 03-07-2025 10:17-0400 Body temperature 98.2 [degF] Dr. Anurag Dolan MD Work Phone: 6(196)406-608112 [place] [address] 03-07-2025 10:17-0400 Body weight 88.[address] Anurag Dolan MD Work Phone: 1(970)684-132812 [place] [address] 03-07-2025 10:17-0400 Diastolic blood pressure 72 mm[Hg] Dr. Anurag Dolan MD Work Phone: 9(092)499-061612 [place] [address] 03-07-2025 10:17-0400 Heart rate 102 /min Dr. Anurag Dolan MD Work Phone: 4(116)217-521412 [place] [address] 03-07-2025 10:17-0400 Respiratory rate 16 /min Dr. Anurag Dolan MD Work Phone: 7(238)380-820012 [place] [address] 03-07-2025 10:17-0400 SaO2% (BldA) [Mass fraction] 96 % Dr. Anurag Dolan MD Work Phone: 2(647)016-541312 [place] [address] 03-07-2025 10:17-0400 Systolic blood pressure 113 mm[Hg] Dr. Anurag Dolan MD Work Phone: 3(080)825-472112 [place] [address] 02-26-2025 11:48-0400 Body temperature 97.1 [degF] Dr. Anurag Dolan MD Work Phone: 2(757)255-995212 [place] [address] 02-26-2025 11:48-0400 Diastolic blood pressure 76 mm[Hg] Dr. Anurag Dolan MD Work Phone: 4(915)810-060712 [place] [address] 02-26-2025 11:48-0400 Heart rate 70 /min Dr. Anurag Dolan MD Work Phone: 0(358)640-474912 [place] [address] 02-26-2025 11:48-0400 Respiratory rate 16 /min Dr. Anurag Dolan MD Work Phone: 8(618)844-488112 [place] [address] 02-26-2025 11:48-0400 SaO2% (BldA) [Mass fraction] 95 % Dr. Anurag Dolan MD Work Phone: 2(905)092-292912 [place] [address] 02-26-2025 11:48-0400 Systolic blood pressure 119 mm[Hg] Dr. Anurag Dolan MD Work Phone: 8(144)064-951012 [place] [address] 02-26-2025 09:38-0400 Body height 168.[address] Anurag Dolan MD Work Phone: 1(626)711-830512 [place] [address] 02-22-2025 09:12-0400 Body mass index (BMI) [Ratio] 30.9 kg/m2 Dr. Anurag Dolan MD Work Phone: 0(720)001-418312 [place] [address] 02-22-2025 09:12-0400 Body weight 88.[address] Anurag Dolan MD Work Phone: 7(341)539-478312 [place] [address] 02-15-2025 09:15-0400 Body mass index (BMI) [Ratio] 31.7 kg/m2 Dr. Anurag Dolan MD Work Phone: 6(487)745-253112 [place] [address] 02-15-2025 09:15-0400 Body temperature 97.5 [degF] Dr. Anurag Dolan MD Work Phone: 0(714)026-830712 [place] [address] 02-15-2025 09:15-0400 Body weight 90.[address] Anurag Dolan MD Work Phone: 7(963)227-178912 [place] [address] 02-15-2025 09:15-0400 Diastolic blood pressure 79 mm[Hg] Dr. Anurag Dolan MD Work Phone: 1(801)032-572812 [place] [address] 02-15-2025 09:15-0400 Heart rate 62 /min Dr. Anurag Dolan MD Work Phone: 6(445)669-543112 [place] [address] 02-15-2025 09:15-0400 Respiratory rate 18 /min Dr. Anurag Dolan MD Work Phone: 4(845)057-664512 [place] [address] 02-15-2025 09:15-0400 SaO2% (BldA) [Mass fraction] 95 % Dr. Anurag Dolan MD Work Phone: 4(371)022-059812 [place] [address] 02-15-2025 09:15-0400 Systolic blood pressure 126 mm[Hg] Dr. Anurag Dolan MD Work Phone: 8(311)904-551936 [address] 12-21-2024 12:48-0500 Body mass index (BMI) [Ratio] 32.5 kg/m2 Dr. Anurag Dolan MD Work Phone: 4(290)362-701210 [place] [address] 12-21-2024 12:48-0500 Body temperature 97 [degF] Dr. Anurag Dolan MD Work Phone: 6(912)898-403712 [place] [address] 12-21-2024 12:48-0500 Body weight 93.[address] Anurag Dolan MD Work Phone: 3(233)619-716812 [place] [address] 12-21-2024 12:48-0500 Diastolic blood pressure 78 mm[Hg] Dr. Anurag Dolan MD Work Phone: 1(674)188-869912 [place] [address] 12-21-2024 12:48-0500 Heart rate 61 /min Dr. Anurag Dolan MD Work Phone: 3(463)749-949212 [place] [address] 12-21-2024 12:48-0500 Respiratory rate 18 /min Dr. Anurag Dolan MD Work Phone: 4(580)573-615512 [place] [address] 12-21-2024 12:48-0500 SaO2% (BldA) [Mass fraction] 97 % Dr. Anurag Dolan MD Work Phone: 9(870)067-006812 [place] [address] 12-21-2024 12:48-0500 Systolic blood pressure 148 mm[Hg] Dr. Anurag Dolan MD Work Phone: 7(760)588-698510 [place] [address] 12-21-2024 11:25-0500 Body mass index (BMI) [Ratio] 32.4 kg/m2 Dr. Anurag Dolan MD Work Phone: 0(658)366-327312 [place] [address] 12-21-2024 11:25-0500 Body weight 92.[address] Anurag Dolan MD Work Phone: 6(323)964-706312 [place] [address] 12-21-2024 11:25-0500 Diastolic blood pressure 80 mm[Hg] Dr. Anurag Dolan MD Work Phone: 5(990)210-548512 [place] [address] 12-21-2024 11:25-0500 Heart rate 65 /min Dr. Anurag Dolan MD Work Phone: 8(723)020-399510 [place] [address] 12-21-2024 11:25-0500 Respiratory rate 16 /min Dr. Anurag Dolan MD Work Phone: 3(084)987-039012 [place] [address] 12-21-2024 11:25-0500 Systolic blood pressure 120 mm[Hg] Dr. Anurag Dolan MD Work Phone: 6(972)969-914212 [place] [address] 11-23-2024 12:58-0500 Body mass index (BMI) [Ratio] 33.2 kg/m2 Dr. Anurag Dolan MD Work Phone: 9(276)991-731812 [place] [address] 11-23-2024 12:58-0500 Body temperature 98.3 [degF] Dr. Anurag Dolan MD Work Phone: 3(999)281-500012 [place] [address] 11-23-2024 12:58-0500 Body weight 94.[address] Anurag Dolan MD Work Phone: 6(331)783-879812 [place] [address] 11-23-2024 12:58-0500 Diastolic blood pressure 75 mm[Hg] Dr. Anurag Dolan MD Work Phone: 3(957)350-415412 [place] [address] 11-23-2024 12:58-0500 Heart rate 59 /min Dr. Anurag Dolan MD Work Phone: 0(734)305-102812 [place] [address] 11-23-2024 12:58-0500 Respiratory rate 16 /min Dr. Anurag Dolan MD Work Phone: 7(010)924-083712 [place] [address] 11-23-2024 12:58-0500 SaO2% (BldA) [Mass fraction] 95 % Dr. Anurag Dolan MD Work Phone: 1(502)521-621912 [place] [address] 11-23-2024 12:58-0500 Systolic blood pressure 124 mm[Hg] Dr. Anurag Dolan MD Work Phone: 9(857)125-727512 [place] [address] 01-27-2024 16:13-0500 Body temperature 97.7 [degF] Dr. Anurag Dolan Work Phone: 2(471)048-502612 [place] [address] 01-27-2024 16:13-0500 Diastolic blood pressure 69 mm[Hg] Dr. Anurag Dolan Work Phone: [facility] 01-27-2024 16:13-0500 Heart rate 67 /min Dr. Anurag Dolan Work Phone: [facility] 01-27-2024 16:13-0500 Respiratory rate 16 /min Dr. Anurag Dolan Work Phone: [facility] 01-27-2024 16:13-0500 SaO2% (BldA) [Mass fraction] 97 % Dr. Anurag Dolan Work Phone: [facility] 01-27-2024 16:13-0500 Systolic blood pressure 123 mm[Hg] Dr. Anurag Dolan Work Phone: [facility] 01-27-2024 13:09-0500 Body height 167.[address] Anurag Dolan Work Phone: [facility] 01-27-2024 13:09-0500 Body mass index (BMI) [Ratio] 32 kg/m2 Dr. Anurag Dolan Work Phone: [facility] 01-27-2024 13:09-0500 Body temperature 97.6 [degF] Dr. Anurag Dolan Work Phone: [facility] 01-27-2024 13:09-0500 Body weight 90.[address] Anurag Dolan Work Phone: [facility] 01-27-2024 13:09-0500 Diastolic blood pressure 84 mm[Hg] Dr. Anurag Dolan Work Phone: [facility] 01-27-2024 13:09-0500 Heart rate 67 /min Dr. Anurag Dolan Work Phone: [facility] 01-27-2024 13:09-0500 Respiratory rate 18 /min Dr. Anurag Dolan Work Phone: [facility] 01-27-2024 13:09-0500 SaO2% (BldA) [Mass fraction] 95 % Dr. Anurag Dolan Work Phone: [facility] 01-27-2024 13:09-0500 Systolic blood pressure 134 mm[Hg] Dr. Anurag Dolan Work Phone: [facility] 01-19-2024 09:01-0500 Body mass index (BMI) [Ratio] 31.57 kg/m2 Kilo Dolan MD Work Phone: [facility] 01-19-2024 09:01-0500 Body weight 90.08 kg Kilo Dolan MD Work Phone: [facility] 01-19-2024 09:01-0500 Diastolic blood pressure 86 mm[Hg] Kilo Dolan MD Work Phone: [facility] 01-19-2024 09:01-0500 Heart rate 61 /min Kilo Dolan MD Work Phone: [facility] 01-19-2024 09:01-0500 SaO2% (BldA) [Mass fraction] 97 % Kilo Dolan MD Work Phone: [facility] 01-19-2024 09:01-0500 Systolic blood pressure 110 mm[Hg] Kilo Dolan MD Work Phone: [facility] 01-06-2024 10:45-0500 Body mass index (BMI) [Ratio] 31.8 kg/m2 Dr. Anurag Dolan Work Phone: [facility] 01-06-2024 10:45-0500 Body temperature 97.7 [degF] Dr. Anurag Dolan Work Phone: [facility] 01-06-2024 10:45-0500 Body weight 89.[address] Anurag Dolan Work Phone: [facility] 01-06-2024 10:45-0500 Diastolic blood pressure 86 mm[Hg] Dr. Anurag Dolan Work Phone: [facility] 01-06-2024 10:45-0500 Heart rate 63 /min Dr. Anurag Dolan Work Phone: [facility] 01-06-2024 10:45-0500 Respiratory rate 18 /min Dr. Anurag Dolan Work Phone: [facility] 01-06-2024 10:45-0500 SaO2% (BldA) [Mass fraction] 96 % Dr. Anurag Dolan Work Phone: [facility] 01-06-2024 10:45-0500 Systolic blood pressure 134 mm[Hg] Dr. Anurag Dolan Work Phone: [facility] 12-09-2023 13:09-0500 Body mass index (BMI) [Ratio] 32.3 kg/m2 Dr. Anurag Dolan Work Phone: [facility] 12-09-2023 13:09-0500 Body temperature 98.4 [degF] Dr. Anurag Dolan Work Phone: [facility] 12-09-2023 13:09-0500 Body weight 90.[address] Anurag Dolan Work Phone: [facility] 12-09-2023 13:09-0500 Diastolic blood pressure 80 mm[Hg] Dr. Anurag Dolan Work Phone: 0(229)729-520410 [place] [address] 12-09-2023 13:09-0500 Heart rate 70 /min Dr. Anurag Dolan Work Phone: 7(894)803-824610 [place] [address] 12-09-2023 13:09-0500 Respiratory rate 18 /min Dr. Anurag Dolan Work Phone: [facility] 12-09-2023 13:09-0500 SaO2% (BldA) [Mass fraction] 96 % Dr. Anurag Dolan Work Phone: [facility] 12-09-2023 13:09-0500 Systolic blood pressure 123 mm[Hg] Dr. Anurag Dolan Work Phone: [facility] 11-18-2023 08:51-0500 Body mass index (BMI) [Ratio] 32.5 kg/m2 Dr. Anurag Dolan Work Phone: [facility] 11-18-2023 08:51-0500 Body temperature 98.1 [degF] Dr. Anurag Dolan Work Phone: [facility] 11-18-2023 08:51-0500 Body weight 91.[address] Anurag Dolan Work Phone: [facility] 11-18-2023 08:51-0500 Diastolic blood pressure 84 mm[Hg] Dr. Anurag Dolan Work Phone: [facility] 11-18-2023 08:51-0500 Heart rate 60 /min Dr. Anurag Dolan Work Phone: [facility] 11-18-2023 08:51-0500 Respiratory rate 18 /min Dr. Anurag Dolan Work Phone: [facility] 11-18-2023 08:51-0500 SaO2% (BldA) [Mass fraction] 96 % Dr. Anurag Dolan Work Phone: [facility] 11-18-2023 08:51-0500 Systolic blood pressure 142 mm[Hg] Dr. Anurag Dolan Work Phone: [facility] 11-10-2023 09:26-0500 Body mass index (BMI) [Ratio] 32.6 kg/m2 Dr. Anurag Dolan Work Phone: [facility] 11-10-2023 09:26-0500 Body temperature 98.3 [degF] Dr. Anurag Dolan Work Phone: [facility] 11-10-2023 09:26-0500 Body weight 91.[address] Anurag Dolan Work Phone: [facility] 11-10-2023 09:26-0500 Diastolic blood pressure 81 mm[Hg] Dr. Anurag Dolan Work Phone: [facility] 11-10-2023 09:26-0500 Heart rate 85 /min Dr. Anurag Dolan Work Phone: [facility] 11-10-2023 09:26-0500 Respiratory rate 18 /min Dr. Anurag Dolan Work Phone: [facility] 11-10-2023 09:26-0500 SaO2% (BldA) [Mass fraction] 97 % Dr. Anurag Dolan Work Phone: [facility] 11-10-2023 09:26-0500 Systolic blood pressure 130 mm[Hg] Dr. Anurag Dolan Work Phone: [facility] 11-08-2023 12:08-0500 Body height 167.[address] Anurag Dolan Work Phone: [facility] 11-08-2023 12:08-0500 Body mass index (BMI) [Ratio] 32.6 kg/m2 Dr. Anurag Dolan Work Phone: [facility] 11-08-2023 12:08-0500 Body temperature 97.1 [degF] Dr. Anurag Dolan Work Phone: [facility] 11-08-2023 12:08-0500 Body weight 91.[address] Anurag Dolan Work Phone: [facility] 11-08-2023 12:08-0500 Diastolic blood pressure 86 mm[Hg] Dr. Anurag Dolan Work Phone: [facility] 11-08-2023 12:08-0500 Heart rate 57 /min Dr. Anurag Dolan Work Phone: [facility] 11-08-2023 12:08-0500 Respiratory rate 18 /min Dr. Anurag Dolan Work Phone: [facility] 11-08-2023 12:08-0500 SaO2% (BldA) [Mass fraction] 98 % Dr. Anurag Dolan Work Phone: [facility] 11-08-2023 12:08-0500 Systolic blood pressure 127 mm[Hg] Dr. Anurag Dolan Work Phone: [facility] 11-03-2023 11:30-0500 Diastolic blood pressure 60 mm[Hg] Dr. Anurag Dolan Work Phone: [facility] 11-03-2023 11:30-0500 Heart rate 72 /min Dr. Anurag Dolan Work Phone: [facility] 11-03-2023 11:30-0500 Respiratory rate 18 /min Dr. Anurag Dolan Work Phone: [facility] 11-03-2023 11:30-0500 SaO2% (BldA) [Mass fraction] 95 % Dr. Anurag Dolan Work Phone: [facility] 11-03-2023 11:30-0500 Systolic blood pressure 116 mm[Hg] Dr. Anurag Dolan Work Phone: [facility] 11-03-2023 09:15-0500 Body mass index (BMI) [Ratio] 31.9 kg/m2 Dr. Anurag Dolan Work Phone: [facility] 11-03-2023 09:15-0500 Body temperature 98 [degF] Dr. Anurag Dolan Work Phone: [facility] 11-03-2023 09:15-0500 Body weight 89.[address] Anurag Dolan Work Phone: [facility] 10-28-2023 11:25-0500 Body height 168.[address] Anurag Dolan Work Phone: [facility] 10-28-2023 11:25-0500 Body mass index (BMI) [Ratio] 32.4 kg/m2 Dr. Anurag Dolan Work Phone: [facility] 10-28-2023 11:25-0500 Body temperature 98.2 [degF] Dr. Anurag Dolan Work Phone: [facility] 10-28-2023 11:25-0500 Body weight 92.[address] Anurag Dolan Work Phone: [facility] 10-28-2023 11:25-0500 Diastolic blood pressure 84 mm[Hg] Dr. Anurag Dolan Work Phone: [facility] 10-28-2023 11:25-0500 Heart rate 68 /min Dr. Anurag Dolan Work Phone: [facility] 10-28-2023 11:25-0500 Respiratory rate 16 /min Dr. Anurag Dolan Work Phone: [facility] 10-28-2023 11:25-0500 SaO2% (BldA) [Mass fraction] 97 % Dr. Anurag Dolan Work Phone: [facility] 10-28-2023 11:25-0500 Systolic blood pressure 132 mm[Hg] Dr. Anurag Dolan Work Phone: [facility] 10-12-2023 09:53-0500 Body mass index (BMI) [Ratio] 32.1 kg/m2 Dr. Anurag Dolan Work Phone: [facility] 10-12-2023 09:53-0500 Body temperature 98 [degF] Dr. Anurag Dolan Work Phone: [facility] 10-12-2023 09:53-0500 Body weight 91.[address] Anurag Dolan Work Phone: [facility] 10-12-2023 09:53-0500 Diastolic blood pressure 73 mm[Hg] Dr. Anurag Dolan Work Phone: [facility] 10-12-2023 09:53-0500 Heart rate 66 /min Dr. Anurag Dolan Work Phone: [facility] 10-12-2023 09:53-0500 Respiratory rate 16 /min Dr. Anurag Dolan Work Phone: [facility] 10-12-2023 09:53-0500 SaO2% (BldA) [Mass fraction] 96 % Dr. Anurag Dolan Work Phone: [facility] 10-12-2023 09:53-0500 Systolic blood pressure 119 mm[Hg] Dr. Anurag Dolan Work Phone: [facility] 08-25-2023 09:40-0400 Body mass index (BMI) [Ratio] 32.5 kg/m2 Dr. Anurag oDlan Work Phone: [facility] 08-25-2023 09:40-0400 Body weight 92.[address] Anurag Dolan Work Phone: [facility] 08-25-2023 09:40-0400 Diastolic blood pressure 69 mm[Hg] Dr. Anurag Dolan Work Phone: [facility] 08-25-2023 09:40-0400 Heart rate 63 /min Dr. Anurag Dolan Work Phone: [facility] 08-25-2023 09:40-0400 Respiratory rate 18 /min Dr. Anurag Dolan Work Phone: [facility] 08-25-2023 09:40-0400 SaO2% (BldA) [Mass fraction] 94 % Dr. Anurag Dolan Work Phone: [facility] 08-25-2023 09:40-0400 Systolic blood pressure 114 mm[Hg] Dr. Anurag Dolan Work Phone: [facility] 08-05-2023 11:23-0400 Body height 168.[address] Anurag Dolan Work Phone: [facility] 08-05-2023 11:23-0400 Body mass index (BMI) [Ratio] 32.3 kg/m2 Dr. Anurag Dolan Work Phone: [facility] 08-05-2023 11:23-0400 Body temperature 97.8 [degF] Dr. Anurag Dolan Work Phone: [facility] 08-05-2023 11:23-0400 Body weight 92.[address] Anurag Dolan Work Phone: [facility] 08-05-2023 11:23-0400 Diastolic blood pressure 84 mm[Hg] Dr. Anurag Dolan Work Phone: [facility] 08-05-2023 11:23-0400 Heart rate 64 /min Dr. Anurag Dolan Work Phone: [facility] 08-05-2023 11:23-0400 Respiratory rate 16 /min Dr. Anurag Dolan Work Phone: [facility] 08-05-2023 11:23-0400 SaO2% (BldA) [Mass fraction] 96 % Dr. Anurag Dolan Work Phone: [facility] 08-05-2023 11:23-0400 Systolic blood pressure 142 mm[Hg] Dr. Anurag Dolan Work Phone: [facility] 05-19-2023 10:30-0400 Body temperature 97.5 [degF] Dr. Anurag Dolan Work Phone: [facility] 05-19-2023 10:30-0400 Diastolic blood pressure 90 mm[Hg] Dr. Anurag Dolan Work Phone: 4(752)585-218610 [place] [address] 05-19-2023 10:30-0400 Heart rate 61 /min Dr. Anurag Dolan Work Phone: 8(381)520-199210 [place] [address] 05-19-2023 10:30-0400 Respiratory rate 18 /min Dr. Anurag Dolan Work Phone: [facility] 05-19-2023 10:30-0400 SaO2% (BldA) [Mass fraction] 94 % Dr. Anurag Dolan Work Phone: [facility] 05-19-2023 10:30-0400 Systolic blood pressure 125 mm[Hg] Dr. Anurag Dolan Work Phone: [facility] 05-19-2023 09:05-0400 Inhaled oxygen flow rate 15 L/min Dr. Anurag Dolan Work Phone: [facility] 05-19-2023 08:23-0400 Body height 168.[address] Anurag Dolan Work Phone: [facility] 05-19-2023 08:23-0400 Body mass index (BMI) [Ratio] 30.9 kg/m2 Dr. Anurag Dolan Work Phone: [facility] 05-19-2023 08:23-0400 Body weight 88.[address] Anurag Dolan Work Phone: 6(636)322-527210 [place] [address] 05-17-2023 11:30-0400 Body mass index (BMI) [Ratio] 31.5 kg/m2 Dr. Anurag Dolan Work Phone: [facility] 05-17-2023 11:30-0400 Body temperature 97.2 [degF] Dr. Anurag Dolan Work Phone: [facility] 05-17-2023 11:30-0400 Body weight 89.[address] Anurag Dolan Work Phone: [facility] 05-17-2023 11:30-0400 Diastolic blood pressure 77 mm[Hg] Dr. Anurag Dolan Work Phone: [facility] 05-17-2023 11:30-0400 Heart rate 63 /min Dr. Anurag Dolan Work Phone: [facility] 05-17-2023 11:30-0400 Respiratory rate 16 /min Dr. Anurag Dolan Work Phone: [facility] 05-17-2023 11:30-0400 SaO2% (BldA) [Mass fraction] 94 % Dr. Anurag Dolan Work Phone: [facility] 05-17-2023 11:30-0400 Systolic blood pressure 126 mm[Hg] Dr. Anurag Dolan Work Phone: [facility] 05-05-2023 10:20-0400 Body mass index (BMI) [Ratio] 31.03 kg/m2 Stephanie O[employer]Shell [employer] Work Phone: [facility] 05-05-2023 10:20-0400 Body weight 88.54 kg Stephanie O'Shell [employer] Work Phone: [facility] 05-05-2023 10:20-0400 Diastolic blood pressure 86 mm[Hg] Stephanie O'Shell [employer] Work Phone: [facility] 05-05-2023 10:20-0400 Heart rate 66 /min Stephanie O'Shell [employer] - [employer] Work Phone: [facility] [email or web address] 05-05-2023 10:20-0400 SaO2% (BldA) [Mass fraction] 98 % Stephanie Pack [employer] Work Phone: [facility] 05-05-2023 10:20-0400 Systolic blood pressure 130 mm[Hg] Stephanie Pack [employer] - [employer] Work Phone: [facility] 04-29-2023 11:18-0400 Body height 168.[address] Anurag Dolan Work Phone: [facility] 04-29-2023 11:18-0400 Body mass index (BMI) [Ratio] 31.5 kg/m2 Dr. Anurag Dolan Work Phone: [facility] 04-29-2023 11:18-0400 Body temperature 98.3 [degF] Dr. Anurag Dolan Work Phone: [facility] 04-29-2023 11:18-0400 Body weight 89.[address] Anurag Dolan Work Phone: [facility] 04-29-2023 11:18-0400 Diastolic blood pressure 70 mm[Hg] Dr. Anurag Dolan Work Phone: [facility] 04-29-2023 11:18-0400 Heart rate 66 /min Dr. Anurag Dolan Work Phone: [facility] 04-29-2023 11:18-0400 Respiratory rate 16 /min Dr. Anurag Dolan Work Phone: [facility] 04-29-2023 11:18-0400 SaO2% (BldA) [Mass fraction] 95 % Dr. Anurag Dolan Work Phone: [facility] 04-29-2023 11:18-0400 Systolic blood pressure 115 mm[Hg] Dr. Anurag Dolan Work Phone: [facility] 04-12-2023 10:17-0400 Body mass index (BMI) [Ratio] 31 kg/m2 Dr. Anurag Dolan Work Phone: [facility] 04-12-2023 10:17-0400 Body temperature 96.6 [degF] Dr. Anurag Dolan Work Phone: [facility] 04-12-2023 10:17-0400 Body weight 88.[address] Anurag Dolan Work Phone: [facility] 04-12-2023 10:17-0400 Diastolic blood pressure 72 mm[Hg] Dr. Anurag Dolan Work Phone: [facility] 04-12-2023 10:17-0400 Heart rate 69 /min Dr. Anurag Dolan Work Phone: [facility] 04-12-2023 10:17-0400 Respiratory rate 18 /min Dr. Anurag Dolan Work Phone: [facility] 04-12-2023 10:17-0400 SaO2% (BldA) [Mass fraction] 96 % Dr. Anurag Dolan Work Phone: [facility] 04-12-2023 10:17-0400 Systolic blood pressure 108 mm[Hg] Dr. Anurag Dolan Work Phone: [facility] 04-07-2023 10:12-0400 Body mass index (BMI) [Ratio] 30.9 kg/m2 Dr. Anurag Dolan Work Phone: [facility] 04-07-2023 10:12-0400 Body temperature 97.2 [degF] Dr. Anurag Dolan Work Phone: [facility] 04-07-2023 10:12-0400 Body weight 88.[address] Anurag Dolan Work Phone: [facility] 04-07-2023 10:12-0400 Diastolic blood pressure 79 mm[Hg] Dr. Anurag Dolan Work Phone: [facility] 04-07-2023 10:12-0400 Heart rate 76 /min Dr. Anurag Dolan Work Phone: [facility] 04-07-2023 10:12-0400 Respiratory rate 16 /min Dr. Anurag Dolan Work Phone: [facility] 04-07-2023 10:12-0400 SaO2% (BldA) [Mass fraction] 96 % Dr. Anurag Dolan Work Phone: [facility] 04-07-2023 10:12-0400 Systolic blood pressure 128 mm[Hg] Dr. Anurag Dolan Work Phone: [facility] 03-31-2023 10:29-0400 Body height 168.[address] Anurag Dolan Work Phone: [facility] 03-31-2023 10:29-0400 Body mass index (BMI) [Ratio] 30.9 kg/m2 Dr. Anurag Dolan Work Phone: [facility] 03-31-2023 10:29-0400 Body temperature 97.2 [degF] Dr. Anurag Dolan Work Phone: [facility] 03-31-2023 10:29-0400 Body weight 88.[address] Anurag Dolan Work Phone: [facility] 03-31-2023 10:29-0400 Diastolic blood pressure 80 mm[Hg] Dr. Anurag Dolan Work Phone: [facility] 03-31-2023 10:29-0400 Heart rate 74 /min Dr. Anurag Dolan Work Phone: [facility] 03-31-2023 10:29-0400 Respiratory rate 16 /min Dr. Anurag Dolan Work Phone: [facility] 03-31-2023 10:29-0400 SaO2% (BldA) [Mass fraction] 97 % Dr. Anurag Dolan Work Phone: [facility] 03-31-2023 10:29-0400 Systolic blood pressure 131 mm[Hg] Dr. Anurag Dolan Work Phone: [facility] 03-29-2023 10:33-0400 Body mass index (BMI) [Ratio] 30.5 kg/m2 Dr. Anurag Dolan Work Phone: [facility] 03-29-2023 10:33-0400 Body temperature 98.3 [degF] Dr. Anurag Dolna Work Phone: [facility] 03-29-2023 10:33-0400 Body weight 87.[address] Anurag Dolan Work Phone: [facility] 03-29-2023 10:33-0400 Diastolic blood pressure 78 mm[Hg] Dr. Anurag Dolan Work Phone: [facility] 03-29-2023 10:33-0400 Heart rate 73 /min Dr. Anurag Dolan Work Phone: [facility] 03-29-2023 10:33-0400 Respiratory rate 16 /min Dr. Anurag Dolan Work Phone: [facility] 03-29-2023 10:33-0400 SaO2% (BldA) [Mass fraction] 95 % Dr. Anurag Dolan Work Phone: [facility] 03-29-2023 10:33-0400 Systolic blood pressure 109 mm[Hg] Dr. Anurag Dolan Work Phone: [facility] 03-25-2023 13:50-0400 Body height 168.[address] Anurag Dolan Work Phone: [facility] 03-25-2023 10:25-0400 Body temperature 97.1 [degF] Dr. Anurag Dolan Work Phone: [facility] 03-25-2023 10:25-0400 Diastolic blood pressure 75 mm[Hg] Dr. Anurag Dolan Work Phone: [facility] 03-25-2023 10:25-0400 Heart rate 72 /min Dr. Anurag Dolan Work Phone: [facility] 03-25-2023 10:25-0400 Respiratory rate 18 /min Dr. Anurag Dolan Work Phone: [facility] 03-25-2023 10:25-0400 SaO2% (BldA) [Mass fraction] 96 % Dr. Anurag Dolan Work Phone: [facility] 03-25-2023 10:25-0400 Systolic blood pressure 117 mm[Hg] Dr. Anurag Dolan Work Phone: [facility] 03-23-2023 09:11-0400 Body mass index (BMI) [Ratio] 30.9 kg/m2 Dr. Anurag Dolan Work Phone: [facility] 03-23-2023 09:11-0400 Body temperature 97.5 [degF] Dr. Anurag Dolan Work Phone: [facility] 03-23-2023 09:11-0400 Body weight 88.[address] Anurag Dolan Work Phone: [facility] 03-23-2023 09:11-0400 Diastolic blood pressure 84 mm[Hg] Dr. Anurag Dolan Work Phone: [facility] 03-23-2023 09:11-0400 Heart rate 72 /min Dr. Anurag Dolan Work Phone: [facility] 03-23-2023 09:11-0400 Respiratory rate 18 /min Dr. Anurag Dolan Work Phone: [facility] 03-23-2023 09:11-0400 SaO2% (BldA) [Mass fraction] 98 % Dr. Anurag Dolan Work Phone: [facility] 03-23-2023 09:11-0400 Systolic blood pressure 124 mm[Hg] Dr. Anurag Dolan Work Phone: [facility] 03-17-2023 11:17-0400 Body mass index (BMI) [Ratio] 31 kg/m2 Dr. Anurag Dolan Work Phone: [facility] 03-17-2023 11:17-0400 Body temperature 96.7 [degF] Dr. Anurag Dolan Work Phone: [facility] 03-17-2023 11:17-0400 Body weight 88.[address] Anurag Dolan Work Phone: [facility] 03-17-2023 11:17-0400 Diastolic blood pressure 78 mm[Hg] Dr. Anurag Dolan Work Phone: [facility] 03-17-2023 11:17-0400 Heart rate 63 /min Dr. Anurag Dolan Work Phone: [facility] 03-17-2023 11:17-0400 Respiratory rate 18 /min Dr. Anurag Dolan Work Phone: [facility] 03-17-2023 11:17-0400 SaO2% (BldA) [Mass fraction] 93 % Dr. Anurag Dolan Work Phone: [facility] 03-17-2023 11:17-0400 Systolic blood pressure 126 mm[Hg] Dr. Anurag Dolan Work Phone: [facility] 03-12-2023 10:40-0400 Body mass index (BMI) [Ratio] 31.99 kg/m2 Anurag Dolan Work Phone: [employer] DO Work Phone: 03-12-2023 10:40-0400 Body surface area Derived from formula 1.95 m2 Anurag Dolan Work Phone: [employer] DO Work Phone: 03-12-2023 10:40-0400 Body temperature 97.9 [degF] Anurag Dolan Work Phone: [facility] [employer] DO Work Phone: 03-12-2023 10:40-0400 Body weight 87.2 kg Anurag Dolan Work Phone: [facility] [employer] DO Work Phone: 03-12-2023 10:40-0400 Diastolic blood pressure 80 mm[Hg] Anurag Dolan Work Phone: [employer] DO Work Phone: 03-12-2023 10:40-0400 Heart rate 73 /min Anurag A [employer] Work Phone: [employer] DO Work Phone: 03-12-2023 10:40-0400 Respiratory rate 18 /min Anurag A [employer] Work Phone: [facility] [employer] DO Work Phone: 03-12-2023 10:40-0400 SaO2% (BldA) [Mass fraction] 97 % Anurag A [employer] Work Phone: [employer] DO Work Phone: 03-12-2023 10:40-0400 Systolic blood pressure 121 mm[Hg] Anurag A [employer] Work Phone: [employer] DO Work Phone: 03-12-2023 10:40-0400 0 1 Anurag A [employer] Work Phone: [employer] DO Work Phone: Comment on above: [employer] 03-05-2023 12:53-0400 Body mass index (BMI) [Ratio] 32.1 kg/m2 Anurag Rogers [employer] Work Phone: [facility] Work Phone: 03-05-2023 12:53-0400 Body surface area Derived from formula 1.95 m2 Anurag A [employer] Work Phone: [facility] Work Phone: 03-05-2023 12:53-0400 Body temperature 97.7 [degF] Anurag Rogers [employer] Work Phone: [facility] Work Phone: 03-05-2023 12:53-0400 Body weight 87.5 kg Anurag Rogers [employer] Work Phone: [facility] Work Phone: 03-05-2023 12:53-0400 Diastolic blood pressure 78 mm[Hg] Anurag Dolan Work Phone: [facility] Work Phone: 03-05-2023 12:53-0400 Heart rate 77 /min Anurag Dolan Work Phone: JO[facility]Fitipfy[facility]VhswtatTr[facility] Work Phone: 03-05-2023 12:53-0400 Respiratory rate 18 /min Anurag Dolan Work Phone: ZD-Ecfscjj-CahunraTr[facility] Work Phone: 03-05-2023 12:53-0400 SaO2% (BldA) [Mass fraction] 99 % Anurag Dolan Work Phone: KJ[facility]Xfruvad-JasqhxoHar[facility] Work Phone: 03-05-2023 12:53-0400 Systolic blood pressure 121 mm[Hg] Anurag Dolan Work Phone: HK[facility]Rdisaco[facility]cdnnxwHar[facility] Work Phone: 03-05-2023 12:53-0400 1 1 Anurag Dolan Work Phone: YB[facility]Gwwqztg-BltezqtHar[facility] Work Phone: Comment on above: [employer] 02-25-2023 10:13-0400 Body height 165.1 cm Anurag Dolan Work Phone: IO-Cgucuct-TpszsznHar[facility] Work Phone: 02-25-2023 10:13-0400 Body mass index (BMI) [Ratio] 30.82 kg/m2 Anurag Dolan Work Phone: KC[facility]Hajigud[facility]AxwdlhdHar[facility] Work Phone: 02-25-2023 10:13-0400 Body surface area Derived from formula 1.91 m2 Anurag Dolan Work Phone: OZ[facility]Mrmdjcp[facility]IrfyzstTr[facility] Work Phone: 02-25-2023 10:13-0400 Body temperature 96.98 [degF] Anurag Dolan Work Phone: AC-Nrjhdot-IyqmaazTr[facility] Work Phone: 02-25-2023 10:13-0400 Body weight 84 kg Anurag Dolan Work Phone: VB-Ouelruo-AebuygzTr[facility] Work Phone: 02-25-2023 10:13-0400 Diastolic blood pressure 76 mm[Hg] Anurag Dolan Work Phone: JR-Nsciwxb-WlsclwxTr[facility] Work Phone: 02-25-2023 10:13-0400 Heart rate 91 /min Anurag Dolan Work Phone: RW-Ypxnypv-LbsppvzTr[facility] Work Phone: 02-25-2023 10:13-0400 Respiratory rate 16 /min Anurag Dolan Work Phone: LN-Zbodavc-CcbhpdpTr[facility] Work Phone: 02-25-2023 10:13-0400 SaO2% (BldA) [Mass fraction] 95 % Anurag Dolan Work Phone: GE-Dtgqqmo-LdxunaiTr[facility] Work Phone: 02-25-2023 10:13-0400 Systolic blood pressure 114 mm[Hg] Anurag Dolan Work Phone: CX-Wbwffnh-LomchyzTr[facility] Work Phone: 02-25-2023 10:13-0400 1 1 Anurag Dolan Work Phone: LL-Mpgkxbe-EmokgqfTr[facility] Work Phone: Comment on above: [employer] 02-23-2023 11:00-0400 Body temperature 97.6 [degF] Dr. Anurag Dolan Work Phone: [facility] 02-23-2023 11:00-0400 Diastolic blood pressure 70 mm[Hg] Dr. Anurag Dolan Work Phone: [facility] 02-23-2023 11:00-0400 Heart rate 84 /min Dr. Anurag Dolan Work Phone: [facility] 02-23-2023 11:00-0400 Respiratory rate 18 /min Dr. Anurag Dolan Work Phone: [facility] 02-23-2023 11:00-0400 SaO2% (BldA) [Mass fraction] 94 % Dr. Anurag Dolan Work Phone: [facility] 02-23-2023 11:00-0400 Systolic blood pressure 110 mm[Hg] Dr. Anurag Dolan Work Phone: [facility] 02-22-2023 15:17-0400 Inhaled oxygen flow rate 6 L/min Dr. Anurag Dolan Work Phone: [facility] 02-17-2023 11:32-0400 Body height 169.[address] Anurag Dolan Work Phone: [facility] 02-17-2023 11:32-0400 Body weight 84.[address] Anurag Dolan Work Phone: [facility] 02-16-2023 11:15-0400 Body mass index (BMI) [Ratio] 29.6 kg/m2 Dr. Anurag Dolan Work Phone: [facility] 02-08-2023 13:50-0400 Body mass index (BMI) [Ratio] 29.9 kg/m2 Dr. Anurag Dolan Work Phone: [facility] 02-08-2023 13:50-0400 Body temperature 97.7 [degF] Dr. Anurag Dolan Work Phone: [facility] 02-08-2023 13:50-0400 Body weight 85.[address] Anurag Dolan Work Phone: [facility] 02-08-2023 13:50-0400 Diastolic blood pressure 67 mm[Hg] Dr. Anurag Dolan Work Phone: [facility] 02-08-2023 13:50-0400 Heart rate 89 /min Dr. Anurag Dolan Work Phone: [facility] 02-08-2023 13:50-0400 Respiratory rate 16 /min Dr. Anurag Dolan Work Phone: [facility] 02-08-2023 13:50-0400 SaO2% (BldA) [Mass fraction] 94 % Dr. Anurag Dolan Work Phone: [facility] 02-08-2023 13:50-0400 Systolic blood pressure 110 mm[Hg] Dr. Anurag Dolan Work Phone: [facility] 01-27-2023 00:00-0500 Body temperature 99.1 [degF] Dr. Anurag Dolan Work Phone: [facility] 01-27-2023 00:00-0500 Diastolic blood pressure 63 mm[Hg] Dr. Anurag Dolan Work Phone: [facility] 01-27-2023 00:00-0500 Heart rate 99 /min Dr. Anurag Dolan Work Phone: [facility] 01-27-2023 00:00-0500 Respiratory rate 20 /min Dr. Anurag Dolan Work Phone: [facility] 01-27-2023 00:00-0500 SaO2% (BldA) [Mass fraction] 96 % Dr. Anurag Dolan Work Phone: [facility] 01-27-2023 00:00-0500 Systolic blood pressure 102 mm[Hg] Dr. Anurag Dolan Work Phone: [facility] 01-26-2023 21:45-0500 Inhaled oxygen flow rate 2 L/min Dr. Anurag Dolan Work Phone: [facility] 01-26-2023 14:55-0500 Body mass index (BMI) [Ratio] 30.9 kg/m2 Dr. Anurag Dolan Work Phone: [facility] 01-26-2023 14:55-0500 Body weight 88.[address] Anurag Dolan Work Phone: [facility] 01-26-2023 13:44-0500 Body height 168.[address] Anurag Dolan Work Phone: [facility] 01-18-2023 11:06-0500 Diastolic blood pressure 94 mm[Hg] Dr. Anurag Dolan Work Phone: [facility] 01-18-2023 11:06-0500 Heart rate 69 /min Dr. Anurag Dolan Work Phone: [facility] 01-18-2023 11:06-0500 Respiratory rate 18 /min Dr. Anurag Dolan Work Phone: [facility] 01-18-2023 11:06-0500 SaO2% (BldA) [Mass fraction] 98 % Dr. Anurag Dolan Work Phone: [facility] 01-18-2023 11:06-0500 Systolic blood pressure 131 mm[Hg] Dr. Anurag Dolan Work Phone: [facility] 01-18-2023 10:26-0500 Body height 168.[address] Anurag Dolan Work Phone: [facility] 01-18-2023 10:26-0500 Body mass index (BMI) [Ratio] 31.1 kg/m2 Dr. Anurag Dolan Work Phone: [facility] 01-18-2023 10:26-0500 Body temperature 98.5 [degF] Dr. Anurag Dolan Work Phone: [facility] 01-18-2023 10:26-0500 Body weight [address] Anurag Dolan Work Phone: [facility] 01-08-2023 13:38-0500 Body mass index (BMI) [Ratio] 32.43 kg/m2 Anurag Dolan Work Phone: BZ-Uhvpozjiri-Aqgq man Work Phone: 01-08-2023 13:38-0500 Body surface area Derived from formula 1.96 m2 Anuragisaac Dolan Work Phone: OM-Igjdlwgfxk-Gqhh man Work Phone: 01-08-2023 13:38-0500 Body temperature 36.8 [degF] Anurag Dolan Work Phone: KA-Smvjeoduos-Pojv man Work Phone: 01-08-2023 13:38-0500 Body weight 88.4 kg Anuragisaac Dolan Work Phone: LT-Owkpuynjif-Cfud man Work Phone: 01-08-2023 13:38-0500 Diastolic blood pressure 88 mm[Hg] Anuragisaac Dolan Work Phone: GF-Qxzvieyael-Spuq man Work Phone: 01-08-2023 13:38-0500 Heart rate 72 /min Anurag Dolan Work Phone: XI-Zzhloezydg-Zeqc man Work Phone: 01-08-2023 13:38-0500 Respiratory rate 16 /min Anurag Dolan Work Phone: VY-Ckvmeogstj-Asmg man Work Phone: 01-08-2023 13:38-0500 SaO2% (BldA) [Mass fraction] 100 % Anurag Dolan Work Phone: UJ-Rmqutkgyqy-Waiv man Work Phone: 01-08-2023 13:38-0500 Systolic blood pressure 124 mm[Hg] Anurag Dolan Work Phone: NR-Xlphdpkckt-Xwie man Work Phone: 12-08-2022 13:24-0500 Body mass index (BMI) [Ratio] 33.86 kg/m2 Anurag Dolan Work Phone: RI[facility]gywots[facility]zhkcL[facility] Work Phone: 12-08-2022 13:24-0500 Body surface area Derived from formula 1.99 m2 Anurag Dolan Work Phone: [facility]bflq[facility]puhqw[facility] [address] Work Phone: 12-08-2022 13:24-0500 Body temperature 97.9 [degF] Anurag Dolan Work Phone: CU-Mnhqtlf-CgtfxubMount[facility] 4600 Work Phone: 12-08-2022 13:24-0500 Body weight 92.31 kg Anurag Dolan Work Phone: EH-Mrfibjx-NwyexfgMount[facility] 4600 Work Phone: 12-08-2022 13:24-0500 Diastolic blood pressure 87 mm[Hg] Anurag Dolan Work Phone: NX-Tjpfhcl-BnggmpeMount[facility] [address] Work Phone: 12-08-2022 13:24-0500 Heart rate 66 /min Anurag Rogers Dolan Work Phone: LW-Yfscosr-TkzjlkcMount[facility] [address] Work Phone: 12-08-2022 13:24-0500 Respiratory rate 16 /min Anurag Rogers Dolan Work Phone: GL-Errrtio-AxmirvoMountrail [facility] 4605 Work Phone: 12-08-2022 13:24-0500 SaO2% (BldA) [Mass fraction] 95 % Anurag Dolan Work Phone: QX-Jnujdds-YaknrmjMountrail [facility] 4600 Work Phone: 12-08-2022 13:24-0500 Systolic blood pressure 141 mm[Hg] Anurag Dolan Work Phone: UI-Jhwblhu-KpzowbwMount[facility] 4600 Work Phone: 12-08-2022 13:24-0500 2 1 Anurag Dolan Work Phone: [facility] [address] Work Phone: Comment on above: [employer] 12-02-2022 11:56-0500 Body height 170.[address] Anurag Dolan Work Phone: [facility] 12-02-2022 11:53-0500 Body mass index (BMI) [Ratio] 31.9 kg/m2 Dr. Anurag Dolan Work Phone: [facility] 12-02-2022 11:53-0500 Body temperature 98.4 [degF] Dr. Anurag Dolan Work Phone: [facility] 12-02-2022 11:53-0500 Body weight 92.[address] Anurag Dolan Work Phone: [facility] 12-02-2022 11:53-0500 Diastolic blood pressure 90 mm[Hg] Dr. Anurag Dolan Work Phone: [facility] 12-02-2022 11:53-0500 Heart rate 60 /min Dr. Anurag Dolan Work Phone: [facility] 12-02-2022 11:53-0500 Respiratory rate 18 /min Dr. Anurag Dolan Work Phone: [facility] 12-02-2022 11:53-0500 SaO2% (BldA) [Mass fraction] 97 % Dr. Anurag Dolan Work Phone: [facility] 12-02-2022 11:53-0500 Systolic blood pressure 150 mm[Hg] Dr. Anurag Dolan Work Phone: [facility] 11-12-2022 11:39-0500 Body mass index (BMI) [Ratio] 32.4 kg/m2 Dr. Anurag Dolan Work Phone: [facility] 11-12-2022 11:39-0500 Body temperature 98.1 [degF] Dr. Anurag Dolan Work Phone: [facility] 11-12-2022 11:39-0500 Body weight 93.[address] Anurag Dolan Work Phone: [facility] 11-12-2022 11:39-0500 Diastolic blood pressure 81 mm[Hg] Dr. Anurag Dolan Work Phone: [facility] 11-12-2022 11:39-0500 Heart rate 71 /min Dr. Anurag Dolan Work Phone: [facility] 11-12-2022 11:39-0500 Respiratory rate 16 /min Dr. Anurag Dolan Work Phone: [facility] 11-12-2022 11:39-0500 SaO2% (BldA) [Mass fraction] 97 % Dr. Anurag Dolan Work Phone: [facility] 11-12-2022 11:39-0500 Systolic blood pressure 130 mm[Hg] Dr. Anurag Dolan Work Phone: [facility] 11-10-2022 11:01-0500 Body height 165.1 cm Anurag Dolan Work Phone: OA-Dhwjuzi-HlacfskMount[facility] 4[address] Work Phone: 11-10-2022 11:01-0500 Body mass index (BMI) [Ratio] 33.86 kg/m2 Anurag Dloan Work Phone: DX-Zmvdatc-VfydmpeMountrail [facility] 4605 Work Phone: 11-10-2022 11:01-0500 Body surface area Derived from formula 1.99 m2 Anurag Dolan Work Phone: KX-Tpygmjf-ChkwxjhMountrail [facility] 4607 Work Phone: 11-10-2022 11:01-0500 Body weight 92.31 kg Anurag Dolan Work Phone: NB-Mjtyjtl-IviusjzMount[facility] 4601 Work Phone: 11-10-2022 11:01-0500 Diastolic blood pressure 78 mm[Hg] Anurag Dolan Work Phone: OJ-Uxlhrjq-XqdbkwuMountrail [facility] 3686 Work Phone: 11-10-2022 11:01-0500 Systolic blood pressure 120 mm[Hg] Anurag Dolan Work Phone: AJ-Gspkymq-MguvapwMountrail [facility] 6421 Work Phone: 11-10-2022 11:01-0500 0 1 Anurag Dolan Work Phone: DF-Eovonzh-EfogcydMountrail [facility] [address] Work Phone: Comment on above: [employer] 10-14-2022 11:45-0500 Body mass index (BMI) [Ratio] 32.7 kg/m2 Dr. Anurag Dolan Work Phone: [facility] 10-14-2022 11:45-0500 Body temperature 98.1 [degF] Dr. Anurag Dolan Work Phone: [facility] 10-14-2022 11:45-0500 Body weight 94.[address] Anurag Dolan Work Phone: [facility] 10-14-2022 11:45-0500 Diastolic blood pressure 84 mm[Hg] Dr. Anurag Dolan Work Phone: [facility] 10-14-2022 11:45-0500 Heart rate 65 /min Dr. Anurag Dolan Work Phone: [facility] 10-14-2022 11:45-0500 Respiratory rate 18 /min Dr. Anurag Dolan Work Phone: [facility] 10-14-2022 11:45-0500 SaO2% (BldA) [Mass fraction] 95 % Dr. Anurag Dolan Work Phone: [facility] 10-14-2022 11:45-0500 Systolic blood pressure 126 mm[Hg] Dr. Anurag Dolan Work Phone: [facility] 10-13-2022 10:16-0500 Body mass index (BMI) [Ratio] 33 kg/m2 Dr. Anurag Dolan Work Phone: [facility] 10-13-2022 10:16-0500 Body temperature 95.1 [degF] Dr. Anurag Dolan Work Phone: [facility] 10-13-2022 10:16-0500 Body weight 95.[address] Anurag Dolan Work Phone: [facility] 10-13-2022 10:16-0500 Diastolic blood pressure 69 mm[Hg] Dr. Anurag Dolan Work Phone: [facility] 10-13-2022 10:16-0500 Heart rate 78 /min Dr. Anurag oDlan Work Phone: [facility] 10-13-2022 10:16-0500 Respiratory rate 20 /min Dr. Anurag Dolan Work Phone: [facility] 10-13-2022 10:16-0500 SaO2% (BldA) [Mass fraction] 95 % Dr. Anurag Dolan Work Phone: [facility] 10-13-2022 10:16-0500 Systolic blood pressure 126 mm[Hg] Dr. Anurag Dolan Work Phone: [facility] 09-28-2022 10:05-0400 Body height 170.[address] Anurag Dolan Work Phone: [facility] Work Phone: 07-15-2022 10:57-0400 Body height 170.[address] Anurag Dolan Work Phone: [facility] Work Phone: 07-15-2022 10:57-0400 Body mass index (BMI) [Ratio] 30.9 kg/m2 Dr. Anurag Dolan Work Phone: [facility] Work Phone: 07-15-2022 10:57-0400 Body temperature 97.8 [degF] Dr. Anurag Dolan Work Phone: [facility] Work Phone: 07-15-2022 10:57-0400 Body weight 89.[address] Anurag Dolan Work Phone: [facility] Work Phone: 07-15-2022 10:57-0400 Diastolic blood pressure 76 mm[Hg] Dr. Anurag Dolan Work Phone: [facility] Work Phone: 07-15-2022 10:57-0400 Heart rate 58 /min Dr. Anurag Dolan Work Phone: [facility] Work Phone: 07-15-2022 10:57-0400 Respiratory rate 16 /min Dr. Anurag Dolan Work Phone: [facility] Work Phone: 07-15-2022 10:57-0400 SaO2% (BldA) [Mass fraction] 98 % Dr. Anurag Dolan Work Phone: [facility] Work Phone: 07-15-2022 10:57-0400 Systolic blood pressure 142 mm[Hg] Dr. Anurag Dolan Work Phone: [facility] Work Phone: 06-22-2022 08:37-0400 Body height 170.[address] Anurag Dolan Work Phone: [facility] Work Phone: 06-22-2022 08:37-0400 Body mass index (BMI) [Ratio] 30.8 kg/m2 Dr. Anurag Dolan Work Phone: [facility] Work Phone: 06-22-2022 08:37-0400 Body weight 89.[address] Anurag Dolan Work Phone: [facility] Work Phone: 06-22-2022 08:37-0400 Diastolic blood pressure 80 mm[Hg] Dr. Anurag Dolan Work Phone: [facility] Work Phone: 06-22-2022 08:37-0400 Heart rate 76 /min Dr. Anurag Dolan Work Phone: [facility] Work Phone: 06-22-2022 08:37-0400 Respiratory rate 18 /min Dr. Anurag Dolan Work Phone: [facility] Work Phone: 06-22-2022 08:37-0400 SaO2% (BldA) [Mass fraction] 96 % Dr. Anurag Dolan Work Phone: [facility] Work Phone: 06-22-2022 08:37-0400 Systolic blood pressure 127 mm[Hg] Dr. Anurag Dolan Work Phone: [facility] Work Phone: 06-15-2022 13:18-0400 Diastolic blood pressure 82 mm[Hg] Dr. Anurag Dolan Work Phone: [facility] 06-15-2022 13:18-0400 Heart rate 66 /min Dr. Anurag Dolan Work Phone: [facility] 06-15-2022 13:18-0400 Systolic blood pressure 138 mm[Hg] Dr. Anurag Dolan Work Phone: [facility] 06-15-2022 10:11-0400 Body mass index (BMI) [Ratio] 30.7 kg/m2 Dr. Anurag Dolan Work Phone: [facility] Work Phone: 06-15-2022 10:11-0400 Body temperature 97.9 [degF] Dr. Anurag Dolan Work Phone: [facility] Work Phone: 06-15-2022 10:11-0400 Body weight 88.[address] Anurag Dolan Work Phone: [facility] Work Phone: 06-15-2022 10:11-0400 Diastolic blood pressure 90 mm[Hg] Dr. Anurag Dolan Work Phone: [facility] Work Phone: 06-15-2022 10:11-0400 Heart rate 60 /min Dr. Anurag Dolan Work Phone: [facility] Work Phone: 06-15-2022 10:11-0400 Respiratory rate 16 /min Dr. Anurag Dolan Work Phone: [facility] Work Phone: 06-15-2022 10:11-0400 SaO2% (BldA) [Mass fraction] 98 % Dr. Anurag Dolan Work Phone: [facility] Work Phone: 06-15-2022 10:11-0400 Systolic blood pressure 148 mm[Hg] Dr. Anurag Dolan Work Phone: [facility] Work Phone: 05-25-2022 12:46-0400 Respiratory rate 16 /min Dr. Anurag Dolan Work Phone: [facility] 05-25-2022 12:46-0400 SaO2% (BldA) [Mass fraction] 97 % Dr. Anurag Dolan Work Phone: [facility] 05-25-2022 11:06-0400 Body mass index (BMI) [Ratio] 31.1 kg/m2 Dr. Anurag Dolan Work Phone: [facility] 05-25-2022 11:06-0400 Body weight 90.[address] Anurag Dolan Work Phone: [facility] 05-25-2022 10:21-0400 Body mass index (BMI) [Ratio] 31.1 kg/m2 Dr. Anurag Dolan Work Phone: [facility] Work Phone: 05-25-2022 10:21-0400 Body temperature 97.7 [degF] Dr. Anurag Dolan Work Phone: [facility] Work Phone: 05-25-2022 10:21-0400 Body weight 90.[address] Anurag Dolan Work Phone: [facility] Work Phone: 05-25-2022 10:21-0400 Diastolic blood pressure 89 mm[Hg] Dr. Anurag Dolan Work Phone: [facility] Work Phone: 05-25-2022 10:21-0400 Heart rate 59 /min Dr. Anurag Dolan Work Phone: [facility] Work Phone: 05-25-2022 10:21-0400 Respiratory rate 16 /min Dr. Anurag Dolan Work Phone: [facility] Work Phone: 05-25-2022 10:21-0400 SaO2% (BldA) [Mass fraction] 97 % Dr. Anurag Dolan Work Phone: [facility] Work Phone: 05-25-2022 10:21-0400 Systolic blood pressure 155 mm[Hg] Dr. Anurag Dolan Work Phone: [facility] Work Phone: 05-12-2022 11:05-0400 Body mass index (BMI) [Ratio] 32.8 kg/m2 Anurag Dolan Work Phone: [facility] Work Phone: 05-12-2022 11:05-0400 Body surface area Derived from formula 1.97 m2 Anurag Dolan Work Phone: JJ-Fpibhxr-Juylhbj[facility] 9748 Work Phone: 05-12-2022 11:05-0400 Body temperature 97.7 [degF] Anurag Dolan Work Phone: TC-Zwpsvbq-[facility]pojcqf[facility] 4600 Work Phone: 05-12-2022 11:05-0400 Body weight 89.4 kg Anurag Dolan Work Phone: TD-Nhyqdmg-HjfbdutMount[facility] 4607 Work Phone: 05-12-2022 11:05-0400 Diastolic blood pressure 86 mm[Hg] Anurag Dolan Work Phone: AW-Bxotcfp-StiwjdrMount[facility] 4603 Work Phone: 05-12-2022 11:05-0400 Heart rate 64 /min Anurag Dolan Work Phone: HE-Kkcaeqk-DsmltiaMount[facility] 4604 Work Phone: 05-12-2022 11:05-0400 Respiratory rate 18 /min Anurag Dolan Work Phone: LR-Iaemyek-NzmmwyqMount[facility] 4606 Work Phone: 05-12-2022 11:05-0400 SaO2% (BldA) [Mass fraction] 97 % Anurag Dolan Work Phone: WQ-Dvcfshc-LxlyyclMount[facility] 4603 Work Phone: 05-12-2022 11:05-0400 Systolic blood pressure 127 mm[Hg] Anurag Dolan Work Phone: IQ-Zktdykp-AntoqvkMount[facility] 460 Work Phone: 05-12-2022 11:05-0400 0 1 Anurag Dolan Work Phone: NZ-Rtbejdu-SojyencMount[facility] 4602 Work Phone: Comment on above: [employer] 05-05-2022 12:39-0400 Body temperature 96.7 [degF] Dr. Anurag Dolan Work Phone: [facility] 05-05-2022 10:20-0400 Body mass index (BMI) [Ratio] 30.8 kg/m2 Dr. Anurag Dolan Work Phone: [facility] Work Phone: 05-05-2022 10:20-0400 Body temperature 96.8 [degF] Dr. Anurag Dolan Work Phone: [facility] Work Phone: 05-05-2022 10:20-0400 Body weight 89.[address] Anurag Dolan Work Phone: [facility] Work Phone: 05-05-2022 10:20-0400 Diastolic blood pressure 82 mm[Hg] Dr. Anurag Dolan Work Phone: [facility] Work Phone: 05-05-2022 10:20-0400 Heart rate 59 /min Dr. Anurag Dolan Work Phone: [facility] Work Phone: 05-05-2022 10:20-0400 Respiratory rate 16 /min Dr. Anurag Dolan Work Phone: [facility] Work Phone: 05-05-2022 10:20-0400 SaO2% (BldA) [Mass fraction] 98 % Dr. Anurag Dolan Work Phone: [facility] Work Phone: 05-05-2022 10:20-0400 Systolic blood pressure 144 mm[Hg] Dr. Anurag Dolan Work Phone: [facility] Work Phone: 04-13-2022 10:39-0400 Body mass index (BMI) [Ratio] 30.5 kg/m2 Dr. Anurag Dolan Work Phone: [facility] Work Phone: 04-13-2022 10:39-0400 Body temperature 98.6 [degF] Dr. Anurag Dolan Work Phone: [facility] Work Phone: 04-13-2022 10:39-0400 Body weight 88.[address] Anurag Dolan Work Phone: [facility] Work Phone: 04-13-2022 10:39-0400 Diastolic blood pressure 86 mm[Hg] Dr. Anurag Dolan Work Phone: [facility] Work Phone: 04-13-2022 10:39-0400 Heart rate 64 /min Dr. Anurag Dolan Work Phone: [facility] Work Phone: 04-13-2022 10:39-0400 Respiratory rate 17 /min Dr. Anurag Dolan Work Phone: [facility] Work Phone: 04-13-2022 10:39-0400 SaO2% (BldA) [Mass fraction] 96 % Dr. Anurag Dolan Work Phone: [facility] Work Phone: 04-13-2022 10:39-0400 Systolic blood pressure 144 mm[Hg] Dr. Anurag Dolan Work Phone: [facility] Work Phone: 04-07-2022 09:41-0400 Body mass index (BMI) [Ratio] 30.2 kg/m2 Dr. Anurag Dolan Work Phone: [facility] Work Phone: 04-07-2022 09:41-0400 Body weight 87.[address] Anurag Dolan Work Phone: [facility] Work Phone: 04-07-2022 09:41-0400 Diastolic blood pressure 72 mm[Hg] Dr. Anurag Dolan Work Phone: [facility] Work Phone: 04-07-2022 09:41-0400 Heart rate 76 /min Dr. Anurag Dolan Work Phone: [facility] Work Phone: 04-07-2022 09:41-0400 Systolic blood pressure 122 mm[Hg] Dr. Anurag Dolan Work Phone: [facility] Work Phone: 03-23-2022 10:50-0400 Body height 170.[address] Anurag Dolan Work Phone: [facility] Work Phone: 03-23-2022 10:50-0400 Body mass index (BMI) [Ratio] 30.1 kg/m2 Dr. Anurag Dolan Work Phone: [facility] Work Phone: 03-23-2022 10:50-0400 Body weight 87.[address] Anurag Dolan Work Phone: [facility] Work Phone: 03-23-2022 10:36-0400 Body mass index (BMI) [Ratio] 30.1 kg/m2 Dr. Anurag Dolan Work Phone: [facility] Work Phone: 03-23-2022 10:36-0400 Body temperature 97.6 [degF] Dr. Anurag Dolan Work Phone: [facility] Work Phone: 03-23-2022 10:36-0400 Body weight 87.[address] Anurag Dolan Work Phone: [facility] Work Phone: 03-23-2022 10:36-0400 Diastolic blood pressure 78 mm[Hg] Dr. Anurag Dolan Work Phone: [facility] Work Phone: 03-23-2022 10:36-0400 Heart rate 66 /min Dr. Anurag Dolan Work Phone: [facility] Work Phone: 03-23-2022 10:36-0400 Respiratory rate 16 /min Dr. Anurag Dolan Work Phone: [facility] Work Phone: 03-23-2022 10:36-0400 SaO2% (BldA) [Mass fraction] 98 % Dr. Anurag Dolan Work Phone: [facility] Work Phone: 03-23-2022 10:36-0400 Systolic blood pressure 123 mm[Hg] Dr. Anurag Dolan Work Phone: [facility] Work Phone: 03-23-2022 10:36-0400 Body mass index (BMI) [Ratio] 30.1 kg/m2 Dr. Anurag Dolan Work Phone: [facility] Work Phone: 03-23-2022 10:36-0400 Body temperature 97.6 [degF] Dr. Anurag Dolan Work Phone: [facility] Work Phone: 03-23-2022 10:36-0400 Body weight 87.[address] Anurag Dolan Work Phone: [facility] Work Phone: 03-23-2022 10:36-0400 Diastolic blood pressure 78 mm[Hg] Dr. Anurag Dolan Work Phone: [facility] Work Phone: 03-23-2022 10:36-0400 Heart rate 66 /min Dr. Anurag Dolan Work Phone: [facility] Work Phone: 03-23-2022 10:36-0400 Respiratory rate 16 /min Dr. Anurag Dolan Work Phone: [facility] Work Phone: 03-23-2022 10:36-0400 SaO2% (BldA) [Mass fraction] 98 % Dr. Anurag Dolan Work Phone: [facility] Work Phone: 03-23-2022 10:36-0400 Systolic blood pressure 123 mm[Hg] Dr. Anurag Dolan Work Phone: [facility] Work Phone: 03-13-2022 09:32-0400 Body temperature 98.9 [degF] Dr. Anurag Dolan Work Phone: [facility] Work Phone: 03-13-2022 09:32-0400 Body weight 89.[address] Anurag Dolan Work Phone: [facility] Work Phone: 03-13-2022 09:32-0400 Diastolic blood pressure 84 mm[Hg] Dr. Anurag Dolan Work Phone: [facility] Work Phone: 03-13-2022 09:32-0400 Heart rate 82 /min Dr. Anurag Dolan Work Phone: [facility] Work Phone: 03-13-2022 09:32-0400 SaO2% (BldA) [Mass fraction] 98 % Dr. Anurag Dolan Work Phone: [facility] Work Phone: 03-13-2022 09:32-0400 Systolic blood pressure 118 mm[Hg] Dr. Anurag Dolan Work Phone: [facility] Work Phone: 03-02-2022 14:15-0400 Diastolic blood pressure 82 mm[Hg] Dr. Anurag Dolan Work Phone: [facility] Work Phone: 03-02-2022 14:15-0400 Heart rate 96 /min Dr. Anurag Dolan Work Phone: [facility] Work Phone: 03-02-2022 14:15-0400 Respiratory rate 16 /min Dr. Anurag Dolan Work Phone: [facility] Work Phone: 03-02-2022 14:15-0400 SaO2% (BldA) [Mass fraction] 97 % Dr. Anurag Dolan Work Phone: [facility] Work Phone: 03-02-2022 14:15-0400 Systolic blood pressure 135 mm[Hg] Dr. Anurag Dolan Work Phone: [facility] Work Phone: 03-02-2022 11:33-0400 Body height 170.[address] Anurag Dolan Work Phone: [facility] Work Phone: 03-02-2022 11:33-0400 Body mass index (BMI) [Ratio] 31.5 kg/m2 Dr. Anurag Dolan Work Phone: [facility] Work Phone: 03-02-2022 11:33-0400 Body temperature 97.9 [degF] Dr. Anurag Dolan Work Phone: [facility] Work Phone: 03-02-2022 11:33-0400 Body weight 91.[address] Anurag Dolan Work Phone: [facility] Work Phone: 03-02-2022 11:33-0400 Diastolic blood pressure 82 mm[Hg] Dr. Anurag Dolan Work Phone: [facility] Work Phone: 03-02-2022 11:33-0400 Heart rate 59 /min Dr. Anurag Dolan Work Phone: [facility] Work Phone: 03-02-2022 11:33-0400 Respiratory rate 16 /min Dr. Anurag Dolan Work Phone: [facility] Work Phone: 03-02-2022 11:33-0400 SaO2% (BldA) [Mass fraction] 97 % Dr. Anurag Dolan Work Phone: [facility] Work Phone: 03-02-2022 11:33-0400 Systolic blood pressure 131 mm[Hg] Dr. Anurag Dolan Work Phone: [facility] Work Phone: 02-23-2022 12:30-0400 Body temperature 97.2 [degF] Dr. Anurag Dolan Work Phone: [facility] Work Phone: 02-23-2022 12:30-0400 Diastolic blood pressure 88 mm[Hg] Dr. Anurag Dolan Work Phone: [facility] Work Phone: 02-23-2022 12:30-0400 Heart rate 63 /min Dr. Anurag Dolan Work Phone: [facility] Work Phone: 02-23-2022 12:30-0400 Respiratory rate 18 /min Dr. Anurag Dolan Work Phone: [facility] Work Phone: 02-23-2022 12:30-0400 SaO2% (BldA) [Mass fraction] 96 % Dr. Anurag Dolan Work Phone: [facility] Work Phone: 02-23-2022 12:30-0400 Systolic blood pressure 138 mm[Hg] Dr. Anurag Dolan Work Phone: [facility] Work Phone: 02-23-2022 06:00-0400 Body weight 89.[address] Anurag Dolan Work Phone: [facility] Work Phone: 02-20-2022 21:28-0400 Body height 167.[address] Anurag Dolan Work Phone: [facility] Work Phone: 02-20-2022 21:28-0400 Body mass index (BMI) [Ratio] 32.4 kg/m2 Dr. Anurag Dolan Work Phone: [facility] Work Phone: 02-20-2022 21:00-0400 Body temperature 97.8 [degF] Dr. Anurag Dolan Work Phone: [facility] Work Phone: 02-20-2022 21:00-0400 Diastolic blood pressure 83 mm[Hg] Dr. Anurag Dolan Work Phone: [facility] Work Phone: 02-20-2022 21:00-0400 Heart rate 75 /min Dr. Anurag Dolan Work Phone: [facility] Work Phone: 02-20-2022 21:00-0400 Respiratory rate 16 /min Dr. Anurag Dolan Work Phone: [facility] Work Phone: 02-20-2022 21:00-0400 SaO2% (BldA) [Mass fraction] 98 % Dr. Anurag Dolan Work Phone: [facility] Work Phone: 02-20-2022 21:00-0400 Systolic blood pressure 142 mm[Hg] Dr. Anurag Dolan Work Phone: [facility] Work Phone: 02-20-2022 18:22-0400 Body height 167.[address] Anurag Dolan Work Phone: [facility] Work Phone: 02-20-2022 18:22-0400 Body mass index (BMI) [Ratio] 32.4 kg/m2 Dr. Anurag Dolan Work Phone: [facility] Work Phone: 02-20-2022 18:22-0400 Body weight 91.[address] Anurag oDlan Work Phone: [facility] Work Phone: 02-09-2022 13:40-0400 Body temperature 96.5 [degF] Dr. Anurag Dolan Work Phone: [facility] Work Phone: 02-09-2022 13:40-0400 Diastolic blood pressure 76 mm[Hg] Dr. Anurag Dolan Work Phone: [facility] Work Phone: 02-09-2022 13:40-0400 Heart rate 64 /min Dr. Anurag Dolan Work Phone: [facility] Work Phone: 02-09-2022 13:40-0400 Respiratory rate 16 /min Dr. Anurag Dolan Work Phone: [facility] Work Phone: 02-09-2022 13:40-0400 SaO2% (BldA) [Mass fraction] 98 % Dr. Anurag Dolan Work Phone: [facility] Work Phone: 02-09-2022 13:40-0400 Systolic blood pressure 136 mm[Hg] Dr. Anurag Dolan Work Phone: [facility] Work Phone: 02-09-2022 12:02-0400 Body mass index (BMI) [Ratio] 31.9 kg/m2 Dr. Anurag Dolan Work Phone: [facility] Work Phone: 02-09-2022 12:02-0400 Body weight 92.[address] Anurag Dolan Work Phone: [facility] Work Phone: 02-09-2022 11:16-0400 Body mass index (BMI) [Ratio] 31.9 kg/m2 Dr. Anurag Dolan Work Phone: [facility] Work Phone: 02-09-2022 11:16-0400 Body temperature 98.6 [degF] Dr. Anurag Dolan Work Phone: [facility] Work Phone: 02-09-2022 11:16-0400 Body weight 92.[address] Anurag Dolan Work Phone: [facility] Work Phone: 02-09-2022 11:16-0400 Diastolic blood pressure 84 mm[Hg] Dr. Anurag Dolan Work Phone: [facility] Work Phone: 02-09-2022 11:16-0400 Heart rate 51 /min Dr. Anurag Dolan Work Phone: [facility] Work Phone: 02-09-2022 11:16-0400 Respiratory rate 15 /min Dr. Anurag Dolan Work Phone: [facility] Work Phone: 02-09-2022 11:16-0400 SaO2% (BldA) [Mass fraction] 95 % Dr. Anurag Dolan Work Phone: [facility] Work Phone: 02-09-2022 11:16-0400 Systolic blood pressure 136 mm[Hg] Dr. Anurag Dolan Work Phone: [facility] Work Phone: 01-20-2022 09:32-0500 Body mass index (BMI) [Ratio] 31.8 kg/m2 Dr. Anurag Dolan Work Phone: [facility] Work Phone: 01-20-2022 09:32-0500 Body temperature 98.1 [degF] Dr. Anurag Dolan Work Phone: [facility] Work Phone: 01-20-2022 09:32-0500 Body weight 92.[address] Anurag Dolan Work Phone: [facility] Work Phone: 01-20-2022 09:32-0500 Diastolic blood pressure 86 mm[Hg] Dr. Anurag Dolan Work Phone: [facility] Work Phone: 01-20-2022 09:32-0500 Heart rate 66 /min Dr. Anurag Dolan Work Phone: [facility] Work Phone: 01-20-2022 09:32-0500 Respiratory rate 16 /min Dr. Anurag Dolan Work Phone: [facility] Work Phone: 01-20-2022 09:32-0500 SaO2% (BldA) [Mass fraction] 96 % Dr. Anurag Dolan Work Phone: [facility] Work Phone: 01-20-2022 09:32-0500 Systolic blood pressure 133 mm[Hg] Dr. Anurag Dolan Work Phone: [facility] Work Phone: 01-13-2022 10:38-0500 Body mass index (BMI) [Ratio] 34.16 kg/m2 Anurag Rogers [place] Work Phone: [facility] Work Phone: 01-13-2022 10:38-0500 Body surface area Derived from formula 2 m2 Anurag Rogers [place] Work Phone: IV[facility]Rmhq[facility]ivudTr[facility] Work Phone: 01-13-2022 10:38-0500 Body temperature 96.98 [degF] Anurag Rogers [place] Work Phone: UD[facility]Ctog[facility]zz[facility] Work Phone: 01-13-2022 10:38-0500 Body weight 93.1 kg Anurag Rogers [place] Work Phone: QD[facility]Igbl[facility]jpkkrfStephen[facility] Work Phone: 01-13-2022 10:38-0500 Diastolic blood pressure 87 mm[Hg] Anurag Dolan Work Phone: HV[facility]kpc[facility]gf[facility] Work Phone: 01-13-2022 10:38-0500 Heart rate 57 /min Anurag Dolan Work Phone: OC-Mqez-Vdlzdocv-[facility] Work Phone: 01-13-2022 10:38-0500 Respiratory rate 16 /min Anurag Dolan Work Phone: VN-Cyuu-Wcgtadqs-[facility] Work Phone: 01-13-2022 10:38-0500 Systolic blood pressure 150 mm[Hg] Anurag Dolan Work Phone: AR-Dogf-Chbiqhoq-[facility] Work Phone: 12-31-2021 09:17-0500 Body mass index (BMI) [Ratio] 32.3 kg/m2 Dr. Anurag Dolan Work Phone: [facility] [place] Work Phone: 12-31-2021 09:17-0500 Body temperature 97 [degF] Dr. Anurag Dolan Work Phone: [facility] Work Phone: 12-31-2021 09:17-0500 Body weight 90.[address] Anurag Dolan Work Phone: [facility] Work Phone: 12-31-2021 09:17-0500 Diastolic blood pressure 95 mm[Hg] Dr. Anurag Dolan Work Phone: [facility] Work Phone: 12-31-2021 09:17-0500 Heart rate 73 /min Dr. Anurag Dolan Work Phone: [facility] Work Phone: 12-31-2021 09:17-0500 Respiratory rate 16 /min Dr. Anurag Dolan Work Phone: [facility] Work Phone: 12-31-2021 09:17-0500 Systolic blood pressure 114 mm[Hg] Dr. Anurag Dolan Work Phone: [facility] Work Phone: 12-29-2021 09:34-0500 Body mass index (BMI) [Ratio] 32.1 kg/m2 Dr. Anurag Dolan Work Phone: [facility] Work Phone: 12-29-2021 09:34-0500 Body temperature 97.6 [degF] Dr. Anurag Dolan Work Phone: [facility] Work Phone: 12-29-2021 09:34-0500 Body weight 92.[address] Anurag Dolan Work Phone: [facility] Work Phone: 12-29-2021 09:34-0500 Diastolic blood pressure 87 mm[Hg] Dr. Anurag Dolan Work Phone: [facility] Work Phone: 12-29-2021 09:34-0500 Heart rate 62 /min Dr. Anurag Dolan Work Phone: [facility] Work Phone: 12-29-2021 09:34-0500 Respiratory rate 16 /min Dr. Anurag Dolan Work Phone: [facility] Work Phone: 12-29-2021 09:34-0500 SaO2% (BldA) [Mass fraction] 97 % Dr. Anurag Dolan Work Phone: [facility] Work Phone: 12-29-2021 09:34-0500 Systolic blood pressure 154 mm[Hg] Dr. Anurag Dolan Work Phone: [facility] Work Phone: 12-08-2021 09:37-0500 Body mass index (BMI) [Ratio] 31.5 kg/m2 Dr. Anurag Dolan Work Phone: [facility] Work Phone: 12-08-2021 09:37-0500 Body temperature 97.6 [degF] Dr. Anurag Dolan Work Phone: [facility] Work Phone: 12-08-2021 09:37-0500 Body weight 91.[address] Anurag Dolan Work Phone: [facility] Work Phone: 12-08-2021 09:37-0500 Diastolic blood pressure 85 mm[Hg] Dr. Anurag Dolan Work Phone: [facility] Work Phone: 12-08-2021 09:37-0500 Heart rate 56 /min Dr. Anurag Dolan Work Phone: [facility] Work Phone: 12-08-2021 09:37-0500 Respiratory rate 16 /min Dr. Anurag Dolan Work Phone: [facility] Work Phone: 12-08-2021 09:37-0500 SaO2% (BldA) [Mass fraction] 95 % Dr. Anurag Dolan Work Phone: [facility] Work Phone: 12-08-2021 09:37-0500 Systolic blood pressure 134 mm[Hg] Dr. Anurag Dolan Work Phone: [facility] Work Phone: 11-18-2021 10:38-0500 Body mass index (BMI) [Ratio] 31.5 kg/m2 Dr. Anurag Dolan Work Phone: [facility] Work Phone: 11-18-2021 10:38-0500 Body temperature 98.3 [degF] Dr. Anurag Dolan Work Phone: [facility] Work Phone: 11-18-2021 10:38-0500 Body weight 91.[address] Anurag Dolan Work Phone: [facility] Work Phone: 11-18-2021 10:38-0500 Diastolic blood pressure 88 mm[Hg] Dr. Anurag Dolan Work Phone: [facility] Work Phone: 11-18-2021 10:38-0500 Heart rate 59 /min Dr. Anurag Dolan Work Phone: [facility] Work Phone: 11-18-2021 10:38-0500 Respiratory rate 16 /min Dr. Anurag Dolan Work Phone: [facility] Work Phone: 11-18-2021 10:38-0500 SaO2% (BldA) [Mass fraction] 95 % Dr. Anurag Dolan Work Phone: [facility] Work Phone: 11-18-2021 10:38-0500 Systolic blood pressure 149 mm[Hg] Dr. Anurag Dolan Work Phone: [facility] Work Phone: 11-04-2021 14:28-0500 Body mass index (BMI) [Ratio] 32 kg/m2 Dr. Anurag Dolan Work Phone: [facility] Work Phone: 11-04-2021 14:28-0500 Body temperature 97.1 [degF] Dr. Anurag Dolan Work Phone: [facility] Work Phone: 11-04-2021 14:28-0500 Body weight 92.[address] Anurag Dolan Work Phone: [facility] Work Phone: 11-04-2021 14:28-0500 Diastolic blood pressure 82 mm[Hg] Dr. Anurag Dolan Work Phone: [facility] Work Phone: 11-04-2021 14:28-0500 Heart rate 41 /min Dr. Anurag Dolan Work Phone: [facility] Work Phone: 11-04-2021 14:28-0500 Respiratory rate 18 /min Dr. Anurag Dolan Work Phone: [facility] Work Phone: 11-04-2021 14:28-0500 SaO2% (BldA) [Mass fraction] 97 % Dr. Anurag Dolan Work Phone: [facility] Work Phone: 11-04-2021 14:28-0500 Systolic blood pressure 130 mm[Hg] Dr. Anurag Dolan Work Phone: [facility] Work Phone: 10-27-2021 09:36-0500 Body mass index (BMI) [Ratio] 31.8 kg/m2 Dr. Anurag Dolan Work Phone: [facility] Work Phone: 10-27-2021 09:36-0500 Body temperature 98 [degF] Dr. Anurag Dolan Work Phone: [facility] Work Phone: 10-27-2021 09:36-0500 Body weight 92.[address] Anurag Dolan Work Phone: [facility] Work Phone: 10-27-2021 09:36-0500 Diastolic blood pressure 105 mm[Hg] Dr. Anurag Dolan Work Phone: [facility] Work Phone: 10-27-2021 09:36-0500 Heart rate 61 /min Dr. Anurag Dolan Work Phone: [facility] Work Phone: 10-27-2021 09:36-0500 Respiratory rate 16 /min Dr. Anurag Dolan Work Phone: [facility] Work Phone: 10-27-2021 09:36-0500 SaO2% (BldA) [Mass fraction] 98 % Dr. Anurag Dolan Work Phone: [facility] Work Phone: 10-27-2021 09:36-0500 Systolic blood pressure 162 mm[Hg] Dr. Anurag Dolan Work Phone: [facility] Work Phone: 10-07-2021 11:38-0500 Body height 165.1 cm Anurag Dolan Work Phone: [facility] Work Phone: 10-07-2021 11:38-0500 Body mass index (BMI) [Ratio] 32.45 kg/m2 Anuarg Dolan Work Phone: [facility] [address] Work Phone: 10-07-2021 11:38-0500 Body surface area Derived from formula 1.96 m2 Anurag Dolan Work Phone: [facility]tut[facility] [address] Work Phone: 10-07-2021 11:38-0500 Body weight 88.45 kg Anurag Dolan Work Phone: SW[facility]Pubghlq[facility]nowl[facility] 44[address] Work Phone: 10-07-2021 11:38-0500 Diastolic blood pressure 90 mm[Hg] Anurag Dolan Work Phone: XK[facility]tmbyhy[facility]wmgf[facility] [address] Work Phone: 10-07-2021 11:38-0500 Heart rate 59 /min Anurag Dolan Work Phone: SQ[facility]arlzrc[facility]kuojge[facility] [address] Work Phone: 10-07-2021 11:38-0500 Systolic blood pressure 140 mm[Hg] Anurag Dolan Work Phone: CI[facility]ivumz[facility]untj[facility] [address] Work Phone: 06-17-2021 14:37-0400 Body mass index (BMI) [Ratio] 32.45 kg/m2 Anurag Sue Dolan Work Phone: TH-Xfublen-Xrbgt Main Work Phone: 06-17-2021 14:37-0400 Body surface area Derived from formula 1.96 m2 Anurag Sue Dolan Work Phone: AA-Ylzdath-Irzjx Main Work Phone: 06-17-2021 14:37-0400 Body weight 88.45 kg Anurag Sue Dolan Work Phone: IP-Xserkrs-Kslok Main Work Phone: 06-17-2021 14:37-0400 Diastolic blood pressure 87 mm[Hg] Anurag Sue Dolan Work Phone: AA-Foqslrl-Klboo Main Work Phone: 06-17-2021 14:37-0400 Heart rate 77 /min Anurag Sue Dolan Work Phone: SL-Egyxblo-Grzar Main Work Phone: 06-17-2021 14:37-0400 SaO2% (BldA) [Mass fraction] 98 % Anuragisaac Dolan Work Phone: PE-Lzhgyww-Sbtza Main Work Phone: 06-17-2021 14:37-0400 Systolic blood pressure 139 mm[Hg] Anurag Sue Dolan Work Phone: LU-Cvcaiyo-Yuaxb Main Work Phone: 06-03-2021 14:20-0400 Body height 165.1 cm Anurag Sue Dolan Work Phone: ND-Obakwxm-Yvibivg d 150 Work Phone: 06-03-2021 14:20-0400 Body mass index (BMI) [Ratio] 32.79 kg/m2 Anurag Sue Dolan Work Phone: VQ-Zchgdoa-Wnjbvsg d 150 Work Phone: 06-03-2021 14:20-0400 Body surface area Derived from formula 1.97 m2 Anurag Dolan Work Phone: NG-Iycsgmy-Pqsexhz d 150 Work Phone: 06-03-2021 14:20-0400 Body weight 89.39 kg Anurag Dolan Work Phone: LR-Nbjipmk-Nstxxjw d 150 Work Phone: 06-03-2021 14:20-0400 Diastolic blood pressure 87 mm[Hg] Anurag Dolan Work Phone: FG-Axklrcy-Ncksnyt d 150 Work Phone: 06-03-2021 14:20-0400 Heart rate 67 /min Anurag Dolan Work Phone: MO-Rbwkiln-Jndqsnn d 150 Work Phone: 06-03-2021 14:20-0400 SaO2% (BldA) [Mass fraction] 100 % Anurag Dolan Work Phone: GW-Uixszsl-Gvtbtuz d 150 Work Phone: 06-03-2021 14:20-0400 Systolic blood pressure 134 mm[Hg] Anurag Dolan Work Phone: MT-Hruxkzr-Dpclmfp d 150 Work Phone: 05-27-2021 15:00-0400 Body temperature 97.88 [degF] Anuragisaac Dolan Other Phone: [facility] 05-27-2021 15:00-0400 Diastolic blood pressure 73 mm[Hg] Anurag Bethany Other Phone: [facility] 05-27-2021 15:00-0400 Heart rate 74 /min Anurag Dolan Other Phone: [facility] 05-27-2021 15:00-0400 Respiratory rate 18 /min Anurag Dolan Other Phone: [facility] 05-27-2021 15:00-0400 SaO2% (BldA) [Mass fraction] 94 % Anurag Dolan Other Phone: [facility] 05-27-2021 15:00-0400 Systolic blood pressure 114 mm[Hg] Anurag Dolan Other Phone: [facility] 05-13-2021 09:26-0400 Body height 165.1 cm Anuragisaac Dolan Work Phone: YV-Vmlccyb-Wxmtisg d 150 Work Phone: 05-13-2021 09:26-0400 Body mass index (BMI) [Ratio] 33.28 kg/m2 Anuragisaac Dolan Work Phone: CQ-Jiaptfx-Avrnknq d 150 Work Phone: 05-13-2021 09:26-0400 Body surface area Derived from formula 1.98 m2 Anuragisaac Dolan Work Phone: BE-Bkcwddw-Hqqpbtm d 150 Work Phone: 05-13-2021 09:26-0400 Body weight 90.72 kg Anuragisaac Dolan Work Phone: ML-Tbrjdhe-Fmcefep d 150 Work Phone: 05-13-2021 09:26-0400 Diastolic blood pressure 82 mm[Hg] Anurag Dolan Work Phone: KY-Mqnpxis-Qsgupad d 150 Work Phone: 05-13-2021 09:26-0400 Heart rate 64 /min Anuragisaac Dolan Work Phone: TM-Qkdviwa-Wjshzch d 150 Work Phone: 05-13-2021 09:26-0400 SaO2% (BldA) [Mass fraction] 96 % Anurag Dolan Work Phone: WQ-Tvsziur-Vyqacpn d 150 Work Phone: 05-13-2021 09:26-0400 Systolic blood pressure 169 mm[Hg] Anurag Dolan Work Phone: DL-Miviuvz-Vdjysis d 150 Work Phone: 04-21-2021 10:47-0400 Body height 168.91 cm Referring Provider Unknown [facility] Work Phone: 04-21-2021 10:47-0400 Body mass index (BMI) [Ratio] 32.93 kg/m2 Referring Provider Unknown [facility] Work Phone: 04-21-2021 10:47-0400 Body surface area Derived from formula 2.04 m2 Referring Provider Unknown [facility] Work Phone: 04-21-2021 10:47-0400 Body temperature 36 [degF] Referring Provider Unknown [facility] Work Phone: 04-21-2021 10:47-0400 Body weight 93.95 kg Referring Provider Unknown [facility] Work Phone: 04-21-2021 10:47-0400 Diastolic blood pressure 94 mm[Hg] Referring Provider Unknown [facility] Work Phone: 04-21-2021 10:47-0400 Heart rate 69 /min Referring Provider Unknown [facility] Work Phone: 04-21-2021 10:47-0400 Respiratory rate 16 /min Referring Provider Unknown [facility] Work Phone: 04-21-2021 10:47-0400 SaO2% (BldA) [Mass fraction] 96 % Referring Provider Unknown [facility] Work Phone: 04-21-2021 10:47-0400 Systolic blood pressure 168 mm[Hg] Referring Provider Unknown [facility] Work Phone: 04-21-2021 10:47-0400 2 1 Referring Provider Unknown [facility] Work Phone: Comment on above: [employer] 1940 23:00-0500 >na< Adolfo Pond [facility]atology NEGATED: Highlighted [id number] 13:130400 BMI (Body Mass Index) 31.91 kg/m2 Ranchoradha Braxton [facility] Work Phone: NEGATED: Highlighted [id number] 13:130400 BP Diastolic 88 mm[Hg] [facility] Work Phone: NEGATED: Highlighted [id number] 13:13-0400 BP Systolic 137 mm[Hg] [facility] Work Phone: NEGATED: Highlighted [id number] 13:13040 Height 168 cm [facility] Work Phone: NEGATED: Highlighted [id number] 13:13 Height 167.64 cm [facility] Work Phone: NEGATED: Highlighted [id number] 13:130400 Pulse (Heart Rate) 53 /min [facility] Work Phone: NEGATED: Highlighted [id number] 13:13040 Weight 90 kg [facility] Work Phone: NEGATED: Highlighted [id number] 13:040 Weight 89.36 kg [facility] Work Phone: Encounters Encounter Date Encounter Type Care Provider Facility Start: 04-30-2025 End: 04-30-2025 Emergency department patient visit Dr. 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 Prasanth Souza MD -[facility] Start: 04-11-2025 End: 04-11-[address] [facility] Work Phone: Start: 04-11-2025 End: 04-11-[address] Anurag Dolan MD Work Phone: [facility] Work Phone: Start: 03-26-2025 End: 03-26-[address] [facility] Work Phone: Start: 03-26-2025 End: 03-26-2025 ambulatory Anurag Dolan Facility:[facility] Start: 03-19-2025 ambulatory SELF SELF Facility:[facility] KOEHLER[facility] Start: 03-12-2025 End: 03-12-[address] [facility] Work Phone: Start: 03-12-2025 End: 03-12-2025 ambulatory Anurag Dolan Facility:[facility] Start: 03-07-2025 End: 03-07-2025 Patient encounter procedure [facility] Work Phone: Start: 03-07-2025 End: 03-07-2025 ambulatory [facility] Facility:[facility] Start: 02-28-2025 End: 02-28-[address] Nilda Mcgarry DO -Medical Out Work Phone: Start: 02-28-2025 End: 02-28-[address] Anurag Dolan MD Work Phone: [facility] Work Phone: Start: 02-26-[address] Prasanth Souza MD -[facility] Start: 02-20-2025 Non-patient / Non-visit Sydney Saenz [facility] Work Phone: Start: 02-20-2025 [facility] Facility[facility] Start: 02-15-2025 End: 02-15-2025 Patient encounter procedure Kena Heredia ORE DRESSING ENGINEER-C -[facility] Work Phone: Start: 02-15-2025 End: 02-15-2025 [facility] Facility:[facility] Start: 01-18-2025 End: 01-18-[address] Brianna Souza MD -[facility] Work Phone: Start: 01-18-2025 End: 01-18-2025 [facility] Facility:[facility] Start: 01-11-2025 End: 01-11-2025 Patient encounter procedure Kena Heredia NP-C -Cat Scan, [facility] Work Phone: Start: 01-11-2025 End: 01-11-2025 [facility] Facility:[facility] Start: 01-08-2025 End: 01-08-2025 Patient encounter procedure Kena Heredia ORE DRESSING ENGINEER-C -Nuclear Medicine, [facility] Work Phone: Start: 01-08-2025 End: 01-08-2025 [facility] Facility:[facility] Start: 12-21-2024 End: 12-21-2024 Patient encounter procedure Kena Heredia ORE DRESSING ENGINEER-C -[facility] Work Phone: Start: 12-21-2024 End: 12-21-2024 ambulatory Anurag Dolan Facility:[facility] Start: 11-23-2024 End: 11-23-[address] Ankush Simons MD -[facility] Work Phone: Start: 11-23-2024 End: 11-23-2024 ambulatory Anurag Dolan Facility:[facility] Start: 11-08-2024 End: 11-08-[address] Ankush Lynch DO -[facility] Work Phone: Start: 11-08-2024 End: 11-08-2024 ambulatory Anurag Dolan Facility:[facility] Start: 10-25-2024 End: 10-25-2024 ambulatory Anurag Dolan Facility:[facility] Start: 09-28-2024 End: 09-28-2024 ambulatory Anurag Dolan Facility:[facility] Start: 09-14-2024 End: 09-14-2024 ambulatory Erin Adair Facility:[facility] Start: 09-04-2024 End: 09-05-2024 ambulatory Anurag Dolan Facility:[facility] Start: 08-31-2024 End: 08-31-2024 ambulatory Anurag Dolan Facility:[facility] Start: 08-30-2024 End: 08-30-2024 ambulatory Anurag Dolan Facility:[facility] Start: 08-03-2024 End: 08-03-2024 ambulatory Anurag Dolan Facility:[facility] Start: 07-26-2024 End: 07-26-2024 ambulatory Anurag Dolan Facility:[facility] Start: 07-06-2024 End: 07-06-2024 ambulatory Anurag Dolan Facility:[facility] Start: 06-29-2024 End: 06-29-2024 ambulatory Anurag Dolan Facility:[facility] Start: 06-22-2024 End: 06-22-2024 ambulatory Maximiliano Aguilar Facility:[facility] Start: 06-08-2024 End: 06-08-2024 ambulatory Anurag Dolan Facility:[facility] Start: 06-02-2024 End: 06-02-2024 ambulatory Anurag Dolan Facility:[facility] Start: 05-29-2024 End: 05-29-2024 ambulatory Anurag Dolan Facility:[facility] Start: 05-11-2024 End: 05-11-2024 ambulatory Anurag Dolan Facility:[facility] Start: 05-11-2024 End: 05-11-2024 ambulatory Chuck Melissa Facility:[facility] Start: 02-11-2024 End: 02-11-[address] Anurag Dolan Work Phone: [facility] Work Phone: Start: 02-11-2024 End: 02-11-[address] Anurag Dolan Work Phone[facility] Start: 02-07-2024 End: 02-07-[address] Anurag Dolan Work Phone: [facility] Work Phone: Start: 02-07-2024 End: 02-07-[address] Anurag Dolan Work Phone: [facility] Work Phone: Start: 01-27-[address] Anurag Dolan Work Phone: [facility] Start: 01-27-2024 End: 01-27-[address] Anurag Dolan Work Phone: [facility] Work Phone: Start: 01-19-2024 End: 01-19-2024 ambulatory KILO DOLAN [facility] Start: 01-19-2024 End: 01-19-2024 Office outpatient visit 25 minutes Kilo Dolan MD Work Phone: [facility] Comment on above: PAF (paroxysmal atri al fibrillation) (HCC) Start: 01-06-2024 End: 01-06-[address] Anurag Dolan Work Phone: [facility] Work Phone: Start: 12-09-2023 End: 12-09-[address] Anurag Dolan Work Phone: [facility] Work Phone: Start: 11-19-2023 End: 11-19-[address] Anurag Dolan Work Phone: [facility] Work Phone: Start: 11-18-2023 End: 11-18-[address] Anurag Dolan Work Phone: [facility] Work Phone: Start: 11-11-[address] CHUCK Daniels acility:B Start: 11-10-2023 End: 11-10-[address] Anurag Dolan Work Phone: [facility] Work Phone: Start: 11-08-2023 End: 11-08-[address] Anurag Dolan Work Phone: [facility] Work Phone: Start: 11-03-2023 End: 11-03-[address] Anurag Dolan Work Phone: [facility] Work Phone: Start: 11-03-2023 End: 11-03-[address] Anurag Dolan Work Phone: [facility] Work Phone: Start: 10-28-[address] Anurag Dolan Work Phone: [facility] Start: 10-28-2023 End: 10-28-[address] Anurag Dolan Work Phone: [facility] Work Phone: Start: 10-26-2023 End: 10-26-[address] Anurag Dolan Work Phone: [facility] Work Phone: Start: 10-26-2023 End: 10-26-[address] Anurag Dolan Work Phone: [facility]-Cat Scan, [facility] Work Phone: Start: 10-12-2023 End: 10-12-[address] Anurag Dolan Work Phone: [facility] Work Phone: Start: 09-21-2023 ambulatory ANURAG DOLAN MD Facilit y:B Start: 09-15-2023 End: 09-15-[address] Anurag Dolan Work Phone: [facility]-Laboratory, Pavilion Start: 08-25-2023 End: 08-25-[address] Anurag Dolan Work Phone: [facility] Work Phone: Start: 08-10-2023 End: 08-10-[address] Anurag Dolan Work Phone: [facility] Work Phone: Start: 08-10-2023 End: 08-10-[address] Anurag Dolan Work Phone: [facility], [facility] Work Phone: Start: 08-05-[address] Anurag Dolan Work Phone: [facility] Start: 08-05-2023 End: 08-05-[address] Anurag Dolan Work Phone: [facility] Work Phone: Start: 07-27-2023 End: 07-27-[address] Anurag Dolan Work Phone: [facility] Work Phone: Start: 07-27-2023 End: 07-27-[address] Anurag Dolan Work Phone: [facility] Work Phone: Start: 07-23-2023 End: 07-23-[address] Anurag Dolan Work Phone: [facility] Work Phone: Start: 07-23-2023 End: 07-23-[address] Anurag Dolan Work Phone: [facility] Work Phone: Start: 06-16-[address] Anurag Dolan Work Phone: [facility] Start: 05-19-2023 End: 05-19-[address] Anurag Dolan Work Phone: [facility] [place] Work Phone: Start: 05-19-2023 End: 05-19-[address] Anurag Dolan Work Phone: [facility] Start: 05-17-2023 End: 05-17-[address] Anurag Dolan Work Phone: [facility] Start: 05-06-2023 End: 05-06-[address] Anurag Dolan Work Phone: [facility] Work Phone: Start: 05-06-2023 End: 05-06-[address] Anurag Dolan Work Phone: [facility] [place] [facility]Physical Therapy Work Phone: Start: 05-06-[address] Anurag Dolan Work Phone: [facility] [place] [facility] Start: 05-05-2023 End: 05-05-2023 ambulatory STEPHANIESo [facility]ACK [facility] Start: 05-05-2023 End: 05-05-2023 [facility] - [employer] Work Phone: [facility] Comment on above: PVC (premature ventr icular contraction) (Primary Dx); PAF (paroxysmal atrial fibrillation) (CMS/HCC) (HCC); Paroxysmal atrial fibrillation (CMS/HCC) (HCC) Start: 04-29-2023 End: 04-29-[address] Anurag Dolan Work Phone: [facility] Work Phone: Start: 04-29-2023 End: 04-29-[address] Anurag Dolan Work Phone: [facility] Start: 04-29-[address] Anurag Dolan Work Phone: [facility] Start: 04-29-2023 End: 04-29-[address] Anurag Dolan Work Phone: [facility] Start: 04-22-[address] Anur[facility] Start: 04-12-2023 End: 04-12-[address] Anurag Dolan Work Phone: [facility] Start: 04-07-2023 End: 04-07-[address] Anurag Dolan Work Phone: [facility] Start: 04-01-[address] Anur[facility] Start: 03-31-2023 End: 03-31-[address] Anurag Dolan Work Phone: [facility] Start: 03-29-2023 End: 03-29-[address] Anurag Dolan Work Phone: [facility] Work Phone: Start: 03-29-2023 End: 03-29-[address] Anurag Dolan Work Phone: [facility] Start: 03-29-2023 End: 03-29-[address] Anurag Dolan Work Phone: [facility] Start: 03-26-[address] Anurag Dolan Work Phone: [facility] [place] [facility]-Radiation Oncology Start: 03-25-2023 End: 03-25-[address] Anurag Dolan Work Phone: [facility] Start: 03-25-2023 Non-patient / Non-visit Dr. Yariel Dolan Work Phone: [facility] Start: 03-23-2023 End: 03-23-[address] Anurag Dolan Work Phone: [facility] Work Phone: Start: 03-23-2023 End: 03-23-[address] Anurag Dolan Work Phone: [facility] Start: 03-17-2023 End: 03-17-[address] Anurag Dolan Work Phone: [facility] Start: 03-12-2023 Office outpatient vi sit 15 minutes Anurag Dolan Work Phone: [facility] Work Phone: Start: 03-12-2023 Patient encounter procedure Anurag Dolan Work Phone: [facility] Gustavo and Lisa 230 DO Work Phone: Start: 03-12-2023 [facility] Start: 03-11-2023 Non-patient / Non-visit Dr. Yariel Dolan Work Phone: [facility] Start: 03-11-2023 End: 03-11-[address] Anurag Dolan Work Phone: [facility] [place] [facility]-Medical Out Start: 03-08-2023 End: 03-13-[address] MELANIE ROACH MD Facility:R Start: 03-08-2023 Non-patient / Non-visit Dr. Yariel Dolan Work Phone: [facility] Start: 03-05-2023 Office outpatient vi sit 25 minutes Anurag Dolan Work Phone: [facility] Work Phone: Start: 03-05-2023 ambulatory ,[facility] HUSSEIN PHELAN Facility:[facility] Start: 03-03-2023 Non-patient / Non-visit Dr. Yariel Dolan Work Phone: [facility] Start: 03-01-2023 End: 03-06-[address] MELANIE ROACH MD Facility:B Start: 03-01-2023 End: 03-05-[address] MELANIE ROACH MD [facility] Start: 02-26-[address] Anurag Dolan Facilso ty:[id number] Start: 02-25-[address] Anurag Fair ty:[facility] Start: 02-24-2023 End: 04-07-2023 ambulatory ANURAG DOLAN MD Facility:R Start: 02-22-[address] Anurag Dolan Work Phone: [facility] Start: 02-19-2023 End: 02-19-[address] Anurag Dolan Work Phone: [facility] Work Phone: Start: 02-19-2023 End: 02-19-[address] Anurag Dolan Work Phone: [facility] Start: 02-08-2023 End: 02-08-[address] Anurag Dolan Work Phone: [facility] Start: 02-03-2023 End: 02-23-2023 Evaluation and management of inpatient Dr. Anurag Dolan Work Phone: [facility] [place] [facility]-Transitional Care Unit Start: 01-27-2023 End: 02-03-2023 Evaluation and management of inpatient María Boggs [facility] Emma [id number] Rm [id number] Start: 01-26-2023 End: 01-27-2023 Emergency department patient visit Dr. Anurag Dolan Work Phone: [facility] [place] [facility]Emergency Department Start: 01-18-2023 End: 01-18-2023 Emergency department patient visit Dr. Anurag Dolan Work Phone: [facility] [place] [facility]Emergency Department Start: 01-08-2023 Patient encounter procedure Anurag Dolan Work Phone: [facility] Work Phone: Start: 01-08-2023 ambulatory ,SOFIA PHELAN Facility:[facility] Start: 01-03-2023 AUDIT Anurag Dolan Work Phone: [facility] Work Phone: Start: 12-26-2022 End: 02-03-2023 ambulatory HUSSEIN BENNETT MD Facility: Start: 12-23-2022 End: 12-24-2022 ambulatory SOFIA ANDREW Facility:[facility] Start: 12-21-2022 End: 12-21-[address] Anurag Dolan Work Phone: [facility] Work Phone: Start: 12-21-2022 End: 12-21-[address] Anurag Dolan Work Phone: [facility] [place] [facility]-Laboratory Start: 12-14-2022 End: 12-14-[address] Anurag Dolan Work Phone: [facility] Work Phone: Start: 12-14-2022 End: 12-14-[address] Anurag Dolan Work Phone: [facility] [place] [facility] Out Start: 12-08-2022 Office outpatient vi sit 25 minutes Anurag Dolan Work Phone: [facility] 74[facility] Work Phone: Start: 12-08-2022 ambulatory ,[facility]IN [facility] Facility:[id number] Start: 12-08-2022 Kiki Walton Dept. of ermatology Start: 12-04-[address] CHUCK IRENE MD F acility:B Start: 12-02-2022 End: 12-02-[address] Anurag Dolan Work Phone: [facility] Start: 11-26-2022 End: 11-26-[address] Anurag Dolan Work Phone: [facility] Work Phone: Start: 11-26-2022 End: 11-26-[address] Anurag Dolan Work Phone: [facility] Start: 11-25-[address] Anurag Dolan Work Phone: [facility] Start: 11-16-2022 End: 11-16-[address] Anurag Dolan Work Phone: [facility] Work Phone: Start: 11-16-2022 End: 11-16-[address] Anurag Dolan Work Phone: [facility] [place] [facility]-Laboratory, Specimen Start: 11-16-2022 End: 11-16-[address] Anurag Dolan Work Phone: [facility] Start: 11-12-2022 Chart Update Anurag Dolan Work Phone: [facility] 3439 Work Phone: Start: 11-12-2022 End: 11-12-[address] Anurag Dolan Work Phone: [facility] Start: 11-10-2022 ambulatory ,[id number] Start: 11-10-2022 ambulatory [id number] Start: 10-14-2022 End: 10-14-[address] Anurag Dolan Work Phone: [facility] Start: 10-13-2022 End: 10-13-[address] Anurag Dolan Work Phone: [facility] Start: 10-07-2022 End: 10-07-[address] Anurag Dolan Work Phone: [facility] Work Phone: Start: 10-07-2022 End: 10-07-[address] Anurag Dolan Work Phone: [facility] [place] [facility]-Pulmonary Services/Neurology Start: 09-28-2022 End: 09-28-[address] Anurag Dolan Work Phone: [facility] Start: 09-11-[address] Anurag Dolan Work Phone: [facility] Start: 07-23-2022 End: 07-23-[address] Anurag Dolan Work Phone: [facility] Work Phone: Start: 07-23-2022 End: 07-23-[address] Anurag Dolan Work Phone: [facility] [place] [facility]-Nuclear Medicine, [facility] Start: 07-15-[address] Anurag Dolan Work Phone: [facility] Start: 07-15-2022 End: 07-15-[address] Anurag Dolan Work Phone: [facility] Start: 07-08-2022 End: 07-08-[address] Anurag Dolan Work Phone: [facility] Start: 07-07-2022 End: 07-07-[address] Anurag Dolan Work Phone: [facility]-Pulmonary Services/Neurology Start: 07-07-2022 Non-patient / Non-visit Dr. Yariel Dolan Work Phone: [facility] Start: 06-25-2022 End: 06-25-[address] Anurag Dolan Work Phone: [facility]-Occupational Therapy Start: 06-22-2022 End: 06-22-[address] Anurag Dolan Work Phone: [facility] Start: 06-15-[address] Anurag Dolan Work Phone: [facility] Start: 06-15-2022 End: 06-15-[address] Anurag Dolan Work Phone: [facility] Start: 06-08-2022 Chart Update Anurag Dolan Work Phone: [facility] Work Phone: Start: 06-02-[address] Anurag Fair ty:[id number] Start: 05-25-2022 End: 05-25-[address] Anurag Dolan Work Phone: [facility] Start: 05-12-[address] Anurag Fair ty:[id number] Start: 05-12-2022 Office outpatient vi sit 10 minutes Anurag Dolan Work Phone: [facility] 4600 Work Phone: Start: 05-05-2022 End: 05-05-[address] Anurag Dolan Work Phone: [facility] Start: 04-13-2022 End: 04-13-[address] Anurag Dolan Work Phone: [facility] Start: 04-07-2022 End: 04-07-[address] Anurag Dolan Work Phone: [facility] Start: 03-27-2022 Non-patient / Non-visit Dr. Yariel Dolan Work Phone: [facility] Start: 03-27-2022 End: 03-27-[address] Anurag Dolan Work Phone: [facility]-Cardiovascular Services Start: 03-23-[address] Anurag Dolan Work Phone: [facility] Start: 03-23-2022 End: 03-23-[address] Anurag Dolan Work Phone: [facility] Start: 03-19-2022 End: 03-19-[address] Anurag Dolan Work Phone: [facility]-Laboratory, Specimen Start: 03-13-2022 End: 03-13-[address] Anurag Dolan Work Phone: [facility] Start: 03-10-2022 End: 03-10-[address] Anurag Dolan Work Phone: [facility]-Physical Therapy Start: 03-02-[address] Anurag Dolan Work Phone: [facility] Start: 03-02-2022 End: 03-02-[address] Anurag Dolan Work Phone: [facility] Start: 02-23-2022 Non-patient / Non-visit Dr. Yariel Dolan Work Phone: [facility] Start: 02-22-2022 Non-patient / Non-visit Dr. Yariel Dolan Work Phone: [facility] Start: 02-21-2022 Non-patient / Non-visit Dr. Yariel Dolan Work Phone: [facility] Start: 02-21-2022 Non-patient / Non-visit Dr. Yariel Dolan Work Phone: [facility] Start: 02-20-2022 Non-patient / Non-visit Dr. Yariel Dolan Work Phone: [facility] Start: 02-20-2022 End: 02-23-2022 Evaluation and management of inpatient Dr. Anurag Dolan Work Phone: [facility]-Progressive Care Unit Start: 02-09-[address] Anurag Dolan Work Phone: [facility] Start: 02-09-2022 End: 02-09-[address] Anurag Dolan Work Phone: [facility] Start: 01-29-2022 Chart Update Anurag Dolan Work Phone: [facility] Work Phone: Start: 01-20-2022 End: 01-20-[address] Anurag Dolan Work Phone: [facility] Start: 01-13-2022 Office outpatient vi sit 15 minutes Anurag Dolan Work Phone: Irvin paul Work Phone: Start: 12-31-2021 Non-patient / Non-visit Dr. Yariel Dolan Work Phone: [facility] Start: 12-31-2021 End: 12-31-[address] Anurag Dolan [facility] Start: 12-30-2021 End: 12-30-[address] Anurag Dolan Work Phone: [facility]-Cat [facility], [facility] Start: 12-29-2021 End: 12-29-[address] Anurag Dolan Work Phone: [facility] Start: 12-08-2021 End: 12-08-[address] Anurag Dolan Work Phone: [facility] Start: 11-18-[address] Anurag Dolan Work Phone: [facility] Start: 11-18-2021 End: 11-18-[address] Anurag Dolan Work Phone: [facility] Start: 11-04-2021 End: 11-04-[address] Anurag Dolan Work Phone: [facility] Start: 10-27-2021 End: 10-27-[address] Anurag Dolan Work Phone: [facility] Start: 10-07-2021 Office outpatient vi sit 15 minutes Anurag Dolan Work Phone: [facility] 4400 Work Phone: Start: 06-17-2021 Office outpatient vi sit 15 minutes Anurag Dolan Work Phone: [facility] Work Phone: Start: 06-17-2021 Patient encounter procedure Anurag Dolan Work Phone: QD-Qijjmlz-Ihdec Main Work Phone: Start: 06-03-2021 Office outpatient vi sit 25 minutes Anurag Dolan Work Phone: SP-Ccmbpjw-Plbljvoo 150 Work Phone: Start: 05-23-2021 End: 05-27-2021 Evaluation and management of inpatient Hussein Flores 5 Rm [id number] Start: 05-21-2021 Kiki Walton Dept. of D ermatology Start: 05-15-2021 Chart Update Anurag Dolan Work Phone: XO-Utucvga-Qwwbnjxg 150 Work Phone: Start: 05-13-2021 POV, Provider: Hussein Bennett, Status: Pen, Time: 9:30 AM Anurag Dolan Work Phone: [facility] Work Phone: Start: 05-06-2021 Adolfo Pond Dep t. of Dermatology Start: 05-02-2021 AUDIT Referring Prov ider Unknown YX-Ygxosrq-Mhotetla 150 Work Phone: Start: 05-01-2021 Office outpatient ne w 30 minutes Anurag Dolan Work Phone: [facility] Work Phone: Start: 05-01-2021 Patient encounter procedure Referring Provider Unknown [facility] Work Phone: Start: 04-21-2021 Patient encounter procedure Referring Provider Unknown [facility] Work Phone: Start: 07-25-2018 End: 07-25-2018 Patient encounter procedure Remy Tejeda MD Work Phone: [facility] Work Phone: Procedures Date Procedure Procedure Detail Performing Clinician Start: 04-30-2025 Urnls dip stick/tablet reagent auto microscopy Dr. Anurag Dolan MD Work Phone: Start: 04-30-2025 X-ray of chest, PA and lateral views Dr. Anurag Dolan MD Work Phone: Start: 04-30-[address] Anurag Dolan MD Work Phone: Start: 04-30-2025 SARS-CoV-2, Influenza & RSV (PCR) Dr. Anurag Dolan MD Work Phone: Start: 04-11-[address] Anurag Dolan MD Work Phone: Start: 04-11-2025 Serum inorganic phosphate measurement Dr. Anurag Dolan MD Work Phone: Start: 03-07-2025 Electrophoresis: [id number] Dr. Anurag Dolan MD Work Phone: Start: 03-07-2025 Electrophoresis: [id number] Dr. Anurag Dolan MD Work Phone: Start: 03-07-2025 Electrophoresis: gamma globulin Dr. Anurag Dolan MD Work Phone: Start: 03-07-2025 Vitamin D, 25-hydroxy measurement Dr. Anurag Dolan MD Work Phone: Comment on above: Vitamin D StatusDeficiency: <20 ng/mL (5 0nmol/L)Insufficiency: 20-30 ng/mL (50-75 nmol/L)Sufficiency: 30-100 ng/mL (75-250 nmol/L)Toxicity: >100 ng/mL (>250 nmol/L) Start: 02-20-2025 Urnls dip stick/tablet reagent auto microscopy Dr. Anurag Dolan MD Work Phone: Start: 01-18-2025 Measurement of renal function Dr. Anurag Dolan MD Work Phone: Comment on above: GFR Calc Start: 01-11-2025 CT of thorax, abdomen and pelvis with contrast Dr. Anurag Dolan MD Work Phone: Start: 01-08-2025 Radionuclide whole body bone study Dr. Anurag Dolan MD Work Phone: Start: 03-16-2024 Assay of prostate specific antigen total Dr. Anurag Dolan MD Work Phone: Comment on above: This test was performed using the TPSA a ssay method for theK[facility] Wal[facility] Creek Medical CenterBugHerd chemistry system. Values obtained with differentassay methods cannot be used interchangably.When changing PSA assays in the course of monitoring apatient, additional sequential testing should be carriedout to confirm baseline values. Start: 02-11-2024 CT of chest and abdomen Dr. Anurag Dolan Work Phone: Start: 02-07-2024 Radionuclide whole body bone study Dr. Anurag Dolan Work Phone: Start: 01-19-2024 Ecg routine ecg w/least 12 lds trcg only w/o i&r Kilo Dolan MD Work Phone: Start: 11-19-2023 Radionuclide whole body bone study Dr. Anurag Dolan Work Phone: Start: 11-03-2023 Biopsy/Inj or Needle Placement Dr. Anurag Dolan Work Phone: Start: 11-03-2023 CT of thorax with contrast Dr. Anurag Dolan Work Phone: Start: 10-26-2023 Computed tomography of abdomen and pelvis with contrast Dr. Anurag Dolan Work Phone: Start: 08-10-[address] Anurag Dolan Work Phone: Start: 07-27-2023 CT of chest and abdomen Dr. Anurag Dolan Work Phone: Start: 07-23-2023 Radionuclide whole body bone study Dr. Anurag Dolan Work Phone: Start: 05-19-2023 Biopsy/Inj or Needle Placement Dr. Anurag Dolan Work Phone: Start: 05-05-2023 Ecg routine ecg w/least 12 lds trcg only w/o i&r Kilo Dolan MD Work Phone: Start: 04-29-2023 CT of chest without contrast Dr. Anurag Dolan Work Phone: Start: 03-29-2023 MRI of brain with contrast Dr. Anurag Dolan Work Phone: Start: 03-23-2023 CT of chest without contrast Dr. Anurag Dolan Work Phone: Start: 02-19-2023 CT of soft tissues of neck with contrast Dr. Anurag Dolan Work Phone: Start: 02-19-2023 CT of thorax with contrast Dr. Anurag Dolan Work Phone: Start: 01-27-[address] Anurag Dolan Comment on above: Performed By: #### BMP #### [facility] [id number] [place] [address] Start: 01-26-2023 CT of soft tissues of neck with contrast Dr. Anurag Dolan Work Phone: Start: 01-26-2023 CT angiography of chest with contrast Dr. Anurag Dolan Work Phone: Start: 01-18-2023 Plain chest X-ray Dr. Anurag Dolan Work Phone: Start: 12-08-2022 Kiki Walton Start: 11-26-2022 MRI of brain with contrast Dr. Anurag Dolan Work Phone: Start: 11-25-[address] of whole body Dr. Anurag Dolan Work Phone: Start: 07-23-2022 Radionuclide whole body bone study Dr. Anurag Dolan Work Phone: Start: 07-08-2022 CT of chest and abdomen Dr. Anurag Dolan Work Phone: Start: 03-27-2022 Radionuclide imaging of perfusion of myocardium under exercise stress Dr. Anurag Dolan Work Phone: Start: 02-21-2022 MRI of brain without contrast Dr. Anurag Dolan Work Phone: Start: 02-20-2022 Plain chest X-ray Dr. Anurag Dolan Work Phone: Start: 12-30-2021 CT Chest, Abd, Pel w/Contrast Dr. Anurag Dolan Work Phone: Start: 11-18-2021 Plain chest X-ray Dr. Anurag Dolan Work Phone: Start: 07-15-2021 Allergen spec ige crude allergen extract each Dr. Anurag Dolan MD Work Phone: Start: 05-23-2021 End: 05-23-2021 Venous Full Panel Myesha Landin Start: 05-21-2021 Kiki Walton Start: 05-06-2021 Zoroastrianism Dejah Start: 04-22-[address] of whole body Dr. Anurag Dolan Work Phone: Start: 07-25-2018 End: 07-25-2018 Blood pressure within normal parameters - no follow-up required Remy Tejeda MD Work Phone: Start: 07-25-2018 End: 07-25-2018 BMI documented as above normal parameters - follow-up documented Remy Tejeda MD Work Phone: Start: 07-25-2018 End: 07-25-2018 Current medications documented Remy Tejeda MD Work Phone: Start: 07-25-2018 End: 07-25-2018 Pain assessment documented as negative - follow-up not required Remy Tejeda MD Work Phone: Start: 07-25-2018 End: 07-25-2018 Radex shoulder complete minimum 2 views Remy Tejeda MD Work Phone: Start: 07-25-2018 End: 07-25-2018 Tobacco non-user Remy Tejeda MD Work Phone: H/O: surgery Hx of hemorrhoidectomy Dr. Tram Dolan Work Phone: History of repair of musculotendinous cuff of shoulder Hx of rotator cuff surgery Dr. Anurag Dolan Work Phone: Comment on above: Left Viral antigen assay Dr. Anurag Dolan Work Phone: Viral antigen assay Dr. Anurag Dolan Work Phone: Plan of Treatment Date Care Activity Detail Author Start: 04-20-2028 Diabetes Screening Diabetes Screening [facility] Start: 05-18-2025 End: 05-18-2025 Follow-up encounter 05/18/2025 7:00 AM EDT [facility] Hematology/Oncology [id number] [place] [address] Edis Rodrigez MD [address] [place] [address] vv follow up Hematology/Oncology Comment on above: vv follow up Start: 05-07-2025 End: 05-07-2025 Patient encounter procedure Nuclear Medicine Comment on above: Malignant melanoma of skin (HCC) [C43.9] Start: 04-30-2025 [facility] Start: 04-30-2025 [facility] Start: 04-30-2025 [facility] Start: 04-30-2025 Bacteria identified in Blood by Culture Blood Culture [facility] Start: 04-30-2025 Bacteria identified in Urine by Culture Urine Culture [facility] Start: 04-27-2025 End: 04-27-2025 ambulatory 04/27/2025 11:00 AM EDT Results Only [facility] [address] [place] [address] Malignant melanoma of skin (HCC) [C43.9]; 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]; 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] [facility] Comment on above: Malignant melanoma of skin (HCC) [C43.9] ; 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]; 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] Start: 04-21-2025 End: 05-20-2026 PET+CT Whole body Bone W 18F-NaF IV NM PET/CT WHOLE BODY INITIAL Radiology Routine Malignant melanoma of skin (HCC) Metastatic melanoma to lymph node (HCC) Expected: 04/21/2025 (Approximate), Expires: 05/20/2026 [facility] Work Phone: Comment on above: Expected: 04/21/2025 (Approximate), Expi res: 05/20/2026 Start: 04-19-2025 Vital signs measurements [facility] Start: 04-19-2025 [facility] Start: 04-11-2025 [facility] Start: 03-26-2025 Patient referral [facility] Work Phone: Start: 03-22-2025 Vital signs measurements [facility] Start: 03-08-2025 Patient referral [facility] Work Phone: Start: 02-22-2025 Vital signs measurements [facility] Start: 01-18-2025 Vital signs measurements [facility] Start: 01-11-2025 Venous catheter care management [facility] Start: 01-08-2025 Venous catheter care management [facility] Start: 12-21-2024 Vital signs measurements [facility] Start: 11-29-2024 Advance Directive Discussion Advance Directive Discussion [facility] Start: 11-23-2024 Vital signs measurements [facility] Start: 10-25-2024 Vital signs measurements [facility] Start: 09-28-2024 Vital signs measurements [facility] Start: 08-31-2024 Vital signs measurements [facility] Start: 08-03-2024 Vital signs measurements [facility] Start: 07-30-2024 Covid-19 Vaccine ( season) Covid-19 Vaccine () [facility] Start: 07-06-2024 Vital signs measurements [facility] Start: 06-08-2024 Vital signs measurements [facility] Start: 05-11-2024 Vital signs measurements [facility] Start: 04-13-2024 Vital signs measurements [facility] Start: 03-16-2024 Vital signs measurements [facility] Start: 02-17-2024 T4 free measurement [facility] Start: 02-17-2024 Thyroid stimulating hormone measurement [facility] Start: 02-17-2024 Vital signs measurements [facility] Start: 02-17-2024 [facility] Start: 02-11-2024 CT Abdomen and Pelvis W contrast IV [facility] Start: 02-11-2024 CT of chest and abdomen CT Chest, Abd, Pel w/Contrast [facility] Start: 02-11-2024 Venous catheter care management [facility] Start: 02-07-2024 Venous catheter care management [facility] Start: 01-27-2024 Vital signs measurements [facility] Start: 01-06-2024 Vital signs measurements [facility] Start: 12-09-2023 Vital signs measurements [facility] Start: 11-30-2023 End: 11-30-2023 Patient encounter procedure 11/30/2023 1:00 PM EST Office Visit [facility] [address] [place] [id number] Kilo Dolan MD [address] [address] [facility] Start: 11-19-2023 Venous catheter care management [facility] Start: 11-18-2023 Vital signs measurements [facility] Start: 11-03-2023 Biopsy liver needle percutaneous NEEDLE BIOPSY OF LIVER [facility] Start: 11-03-2023 Venous catheter care management [facility] Start: 11-03-2023 Catheterization of vein [facility] Start: 11-03-2023 Oxygen therapy [facility] Start: 11-03-2023 Patient discharge [facility] Start: 11-03-2023 Vital signs measurements [facility] Start: 08-10-2023 Ultrasonography of limb Ext Non Vasc Limited/Soft Tiss [facility] Start: 08-10-2023 US Extremity limited [facility] Start: 07-30-2023 COVID-19 Vaccine ( season) COVID-19 Vaccine ( season) [facility] Start: 07-30-2023 Influenza vaccination Influenza Vaccine (#1) [facility] Start: 07-27-2023 Venous catheter care management [facility] Start: 07-23-2023 Venous catheter care management [facility] Start: 05-19-2023 Biopsy soft tissue neck/thorax BIOPSY OF NECK/CHEST [facility] Start: 05-19-2023 Venous catheter care management [facility] Start: 05-19-2023 Catheterization of vein [facility] Start: 05-19-2023 Oxygen therapy [facility] Start: 05-19-2023 Vital signs measurements [facility] Start: 03-18-2023 [facility] Start: 03-11-2023 Blood chemistry [facility] Start: 03-11-2023 [facility] Start: 03-04-2023 Blood chemistry [facility] Start: 03-04-2023 [facility] Start: 03-02-2023 SARS-CoV-2 (COVID-19) Ag [Presence] in Respiratory specimen by Rapid immunoassay [facility] Start: 02-25-2023 [facility] Start: 02-25-2023 Blood chemistry [facility] Start: 02-25-2023 [facility] Start: 02-23-2023 Patient discharge [facility] Start: 02-21-2023 Venous catheter care management [facility] Start: 02-21-2023 [facility] Start: 02-16-2023 [facility] Start: 02-16-2023 Referral to service [facility] Start: 02-16-2023 Development of care plan [facility] Start: 02-16-2023 [facility] Start: 02-11-2023 Speech therapy management [facility] Start: 02-10-2023 Development of care plan [facility] Start: 02-10-2023 Speech therapy assessment [facility] Start: 02-10-2023 Developing a treatment plan [facility] Start: 02-04-2023 [facility] Start: 02-04-2023 [facility] Start: 02-04-2023 Development of care plan [facility] Start: 02-04-2023 Developing a treatment plan [facility] Start: 02-03-2023 Wound care [facility] Start: 02-03-2023 [facility] Start: 02-03-2023 Incentive spirometry [facility] Start: 02-03-2023 Measuring intake and output [facility] Start: 02-03-2023 Patient referral to dietitian [facility] Start: 02-03-2023 Referral to occupational therapist [facility] Start: 02-03-2023 Referral to service [facility] Start: 02-03-2023 Vital signs measurements [facility] Start: 02-03-2023 End: 02-03-2023 [facility] Start: 02-03-2023 Consultation [facility] Start: 02-03-2023 Following clinical pathway protocol [facility] Start: 02-03-2023 Peripherally inserted central catheter care [facility] Start: 02-03-2023 Admission procedure [facility] Start: 01-08-2023 POV, Provider: Hussein Bennett, Status: Pen, Time: 1:30 PM POV, Provider: Hussein Bennett, Status: Pen, Time: 1:30 PM [facility]: Start: 12-23-2022 [facility], Provider: Hussein Bennett, Status: Pen, Time: 11:15 AM [facility], Provider: Hussein Benentt, Status: Pen, Time: 11:15 AM [facility] Work Phone: Start: 11-26-2022 Venous catheter care management [facility] Start: 11-10-2022 FUV, Provider: Hussein Bennett, Status: Pen, Time: 11:00 AM FUV, Provider: Hussein Bennett, Status: Pen, Time: 11:00 AM [facility] Work Phone: Start: 07-23-2022 Venous catheter care management [facility] Work Phone: Start: 07-08-2022 Following clinical pathway protocol [facility] Work Phone: Start: 06-15-2022 Venous catheter care management [facility] Start: 05-12-2022 FUV, Provider: Hussein Bennett, Status: Pen, Time: 10:30 AM FUV, Provider: Hussein Bennett, Status: Pen, Time: 10:30 AM HP-Bkcuanz-Tkbct Main Work Phone: Start: 01-13-2022 FUV, Provider: Hussein Bennett, Status: Pen, Time: 10:30 AM FUV, Provider: Hussein Bennett, Status: Pen, Time: 10:30 AM [facility] Work Phone: Start: 12-30-2021 Venous catheter care management [facility] Start: 12-05-2021 COVID-19 Vaccine (5 - Booster for Moderna series) COVID-19 Vaccine (5 - Booster for Moderna series) [facility] Start: 10-27-2021 Venous catheter care management [facility] Start: 09-16-2021 FUV, Provider: Hussein Bennett, Status: Pen, Time: 11:00 AM FUV, Provider: Hussein Bennett, Status: Pen, Time: 11:00 AM GI-Jlvkzmm-Evdrs Main Work Phone: Start: 08-05-2021 Venous catheter care management [facility] Start: 06-03-2021 Patient encounter procedure [facility] Start: 05-27-2021 POV, Provider: Hussein Bennett, Status: Pen, Time: 9:30 AM POV, Provider: Hussein Bennett, Status: Pen, Time: 9:30 AM [id number]-Kdnubowd 150 Work Phone: Start: 05-24-2021 Functional Risk Screen Request for LOG SNAKER Eval/Tx [facility] Functional Risk Screen Request for LOG SNAKER Eval/Tx [facility] Start: :47 Request Comments: Order entered from Admission Screens. [facility] Comment on above: Order entered from Admission Screens. Start: 09-06-2019 Pneumococcal Vaccine: 50+ (2 of 2 - PPSV23) Pneumococcal Vaccine: 50+ (2 of 2 - PPSV23) [facility] Start: 11-01-2018 Pneumococcal Vaccine: 65+ Years (2 - PPSV23 if available, else PCV20) Pneumococcal Vaccine: 65+ Years (2 - PPSV23 if available, else PCV20) [facility] Start: 11-01-2018 Pneumococcal Vaccine: 65+ Years (2 of 2 - PPSV23 or PCV20) Pneumococcal Vaccine: 65+ Years (2 of 2 - PPSV23 or PCV20) [facility] Start: 07-25-2018 End: 07-25-2018 Appointment [facility] Work Phone: Start: 2016 RSV Vaccine (1 - 1-dose 75+ series) RSV Vaccine (1 - 1-dose 75+ series) [facility] Start: 2001 Hepatitis B Vaccines (1 of 3 - Risk 3-dose series) Hepatitis B Vaccines (1 of 3 - Risk 3-dose series) [facility] Start: 2001 RSV Immunization aged 60 or older (1 - 1-dose 60+ series) RSV Immunization aged 60 or older (1 - 1-dose 60+ series) [facility] Start: 1960 DTaP/Tdap/Td Vaccines (1 - Tdap) DTaP/Tdap/Td Vaccines (1 - Tdap) [facility] Start: 1960 Hepatitis A Vaccines (1 of 2 - Risk 2-dose series) Hepatitis A Vaccines (1 of 2 - Risk 2-dose series) [facility] Start: 1960 Urine microalbumin profile DTaP,Tdap,Td Vaccine (1 - Tdap) [facility] Start: 1959 Anxiety Screening Anxiety Screening [facility] Start: 1959 Depression Screening Depression Screening [facility] Start: 1953 Depression Screening Depression Screening [facility] Start: 1948 DTaP/Tdap/Td Vaccines (1 - Tdap) DTaP/Tdap/Td Vaccines (1 - Tdap) [facility] Start: 1941 Examination of skin Derm Melanoma Skin Check [facility] Start: 1941 Lipid panel Lipid Panel [facility] Start: 1941 Medicare Advantage Annual Wellness Visit (AWV) Medicare Advantage Annual Wellness Visit (AWV) [facility] Start: 1941 Thyroid stimulating hormone measurement TSH Level [facility] Alanine aminotransfe rase [Enzymatic activity/volume] in Serum or Plasma [facility] Alanine aminotransfe rase [Enzymatic activity/volume] in Serum or Plasma [facility] Alanine aminotransfe rase [Enzymatic activity/volume] in Serum or Plasma [facility] Alanine aminotransfe rase [Enzymatic activity/volume] in Serum or Plasma [facility] Alanine aminotransfe rase [Enzymatic activity/volume] in Serum or Plasma [facility] Alanine aminotransfe rase [Enzymatic activity/volume] in Serum or Plasma [facility] Albumin [Mass/volume ] in Serum or Plasma [facility] Albumin [Mass/volume ] in Serum or Plasma [facility] Albumin [Mass/volume ] in Serum or Plasma [facility] Albumin [Mass/volume ] in Serum or Plasma [facility] Albumin [Mass/volume ] in Serum or Plasma [facility] Albumin [Mass/volume ] in Serum or Plasma [facility] Alkaline phosphatase [Enzymatic activity/volume] in Serum or Plasma [facility] Alkaline phosphatase [Enzymatic activity/volume] in Serum or Plasma [facility] Alkaline phosphatase [Enzymatic activity/volume] in Serum or Plasma [facility] Alkaline phosphatase [Enzymatic activity/volume] in Serum or Plasma [facility] Alkaline phosphatase [Enzymatic activity/volume] in Serum or Plasma [facility] Alkaline phosphatase [Enzymatic activity/volume] in Serum or Plasma [facility] Anion gap in Serum o r Plasma [facility] Anion gap measurement [facility] Anion gap measurement [facility] Anion gap measurement [facility] Anion gap measurement [facility] Anion gap measurement [facility] Aspartate aminotransferase [Enzymatic activity/volume] in Serum or Plasma [facility] Aspartate aminotransferase [Enzymatic activity/volume] in Serum or Plasma [facility] Aspartate aminotransferase [Enzymatic activity/volume] in Serum or Plasma [facility] Aspartate aminotransferase [Enzymatic activity/volume] in Serum or Plasma [facility] Aspartate aminotransferase [Enzymatic activity/volume] in Serum or Plasma [facility] Basic metabolic 2008 panel with ionized calcium - Serum or Plasma [facility] Bilirubin, total measurement [facility] Bilirubin, total measurement [facility] Bilirubin, total measurement [facility] Bilirubin, total measurement [facility] Bilirubin, total measurement [facility] Bilirubin, total measurement [facility] BUN/Creatinine ratio [facility] BUN/Creatinine ratio [facility] BUN/Creatinine ratio [facility] BUN/Creatinine ratio [facility] BUN/Creatinine ratio [facility] BUN/Creatinine ratio [facility] C reactive protein [Mass/volume] in Serum or Plasma [facility] C reactive protein [Mass/volume] in Serum or Plasma [facility] C reactive protein [Mass/volume] in Serum or Plasma [facility] C reactive protein [Mass/volume] in Serum or Plasma [facility] Calcium [Mass/volume ] in Serum or Plasma [facility] Calcium [Mass/volume ] in Serum or Plasma [facility] Calcium [Mass/volume ] in Serum or Plasma [facility] Calcium [Mass/volume ] in Serum or Plasma [facility] Calcium [Mass/volume ] in Serum or Plasma [facility] Calcium [Mass/volume ] in Serum or Plasma [facility] Carbon dioxide, tota l [Moles/volume] in Central venous blood [facility] Carbon dioxide, tota l [Moles/volume] in Serum or Plasma [facility] Carbon dioxide, tota l [Moles/volume] in Serum or Plasma [facility] Carbon dioxide, tota l [Moles/volume] in Serum or Plasma [facility] Carbon dioxide, tota l [Moles/volume] in Serum or Plasma [facility] Carbon dioxide, tota l [Moles/volume] in Serum or Plasma [facility] CBC W Auto Different ial panel - Blood [facility] Work Phone: CBC W Auto Different ial panel - Blood [facility] CBC W Auto Different ial panel - Blood [facility] CBC W Auto Different ial panel - Blood [facility] CBC W Auto Different ial panel - Blood [facility] CBC W Auto Different ial panel - Blood [facility] CBC W Auto Different ial panel - Blood [facility] Chloride [Moles/volu me] in Serum or Plasma [facility] Chloride [Moles/volu me] in Serum or Plasma [facility] Chloride [Moles/volu me] in Serum or Plasma [facility] Chloride [Moles/volu me] in Serum or Plasma [facility] Chloride [Moles/volu me] in Serum or Plasma [facility] Comprehensive metabo lic 2000 panel - Serum or Plasma [facility] Cortisol [Mass/volum e] in Serum or Plasma [facility] Work Phone: Cortisol [Mass/volum e] in Serum or Plasma [facility] Cortisol [Mass/volum e] in Serum or Plasma [facility] Creatinine [Mass/vol ume] in Serum or Plasma [facility] Creatinine [Moles/vo lume] in Serum or Plasma [facility] Creatinine [Moles/vo lume] in Serum or Plasma [facility] Creatinine [Moles/vo lume] in Serum or Plasma [facility] Creatinine [Moles/vo lume] in Serum or Plasma [facility] Creatinine [Moles/vo lume] in Serum or Plasma [facility] CT Abdomen and Pelvi s W contrast IV [facility] Work Phone: CT Abdomen and Pelvi s W contrast IV [facility] CT Abdomen and Pelvi s W contrast IV [facility] CT Abdomen and Pelvi s W contrast IV [facility] CT Chest W contrast IV [facility] ECG 12 lead - CLINIC PERFORMED ECG 12 lead - CLINIC PERFORMED CV ECG Routine PAF (paroxysmal atrial fibrillation) ([facility]) ([facility]) 05/05/2023 10:23 AM EDT [employer] Work Phone: ECG 12 lead - CLINIC PERFORMED ECG 12 lead - CLINIC PERFORMED CV ECG Routine PAF (paroxysmal atrial fibrillation) ([facility]) 01/19/2024 9:03 AM EST [employer] Work Phone: Erythrocyte mean corpuscular volume determination [facility] Erythrocyte mean corpuscular volume determination [facility] Erythrocyte sediment ation rate [facility] Erythrocyte sediment ation rate [facility] Erythrocyte sediment ation rate [facility] Erythrocyte sediment ation rate [facility] Ferritin [Mass/volum e] in Serum or Plasma [facility] Glucose [Mass/volume ] in Serum or Plasma [facility] Glucose [Mass/volume ] in Serum or Plasma [facility] Glucose [Mass/volume ] in Serum or Plasma [facility] Glucose [Mass/volume ] in Serum or Plasma [facility] Glucose [Mass/volume ] in Serum or Plasma [facility] Glucose [Mass/volume ] in Serum or Plasma [facility] H/O: surgery History of hemorrhoidectomy [facility] Hematocrit [Volume Fraction] of Blood [facility] Hematocrit [Volume Fraction] of Blood [facility] Hematocrit [Volume Fraction] of Blood [facility] Hemoglobin [Mass/vol ume] in Blood [facility] Hemoglobin [Mass/vol ume] in Blood [facility] Hemoglobin [Mass/vol ume] in Blood [facility] History of repair of musculotendinous cuff of shoulder H/O repair of rotator cuff [facility] Iron and Iron bindin g capacity panel - Serum or Plasma [facility] Leukocytes [#/volume ] in Blood [facility] Leukocytes [#/volume ] in Blood [facility] Leukocytes [#/volume ] in Blood [facility] Mean corpuscular hemoglobin concentration determination [facility] Mean corpuscular hemoglobin concentration determination [facility] Mean corpuscular hemoglobin concentration determination [facility] Mean corpuscular hemoglobin determination [facility] Mean corpuscular hemoglobin determination [facility] Mean corpuscular hemoglobin determination [facility] Measurement of renal function [facility] Measurement of renal function [facility] Measurement of renal function [facility] Measurement of renal function [facility] Measurement of renal function [facility] Measurement of renal function [facility] Neutrophil count [facility] Neutrophil count [facility] Neutrophil count [facility] Neutrophil percent differential count [facility] Neutrophil percent differential count [facility] Neutrophil percent differential count [facility] NM Whole body Bone Views [facility] Work Phone: NM Whole body Bone Views [facility] NM Whole body Bone Views [facility] Patient Education [facility] Work Phone: Patient referral [facility] Work Phone: PET CT of whole body [facility] Work Phone: PET CT of whole body [facility] Platelets [#/volume] in Blood [facility] Platelets [#/volume] in Blood [facility] Platelets [#/volume] in Blood [facility] Potassium [Moles/vol ume] in Serum or Plasma [facility] Potassium [Moles/vol ume] in Serum or Plasma [facility] Potassium [Moles/vol ume] in Serum or Plasma [facility] Potassium [Moles/vol ume] in Serum or Plasma [facility] Potassium [Moles/vol ume] in Serum or Plasma [facility] Potassium measurement [facility] Red blood cell count [facility] Red blood cell count [facility] Red blood cell count [facility] Red cell distributio n width determination [facility] Red cell distributio n width determination [facility] Red cell distributio n width determination [facility] Serum chloride measurement [facility] Sodium [Moles/volume ] in Serum or Plasma [facility] Sodium [Moles/volume ] in Serum or Plasma [facility] Sodium [Moles/volume ] in Serum or Plasma [facility] Sodium [Moles/volume ] in Serum or Plasma [facility] Sodium [Moles/volume ] in Serum or Plasma [facility] Sodium measurement [facility] T4 free measurement [facility] Work Phone: T4 free measurement [facility] Thyroid stimulating hormone measurement [facility] Work Phone: Thyroid stimulating hormone measurement [facility] Total protein measurement [facility] Total protein measurement [facility] Total protein measurement [facility] Total protein measurement [facility] Total protein measurement [facility] Total protein measurement [facility] Urea nitrogen [Mass/volume] in Serum or Plasma [facility] Urea nitrogen [Mass/volume] in Serum or Plasma [facility] Urea nitrogen [Mass/volume] in Serum or Plasma [facility] Urea nitrogen [Mass/volume] in Serum or Plasma [facility] Urea nitrogen [Mass/volume] in Serum or Plasma [facility] Urea nitrogen [Mass/volume] in Serum or Plasma [facility] Urine culture [facility] Vitamin B12 measurement [facility] Immunizations Immunization Date Immunization Notes Care Provider Fa cili 11-03-[address] Anurag Dolan Work Phone: [facility] 09-11-2022 Fluzone High-Dose Quadrivalent 0.7 ML Intramuscular Suspension Prefilled Syringe Anurag Dolan Work Phone: [facility] Work Phone: 09-11-2022 Influenza, high dose seasonal Dr. Anurag Dolan MD Work Phone: [facility] 09-11-2022 influenza, high dose seasonal, preservative-free Dr. Anurag Dolan Work Phone: [facility] 09-11-[address] Anurag Dolan Work Phone: [facility] 09-11-2022 influenza virus vaccine, unspecified formulation Kilo Dolan MD Work Phone: [facility] 10-10-2021 Covid (Moderna) Dr. Anurag melara Work Phone: [facility] 08-27-2021 influenza, injectabl e, quadrivalent, preservative free Dr. Anurag Dolan Work Phone: [facility] 08-27-2021 influenza, seasonal, injectable Dr. Anurag Dolan Work Phone: [facility] 08-26-2021 Fluzone High-Dose Quadrivalent 0.7 ML Intramuscular Suspension Prefilled Syringe Anurag Dolan Work Phone: [facility] Work Phone: 02-19-2021 Covid (Moderna); Translations: [Moderna COVID-19 Vaccine] Dr. Anurag Dolan Work Phone: [facility] 01-22-2021 Covid (Moderna); Translations: [Moderna COVID-19 Vaccine] Dr. Anurag Dolan Work Phone: [facility] 08-26-2020 Fluzone High-Dose Quadrivalent 0.7 ML Intramuscular Suspension Prefilled Syringe Anurag Dolan Work Phone: [facility] Work Phone: 08-22-2019 influenza, high dose seasonal, preservative-free Anurag Dolan Work Phone: [facility] Work Phone: 09-06-2018 influenza, high dose seasonal, preservative-free Anurag Dolan Work Phone: [facility] Work Phone: 09-06-2018 pneumococcal conjuga te vaccine, [address] Anurag Dolan Work Phone: [facility] 09-30-2017 pneumococcal conjuga te vaccine, [address] Anurag Dolan Work Phone: [facility] 09-06-2017 influenza, high dose seasonal, preservative-free Anurag Dolan Work Phone: [facility] Work Phone: 10-01-2015 influenza, high dose seasonal, preservative-free Anurag Sue Dolan Work Phone: [facility] Work Phone: 01-19-2014 zoster vaccine, live Anurag A [place] Work Phone: [facility] Work Phone: 10-18-2007 influenza virus vaccine, whole virus Anurag Dolan Work Phone: [facility] Work Phone: 1940 pneumococcal conjuga te vaccine, 7 valent [facility] No information available. [place] [facility] Work Phone: Payers Date Payer Category Payer Medicare [id number] 2021 Medicare [employer] SECURE [id number] 2021-Present [address] [place] [address] Medicare HMO [id number] 2021 Self-pay [id number] 2021 Unknown [id number] 2013 [place] [id number] 2013 Medicare [id number] 1940 Unknown [id number] 2.16840.1.755678.3.579. 2.356 1940 Unknown [id number] 2.16.840.1.640483.3.579. 2.356 1940 Unknown [id number] 2.16.840.1.702109.3.579. 2.356 1940 Unknown [id number] 2.16.840.1.617020.3.579. 2.356 1941 Unknown [id number] 2.16.840.1.675993.3.579. 2.356 1941 Unknown [id number] 2.16.840.1.150336.3.579. 2.356 1941 Unknown [id number] 2.16.840.1.667401.3.579. 2.356 1941 Unknown [id number] 2.16.840.1.926308.3.579. 2.356 1941 Unknown [id number] 2.16.840.1.156478.3.579. 2.356 1941 Unknown [id number] 2.16.840.1.883505.3.579. 2.356 1941 Unknown [id number] 2.16.840.1.369317.3.579. 2.356 1941 Unknown [id number] 2.16.840.1.227961.3.579. 2.356 1941 Unknown [id number] 2.16.840.1.462361.3.579. 2.356 1941 Unknown [id number] 2.16.840.1.027076.3.579. 2.627 1941 Unknown [id number] 2.16.840.1.362489.3.579. 2.627 1941 Unknown [id number] 2.16.840.1.726941.3.579. 2.627 1941 Unknown [id number] 2.16.840.1.287339.3.579. 2.627 1941 Unknown [id number] 2.16.840.1.389352.3.579. 2.627 1941 Unknown [id number] 2.16.840.1.569677.3.579. 2.627 1941 Unknown [id number] 2.16.840.1.150042.3.579. 2.594 Unknown Unknown [id number] 2.16.840.1.318365.3.579. 2.462 Unknown [id number] 2.16.840.1.009250.3.579. 2.462 Unknown [id number] 2.16.840.1.517036.3.579. 2.462 Unknown [id number] 2.16.840.1.024356.3.579. 2.462 Unknown [id number] 2.16.840.1.795132.3.579. 2.462 Unknown [id number] 2.16.840.1.262286.3.579. 2.462 Unknown [id number] 2.16.840.1.783489.3.579. 2.462 Unknown [id number] 2.840.1.853947.3.579. 2.462 Unknown [id number] 2.16840.1.458144.3.579. 2.462 Unknown [id number] 2.840.1.425991.3.579. 2.462 Unknown [id number] 2.840.1.519580.3.579. 2.462 Unknown [id number] 2.840.1.485320.3.579. 2.462 Unknown [id number] 2.840.1.367308.3.579. 2.462 Unknown [id number] 2.840.1.128851.3.579. 2.462 Unknown [id number] 2.840.1.994545.3.579. 2.462 Unknown [id number] 2.840.1.225488.3.579. 2.462 Unknown [id number] 2.840.1.424577.3.579. 2.462 Unknown [id number] 2.840.1.718670.3.579. 2.462 Unknown [id number] 2.840.1.731267.3.579. 2.462 Unknown [id number] 2.840.1.936240.3.579. 2.462 Unknown [id number] 2.840.1.278837.3.579. 2.462 Unknown [id number] 2.840.1.621347.3.579. 2.462 Unknown [id number] 2.840.1.414721.3.579. 2.462 Unknown [id number] 2.840.1.476407.3.579. 2.462 Unknown [id number] 2.16.840.1.527166.3.579. 2.462 Unknown [id number] 2.16.840.1.757894.3.579. 2.462 Unknown [id number] 2.16.840.1.968996.3.579. 2.462 Unknown [id number] 2.16.840.1.098738.3.579. 2.462 Unknown [id number] 2.16.840.1.422370.3.579. 2.462 Unknown [id number] 2.16.840.1.326597.3.579. 2.462 Unknown [id number] 2.16.840.1.763269.3.579. 2.462 Unknown [id number] 2.16.840.1.860578.3.579. 2.462 Unknown [id number] 2.16.840.1.982261.3.579. 2.462 Social History Date Type Detail Facility Start: 02-20-2022 End: 12-09-2023 Assertion Unknown if ever smoked [facility] Work Phone: Start: 1940 Sex Assigned At Male [facility] Start: 10-31-2020 Non-smoker [facility] Start: 05-05-2023 End: 04-30-2025 Tobacco smoking status NHIS Ex-smoker [facility] History of tobacco use Current smoker [facility] History of tobacco use Cigarette Smoker [facility] Start: 05-05-2023 Tobacco use and exposure Smokeless tobacco non-user [facility] Start: 02-20-2015 End: 05-05-2023 Alcohol intake Current drinker of alcohol (finding) [facility] Start: 05-05-2023 Tobacco Comment Very rarely smoked [facility] Start: 05-05-2023 Alcohol Comment no more than o nce a month [facility] Start: 1940 Sex Assigned At Not on file [facility] Start: 05-05-2023 End: 04-20-2025 Gender identity Not on file [facility] Start: 04-25-2023 End: 05-05-2023 Exposure to SARS-CoV-2 (event) Not sure [facility] Start: 05-05-2023 End: 04-20-2025 History of Social function [facility] Start: 07-13-2024 [facility] Start: 03-01-2025 Sex Male (finding) [facility] National Score (1-100), lower number is lower risk [facility] Start: 02-13-2015 Alcohol Comment occasional [facility] Medical Equipment Procedure Code Equipment Code Equipment Origin al Text Equipment Identifier Dates Insertion, vascular access port PORT,6FR POWER PORT FDA Start: 06-19-2021 Insertion, vascular access port PORT,6FR POWER PORT FDA Start: 06-19-2021 Insertion, vascular access port PORT,6FR POWER PORT FDA Start: 06-19-2021 Insertion, vascular access port PORT,6FR POWER PORT FDA Start: 06-19-2021 Insertion, vascular access port PORT,6FR POWER PORT FDA Start: 06-19-2021 Insertion, vascular access port PORT,6FR POWER PORT FDA Start: 06-19-2021 Insertion, vascular access port PORT,6FR POWER PORT FDA Start: 06-19-2021 Insertion, vascular access port PORT,6FR POWER PORT FDA Start: 06-19-2021 Insertion, vascular access port PORT,6FR POWER PORT FDA Start: 06-19-2021 Insertion, vascular access port PORT,6FR POWER PORT FDA Start: 06-19-2021 Insertion, vascular access port PORT,6FR POWER PORT FDA Start: 06-19-2021 Insertion, vascular access port PORT,6FR POWER PORT FDA Start: 06-19-2021 Insertion, vascular access port PORT,6FR POWER PORT FDA Start: 06-19-2021 Insertion, vascular access port PORT,6FR POWER PORT FDA Start: 06-19-2021 Insertion, vascular access port PORT,6FR POWER PORT FDA Start: 06-19-2021 Insertion, vascular access port PORT,6FR POWER PORT FDA Start: 06-19-2021 Insertion, vascular access port PORT,6FR POWER PORT FDA Start: 06-19-2021 Insertion, vascular access port PORT,6FR POWER PORT FDA Start: 06-19-2021 Insertion, vascular access port PORT,6FR POWER PORT FDA Start: 06-19-2021 Insertion, vascular access port PORT,6FR POWER PORT FDA Start: 06-19-2021 Insertion, vascular access port PORT,6FR POWER PORT FDA Start: 06-19-2021 Insertion, vascular access port PORT,6FR POWER PORT FDA Start: 06-19-2021 Insertion, vascular access port PORT,6FR POWER PORT FDA Start: 06-19-2021 Insertion, vascular access port PORT,6FR POWER PORT FDA Start: 06-19-2021 Insertion, vascular access port PORT,6FR POWER PORT FDA Start: 06-19-2021 Insertion, vascular access port PORT,6FR POWER PORT FDA Start: 06-19-2021 Insertion, vascular access port PORT,6FR POWER PORT FDA Start: 06-19-2021 Insertion, vascular access port PORT,6FR POWER PORT FDA Start: 06-19-2021 Insertion, vascular access port PORT,6FR POWER PORT FDA Start: 06-19-2021 Insertion, vascular access port PORT,6FR POWER PORT FDA Start: 06-19-2021 Goals Date Patient Goal Desired Activity /State Functional Status Date Assessment Result Facility 02-23-2023 Functional status Activity Abili ty Independent [facility] Work Phone: 02-22-2023 Functional status Bedrest [facility] Work Phone: 02-23-2022 Functional status Activity Abili ty Standby Assist [facility] Work Phone: 02-22-2022 Functional status Patient Activity Ambula guille [facility] Work Phone: 01-28-2015 Are you deaf, or do you have serious difficulty hearing No 01/28/2015 2:52 PM Irina Olivia LPN [facility] 01-28-2015 Are you blind, or do you have serious difficulty seeing, even when wearing glasses No 01/28/2015 2:52 PM Irina Olivia LPN No [facility] 01-28-2015 Do you have serious difficulty walking or climbing stairs No 01/28/2015 2:52 PM Irina Olivia LPN No [facility] 01-28-2015 Do you have difficul ty dressing or bathing No 01/28/2015 2:52 PM Irina Olivia STACY No [facility] 01-28-2015 Because of a physica l, mental, or emotional condition, do you have difficulty doing errands alone such as visiting a physician's office or shopping No 01/28/2015 2:52 PM Irina Olivia STACY No [facility] Functional observable [facility] Mental Status Date Assessment Result Facility 04-30-2025 Cognitive function Level Of Cons ciousness Awake;Alert;Appropriate;Fo llows [facility] Work Phone: 03-09-2025 Cognitive function Voice/Name [facility] Work Phone: 02-26-2025 Cognitive function Awake;Alert;[facility]priate[facility]: 02-22-2025 Cognitive function Arousable To Voice/Nam e [facility] Work Phone: 11-03-2023 Cognitive function Awake;Alert;Appropriat e [facility] Work Phone: 05-19-2023 Cognitive function Voice/Name [facility] Work Phone: 02-23-2023 Cognitive function Voice/Name [facility] Work Phone: 02-20-2023 Cognitive function Appropriate;Cooperativ e [facility] Work Phone: 01-29-2023 Cognitive functi ons :02 [facility] 01-26-2023 Cognitive function Voice/Name [facility] Work Phone: 01-18-2023 Cognitive function Level Of Cons ciousness Awake;Alert;Appropriate [facility] Work Phone: 02-23-2022 Cognitive function Voice/Name [facility] Work Phone: 02-20-2022 Cognitive function Level Of Cons ciousness Awake;Alert;Appropriate;Fo llows [facility] Work Phone: 12-30-2021 Cognitive function Voice/Name [facility] Work Phone: 05-26-2021 Cognitive functi ons [id number] [facility] 01-28-2015 Because of a physica l, mental, or emotional condition, do you have serious difficulty concentrating, remembering, or making decisions No 01/28/2015 2:52 PM HENRY PanHelmsPerezIrina STACY No [facility] Clinical Notes 03-04-2021 to 04-30-2025 Note Date & Type Note Facility 04-30-2025 Discharge summary [facility] 04-30-2025 Radiology Diagnostic study note [facility] Imaging Services [address] [place], [place] [address] Chest PA and Lateral MR#: [id number] Acct: [id number] Name: EMPERATRIZ EPPS Rep #: [id number] : 1940 M 85 From: Corrine Burton MD PCP: Dr. Anurag Dolan MD Status: REG ER Study:Chest PA and Lateral Date of Exam: 04/30/25 Exam# [id number] Ordering Dr: Mati Castellano MD PROCEDURE: CHEST PA AND LATERAL 04/30/2025 REASON FOR EXAM: FEVER TECHNIQUE: Frontal and lateral views of the chest. COMPARISON: CT chest on 01/11/2025, chest radiograph 01/18/2023 FINDINGS: Hardware: Right chest port with tip terminating at the superior cavoatrial junction. Heart: Heart is not significantly enlarged. Mediastinum: The mediastinal contour is stable. Aortic atherosclerosis. Lungs: No focal consolidation or significant pleural effusion. Linear opacitiesprojecting over the right lateral lung base are presumed external to the patient. Bones: Degenerative changes are identified within the thoracic spine. RAD/Chest PA and Lateral IMPRESSION: No definite evidence for an acute cardiopulmonary abnormality. Linear opacitiesat the right lateral lung base are likely external to the patient, correlate with findings on exam. Reading Location: [id number] CC: Dr. Mati Castellano MD; Dr. Anurag Dolan MD ~ Protozoology Teacher: Signed [facility] 04-30-2025 Discharge summary Note Date/Time April 30, 2025 6:41pm [facility] Medical Records Department [address] [place] [address] Emergency Department Summary 04/30/25 MR#: [id number] Acct: [id number] Name: EMPERATRIZ EPPS Rep #:[id number] : 1940 85 From: Mati Castellano MD PCP: Dr. Anurag Dolan MD Status:REG ER Location: ED HPI History of Present Illness Chief Complaint: Fever Narrative Narrative: 85-year-old male past medical history of melanoma, has a Mediport presents at the direction of his primary care provider, Dr. Dolan. This is secondary to himhaving fevers every morning for the last week. He states that where he resides,they have a nurse that can take vital signs. It was recommended that he come [facility] emergency department for further evaluation of his reported fevers every morning. He states his fever was as high as 101 ?F. He will take Tylenol, but stated that the nurse did not like or did not feel that it was controlling his fever. He states has had a cough with chills. He was tested for COVID yesterday which was negative. States he has problems with urinary frequency as well but this is secondary to drinking plenty of oral fluids. He presents for hydration of his daily fevers for a week. 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 Depression Melanoma Left shoulder pain Left flank pain Imbalance Mitral valve insufficiency PVC (premature ventricular contraction) PAF (paroxysmal atrial fibrillation) Hypothyroidism (acquired) Essential hypertension Hypokalemia Squamous cell carcinoma of skin Drug rash Cough Hypothyroidism (acquired) CRF (chronic renal failure) Creatinine elevation Open wound of right heel Encounter for immunotherapy Wears glasses Cancer Alcohol use Injury of back Gastric reflux Non-smoker History of brachytherapy Regional lymph node metastasis present Malignant melanoma of right heel Personal history of colonic polyps Hemorrhoids Rheumatoid arthritis Arthritis Osteoarthritis of left knee Melendrez's palsy GERD (gastroesophageal reflux disease) Hx of malignant neoplasm of prostate Hypertension Benign prostate hyperplasia Hypercholesterolemia Sleep disorder Home Medications ?Medication ?Instructions ?Recorded ?Last Taken ?Type omeprazole 40 mg capsule,delayed 40 mg PO DAILY acid r eflux 10/29/20 04/30/25 History release amlodipine 5 mg tablet 5 mg PO DAILY blood pressure 10/06/21 04/30/25 History calcium carbonate (Calcium 600) 600 mg PO DAILY supple ment 01/20/22 04/30/25 History alfuzosin 10 mg tablet,extended 10 mg PO QHS urinary r etention 09/28/22 04/29/25 History release 24 hr peg [id number] 1 2 drp EACH EYE Q1H PRN DRY EYES #0 02/16/23 Unknown Rx %-0.2 %-0.2 % eye drops mL (Artificial Tears ([id number])) finasteride 5 mg tablet 5 mg PO QHS 10/12/23 5 History glucosamine sulfate 500 mg tablet 1,000 mg PO DAILY 04/30/25 History (Glucosamine) multivitamin 1 tab PO DAILY 10/28/2301/23 History lidocaine-prilocaine 2.5 %-2.5 % 1 applic topical ONCE PRN Port 03/15/24 Unknown Rx topical cream access 30 days #30 grams triamcinolone acetonide 0.1 % 1 applic topical BID-TID 07/26/24 Unknown History topical cream acetaminophen 500 mg tablet 1,000 mg PO Q8H PRN PRN pa in 12/21/24 Unknown History (Tylenol Extra Strength) bismuth subsalicylate 262 mg/15 mL 524 mg PO TID PRN d iarrhea 12/21/24 Unknown History oral suspension (Pepto-Bismol) cholecalciferol (vitamin D3) 25 25 mcg PO QDAY 5 04/30/25 History mcg (1,000 unit) tablet diphenhydramine HCl 25 mg capsule 50 mg PO QHS PRN all ergy symptoms 12/21/24 Unknown History (Allergy Relief (diphenhydramine)) levothyroxine 112 mcg tablet 112 mcg PO QDAY thyroid 0 12/21/24 04/30/25 History loratadine 10 mg tablet 10 mg PO QDAY PRN allergy sy mptoms 12/21/24 Unknown History apixaban 5 mg tablet (Eliquis) 2.5 mg PO BID blood thi nner 03/09/25 04/30/25 History guaifenesin 1,200 mg tablet, 1,200 mg PO BID 03/09/25 04/30/25 History extended release 12 hr (Mucinex) ondansetron HCl 4 mg tablet 4 mg PO Q8H PRN nausea and vomiting 03/09/25 Unknown History Lactobacillus acidophilus 20 100 mmu cells PO TIDCM 04/30/25 History billion cell capsule (Florajen Acidophilus) cyproheptadine 4 mg tablet 4 mg PO QHS PRN insomnia Unknown History melatonin 3 mg capsule 3 mg PO QHS 04/30/25 5 History metoprolol tartrate 25 mg tablet 25 mg PO DAILY blood pressure/heart 04/30/25 04/29/25 History prednisone 10 mg tablet 10 mg PO DAILY 04/30/25 Unkn own History prednisone 20 mg tablet 20 mg PO QDAY 04/30/25 Unkno wn History sennosides 8.6 mg tablet 8.6 mg PO BID 04/30/2504/30 History (Black-aujoseph Lax-Senna) Allergy/AdvReac Type Severity Reaction Status Date / Time No Known Allergies Allergy Verified 03/26/25 10:28 Family History Brother Prostate cancer CVA (cerebral vascular accident) Brother Leukemia Father Hypertension Myocardial infarction Mother CHF (congestive heart failure) Surgical History History of cataract extraction History of incision and drainage Hx of foot operation History of root canal procedure Hx of colonoscopy Hx of hemorrhoidectomy Hx of rotator cuff surgery Hx of discectomy Social History household members: none Smoking Status: Former smoker second hand exposure: No alcohol intake: current alcohol intake frequency: a few times a month details: OCCASIONALLY substance use type: does not use well-balanced diet: about half the time caffeine: Yes Type: coffee Number of servings: 1 eating out: 1-3 times/week what type of physical activity do you participate in: bicycling frequency: 3-4 times per week duration: 15-30 minutes/day melany/baptism: Zoroastrianism seatbelt use: always do you feel safe at home: Yes ROS ROS ED ROS Narrative Review of systems positive for fever and chills. Fever happens every morning. Patient takes an antipyretic which she thinks was controlling his fever. Has had cough as well, no shortness of breath. No nausea or vomiting. Positive urinary frequency but no dysuria. No exacerbating or alleviating factors. EXAM Physical Exam Narrative Exam Narrative: Afebrile. Vital signs noted. Nontoxic-appearing. Cardiovascular examination of is a regular rate and rhythm. Lungs are clear to auscultation bilaterally. Abdomen is soft and nontender with normoactive bowel sounds. Positive Mediport right chest. Neurological examination nonfocal, nonlateralizing. Const Vital Signs: 04/30/25 15:24 04/30/25 15:45 04/30/25 17:56 Temperature 98.1 F 98.3 F Temperature Source Oral Oral Pulse Rate 100 85 Respiratory Rate 18 12 Respiratory Effort Normal Non-Labored Respiratory Pattern Normal Blood Pressure 136/86 H 138/87 H Blood Pressure Mean 102 104 Pulse Ox 95 99 Oxygen Delivery Method Room Air Room Air 04/30/25 17:57 Temperature 98.3 F Temperature Source Oral Pulse Rate 85 Respiratory Rate 12 Respiratory Effort Respiratory Pattern Blood Pressure 138/87 H Blood Pressure Mean 104 Pulse Ox 99 Oxygen Delivery Method Room Air MDM MDM MDM Narrative Medical decision making narrative: The differential diagnosis includes but not limited to viral syndrome versus pneumonia versus urinary tract infection. With concern for bacteremia as well, blood cultures will be taken. Chest x-ray in 2 views will be obtained as well as respiratory swab for COVID, influenza, and RSV. Patient is afebrile here. Martha obtain basic laboratory work as well given his multiple comorbidities. Reviewed his laboratory work and he has normal white count of 5.8 with hemoglobin stable at 8.8, hematocrit 26.2. Platelet count 186. Potassium is slightly decreased at 3.1 which was replaced orally with 40 mill equivalents. BUN of 40 and creatinine 2.9, but in review of prior laboratories he has chronickidney disease. He states this is from the medication that he had been taking. LFTs are grossly unremarkable. Urinalysis shows no evidence of infection with negative nitrites 0 bacteria and 0 WBCs. Chest x-ray interpreted by myself independently shows no evidence of consolidation or pneumonia. I reviewed the radiology report which confirms my independent interpretation. I reviewed his respiratory swabs and he is negative for COVID, influenza, and RSV. At this point in time, I am unsure as to the cause of his reported fever every morning, but he is afebrile here and his fever has been controlled. He states that he is generally fatigued, but I do not feel that his hypokalemia is at extreme that would cause his symptoms. Regardless, I do feel he can be discharged to follow-up with his primary care provider, and that he does not require hospitalization at this time. Return instructions to the emergency department were reviewed. Disposition is discharged home in stable condition. History & Record Review Discussion w/independent historian: Patient Lab Data Attestation: I reviewed the patient's lab results. Labs: Laboratory Results - last 24 hr 04/30/25 04/30/25 16:22 17:50 WBC 5.8 RBC 2.72 L Hgb 8.8 L Hct 26.2 L MCV 96.3 H MCH 32.4 H MCHC 33.6 RDW Std Deviation 51.2 H RDW Coeff of Halley 14.6 Plt Count 186 MPV 9.1 Immature Gran % (Auto) 0.900 Neut % (Auto) 90.0 H Lymph % (Auto) 6.8 L Nye % (Auto) 2.3 Eos % (Auto) 0.0 Baso % (Auto) 0.0 Absolute Neuts (auto) 5.2 Absolute Lymphs (auto) 0.39 L Nucleated RBC % 0 Sodium 135 Potassium 3.1 L Chloride 103 Carbon Dioxide 21.0 Anion Gap 12 BUN 40 H Creatinine 2.90 H Estim Creat Clear Calc 19.50 L Est GFR (MDRD) Non-Af 21 L BUN/Creatinine Ratio 13.9 Glucose 183 H Calcium 8.6 Total Bilirubin 0.27 AST 14 ALT 17 Alkaline Phosphatase 73 Total Protein 5.5 L Albumin 3.1 L Globulin 2.5 Albumin/Globulin Ratio 1.3 Urine Color Yellow Urine Clarity Clear Urine pH 6.5 Ur Specific [place] 1.010 Urine Protein 30 H Urine Glucose (UA) Normal Urine Ketones Negative Urine Occult Blood 10 H Urine Nitrite Negative Urine Bilirubin Negative Urine Urobilinogen Normal Ur Leukocyte Esterase Negative Urine RBC 0 SEEN Urine WBC 0 SEEN Ur Squamous Epith Cells 0 SEEN Urine Bacteria 0 SEEN Urine Mucus 0 SEEN Radiography Diagnostic Testing: Clinical Impression(s) from Imaging Studies Chest X-Ray 04/30/25 16:55 IMPRESSION: No definite evidence for an acute cardiopulmonary abnormality. Linear opacitiesat the right lateral lung base are likely external to the patient, correlate with findings on exam. Reading Location: [facility] Discharge Plan Triage Chief Complaint: Fever ED Provider: Mati Castellano Dx/Rx/DC Orders Clinical Impression: Fever, Hypokalemia, Fatigue Instructions: ED FUO Adult, ED Hypokalemia Prescriptions: No Action omeprazole 40 mg capsule,delayed release(DR/EC) 40 mg PO DAILY acetaminophen [Tylenol Extra Strength] 500 mg tablet 1,000 mg PO Q8H PRN PRN (Reason: pain) amlodipine 5 mg tablet 5 mg PO DAILY calcium carbonate [Calcium 600] 600 mg calcium (1,500 mg) tablet 600 mg PO DAILY alfuzosin 10 mg tablet extended release 24 hr 10 mg PO QHS Rx Instructions: administer after the same meal each day finasteride 5 mg tablet 5 mg PO QHS multivitamin Tablet 1 tab PO DAILY glucosamine sulfate [Glucosamine] 500 mg tablet 1,000 mg PO DAILY Rx Instructions: administer with a meal levothyroxine 112 mcg tablet 112 mcg PO QDAY bismuth subsalicylate [Pepto-Bismol] 262 mg/15 mL suspension 524 mg PO TID PRN (Reason: diarrhea) Rx Instructions: do not exceed 8 doses in a 24 hour period cholecalciferol (vitamin D3) 25 mcg (1,000 unit) tablet 25 mcg PO QDAY diphenhydramine HCl [Allergy Relief(diphenhydramin)] 25 mg capsule 50 mg PO QHS PRN (Reason: allergy symptoms) loratadine 10 mg tablet 10 mg PO QDAY PRN (Reason: allergy symptoms) triamcinolone acetonide 0.1 % cream 1 applic topical BID-TID Florajen Acidophilus 20 billion cell capsule 100 mmu cells PO TIDCM guaifenesin [Mucinex] 1,200 mg tablet extended release 12hr 1,200 mg PO BID ondansetron HCl 4 mg tablet 4 mg PO Q8H PRN (Reason: nausea and vomiting) Eliquis 5 mg tablet 2.5 mg PO BID Artificial Tears(uw-eenu-degm) 1-0.2-0.2 % Drops 2 drp EACH EYE Q1H PRN (Reason: DRY EYES) Qty: 0 0RF cyproheptadine 4 mg tablet 4 mg PO QHS PRN (Reason: insomnia) melatonin 3 mg capsule 3 mg PO QHS prednisone 10 mg tablet 10 mg PO DAILY Rx Instructions: IN ADDITION TO 20MG PER [facility] MED LIST sennosides [Black-Draught Lax-Senna] 8.6 mg tablet 8.6 mg PO BID prednisone 20 mg tablet 20 mg PO QDAY Rx Instructions: IN ADDITION TO 10MG PER [facility] MED LIST metoprolol tartrate 25 mg tablet 25 mg PO DAILY lidocaine-prilocaine 2.5-2.5 % cream 1 applic topical ONCE PRN (Reason: Port access ) 30 Days Qty: 30 2RF Primary Care Provider: Anurag Dolan Referrals: Anurag Dolan MD [Primary Care Provider] - 3-5 Days if not improving Activity Restrictions/Additional Instructions: Follow-up with your primary care provider in 3 to 5 days if not improving. You may need to have your potassium rechecked as well. Your blood cultures and urine cultures are currently pending. If you do not hear from the hospital in afew days, assume that they are negative. Return with sustained high fever, new or worsening symptoms. Print Language: Setswana Disposition Disposition: Home, Self Care What to do if you have Problems For any increased pain, shortness of breath, bleeding, nausea or vomiting, chestpain, or any unexpected problems, contact your Primary Care Provider. Call [facility] ([phone]) or report to the closest Emergency Room. Call 911 if necessary. 04/30/25 184 <Electronically signed by Mati Castellano MD> Cosigner Signature (if applicable): CC: Dr. Anurag Dolan MD ~ Signed [facility] Work Phone: 1(932) 444-735006-02-2025 Hospital Discharge instructions Additional Instructions Follow-up with your primary care provider in 3 to 5 days if not improving. You may need to have your potassium rechecked as well. Your blood cultures and urine cultures are currently pending. If you do not hear from the hospital in a few days, assume that they are negative. Return with sustained high fever, new or worsening symptoms.[facility] Work Phone: [phone]) 563-748005-29-2025 Telephone encounter Note* Telephone Encounter - Celeste Denny RN - 04/26/2025 10:17 AM EDT RNCC returned the patient's call. He is supposed to get a BMP weekly per provider but there is no order for it. Patient was assured that an order will be pended to the provider for his approval. Patient will go and get lab completed tomorrow. RNCC pended an order for standing BMP and routed it to the provider for his approval. Celeste FARAH [facility]05-29-2025 Miscellaneous Notes* Telephone Encounter - Celeste Denny RN - 04/26/2025 10:17 AM EDT RNCC returned the patient's call. He is supposed to get a BMP weekly per provider but there is no order for it. Patient was assured that an order will be pended to the provider for his approval. Patient will go and get lab completed tomorrow. RNCC pended an order for standing BMP and routed it to the provider for his approval. 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 He states he should behaving labs done weekly. Would like a call back. Patient has been identified by name and birthdate. 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 He states he should behaving labs done weekly. Would like a call back. Patient has been identified by name and birthdate. Requesting response back: [phone] (work) [phone] (cell) Lianna Eldridge [birth year]25 [facility]05-23-2025 NoteHNO ID: [id number] Author: EDIS RODRIGEZ MD Service: ? Author Type: Physician Type: Progress Notes Filed: 04/22/2025 14:14 Note Text: [facility] Patient name: Emperatriz Epps Date of service: 04/20/25 Reason for evaluation: Request for medical oncology opinion by Self for metastatic melanoma. Diagnosis Metastatic Melanoma Oncology History 05/07/2021- WLE And SLNB - Heel lesion, acral melanoma, 2.5 mm, non ulcerated, 1/4 lymph nodes positive (.02 mm), T3N1a May 2021- May 2022- Adjuvant Pembrolizumab Dec 23, 2022- R inguinal lymph node dissection 4/10 lymph nodes positive for metastatic melanoma recurrence, with extracapsular extension March 16- April 12, 2023- Adjuvant RT to inguinal lymph node basin 4800 cGy Sep 2023 - Bx of liver lesion positive for metastatic melanoma Nov 18 2023- Jan 27 2024- Ipilimumab + Nivolumab with MS in liver January 2024- Dec 2024- Nivolumab monotherapy, 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 Mr Epps was dx with stage IIIa melanoma in 2020 followed by regional recurrence in 2022, and metastatic recurrence in the liver in Nov of 2023. He has had a significant partial response in the liver after ipi/nivo and was on maintenance nivolumab for a year until he developed nephritis and therapy has been on hold since Dec 2024 as he is completing a steroid taper. He has had general fatigue. 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 Prostate cancer Hemorrhoids Osteoarthritis Unspecified essential hypertension Essential hypertension Surgical History PAST SURGICAL HISTORY Procedure Laterality Date COLONOSCOP W/ OR W/O [facility] SPEC 2002 COLONOSCOP W/ OR W/O [facility] SPE[facility] 02-13-15 HEMORRHOID;BAND LIGAT, SNGL/MUL 2012 Hemorrhoidectomy HEMORRHOIDECT INTER/EXTER SIMP 1994 LAMINECTOMY,LUMBAR 2000 Laminectomy, lumbar L4-L5 RADIATION TREATMENT MANAGEMENT 12/01/2005 Radiation therapy Prostate cancer REPAIR ROTATOR CUFF,ACUTE Rotator cuff repair-- left VASECTOMY Family History FAMILY HISTORY Problem Relation Age of Onset Allergies Brother Ischemic Heart Disease Mother Hypertension Mother Psychiatry Brother Social History Social History Tobacco Use Smoking status: Never Substance Use Topics Alcohol use: Yes Comment: occasional Drug use: No Medications Current Outpatient Medications Medication Sig Dispense Refill acetaminophen (TYLENOL) 500 mg tablet Take 500 mg by mouth every 8 hours as needed. apixaban (ELIQUIS) 2.5 mg tab(s) Take 2.5 mg by mouth two times a day. polyvinyl alcohol/povidone (ARTIFICIAL TEARS OPHTHALMIC) Use 1 drop in eyes once daily. diphenhydrAMINE (BENADRYL ALLERGY) 25 mg tablet Take 25 mg by mouth every 6 hours as needed. cyproheptadine (PERIACTIN) 4 mg tablet Take 4 mg by mouth one time only. finasteride (PROSCAR) 5 mg tablet Take 5 mg by mouth daily at bedtime. Lactobacillus acidophilus (FLORAJEN ACIDOPHILUS ORAL) Take 1 capsule by mouth with meals. levothyroxine (LEVOXYL) 112 mcg tablet Take 112 mcg by mouth daily before breakfast. lidocaine-prilocaine (EMLA) 2.5-2.5 % cream 1 application as needed. loratadine (CLARITIN) 5 mg/5 mL syrup Take 10 mg by mouth once daily. melatonin 3 mg capsules Take 3 mg by mouth daily at bedtime. metoprolol tartrate, short acting, (LOPRESSOR) 25 mg tablet Take 25 mg by mouth every evening. guaiFENesin (MUCINEX) 600 mg 12 hr tablet Take 1,200 mg by mouth two times a day as needed for cold/allergy symptoms. ondansetron (ZOFRAN) 4 mg tablet Take 4 mg by mouth every 8 hours as needed. bismuth subsalicylate (PEPTO-BISMOL ORAL) Take 40 mg by mouth as needed. POTASSIUM-99 ORAL Take 1 tablet by mouth once daily. INV PREDNISONE 10 mg TABLET (IRB 23-471) Take 20 mg by mouth once daily. For Investigational Drug Use Only, PI: Charlie Sandra. Senna 8.6 mg tab Take 8.6 mg by mouth two times a day. triamcinolone acetonide (KENALOG) 0.1 % cream Apply 1 application to affected area as needed. cholecalciferol (VITAMIN D) 1,000 unit tab tablet Take 1,000 Units by mouth every afternoon. multivitamin tablet Take 1 tablet by mouth once daily. calcium carbonate(CALCIUM 600 600 MG (1,500 MG) TAB) two tablets daily 0 Glucosamine Sulfate (GLUCOSAMINE) 500 mg ORAL Tab Take one tab three times daily (Patient taking differently: Take 2 tablets by mouth once daily.) 1 0 alfuzosin SR (UROXATRAL) 10 mg 24 hr tablet Take 10 mg by mouth daily at bedtime. (Patient not taking: Reported on 04/20/2025) amLODIPine (NORVASC) 5 mg tablet Take 5 mg by mouth once daily. (Patient not (more content not included)...[facility]05-23-2025 History of Present illness Narrative* Edis Rodrigez MD - 04/20/2025 11:11 PM EDT Images from the original note were not included. [facility] Patient name: Emperatriz Epps Date of service: 04/20/25 Reason for evaluation: Request for medical oncology opinion by Self for metastatic melanoma. Diagnosis Metastatic Melanoma Oncology History 05/07/2021- WLE And SLNB - Heel lesion, acral melanoma, 2.5 mm, non ulcerated, 1/4 lymph nodes positive (.02 mm), T3N1a May 2021- May 2022- Adjuvant Pembrolizumab Dec 23, 2022- R inguinal lymph node dissection 03/08 lymph nodes positive for metastatic melanoma recurrence, with extracapsular extension March 16- April 12, 2023- Adjuvant RT to inguinal lymph node basin 4800 cGy Sep 2023 - Bx of liver lesion positive for metastatic melanoma Nov 18 2023- Jan 27 2024- Ipilimumab + Nivolumab with MS in liver January 2024- Dec 2024- Nivolumab monotherapy, 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 Mr Epps was dx with stage IIIa melanoma in 2020 followed by regional recurrence in 2022, and metastatic recurrence in the liver in Sep. He has had a significant partial response in the liver after ipi/nivo and was on maintenance nivolumab for a year until he developed nephritis and therapy has been on hold since Dec 2024 as he is completing a steroid taper. He has had general fatigue. 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 Prostate cancer Hemorrhoids Osteoarthritis Unspecified essential hypertension Essential hypertension Surgical History PAST SURGICAL HISTORY Procedure Laterality Date COLONOSCOP W/ OR W/O [facility] SPEC 2002 COLONOSCOP W/ OR W/O BRS SPEC 02-13-15 HEMORRHOID;BAND LIGAT, SNGL/MUL 2012 Hemorrhoidectomy HEMORRHOIDECT INTER/EXTER SIMP 1994 LAMINECTOMY,LUMBAR 2000 Laminectomy, lumbar L4-L5 RADIATION TREATMENT MANAGEMENT 12/01/2005 Radiation therapy Prostate cancer REPAIR ROTATOR CUFF,ACUTE Rotator cuff repair-- left VASECTOMY Family History FAMILY HISTORY Problem Relation Age of Onset Allergies Brother Ischemic Heart Disease Mother Hypertension Mother Psychiatry Brother Social History Social History Tobacco Use Smoking status: Never Substance Use Topics Alcohol use: Yes Comment: occasional Drug use: No Medications Current Outpatient Medications Medication Sig Dispense Refill acetaminophen (TYLENOL) 500 mg tablet Take 500 mg by mouth every 8 hours as needed. apixaban (ELIQUIS) 2.5 mg tab(s) Take 2.5 mg by mouth two times a day. polyvinyl alcohol/povidone (ARTIFICIAL TEARS OPHTHALMIC) Use 1 drop in eyes once daily. diphenhydrAMINE (BENADRYL ALLERGY) 25 mg tablet Take 25 mg by mouth every 6 hours as needed. cyproheptadine (PERIACTIN) 4 mg tablet Take 4 mg by mouth one time only. finasteride (PROSCAR) 5 mg tablet Take 5 mg by mouth daily at bedtime. Lactobacillus acidophilus (FLORAJEN ACIDOPHILUS ORAL) Take 1 capsule by mouth with meals. levothyroxine (LEVOXYL) 112 mcg tablet Take 112 mcg by mouth daily before breakfast. lidocaine-prilocaine (EMLA) 2.5-2.5 % cream 1 application as needed. loratadine (CLARITIN) 5 mg/5 mL syrup Take 10 mg by mouth once daily. melatonin 3 mg capsules Take 3 mg by mouth daily at bedtime. metoprolol tartrate, short acting, (LOPRESSOR) 25 mg tablet Take 25 mg by mouth every evening. guaiFENesin (MUCINEX) 600 mg 12 hr tablet Take 1,200 mg by mouth two times a day as needed for cold/allergy symptoms. ondansetron (ZOFRAN) 4 mg tablet Take 4 mg by mouth every 8 hours as needed. bismuth subsalicylate (PEPTO-BISMOL ORAL) Take 40 mg by mouth as needed. POTASSIUM-99 ORAL Take 1 tablet by mouth once daily. INV PREDNISONE 10 mg TABLET (IRB 23-471) Take 20 mg by mouth once daily. For Investigational Drug Use Only, PI: Charlie aSndra. Senna 8.6 mg tab Take 8.6 mg by mouth two times a day. triamcinolone acetonide (KENALOG) 0.1 % cream Apply 1 application to affected area as needed. cholecalciferol (VITAMIN D) 1,000 unit tab tablet Take 1,000 Units by mouth every afternoon. multivitamin tablet Take 1 tablet by mouth once daily. calcium carbonate(CALCIUM 600 600 MG (1,500 MG) TAB) two tablets daily 0 Glucosamine Sulfate (GLUCOSAMINE) 500 mg ORAL Tab Take one tab three times daily (Patient taking differently: Take 2 tablets by mouth once daily.) 1 0 alfuzosin SR (UROXATRAL) 10 mg 24 hr tablet Take 10 mg by mouth daily at bedtime. (Patient not taking: Reported on 04/20/2025) amLODIPine (NORVASC) 5 mg tablet Take 5 mg by mouth once daily. (Patient not taking: Reported on 04/20/2025) [place]-3 Fatty Acids-Vitamin E (FISH OIL) 1,000 mg cap Take 1 capsule by mouth. bisoprolol (ZEBETA) 5 mg tablet Take 5 mg by mouth once daily. mometasone (ELOCON) 0.1 % ointment Apply 1 application to affected area once daily. LISINOPRIL 20 MG TAB Take one(1) tablet daily. 0 omeprazole magnesium(PRILOSEC OTC 20 MG TAB) Take 40 mg by mouth every morning. 0 aspirin(ADULT ASPIRIN EC LOW STRENGTH 81 MG TAB, DELAYED RELEASE) Take one(1) tablet daily. 0 No current facility-administered medications for this visit. Allergies ALLERGIES Allergen Reactions Environmental [Othe* Review of systems Review of systems is negative except that noted in HPI. Physical exam Vitals BP 141/87 Pulse 74 Temp 36.8 C (98.2 F) (Temporal) Resp 20 Ht 171.1 cm (5' 7.36) Wt 89.8kg (197 lb 15.6 oz) SpO2 99% BMI 30.67 kg/m ECOG PERFORMANCE STATUS: 1- Restricted in physically strenuous activity. Carries out light duty. Physical Exam Constitutional: Appearance: Normal appearance. HENT: Head: Normocephalic and atraumatic. Eyes: General: Right eye: No discharge. Left eye: No discharge. Cardiovascular: Pulses: Normal pulses. Heart sounds: Normal heart sounds. No murmur heard. Pulmonary: Effort: Pulmonary effort is normal. No respiratory distress. Breath sounds: Normal breath sounds. Abdominal: General: Abdomen is flat. There is no distension. Palpations: Abdomen is soft. Skin: General: Skin is warm and dry. Coloration: Skin is not jaundiced. Neurological: General: No focal deficit present. Mental Status: He is alert and oriented to person, place, and time. Psychiatric: Mood and Affect: Mood normal. Behavior: Behavior normal. Labs Recent Results (from the past 2 weeks) COMPLETE BLOOD COUNT AND DIFFERENTIAL Collection Time: 04/20/25 3:03 PM Result Value Ref Range WBC 7.78 3.70 - 11.00 k/uL RBC 3.11 (L) 4.20 - 6.00 m/uL Hemoglobin 9.9 (L) 13.0 - 17.0 g/dL Hematocrit 29.8 (L) 39.0 - 51.0 % MCV 95.8 80.0 - 100.0 fL MCH 31.8 26.0 - 34.0 pg MCHC 33.2 30.5 - 36.0 g/dL RDW-CV 15.1 (H) 11.5 - 15.0 % Platelet Count 174 150 - 400 k/uL MPV 9.3 9.0 - 12.7 fL Neutrophils % 92.8 % Abs Neut 7.22 1.45 - 7.50 k/uL Lymphocytes % 4.4 % Abs Lymph 0.34 (L) 1.00 - 4.00 k/uL Monocytes % 1.8 % Abs Nye 0.14 <0.87 k/uL Eosinophils % 0.0 % Abs Eosin <0.03 <0.46 k/uL Basophils % 0.0 % Abs Baso <0.03 <0.11 k/uL Immature Granulocytes % 1.0 % Abs Immature Gran 0.08 <0.10 k/uL NRBC 0.0 /100 WBC Absolute nRBC <0.01 <0.01 k/uL Diff Type Auto COMPREHENSIVE METABOLIC PANEL Collection Time: 04/20/25 3:03 PM Result Value Ref Range Protein, Total 6.0 (L) 6.3 - 8.0 g/dL Albumin 3.6 (L) 3.9 - 4.9 g/dL Calcium, Total 8.2 (L) 8.5 - 10.2 mg/dL Bilirubin, Total 0.4 0.2 - 1.3 mg/dL Alkaline Phosphatase 77 38 - 113 U/L AST 12 (L) 14 - 40 U/L ALT 18 10 - 54 U/L Glucose 152 (H) 74 - 99 mg/dL BUN 45 (H) 9 - 24 mg/dL Creatinine 2.78 (H) 0.73 - 1.22 mg/dL Sodium 141 136 - 144 mmol/L Potassium 3.4 (L) 3.7 - 5.1 mmol/L Chloride 108 (H) 98 - 107 mmol/L CO2 19 (L) 22 - 30 mmol/L Anion Gap 14 8 - 15 mmol/L Estimated Glomerular Filtration Rate 22 (L) >=60 mL/min/1.73m LACTATE DEHYDROGENASE Collection Time: 04/20/25 3:03 PM Result Value Ref Range LD 318 (H) 135 - 225 U/L ] I personally reviewed his most recent lab results. Imaging I personally reviewed his CT Scans Assessment and plan Emperatriz Epps is an 85 year old male with a history of HTN, hypothyroidism who is presenting for medical oncology evaluation of acral melanoma. #Metastatic Melanoma (Liver), BRAF WT He was originally diagnosed with stage IIIa melanoma in 2020 and completed one year of adjuvant pembrolizumab. Approximately 6 months after completing adjuvant therapy he had a regional recurrence and had a inguinal lymph node dissection with 4/10 lymph nodes positive. He then completed adjuvant RT. In Sep he was found to have metastatic disease with biopsy confirmed liver metastasis. He had a significant partial response after Ipi/Nivo and then continued nivolumab monotherapy through Dec 2024. It has now been held in the setting of nephritis. We reviewed the recent CT scan from Dec 2024 which shows continued response to therapy. Discussed responses to immune therapy can be durable lasting years- but it is a delicate balance, as the duration of response will be uncertain especially now requiring prednisone. We discussed there is a high risk of progression. The prednisone is needed for nephritis but now that he has been on for 6 weeks with improvement in creatinine, I would attempt to taper down below 10 in the upcoming few weeks. Discussed risks of worsening nephritis and potential need for dialysis but this is balanced by the riskof life threatening progression of the melanoma., with risk of melanoma progression increasing with longer durations of high dose steroid. In setting of BRAF WT status, the only effective therapies for melanoma will be immune therapy based. Reviewed he will unfortunately not qualify for trials given the nephritis and current kidney function. Thus our best approach is trying to maintain the current treatment response by tapering down on steroids pending stability of kidney function. - Currently on 40 mg of prednisone, would taper to 30 mg starting tomorrow X 1 week, then 20 X 1 week, 10 mg X 1 week and 5 mg X 1 week - Check BMP weekly. - Repeat PET CT scan, needed as cannot use contrast with kidney function, and to assess status of multiple liver lesions #Nephritis Baseline Cr appears to be in the 1.3 to 1.5 range over the past several years. Creatine abruptly peaked to 5.9 from Nov- February of 2025. Seen by nephrology, started on pred 1 mg/kg in February with quickimprovement in kidney function (although still elevated in 3 range). 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 Currently on 40 mg of prednisone. As above will attempt to taper down on prednisone with close monitoring of kidney function. Edis Rodrigez MD SELF 60 minutes spent on encounter including chart review, face to face visit and documentation * Maryan Yadav RN - 04/20/2025 1:14 PM EDT Additional intake questions: Has the patient had fever, nausea, vomiting, diarrhea, constipation, fatigue for > 1 week? No Does the patient have a decreased appetite? No Does patient want to see a Hydrogeologist? No (yes to any of above refer patient to schedulers for dietitian appointment) ) Does patient have any new or increased numbness or tingling of extremities? No Is patient interested in fertility information? No Does patient need any prescription refills? No Does patient have an advanced directive in place? No, Patient refused referral to Social Work or Resource Center [facility] NoteHNO ID: [id number] Author: MARYAN YADAV RN Service: ? Author Type: Registered Nurse Type: Progress Notes Filed: 04/22/2025 14:14 Note Text: Additional intake questions: Has the patient had fever, nausea, vomiting, diarrhea, constipation, fatigue for > 1 week? No Does the patient have a decreased appetite? No Does patient want to see a Hydrogeologist? No (yes to any of above refer patient to schedulers for dietitian appointment) ) Does patient have any new or increased numbness or tingling of extremities? No Is patient interested in fertility information? No Does patient need any prescription refills? No Does patient have an advanced directive in place? 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 February 15, 2025 8:41am Regional lymph node metastasis present chronic February 15 025 8:41am Nephritis acute March 07 9:36am Hx of malignant neoplasm of prostate chronic March 07, 2025 9:36am Malignant melanoma of right heel chronic March 07, 2025 9:36am 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 March 07, 2025 9:36am Regional lymph node metastasis present chronic March 07 9:36am MEERA (acute kidney injury) acute March 12, 2025 9:30am Hx of malignant neoplasm of prostate chronic March 12, 2025 9:30am Malignant melanoma of right heel chronic March 12, 2025 9:30am 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 March 12, 2025 9:30am Regional lymph node metastasis present chronic March 12, 9:30am MEERA (acute kidney injury) acute March 26, 2025 9:39am Hx of malignant neoplasm of prostate chronic March 26, 2025 9:39am Malignant melanoma of right heel chronic March 26, 2025 9:39am 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 March 26, 2025 9:39am Regional lymph node metastasis present chronic March 26 9:39am MEERA (acute kidney injury) acute April 11, 2025 10:10am Hx of malignant neoplasm of prostate chronic April 11, 2025 1 0:10am Malignant melanoma of right heel chronic April 11, 2025 1 0:10am 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 March 292024 10:10am Regional lymph node metastasis present chronic April 11 10:10am [facility] Work Phone: 1(151) 771-892101-23-2025 Evaluation note* Diagnosis Onset Date Resolution Status Admit Date Essential hypertension acute [facility] 2024 11:22am PAF (paroxysmal atrial fibrillation) acute December 21 11:22am Hx of malignant neoplasm of prostate chronic December 21 12:12pm Malignant melanoma of right heel chronic December 21 12:12pm 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 Jan[place] 2024 12:12pm 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 December 21 12:12pm Hx of malignant neoplasm of prostate chronic January 18 9:33am Malignant melanoma of right heel chronic January 18 9:33am 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 2024 9:33am 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 January 18 9:33am Hx of malignant neoplasm of prostate chronic February 15, 2025 8:41am Malignant melanoma of right heel chronic February 15, 2025 8:41am 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 February 15, 2025 8:41am 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 February 15, 2025 8:41am Nephritis acute March 07 9:36am Hx of malignant neoplasm of prostate chronic March 07, 2025 9:36am Malignant melanoma of right heel chronic March 07, 2025 9:36am 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 March 07, 2025 9:36am 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 March 07, 2025 9:36am MEERA (acute kidney injury) acute March 12, 2025 9:30am Hx of malignant neoplasm of prostate chronic March 12, 2025 9:30am Malignant melanoma of right heel chronic March 12, 2025 9:30am 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 March 12, 2025 9:30am 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 March 12, 2025 9:30am MEERA (acute kidney injury) acute March 26, 2025 9:39am Hx of malignant neoplasm of prostate chronic March 26, 2025 9:39am Malignant melanoma of right heel chronic March 26, 2025 9:39am 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 March 26, 2025 9:39am 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 March 26, 2025 9:39am MEERA (acute kidney injury) acute April 11, 2025 10:10am Hx of malignant neoplasm of prostate chronic April 11, 2025 1 0:10am Malignant melanoma of right heel chronic April 11, 2025 1 0:10am 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 March 292024 10:10am 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 April 11, 2025 1 0:10am [facility] Work Phone: 1(825) 629-627412-11-2024 Evaluation note* Diagnosis Onset Date Resolution Status Admit Date Osteoarthritis of left knee acute November 08, 2024 11:17am Right knee DJD acute October 292023 11:17am Encounter for immunotherapy acute November 23, 2024 12:11pm Hypokalemia acute October 12:11pm Malignant melanoma of right heel chronic November 23, 024 12:11pm 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 Decem evangelista 2023 12:11pm 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 November 23 024 12:11pm Essential hypertension acute pilyary 2024 11:22am PAF (paroxysmal atrial fibrillation) acute December 21 11:22am Hx of malignant neoplasm of prostate chronic December 21 12:12pm Malignant melanoma of right heel chronic December 21 12:12pm 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 Janua ry 2024 12:12pm 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 December 21 12:12pm Hx of malignant neoplasm of prostate chronic January 18, 025 9:33am Malignant melanoma of right heel chronic January 18 9:33am 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 Febru 2024 9:33am 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 January 18 9:33am Hx of malignant neoplasm of prostate chronic February 15, 2025 8:41am Malignant melanoma of right heel chronic February 15, 2025 8:41am 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 male presenting for follow-up of PVCs atrial fibrillation and nocturnal bradycardia. From a cardiac standpoint he is feeling fine. He denies any significant palpitation. Hehad an awareness of the PVCs there were to 10% burden. There is no lightheadedness presyncope or syncope. Energy level is good. He is maintaining a beta-ryder not sure which 1 at low- dose. We reviewed again his Holter monitor demonstrating type I second-degree AV block at night. Past Medical History: Past Medical History: Diagnosis Date Melendrez's palsy BPH (benign prostatic hyperplasia) CKD (chronic kidney disease) stage 3 ETOH abuse GERD (gastroesophageal reflux disease) HTN (hypertension) Hypercholesteremia Hypothyroid Melanoma (HCC) right heel OA (osteoarthritis) of knee PAF (paroxysmal atrial fibrillation) (CMS/HCC) (HCC) Past Surgical History Past Surgical History: [...] Take 1,000 Units by mouth daily. Vitamin Dnot D3, Disp: , Rfl: Eliquis 5 MG [...] normal. Laboratory Tests: No results found for: WBC, HGB, HCT, MCV, PLT No results found for: GLUCOSE, CALCIUM, NA, K, CO2, CL, BUN, CREATININE @LASTCMP@ No results found for: CHLPL, CHOL No results found for: TRIG No results found for: HDL No results found for: LDLCALC Assessment and Plan: PVCs: In 5 minutes of palpation auscultation I did not detect any. ECG demonstrates sinus rhythm without ectopy. He will continue his low-dose beta- ryder. He will contact our office later today so we can accurately notate which 1. Atrial fibrillation: Paroxysmal. Would not recommend antiarrhythmic drug. Would recommend continuing anticoagulation with Eliquis and his low-dose beta-ryder. Nocturnal bradycardia: Remains asymptomatic. ECG today is normal. He will now follow-up in [place] and establish with a petrography teacher there. documented in this [facility]06-07-2023 Evaluation + Plan note* Assessment & Plan Note - JEREMIAH Martinez CNP - 05/05/2023 11:01 AM EDT Associated Problem(s): PVC (premature ventricular contraction) He denies any more palpitations. For now we will continue metoprolol tartrate 25 mg twice daily. He is questioning if he needs to continue following here or if he can just follow-up in [place] I have advised him that we will schedule a 6-month follow-up with Dr. Dolan and if he feels in 6 months that he remains stable from a cardiac standpoint he can cancel that appointment and continue following with his primary cardiology team. [facility] [id number] Miscellaneous Notes* Assessment & Plan Note - JEREMIAH Martinez CNP - 05/05/2023 11:01 AM EDTAssociated Problem(s): PVC (premature ventricular contraction) He denies any more palpitations. For now we will continue metoprolol tartrate 25 mg twice daily. He is questioning if he needs to continue following here or if he can just follow-up in [place] I have advised him that we will schedule a 6-month follow-up with Dr. Dolan and if he feels in 6 months that he remains stable from a cardiac standpoint he can cancel that appointment and continue following with his primary cardiology team. * Assessment & Plan Note - JEREMIAH Martinez CNP - 05/05/2023 11:00 AM EDT Associated Problem(s): Paroxysmal atrial fibrillation (CMS/HCC) (HCC) He has not had recurrence even through his 4-week hospital stay with a strep infection into his clavicle bone. He denies any further palpitations at all. For now we will wait and watch and he will continue Eliquis 5 mg twice a day for stroke prevention.We will also continue low-dose metoprolol. documented in this [facility]06-07-2023 Evaluation + Plan note* Assessment & Plan Note - JEREMIAH Martinez CNP - 05/05/2023 11:00 AM EDT Associated Problem(s): Paroxysmal atrial fibrillation (CMS/HCC) ([facility]) He has not had recurrence even through his 4-week hospital stay with a strep infection into his clavicle bone. He denies any further palpitations at all. For now we will wait and watch and he will continue Eliquis 5 mg twice a day for stroke prevention.We will also continue low-dose metoprolol. [facility] [id number] History of Present illness Narrative* JEREMIAH Martinez CNP - 05/05/2023 10:30 AM EDT Images from the original note were not included. [facility] [address] [address] Dept: [phone] Dept Loc: [phone] Visit type: Established : 1940 Reason for Visit: 6 Month Follow-up Assessment and Plan 1. PVC (premature ventricular contraction) Assessment & Plan: He denies any more palpitations. For now we will continue metoprolol tartrate 25 mg twice daily. He is questioning if he needs to continue following here or if he can just follow-up in [place] I have advised him that we will schedule a 6-month follow-up with Dr. Dolan and if he feels in 6 months that he remains stable from a cardiac standpoint he can cancel that appointment and continue following with his primary cardiology team. 2. PAF (paroxysmal atrial fibrillation) (CMS/HCC) ([facility]) - ECG 12 lead - CLINIC PERFORMED 3. Paroxysmal atrial fibrillation (CMS/HCC) ([facility]) Assessment & Plan: He has not had recurrence even through his 4-week hospital stay with a strep infection into his clavicle bone. He denies any further palpitations at all. For now we will wait and watch and he will continue Eliquis 5 mg twice a day for stroke prevention.We will also continue low-dose metoprolol. Follow up in about 6 months (around 11/04/2023), or RaeannKS. Aleta Emperatriz Epps is a 82 y.o. male known to Dr Dolan who presented in Oct 2022 for evaluation of PVCs atrial fibrillation and abnormal Holter monitor. He is very pleasant gentleman who is status post melanoma resection from his right heel. He has intermittent palpitation intermittent sense of needing to catch his breath. He has had extensive evaluation under the direction of Dr. Pickens. These records are reviewed in detail today [...] and also had lymph involvement in his rightinguinal area which he underwent surgery and radiation. He then somehow developed an infection justunder his left clavicle and had to have surgery and part of his clavicle removed and has been on oral antibiotics after spending 4 weeks in the hospital and a transitional care unit on IV antibiotics. He denies any recent fever or chills but states that his GI tract has had a rough time with the ant ibiotics and he is on probiotic treatment. He currently follows with a nurse practitioner in [place] that worked with Dr. Pickens since he left. Review of Systems Constitutional: [...] by mouth every morning (before breakfast). Do notcrush or chew. zinc gluconate 50 MG tablet [...] (osteoarthritis) of knee PAF (paroxysmal atrial fibrillation) ([facility]/HCC) (HCC) Social History Tobacco Use Smoking status: [...] tests: JEREMIAH Martinez CNP documented in this [facility]06-07-2023 Instructions* Patient Instructions* JEREMIAH Martinez CNP - 05/05/2023 10:30 AM EDT No changes documented in this [facility]04-08-2023 History of Present illness [id number] man with right heel melanoma underwent wide local excision followed by right inguinal lymphadenectomy with sartorius flap for of 10 positive nodes course complicated by recurrent seroma for which pigtail catheter was placed on 03/06. He presents for drain/wound check.[facility] Gustavo and Lisa Burnette DO Work Phone: 1(299) 932-164003-27-[address] Roach [facility] February 22, 2023 3:33pm Note Date/Time February 22, 2023 3:3 3pm [facility] Medical Records Department [address] [place] [address] Progress Note - Infect Disease 02/22/23 1531 MR#: [id number] Acct: [id number] Name: EMPERATRIZ EPPS Rep #:[id number] : 1940 83 From: Melanie magdaleno MD PCP: Dr. Anurag Dolan MD Status:ADM IN Location: [facility]07[facility]1 Physical Exam Narrative Feeling ok, no dyspnea, still good drain output, no fever Const alert and no apparent distress Resp normal air movement and clear to auscultation bilaterally Cardio regular rate and regular rhythm GI soft to palpation, non-tender and non-distended Skin no rashes or lesions noted ID ID: Route of nutrition/ use of supplements: [] Nutritional Intake: [] IV Site: [] Young Catheter: [] Assessment & Plan Assessment/Plan (1) Metastatic melanoma: (2) Thoracic abscess: PLAN: With SC joint involvement. Now s/p OR 01/28/23 at . Cxs with GBS. On ceftriaxone with stop date 03/12/23. Repeat CT chest and neck shows ongoing collections. Still with fair amount of drain output. Wrote rx for him to cont outpt ceftriaxone with weekly labs. Followup with me or prior ID in 2 weeks. Sees surgeon later this week. Will follow 02/22/23 153 <Electronically signed by Melanie Roach MD> Cosigner Signature (if applicable): CC: ~ Signed [facility] Work Phone: 1(427) 458-325203-24-[address] Roach [facility] February 19, 2023 2:29pm Note Date/Time February 19, 2023 2:2 9pm [facility] Medical Records Department [address] [place] [address] Progress Note - Infect Disease 02/19/23 1428 MR#: [id number] Acct: [id number] Name: EMPERTARIZ EPPS Rep #:[id number] : 1940 83 From: Melanie magdaleno MD PCP: Dr. Anurag Dolan MD Status:ADM IN Location: [place] [address] Physical Exam Narrative Feeling ok, no fever, no n/v/d, no SOB. Still with drainage from L chest tube. Const alert and no apparent distress Resp normal air movement and clear to auscultation bilaterally Cardio regular rate and regular rhythm GI soft to palpation, non-tender and non-distended Skin no rashes or lesions noted ID ID: Route of nutrition/ use of supplements: [] Nutritional Intake: [] IV Site: [] Young Catheter: [] Assessment & Plan Assessment/Plan (1) Metastatic melanoma: (2) Thoracic abscess: PLAN: With SC joint involvement. Now s/p OR 01/28/23 at . Cxs with GBS. On ceftriaxone with stop date 03/12/23. Will order CT chest and neck. Still with fair amount of drain output. Wrote rx for him to cont outpt ceftriaxone with weekly labs. Followup with me or prior ID in 2 weeks. Will follow 02/19/23 1429 <Electronically signed by Melanie Roach MD> Cosigner Signature (if applicable): CC: ~ Signed [facility] Work Phone: 1(598) 756-347803-21-[address] Candelaria [facility] February 16, 2023 7:39pm Note Date/Time February 16, 2023 7:3 4pm [facility] Medical Records Department [address] [place] [address] Discharge Summary 02/16/231930 MR#: [id number] Acct: [id number] Name: EMPERATRIZ EPPS Rep #:[id number] : 1940 83 From: Kevin Candelaria MD PCP: Dr. Anurag Dolan MD Status:ADM IN Location: [place] [address] Providers Date of Admission: 02/03/23 Primary Care Physician: Dr. Anurag Dolan MD Consultations 02/03/23 22:43 Consult: Infectious Disease Routine Consulting Provider: Melanie Roach Reason for Consult: Left thoracic abscess s/p I&D, group B strep. EMERGENT Consult: No MD Notified: Yes Date Notified: 02/03/23 Time Notified: 22:44 Method of Notification: Text Reason For Visit: THORACIC ABSCESS Diagnosis Discharge Diagnosis (1) Metastatic melanoma: Status: Acute Code(s): C43.9 - Malignant melanoma of skin, unspecified (2) Thoracic abscess: Status: Acute Code(s): J86.9 - Pyothorax without fistula (3) Debility: Status: Acute Code(s): R53.81 - Other malaise (4) Cellulitis of chest wall: Status: Acute Code(s): L03.313 - Cellulitis of chest wall (5) Allergic rhinitis: Status: Acute Code(s): J30.9 - Allergic rhinitis, unspecified (6) GERD (gastroesophageal reflux disease): Status: Acute Code(s): K21.9 - Gastro-esophageal reflux disease without esophagitis (7) Hypertension: Status: Chronic Code(s): I10 - Essential (primary) hypertension (8) Atrial fibrillation: Status: Acute Code(s): I48.91 - Unspecified atrial fibrillation (9) BPH (benign prostatic hyperplasia): Status: Acute Code(s): N40.0 - Benign prostatic hyperplasia without lower urinary tract symptoms (10) Macular degeneration: Status: Acute Code(s): H35.30 - Unspecified macular degeneration (11) Prostate cancer: Status: Acute Code(s): C61 - Malignant neoplasm of prostate (12) Hypothyroidism: Status: Acute Code(s): E03.9 - Hypothyroidism, unspecified (13) Rheumatoid arthritis: Status: Acute Code(s): M06.9 - Rheumatoid arthritis, unspecified Plan 83 year old male with below past medical history hospitalized for left apical thoracic abscess, status post incision and drainage 01/28/2023, admitted to TCU with debility, here for rehabilitation, strengthening, intravenous antibiotics, prior to discharge home alone. * Debility - PT/OT. * Pain - Tylenol 1000mg q6, Oxycodone 5mg q4h prn pain (4-10). * Bowel - Miralax 17gm daily, senna/colace 1 tablet bid, Dulcolax 10mg pr x 1 prn, MOM 30ml po x 1 prn. * Adult immunization - Administer pneumonia vaccine, covid19 vaccine, flu vaccine as appropriate. * DVT prophylaxis - Not necessary, already on Eliquis. * Hypertension - Metoprolol 25mg bid, Amlodipine 5mg daily. * Atrial fibrillation - Metoprolol 25mg bid, Eliquis 5mg bid. * Left thoracic abscess s/p incision/drainage - Ceftriaxone 2gm iv q24h thru 03/15/2023, consult Dr. Roach. * Hypothyroidism - Levothyroxine 112mcg daily. * GERD - Pantoprazole 40mg daily. * BPH - Tamsulosin 0.4mg daily. Medications at Discharge Home Medications omeprazole 40 mg capsule,delayed release 40 mg PO DAILY acid reflux 10/29/20 acetaminophen 500 mg tablet (Tylenol Extra Strength) 1,000 mg PO Q6H pain 06/05/21 amlodipine 5 mg tablet 5 mg PO DAILY blood pressure 10/06/21 calcium carbonate 600 mg calcium (1,500 mg) tablet (Calcium) 600 mg PO DAILY supplement 01/20/22 alfuzosin 10 mg tablet,extended release 24 hr 10 mg PO DAILY@1000 urinary retention 09/28/22 apixaban 5 mg tablet (Eliquis) 5 mg PO BIDCM blood thinner 02/03/23 levothyroxine 112 mcg tablet 112 mcg PO DAILY thyroid 02/03/23 metoprolol tartrate 25 mg tablet 25 mg PO BID blood pressure/heart 02/03/23 polyethylene glycol 3350 17 gram oral powder packet 17 g PO DAILY constipation 02/03/23 oxycodone 5 mg tablet 5 mg PO Q4H PRN PRN Pain Score 4-10 7 days #42 tabs 02/16/23 peg [id number] 1 %-0.2 %-0.2 % eye drops (Artificial Tears ([id number])) 2 drp EACH EYE Q1H PRN DRY EYES #0 mL 02/16/23 potassium chloride 20 mEq tablet,extended release(part/cryst) (Klor-Con M) 20 meq PO BIDCM 30 days #60 tabs 02/16/23 Hospital Course Operations - (See below.) Procedures None Summary of Care Provided Minutes Spent on Discharge: 35 Hospital Course: 83 year old male with below past medical history hospitalized for left apical thoracic abscess, status post incision and drainage 01/28/2023, admitted to TCU with debility, here for rehabilitation, strengthening, intravenous antibiotics, prior to discharge home alone. Discharge home alone 02/23/2023, IV ATB through [facility]. Physical Exam Const alert General Appearance: cooperative HEENT normocephalic Eyes PERRL and EOMs intact bilaterally Neck supple, no JVD and no carotid bruits Resp normal respiratory effort, normal air movement and clear to auscultation bilaterally Cardio regular rate and regular rhythm Cardio Narrative: Left upper chest drain. GI normal to inspection, nondistended, normoactive bowel sounds, non-tender and non-distended GI Narrative: Right groin drain. Extremity normal capillary refill Extremity Narrative: LUE PICC line. General Extremity: Negative for edema Skin no rashes or lesions noted General Skin Exam: no breakdown Psych affect normal Appearance: appropriate Weight / BMI Weight Weight: 84.623 kg Body Mass Index (BMI) 29.6 ABG / Lab / Microbiology Data Result Diagrams: 02/11/23 05:11 02/11/23 05:11 Microbiology: Microbiology 02/07/23 04:56 Nasal Secretion SARS-CoV-2 Antigen (Rapid) - Final 02/05/23 06:00 Nasal Secretion SARS-CoV-2 Antigen (Rapid) - Final 02/03/23 23:00 Nasal Secretion SARS-CoV-2 Antigen (Rapid) - Final D/C Instructions Discharge Diet: No restrictions Discharge Activity: Return to Normal Activity, May Shower and Use Walker Weight Bearing Status: Weight bearing as tolerated Call your doctor if you observe: Fever of 101 or Higher, Inability to urinate, Inability to have a bowel movement, Shortness of breath, Dizziness, Fainting spells, Swelling in the ankles, Chest pain and Uncontrolled pain Additional Instructions: Discharge home alone 02/23/2023, IV ATB through [facility], [facility]. Please Follow Up With: Dr. Boggs When: As scheduled. Meaningful Use Info Meaningful Use Diagnoses (Choose all that apply): None applicable Discharge Plan Admission Admit Date/Time: 02/03/23 21:10 Primary Reason for Your Visit: Debility. Attending Provider: Kevin Candelaria Chi Primary Care Provider: Anurag Dolan Consulting Providers: Melanie Roach Instructions Additional Instructions / Restrictions: Discharge home alone 02/23/2023, IV ATB through [facility], [facility]. Discharge Orders/Prescriptions Prescriptions: New oxycodone 5 mg Tablet 5 mg PO Q4H PRN PRN (Reason: Pain Score 4-10) 7 Days Qty: 42 0RF Artificial Tears(ti-bdvz-sjsy) 1-0.2-0.2 % Drops 2 drp EACH EYE Q1H PRN (Reason: DRY EYES) Qty: 0 0RF potassium chloride [Klor-Con M20] 20 mEq Tablet,Er Particles/Crystals 20 meq PO BIDCM 30 Days Qty: 60 0RF Continued omeprazole 40 mg capsule,delayed release(DR/EC) 40 mg PO DAILY acetaminophen [Tylenol Extra Strength] 500 mg tablet 1,000 mg PO Q6H amlodipine 5 mg tablet 5 mg PO DAILY calcium carbonate [Calcium 600] 600 mg calcium (1,500 mg) tablet 600 mg PO DAILY alfuzosin 10 mg tablet extended release 24 hr 10 mg PO DAILY@1000 Rx Instructions: administer after the same meal each day polyethylene glycol 3350 17 gram Powder In Packet 17 g PO DAILY levothyroxine 112 mcg tablet 112 mcg PO DAILY metoprolol tartrate 25 mg tablet 25 mg PO BID Eliquis 5 mg tablet 5 mg PO BIDCM Discontinued acetylcysteine 600 mg capsule 600 mg PO BID Label Comments: TAKE 1 CAPSULE BY MOUTH TWICE DAILY cholecalciferol (vitamin D3) 25 mcg (1,000 unit) capsule 25 mcg PO DAILY multivitamin with minerals 1 EACH tablet 1 ea PO BREAKFAST glucosamine sulfate [Glucosamine] 500 mg tablet 1,000 mg PO DAILY zinc 50 mg Tablet 50 mg PO DAILY oxycodone 5 mg Tablet 5 mg PO Q4H PRN (Reason: Pain) ceftriaxone 2 gram Piggyback 2 g IV Q24H Rx Instructions: stop date 03/15/23 Referrals / Follow Up: Anurag Dolan MD [Primary Care Provider] - (Please make appt luis after DC as will not follow [facility] orders until pt is seen in office - ARABELLA Mejia ) Disposition Disposition (needs filled in before D/C Order can be placed): Home Health Service 02/16/231938 <Electronically signed by Kevin Candelaria MD> Cosigner Signature (if applicable): CC: Dr. Anurag Dolan MD; Dr. Kevin Candelaria MD~ Signed [facility] Work Phone: [phone] Candelaria [facility] February 08, 2023 1:03pm Note Date/Time February 08, 2023 11: 51am [facility] Medical Records Department [address] [place] [id number] Progress Note - Pharmacy 02/08/23 1135 MR#: [id number] Acct: [id number] Name: EMPERATRIZ EPPS Rep #:[id number] : 1940 83 From: Norma Caraballo PCP: Dr. Anurag Dolan MD Status:ADM IN Location: TCU [facility]- TCU RX Drug Regimen Review Subjective: TCU Admission. 83 YOM presented to the ER with left shoulder/arm/neck pain. Hospitalized for left apical thoracic abscess, status post incision and drainage 01/28/2023. Admitted to TCU with debility for IV antibiotics, strengthening and rehabilitation. Objective: Allergies No Known Allergies Allergy (Verified 01/26/23 13:48) Current Medications Generic Name Dose Route Start Last Admin Trade Name Freq PRN Reason Stop Dose Admin Acetaminophen 1,000 mg 02/03/23 22:15 02/08/23 06:02 Acetaminophen 500 Mg Tablet PO Not Given Q6 [facility] Amlodipine Besylate 5 mg 02/04/23 06:00 02/08/23 05:58 Amlodipine 5 Mg Tablet PO 5 mg DAILY SAAD Administration Apixaban 5 mg 02/04/23 08:00 02/08/23 09:37 Apixaban 5 Mg Tablet PO 5 mg BIDCM [facility] Administration Bisacodyl 10 mg 02/03/23 22:43 Bisacodyl 10 Mg Suppository RC X1 PRN Constipation Calamine/Phenol 1 applic 02/04/23 10:00 02/08/23 09:45 Menthol/Lanolin/Calamine/Znox 113 Gm Tube TOPICAL 02/11/23 10:01 1 applic 1000,2200 [facility] Administration Protocol Heparin Sodium (Beef Lung) 50 units 02/03/23 22:20 Heparin Pf Lock 10 Units/Ml 50 Units/5 Ml Syringe IV UD PRN PICC Line Heparin Flush Sodium Chloride 250 mls @ 15 mls/hr 02/03/23 22:20 02/08/23 09:42 IV 15 mls/hr .[id number] PRN Administration Saline Flush Sodium Chloride 250 mls @ 15 mls/hr 02/03/23 22:20 IV .[id number] PRN Additional IVPB Infusion Ceftriaxone Sodium 2 gm/ 50 mls @ 100 mls/hr 02/04/23 10:00 02/08/23 11:05 Sodium Chloride IV Infused Q24 SAAD Infusion Levothyroxine Sodium 112 mcg 02/04/23 06:00 02/08/23 05:59 Levothyroxine 112 Mcg Tablet PO 112 mcg DAILY SAAD Administration Magnesium Hydroxide 30 ml 02/03/23 22:43 Magnesium Hydroxide 30 Ml Udc PO X1 PRN Constipation Metoprolol Tartrate 25 mg 02/04/23 06:00 02/08/23 05:58 Metoprolol Tartrate 25 Mg Tablet PO 25 mg BID SAAD Administration Nystatin 1 applic 02/04/23 10:00 02/08/23 10:30 Nystatin Powder 15gm Bottle TOPICAL 02/11/23 10:01 1 applic 1000,2200 [facility] Administration Protocol Oxycodone HCl 5 mg 02/03/23 22:07 02/08/23 10:29 Oxycodone 5 Mg Tablet PO 5 mg Q4H PRN PRN Administration Pain Score 4-10 Pantoprazole Sodium 40 mg 02/04/23 06:00 02/08/23 05:58 Pantoprazole Sodium 40 Mg Tablet PO 40 mg DAILY SAAD Administration Polyethylene Glycol 17 gm 02/04/23 06:00 02/08/23 05:54 Polyethylene Glycol 3350 17 Gm Packet PO Not Given DAILY SAAD Potassium Chloride 20 meq 02/08/23 08:00 02/08/23 09:37 Potassium Chloride Oral Tablet 20 Meq PO 20 meq BIDCM SAAD Administration Senna/Docusate Sodium 1 tablet 02/03/23 22:45 02/08/23 05:58 Senna/Docusate Sodium 1 Tablet PO 1 tablet BID SAAD Administration Sodium Chloride 10 - 40 ml 02/03/23 22:20 02/08/23 09:42 0.9% Saline Lock 10 Ml Syringe IV 30 ml UD PRN Administration Open End PICC Flush Sodium Chloride 10 - 40 ml 02/03/23 22:20 0.9 % Nacl (Sterile) Posiflush 10 Ml IV UD PRN Port access or dressing change Tamsulosin HCl 0.4 mg 02/04/23 17:30 02/07/23 18:32 Tamsulosin Hcl 0.4 Mg Capsule PO 0.4 mg DAILY@1730 SAAD Administration Tuberculin PPD 0.1 ml 02/11/23 10:00 Tuberculin,Purif.Prot.Deriv. 50 Tu/Ml Vial ID 02/11/23 10:01 X1 ONE Problem List (Last Reviewed 02/04/23 @ 10:[address] Melanie Roach MD) Rheumatoid arthritis (Acute) Hypothyroidism (Acute) Prostate cancer (Acute) Macular degeneration (Acute) BPH (benign prostatic hyperplasia) (Acute) Atrial fibrillation (Acute) Hypertension (Chronic) GERD (gastroesophageal reflux disease) (Acute) Allergic rhinitis (Acute) Metastatic melanoma (Acute) Cellulitis of chest wall (Acute) Thoracic abscess (Acute) Debility (Acute) Vital Signs Temp Pulse Resp BP Pulse Ox O2 Del Method 98.2 F 85 16 112/65 98 Room Air 02/07/23 23:43 02/08/23 10:00 02/08/23 10:00 02/08/23 05:58 02/08/23 10:00 02/08/23 10:00 Oxygen Delivery Method Room Air Weight: 85.7 kg Body Mass Index (BMI) 29.9 Sodium 143 mmol/L (136-145) 02/08/23 05:20 Potassium 3.3 mmol/L (3.5-5.1) L 02/08/23 05:20 Chloride 108 mmol/L (98-107) H 02/08/23 05:20 Carbon Dioxide 30.0 mmol/L (21.0-32.0) 02/08/23 05:20 Anion Gap 5 (5-15) 02/08/23 05:20 BUN 27 mg/dL (7-18) H 02/08/23 05:20 Creatinine 0.89 mg/dL (0.70-1.30) 02/08/23 05:20 Est GFR (MDRD) Af Amer 105 mL/min (>60) 02/08/23 05:20 Est GFR (MDRD) Non-Af 87 mL/min (>60) 02/08/23 05:20 BUN/Creatinine Ratio 30.3 RATIO (10-20) H 02/08/23 05:20 Glucose 92 mg/dL (74-106) 02/08/23 05:20 Assessment/Plan: 1. Pain: acetaminophen 1000mg PO Q6 and oxycodone 5mg PO Q4H PRN pain 4-10. Resident has had 9 doses of oxycodone for pain scores of 4-7 in the chest/shoulder/arm. Please continue to monitor for increased pain, PRN usage, constipation and respiratory depression. 2. Bowel: Miralax 17gm PO daily, senna/docusate 1T PO BID, bisacodyl 10mg RC x1 PRN constipation and MOM 30mL PO x1 PRN constipation. Resident has not had any PRN doses. Please consider changing Miralax from scheduled to PRN as the resident has refused 4 out of the last 5 doses. Thanks. Please continue to monitor for constipation (last documented bowel movement 02/06) and PRN usage. 3. Left thoracic abscess s/p I&D: ceftriaxone 2gm IV daily thru 03/15/23. ID consulted. Please continue to monitor for S/S of infection and diarrhea. 4. Hypertension/atrial fibrillation: metoprolol tartrate 25mg PO BID, [id number] PO daily and apixaban 5mg PO BID. Please continue to monitor for S/S of bleeding, hemoglobin (last 10g/dL), BP (last 112/65), and HR (last 85). 5. Hypothyroidism: levothyroxine 112mcg PO daily. Please continue to monitor TSH(last 10/14/22) and S/S of hypo/hyperthyroidism. 6. GERD: pantoprazole 40mg PO daily. Please continue to monitor for S/S of GERD and diarrhea (BEERs criteria due to increased risk of C. diff infections). 7. BPH: tamsulosin 0.4mg PO daily. Please continue to monitor for S/S of BPH andBP. 8. Hypokalemia (per potassium 3.3mmol/L): potassium chloride 20mEq PO BID. Please continue to monitor potassium. Assessment/Plan for indications treated with psychotropic medications: None Medical chart and medication regimen reviewed. The following medication irregularities or issues were identified: 1. Please consider changing Miralax from scheduled to PRN as the resident has refused 4 out of the last 5 doses. Thanks. Date of Note:: 02/08/23 02/08/23 1151 <Electronically signed by Norma Caraballo > Norma Caraballo Cosigner Signature (if applicable): 02/08/23 1303 <Electronically signed by Kevin Candelaria MD> CC: ~ Signed [facility] Work Phone: [phone]) 522-550903-09-[address] Roach [facility] February 04, 2023 10:47am Note Date/Time February 04, 2023 10:4 2am [facility] Medical Records Department [address] [place] [id number] Consultation - Infectious Dx 02/04/23 1040 MR#: [id number] Acct: [id number] Name: EMPERATRIZ EPPS Raeann Rep #:[id number] : 1940 83 From: Melanie magdaleno MD PCP: Dr. Anurag Dolan MD Status:ADM IN Location: [place] [address] Assessment & Plan Assessment/Plan (1) Metastatic melanoma: (2) Thoracic abscess: PLAN: With SC joint involvement. Now s/p OR 01/28/23 at . Reviewed records. Cxs with GBS. On ceftriaxone with stop date 03/12/23. Will need repeat CT chestprior to stopping abx. Will follow, thank you HPI Consult Data Date of Consult: 02/04/23 HPI Narrative Reason for Consultation: empyema HPI Narrative: EMPERATRIZ EPPS, is a 83 M with h/o metastatic melanoma on keytruda, presented 01/26 to [facility] ED with 1-2 weeks progressive L upper chest pain, swelling, redness. No inciting events. No issues with R chest port. Had some fever and chills. Some associated LUE weakness. C showed large abscess, empyema. Transferred to . Given vanc/zosyn, taken to IR drain placement 01/27 then OR 01/28 for I&D of abscess and sternum/clavicle. Cxs with GBS, discharge with picc on ceftriaxone for planned 6 week course. Drain still in place in chest. Feeling ok, no n/v/d, no fever. Full ROS performed and neg except as noted above. [facility] Medical History Alcohol use Arthritis Melendrez's palsy Benign prostate hyperplasia Cancer Cough Creatinine elevation CRF (chronic renal failure) Drug rash Encounter for immunotherapy Essential hypertension Gastric reflux GERD (gastroesophageal reflux disease) Hemorrhoids History of brachytherapy Hx of malignant neoplasm of prostate Hypercholesterolemia Hypertension Hypokalemia Hypothyroidism (acquired) Hypothyroidism (acquired) Injury of back Malignant melanoma of right heel Mitral valve insufficiency Non-smoker Open wound of right heel Osteoarthritis of left knee PAF (paroxysmal atrial fibrillation) Personal history of colonic polyps PVC (premature ventricular contraction) Regional lymph node metastasis present Rheumatoid arthritis Sleep disorder Squamous cell carcinoma of skin Wears glasses Home Medications omeprazole 40 mg capsule,delayed release 40 mg PO DAILY acid reflux 10/29/20 [History Last Taken 06/19/21 08:00 40 MG] multivitamin with minerals 1 ea PO BREAKFAST supplement 10/31/20 [History Last Taken Unknown] acetaminophen 500 mg tablet (Tylenol Extra Strength) 1,000 mg PO Q6H pain 06/05/21 [History Last Taken Unknown] amlodipine 5 mg tablet 5 mg PO DAILY blood pressure 10/06/21 [History Last Taken Unknown] calcium carbonate 600 mg calcium (1,500 mg) tablet (Calcium) 600 mg PO DAILY supplement 01/20/22 [History Last Taken Unknown] glucosamine sulfate 500 mg tablet (Glucosamine) 1,000 mg PO DAILY joint supplement 03/13/22 [History Last Taken Unknown] alfuzosin 10 mg tablet,extended release 24 hr 10 mg PO DAILY@1000 urinary retention 09/28/22 [History Last Taken Unknown] acetylcysteine 600 mg capsule 600 mg PO BID mucus 10/13/22 [History Last Taken Unknown] cholecalciferol (vitamin D3) 25 mcg (1,000 unit) capsule 25 mcg PO DAILY /15/22 [History Last Taken Unknown] apixaban 5 mg tablet (Eliquis) 5 mg PO BIDCM blood thinner 02/03/23 [History Last Taken Unknown] ceftriaxone 2 gram intravenous piggyback 2 g IV Q24H antibiotic 02/03/23 [History Last Taken 02/03/23 14:00] levothyroxine 112 mcg tablet 112 mcg PO DAILY thyroid 02/03/23 [History Last Taken Unknown] metoprolol tartrate 25 mg tablet 25 mg PO BID blood pressure/heart 02/03/23 [History Last Taken Unknown] oxycodone 5 mg tablet 5 mg PO Q4H PRN Pain 02/03/23 [History Last Taken Unknown] polyethylene glycol 3350 17 gram oral powder packet 17 g PO DAILY constipation 02/03/23 [History Last Taken Unknown] zinc 50 mg tablet 50 mg PO DAILY suppplement 02/03/23 [History Last Taken Unknown] Allergy/AdvReac Type Severity Reaction Status Date / Time No Known Allergies Allergy Verified 01/26/23 13:48 Family History Brother Prostate cancer CVA (cerebral vascular accident) Brother Leukemia Father Hypertension Myocardial infarction Mother CHF (congestive heart failure) Surgical History (Updated 02/03/23 @ 22:[address] Kevin Candelaria MD) History of incision and drainage History of root canal procedure Hx of colonoscopy Hx of discectomy Hx of foot operation Hx of hemorrhoidectomy Hx of rotator cuff surgery Social History (Updated 02/03/23 @ 22:[address] Kevin Candelaria MD) household members: none Smoking Status: Former smoker second hand exposure: No alcohol intake: current alcohol intake frequency: a few times a month details: OCCASIONALLY substance use type: does not use well-balanced diet: about half the time caffeine: Yes Type: coffee Number of servings: 1 eating out: 1-3 times/week what type of physical activity do you participate in: bicycling frequency: 3-4 times per week duration: 15-30 minutes/day melany/baptism: Zoroastrianism seatbelt use: always do you feel safe at home: Yes Physical Exam Const alert, oriented x3 and no apparent distress General Appearance: cooperative HEENT normocephalic and head/scalp atraumatic Eyes PERRL and EOMs intact bilaterally Neck supple and No nodes Resp Auscultation: wheezes Cardio regular rate and regular rhythm GI soft to palpation, non-tender and non-distended Extremity General Extremity: Negative for edema Skin no rashes or lesions noted Skin Narrative: L chest incision healing well. R chest port and LUE picc, no inflammation Neuro CN's II-XII intact bilaterally Lab / Micro Data Attestation: I reviewed the patient's lab results. Result Diagrams: 02/04/23 05:11 02/04/23 05:11 Labs: Laboratory Results - last 24 hr 02/04/23 05:11: WBC 5.8, RBC 3.11 L, Hgb 10.0 L, Hct 30.6 L, MCV 98.4 H, MCH 32.2 H, MCHC 32.7, RDW Std Deviation 49.3 H, RDW Coeff of Halley 14.0, Plt Count 646 H, MPV 8.3, Immature Gran % (Auto) 0.900, Neut % (Auto) 55.2, Lymph % (Auto)24.8, Nye % (Auto) 10.1 H, Eos % (Auto) 8.3 H, Baso % (Auto) 0.7, Absolute Neuts (auto) 3.2, Absolute Lymphs (auto) 1.43, Nucleated RBC % 0 02/04/23 05:11: Sodium 140, Potassium 3.4 L, Chloride 105, Carbon Dioxide 30.0, Anion Gap 5, BUN 12, Creatinine 1.11, Estim Creat Clear Calc 46.30, Est GFR (MDRD) Af Amer 82, Est GFR (MDRD) Non-Af 67, BUN/Creatinine Ratio 10.8, Glucose 94, Calcium 9.0 Micro: Microbiology 02/03/23 23:00 Nasal Secretion SARS-CoV-2 Antigen (Rapid) - Final 02/04/23 1047 <Electronically signed by Melanie Roach MD> Cosigner Signature (if applicable): CC: Dr. Anurag Dolan MD; Dr. Melanie Roach MD~ Signed [facility] Work Phone: [phone]) [phone] History and physical note Author Dr. Candelaria [facility] February 04, 2023 7:49am Note Date/Time February 03, 2023 10:2 5pm [facility] Medical Records Department [address] [place] [address] History & Physical Exam 02/03/232216 MR#: [id number] Acct: [id number] Name: EMPERATRIZ EPPS Rep #:[id number] : 1940 83 From: Kevin Candelaria MD PCP: Dr. Anurag Dolan MD Status:ADM IN Location: [place] [address] HPI - General General Date of Admission: 02/03/23 Date of Service: 02/04/23 Chief Complaint: Here for rehabilitation, intravenous antibiotics. HPI Narrative 01/26/2023 EMPERATRIZ EPPS, is a 83 Male [facility] with left chest pain, left shoulder pain, left arm pain, left neck pain. WBC 14.9. CT chest showed large left intrathoracic abscess. Transfer to [facility]. 01/26/2023 Admit to [facility]. Large extra pleural apical abscess in communication with left sternoclavicular joint. Cellulitis overlying abscess. 01/27/2023 IR drainage of abscess, drain in place with purulent output, culture growing group B strep. 01/28/2023 1. Incision and drainage of left sternoclavicular abscess. 2. Debridement of left clavicle, left sternum. 3. Wound VAC placed. 01/30/2023 Wound debridement, closure anterior chest. FARNAZ in place draining cloudy serosanguinous fluid. 02/01/2023 PICC line placed left upper extremity. Plan 6 weeks of IV antibiotics. With FARNAZ drain in place. 02/03/2023 Admit to TCU with debility, here for rehabilitation, strengthening, intravenous antibiotics, prior to discharge home alone. [facility] Medical History (Updated 02/04/23 @ 00:01 by Background Daemon) Alcohol use Arthritis Melendrez's palsy Benign prostate hyperplasia Cancer Cough Creatinine elevation CRF (chronic renal failure) Drug rash Encounter for immunotherapy Essential hypertension Gastric reflux GERD (gastroesophageal reflux disease) Hemorrhoids History of brachytherapy Hx of malignant neoplasm of prostate Hypercholesterolemia Hypertension Hypokalemia Hypothyroidism (acquired) Hypothyroidism (acquired) Injury of back Malignant melanoma of right heel Mitral valve insufficiency Non-smoker Open wound of right heel Osteoarthritis of left knee PAF (paroxysmal atrial fibrillation) Personal history of colonic polyps PVC (premature ventricular contraction) Regional lymph node metastasis present Rheumatoid arthritis Sleep disorder Squamous cell carcinoma of skin Wears glasses Home Medications omeprazole 40 mg capsule,delayed release 40 mg PO DAILY acid reflux 10/29/20 [History Last Taken 06/19/21 08:00 40 MG] multivitamin with minerals 1 ea PO BREAKFAST supplement 10/31/20 [History Last Taken Unknown] acetaminophen 500 mg tablet (Tylenol Extra Strength) 1,000 mg PO Q6H pain 06/05/21 [History Last Taken Unknown] amlodipine 5 mg tablet 5 mg PO DAILY blood pressure 10/06/21 [History Last Taken Unknown] calcium carbonate 600 mg calcium (1,500 mg) tablet (Calcium) 600 mg PO DAILY supplement 01/20/22 [History Last Taken Unknown] glucosamine sulfate 500 mg tablet (Glucosamine) 1,000 mg PO DAILY joint supplement 03/13/22 [History Last Taken Unknown] alfuzosin 10 mg tablet,extended release 24 hr 10 mg PO DAILY@1000 urinary retention 09/28/22 [History Last Taken Unknown] acetylcysteine 600 mg capsule 600 mg PO BID mucus 10/13/22 [History Last Taken Unknown] cholecalciferol (vitamin D3) 25 mcg (1,000 unit) capsule 25 mcg PO DAILY hmkulyi80/15/22 [History Last Taken Unknown] apixaban 5 mg tablet (Eliquis) 5 mg PO BIDCM blood thinner 02/03/23 [History Last Taken Unknown] ceftriaxone 2 gram intravenous piggyback 2 g IV Q24H antibiotic 02/03/23 [History Last Taken 02/03/23 14:00] levothyroxine 112 mcg tablet 112 mcg PO DAILY thyroid 02/03/23 [History Last Taken Unknown] metoprolol tartrate 25 mg tablet 25 mg PO BID blood pressure/heart 02/03/23 [History Last Taken Unknown] oxycodone 5 mg tablet 5 mg PO Q4H PRN Pain 02/03/23 [History Last Taken Unknown] polyethylene glycol 3350 17 gram oral powder packet 17 g PO DAILY constipation 02/03/23 [History Last Taken Unknown] zinc 50 mg tablet 50 mg PO DAILY suppplement 02/03/23 [History Last Taken Unknown] Allergy/AdvReac Type Severity Reaction Status Date / Time No Known Allergies Allergy Verified 01/26/23 13:48 Family History Brother Prostate cancer CVA (cerebral vascular accident) Brother Leukemia Father Hypertension Myocardial infarction Mother CHF (congestive heart failure) Surgical History (Updated 02/03/23 @ 22:[address] Kevin Candelaria MD) History of incision and drainage History of root canal procedure Hx of colonoscopy Hx of discectomy Hx of foot operation Hx of hemorrhoidectomy Hx of rotator cuff surgery Social History (Updated 02/03/23 @ 22:[address] Kevin Candelaria MD) household members: none Smoking Status: Former smoker second hand exposure: No alcohol intake: current alcohol intake frequency: a few times a month details: OCCASIONALLY substance use type: does not use well-balanced diet: about half the time caffeine: Yes Type: coffee Number of servings: 1 eating out: 1-3 times/week what type of physical activity do you participate in: bicycling frequency: 3-4 times per week duration: 15-30 minutes/day melany/baptism: Zoroastrianism seatbelt use: always do you feel safe at home: Yes ROS Constitutional Constitutional: Denies chills, fever(s) or weight gain ENT HEENT: Denies headache(s), nasal congestion or nasal discharge Cardiovascular Cardiovascular: Denies chest pain or palpitations Respiratory/Chest Respiratory/Chest: Denies cough, excessive phlegm production or shortness of breath with exertion Gastrointestinal Gastrointestinal: Denies abdominal pain, nausea or vomiting Genitourinary Genitourinary: Denies dysuria Musculoskeletal Musculoskeletal: Denies joint pain or joint swelling Integumentary Integumentary: Denies rash or wounds Neurologic Neurologic: Denies focal weakness, numbness or tingling Psychiatric Psychiatric: Denies anxiety, auditory hallucinations, depression, homicidal ideation or suicidal ideation Vital Signs Vital Signs Vital Signs: Weight Weight: 85.7 kg Body Mass Index (BMI) 29.9 Physical Exam Const alert General Appearance: cooperative HEENT normocephalic Eyes PERRL and EOMs intact bilaterally Neck supple, no JVD and no carotid bruits Chest Chest Narrative: Left upper chest clean, dry, sutures intact. FARNAZ drain with serosanguinous fluid. Resp normal respiratory effort, normal air movement and clear to auscultation bilaterally Cardio regular rate and regular rhythm GI normal to inspection, nondistended, normoactive bowel sounds, non-tender and non-distended Extremity normal capillary refill Extremity Narrative: Left upper extremity PICC line. General Extremity: Negative for edema Skin no rashes or lesions noted General Skin Exam: no breakdown Psych affect normal Appearance: appropriate Results Lab / Micro Data Result Diagrams: 02/04/23 05:11 02/04/23 05:11 Assessment & Plan Assessment/Plan (1) Debility: (2) Thoracic abscess: (3) Cellulitis of chest wall: (4) Metastatic melanoma: (5) Allergic rhinitis: (6) GERD (gastroesophageal reflux disease): (7) Hypertension: (8) Atrial fibrillation: (9) BPH (benign prostatic hyperplasia): (10) Macular degeneration: (11) Prostate cancer: (12) Hypothyroidism: (13) Rheumatoid arthritis: PLAN: Plan 83 year old male with below past medical history hospitalized for left apical thoracic abscess, status post incision and drainage 01/28/2023, admitted to TCU with debility, here for rehabilitation, strengthening, intravenous antibiotics, prior to discharge home alone. * Debility - PT/OT. * Pain - Tylenol 1000mg q6, Oxycodone 5mg q4h prn pain (4-10). * Bowel - Miralax 17gm daily, senna/colace 1 tablet bid, Dulcolax 10mg pr x 1 prn, MOM 30ml po x 1 prn. * Adult immunization - Administer pneumonia vaccine, covid19 vaccine, flu vaccine as appropriate. * DVT prophylaxis - Not necessary, already on Eliquis. * Hypertension - Metoprolol 25mg bid, Amlodipine 5mg daily. * Atrial fibrillation - Metoprolol 25mg bid, Eliquis 5mg bid. * Left thoracic abscess s/p incision/drainage - Ceftriaxone 2gm iv q24h thru 03/15/2023, consult Dr. Roach. * Hypothyroidism - Levothyroxine 112mcg daily. * GERD - Pantoprazole 40mg daily. * BPH - Tamsulosin 0.4mg daily. 02/04/23 0749 <Electronically signed by Kevin Candelaria MD> Cosigner Signature (if applicable): CC: Dr. Anurag Dolan MD; Dr. Kevin Candelaria MD~ Signed [facility] Work Phone: [phone] Hospital Discharge instructions* Vascular Access Port: top entry, single lumenVascular Access Port: right infraclavicular fossa * Labs 1 (Modify Template):Lab Test(s): CBC with dif, Comprehensive Metabolic Panel, CRP, ESRDate To Be Drawn: weeklyFax Results To: [phone], Attn Dr Nguyen * Line Care (Gold Form or Patient Managed):Line Care for Adults. Access Type: PICC. Site: Left. FLUSHINSTRUCTIONS. Heparin flush 10 unit/mL Injectable 5 mL intravenous every 8 hours and as needed- viaPICC. Sodium Chloride 0.9% Injectable 10 mL Intravenous [...] line, intermittently every 4 hours for 24 hourspost insertion and as needed. Notify MD of [...] of central venous catheter. Call Physician if presenceof redness, swelling, drainage or purulence at insertion site. May draw labs from line. * Drain/Tube Care 1:Type: ([facility])Site: groinSuction: continuous, selfCleanse With: soap and waterDress With: 2x2 gauze dressingOther Instructions: To empty the drain, open the cap, tip into cup and squeeze to empty. Squeeze drain flat then replace the cap. Please empty the drain and recordits output _3_ times a day and bring these numbers to your follow up appointment. The drain output should decrease and the color of the drainage should become lead generator (red to pink to yellow). This drain [...] output, or redness/drainage around insertion site. * Drain/Tube Care 2:Type: ([facility])Site: left anterior chestSuction: continuousCleanse With:soap and waterDress With: 2x2 gauze dressingOther Instructions: To empty the drain, open the cap, tip into cup and squeeze to empty. Squeeze drain flat then replace the cap. Please empty the drain and record its output _3_ times a day and bring these numbers to your follow up appointment. The drainoutput should decrease and the color of the drainage should become lead generator (red to pink to yellow).This drain is sutured into place. Keep the area around the drain clean and dry. You may use mild soap and water to cleanse around the drain. It is ok to shower; do not soak in a tub. Change the gauzearound the drain as needed. Call the office if you notice drastic changes in drain output, bloody drain output, or redness/drainage around insertion site. * Activity:- Continue increasing activity and using incentive spirometer, cough and deep breathe. - No pushing, pulling or lifting objects over 15 lbs for 3 weeks. - No flying for 3 weeks. - No joggingor heavy aerobics for 3 weeks. - No swimming or bath tub until incisions well healed, 1 week. - Notify Thoracic Surgery of redness, increased drainage, bleeding or other problems. - Take Roxicet 5 to10 mL every 4-6 hours as needed for pain. - No driving while on pain medications (narcotics). * Wound Care:- Wound Care: Cleanse incision site with soap and water daily. No dressing required; leave open to air. Do not use lotions, creams or tub soaks. - May shower 48 hours after last chest tuberemoval. - Surgical Incision Care: Maintain occlusive dressing [...] needed. Monitor for signs of oozing and infection,report any symptoms to Thoracic surgery. * Patient Instructions:- Go to Emergency room for severe chest pain or shortness of breath. - Elevatehead of bed at least 30 degrees. - If it feels like food is catching in your throat, call the office. * Activity:- Activity as tolerated. - Continue increasing activity and using incentive spirometer, cough and deep breathe. - No flying for 3 weeks. - No jogging or heavy aerobics for 3 weeks. - No driving while on pain medications (narcotics). - No pushing, pulling or lifting objects over 15 lbs for 3 weeks. * Wound Care:- Maintain occlusive dressing intact on chest tube sites for 48 hours after last chest tube removal, then remove. Apply dry band-aid if any oozing. - May shower 48 hours after last chest tube removal. - No swimming or bath tub until incisions well healed, 1 week. - Cleanse incisions withsoap and water daily. No dressing required; leave open to air. Do not use lotions, creams or tub soaks. - Notify thoracic surgery of redness, increased drainage, bleeding or other problems. * Patient Instructions:- Return to emergency room for severe chest pain or shortness of breath. * Follow-Up - Primary Care Physician:Physician/Dept/Service: Primary Care PhysicianCall to Schedule in: 1 week * Follow-Up 2:Physician/Dept/Service: Dr. Boggs (thoracic surgery)Scheduled Date/Time: 25-Feb-2023 10:00[facility] 1st floorPhone Number: [phone]: chest x-ray [id number] followed by appointment at 1000, call office with questions please * Care Recommendation:I recommend that INPATIENT care is required at: SkilledEstimated Stay: 30 - 180daysPrognosis: GoodRehab Potential/Function: Maintain * Therapy Orders:Occupational Therapy Orders: Eval and Treat ([facility])Physical Therapy Orders: Eval and Treat ([facility]) * Provider Follow Up:Physician To Follow at Skilled/Rehab: Attending Physician at [facility]/Rehab [facility]03-08-2023 NoteSend Summary: Discharge Summary Providers: Provider RoleProvider Name ReferringCorrect Info, Needed María Posada [facility] Service - Surg Onc Nurse PractitionerHorace Mcintosh Eric A Note Recipients: Correct Ella, MD Bethany Franco Eric A, MD - [phone] [] Discharge: Summary: Admission Date: .27-Jan-2023 01:57:00 [...] Condition at Discharge: Satisfactory Disposition at Discharge: Custodial Facility (SNF) Vital Signs: T PRBPMAPSpO2 [id number]% Date/Time02/03 9:173 9: 9: 9: 9: 9:17 Range(35.9C - 37C ) (67 - 90 ) (16 - 18 ) (78 - 147 )/ (39 - 86 ) (64 - 100 ) (94% - 100% ) Highest temp of 37 C was recorded at 02/02 1:15 Date: Weight/Scale Type:Height: 01-Feb-2023 02:4988.6 kg [...] To Be Drawn: weekly Fax Results To: [phone], Attn Dr Nguyen Wound Care: Wound Care: [...] bleeding or other problem (more content not included)...[facility] 01-30-2023 NotePost Operative Note: PreOp Diagnosis: Sternoclavicular wound Post-Procedure Diagnosis: Sternoclavicular wound Procedure: 1. wound debridement 2. wound closure Surgeon: Dr. Boggs Resident/Fellow/Other A R Specialist: Beltran Loya PGY2 Anesthesia: General Estimated Blood Loss [...] edges of the patient's clavicle were somewhat sharp, and I did perform a minimalistic debridement [...] his abscess cavity and tunneled a 24 Citizen [place] drain into the wound and left [...] present for the entire procedure Electronic Signatures: Beltran Loya (Resident)) (Signed 30-Jan-2023 12:02) Authored: Post Operative Note, Note Completion María Boggs) (Signed 30-Jan-2023 12:09) Authored: Post Operative Note, Note Completion Co-Signer: Post Operative Note, Note Completion Last Updated: 30-Jan-2023 12:09 by María Boggs)[facility]03-04-2023 NoteHistory & Physical Reviewed: I have reviewed the History and Physical [...] the note. I personally evaluated the patient [id number] Electronic Signatures: Beltran Loya (Resident)) (Signed 30-Jan-2023 06:44) Authored: History & Physical Reviewed, ERAS, Consent, Note Completion María Boggs) (Signed 01-Feb-2023 15:25) Authored: Note Completion Co-Signer: History & Physical Reviewed, ERAS, Consent, Note Completion Last Updated: 01-Feb-2023 15:25 by María Boggs)[facility]03-02-2023 NotePROCEDURE DETAILS Preoperative Diagnosis: sternoclavicular abscess Postoperative Diagnosis: sternoclavicular abscess Surgeon: Benito Resident/Fellow/Other A R Specialist: Jacquie PGY-2 Procedure: 1. incision and drainage [...] entire procedure I am a:Resident/Fellow Electronic Signatures: Stanislaw Caro (Resident)) (Signed 28-Jan-2023 16:55) Authored: Post-Operative Note, Chart Review, Note Completion María Boggs) (Signed 28-Jan-2023 17:56) Authored: Post-Operative Note, Chart Review, Note Completion Co-Signer: Post-Operative Note, Chart Review, Note Completion Last Updated: 28-Jan-2023 17:56 by María Boggs)[facility]03-02-2023 NotePreop Checklist: Preop Checklist: Procedure Typewashout Temperature C36.6 degrees C Temperature F97.8 degrees F Heart Rate75 beats per minute Respiratory Rate16 breath per minute Blood Pressure Vnkirirq784 mm/Hg Blood Pressure Ampfiiffe11 mm/Hg COVID 19 Results in Last 7 daysNot Detected NPOyes Last Food Nfaisv03-Nvr-0084 00:00 Last Clear Fluid Pbftym38-Wtl-4006 09:30 Beta-ryder Last Dose Date/Kiux95-Sqv-3610 09:49 ID Band On Patientpatient ID (name) Consent Signedpending Glucose Oszptu24 Type and Screen Resultedyes SCD's Appliedno FANTASMA [...] Checklist Last Updated: 28-Jan-2023 13:42 by Dona Romero)[facility]03-02-2023 NoteHistory & Physical Reviewed: I have reviewed the History and Physical [...] the note. I personally evaluated the patient [id number] Electronic Signatures: Stanislaw Caro (Resident)) (Signed 28-Jan-2023 11:54) Authored: History & Physical Reviewed, ERAS, Consent, Note Completion María Boggs) (Signed 28-Jan-2023 17:50) Authored: Note Completion Co-Signer: History & Physical Reviewed, ERAS, Consent, Note Completion Last Updated: 28-Jan-2023 17:50 by María Boggs)[facility]03-01-2023 NoteClinical Note - Pharmacy v2: Education: Document TopicMedication Education MedicationMeds to Beds: Patient declines Meds to Beds service at discharge. Sources used to confirm home medication list: Patient interview/ [facility] p:[phone]/ [facility] Additional comments: NONE Medication reconciliation complete Please reach out via Ezuzao for questions or if no response call [phone] or vocera [facility] Donna Acuna, DenitaD, Meds Meds Ambulatory [facility] Is This Intervention Medication Reconciliation Relatedyes Time Bjfzxuhx37 - 60 minutes Additional NotesDrug Name: omeprazole [...] 27-Jan-2023 13:26) Authored: Education, Allergy Felicitas Madrid ([facility]) (Signed 28-Jan-2023 14:56) Co-Signer: Education, Allergy Last Updated: 28-Jan-2023 14:56 by Felicitas Madrid ([facility]03-01-2023 NotePre-procedure Verification and Time Out: Pre-Procedure Verification and Time Out: Procedure Locationprocedure area HUDDLE - Pre-procedure Verificationcompleted TIME OUT - Final Verificationcompleted immediately prior to procedure start DEBRIEFcompleted General Information: Anesthesia Critical Care: Non-Anesthesia Date/Time of Procedure: 27-Jan-2023 12:30 Post-Procedure Diagnosis: Left Lung Abscess/Pleural Collection Procedure Name: Drain Placement Findings: see radiology report Procedure performed by: Dr. Juan Manuel Li A R Specialist(s): Dr. Shey Moreno Estimated Blood Loss (mL): [...] while patient is inpatient status, please call [phone] for IR nursing to triage. Tolerance: good [...] Completion Last Updated: 29-Jan-2023 09:36 by James Li)[facility] 01-27-2023 NoteHistory of Present Illness: HPI: EMPERATRIZ EPPS is a 83 year [...] 25 mg BID Alfuzosin Prednisone--> Acutely for Pleurisy, no chronic steroid use ROS 13 Point Review of Systems Complete and Negative Except as Noted in HPI Comorbidities: Comorbidites: Comorbid Conditionsatrial fibrillation, hypertension Type of Atrial FibrillationParoxysmal Allergies: No Known Allergies: Medications Prior to Admission: Admission Medication Reconciliation has not been completed for this patient. Objective: Objective Information: T PRBPMAPSpO2 Value37.46674867/8993% Date/Time01/27 1:583 1:5801/27 1:5801/27 1:583/ 1:58 Range(37.4C - 37.4C ) (99 - [...] for GERD Renal m (more content not included)...[facility]02-28-[address] Rivas [facility] January 26, 2023 7:52pm Note Date/Time January 26, 2023 3:28pm [facility] Medical Records Department [address] [place] [address] Emergency Department Summary 01/26/23 MR#: [id number] Acct: [id number] Name: EMPERATRIZ EPPS Rep #:[id number] : 1940 83 From: Bee Rivas MD PCP: Dr. Anurag Dolan MD Status:REG ER Location: ED HPI History of Present Illness Chief Complaint: Chest Other Narrative Narrative: Patient presents with left-sided chest pain shoulder and arm pain as well as left-sided neck pain. He was seen last week and had work-up for his chest pain however his pain is no better. He tells me he has no weakness in his arm or legbut just pain in his left arm along with the neck pain. The pain also extends into the left chest region. Patient also tells me that there is increased prominence in the proximal clavicle region. He has no difficulty breathing but he does have pain when he takes a deep breath. He has a history of malignant melanoma. [facility] Medical History Alcohol use Arthritis Melendrez's palsy Benign prostate hyperplasia Cancer Cough Creatinine elevation CRF (chronic renal failure) Drug rash Encounter for immunotherapy Essential hypertension Gastric reflux GERD (gastroesophageal reflux disease) Hemorrhoids History of brachytherapy Hx of malignant neoplasm of prostate Hypercholesterolemia Hypertension Hypokalemia Hypothyroidism (acquired) Hypothyroidism (acquired) Injury of back Malignant melanoma of right heel Mitral valve insufficiency Non-smoker Open wound of right heel Osteoarthritis of left knee PAF (paroxysmal atrial fibrillation) Personal history of colonic polyps PVC (premature ventricular contraction) Regional lymph node metastasis present Rheumatoid arthritis Sleep disorder Squamous cell carcinoma of skin Wears glasses Home Medications ipratropium bromide 21 mcg (0.03 %) nasal spray 2 spray intranasal PRN PRN Congestion 10/29/20 [History Last Taken Unknown] omeprazole 40 mg capsule,delayed release 40 mg PO DAILY 10/29/20 [History Last Taken 06/19/21 08:00 40 MG] multivitamin with minerals 1 ea PO DAILY 10/31/20 [History Last Taken Unknown] acetaminophen 500 mg tablet (Tylenol Extra Strength) 500 mg PO Q6H PRN Pain 06/05/21 [History Last Taken Unknown] triamcinolone acetonide 0.1 % topical cream 1 applic topical DAILY PRN affected area 09/15/21 [History Last Taken Unknown] amlodipine 5 mg tablet 5 mg PO DAILY 10/06/21 [History Last Taken Unknown] zinc 50 mg tablet 50 mg PO DAILY 12/29/21 [History Last Taken Unknown] calcium carbonate 600 mg calcium (1,500 mg) tablet (Calcium) 600 mg PO DAILY 01/20/22 [History Last Taken Unknown] apixaban 5 mg tablet (Eliquis) 5 mg PO BID #60 tabs 03/13/22 [Rx Last Taken Unknown] glucosamine sulfate 500 mg tablet (Glucosamine) 1,000 mg PO DAILY 03/13/22 [History Last Taken Unknown] betamethasone dipropionate 0.05 % topical cream 1 applic topical DAILY 05/05/22 [History Last Taken Unknown] diphenhydramine HCl 25 mg capsule (Benadryl) 25 mg PO QHS PRN 07/15/22 [History Last Taken Unknown] fexofenadine 60 mg tablet (Amina Allergy) 60 mg PO DAILY PRN 07/15/22 [History Last Taken Unknown] metoprolol tartrate 25 mg tablet 25 mg PO BID this is a dose increase. [place]! #180 tabs 07/16/22 [Rx Last Taken Unknown] alfuzosin 10 mg tablet,extended release 24 hr 10 mg PO DAILY 09/28/22 [History Last Taken Unknown] acetylcysteine 600 mg capsule ea PO 10/13/22 [History Last Taken Unknown] aflibercept 2 mg/0.05 mL intravitreal solution for injection (Eylea) 2 mg intravitreal ONCE 10/14/22 [History Last Taken Unknown] levothyroxine 112 mcg tablet 112 mcg PO DAILY #30 tabs 11/06/22 [Rx Last Taken Unknown] camphor-menthol 0.5 %-0.5 % lotion (Sarna Original) 1 applic topical BID-TID PRN101/13/22 [History Last Taken Unknown] cholecalciferol (vitamin D3) 25 mcg (1,000 unit) capsule 25 mcg PO DAILY 11/12/22 [History Last Taken Unknown] lidocaine-prilocaine 2.5 %-2.5 % topical cream 1 applic topical ONCE PRN Port access 30 days #30 grams 11/12/22 [Rx Last Taken Unknown] prednisone 20 mg tablet 60 mg PO DAILY #15 TABLETS 01/18/23 [Rx Last Taken Unknown] Allergy/AdvReac Type Severity Reaction Status Date / Time No Known Allergies Allergy Verified 01/26/23 13:48 Family History Brother Prostate cancer CVA (cerebral vascular accident) Brother Leukemia Father Hypertension Myocardial infarction Mother CHF (congestive heart failure) Surgical History History of root canal procedure Hx of colonoscopy Hx of discectomy Hx of foot operation Hx of hemorrhoidectomy Hx of rotator cuff surgery Social History Smoking Status: Never smoker second hand exposure: No alcohol intake: current alcohol intake frequency: a few times a month details: OCCASIONALLY substance use type: does not use well-balanced diet: about half the time caffeine: Yes Type: coffee Number of servings: 1 eating out: 1-3 times/week what type of physical activity do you participate in: bicycling frequency: 3-4 times per week duration: 15-30 minutes/day melany/baptism: Zoroastrianism seatbelt use: always do you feel safe at home: Yes ROS ROS ED ROS Narrative Past medical history: Reviewed Medications: Reviewed Social history: Noncontributory Review of systems: All systems negative except as indicated General: No fever Eyes: No visual changes ENT: No upper airway congestion, normal voice Neck: Neck pain as in HPI Cardiovascular: Chest pain as in HPI Respiratory: No shortness of breath or cough Gastrointestinal: No abdominal pain, nausea vomiting or diarrhea Genitourinary: No dysuria Musculoskeletal: Left arm pain Skin: No rash Neurological negative he tells me there is no weakness of his left arm and left leg, just left arm pain, no sensory deficits EXAM Physical Exam Narrative Exam Narrative: Physical exam General: Patient appears uncomfortable Head: Normocephalic, Atraumatic Eyes: Conjunctiva not pale ENT: Moist mucous membranes Neck: No C-spine tenderness, he is quite bit of pain over the left paraspinal muscles, left side and anterior part of his neck I do not see any deformities. He has a normal voice. Cardiovascular: Regular rate, Regular rhythm Chest wall: Exquisitely tender over the upper part of the left chest wall regionthere is a prominence over the proximal clavicle, that is somewhat different than the right. Respiratory: No distress, CTA bilaterally Abdomen: Soft, Nontender, Nondistended Back: Nontender, Normal Inspection. Negative for: CVA tenderness Extremities: Nontender, No edema Skin: Normal color, No rash Neurological: Alert, patient does have strength in his left upper extremity thatis about the same as the right, however as I palpate the wrist to the extremity or move it it is quite tender throughout. Const Vital Signs: 01/26/23 13:44 01/26/23 14:55 01/26/23 14:58 Temperature 97.8 F 98.2 F Temperature Source Temporal Oral Pulse Rate 97 87 87 Respiratory Rate 18 16 18 Blood Pressure 113/83 H 118/82 H Blood Pressure Mean 93 94 Pulse Ox 98 96 96 Oxygen Delivery Method Room Air Room Air Room Air 01/26/23 18:03 01/26/23 18:38 Temperature 97 F L Temperature Source Temporal Pulse Rate 88 86 Respiratory Rate 18 14 Blood Pressure 124/81 H 122/84 H Blood Pressure Mean 95 96 Pulse Ox 96 91 Oxygen Delivery Method Room Air Room Air MDM MDM MDM Narrative Medical decision making narrative: A. Problems addressed Patient is found to have leukocytosis however it somewhat decreased from last week. Because of the amount of pain he had a CT of the chest and neck, this shows a significant intrathoracic abscess, see radiology report. Antibiotics were given. This hospital does not have a CT surgery therefore we will transfer. I talked to Dr. Boggs at [facility] who accepted the patienton the thoracic service. B. Amount and/or complexity of the data 1. CBC CMP ordered interpreted by me I discussed the patient with both daughters who were in the room 2. Independent interpretation of test Telemetry: Sinus rhythm with a rate in the 80s without ectopy 3. Discussion of management with thoracic surgeon see above C. 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 All these were ruled out. Lab Data Labs: Laboratory Results - last 24 hr 01/26/23 01/26/23 14:55 14:55 WBC 14.9 H RBC 3.62 L Hgb 11.4 L Hct 34.3 L MCV 94.8 H MCH 31.5 MCHC 33.2 RDW Std Deviation 47.4 H RDW Coeff of Halley 13.7 Plt Count 418 MPV 8.9 Sodium 138 Potassium 4.0 Chloride 107 Carbon Dioxide 24.0 Anion Gap 7 BUN 32 H Creatinine 0.95 Estim Creat Clear Calc 54.10 Est GFR (MDRD) Af Amer 98 Est GFR (MDRD) Non-Af 81 BUN/Creatinine Ratio 33.8 H Glucose 120 H Calcium 9.2 Total Bilirubin 0.50 AST 21 ALT 66 H Alkaline Phosphatase 219 H Troponin I High Sens 9 Total Protein 6.2 L Albumin 1.6 L Globulin 4.6 H Albumin/Globulin Ratio 0.3 L Radiography Diagnostic Testing: Clinical Impression(s) from Imaging Studies Chest CTA 01/26/23 15:16 IMPRESSION: 9.2 cm of apical pleural abscess may originate from a septic left sternoclavicular joint. Associated left empyema. 4.7 cm supraclavicular abscess. Normal CTA chest examination, without a demonstrated pulmonary embolism or arterial dissection. Electronically Signed: Bee Ritchie MD at 18:23 EST Reading Location ID and State: [address] [place] [address] Tel , Service support , Soft Tissue Neck CT 01/26/23 15:19 IMPRESSION: Abscesses involving the left sternoclavicular joint, left infraclavicular soft tissues, and left pleural detailed above. Electronically Signed: Bee Ritchie MD at 17:55 EST , EKG Initial EKG: Comments: Sinus rhythm with a rate of 86. Normal MS and QTc intervals. No ischemic changes. Interpreted by emergency doctor Discharge Plan Triage Chief Complaint: Chest Other ED Provider: Bee Rivas Dx/Rx/DC Orders Clinical Impression: Abscess of thorax, Hx of melanoma of skin, Atrial fibrillation Prescriptions: No Action omeprazole 40 mg capsule,delayed release(DR/EC) 40 mg PO DAILY ipratropium bromide 0.03 % spray,non-aerosol 2 spray INTRANASAL PRN PRN (Reason: Congestion) acetaminophen [Tylenol Extra Strength] 500 mg tablet 500 mg PO Q6H PRN (Reason: Pain) triamcinolone acetonide 0.1 % cream 1 applic topical DAILY PRN (Reason: affected area) amlodipine 5 mg tablet 5 mg PO DAILY zinc 50 mg tablet 50 mg PO DAILY calcium carbonate [Calcium 600] 600 mg calcium (1,500 mg) tablet 600 mg PO DAILY Eliquis 5 mg tablet 5 mg PO BID Qty: 60 11RF acetylcysteine 600 mg capsule PO Label Comments: TAKE 1 CAPSULE BY MOUTH TWICE DAILY fexofenadine [Amina Allergy] 60 mg tablet 60 mg PO DAILY PRN diphenhydramine HCl [Benadryl] 25 mg capsule 25 mg PO QHS PRN alfuzosin 10 mg tablet extended release 24 hr 10 mg PO DAILY Rx Instructions: administer after the same meal each day Eylea 2 mg/0.05 mL solution 2 mg intravitreal ONCE Sarna Original 0.5-0.5 % lotion 1 applic topical BID-TID PRN cholecalciferol (vitamin D3) 25 mcg (1,000 unit) capsule 25 mcg PO DAILY multivitamin with minerals 1 EACH tablet 1 ea PO DAILY betamethasone dipropionate 0.05 % Cream 1 applic TOPICAL DAILY glucosamine sulfate [Glucosamine] 500 mg tablet 1,000 mg PO DAILY prednisone 20 mg tablet 60 mg PO DAILY Qty: 15 0RF metoprolol tartrate 25 mg tablet 25 mg PO BID Qty: 180 3RF levothyroxine 112 mcg tablet 112 mcg PO DAILY Qty: 30 11RF lidocaine-prilocaine 2.5-2.5 % cream 1 applic topical ONCE PRN (Reason: Port access ) 30 Days Qty: 30 2RF Primary Care Provider: Anurag Dolan Referrals: Anurag Dolan MD [Primary Care Provider] - Disposition Disposition: DC/Tx to Another Type of HCF What to do if you have Problems For any increased pain, shortness of breath, bleeding, nausea or vomiting, chestpain, or any unexpected problems, contact your Primary Care Provider. Call [facility] ([phone]) or report to the closest Emergency Room. Call 911 if necessary. 01/26/231951 <Electronically signed by Bee Rivas MD> Cosigner Signature (if applicable): CC: Dr. Anurag Dolan MD ~ Signed [facility] Work Phone: 1(358) 233-963801-26-2023 NoteSend Summary: Discharge Summary Providers: Provider RoleProvider Name Hussein Roland ReferringHussein Bennett [facility] Center[facility] saucedo Note Recipients: Hussein Bennett MD Smith, Eric A, MD - [id number] [] Discharge: Summary: Admission Date: .23-Dec-2022 10:21:00 Discharge Date: 24-Dec-2022 Attending Physician at Discharge: Hussein Bennett Admission Reason: Malignant melanoma of right heel Final Discharge Diagnoses: Malignant melanoma of right heel Procedures: Date: 23-Dec-2022 18:00:00 Procedure Name: 1. Right inguinal lymph node dissection 2. Sartorius flap reconstruction 3. Excision of skin lesion - concerning for in transit lesion Condition at Discharge: Satisfactory Disposition at Discharge: Home Health Care - New Vital Signs: T PRBPMAPSpO2 [id number]/6194% Date/Time12/24 8: 8: 8: 8: 8:17 Range(36.6C - 37.4C ) (77 - 83 ) (18 - 18 ) (96 - 133 )/ (50 - 84 ) (93% - 95% ) Highest temp of 37.4 C was recorded at 12/24 8:17 Date: Weight/Scale Type:Height: 23-Dec-2022 20:1093.8 kg / rdu062.4 cm Hospital Course: 82 yr old male [...] the color of the drainage should become lead generator (red to pink to yellow). This drain [...] Home Care Agency: Other (with phone number) [facility] Skilled Disciplines Ordered: RN/EXTENSION CLERK Home Care Services: Home Care Skilled Service: [...] discharge: Full Code Electronic Signatures: Aspen Benton (CONSTRUCTION CHECKER-PLASTIC JOINT MAKER) (Signed 24-Dec-2022 12:59) (more content not included)...[facility]01-26-2023 NoteClinical Note - Pharmacy v2: Education: Document TopicMedication Education MedicationMeds to Beds: Patient declines Meds to Beds service at discharge. Sources used to confirm home medication list: Med list pulled from ambulatory EMR. Electronic fill history, HIE ([facility] note on 12/08/22), and OARRS were all checked. Patient was interviewed and had hand-written list in room. Additional comments: Patient had hand-written med list. Acetaminophen is in the OMR, because that is a future discharge medication. OARRS shows tramadol and oxycodone-acetaminophen were both filled in 04/2021 for short-courses. Medication reconciliation complete Please reach out via [employer] for questions Yves Mcgarry RPh, PharmD, PGY1 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 Bennett Resident/Fellow/Other A R Specialist: MD Shy Sharif, MS 4 Procedure: 1. [...] vessels. This dissection proceeded medially to include Mission's node and tissue medial to the femoral [...] sutures. At this point 2 x 19 Citizen [place] channel drains were placed into the resection [...] of the procedure. Note (more content not included)...[facility]01-25-2023 Note History & Physical Reviewed: I have reviewed the History and Physical [...] COVID-19 what the risks are. Electronic Signatures: Hussein Bennett) (Signed 23-Dec-2022 13:30) Authored: History & Physical Reviewed, ERAS, Consent, Note Completion Last Updated: 23-Dec-2022 13:30 by Hussein Bennett)[facility]01-20-2023 Evaluation + Plan note Future Scheduled Tests Radiology* CT Knee w/o Contrast Right 12/18/22 [facility] 01-15-2023 History of Present illness Narrative* Mr. Epps presented as a 81-year-old male referred by Dr. Brianna Souza from the [facility] for evaluation and management of a right heel melanoma. 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 Due tolack of healing and an episode of bleeding [...] healing well. There does appear to be someresidual pigmentation surrounding this biopsy site. The patient has not seen a caving guide but denies any other lesions of concern on his lower extremity or elsewhere on his body. * Surgery 05/07/2021 wide excision right heel melanoma with a 2 cm margin, Integra graft placement, VACplacement. Right inguinal sentinel lymph node biopsy. * Pathology residual melanoma at the right heel with a depth of 1.3 mm. No microsatellitosis. 1 of 2 inguinal sentinel lymph nodes were involved, 0.02 mm deposit with no extracapsular extension. 0/1 popliteal lymph nodes involved * Completed adjuvant Keytruda * Surgery 12/23/2022 right inguinal lymphadenectomy with sartorius flap reconstruction; excision pigmented dermal lesion * Pathology 4 of 10 lymph nodes involved with melanoma. Extracapsular extension seen in the largest lesion. The dermal pigmented lesion did not represent in- transit disease * 02/25/2023 - Drain assessment. The patient returns after recent hospitalization with an intrathoracic abscess operated on by Dr. María Boggs. He is recovering well after that procedure. Continueson Antibiotics * 03/05/2023 -seroma drain placed to decompress the seroma cavity due to upcoming Radiation Therapy with Dr. Chuck Howell * 03/12/2023 drainage around the newly placed seroma catheter left concern for undrained fluid collections or and malfunctioning drain. He was seen in clinic today and his drain is not kinked and was flushed gently noting the there was easy return of fluid. He has no undrained fluid collections. Thereis some fluid that leaks around the drain with pressure * ROS: * The patient has good performance status and is active daily. * Cardiac: No chest pain, palpitations or heart attacks * Pulmonary: No asthma, bronchitis, or COPD. Left chest incision is well approximated * HEENT: right eye vision change * GI: No constipation, diarrhea, or bloody bowel movements * : No changes in his urinary habits recently * Musculoskeletal: Ambulating well. Decreased right lower extremity edema. RIght knee is sore again * Skin: Heel has healed very well. Multiple nonmelanoma skin cancers in the past * Heme: No bleeding or thrombosis issues * Endo: hypothyroid * Lymph: Right inguinal incision healed. Seroma catheter with some leakage noted. Skin breakdown due to tape * Psych: No reported anxiety or depression * All other systems reviewed and negative * Physical exam: * General: No acute distress. Healthy appearing * HEENT: Moist oral mucosa, normocephalic * CV: RRR, Vitals reviewed * Pulmonary: No respiratory distress. No use of accessory muscles. No audible wheeze. Left chest incision is healing appropriately. Improved redness of the overlying skin * Lymphatics: No undrained fluid collection in the right groin. Expressible serous fluid around the drain site with pressure. The drain itself seems to be working. * Skin: Skin breakdown around the drain due to tape injury * Neuro: No gross sensorimotor deficits * Extremities: Bilateral lower extremity edema is mild but improved since preop [facility] Work Phone: [phone] 480-202101-08-2023 History of Present illness Narrative* Mr. Epps presented as a 81-year-old male referred by Dr. 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 Due tolack of healing and an episode of bleeding [...] healing well. There does appear to be someresidual pigmentation surrounding this biopsy site. The patient has not seen a caving guide but denies any other lesions of concern on his lower extremity or elsewhere on his body. * Surgery 05/07/2021 wide excision right heel melanoma with a 2 cm margin, Integra graft placement, VACplacement. Right inguinal sentinel lymph node biopsy. * Pathology residual melanoma at the right heel with a depth of 1.3 mm. No microsatellitosis. 1 of 2 inguinal sentinel lymph nodes were involved, 0.02 mm deposit with no extracapsular extension. 0/1 popliteal lymph nodes involved * Completed adjuvant Keytruda * Surgery 12/23/2022 right inguinal lymphadenectomy with sartorius flap reconstruction; excision pigmented dermal lesion * Pathology 4 of 10 lymph nodes involved with melanoma. Extracapsular extension seen in the largest lesion. The dermal pigmented lesion did not represent in- transit disease * 02/25/2023 - Drain assessment. The patient returns after recent hospitalization with an intrathoracic abscess operated on by Dr. María Boggs. He is recovering well after that procedure. Continueson Antibiotics * 03/05/2023 - After recent inguinal drain removal, the patient developed a recurrent seroma. Asymptomatic.Due to upcoming Radiation Therapy with Dr. Chuck Howell, plan was for placement of a drain to decompress this cavity * ROS: * The patient has good performance status and is active daily. * Cardiac: No chest pain, palpitations or heart attacks * Pulmonary: No asthma, bronchitis, or COPD. Left chest incision is well approximated * HEENT: right eye vision change * GI: No constipation, diarrhea, or bloody bowel movements * : No changes in his urinary habits recently * Musculoskeletal: Ambulating well. Decreased right lower extremity edema. RIght knee is sore again * Skin: Heel has healed very well. Multiple nonmelanoma skin cancers in the past * Heme: No bleeding or thrombosis issues * Endo: hypothyroid * Lymph: Right inguinal incision healed. Large soft seroma palpable * Psych: No reported anxiety or depression * All other systems reviewed and negative * Physical exam: * General: No acute distress. Healthy appearing * HEENT: Moist oral mucosa, normocephalic * CV: RRR, Vitals reviewed * Pulmonary: No respiratory distress. No use of accessory muscles. No audible wheeze. Left chest incision is healing appropriately. Some redness of the overlying skin. * Lymphatics: Right inguinal incision is healed. Large soft palpable seroma noted. * Skin: No rashes or lesions * Neuro: No gross sensorimotor deficits * Extremities: Bilateral lower extremity edema is mild but improved since preop [facility] Work Phone: 1(353) 954-926810-11-2022 History of Present illness Narrative* Mr. Epps presented as a 81-year-old male referred by Dr. 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 Due tolack of healing and an episode of bleeding [...] healing well. There does appear to be someresidual pigmentation surrounding this biopsy site. The patient has not seen a caving guide but denies any other lesions of concern on his lower extremity or elsewhere on his body. * Surgery 05/07/2021 wide excision right heel melanoma with a 2 cm margin, Integra graft placement, VACplacement. Right inguinal sentinel lymph node biopsy. * Pathology residual melanoma at the right heel with a depth of 1.3 mm. No microsatellitosis. 1 of 2 inguinal sentinel lymph nodes were involved, 0.02 mm deposit with no extracapsular extension. 0/1 popliteal lymph nodes involved * Completed adjuvant Keytruda * 12/08/2022 follow-up right inguinal melanoma recurrence. The patient had a whole-body PET/CT and brain MRI in [place] the identified PET avidity in the right inguinal basin concurrent with the palpable node. No other distant metastatic disease. Biopsy proved recurrence. The patient presents now for discussion of surgical planning. * ROS: * The patient has good performance status and is active daily. * Cardiac: No chest pain, palpitations or heart attacks * Pulmonary: No asthma, bronchitis, or COPD * HEENT: right eye vision change * GI: No constipation, diarrhea, or bloody bowel movements * : No changes in his urinary habits recently * Musculoskeletal: Ambulating well. Bilateral lower extremity edema, right greater than left. Mild * Skin: Heel has healed very well. Multiple nonmelanoma skin cancers in the past * Heme: No bleeding or thrombosis issues * Endo: hypothyroid * Lymph: Right inguinal swelling * Psych: No reported anxiety or depression * All other systems reviewed and negative * Physical exam: * General: No acute distress. Healthy appearing * HEENT: Moist oral mucosa, normocephalic * CV: RRR, Vitals reviewed * Pulmonary: No respiratory distress. No use of accessory muscles. No audible wheeze * Lymphatics: Palpable node lateral to the prior inguinal biopsy scar that is transverse just below the inguinal crease. No other palpable nodes. * Skin: No rashes or lesions * Neuro: No gross sensorimotor deficits * Extremities: Bilateral lower extremity edema is mild. Compression socks are being used [facility] Work Phone: 1([phone]) 227-277103-16-2022 History of Present illness Narrative* Mr. Epps presented as a 81-year-old male referred by Dr. 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 Due tolack of healing and an episode of bleeding [...] healing well. There does appear to be someresidual pigmentation surrounding this biopsy site. The patient has not seen a caving guide but denies any other lesions of concern on his lower extremity or elsewhere on his body. * Surgery 05/07/2021 wide excision right heel melanoma with a 2 cm margin, Integra graft placement, VACplacement. Right inguinal sentinel lymph node biopsy. * Pathology residual melanoma at the right heel with a depth of 1.3 mm. No microsatellitosis. 1 of 2 inguinal sentinel lymph nodes were involved, 0.02 mm deposit with no extracapsular extension. 0/1 popliteal lymph nodes involved * 01/13/2022 - Routine follow up. The patient continues with Dr. Souza in Medical Oncology for Adjuvant Keytruda. 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 He has 2 more treatments remaining. He will have imaging likely in June. He will also be due for a surveillance ultra sound around that time for his right popliteal and inguinal basins. Notably, the patient also reports some increased ankle and lower leg swelling at the end of the day right greater than left. This has improved some compression hose that he purchased, but seems to have persisted. The patient was also hospitalized for new onset atrial fibrillation and is currently on Eliquis. * ROS: * The patient has good performance status and is active daily. * Cardiac: No chest pain, palpitations or heart attacks * Pulmonary: No asthma, bronchitis, or COPD * HEENT: right eye vision change * GI: No constipation, diarrhea, or bloody bowel movements * : No changes in his urinary habits recently * Musculoskeletal: Ambulating well. Bilateral lower extremity edema, right greater than left. Mild * Skin: Heel has healed very well. Multiple biopsies of the skin noted since the last visit - [facility] * Heme: No bleeding or thrombosis issues * Endo: hypothyroid * Lymph: No swollen lymph glands * Psych: No reported anxiety or depression * All other systems reviewed and negative * Physical exam: * General: No acute distress. Healthy appearing * HEENT: Moist oral mucosa, normocephalic * CV: RRR, Vitals reviewed * Pulmonary: No respiratory distress. No use of accessory muscles. No audible wheeze * Lymphatics: No palpable lymphadenopathy in the right popliteal or inguinal basins * Skin: Well healed heel wound by secondary intention. no evidence of pigmentation or nodularity to suggest in-transit disease * Neuro: No gross sensorimotor deficits * Extremities: Bilateral lower extremity swelling which is new. This is mild however the right is greater than the left. The patient is wearing compression hose as a result and thinks this is [facility] [address] Work Phone: 1(359) 132-527703-14-2022 History of Present illness Narrative* Mr. Epps presented as a 81-year-old male referred by Dr. 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 Due tolack of healing and an episode of bleeding [...] healing well. There does appear to be someresidual pigmentation surrounding this biopsy site. The patient has not seen a caving guide but denies any other lesions of concern on his lower extremity or elsewhere on his body. * Surgery 05/07/2021 wide excision right heel melanoma with a 2 cm margin, Integra graft placement, VACplacement. Right inguinal sentinel lymph node biopsy. * Pathology residual melanoma at the right heel with a depth of 1.3 mm. No microsatellitosis. 1 of 2 inguinal sentinel lymph nodes were involved, 0.02 mm deposit with no extracapsular extension. 0/1 popliteal lymph nodes involved * 01/13/2022 - Routine follow up. The patient continues with Dr. Souza in Medical Oncology for Adjuvant Keytruda. 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 He has 2 more treatments remaining. He will have imaging likely in June. He will also be due for a surveillance ultra sound around that time for his right popliteal and inguinal basins. Notably, the patient also reports some increased ankle and lower leg swelling at the end of the day right greater than left. This has improved some compression hose that he purchased, but seems to have persisted. The patient was also hospitalized for new onset atrial fibrillation and is currently on Eliquis. * ROS: * The patient has good performance status and is active daily. * Cardiac: No chest pain, palpitations or heart attacks * Pulmonary: No asthma, bronchitis, or COPD * HEENT: right eye vision change * GI: No constipation, diarrhea, or bloody bowel movements * : No changes in his urinary habits recently * Musculoskeletal: Ambulating well. Bilateral lower extremity edema, right greater than left. Mild * Skin: Heel has healed very well. Multiple biopsies of the skin noted since the last visit - [facility] * Heme: No bleeding or thrombosis issues * Endo: hypothyroid * Lymph: No swollen lymph glands * Psych: No reported anxiety or depression * All other systems reviewed and negative * Physical exam: * General: No acute distress. Healthy appearing * HEENT: Moist oral mucosa, normocephalic * CV: RRR, Vitals reviewed * Pulmonary: No respiratory distress. No use of accessory muscles. No audible wheeze * Lymphatics: No palpable lymphadenopathy in the right popliteal or inguinal basins * Skin: Well healed heel wound by secondary intention. no evidence of pigmentation or nodularity to suggest in-transit disease * Neuro: No gross sensorimotor deficits * Extremities: Bilateral lower extremity swelling which is new. This is mild however the right is greater than the left. The patient is wearing compression hose as a result and thinks this is [facility] Work Phone: [phone] History of Present illness Narrative* Mr. Epps presented as a 81-year-old male referred by Dr. 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 Due tolack of healing and an episode of bleeding [...] healing well. There does appear to be someresidual pigmentation surrounding this biopsy site. The patient has not seen a caving guide but denies any other lesions of concern on his lower extremity or elsewhere on his body. * Surgery 05/07/2021 wide excision right heel melanoma with a 2 cm margin, Integra graft placement, VACplacement. Right inguinal sentinel lymph node biopsy. * Pathology residual melanoma at the right heel with a depth of 1.3 mm. No microsatellitosis. 1 of 2 inguinal sentinel lymph nodes were involved, 0.02 mm deposit with no extracapsular extension. 0/1 popliteal lymph nodes involved * 01/13/2022 - Routine follow up. The patient continues with Dr. Souza in Medical Oncology for Adjuvant Keytruda. 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 Still doing well overall. Recent CT 12/30/2021 report reviewed - no evidence for metastatic concerns. Multiple Derm visits and biopsies since my last visit - [facility] * ROS: * The patient has good performance status and is active daily. * Cardiac: No chest pain, palpitations or heart attacks * Pulmonary: No asthma, bronchitis, or COPD * HEENT: right eye vision change * GI: No constipation, diarrhea, or bloody bowel movements * : No changes in his urinary habits recently * Musculoskeletal: Ambulating well. * Skin: Heel has healed very well. Multiple biopsies of the skin noted since the last visit - [facility] * Heme: No bleeding or thrombosis issues * Endo: hypothyroid * Lymph: No swollen lymph glands * Psych: No reported anxiety or depression * All other systems reviewed and negative * Physical exam: * General: No acute distress. Healthy appearing 82-year-old man * HEENT: Moist oral mucosa, normocephalic * CV: RRR, Vitals reviewed * Pulmonary: No respiratory distress. No use of accessory muscles. No audible wheeze * GI: Soft, non-distended. * Lymphatics: No palpable lymphadenopathy in the right popliteal or inguinal basins * Skin: Well healed heel wound by secondary intention. Some callous. no evidence of pigmentation or nodularity to suggest in-transit disease * Neuro: No gross sensorimotor deficits * Extremities: No leg swelling [facility] [address] Work Phone: [phone] History of Present illness Narrative* Mr. Epps presented as a 81-year-old male referred by Dr. 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 Due tolack of healing and an episode of bleeding [...] healing well. There does appear to be someresidual pigmentation surrounding this biopsy site. The patient has not seen a caving guide but denies any other lesions of concern on his lower extremity or elsewhere on his body. * Surgery 05/07/2021 wide excision right heel melanoma with a 2 cm margin, Integra graft placement, VACplacement. Right inguinal sentinel lymph node biopsy. * Pathology residual melanoma at the right heel with a depth of 1.3 mm. No microsatellitosis. 1 of 2 inguinal sentinel lymph nodes were involved, 0.02 mm deposit with no extracapsular extension. 0/1 popliteal lymph nodes involved * 01/13/2022 - Routine follow up. The patient continues with Dr. Souza in Medical Oncology for Adjuvant Keytruda. 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 Still doing well overall. Recent CT 12/30/2021 report reviewed - no evidence for metastatic concerns. Multiple Derm visits and biopsies since my last visit - [facility] * ROS: * The patient has good performance status and is active daily. * Cardiac: No chest pain, palpitations or heart attacks * Pulmonary: No asthma, bronchitis, or COPD * HEENT: right eye vision change * GI: No constipation, diarrhea, or bloody bowel movements * : No changes in his urinary habits recently * Musculoskeletal: Ambulating well. * Skin: Heel has healed very well. Multiple biopsies of the skin noted since the last visit - [facility] * Heme: No bleeding or thrombosis issues * Endo: hypothyroid * Lymph: No swollen lymph glands * Psych: No reported anxiety or depression * All other systems reviewed and negative * Physical exam: * General: No acute distress. Healthy appearing 82-year-old man * HEENT: Moist oral mucosa, normocephalic * CV: RRR, Vitals reviewed * Pulmonary: No respiratory distress. No use of accessory muscles. No audible wheeze * GI: Soft, non-distended. * Lymphatics: No palpable lymphadenopathy in the right popliteal or inguinal basins * Skin: Well healed heel wound by secondary intention. Some callous. no evidence of pigmentation or nodularity to suggest in-transit disease * Neuro: No gross sensorimotor deficits * Extremities: No leg swelling [facility] Main Work Phone: [phone] History of Present illness Narrative* Mr. Epps presented as a 81-year-old male referred by Dr. 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 Due tolack of healing and an episode of bleeding [...] healing well. There does appear to be someresidual pigmentation surrounding this biopsy site. The patient has not seen a caving guide but denies any other lesions of concern on his lower extremity or elsewhere on his body. * Surgery 05/07/2021 wide excision right heel melanoma with a 2 cm margin, Integra graft placement, VACplacement. Right inguinal sentinel lymph node biopsy. * Pathology residual melanoma at the right heel with a depth of 1.3 mm. No microsatellitosis. 1 of 2 inguinal sentinel lymph nodes were involved, 0.02 mm deposit with no extracapsular extension. 0/1 popliteal lymph nodes involved * 01/13/2022 - Routine follow up. The patient continues with Dr. Souza in Medical Oncology for Adjuvant Keytruda. 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 Still doing well overall. Recent CT 12/30/2021 report reviewed - no evidence for metastatic concerns. Multiple Derm visits and biopsies since my last visit - [facility] * ROS: * The patient has good performance status and is active daily. * Cardiac: No chest pain, palpitations or heart attacks * Pulmonary: No asthma, bronchitis, or COPD * HEENT: right eye vision change * GI: No constipation, diarrhea, or bloody bowel movements * : No changes in his urinary habits recently * Musculoskeletal: Ambulating well. * Skin: Heel has healed very well. Multiple biopsies of the skin noted since the last visit - [facility] * Heme: No bleeding or thrombosis issues * Endo: hypothyroid * Lymph: No swollen lymph glands * Psych: No reported anxiety or depression * All other systems reviewed and negative * Physical exam: * General: No acute distress. Healthy appearing 82-year-old man * HEENT: Moist oral mucosa, normocephalic * CV: RRR, Vitals reviewed * Pulmonary: No respiratory distress. No use of accessory muscles. No audible wheeze * GI: Soft, non-distended. * Lymphatics: No palpable lymphadenopathy in the right popliteal or inguinal basins * Skin: Well healed heel wound by secondary intention. Some callous. no evidence of pigmentation or nodularity to suggest in-transit disease * Neuro: No gross sensorimotor deficits * Extremities: No leg swelling FU-Jg[facility]vs[facility] Work Phone: [phone] History of Present illness Narrative* Mr. Epps is a 81-year-old male referred by Dr. 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 The patient reports that he has had a lesionon his heel for about a year that was treated as a plantar wart by his oyster culler. Due to lack of he aling and an episode of bleeding 3 months [...] site. The patient has not seen a caving guide but denies any other lesions of concern on his lower extremity or elsewhere on his body. * Surgery 05/07/2021 wide excision right heel melanoma with a 2 cm margin, Integra graft placement, VACplacement. Right inguinal sentinel lymph node biopsy. * Pathology residual melanoma at the right heel with a depth of 1.3 mm. No microsatellitosis. 1 of 2 inguinal sentinel lymph nodes were involved, 0.02 mm deposit with no extracapsular extension. 0/1 popliteal lymph nodes involved * 10/07/2021 - Routine Follow up. Reports that he is doing very well. heel wound has contracted well except for a small ulcer the size of a pencil eraser. No significant pain. No groin swelling. * Recent ultrasound performed. I will need to obtain the images to evaluate the morphology of these nodes. Continues on immunotherapy with Dr. Souza. New changes in thyroid function, renal function,and right eye vision that are being evaluated. * ROS: * The patient has good performance status and is active daily. * Cardiac: No chest pain, palpitations or heart attacks * Pulmonary: No asthma, bronchitis, or COPD * HEENT: right eye vision change * GI: No constipation, diarrhea, or bloody bowel movements * : No changes in his urinary habits recently * Musculoskeletal: Ambulating well. * Skin: Healing heel wound with small residual ulcer * Heme: No bleeding or thrombosis issues * Endo: hypothyroid * Lymph: No swollen lymph glands * Psych: No reported anxiety or depression * All other systems reviewed and negative * Physical exam: * General: No acute distress. Healthy appearing 81-year-old man * HEENT: Moist oral mucosa, normocephalic * CV: RRR, Vitals reviewed * Pulmonary: No respiratory distress. No use of accessory muscles. No audible wheeze * GI: Soft, non-distended. * Lymphatics: No palpable lymphadenopathy in the right popliteal or inguinal basins * Skin: 5x8mm ulceration remains on the posterior heel. Surrounding callous. No evidnece for surrounding pigmentation or nodularity. * Neuro: No gross sensorimotor deficits * Extremities: No leg swelling [facility] [address] Work Phone: [phone] NotePROCEDURE DETAILS Preoperative Diagnosis: Right heel melanoma Postoperative Diagnosis: Right heel melanoma Surgeon: Dr. Bennett Resident/Fellow/Other A R Specialist: Jose Procedure: Wide excision of melanoma, right heel, 2cm margins VAC Placement 5.5cm x 5.3cm wound [place] lymph node biopsy x2, right inguinal [place] lymph node biopsy x1, right popliteal Anesthesia: [...] put into a surg (more content not included)...[facility]06-09-2021 NotePre-procedure Verification and Time Out: Pre-Procedure Verification and Time Out: Procedure Locationprocedure area [facility] - Pre-procedure Verificationcompleted TIME OUT - Final Verificationcompleted DEBRIEFcompleted General Information: Anesthesia Critical Care: Non-Anesthesia Date/Time of Procedure: 07-May-2021 Post-Procedure Diagnosis: Melanoma Procedure Name: Radiotracer injection for lymphoscintigraphy Findings: grossly normal anatomy Procedure performed by: nv A R Specialist(s): none Estimated Blood Loss (mL): none Specimen: [...] the procedure without a resident Electronic Signatures: Hussein Bennett) (Signed 07-May-2021 08:34) Authored: Pre-procedure Verification and Time Out, General Information, Procedure Details, Note Completion Last Updated: 07-May-2021 08:34 by Hussein Bennett)[facility]06-09-2021 NoteHistory of Present Illness: Admission Reason: Wide excision right heel melanoma [...] criteria for malignant transformation and presumably is screening representative of the site of the patients histologically confirmed primary malignant melanoma. 3. No other quantitatively significant hypermetabolic abnormalities are noted. There is no definitive scintigraphic evidence of distant metastatic disease. Mr. Epps discussed treatment plan options with his oncologic surgeon, Dr. 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 Social History , father of 2 [...] Patient evaluated, and record sent to anesthesia. Signatures/Attestation/Certification: Note Completion: I am a: Advanced Practice [...] SLNB. Integra graft, and VAC placement. The [id number] had a PET/CT that did not identify distant disease. He was seen by Dr. Penaloza in Plastic Surgery for consideration of wound closure options. The (more content not included)...[facility] 04-12-2021 History of Present illness Narrative* Evaluate right heel, H/O malignant melanoma of right heel. Combo case with Dr. Beltran. * Patient presents for discussion of reconstructive options. He has diagnosis of malignant melanoma which will require excision by Dr. Beltran. He presents for review of surgical options. In brief this has been growing over the last months to year and biopsy shows lesion that will require resectionwith wide margins. He is otherwise quite healthy and active. * He is a non smoker * Constitutional: Patient is in no acute distress, conversant , well groomed * Eyes: anicteric sclerae, moist conjunctivae, EOMI * ENT/Face: Mucous membranes moist, Nares patent without evidence of external obstruction * Neck: Trachea midline; Full range of motion at neck * Lungs: normal respiratory effort, no wheezing or abnormal breath sounds on room air * MSK: No contractures or spasticity of upper or lower extremities, no gross muscle wasting noted in upper or lower extremities * Skin: Normal temperature, turgor and texture; no lesions noted other than described, heel lesion with small area of ulceration, pigment changes noted, he has no other surgical scars on lower leg or foot * Psych: Appropriate affect, no aberrant thought process on discussion of primary complaints * Diagnosis: heel melanoma * Planned Intervention: * We discussed options for reconstruction including secondary intention, grafting and flaps. I will discuss more with Dr. Bennett and will likely plan for a staged reconstruction. I will have the patient back in office prior to definitive reconstruction. * A total of 30 minutes were spent with the patient during this encounter and over half of that time was spent on counseling and coordination of care. This included face to face time and non face to face time on day of visit reviewing medical history and chart. * The indications and contraindications for the proposed intervention were discussed with the patient. The natural history of pathology if untreated was also reviewed with the patient. The option for no intervention was discussed with the patient, including the likely course if no intervention was per formed. * Risks of the intervention including bleeding, infection, damage to neurovascular structures, need for revision or re-operation were discussed. Risks of anesthesia up to and including mortality were reviewed. -[facility] Work Phone: [phone]) [phone] History of Present illness Narrative* Mr. Epps is a 81-year-old male referred by Dr. 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 The patient reports that he has had a lesionon his heel for about a year that was treated as a plantar wart by his oyster culler. Due to lack of he aling and an episode of bleeding 3 months [...] site. The patient has not seen a caving guide but denies any other lesions of concern on his lower extremity or elsewhere on his body. * Surgery 05/07/2021 wide excision right heel melanoma with a 2 cm margin, Integra graft placement, VACplacement. Right inguinal sentinel lymph node biopsy. * Pathology residual melanoma at the right heel with a depth of 1.3 mm. No microsatellitosis. 1 of 2 inguinal sentinel lymph nodes were involved, 0.02 mm deposit with no extracapsular extension. 01 popliteal lymph nodes involved * 06/17/2021 wound check. The patient returns reporting improvement [...] Souza who will be treating with adjuvant immunotherapy * ROS: * The patient has good performance status and is active daily. * Cardiac: No chest pain, palpitations or heart attacks * Pulmonary: No asthma, bronchitis, or COPD * HEENT: Seasonal allergies that cause sneezing fits every morning * GI: No constipation, diarrhea, or bloody bowel movements * : No changes in his urinary habits recently * Musculoskeletal: The patient continues with the surgical boot and VAC dressing * Skin: Groin redness and swelling has resolved. Small swelling at the drain site * Heme: No bleeding or thrombosis issues * Lymph: No swollen lymph glands * Psych: No reported anxiety or depression * All other systems reviewed and negative * Physical exam: * General: No acute distress. Healthy appearing 81-year-old man * HEENT: Moist oral mucosa, normocephalic * CV: RRR, Vitals reviewed * Pulmonary: No respiratory distress. No use of accessory muscles. No audible wheeze * GI: Soft, non-distended. * Lymphatics: Small swelling in the right groin without tenderness or erythema. * Skin: The VAC was taken down and the heel wound was evaluated. The base of the wound is healing very well. He has a good base of granulation without evidence of infection. Redressed with vaseline gauze * Neuro: No gross sensorimotor deficits * Extremities: No leg swelling [facility] Work Phone: [phone] History of Present illness Narrative* Mr. Epps is a 81-year-old male referred by Dr. 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 The patient reports that he has had a lesionon his heel for about a year that was treated as a plantar wart by his oyster culler. Due to lack of he aling and an episode of bleeding 3 months [...] site. The patient has not seen a caving guide but denies any other lesions of concern on his lower extremity or elsewhere on his body. * Surgery 05/07/2021 wide excision right heel melanoma with a 2 cm margin, Integra graft placement, VACplacement. Right inguinal sentinel lymph node biopsy. * Pathology residual melanoma at the right heel with a depth of 1.3 mm. No microsatellitosis. 1 of 2 inguinal sentinel lymph nodes were involved, 0.02 mm deposit with no extracapsular extension. 01 popliteal lymph nodes involved * 06/17/2021 wound check. The patient returns reporting improvement [...] Souza who will be treating with adjuvant immunotherapy * ROS: * The patient has good performance status and is active daily. * Cardiac: No chest pain, palpitations or heart attacks * Pulmonary: No asthma, bronchitis, or COPD * HEENT: Seasonal allergies that cause sneezing fits every morning * GI: No constipation, diarrhea, or bloody bowel movements * : No changes in his urinary habits recently * Musculoskeletal: The patient continues with the surgical boot and VAC dressing * Skin: Groin redness and swelling has resolved. Small swelling at the drain site * Heme: No bleeding or thrombosis issues * Lymph: No swollen lymph glands * Psych: No reported anxiety or depression * All other systems reviewed and negative * Physical exam: * General: No acute distress. Healthy appearing 81-year-old man * HEENT: Moist oral mucosa, normocephalic * CV: RRR, Vitals reviewed * Pulmonary: No respiratory distress. No use of accessory muscles. No audible wheeze * GI: Soft, non-distended. * Lymphatics: Small swelling in the right groin without tenderness or erythema. * Skin: The VAC was taken down and the heel wound was evaluated. The base of the wound is healing very well. He has a good base of granulation without evidence of infection. Redressed with vaseline gauze * Neuro: No gross sensorimotor deficits * Extremities: No leg swelling [facility] Work Phone: 1([phone]) 617-484104-06-2021 History of Present illness Narrative* Mr. Epps is a 81-year-old male referred by Dr. 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 The patient reports that he has had a lesionon his heel for about a year that was treated as a plantar wart by his oyster culler. Due to lack of he aling and an episode of bleeding 3 months [...] site. The patient has not seen a caving guide but denies any other lesions of concern on his lower extremity or elsewhere on his body. * Surgery 05/07/2021 wide excision right heel melanoma with a 2 cm margin, Integra graft placement, VACplacement. Right inguinal sentinel lymph node biopsy. * Pathology residual melanoma at the right heel with a depth of 1.3 mm. No microsatellitosis. 1 of 2 inguinal sentinel lymph nodes were involved, 0.02 mm deposit with no extracapsular extension. 01 popliteal lymph nodes involved * 06/03/2021 post hospital visit. The patient was admitted [...] noting a negative work-up per the patient's report. * The patient continues with heel VAC dressings twice a week. * The patient also saw Dr. Souza in medical oncology who will plan to start adjuvant immunotherapyafter complete resolution of the groin infection. * ROS: * The patient has good performance status and is active daily. * Cardiac: No chest pain, palpitations or heart attacks * Pulmonary: No asthma, bronchitis, or COPD * HEENT: Seasonal allergies that cause sneezing fits every morning * GI: No constipation, diarrhea, or bloody bowel movements * : No changes in his urinary habits recently * Musculoskeletal: The patient continues with toe-touch weightbearing on the right lower extremity although he is allowed to put some weight on the heel. * Skin: Groin redness and swelling has decreased. Right groin seroma catheter * Heme: No bleeding or thrombosis issues * Lymph: No swollen lymph glands * Psych: No reported anxiety or depression * All other systems reviewed and negative * Physical exam: * General: No acute distress. Healthy appearing 81-year-old man * HEENT: Moist oral mucosa, normocephalic * CV: RRR, Vitals reviewed * Pulmonary: No respiratory distress. No use of accessory muscles. No audible wheeze * GI: Soft, non-distended. * Lymphatics: The patient had a seroma catheter removed today due to low output. His surrounding tissues still have a small amount of fullness along the prior incision however no fluctuance. This appears to be induration. The surrounding skin is resolving its redness and is much better than at the time of discharge from the hospital * Skin: The VAC was taken down and the heel wound was evaluated. The base of the wound is healing very well. He has a good base of granulation without evidence of infection. * Neuro: No gross sensorimotor deficits * Extremities: No leg swelling [id number] 150 Work Phone: Chief complaint+Reason for visit Narrative* Chief Complaint 3 WKS - LABS - KEYTR UDA 3 MO S/P [facility] PER MMM LYMPHATIC REFERRAL/RIGHT HEEL. RX HERE. 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 Ngo [facility] January 18, 2023 12:34pm Note Date/Time January 18, 2023 12:30pm [facility] Medical Records Department [address] [place] [id number] Emergency Department Summary 01/18/23 MR#: [id number] Acct: [id number] Name: EMPERATRIZ EPPS Rep #:[id number] : [id number] 83 From: Samson Ngo MD PCP: Dr. Anurag Dolan MD Status:REG ER Location: ED HPI History of Present Illness Chief Complaint: Upper Extremity Injury Detail of Chief Complaint: Anterior left upper chest pain and shoulder pain Informant: patient Occured/Mechanism Comment: Patient presents with atraumatic anterior upper left chest pain and shoulder pain that started yesterday. Onset/Context/Timing Context: Sudden Onset Timing: Intermittent Quality of Pain: Aching Location: Anterior left chest and shoulder Current Severity: Gone Maximum Severity: Moderate Worsened by: Movement of left upper extremity and breathing Relieved by: Remaining ill Associated Symptoms Associated Symptoms: Negative for Parasthesia, Weakness or Loss of Funtion Narrative Narrative: Patient is an 83-year-old male with history of melanoma left heel diagnosed several years ago. He had follow-up with his oncologist at [facility]. He felt a left inguinal node. The node was biopsied. He has recurrence of hismelanoma. He had surgery within the past month. He presently is on no chemo orradiation. He does have a port right subclavian noted. He denies fever, chills night sweats. He denies weight loss or weight gain. Hedenies headache, visual, ocular auditory symptoms. He denies rhinorrhea, congestion, postnasal drainage sore throat. He denies cough. He denies [place] exertion, orthopnea or PND. He denies abdominal pain, nausea, vomit diarrhea. He denies dysuria, frequency,urgency or hematuria. Patient states there is no change in the color of the fluid noted in his [place] drains. He has 2. Tetanus Immunization: 5-10 years Prior similar symptoms: Yes Recent Illness/Hospitalization: Yes [facility] Medical History Alcohol use Arthritis Melendrez's palsy Benign prostate hyperplasia Cancer Cough Creatinine elevation CRF (chronic renal failure) Drug rash Encounter for immunotherapy Essential hypertension Gastric reflux GERD (gastroesophageal reflux disease) Hemorrhoids History of brachytherapy Hx of malignant neoplasm of prostate Hypercholesterolemia Hypertension Hypokalemia Hypothyroidism (acquired) Hypothyroidism (acquired) Injury of back Malignant melanoma of right heel Mitral valve insufficiency Non-smoker Open wound of right heel Osteoarthritis of left knee PAF (paroxysmal atrial fibrillation) Personal history of colonic polyps PVC (premature ventricular contraction) Regional lymph node metastasis present Rheumatoid arthritis Sleep disorder Squamous cell carcinoma of skin Wears glasses Home Medications ipratropium bromide 21 mcg (0.03 %) nasal spray 2 spray intranasal PRN PRN Congestion 10/29/20 [History Last Taken Unknown] omeprazole 40 mg capsule,delayed release 40 mg PO DAILY 10/29/20 [History Last Taken 06/19/21 08:00 40 MG] multivitamin with minerals 1 ea PO DAILY 10/31/20 [History Last Taken Unknown] acetaminophen 500 mg tablet (Tylenol Extra Strength) 500 mg PO Q6H PRN Pain 06/05/21 [History Last Taken Unknown] triamcinolone acetonide 0.1 % topical cream 1 applic topical DAILY PRN affected area 09/15/21 [History Last Taken Unknown] amlodipine 5 mg tablet 5 mg PO DAILY 10/06/21 [History Last Taken Unknown] zinc 50 mg tablet 50 mg PO DAILY 12/29/21 [History Last Taken Unknown] calcium carbonate 600 mg calcium (1,500 mg) tablet (Calcium) 600 mg PO DAILY 01/20/22 [History Last Taken Unknown] apixaban 5 mg tablet (Eliquis) 5 mg PO BID #60 tabs 03/13/22 [Rx Last Taken Unknown] glucosamine sulfate 500 mg tablet (Glucosamine) 1,000 mg PO DAILY 03/13/22 [History Last Taken Unknown] betamethasone dipropionate 0.05 % topical cream 1 applic topical DAILY 05/05/22 [History Last Taken Unknown] diphenhydramine HCl 25 mg capsule (Benadryl) 25 mg PO QHS PRN 07/15/22 [History Last Taken Unknown] fexofenadine 60 mg tablet (Amina Allergy) 60 mg PO DAILY PRN 07/15/22 [History Last Taken Unknown] metoprolol tartrate 25 mg tablet 25 mg PO BID this is a dose increase. [place]! #180 tabs 07/16/22 [Rx Last Taken Unknown] alfuzosin 10 mg tablet,extended release 24 hr 10 mg PO DAILY 09/28/22 [History Last Taken Unknown] acetylcysteine 600 mg capsule ea PO 10/13/22 [History Last Taken Unknown] aflibercept 2 mg/0.05 mL intravitreal solution for injection (Eylea) 2 mg intravitreal ONCE 10/14/22 [History Last Taken Unknown] levothyroxine 112 mcg tablet 112 mcg PO DAILY #30 tabs 11/06/22 [Rx Last Taken Unknown] camphor-menthol 0.5 %-0.5 % lotion (Sarna Original) 1 applic topical BID-TID PRN101/13/22 [History Last Taken Unknown] cholecalciferol (vitamin D3) 25 mcg (1,000 unit) capsule 25 mcg PO DAILY 11/12/22 [History Last Taken Unknown] lidocaine-prilocaine 2.5 %-2.5 % topical cream 1 applic topical ONCE PRN Port access 30 days #30 grams 11/12/22 [Rx Last Taken Unknown] prednisone 20 mg tablet 60 mg PO DAILY #15 TABLETS 01/18/23 [Rx Last Taken Unknown] Allergy/AdvReac Type Severity Reaction Status Date / Time No Known Allergies Allergy Verified 01/18/23 10:30 Family History Brother Prostate cancer CVA (cerebral vascular accident) Brother Leukemia Father Hypertension Myocardial infarction Mother CHF (congestive heart failure) Surgical History History of root canal procedure Hx of colonoscopy Hx of discectomy Hx of foot operation Hx of hemorrhoidectomy Hx of rotator cuff surgery Social History Smoking Status: Never smoker second hand exposure: No alcohol intake: current alcohol intake frequency: a few times a month details: OCCASIONALLY substance use type: does not use well-balanced diet: about half the time caffeine: Yes Type: coffee Number of servings: 1 eating out: 1-3 times/week what type of physical activity do you participate in: bicycling frequency: 3-4 times per week duration: 15-30 minutes/day melany/baptism: Zoroastrianism seatbelt use: always do you feel safe at home: Yes ROS ROS ED Constitutional Constitutional ED: Denies chills, fever(s), subjective, sweats or weight loss Eyes Eyes: Denies blurry vision, change in vision or diplopia ENT ENT ED: Denies ear pain, rhinorrhea or sore throat Cardiovascular Cardiovascular: Reports chest pain; Denies orthopnea, palpitations, paroxysmal nocturnal dyspnea or racing heartbeat Respiratory/Chest Respiratory/Chest: Denies cough, dyspnea, dyspnea on exertion, orthopnea or paroxysmal nocturnal dyspnea Gastrointestinal Gastrointestinal: Denies abdominal pain, diarrhea, nausea or vomiting Genitourinary Genitourinary ED: Denies dysuria, hematuria or urinary frequency Musculoskeletal Musculoskeletal: Reports other Details: Left shoulder pain with movement. ; Denies back pain, myalgias or neck pain Integumentary Denies Abrasions or rash Neurologic Neurologic: Denies headache(s), paresthesias or weakness Endocrine Endocrinology: Denies cold intolerance or heat intolerance Hematologic/Lymphatic Hematologic/Lymphatic: Denies easy bleeding, easy bruising or lymphadenopathy Allergic/Immunologic Allergic/Immunologic ED: Denies mouth swelling, tongue swelling or urticaria EXAM Physical Exam Const Vital Signs: 01/18/23 10:26 01/18/23 10:31 01/18/23 11:06 Temperature 98.5 F Temperature Source Oral Pulse Rate 72 69 Respiratory Rate 14 18 Respiratory Effort Normal Blood Pressure 131/94 H Blood Pressure Mean 106 Pulse Ox 98 98 Oxygen Delivery Method Room Air Room Air Positive well nourished, well developed and obese General Appearance ED: well developed and NAD; Negative for cyanotic or diaphoretic Nutritional Appearance: obese HEENT Reports moist mucous membranes HEENT Narrative: Ears normal. Nares patent. There is no drainage. Posterior pharynx is normal. normocephalic and atraumatic Eyes PERRL and EOMs intact bilaterally Neck full ROM and supple Neck Narrative: Trachea is midline. There is no cervical lymphadenopathy. Chest Wall inspection of chest normal and palpation of chest normal Chest Narrative: Patient reports reproducible chest pain anterior left upper chest and left shoulder. Resp normal respiratory effort and clear to auscultation bilaterally Effort and Inspection: pain with movement LUE Cardio regular rate, regular rhythm, S1 normal heart sound, S2 normal heart sound and no murmurs GI non-tender, non-distended and no masses Palpation: soft Back/Spine no CVA tenderness Cervical Spine: Negative for cervical spine tenderness Thoracic Spine / Upper Back: Negative for thoracic spinal tenderness Extremity normal to inspection and full ROM Extremity Narrative: Axillary, median, radial and ulnar function intact. Radial pulses palpable. Neuro oriented x3, CN's II-XII intact bilaterally and moves all extremities Sensorium / Orientation: alert Psych mental status grossly normal Skin General Skin Exam: Negative for petechiae Lesions: no lesions Rashes: no rashes Trauma: no lacerations or abrasions MDM MDM MDM Narrative Medical decision making narrative: With pleuritic chest pain recent surgery history of melanoma need to consider pulmonary embolus. Pretest probability low to moderate. For this reason D-dimer was ordered. CBC was obtained to assess for white count and differential as well as H&H. Basic metabolic panel was ordered. This was obtained to assessglucose, CO2 anion gap. This was obtained to determine if CTA is contraindicated if needed. Prior records were obtained to confirm patient's recent surgery and diagnosis ofmelanoma. Also to evaluate his lab results compared to most recent obtained at outside facility. EKG was not obtained since symptoms are not consistent with cardiac. Because patient is on long-term anticoagulant he was treated with prednisone forhis pleurisy versus NSAIDs. Also, patient has prerenal azotemia. Lab Data Attestation: I reviewed the patient's lab results. Lab results narrative: White count is elevated which is nonspecific. D-dimer is normal at 0.44. Basicmetabolic panel is remarked for glucose of 123 and a BUN/creatinine ratio of 31:1. Patient has evidence of prerenal azotemia. Labs: Laboratory Results - last 24 hr 01/18/23 01/18/23 01/18/23 11:05 11:05 11:05 WBC 16.4 H RBC 4.23 L Hgb 13.6 Hct 40.0 MCV 94.6 H MCH 32.2 H MCHC 34.0 RDW Std Deviation 42.3 RDW Coeff of Halley 12.1 Plt Count 378 MPV 9.3 Immature Gran % (Auto) 1.300 H Neut % (Auto) 87.9 H Lymph % (Auto) 4.0 L Nye % (Auto) 6.5 Eos % (Auto) 0.1 Baso % (Auto) 0.2 Absolute Neuts (auto) 14.4 H Absolute Lymphs (auto) 0.65 L Nucleated RBC % 0 D-Dimer Quant (PE/DVT) 0.44 Sodium 137 Potassium 3.9 Chloride 105 Carbon Dioxide 25.0 Anion Gap 7 BUN 32 H Creatinine 1.03 Estim Creat Clear Calc 49.90 Est GFR (MDRD) Af Amer 89 Est GFR (MDRD) Non-Af 74 BUN/Creatinine Ratio 31.1 H Glucose 123 H Calcium 9.2 Radiography Diagnostic Testin view chest x-ray reveals port right subclavian. There is no effusion, infiltrate or cephalization. Inspiration is limited. Cardiac silhouette and size unremarkable. There is no evidence of pneumothorax. Rhythm Strip Rhythm Strip: Sinus Rhythm Rate: 66 Ectopy: None Discharge Plan Triage Chief Complaint: Upper Extremity Injury Other Complaint: Chest Pain General Illness ED Provider: Samson Ngo Dx/Rx/DC Orders Clinical Impression: Pleuritic chest pain, Rheumatoid arthritis, Hypercholesterolemia, Hypertension,Acute pain of left shoulder, History of melanoma, Acute prerenal azotemia, Anticoagulant long-term use Instructions: ED Pleurisy Prescriptions: New prednisone 20 mg tablet 60 mg PO DAILY Qty: 15 0RF No Action omeprazole 40 mg capsule,delayed release(DR/EC) 40 mg PO DAILY ipratropium bromide 0.03 % spray,non-aerosol 2 spray INTRANASAL PRN PRN (Reason: Congestion) acetaminophen [Tylenol Extra Strength] 500 mg tablet 500 mg PO Q6H PRN (Reason: Pain) triamcinolone acetonide 0.1 % cream 1 applic topical DAILY PRN (Reason: affected area) amlodipine 5 mg tablet 5 mg PO DAILY zinc 50 mg tablet 50 mg PO DAILY calcium carbonate [Calcium 600] 600 mg calcium (1,500 mg) tablet 600 mg PO DAILY Eliquis 5 mg tablet 5 mg PO BID Qty: 60 11RF acetylcysteine 600 mg capsule PO Label Comments: TAKE 1 CAPSULE BY MOUTH TWICE DAILY fexofenadine [Amina Allergy] 60 mg tablet 60 mg PO DAILY PRN diphenhydramine HCl [Benadryl] 25 mg capsule 25 mg PO QHS PRN alfuzosin 10 mg tablet extended release 24 hr 10 mg PO DAILY Rx Instructions: administer after the same meal each day Eylea 2 mg/0.05 mL solution 2 mg intravitreal ONCE Sarna Original 0.5-0.5 % lotion 1 applic topical BID-TID PRN cholecalciferol (vitamin D3) 25 mcg (1,000 unit) capsule 25 mcg PO DAILY multivitamin with minerals 1 EACH tablet 1 ea PO DAILY betamethasone dipropionate 0.05 % Cream 1 applic TOPICAL DAILY glucosamine sulfate [Glucosamine] 500 mg tablet 1,000 mg PO DAILY metoprolol tartrate 25 mg tablet 25 mg PO BID Qty: 180 3RF levothyroxine 112 mcg tablet 112 mcg PO DAILY Qty: 30 11RF lidocaine-prilocaine 2.5-2.5 % cream 1 applic topical ONCE PRN (Reason: Port access ) 30 Days Qty: 30 2RF Primary Care Provider: Anurag Dolan Referrals: Anurag Dolan MD [Primary Care Provider] - 1 Week if not improving Disposition Disposition: Home, Self Care What to do if you have Problems For any increased pain, shortness of breath, bleeding, nausea or vomiting, chestpain, or any unexpected problems, contact your Primary Care Provider. Call [facility] ([phone]) or report to the closest Emergency Room. Call 911 if necessary. 01/18/23 1234 <Electronically signed by Samson Ngo MD> Cosigner Signature (if applicable): CC: Dr. Anurag Dolan MD ~ Signed [facility] Work Phone: Evaluation note* Skin: Right groin with worsening area of erythema and induration, tender to palpation. Right groin Seroma-Cath with serous output. Right groin incision well healed. Right popliteal incision well healed. Right heel with wound vac in place, holding suctionEyes: EOMI, sclera anictericRespiratory/Thorax: Nonlabored respirations on RAExtremities: No LE edemaGastrointestinal: Soft, nontender, nondistendedMusculoskeletal: MAENeurological: No focal deficitsCardiovascular: RRRConstitutional: Awake, alert, uncomfortable 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 CRF (chronic renal failure) chronic Hx of malignant neoplasm of prostate chronic Hypothyroidism (acquired) ch ronic Drug rash acute 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 CRF (chronic renal failure) chronic Hx of malignant neoplasm of prostate chronic Hypothyroidism (acquired) ch ronic Malignant melanoma of right heel acute Open wound of right heel acu te Drug rash acute 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 CRF (chronic renal failure) chronic Hx of malignant neoplasm of prostate chronic Hypothyroidism (acquired) ch ronic Drug rash acute Encounter for immunotherapy acute 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 Hypothyroidism (acquired) ch ronic Atrial fibrillation, new onset acute Hypokalemia acute Vomiting acute [facility] Work Phone: Evaluation note* Diagnosis Onset Date Resolution Status Blurry vision acute 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 CRF (chronic renal failure) chronic Hx of malignant neoplasm of prostate chronic Hypothyroidism (acquired) ch ronic Hypothyroidism (acquired) ch ronic Cough acute Immunotherapy encounter acut e 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 CRF (chronic renal failure) chronic Hx of malignant neoplasm of prostate chronic Drug rash acute 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 CRF (chronic renal failure) chronic Hx of malignant neoplasm of prostate chronic Hypothyroidism (acquired) ch ronic Drug rash acute 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 CRF (chronic renal failure) chronic Hx of malignant neoplasm of prostate chronic Hypothyroidism (acquired) ch ronic Malignant melanoma of right heel acute Open wound of right heel acu te Drug rash acute 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 CRF (chronic renal failure) chronic Hx of malignant neoplasm of prostate chronic Hypothyroidism (acquired) ch ronic Drug rash acute Encounter for immunotherapy acute 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 Hypothyroidism (acquired) ch ronic Atrial fibrillation, new onset acute Hypokalemia acute Malignant melanoma of right heel acute Vertigo acute Vomiting acute CRF (chronic renal failure) chronic Hypothyroidism (acquired) ch ronic [facility] Work Phone: Evaluation note* Diagnosis Onset Date Resolution Status Cough acute Immunotherapy encounter acut e Regional lymph node metastasis present acute Hx of malignant neoplasm of prostate chronic Drug rash acute Regional lymph node metastasis present acute Hx of malignant neoplasm of prostate chronic Drug rash acute Regional lymph node metastasis present acute Hx of malignant neoplasm of prostate chronic Open wound of right heel acu te Drug rash acute Regional lymph node metastasis present acute Hx of malignant neoplasm of prostate chronic Drug rash acute Encounter for immunotherapy acute Regional lymph node metastasis present acute Vertigo acute Atrial fibrillation, new onset resolved Hypokalemia resolved Drug rash acute Encounter for immunotherapy acute Regional lymph node metastasis present acute [facility] Work Phone: Evaluation note* Diagnosis Onset Date Resolution Status Drug rash acute Hx of malignant neoplasm of prostate chronic 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 Drug rash acute Hx of malignant neoplasm of prostate chronic 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 Open wound of right heel acu te Malignant melanoma of right heel chronic Drug rash acute Hx of malignant neoplasm of prostate chronic 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 Drug rash acute Encounter for immunotherapy acute 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 Vertigo acute Malignant melanoma of right heel chronic Atrial fibrillation, new onset resolved Hypokalemia resolved Drug rash acute Encounter for immunotherapy acute 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 Chest pain acute Essential hypertension acute New onset a-fib acute Drug rash acute Hx of malignant neoplasm of prostate chronic 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 [facility] Work Phone: Evaluation note* Diagnosis Onset Date Resolution Status Drug rash acute Hx of malignant neoplasm of prostate chronic 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 Hypothyroidism (acquired) ac [place] Drug rash acute Hx of malignant neoplasm of prostate chronic 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 Drug rash acute Hx of malignant neoplasm of prostate chronic 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 Drug rash acute Hx of malignant neoplasm of prostate chronic 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 Drug rash acute Hx of malignant neoplasm of prostate chronic 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 Essential hypertension acute PAF (paroxysmal atrial fibrillation) acute PVC (premature ventricular contraction) acute [facility] Work Phone: Evaluation note* Diagnosis Onset Date Resolution Status Hypothyroidism (acquired) ac [place] Drug rash acute Hx of malignant neoplasm of prostate chronic 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 Drug rash acute Hx of malignant neoplasm of prostate chronic 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 Drug rash acute Hx of malignant neoplasm of prostate chronic 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 Drug rash acute Hx of malignant neoplasm of prostate chronic 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 Essential hypertension acute PAF (paroxysmal atrial fibrillation) acute PVC (premature ventricular contraction) acute Drug rash acute Hx of malignant neoplasm of prostate chronic 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 [facility] Work Phone: Evaluation note* Diagnosis Onset Date Resolution Status Drug rash acute Hx of malignant neoplasm of prostate chronic 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 Essential hypertension acute PAF (paroxysmal atrial fibrillation) acute PVC (premature ventricular contraction) acute Drug rash acute Hx of malignant neoplasm of prostate chronic 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 Essential hypertension acute Mitral valve insufficiency a cute PAF (paroxysmal atrial fibrillation) acute PVC (premature ventricular contraction) acute [facility] Work Phone: Evaluation note* Diagnosis Onset Date Resolution Status Essential hypertension acute Mitral valve insufficiency a cute PAF (paroxysmal atrial fibrillation) acute PVC (premature ventricular contraction) acute Hypothyroidism (acquired) ac [place] Drug rash acute Hx of malignant neoplasm of prostate chronic 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 Drug rash acute Hx of malignant neoplasm of prostate chronic 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 Inguinal adenopathy acute Malignant melanoma of right heel chronic [facility] Work Phone: Evaluation note* Diagnosis Onset Date Resolution Status Essential hypertension acute Mitral valve insufficiency a cute PAF (paroxysmal atrial fibrillation) acute PVC (premature ventricular contraction) acute Hypothyroidism (acquired) ac [place] Drug rash chronic Hx of malignant neoplasm of prostate chronic 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 Drug rash chronic Hx of malignant neoplasm of prostate chronic 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 Inguinal adenopathy acute Malignant melanoma of right heel chronic Drug rash chronic Hx of malignant neoplasm of prostate chronic 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 [facility] Work Phone: Evaluation note* Diagnosis Onset Date Resolution Status Hypothyroidism (acquired) ac [place] Drug rash chronic Hx of malignant neoplasm of prostate chronic 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 Drug rash chronic Hx of malignant neoplasm of prostate chronic 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 pleasant, conversant. 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 Allergic rhinitis acute Atrial fibrillation acute BPH (benign prostatic hyperplasia) acute Cellulitis of chest wall acu te Debility acute GERD (gastroesophageal reflux disease) acute Hypothyroidism acute Macular degeneration acute Metastatic melanoma acute Prostate cancer acute Rheumatoid arthritis acute Thoracic abscess acute Hypertension chronic 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 [facility] Work Phone: Evaluation note* Diagnosis Onset Date Resolution Status Drug rash chronic Hx of malignant neoplasm of prostate chronic 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 Allergic rhinitis acute Atrial fibrillation acute BPH (benign prostatic hyperplasia) acute Debility acute GERD (gastroesophageal reflux disease) acute Hypothyroidism acute Macular degeneration acute Prostate cancer acute Rheumatoid arthritis acute Hypertension chronic Cellulitis of chest wall res olved Metastatic melanoma resolved Thoracic abscess resolved 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 [facility] Work Phone: Evaluation note* Diagnosis Onset Date Resolution Status Drug rash chronic Hx of malignant neoplasm of prostate chronic 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 Allergic rhinitis acute Atrial fibrillation acute BPH (benign prostatic hyperplasia) acute Debility acute GERD (gastroesophageal reflux disease) acute Hypothyroidism acute Macular degeneration acute Prostate cancer acute Rheumatoid arthritis acute Hypertension chronic Cellulitis of chest wall res olved Metastatic melanoma resolved Thoracic abscess resolved 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 Imbalance acute Left flank pain acute Hx of malignant neoplasm of prostate chronic 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 [facility] Work Phone: Evaluation note* Diagnosis Onset Date Resolution Status Allergic rhinitis acute Atrial fibrillation acute BPH (benign prostatic hyperplasia) acute Debility acute GERD (gastroesophageal reflux disease) acute Hypothyroidism acute Macular degeneration acute Prostate cancer acute Rheumatoid arthritis acute Hypertension chronic Cellulitis of chest wall res olved Metastatic melanoma resolved Thoracic abscess resolved 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 Imbalance acute Left flank pain acute Hx of malignant neoplasm of prostate chronic 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 Hx of malignant neoplasm of prostate chronic 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 [facility] Work Phone: Evaluation note* Diagnosis PVC (premature ventricular contraction)- Primary Other premature beats PAF (paroxysmal atrial fibrillation) (CMS/HCC) (HCC) Atrial fibrillation Paroxysmal atrial fibrillation (CMS/HCC) (HCC) Atrial [facility] Onset Date Resolution Status Allergic rhinitis acute Atrial fibrillation acute BPH (benign prostatic hyperplasia) acute Debility acute GERD (gastroesophageal reflux disease) acute Hypothyroidism acute Macular degeneration acute Prostate cancer acute Rheumatoid arthritis acute Hypertension chronic Cellulitis of chest wall res olved Metastatic melanoma resolved Thoracic abscess resolved 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 Imbalance acute Left flank pain acute Hx of malignant neoplasm of prostate chronic 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 Hx of malignant neoplasm of prostate chronic 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 [facility] Work Phone: Evaluation note* Diagnosis Onset Date Resolution Status 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 Hx of malignant neoplasm of prostate chronic 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 [facility] Work Phone: Evaluation note* Diagnosis Onset Date Resolution Status 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 Hx of malignant neoplasm of prostate chronic 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 [facility] Work Phone: Evaluation note* Diagnosis Onset Date Resolution Status 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 acute Hx of malignant neoplasm of prostate chronic 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 Liver lesion acute Hx of malignant neoplasm of prostate chronic 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 [facility] Work Phone: Evaluation note* Diagnosis Onset Date Resolution Status Hx of malignant neoplasm of prostate chronic 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 Liver lesion acute Hx of malignant neoplasm of prostate chronic 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 [facility] Work Phone: Evaluation note* Diagnosis Onset Date Resolution Status Liver lesion acute Hx of malignant neoplasm of prostate chronic 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 Essential hypertension acute Mitral valve insufficiency a cute PAF (paroxysmal atrial fibrillation) acute PVC (premature ventricular contraction) acute Hypothyroidism chronic 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 Hx of malignant neoplasm of prostate chronic 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 [facility] Work Phone: Evaluation note* Diagnosis Onset Date Resolution Status Liver lesion acute Hx of malignant neoplasm of prostate chronic 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 Essential hypertension acute Mitral valve insufficiency a cute PAF (paroxysmal atrial fibrillation) acute PVC (premature ventricular contraction) acute Hypothyroidism chronic Metastasis to liver acute Hx of malignant neoplasm of prostate chronic 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 Hx of malignant neoplasm of prostate chronic 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 [facility] Work Phone: Evaluation note* Diagnosis PAF (paroxysmal atrial fibrillation) (HCC) Atrial [facility] Onset Date Resolution Status Hx of malignant neoplasm of prostate chronic 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 Hx of malignant neoplasm of prostate chronic 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 Encounter for education acut e Hx of malignant neoplasm of prostate chronic 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 Immunotherapy encounter acut e Hx of malignant neoplasm of prostate chronic 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 Hx of malignant neoplasm of prostate chronic 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 Hx of malignant neoplasm of prostate chronic 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 Hx of malignant neoplasm of prostate chronic 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 May [...] the color of the drainage should become lead generator (red to pink to yellow). This drain [...] yesHome Care Agency: Other (with phone number), [facility] Skilled Disciplines Ordered: RN/LPNFace to Face Encounter Completed: yesDate of Encounter: [id number] Necessity for Homecare (based on clinical findings):Short-term [...] Referral: follow up appointmentScheduled Date/Time: 03-Jun-2021 14:30Location: [facility]: [address] [address]Phone Number: [phone] [facility] instructionsAmbulatory Orders* BMV Disability Parking Time Frame: 3 Years, Location: None Selected [facility] Work Phone: Hospital Discharge instructions No data available for this section [facility] Progress note No data available for this section [facility] Reason for referral (narrative)* Name Reason for referral NA NA Dept. of Dermatology Reason for referral (narrative)* Reason for Referral: incision and drainage of left sternoclavicular abscess, debridement of left clavicle and sternum [facility]narrative)No reason for referral information availableWWilson [facility] Work Phone: Instructions Instruction Description Start Date Patient advised to follow-up with Primary Care Physician for BMI management. Advance Directives No Advanced Directives Records Found Advance Directive Response Recorded Date/ Time Advance Directives on File No February 09, 2022 12:14pm Name of Medical Power of Automotive Sales Specialist mecca magdaleno February 09, 2022 12:14pm Advance Directives Yes February 09 12:14pm Living Will No February 20, 2022 6:22pm Power of Automotive Sales Specialist No February 20 6:22pm Advance Directive Response Recorded Date/ Time Advance Directives on File No February 09, 2022 12:14pm Name of Medical Power of Automotive Sales Specialist mecca torres r February 09, 2022 12:14pm Advance Directives Yes February 09 12:14pm Living Will No February 20, 2022 9:28pm Power of Automotive Sales Specialist No February 20 9:28pm Advance Directive Response Recorded Date/ Time Advance Directives Yes March 02 1:08pm Living Will No March 02, 2022 1:08pm Power of Automotive Sales Specialist No March 02 1:08pm Advance Directive Response Recorded Date/ Time Advance Directives Yes March 23 11:59am Living Will No March 23, 2022 11:59am Power of Automotive Sales Specialist No March 23 11:59am Advance Directive Response Recorded Date/ Time Advance Directives on File No May 25, 2022 11:37am Name of Medical Power of Automotive Sales Specialist mecca torres r May 25, 2022 11:37am Advance Directives Yes May 25 11:37am Living Will No Charlene 27th, 2022 11:37am Power of Automotive Sales Specialist No May 25 11:37am Advance Directive Response Recorded Date/ Time Advance Directives on File No May 25, 2022 10:37am Name of Medical Power of Automotive Sales Specialist mecca magdaleno May 25, 2022 10:37am Advance Directives Yes May 25 10:37am Living Will No May 25, 2022 10:37am Power of Automotive Sales Specialist No May 25 10:37am Advance Directive Response Recorded Date/ Time Advance Directives on File No May 25, 2022 10:37am Name of Medical Power of Automotive Sales Specialist mecca epps May 25, 2022 10:37am Name of Medical Power of Automotive Sales Specialist MECCA EPPS, DAUGHTER January 18, 2023 10:31am Advance Directives Yes May 25 10:37am Living Will Yes January 18 023 10:31am Power of Automotive Sales Specialist Yes January 18, 2023 10:31am Advance Directive Response Recorded Date/ Time Advance Directives on File No May 25, 2022 10:37am Name of Medical Power of Automotive Sales Specialist mecca epps May 25, 2022 10:37am Name of Medical Power of Automotive Sales Specialist MECCA EPPS, DAUGHTER January 18, 2023 10:31am Name of Medical Power of Automotive Sales Specialist ? January 26, 2023 2:53pm Advance Directives Yes May 25 10:37am Living Will Yes January 26 023 2:53pm Power of Automotive Sales Specialist Yes January 26, 2023 2:53pm Advance Directive Response Recorded Date/ Time Advance Directives on File No May 25, 2022 11:37am Name of Medical Power of Automotive Sales Specialist mecca epps May 25, 2022 11:37am Name of Medical Power of Automotive Sales Specialist MECCA EPPS, DAUGHTER January 18, 2023 11:31am Name of Medical Power of Automotive Sales Specialist ? January 26, 2023 3:53pm Name of Medical Power of Automotive Sales Specialist Mecca Epps, daughter February 04, 2023 12:17pm Advance Directives Yes May 25 11:37am Living Will Yes February 04, 2023 12:17pm Power of Automotive Sales Specialist Yes February 04 12:17pm Advance Directive Response Recorded Date/ Time Advance Directives on File No May 25, 2022 11:37am Name of Medical Power of Automotive Sales Specialist mecca epps May 25, 2022 11:37am Name of Medical Power of Automotive Sales Specialist ? January 26, 2023 3:53pm Name of Medical Power of Automotive Sales Specialist Mecca Epps, daughter February 04, 2023 12:17pm Advance Directives Yes May 25 11:37am Living Will Yes February 04, 2023 12:17pm Power of Automotive Sales Specialist Yes February 04 12:17pm Advance Directive Response Recorded Date/ Time Advance Directives on File No May 25, 2022 11:37am Name of Medical Power of Automotive Sales Specialist mecca magdaleno May 25, 2022 11:37am Advance Directives Yes May 25 11:37am Living Will Yes February 04, 2023 12:17pm Power of Automotive Sales Specialist Yes February 04 12:17pm Advance Directive Response Recorded Date/ Time Advance Directives on File No May 25, 2022 10:37am Name of Medical Power of Automotive Sales Specialist mecca magdaleno May 25, 2022 10:37am Advance Directives Yes May 25 10:37am Living Will Yes February 04, 2023 11:17am Power of Automotive Sales Specialist Yes February 04 11:17am Advance Directive Response Recorded Date/ Time Advance Directives on File No Fernando osman 2023 3:25pm Name of Medical Power of Automotive Sales Specialist mecca magdaleno January 27, 2024 3:25pm Advance Directives Yes December 3:25pm Living Will Yes December, 3:25pm Power of Automotive Sales Specialist Yes January 27, 2024 3:25pm Advance Directive Response Recorded Date/ Time Living Will Yes June 08, 2024 2:21pm Do you have a Healthcare Pow er of Automotive Sales Specialist? Yes June 08, 2024 2:21pm Living Will Yes July 13 11:40am Do you have a Healthcare Pow er of Automotive Sales Specialist? Yes July 13, 2024 11:40am Advance Directives on File No Fernando osman 20th, 2025 1:12pm Living Will Yes January 18 025 1:12pm Do you have a Healthcare Pow er of Automotive Sales Specialist? Yes January 18, 2025 1:12pm Name of Medical Power of Automotive Sales Specialist mecca magdaleno January 18, 2025 1:12pm Advance Directives Yes December 1:12pm Advance Directive Response Recorded Date/ Time Living Will Yes June 08, 2024 2:21pm Do you have a Healthcare Power of Automotive Sales Specialist? Yes June 08, 2024 2:21pm Advance Directives on File No March 07, 2025 11:46am Living Will Yes March 07, 2025 11:46am Do you have a Healthcare Power of Automotive Sales Specialist? Yes March 07, 2025 11:46am Name of Medical Power of Automotive Sales Specialist mecca magdaleno March 07, 2025 11:46am Advance Directives Yes March 07 11:46am Advance Directive Response Recorded Date/ Time Advance Directives on File No March 07, 2025 11:46am Living Will Yes March 07, 2025 11:46am Do you have a Healthcare Pow er of Automotive Sales Specialist? Yes March 07, 2025 11:46am Name of Medical Power of Automotive Sales Specialist mecca magdaleno March 07, 2025 11:46am Advance Directives Yes March 07 11:46am Do you have a Healthcare Pow er of Automotive Sales Specialist? Yes April 30, 2025 3:42pm Name of Medical Power of Automotive Sales Specialist mecca magdaleno daughter April 30, 2025 3:42pm Assessments There may be information available, but it has not been provided by the sender. Review of System There may be information available, but it has not been provided by the sender. Family History No Family History Records Found Relationship Condition Age at Onset Recorded Date/T argelia brother Malignant neoplasm of prostate Unknown Cerebrovascular accident (CVA) Unknown brother Leukemia Unknown father Hypertension Unknown Myocardial infarction Unknown mother Congestive heart failure Unknown Chief Complaint Evaluate right heel, H/O malignant [...] Drain check following seromaDrain check following seroma Summary Purpose Chief Complaint and Reason for Visit Chief Complaint 3WKS LABS [facility] GZ-Llrxsui-HCG&CONSENT ONLY-BMS PT 3WKS LABS [facility] 3WKS LABS KEY[facility] 3 WKS - LABS - [facility] MELENOMA IV ONLY wound wound 3 WKS - LABS - KEY[facility] 3 WKS - LABS - [facility] KEYTRUDA AFIB WITH RVR Reason for Visit Blurry vision 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 CRF (chronic renal failure) Hx of malignant neoplasm of prostate Hypothyroidism (acquired) Hypothyroidism (acquired) Cough Immunotherapy encounter 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 CRF (chronic renal failure) Hx of malignant neoplasm of prostate Drug rash 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 CRF (chronic renal failure) Hx of malignant neoplasm of prostate Hypothyroidism (acquired) Drug rash 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 CRF (chronic renal failure) Hx of malignant neoplasm of prostate Hypothyroidism (acquired) Malignant melanoma of right heel Open wound of right heel Drug rash 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 CRF (chronic renal failure) Hx of malignant neoplasm of prostate Hypothyroidism (acquired) Drug rash Encounter for immunotherapy 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 Hypothyroidism (acquired) Atrial fibrillation, new onset Hypokalemia Vomiting Chief Complaint 3WKS LABS [facility] CV-Ierrtfc-ARF&CONSENT ONLY-BMS PT 3WKS LABS [facility] 3WKS LABS KEYTR[facility]DA 3 WKS - LABS - KEY[facility] MELENOMA IV ONLY wound wound 3 WKS - LABS - KEYTR[facility]DA 3 WKS - LABS - [facility] KEYTRUDA AFIB WITH RVR AFIB WITH RVR AFIB WITH RVR AFIB WITH RVR Reason for Visit Blurry vision 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 CRF (chronic renal failure) Hx of malignant neoplasm of prostate Hypothyroidism (acquired) Hypothyroidism (acquired) Cough Immunotherapy encounter 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 CRF (chronic renal failure) Hx of malignant neoplasm of prostate Drug rash 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 CRF (chronic renal failure) Hx of malignant neoplasm of prostate Hypothyroidism (acquired) Drug rash 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 CRF (chronic renal failure) Hx of malignant neoplasm of prostate Hypothyroidism (acquired) Malignant melanoma of right heel Open wound of right heel Drug rash 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 CRF (chronic renal failure) Hx of malignant neoplasm of prostate Hypothyroidism (acquired) Drug rash Encounter for immunotherapy 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 PT TO BRING RX Reason for Visit Cough Immunotherapy encounter Regional lymph node metastasis present Hx of malignant neoplasm of prostate Drug rash Regional lymph node metastasis present Hx of malignant neoplasm of prostate Drug rash Regional lymph node metastasis present Hx of malignant neoplasm of prostate Open wound of right heel Drug rash Regional lymph node metastasis present Hx of malignant neoplasm of prostate Drug rash Encounter for immunotherapy Regional lymph node metastasis present Vertigo Atrial fibrillation, new onset Hypokalemia Drug rash Encounter for immunotherapy Regional lymph node metastasis present Chief Complaint 3WKS LABS [facility] 3 WKS - LABS - [facility] MELENOMA IV ONLY wound wound 3 WKS - LABS - KEYTRUDA 3 WKS - LABS - [facility] AFIB WITH RVR AFIB WITH RVR AFIB WITH RVR AFIB WITH RVR AFIB WITH RVR 3WKS LABS [facility] VERTIGO. 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 Vertigo Malignant melanoma of right heel Atrial fibrillation, new onset Hypokalemia Drug rash Encounter for immunotherapy 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 RX HERE. 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 RX HERE. 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 Allergic rhinitis Atrial fibrillation BPH (benign prostatic hyperplasia) Cellulitis of chest wall Debility GERD (gastroesophageal reflux disease) Hypothyroidism Macular degeneration Metastatic melanoma Prostate cancer Rheumatoid arthritis Thoracic abscess Hypertension 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 Essential hypertension Mitral valve insufficiency PAF (paroxysmal atrial fibrillation) PVC (premature ventricular contraction) Hypothyroidism 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 Hx of malignant neoplasm of prostate 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 Chief Complaint RESTAGING MELANOMA RESTAGING MELANOMA 3 MO - LABS 1 WK PRIOR - REVIEW CT SCAN/BONE SCAN ABCESS 1 Y FU PORT DRAW 1 Y FU MALIGNANT MELANOMA OF SKIN, LIVER DISEASE 3 MO - NO LABS - REVIEW CT SCAN port flush C43.9 Malignant melanoma of skin, unspecified 2 WEEK, NO LABS, REVIEW BX Reason for Visit Liver lesion Hx of malignant neoplasm of prostate 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 Essential hypertension Mitral valve insufficiency PAF (paroxysmal atrial fibrillation) PVC (premature ventricular contraction) Hypothyroidism Metastasis to liver Hx of malignant neoplasm of prostate 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 Hx of malignant neoplasm of prostate 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 Chief Complaint MALIGNANT MELANOMA O F SKIN, LIVER DISEASE 3 MO - NO LABS - REVIEW CT SCAN C43.9 Malignant melanoma of skin, unspecified 2 WEEK, NO LABS, REVIEW BX CHEMO ED [place] - LABS - NIVO/IPILI C43.9 Malignant melanoma of skin, unspecified 3 WKS - LABS - NIVO/IPILI 3 WKS - LABS - IPI/NIVO 3 WKS - LABS - IPI/NIVO port flush Melinoma MELINOMA Reason for Visit Hx of malignant neop lasm of prostate 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 Hx of malignant neoplasm of prostate 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 Encounter for education Hx of malignant neoplasm of prostate 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 Immunotherapy encounter Hx of malignant neoplasm of prostate 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 Hx of malignant neoplasm of prostate 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 Hx of malignant neoplasm of prostate 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 Hx of malignant neoplasm of prostate 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 Chief Complaint Admit Date BILATERAL KNEES November 08, 2024 11:17am 4 WKS - LABS - NIVO November 23, 2024 12:11pm 6 m fu December 21, 2024 1 1:22am 3WKS LABS TX December 21, 2024 1 2:12pm MELYNOMIA January 08, 2025 10:24am MELANOMA January 11, 2025 7:13am 4 WKS - LABS - NIVO - REVIEW SCANS Febru jacqui 2024 9:33am 4 WKS - LABS - NIVO February 15, 2025 8:4 1am Amb Documentation February 20, 2025 12: 24pm LABS February 26, 2025 9:3 0am PORT DRAW February 28, 2025 10:3 5am Reason for Visit Admit Date Osteoarthritis of left knee October 11:17am Right knee DJD November 08, 2024 11:17am Encounter for immunotherapy October 12:11pm Hypokalemia November 23, 2024 12:11pm Malignant melanoma of right heel Decembe r 2023 12:11pm Metastasis to liver November 23, 2024 12:11pm Regional lymph node metastasis present D ecember 2023 12:11pm Essential hypertension December 21 11:22am PAF (paroxysmal atrial fibrillation) Novry 2024 11:22am Hx of malignant neoplasm of prostate Rasheed uary 2024 12:12pm Malignant melanoma of right heel December 21, 2024 12:12pm Metastasis to liver December 21, 2024 1 2:12pm Regional lymph node metastasis present J anuary 2024 12:12pm Hx of malignant neoplasm of prostate Feb ruary 2024 9:33am Malignant melanoma of right heel Februar y 2024 9:33am Metastasis to liver January 18, 2025 9:33am Regional lymph node metastasis present F ebruary 2024 9:33am Hx of malignant neoplasm of prostate Mar ch 2024 8:41am Malignant melanoma of right heel January [id number] 8:41am Metastasis to liver February 15, 2025 8:4 1am Regional lymph node metastasis present M arch 2024 8:41am Chief Complaint Admit Date 6 m fu December 21, 2024 1 1:22am 3WKS LABS TX December 21, 2024 1 2:12pm MELYNOMIA January 08, 2025 10:24am MELANOMA January 11, 2025 7:13am 4 WKS - LABS - NIVO - REVIEW SCANS Febru jacqui 2024 9:33am 4 WKS - LABS - NIVO February 15, 2025 8:4 1am Amb Documentation February 20, 2025 12: 24pm PORT DRAW February 28, 2025 10:3 5am 1 WK - LABS - NIVO March 07, 2025 9:36 am F/U - LABS March 12, 2025 9:3 0am 2 WEEK, LABS March 26, 2025 9:3 9am 2 WKS - LABS April 11, 2025 10:10 am LABS/BMP April 11, 2025 10:15 am Reason for Visit Admit Date Essential hypertension December 21 11:22am PAF (paroxysmal atrial fibrillation) Rasheed [facility] 2024 11:22am Hx of malignant neoplasm of prostate [facility] 2024 12:12pm Malignant melanoma of right heel December 21, 2024 12:12pm Metastasis to liver December 21, 2024 1 2:12pm Regional lymph node metastasis present J anuary 2024 12:12pm Hx of malignant neoplasm of prostate Feb ruary 2024 9:33am Malignant melanoma of right heel Februar y 2024 9:33am Metastasis to liver January 18, 2025 9:33am Regional lymph node metastasis present F ebruary 2024 9:33am Hx of malignant neoplasm of prostate Mar ch 2024 8:41am Malignant melanoma of right heel January 282024 8:41am Metastasis to liver February 15, 2025 8:4 1am Regional lymph node metastasis present M arch 2024 8:41am Nephritis March 07, 2025 9:36 am Hx of malignant neoplasm of prostate Apr il 2024 9:36am Malignant melanoma of right heel March [id number] 9:36am Metastasis to liver March 07, 2025 9:36 am Regional lymph node metastasis present A pril 2024 9:36am MEERA (acute kidney injury) March 12 9:30am Hx of malignant neoplasm of prostate Apr il 2024 9:30am Malignant melanoma of right heel February [id number] 9:30am Metastasis to liver March 12, 2025 9:3 0am Regional lymph node metastasis present A pril 2024 9:30am MEERA (acute kidney injury) March 26 9:39am Hx of malignant neoplasm of prostate Apr il 2024 9:39am Malignant melanoma of right heel February [id number] 9:39am Metastasis to liver March 26, 2025 9:3 9am Regional lymph node metastasis present A pril 2024 9:39am MEERA (acute kidney injury) April 11, 2025 10:10am Hx of malignant neoplasm of prostate April 11, 2025 10:10am Malignant melanoma of right heel March 10:10am Metastasis to liver April 11, 2025 10:10 am Regional lymph node metastasis present M ay 2024 10:10am Chief Complaint Admit Date MELYNOMIA January 08, 2025 10:24am MELANOMA January 11, 2025 7:13am 4 WKS - LABS - NIVO - REVIEW SCANS Febru jacqui 2024 9:33am 4 WKS - LABS - NIVO February 15, 2025 8:4 1am Amb Documentation February 20, 2025 12: 24pm PORT DRAW February 28, 2025 10:3 5am 1 WK - LABS - NIVO March 07, 2025 9:36 am F/U - LABS March 12, 2025 9:3 0am 2 WEEK, LABS March 26, 2025 9:3 9am 2 WKS - LABS April 11, 2025 10:10 am LABS/BMP April 11, 2025 10:15 am FEVER April 30, 2025 3:23p m Reason for Visit Admit Date Hx of malignant neoplasm of prostate Feb ruary 2024 9:33am Malignant melanoma of right heel Februar y 2024 9:33am Metastasis to liver January 18, 2025 9:33am Regional lymph node metastasis present F ebruary 2024 9:33am Hx of malignant neoplasm of prostate Mar ch 2024 8:41am Malignant melanoma of right heel January [id number] 8:41am Metastasis to liver February 15, 2025 8:4 1am Regional lymph node metastasis present M arch 2024 8:41am Nephritis March 07, 2025 9:36 am Hx of malignant neoplasm of prostate Apr il 2024 9:36am Malignant melanoma of right heel March 072024 9:36am Metastasis to liver March 07, 2025 9:36 am Regional lymph node metastasis present A pril 2024 9:36am MEERA (acute kidney injury) March 12 9:30am Hx of malignant neoplasm of prostate Apr il 2024 9:30am Malignant melanoma of right heel February [id number] 9:30am Metastasis to liver March 12, 2025 9:3 0am Regional lymph node metastasis present A pril 2024 9:30am MEERA (acute kidney injury) March 26 9:39am Hx of malignant neoplasm of prostate Apr il 2024 9:39am Malignant melanoma of right heel February [id number] 9:39am Metastasis to liver March 26, 2025 9:3 9am Regional lymph node metastasis present A pril 2024 9:39am MEERA (acute kidney injury) April 11, 2025 10:10am Hx of malignant neoplasm of prostate April 11, 2025 10:10am Malignant melanoma of right heel March 10:10am Metastasis to liver April 11, 2025 10:10 am Regional lymph node metastasis present M ay 2024 10:10am Additional Source Comments (unrecognized sect ion and content) No Status Records FoundNo Status Records FoundNo Status Records FoundNo Status Records FoundNo Status Records FoundNo Status Records FoundNo Status Records FoundNo Status Records Found INFORMATION SOURCE (unrecogn ized section and content) DATE CREATED AUTHOR 05/16/2021 [facility] DATE CREATED AUTHOR AUTHOR'S ORGANIZ ATION 03/13/2023 [facility] DATE CREATED AUTHOR AUTHOR'S ORGANIZ ATION 03/23/2023 [employer] DATE CREATED AUTHOR AUTHOR'S ORGANIZ ATION 11/12/2023 [facility] ([place]) DATE CREATED AUTHOR AUTHOR'S ORGANIZ ATION 01/26/2024 [facility] DATE CREATED AUTHOR AUTHOR'S ORGANIZ ATION 03/20/2025 [facility] DATE CREATED AUTHOR AUTHOR'S ORGANIZ ATION 04/29/2025 [facility] DATE CREATED AUTHOR AUTHOR'S ORGANIZ ATION 05/01/2025 [facility] <item><item><item> Privacy Markings (unrecogniz ed section and [...] you with the consent of such client. Goals (unrecognized section and content) Goals may be documented in a n alternate sectionGoals may be documented in an alternate sectionGoals may be documented in an alternate sectionGoals may be documented in an alternate sectionGoals may be documented in an alternate sectionGoals may be documented in an alternate sectionGoals may be documented in an alternate sectionGoals may be documented in an alternate sectionGoals may be documented in an alternate sectionGoals may be documented in an alternate sectionGoals may be documented in an alternate sectionGoals may be documented in an alternate sectionGoals may be documented in an alternate section No data available for this sectionGoals may be documented in an alternate sectionGoals may be documented in an alternate sectionGoals may be documented in an alternate sectionGoals may be documented in an alternate sectionGoals may be documented in an alternate sectionGoals may be documented in an alternate sectionGoals may be documented in an alternate sectionGoals may be documented in an alternate sectionGoals may be documented in an alternate sectionGoals may be documented in an alternate sectionGoals may be documented in an alternate section Care Teams (unrecognized sec tion and content) Team Status: Active Member Role Status Dates Dr. Anurag Dolan MD Family Provider Active Dr. Anurag Dolan MD Primary Care Provider Active Team Status: Inactive Member Role Status Dates Dr. Anurag Dolan MD Primary Care Provider, Referring P rovider Active Dr. Ab Ventura MD Attending Provider Active Team Status: Inactive Member Role Status Dates Dr. Anurag Dolan MD Primary Care Provider, Referring P rovider Active Caterina Bosch PA, PA Attending Provider Active Team Status: Inactive Member Role Status Dates Dr. Anurag Dolan MD Primary Care Provider, Referring P rovider Active Dr. Brianna Souza MD Attending Provider Active Team Status: Inactive Member Role Status Dates Dr. Anurag Dolan MD Primary Care Provider, Referring P rovider Active Dr. Molly Nance MD Attending Provider Active Team Status: Active Member Role Status Dates Dr. Anurag Dolan MD Primary Care Provider Active Dr. Brianna Souza MD Attending Provider, Referrin g Provider Active Dr. Jemal Mcdonald MD Other Provider Active Team Status: Inactive Member Role Status Dates Dr. Anurag Dolan MD Primary Care Provider Active Dr. Brianna Souza MD Attending Provider, Referrin g Provider Active Team Status: Inactive Member Role Status Dates Dr. Anurag Dolan MD Primary Care Provider Active Caterina Bosch PA, PA Attending Provider, Referr ing Provider Active Team Status: Inactive Member Role Status Dates Dr. Anurag Dolan MD Primary Care Provider Active Dr. Molly Nance MD Attending Provider, Referring Provider Active Team Status: Inactive Member Role Status Dates Dr. Anurag Dolan MD Primary Care Provider Active Dr. Hussein Bennett MD Attending Provider, Referring Provider Active Team Status: Active Member Role Status Dates Dr. Anurag Dolan MD Primary Care Provider Active Anurag Dolan MD Attending Provider Active Team Status: Inactive Member Role Status Dates Dr. Anurag Dolan MD Primary Care Provider Active Anurag Dolan MD Attending Provider Active Team Status: Inactive Member Role Status Dates Dr. Anurag Dolan MD Primary Care Provider Active Dr. Samson Ngo MD Emergency Provider Active Team Status: Inactive Member Role Status Dates Dr. Anurag Dolan MD Primary Care Provider Active Dr. Samson Ngo MD Attending Provider, Emergency Provi memo Active Team Status: Inactive Member Role Status Dates Dr. Anurag Dolan MD Primary Care Provider Active Dr. Bee Rivas MD Emergency Provider Active Team Status: Inactive Member Role Status Dates Dr. Anurag Dolan MD Primary Care Provider, Referring P rovider Active Dr. Elliot Howell DO Attending Provider Active Team Status: Inactive Member Role Status Dates Dr. Anurag Dolan MD Primary Care Provider Active Anurag IBRAHIM MD Attending Provider Active Team Status: Inactive Member Role Status Dates Dr. Anurag Dolan MD Primary Care Provider Active Dr. Bee Rivas MD Attending Provider, Emergency Pr ovider Active Team Status: Inactive Member Role Status Dates Dr. Anurag Dolan MD Primary Care Provider Active Dr. Kevin Candelaria MD Admit Provider, Attending Provid er Active Dr. Melanie Roach MD Other Provider Active Team Status: Active Member Role Status Dates Dr. Anurag Dolan MD Primary Care Provider Active Dr. Kevin Candelaria MD Attending Provider Active Team Status: Inactive Member Role Status Dates Dr. Anurag Dolan MD Primary Care Provider Active Dr. Kevin Candelaria MD Attending Provider Active Team Status: Active Member Role Status Dates Dr. Anurag Dolan MD Primary Care Provider Active Dr. Elliot Howell DO Attending Provider, Referring P rovider Active Team Status: Inactive Member Role Status Dates Dr. Anurag Dolan MD Primary Care Provider Active Dr. Alfa Sprague MD Active Dr. Elliot Howell DO Attending Provider, Referring P rovider Active Team Status: Inactive Member Role Status Dates Dr. Anurag Dolan MD Primary Care Provider, Referring P rovider Active Dr. Alfa Sprague MD Attending Provider Active Team Status: Active Member Role Status Dates Dr. Anurag Dolan MD Primary Care Provider Active Maya Gutiérrez Attending Provider Active Team Status: Active Member Role Status Dates Dr. Anurag Dolan MD Primary Care Provider Active Dr. Brianna Souza MD Attending Provider, Referrin g Provider Active Dr. Jemal Mcdonald MD Other Provider Active Dr. Elliot Howell DO Active Team Status: Inactive Member Role Status Dates Dr. Anurag Dolan MD Primary Care Provider Active Dr. Nilda Mcgarry DO Attending Provider, Referring P rovider Active Team Status: Inactive Member Role Status Dates Dr. Anurag Dolan MD Primary Care Provider Active Dr. Melanie Roach MD Attending Provider, Referrin g Provider Active Team Status: Inactive Member Role Status Dates Dr. Anurag Dolan MD Primary Care Provider, Referring P rovider Active Kena Heredia ORE DRESSING ENGINEER, ORE DRESSING ENGINEER-C Attending Provider Active Team Status: Inactive Member Role Status Dates Dr. Anurag Dolan MD Primary Care Provider Active Kena Heredia ORE DRESSING ENGINEER, ORE DRESSING ENGINEER-C Attending Provider, Referring Provider Active Team Status: Inactive Member Role Status Dates Dr. Anurag Dolan MD Primary Care Provider Active Dr. Elliot Howell DO Attending Provider, Referring P rovider Active Team Status: Active Member Role Status Dates Dr. Anurag Dolan MD Primary Care Provider Active Kena Heredia ORE DRESSING ENGINEER, ORE DRESSING ENGINEER-C Attending Provider, Referring Provider Active Hospitality Coordinator Relationship Specialty Start Date End Date Anurag Dolan [address] [place] [id number] PCP - General 03/23/17 Bee Pickens MD [address] [facility] [place] [phone] Consulting Physician Internal Medicine Cardiovascular Disease 11/17/22 Team Status: Active Member Role Status Dates Dr. Anurag Dolan MD Primary Care Provider Active Dr. Brianna Souza MD Attending Provider, Referrin g Provider Active Team Status: Inactive Member Role Status Dates Dr. Anurag Dolan MD Primary Care Provider Active Romelia McCuistion , ORE DRESSING ENGINEER-C Attending Provider, Jyotsna leong Provider Active Dr. Jemal Mcdonald MD Other Provider Active Hospitality Coordinator Relationship Specialty Start Date End Date Anurag Dolan [address] [place] [address] PCP - General 03/23/17 Bee Pickens MD [address] [place] [phone] Consulting Physician Internal Medicine Cardiovascular Disease 11/17/22 Team Status: Active Member Role Status Dates Dr. Anurag Dolan MD Primary Care Provider Active Team Status: Inactive Member Role Status Dates Dr. Anurag Dolan MD Primary Care Provider Active Start: November 08, 2024 End: November 08, 2024 Dr. Anurag Dolan MD Referring Provider Active St art: November 08, 2024 End: November 08, 2024 Dr. Ankush Lynch DO Attending Provider Active Start: November 08, 2024 End: November 08, 2024 Team Status: Inactive Member Role Status Dates Dr. Anurag Dolan MD Primary Care Provider Active Start: November 23, 2024 End: November 23, 2024 Dr. Anurag Dolan MD Referring Provider Active St art: November 23, 2024 End: November 23, 2024 Dr. Ankush Simons MD Attending Provider Active S tart: November 23, 2024 End: November 23, 2024 Team Status: Inactive Member Role Status Dates Dr. Anurag Dolan MD Primary Care Provider Active Start: December 21, 2024 End: December 21, 2024 Dr. Anurag Dolan MD Referring Provider Active St art: December 21, 2024 End: December 21, 2024 Caterina Bosch PA, PA Attending Provider Active Start: December 21, 2024 End: December 21, 2024 Team Status: Inactive Member Role Status Dates Dr. Anurag Dolan MD Primary Care Provider Active Start: December 21, 2024 End: December 21, 2024 Dr. Anurag Dolan MD Referring Provider Active St art: December 21, 2024 End: December 21, 2024 Kena Giovanna ORE DRESSING ENGINEER, ORE DRESSING ENGINEER-C Attending Provider Active Start: December 21, 2024 End: December 21, 2024 Team Status: Inactive Member Role Status Dates Dr. Anurag Dolan MD Primary Care Provider Active Start: January 08, 2025 End: January 08, 2025 Kena Giovanna ORE DRESSING ENGINEER, ORE DRESSING ENGINEER-C Attending Provider Active Start: January 08, 2025 End: January 08, 2025 Kena Giovanna ORE DRESSING ENGINEER, ORE DRESSING ENGINEER-C Referring Provider Active Start: January 08, 2025 End: January 08, 2025 Team Status: Inactive Member Role Status Dates Dr. Anurag Dolan MD Primary Care Provider Active Start: January 11, 2025 End: January 11, 2025 Kena Giovanna ORE DRESSING ENGINEER, ORE DRESSING ENGINEER-C Attending Provider Active Start: January 11, 2025 End: January 11, 2025 Kena Giovanna ORE DRESSING ENGINEER, ORE DRESSING ENGINEER-C Referring Provider Active Start: January 11, 2025 End: January 11, 2025 Team Status: Inactive Member Role Status Dates Dr. Anurag Dolan MD Primary Care Provider Active Start: January 18, 2025 End: January 18, 2025 Dr. Anurag Dolan MD Referring Provider Active St art: January 18, 2025 End: January 18, 2025 Dr. Brianna Souza MD Attending Provider Active Start: January 18, 2025 End: January 18, 2025 Team Status: Inactive Member Role Status Dates Dr. Anurag Dolan MD Primary Care Provider Active Start: February 15, 2025 End: February 15, 2025 Dr. Anurag Dolan MD Referring Provider Active St art: February 15, 2025 End: February 15, 2025 Kena Giovanna ORE DRESSING ENGINEER, ORE DRESSING ENGINEER-C Attending Provider Active Start: February 15, 2025 End: February 15, 2025 Team Status: Active Member Role Status Dates Dr. Anurag Dolan MD Primary Care Provider Active Start: February 20, 2025 Sydney Kelly Attending Provider Active Start: February 20, 2025 Team Status: Active Member Role Status Dates Dr. Anurag Dolan MD Primary Care Provider Active Start: February 26, 2025 Dr. Brianna Souza MD Attending Provider Active Start: February 26, 2025 Dr. Brianna Souza MD Referring Provider Active Start: February 26, 2025 Dr. Jemal Mcdonald MD Other Provider Active Start: February 26, 2025 Team Status: Inactive Member Role Status Dates Dr. Anurag Dolan MD Primary Care Provider Active Start: February 28, 2025 End: February 28, 2025 Dr. Nilda Mcgarry DO Attending Provider Active Start: February 28, 2025 End: February 28, 2025 Dr. Nilda Mcgarry DO Referring Provider Active Start: February 28, 2025 End: February 28, 2025 Team Status: Inactive Member Role Status Dates Dr. Anurag Dolan MD Primary Care Provider Active Start: March 07, 2025 End: March 07, 2025 Dr. Anurag Dolan MD Referring Provider Active St art: March 07, 2025 End: March 07, 2025 Kena Heredia NP, ORE DRESSING ENGINEER-C Attending Provider Active Start: March 07, 2025 End: March 07, 2025 Team Status: Inactive Member Role Status Dates Dr. Anurag Dolan MD Primary Care Provider Active Start: March 12, 2025 End: March 12, 2025 Dr. Anurag Dolan MD Referring Provider Active St art: March 12, 2025 End: March 12, 2025 Dr. Brianna Souza MD Attending Provider Active Start: March 12, 2025 End: March 12, 2025 Team Status: Inactive Member Role Status Dates Dr. Anurag Dolan MD Primary Care Provider Active Start: March 26, 2025 End: March 26, 2025 Dr. Anurag Dolan MD Referring Provider Active St art: March 26, 2025 End: March 26, 2025 Dr. Brianna Souza MD Attending Provider Active Start: March 26, 2025 End: March 26, 2025 Team Status: Inactive Member Role Status Dates Dr. Anurag Dolan MD Primary Care Provider Active Start: April 11, 2025 End: April 11, 2025 Dr. Anurag Dolan MD Referring Provider Active St art: April 11, 2025 End: April 11, 2025 Dr. Brianna Souza MD Attending Provider Active Start: April 11, 2025 End: April 11, 2025 Team Status: Active Member Role Status Dates Dr. Anurag Dolan MD Primary Care Provider Active Start: April 11, 2025 Dr. Brianna Souza MD Attending Provider Active Start: April 11, 2025 Dr. Brianna Souza MD Referring Provider Active Start: April 11, 2025 Dr. Jemal Mcdonald MD Other Provider Active Start: April 11, 2025 Hospitality Coordinator Relationship Specialty Start Date End Date Anurag Dolan MD PCP - General Family Medicine 03/04/11 Edis Rodrigez MD [address] [place] [address] Hematology/Oncology 04/20/25 Celeste Denny, RN Specialty Shipping Track Supervisor Hematology/Oncology 04/20/25 Hospitality Coordinator Relationship Specialty Start Date End Date Anurag Dolan MD PCP - General Family Medicine 03/04/11 Edis Rodrigez MD [address] [place], [place] [id number] Hematology/Oncology 04/20/25 Celeste Denny, RN Specialty Shipping Track Supervisor Hematology/Oncology 04/20/25 Hospitality Coordinator Relationship Specialty Start Date End Date Anurag Dolan MD PCP - General Family Medicine 03/04/11 Edis Rodrigez MD [address] [place] [address] Hematology/Oncology 04/20/25 Celeste Denny, RN Specialty Shipping Track Supervisor Hematology/Oncology 04/20/25 Team Status: Inactive Member Role Status Dates Dr. Anurag Dolan MD Primary Care Provider Active Start: April 30, 2025 End: April 30, 2025 Mati Castellano MD Emergency Provider Active Star t: April 30, 2025 End: April 30, 2025 Reason for Visit (unrecogniz ed section and content) Reason Comments 6 Month Follow-up Specialty Diagnoses / Procedures Referred By Contact Referred To Contact Cardiac Electrophysiology / Cardiology Diagnoses ventricular premature depolarization/PAF - referral Dr. Pickens Procedures NEW PATIENT Bee Pickens MD [address] [place] [address] Kilo Dolan MD [address] [place] [address] Referral ID Status Reason Start Date Expiration Date Visits Re quested Visits Authorized [id number] Closed 11/09/2022 05/08/2023 1 1 Reason Comments Consult Specialty Diagnoses / Procedures Referred By Contac t Referred To Contact HEMATOLOGY/ONCOLOGY Diagnoses Melanoma (HCC) Procedures Melanoma Interested in TIL Self Hematology/Oncology [address] [place] [address] Phone: tel: Referral ID Status Reason Start Date Expiration Date V isits Requested Visits Authorized [id number] Closed OON/Self Pay Override 04/20/2025 11/28/2025 1 1 Reason Comments Shipping Track Supervisor - Other Lab orders Returning Patient's Call Source Comments (unrecognize d section and content) In the event this informatio n is protected by the Federal Confidentiality of Alcohol and Drug Abuse Patient Records regulations: The Federal rules restrict any use of the information to criminally investigate or prosecute any alcohol or drug abuse patient.[facility] the event this information is protected by the Federal Confidentiality of Alcohol and Drug Abuse Patient Records regulations: The Federal rules restrict any use of the information to criminally investigate or prosecute any alcohol or drug abuse patient.[facility] the event this information is protected by the Federal Confidentiality of Alcohol and Drug Abuse Patient Records regulations: The Federal rules restrict any use of the information to criminally investigate or prosecute any alcohol or drug abuse patient.[facility] FOR RECORDS PERTAINING TO PATIENTS WHO ARE [...] BE BASED ON THE PRIMARY CLINICAL RECORDS. [facility] [employer] [facility]. provides no warranty or guarantee of the accuracy or completeness of information in this document.
--- NOTE | 2025-05-02 21:52 | VDLE_ITS ---
Reason For Study Reason For Study: Bialteral leg swelling RIGHT LEFT GSV is normal. GSV is normal. CFV is compressible, spontaneous, phasic, competent CFV is compressible, spontaneous, phasic, competent, and demonstrates normal augmentation. and demonstrates normal augmentation. FV is compressible, spontaneous, phasic, competent FV is compressible, spontaneous, phasic, competent and demonstrates normal augmentation. and demonstrates normal augmentation. POP V is compressible, spontaneous, phasic, competent POP V is compressible, spontaneous, phasic, competent and demonstrates normal augmentation. and demonstrates normal augmentation. T/P Trunk is compressible. T/P Trunk is compressible. PTV is compressible. PTV is compressible. RT PerV is compressible. LT PerV is compressible. Procedure This is a venous duplex using B-mode, color flow and spectral Doppler. Exam performed in department. A preliminary report was called and/or faxed to [facility]. VL/Venous Duplex US - Lane Extrem Interpretation Summary Deep veins of the lower extremities are bilaterally patent and compressible seg mentally. There is no evidence of deep vein thrombosis on either side. Valvular competence appears intact within the p roximal deep venous systems bilaterally. The great saphenous veins appear bilaterally patent and compressible segmentall y. Ordering Physician: Hattie Mcgarry Referring Physician: Anurag Dolan MD Performed By: Lela Ridley RVT
[2025-05-02] MEDS: APIXABAN 2.5 MG TABLET (WCH) PO (23:02)
[2025-05-02] MEDS: Tamsulosin HCl 0.4 MG Capsule PO (23:02)
[2025-05-02] MEDS: Finasteride 5 MG Tablet PO (23:02)
[2025-05-02] MEDS: guaiFENesin 1,200 MG Tablet 1200 MG PO (23:02)
[2025-05-02] MEDS: Senna Tablet 1 TABLET PO (23:03)
[2025-05-02] MEDS: Carboxymethylcellulose sodium gel dropperette 2 EACH EACH EYE (23:03)
--- NOTE | 2025-05-02 23:09 | PCM.RX.CS ---
Consult Antibiotic Management Pharmacy has been consulted to manage selected antibiotic: Vancomycin Type of Intervention Type of Consult: New start Labs Labs: Sodium 136 mmol/L (133-145) 05/02/25 14:40 Potassium 3.6 mmol/L (3.3-5.1) 05/02/25 14:40 Chloride 105 mmol/L (98-108) 05/02/25 14:40 Carbon Dioxide 18.9 mmol/L (21.0-32.0) L 05/02/25 14:40 Anion Gap 13 (5-15) 05/02/25 14:40 BUN 36 mg/dL (4-19) H 05/02/25 14:40 Creatinine 3.05 mg/dL (0.70-1.20) H 05/02/25 14:40 Est GFR (MDRD) Non-Af 19 (>60) L 05/02/25 14:40 BUN/Creatinine Ratio 11.7 RATIO (10-20) 05/02/25 14:40 Glucose 172 mg/dL (70-99) H 05/02/25 14:40 Microbiology Microbiology: Microbiology 05/02/25 17:06 Urine, Clean Catch Streptococcus pneumoniae Antigen (M - Final 05/02/25 17:06 Urine, Clean Catch Legionella Antigen - Final 05/02/25 16:56 Mucosa - Nose SARS-CoV-2, Influenza & RSV (PCR) - Final Dosing Weight Weight used for dosin.4 kg Estimated Creatinine Clearance Estimated Creatinine Clearance: 19 Goal Trough Goal Trough: 15-20 mcg/mL Pharmacy Plan for Drug Dosing Pharmacy Plan for Drug Dosing: An initial vancomycin dose of 2000mg was given 05/02/25 @1740. With current CrCl below 20 ml/min (at 19.0), we will hold off on scheduling continuing doses. A random vanco level will be drawn in a.m. 05/04 to determine further orders. Pharmacy Service will continue to monitor and adjust dosing as required. Follow-Up Labs Follow-Up Labs: Trough: Vancomycin (random) Date/Time Labs Ordered Labs to be done on [date and time ordered]: 05/04/25 @0600 (random)
[2025-05-03] VITALS (7 sets, daily range): BP systolic 121–133; BP diastolic 61–78; PULSE 70–99; RESP 16–20; TEMP 36.5–38.7; O2SAT 92–97
[2025-05-03] MEDS: Acetaminophen 500 MG Tablet 1000 MG PO ×2 (04:00→15:07)
[2025-05-03] MEDS: Levothyroxine 112 MCG Tablet PO (05:45)
[2025-05-03 06:20] LABS: Absolute Lymphocyte Count 0.66 X10^3/uL (0.83-4.51); Absolute Neutrophil Count 4.5 X10^3/uL (2.0-7.7); Basophil# 0.01 X10^3/uL; Basophil% 0.2 % (0-1); Eosinophil# 0.07 X10^3/uL; Eosinophils% 1.3 % (0-5); Hematocrit 22.4 % (40-54); Hemoglobin 7.6 g/dL (13.0-16.5); Lymphocyte # 0.66 X10^3/ul (0.83-4.51); Lymphocyte % 12.1 % (19-41); Mean Corp Hgb Conc 33.9 g/dL (32-36); Mean Corpuscular Hgb 32.6 pg (27.0-32.0); Mean Corpuscular Volume 96.1 fL (80-94); Mean Platelet Vol. 8.9 fl (6.2-12.0); Monocyte# 0.16 X10^3/uL; Monocyte% 2.9 % (0-10); NRBC Flagged by Analyzer 0 % (0-5); Neutrophil # 4.49 X10^3/uL (2.7-7.7); Neutrophil % 82.4 % (47-70); Platelet Count 202 K/mm3 (150-450); RBC Distribution Width CV 14.7 % (11.6-14.6); RBC Distribution Width SD 51.9 fl (35.1-43.9); Red Blood Count 2.33 M/mm3 (4.6-6.2); White Blood Count 5.5 K/mm3 (4.4-11.0)
[2025-05-03 07:06] LABS: ALB/GLOB Ratio 1.2 RATIO (0.9-2.4); AST(SGOT) 13 U/L (<=37); Alanine Aminotransfer ALT/SGPT 14 U/L (<=46); Albumin, Serum 2.6 g/dL (3.4-4.8); Alkaline Phosphatase 56 U/L (40-129); Anion Gap 10 (5-15); BUN 34 mg/dL (4-19); BUN/Creat Ratio 11.9 RATIO (10-20); Calcium,Total 8.4 mg/dL (7.6-11.0); Carbon Dioxide 18.9 mmol/L (21.0-32.0); Chloride 111 mmol/L (98-108); Creatinine, Serum 2.84 mg/dL (0.70-1.20); EST Glomerular Filtration Rate 21 (>60); Estimated Creatinine Clearance 20.28 ml/min (50-250); Globulin 2.2 g/dL (2.2-4.2); Glucose 86 mg/dL (70-99); Magnesium 1.9 mg/dL (1.5-2.2); Phosphorus 3.1 mg/dL (2.7-4.5); Potassium 3.4 mmol/L (3.3-5.1); Protein, Total 4.7 g/dL (5.9-8.4); Sodium Level 140 mmol/L (133-145)
[2025-05-03] MEDS: Ipratropium/Albuterol Sulfate 3 ML AMPUL.NEB INHALATION ×2 (07:23→13:34)
--- NOTE | 2025-05-03 07:42 | PN.HOSP_ITS ---
Reason for Visit Reason for Visit: Diagnoses Acidosis, unspecified (05/02/25) Cough, unspecified (05/02/25) Fever, unspecified (05/02/25) Weakness (05/02/25) Other fatigue (05/02/25) Other specified abnormal findings of blood chemistry (05/02/25) Subjective Subjective Still with chills. Objective Data Objective Data Vital Signs: Vital Signs Temp Pulse Resp BP Pulse Ox O2 Del Method 36.9 C 90 18 124/71 H 93 Room Air 05/03/25 04:00 05/03/25 07:24 05/03/25 07:24 05/03/25 04:00 05/03/25 07:24 05/03/25 07:24 Oxygen Delivery Method Room Air Weight: 89.4 kg Body Mass Index (BMI) 31.3 Intake & Output: Intake and Output for Last 24 Hours 05/01/25 05/02/25 05/03/25 23:59 23:59 23:59 Intake Total 3640 / 3640 Output Total 650 / 650 Balance 3640 / 3290 -650 / -650 Lab / Micro Data 05/03/25 05:48 05/03/25 05:48 Labs: Laboratory Results - last 24 hr 05/02/25 14:04: Lactic Acid 2.2 H*, Troponin T High Sens 66 H*, TSH 2.580, Free T4 1.00, Free T3 pg/dL 1.2 L 05/02/25 14:40: WBC 5.3, RBC 2.67 L, Hgb 8.7 L, Hct 25.7 L, MCV 96.3 H, MCH 32.6 H, MCHC 33.9, RDW Std Deviation 51.1 H, RDW Coeff of Halley 14.6, Plt Count 204, MPV 8.8, Immature Gran % (Auto) 0.700, Neut % (Auto) 89.0 H, Lymph % (Auto) 7.5 L, [place] % (Auto) 2.8, Eos % (Auto) 0.0, Baso % (Auto) 0.0, Absolute Neuts (auto) 4.8, Absolute Lymphs (auto) 0.40 L, Nucleated RBC % 0, PT 14.2, INR 1.1, APTT 32.4, Sodium 136, Potassium 3.6, Chloride 105, Carbon Dioxide 18.9 L, Anion Gap 13, BUN 36 H, Creatinine 3.05 H, Est GFR (MDRD) Non-Af 19 L, BUN/Creatinine Ratio 11.7, Glucose 172 H, Lactic Acid 2.7 H*, Calcium 9.3, Total Bilirubin 0.20, AST 18, ALT 19, Alkaline Phosphatase 74, Total Protein 5.6 L, Albumin 3.2 L, Globulin 2.4, Albumin/Globulin Ratio 1.3, TSH Cancelled, Free T4 Cancelled, Free T3 pg/dL Cancelled 05/02/25 17:06: Urine Color Straw, Urine Clarity Clear, Urine pH 6.0, Ur Specific [place] 1.010, Urine Protein 15 H, Urine Glucose (UA) Normal, Urine Ketones Negative, Urine Occult Blood 10 H, Urine Nitrite Negative, Urine Bilirubin Negative, Urine Urobilinogen Normal, Ur Leukocyte Esterase Negative, Urine RBC 0-5 SEEN, Urine WBC 0 SEEN, Ur Squamous Epith Cells 0 SEEN, Urine Bacteria 0 SEEN, Urine Mucus 0 SEEN 05/02/25 18:05: Troponin T Hi Sens 2 Hr 60 H* 05/02/25 19:05: Lactic Acid 2.4 H* 05/02/25 20:30: Lactic Acid 1.8, Troponin T Hi Sens 4Hr 56 H* 05/03/25 05:48: WBC 5.5, RBC 2.33 L, Hgb 7.6 L, Hct 22.4 L, MCV 96.1 H, MCH 32.6 H, MCHC 33.9, RDW Std Deviation 51.9 H, RDW Coeff of Halley 14.7 H, Plt Count 202, MPV 8.9, Immature Gran % (Auto) 1.100 H, Neut % (Auto) 82.4 H, Lymph % (Auto) 12.1 L, [place] % (Auto) 2.9, Eos % (Auto) 1.3, Baso % (Auto) 0.2, Absolute Neuts (auto) 4.5, Absolute Lymphs (auto) 0.66 L, Nucleated RBC % 0, Sodium 140, Potassium 3.4, Chloride 111 H, Carbon Dioxide 18.9 L, Anion Gap 10, BUN 34 H, C reatinine 2.84 H, Estim Creat Clear Calc 20.28 L, Est GFR (MDRD) Non-Af 21 L, BUN/Creatinine Ratio 11.9, Glucose 86, Calcium 8.4, Phosphorus 3.1, Magnesium 1.9, Total Bilirubin 0.30, AST 13, ALT 14, Alkaline Phosphatase 56, Total Protein 4.7 L, Albumin 2.6 L, Globulin 2.2, Albumin/Globulin Ratio 1.2 Micro: Microbiology 05/02/25 17:06 Urine, Clean Catch Streptococcus pneumoniae Antigen (M - Final 05/02/25 17:06 Urine, Clean Catch Legionella Antigen - Final 05/02/25 16:56 Mucosa - Nose SARS-CoV-2, Influenza & RSV (PCR) - Final Radiography Diagnostic Testing: Radiology Impression Chest/Abdomen/Pelvis CT 05/02/25 16:15 IMPRESSION: 1. No acute abnormalities of the chest, abdomen, or pelvis. 2. Stable thickening of the left fissure. 3. Right inguinal region small density which is similar to the prior and may represent scarring. Internal fluid can not be excluded. Further characterization with right inguinal hernia is recommended. 4. Colonic diverticulosis. 5. Dense colonic stool which may suggest constipation. 6. Additional chronic and ancillary findings as above. Reading Location: [place] [id number] Physical Exam Const alert and no apparent distress HEENT head/scalp atraumatic and moist oral mucous membranes Resp normal respiratory effort, no retractions, no use of accessory muscles and clear to auscultation bilaterally Cardio regular rate, regular rhythm, S1 normal heart sound and S2 normal heart sound GI normal to inspection, nondistended, normoactive bowel sounds, soft to palpation, non-tender and non-distended Neuro Sensorium / Orientation: awake and alert Assessment & Plan Assessment/Plan (1) Fever: PLAN: CT chest/abd/pelvis negative. Strep and legionella antigens negative, COVID/influenza/RSV negative Resp panel +rhinovirus. (2) Anemia: PLAN: Down from 9.4 from March Monitor iron, ferritin 508, B12 515, TSH 4.15, Folate pending PLAN: Plan Chronic conditions: * HTN: amlodipine, metoprolol * malignant melanoma: follow up with oncology. Patient has change * BPH: finasteride, alfuzosin * GERD: PPI. * pAfib: apixaban, metoprolol * hypothyroidism: levothyroxine * CKD IV: stable. possibly 2/2 ipilimumab. On prednisone taper. Will restart 30 mg through 05/04, then 20mg for 1 week, then 10mg for 1 week. Charges/Coding Visit Charges Inpatient E&M: 21042 Subs Hosp L2
[2025-05-03] MEDS: Azithromycin 500 MG in 0.9% Normal Saline (250mL Bag) 250 ML 255 MG IV (08:49)
[2025-05-03] MEDS: 0.9% Saline Lock 10 ML Syringe IV (08:52)
[2025-05-03] MEDS: amLODIPine 5 MG Tablet PO (08:57)
[2025-05-03] MEDS: Lactobacillis Acidophilus 1 CAP PO ×3 (08:57→17:05)
[2025-05-03] MEDS: Pantoprazole Sodium 40 MG Tablet PO (08:57)
[2025-05-03] MEDS: Cholecalciferol (VIT D3) 25 MCG TABLET (1,000 UNITS) PO (08:57)
[2025-05-03] MEDS: guaiFENesin 1,200 MG Tablet 1200 MG PO ×2 (08:57→23:23)
[2025-05-03] MEDS: Calcium Carbonate 500 MG Tablet PO (08:57)
[2025-05-03] MEDS: Senna Tablet 1 TABLET PO ×2 (08:57→23:03)
[2025-05-03] MEDS: APIXABAN 2.5 MG TABLET (WCH) PO ×2 (08:58→23:03)
[2025-05-03] MEDS: Ensure Plus High Protein 120 ML LIQUID PO ×3 (08:59→17:05)
[2025-05-03] MEDS: Metoprolol Tartrate 25 MG Tablet PO (09:03)
[2025-05-03 10:16] LABS: Ferritin 508 ng/mL (37-417); Iron 50 ug/dL (65-175); Iron Binding Capacity,Unsat 97 ug/dL (228-428); Vitamin B12 515 pg/mL (180-914)
[2025-05-03] MEDS: predniSONE 10 MG Tablet 30 MG PO (13:19)
[2025-05-03] MEDS: Finasteride 5 MG Tablet PO (23:03)
[2025-05-03] MEDS: Tamsulosin HCl 0.4 MG Capsule PO (23:03)
[2025-05-03] MEDS: Cefepime HCl 2 GM in 0.9% Normal Saline (100mL MB+) 100 ML IV (23:30)
[2025-05-04 04:06] VITALS: BP 114/72; PULSE 76; RESP 16; TEMP 36.8; O2SAT 96
[2025-05-04] MEDS: Levothyroxine 112 MCG Tablet PO (04:22)
[2025-05-04 06:18] LABS: Absolute Lymphocyte Count 0.69 X10^3/uL (0.83-4.51); Absolute Neutrophil Count 4.1 X10^3/uL (2.0-7.7); Hematocrit 24.5 % (40-54); Hemoglobin 8.3 g/dL (13.0-16.5); Lymphocyte # 0.69 X10^3/ul (0.83-4.51); Lymphocyte % 13.8 % (19-41); Mean Corp Hgb Conc 33.9 g/dL (32-36); Mean Corpuscular Hgb 32.2 pg (27.0-32.0); Mean Platelet Vol. 8.7 fl (6.2-12.0); Monocyte# 0.14 X10^3/uL; Monocyte% 2.8 % (0-10); NRBC Flagged by Analyzer 0 % (0-5); Neutrophil # 4.11 X10^3/uL (2.7-7.7); Neutrophil % 82.4 % (47-70); Platelet Count 196 K/mm3 (150-450); RBC Distribution Width CV 14.1 % (11.6-14.6); RBC Distribution Width SD 49.1 fl (35.1-43.9); Red Blood Count 2.58 M/mm3 (4.6-6.2)
[2025-05-04 06:51] LABS: Vancomycin, Random Level 12.4 ug/mL (0.0-15.0)
[2025-05-04 07:20] LABS: Anion Gap 12 (5-15); BUN 35 mg/dL (4-19); Carbon Dioxide 18.7 mmol/L (21.0-32.0); Chloride 108 mmol/L (98-108); Creatinine, Serum 2.92 mg/dL (0.70-1.20); EST Glomerular Filtration Rate 21 (>60); Estimated Creatinine Clearance 19.72 ml/min (50-250); Glucose 105 mg/dL (70-99); Potassium 3.1 mmol/L (3.3-5.1); Sodium Level 139 mmol/L (133-145)
--- NOTE | 2025-05-04 07:30 | PCM.RX.CS ---
Consult Antibiotic Management Pharmacy has been consulted to manage selected antibiotic: Vancomycin Type of Intervention Type of Consult: Follow-up Labs Labs: Sodium 139 mmol/L (133-145) 05/04/25 06:02 Potassium 3.1 mmol/L (3.3-5.1) L 05/04/25 06:02 Chloride 108 mmol/L (98-108) 05/04/25 06:02 Carbon Dioxide 18.7 mmol/L (21.0-32.0) L 05/04/25 06:02 Anion Gap 12 (5-15) 05/04/25 06:02 BUN 35 mg/dL (4-19) H 05/04/25 06:02 Creatinine 2.92 mg/dL (0.70-1.20) H 05/04/25 06:02 Est GFR (MDRD) Non-Af 21 (>60) L 05/04/25 06:02 BUN/Creatinine Ratio 12.0 RATIO (10-20) 05/04/25 06:02 Glucose 105 mg/dL (70-99) H 05/04/25 06:02 Random Vancomycin 12.4 ug/mL (0.0-15.0) 05/04/25 06:02 Microbiology Microbiology: Microbiology 05/02/25 17:06 Urine, Clean Catch Urine Culture - Preliminary Culture exhibits no growth. 05/02/25 23:30 Mucosa - Nasopharyngeal Respiratory Panel (PCR) - Final Rhinovirus 05/02/25 17:06 Urine, Clean Catch Streptococcus pneumoniae Antigen (M - Final 05/02/25 17:06 Urine, Clean Catch Legionella Antigen - Final 05/02/25 16:56 Mucosa - Nose SARS-CoV-2, Influenza & RSV (PCR) - Final Goal Trough Goal Trough: 15-20 mcg/mL Pharmacy Plan for Drug Dosing Pharmacy Plan for Drug Dosing: VANCOMYCIN LEVEL RECEIVED Current Vancomycin Dose: 2G IV X1 administered 05/02/25 @1740 Number of Doses Received: 1 Vancomycin Level: 12.4 Hours Since Last Dose: 36.5hr Renal Function: 2.92 Renal Function Trend: Scr remains elevated Lab/Micro: cultures pending Vancomycin Plan/Comments: patient had a trough drawn which resulted in a value of 12.4 (goal 15-20). patient still with impaired renal function and estimated CrCl <20. Will give a x1 dose of vancomycin 1250mg IV x1 per protocol and recheck a trough tomorrow morning with AM labs and dose accordingly. Pending Level: *RANDOM* 05/05/25 @0600 Pharmacy Service will continue to monitor and adjust dosing as required.
--- NOTE | 2025-05-04 07:45 | PN.HOSP_ITS ---
Reason for Visit Reason for Visit: Diagnoses Anemia, unspecified (05/02/25) Acidosis, unspecified (05/02/25) Cough, unspecified (05/02/25) Fever, unspecified (05/02/25) Weakness (05/02/25) Other fatigue (05/02/25) Other specified abnormal findings of blood chemistry (05/02/25) Subjective Subjective Feeling great. No fever since yesterday. Objective Data Objective Data Vital Signs: Vital Signs Temp Pulse Resp BP Pulse Ox O2 Del Method 36.8 C 76 16 114/72 96 Room Air 05/04/25 04:06 05/04/25 04:06 05/04/25 04:06 05/04/25 04:06 05/04/25 04:06 05/04/25 04:06 Oxygen Delivery Method Room Air Weight: 89.4 kg Body Mass Index (BMI) 31.3 Intake & Output: Intake and Output for Last 24 Hours 05/02/25 05/03/25 05/04/25 23:59 23:59 23:59 Intake Total 3640 / 3640 855 / 1155 550 / 550 Output Total 1700 / 1975 975 / 975 Balance 3640 / 3290 -845 / -820 -425 / -425 Lab / Micro Data 05/04/25 06:02 05/04/25 06:02 Labs: Laboratory Results - last 24 hr 05/03/25 05:54: Iron 50 L, TIBC TNP, Iron Saturation 34.0, Unsaturated IBC 97 L, Ferritin 508 H, Vitamin B12 515, TSH 4.150 05/03/25 09:40: Serum Folate 24.60 05/04/25 06:02: WBC 5.0, RBC 2.58 L, Hgb 8.3 L, Hct 24.5 L, MCV 95.0 H, MCH 32.2 H, MCHC 33.9, RDW Std Deviation 49.1 H, RDW Coeff of Halley 14.1, Plt Count 196, MPV 8.7, Immature Gran % (Auto) 1.000 H, Neut % (Auto) 82.4 H, Lymph % (Auto) 13.8 L, [place] % (Auto) 2.8, Eos % (Auto) 0.0, Baso % (Auto) 0.0, Absolute Neuts (auto) 4.1, Absolute Lymphs (auto) 0.69 L, Nucleated RBC % 0, Sodium 139, P otassium 3.1 L, Chloride 108, Carbon Dioxide 18.7 L, Anion Gap 12, BUN 35 H, C reatinine 2.92 H, Estim Creat Clear Calc 19.72 L, Est GFR (MDRD) Non-Af 21 L, BUN/Creatinine Ratio 12.0, Glucose 105 H, Calcium 9.0, Random Vancomycin 12.4 Micro: Microbiology 05/02/25 17:06 Urine, Clean Catch Urine Culture - Preliminary Culture exhibits no growth. 05/02/25 23:30 Mucosa - Nasopharyngeal Respiratory Panel (PCR) - Final Rhinovirus 05/02/25 17:06 Urine, Clean Catch Streptococcus pneumoniae Antigen (M - Final 05/02/25 17:06 Urine, Clean Catch Legionella Antigen - Final 05/02/25 16:56 Mucosa - Nose SARS-CoV-2, Influenza & RSV (PCR) - Final Radiography Diagnostic Testing: Radiology Impression Venous Doppler Study 05/02/25 21:52 Interpretation Summary Deep veins of the lower extremities are bilaterally patent and compressible segmentally. There is no evidence of deep vein thrombosis on either side. Valvular competence appears intact within the proximal deep venous systems bilaterally. The great saphenous veins appear bilaterally patent and compressible segmentally. Ordering Physician: Hattie Mcgarry Referring Physician: Anurag Dolan MD Performed By: Lela Ridley RVT Physical Exam Const alert and no apparent distress HEENT head/scalp atraumatic and moist oral mucous membranes Resp normal respiratory effort, no retractions, no use of accessory muscles and clear to auscultation bilaterally Cardio regular rate, regular rhythm, S1 normal heart sound and S2 normal heart sound GI normal to inspection, nondistended, normoactive bowel sounds, soft to palpation, non-tender and non-distended Extremity normal to inspection and full ROM Neuro Sensorium / Orientation: awake and alert Assessment & Plan Assessment/Plan (1) Fever: PLAN: CT chest/abd/pelvis negative. Strep and legionella antigens negative, COVID/influenza/RSV negative Resp panel +rhinovirus. BCx so far negative. (2) Anemia: PLAN: Down from 9.4 from March. Overall stable. Monitor iron 50, ferritin 508, B12 515, TSH 4.15, Folate 24 PLAN: Plan Chronic conditions: * HTN: amlodipine, metoprolol * malignant melanoma: follow up with oncology. Patient has change * BPH: finasteride, alfuzosin * GERD: PPI. * pAfib: apixaban, metoprolol * hypothyroidism: levothyroxine * CKD IV: stable. possibly 2/2 ipilimumab. On prednisone taper. Will restart 30 mg through 05/04, then 20mg for 1 week, then 10mg for 1 week. DC home.
[2025-05-04 08:07] VITALS: BP 111/82; PULSE 87; RESP 16; TEMP 36.9; O2SAT 95
[2025-05-04] MEDS: Lactobacillis Acidophilus 1 CAP PO ×2 (08:31→13:41)
[2025-05-04] MEDS: predniSONE 10 MG Tablet 30 MG PO (08:32)
[2025-05-04] MEDS: Calcium Carbonate 500 MG Tablet PO (08:32)
[2025-05-04 08:33] VITALS: PULSE 87
[2025-05-04] MEDS: Metoprolol Tartrate 25 MG Tablet PO (08:33)
[2025-05-04] MEDS: guaiFENesin 1,200 MG Tablet 1200 MG PO (08:33)
[2025-05-04] MEDS: amLODIPine 5 MG Tablet PO (08:33)
[2025-05-04] MEDS: APIXABAN 2.5 MG TABLET (WCH) PO (08:33)
[2025-05-04] MEDS: Senna Tablet 1 TABLET PO (08:34)
[2025-05-04] MEDS: Pantoprazole Sodium 40 MG Tablet PO (08:34)
[2025-05-04] MEDS: Cholecalciferol (VIT D3) 25 MCG TABLET (1,000 UNITS) PO (08:34)
[2025-05-04] MEDS: Azithromycin 500 MG in 0.9% Normal Saline (250mL Bag) 250 ML 255 MG IV (08:35)
[2025-05-04] MEDS: Ensure Plus High Protein 120 ML LIQUID PO ×2 (08:54→13:41)
[2025-05-04] MEDS: Vancomycin HCl 1,250 MG in 0.9% Normal Saline (250mL Bag) 250 ML 167 MG IV (10:11)
--- NOTE | 2025-05-04 13:35 | DS.PCM_ITS ---
Providers Date of Admission: 05/02/25 Primary Care Physician: Dr. Anurag Dolan MD Reason For Visit: FUO/WEAKNESS Diagnosis Discharge Diagnosis (1) Fever: Status: Acute Code(s): R50.9 - Fever, unspecified Plan: CT chest/abd/pelvis negative. Strep and legionella antigens negative, COVID/influenza/RSV negative Resp panel +rhinovirus. BCx so far negative. (2) Anemia: Status: Acute Code(s): D64.9 - Anemia, unspecified Plan: Down from 9.4 from March. Overall stable. Monitor iron 50, ferritin 508, B12 515, TSH 4.15, Folate 24 Plan Chronic conditions: * HTN: amlodipine, metoprolol * malignant melanoma: follow up with oncology. Patient has change * BPH: finasteride, alfuzosin * GERD: PPI. * pAfib: apixaban, metoprolol * hypothyroidism: levothyroxine * CKD IV: stable. possibly 2/2 ipilimumab. On prednisone taper. Will restart 30 mg through 05/04, then 20mg for 1 week, then 10mg for 1 week. DC home. Medications at Discharge Home Medications omeprazole 40 mg capsule,delayed release 40 mg PO DAILY acid reflux 10/29/20 amlodipine 5 mg tablet 5 mg PO DAILY blood pressure 10/06/21 calcium carbonate (Calcium 600) 600 mg PO DAILY supplement 01/20/22 alfuzosin 10 mg tablet,extended release 24 hr 10 mg PO QHS urinary retention 09/28/22 peg [id number] 1 %-0.2 %-0.2 % eye drops (Artificial Tears ([id number])) 2 drp EACH EYE Q1H PRN DRY EYES #0 mL 02/16/23 finasteride 5 mg tablet 5 mg PO QHS 10/12/23 glucosamine sulfate 500 mg tablet (Glucosamine) 1,000 mg PO DAILY 10/28/23 multivitamin 1 tab PO DAILY 10/28/23 lidocaine-prilocaine 2.5 %-2.5 % topical cream 1 applic topical ONCE PRN Port access 30 days #30 grams 03/15/24 triamcinolone acetonide 0.1 % topical cream 1 applic topical BID-TID 07/26/24 acetaminophen 500 mg tablet (Tylenol Extra Strength) 1,000 mg PO Q8H PRN pain 12/21/24 bismuth subsalicylate 262 mg/15 mL oral suspension (Pepto-Bismol) 524 mg PO TID PRN diarrhea 12/21/24 cholecalciferol (vitamin D3) 25 mcg (1,000 unit) tablet 25 mcg PO DAILY 12/21/24 diphenhydramine HCl 25 mg capsule (Allergy Relief (diphenhydramine)) 50 mg PO QHS PRN allergy symptoms 12/21/24 levothyroxine 112 mcg tablet 112 mcg PO DAILY thyroid 12/21/24 loratadine 10 mg tablet 10 mg PO DAILY PRN allergy symptoms 12/21/24 guaifenesin 1,200 mg tablet, extended release 12 hr (Mucinex) 1,200 mg PO BID 03/09/25 ondansetron HCl 4 mg tablet 4 mg PO Q8H PRN nausea and vomiting 03/09/25 Lactobacillus acidophilus 20 billion cell capsule (Florajen Acidophilus) 100 mmu cells PO TIDCM 03/12/25 cyproheptadine 4 mg tablet 4 mg PO QHS PRN insomnia 04/30/25 melatonin 3 mg capsule 3 mg PO QHS 04/30/25 metoprolol tartrate 25 mg tablet 25 mg PO DAILY blood pressure/heart 04/30/25 prednisone 10 mg tablet 10 mg PO DAILY 04/30/25 prednisone 20 mg tablet 20 mg PO QDAY 04/30/25 sennosides 8.6 mg tablet (Black-Draught Lax-Senna) 8.6 mg PO BID 04/30/25 apixaban 2.5 mg tablet (Eliquis) 2.5 mg PO BID 05/02/25 Hospital Course Operations None Procedures None Summary of Care Provided Hospital Course: Patient presents with fever and general malaise. Patient felt sick. Is concerned for very severe infection because he is immunocompromise due to chronic prednisone use. He underwent a workup that came back positive only for rhinovirus. Patient was not started on antibiotics. Patient is today is feeling better. Patient will be discharged home in stable condition. 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 Weight / BMI Weight Weight: 89.4 kg Body Mass Index (BMI) 31.3 ABG / Lab / Microbiology Data 05/04/25 06:02 05/04/25 06:02 Laboratory: Laboratory Results - last 24 hr 05/03/25 05:54: TIBC TNP 05/04/25 06:02: WBC 5.0, RBC 2.58 L, Hgb 8.3 L, Hct 24.5 L, MCV 95.0 H, MCH 32.2 H, MCHC 33.9, RDW Std Deviation 49.1 H, RDW Coeff of Halley 14.1, Plt Count 196, MPV 8.7, Immature Gran % (Auto) 1.000 H, Neut % (Auto) 82.4 H, Lymph % (Auto) 13.8 L, [place] % (Auto) 2.8, Eos % (Auto) 0.0, Baso % (Auto) 0.0, Absolute Neuts (auto) 4.1, Absolute Lymphs (auto) 0.69 L, Nucleated RBC % 0, Sodium 139, P otassium 3.1 L, Chloride 108, Carbon Dioxide 18.7 L, Anion Gap 12, BUN 35 H, C reatinine 2.92 H, Estim Creat Clear Calc 19.72 L, Est GFR (MDRD) Non-Af 21 L, BUN/Creatinine Ratio 12.0, Glucose 105 H, Calcium 9.0, Random Vancomycin 12.4 Microbiology: Microbiology 05/02/25 17:06 Urine, Clean Catch Urine Culture - Preliminary Alpha hemolytic organism 05/02/25 23:30 Mucosa - Nasopharyngeal Respiratory Panel (PCR) - Final Rhinovirus 05/02/25 17:06 Urine, Clean Catch Streptococcus pneumoniae Antigen (M - Final 05/02/25 17:06 Urine, Clean Catch Legionella Antigen - Final 05/02/25 16:56 Mucosa - Nose SARS-CoV-2, Influenza & RSV (PCR) - Final Radiography Diagnostic Testing: Radiology Impression Venous Doppler Study 05/02/25 21:52 Interpretation Summary Deep veins of the lower extremities are bilaterally patent and compressible segmentally. There is no evidence of deep vein thrombosis on either side. Valvular competence appears intact within the proximal deep venous systems bilaterally. The great saphenous veins appear bilaterally patent and compressible segmentally. Ordering Physician: Hattie Mcgarry Referring Physician: Anurag Dolan MD Performed By: Lela Ridley RVT D/C Instructions Discharge Diet: No restrictions DC O2, CPAP, BIPAP Needs Home O2 Discharge instructions: No Meaningful Use Info Meaningful Use Meaningful Use Diagnoses (Choose all that apply): None applicable Ischemic Stroke Statin Dosing Therapy Reference: STATIN DOSE THERAPY REFERENCE: * Patients > 75 years receive moderate or high dose statin therapy. * Patients 75 years or YOUNGER should receive HIGH intensity statin dose unless contraindicated. You will be required to document reason for non-treatment if statin daily dose does not meet guidelines. HIGH DOSE STATIN THERAPY DAILY Atorvastatin > than or = to 40 mg Rosuvastatin > than or = to 20 mg Amlodipine + Atorvastatin > than or = to 2.5/40 mg Ezetimibe + Simvastatin 10/80 mg Simvastatin 80mg Discharge Plan Admission Admit Date/Time: 05/02/25 20:33 Primary Reason for Your Visit: generalized illness. Attending Provider: Anurag Parekh Primary Care Provider: Anurag Dolan Consulting Providers: Hattie Mcgarry Discharge Orders/Prescriptions Prescriptions: Continued omeprazole 40 mg capsule,delayed release(DR/EC) 40 mg PO DAILY acetaminophen [Tylenol Extra Strength] 500 mg tablet 1,000 mg PO Q8H PRN (Reason: pain) amlodipine 5 mg tablet 5 mg PO DAILY calcium carbonate [Calcium 600] 600 mg calcium (1,500 mg) tablet 600 mg PO DAILY alfuzosin 10 mg tablet extended release 24 hr 10 mg PO QHS Rx Instructions: administer after the same meal each day finasteride 5 mg tablet 5 mg PO QHS multivitamin Tablet 1 tab PO DAILY glucosamine sulfate [Glucosamine] 500 mg tablet 1,000 mg PO DAILY Rx Instructions: administer with a meal levothyroxine 112 mcg tablet 112 mcg PO DAILY bismuth subsalicylate [Pepto-Bismol] 262 mg/15 mL suspension 524 mg PO TID PRN (Reason: diarrhea) Rx Instructions: do not exceed 8 doses in a 24 hour period cholecalciferol (vitamin D3) 25 mcg (1,000 unit) tablet 25 mcg PO DAILY diphenhydramine HCl [Allergy Relief(diphenhydramin)] 25 mg capsule 50 mg PO QHS PRN (Reason: allergy symptoms) loratadine 10 mg tablet 10 mg PO DAILY PRN (Reason: allergy symptoms) triamcinolone acetonide 0.1 % cream 1 applic topical BID-TID Florajen Acidophilus 20 billion cell capsule 100 mmu cells PO TIDCM guaifenesin [Mucinex] 1,200 mg tablet extended release 12hr 1,200 mg PO BID ondansetron HCl 4 mg tablet 4 mg PO Q8H PRN (Reason: nausea and vomiting) Artificial Tears([id number]) 1-0.2-0.2 % Drops 2 drp EACH EYE Q1H PRN (Reason: DRY EYES) Qty: 0 0RF cyproheptadine 4 mg tablet 4 mg PO QHS PRN (Reason: insomnia) melatonin 3 mg capsule 3 mg PO QHS prednisone 10 mg tablet 10 mg PO DAILY Rx Instructions: IN ADDITION TO 20MG PER [facility] MED LIST sennosides [Black-Draught Lax-Senna] 8.6 mg tablet 8.6 mg PO BID prednisone 20 mg tablet 20 mg PO QDAY Rx Instructions: IN ADDITION TO 10MG PER [facility] MED LIST metoprolol tartrate 25 mg tablet 25 mg PO DAILY Eliquis 2.5 mg tablet 2.5 mg PO BID lidocaine-prilocaine 2.5-2.5 % cream 1 applic topical ONCE PRN (Reason: Port access ) 30 Days Qty: 30 2RF Referrals / Follow Up: Anurag Dolan MD [Primary Care Provider] - Within 2 Weeks Disposition Disposition (needs filled in before D/C Order can be placed): Home, Self Care Charges/Coding Visit Charges Inpatient E&M: 78286 Disch Hosp
--- NOTE | 2025-05-04 14:32 | CASEMGMT ---
Social Work Pt admitted from [facility]. ABA met with pt who confirms plan to return to [place] at discharge. Pt states he has no concerns with transportation. Pt is ready for discharge at this time. Phone call to [facility] and spoke to Kemi and informed pt will be returning. DC orders faxed. Disposition: Return to [facility] ARABELLA Lehman
== END 2025-05-04 15:07 | disposition home or self-care (01) | DRG 866 ==
LOC: ED 20:21 → MS3 20:34
PROVIDERS: Admitting Provider Internal Medicine; Emergency Provider Emergency Medicine; PCP Family Medicine
DX: B34.8 Other viral infections of unspecified site (principal); C78.00 Secondary malignant neoplasm of unspecified lung; C78.7 Secondary malignant neoplasm of liver and intrahepatic bile duct; E87.21 Acute metabolic acidosis; N18.4 Chronic kidney disease, stage 4 (severe); I24.89 Other forms of acute ischemic heart disease; N13.8 Other obstructive and reflux uropathy; D64.9 Anemia, unspecified; C43.71 Malignant melanoma of right lower limb, including hip; Z66 Do not resuscitate; I12.9 Hypertensive chronic kidney disease with stage 1 through stage 4 chronic kidney disease, or unspecified chronic kidney disease; E03.9 Hypothyroidism, unspecified; E66.9 Obesity, unspecified; I48.0 Paroxysmal atrial fibrillation; E78.00 Pure hypercholesterolemia, unspecified; K21.9 Gastro-esophageal reflux disease without esophagitis; N40.1 Benign prostatic hyperplasia with lower urinary tract symptoms; R60.0 Localized edema; Z68.30 Body mass index [BMI] 30.0-30.9, adult; Z79.01 Long term (current) use of anticoagulants; Z79.890 Hormone replacement therapy; Z79.899 Other long term (current) drug therapy; Z87.891 Personal history of nicotine dependence
CPT/HCPCS: 36415; 36591; 71046; 71250; 74176; 80048; 80053; 80202; 81001; 82607; 82728; 82746; 83540; 83550; 83605; 83735; 84100; 84439; 84443; 84481; 84484; 85025; 85610; 85730; 87040; 87070; 87086; 87088; 87205; 87449; 87631; 87633; 93005; 93970; 94640; 94668; 94760; 97161; 97165; 99283; 99285; A4216

== ENCOUNTER 2025-05-21 08:24 | Outpatient (RCR) | payer MEDICARE, SELFPAY | END 2025-05-28 23:59 | LOC: NS 08:24 | PROVIDERS: PCP Family Medicine; Referring Provider Family Medicine; Visit Provider Family Medicine | DX: Z71.3 Dietary counseling and surveillance (principal); N18.4 Chronic kidney disease, stage 4 (severe) | CPT/HCPCS: 97802 ==